=== PATIENT | female | born 2000 | race Caucasian/White ===

== ENCOUNTER 2023-10-23 09:07 | Outpatient (OUT) | payer BC, SELFPAY ==
--- NOTE | 2023-10-23 09:13 | US_ITS ---
The [address] [address] Patient Name: ÁNGEL EVANS MRN: [id number] date: 2000 Sex: F Assigned Patient Location: [facility] Current Patient Location: [facility] Accession/Order Number: [id number] Exam Date: 10/23/2023 09:13 Report Date: 10/23/2023 10:54 At the request of: PARTHA COSME Procedure: US OB transvaginal EXAMINATION: US OB transvaginal HISTORY: MISSED MENSES COMPARISON: No relevant comparison available. FINDINGS: GESTATIONAL SAC: 11 mm fluid collection within the upper endometrial cavity suspected to represent a gestational sac. YOLK SAC: Absent POLE: Absent CARDIAC: Absent UTERUS: Thickened heterogeneous endometrium. OVARIES: Right: Normal. Left: Normal. CERVIX: 3.2 cm in length and closed. CUL-DE-SAC: Normal. OTHER: None. AGE BY LMP: 8 weeks 4 days YUE BY LMP: 05/30/2026 AGE BY US CRL: Not applicable YUE BY US CRL: US/US OB transvaginal IMPRESSION: 1. Suspect very early intrauterine versus blighted ovum. Follow-up recommended. Electronically authenticated by: KAYLA DE LA O Date: 10/23/2023 10:54
== END 2023-10-23 09:08 | disposition home or self-care (01) ==
LOC: NOMS 09:07
PROVIDERS: Visit Provider Obstetrics & Gynecology
DX: N92.6 Irregular menstruation, unspecified (principal)
CPT/HCPCS: 76817

== ENCOUNTER 2023-10-23 09:51 | Outpatient (OUT) | payer BC, SELFPAY ==
[2023-10-23 12:22] LABS: HCG Quantitative 29297 mIU/mL
== END 2023-10-23 09:52 | disposition home or self-care (01) ==
LOC: LAB 09:52
PROVIDERS: Visit Provider Obstetrics & Gynecology
DX: N92.6 Irregular menstruation, unspecified (principal)
CPT/HCPCS: 36415; 76817; 84702

== ENCOUNTER 2023-10-26 09:46 | Outpatient (OUT) | payer BC, SELFPAY ==
--- OUTSIDE RECORDS SUMMARY | 2023-10-26 10:01 | XMS_ITS | CCD ---
Author Organization [facility] CliniSyri Care Team Providers Care Drawer Hardware Worker Name Role Phone AICHHOLZ, FRONT OFFICE MANAGER LLUVIA Primary Care Unavailable KOFI CURRIE Consulting Unavailable KOFI CURRIE Admitting Unavailable KOFI CURRIE Attending Unavailable AICHHOLZ, FRONT OFFICE MANAGER LLUVIA Primary Care Unavailable QUIQUE, DR KECIA Devi Consulting Unavailable KOFI CURRIE Attending Unavailable KOFI CURRIE Admitting Unavailable KOFI CURRIE Consulting Unavailable KOFI CURRIE Attending Unavailable MISC, DOCTOR Referring Unavailable AICHHOLZ, FRONT OFFICE MANAGER LLUVIA Primary Care Unavailable KOFI CURRIE Consulting Unavailable KOFI CURRIE Admitting Unavailable KARASIK, DR STRONG Attending Unavailable AICHHOLZ, FRONT OFFICE MANAGER LLUVIA Primary Care Unavailable KARASIK, DR STRONG Consulting Unavailable KARASIK, DR STRONG Admitting Unavailable KARASIK, DR STRONG Procedure Practitioner Unava ilable KOFI CURRIE Consulting Unavailable KOFI CURRIE Attending Unavailable AICHHOLZ, FRONT OFFICE MANAGER LLUVIA Primary Care Unavailable KOFI CURRIE Admitting Unavailable AICHHOLZ, FRONT OFFICE MANAGER LLUVIA Primary Care Unavailable KARASIK, DR STRONG Consulting Unavailable KARASIK, DR STRONG Admitting Unavailable KARASIK, DR STRONG Attending Unavailable KOFI CURRIE Consulting Unavailable KOFI CURRIE Attending Unavailable AICHHOLZ, FRONT OFFICE MANAGER [place]UVIA Primary Care Unavailable KOFI CURRIE Admitting Unavailable AICHHOLZ, FRONT OFFICE MANAGER [place]IA Primary Care Unavailable KOFI CURRIE Consulting Unavailable KOFI CURRIE Admitting Unavailable KOFI CURRIE Attending Unavailable AICHHOLZ, FRONT OFFICE MANAGER [place]IA Admitting Unavailable AICHHOLZ, FRONT OFFICE MANAGER [place]UVIA Attending Unavailable AICHHOLZ, FRONT OFFICE MANAGER [place]IA Consulting Unavailable AICHHOLZ, FRONT OFFICE MANAGER LLUVIA Primary Care Unavailable Unavailable Primary Care Provider Unavailabl e Unallocated, Noms Provider Primary Care Provider MD Nils Sarkar Attending Provider [phone] NO FAMILY, PHYSICIAN Primary Care Provider Unava ilable Nils Sarkar Admitting Unavailable Nils Sarkar Attending Unavailable NO FAMILY, PHYSICIAN Primary Care Unavailable Nils Sarkar Admitting Unavailable Nils Sarkar Attending Unavailable NO FAMILY, PHYSICIAN Primary Care Unavailable NILS SARKAR Attending Unavailable NILS SARKAR Attending Unavailable NILS SARKAR Attending Unavailable NILS SARKAR Attending Unavailable Medications Current Medications Medication Drug Class(es) Dates Sig (Normalized) Sig (Original) doxycycline hyclate 100 mg oral tablet (2 sources) Tetracycline-class Drug Start: 04-24-2023 take 100 mg by mouth twice daily Doxycycline Hyclate Active 100 MG PO Twice daily April 24, 2023 12:00am ibuprofen 800 mg oral tablet (2 sources) Nonsteroidal Anti-inflammatory Drug Start: 04-24-2023 take 800 mg by mouth every six hours Ibuprofen Active 800 MG PO Every 6 hours April 24, 2023 12:00am ondansetron 4 mg oral tablet (2 sources) Serotonin-3 Receptor Antagonist Start: 04-14-2023 take 1 tablet by mouth every six hours as needed for nausea and nausea and nausea ondansetron (Zofran) 4 MG tablet Indications: Nausea Take 1 tablet (4 mg) by mouth every 6 (six) hours if needed for nausea for up to 20 doses 20 tablet 0 04/14/2023 Active Completed/Discontinued Medications Medication Drug Class(es) Dates Sig (Normalized) Sig (Original) 27-1 MG tablet (3 sources) End: 04-20-2023 take 1 tablet by mouth in the morning 27-1 MG tablet Indications: Take 1 tablet by mouth in the morning. 0 04/20/2023 Discontinued (Therapy completed) take 1 tablet by mouth in the mo rning 27-1 MG tablet Indications: Take 1 tablet by mouth in the morning. 0 Active Problems Active Problems Problem Classification Problem Date Documented Date Episodic/Chronic Conditions associated with dizziness or vertigo (1 source) Dizziness and giddiness; Translations: [DIZZINESS AND GIDDINESS] Onset: 09-04-2020 Episodic Hemorrhage during ; abruptio placenta; placenta previa (2 sources) Antepartum hemorrhage; Translations: [Hemorrhage in early , unspecified] 04-20-2023 Episodic Mood disorders (1 source) Major depressive disorder, single episode, unspecified; Translations: [SOHA DEPRESS D/O SINGLE EPIS UNS] Onset: 10-05-2020 Chronic OB-related trauma to perineum and vulva (1 source) First degree perineal laceration during delivery; Translations: [FIRST DEG PERINEAL LAC DUR DELIV] Onset: 10-05-2020 Episodic Other complications of ; puerperium affecting management of mother (1 source) Obesity complicating childbirth; Translations: [OBESITY COMPLICATING CHILDBIRTH] Onset: 10-05-2020 Chronic Other complications of ; puerperium affecting management of mother (1 source) Other mental disorders complicating childbirth; Translations: [OTH MENTAL D/O COMP CHILDBIRTH] Onset: 10-05-2020 Episodic Other complications of (2 sources) Obesity complicating , third trimester; Translations: [OBESITY COMP THIRD TRI] Onset: 10-01-2020 Chronic Other complications of (4 sources) Abnormal hematological finding on screening of mother; Translations: [ABN HEMATOLOG SCREEN MOM] Onset: 09-12-2020 Episodic Other complications of (4 sources) Other specified related conditions, third trimester; Translations: [OTH SPEC PREG RELATED COND 3RD TRI] Onset: 09-06-2020 Episodic Other complications of (3 sources) Missed miscarriage; Translations: [Missed ] Onset: 04-24-2023 04-20-2023 Episodic Other female genital disorders (1 source) Vaginal bleeding; Translations: [Abnormal uterine and vaginal bleeding, unspecified] 04-29-2023 Chronic Other female genital disorders (2 sources) Abnormal uterine and vaginal bleeding, unspecified; Translations: [Other specified noninflammatory disorders of vagina] Onset: 04-29-2023 04-30-2023 Chronic Other female genital disorders (1 source) Other specified noninflammatory disorders of vagina; Translations: [OTH SPEC NONINFLAMMATORY D/O VAGINA] Onset: 09-14-2020 Episodic Other female genital disorders (2 sources) Vaginal discharge; Translations: [Other specified noninflammatory disorders of vagina] 04-20-2023 Episodic Other nutritional; endocrine; and metabolic disorders (1 source) Obesity, unspecified; Translations: [OBESITY UNSPECIFIED] Onset: 10-05-2020 Chronic Other and delivery including normal (9 sources) Encounter for routine follow-up; Translations: [Single live ] Onset: 09-10-2020 Episodic Residual codes; unclassified (1 source) 39 weeks gestation of ; Translations: [39 WEEKS GESTATION OF ] Onset: 10-05-2020 Episodic Residual codes; unclassified (1 source) 35 weeks gestation of ; Translations: [35 WEEKS GESTATION OF ] Onset: 09-04-2020 Episodic Residual codes; unclassified (1 source) 30 weeks gestation of ; Translations: [30 WEEKS GESTATION OF ] Onset: 08-24-2020 Episodic Spontaneous (1 source) Delayed or excessive hemorrhage following incomplete spontaneous ; Translations: [Delayed or excessive hemorrhage following incomplete spontaneous ] Onset: 04-29-2023 Episodic Unclassified (1 source) CONTACT W/AND (SUSP) EXPOS COVID-19; Translations: [CONTACT W/AND (SUSP) EXPOS COVID-19] Onset: 10-05-2020 Past or Other Problems Problem Classification Problem Date Documented Da te Episodic/Chronic Deficiency and other anemia (4 sources) Anemia, unspecified; Translations: [ANEMIA UNSPECIFIED] Onset: 12-17-2019 Episodic Results Test Name Value Interpretation Reference Range Facility Basophils Auto (Bld) [#/Vol] Ordered By: CHUCK Sarkar on 04-30-2023 Basophils (Bld) [#/Vol] 0.1 10*3/uL 0.0-0.2 [facility] Basophils/100 WBC Auto (Bld) Ordered By: CHUCK Sarkar on 04-30-2023 Basophils/100 WBC (Bld) 0.7 % . [facility] Choriogonadotropin.beta subu nit [Units/volume] in Serum or PlasmaOrdered By: SHANNON Sarkar on 04-30-2023 HCG.beta subunit Qn 2358.00 m[IU]/mL [facility] Comment on above: Approximate Approxim ate hCG Gestational Age Range (mIU/ml) (weeks)0.2-1 5-50 1-2 50-500 2-3 100-5,000 3-4 500-10,000 4-5 1,000-50,000 5-6 10,000-100,000 6-8 15,000-200,000 8-12 10,000-100,000 Complete Blood Count Auto Di ffon 04-30-2023 Basophils (Bld) [#/Vol] 0.1 10*3/uL Normal 0.0-0.2 [facility] Comment on above: Result Comment: PERF ORMED BY: [place] [address] PATHOLOGIST RADIO PERFORMER CHUY PALOMO M.D. Performed By: #### C BC, HCGQNT #### [facility] [address] Basophils/100 WBC (Bld) 0.7 % Normal . [facility] Comment on above: Performed By: #### C BC, HCGQNT #### [facility] [address] [place] [address] [place] Eosinophils (Bld) [#/Vol] 0.1 10*3/uL Normal 0.0-0.45 [facility] Comment on above: Performed By: #### C BC, HCGQNT #### [address] Eosinophils/100 WBC (Bld) 1.3 % Normal . [facility] Comment on above: Performed By: #### C BC, HCGQNT #### [address] Erythrocyte distribution width (RBC) [Ratio] 14.1 % Normal 11.9-15.3 [facility] Comment on above: Performed By: #### C BC, HCGQNT #### [address] Hematocrit (Bld) [Volume fraction] 35.3 % Normal 34.0-46.4 [facility] Comment on above: Performed By: #### C BC, HCGQNT #### [address] Hemoglobin (Bld) [Mass/Vol] 12.2 g/dL Normal 11.8-15.4 [facility] Comment on above: Performed By: #### C BC, HCGQNT #### [place] [address] [place] Lymphocytes (Bld) [#/Vol] 2.4 10*3/uL Normal 1.00-4.8 [facility] Comment on above: Performed By: #### C BC, HCGQNT #### [facility] [address] Lymphocytes/100 WBC (Bld) 28.7 % Normal . [facility] Comment on above: Performed By: #### C BC, HCGQNT #### [facility] [address] MCH (RBC) [Entitic mass] 27.8 pg Normal 24.7-34.3 [facility] Comment on above: Performed By: #### C BC, HCGQNT #### [address] MCV (RBC) [Entitic vol] 80.2 fL Normal 80-100 [facility] Comment on above: Performed By: #### C BC, HCGQNT #### [address] Mean Corpuscular HGB Conc 34.7 g/dL Normal 32.0-35.0 [facility] Comment on above: Performed By: #### C BC, HCGQNT #### [place] [address] [place] Monocytes (Bld) [#/Vol] 0.5 10*3/uL Normal 0.0-0.8 [facility] Comment on above: Performed By: #### C BC, HCGQNT #### [place] [address] [place] Monocytes/100 WBC (Bld) 6.3 % Normal . [facility] Comment on above: Performed By: #### C BC, HCGQNT #### [place] [address] [place] Neutrophils (Bld) [#/Vol] 5.3 10*3/uL Normal 1.8-7.7 [facility] Comment on above: Performed By: #### C BC, HCGQNT #### [place] [address] [place] Neutrophils/100 WBC (Bld) 63.0 % Normal . [facility] Comment on above: Performed By: #### C BC HCGQNT #### [address] NRBC% 0.1 /100{WBC} Normal 0-0.5 [facility] Comment on above: Performed By: #### C BC HCGQNT #### [address] Platelet mean volume (Bld) [Entitic vol] 6.7 fL Normal 6.3-10.7 [facility] Comment on above: Performed By: #### C BC HCGQNT #### [address] Platelets (Bld) [#/Vol] 317 10*3/uL Normal 150-450 [facility] Comment on above: Performed By: #### C BC HCGQNT #### [address] RBC (Bld) [#/Vol] 4.40 10*6/uL Normal 3.60-5.00 [facility] Comment on above: Performed By: #### C BC HCGQNT #### [address] WBC (Bld) [#/Vol] 8.4 10*3/uL Normal 3.8-11.6 [facility] Comment on above: Performed By: #### C BC, HCGQNT #### [place] [address] [place] Eosinophils Auto (Bld) [#/Vo l]Ordered By: CHUCK Sarkar on 04-30-2023 Eosinophils (Bld) [#/Vol] 0.1 10*3/uL 0.0-0.45 [facility] Eosinophils/100 WBC Auto (Bl d)Ordered By: CHUCK Sarkar on 04-30-2023 Eosinophils/100 WBC (Bld) 1.3 % . [facility] Erythrocyte distribution wid th Auto (RBC) [Ratio]Ordered By: CHUCK Sarkar on 04-30-2023 Erythrocyte distribution width (RBC) [Ratio] 14.1 % 11.9-15.3 [facility] HCG,Quantitativeon 4 HCG,Quantitative 2358.00 m[iU]/mL Normal [facility] Comment on above: Result Comment: Appr oximate Approximate hCG Gestational Age Range (mIU/ml) (weeks) 0.2-1 5-50 1-2 50-500 2-3 100-5,000 3-4 500-10,000 4-5 1,000-50,000 5-6 10,000-100,000 6-8 15,000-200,000 8-12 10,000-100,000 PERFORMED BY: [place] [address] PATHOLOGIST RADIO PERFORMER CHUY PALOMO M.D. Performed By: #### C BC, HCGQNT #### [facility] [address] [place] [address] Hematocrit Auto (Bld) [Volum e fraction]Ordered By: CHUCK Sarkar on 04-30-2023 Hematocrit (Bld) [Volume fraction] 35.3 % 34.0-46.4 [facility] Hemoglobin [Mass/volume] in BloodOrdered By: CHUCK Sarkar on 04-30-2023 Hemoglobin (Bld) [Mass/Vol] 12.2 g/dL 11.8-15.4 [facility] Leif 04-30-2023 L Specimen: [id number] Received: 04/30/23 Status: RUBINA Sharpe Num: [id number] Spec Type: Surgical Subm Dr: CHUCK Astorga Tissues: A Products of Conception - Spontaneous or Missed (PRODUCTS OF CONCEPT Procedures: HE/3, Gross/Micro L4 Age/ Patient Sex Location Account Attending Physician Sarah Arce 23/F N3 [id number] CHUCK Astorga SPEC NUM: [id number] RECD: 04/30/23 STATUS: RUBINA SHARPE NUM: [id number] MARY: 04/30/23- SUBM DR: CHUCK Astorga ENTERED: 04/30/23 [facility] DR: SPEC TYPE: Surgical DEPT: S ORDERED: HE/3, Gross/Micro L4 ORDERED: HE/3, Gross/Micro L4 Pathological Diagnosis Products Of Conception: Partially necrotic Decidua, Consistent With Products Of Conception. Clinical Information Retained tissue Gross Description Received in formalin labeled with the patient's name, date of and products of conception is a 5.5 x 4 x 2 cm aggregate of pink-jasmine to red-brown soft tissue and blood clot. Villous tissue is tentatively identified. tissue is not identified. Domain Architect sections focused on potential villi. Domain Architect sections are submitted in three cassettes labeled A1-A3. CPT Codes 32757 Specimen: [id number] Received: 04/30/23 Status: RUBINA Sharpe Num: [id number] Spec Type: Surgical Subm Dr: CHUCK Astorga Tissues: A Products of Conception - Spontaneous or Missed (PRODUCTS OF CONCEPT Procedures: HE/3, Gross/Micro L4 Patient: Sarah Arce [id number] (Continued) Signed (signatur e on file) Tavia Abad MD 05/05/23 2315 Normal [facility] Leukocytes [#/volume] correc bridget for nucleated erythrocytes in Blood by Automated counOrdered By: CHUCK Sarkar on 04-30-2023 WBC corrected for nucl RBC Auto (Bld) [#/Vol] 8.4 10*3/uL 3.8-11.6 [facility] Lymphocytes Auto (Bld) [#/Vo l]Ordered By: CHUCK Sarkar on 04-30-2023 Lymphocytes (Bld) [#/Vol] 2.4 10*3/uL 1.00-4.8 [facility] Lymphocytes/100 WBC Auto (Bl d)Ordered By: CHUCK Sarkar on 04-30-2023 Lymphocytes/100 WBC (Bld) 28.7 % . [facility] MCH Auto (RBC) [Entitic mass ]Ordered By: CHUCK Sarkar on 04-30-2023 MCH (RBC) [Entitic mass] 27.8 pg 24.7-34.3 [facility] MCHC Auto (RBC) [Mass/Vol]Or dered By: CHUCK Sarkar on 04-30-2023 MCHC (RBC) [Mass/Vol] 34.7 g/dL 32.0-35.0 [facility] MCV Auto (RBC) [Entitic vol] Ordered By: CHUCK Sarkar on 04-30-2023 MCV (RBC) [Entitic vol] 80.2 fL 80-100 [facility] Monocytes Auto (Bld) [#/Vol] Ordered By: CHUCK Sarkar on 04-30-2023 Monocytes (Bld) [#/Vol] 0.5 10*3/uL 0.0-0.8 [facility] Monocytes/100 WBC Auto (Bld) Ordered By: CHUCK Sarkar on 04-30-2023 Monocytes/100 WBC (Bld) 6.3 % . [facility] Neutrophils Auto (Bld) [#/Vo l]Ordered By: CHUCK Sarkar on 04-30-2023 Neutrophils (Bld) [#/Vol] 5.3 10*3/uL 1.8-7.7 [facility] Neutrophils/100 WBC Auto (Bl d)Ordered By: CHUCK Sarkar on 04-30-2023 Neutrophils/100 WBC (Bld) 63.0 % . [facility] Nucleated erythrocytes [Pres ence] in Blood by Automated countOrdered By: CHUCK Sarkar on 04-30-2023 Nucleated RBC Auto Ql (Bld) 0.1 /100{WBC} 0-0.5 [facility] Platelet mean volume Auto (B ld) [Entitic vol]Ordered By: CHUCK Sarkar on 04-30-2023 Platelet mean volume (Bld) [Entitic vol] 6.7 fL 6.3-10.7 [facility] Platelets Auto (Bld) [#/Vol] Ordered By: CHUCK Sarkar on 04-30-2023 Platelets (Bld) [#/Vol] 317 10*3/uL 150-450 [facility] RBC Auto (Bld) [#/Vol]Ordere d By: CHUCK Sarkar on 04-30-2023 RBC (Bld) [#/Vol] 4.40 10*6/uL 3.60-5.00 [facility] US transvaginalon 04-30-2023 US transvaginal [facility] [place] [address] Ultrasound Report Signed Patient: Sarah Arce MR#: [id number] : 2000 Acct:[id number] Age/Sex: 23 / F ADM Date: 04/29/23 Loc: Room: [address] [place] [address] Type: REG CLI Attending Dr: Nils Sarkar MD Ordering Provider: CHUCK Astorga Date of Service: 04/30/23 US/US pelvic complete: D and C scheduled ([id number]) US/US transvaginal: PRODUCTS OF CONCEPTION WITH PRIOR D AND c Copies to: CHUCK Astorga TRANSABDOMINAL AND TRANSVAGINAL PELVIC ULTRASOUND FINDINGS: The uterus measures 10.4 x 5.5 x 6.3 cm. No uterine lesion identified. The endometrium has a total combined thickness of 22mm. Endometrium is heterogeneous with vascularity. The RIGHT ovary measures 2.4 x 1.1 x 2.5 cm LEFT ovary measures 3.0 x 1.4 x 2.3 cm Bilateral ovarian blood flow identified. No free fluid identified. There is no adnexal mass identified. US/US pelvic complete IMPRESSION: 22 mm thick endometrial complex. Impression dictated by: Usama Peña M.D.04/30/2023 9:37 AM Dictation Location: [place] [address] Tech: Anca Carpio Transcribed By: GISSEL 04/30/2337 Dictated By: Usama Peña DO 04/30/23 0933 Signed By: 04/30/23 0937 Normal [facility] WBC Auto (Bld) [#/Vol]Ordere d By: CHUCK Sarkar on 04-30-2023 WBC (Bld) [#/Vol] 8.4 10*3/uL 3.8-11.6 [facility] ABO/Rh Retypeon 04-29-2023 ABO/RH Recheck Result Positive Normal [facility] Comment on above: Result Comment: PERF ORMED BY: [facility] [address] [place] [address] PATHOLOGIST RADIO PERFORMER CHUY PALOMO M.D. Complete Blood Count Auto Di ffon 04-29-2023 Basophils (Bld) [#/Vol] 0.0 10*3/uL Normal 0.0-0.2 [facility] Comment on above: Result Comment: PERF ORMED BY: [place] [address] PATHOLOGIST RADIO PERFORMER CHUY PLAOMO M.D. Performed By: #### H CGQNT, CBC #### [facility] [address] [place] [address] Basophils/100 WBC (Bld) 0.3 % Normal . [facility] Comment on above: Performed By: #### H CGQNT, CBC #### [facility] [address] [place] [address] Eosinophils (Bld) [#/Vol] 0.2 10*3/uL Normal 0.0-0.45 [facility] Comment on above: Performed By: #### H CGQNT, CBC #### [address] Eosinophils/100 WBC (Bld) 1.1 % Normal . [facility] Comment on above: Performed By: #### H CGQNT, CBC #### [facility] [address] [place] [address] Erythrocyte distribution width (RBC) [Ratio] 13.9 % Normal 11.9-15.3 [facility] Comment on above: Performed By: #### H CGQNT, CBC #### [address] Hematocrit (Bld) [Volume fraction] 39.8 % Normal 34.0-46.4 [facility] Comment on above: Performed By: #### H CGQNT, CBC #### [facility] [address] [place] [address] [place] Hemoglobin (Bld) [Mass/Vol] 13.3 g/dL Normal 11.8-15.4 [facility] Comment on above: Performed By: #### H CGQNT, CBC #### [facility] [address] [place] [address] [place] Lymphocytes (Bld) [#/Vol] 2.3 10*3/uL Normal 1.00-4.8 [facility] Comment on above: Performed By: #### H CGQNT, CBC #### [facility] [address] Lymphocytes/100 WBC (Bld) 17.0 % Normal . [facility] Comment on above: Performed By: #### H CGQNT, CBC #### [facility] [address] MCH (RBC) [Entitic mass] 27.0 pg Normal 24.7-34.3 [facility] Comment on above: Performed By: #### H CGQNT, CBC #### [address] MCV (RBC) [Entitic vol] 80.8 fL Normal 80-100 [facility] Comment on above: Performed By: #### H CGQNT, CBC #### [address] Mean Corpuscular HGB Conc 33.5 g/dL Normal 32.0-35.0 [facility] Comment on above: Performed By: #### H CGQNT, CBC #### [place] [address] [place] Monocytes (Bld) [#/Vol] 0.5 10*3/uL Normal 0.0-0.8 [facility] Comment on above: Performed By: #### H CGQNT, CBC #### [place] [address] [place] Monocytes/100 WBC (Bld) 4.0 % Normal . [facility] Comment on above: Performed By: #### H CGQNT, CBC #### [facility] [address] [place] [address] [place] Neutrophils (Bld) [#/Vol] 10.6 10*3/uL High 1.8-7.7 [facility] Comment on above: Performed By: #### H CGQNT, CBC #### [place] [address] [place] Neutrophils/100 WBC (Bld) 77.6 % Normal . [facility] Comment on above: Performed By: #### H CGQNT, CBC #### [address] NRBC% 0.2 /100{WBC} Normal 0-0.5 [facility] Comment on above: Performed By: #### H CGQNT, CBC #### [address] Platelet mean volume (Bld) [Entitic vol] 7.0 fL Normal 6.3-10.7 [facility] Comment on above: Performed By: #### H CGQNT, CBC #### [address] Platelets (Bld) [#/Vol] 369 10*3/uL Normal 150-450 [facility] Comment on above: Performed By: #### H CGQNT, CBC #### [address] RBC (Bld) [#/Vol] 4.93 10*6/uL Normal 3.60-5.00 [facility] Comment on above: Performed By: #### H CGQNT, CBC #### [address] WBC (Bld) [#/Vol] 13.6 10*3/uL High 3.8-11.6 [facility] Comment on above: Performed By: #### H CGQNT, CBC #### [address] HCG,Quantitativeon 4 HCG,Quantitative 3230.00 m[iU]/mL Normal [facility] Comment on above: Result Comment: Appr oximate Approximate hCG Gestational Age Range (mIU/ml) (weeks) 0.2-1 5-50 1-2 50-500 2-3 100-5,000 3-4 500-10,000 4-5 1,000-50,000 5-6 10,000-100,000 6-8 15,000-200,000 8-12 10,000-100,000 PERFORMED BY: [address] [place] [address] PATHOLOGIST RADIO PERFORMER CHUY PALOMO M.D. Performed By: #### H CGQNT, CBC #### [facility] [address] [place] [id number] [place] Type and Screenon 04-29-2023 ABO and Rh group Nom (Bld) Blood group A Rh(D) positive Normal [facility] Leif 04-24-2023 L Specimen: [id number] Received: 04/24/23 Status: RUBINA Renahun Num: [id number] Spec Type: Surgical Subm Dr: CHUCK Astorga Tissues: A Products of Conception - Spontaneous or Missed (POC) Procedures: HE/3, Gross/Micro L4 Age/ Patient Sex Location Account Attending Physician Sarah Arce 23/F [place] [id number] MICHELE AstorgaS SPEC NUM: [id number] RECD: 04/24/23 STATUS: RUBINA SHARPE NUM: [id number] MARY: 04/24/23- SUBM DR: CHUCK Astorga ENTERED: 04/24/23 [facility] DR: SPEC TYPE: Surgical DEPT: S ENTERED BY: [id number] RECV BY: [id number] ORDERED: HE/3, Gross/Micro L4 ORDERED: HE/3, Gross/Micro L4 Pathological Diagnosis Products Of Conception: Immature Chorionic Villi And Tissues, Consistent With Products Of Conception. Clinical Information Retained products of conception Gross Description Received in formalin labeled with the patient's name, date of and products of conception is a 12 x 7 x 2.5 cm aggregate of pink-jasmine to red-brown soft tissue. Villous tissue and tissue are identified. Among the tissue fragments is a foot length of 0.7 cm from heel-to-toe. Domain Architect sections are submitted in 3 cassettes as follows: A1-A2 - Villous tissue A3 - tissue CPT Codes 51459 Specimen: [id number] Received: 04/24/23-1156 Status: RUBINA Sharpe Num: [id number] Spec Type: Surgical Subm Dr: Nils Sarkar MD-NOMS Tissues: A Products of Conception - Spontaneous or Missed (POC) Procedures: HE/3, Michael/Lydia L4 Patient: Sarah Arce [id number] (Continued) Signed (signatur e on file) Tavia Abad MD 04/28/232320 [facility] CBC AUTO DIFFon 10-02-2020 BASO # 0.0 103/ul Normal 0.0-0.1 [facility] Comment on above: Performed By: #### U LYDIA, UAIND #### [facility] [address] [place] [address] Vandana Indira Basophils/100 WBC (Bld) 0.1 % Critically low 0.2-2.0 [facility] Comment on above: Performed By: #### U MICRO, UACSIND #### [facility] [address] [place] [address] Vandana Indira EO # 0.0 103/ul Normal 0.0-0.7 [facility] Comment on above: Performed By: #### U MICRO, UACSIND #### [facility] [address] [place] [address] Vandana Indira Eosinophils/100 WBC (Bld) 0.0 % Critically low 0.9-7.0 [facility] Comment on above: Performed By: #### U MICRO, UACSIND #### [facility] [address] [place] [address] Vandanadave Jacobson Erythrocyte distribution width (RBC) [Ratio] 15.9 % Critically high 11.0-15.0 [facility] Comment on above: Performed By: #### U MICRO, UACSIND #### [facility] [address] [place] [address] Vandana Indira Hematocrit (Bld) [Volume fraction] 33.3 % Critically low 36.0-48.0 [facility] Comment on above: Performed By: #### U MICRO, UACSIND #### [facility] [address] [place] [address] Vandana Indira Hemoglobin (Bld) [Mass/Vol] 11.2 g/dL Critically low 12.0-16.0 [facility] Comment on above: Performed By: #### U MICRO, UACSIND #### [facility] [address] [place] [address] Vandana Indira IG # 0.07 10e3/ul Critically high 0.00-0.03 [facility] Comment on above: Performed By: #### U MICRO, UACSIND #### [facility] [address] [place] [address] Vandana Indira IG % 0.4 % Normal 0.0-0.5 [facility] Comment on above: Performed By: #### U MICRO, UACSIND #### [facility] [address] [id number] Vandana Indira LYMPH # 1.9 103/ul Normal 1.2-3.8 [facility] Comment on above: Performed By: #### U MICRO, UACSIND #### [facility] [address] [id number] Vandana Indira Lymphocytes/100 WBC (Bld) 11.4 % Critically low 20.5-60.0 [facility] Comment on above: Performed By: #### U MICRO, UACSIND #### [facility] [address] [id number] Vandana Indira MANUAL DIFF REQ NO Normal [facility] Comment on above: Performed By: #### U MICRO, UACSIND #### [facility] [address] [place], [place] [id number] Vandana Indira MCH (RBC) [Entitic mass] 27.7 pg Normal 26.7-34.0 [facility] Comment on above: Performed By: #### U MICRO, UACSIND #### [facility] [address] [address] Vandana Indira MCHC (RBC) [Mass/Vol] 33.6 g/dL Normal 29.9-35.2 [facility] Comment on above: Performed By: #### U MICRO, UACSIND #### [facility] [address] [place], [place] [id number] Vandana Indira MCV (RBC) [Entitic vol] 82.4 fL Normal 81.0-99.0 [facility] Comment on above: Performed By: #### U MICRO, UACSIND #### [facility] [address] [id number] Vandana Indira MONO # 1.0 103/ul Critically high 0.3-0.8 [facility] Comment on above: Performed By: #### U MICRO, UACSIND #### [facility] [address] [address] Vandana Indira Monocytes/100 WBC (Bld) 6.3 % Normal 1.7-12.0 [facility] Comment on above: Performed By: #### U MICRO, UACSIND #### [facility] [address] [id number] Vandana Jacobson NEUT # 13.4 103/ul Critically high 1.4-6.5 [facility] Comment on above: Performed By: #### U MICRO, UACSIND #### [facility] [address] [id number] Vandana Jacobson Neutrophils/100 WBC (Bld) 81.8 % Critically high 43.0-75.0 [facility] Comment on above: Performed By: #### U MICRO, UACSIND #### [facility] [address] [place], [place] [id number] Vandana Jacobson Platelet mean volume (Bld) [Entitic vol] 10.3 fL Normal 9.5-13.5 [facility] Comment on above: Performed By: #### U MICRO, UACSIND #### [facility] [address] [place], [place] [id number] Vandana Jacobson PLT 202 103/ul Normal 150-450 [facility] Comment on above: Performed By: #### U MICRO, UACSIND #### [facility] [address] [place], [place] [id number] Vandana Jacobson RBC 4.04 106/ul Critically low 4.20-5.40 [facility] Comment on above: Performed By: #### U MICRO, UACSIND #### [facility] [address] [place], [place] [id number] Vandana Jacobson WBC 16.4 103/ul Critically high 4.0-11.0 [facility] Comment on above: Performed By: #### U MICRO, UACSIND #### [facility] [address] [place], [place] [id number] Vandana Jacobson ASYMPTOMATIC COVID-19 ANTIGE Non 10-01-2020 EUA Statement SEE BELOW Normal [facility] Comment on above: Result Comment: This test has not been FDA cleared or approved, but has been authorized by the FDA under an Emergency Use Authorization (EUA) for use by authorized laboratories certified under CLIA that meet the requirements to perform moderate or high complexity testing. This test has been authorized only for the detection of proteins from SARS-CoV-2, not for any other viruses or pathogens. The emergency use of this test is authorized for the duration of the declaration that circumstances exist justifying the authorization of emergency use of in vitro diagnostic tests for detection and/or diagnosis of Covid-19 under section 564(b)(1) of the Act, 21 U.S.C. 360bbb-3(b)(1), unless the declaration is terminated or authorization is revoked sooner. Performed By: #### C VDAGA #### [facility] [address] [place] [address] Vandana Jacobson SARS-CoV-2 (COVID-19) RNA RAMA+probe Ql (Unsp spec) Negative Normal NEGATIVE [facility] Comment on above: Result Comment: Nega tive results are presumptive. They do not preclude infection and should not be used as the sole basis for treatment decisions. Additional confirmatory testing by a molecular method should be considered. Performed By: #### C VDAGA #### [facility] [address] [place] [address] Vandana Indira CBC AUTO DIFFon 10-01-2020 BASO # 0.0 103/ul Normal 0.0-0.1 [facility] Comment on above: Performed By: #### D RUGRPD #### [facility] [address] [place] [address] Vandana Indira Basophils/100 WBC (Bld) 0.1 % Critically low 0.2-2.0 [facility] Comment on above: Performed By: #### D RUGRPD #### [facility] [address] [place] [address] Vandana Indira EO # 0.0 103/ul Normal 0.0-0.7 [facility] Comment on above: Performed By: #### D RUGRPD #### [facility] [address] [place], [place] [id number] Vandana Indira Eosinophils/100 WBC (Bld) 0.1 % Critically low 0.9-7.0 [facility] Comment on above: Performed By: #### D RUGRPD #### [facility] [address] [id number] Vandana Indira Erythrocyte distribution width (RBC) [Ratio] 15.8 % Critically high 11.0-15.0 [facility] Comment on above: Performed By: #### D RUGRPD #### [facility] [address] [place], [place] [phone] Vandana Indira Hematocrit (Bld) [Volume fraction] 40.2 % Normal 36.0-48.0 [facility] Comment on above: Performed By: #### D RUGRPD #### [facility] [address] [place], [place] [address] Vandana Indira Hemoglobin (Bld) [Mass/Vol] 13.4 g/dL Normal 12.0-16.0 [facility] Comment on above: Performed By: #### D RUGRPD #### [facility] [address] [place], [place] [address] Vandana Indira IG # 0.04 10e3/ul Critically high 0.00-0.03 [facility] Comment on above: Performed By: #### D RUGRPD #### [facility] [address] [place], [place] [address] Vandana Indira IG % 0.4 % Normal 0.0-0.5 [facility] Comment on above: Performed By: #### D RUGRPD #### [facility] [address] [place], [place] [address] Vandana Indira LYMPH # 1.5 103/ul Normal 1.2-3.8 [facility] Comment on above: Performed By: #### D RUGRPD #### [facility] [address] [place], [place] [address] Vandana Indira Lymphocytes/100 WBC (Bld) 14.7 % Critically low 20.5-60.0 [facility] Comment on above: Performed By: #### D RUGRPD #### [facility] [address] [place], [place] [address] Vandana Indira MANUAL DIFF REQ NO Normal [facility] Comment on above: Performed By: #### D RUGRPD #### [facility] [address], [place] [address] Vandana Jacobson MCH (RBC) [Entitic mass] 27.3 pg Normal 26.7-34.0 [facility] Comment on above: Performed By: #### D RUGRPD #### [facility] [address], [place] [address] Vandana Jacobson MCHC (RBC) [Mass/Vol] 33.3 g/dL Normal 29.9-35.2 [facility] Comment on above: Performed By: #### D RUGRPD #### [facility] [address], [place] [address] Vandanadave Jacobson MCV (RBC) [Entitic vol] 82.0 fL Normal 81.0-99.0 [facility] Comment on above: Performed By: #### D RUGRPD #### [facility] [address] [place], [place] [address] Vandana Jacobson MONO # 0.5 103/ul Normal 0.3-0.8 [facility] Comment on above: Performed By: #### D RUGRPD #### [facility] [address] [place], [place] [address] Vandana Jacobson Monocytes/100 WBC (Bld) 5.2 % Normal 1.7-12.0 [facility] Comment on above: Performed By: #### D RUGRPD #### [facility] [address] [place], [place] [address] Vandana Jacobson NEUT # 8.1 103/ul Critically high 1.4-6.5 [facility] Comment on above: Performed By: #### D RUGRPD #### [facility] [address] [place], [place] [address] Vandana Indira Neutrophils/100 WBC (Bld) 79.5 % Critically high 43.0-75.0 [facility] Comment on above: Performed By: #### D RUGRPD #### [facility] [address] [id number] Vandanadave Jacobson Platelet mean volume (Bld) [Entitic vol] 10.6 fL Normal 9.5-13.5 [facility] Comment on above: Performed By: #### D RUGRPD #### [facility] [address] [address] Vandana Indira PLT 256 103/ul Normal 150-450 [facility] Comment on above: Performed By: #### D RUGRPD #### [facility] [address] [address] Vandana Indira RBC 4.90 106/ul Normal 4.20-5.40 [facility] Comment on above: Performed By: #### D RUGRPD #### [facility] [address] [address] Vandana Indira WBC 10.2 103/ul Normal 4.0-11.0 [facility] Comment on above: Performed By: #### Ceci RUGRPD #### [facility] [address] [place] [address] Vandana Indira DRUG SCREEN RAPID (URINE)on 10-01-2020 AMP Negative Normal NEGATIVE [facility] Comment on above: Performed By: #### Ceci RUGRPD #### [facility] [address] [address] Vandana Indira BAR Negative Normal NEGATIVE [facility] Comment on above: Performed By: #### Ceci RUGRPD #### [facility] [address] [place] [address] Vandana Indira BUP Negative Normal NEGATIVE [facility] Comment on above: Performed By: #### Ceci RUGRPD #### [facility] [address] [place] [address] Vandana Indira BZO Negative Normal NEGATIVE [facility] Comment on above: Performed By: #### Ceci RUGRPD #### [facility] [address] [place] [address] Vandana Indira ROLANDA Negative Normal NEGATIVE [facility] Comment on above: Performed By: #### D RUGRPD #### [facility] [address] [place] [address] Vandana Indira CUT-OFFS SEE BELOW Normal [facility] Comment on above: Result Comment: AMP (Amphetamine): 500ng/mL, BAR (Barbituates): 200 ng/mL, BZO (Benzodiazepines): 150 ng/mL, BUP (Buprenorphine): 10 ng/mL, ROLANDA (Cocaine): 150 ng/mL, mAMP (Methamphetamine): 500 ng/mL, MTD (Methadone): 200 ng/mL, OPI (Opiates): 100 ng/mL, OXY (Oxycodone): 100 ng/mL, PCP (Phencyclidine): 25 ng/mL, PPX (Propoxyphene): 300 ng/mL, THC (Cannabinoids): 50 ng/mL, TCA (Trycyclic Antidepressants): 300 ng/mL Performed By: #### D RUGRPD #### [facility] [address] [place] [address] DRUG CUT HEADER DRUG CLASS TEST SYSTEM CUT-OFF CONCENTRATIONS ARE FOLLOWS: Normal [facility] Comment on above: Performed By: #### D RUGRPD #### [facility] [address] [place] [address] Vandana Indira mAMP Negative Normal NEGATIVE [facility] Comment on above: Performed By: #### D RUGRPD #### [facility] [address] [place] [address] Vandana Indira MTD Negative Normal NEGATIVE [facility] Comment on above: Performed By: #### D RUGRPD #### [facility] [address] [place] [address] Vandana Indira OPI Negative Normal NEGATIVE [facility] Comment on above: Performed By: #### D RUGRPD #### [facility] [address] [place] [address] Vandana Indira OXY Negative Normal NEGATIVE [facility] Comment on above: Performed By: #### D RUGRPD #### [facility] [address] [place] [address] Indira PCP Negative Normal NEGATIVE [facility] Comment on above: Performed By: #### D RUGRPD #### [facility] [address] [place] [address] Vandana Indira PPX Negative Normal NEGATIVE [facility] Comment on above: Performed By: #### D RUGRPD #### [facility] [address] [place] [address] Vandana Jacobson TCA Negative Normal NEGATIVE [facility] Comment on above: Performed By: #### D RUGRPD #### [facility] [address] [id number] Vandana Jacobson THC Negative Normal NEGATIVE [facility] Comment on above: Performed By: #### D RUGRPD #### [facility] [address], [place] [address] Vandana Jacobson TYPE AND SCREENon 10-01-2020 TYPE AND SCREEN Negative Normal [facility] Comment on above: Performed By: #### D RUGRPD #### [facility] [address], [place] [address] Vandana Jacobson US PREG GROWTHon 09-12-2020 US PREG GROWTH EXAMINATION: US PREG GROWTH HISTORY: Abnormal findings on screening of mother COMPARISON: No relevant comparison available. FINDINGS: Heart Rate: 146 Amniotic Fluid Volume: 13.5 cm Number: 1.0 Position: Cephalic presentation, longitudinal lie Maximum Vertical Pocket: 6.0 cm cm 3.4 cm cm 3.2 cm cm 0.9 cm cm BIOMETRY: BPD: 9.3 cm cm; 37 weeks 4 days; HC: 32.9 cmcm; 37 weeks 3 days AC: 33.5 cm cm; 37 weeks 2 days FL: 7.0 cm cm; 35 weeks 6 days; EFW: 6 lbs. 13 oz., 58% FL/AC: 0.095303 FL/BPD: 0.577402 HC/AC: 0.419745 GESTATIONAL AGE: Age by EDC: 36 weeks 6 days YUE by EDC: 10/04/2020 Age by US: 37 weeks 0 days YUE by US: 10/03/2020 IMPRESSION: Normal interval growth Electronically authenticated by: KECIA LEI Date: 2020-09-12 13:13 Normal [facility] HEMOGLOBINOPATHY FRACTIONATI ON CASCADEon 09-11-2020 HGB A 97.4 % Normal 96.4-98.8 [facility] Comment on above: Performed By: #### U MICRO, UACSIND #### [facility] [address] [address] Vandana Jacobson HGB A2 2.6 % Normal 1.8-3.2 [facility] Comment on above: Performed By: #### U MICRO, UACSIND #### [facility] [address] [place] [address] Vandana Jacobson HGB F 0.0 % Normal 0.0-2.0 [facility] Comment on above: Performed By: #### U MICRO, UACSIND #### [facility] [address] [address] Vandana Jacobson HGB S 0.0 % Normal 0.0 [facility] Comment on above: Performed By: #### U MICRO, UACSIND #### [facility] [address] [place], [place] [id number] Vandana Jacobson Interpretation: Comment Normal [facility] Comment on above: Result Comment: Norm al hemoglobin present; no hemoglobin variant or thalassemia observed. Performed By: #### U MICRO, UACSIND #### [facility] [address] [place] [address] Vandana Jacobson CBC AUTO DIFFon 09-10-2020 BASO # 0.0 103/ul Normal 0.0-0.1 [facility] Comment on above: Performed By: #### C BC #### [facility] [address] [place] [address] Vandana Jacobson Basophils/100 WBC (Bld) 0.1 % Critically low 0.2-2.0 [facility] Comment on above: Performed By: #### C BC #### [facility] [address] [place] [address] Vandana Jacobson EO # 0.0 103/ul Normal 0.0-0.7 [facility] Comment on above: Performed By: #### C BC #### [facility] [address] [place] [address] Vandana Jacobson Eosinophils/100 WBC (Bld) 0.4 % Critically low 0.9-7.0 [facility] Comment on above: Performed By: #### C BC #### [facility] [address] [place] [address] Vandana Lien Erythrocyte distribution width (RBC) [Ratio] 16.0 % Critically high 11.0-15.0 [facility] Comment on above: Performed By: #### C BC #### [facility] [address] [place] [address] Vandana Jacobson Hematocrit (Bld) [Volume fraction] 36.5 % Normal 36.0-48.0 [facility] Comment on above: Performed By: #### C BC #### [facility] [address] [place] [address] Vandana Jacobson Hemoglobin (Bld) [Mass/Vol] 12.2 g/dL Normal 12.0-16.0 [facility] Comment on above: Performed By: #### C BC #### [facility] [address] [place] [address] Vandana Jacobson IG # 0.07 10e3/ul Critically high 0.00-0.03 [facility] Comment on above: Performed By: #### C BC #### [facility] [address] [place] [address] Vandana Jacobson IG % 0.9 % Critically high 0.0-0.5 [facility] Comment on above: Performed By: #### C BC #### [facility] [address] [place] [address] Vandana Jacobson LYMPH # 1.9 103/ul Normal 1.2-3.8 [facility] Comment on above: Performed By: #### C BC #### [facility] [address] [place] [address] Vandana Jacobson Lymphocytes/100 WBC (Bld) 23.7 % Normal 20.5-60.0 [facility] Comment on above: Performed By: #### C BC #### [facility] [address] [place], [place] [id number] Vandana Jacobson MANUAL DIFF REQ NO Normal [facility] Comment on above: Performed By: #### C BC #### [facility] [address] [place], [place] [address] Vandana Jacobson MCH (RBC) [Entitic mass] 27.4 pg Normal 26.7-34.0 [facility] Comment on above: Performed By: #### C BC #### [facility] [address], [place] [address] Vandanadave Jacobson MCHC (RBC) [Mass/Vol] 33.4 g/dL Normal 29.9-35.2 [facility] Comment on above: Performed By: #### C BC #### [facility] [address], [place] [address] Vandana Indira MCV (RBC) [Entitic vol] 82.0 fL Normal 81.0-99.0 [facility] Comment on above: Performed By: #### C BC #### [facility] [address] [id number] Vandana Indira MONO # 0.7 103/ul Normal 0.3-0.8 [facility] Comment on above: Performed By: #### C BC #### [facility] [address] [place], [place] [address] Vandana Indira Monocytes/100 WBC (Bld) 8.8 % Normal 1.7-12.0 [facility] Comment on above: Performed By: #### C BC #### [facility] [address] [place], [place] [address] Vandana Indira NEUT # 5.3 103/ul Normal 1.4-6.5 [facility] Comment on above: Performed By: #### C BC #### [facility] [address] [place], [place] [address] Vandana Indira Neutrophils/100 WBC (Bld) 66.1 % Normal 43.0-75.0 [facility] Comment on above: Performed By: #### C BC #### [facility] [address] [place] [address] Vandana Indira Platelet mean volume (Bld) [Entitic vol] 11.6 fL Normal 9.5-13.5 [facility] Comment on above: Performed By: #### C BC #### [facility] [address] [id number] Vandana Indira PLT 221 103/ul Normal 150-450 [facility] Comment on above: Performed By: #### C BC #### [facility] [address] [place] [address] Vandana Jacobson RBC 4.45 106/ul Normal 4.20-5.40 [facility] Comment on above: Performed By: #### C BC #### [facility] [address] [place] [address] Vandana Jacobson WBC 8.1 103/ul Normal 4.0-11.0 [facility] Comment on above: Performed By: #### C BC #### [facility] [address] [place] [address] Vandana Jacobson VAGINITIS/VAGINOSIS DNA PROB Miller 09-08-2020 Nichole species Negative Normal Negative [facility] Comment on above: Performed By: #### V AGINT #### [facility] [address] [place] [address] Vandana Jacobson Gardnerella vaginalis Negative Normal Negative [facility] Comment on above: Performed By: #### V AGINT #### [facility] [address] [place] [address] Vandana Jacobson Trichomonas vaginalis Negative Normal Negative [facility] Comment on above: Performed By: #### V AGINT #### [facility] [address] [place] [address] Vandana Jacobson CHLAMYDIA/GONOCOCCUS RAMA (SW AB/URINE/PAPon 09-07-2020 Chlamydia trachomatis, RAMA Negative Normal Negative [facility] Comment on above: Performed By: #### D RUGRPD #### [facility] [address] [place] [address] Vandana Jacobson Neisseria gonorrhoeae, RAMA Negative Normal Negative [facility] Comment on above: Performed By: #### D RUGRPD #### [facility] [address] [place], [place] [id number] Vandana Jacobson GROUP B STREP CULTUREon S. agalactiae Ag Ql (Unsp spec) Culture Observations: NEGATIVE FOR GROUP B STREPTOCOCCUS. Normal [facility] Comment on above: Performed By: #### D RUGRPD #### [facility] [address] [place] [address] Vandana Indira CULTURE URINEon 08-31-2020 CULTURE URINE Culture Observations: LIGHT GROWTH OF MIXED GENITAL TEDDY. NO POTENTIAL PATHOGENS SEEN. Normal [facility] Comment on above: Performed By: #### D RUGRPD #### [facility] [address] [place] [address] Vandana Indira UA (CLEAN/CATCH) PRINTING EQUIPMENT MECHANIC APPRENTICE/MICRO I F IND.on 08-31-2020 Bilirubin Ql (U) Negative Normal NEGATIVE [facility] Comment on above: Performed By: #### U MICRO, UACSIND #### [facility] [address] [place] [address] Vandana Indira Clarity (U) SL CLOUDY Abnormal CLEAR [facility] Comment on above: Performed By: #### U MICRO, UACSIND #### [facility] [address] [place] [address] Vandana Indira Color (U) LT. YELLOW Normal YELLOW [facility] Comment on above: Performed By: #### U MICRO, UACSIND #### [facility] [address] [place] [address] Vandana Indira Glucose Ql (U) Negative Normal NEGATIVE [facility] [place] [facility] Comment on above: Performed By: #### U MICRO, UACSIND #### [facility] [address] [place] [address] Vandana Indira Hemoglobin Ql (U) Negative Normal NEGATIVE [facility] Comment on above: Performed By: #### U MICRO, UACSIND #### [facility] [address] [place] [address] Vandana Indira Ketones Ql (U) 15 mg/dl Abnormal NEGATIVE [facility] Comment on above: Performed By: #### U MICRO, UACSIND #### [facility] [address] [place] [address] Vandana Indira LEUKOCYTES SMALL Abnormal NEGATIVE [facility] Comment on above: Performed By: #### U MICRO, UACSIND #### [facility] [address] [place] [address] Vandana Indira Nitrite Ql (U) Negative Normal NEGATIVE [facility] Comment on above: Performed By: #### U MICRO, UACSIND #### [facility] [address] [place] [address] Vandanadave Jacobson pH (U) 7.0 [pH] Normal 5-9 [facility] Comment on above: Performed By: #### U MICRO, UACSIND #### [facility] [address] [place] [address] Vandana Jacobson SPEC GRAVITY 1.015 Normal 1.005-<=1.025 [facility] Comment on above: Performed By: #### U MICRO, UACSIND #### [facility] [address] [place] [address] Vandanadave Jacobson UA PROTEIN Negative Normal NEGATIVE/ TRACE [facility] Comment on above: Performed By: #### U MICRO, UACSIND #### [facility] [address] [place] [address] Vandana Jacobson UR MICRO IND INDICATED Normal [facility] Comment on above: Performed By: #### U MICRO, UACSIND #### [facility] [address] [place] [address] Vandana Jacobson Urobilinogen Qn (U) 0.2 {Richard'U}/dL Normal 0.2 - 1. 0 [facility] Comment on above: Performed By: #### U MICRO, UACSIND #### [facility] [address] [place] [address] Vandanadave Jacobson URINE MICROSCOPIC ONLYon BACTERIA SMALL Abnormal NONE SEEN [facility] Comment on above: Performed By: #### U MICRO, UACSIND #### [facility] [address] [place] [address] Vandana Jacobson Bacteria identified Cx Nom (U) INDICATED Normal [facility] Comment on above: Performed By: #### U MICRO, UACSIND #### [facility] [address] [place] [address] Vandana Indira CAST NONE SEEN Normal NONE SEEN [facility] Comment on above: Performed By: #### U MICRO, UACSIND #### [facility] [address] [place] [address] Vandana Indira Crystals LM Nom (Urine sed) NONE SEEN Normal NONE SEEN [facility] Comment on above: Performed By: #### U MICRO, UACSIND #### [facility] [address] [place] [address] Vandana Indira Epithelial cells LM Ql (Urine sed) MODERATE Abnormal NONE SEEN /RARE [facility] Comment on above: Performed By: #### U MICRO, UACSIND #### [facility] [address] [place] [address] Vandana Indira MUCOUS NONE SEEN Normal NONE SEEN [facility] Comment on above: Performed By: #### U MICRO, UACSIND #### [facility] [address] [place] [address] Vandana Indira RBC NONE SEEN Abnormal 0-2 [facility] Comment on above: Performed By: #### U MICRO, UACSIND #### [facility] [address] [place] [address] Vandana Indira WBC NONE SEEN Normal NONE SEEN [facility] Comment on above: Performed By: #### U MICRO, UACSIND #### [facility] [address] [place], [place] [id number] Vandana Indira CULTURE URINEon 08-01-2020 CULTURE URINE Culture Observations: LIGHT GROWTH OF MIXED GENITAL TEDDY. NO POTENTIAL PATHOGENS SEEN. Normal [facility] Comment on above: Performed By: #### U RCX #### [facility] [address] [place] [address] Vandana Indira UA RANDOM W/MICROSCOPICon BACTERIA TRACE Abnormal NONE SEEN [facility] Comment on above: Performed By: #### U AMIC #### [facility] [address] [place] [address] Vandana Idnira Bilirubin Ql (U) Negative Normal NEGATIVE [facility] Comment on above: Performed By: #### U AMIC #### [facility] [address] [place] [address] Vandana Indira CAST NONE SEEN Normal NONE SEEN [facility] Comment on above: Performed By: #### U AMIC #### [facility] [address] [place], [place] [address] Vandana Indira Clarity (U) CLEAR Normal CLEAR [facility] Comment on above: Performed By: #### U AMIC #### [facility] [address] [id number] Vandana Indira Color (U) LT. YELLOW Normal YELLOW [facility] Comment on above: Performed By: #### U AMIC #### [facility] [address] [id number] Vandana Indira Crystals LM Nom (Urine sed) NONE SEEN Normal NONE SEEN [facility] Comment on above: Performed By: #### U AMIC #### [facility] [address] [address] Vandana Indira Epithelial cells LM Ql (Urine sed) FEW Abnormal NONE SEEN /RARE [facility] Comment on above: Performed By: #### U AMIC #### [facility] [address] [place] [address] Vandana Indira Glucose Ql (U) Negative Normal NEGATIVE [facility] Comment on above: Performed By: #### U AMIC #### [facility] [address] [place] [address] Vandana Indira Hemoglobin Ql (U) Negative Normal NEGATIVE [facility] Comment on above: Performed By: #### U AMIC #### [facility] [address] [place] [address] Vandana Indira Ketones Ql (U) Negative Normal NEGATIVE [facility] Comment on above: Performed By: #### U AMIC #### [facility] [address] [place] [address] Vandana Indira LEUKOCYTES Negative Normal NEGATIVE [facility] Comment on above: Performed By: #### U AMIC #### [facility] [address] [place], [place] [id number] Vandana Indira MUCOUS NONE SEEN Normal NONE SEEN [facility] Comment on above: Performed By: #### U AMIC #### [facility] [address] [place], [place] [id number] Vandana Indira Nitrite Ql (U) Negative Normal NEGATIVE [facility] Comment on above: Performed By: #### U AMIC #### [facility] [address] [place], [place] [id number] Vandanadave Jacobson pH (U) 7.5 [pH] Normal 5-9 [facility] Comment on above: Performed By: #### U AMIC #### [facility] [address] [place] [address] Vandanadave Jacobson RBC 0-2 Normal 0-2 [facility] Comment on above: Performed By: #### U AMIC #### [facility] [address] [place] [address] Vandana Jacobson SPEC GRAVITY 1.015 Normal 1.005-<=1.025 [facility] Comment on above: Performed By: #### U AMIC #### [facility] [address] [place] [address] Vandanadave Jacobson UA PROTEIN Negative Normal NEGATIVE/ TRACE [facility] Comment on above: Performed By: #### U AMIC #### [facility] [address] [place] [address] Vandanadave Jacobson Urobilinogen Qn (U) 0.2 {Richard'U}/dL Normal 0.2 - 1. 0 [facility] Comment on above: Performed By: #### U AMIC #### [facility] [address] [place] [address] Vandana Indira WBC 0-2 Abnormal NONE SEEN [facility] Comment on above: Performed By: #### U AMIC #### [facility] [address] [place] [address] Vandanadave Jacobson CBC AUTO DIFFon 12-17-2019 BASO # 0.0 103/ul Normal 0.0-0.1 [facility] Comment on above: Performed By: #### C BC #### [facility] [address] [place] [address] Vandana Jacobson Basophils/100 WBC (Bld) 0.1 % Critically low 0.2-2.0 [facility] Comment on above: Performed By: #### C BC #### [facility] [address] [place] [address] Vandana Indira EO # 0.1 103/ul Normal 0.0-0.7 [facility] Comment on above: Performed By: #### C BC #### [facility] [address] [place] [address] Vandana Indira Eosinophils/100 WBC (Bld) 0.9 % Normal 0.9-7.0 [facility] Comment on above: Performed By: #### C BC #### [facility] [address] [place] [address] Vandana Indira Erythrocyte distribution width (RBC) [Ratio] 14.3 % Normal 11.0-15.0 [facility] Comment on above: Performed By: #### C BC #### [facility] [address] [place] [address] Vandana Indira Hematocrit (Bld) [Volume fraction] 40.5 % Normal 36.0-48.0 [facility] Comment on above: Performed By: #### C BC #### [facility] [address] [place] [address] Vandana Indira Hemoglobin (Bld) [Mass/Vol] 13.2 g/dL Normal 12.0-16.0 [facility] Comment on above: Performed By: #### C BC #### [facility] [address] [place] [address] Vandana Indira IG # 0.01 10e3/ul Normal 0.00-0.03 [facility] Comment on above: Performed By: #### C BC #### [facility] [address] [place] [address] Vandana Indira IG % 0.1 % Normal 0.0-0.5 [facility] Comment on above: Performed By: #### C BC #### [facility] [address] [place] [address] Vandana Indira LYMPH # 2.0 103/ul Normal 1.2-3.8 [facility] Comment on above: Performed By: #### C BC #### [facility] [address] [place] [address] Vandana Indira Lymphocytes/100 WBC (Bld) 27.9 % Normal 20.5-60.0 [facility] Comment on above: Performed By: #### C BC #### [facility] [address] [id number] Vandana Indira MANUAL DIFF REQ NO Normal [facility] Comment on above: Performed By: #### C BC #### [facility] [address] [id number] Vandana Indira MCH (RBC) [Entitic mass] 25.7 pg Critically low 26.7-34.0 [facility] Comment on above: Performed By: #### C BC #### [facility] [address] [place] [address] Vandana Indira MCHC (RBC) [Mass/Vol] 32.6 g/dL Normal 29.9-35.2 [facility] Comment on above: Performed By: #### C BC #### [facility] [address] [place] [address] Vandana Indira MCV (RBC) [Entitic vol] 78.9 fL Critically low 81.0-99.0 [facility] Comment on above: Performed By: #### C BC #### [facility] [address] [place], [place] [id number] Vandana Indira MONO # 0.5 103/ul Normal 0.3-0.8 [facility] Comment on above: Performed By: #### C BC #### [facility] [address] [place], [place] [id number] Vandana Indira Monocytes/100 WBC (Bld) 7.0 % Normal 1.7-12.0 [facility] Comment on above: Performed By: #### C BC #### [facility] [address] [place] [address] Vandana Indira NEUT # 4.5 103/ul Normal 1.4-6.5 [facility] Comment on above: Performed By: #### C BC #### [facility] [address] [place], [place] [id number] Vandana Indira Neutrophils/100 WBC (Bld) 64.0 % Normal 43.0-75.0 [facility] Comment on above: Performed By: #### C BC #### [facility] [address] [place], [place] [id number] Vandana Jacobson Platelet mean volume (Bld) [Entitic vol] 8.9 fL Critically low 9.5-13.5 [facility] Comment on above: Performed By: #### C BC #### [facility] [address] [place], [place] [id number] Vandanadave Jacobson PLT 345 103/ul Normal 150-450 [facility] Comment on above: Performed By: #### C BC #### [facility] [address] [place] [address] Vandana Jacobson RBC 5.13 106/ul Normal 4.20-5.40 [facility] Comment on above: Performed By: #### C BC #### [facility] [address] [place] [address] Vandana Jacobson WBC 7.1 103/ul Normal 4.0-11.0 [facility] Comment on above: Performed By: #### C BC #### [facility] [address] [place] [address] Vandana Jacobson FERRITINon 12-17-2019 Ferritin [Mass/Vol] 27.0 ng/mL Normal 6.2-137.0 [facility] Comment on above: Performed By: #### D JUDI #### [facility] [address] [place] [address] Vandana Jacobson IRONon 12-17-2019 Iron [Mass/Vol] 35.0 ug/dL Critically low 37.0-170.0 [facility] Comment on above: Performed By: #### D JUDI #### [facility] [address] [place], [place] [id number] Vandana Jacobson PROF 14(COMP METB)on 020 Albumin [Mass/Vol] 3.7 g/dL Normal 3.5-5.0 [facility] [place] Comment on above: Performed By: #### C MP #### [facility] [address] [place], [place] [id number] Vandana Jacobson Albumin/Globulin [Mass ratio] 0.9 {ratio} Normal [facility] Comment on above: Performed By: #### C MP #### [facility] [address] [place], [place] [address] Vandana Indira ALP [Catalytic activity/Vol] 82 U/L Normal 38-126 [facility] Comment on above: Performed By: #### C MP #### [facility] [address] [id number] Vandana Indira ALT [Catalytic activity/Vol] 21 U/L Normal 9-52 [facility] Comment on above: Performed By: #### C MP #### [facility] [address] [id number] Vandana Indira Anion gap [Moles/Vol] 12.5 mmol/L Normal [facility] Comment on above: Performed By: #### C MP #### [facility] [address] [place] [address] Vandana Indira AST [Catalytic activity/Vol] 15 U/L Normal 14-36 [facility] Comment on above: Performed By: #### C MP #### [facility] [address] [place] [address] Vandana Indira Bilirubin [Mass/Vol] 0.3 mg/dL Normal 0.2-1.3 [facility] Comment on above: Performed By: #### C MP #### [facility] [address] [place], [place] [id number] Vandana Indira Calcium [Mass/Vol] 9.5 mg/dL Normal 8.4-10.2 [facility] Comment on above: Performed By: #### C MP #### [facility] [address] [place] [address] Vandana Indira Chloride [Moles/Vol] 104 mmol/L Normal 98-107 [facility] Comment on above: Performed By: #### C MP #### [facility] [address] [place], [place] [id number] Vandana Indira CO2 [Moles/Vol] 28.4 mmol/L Normal 22.0-30.0 [facility] Comment on above: Performed By: #### C MP #### [facility] [address] [place], [place] [address] Vandana Indira Creatinine [Mass/Vol] 0.69 mg/dL Normal 0.52-1.04 [facility] Comment on above: Performed By: #### C MP #### [facility] [address], [place] [address] Vandana Indira EGFR-AF [place]ER >60 Normal >=60 [facility] Comment on above: Performed By: #### C MP #### [facility] [address] [phone] Vandana Indira EGFR-NON AF [place]ER >60 Normal >=60 [facility] Comment on above: Performed By: #### C MP #### [facility] [address] [phone] Vandana Indira Globulin (S) [Mass/Vol] 4.1 g/dL Normal [facility] Comment on above: Performed By: #### C MP #### [facility] [address] [place] [address] Vandana Indira Glucose [Mass/Vol] 94 mg/dL Normal 74-106 [facility] Comment on above: Performed By: #### C MP #### [facility] [address] [place], [place] [id number] Vandana Indira Potassium [Moles/Vol] 3.9 mmol/L Normal 3.4-5.0 [facility] Comment on above: Performed By: #### C MP #### [facility] [address] [place], [place] [address] Vandana Indira Protein [Mass/Vol] 7.8 g/dL Normal 6.1-8.2 [facility] Comment on above: Performed By: #### C MP #### [facility] [address] [place], [place] [address] Vandana Indira Sodium [Moles/Vol] 141 mmol/L Normal 137-145 [facility] Comment on above: Performed By: #### C MP #### [facility] [address] [place], [place] [address] Vandana Indira Urea nitrogen [Mass/Vol] 16.0 mg/dL Normal 7.0-17.0 [facility] Comment on above: Performed By: #### C MP #### [facility] [address] [id number] Vandanadave Jacobson Urea nitrogen/Creatinine [Mass ratio] 23.2 mg/mg Normal [facility] Comment on above: Performed By: #### C MP #### [facility] [address] [id number] Vandanadave Jacobson PROTIMEon 12-17-2019 INR Coag (PPP) [Relative time] 0.97 {INR} Normal [facility] Comment on above: Performed By: #### D RUGRPD #### [facility] [address] [place], [place] [id number] Vandana Indira INR GUIDELINES SEE BELOW Normal [facility] Comment on above: Result Comment: ABHIJIT RED INR: 2.0 - 3.0 CONDITIONS NOT LISTED BELOW 2.5 - 3.5 FOR PROSTHETIC HEART VALVE REPLACEMENT 2.5 - 3.5 RECURRENT THROMBOSIS Performed By: #### D RUGBELA #### [facility] [address] [address] Vandana Indira PT Coag (PPP) [Time] 10.3 s Normal 9.0-11.6 [facility] Comment on above: Performed By: #### D RUGRPD #### [facility] [address] [place] [address] Vandana Indira PT NORMAL PLEASE NOTE: NORMAL RANGE CHANGE 11-24-2013 DUE TO REAGENT LOT CHANGE [facility] Comment on above: Performed By: #### D RUGRPD #### [facility] [address] [address] Vandanadave Jacobson PTTon 12-17-2019 aPTT Coag (Bld) [Time] 30.7 s Normal 22.3-36.2 [facility] Comment on above: Performed By: #### D RUGRPD #### [facility] [address] [place] [address] Vandana Indira PTT NORMAL PLEASE NOTE: NORMAL RANGE CHANGE 01-31-2015 DUE TO REAGENT LOT CHANGE Normal [facility] Comment on above: Performed By: #### D RUGSHANNAND #### [facility] [address] [place], [place] [address] Vandana Jacobson Vital Signs Date Time Vital Sign Value Performing Clinician Facility 04-30-2023 10:23-0500 Diastolic blood pressure 84 mm[Hg] PHYSICIAN NO [facility] 04-30-2023 10:23-0500 Heart rate 67 /min PHYSICIAN NO [facility] 04-30-2023 10:23-0500 Respiratory rate 18 /min PHYSICIAN NO [facility] 04-30-2023 10:23-0500 SaO2% (BldA) [Mass fraction] 99 % PHYSICIAN NO [facility] 04-30-2023 10:23-0500 Systolic blood pressure 130 mm[Hg] PHYSICIAN NO [facility] 04-30-2023 08:53-0500 Body temperature 98.3 [degF] PHYSICIAN NO [facility] 04-30-2023 08:12-0500 Inhaled oxygen flow rate 8 L/min PHYSICIAN NO [facility] 04-30-2023 07:44-0500 Body height 152.4 cm PHYSICIAN NO [facility] 04-30-2023 07:44-0500 Body mass index (BMI) [Ratio] 28.7 kg/m2 PHYSICIAN NO [facility] 04-30-2023 07:44-0500 Body weight 66.67 kg PHYSICIAN NO [facility] 04-24-2023 11:55-0500 Diastolic blood pressure 86 mm[Hg] PHYSICIAN NO [facility] 04-24-2023 11:55-0500 Heart rate 65 /min PHYSICIAN NO [facility] 04-24-2023 11:55-0500 Respiratory rate 16 /min PHYSICIAN NO [facility] 04-24-2023 11:55-0500 SaO2% (BldA) [Mass fraction] 100 % PHYSICIAN NO [facility] 04-24-2023 11:55-0500 Systolic blood pressure 119 mm[Hg] PHYSICIAN NO [facility] 04-24-2023 11:07-0500 Body temperature 98 [degF] PHYSICIAN NO [facility] 04-24-2023 10:42-0500 Inhaled oxygen flow rate 8 L/min PHYSICIAN NO [facility] 04-24-2023 08:52-0500 Body height 152.4 cm PHYSICIAN NO [facility] 04-24-2023 08:52-0500 Body mass index (BMI) [Ratio] 29 kg/m2 PHYSICIAN NO [facility] 04-24-2023 08:52-0500 Body weight 67.58 kg PHYSICIAN NO [facility] 04-20-2023 08:56-0500 Body mass index (BMI) [Ratio] 30.09 kg/m2 Nils Sarkar MD Work Phone: [facility] 04-20-2023 08:56-0500 Body weight 67.59 kg Nils Sarkar MD Work Phone: [facility] 04-20-2023 08:56-0500 Diastolic blood pressure 66 mm[Hg] Nils Sarkar MD Work Phone: [facility] 04-20-2023 08:56-0500 Systolic blood pressure 110 mm[Hg] Nils Sarkar MD Work Phone: [facility] Healthcare Encounters Encounter Date Encounter Type Care Provider Facility Start: 05-11-2023 End: 05-11-2023 ambulatory NILS SARKAR Not Available Start: 04-29-2023 End: 04-30-2023 ambulatory Nils Sarkar Facility:[facility] Start: 04-29-2023 End: 04-30-2023 Patient encounter procedure PHYSICIAN NO [facility] Start: 04-29-2023 End: 04-30-2023 ambulatory PHYSICIAN NO [facility] Work Phone: Start: 04-24-2023 End: 04-24-2023 ambulatory Nils Sarkar Facility:[facility] Start: 04-24-2023 End: 04-24-2023 Admission to same day surgery center PHYSICIAN NO [facility] [place] Start: 04-24-2023 End: 04-24-2023 ambulatory PHYSICIAN NO [facility] Work Phone: Start: 04-20-2023 End: 04-20-2023 Office outpatient visit 10 minutes Nils Sarkar MD Work Phone: [facility] Comment on above: Missed ; Bleeding in early ; Vaginal discharge Start: 04-20-2023 End: 04-20-2023 ambulatory NILS SARKAR Not Available Start: 04-13-2023 End: 04-13-2023 ambulatory NILS SARKAR Not Available Start: 04-12-2023 Chart abstracting Nils galicia MD Work Phone: [facility] Start: 10-08-2020 End: 10-08-2020 ambulatory KOFI CURRIE Facility:[facility] Start: 10-03-2020 ambulatory KOFI CURRIE Facility:[facility] Start: 10-01-2020 End: 10-03-2020 Evaluation and management of inpatient DR TAE BURK Facility:[facility] Start: 09-12-2020 End: 09-13-2020 ambulatory FRONT OFFICE MANAGER LLUVIA TATYANA Facility:[facility] Start: 09-10-2020 End: 09-11-2020 ambulatory KOFI CURRIE Facility:[facility] Start: 09-06-2020 End: 09-06-2020 ambulatory FRONT OFFICE MANAGER LLUVIA AICCAROLINAZ Facility:[facility] Start: 08-31-2020 End: 08-31-2020 ambulatory FRONT OFFICE MANAGER LLUVIA AICHHOLZ Facility:[facility] Start: 08-01-2020 End: 08-01-2020 ambulatory FRONT OFFICE MANAGER LLUVIA AICHHOLZ Facility:[facility] Start: 12-17-2019 End: 12-18-2019 ambulatory FRONT OFFICE MANAGER LLUVIA AICHHOLZ Facility:[facility] Procedures Date Procedure Procedure Detail Performing Clinician Start: 04-30-2023 Dilation and curetta ge of uterus PHYSICIAN NO FAMILY Start: 04-30-2023 Pelvic echography PHYSI RADHA NO FAMILY Start: 04-30-2023 Transvaginal echography PHYSICIAN NO FAMILY Start: 04-29-2023 Antibody screen Nils Sarkar Comment on above: Result Comment: PERF ORMED BY: [facility] [address] [place] [address] PATHOLOGIST RADIO PERFORMER CHUY PALOMO M.D. Start: 04-24-2023 Dilation and curetta ge of uterus PHYSICIAN NO FAMILY Start: 10-01-2020 Delivery of Products of Conception, External Approach TERENCE JOE Start: 10-01-2020 Repair Vulva, Fuel Cell Assembler al Approach TERENCE JOE Plan of Treatment Date Care Activity Detail Author Start: 04-30-2023 [facility] Start: 04-24-2023 [facility] Start: 04-24-2023 End: 04-24-2023 [facility] Start: 04-20-2023 End: 04-20-2024 hCG, quantitative [facility] Work Phone: Comment on above: Ordered: 04/20/2023 Expected: 04/20/2023 (Approximate), Expires: 04/20/2024 Start: 04-13-2023 End: 04-13-2023 Patient encounter procedure 04/13/2023 9:45 AM EST Office Visit [facility] [address] [place] [address] Nils Sarkar MD [address] [place] [address] [facility] Start: 04-13-2023 End: 04-13-2023 Professional / ancillary services management 04/13/2023 9:30 AM EST Ancillary Procedure [facility] [address] [place] [id number] [facility] Basophils [#/volume] in Blood by Automated count [facility] Basophils/100 leukoc ytes in Blood by Automated count [facility] Eosinophils/100 leukocytes in Blood by Automated count [facility] Erythrocyte distribu tion width [Ratio] by Automated count [facility] Erythrocytes [#/volu me] in Blood [facility] Hematocrit [Volume Fraction] of Blood [facility] Hemoglobin [Mass/vol ume] in Blood [facility] Leukocytes [#/volume ] corrected for nucleated erythrocytes in Blood by Automated coun [facility] Leukocytes [#/volume ] in Blood [facility] Lymphocytes [#/volum e] in Blood by Automated count [facility] Lymphocytes/100 leukocytes in Blood by Automated count [facility] MCH [Entitic mass] b y Automated count [facility] MCHC [Mass/volume] b y Automated count [facility] MCV [Entitic volume] by Automated count [facility] Monocytes [#/volume] in Blood by Automated count [facility] Monocytes/100 leukoc ytes in Blood by Automated count [facility] MYCOPLASMA/UREAPLASM A PANEL MYCOPLASMA/UREAPLASMA PANEL Lab Routine Vaginal discharge Ordered: 04/20/2023 [facility] Comment on above: Ordered: 04/20/2023 Neutrophils [#/volum e] in Blood by Automated count [facility] Neutrophils/100 leukocytes in Blood by Automated count [facility] Nucleated erythrocyt es [Presence] in Blood by Automated count [facility] Patient Education [facility] Work Phone: Patient referral [facility] Work Phone: Platelet mean volume [Entitic volume] in Blood by Automated [facility] Platelets [#/volume] in Blood [facility] Payers Date Payer Category Payer Self-pay 2023 Unknown BCBS BCBS [id number] 2023-Present [phone] [address] [place] [address] [id number] 2023 Unknown [id number] 1998 Unknown [id number] [id number] 1998 Unknown [id number] 2.16.840.1.210110.3.579.2.593 1998 Unknown [id number] 2.16.840.1.195853.3.579.2.593 1998 Unknown [id number] 2.16.840.1.552634.3.579.2.593 1998 Unknown [id number] 2.16.840.1.938671.3.579.2.593 1998 Unknown [id number] 2.16.840.1.347123.3.579.2.593 1998 Unknown [id number] 2.16.840.1.731227.3.579.2.593 1998 Unknown [id number] 2.16.840.1.714009.3.579.2.593 1998 Unknown [id number] 2.16.840.1.456489.3.579.2.593 1998 Unknown [id number] 2.16.840.1.967611.3.579.2.1259 1998 Unknown [id number] 2.16.840.1.521696.3.579.2.1259 1998 Unknown [id number] 2.16.840.1.638245.3.579.2.1259 1998 Unknown [id number] 2.16.840.1.515445.3.579.2.1259 1998 Unknown [id number] 2.16.840.1.507120.3.579.2.1259 1998 Unknown [id number] 2.16.840.1.423006.3.579.2.1259 1959 Unknown [id number] 1959 Unknown [id number] Unknown [id number] 2.16.840.1.308328.3.579.2.531 Unknown [id number] 2.16.840.1.321975.3.579.2.531 Social History Date Type Detail Facility Start: 08-13-2022 End: 04-30-2023 Tobacco smoking status [facility] Never smoked tobacco [facility] Start: 08-13-2022 Tobacco use and exposure Smokeless tobacco non-user [facility] Start: 04-07-2023 End: 04-20-2023 Alcohol intake Ex-drinker (finding) [facility] Start: 08-13-2022 End: 04-13-2023 History of Social function [facility] Start: 08-13-2022 End: 04-13-2023 Tobacco use panel [facility] Start: 08-13-2022 Alcohol Comment none with [facility] Start: 2000 Sex Assigned At Not on file [facility] The thought of gilberto salinas myself has occurred to me Never [facility] Start: 2000 Sex Assigned At Female F [facility] Goals Date Patient Goal Desired Activity /State Functional Status Date Assessment Result Facility 04-29-2023 Functional status Patient at Baseline [facility] Work Phone: Mental Status Date Assessment Result Facility 04-29-2023 Cognitive function Cognitive Sta tus Patient at Baseline [facility] Work Phone: History and physical note 04-30-2023 Note Date & Type Note Facility 04-30-2023 History and physical note Note Date/Time April 29, 2023 10:09pm [facility] [address] [place] [address] LEATHER WHITENER History & Physical Signed Patient: Sarah Arce MR#: [id number] : 2000 Acct:[id number] Age/Sex: 23 / F Adm Date: 4 Loc: Room: [address] [place] [address] Type: REG CLI Attending Dr: Nils Sarkar MD Copies to: NO FAMILY PHYSICIAN Nils Sarkar MD-[facility]~ Date of Service: 04/29/2023 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 Patient with suction D&C 7 days ago with onset of severe cramping and passage of clots 3 daysafter. Ultrasound in office revealed a 2.3 cm complex with vascularization. Patient was admitted for Cytotec trial. 3 doses of 800 mcg of Cytotec was placed vaginally 4 hours apart, with no passage of tissue as confirmed by ultrasound this am. White count 13.6 and Ancef 2 grams x 2 doses was administered. Pt is able ambivalent about repeat D&C but was advised this is the best plan of care Review of Systems Review of Systems All other systems reviewed & are negative unless noted below or in HPI [facility] Medical History (Updated 04/29/23 @ 22:08 by Nils Sarkar MD) H/O reduction of closed fracture No pertinent past medical history Surgical History (Updated 04/29/23 @ 18:07 by Goyo Crawley RN) History of dilation and curettage Family History (Updated 04/24/23 @ 08:42 by Kayla Graham LPN) Other No significant family history Social History Smoking Status: Never smoker Substance Use Type: None Hx Exposure to Communicable Disease: No Recent Out of Country Travel within the last 28 days: No Exposure or Possible Exposure to Illness During Travel: No Allergies & Medications Medications and Allergies Allergies No Known Allergies Allergy (Verified 04/24/23 08:29) Home Medications doxycycline hyclate 100 mg tablet 100 mg PO BID 14 days #28 tabs 04/24/23 [Rx Confirmed 04/29/23] ibuprofen 800 mg tablet 800 mg PO Q6HR PRN pain #30 tabs 04/24/23 [Rx Confirmed 04/29/23] Active Medications Hydromorphone HCl (Hydromorphone 0.5 Mg/0.5 Ml Syringe) 0.5 mg IV-PUSH Q2H PRN PRN Reason: Pain Lactated Ringer's (Lactated Ringers) 1,000 mls @ 125 mls/hr IV .Q8H [facility] Stop: 04/28/24 16:59 Last Admin: 04/29/23 17:50 Dose: 125 mls/hr Cefazolin Sodium (Ancef) 2 gm in 50 mls @ 100 mls/hr IV Q8H [facility] Last Admin: 04/29/23 17:51 Dose: 100 mls/hr Oxytocin 40 unit/ Lactated (Ringer's) 504 mls @ 150 mls/hr IV .Q3H22M ONE; Protocol Stop: 04/30/23 02:21 Misoprostol (Misoprostol 200 Mcg Tablet) 800 mcg VAGINAL Q4H [facility] Stop: 04/30/23 02:31 WAREHOUSE SELECTOR - Exam Physical Exam Vital signs: Temp 98.3 F 04/29/23 20:00 Pulse 82 04/29/23 20:00 Resp 16 04/29/23 20:00 BP 137/87 04/29/23 20:00 Pulse Ox 97 04/29/23 20:00 O2 Del Method Room Air 04/29/23 20:00 Constitutional Constitutional: no acute distress Routine Respiratory Exam Comments: good effort Routine Abdominal Exam Abdominal: Present soft; Absent tenderness, distended or rebound Routine Exam External: Present other (bleeding) Detailed Pelvic Exam Vulva: Absent ulceration or lesion Vagina: Absent discharge or lesion Cervix: Present other (Dilated 3 cm) Comments: Some bleeding Routine Extremities Exam Extremities: Absent edema Routine Skin Exam Skin: Present intact Routine Neurological Exam Neurological: Present alert and oriented X3 Routine Psychiatric Exam Psychiatric: Present normal affect WAREHOUSE SELECTOR - Results Laboratory Results - Last 48 hrs. 04/29/23 20:27: Blood Type Recheck A Positive 04/29/23 17:45: HCG, Quant 3230.00 04/29/23 17:31: Corrected WBC 13.6 H, Uncorrected WBC Count 13.6 H, RBC 4.93, Hgb 13.3, Hct 39.8, MCV 80.8, MCH 27.0, MCHC 33.5, RDW 13.9, Plt Count 369, MPV 7.0, Neut % (Auto) 77.6, Lymph % (Auto) 17.0, Towns % (Auto) 4.0, Eos % (Auto) 1.1, Baso % (Auto) 0.3, Nucleat RBC Rel Count 0.2, Neut # (Auto) 10.6 H, Lymph #(Auto) 2.3, Towns # (Auto) 0.5, Eos # (Auto) 0.2, Baso # (Auto) 0.0, Blood Type APositive, Antibody Screen Negative Diagnostic Imaging Comments: 2.1 cm uterine complex with vascularization, essentially unchanged from yesterday WAREHOUSE SELECTOR - A/P (1) Vaginal bleeding: Plan Failed Cytotec evacuation of uterine tissue Suction D&C D&C Documented By: CHUCK Astorga 04/29/23 22 06 Signed By: <Electronically signed by CHUCK Sarkar> 04/30/23 0702 [facility] Work Phone: History of Present illness Narrative 04-20-2023 Nils Sarkar MD - 04/20/2023 9:15 AM EST Note Date & Type Note Facility 04-20-2023 History of Presen t illness Narrative Images from the original note were not included. Nils Sarkar MD Obstetrics and Gynecology Patient: Sarah Arce : 2000 (23 y.o.) Exam Date: 04/20/2023 Reason for Visit - Chief Complaint Patient presents with Care 1 week follow up to a miscarriage. Pt c/p pelvic pressure and lower back pain. Denies urinary symptoms. Denies bleeding., Cramping for 4 days Visit Vitals LMP 07/04/2022 OB Status Recent Smoking Status Never History of Present Illness, Associated Treatments and Results - OB History Para Term AB Living 2 1 1 0 0 1 SAB IAB Ectopic Multiple Live Births 0 0 0 0 1 # Outcome Date GA Lbr Ryan/2nd Weight Sex Delivery Anes PTL Lv 2 1 Term 10/01/20 39w4d 7 lb 12 oz M Vag-Spont ANTHONY Constitutional: Negative. HENT: Negative. Eyes: Negative. Respiratory: Negative. Cardiovascular: Negative. Gastrointestinal: Negative. Endocrine: Negative. Genitourinary: Negative. Musculoskeletal: Negative. Skin: Negative. Allergic/Immunologic: Negative. Neurological: Negative. Hematological: Negative. Psychiatric/Behavioral: Negative. No Known Allergies Current Outpatient Medications: ondansetron (Zofran) 4 MG tablet, Take 1 tablet (4 mg) by mouth every 6 (six) hours if needed for nausea for up to 20 doses, Disp: 20 tablet, Rfl: 0 27-1 MG tablet, Take 1 tablet by mouth in the morning., Disp: , Rfl: Past Medical History: Diagnosis Date Varicella zoster as a child No past surgical history on file. Family History Problem Relation Name Age of Onset No Known Problems Son Breast cancer Mother's Sister Thyroid disease Mother's Sister Ovarian cancer Maternal Grandmother Social History Tobacco Use Smoking Status Never Smokeless Tobacco Never Physical Exam - General appearance, mentation, extraocular movements, facial strength and movement, hearing, upper and lower extremity strength and tone, sensation to gross testing, coordination, and gait are normal or at baseline unless noted below. Physical Exam Constitutional: Appearance: Normal appearance. Genitourinary: No vaginal atrophy present. No cervical lesion. HENT: Head: Normocephalic and atraumatic. Neurological: Mental Status: She is alert and oriented to person, place, and time. Psychiatric: Mood and Affect: Mood normal. Behavior: Behavior normal. cervicitis No bleeding and cervix is closed Assessment/Plan ICD-10-CM 1. Missed O02.1 2. Bleeding in early O20.9 Pt without bleeding or cramping Hcg quant serial today and Thursday If levels decline cytotec orally impossible D&C on Thursday documented in this encounter [facility] Evaluation note Note Date & Type Note Facility Evaluation note Diagnosis Missed Bleeding in early Unspecified hemorrhage in early , unspecified as to episode of care Vaginal discharge Leukorrhea, not specified as infective documented in this encounter [facility] Evaluation note Note Date & Type Note Facility Evaluation note No assessment information availa ble [facility] Work Phone: Evaluation note Note Date & Type Note Facility Evaluation note Diagnosis Onset Date Vaginal bleeding acute [facility] Work Phone: Hospital Discharge instructions Note Date & Type Note Facility Hospital Discharge instructions Additional Instructions [employer] INSTRUCTIONS Call for heavy bleeding FOLLOW UP Thursday 10 am [facility] Work Phone: Summary Purpose Family History No Family History Records Found Relationship Condition Age at Onset Recorded Date/T prince Not Specified No pertinent family history Unknown Advance Directives No Advanced Directives Records Found Advance Directive Response Recorded Date/ Time Advance Directives No April 5:46pm Chief Complaint and Reason for Visit Chief Complaint products of concepti on Chief Complaint products of concepti on bleeding, tissue left from D & C preformed 04/24/23 Reason for Visit Vaginal bleeding Additional Source Comments INFORMATION SOURCE (unrecogn ized section and content) DATE CREATED AUTHOR 10/08/[address] 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 Specialty Start Date End Date Unallocated, [facility] Provider [address] [place] [address] PCP - General Family Medicine 04/13/23 Team Status: Active Member Role Status Dates PHYSICIAN NO FAMILY Primary Care Provider Active Team Status: Inactive Member Role Status Dates Nils Sarkar MD Attending Provider Active St art: April 24, 2023 End: April 24, 2023 PHYSICIAN NO FAMILY Primary Care Provider Active Start: April 24, 2023 End: April 24, 2023 Team Status: Inactive Member Role Status Dates PHYSICIAN NO FAMILY Primary Care Provider Active Start: April 29, 2023 End: April 30, 2023 Nils Sarkar MD Attending Provider Active St art: April 29, 2023 End: April 30, 2023 FOR RECORDS PERTAINING TO PATIENTS WHO ARE OR HAVE BEEN ENROLLED IN A CHEMICAL DEPENDENCY/SUBSTANCEABUSE PROGRAM, SOME INFORMATION MAY BE OMITTED. This clinical summary was aggregated from multiple sources. Caution should be exercised in using it in the provision of clinical care. This summary normalizes information from multiple sources, and as a consequence, information in this document may materially change the coding, format and clinical context of patient data. In addition, data may be omitted in some cases. CLINICAL DECISIONS SHOULD BE BASED ON THE PRIMARY CLINICAL RECORDS. [facility]. provides no warranty or guarantee of the accuracy or completeness of information in this document.
[2023-10-26 11:43] LABS: HCG Quantitative 40978 mIU/mL
== END 2023-10-26 09:47 | disposition home or self-care (01) ==
LOC: LAB 09:47
PROVIDERS: Visit Provider Obstetrics & Gynecology
DX: N92.6 Irregular menstruation, unspecified (principal)
CPT/HCPCS: 36415; 84702

== ENCOUNTER 2023-11-10 08:25 | Outpatient (OUT) | payer BC, SELFPAY ==
--- NOTE | 2023-11-10 08:27 | US_ITS ---
[address] [address] Patient Name: ÁNGEL EVANS MRN: [id number] date: 2000 Sex: F Assigned Patient Location: [facility] Current Patient Location: [facility] Accession/Order Number: [id number] Exam Date: 11/10/2023 08:30 Report Date: 11/10/2023 10:17 At the request of: PARTHA COSME Procedure: US OB transvaginal EXAMINATION: US OB transvaginal HISTORY: Missed menses COMPARISON: Ultrasound OB transvaginal 10/23/2023 FINDINGS: GESTATIONAL SAC: Absent YOLK SAC: Absent POLE: Absent CARDIAC: Absent UTERUS: Enlarged endometrial cavity filled with soft tissue structure containing innumerable small cystic areas. OVARIES: Right: Corpus lutein cyst. Left: Normal. CERVIX: 4.4 cm in length and closed. CUL-DE-SAC: Normal. OTHER: None. AGE BY LMP: 11 weeks 1 day YUE BY LMP: 05/30/2024 AGE BY US CRL: Not applicable YUE BY US CRL: US/US OB transvaginal IMPRESSION: 1. Molar . Electronically authenticated by: KAYLA DE LA O Date: 11/10/2023 10:17
--- OUTSIDE RECORDS SUMMARY | 2023-11-10 08:28 | XMS_ITS | CCD ---
Author Organization [facility] CliniSyvt Care Team Providers Care Engineering Mathematician Name Role Phone AICHHOLZ, EAR PULL MACHINE OPERATOR LLUVIA Primary Care Unavailable KOFI CURRIE Consulting Unavailable KOFI CURRIE Admitting Unavailable KOFI CURRIE Attending Unavailable AICHHOLZ, EAR PULL MACHINE OPERATOR LLUVIA Primary Care Unavailable QUIQUE, DR KECIA Devi Consulting Unavailable KOFI CURRIE Attending Unavailable KOFI CURRIE Admitting Unavailable KOFI CURRIE Consulting Unavailable KOFI CURRIE Attending Unavailable MISC, DOCTOR Referring Unavailable AICHHOLZ, EAR PULL MACHINE OPERATOR LLUVIA Primary Care Unavailable KOFI CURRIE Consulting Unavailable KOFI CURRIE Admitting Unavailable KARASIK, DR STRONG Attending Unavailable AICHHOLZ, EAR PULL MACHINE OPERATOR [place]UVIA Primary Care Unavailable KARASIK, DR STRONG Consulting Unavailable KARASIK, DR STRONG Admitting Unavailable KARASIK, DR STRONG Procedure Practitioner Unava ilable KOFI CURRIE Consulting Unavailable KOFI CURRIE Attending Unavailable AICHHOLZ, EAR PULL MACHINE OPERATOR [place]UVIA Primary Care Unavailable KOFI CURRIE Admitting Unavailable AICHHOLZ, EAR PULL MACHINE OPERATOR LLUVIA Primary Care Unavailable KARASIK, DR STRONG Consulting Unavailable KARASIK, DR STRONG Admitting Unavailable KARASIK, DR STRONG Attending Unavailable KOFI CURRIE Consulting Unavailable KOFI CURRIE Attending Unavailable AICHHOLZ, EAR PULL MACHINE OPERATOR [place]IA Primary Care Unavailable KOFI CURRIE Admitting Unavailable AICHHOLZ, EAR PULL MACHINE OPERATOR [place]UVIA Primary Care Unavailable KOFI CURRIE Consulting Unavailable KOFI CURRIE Admitting Unavailable KOFI CURRIE Attending Unavailable AICHHOLZ, EAR PULL MACHINE OPERATOR [place]UVIA Admitting Unavailable AICHHOLZ, EAR PULL MACHINE OPERATOR LLVUIA Attending Unavailable AICHHOLZ, EAR PULL MACHINE OPERATOR [place]UVIA Consulting Unavailable AICHHOLZ, EAR PULL MACHINE OPERATOR LLUVIA Primary Care Unavailable Unavailable Primary Care Provider Unavailabl e Unallocated, N[place] Provider Primary Care Provider MD Nils Sarkar Attending Provider NO FAMILY, PHYSICIAN Primary Care Provider Unava [...] 04-30-2023 Basophils (Bld) [#/Vol] 0.1 10*3/uL 0.0-0.2 [facility] Basophils/100 WBC Auto (Bld) Ordered By: CHUCK Sarkar on 04-30-2023 Basophils/100 WBC (Bld) 0.7 % . [facility] Choriogonadotropin.beta subu nit [Units/volume] in Serum or PlasmaOrdered By: SHANNON Sarkar on 04-30-2023 HCG.beta subunit Qn 2358.00 m[IU]/mL [facility] Comment on above: Approximate Approxim ate hCG Gestational Age Range (mIU/ml) (weeks)0.2-1 5-50 1-2 50-500 2-3 100-5,000 3-4 500-10,000 4-5 1,000-50,000 5-6 10,000-100,000 6-8 15,000-200,000 8-12 10,000-100,000 Complete Blood Count Auto Di ffon 04-30-2023 Basophils (Bld) [#/Vol] 0.1 10*3/uL Normal 0.0-0.2 [facility] Comment on above: Result Comment: PERF ORMED BY: [place] [address] PATHOLOGIST BUSINESS SYSTEM MANAGER CHUY PALOMO M.D. Performed By: #### C BC, HCGQNT #### [facility] [address] Basophils/100 WBC (Bld) 0.7 % Normal . [facility] Comment on above: Performed By: #### C BC, HCGQNT #### [facility] [address] [place] [address] [place] Eosinophils (Bld) [#/Vol] 0.1 10*3/uL Normal 0.0-0.45 [facility] Comment on above: Performed By: #### C BC, HCGQNT #### [address] Eosinophils/100 WBC (Bld) 1.3 % Normal . [facility] Comment on above: Performed By: #### C BC, HCGQNT #### [address] Erythrocyte distribution width (RBC) [Ratio] 14.1 % Normal 11.9-15.3 [facility] Comment on above: Performed By: #### C BC, HCGQNT #### [address] Hematocrit (Bld) [Volume fraction] 35.3 % Normal 34.0-46.4 [facility] Comment on above: Performed By: #### C BC, HCGQNT #### [address] Hemoglobin (Bld) [Mass/Vol] 12.2 g/dL Normal 11.8-15.4 [facility] Comment on above: Performed By: #### C BC, HCGQNT #### [place] [address] [place] Lymphocytes (Bld) [#/Vol] 2.4 10*3/uL Normal 1.00-4.8 [facility] Comment on above: Performed By: #### C BC, HCGQNT #### [facility] [address] Lymphocytes/100 WBC (Bld) 28.7 % Normal . [facility] Comment on above: Performed By: #### C BC, HCGQNT #### [facility] [address] MCH (RBC) [Entitic mass] 27.8 pg Normal 24.7-34.3 [facility] Comment on above: Performed By: #### C BC, HCGQNT #### [address] MCV (RBC) [Entitic vol] 80.2 fL Normal 80-100 [facility] Comment on above: Performed By: #### C BC, HCGQNT #### [address] Mean Corpuscular HGB Conc 34.7 g/dL Normal 32.0-35.0 [facility] Comment on above: Performed By: #### C BC, HCGQNT #### [place] [address] [place] Monocytes (Bld) [#/Vol] 0.5 10*3/uL Normal 0.0-0.8 [facility] Comment on above: Performed By: #### C BC, HCGQNT #### [place] [address] [place] Monocytes/100 WBC (Bld) 6.3 % Normal . [facility] Comment on above: Performed By: #### C BC, HCGQNT #### [place] [address] [place] Neutrophils (Bld) [#/Vol] 5.3 10*3/uL Normal 1.8-7.7 [facility] Comment on above: Performed By: #### C BC, HCGQNT #### [place] [address] [place] Neutrophils/100 WBC (Bld) 63.0 % Normal . [facility] Comment on above: Performed By: #### C BC HCGQNT #### [address] NRBC% 0.1 /100{WBC} Normal 0-0.5 [facility] Comment on above: Performed By: #### C BC HCGQNT #### [address] Platelet mean volume (Bld) [Entitic vol] 6.7 fL Normal 6.3-10.7 [facility] Comment on above: Performed By: #### C BC HCGQNT #### [address] Platelets (Bld) [#/Vol] 317 10*3/uL Normal 150-450 [facility] Comment on above: Performed By: #### C BC HCGQNT #### [address] RBC (Bld) [#/Vol] 4.40 10*6/uL Normal 3.60-5.00 [facility] Comment on above: Performed By: #### C BC HCGQNT #### [address] WBC (Bld) [#/Vol] 8.4 10*3/uL Normal 3.8-11.6 [facility] Comment on above: Performed By: #### C BC, HCGQNT #### [place] [address] [place] Eosinophils Auto (Bld) [#/Vo l]Ordered By: CHUCK Sarkar on 04-30-2023 Eosinophils (Bld) [#/Vol] 0.1 10*3/uL 0.0-0.45 [facility] Eosinophils/100 WBC Auto (Bl d)Ordered By: CHUCK Sarkar on 04-30-2023 Eosinophils/100 WBC (Bld) 1.3 % . [facility] Erythrocyte distribution wid th Auto (RBC) [Ratio]Ordered By: CHUCK Sarkar on 04-30-2023 Erythrocyte distribution width (RBC) [Ratio] 14.1 % 11.9-15.3 [facility] HCG,Quantitativeon 4 HCG,Quantitative 2358.00 m[iU]/mL Normal [facility] Comment on above: Result Comment: Appr oximate Approximate hCG Gestational Age Range (mIU/ml) (weeks) 0.2-1 5-50 1-2 50-500 2-3 100-5,000 3-4 500-10,000 4-5 1,000-50,000 5-6 10,000-100,000 6-8 15,000-200,000 8-12 10,000-100,000 PERFORMED BY: [place] [address] PATHOLOGIST BUSINESS SYSTEM MANAGER CHUY PALOMO M.D. Performed By: #### C BC, HCGQNT #### [facility] [address] [place] [address] Hematocrit Auto (Bld) [Volum e fraction]Ordered By: CHUCK Sarkar on 04-30-2023 Hematocrit (Bld) [Volume fraction] 35.3 % 34.0-46.4 [facility] Hemoglobin [Mass/volume] in BloodOrdered By: CHUCK Sarkar on 04-30-2023 Hemoglobin (Bld) [Mass/Vol] 12.2 g/dL 11.8-15.4 [facility] Leif 04-30-2023 L Specimen: [id number] Received: 04/30/23 Status: RUBINA Sharpe Num: [id number] Spec Type: Surgical Subm Dr: CHUCK Astorga Tissues: A Products of Conception - Spontaneous or Missed (PRODUCTS OF CONCEPT Procedures: HE/3, Gross/Micro L4 Age/ Patient Sex Location Account Attending Physician Sarah Arce 23/F N3 [id number] CHUCK Astorga SPEC NUM: [id number] RECD: 04/30/23 STATUS: RUBINA SHARPE NUM: [id number] MARY: 04/30/23- SUBM DR: CHUCK Astorga ENTERED: 04/30/[address] [facility] [address]: SPEC TYPE: Surgical DEPT: S ORDERED: [...] is tentatively identified. tissue is not identified. Bridge Mechanic sections focused on potential villi. Bridge Mechanic sections are submitted in three cassettes labeled A1-A3. CPT Codes 46699 Specimen: [id number] Received: 04/30/23 Status: RUBINA Sharpe Num: [id number] Spec Type: Surgical Subm Dr: CHUCK Astorga Tissues: A Products of Conception - Spontaneous or Missed (PRODUCTS OF CONCEPT Procedures: HE/3, Gross/Micro L4 Patient: Sarah Arce [id number] (Continued) Signed (signatur e on file) Tavia Abad MD 05/05/23 2315 Normal [facility] Leukocytes [#/volume] correc bridget for nucleated erythrocytes in Blood by Automated counOrdered By: CHUCK Sarkar on 04-30-2023 WBC corrected for nucl RBC Auto (Bld) [#/Vol] 8.4 10*3/uL 3.8-11.6 [facility] Lymphocytes Auto (Bld) [#/Vo l]Ordered By: CHUCK Sarkar on 04-30-2023 Lymphocytes (Bld) [#/Vol] 2.4 10*3/uL 1.00-4.8 [facility] Lymphocytes/100 WBC Auto (Bl d)Ordered By: CHUCK Sarkar on 04-30-2023 Lymphocytes/100 WBC (Bld) 28.7 % . [facility] MCH Auto (RBC) [Entitic mass ]Ordered By: CHUCK Sarkar on 04-30-2023 MCH (RBC) [Entitic mass] 27.8 pg 24.7-34.3 [facility] MCHC Auto (RBC) [Mass/Vol]Or dered By: CHUCK Sarkar on 04-30-2023 MCHC (RBC) [Mass/Vol] 34.7 g/dL 32.0-35.0 [facility] MCV Auto (RBC) [Entitic vol] Ordered By: CHUCK Sarkar on 04-30-2023 MCV (RBC) [Entitic vol] 80.2 fL 80-100 [facility] Monocytes Auto (Bld) [#/Vol] Ordered By: CHUCK Sarkar on 04-30-2023 Monocytes (Bld) [#/Vol] 0.5 10*3/uL 0.0-0.8 [facility] Monocytes/100 WBC Auto (Bld) Ordered By: CHUCK Sarkar on 04-30-2023 Monocytes/100 WBC (Bld) 6.3 % . [facility] Neutrophils Auto (Bld) [#/Vo l]Ordered By: CHUCK Sarkar on 04-30-2023 Neutrophils (Bld) [#/Vol] 5.3 10*3/uL 1.8-7.7 [facility] Neutrophils/100 WBC Auto (Bl d)Ordered By: CHUCK Sarkar on 04-30-2023 Neutrophils/100 WBC (Bld) 63.0 % . [facility] Nucleated erythrocytes [Pres ence] in Blood by Automated countOrdered By: CHUCK Sarkar on 04-30-2023 Nucleated RBC Auto Ql (Bld) 0.1 /100{WBC} 0-0.5 [facility] Platelet mean volume Auto (B ld) [Entitic vol]Ordered By: CHUCK Sarkar on 04-30-2023 Platelet mean volume (Bld) [Entitic vol] 6.7 fL 6.3-10.7 [facility] Platelets Auto (Bld) [#/Vol] Ordered By: CHUCK Sarkar on 04-30-2023 Platelets (Bld) [#/Vol] 317 10*3/uL 150-450 [facility] RBC Auto (Bld) [#/Vol]Ordere d By: CHUCK Sarkar on 04-30-2023 RBC (Bld) [#/Vol] 4.40 10*6/uL 3.60-5.00 [facility] US transvaginalon 04-30-2023 US transvaginal [facility] [place] [address] Ultrasound Report Signed Patient: Sarah Arce MR#: [id number] : 2000 Acct:[id number] Age/Sex: 23 / F ADM Date: 04/29/23 Loc: Room: [address] [place] [address] Type: REG CLI Attending Dr: Nils Sarkar MD Ordering Provider: CHUCK Astorga Date of Service: 04/30/23 US/US pelvic complete: D and C scheduled ([id number]) US/US transvaginal: PRODUCTS OF CONCEPTION WITH PRIOR [...] Usama Peña M.D.04/30/2023 9:37 AM Dictation Location: [place] [address] Tech: Anca Carpio Transcribed By: GISSEL 04/30/2337 Dictated By: Usama Peña DO 04/30/23 0933 Signed By: 04/30/23 0937 Normal [facility] WBC Auto (Bld) [#/Vol]Ordere d By: CHUCK Sarkar on 04-30-2023 WBC (Bld) [#/Vol] 8.4 10*3/uL 3.8-11.6 [facility] ABO/Rh Retypeon 04-29-2023 ABO/RH Recheck Result Positive Normal [facility] Comment on above: Result Comment: PERF ORMED BY: [facility] [address] [place] [address] PATHOLOGIST BUSINESS SYSTEM MANAGER CHUY PALOMO M.D. Complete Blood Count Auto Di ffon 04-29-2023 Basophils (Bld) [#/Vol] 0.0 10*3/uL Normal 0.0-0.2 [facility] Comment on above: Result Comment: PERF ORMED BY: [place] [address] PATHOLOGIST BUSINESS SYSTEM MANAGER CHUY PALOMO M.D. Performed By: #### H CGQNT, CBC #### [facility] [address] [place] [address] Basophils/100 WBC (Bld) 0.3 % Normal . [facility] Comment on above: Performed By: #### H CGQNT, CBC #### [facility] [address] [place] [address] Eosinophils (Bld) [#/Vol] 0.2 10*3/uL Normal 0.0-0.45 [facility] Comment on above: Performed By: #### H CGQNT, CBC #### [address] Eosinophils/100 WBC (Bld) 1.1 % Normal . [facility] Comment on above: Performed By: #### H CGQNT, CBC #### [facility] [address] [place] [address] Erythrocyte distribution width (RBC) [Ratio] 13.9 % Normal 11.9-15.3 [facility] Comment on above: Performed By: #### H CGQNT, CBC #### [address] Hematocrit (Bld) [Volume fraction] 39.8 % Normal 34.0-46.4 [facility] Comment on above: Performed By: #### H CGQNT, CBC #### [facility] [address] [place] [address] [place] Hemoglobin (Bld) [Mass/Vol] 13.3 g/dL Normal 11.8-15.4 [facility] Comment on above: Performed By: #### H CGQNT, CBC #### [facility] [address] [place] [address] [place] Lymphocytes (Bld) [#/Vol] 2.3 10*3/uL Normal 1.00-4.8 [facility] Comment on above: Performed By: #### H CGQNT, CBC #### [facility] [address] Lymphocytes/100 WBC (Bld) 17.0 % Normal . [facility] Comment on above: Performed By: #### H CGQNT, CBC #### [facility] [address] MCH (RBC) [Entitic mass] 27.0 pg Normal 24.7-34.3 [facility] Comment on above: Performed By: #### H CGQNT, CBC #### [address] MCV (RBC) [Entitic vol] 80.8 fL Normal 80-100 [facility] Comment on above: Performed By: #### H CGQNT, CBC #### [address] Mean Corpuscular HGB Conc 33.5 g/dL Normal 32.0-35.0 [facility] Comment on above: Performed By: #### H CGQNT, CBC #### [place] [address] [place] Monocytes (Bld) [#/Vol] 0.5 10*3/uL Normal 0.0-0.8 [facility] Comment on above: Performed By: #### H CGQNT, CBC #### [place] [address] [place] Monocytes/100 WBC (Bld) 4.0 % Normal . [facility] Comment on above: Performed By: #### H CGQNT, CBC #### [facility] [address] [place] [address] [place] Neutrophils (Bld) [#/Vol] 10.6 10*3/uL High 1.8-7.7 [facility] Comment on above: Performed By: #### H CGQNT, CBC #### [place] [address] [place] Neutrophils/100 WBC (Bld) 77.6 % Normal . [facility] Comment on above: Performed By: #### H CGQNT, CBC #### [address] NRBC% 0.2 /100{WBC} Normal 0-0.5 [facility] Comment on above: Performed By: #### H CGQNT, CBC #### [address] Platelet mean volume (Bld) [Entitic vol] 7.0 fL Normal 6.3-10.7 [facility] Comment on above: Performed By: #### H CGQNT, CBC #### [address] Platelets (Bld) [#/Vol] 369 10*3/uL Normal 150-450 [facility] Comment on above: Performed By: #### H CGQNT, CBC #### [address] RBC (Bld) [#/Vol] 4.93 10*6/uL Normal 3.60-5.00 [facility] Comment on above: Performed By: #### H CGQNT, CBC #### [address] WBC (Bld) [#/Vol] 13.6 10*3/uL High 3.8-11.6 [facility] Comment on above: Performed By: #### H CGQNT, CBC #### [address] HCG,Quantitativeon 4 HCG,Quantitative 3230.00 m[iU]/mL Normal [facility] Comment on above: Result Comment: Appr oximate Approximate hCG Gestational Age Range (mIU/ml) (weeks) 0.2-1 5-50 1-2 50-500 2-3 100-5,000 3-4 500-10,000 4-5 1,000-50,000 5-6 10,000-100,000 6-8 15,000-200,000 8-12 10,000-100,000 PERFORMED BY: [address] [place] [address] PATHOLOGIST BUSINESS SYSTEM MANAGER CHUY PALOMO M.D. Performed By: #### H CGQNT, CBC #### [facility] [address] [place] [id number] [place] Type and Screenon 04-29-2023 ABO and Rh group Nom (Bld) Blood group A Rh(D) positive Normal [facility] Leif 04-24-2023 L Specimen: [id number] Received: 04/24/23 Status: RUBINA Renahun Num: [id number] Spec Type: Surgical Subm Dr: CHUCK Astorga Tissues: A Products of Conception - Spontaneous or Missed (POC) Procedures: HE/3, Gross/Micro L4 Age/ Patient Sex Location Account Attending Physician Sarah Arce 23/F [place] [id number] MICHELE AstorgaS SPEC NUM: [id number] RECD: 04/24/23 STATUS: RUBINA SHARPE NUM: [id number] MARY: 04/24/23- SUBM DR: CHUCK Astorga ENTERED: 04/24/[address] [facility] [address]: SPEC TYPE: Surgical DEPT: S ENTERED BY: [id number] RECV BY: [id number] ORDERED: HE/3, Gross/Micro L4 ORDERED: HE/3, Gross/Micro [...] foot length of 0.7 cm from heel-to-toe. Bridge Mechanic sections are submitted in 3 cassettes as follows: A1-A2 - Villous tissue A3 - tissue CPT Codes 58685 Specimen: [id number] Received: 04/24/23-1156 Status: RUBINA Sharpe Num: [id number] Spec Type: Surgical Subm Dr: Nils Sarkar MD-NOMS Tissues: A Products of Conception - Spontaneous or Missed (POC) Procedures: HE/3, Michael/Lydia L4 Patient: Sarah Arce [id number] (Continued) Signed (signatur e on file) Tavia Abad MD 04/28/232320 [facility] CBC AUTO DIFFon 10-02-2020 BASO # 0.0 103/ul Normal 0.0-0.1 [facility] Comment on above: Performed By: #### U LYDIA, UAIND #### [facility] [address] [place] [address] Vnadana Indira Basophils/100 WBC (Bld) 0.1 % Critically low 0.2-2.0 [facility] Comment on above: Performed By: #### U MICRO, UACSIND #### [facility] [address] [place] [address] Vandana Indira EO # 0.0 103/ul Normal 0.0-0.7 [facility] Comment on above: Performed By: #### U MICRO, UACSIND #### [facility] [address] [place] [address] Vandana Indira Eosinophils/100 WBC (Bld) 0.0 % Critically low 0.9-7.0 [facility] Comment on above: Performed By: #### U MICRO, UACSIND #### [facility] [address] [place] [address] Vandanadave Jacobson Erythrocyte distribution width (RBC) [Ratio] 15.9 % Critically high 11.0-15.0 [facility] Comment on above: Performed By: #### U MICRO, UACSIND #### [facility] [address] [place] [address] Vandana Indira Hematocrit (Bld) [Volume fraction] 33.3 % Critically low 36.0-48.0 [facility] Comment on above: Performed By: #### U MICRO, UACSIND #### [facility] [address] [place] [address] Vandana Indira Hemoglobin (Bld) [Mass/Vol] 11.2 g/dL Critically low 12.0-16.0 [facility] Comment on above: Performed By: #### U MICRO, UACSIND #### [facility] [address] [place] [address] Vandana Indira IG # 0.07 10e3/ul Critically high 0.00-0.03 [facility] Comment on above: Performed By: #### U MICRO, UACSIND #### [facility] [address] [place] [address] Vadnana Indira IG % 0.4 % Normal 0.0-0.5 [facility] Comment on above: Performed By: #### U MICRO, UACSIND #### [facility] [address] [place] [id number] Vandana Indira LYMPH # 1.9 103/ul Normal 1.2-3.8 [facility] Comment on above: Performed By: #### U MICRO, UACSIND #### [facility] [address] [place] [id number] Vandana Indira Lymphocytes/100 WBC (Bld) 11.4 % Critically low 20.5-60.0 [facility] Comment on above: Performed By: #### U MICRO, UACSIND #### [facility] [address] [place] [id number] Vandana Indira MANUAL DIFF REQ NO Normal [facility] Comment on above: Performed By: #### U MICRO, UACSIND #### [facility] [address] [place], [place] [id number] Vandana Indira MCH (RBC) [Entitic mass] 27.7 pg Normal 26.7-34.0 [facility] Comment on above: Performed By: #### U MICRO, UACSIND #### [facility] [address] [place] [address] Vandana Indira MCHC (RBC) [Mass/Vol] 33.6 g/dL Normal 29.9-35.2 [facility] Comment on above: Performed By: #### U MICRO, UACSIND #### [facility] [address] [place], [place] [id number] Vandana Indira MCV (RBC) [Entitic vol] 82.4 fL Normal 81.0-99.0 [facility] Comment on above: Performed By: #### U MICRO, UACSIND #### [facility] [address] [place] [id number] Vandana Indira MONO # 1.0 103/ul Critically high 0.3-0.8 [facility] Comment on above: Performed By: #### U MICRO, UACSIND #### [facility] [address] [place] [address] Vandana Indira Monocytes/100 WBC (Bld) 6.3 % Normal 1.7-12.0 [facility] Comment on above: Performed By: #### U MICRO, UACSIND #### [facility] [address] [place] [id number] Vandana Jacobson NEUT # 13.4 103/ul Critically high 1.4-6.5 [facility] Comment on above: Performed By: #### U MICRO, UACSIND #### [facility] [address] [place] [id number] Vandana Jacobson Neutrophils/100 WBC (Bld) 81.8 % Critically high 43.0-75.0 [facility] Comment on above: Performed By: #### U MICRO, UACSIND #### [facility] [address] [place], [place] [id number] Vandana Jacobson Platelet mean volume (Bld) [Entitic vol] 10.3 fL Normal 9.5-13.5 [facility] Comment on above: Performed By: #### U MICRO, UACSIND #### [facility] [address] [place], [place] [id number] Vandana Jacobson PLT 202 103/ul Normal 150-450 [facility] Comment on above: Performed By: #### U MICRO, UACSIND #### [facility] [address] [place], [place] [phone] Vandana Jacobson RBC 4.04 106/ul Critically low 4.20-5.40 [facility] Comment on above: Performed By: #### U MICRO, UACSIND #### [facility] [address] [place], [place] [phone] Vandana Jacobson WBC 16.4 103/ul Critically high 4.0-11.0 [facility] Comment on above: Performed By: #### U MICRO, UACSIND #### [facility] [address] [place], [place] [id number] Vandana Jacobson ASYMPTOMATIC COVID-19 ANTIGE Non 10-01-2020 EUA Statement SEE BELOW Normal [facility] Comment on above: Result Comment: This test [...] sooner. Performed By: #### C VDAGA #### [facility] [address] [place] [address] Vandana Jacobson SARS-CoV-2 (COVID-19) RNA RAMA+probe Ql (Unsp spec) Negative Normal NEGATIVE [facility] Comment on above: Result Comment: Nega tive results are presumptive. They do not preclude infection and should not be used as the sole basis for treatment decisions. Additional confirmatory testing by a molecular method should be considered. Performed By: #### C VDAGA #### [facility] [address] [place] [address] Vandana Indira CBC AUTO DIFFon 10-01-2020 BASO # 0.0 103/ul Normal 0.0-0.1 [facility] Comment on above: Performed By: #### D RUGRPD #### [facility] [address] [place] [address] Vandana Indira Basophils/100 WBC (Bld) 0.1 % Critically low 0.2-2.0 [facility] Comment on above: Performed By: #### D RUGRPD #### [facility] [address] [place] [address] Vandana Indira EO # 0.0 103/ul Normal 0.0-0.7 [facility] Comment on above: Performed By: #### D RUGRPD #### [facility] [address] [place], [place] [id number] Vandana Indira Eosinophils/100 WBC (Bld) 0.1 % Critically low 0.9-7.0 [facility] Comment on above: Performed By: #### D RUGRPD #### [facility] [address] [id number] Vandana Indira Erythrocyte distribution width (RBC) [Ratio] 15.8 % Critically high 11.0-15.0 [facility] Comment on above: Performed By: #### D RUGRPD #### [facility] [address] [place], [place] [id number] Vandana Indira Hematocrit (Bld) [Volume fraction] 40.2 % Normal 36.0-48.0 [facility] Comment on above: Performed By: #### D RUGRPD #### [facility] [address] [place], [place] [id number] Vandana Indira Hemoglobin (Bld) [Mass/Vol] 13.4 g/dL Normal 12.0-16.0 [facility] Comment on above: Performed By: #### D RUGRPD #### [facility] [address] [place], [place] [id number] Vandana Indira IG # 0.04 10e3/ul Critically high 0.00-0.03 [facility] Comment on above: Performed By: #### D RUGRPD #### [facility] [address] [place], [place] [id number] Vandana Indira IG % 0.4 % Normal 0.0-0.5 [facility] Comment on above: Performed By: #### D RUGRPD #### [facility] [address] [place], [place] [id number] Vandana Indira LYMPH # 1.5 103/ul Normal 1.2-3.8 [facility] Comment on above: Performed By: #### D RUGRPD #### [facility] [address] [place], [place] [id number] Vandana Indira Lymphocytes/100 WBC (Bld) 14.7 % Critically low 20.5-60.0 [facility] Comment on above: Performed By: #### D RUGRPD #### [facility] [address] [place], [place] [id number] Vandana Indira MANUAL DIFF REQ NO Normal [facility] Comment on above: Performed By: #### D RUGRPD #### [facility] [address] [place], [place] [address] Vandana Jacobson MCH (RBC) [Entitic mass] 27.3 pg Normal 26.7-34.0 [facility] Comment on above: Performed By: #### D RUGRPD #### [facility] [address] [place], [place] [address] Vandana Jacobson MCHC (RBC) [Mass/Vol] 33.3 g/dL Normal 29.9-35.2 [facility] Comment on above: Performed By: #### D RUGRPD #### [facility] [address] [place], [place] [address] Vandanadave Jacobson MCV (RBC) [Entitic vol] 82.0 fL Normal 81.0-99.0 [facility] Comment on above: Performed By: #### D RUGRPD #### [facility] [address] [place], [place] [id number] Vandana Jacobson MONO # 0.5 103/ul Normal 0.3-0.8 [facility] Comment on above: Performed By: #### D RUGRPD #### [facility] [address] [place], [place] [id number] Vandana Jacobson Monocytes/100 WBC (Bld) 5.2 % Normal 1.7-12.0 [facility] Comment on above: Performed By: #### D RUGRPD #### [facility] [address] [place], [place] [id number] Vandana Jacobson NEUT # 8.1 103/ul Critically high 1.4-6.5 [facility] Comment on above: Performed By: #### D RUGRPD #### [facility] [address] [place], [place] [id number] Vandana Indira Neutrophils/100 WBC (Bld) 79.5 % Critically high 43.0-75.0 [facility] Comment on above: Performed By: #### D RUGRPD #### [facility] [address] [id number] Vandanadave Jacobson Platelet mean volume (Bld) [Entitic vol] 10.6 fL Normal 9.5-13.5 [facility] Comment on above: Performed By: #### D RUGRPD #### [facility] [address] [address] Vandana Indira PLT 256 103/ul Normal 150-450 [facility] Comment on above: Performed By: #### D RUGRPD #### [facility] [address] [address] Vandana Indira RBC 4.90 106/ul Normal 4.20-5.40 [facility] Comment on above: Performed By: #### D RUGRPD #### [facility] [address] [address] Vandana Indira WBC 10.2 103/ul Normal 4.0-11.0 [facility] Comment on above: Performed By: #### Ceci RUGRPD #### [facility] [address] [place] [address] Vandana Indira DRUG SCREEN RAPID (URINE)on 10-01-2020 AMP Negative Normal NEGATIVE [facility] Comment on above: Performed By: #### Ceci RUGRPD #### [facility] [address] [address] Vandana Indira BAR Negative Normal NEGATIVE [facility] Comment on above: Performed By: #### Ceci RUGRPD #### [facility] [address] [place] [address] Vandana Indira BUP Negative Normal NEGATIVE [facility] Comment on above: Performed By: #### Ceci RUGRPD #### [facility] [address] [place] [address] Vandana Indira BZO Negative Normal NEGATIVE [facility] Comment on above: Performed By: #### Ceci RUGRPD #### [facility] [address] [place] [address] Vandana Indira ROLANDA Negative Normal NEGATIVE [facility] Comment on above: Performed By: #### D RUGRPD #### [facility] [address] [place] [address] Vandana Indira CUT-OFFS SEE BELOW Normal [facility] Comment on above: Result Comment: AMP [...] ng/mL Performed By: #### D RUGRPD #### [facility] [address] [place] [address] DRUG CUT HEADER DRUG CLASS TEST SYSTEM CUT-OFF CONCENTRATIONS ARE FOLLOWS: Normal [facility] Comment on above: Performed By: #### D RUGRPD #### [facility] [address] [place] [address] Vandana Indira mAMP Negative Normal NEGATIVE [facility] Comment on above: Performed By: #### D RUGRPD #### [facility] [address] [place] [address] Vandana Indira MTD Negative Normal NEGATIVE [facility] Comment on above: Performed By: #### D RUGRPD #### [facility] [address] [place] [address] Vandana Indira OPI Negative Normal NEGATIVE [facility] Comment on above: Performed By: #### D RUGRPD #### [facility] [address] [place] [address] Vandana Indira OXY Negative Normal NEGATIVE [facility] Comment on above: Performed By: #### D RUGRPD #### [facility] [address] [place] [address] Indira PCP Negative Normal NEGATIVE [facility] Comment on above: Performed By: #### D RUGRPD #### [facility] [address] [place] [address] Vandana Indira PPX Negative Normal NEGATIVE [facility] Comment on above: Performed By: #### D RUGRPD #### [facility] [address] [place] [address] Vandana Jacobson TCA Negative Normal NEGATIVE [facility] Comment on above: Performed By: #### D RUGRPD #### [facility] [address] [id number] Vandana Jacobson THC Negative Normal NEGATIVE [facility] Comment on above: Performed By: #### D RUGRPD #### [facility] [address] [place], [place] [address] Vandana Jacobson TYPE AND SCREENon 10-01-2020 TYPE AND SCREEN Negative Normal [facility] Comment on above: Performed By: #### D RUGRPD #### [facility] [address] [place], [place] [address] Vandana Jacobson US PREG GROWTHon 09-12-2020 US [...] EFW: 6 lbs. 13 oz., 58% FL/AC: [id number] FL/BPD: 0.357118 HC/AC: [id number] GESTATIONAL AGE: Age by EDC: 36 weeks 6 days YUE by EDC: 10/04/2020 Age by US: 37 weeks 0 days YUE by US: 10/03/2020 IMPRESSION: Normal interval growth Electronically authenticated by: KECIA LEI Date: 2020-09-12 13:13 Normal [facility] HEMOGLOBINOPATHY FRACTIONATI ON CASCADEon 09-11-2020 HGB A 97.4 % Normal 96.4-98.8 [facility] Comment on above: Performed By: #### U MICRO, UACSIND #### [facility] [address] [address] Vandana Jacobson HGB A2 2.6 % Normal 1.8-3.2 [facility] Comment on above: Performed By: #### U MICRO, UACSIND #### [facility] [address] [place] [address] Vandana Jacobson HGB F 0.0 % Normal 0.0-2.0 [facility] Comment on above: Performed By: #### U MICRO, UACSIND #### [facility] [address] [address] Vandana Jacobson HGB S 0.0 % Normal 0.0 [facility] Comment on above: Performed By: #### U MICRO, UACSIND #### [facility] [address] [place], [place] [id number] Vandana Jacobson Interpretation: Comment Normal [facility] Comment on above: Result Comment: Norm al hemoglobin present; no hemoglobin variant or thalassemia observed. Performed By: #### U MICRO, UACSIND #### [facility] [address] [place] [address] Vandana Jacobson CBC AUTO DIFFon 09-10-2020 BASO # 0.0 103/ul Normal 0.0-0.1 [facility] Comment on above: Performed By: #### C BC #### [facility] [address] [place] [address] Vandana Jacobson Basophils/100 WBC (Bld) 0.1 % Critically low 0.2-2.0 [facility] Comment on above: Performed By: #### C BC #### [facility] [address] [place] [address] Vandana Jacobson EO # 0.0 103/ul Normal 0.0-0.7 [facility] Comment on above: Performed By: #### C BC #### [facility] [address] [place] [address] Vandana Jacobson Eosinophils/100 WBC (Bld) 0.4 % Critically low 0.9-7.0 [facility] Comment on above: Performed By: #### C BC #### [facility] [address] [place] [address] Vandana Lien Erythrocyte distribution width (RBC) [Ratio] 16.0 % Critically high 11.0-15.0 [facility] Comment on above: Performed By: #### C BC #### [facility] [address] [place] [address] Vandana Jacobson Hematocrit (Bld) [Volume fraction] 36.5 % Normal 36.0-48.0 [facility] Comment on above: Performed By: #### C BC #### [facility] [address] [place] [address] Vandana Jacobson Hemoglobin (Bld) [Mass/Vol] 12.2 g/dL Normal 12.0-16.0 [facility] Comment on above: Performed By: #### C BC #### [facility] [address] [place] [address] Vandana Jacobson IG # 0.07 10e3/ul Critically high 0.00-0.03 [facility] Comment on above: Performed By: #### C BC #### [facility] [address] [place] [address] Vandana Jacobson IG % 0.9 % Critically high 0.0-0.5 [facility] Comment on above: Performed By: #### C BC #### [facility] [address] [place] [address] Vandana Jacobson LYMPH # 1.9 103/ul Normal 1.2-3.8 [facility] Comment on above: Performed By: #### C BC #### [facility] [address] [place] [address] Vandana Jacobson Lymphocytes/100 WBC (Bld) 23.7 % Normal 20.5-60.0 [facility] Comment on above: Performed By: #### C BC #### [facility] [address] [place], [place] [id number] Vandana Jacobson MANUAL DIFF REQ NO Normal [facility] Comment on above: Performed By: #### C BC #### [facility] [address] [place], [place] [id number] Vandana Jacobson MCH (RBC) [Entitic mass] 27.4 pg Normal 26.7-34.0 [facility] Comment on above: Performed By: #### C BC #### [facility] [address] [place], [place] [address] Vandanadave Jacobson MCHC (RBC) [Mass/Vol] 33.4 g/dL Normal 29.9-35.2 [facility] Comment on above: Performed By: #### C BC #### [facility] [address] [place], [place] [address] Vandana Indira MCV (RBC) [Entitic vol] 82.0 fL Normal 81.0-99.0 [facility] Comment on above: Performed By: #### C BC #### [facility] [address] [id number] Vandana Indira MONO # 0.7 103/ul Normal 0.3-0.8 [facility] Comment on above: Performed By: #### C BC #### [facility] [address] [place], [place] [id number] Vandana Indira Monocytes/100 WBC (Bld) 8.8 % Normal 1.7-12.0 [facility] Comment on above: Performed By: #### C BC #### [facility] [address] [place], [place] [id number] Vandana Indira NEUT # 5.3 103/ul Normal 1.4-6.5 [facility] Comment on above: Performed By: #### C BC #### [facility] [address] [place], [place] [id number] Vandana Indira Neutrophils/100 WBC (Bld) 66.1 % Normal 43.0-75.0 [facility] Comment on above: Performed By: #### C BC #### [facility] [address] [place] [address] Vandana Indira Platelet mean volume (Bld) [Entitic vol] 11.6 fL Normal 9.5-13.5 [facility] Comment on above: Performed By: #### C BC #### [facility] [address] [id number] Vandana Indira PLT 221 103/ul Normal 150-450 [facility] Comment on above: Performed By: #### C BC #### [facility] [address] [place] [address] Vandana Jacobson RBC 4.45 106/ul Normal 4.20-5.40 [facility] Comment on above: Performed By: #### C BC #### [facility] [address] [place] [address] Vandana Jacobson WBC 8.1 103/ul Normal 4.0-11.0 [facility] Comment on above: Performed By: #### C BC #### [facility] [address] [place] [address] Vandana Jacobson VAGINITIS/VAGINOSIS DNA PROB Miller 09-08-2020 Nichole species Negative Normal Negative [facility] Comment on above: Performed By: #### V AGINT #### [facility] [address] [place] [address] Vandana Jacobson Gardnerella vaginalis Negative Normal Negative [facility] Comment on above: Performed By: #### V AGINT #### [facility] [address] [place] [address] Vandana Jacobson Trichomonas vaginalis Negative Normal Negative [facility] Comment on above: Performed By: #### V AGINT #### [facility] [address] [place] [address] Vandana Jacobson CHLAMYDIA/GONOCOCCUS RAMA (SW AB/URINE/PAPon 09-07-2020 Chlamydia trachomatis, RAMA Negative Normal Negative [facility] Comment on above: Performed By: #### D RUGRPD #### [facility] [address] [place] [address] Vandana Jacobson Neisseria gonorrhoeae, RAMA Negative Normal Negative [facility] Comment on above: Performed By: #### D RUGRPD #### [facility] [address] [place], [place] [id number] Vandana Jacobson GROUP B STREP CULTUREon S. agalactiae Ag Ql (Unsp spec) Culture Observations: NEGATIVE FOR GROUP B STREPTOCOCCUS. Normal [facility] Comment on above: Performed By: #### D RUGRPD #### [facility] [address] [place] [address] Vandana Indira CULTURE URINEon 08-31-2020 CULTURE URINE Culture Observations: LIGHT GROWTH OF MIXED GENITAL TEDDY. NO POTENTIAL PATHOGENS SEEN. Normal [facility] Comment on above: Performed By: #### D RUGRPD #### [facility] [address] [place] [address] Vandana Indira UA (CLEAN/CATCH) MAINTENANCE OF WAY SUPERVISOR/MICRO I F IND.on 08-31-2020 Bilirubin Ql (U) Negative Normal NEGATIVE [facility] Comment on above: Performed By: #### U MICRO, UACSIND #### [facility] [address] [place] [address] Vandana Indira Clarity (U) SL CLOUDY Abnormal CLEAR [facility] Comment on above: Performed By: #### U MICRO, UACSIND #### [facility] [address] [place] [address] Vandana Indira Color (U) LT. YELLOW Normal YELLOW [facility] Comment on above: Performed By: #### U MICRO, UACSIND #### [facility] [address] [place] [address] Vandana Indira Glucose Ql (U) Negative Normal NEGATIVE [facility] Comment on above: Performed By: #### U MICRO, UACSIND #### [facility] [address] [place] [address] Vandana Indira Hemoglobin Ql (U) Negative Normal NEGATIVE [facility] Comment on above: Performed By: #### U MICRO, UACSIND #### [facility] [address] [place] [address] Vandana Indira Ketones Ql (U) 15 mg/dl Abnormal NEGATIVE [facility] Comment on above: Performed By: #### U MICRO, UACSIND #### [facility] [address] [place] [address] Vandana Indira LEUKOCYTES SMALL Abnormal NEGATIVE [facility] Comment on above: Performed By: #### U MICRO, UACSIND #### [facility] [address] [place] [address] Vandana Indira Nitrite Ql (U) Negative Normal NEGATIVE [facility] Comment on above: Performed By: #### U MICRO, UACSIND #### [facility] [address] [place] [address] Vandanadave Jacobson pH (U) 7.0 [pH] Normal 5-9 [facility] Comment on above: Performed By: #### U MICRO, UACSIND #### [facility] [address] [place] [address] Vandana Jacobson SPEC GRAVITY 1.015 Normal 1.005-<=1.025 [facility] Comment on above: Performed By: #### U MICRO, UACSIND #### [facility] [address] [place] [address] Vandanadave Jacobson UA PROTEIN Negative Normal NEGATIVE/ TRACE [facility] Comment on above: Performed By: #### U MICRO, UACSIND #### [facility] [address] [place] [address] Vandana Jacobson UR MICRO IND INDICATED Normal [facility] Comment on above: Performed By: #### U MICRO, UACSIND #### [facility] [address] [place] [address] Vandana Jacobson Urobilinogen Qn (U) 0.2 {Richard'U}/dL Normal 0.2 - 1. 0 [facility] Comment on above: Performed By: #### U MICRO, UACSIND #### [facility] [address] [place] [address] Vandanadave Jacobson URINE MICROSCOPIC ONLYon BACTERIA SMALL Abnormal NONE SEEN [facility] Comment on above: Performed By: #### U MICRO, UACSIND #### [facility] [address] [place] [address] Vandana Jacobson Bacteria identified Cx Nom (U) INDICATED Normal [facility] Comment on above: Performed By: #### U MICRO, UACSIND #### [facility] [address] [place] [address] Vandana Indira CAST NONE SEEN Normal NONE SEEN [facility] Comment on above: Performed By: #### U MICRO, UACSIND #### [facility] [address] [place] [address] Vandana Indira Crystals LM Nom (Urine sed) NONE SEEN Normal NONE SEEN [facility] Comment on above: Performed By: #### U MICRO, UACSIND #### [facility] [address] [place] [address] Vandana Indira Epithelial cells LM Ql (Urine sed) MODERATE Abnormal NONE SEEN /RARE [facility] Comment on above: Performed By: #### U MICRO, UACSIND #### [facility] [address] [place] [address] Vandana Indira MUCOUS NONE SEEN Normal NONE SEEN [facility] Comment on above: Performed By: #### U MICRO, UACSIND #### [facility] [address] [place] [address] Vandana Indira RBC NONE SEEN Abnormal 0-2 [facility] Comment on above: Performed By: #### U MICRO, UACSIND #### [facility] [address] [place] [address] Vandana Indira WBC NONE SEEN Normal NONE SEEN [facility] Comment on above: Performed By: #### U MICRO, UACSIND #### [facility] [address] [place], [place] [id number] Vandana Indira CULTURE URINEon 08-01-2020 CULTURE URINE Culture Observations: LIGHT GROWTH OF MIXED GENITAL TEDDY. NO POTENTIAL PATHOGENS SEEN. Normal [facility] Comment on above: Performed By: #### U RCX #### [facility] [address] [place] [address] Vandana Indira UA RANDOM W/MICROSCOPICon BACTERIA TRACE Abnormal NONE SEEN [facility] Comment on above: Performed By: #### U AMIC #### [facility] [address] [place] [address] Vandana Indira Bilirubin Ql (U) Negative Normal NEGATIVE The [facility] Comment on above: Performed By: #### U AMIC #### [facility] [address] [place] [address] Vandana Indira CAST NONE SEEN Normal NONE SEEN [facility] Comment on above: Performed By: #### U AMIC #### [facility] [address] [place], [place] [address] Vandana Indira Clarity (U) CLEAR Normal CLEAR [facility] Comment on above: Performed By: #### U AMIC #### [facility] [address] [id number] Vandana Indira Color (U) LT. YELLOW Normal YELLOW [facility] Comment on above: Performed By: #### U AMIC #### [facility] [address] [id number] Vandana Indira Crystals LM Nom (Urine sed) NONE SEEN Normal NONE SEEN [facility] Comment on above: Performed By: #### U AMIC #### [facility] [address] [address] Vandana Indira Epithelial cells LM Ql (Urine sed) FEW Abnormal NONE SEEN /RARE [facility] Comment on above: Performed By: #### U AMIC #### [facility] [address] [place] [address] Vandana Indira Glucose Ql (U) Negative Normal NEGATIVE The [facility] Comment on above: Performed By: #### U AMIC #### [facility] [address] [place] [address] Vandana Indira Hemoglobin Ql (U) Negative Normal NEGATIVE The [facility] Comment on above: Performed By: #### U AMIC #### [facility] [address] [place] [address] Vandana Indira Ketones Ql (U) Negative Normal NEGATIVE The [facility] Comment on above: Performed By: #### U AMIC #### [facility] [address] [place] [address] Vandana Indira LEUKOCYTES Negative Normal NEGATIVE [facility] Comment on above: Performed By: #### U AMIC #### [facility] [address] [place], [place] [id number] Vandana Indira MUCOUS NONE SEEN Normal NONE SEEN [facility] Comment on above: Performed By: #### U AMIC #### [facility] [address] [place], [place] [id number] Vandana Indira Nitrite Ql (U) Negative Normal NEGATIVE The [facility] Comment on above: Performed By: #### U AMIC #### [facility] [address] [place], [place] [phone] Vandanadave Jacobson pH (U) 7.5 [pH] Normal 5-9 [facility] Comment on above: Performed By: #### U AMIC #### [facility] [address] [place] [address] Vandanadave Jacobson RBC 0-2 Normal 0-2 [facility] Comment on above: Performed By: #### U AMIC #### [facility] [address] [place] [address] Vandana Jacobson SPEC GRAVITY 1.015 Normal 1.005-<=1.025 The [facility] Comment on above: Performed By: #### U AMIC #### [facility] [address] [place] [address] Vandanadave Jacobson UA PROTEIN Negative Normal NEGATIVE/ TRACE [facility] Comment on above: Performed By: #### U AMIC #### [facility] [address] [place] [address] Vandanadave Jacobson Urobilinogen Qn (U) 0.2 {Richard'U}/dL Normal 0.2 - 1. 0 [facility] Comment on above: Performed By: #### U AMIC #### [facility] [address] [place] [address] Vandana Indira WBC 0-2 Abnormal NONE SEEN [facility] Comment on above: Performed By: #### U AMIC #### [facility] [address] [place] [address] Vandanadave Jacobson CBC AUTO DIFFon 12-17-2019 BASO # 0.0 103/ul Normal 0.0-0.1 [facility] Comment on above: Performed By: #### C BC #### [facility] [address] [place] [address] Vandana Jacobson Basophils/100 WBC (Bld) 0.1 % Critically low 0.2-2.0 [facility] Comment on above: Performed By: #### C BC #### [facility] [address] [place] [address] Vandana Indira EO # 0.1 103/ul Normal 0.0-0.7 [facility] Comment on above: Performed By: #### C BC #### [facility] [address] [place] [address] Vandana Indira Eosinophils/100 WBC (Bld) 0.9 % Normal 0.9-7.0 [facility] Comment on above: Performed By: #### C BC #### [facility] [address] [place] [address] Vandana Indira Erythrocyte distribution width (RBC) [Ratio] 14.3 % Normal 11.0-15.0 [facility] Comment on above: Performed By: #### C BC #### [facility] [address] [place] [address] Vandana Indira Hematocrit (Bld) [Volume fraction] 40.5 % Normal 36.0-48.0 [facility] Comment on above: Performed By: #### C BC #### [facility] [address] [place] [address] Vandana Indira Hemoglobin (Bld) [Mass/Vol] 13.2 g/dL Normal 12.0-16.0 [facility] Comment on above: Performed By: #### C BC #### [facility] [address] [place] [address] Vandana Indira IG # 0.01 10e3/ul Normal 0.00-0.03 [facility] Comment on above: Performed By: #### C BC #### [facility] [address] [place] [address] Vandana Indira IG % 0.1 % Normal 0.0-0.5 [facility] Comment on above: Performed By: #### C BC #### [facility] [address] [place] [address] Vandana Indira LYMPH # 2.0 103/ul Normal 1.2-3.8 [facility] Comment on above: Performed By: #### C BC #### [facility] [address] [place] [address] Vandana Indira Lymphocytes/100 WBC (Bld) 27.9 % Normal 20.5-60.0 [facility] Comment on above: Performed By: #### C BC #### [facility] [address] [phone] Vandana Indira MANUAL DIFF REQ NO Normal [facility] Comment on above: Performed By: #### C BC #### [facility] [address] [phone] Vandana Indira MCH (RBC) [Entitic mass] 25.7 pg Critically low 26.7-34.0 [facility] Comment on above: Performed By: #### C BC #### [facility] [address] [place] [address] Vandana Indira MCHC (RBC) [Mass/Vol] 32.6 g/dL Normal 29.9-35.2 [facility] Comment on above: Performed By: #### C BC #### [facility] [address] [place] [address] Vandana Indira MCV (RBC) [Entitic vol] 78.9 fL Critically low 81.0-99.0 [facility] Comment on above: Performed By: #### C BC #### [facility] [address] [place], [place] [phone] Vandana Indira MONO # 0.5 103/ul Normal 0.3-0.8 [facility] Comment on above: Performed By: #### C BC #### [facility] [address] [place], [place] [phone] Vandana Indira Monocytes/100 WBC (Bld) 7.0 % Normal 1.7-12.0 [facility] Comment on above: Performed By: #### C BC #### [facility] [address] [place] [address] Vandana Indira NEUT # 4.5 103/ul Normal 1.4-6.5 [facility] Comment on above: Performed By: #### C BC #### [facility] [address] [place], [place] [phone] Vandana Indira Neutrophils/100 WBC (Bld) 64.0 % Normal 43.0-75.0 [facility] Comment on above: Performed By: #### C BC #### [facility] [address] [place], [place] [phone] Vandana Jacobson Platelet mean volume (Bld) [Entitic vol] 8.9 fL Critically low 9.5-13.5 [facility] Comment on above: Performed By: #### C BC #### [facility] [address] [place], [place] [phone] Vandanadave Jacobson PLT 345 103/ul Normal 150-450 [facility] Comment on above: Performed By: #### C BC #### [facility] [address] [place] [address] Vandana Jacobson RBC 5.13 106/ul Normal 4.20-5.40 [facility] Comment on above: Performed By: #### C BC #### [facility] [address] [place] [address] Vandana Jacobson WBC 7.1 103/ul Normal 4.0-11.0 [facility] Comment on above: Performed By: #### C BC #### [facility] [address] [place] [address] Vandana Jacobson FERRITINon 12-17-2019 Ferritin [Mass/Vol] 27.0 ng/mL Normal 6.2-137.0 [facility] Comment on above: Performed By: #### D JUDI #### [facility] [address] [place] [address] Vandana Jacobson IRONon 12-17-2019 Iron [Mass/Vol] 35.0 ug/dL Critically low 37.0-170.0 [facility] Comment on above: Performed By: #### D JUDI #### [facility] [address] [place], [place] [phone] Vandana Jacobson PROF 14(COMP METB)on 020 Albumin [Mass/Vol] 3.7 g/dL Normal 3.5-5.0 The [facility] Comment on above: Performed By: #### C MP #### [facility] [address] [place], [place] [phone] Vandana Jacobson Albumin/Globulin [Mass ratio] 0.9 {ratio} Normal [facility] Comment on above: Performed By: #### C MP #### [facility] [address] [place], [place] [address] Vandana Indira ALP [Catalytic activity/Vol] 82 U/L Normal 38-126 [facility] Comment on above: Performed By: #### C MP #### [facility] [address] [phone] Vandana Indira ALT [Catalytic activity/Vol] 21 U/L Normal 9-52 [facility] Comment on above: Performed By: #### C MP #### [facility] [address] [phone] Vandana Indira Anion gap [Moles/Vol] 12.5 mmol/L Normal [facility] Comment on above: Performed By: #### C MP #### [facility] [address] [place] [address] Vandana Indira AST [Catalytic activity/Vol] 15 U/L Normal 14-36 [facility] Comment on above: Performed By: #### C MP #### [facility] [address] [place] [address] Vandana Indira Bilirubin [Mass/Vol] 0.3 mg/dL Normal 0.2-1.3 [facility] Comment on above: Performed By: #### C MP #### [facility] [address] [place], [place] [phone] Vandana Indira Calcium [Mass/Vol] 9.5 mg/dL Normal 8.4-10.2 [facility] Comment on above: Performed By: #### C MP #### [facility] [address] [place] [address] Vandana Indira Chloride [Moles/Vol] 104 mmol/L Normal 98-107 [facility] Comment on above: Performed By: #### C MP #### [facility] [address] [place], [place] [phone] Vandana Indira CO2 [Moles/Vol] 28.4 mmol/L Normal 22.0-30.0 [facility] Comment on above: Performed By: #### C MP #### [facility] [address] [place], [place] [phone] Vandana Indira Creatinine [Mass/Vol] 0.69 mg/dL Normal 0.52-1.04 [facility] Comment on above: Performed By: #### C MP #### [facility] [address] [place], [place] [address] Vandana Indira EGFR-AF JAMAICAN >60 Normal >=60 [facility] Comment on above: Performed By: #### C MP #### [facility] [address] [phone] Vandana Indira EGFR-NON AF JAMAICAN >60 Normal >=60 [facility] Comment on above: Performed By: #### C MP #### [facility] [address] [phone] Vandana Indira Globulin (S) [Mass/Vol] 4.1 g/dL Normal [facility] Comment on above: Performed By: #### C MP #### [facility] [address] [place] [address] Vandana Indira Glucose [Mass/Vol] 94 mg/dL Normal 74-106 [facility] Comment on above: Performed By: #### C MP #### [facility] [address] [place], [place] [phone] Vandana Indira Potassium [Moles/Vol] 3.9 mmol/L Normal 3.4-5.0 [facility] Comment on above: Performed By: #### C MP #### [facility] [address] [place], [place] [phone] Vandana Indira Protein [Mass/Vol] 7.8 g/dL Normal 6.1-8.2 [facility] Comment on above: Performed By: #### C MP #### [facility] [address] [place], [place] [phone] Vandana Indira Sodium [Moles/Vol] 141 mmol/L Normal 137-145 [facility] Comment on above: Performed By: #### C MP #### [facility] [address] [place], [place] [phone] Vandana Indira Urea nitrogen [Mass/Vol] 16.0 mg/dL Normal 7.0-17.0 [facility] Comment on above: Performed By: #### C MP #### [facility] [address] [phone] Vandanadave Jacobson Urea nitrogen/Creatinine [Mass ratio] 23.2 mg/mg Normal [facility] Comment on above: Performed By: #### C MP #### [facility] [address] [phone] Vandanadave Jacobson PROTIMEon 12-17-2019 INR Coag (PPP) [Relative time] 0.97 {INR} Normal [facility] Comment on above: Performed By: #### D RUGRPD #### [facility] [address] [place], [place] [phone] Vandana Indira INR GUIDELINES SEE BELOW Normal [facility] Comment on above: Result Comment: ABHIJIT RED INR: 2.0 - 3.0 CONDITIONS NOT LISTED BELOW 2.5 - 3.5 FOR PROSTHETIC HEART VALVE REPLACEMENT 2.5 - 3.5 RECURRENT THROMBOSIS Performed By: #### D RUGBELA #### [facility] [address] [address] Vandana Indira PT Coag (PPP) [Time] 10.3 s Normal 9.0-11.6 [facility] Comment on above: Performed By: #### D RUGRPD #### [facility] [address] [place] [address] Vandana Indira PT NORMAL PLEASE NOTE: NORMAL RANGE CHANGE 11-24-2013 DUE TO REAGENT LOT CHANGE [facility] Comment on above: Performed By: #### D RUGRPD #### [facility] [address] [address] Vandanadave Jacobson PTTon 12-17-2019 aPTT Coag (Bld) [Time] 30.7 s Normal 22.3-36.2 Th e [facility] Comment on above: Performed By: #### D RUGRPD #### [facility] [address] [place] [address] Vandana Indira PTT NORMAL PLEASE NOTE: NORMAL RANGE CHANGE 01-31-2015 DUE TO REAGENT LOT CHANGE Normal [facility] Comment on above: Performed By: #### D RUGSHANNAND #### [facility] [address] [place], [place] [address] Vandana Jacobson Vital Signs Date Time Vital Sign Value Performing Clinician Facility 04-30-2023 10:23-0500 Diastolic blood pressure 84 mm[Hg] PHYSICIAN NO [facility] 04-30-2023 10:23-0500 Heart rate 67 /min PHYSICIAN NO [facility] 04-30-2023 10:23-0500 Respiratory rate 18 /min PHYSICIAN NO [place] 04-30-2023 10:23-0500 SaO2% (BldA) [Mass fraction] 99 % PHYSICIAN NO [facility] 04-30-2023 10:23-0500 Systolic blood pressure 130 mm[Hg] PHYSICIAN NO [facility] 04-30-2023 08:53-0500 Body temperature 98.3 [degF] PHYSICIAN NO [place] 04-30-2023 08:12-0500 Inhaled oxygen flow rate 8 L/min PHYSICIAN NO [facility] 04-30-2023 07:44-0500 Body height 152.4 cm PHYSICIAN NO [facility] 04-30-2023 07:44-0500 Body mass index (BMI) [Ratio] 28.7 kg/m2 PHYSICIAN NO [facility] 04-30-2023 07:44-0500 Body weight 66.67 kg PHYSICIAN NO [facility] 04-24-2023 11:55-0500 Diastolic blood pressure 86 mm[Hg] PHYSICIAN NO [facility] 04-24-2023 11:55-0500 Heart rate 65 /min PHYSICIAN NO [facility] 04-24-2023 11:55-0500 Respiratory rate 16 /min PHYSICIAN NO [place] 04-24-2023 11:55-0500 SaO2% (BldA) [Mass fraction] 100 % PHYSICIAN NO [facility] 04-24-2023 11:55-0500 Systolic blood pressure 119 mm[Hg] PHYSICIAN NO [facility] 04-24-2023 11:07-0500 Body temperature 98 [degF] PHYSICIAN NO [place] 04-24-2023 10:42-0500 Inhaled oxygen flow rate 8 L/min PHYSICIAN NO [facility] 04-24-2023 08:52-0500 Body height 152.4 cm PHYSICIAN NO [facility] 04-24-2023 08:52-0500 Body mass index (BMI) [Ratio] 29 kg/m2 PHYSICIAN NO [facility] 04-24-2023 08:52-0500 Body weight 67.58 kg PHYSICIAN NO [facility] 04-20-2023 08:56-0500 Body mass index (BMI) [Ratio] 30.09 kg/m2 Nils Sarkar MD Work Phone: [facility] 04-20-2023 08:56-0500 Body weight 67.59 kg Nils Sarkar MD Work Phone: [facility] 04-20-2023 08:56-0500 Diastolic blood pressure 66 mm[Hg] Nils Sarkar MD Work Phone: [facility] 04-20-2023 08:56-0500 Systolic blood pressure 110 mm[Hg] Nils Sarkar MD Work Phone: [facility] Healthcare Encounters Encounter Date Encounter Type Care Provider Facility Start: 05-11-2023 End: 05-11-2023 ambulatory NILS SARKAR Not Available Start: 04-29-2023 End: 04-30-2023 ambulatory Nils Sarkar Facility:[facility] Start: 04-29-2023 End: 04-30-2023 Patient encounter procedure PHYSICIAN NO [facility] Start: 04-29-2023 End: 04-30-2023 ambulatory PHYSICIAN NO [facility] Work Phone: Start: 04-24-2023 End: 04-24-2023 ambulatory Nils Sarkar Facility:[facility] Start: 04-24-2023 End: 04-24-2023 Admission to same day surgery center PHYSICIAN NO [facility] Start: 04-24-2023 End: 04-24-2023 ambulatory PHYSICIAN NO [facility] Work Phone: Start: 04-20-2023 End: 04-20-2023 Office outpatient visit 10 minutes Nils Sarkar MD Work Phone: [facility] Comment on above: Missed ; Bleeding in early ; Vaginal discharge Start: 04-20-2023 End: 04-20-2023 ambulatory NILS SARKAR Not Available Start: 04-13-2023 End: 04-13-2023 ambulatory NILS ASRKAR Not Available Start: 04-12-2023 Chart abstracting Nils galicia MD Work Phone: [facility] Start: 10-08-2020 End: 10-08-2020 ambulatory KOFI CURRIE Facility:[facility] Start: 10-03-2020 ambulatory KOFI CURRIE Facility:[facility] 1 Start: 10-01-2020 End: 10-03-2020 Evaluation and management of inpatient DR TAE BURK Facility:[facility] Start: 09-12-2020 End: 09-13-2020 ambulatory 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 PULL MACHINE OPERATOR LLUVIA TATYANA Facility:[facility] Start: 09-10-2020 End: 09-11-2020 ambulatory KOFI CURRIE Facility:[facility] Start: 09-06-2020 End: 09-06-2020 ambulatory EAR PULL MACHINE OPERATOR LLUVIA AICCAROLINAZ Facility:[facility] Start: 08-31-2020 End: 08-31-2020 ambulatory EAR PULL MACHINE OPERATOR LLUVIA AICHHOLZ Facility:[facility] Start: 08-01-2020 End: 08-01-2020 ambulatory EAR PULL MACHINE OPERATOR LLUVIA AICHHOLZ Facility:[facility] Start: 12-17-2019 End: 12-18-2019 ambulatory EAR PULL MACHINE OPERATOR LLUVIA AICHHOLZ Facility:[facility] Procedures Date Procedure Procedure Detail Performing Clinician Start: 04-30-2023 Dilation and curetta ge of uterus PHYSICIAN NO FAMILY Start: 04-30-2023 Pelvic echography PHYSI RADHA NO FAMILY Start: 04-30-2023 Transvaginal echography PHYSICIAN NO FAMILY Start: 04-29-2023 Antibody screen Nils Sarkar Comment on above: Result Comment: PERF ORMED BY: [facility] [address] [place] [address] PATHOLOGIST BUSINESS SYSTEM MANAGER CHUY PALOMO M.D. Start: 04-24-2023 Dilation and curetta ge of uterus PHYSICIAN NO FAMILY Start: 10-01-2020 Delivery of Products of Conception, External Approach TERENCE JOE Start: 10-01-2020 Repair Vulva, Oxidized Finish Plater al Approach TERENCE JOE Plan of Treatment Date Care Activity Detail Author Start: 04-30-2023 [facility] Start: 04-24-2023 [facility] Start: 04-24-2023 End: 04-24-2023 [facility] Start: 04-20-2023 End: 04-20-2024 hCG, quantitative [facility] Work Phone: Comment on above: Ordered: 04/20/2023 Expected: 04/20/2023 (Approximate), Expires: 04/20/2024 Start: 04-13-2023 End: 04-13-2023 Patient encounter procedure 04/13/2023 9:45 AM EST Office Visit [facility] [address] [place] [address] Nils Sarkar MD [address] [place] [address] [facility] Start: 04-13-2023 End: 04-13-2023 Professional / ancillary services management 04/13/2023 9:30 AM EST Ancillary Procedure [facility] [address] [place] [id number] [facility] Basophils [#/volume] in Blood by Automated count [facility] Basophils/100 leukoc ytes in Blood by Automated count [facility] Eosinophils/100 leukocytes in Blood by Automated count [facility] Erythrocyte distribu tion width [Ratio] by Automated count [facility] Erythrocytes [#/volu me] in Blood [facility] Hematocrit [Volume Fraction] of Blood [facility] Hemoglobin [Mass/vol ume] in Blood [facility] Leukocytes [#/volume ] corrected for nucleated erythrocytes in Blood by Automated coun [facility] Leukocytes [#/volume ] in Blood [facility] Lymphocytes [#/volum e] in Blood by Automated count [facility] Lymphocytes/100 leukocytes in Blood by Automated count [facility] MCH [Entitic mass] b y Automated count [facility] [facility]C [Mass/volume] b y Automated count [facility] MCV [Entitic volume] by Automated count [facility] Monocytes [#/volume] in Blood by Automated count [facility] Monocytes/100 leukoc ytes in Blood by Automated count [facility] MYCOPLASMA/UREAPLASM A PANEL MYCOPLASMA/UREAPLASMA PANEL Lab Routine Vaginal discharge Ordered: 04/20/2023 [facility] Comment on above: Ordered: 04/20/2023 Neutrophils [#/volum e] in Blood by Automated count [facility] Neutrophils/100 leukocytes in Blood by Automated count [facility] Nucleated erythrocyt es [Presence] in Blood by Automated count [facility] Patient Education [facility] Work Phone: Patient referral [facility] Work Phone: Platelet mean volume [Entitic volume] in Blood by Automated [facility] Platelets [#/volume] in Blood [facility] Payers Date Payer Category Payer Self-pay 2023 Unknown BCBS BCBS xxxxxx [id number] 2023-Present [phone] [address] [place] [address] [id number] 2023 Unknown [id number] 1998 Unknown [id number] 2.16.840.1.741679.3.579.2.593 1998 Unknown [id number] 2.16.840.1.219126.3.579.2.593 1998 Unknown [id number] 2.16.840.1.767217.3.579.2.593 1998 Unknown [id number] 2.16.840.1.876705.3.579.2.593 1998 Unknown [id number] 2.16.840.1.249954.3.579.2.593 1998 Unknown [id number] 2.16.840.1.331630.3.579.2.593 1998 Unknown [id number] 2.16.840.1.696460.3.579.2.593 1998 Unknown [id number] 2.16.840.1.657909.3.579.2.593 1998 Unknown [id number] 2.16.840.1.248994.3.579.2.593 1998 Unknown [id number] 2.16.840.1.628437.3.579.2.1259 1998 Unknown [id number] 2.16.840.1.721125.3.579.2.1259 1998 Unknown [id number] 2.16.840.1.699995.3.579.2.1259 1998 Unknown [id number] 2.16.840.1.021098.3.579.2.1259 1998 Unknown [id number] 2.16.840.1.237947.3.579.2.1259 1998 Unknown [id number] 2.16.840.1.203115.3.579.2.1259 1959 Unknown [id number] 1959 Unknown [id number] Unknown [id number] 2.16.840.1.920592.3.579.2.531 Unknown [id number] 2.16.840.1.455158.3.579.2.531 Social History Date Type Detail Facility Start: 08-13-2022 End: 04-30-2023 Tobacco smoking status [facility] Never smoked tobacco [facility] Start: 08-13-2022 Tobacco use and exposure Smokeless tobacco non-user [facility] Start: 04-07-2023 End: 04-20-2023 Alcohol intake Ex-drinker (finding) [facility] Start: 08-13-2022 End: 04-13-2023 History of Social function [facility] Start: 08-13-2022 End: 04-13-2023 Tobacco use panel [facility] Start: 08-13-2022 Alcohol Comment none with [facility] Start: 2000 Sex Assigned At Not on file [facility] The thought of gilberto salinas myself has occurred to me Never [facility] Start: 2000 Sex Assigned At Female F [facility] Goals Date Patient Goal Desired Activity /State Functional Status Date Assessment Result Facility 04-29-2023 Functional status Patient at [facility] Work Phone: Mental Status Date Assessment Result Facility 04-29-2023 Cognitive function Cognitive Sta tus Patient at Baseline [facility] Work Phone: History and physical note 04-30-2023 Note Date & Type Note Facility 04-30-2023 History and physical note Note Date/Time April 29, 2023 10:09pm [facility] [address] [place] [address] WELFARE AIDE History & Physical Signed Patient: Sarah Arce MR#: [id number] : 2000 Acct:[id number] Age/Sex: 23 / F Adm Date: 4 Loc: Room: [address] [place] [address] Type: REG CLI Attending Dr: Nils Sarkar MD Copies to: NO FAMILY PHYSICIAN Nils Sarkar MD-[facility]~ Date of Service: 04/29/2023 LINE UP MACHINE OPERATOR - HPI History of Present Illness Chief [...] negative unless noted below or in HPI [facility] Medical History (Updated 04/29/23 @ 22:08 by [...] 1,000 mls @ 125 mls/hr IV .Q8H [facility] Stop: 04/28/24 16:59 Last Admin: 04/29/23 17:50 Dose: 125 mls/hr Cefazolin Sodium (Ancef) 2 gm in 50 mls @ 100 mls/hr IV Q8H [facility] Last Admin: 04/29/23 17:51 Dose: 100 mls/hr Oxytocin 40 unit/ Lactated (Ringer's) 504 mls @ 150 mls/hr IV .Q3H22M ONE; Protocol Stop: 04/30/23 02:21 Misoprostol (Misoprostol 200 Mcg Tablet) 800 mcg VAGINAL Q4H [facility] Stop: 04/30/23 02:31 LINE UP MACHINE OPERATOR - Exam Physical Exam Vital signs: Temp [...] Routine Psychiatric Exam Psychiatric: Present normal affect LINE UP MACHINE OPERATOR - Results Laboratory Results - Last 48 hrs. 04/29/23 20:27: Blood Type Recheck A Positive 04/29/23 17:45: HCG, Quant 3230.00 04/29/23 17:31: Corrected WBC 13.6 H, Uncorrected WBC Count 13.6 H, RBC 4.93, Hgb 13.3, Hct 39.8, MCV 80.8, MCH 27.0, MCHC 33.5, RDW 13.9, Plt Count 369, MPV 7.0, Neut % (Auto) 77.6, Lymph % (Auto) 17.0, [place] % (Auto) 4.0, Eos % (Auto) 1.1, Baso % (Auto) 0.3, Nucleat RBC Rel Count 0.2, Neut # (Auto) 10.6 H, Lymph #(Auto) 2.3, [place] # (Auto) 0.5, Eos # (Auto) 0.2, Baso # (Auto) 0.0, Blood Type APositive, Antibody Screen Negative Diagnostic Imaging Comments: 2.1 cm uterine complex with vascularization, essentially unchanged from yesterday LINE UP MACHINE OPERATOR - A/P (1) Vaginal bleeding: Plan Failed Cytotec evacuation of uterine tissue Suction D&C D&C Documented By: CHUCK Astorga 04/29/23 22 06 Signed By: <Electronically signed by CHUCK Sarkar> 04/30/23 0702 [facility] Work Phone: History of Present illness Narrative [...] D&C on Thursday documented in this encounter [facility] Evaluation note Note Date & Type Note Facility Evaluation note Diagnosis Missed Bleeding in early Unspecified hemorrhage in early , unspecified as to episode of care Vaginal discharge Leukorrhea, not specified as infective documented in this encounter [facility] Evaluation note Note Date & Type Note Facility Evaluation note No assessment information availa ble [facility] Work Phone: Evaluation note Note Date & Type Note Facility Evaluation note Diagnosis Onset Date Vaginal bleeding acute [facility] Work Phone: Hospital Discharge instructions Note Date & Type Note Facility Hospital Discharge instructions Additional Instructions SPECIAL INSTRUCTIONS Call for heavy bleeding FOLLOW UP Thursday 10 am [facility] Work Phone: Summary Purpose Family History No [...] content) DATE CREATED AUTHOR 10/08/2020 [facility] DATE CREATED AUTHOR AUTHOR'S ORGANIZ ATION 05/31/2023 [facility] DATE CREATED AUTHOR AUTHOR'S ORGANIZ ATION 10/24/2023 [facility] dical Specialists EPIC Reason for Visit (unrecogniz ed section and content) Reason Comments Care Care Teams (unrecognized sec tion and content) Engineering Mathematician Relationship Specialty Start Date End Date Unallocated, [place] Provider [address] [place] [address] PCP - General Family Medicine 04/13/23 Team [...] BE BASED ON THE PRIMARY CLINICAL RECORDS. [employer] [facility]. provides no warranty or guarantee of the accuracy or completeness of information in this document.
== END 2023-11-10 08:26 | disposition home or self-care (01) ==
LOC: NOMS 08:25
PROVIDERS: Visit Provider Obstetrics & Gynecology
DX: O20.9 Hemorrhage in early pregnancy, unspecified (principal); O36.80X0 Pregnancy with inconclusive fetal viability, not applicable or unspecified
CPT/HCPCS: 76817

== ENCOUNTER 2023-11-12 07:41 | Outpatient (OUT) | payer BC, SELFPAY ==
--- OUTSIDE RECORDS SUMMARY | 2023-11-12 07:45 | XMS_ITS | CCD ---
Author Organization [facility] CliniSytn Care Team Providers Care Bee Farmer Name Role Phone AICHHOLZ, ENTRY LEVEL FINANCIAL ANALYST LLUVIA Primary Care Unavailable KOFI CURRIE Consulting Unavailable KOFI CURRIE Admitting Unavailable KOFI CURRIE Attending Unavailable AICHHOLZ, ENTRY LEVEL FINANCIAL ANALYST LLUVIA Primary Care Unavailable QUIQUE, DR KECIA Devi Consulting Unavailable KOFI CURRIE Attending Unavailable KOFI CURRIE Admitting Unavailable KOFI CURRIE Consulting Unavailable KOFI CURRIE Attending Unavailable MISC, DOCTOR Referring Unavailable AICHHOLZ, ENTRY LEVEL FINANCIAL ANALYST LLUVIA Primary Care Unavailable KOFI CURRIE Consulting Unavailable KOFI CURRIE Admitting Unavailable KARASIK, DR STRONG Attending Unavailable AICHHOLZ, ENTRY LEVEL FINANCIAL ANALYST [place]UVIA Primary Care Unavailable KARASIK, DR STRONG Consulting Unavailable KARASIK, DR STRONG Admitting Unavailable KARASIK, DR STRONG Procedure Practitioner Unava ilable KOFI CURRIE Consulting Unavailable KOFI CURRIE Attending Unavailable AICHHOLZ, ENTRY LEVEL FINANCIAL ANALYST [place]UVIA Primary Care Unavailable KOFI CURRIE Admitting Unavailable AICHHOLZ, ENTRY LEVEL FINANCIAL ANALYST LLUVIA Primary Care Unavailable KARASIK, DR STRONG Consulting Unavailable KARASIK, DR STRONG Admitting Unavailable KARASIK, DR STRONG Attending Unavailable KOFI CURRIE Consulting Unavailable KOFI CURRIE Attending Unavailable AICHHOLZ, ENTRY LEVEL FINANCIAL ANALYST [place]UVIA Primary Care Unavailable KOFI CURRIE Admitting Unavailable AICHHOLZ, ENTRY LEVEL FINANCIAL ANALYST [place]UVIA Primary Care Unavailable KOFI CURRIE Consulting Unavailable KOFI CURRIE Admitting Unavailable KOFI CURRIE Attending Unavailable AICHHOLZ, ENTRY LEVEL FINANCIAL ANALYST [place]UVIA Admitting Unavailable AICHHOLZ, ENTRY LEVEL FINANCIAL ANALYST [place]UVIA Attending Unavailable AICHHOLZ, ENTRY LEVEL FINANCIAL ANALYST [place]IA Consulting Unavailable AICHHOLZ, ENTRY LEVEL FINANCIAL ANALYST [place]UVIA Primary Care Unavailable Unavailable Primary Care Provider Unavailabl e Unallocated, Noms Provider Primary Care Provider MD Nils Sarkar Attending Provider [phone] NO FAMILY, PHYSICIAN Primary Care Provider Unava ilable Nils Sarkar Admitting Unavailable Nils Sarkar Attending Unavailable NO FAMILY, PHYSICIAN Primary Care Unavailable Nils Sarkar Admitting Unavailable Nils Sarkar Attending Unavailable NO FAMILY, PHYSICIAN Primary Care Unavailable NILS SARKAR Attending Unavailable NILS SARKAR Attending Unavailable NILS SRAKAR Attending Unavailable NILS SARKAR Attending Unavailable Medications [...] 04-30-2023 Basophils (Bld) [#/Vol] 0.1 10*3/uL 0.0-0.2 [facility] Basophils/100 WBC Auto (Bld) Ordered By: CHUCK Sarkar on 04-30-2023 Basophils/100 WBC (Bld) 0.7 % . [facility] Choriogonadotropin.beta subu nit [Units/volume] in Serum or PlasmaOrdered By: SHANNON Sarkar on 04-30-2023 HCG.beta subunit Qn 2358.00 m[IU]/mL [facility] Comment on above: Approximate Approxim ate hCG Gestational Age Range (mIU/ml) (weeks)0.2-1 5-50 1-2 50-500 2-3 100-5,000 3-4 500-10,000 4-5 1,000-50,000 5-6 10,000-100,000 6-8 15,000-200,000 8-12 10,000-100,000 Complete Blood Count Auto Di ffon 04-30-2023 Basophils (Bld) [#/Vol] 0.1 10*3/uL Normal 0.0-0.2 [facility] Comment on above: Result Comment: PERF ORMED BY: [place] [address] PATHOLOGIST STONE BELT SANDER CHUY PALOMO M.D. Performed By: #### C BC, HCGQNT #### [facility] [address] Basophils/100 WBC (Bld) 0.7 % Normal . [facility] Comment on above: Performed By: #### C BC, HCGQNT #### [facility] [address] [place] [address] [place] Eosinophils (Bld) [#/Vol] 0.1 10*3/uL Normal 0.0-0.45 [facility] Comment on above: Performed By: #### C BC, HCGQNT #### [address] Eosinophils/100 WBC (Bld) 1.3 % Normal . [facility] Comment on above: Performed By: #### C BC, HCGQNT #### [address] Erythrocyte distribution width (RBC) [Ratio] 14.1 % Normal 11.9-15.3 [facility] Comment on above: Performed By: #### C BC, HCGQNT #### [address] Hematocrit (Bld) [Volume fraction] 35.3 % Normal 34.0-46.4 [facility] Comment on above: Performed By: #### C BC, HCGQNT #### [address] Hemoglobin (Bld) [Mass/Vol] 12.2 g/dL Normal 11.8-15.4 [facility] Comment on above: Performed By: #### C BC, HCGQNT #### [place] [address] [place] Lymphocytes (Bld) [#/Vol] 2.4 10*3/uL Normal 1.00-4.8 [facility] Comment on above: Performed By: #### C BC, HCGQNT #### [facility] [address] Lymphocytes/100 WBC (Bld) 28.7 % Normal . [facility] Comment on above: Performed By: #### C BC, HCGQNT #### [facility] [address] MCH (RBC) [Entitic mass] 27.8 pg Normal 24.7-34.3 [facility] Comment on above: Performed By: #### C BC, HCGQNT #### [address] MCV (RBC) [Entitic vol] 80.2 fL Normal 80-100 [facility] Comment on above: Performed By: #### C BC, HCGQNT #### [address] Mean Corpuscular HGB Conc 34.7 g/dL Normal 32.0-35.0 [facility] Comment on above: Performed By: #### C BC, HCGQNT #### [place] [address] [place] Monocytes (Bld) [#/Vol] 0.5 10*3/uL Normal 0.0-0.8 [facility] Comment on above: Performed By: #### C BC, HCGQNT #### [place] [address] [place] Monocytes/100 WBC (Bld) 6.3 % Normal . [facility] Comment on above: Performed By: #### C BC, HCGQNT #### [place] [address] [place] Neutrophils (Bld) [#/Vol] 5.3 10*3/uL Normal 1.8-7.7 [facility] Comment on above: Performed By: #### C BC, HCGQNT #### [place] [address] [place] Neutrophils/100 WBC (Bld) 63.0 % Normal . [facility] Comment on above: Performed By: #### C BC HCGQNT #### [address] NRBC% 0.1 /100{WBC} Normal 0-0.5 [facility] Comment on above: Performed By: #### C BC HCGQNT #### [address] Platelet mean volume (Bld) [Entitic vol] 6.7 fL Normal 6.3-10.7 [facility] Comment on above: Performed By: #### C BC HCGQNT #### [address] Platelets (Bld) [#/Vol] 317 10*3/uL Normal 150-450 [facility] Comment on above: Performed By: #### C BC HCGQNT #### [address] RBC (Bld) [#/Vol] 4.40 10*6/uL Normal 3.60-5.00 [facility] Comment on above: Performed By: #### C BC HCGQNT #### [address] WBC (Bld) [#/Vol] 8.4 10*3/uL Normal 3.8-11.6 [facility] Comment on above: Performed By: #### C BC, HCGQNT #### [place] [address] [place] Eosinophils Auto (Bld) [#/Vo l]Ordered By: CHUCK Sarkar on 04-30-2023 Eosinophils (Bld) [#/Vol] 0.1 10*3/uL 0.0-0.45 [facility] Eosinophils/100 WBC Auto (Bl d)Ordered By: CHUCK Sarkar on 04-30-2023 Eosinophils/100 WBC (Bld) 1.3 % . [facility] Erythrocyte distribution wid th Auto (RBC) [Ratio]Ordered By: CHUCK Sarkar on 04-30-2023 Erythrocyte distribution width (RBC) [Ratio] 14.1 % 11.9-15.3 [facility] HCG,Quantitativeon 4 HCG,Quantitative 2358.00 m[iU]/mL Normal [facility] Comment on above: Result Comment: Appr oximate Approximate hCG Gestational Age Range (mIU/ml) (weeks) 0.2-1 5-50 1-2 50-500 2-3 100-5,000 3-4 500-10,000 4-5 1,000-50,000 5-6 10,000-100,000 6-8 15,000-200,000 8-12 10,000-100,000 PERFORMED BY: [place] [address] PATHOLOGIST [employer]ONE BEL[employer] SANDER CHUY PALOMO M.D. Performed By: #### C BC, HCGQNT #### [facility] [address] [place] [address] Hematocrit Auto (Bld) [Volum e fraction]Ordered By: CHUCK Sarkar on 04-30-2023 Hematocrit (Bld) [Volume fraction] 35.3 % 34.0-46.4 [facility] Hemoglobin [Mass/volume] in BloodOrdered By: CHUCK Sarkar on 04-30-2023 Hemoglobin (Bld) [Mass/Vol] 12.2 g/dL 11.8-15.4 [facility] Leif 04-30-2023 L Specimen: [id number] Received: 04/30/23 Status: RUBINA Sharpe Num: [id number] Spec Type: Surgical Subm Dr: CHUCK Astorga Tissues: A Products of Conception - Spontaneous or Missed (PRODUCTS OF CONCEPT Procedures: HE/3, Gross/Micro L4 Age/ Patient Sex Location Account Attending Physician Sarah Arce 23/F N3 [id number] CHUCK Astorga SPEC NUM: [id number] RECD: 04/30/23 STATUS: RUBINA SHARPE NUM: [id number] MARY: 04/30/23- SUBM DR: CHUCK Astorga ENTERED: 04/30/[address] [facility] [address]: SPEC TYPE: Surgical DEPT: S [...] is tentatively identified. tissue is not identified. Export Traffic Department Manager sections focused on potential villi. Export Traffic Department Manager sections are submitted in three cassettes labeled A1-A3. CPT Codes 75584 Specimen: [id number] Received: 04/30/23 Status: RUBINA Sharpe Num: [id number] Spec Type: Surgical Subm Dr: CHUCK Astorga Tissues: A Products of Conception - Spontaneous or Missed (PRODUCTS OF CONCEPT Procedures: HE/3, Gross/Micro L4 Patient: Sarah Arce [id number] (Continued) Signed (signatur e on file) Tavia Abad MD 05/05/23 2315 Normal [facility] Leukocytes [#/volume] correc bridget for nucleated erythrocytes in Blood by Automated counOrdered By: CHUCK Sarkar on 04-30-2023 WBC corrected for nucl RBC Auto (Bld) [#/Vol] 8.4 10*3/uL 3.8-11.6 [facility] Lymphocytes Auto (Bld) [#/Vo l]Ordered By: CHUCK Sarkar on 04-30-2023 Lymphocytes (Bld) [#/Vol] 2.4 10*3/uL 1.00-4.8 [facility] Lymphocytes/100 WBC Auto (Bl d)Ordered By: CHUCK Sarkar on 04-30-2023 Lymphocytes/100 WBC (Bld) 28.7 % . [facility] MCH Auto (RBC) [Entitic mass ]Ordered By: CHUCK Sarkar on 04-30-2023 MCH (RBC) [Entitic mass] 27.8 pg 24.7-34.3 [facility] MCHC Auto (RBC) [Mass/Vol]Or dered By: CHUCK Sarkar on 04-30-2023 MCHC (RBC) [Mass/Vol] 34.7 g/dL 32.0-35.0 [facility] MCV Auto (RBC) [Entitic vol] Ordered By: CHUCK Sarkar on 04-30-2023 MCV (RBC) [Entitic vol] 80.2 fL 80-100 [facility] Monocytes Auto (Bld) [#/Vol] Ordered By: CHUCK Sarkar on 04-30-2023 Monocytes (Bld) [#/Vol] 0.5 10*3/uL 0.0-0.8 [facility] Monocytes/100 WBC Auto (Bld) Ordered By: CHUCK Sarkar on 04-30-2023 Monocytes/100 WBC (Bld) 6.3 % . [facility] Neutrophils Auto (Bld) [#/Vo l]Ordered By: CHUCK Sarkar on 04-30-2023 Neutrophils (Bld) [#/Vol] 5.3 10*3/uL 1.8-7.7 [facility] Neutrophils/100 WBC Auto (Bl d)Ordered By: CHUCK Sarkar on 04-30-2023 Neutrophils/100 WBC (Bld) 63.0 % . [facility] Nucleated erythrocytes [Pres ence] in Blood by Automated countOrdered By: CHUCK Sarkar on 04-30-2023 Nucleated RBC Auto Ql (Bld) 0.1 /100{WBC} 0-0.5 [facility] Platelet mean volume Auto (B ld) [Entitic vol]Ordered By: CHUCK Sarkar on 04-30-2023 Platelet mean volume (Bld) [Entitic vol] 6.7 fL 6.3-10.7 [facility] Platelets Auto (Bld) [#/Vol] Ordered By: CHUCK Sarkar on 04-30-2023 Platelets (Bld) [#/Vol] 317 10*3/uL 150-450 [facility] RBC Auto (Bld) [#/Vol]Ordere d By: CHUCK Sarkar on 04-30-2023 RBC (Bld) [#/Vol] 4.40 10*6/uL 3.60-5.00 [facility] US transvaginalon 04-30-2023 US transvaginal [facility] [address] Ultrasound Report Signed Patient: Sarah Arce MR#: [id number] : 2000 Acct:[id number] Age/Sex: 23 / F ADM Date: 04/29/23 Loc: Room: [address] [place] [address] Type: REG CLI Attending Dr: Nils Sarkar MD Ordering Provider: CHUCK Astorga Date of Service: 04/30/23 US/US pelvic complete: D and C scheduled ([id number]) US/US transvaginal: PRODUCTS OF CONCEPTION WITH PRIOR [...] Usama Peña M.D.04/30/2023 9:37 AM Dictation Location: [place] [address] Tech: Anca Carpio Transcribed By: GISSEL 04/30/2337 Dictated By: Usama Peña DO 04/30/23 0933 Signed By: 04/30/23 0937 Normal [facility] WBC Auto (Bld) [#/Vol]Ordere d By: CHUCK Sarkar on 04-30-2023 WBC (Bld) [#/Vol] 8.4 10*3/uL 3.8-11.6 [facility] ABO/Rh Retypeon 04-29-2023 ABO/RH Recheck Result Positive Normal [facility] Comment on above: Result Comment: PERF ORMED BY: [facility] [address] [place] [address] PATHOLOGIST STONE BELT SANDER CHUY PALOMO M.D. Complete Blood Count Auto Di ffon 04-29-2023 Basophils (Bld) [#/Vol] 0.0 10*3/uL Normal 0.0-0.2 [facility] Comment on above: Result Comment: PERF ORMED BY: [place] [address] PATHOLOGIST [employer] SANDER CHUY PALOMO M.D. Performed By: #### H CGQNT, CBC #### [facility] [address] [place] [address] Basophils/100 WBC (Bld) 0.3 % Normal . [facility] Comment on above: Performed By: #### H CGQNT, CBC #### [facility] [address] [place] [address] Eosinophils (Bld) [#/Vol] 0.2 10*3/uL Normal 0.0-0.45 [facility] Comment on above: Performed By: #### H CGQNT, CBC #### [address] Eosinophils/100 WBC (Bld) 1.1 % Normal . [facility] Comment on above: Performed By: #### H CGQNT, CBC #### [facility] [address] [place] [address] Erythrocyte distribution width (RBC) [Ratio] 13.9 % Normal 11.9-15.3 [facility] Comment on above: Performed By: #### H CGQNT, CBC #### [address] Hematocrit (Bld) [Volume fraction] 39.8 % Normal 34.0-46.4 [facility] Comment on above: Performed By: #### H CGQNT, CBC #### [facility] [address] [place] [address] [place] Hemoglobin (Bld) [Mass/Vol] 13.3 g/dL Normal 11.8-15.4 [facility] Comment on above: Performed By: #### H CGQNT, CBC #### [facility] [address] [place] [address] [place] Lymphocytes (Bld) [#/Vol] 2.3 10*3/uL Normal 1.00-4.8 [facility] Comment on above: Performed By: #### H CGQNT, CBC #### [facility] [address] Lymphocytes/100 WBC (Bld) 17.0 % Normal . [facility] Comment on above: Performed By: #### H CGQNT, CBC #### [facility] [address] MCH (RBC) [Entitic mass] 27.0 pg Normal 24.7-34.3 [facility] Comment on above: Performed By: #### H CGQNT, CBC #### [address] MCV (RBC) [Entitic vol] 80.8 fL Normal 80-100 [facility] Comment on above: Performed By: #### H CGQNT, CBC #### [address] Mean Corpuscular HGB Conc 33.5 g/dL Normal 32.0-35.0 [facility] Comment on above: Performed By: #### H CGQNT, CBC #### [place] [address] [place] Monocytes (Bld) [#/Vol] 0.5 10*3/uL Normal 0.0-0.8 [facility] Comment on above: Performed By: #### H CGQNT, CBC #### [place] [address] [place] Monocytes/100 WBC (Bld) 4.0 % Normal . [facility] Comment on above: Performed By: #### H CGQNT, CBC #### [facility] [address] [place] [address] [place] Neutrophils (Bld) [#/Vol] 10.6 10*3/uL High 1.8-7.7 [facility] Comment on above: Performed By: #### H CGQNT, CBC #### [place] [address] [place] Neutrophils/100 WBC (Bld) 77.6 % Normal . [facility] Comment on above: Performed By: #### H CGQNT, CBC #### [address] NRBC% 0.2 /100{WBC} Normal 0-0.5 [facility] Comment on above: Performed By: #### H CGQNT, CBC #### [address] Platelet mean volume (Bld) [Entitic vol] 7.0 fL Normal 6.3-10.7 [facility] Comment on above: Performed By: #### H CGQNT, CBC #### [address] Platelets (Bld) [#/Vol] 369 10*3/uL Normal 150-450 [facility] Comment on above: Performed By: #### H CGQNT, CBC #### [address] RBC (Bld) [#/Vol] 4.93 10*6/uL Normal 3.60-5.00 [facility] Comment on above: Performed By: #### H CGQNT, CBC #### [address] WBC (Bld) [#/Vol] 13.6 10*3/uL High 3.8-11.6 [facility] Comment on above: Performed By: #### H CGQNT, CBC #### [address] HCG,Quantitativeon 4 HCG,Quantitative 3230.00 m[iU]/mL Normal [facility] Comment on above: Result Comment: Appr oximate Approximate hCG Gestational Age Range (mIU/ml) (weeks) 0.2-1 5-50 1-2 50-500 2-3 100-5,000 3-4 500-10,000 4-5 1,000-50,000 5-6 10,000-100,000 6-8 15,000-200,000 8-12 10,000-100,000 PERFORMED BY: [address] [place] [address] PATHOLOGIST STONE [employer] SANDER CHUY PALOMO M.D. Performed By: #### H CGQNT, CBC #### [facility] [address] [place] [id number] [place] Type and Screenon 04-29-2023 ABO and Rh group Nom (Bld) Blood group A Rh(D) positive Normal [facility] Leif 04-24-2023 L Specimen: [id number] Received: 04/24/23 Status: RUBINA Renahun Num: [id number] Spec Type: Surgical Subm Dr: CHUCK Astorga Tissues: A Products of Conception - Spontaneous or Missed (POC) Procedures: HE/3, Gross/Micro L4 Age/ Patient Sex Location Account Attending Physician Sarah Arce 23/F [place] [id number] MICHELE AstorgaS SPEC NUM: [id number] RECD: 04/24/23 STATUS: RUBINA SHARPE NUM: [id number] MARY: 04/24/23- SUBM DR: CHUCK Astorga ENTERED: 04/24/[address] [facility] [address]: SPEC TYPE: Surgical DEPT: S ENTERED BY: [id number] RECV BY: [id number] ORDERED: HE/3, Gross/Micro L4 ORDERED: HE/3, Gross/Micro [...] foot length of 0.7 cm from heel-to-toe. Export Traffic Department Manager sections are submitted in 3 cassettes as follows: A1-A2 - Villous tissue A3 - tissue CPT Codes 71600 Specimen: [id number] Received: 04/24/23-1156 Status: RUBINA Sharpe Num: [id number] Spec Type: Surgical Subm Dr: Nils Sarkar MD-NOMS Tissues: A Products of Conception - Spontaneous or Missed (POC) Procedures: HE/3, Michael/Lydia L4 Patient: Sarah Arce [id number] (Continued) Signed (signatur e on file) Tavia Abad MD 04/28/232320 [facility] CBC AUTO DIFFon 10-02-2020 BASO # 0.0 103/ul Normal 0.0-0.1 [facility] Comment on above: Performed By: #### U LYDIA, UAIND #### [facility] [address] [place] [address] Vandana Indira Basophils/100 WBC (Bld) 0.1 % Critically low 0.2-2.0 [facility] Comment on above: Performed By: #### U MICRO, UACSIND #### [facility] [address] [place] [address] Vandana Indira EO # 0.0 103/ul Normal 0.0-0.7 [facility] Comment on above: Performed By: #### U MICRO, UACSIND #### [facility] [address] [place] [address] Vandana Indira Eosinophils/100 WBC (Bld) 0.0 % Critically low 0.9-7.0 [facility] Comment on above: Performed By: #### U MICRO, UACSIND #### [facility] [address] [place] [address] Vandanadave Jacobson Erythrocyte distribution width (RBC) [Ratio] 15.9 % Critically high 11.0-15.0 [facility] Comment on above: Performed By: #### U MICRO, UACSIND #### [facility] [address] [place] [address] Vandana Indira Hematocrit (Bld) [Volume fraction] 33.3 % Critically low 36.0-48.0 [facility] Comment on above: Performed By: #### U MICRO, UACSIND #### [facility] [address] [place] [address] Vandana Indira Hemoglobin (Bld) [Mass/Vol] 11.2 g/dL Critically low 12.0-16.0 [facility] Comment on above: Performed By: #### U MICRO, UACSIND #### [facility] [address] [place] [address] Vandana Indira IG # 0.07 10e3/ul Critically high 0.00-0.03 [facility] Comment on above: Performed By: #### U MICRO, UACSIND #### [facility] [address] [place] [address] Vandana Indira IG % 0.4 % Normal 0.0-0.5 [facility] Comment on above: Performed By: #### U MICRO, UACSIND #### [facility] [address] [place] [id number] Vandana Indira LYMPH # 1.9 103/ul Normal 1.2-3.8 [facility] Comment on above: Performed By: #### U MICRO, UACSIND #### [facility] [address] [place] [id number] Vandana Indira Lymphocytes/100 WBC (Bld) 11.4 % Critically low 20.5-60.0 [facility] Comment on above: Performed By: #### U MICRO, UACSIND #### [facility] [address] [place] [id number] Vandana Indira MANUAL DIFF REQ NO Normal [facility] Comment on above: Performed By: #### U MICRO, UACSIND #### [facility] [address] [place], [place] [id number] Vandana Indira MCH (RBC) [Entitic mass] 27.7 pg Normal 26.7-34.0 [facility] Comment on above: Performed By: #### U MICRO, UACSIND #### [facility] [address] [place] [address] Vandana Indira MCHC (RBC) [Mass/Vol] 33.6 g/dL Normal 29.9-35.2 [facility] Comment on above: Performed By: #### U MICRO, UACSIND #### [facility] [address] [place], [place] [id number] Vandana Indira MCV (RBC) [Entitic vol] 82.4 fL Normal 81.0-99.0 [facility] Comment on above: Performed By: #### U MICRO, UACSIND #### [facility] [address] [place] [id number] Vandana Indira MONO # 1.0 103/ul Critically high 0.3-0.8 [facility] Comment on above: Performed By: #### U MICRO, UACSIND #### [facility] [address] [place] [address] Vandana Indira Monocytes/100 WBC (Bld) 6.3 % Normal 1.7-12.0 [facility] Comment on above: Performed By: #### U MICRO, UACSIND #### [facility] [address] [place] [id number] Vandana Jacobson NEUT # 13.4 103/ul Critically high 1.4-6.5 [facility] Comment on above: Performed By: #### U MICRO, UACSIND #### [facility] [address] [place] [id number] Vandana Jacobson Neutrophils/100 WBC (Bld) 81.8 % Critically high 43.0-75.0 [facility] Comment on above: Performed By: #### U MICRO, UACSIND #### [facility] [address] [place], [place] [id number] Vandana Jacobson Platelet mean volume (Bld) [Entitic vol] 10.3 fL Normal 9.5-13.5 [facility] Comment on above: Performed By: #### U MICRO, UACSIND #### [facility] [address] [place], [place] [id number] Vandana Jacobson PLT 202 103/ul Normal 150-450 [facility] Comment on above: Performed By: #### U MICRO, UACSIND #### [facility] [address] [place], [place] [id number] Vandana Jacobson RBC 4.04 106/ul Critically low 4.20-5.40 [facility] Comment on above: Performed By: #### U MICRO, UACSIND #### [facility] [address] [place], [place] [phone] Vandana Jacobson WBC 16.4 103/ul Critically high 4.0-11.0 [facility] Comment on above: Performed By: #### U MICRO, UACSIND #### [facility] [address] [place], [place] [phone] Vandana Jacobson ASYMPTOMATIC COVID-19 ANTIGE Non 10-01-2020 [...] sooner. Performed By: #### C VDAGA #### [facility] [address] [place] [address] Vandana Jacobson SARS-CoV-2 (COVID-19) RNA RAMA+probe Ql (Unsp spec) Negative Normal NEGATIVE [facility] Comment on above: Result Comment: Nega tive results are presumptive. They do not preclude infection and should not be used as the sole basis for treatment decisions. Additional confirmatory testing by a molecular method should be considered. Performed By: #### C VDAGA #### [facility] [address] [place] [address] Vandana Indira CBC AUTO DIFFon 10-01-2020 BASO # 0.0 103/ul Normal 0.0-0.1 [facility] Comment on above: Performed By: #### D RUGRPD #### [facility] [address] [place] [address] Vandana Indira Basophils/100 WBC (Bld) 0.1 % Critically low 0.2-2.0 [facility] Comment on above: Performed By: #### D RUGRPD #### [facility] [address] [place] [address] Vandana Indira EO # 0.0 103/ul Normal 0.0-0.7 [facility] Comment on above: Performed By: #### D RUGRPD #### [facility] [address] [place], [place] [phone] Vandana Indira Eosinophils/100 WBC (Bld) 0.1 % Critically low 0.9-7.0 [facility] Comment on above: Performed By: #### D RUGRPD #### [facility] [address] [place] [phone] Vandana Indira Erythrocyte distribution width (RBC) [Ratio] 15.8 % Critically high 11.0-15.0 [facility] Comment on above: Performed By: #### D RUGRPD #### [facility] [address] [place], [place] [id number] Vandana Indira Hematocrit (Bld) [Volume fraction] 40.2 % Normal 36.0-48.0 [facility] Comment on above: Performed By: #### D RUGRPD #### [facility] [address] [place], [place] [id number] Vandana Indira Hemoglobin (Bld) [Mass/Vol] 13.4 g/dL Normal 12.0-16.0 [facility] Comment on above: Performed By: #### D RUGRPD #### [facility] [address] [place], [place] [id number] Vandana Indira IG # 0.04 10e3/ul Critically high 0.00-0.03 [facility] Comment on above: Performed By: #### D RUGRPD #### [facility] [address] [place], [place] [id number] Vandana Indira IG % 0.4 % Normal 0.0-0.5 [facility] Comment on above: Performed By: #### D RUGRPD #### [facility] [address] [place], [place] [id number] Vandana Indira LYMPH # 1.5 103/ul Normal 1.2-3.8 [facility] Comment on above: Performed By: #### D RUGRPD #### [facility] [address] [place], [place] [id number] Vandana Indira Lymphocytes/100 WBC (Bld) 14.7 % Critically low 20.5-60.0 [facility] Comment on above: Performed By: #### D RUGRPD #### [facility] [address] [place], [place] [id number] Vandana Indira MANUAL DIFF REQ NO Normal [facility] Comment on above: Performed By: #### D RUGRPD #### [facility] [address], [place] [address] Vandana Jacobson MCH (RBC) [Entitic mass] 27.3 pg Normal 26.7-34.0 [facility] Comment on above: Performed By: #### D RUGRPD #### [facility] [address], [place] [address] Vandana Jacobson MCHC (RBC) [Mass/Vol] 33.3 g/dL Normal 29.9-35.2 [facility] Comment on above: Performed By: #### D RUGRPD #### [facility] [address], [place] [address] Vandanadave Jacobson MCV (RBC) [Entitic vol] 82.0 fL Normal 81.0-99.0 [facility] Comment on above: Performed By: #### D RUGRPD #### [facility] [address] [place], [place] [id number] Vandana Jacobson MONO # 0.5 103/ul Normal 0.3-0.8 [facility] Comment on above: Performed By: #### D RUGRPD #### [facility] [address] [place], [place] [id number] Vandana Jacobson Monocytes/100 WBC (Bld) 5.2 % Normal 1.7-12.0 [facility] Comment on above: Performed By: #### D RUGRPD #### [facility] [address] [place], [place] [id number] Vandana Jacobson NEUT # 8.1 103/ul Critically high 1.4-6.5 [facility] Comment on above: Performed By: #### D RUGRPD #### [facility] [address] [place], [place] [id number] Vandana Indira Neutrophils/100 WBC (Bld) 79.5 % Critically high 43.0-75.0 [facility] Comment on above: Performed By: #### D RUGRPD #### [facility] [address] [place] [id number] Vandanadave Jacobson Platelet mean volume (Bld) [Entitic vol] 10.6 fL Normal 9.5-13.5 [facility] Comment on above: Performed By: #### D RUGRPD #### [facility] [address] [place] [address] Vandana Indira PLT 256 103/ul Normal 150-450 [facility] Comment on above: Performed By: #### D RUGRPD #### [facility] [address] [place] [address] Vandana Indira RBC 4.90 106/ul Normal 4.20-5.40 [facility] Comment on above: Performed By: #### D RUGRPD #### [facility] [address] [place] [address] Vandana Indira WBC 10.2 103/ul Normal 4.0-11.0 [facility] Comment on above: Performed By: #### Ceci RUGRPD #### [facility] [address] [place] [address] Vandana Indira DRUG SCREEN RAPID (URINE)on 10-01-2020 AMP Negative Normal NEGATIVE [facility] Comment on above: Performed By: #### Ceci RUGRPD #### [facility] [address] [place] [address] Vandana Indira BAR Negative Normal NEGATIVE [facility] Comment on above: Performed By: #### Ceci RUGRPD #### [facility] [address] [place] [address] Vandana Indira BUP Negative Normal NEGATIVE [facility] Comment on above: Performed By: #### Ceci RUGRPD #### [facility] [address] [place] [address] Vandana Indira BZO Negative Normal NEGATIVE [facility] Comment on above: Performed By: #### Ceci RUGRPD #### [facility] [address] [place] [address] Vandana Indira ROLANDA Negative Normal NEGATIVE [facility] Comment on above: Performed By: #### D RUGRPD #### [facility] [address] [place] [address] Vandana Indira CUT-OFFS SEE BELOW Normal [facility] Comment on above: Result Comment: AMP [...] ng/mL Performed By: #### D RUGRPD #### [facility] [address] [place] [address] DRUG CUT HEADER DRUG CLASS TEST SYSTEM CUT-OFF CONCENTRATIONS ARE FOLLOWS: Normal [facility] Comment on above: Performed By: #### D RUGRPD #### [facility] [address] [place] [address] Vandana Indira mAMP Negative Normal NEGATIVE [facility] Comment on above: Performed By: #### D RUGRPD #### [facility] [address] [place] [address] Vandana Indira MTD Negative Normal NEGATIVE [facility] Comment on above: Performed By: #### D RUGRPD #### [facility] [address] [place] [address] Vandana Indira OPI Negative Normal NEGATIVE [facility] Comment on above: Performed By: #### D RUGRPD #### [facility] [address] [place] [address] Vandana Indira OXY Negative Normal NEGATIVE [facility] Comment on above: Performed By: #### D RUGRPD #### [facility] [address] [place] [address] Indira PCP Negative Normal NEGATIVE [facility] Comment on above: Performed By: #### D RUGRPD #### [facility] [address] [place] [address] Vandana Indira PPX Negative Normal NEGATIVE [facility] Comment on above: Performed By: #### D RUGRPD #### [facility] [address] [place] [address] Vandana Jacobson TCA Negative Normal NEGATIVE [facility] Comment on above: Performed By: #### D RUGRPD #### [facility] [address] [place] [id number] Vandana Jacobson THC Negative Normal NEGATIVE [facility] Comment on above: Performed By: #### D RUGRPD #### [facility] [address], [place] [address] Vandana Jacobson TYPE AND SCREENon 10-01-2020 TYPE AND SCREEN Negative Normal [facility] Comment on above: Performed By: #### D RUGRPD #### [facility] [address], [place] [address] Vandana Jacobson US PREG GROWTHon 09-12-2020 US [...] EFW: 6 lbs. 13 oz., 58% FL/AC: [id number] FL/BPD: 0.873672 HC/AC: [id number] GESTATIONAL AGE: Age by EDC: 36 weeks 6 days YUE by EDC: 10/04/2020 Age by US: 37 weeks 0 days YUE by US: 10/03/2020 IMPRESSION: Normal interval growth Electronically authenticated by: KECIA LEI Date: 2020-09-12 13:13 Normal [facility] HEMOGLOBINOPATHY FRACTIONATI ON CASCADEon 09-11-2020 HGB A 97.4 % Normal 96.4-98.8 [facility] Comment on above: Performed By: #### U MICRO, UACSIND #### [facility] [address] [place] [address] Vandana Jacobson HGB A2 2.6 % Normal 1.8-3.2 [facility] Comment on above: Performed By: #### U MICRO, UACSIND #### [facility] [address] [place] [address] Vandana Jacobson HGB F 0.0 % Normal 0.0-2.0 [facility] Comment on above: Performed By: #### U MICRO, UACSIND #### [facility] [address] [place] [address] Vandana Jacobson HGB S 0.0 % Normal 0.0 [facility] Comment on above: Performed By: #### U MICRO, UACSIND #### [facility] [address] [place], [place] [id number] Vandana Jacobson Interpretation: Comment Normal [facility] Comment on above: Result Comment: Norm al hemoglobin present; no hemoglobin variant or thalassemia observed. Performed By: #### U MICRO, UACSIND #### [facility] [address] [place] [address] Vandana Jacobson CBC AUTO DIFFon 09-10-2020 BASO # 0.0 103/ul Normal 0.0-0.1 [facility] Comment on above: Performed By: #### C BC #### [facility] [address] [place] [address] Vandana Jacobson Basophils/100 WBC (Bld) 0.1 % Critically low 0.2-2.0 [facility] Comment on above: Performed By: #### C BC #### [facility] [address] [place] [address] Vandana Jacobson EO # 0.0 103/ul Normal 0.0-0.7 [facility] Comment on above: Performed By: #### C BC #### [facility] [address] [place] [address] Vandana Jacobson Eosinophils/100 WBC (Bld) 0.4 % Critically low 0.9-7.0 [facility] Comment on above: Performed By: #### C BC #### [facility] [address] [place] [address] Vandana Lien Erythrocyte distribution width (RBC) [Ratio] 16.0 % Critically high 11.0-15.0 [facility] Comment on above: Performed By: #### C BC #### [facility] [address] [place] [address] Vandana Jacobson Hematocrit (Bld) [Volume fraction] 36.5 % Normal 36.0-48.0 [facility] Comment on above: Performed By: #### C BC #### [facility] [address] [place] [address] Vandana Jacobson Hemoglobin (Bld) [Mass/Vol] 12.2 g/dL Normal 12.0-16.0 [facility] Comment on above: Performed By: #### C BC #### [facility] [address] [place] [address] Vandana Jacobson IG # 0.07 10e3/ul Critically high 0.00-0.03 [facility] Comment on above: Performed By: #### C BC #### [facility] [address] [place] [address] Vandana Jacobson IG % 0.9 % Critically high 0.0-0.5 [facility] Comment on above: Performed By: #### C BC #### [facility] [address] [place] [address] Vandana Jacobson LYMPH # 1.9 103/ul Normal 1.2-3.8 [facility] Comment on above: Performed By: #### C BC #### [facility] [address] [place] [address] Vandana Jacobson Lymphocytes/100 WBC (Bld) 23.7 % Normal 20.5-60.0 [facility] Comment on above: Performed By: #### C BC #### [facility] [address] [place], [place] [id number] Vandana Jacobson MANUAL DIFF REQ NO Normal [facility] Comment on above: Performed By: #### C BC #### [facility] [address] [place], [place] [id number] Vandana Jacobson MCH (RBC) [Entitic mass] 27.4 pg Normal 26.7-34.0 [facility] Comment on above: Performed By: #### C BC #### [facility] [address], [place] [address] Vandanadave Jacobson MCHC (RBC) [Mass/Vol] 33.4 g/dL Normal 29.9-35.2 [facility] Comment on above: Performed By: #### C BC #### [facility] [address], [place] [address] Vandana Indira MCV (RBC) [Entitic vol] 82.0 fL Normal 81.0-99.0 [facility] Comment on above: Performed By: #### C BC #### [facility] [address] [place] [id number] Vandana Indira MONO # 0.7 103/ul Normal 0.3-0.8 [facility] Comment on above: Performed By: #### C BC #### [facility] [address] [place], [place] [id number] Vandana Indira Monocytes/100 WBC (Bld) 8.8 % Normal 1.7-12.0 [facility] Comment on above: Performed By: #### C BC #### [facility] [address] [place], [place] [address] Vandana Indira NEUT # 5.3 103/ul Normal 1.4-6.5 [facility] Comment on above: Performed By: #### C BC #### [facility] [address] [place], [place] [id number] Vandana Indira Neutrophils/100 WBC (Bld) 66.1 % Normal 43.0-75.0 [facility] Comment on above: Performed By: #### C BC #### [facility] [address] [place] [address] Vandana Indira Platelet mean volume (Bld) [Entitic vol] 11.6 fL Normal 9.5-13.5 [facility] Comment on above: Performed By: #### C BC #### [facility] [address] [place] [id number] Vandana Indira PLT 221 103/ul Normal 150-450 [facility] Comment on above: Performed By: #### C BC #### [facility] [address] [place] [address] Vandana Jacobson RBC 4.45 106/ul Normal 4.20-5.40 [facility] Comment on above: Performed By: #### C BC #### [facility] [address] [place] [address] Vandana Jacobson WBC 8.1 103/ul Normal 4.0-11.0 [facility] Comment on above: Performed By: #### C BC #### [facility] [address] [place] [address] Vandana Jacobson VAGINITIS/VAGINOSIS DNA PROB Miller 09-08-2020 Nichole species Negative Normal Negative [facility] Comment on above: Performed By: #### V AGINT #### [facility] [address] [place] [address] Vandana Jacobson Gardnerella vaginalis Negative Normal Negative [facility] Comment on above: Performed By: #### V AGINT #### [facility] [address] [place] [address] Vandana Jacobson Trichomonas vaginalis Negative Normal Negative [facility] Comment on above: Performed By: #### V AGINT #### [facility] [address] [place] [address] Vandana Jacobson CHLAMYDIA/GONOCOCCUS RAMA (SW AB/URINE/PAPon 09-07-2020 Chlamydia trachomatis, RAMA Negative Normal Negative [facility] Comment on above: Performed By: #### D RUGRPD #### [facility] [address] [place] [address] Vandana Jacobson Neisseria gonorrhoeae, RAMA Negative Normal Negative [facility] Comment on above: Performed By: #### D RUGRPD #### [facility] [address] [place], [place] [id number] Vandana Jacobson GROUP B STREP CULTUREon S. agalactiae Ag Ql (Unsp spec) Culture Observations: NEGATIVE FOR GROUP B STREPTOCOCCUS. Normal [facility] Comment on above: Performed By: #### D RUGRPD #### [facility] [address] [place] [address] Vandana Indira CULTURE URINEon 08-31-2020 CULTURE URINE Culture Observations: LIGHT GROWTH OF MIXED GENITAL TEDDY. NO POTENTIAL PATHOGENS SEEN. Normal [facility] Comment on above: Performed By: #### D RUGRPD #### [facility] [address] [place] [address] Vandana Indira UA (CLEAN/CATCH) ROTARY LITHOGRAPHIC PRESS OPERATOR/MICRO I F IND.on 08-31-2020 Bilirubin Ql (U) Negative Normal NEGATIVE [facility] Comment on above: Performed By: #### U MICRO, UACSIND #### [facility] [address] [place] [address] Vandana Indira Clarity (U) SL CLOUDY Abnormal CLEAR [facility] Comment on above: Performed By: #### U MICRO, UACSIND #### [facility] [address] [place] [address] Vandana Indira Color (U) LT. YELLOW Normal YELLOW [facility] Comment on above: Performed By: #### U MICRO, UACSIND #### [facility] [address] [place] [address] Vandana Indira Glucose Ql (U) Negative Normal NEGATIVE [facility] Comment on above: Performed By: #### U MICRO, UACSIND #### [facility] [address] [place] [address] Vandana Indira Hemoglobin Ql (U) Negative Normal NEGATIVE [facility] Comment on above: Performed By: #### U MICRO, UACSIND #### [facility] [address] [place] [address] Vandana Indira Ketones Ql (U) 15 mg/dl Abnormal NEGATIVE [facility] Comment on above: Performed By: #### U MICRO, UACSIND #### [facility] [address] [place] [address] Vandana Indira LEUKOCYTES SMALL Abnormal NEGATIVE [facility] Comment on above: Performed By: #### U MICRO, UACSIND #### [facility] [address] [place] [address] Vandana Indira Nitrite Ql (U) Negative Normal NEGATIVE [facility] Comment on above: Performed By: #### U MICRO, UACSIND #### [facility] [address] [place] [address] Vandanadave Jacobson pH (U) 7.0 [pH] Normal 5-9 [facility] Comment on above: Performed By: #### U MICRO, UACSIND #### [facility] [address] [place] [address] Vandana Jacobson SPEC GRAVITY 1.015 Normal 1.005-<=1.025 [facility] Comment on above: Performed By: #### U MICRO, UACSIND #### [facility] [address] [place] [address] Vandanadave Jacobson UA PROTEIN Negative Normal NEGATIVE/ TRACE [facility] Comment on above: Performed By: #### U MICRO, UACSIND #### [facility] [address] [place] [address] Vandana Jacobson UR MICRO IND INDICATED Normal [facility] Comment on above: Performed By: #### U MICRO, UACSIND #### [facility] [address] [place] [address] Vandana Jacobson Urobilinogen Qn (U) 0.2 {Richard'U}/dL Normal 0.2 - 1. 0 [facility] Comment on above: Performed By: #### U MICRO, UACSIND #### [facility] [address] [place] [address] Vandanadave Jacobson URINE MICROSCOPIC ONLYon BACTERIA SMALL Abnormal NONE SEEN [facility] Comment on above: Performed By: #### U MICRO, UACSIND #### [facility] [address] [place] [address] Vandana Jacobson Bacteria identified Cx Nom (U) INDICATED Normal [facility] Comment on above: Performed By: #### U MICRO, UACSIND #### [facility] [address] [place] [address] Vandana Indira CAST NONE SEEN Normal NONE SEEN [facility] Comment on above: Performed By: #### U MICRO, UACSIND #### [facility] [address] [place] [address] Vandana Indira Crystals LM Nom (Urine sed) NONE SEEN Normal NONE SEEN [facility] Comment on above: Performed By: #### U MICRO, UACSIND #### [facility] [address] [place] [address] Vandana Indira Epithelial cells LM Ql (Urine sed) MODERATE Abnormal NONE SEEN /RARE [facility] Comment on above: Performed By: #### U MICRO, UACSIND #### [facility] [address] [place] [address] Vandana Indira MUCOUS NONE SEEN Normal NONE SEEN [facility] Comment on above: Performed By: #### U MICRO, UACSIND #### [facility] [address] [place] [address] Vandana Indira RBC NONE SEEN Abnormal 0-2 [facility] Comment on above: Performed By: #### U MICRO, UACSIND #### [facility] [address] [place] [address] Vandana Indira WBC NONE SEEN Normal NONE SEEN [facility] Comment on above: Performed By: #### U MICRO, UACSIND #### [facility] [address] [place], [place] [id number] Vandana Indira CULTURE URINEon 08-01-2020 CULTURE URINE Culture Observations: LIGHT GROWTH OF MIXED GENITAL TEDDY. NO POTENTIAL PATHOGENS SEEN. Normal [facility] Comment on above: Performed By: #### U RCX #### [facility] [address] [place] [address] Vandana Indira UA RANDOM W/MICROSCOPICon BACTERIA TRACE Abnormal NONE SEEN [facility] Comment on above: Performed By: #### U AMIC #### [facility] [address] [place] [address] Vandana Indira Bilirubin Ql (U) Negative Normal NEGATIVE [facility] Comment on above: Performed By: #### U AMIC #### [facility] [address] [place] [address] Vandana Indira CAST NONE SEEN Normal NONE SEEN [facility] Comment on above: Performed By: #### U AMIC #### [facility] [address] [place], [place] [address] Vandana Indira Clarity (U) CLEAR Normal CLEAR [facility] Comment on above: Performed By: #### U AMIC #### [facility] [address] [id number] Vandana Indira Color (U) LT. YELLOW Normal YELLOW [facility] Comment on above: Performed By: #### U AMIC #### [facility] [address] [id number] Vandana Indira Crystals LM Nom (Urine sed) NONE SEEN Normal NONE SEEN [facility] Comment on above: Performed By: #### U AMIC #### [facility] [address] [place] [address] Vandana Indira Epithelial cells LM Ql (Urine sed) FEW Abnormal NONE SEEN /RARE [facility] Comment on above: Performed By: #### U AMIC #### [facility] [address] [place] [address] Vandana Indira Glucose Ql (U) Negative Normal NEGATIVE [facility] Comment on above: Performed By: #### U AMIC #### [facility] [address] [place] [address] Vandana Indira Hemoglobin Ql (U) Negative Normal NEGATIVE [facility] Comment on above: Performed By: #### U AMIC #### [facility] [address] [place] [address] Vandana Indira Ketones Ql (U) Negative Normal NEGATIVE [facility] Comment on above: Performed By: #### U AMIC #### [facility] [address] [place] [address] Vandana Indira LEUKOCYTES Negative Normal NEGATIVE [facility] Comment on above: Performed By: #### U AMIC #### [facility] [address] [place], [place] [id number] Vandana Indira MUCOUS NONE SEEN Normal NONE SEEN [facility] Comment on above: Performed By: #### U AMIC #### [facility] [address] [place], [place] [id number] Vandana Indira Nitrite Ql (U) Negative Normal NEGATIVE [facility] Comment on above: Performed By: #### U AMIC #### [facility] [address] [place], [place] [id number] Vandanadave Jacobson pH (U) 7.5 [pH] Normal 5-9 [facility] Comment on above: Performed By: #### U AMIC #### [facility] [address] [place] [address] Vandanadave Jacobson RBC 0-2 Normal 0-2 [facility] Comment on above: Performed By: #### U AMIC #### [facility] [address] [place] [address] Vandana Jacobson SPEC GRAVITY 1.015 Normal 1.005-<=1.025 [facility] Comment on above: Performed By: #### U AMIC #### [facility] [address] [place] [address] Vandanadave Jacobson UA PROTEIN Negative Normal NEGATIVE/ TRACE [facility] Comment on above: Performed By: #### U AMIC #### [facility] [address] [place] [address] Vandanadave Jacobson Urobilinogen Qn (U) 0.2 {Richard'U}/dL Normal 0.2 - 1. 0 [facility] Comment on above: Performed By: #### U AMIC #### [facility] [address] [place] [address] Vandana Indira WBC 0-2 Abnormal NONE SEEN [facility] Comment on above: Performed By: #### U AMIC #### [facility] [address] [place] [address] Vandanadave Jacobson CBC AUTO DIFFon 12-17-2019 BASO # 0.0 103/ul Normal 0.0-0.1 [facility] Comment on above: Performed By: #### C BC #### [facility] [address] [place] [address] Vandana Jacobson Basophils/100 WBC (Bld) 0.1 % Critically low 0.2-2.0 [facility] Comment on above: Performed By: #### C BC #### [facility] [address] [place] [address] Vandana Indira EO # 0.1 103/ul Normal 0.0-0.7 [facility] Comment on above: Performed By: #### C BC #### [facility] [address] [place] [address] Vandana Indira Eosinophils/100 WBC (Bld) 0.9 % Normal 0.9-7.0 [facility] Comment on above: Performed By: #### C BC #### [facility] [address] [place] [address] Vandana Indira Erythrocyte distribution width (RBC) [Ratio] 14.3 % Normal 11.0-15.0 [facility] Comment on above: Performed By: #### C BC #### [facility] [address] [place] [address] Vandana Indira Hematocrit (Bld) [Volume fraction] 40.5 % Normal 36.0-48.0 [facility] Comment on above: Performed By: #### C BC #### [facility] [address] [place] [address] Vandana Indira Hemoglobin (Bld) [Mass/Vol] 13.2 g/dL Normal 12.0-16.0 [facility] Comment on above: Performed By: #### C BC #### [facility] [address] [place] [address] Vandana Indira IG # 0.01 10e3/ul Normal 0.00-0.03 [facility] Comment on above: Performed By: #### C BC #### [facility] [address] [place] [address] Vandana Indira IG % 0.1 % Normal 0.0-0.5 [facility] Comment on above: Performed By: #### C BC #### [facility] [address] [place] [address] Vandana Indira LYMPH # 2.0 103/ul Normal 1.2-3.8 [facility] Comment on above: Performed By: #### C BC #### [facility] [address] [place] [address] Vandana Indira Lymphocytes/100 WBC (Bld) 27.9 % Normal 20.5-60.0 [facility] Comment on above: Performed By: #### C BC #### [facility] [address] [id number] Vandana Indira MANUAL DIFF REQ NO Normal [facility] Comment on above: Performed By: #### C BC #### [facility] [address] [id number] Vandana Indira MCH (RBC) [Entitic mass] 25.7 pg Critically low 26.7-34.0 [facility] Comment on above: Performed By: #### C BC #### [facility] [address] [place] [address] Vandana Indira MCHC (RBC) [Mass/Vol] 32.6 g/dL Normal 29.9-35.2 [facility] Comment on above: Performed By: #### C BC #### [facility] [address] [place] [address] Vandana Indira MCV (RBC) [Entitic vol] 78.9 fL Critically low 81.0-99.0 [facility] Comment on above: Performed By: #### C BC #### [facility] [address] [place], [place] [id number] Vandana Indira MONO # 0.5 103/ul Normal 0.3-0.8 [facility] Comment on above: Performed By: #### C BC #### [facility] [address] [place], [place] [id number] Vandana Indira Monocytes/100 WBC (Bld) 7.0 % Normal 1.7-12.0 [facility] Comment on above: Performed By: #### C BC #### [facility] [address] [place] [address] Vandana Indira NEUT # 4.5 103/ul Normal 1.4-6.5 [facility] Comment on above: Performed By: #### C BC #### [facility] [address] [place], [place] [id number] Vandana Indira Neutrophils/100 WBC (Bld) 64.0 % Normal 43.0-75.0 [facility] Comment on above: Performed By: #### C BC #### [facility] [address] [place], [place] [id number] Vandana Jacobson Platelet mean volume (Bld) [Entitic vol] 8.9 fL Critically low 9.5-13.5 [facility] Comment on above: Performed By: #### C BC #### [facility] [address] [place], [place] [id number] Vandanadave Jacobson PLT 345 103/ul Normal 150-450 [facility] Comment on above: Performed By: #### C BC #### [facility] [address] [place] [address] Vandana Jacobson RBC 5.13 106/ul Normal 4.20-5.40 [facility] Comment on above: Performed By: #### C BC #### [facility] [address] [place] [address] Vandana Jacobson WBC 7.1 103/ul Normal 4.0-11.0 [facility] Comment on above: Performed By: #### C BC #### [facility] [address] [place] [address] Vandana Jacobson FERRITINon 12-17-2019 Ferritin [Mass/Vol] 27.0 ng/mL Normal 6.2-137.0 [facility] Comment on above: Performed By: #### D JUDI #### [facility] [address] [place] [address] Vandana Jacobson IRONon 12-17-2019 Iron [Mass/Vol] 35.0 ug/dL Critically low 37.0-170.0 [facility] Comment on above: Performed By: #### D JUDI #### [facility] [address] [place], [place] [id number] Vandana Jacobson PROF 14(COMP METB)on 020 Albumin [Mass/Vol] 3.7 g/dL Normal 3.5-5.0 [facility] Comment on above: Performed By: #### C MP #### [facility] [address] [place], [place] [id number] Vandana Jacobson Albumin/Globulin [Mass ratio] 0.9 {ratio} Normal [facility] Comment on above: Performed By: #### C MP #### [facility] [address], [place] [address] Vandana Indira ALP [Catalytic activity/Vol] 82 U/L Normal 38-126 [facility] Comment on above: Performed By: #### C MP #### [facility] [address] [id number] Vandana Indira ALT [Catalytic activity/Vol] 21 U/L Normal 9-52 [facility] Comment on above: Performed By: #### C MP #### [facility] [address] [phone] Vandana Indira Anion gap [Moles/Vol] 12.5 mmol/L Normal Th [facility] Comment on above: Performed By: #### C MP #### [facility] [address] [place] [address] Vandana Indira AST [Catalytic activity/Vol] 15 U/L Normal 14-36 [facility] Comment on above: Performed By: #### C MP #### [facility] [address] [place] [address] Vandana Indira Bilirubin [Mass/Vol] 0.3 mg/dL Normal 0.2-1.3 [facility] Comment on above: Performed By: #### C MP #### [facility] [address] [place], [place] [id number] Vandana Indira Calcium [Mass/Vol] 9.5 mg/dL Normal 8.4-10.2 [facility] [place] Comment on above: Performed By: #### C MP #### [facility] [address] [place] [address] Vandana Indira Chloride [Moles/Vol] 104 mmol/L Normal 98-107 [facility] Comment on above: Performed By: #### C MP #### [facility] [address] [place], [place] [id number] Vandana Indira CO2 [Moles/Vol] 28.4 mmol/L Normal 22.0-30.0 [facility] Comment on above: Performed By: #### C MP #### [facility] [address] [place], [place] [id number] Vandana Indira Creatinine [Mass/Vol] 0.69 mg/dL Normal 0.52-1.04 [facility] Comment on above: Performed By: #### C MP #### [facility] [address] [place], [place] [address] Vandana Indira EGFR-AF SAMOAN >60 Normal >=60 [facility] Comment on above: Performed By: #### C MP #### [facility] [address] [id number] Vandana Indira EGFR-NON AF SAMOAN >60 Normal >=60 [facility] Comment on above: Performed By: #### C MP #### [facility] [address] [phone] Vandana Indira Globulin (S) [Mass/Vol] 4.1 g/dL Normal [facility] Comment on above: Performed By: #### C MP #### [facility] [address] [place] [address] Vandana Indira Glucose [Mass/Vol] 94 mg/dL Normal 74-106 [facility] Comment on above: Performed By: #### C MP #### [facility] [address] [place], [place] [id number] Vandana Indira Potassium [Moles/Vol] 3.9 mmol/L Normal 3.4-5.0 [facility] Comment on above: Performed By: #### C MP #### [facility] [address] [place], [place] [id number] Vandana Indira Protein [Mass/Vol] 7.8 g/dL Normal 6.1-8.2 [facility] Comment on above: Performed By: #### C MP #### [facility] [address] [place], [place] [address] Vandana Indira Sodium [Moles/Vol] 141 mmol/L Normal 137-145 [facility] Comment on above: Performed By: #### C MP #### [facility] [address] [place], [place] [address] Vandana Indira Urea nitrogen [Mass/Vol] 16.0 mg/dL Normal 7.0-17.0 [facility] Comment on above: Performed By: #### C MP #### [facility] [address] [address] Vandanadave Jacobson Urea nitrogen/Creatinine [Mass ratio] 23.2 mg/mg Normal [facility] Comment on above: Performed By: #### C MP #### [facility] [address] [address] Vandanadave Jacobson PROTIMEon 12-17-2019 INR Coag (PPP) [Relative time] 0.97 {INR} Normal [facility] Comment on above: Performed By: #### D RUGRPD #### [facility] [address] [place], [place] [id number] Vandana Indira INR GUIDELINES SEE BELOW Normal [facility] Comment on above: Result Comment: ABHIJIT RED INR: 2.0 - 3.0 CONDITIONS NOT LISTED BELOW 2.5 - 3.5 FOR PROSTHETIC HEART VALVE REPLACEMENT 2.5 - 3.5 RECURRENT THROMBOSIS Performed By: #### D RUGBELA #### [facility] [address] [address] Vandana Indira PT Coag (PPP) [Time] 10.3 s Normal 9.0-11.6 [facility] Comment on above: Performed By: #### D RUGRPD #### [facility] [address] [place] [address] Vandana Indira PT NORMAL PLEASE NOTE: NORMAL RANGE CHANGE 11-24-2013 DUE TO REAGENT LOT CHANGE [facility] Comment on above: Performed By: #### D RUGRPD #### [facility] [address] [address] Vandanadave Jacobson PTTon 12-17-2019 aPTT Coag (Bld) [Time] 30.7 s Normal 22.3-36.2 [facility] Comment on above: Performed By: #### D RUGRPD #### [facility] [address] [place] [address] Vandana Indira PTT NORMAL PLEASE NOTE: NORMAL RANGE CHANGE 01-31-2015 DUE TO REAGENT LOT CHANGE Normal [facility] Comment on above: Performed By: #### D RUGSHANNAND #### [facility] [address], [place] [address] Vandana Jacobson Vital Signs Date Time Vital Sign Value Performing Clinician Facility 04-30-2023 10:23-0500 Diastolic blood pressure 84 mm[Hg] PHYSICIAN NO [facility] 04-30-2023 10:23-0500 Heart rate 67 /min PHYSICIAN NO [facility] 04-30-2023 10:23-0500 Respiratory rate 18 /min PHYSICIAN NO [facility] 04-30-2023 10:23-0500 SaO2% (BldA) [Mass fraction] 99 % PHYSICIAN NO [facility] 04-30-2023 10:23-0500 Systolic blood pressure 130 mm[Hg] PHYSICIAN NO [facility] 04-30-2023 08:53-0500 Body temperature 98.3 [degF] PHYSICIAN NO [facility] 04-30-2023 08:12-0500 Inhaled oxygen flow rate 8 L/min PHYSICIAN NO [facility] 04-30-2023 07:44-0500 Body height 152.4 cm PHYSICIAN NO [facility] 04-30-2023 07:44-0500 Body mass index (BMI) [Ratio] 28.7 kg/m2 PHYSICIAN NO [facility] 04-30-2023 07:44-0500 Body weight 66.67 kg PHYSICIAN NO [facility] 04-24-2023 11:55-0500 Diastolic blood pressure 86 mm[Hg] PHYSICIAN NO [facility] 04-24-2023 11:55-0500 Heart rate 65 /min PHYSICIAN NO [facility] 04-24-2023 11:55-0500 Respiratory rate 16 /min PHYSICIAN NO [facility] 04-24-2023 11:55-0500 SaO2% (BldA) [Mass fraction] 100 % PHYSICIAN NO [facility] 04-24-2023 11:55-0500 Systolic blood pressure 119 mm[Hg] PHYSICIAN NO [facility] 04-24-2023 11:07-0500 Body temperature 98 [degF] PHYSICIAN NO [facility] 04-24-2023 10:42-0500 Inhaled oxygen flow rate 8 L/min PHYSICIAN NO [facility] 04-24-2023 08:52-0500 Body height 152.4 cm PHYSICIAN NO [facility] 04-24-2023 08:52-0500 Body mass index (BMI) [Ratio] 29 kg/m2 PHYSICIAN NO [facility] 04-24-2023 08:52-0500 Body weight 67.58 kg PHYSICIAN NO [facility] 04-20-2023 08:56-0500 Body mass index (BMI) [Ratio] 30.09 kg/m2 Nils Sarkar MD Work Phone: [facility] 04-20-2023 08:56-0500 Body weight 67.59 kg Nils Sarkar MD Work Phone: [facility] 04-20-2023 08:56-0500 Diastolic blood pressure 66 mm[Hg] Nils Sarkar MD Work Phone: [facility] 04-20-2023 08:56-0500 Systolic blood pressure 110 mm[Hg] Nils Sarkar MD Work Phone: [facility] Healthcare Encounters Encounter Date Encounter Type Care Provider Facility Start: 05-11-2023 End: 05-11-2023 ambulatory NILS SARKAR Not Available Start: 04-29-2023 End: 04-30-2023 ambulatory Nils Sarkar Facility:[facility] Start: 04-29-2023 End: 04-30-2023 Patient encounter procedure PHYSICIAN NO [facility] Start: 04-29-2023 End: 04-30-2023 ambulatory PHYSICIAN NO [facility] Work Phone: Start: 04-24-2023 End: 04-24-2023 ambulatory Nils Sarkar Facility:[facility] Start: 04-24-2023 End: 04-24-2023 Admission to same day surgery center PHYSICIAN NO [facility] Start: 04-24-2023 End: 04-24-2023 ambulatory PHYSICIAN NO [facility] Work Phone: Start: 04-20-2023 End: 04-20-2023 Office outpatient visit 10 minutes Nils Sarkar MD Work Phone: [facility] Comment on above: Missed ; [...] BURK Facility:[facility]1 Start: 09-12-2020 End: 09-13-2020 ambulatory ENTRY [employer]EVEL FINANCIAL ANALYST LLUVIA TATYANA Facility:[facility]1 Start: 09-10-2020 End: 09-11-2020 ambulatory KOFI CURRIE Facility:[facility] Start: 09-06-2020 End: 09-06-2020 ambulatory ENTRY LEVEL FINANCIAL ANALYST LLUVIA AICCAROLINAZ Facility:[facility] Start: 08-31-2020 End: 08-31-2020 ambulatory ENTRY LEVEL FINANCIAL ANALYST LLUVIA AICHHOLZ Facility:[facility] Start: 08-01-2020 End: 08-01-2020 ambulatory ENTRY LEVEL FINANCIAL ANALYST LLUVIA AICHHOLZ Facility:[facility] Start: 12-17-2019 End: 12-18-2019 ambulatory ENTRY LEVEL FINANCIAL ANALYST LLUVIA AICHHOLZ Facility:[facility]1 Procedures Date Procedure Procedure Detail Performing Clinician Start: 04-30-2023 Dilation and curetta ge of uterus PHYSICIAN NO FAMILY Start: 04-30-2023 Pelvic echography PHYSI RADHA NO FAMILY Start: 04-30-2023 Transvaginal echography PHYSICIAN NO FAMILY Start: 04-29-2023 Antibody screen Nils Sarkar Comment on above: Result Comment: PERF ORMED BY: [facility] [address] [place] [address] PATHOLOGIST STONE BELT SANDER CHUY PALOMO M.D. Start: 04-24-2023 Dilation and curetta ge of uterus PHYSICIAN NO FAMILY Start: 10-01-2020 Delivery of Products of Conception, External Approach TERENCE JOE Start: 10-01-2020 Repair Vulva, Supply Chain Coordinator al Approach TERENCE JOE Plan of Treatment Date Care Activity Detail Author Start: 04-30-2023 [facility] Start: 04-24-2023 [facility] Start: 04-24-2023 End: 04-24-2023 [facility] Start: 04-20-2023 End: 04-20-2024 hCG, quantitative [facility] Work Phone: Comment on above: Ordered: 04/20/2023 Expected: 04/20/2023 (Approximate), Expires: 04/20/2024 Start: 04-13-2023 End: 04-13-2023 Patient encounter procedure 04/13/2023 9:45 AM EST Office Visit [facility] [address] [place] [address] Nils Sarkar MD [address] [place] [address] [facility] Start: 04-13-2023 End: 04-13-2023 Professional / ancillary services management 04/13/2023 9:30 AM EST Ancillary Procedure [facility] [address] [place] [id number] [facility] Basophils [#/volume] in Blood by Automated count [facility] Basophils/100 leukoc ytes in Blood by Automated count [facility] Eosinophils/100 leukocytes in Blood by Automated count [facility] Erythrocyte distribu tion width [Ratio] by Automated count [facility] Erythrocytes [#/volu me] in Blood [facility] Hematocrit [Volume Fraction] of Blood [facility] Hemoglobin [Mass/vol ume] in Blood [facility] Leukocytes [#/volume ] corrected for nucleated erythrocytes in Blood by Automated coun [facility] Leukocytes [#/volume ] in Blood [facility] Lymphocytes [#/volum e] in Blood by Automated count [facility] Lymphocytes/100 leukocytes in Blood by Automated count [facility] MCH [Entitic mass] b y Automated count [facility] MCHC [Mass/volume] b y Automated count [facility] MCV [Entitic volume] by Automated count [facility] Monocytes [#/volume] in Blood by Automated count [facility] Monocytes/100 leukoc ytes in Blood by Automated count [facility] MYCOPLASMA/UREAPLASM A PANEL MYCOPLASMA/UREAPLASMA PANEL Lab Routine Vaginal discharge Ordered: 04/20/2023 [facility] Comment on above: Ordered: 04/20/2023 Neutrophils [#/volum e] in Blood by Automated count [facility] Neutrophils/100 leukocytes in Blood by Automated count [facility] Nucleated erythrocyt es [Presence] in Blood by Automated count [facility] Patient Education [facility] Work Phone: Patient referral [facility] Work Phone: Platelet mean volume [Entitic volume] in Blood by Automated [facility] Platelets [#/volume] in Blood [facility] Payers Date Payer Category Payer Self-pay 2023 Unknown BCBS BCBS xxxxxx [id number] 2023-Present [phone] [address] [place] [address] [id number] 2023 Unknown [id number] 1998 Unknown [id number] 1998 Unknown [id number] [id number] 1998 Unknown [id number] [id number] 1998 Unknown [id number] [id number] 1998 Unknown [id number] 2.16.840.1.243124.3.579.2.593 1998 Unknown [id number] 2.16.840.1.820626.3.579.2.593 1998 Unknown [id number] 2.16.840.1.155706.3.579.2.593 1998 Unknown [id number] 2.16.840.1.634660.3.579.2.593 1998 Unknown [id number] 2.16.840.1.239222.3.579.2.593 1998 Unknown [id number] 2.16.840.1.621795.3.579.2.1259 1998 Unknown [id number] 2.16.840.1.807413.3.579.2.1259 1998 Unknown [id number] 2.16.840.1.594744.3.579.2.1259 1998 Unknown [id number] 2.16.840.1.660683.3.579.2.1259 1998 Unknown [id number] 2.16.840.1.026934.3.579.2.1259 1998 Unknown [id number] 2.16.840.1.783759.3.579.2.1259 1959 Unknown [id number] 1959 Unknown [id number] Unknown [id number] 2.16.840.1.159904.3.579.2.531 Unknown [id number] [id number] Social History Date Type Detail Facility Start: 08-13-2022 End: 04-30-[address] [facility] Never smoked tobacco [facility] Start: 08-13-2022 Tobacco use and exposure Smokeless tobacco non-user [facility] Start: 04-07-2023 End: 04-20-2023 Alcohol intake Ex-drinker (finding) [facility] Start: 08-13-2022 End: 04-13-2023 History of Social function [facility] Start: 08-13-2022 End: 04-13-2023 Tobacco use panel [facility] Start: 08-13-2022 Alcohol Comment none with [facility] Start: 2000 Sex Assigned At Not on file [facility] The thought of gilberto salinas myself has occurred to me Never [facility] Start: 1998 Sex Assigned At Female F [facility] Goals Date Patient Goal Desired Activity /State Functional Status Date Assessment Result Facility 04-29-2023 Functional status Patient at Baseline [facility] Work Phone: Mental Status Date Assessment Result Facility 04-29-2023 Cognitive function Cognitive Sta tus Patient at Baseline [facility] Work Phone: History and physical note 04-30-2023 Note Date & Type Note Facility 04-30-2023 History and physical note Note Date/Time April 29, 2023 10:09pm [facility] [address] [place] [address] ORDER TRACER History & Physical Signed Patient: Sarah Arce MR#: [id number] : 2000 Acct:[id number] Age/Sex: 23 / F Adm Date: 4 Loc: Room: [address] [place] [address] Type: REG CLI Attending Dr: Nils Sarkar MD Copies to: NO FAMILY PHYSICIAN Nils Sarkar MD-[facility]~ Date of Service: 04/29/2023 HOSPITAL MORTICIAN - HPI History of Present Illness Chief [...] negative unless noted below or in HPI [facility] Medical History (Updated 04/29/23 @ 22:08 by [...] 1,000 mls @ 125 mls/hr IV .Q8H [facility] Stop: 04/28/24 16:59 Last Admin: 04/29/23 17:50 Dose: 125 mls/hr Cefazolin Sodium (Ancef) 2 gm in 50 mls @ 100 mls/hr IV Q8H [facility] Last Admin: 04/29/23 17:51 Dose: 100 mls/hr Oxytocin 40 unit/ Lactated (Ringer's) 504 mls @ 150 mls/hr IV .Q3H22M ONE; Protocol Stop: 04/30/23 02:21 Misoprostol (Misoprostol 200 Mcg Tablet) 800 mcg VAGINAL Q4H [facility] Stop: 04/30/23 02:31 HOSPITAL MORTICIAN - Exam Physical Exam Vital signs: Temp [...] Routine Psychiatric Exam Psychiatric: Present normal affect HOSPITAL MORTICIAN - Results Laboratory Results - Last 48 hrs. 04/29/23 20:27: Blood Type Recheck A Positive 04/29/23 17:45: HCG, Quant 3230.00 04/29/23 17:31: Corrected WBC 13.6 H, Uncorrected WBC Count 13.6 H, RBC 4.93, Hgb 13.3, Hct 39.8, MCV 80.8, MCH 27.0, MCHC 33.5, RDW 13.9, Plt Count 369, MPV 7.0, Neut % (Auto) 77.6, Lymph % (Auto) 17.0, [place] % (Auto) 4.0, Eos % (Auto) 1.1, Baso % (Auto) 0.3, Nucleat RBC Rel Count 0.2, Neut # (Auto) 10.6 H, Lymph #(Auto) 2.3, [place] # (Auto) 0.5, Eos # (Auto) 0.2, Baso # (Auto) 0.0, Blood Type APositive, Antibody Screen Negative Diagnostic Imaging Comments: 2.1 cm uterine complex with vascularization, essentially unchanged from yesterday HOSPITAL MORTICIAN - A/P (1) Vaginal bleeding: Plan Failed Cytotec evacuation of uterine tissue Suction D&C D&C Documented By: CHUCK Astorga 04/29/23 22 06 Signed By: <Electronically signed by CHUCK Sarkar> 04/30/23 0702 [facility] Work Phone: History of Present illness [...] D&C on Thursday documented in this encounter [facility] Evaluation note Note Date & Type Note Facility Evaluation note Diagnosis Missed Bleeding in early Unspecified hemorrhage in early , unspecified as to episode of care Vaginal discharge Leukorrhea, not specified as infective documented in this encounter [facility] Evaluation note Note Date & Type Note Facility Evaluation note No assessment information availa ble [facility] Work Phone: Evaluation note Note Date & Type Note Facility Evaluation note Diagnosis Onset Date Vaginal bleeding acute [facility] Work Phone: Hospital Discharge instructions Note Date & Type Note Facility Hospital Discharge instructions Additional Instructions SPECIAL INSTRUCTIONS Call for heavy bleeding FOLLOW UP Thursday 10 am [facility] Work Phone: Summary Purpose Family History [...] content) DATE CREATED AUTHOR 10/08/2020 [facility] DATE CREATED AUTHOR AUTHOR'S ORGANIZ ATION 05/31/2023 [facility] DATE CREATED AUTHOR AUTHOR'S ORGANIZ ATION 10/24/2023 [facility] EPIC Reason for Visit (unrecogniz ed section and content) Reason Comments Care Care Teams (unrecognized sec tion and content) Bee Farmer Relationship Specialty Start Date End Date Unallocated, [place] Provider [address] [place] [address] PCP - General Family Medicine 04/13/23 Team [...] BE BASED ON THE PRIMARY CLINICAL RECORDS. [facility]. provides no warranty or guarantee of the accuracy or completeness of information in this document.
[2023-11-12 08:51] LABS: Basophils Percent Auto 0.2 % (0.2-2.0); Eosinophils Absolute Auto 0.2 10^3/uL (0.0-0.7); Eosinophils Percent Auto 1.3 % (0.9-7.0); Hematocrit 37.4 % (36.0-48.0); Hemoglobin 12.6 g/dL (12.0-16.0); Immature Granulocytes Abs Auto 0.02 10^3/uL (0.00-0.03); Immature Granulocytes Pct Auto 0.2 % (0.0-0.5); Lymphocytes Absolute Auto 1.4 10^3/uL (1.2-3.8); Lymphocytes Percent Auto 12.1 % (20.5-60.0); Mean Corpuscular HGB Conc 33.7 g/dL (29.9-35.2); Mean Corpuscular Volume 80.1 fL (81.0-99.0); Mean Platelet Volume 9.1 fL (9.5-13.5); Monocytes Absolute Auto 0.7 10^3/uL (0.3-0.8); Monocytes Percent Auto 6.4 % (1.7-12.0); Neutrophils Absolute Auto 9.2 10^3/uL (1.4-6.5); Neutrophils Percent Auto 79.8 % (43.0-75.0); Platelet Count 284 10^3/uL (150-450); Red Blood Count 4.67 10^6/uL (4.20-5.40); Red Cell Distribution Width 13.3 % (11.0-15.0); White Blood Count 11.5 10^3/uL (4.0-11.0)
[2023-11-12 09:13] LABS: Internal Control Within Normal Limits; SARS-CoV-2 Ag NEGATIVE (NEGATIVE)
[2023-11-12 09:49] LABS: HCG Quantitative 185468 mIU/mL
--- NOTE | 2023-11-12 09:57 | PM.PRESUREVA ---
History of Present Illness History of Present Illness Chief complaint: Molar Narrative: Patient presents for preadmission testing. The patient states she was evaluated for visit after having a positive test at home. She had 2 ultrasounds and it has been determined that she has a molar . She states she had a molar in the past with a D&C. The patient reports she has mild abdominal cramping but no other complaints at this time. Review of Systems ROS Narrative REVIEW OF SYSTEMS: Negative except as stated in HPI, ten or more systems reviewed. Constitutional: No fever, chills, weakness ENT: No sore throat or epistaxis Cardiovascular: No edema, chest pain, palpitations, or activity intolerance Respiratory: No shortness of breath, cough, or wheezing Musculoskeletal: No joint pain or swelling Gastrointestinal: No abdominal pain, constipation, diarrhea, or vomiting Genitourinary: No dysuria or hematuria Neurological: No numbness, tingling, weakness, or headache Psychiatric: No mood changes PFSH PFSH Medical History (Updated 11/12/23 @ 08:37 by Alexandria Chavez NP) Upper respiratory infection (11/10/23) ?J06.9 - Acute upper respiratory infection, unspecified (ICD-10) Anemia ?D64.9 - Anemia, unspecified (ICD-10) Migraine ?G43.909 - Migraine, unspecified, not intractable, without status migrainosus (ICD-10) Molar ?O02.0 - Blighted ovum and nonhydatidiform mole (ICD-10) Surgical History (Updated 11/12/23 @ 08:25 by Alexandria Chavez NP) History of dilation and curettage ?Z98.890 - Other specified postprocedural states (ICD-10) Family History (Updated 11/12/23 @ 08:25 by Alexandria Chavez NP) Other Cancer Family history of diabetes mellitus Family history of hypertension Social History (Updated 11/12/23 @ 08:22 by Alexandria Chavez NP) Within the past year, how often did you have a drink containing alcohol: never Score interpretation: A score less than 3 is consistent with normal alcohol consumption. Smoking status: Never smoker Non-prescribed substance use: denies use Highest level of school completed/degree received: high school graduate Meds Home Medications and Allergies Allergies Allergy/AdvReac Type Severity Reaction Status Date / Time No Known Drug Allergies Allergy Verified 11/12/23 08:22 Exam Narrative Exam Narrative: Constitutional: Awake, alert, comfortable, well-appearing, nontoxic, interactive, vital signs as charted Head: Normocephalic, atraumatic Neck: Supple, normal appearance, normal range of motion, no meningeal signs, no lymphadenopathy Respiratory: No respiratory distress, breath sounds clear Cardiovascular: Regular rate and rhythm, strong and regular heart tones Abdomen: Nontender, normal bowel sounds, soft, no CVA tenderness Musculoskeletal: Normal gait, no swelling or edema Skin: No rashes or induration, no lesions, only visible skin inspected Neuro: No neurological deficits, normal sensation Psychiatric: Oriented ?3, normal affect Assessment and Plan Assessment and Plan (1) Molar : Plan D&C with suction scheduled with Dr. Carter November 13, 2023.
== END 2023-11-12 07:42 | disposition home or self-care (01) ==
LOC: PST 07:42
PROVIDERS: Visit Provider Obstetrics & Gynecology
DX: Z01.810 Encounter for preprocedural cardiovascular examination (principal); Z01.818 Encounter for other preprocedural examination; O02.0 Blighted ovum and nonhydatidiform mole; Z20.822 Contact with and (suspected) exposure to COVID-19
CPT/HCPCS: 84702; 85025; 87811; G0463

== ENCOUNTER 2023-11-13 08:20 | Day surgery (SDC) | payer BC, SELFPAY ==
[2023-11-12 08:36] VITALS: BP 114/78; PULSE 72; TEMP 36.5; O2SAT 100; BMI 31.2
[2023-11-13] VITALS (7 sets, daily range): BP systolic 94–117; BP diastolic 64–76; PULSE 62–97; TEMP 36.4–36.9; O2SAT 93–100; BMI 31.2
--- OUTSIDE RECORDS SUMMARY | 2023-11-13 08:25 | XMS_ITS | CCD ---
Author Organization [facility] CliniSyla Care Team Providers Care Principal Embedded Software Engineer Name Role Phone AICHHOLZ, DAIRY FROZEN MANAGER [place] Primary Care Unavailable KOFI CURRIE Consulting Unavailable KOFI CURRIE Admitting Unavailable KOFI CURRIE Attending Unavailable AICHHOLZ, DAIRY FROZEN MANAGER [place] Primary Care Unavailable QUIQUE, DR KECIA Devi Consulting Unavailable KOFI CURRIE Attending Unavailable KOFI CURRIE Admitting Unavailable KOFI CURRIE Consulting Unavailable KOFI CURRIE Attending Unavailable MISC, DOCTOR Referring Unavailable AICHHOLZ, DAIRY FROZEN MANAGER [place] Primary Care Unavailable KOFI CURRIE Consulting Unavailable KOFI CURRIE Admitting Unavailable KARASIK, DR STRONG Attending Unavailable AICHHOLZ, DAIRY FROZEN MANAGER [place] Primary Care Unavailable KARASIK, DR STRONG Consulting Unavailable KARASIK, DR STRONG Admitting Unavailable KARASIK, DR STRONG Procedure Practitioner Unava ilable KOFI CURRIE Consulting Unavailable KOFI CURRIE Attending Unavailable AICHHOLZ, DAIRY FROZEN MANAGER [place] Primary Care Unavailable KOFI CURRIE Admitting Unavailable AICHHOLZ, DAIRY FROZEN MANAGER [place] Primary Care Unavailable KARASIK, DR STRONG Consulting Unavailable KARASIK, DR STRONG Admitting Unavailable KARASIK, DR STRONG Attending Unavailable KOFI CURRIE Consulting Unavailable KOFI CURRIE Attending Unavailable AICHHOLZ, DAIRY FROZEN MANAGER [place] Primary Care Unavailable KOFI CURRIE Admitting Unavailable AICHHOLZ, DAIRY FROZEN MANAGER [place] Primary Care Unavailable KOFI CURRIE Consulting Unavailable KOFI CURRIE Admitting Unavailable KOFI CURRIE Attending Unavailable AICHHOLZ, DAIRY FROZEN MANAGER [place] Admitting Unavailable AICHHOLZ, DAIRY FROZEN MANAGER [place] Attending Unavailable AICHHOLZ, DAIRY FROZEN MANAGER [place] Consulting Unavailable AICHHOLZ, DAIRY FROZEN MANAGER [place] Primary Care Unavailable Unavailable Primary [...] 04-30-2023 Basophils (Bld) [#/Vol] 0.1 10*3/uL 0.0-0.2 [facility] Basophils/100 WBC Auto (Bld) Ordered By: CHUCK Sarkar on 04-30-2023 Basophils/100 WBC (Bld) 0.7 % . [facility] Choriogonadotropin.beta subu nit [Units/volume] in Serum or PlasmaOrdered By: SHANNON Sarkar on 04-30-2023 HCG.beta subunit Qn 2358.00 m[IU]/mL [facility] Comment on above: Approximate Approxim ate hCG Gestational Age Range (mIU/ml) (weeks)0.2-1 5-50 1-2 50-500 2-3 100-5,000 3-4 500-10,000 4-5 1,000-50,000 5-6 10,000-100,000 6-8 15,000-200,000 8-12 10,000-100,000 Complete Blood Count Auto Di ffon 04-30-2023 Basophils (Bld) [#/Vol] 0.1 10*3/uL Normal 0.0-0.2 [facility] Comment on above: Result Comment: PERF ORMED BY: [place] [address] PATHOLOGIST SUPPLY CHAIN SPECIALIST CHUY PALOMO M.D. Performed By: #### C BC, HCGQNT #### [facility] [address] Basophils/100 WBC (Bld) 0.7 % Normal . [facility] Comment on above: Performed By: #### C BC, HCGQNT #### [facility] [address] [place] [address] [place] Eosinophils (Bld) [#/Vol] 0.1 10*3/uL Normal 0.0-0.45 [facility] Comment on above: Performed By: #### C BC, HCGQNT #### [address] Eosinophils/100 WBC (Bld) 1.3 % Normal . [facility] Comment on above: Performed By: #### C BC, HCGQNT #### [address] Erythrocyte distribution width (RBC) [Ratio] 14.1 % Normal 11.9-15.3 [facility] Comment on above: Performed By: #### C BC, HCGQNT #### [address] Hematocrit (Bld) [Volume fraction] 35.3 % Normal 34.0-46.4 [facility] Comment on above: Performed By: #### C BC, HCGQNT #### [address] Hemoglobin (Bld) [Mass/Vol] 12.2 g/dL Normal 11.8-15.4 [facility] Comment on above: Performed By: #### C BC, HCGQNT #### [place] [address] [place] Lymphocytes (Bld) [#/Vol] 2.4 10*3/uL Normal 1.00-4.8 [facility] Comment on above: Performed By: #### C BC, HCGQNT #### [facility] [address] Lymphocytes/100 WBC (Bld) 28.7 % Normal . [facility] Comment on above: Performed By: #### C BC, HCGQNT #### [facility] [address] MCH (RBC) [Entitic mass] 27.8 pg Normal 24.7-34.3 [facility] Comment on above: Performed By: #### C BC, HCGQNT #### [address] MCV (RBC) [Entitic vol] 80.2 fL Normal 80-100 [facility] Comment on above: Performed By: #### C BC, HCGQNT #### [address] Mean Corpuscular HGB Conc 34.7 g/dL Normal 32.0-35.0 [facility] Comment on above: Performed By: #### C BC, HCGQNT #### [place] [address] [place] Monocytes (Bld) [#/Vol] 0.5 10*3/uL Normal 0.0-0.8 [facility] Comment on above: Performed By: #### C BC, HCGQNT #### [place] [address] [place] Monocytes/100 WBC (Bld) 6.3 % Normal . [facility] Comment on above: Performed By: #### C BC, HCGQNT #### [place] [address] [place] Neutrophils (Bld) [#/Vol] 5.3 10*3/uL Normal 1.8-7.7 [facility] Comment on above: Performed By: #### C BC, HCGQNT #### [place] [address] [place] Neutrophils/100 WBC (Bld) 63.0 % Normal . [facility] Comment on above: Performed By: #### C BC HCGQNT #### [address] NRBC% 0.1 /100{WBC} Normal 0-0.5 [facility] Comment on above: Performed By: #### C BC HCGQNT #### [address] Platelet mean volume (Bld) [Entitic vol] 6.7 fL Normal 6.3-10.7 [facility] Comment on above: Performed By: #### C BC HCGQNT #### [address] Platelets (Bld) [#/Vol] 317 10*3/uL Normal 150-450 [facility] Comment on above: Performed By: #### C BC HCGQNT #### [address] RBC (Bld) [#/Vol] 4.40 10*6/uL Normal 3.60-5.00 [facility] Comment on above: Performed By: #### C BC HCGQNT #### [address] WBC (Bld) [#/Vol] 8.4 10*3/uL Normal 3.8-11.6 [facility] Comment on above: Performed By: #### C BC, HCGQNT #### [place] [address] [place] Eosinophils Auto (Bld) [#/Vo l]Ordered By: CHUCK Sarkar on 04-30-2023 Eosinophils (Bld) [#/Vol] 0.1 10*3/uL 0.0-0.45 [facility] Eosinophils/100 WBC Auto (Bl d)Ordered By: CHUCK Sarkar on 04-30-2023 Eosinophils/100 WBC (Bld) 1.3 % . [facility] Erythrocyte distribution wid th Auto (RBC) [Ratio]Ordered By: CHUCK Sarkar on 04-30-2023 Erythrocyte distribution width (RBC) [Ratio] 14.1 % 11.9-15.3 [facility] HCG,Quantitativeon 4 HCG,Quantitative 2358.00 m[iU]/mL Normal [facility] Comment on above: Result Comment: Appr oximate Approximate hCG Gestational Age Range (mIU/ml) (weeks) 0.2-1 5-50 1-2 50-500 2-3 100-5,000 3-4 500-10,000 4-5 1,000-50,000 5-6 10,000-100,000 6-8 15,000-200,000 8-12 10,000-100,000 PERFORMED BY: [place] [address] PATHOLOGIST SUPPLY CHAIN SPECIALIST CHUY PALOMO M.D. Performed By: #### C BC, HCGQNT #### [facility] [address] [place] [address] Hematocrit Auto (Bld) [Volum e fraction]Ordered By: CHUCK Sarkar on 04-30-2023 Hematocrit (Bld) [Volume fraction] 35.3 % 34.0-46.4 [facility] Hemoglobin [Mass/volume] in BloodOrdered By: CHUCK Sarkar on 04-30-2023 Hemoglobin (Bld) [Mass/Vol] 12.2 g/dL 11.8-15.4 [facility] Leif 04-30-2023 L Specimen: [id number] Received: 04/30/23 Status: RUBINA Sharpe Num: [id number] Spec Type: Surgical Subm Dr: CHUCK Astorga Tissues: A Products of Conception - Spontaneous or Missed (PRODUCTS OF CONCEPT Procedures: HE/3, Gross/Micro L4 Age/ Patient Sex Location Account Attending Physician Sarah Arce 23/F N3 [id number] CHUCK Astorga SPEC NUM: [id number] RECD: 04/30/23 STATUS: RUBINA SHARPE NUM: [id number] MARY: 04/30/23- SUBM DR: CHUCK Astorga ENTERED: 04/30/[address] [facility] [address]: SPEC TYPE: Surgical DEPT: S [...] is tentatively identified. tissue is not identified. Children'S Counselor sections focused on potential villi. Children'S Counselor sections are submitted in three cassettes labeled A1-A3. CPT Codes 55829 Specimen: [id number] Received: 04/30/23 Status: RUBINA Sharpe Num: [id number] Spec Type: Surgical Subm Dr: CHUCK Astorga Tissues: A Products of Conception - Spontaneous or Missed (PRODUCTS OF CONCEPT Procedures: HE/3, Gross/Micro L4 Patient: Sarah Arce [id number] (Continued) Signed (signatur e on file) Tavia Abad MD 05/05/23 2315 Normal [facility] Leukocytes [#/volume] correc bridget for nucleated erythrocytes in Blood by Automated counOrdered By: CHUCK Sarkar on 04-30-2023 WBC corrected for nucl RBC Auto (Bld) [#/Vol] 8.4 10*3/uL 3.8-11.6 [facility] Lymphocytes Auto (Bld) [#/Vo l]Ordered By: CHUCK Sarkar on 04-30-2023 Lymphocytes (Bld) [#/Vol] 2.4 10*3/uL 1.00-4.8 [facility] Lymphocytes/100 WBC Auto (Bl d)Ordered By: CHUCK Sarkar on 04-30-2023 Lymphocytes/100 WBC (Bld) 28.7 % . [facility] MCH Auto (RBC) [Entitic mass ]Ordered By: CHUCK Sarkar on 04-30-2023 MCH (RBC) [Entitic mass] 27.8 pg 24.7-34.3 [facility] MCHC Auto (RBC) [Mass/Vol]Or dered By: CHUCK Sarkar on 04-30-2023 MCHC (RBC) [Mass/Vol] 34.7 g/dL 32.0-35.0 [facility] MCV Auto (RBC) [Entitic vol] Ordered By: CHUCK Sarkar on 04-30-2023 MCV (RBC) [Entitic vol] 80.2 fL 80-100 [facility] Monocytes Auto (Bld) [#/Vol] Ordered By: CHUCK Sarkar on 04-30-2023 Monocytes (Bld) [#/Vol] 0.5 10*3/uL 0.0-0.8 [facility] Monocytes/100 WBC Auto (Bld) Ordered By: CHUCK Sarkar on 04-30-2023 Monocytes/100 WBC (Bld) 6.3 % . [facility] Neutrophils Auto (Bld) [#/Vo l]Ordered By: CHUCK Sarkar on 04-30-2023 Neutrophils (Bld) [#/Vol] 5.3 10*3/uL 1.8-7.7 [facility] Neutrophils/100 WBC Auto (Bl d)Ordered By: CHUCK Sarkar on 04-30-2023 Neutrophils/100 WBC (Bld) 63.0 % . [facility] Nucleated erythrocytes [Pres ence] in Blood by Automated countOrdered By: CHUCK Sarkar on 04-30-2023 Nucleated RBC Auto Ql (Bld) 0.1 /100{WBC} 0-0.5 [facility] Platelet mean volume Auto (B ld) [Entitic vol]Ordered By: CHUCK Sarkar on 04-30-2023 Platelet mean volume (Bld) [Entitic vol] 6.7 fL 6.3-10.7 [facility] Platelets Auto (Bld) [#/Vol] Ordered By: CHUCK Sarkar on 04-30-2023 Platelets (Bld) [#/Vol] 317 10*3/uL 150-450 [facility] RBC Auto (Bld) [#/Vol]Ordere d By: CHUCK Sarkar on 04-30-2023 RBC (Bld) [#/Vol] 4.40 10*6/uL 3.60-5.00 [facility] US transvaginalon 04-30-2023 US transvaginal [facility] [place] [address] Ultrasound Report Signed Patient: Sarah Arce MR#: [id number] : 2000 Acct:[id number] Age/Sex: 23 / F ADM Date: 04/29/23 Loc: Room: [address] [place] [address] Type: REG CLI Attending Dr: Nils Sarkar MD Ordering Provider: CHUCK Astorga Date of Service: 04/30/23 US/US pelvic complete: D and C scheduled ([id number]) US/US transvaginal: PRODUCTS OF CONCEPTION WITH PRIOR [...] Usama Peña M.D.04/30/2023 9:37 AM Dictation Location: [place] [address] Tech: Anca Carpio Transcribed By: GISSEL 04/30/2337 Dictated By: Usama Peña DO 04/30/23 0933 Signed By: 04/30/23 0937 Normal [facility] WBC Auto (Bld) [#/Vol]Ordere d By: CHUCK Sarkar on 04-30-2023 WBC (Bld) [#/Vol] 8.4 10*3/uL 3.8-11.6 [facility] ABO/Rh Retypeon 04-29-2023 ABO/RH Recheck Result Positive Normal [facility] Comment on above: Result Comment: PERF ORMED BY: [facility] [address] [place] [address] PATHOLOGIST SUPPLY CHAIN SPECIALIST CHUY PALOMO M.D. Complete Blood Count Auto Di ffon 04-29-2023 Basophils (Bld) [#/Vol] 0.0 10*3/uL Normal 0.0-0.2 [facility] Comment on above: Result Comment: PERF ORMED BY: [place] [address] PATHOLOGIST SUPPLY CHAIN SPECIALIST CHUY PALOMO M.D. Performed By: #### H CGQNT, CBC #### [facility] [address] [place] [address] Basophils/100 WBC (Bld) 0.3 % Normal . [facility] Comment on above: Performed By: #### H CGQNT, CBC #### [facility] [address] [place] [address] Eosinophils (Bld) [#/Vol] 0.2 10*3/uL Normal 0.0-0.45 [facility] Comment on above: Performed By: #### H CGQNT, CBC #### [address] Eosinophils/100 WBC (Bld) 1.1 % Normal . [facility] Comment on above: Performed By: #### H CGQNT, CBC #### [facility] [address] [place] [address] Erythrocyte distribution width (RBC) [Ratio] 13.9 % Normal 11.9-15.3 [facility] Comment on above: Performed By: #### H CGQNT, CBC #### [address] Hematocrit (Bld) [Volume fraction] 39.8 % Normal 34.0-46.4 [facility] Comment on above: Performed By: #### H CGQNT, CBC #### [facility] [address] [place] [address] [place] Hemoglobin (Bld) [Mass/Vol] 13.3 g/dL Normal 11.8-15.4 [facility] Comment on above: Performed By: #### H CGQNT, CBC #### [facility] [address] [place] [address] [place] Lymphocytes (Bld) [#/Vol] 2.3 10*3/uL Normal 1.00-4.8 [facility] Comment on above: Performed By: #### H CGQNT, CBC #### [facility] [address] Lymphocytes/100 WBC (Bld) 17.0 % Normal . [facility] Comment on above: Performed By: #### H CGQNT, CBC #### [facility] [address] MCH (RBC) [Entitic mass] 27.0 pg Normal 24.7-34.3 [facility] Comment on above: Performed By: #### H CGQNT, CBC #### [address] MCV (RBC) [Entitic vol] 80.8 fL Normal 80-100 [facility] Comment on above: Performed By: #### H CGQNT, CBC #### [address] Mean Corpuscular HGB Conc 33.5 g/dL Normal 32.0-35.0 [facility] Comment on above: Performed By: #### H CGQNT, CBC #### [place] [address] [place] Monocytes (Bld) [#/Vol] 0.5 10*3/uL Normal 0.0-0.8 [facility] Comment on above: Performed By: #### H CGQNT, CBC #### [place] [address] [place] Monocytes/100 WBC (Bld) 4.0 % Normal . [facility] Comment on above: Performed By: #### H CGQNT, CBC #### [facility] [address] [place] [address] [place] Neutrophils (Bld) [#/Vol] 10.6 10*3/uL High 1.8-7.7 [facility] Comment on above: Performed By: #### H CGQNT, CBC #### [place] [address] [place] Neutrophils/100 WBC (Bld) 77.6 % Normal . [facility] Comment on above: Performed By: #### H CGQNT, CBC #### [address] NRBC% 0.2 /100{WBC} Normal 0-0.5 [facility] Comment on above: Performed By: #### H CGQNT, CBC #### [address] Platelet mean volume (Bld) [Entitic vol] 7.0 fL Normal 6.3-10.7 [facility] Comment on above: Performed By: #### H CGQNT, CBC #### [address] Platelets (Bld) [#/Vol] 369 10*3/uL Normal 150-450 [facility] Comment on above: Performed By: #### H CGQNT, CBC #### [address] RBC (Bld) [#/Vol] 4.93 10*6/uL Normal 3.60-5.00 [facility] Comment on above: Performed By: #### H CGQNT, CBC #### [address] WBC (Bld) [#/Vol] 13.6 10*3/uL High 3.8-11.6 [facility] Comment on above: Performed By: #### H CGQNT, CBC #### [address] HCG,Quantitativeon 4 HCG,Quantitative 3230.00 m[iU]/mL Normal [facility] Comment on above: Result Comment: Appr oximate Approximate hCG Gestational Age Range (mIU/ml) (weeks) 0.2-1 5-50 1-2 50-500 2-3 100-5,000 3-4 500-10,000 4-5 1,000-50,000 5-6 10,000-100,000 6-8 15,000-200,000 8-12 10,000-100,000 PERFORMED BY: [address] [place] [address] PATHOLOGIST SUPPLY CHAIN SPECIALIST CHUY PALOMO M.D. Performed By: #### H CGQNT, CBC #### [facility] [address] [place] [id number] [place] Type and Screenon 04-29-2023 ABO and Rh group Nom (Bld) Blood group A Rh(D) positive Normal [facility] Leif 04-24-2023 L Specimen: [id number] Received: 04/24/23 Status: RUBINA Renahun Num: [id number] Spec Type: Surgical Subm Dr: CHUCK Astorga Tissues: A Products of Conception - Spontaneous or Missed (POC) Procedures: HE/3, Gross/Micro L4 Age/ Patient Sex Location Account Attending Physician Sarah Arce 23/F [place] [id number] MICHELE AstorgaS SPEC NUM: [id number] RECD: 04/24/23 STATUS: RUBINA SHARPE NUM: [id number] MARY: 04/24/23- SUBM DR: CHUCK Astorga ENTERED: 04/24/[address] [facility] [address]: SPEC TYPE: Surgical DEPT: S ENTERED BY: [id number] RECV BY: [id number] ORDERED: HE/3, Gross/Micro L4 ORDERED: HE/3, Gross/Micro [...] foot length of 0.7 cm from heel-to-toe. Children'S Counselor sections are submitted in 3 cassettes as follows: A1-A2 - Villous tissue A3 - tissue CPT Codes 45089 Specimen: [id number] Received: 04/24/23-1156 Status: RUBINA Sharpe Num: [id number] Spec Type: Surgical Subm Dr: Nils Sarkar MD-NOMS Tissues: A Products of Conception - Spontaneous or Missed (POC) Procedures: HE/3, Michael/Lydia L4 Patient: Sarah Arce [id number] (Continued) Signed (signatur e on file) Tavia Abad MD 04/28/232320 [facility] CBC AUTO DIFFon 10-02-2020 BASO # 0.0 103/ul Normal 0.0-0.1 [facility] Comment on above: Performed By: #### U LYDIA, UAIND #### [facility] [address] [place] [address] Vandana Indira Basophils/100 WBC (Bld) 0.1 % Critically low 0.2-2.0 [facility] Comment on above: Performed By: #### U MICRO, UACSIND #### [facility] [address] [place] [address] Vandana Indira EO # 0.0 103/ul Normal 0.0-0.7 [facility] Comment on above: Performed By: #### U MICRO, UACSIND #### [facility] [address] [place] [address] Vandana Indira Eosinophils/100 WBC (Bld) 0.0 % Critically low 0.9-7.0 [facility] Comment on above: Performed By: #### U MICRO, UACSIND #### [facility] [address] [place] [address] Vandanadave Jacobson Erythrocyte distribution width (RBC) [Ratio] 15.9 % Critically high 11.0-15.0 [facility] Comment on above: Performed By: #### U MICRO, UACSIND #### [facility] [address] [place] [address] Vandana Indira Hematocrit (Bld) [Volume fraction] 33.3 % Critically low 36.0-48.0 [facility] Comment on above: Performed By: #### U MICRO, UACSIND #### [facility] [address] [place] [address] Vandana Indira Hemoglobin (Bld) [Mass/Vol] 11.2 g/dL Critically low 12.0-16.0 [facility] Comment on above: Performed By: #### U MICRO, UACSIND #### [facility] [address] [place] [address] Vandana Indira IG # 0.07 10e3/ul Critically high 0.00-0.03 [facility] Comment on above: Performed By: #### U MICRO, UACSIND #### [facility] [address] [place] [address] Vandana Indira IG % 0.4 % Normal 0.0-0.5 [facility] Comment on above: Performed By: #### U MICRO, UACSIND #### [facility] [address] [place] [id number] Vandana Indira LYMPH # 1.9 103/ul Normal 1.2-3.8 [facility] Comment on above: Performed By: #### U MICRO, UACSIND #### [facility] [address] [place] [id number] Vandana Indira Lymphocytes/100 WBC (Bld) 11.4 % Critically low 20.5-60.0 [facility] Comment on above: Performed By: #### U MICRO, UACSIND #### [facility] [address] [place] [id number] Vandana Indira MANUAL DIFF REQ NO Normal [facility] Comment on above: Performed By: #### U MICRO, UACSIND #### [facility] [address] [place], [place] [id number] Vandana Indira MCH (RBC) [Entitic mass] 27.7 pg Normal 26.7-34.0 [facility] Comment on above: Performed By: #### U MICRO, UACSIND #### [facility] [address] [place] [address] Vandana Indira MCHC (RBC) [Mass/Vol] 33.6 g/dL Normal 29.9-35.2 [facility] Comment on above: Performed By: #### U MICRO, UACSIND #### [facility] [address] [place], [place] [address] Vandana Indira MCV (RBC) [Entitic vol] 82.4 fL Normal 81.0-99.0 [facility] Comment on above: Performed By: #### U MICRO, UACSIND #### [facility] [address] [place] [id number] Vandana Indira MONO # 1.0 103/ul Critically high 0.3-0.8 [facility] Comment on above: Performed By: #### U MICRO, UACSIND #### [facility] [address] [place] [address] Vandana Indira Monocytes/100 WBC (Bld) 6.3 % Normal 1.7-12.0 [facility] Comment on above: Performed By: #### U MICRO, UACSIND #### [facility] [address] [place] [id number] Vandana Jacobson NEUT # 13.4 103/ul Critically high 1.4-6.5 [facility] Comment on above: Performed By: #### U MICRO, UACSIND #### [facility] [address] [place] [id number] Vandana Jacobson Neutrophils/100 WBC (Bld) 81.8 % Critically high 43.0-75.0 [facility] Comment on above: Performed By: #### U MICRO, UACSIND #### [facility] [address] [place], [place] [phone] Vandana Jacobson Platelet mean volume (Bld) [Entitic vol] 10.3 fL Normal 9.5-13.5 [facility] Comment on above: Performed By: #### U MICRO, UACSIND #### [facility] [address] [place], [place] [address] Vandana Jacobson PLT 202 103/ul Normal 150-450 [facility] Comment on above: Performed By: #### U MICRO, UACSIND #### [facility] [address] [place], [place] [address] Vandana Jacobson RBC 4.04 106/ul Critically low 4.20-5.40 [facility] Comment on above: Performed By: #### U MICRO, UACSIND #### [facility] [address] [place], [place] [address] Vandana Jacobson WBC 16.4 103/ul Critically high 4.0-11.0 [facility] Comment on above: Performed By: #### U MICRO, UACSIND #### [facility] [address] [place], [place] [address] Vandana Jacobson ASYMPTOMATIC COVID-19 ANTIGE Non 10-01-2020 EUA Statement SEE BELOW Normal [facility] Comment on above: Result Comment: This test [...] sooner. Performed By: #### C VDAGA #### [facility] [address] [place] [address] Vandana Jacobson SARS-CoV-2 (COVID-19) RNA RAMA+probe Ql (Unsp spec) Negative Normal NEGATIVE [facility] Comment on above: Result Comment: Nega tive results are presumptive. They do not preclude infection and should not be used as the sole basis for treatment decisions. Additional confirmatory testing by a molecular method should be considered. Performed By: #### C VDAGA #### [facility] [address] [place] [address] Vandana Indira CBC AUTO DIFFon 10-01-2020 BASO # 0.0 103/ul Normal 0.0-0.1 [facility] Comment on above: Performed By: #### D RUGRPD #### [facility] [address] [place] [address] Vandana Indira Basophils/100 WBC (Bld) 0.1 % Critically low 0.2-2.0 [facility] Comment on above: Performed By: #### D RUGRPD #### [facility] [address] [place] [address] Vandana Indira EO # 0.0 103/ul Normal 0.0-0.7 [facility] Comment on above: Performed By: #### D RUGRPD #### [facility] [address] [place], [place] [address] Vandana Indira Eosinophils/100 WBC (Bld) 0.1 % Critically low 0.9-7.0 [facility] Comment on above: Performed By: #### D RUGRPD #### [facility] [address] [place] [phone] Vandana Indira Erythrocyte distribution width (RBC) [Ratio] 15.8 % Critically high 11.0-15.0 [facility] [facility] Comment on above: Performed By: #### D RUGRPD #### [facility] [address] [place], [place] [id number] Vandana Indira Hematocrit (Bld) [Volume fraction] 40.2 % Normal 36.0-48.0 [facility] Comment on above: Performed By: #### D RUGRPD #### [facility] [address] [place], [place] [address] Vandana Indira Hemoglobin (Bld) [Mass/Vol] 13.4 g/dL Normal 12.0-16.0 [facility] Comment on above: Performed By: #### D RUGRPD #### [facility] [address] [place], [place] [address] Vandana Indira IG # 0.04 10e3/ul Critically high 0.00-0.03 [facility] Comment on above: Performed By: #### D RUGRPD #### [facility] [address] [place], [place] [address] Vandana Indira IG % 0.4 % Normal 0.0-0.5 [facility] Comment on above: Performed By: #### D RUGRPD #### [facility] [address] [place], [place] [address] Vandana Indira LYMPH # 1.5 103/ul Normal 1.2-3.8 [facility] Comment on above: Performed By: #### D RUGRPD #### [facility] [address] [place], [place] [address] Vandana Indira Lymphocytes/100 WBC (Bld) 14.7 % Critically low 20.5-60.0 [facility] Comment on above: Performed By: #### D RUGRPD #### [facility] [address] [place], [place] [id number] Vandana Indira MANUAL DIFF REQ NO Normal [facility] Comment on above: Performed By: #### D RUGRPD #### [facility] [address], [place] [address] Vandana Jacobson MCH (RBC) [Entitic mass] 27.3 pg Normal 26.7-34.0 [facility] Comment on above: Performed By: #### D RUGRPD #### [facility] [address] [place], [place] [address] Vandana Jacobson MCHC (RBC) [Mass/Vol] 33.3 g/dL Normal 29.9-35.2 [facility] Comment on above: Performed By: #### D RUGRPD #### [facility] [address] [place], [place] [address] Vandanadave Jacobson MCV (RBC) [Entitic vol] 82.0 fL Normal 81.0-99.0 [facility] Comment on above: Performed By: #### D RUGRPD #### [facility] [address] [place], [place] [address] Vandana Jacobson MONO # 0.5 103/ul Normal 0.3-0.8 [facility] Comment on above: Performed By: #### D RUGRPD #### [facility] [address] [place], [place] [address] Vandana Jacobson Monocytes/100 WBC (Bld) 5.2 % Normal 1.7-12.0 [facility] Comment on above: Performed By: #### D RUGRPD #### [facility] [address] [place], [place] [address] Vandana Jacobson NEUT # 8.1 103/ul Critically high 1.4-6.5 [facility] Comment on above: Performed By: #### D RUGRPD #### [facility] [address] [place], [place] [address] Vandana Indira Neutrophils/100 WBC (Bld) 79.5 % Critically high 43.0-75.0 [facility] Comment on above: Performed By: #### D RUGRPD #### [facility] [address] [place] [id number] Vandanadave Jacobson Platelet mean volume (Bld) [Entitic vol] 10.6 fL Normal 9.5-13.5 [facility] Comment on above: Performed By: #### D RUGRPD #### [facility] [address] [place] [address] Vandana Indira PLT 256 103/ul Normal 150-450 [facility] Comment on above: Performed By: #### D RUGRPD #### [facility] [address] [place] [address] Vandana Indira RBC 4.90 106/ul Normal 4.20-5.40 [facility] Comment on above: Performed By: #### D RUGRPD #### [facility] [address] [place] [address] Vandana Indira WBC 10.2 103/ul Normal 4.0-11.0 [facility] Comment on above: Performed By: #### Ceci RUGRPD #### [facility] [address] [place] [address] Vandana Indira DRUG SCREEN RAPID (URINE)on 10-01-2020 AMP Negative Normal NEGATIVE [facility] Comment on above: Performed By: #### Ceci RUGRPD #### [facility] [address] [place] [address] Vandana Indira BAR Negative Normal NEGATIVE [facility] Comment on above: Performed By: #### Ceci RUGRPD #### [facility] [address] [place] [address] Vandana Indira BUP Negative Normal NEGATIVE [facility] Comment on above: Performed By: #### Ceci RUGRPD #### [facility] [address] [place] [address] Vandana Indira BZO Negative Normal NEGATIVE [facility] Comment on above: Performed By: #### Ceci RUGRPD #### [facility] [address] [place] [address] Vandana Indira ROLANDA Negative Normal NEGATIVE [facility] Comment on above: Performed By: #### D RUGRPD #### [facility] [address] [place] [address] Vandana Indira CUT-OFFS SEE BELOW Normal [facility] Comment on above: Result Comment: AMP [...] ng/mL Performed By: #### D RUGRPD #### [facility] [address] [place] [address] DRUG CUT HEADER DRUG CLASS TEST SYSTEM CUT-OFF CONCENTRATIONS ARE FOLLOWS: Normal [facility] Comment on above: Performed By: #### D RUGRPD #### [facility] [address] [place] [address] Vandana Indira mAMP Negative Normal NEGATIVE [facility] Comment on above: Performed By: #### D RUGRPD #### [facility] [address] [place] [address] Vandana Indira MTD Negative Normal NEGATIVE [facility] Comment on above: Performed By: #### D RUGRPD #### [facility] [address] [place] [address] Vandana Indira OPI Negative Normal NEGATIVE [facility] Comment on above: Performed By: #### D RUGRPD #### [facility] [address] [place] [address] Vandana Indira OXY Negative Normal NEGATIVE [facility] Comment on above: Performed By: #### D RUGRPD #### [facility] [address] [place] [address] Indira PCP Negative Normal NEGATIVE [facility] Comment on above: Performed By: #### D RUGRPD #### [facility] [address] [place] [address] Vandana Indira PPX Negative Normal NEGATIVE [facility] Comment on above: Performed By: #### D RUGRPD #### [facility] [address] [place] [address] Vandana Jacobson TCA Negative Normal NEGATIVE [facility] Comment on above: Performed By: #### D RUGRPD #### [facility] [address] [place] [id number] Vandana Jacobson THC Negative Normal NEGATIVE [facility] Comment on above: Performed By: #### D RUGRPD #### [facility] [address] [place], [place] [address] Vandana Jacobson TYPE AND SCREENon 10-01-2020 TYPE AND SCREEN Negative Normal [facility] Comment on above: Performed By: #### D RUGRPD #### [facility] [address] [place], [place] [address] Vandana Jacobson US PREG GROWTHon 09-12-2020 US [...] EFW: 6 lbs. 13 oz., 58% FL/AC: 0.213794 FL/BPD: 0.280432 HC/AC: [id number] GESTATIONAL AGE: Age by EDC: 36 weeks 6 days YUE by EDC: 10/04/2020 Age by US: 37 weeks 0 days YUE by US: 10/03/2020 IMPRESSION: Normal interval growth Electronically authenticated by: KECIA LEI Date: 2020-09-12 13:13 Normal [facility] HEMOGLOBINOPATHY FRACTIONATI ON CASCADEon 09-11-2020 HGB A 97.4 % Normal 96.4-98.8 [facility] Comment on above: Performed By: #### U MICRO, UACSIND #### [facility] [address] [place] [address] Vandana Jacobson HGB A2 2.6 % Normal 1.8-3.2 [facility] Comment on above: Performed By: #### U MICRO, UACSIND #### [facility] [address] [place] [address] Vandana Jacobson HGB F 0.0 % Normal 0.0-2.0 [facility] Comment on above: Performed By: #### U MICRO, UACSIND #### [facility] [address] [place] [address] Vandana Jacobson HGB S 0.0 % Normal 0.0 [facility] Comment on above: Performed By: #### U MICRO, UACSIND #### [facility] [address] [place], [place] [phone] Vandana Jacobson Interpretation: Comment Normal [facility] Comment on above: Result Comment: Norm al hemoglobin present; no hemoglobin variant or thalassemia observed. Performed By: #### U MICRO, UACSIND #### [facility] [address] [place] [address] Vandana Jacobson CBC AUTO DIFFon 09-10-2020 BASO # 0.0 103/ul Normal 0.0-0.1 [facility] Comment on above: Performed By: #### C BC #### [facility] [address] [place] [address] Vandana Jacobson Basophils/100 WBC (Bld) 0.1 % Critically low 0.2-2.0 [facility] Comment on above: Performed By: #### C BC #### [facility] [address] [place] [address] Vandana Jacobson EO # 0.0 103/ul Normal 0.0-0.7 [facility] Comment on above: Performed By: #### C BC #### [facility] [address] [place] [address] Vandana Jacobson Eosinophils/100 WBC (Bld) 0.4 % Critically low 0.9-7.0 [facility] Comment on above: Performed By: #### C BC #### [facility] [address] [place] [address] Vandana Lien Erythrocyte distribution width (RBC) [Ratio] 16.0 % Critically high 11.0-15.0 [facility] Comment on above: Performed By: #### C BC #### [facility] [address] [place] [address] Vandana Jacobson Hematocrit (Bld) [Volume fraction] 36.5 % Normal 36.0-48.0 [facility] Comment on above: Performed By: #### C BC #### [facility] [address] [place] [address] Vandana Jacobson Hemoglobin (Bld) [Mass/Vol] 12.2 g/dL Normal 12.0-16.0 [facility] Comment on above: Performed By: #### C BC #### [facility] [address] [place] [address] Vandana Jacobson IG # 0.07 10e3/ul Critically high 0.00-0.03 [facility] Comment on above: Performed By: #### C BC #### [facility] [address] [place] [address] Vandana Jacobson IG % 0.9 % Critically high 0.0-0.5 [facility] Comment on above: Performed By: #### C BC #### [facility] [address] [place] [address] Vandana Jacobson LYMPH # 1.9 103/ul Normal 1.2-3.8 [facility] Comment on above: Performed By: #### C BC #### [facility] [address] [place] [address] Vandana Jacobson Lymphocytes/100 WBC (Bld) 23.7 % Normal 20.5-60.0 [facility] Comment on above: Performed By: #### C BC #### [facility] [address] [place], [place] [phone] Vandana Jacobson MANUAL DIFF REQ NO Normal [facility] Comment on above: Performed By: #### C BC #### [facility] [address] [place], [place] [address] Vandana Jacobson MCH (RBC) [Entitic mass] 27.4 pg Normal 26.7-34.0 [facility] Comment on above: Performed By: #### C BC #### [facility] [address] [place], [place] [address] Vandanadave Jacobson MCHC (RBC) [Mass/Vol] 33.4 g/dL Normal 29.9-35.2 [facility] Comment on above: Performed By: #### C BC #### [facility] [address] [place], [place] [address] Vandana Indira MCV (RBC) [Entitic vol] 82.0 fL Normal 81.0-99.0 [facility] Comment on above: Performed By: #### C BC #### [facility] [address] [place] [id number] Vandana Indira MONO # 0.7 103/ul Normal 0.3-0.8 [facility] Comment on above: Performed By: #### C BC #### [facility] [address] [place], [place] [address] Vandana Indira Monocytes/100 WBC (Bld) 8.8 % Normal 1.7-12.0 [facility] Comment on above: Performed By: #### C BC #### [facility] [address] [place], [place] [address] Vandana Indira NEUT # 5.3 103/ul Normal 1.4-6.5 [facility] Comment on above: Performed By: #### C BC #### [facility] [address] [place], [place] [address] Vandana Indira Neutrophils/100 WBC (Bld) 66.1 % Normal 43.0-75.0 [facility] Comment on above: Performed By: #### C BC #### [facility] [address] [place] [address] Vandana Indira Platelet mean volume (Bld) [Entitic vol] 11.6 fL Normal 9.5-13.5 [facility] Comment on above: Performed By: #### C BC #### [facility] [address] [place] [id number] Vandana Indira PLT 221 103/ul Normal 150-450 [facility] Comment on above: Performed By: #### C BC #### [facility] [address] [place] [address] Vandana Jacobosn RBC 4.45 106/ul Normal 4.20-5.40 [facility] Comment on above: Performed By: #### C BC #### [facility] [address] [place] [address] Vandana Jacobson WBC 8.1 103/ul Normal 4.0-11.0 [facility] Comment on above: Performed By: #### C BC #### [facility] [address] [place] [address] Vandana Jacobson VAGINITIS/VAGINOSIS DNA PROB Miller 09-08-2020 Nichole species Negative Normal Negative [facility] Comment on above: Performed By: #### V AGINT #### [facility] [address] [place] [address] Vandana Jacobson Gardnerella vaginalis Negative Normal Negative [facility] Comment on above: Performed By: #### V AGINT #### [facility] [address] [place] [address] Vandana Jacobson Trichomonas vaginalis Negative Normal Negative [facility] Comment on above: Performed By: #### V AGINT #### [facility] [address] [place] [address] Vandana Jacobson CHLAMYDIA/GONOCOCCUS RAMA (SW AB/URINE/PAPon 09-07-2020 Chlamydia trachomatis, RAMA Negative Normal Negative [facility] Comment on above: Performed By: #### D RUGRPD #### [facility] [address] [place] [address] Vandana Jacobson Neisseria gonorrhoeae, RAMA Negative Normal Negative [facility] Comment on above: Performed By: #### D RUGRPD #### [facility] [address] [place], [place] [address] Vandana Jacobson GROUP B STREP CULTUREon S. agalactiae Ag Ql (Unsp spec) Culture Observations: NEGATIVE FOR GROUP B STREPTOCOCCUS. Normal [facility] Comment on above: Performed By: #### D RUGRPD #### [facility] [address] [place] [address] Vandana Indira CULTURE URINEon 08-31-2020 CULTURE URINE Culture Observations: LIGHT GROWTH OF MIXED GENITAL TEDDY. NO POTENTIAL PATHOGENS SEEN. Normal [facility] Comment on above: Performed By: #### D RUGRPD #### [facility] [address] [place] [address] Vandana Indira UA (CLEAN/CATCH) PSYCHIATRIC NURSING AIDE/MICRO I F IND.on 08-31-2020 Bilirubin Ql (U) Negative Normal NEGATIVE [facility] Comment on above: Performed By: #### U MICRO, UACSIND #### [facility] [address] [place] [address] Vandana Indira Clarity (U) SL CLOUDY Abnormal CLEAR [facility] Comment on above: Performed By: #### U MICRO, UACSIND #### [facility] [address] [place] [address] Vandana Indira Color (U) LT. YELLOW Normal YELLOW [facility] Comment on above: Performed By: #### U MICRO, UACSIND #### [facility] [address] [place] [address] Vandana Indira Glucose Ql (U) Negative Normal NEGATIVE [facility] Comment on above: Performed By: #### U MICRO, UACSIND #### [facility] [address] [place] [address] Vandana Indira Hemoglobin Ql (U) Negative Normal NEGATIVE [facility] Comment on above: Performed By: #### U MICRO, UACSIND #### [facility] [address] [place] [address] Vandana Indira Ketones Ql (U) 15 mg/dl Abnormal NEGATIVE [facility] Comment on above: Performed By: #### U MICRO, UACSIND #### [facility] [address] [place] [address] Vandana Indira LEUKOCYTES SMALL Abnormal NEGATIVE [facility] Comment on above: Performed By: #### U MICRO, UACSIND #### [facility] [address] [place] [address] Vandana Indira Nitrite Ql (U) Negative Normal NEGATIVE [facility] Comment on above: Performed By: #### U MICRO, UACSIND #### [facility] [address] [place] [address] Vandanadave Jacobson pH (U) 7.0 [pH] Normal 5-9 [facility] Comment on above: Performed By: #### U MICRO, UACSIND #### [facility] [address] [place] [address] Vandana Jacobson SPEC GRAVITY 1.015 Normal 1.005-<=1.025 [facility] Comment on above: Performed By: #### U MICRO, UACSIND #### [facility] [address] [place] [address] Vandanadave Jacobson UA PROTEIN Negative Normal NEGATIVE/ TRACE [facility] Comment on above: Performed By: #### U MICRO, UACSIND #### [facility] [address] [place] [address] Vandana Jacobson UR MICRO IND INDICATED Normal [facility] Comment on above: Performed By: #### U MICRO, UACSIND #### [facility] [address] [place] [address] Vandana Jacobson Urobilinogen Qn (U) 0.2 {Richard'U}/dL Normal 0.2 - 1. 0 [facility] Comment on above: Performed By: #### U MICRO, UACSIND #### [facility] [address] [place] [address] Vandanadave Jacobson URINE MICROSCOPIC ONLYon BACTERIA SMALL Abnormal NONE SEEN [facility] Comment on above: Performed By: #### U MICRO, UACSIND #### [facility] [address] [place] [address] Vandana Jacobson Bacteria identified Cx Nom (U) INDICATED Normal [facility] Comment on above: Performed By: #### U MICRO, UACSIND #### [facility] [address] [place] [address] Vandana Indira CAST NONE SEEN Normal NONE SEEN [facility] Comment on above: Performed By: #### U MICRO, UACSIND #### [facility] [address] [place] [address] Vandana Indira Crystals LM Nom (Urine sed) NONE SEEN Normal NONE SEEN [facility] Comment on above: Performed By: #### U MICRO, UACSIND #### [facility] [address] [place] [address] Vandana Indira Epithelial cells LM Ql (Urine sed) MODERATE Abnormal NONE SEEN /RARE [facility] Comment on above: Performed By: #### U MICRO, UACSIND #### [facility] [address] [place] [address] Vandana Indira MUCOUS NONE SEEN Normal NONE SEEN [facility] Comment on above: Performed By: #### U MICRO, UACSIND #### [facility] [address] [place] [address] Vandana Indira RBC NONE SEEN Abnormal 0-2 [facility] Comment on above: Performed By: #### U MICRO, UACSIND #### [facility] [address] [place] [address] Vandana Indira WBC NONE SEEN Normal NONE SEEN [facility] Comment on above: Performed By: #### U MICRO, UACSIND #### [facility] [address] [place], [place] [phone] Vandana Indira CULTURE URINEon 08-01-2020 CULTURE URINE Culture Observations: LIGHT GROWTH OF MIXED GENITAL TEDDY. NO POTENTIAL PATHOGENS SEEN. Normal [facility] Comment on above: Performed By: #### U RCX #### [facility] [address] [place] [address] Vandana Indira UA RANDOM W/MICROSCOPICon BACTERIA TRACE Abnormal NONE SEEN [facility] Comment on above: Performed By: #### U AMIC #### [facility] [address] [place] [address] Vandana Indira Bilirubin Ql (U) Negative Normal NEGATIVE [facility] Comment on above: Performed By: #### U AMIC #### [facility] [address] [place] [address] Vandana Indira CAST NONE SEEN Normal NONE SEEN [facility] Comment on above: Performed By: #### U AMIC #### [facility] [address] [place], [place] [address] Vandana Indira Clarity (U) CLEAR Normal CLEAR [facility] Comment on above: Performed By: #### U AMIC #### [facility] [address] [id number] Vandana Indira Color (U) LT. YELLOW Normal YELLOW [facility] Comment on above: Performed By: #### U AMIC #### [facility] [address] [id number] Vandana Indira Crystals LM Nom (Urine sed) NONE SEEN Normal NONE SEEN [facility] Comment on above: Performed By: #### U AMIC #### [facility] [address] [address] Vandana Indira Epithelial cells LM Ql (Urine sed) FEW Abnormal NONE SEEN /RARE [facility] Comment on above: Performed By: #### U AMIC #### [facility] [address] [place] [address] Vandana Indira Glucose Ql (U) Negative Normal NEGATIVE [facility] Comment on above: Performed By: #### U AMIC #### [facility] [address] [place] [address] Vandana Indira Hemoglobin Ql (U) Negative Normal NEGATIVE [facility] Comment on above: Performed By: #### U AMIC #### [facility] [address] [place] [address] Vandana Indira Ketones Ql (U) Negative Normal NEGATIVE [facility] Comment on above: Performed By: #### U AMIC #### [facility] [address] [place] [address] Vandana Indira LEUKOCYTES Negative Normal NEGATIVE [facility] Comment on above: Performed By: #### U AMIC #### [facility] [address] [place], [place] [address] Vandana Indira MUCOUS NONE SEEN Normal NONE SEEN [facility] Comment on above: Performed By: #### U AMIC #### [facility] [address] [place], [place] [address] Vandana Indira Nitrite Ql (U) Negative Normal NEGATIVE [facility] Comment on above: Performed By: #### U AMIC #### [facility] [address] [place], [place] [address] Vandanadave Jacobson pH (U) 7.5 [pH] Normal 5-9 [facility] Comment on above: Performed By: #### U AMIC #### [facility] [address] [place] [address] Vandanadave Jacobson RBC 0-2 Normal 0-2 [facility] Comment on above: Performed By: #### U AMIC #### [facility] [address] [place] [address] Vandana Jacobson SPEC GRAVITY 1.015 Normal 1.005-<=1.025 [facility] Comment on above: Performed By: #### U AMIC #### [facility] [address] [place] [address] Vandanadave Jacobson UA PROTEIN Negative Normal NEGATIVE/ TRACE [facility] Comment on above: Performed By: #### U AMIC #### [facility] [address] [place] [address] Vandanadave Jacobson Urobilinogen Qn (U) 0.2 {Richard'U}/dL Normal 0.2 - 1. 0 [facility] Comment on above: Performed By: #### U AMIC #### [facility] [address] [place] [address] Vandana Indira WBC 0-2 Abnormal NONE SEEN [facility] Comment on above: Performed By: #### U AMIC #### [facility] [address] [place] [address] Vandanadave Jacobson CBC AUTO DIFFon 12-17-2019 BASO # 0.0 103/ul Normal 0.0-0.1 [facility] Comment on above: Performed By: #### C BC #### [facility] [address] [place] [address] Vandana Jacobson Basophils/100 WBC (Bld) 0.1 % Critically low 0.2-2.0 [facility] Comment on above: Performed By: #### C BC #### [facility] [address] [place] [address] Vandana Indira EO # 0.1 103/ul Normal 0.0-0.7 [facility] Comment on above: Performed By: #### C BC #### [facility] [address] [place] [address] Vandana Indria Eosinophils/100 WBC (Bld) 0.9 % Normal 0.9-7.0 [facility] Comment on above: Performed By: #### C BC #### [facility] [address] [place] [address] Vandana Indira Erythrocyte distribution width (RBC) [Ratio] 14.3 % Normal 11.0-15.0 [facility] Comment on above: Performed By: #### C BC #### [facility] [address] [place] [address] Vandana Indira Hematocrit (Bld) [Volume fraction] 40.5 % Normal 36.0-48.0 [facility] Comment on above: Performed By: #### C BC #### [facility] [address] [place] [address] Vandana Indira Hemoglobin (Bld) [Mass/Vol] 13.2 g/dL Normal 12.0-16.0 [facility] Comment on above: Performed By: #### C BC #### [facility] [address] [place] [address] Vandana Indira IG # 0.01 10e3/ul Normal 0.00-0.03 [facility] Comment on above: Performed By: #### C BC #### [facility] [address] [place] [address] Vandana Indira IG % 0.1 % Normal 0.0-0.5 [facility] Comment on above: Performed By: #### C BC #### [facility] [address] [place] [address] Vandana Indira LYMPH # 2.0 103/ul Normal 1.2-3.8 [facility] Comment on above: Performed By: #### C BC #### [facility] [address] [place] [address] Vandana Indira Lymphocytes/100 WBC (Bld) 27.9 % Normal 20.5-60.0 [facility] Comment on above: Performed By: #### C BC #### [facility] [address] [id number] Vandana Indira MANUAL DIFF REQ NO Normal [facility] Comment on above: Performed By: #### C BC #### [facility] [address] [id number] Vandana Indira MCH (RBC) [Entitic mass] 25.7 pg Critically low 26.7-34.0 [facility] Comment on above: Performed By: #### C BC #### [facility] [address] [place] [address] Vandana Indira MCHC (RBC) [Mass/Vol] 32.6 g/dL Normal 29.9-35.2 [facility] Comment on above: Performed By: #### C BC #### [facility] [address] [place] [address] Vandana Indira MCV (RBC) [Entitic vol] 78.9 fL Critically low 81.0-99.0 [facility] Comment on above: Performed By: #### C BC #### [facility] [address] [place], [place] [id number] Vandana Indira MONO # 0.5 103/ul Normal 0.3-0.8 [facility] Comment on above: Performed By: #### C BC #### [facility] [address] [place], [place] [id number] Vandana Indira Monocytes/100 WBC (Bld) 7.0 % Normal 1.7-12.0 [facility] Comment on above: Performed By: #### C BC #### [facility] [address] [place] [address] Vandana Indira NEUT # 4.5 103/ul Normal 1.4-6.5 [facility] Comment on above: Performed By: #### C BC #### [facility] [address] [place], [place] [phone] Vandana Indira Neutrophils/100 WBC (Bld) 64.0 % Normal 43.0-75.0 [facility] Comment on above: Performed By: #### C BC #### [facility] [address] [place], [place] [phone] Vandana Jacobson Platelet mean volume (Bld) [Entitic vol] 8.9 fL Critically low 9.5-13.5 [facility] Comment on above: Performed By: #### C BC #### [facility] [address] [place], [place] [address] Vandanadave Jacobson PLT 345 103/ul Normal 150-450 [facility] Comment on above: Performed By: #### C BC #### [facility] [address] [place] [address] Vandana Jacobson RBC 5.13 106/ul Normal 4.20-5.40 [facility] Comment on above: Performed By: #### C BC #### [facility] [address] [place] [address] Vandana Jacobson WBC 7.1 103/ul Normal 4.0-11.0 [facility] Comment on above: Performed By: #### C BC #### [facility] [address] [place] [address] Vandana Jacobson FERRITINon 12-17-2019 Ferritin [Mass/Vol] 27.0 ng/mL Normal 6.2-137.0 [facility] Comment on above: Performed By: #### D JUDI #### [facility] [address] [place] [address] Vandana Jacobson IRONon 12-17-2019 Iron [Mass/Vol] 35.0 ug/dL Critically low 37.0-170.0 [facility] Comment on above: Performed By: #### D JUDI #### [facility] [address] [place], [place] [address] Vandana Jacobson PROF 14(COMP METB)on 020 Albumin [Mass/Vol] 3.7 g/dL Normal 3.5-5.0 [facility] Comment on above: Performed By: #### C MP #### [facility] [address] [place], [place] [address] Vandana Jacobson Albumin/Globulin [Mass ratio] 0.9 {ratio} Normal [facility] Comment on above: Performed By: #### C MP #### [facility] [address] [place], [place] [address] Vandana Indira ALP [Catalytic activity/Vol] 82 U/L Normal 38-126 [facility] Comment on above: Performed By: #### C MP #### [facility] [address] [id number] Vandana Indira ALT [Catalytic activity/Vol] 21 U/L Normal 9-52 [facility] Comment on above: Performed By: #### C MP #### [facility] [address] [id number] Vandana Indira Anion gap [Moles/Vol] 12.5 mmol/L Normal [facility] Comment on above: Performed By: #### C MP #### [facility] [address] [place] [address] Vandana Indira AST [Catalytic activity/Vol] 15 U/L Normal 14-36 [facility] Comment on above: Performed By: #### C MP #### [facility] [address] [place] [address] Vandana Indira Bilirubin [Mass/Vol] 0.3 mg/dL Normal 0.2-1.3 [facility] Comment on above: Performed By: #### C MP #### [facility] [address] [place], [place] [address] Vandana Indira Calcium [Mass/Vol] 9.5 mg/dL Normal 8.4-10.2 [facility] Comment on above: Performed By: #### C MP #### [facility] [address] [place] [address] Vandana Indira Chloride [Moles/Vol] 104 mmol/L Normal 98-107 [facility] Comment on above: Performed By: #### C MP #### [facility] [address] [place], [place] [address] Vandana Indira CO2 [Moles/Vol] 28.4 mmol/L Normal 22.0-30.0 [facility] Comment on above: Performed By: #### C MP #### [facility] [address] [place], [place] [address] Vandana Indira Creatinine [Mass/Vol] 0.69 mg/dL Normal 0.52-1.04 [facility] Comment on above: Performed By: #### C MP #### [facility] [address] [place], [place] [address] Vandana Indira EGFR-AF BELIZEAN >60 Normal >=60 [facility] Comment on above: Performed By: #### C MP #### [facility] [address] [id number] Vandana Indira EGFR-NON AF BELIZEAN >60 Normal >=60 [facility] Comment on above: Performed By: #### C MP #### [facility] [address] [id number] Vandana Indira Globulin (S) [Mass/Vol] 4.1 g/dL Normal [facility] Comment on above: Performed By: #### C MP #### [facility] [address] [place] [address] Vandana Indira Glucose [Mass/Vol] 94 mg/dL Normal 74-106 [facility] Comment on above: Performed By: #### C MP #### [facility] [address] [place], [place] [address] Vandana Indira Potassium [Moles/Vol] 3.9 mmol/L Normal 3.4-5.0 [facility] Comment on above: Performed By: #### C MP #### [facility] [address] [place], [place] [address] Vandana Indira Protein [Mass/Vol] 7.8 g/dL Normal 6.1-8.2 [facility] Comment on above: Performed By: #### C MP #### [facility] [address] [place], [place] [address] Vandana Indira Sodium [Moles/Vol] 141 mmol/L Normal 137-145 [facility] Comment on above: Performed By: #### C MP #### [facility] [address] [place], [place] [address] Vandana Indira Urea nitrogen [Mass/Vol] 16.0 mg/dL Normal 7.0-17.0 [facility] Comment on above: Performed By: #### C MP #### [facility] [address] [phone] Vandanadave Jacobson Urea nitrogen/Creatinine [Mass ratio] 23.2 mg/mg Normal [facility] Comment on above: Performed By: #### C MP #### [facility] [address] [phone] Vandanadave Jacobson PROTIMEon 12-17-2019 INR Coag (PPP) [Relative time] 0.97 {INR} Normal [facility] Comment on above: Performed By: #### D RUGRPD #### [facility] [address] [place], [place] [address] Vandana Indira INR GUIDELINES SEE BELOW Normal [facility] Comment on above: Result Comment: ABHIJIT RED INR: 2.0 - 3.0 CONDITIONS NOT LISTED BELOW 2.5 - 3.5 FOR PROSTHETIC HEART VALVE REPLACEMENT 2.5 - 3.5 RECURRENT THROMBOSIS Performed By: #### D RUGBELA #### [facility] [address] [address] Vandana Indira PT Coag (PPP) [Time] 10.3 s Normal 9.0-11.6 [facility] Comment on above: Performed By: #### D RUGRPD #### [facility] [address] [place] [address] Vandana Indira PT NORMAL PLEASE NOTE: NORMAL RANGE CHANGE 11-24-2013 DUE TO REAGENT LOT CHANGE [facility] Comment on above: Performed By: #### D RUGRPD #### [facility] [address] [address] Vandanadave Jacobson PTTon 12-17-2019 aPTT Coag (Bld) [Time] 30.7 s Normal 22.3-36.2 Th e [facility] Comment on above: Performed By: #### D RUGRPD #### [facility] [address] [place] [address] Vandana Indira PTT NORMAL PLEASE NOTE: NORMAL RANGE CHANGE 01-31-2015 DUE TO REAGENT LOT CHANGE Normal [facility] Comment on above: Performed By: #### D RUGSHANNAND #### [facility] [address] [place], [place] [address] Vandana Jacobson Vital Signs Date Time Vital Sign Value Performing Clinician Facility 04-30-2023 10:23-0500 Diastolic blood pressure 84 mm[Hg] PHYSICIAN NO [facility] 04-30-2023 10:23-0500 Heart rate 67 /min [facility] 04-30-2023 10:23-0500 Respiratory rate 18 /min PHYSICIAN NO [facility] 04-30-2023 10:23-0500 SaO2% (BldA) [Mass fraction] 99 % PHYSICIAN NO [facility] 04-30-2023 10:23-0500 Systolic blood pressure 130 mm[Hg] PHYSICIAN NO [facility] 04-30-2023 08:53-0500 Body temperature 98.3 [degF] PHYSICIAN NO [facility] 04-30-2023 08:12-0500 Inhaled oxygen flow rate 8 L/min PHYSICIAN NO [facility] 04-30-2023 07:44-0500 Body height 152.4 cm PHYSICIAN [facility] 04-30-2023 07:44-0500 Body mass index (BMI) [Ratio] 28.7 kg/m2 PHYSICIAN NO [facility] 04-30-2023 07:44-0500 Body weight 66.67 kg PHYSICIAN [facility] 04-24-2023 11:55-0500 Diastolic blood pressure 86 mm[Hg] PHYSICIAN NO [facility] 04-24-2023 11:55-0500 Heart rate 65 /min PHYSICIAN [facility] 04-24-2023 11:55-0500 Respiratory rate 16 /min PHYSICIAN NO [facility] 04-24-2023 11:55-0500 SaO2% (BldA) [Mass fraction] 100 % PHYSICIAN NO [facility] 04-24-2023 11:55-0500 Systolic blood pressure 119 mm[Hg] PHYSICIAN NO [facility] 04-24-2023 11:07-0500 Body temperature 98 [degF] PHYSICIAN NO [facility] 04-24-2023 10:42-0500 Inhaled oxygen flow rate 8 L/min PHYSICIAN NO [facility] 04-24-2023 08:52-0500 Body height 152.4 cm PHYSICIAN [facility] 04-24-2023 08:52-0500 Body mass index (BMI) [Ratio] 29 kg/m2 PHYSICIAN NO [facility] 04-24-2023 08:52-0500 Body weight 67.58 kg PHYSICIAN [facility] 04-20-2023 08:56-0500 Body mass index (BMI) [Ratio] 30.09 kg/m2 Nils Sarkar MD Work Phone: [facility] 04-20-2023 08:56-0500 Body weight 67.59 kg Nils Sarkar MD Work Phone: [facility] 04-20-2023 08:56-0500 Diastolic blood pressure 66 mm[Hg] Nils Sarkar MD Work Phone: [facility] 04-20-2023 08:56-0500 Systolic blood pressure 110 mm[Hg] Nils Sarkar MD Work Phone: [facility] Healthcare Encounters Encounter Date Encounter Type Care Provider Facility Start: 05-11-2023 End: 05-11-2023 ambulatory NILS SARKAR Not Available Start: 04-29-2023 End: 04-30-2023 ambulatory Nils Sarkar Facility:[facility] Start: 04-29-2023 End: 04-30-2023 Patient encounter procedure PHYSICIAN NO [facility] Start: 04-29-2023 End: 04-30-2023 ambulatory PHYSICIAN NO [facility] Work Phone: Start: 04-24-2023 End: 04-24-2023 ambulatory Nils Sarkar Facility:[facility] Start: 04-24-2023 End: 04-24-2023 Admission to same day surgery center PHYSICIAN NO [facility] [place] Start: 04-24-2023 End: 04-24-2023 ambulatory PHYSICIAN NO [facility] Work Phone: Start: 04-20-2023 End: 04-20-2023 Office outpatient visit 10 minutes Nils Sarkar MD Work Phone: [facility] Comment on above: Missed ; Bleeding [...] BURK Facility:H1 Start: 09-12-2020 End: 09-13-2020 ambulatory DAIRY FROZEN MANAGER LLUVIA TATYANA Facility:[facility]1 Start: 09-10-2020 End: 09-11-2020 ambulatory KOFI CURRIE Facility:[facility]1 Start: 09-06-2020 End: 09-06-2020 ambulatory DAIRY FROZEN MANAGER LLUVIA AICCAROLINAZ Facility:H1 Start: 08-31-2020 End: 08-31-2020 ambulatory DAIRY FROZEN MANAGER LLUVIA AICHHOLZ Facility:[facility]1 Start: 08-01-2020 End: 08-01-2020 ambulatory DAIRY FROZEN MANAGER LLUVIA AICHHOLZ Facility:[facility]1 Start: 12-17-2019 End: 12-18-2019 ambulatory DAIRY FROZEN MANAGER LLUVIA AICHHOLZ Facility:[facility]1 Procedures Date Procedure Procedure Detail Performing Clinician Start: 04-30-2023 Dilation and curetta ge of uterus PHYSICIAN NO FAMILY Start: 04-30-2023 Pelvic echography PHYSI RADHA NO FAMILY Start: 04-30-2023 Transvaginal echography PHYSICIAN NO FAMILY Start: 04-29-2023 Antibody screen Nils Sarkar Comment on above: Result Comment: PERF ORMED BY: [facility] [address] [place] [address] PATHOLOGIST SUPPLY CHAIN SPECIALIST CHUY PALOMO M.D. Start: 04-24-2023 Dilation and curetta ge of uterus PHYSICIAN NO FAMILY Start: 10-01-2020 Delivery of Products of Conception, External Approach TERENCE JOE Start: 10-01-2020 Repair Vulva, Electronic Train Control Technician al Approach TERENCE JOE Plan of Treatment Date Care Activity Detail Author Start: 04-30-2023 [facility] Start: 04-24-2023 [facility] Start: 04-24-2023 End: 04-24-2023 [facility] Start: 04-20-2023 End: 04-20-2024 hCG, quantitative [facility] Work Phone: Comment on above: Ordered: 04/20/2023 Expected: 04/20/2023 (Approximate), Expires: 04/20/2024 Start: 04-13-2023 End: 04-13-2023 Patient encounter procedure 04/13/2023 9:45 AM EST Office Visit [facility] [address] [place] [address] Nils Sarkar MD [address] [place] [address] [facility] Start: 04-13-2023 End: 04-13-2023 Professional / ancillary services management 04/13/2023 9:30 AM EST Ancillary Procedure [facility] [address] [place] [id number] [facility] Basophils [#/volume] in Blood by Automated count [facility] Basophils/100 leukoc ytes in Blood by Automated count [facility] Eosinophils/100 leukocytes in Blood by Automated count [facility] Erythrocyte distribu tion width [Ratio] by Automated count [facility] Erythrocytes [#/volu me] in Blood [facility] Hematocrit [Volume Fraction] of Blood [facility] Hemoglobin [Mass/vol ume] in Blood [facility] Leukocytes [#/volume ] corrected for nucleated erythrocytes in Blood by Automated coun [facility] Leukocytes [#/volume ] in Blood [facility] Lymphocytes [#/volum e] in Blood by Automated count [facility] Lymphocytes/100 leukocytes in Blood by Automated count [facility] MCH [Entitic mass] b y Automated count [facility] MCHC [Mass/volume] b y Automated count [facility] MCV [Entitic volume] by Automated count [facility] Monocytes [#/volume] in Blood by Automated count [facility] Monocytes/100 leukoc ytes in Blood by Automated count [facility] MYCOPLASMA/UREAPLASM A PANEL MYCOPLASMA/UREAPLASMA PANEL Lab Routine Vaginal discharge Ordered: 04/20/2023 [facility] Comment on above: Ordered: 04/20/2023 Neutrophils [#/volum e] in Blood by Automated count [facility] Neutrophils/100 leukocytes in Blood by Automated count [facility] Nucleated erythrocyt es [Presence] in Blood by Automated count [facility] Patient Education [facility] Work Phone: Patient referral [facility] Work Phone: Platelet mean volume [Entitic volume] in Blood by Automated [facility] Platelets [#/volume] in Blood [facility] Payers Date Payer Category Payer Self-pay 2023 Unknown BCBS BCBS xxxxxx [id number] 2023-Present [phone] [address] [place] [address] [id number] 2023 Unknown [id number] 1998 Unknown [id number] 1998 Unknown [id number] [id number]3 1998 Unknown [id number] 2.16.840.1.248970.3.579.2.593 1998 Unknown [id number] 2.16.840.1.470001.3.579.2.593 1998 Unknown [id number] 2.16.840.1.962344.3.579.2.593 1998 Unknown [id number] 2.16.840.1.010404.3.579.2.593 1998 Unknown [id number] 2.16.840.1.531367.3.579.2.593 1998 Unknown [id number] 2.16.840.1.748266.3.579.2.593 1998 Unknown [id number] 2.16.840.1.815741.3.579.2.593 1998 Unknown [id number] 2.16.840.1.602450.3.579.2.1259 1998 Unknown [id number] 2.16.840.1.014992.3.579.2.1259 1998 Unknown [id number] 2.16.840.1.971095.3.579.2.1259 1998 Unknown [id number] 2.16.840.1.843590.3.579.2.1259 1998 Unknown [id number] 2.16.840.1.907353.3.579.2.1259 1998 Unknown [id number] 2.16.840.1.891401.3.579.2.1259 1959 Unknown [id number] 1959 Unknown [id number] Unknown [id number] 2.16.840.1.486299.3.579.2.531 Unknown [id number] 2.16.840.1.073615.3.579.2.531 Social History Date Type Detail Facility Start: 08-13-2022 End: 04-30-2023 Tobacco smoking status [facility] Never smoked tobacco [facility] Start: 08-13-2022 Tobacco use and exposure Smokeless tobacco non-user [facility] Start: 04-07-2023 End: 04-20-2023 Alcohol intake Ex-drinker (finding) [facility] Start: 08-13-2022 End: 04-13-2023 History of Social function [facility] Start: 08-13-2022 End: 04-13-2023 Tobacco use panel [facility] Start: 08-13-2022 Alcohol Comment none with [facility] Start: 2000 Sex Assigned At Not on file [facility] The thought of gilberto salinas myself has occurred to me Never [facility] Start: 1998 Sex Assigned At Female F [facility] Goals Date Patient Goal Desired Activity /State Functional Status Date Assessment Result Facility 04-29-2023 Functional status Patient at Baseline [facility] Work Phone: Mental Status Date Assessment Result Facility 04-29-2023 Cognitive function Cognitive Sta tus Patient at Baseline [facility] Work Phone: History and physical note 04-30-2023 Note Date & Type Note Facility 04-30-2023 History and physical note Note Date/Time April 29, 2023 10:09pm [facility] [address] [place] [address] 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 History & Physical Signed Patient: Sarah Arce MR#: [id number] : 2000 Acct:[id number] Age/Sex: 23 / F Adm Date: 4 Loc: Room: [address] [place] [address] Type: REG CLI Attending Dr: Nils Sarkar MD Copies to: NO FAMILY PHYSICIAN Nils Sarkar MD-[facility]~ Date of Service: 04/29/2023 MEDICAID BILLING CLERK - HPI History of Present Illness Chief [...] negative unless noted below or in HPI [facility] Medical History (Updated 04/29/23 @ 22:08 [...] 1,000 mls @ 125 mls/hr IV .Q8H [facility] Stop: 04/28/24 16:59 Last Admin: 04/29/23 17:50 Dose: 125 mls/hr Cefazolin Sodium (Ancef) 2 gm in 50 mls @ 100 mls/hr IV Q8H [facility] Last Admin: 04/29/23 17:51 Dose: 100 mls/hr Oxytocin 40 unit/ Lactated (Ringer's) 504 mls @ 150 mls/hr IV .Q3H22M ONE; Protocol Stop: 04/30/23 02:21 Misoprostol (Misoprostol 200 Mcg Tablet) 800 mcg VAGINAL Q4H [facility] Stop: 04/30/23 02:31 MEDICAID BILLING CLERK - Exam Physical Exam Vital signs: Temp [...] Routine Psychiatric Exam Psychiatric: Present normal affect MEDICAID BILLING CLERK - Results Laboratory Results - Last 48 hrs. 04/29/23 20:27: Blood Type Recheck A Positive 04/29/23 17:45: HCG, Quant 3230.00 04/29/23 17:31: Corrected WBC 13.6 H, Uncorrected WBC Count 13.6 H, RBC 4.93, Hgb 13.3, Hct 39.8, MCV 80.8, MCH 27.0, MCHC 33.5, RDW 13.9, Plt Count 369, MPV 7.0, Neut % (Auto) 77.6, Lymph % (Auto) 17.0, [place] % (Auto) 4.0, Eos % (Auto) 1.1, Baso % (Auto) 0.3, Nucleat RBC Rel Count 0.2, Neut # (Auto) 10.6 H, Lymph #(Auto) 2.3, [place] # (Auto) 0.5, Eos # (Auto) 0.2, Baso # (Auto) 0.0, Blood Type APositive, Antibody Screen Negative Diagnostic Imaging Comments: 2.1 cm uterine complex with vascularization, essentially unchanged from yesterday MEDICAID BILLING CLERK - A/P (1) Vaginal bleeding: Plan Failed Cytotec evacuation of uterine tissue Suction D&C D&C Documented By: CHUCK Astorga 04/29/23 22 06 Signed By: <Electronically signed by CHUCK Sarkar> 04/30/23 0702 [facility] Work Phone: History of Present [...] D&C on Thursday documented in this encounter [facility] Evaluation note Note Date & Type Note Facility Evaluation note Diagnosis Missed Bleeding in early Unspecified hemorrhage in early , unspecified as to episode of care Vaginal discharge Leukorrhea, not specified as infective documented in this encounter [facility] Evaluation note Note Date & Type Note Facility Evaluation note No assessment information availa ble [facility] Work Phone: Evaluation note Note Date & Type Note Facility Evaluation note Diagnosis Onset Date Vaginal bleeding acute [facility] Work Phone: Hospital Discharge instructions Note Date & Type Note Facility Hospital Discharge instructions Additional Instructions SPECIAL INSTRUCTIONS Call for heavy bleeding FOLLOW UP Thursday 10 am [facility] Work Phone: Summary Purpose Family [...] content) DATE CREATED AUTHOR 10/08/2020 [facility] DATE CREATED AUTHOR AUTHOR'S ORGANIZ ATION 05/31/2023 [facility] DATE CREATED AUTHOR AUTHOR'S ORGANIZ ATION 10/24/2023 [facility] EPIC Reason for Visit (unrecogniz ed section and content) Reason Comments Care Care Teams (unrecognized sec tion and content) 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 [employer] [facility]. provides no warranty or guarantee of the accuracy or completeness of information in this document.
[2023-11-13 08:32] LABS: Basophils Percent Auto 0.2 % (0.2-2.0); Eosinophils Absolute Auto 0.1 10^3/uL (0.0-0.7); Eosinophils Percent Auto 0.7 % (0.9-7.0); Hematocrit 37.9 % (36.0-48.0); Immature Granulocytes Abs Auto 0.03 10^3/uL (0.00-0.03); Immature Granulocytes Pct Auto 0.3 % (0.0-0.5); Lymphocytes Absolute Auto 1.7 10^3/uL (1.2-3.8); Lymphocytes Percent Auto 14.9 % (20.5-60.0); Mean Corpuscular HGB Conc 34.3 g/dL (29.9-35.2); Mean Corpuscular Hemoglobin 27.6 pg (26.7-34.0); Mean Corpuscular Volume 80.5 fL (81.0-99.0); Mean Platelet Volume 9.1 fL (9.5-13.5); Monocytes Absolute Auto 0.6 10^3/uL (0.3-0.8); Monocytes Percent Auto 5.6 % (1.7-12.0); Neutrophils Absolute Auto 8.7 10^3/uL (1.4-6.5); Neutrophils Percent Auto 78.3 % (43.0-75.0); Platelet Count 297 10^3/uL (150-450); Red Blood Count 4.71 10^6/uL (4.20-5.40); Red Cell Distribution Width 13.3 % (11.0-15.0); White Blood Count 11.1 10^3/uL (4.0-11.0)
[2023-11-13] MEDS: LACTATED RINGER'S SOLUTION 1,000 ML 50 ML IV (08:55)
[2023-11-13 09:30] LABS: HCG Quantitative 236139 mIU/mL
[2023-11-13] MEDS: LACTATED RINGER'S SOLUTION 1,000 ML 125 ML IV (11:00)
--- NOTE | 2023-11-13 11:17 | P.ON_ITS ---
Brief Operative Note Date of procedure: 11/13/23 Pre-op diagnosis general: molar Post-op diagnosis: same as pre-op Procedure: NAME OF PROCEDURE: [D&C suction ] PROCEDURE: The patient was taken back to the OR where she was given general anesthesia without difficulty. She was then placed in dorsal lithotomy position, prepped and draped in the normal sterile fashion. A weighted speculum was placed in the patient's vagina and the anterior lip of the cervix was identified and grasped with a single-tooth tenaculum. The patient was then gently dilated using Hegar dilators after we had sounded roughly to 10 cm. The suction curette was then tested. The suction curette was then placed in the patient's uterus and products of conception were removed using an 9-Syriac suction curette. ?Excellent hemostasis was noted. The patient tolerated the procedure well. Sponge, lap, and needle counts were correct x 2. All instruments were then removed from the patient's vagina. The patient was taken to the Recovery Room in stable condition . ?? Anesthesia: GETA Surgeon: Newton Carter Estimated blood loss (mL): 5 Pathology: other (poc) Condition: stable Disposition: PACU Urinary Catheter Management Urinary Catheter Management Urethral: Cath placed during this visit: no
[2023-11-13] MEDS: PROMETHAZINE HCL 25 MG TABLET PO (12:37)
--- NOTE | 2023-11-13 12:40 | PC.NURSE ---
pATIENT GOT UP TO URINATE AND BECAME NAUSEATED. HAD A SMALL EMESIS. PATIENT SLO URINATED AT THIS TIME.
--- NOTE | 2023-11-13 12:41 | PC.NURSE ---
ORAL PHENERGAN WAS GIVEN AT 1239 PATIENT IS RESTING
--- NOTE | 2023-11-13 13:08 | PC.NURSE ---
NO NAUSEA T TIME OF DISCHARGE
== END 2023-11-13 13:00 | disposition home or self-care (01) ==
PROVIDERS: Visit Provider Obstetrics & Gynecology
PROC: (CPT 1965; principal; 2023-11-13 09:45)
DX: O02.0 Blighted ovum and nonhydatidiform mole (principal)
CPT/HCPCS: 59820; 36415; 84702; 85025; 86900; 86901; J1100; J1885; J2250; J2590; J2704; J3010; Q0169

== ENCOUNTER 2023-12-01 09:52 | Outpatient (OUT) | payer BC, SELFPAY ==
--- OUTSIDE RECORDS SUMMARY | 2023-12-01 10:13 | XMS_ITS | CCD ---
Author Organization [facility] Care Team Providers Care Bleacher Pulp Name Role Phone AICHHOLZ, CHART COLLECTOR LLUVIA Primary Care Unavailable KOFI CURRIE Consulting Unavailable KOFI CURRIE Admitting Unavailable KOFI CURRIE Attending Unavailable AICHHOLZ, CHART COLLECTOR LLUVIA Primary Care Unavailable WEST, DR KECIA Devi Consulting Unavailable KOFI CURRIE Attending Unavailable KOFI CURRIE Admitting Unavailable KOFI CURRIE Consulting Unavailable KOFI CURRIE Attending Unavailable [facility] Referring Unavailable AICHHOLZ, CHART COLLECTOR LLUVIA Primary Care Unavailable KOFI CURRIE Consulting Unavailable KOFI CURRIE Admitting Unavailable KARASIK, DR STRONG Attending Unavailable AICHHOLZ, CHART COLLECTOR LLUVIA Primary Care Unavailable KARASIK, DR STRONG Consulting Unavailable KARASIK, DR STRONG Admitting Unavailable KARASIK, DR STRONG Procedure Practitioner Unava ilable KOFI CURRIE Consulting Unavailable KOFI CURRIE Attending Unavailable AICHHOLZ, CHART COLLECTOR LLUVIA Primary Care Unavailable KOFI CURRIE Admitting Unavailable AICHHOLZ, CHART COLLECTOR [place]UVIA Primary Care Unavailable KARASIK, DR STRONG Consulting Unavailable KARASIK, DR STRONG Admitting Unavailable KARASIK, DR STRONG Attending Unavailable KOFI CURRIE Consulting Unavailable KOFI CURRIE Attending Unavailable AICHHOLZ, CHART COLLECTOR [place]UVIA Primary Care Unavailable KOFI CURRIE Admitting Unavailable AICHHOLZ, CHART COLLECTOR [place] Primary Care Unavailable KOFI CURRIE Consulting Unavailable KOFI CURRIE Admitting Unavailable KOFI CURRIE Attending Unavailable AICHHOLZ, CHART COLLECTOR [place]UVIA Admitting Unavailable AICHHOLZ, CHART COLLECTOR [place]UVIA Attending Unavailable AICHHOLZ, CHART COLLECTOR [place] Consulting Unavailable AICHHOLZ, CHART COLLECTOR [place]UVIA Primary Care Unavailable Unavailable Primary Care Provider Unavailabl e Unallocated, [place] Provider Primary Care Provider MD Nils Sarkar Attending Provider NO FAMILY, PHYSICIAN Primary Care Provider Unava ilable NILS SARKAR Attending Unavailable NILS SARKAR Attending Unavailable NILS SARKAR Attending Unavailable NILS SARKAR Attending Unavailable NO FAMILY, PHYSICIAN Primary Care Provider Unava ilable DO Newton Carter Attending Provider [phone] NO FAMILY, PHYSICIAN Primary Care Unavailable Nils Sarkar Admitting Unavailable Nils Sarkar Attending Unavailable NO FAMILY, PHYSICIAN Primary Care Unavailable Nils Sarkar Admitting Unavailable Nils Sarkar Attending Unavailable Newton Carter Admitting Unavailable Newton Carter Attending Unavailable NO FAMILY, PHYSICIAN Primary Care Unavailable Medications Current Medications Medication Drug Class(es) Dates Sig (Normalized) Sig (Original) doxycycline hyclate 100 mg oral tablet (3 sources) Tetracycline-class Drug Start: 04-24-2023 take 100 mg by mouth twice daily Doxycycline Hyclate Active 100 MG PO Twice daily April 24, 2023 1:00am ibuprofen 800 mg oral tablet (3 sources) Nonsteroidal Anti-inflammatory Drug Start: 04-24-2023 take 800 mg by mouth every six hours Ibuprofen Active 800 MG PO Every 6 hours April 24, 2023 1:00am ondansetron 4 mg oral tablet (2 sources) [...] COND 3RD TRI] Onset: 09-06-2020 Episodic Other female genital disorders (2 sources) Vaginal bleeding; Translations: [Abnormal uterine and vaginal [...] WEEKS GESTATION OF ] Onset: 08-24-2020 Episodic Unclassified (1 source) CONTACT W/AND (SUSP) EXPOS COVID-19; Translations: [CONTACT W/AND (SUSP) EXPOS COVID-19] Onset: 10-05-2020 Past or Other Problems Problem Classification Problem Date Documented Da te Episodic/Chronic Deficiency and other anemia (4 sources) Anemia, unspecified; Translations: [ANEMIA UNSPECIFIED] Onset: 12-17-2019 Episodic Other complications of (3 sources) Missed miscarriage; Translations: [Missed ] Onset: 04-24-2023 04-20-2023 Episodic Spontaneous (1 source) Delayed or excessive hemorrhage following incomplete spontaneous ; Translations: [Delayed or excessive hemorrhage following incomplete spontaneous ] Onset: 04-29-2023 Episodic Results Test Name Value Interpretation Reference Range Facility [facility] 11-13-2023 L Specimen: [id number] Received: 11/16/23 Status: RUBINA Sharpe Num: [id number] Spec Type: Surgical Subm Dr: Newton Carter Tissues: A Products of Conception - Spontaneous or Missed (POC MOLAR Procedures: HE/3, Gross/Micro L4 Age/ Patient Sex Location Account Attending Physician Sarah Arce 23/F [id number] Newton Carter SPEC NUM: [id number] RECD: 11/16/23 STATUS: RUBINA JACKY NUM: [id number] MARY: 11/13/[address]: Newton Carter ENTERED: 11/16/[address] [facility] [address]: Myriam,Lab SPEC TYPE: Surgical DEPT: TOBY WOOD ENTERED BY: [id number] RECV BY: [id number] ORDERED: HE/3, Gross/Micro L4 ORDERED: HE/3, Gross/Micro L4 Pathological Diagnosis Uterine content, suction D C: -Multiple clusters of apparently markedly degenerated chorionic villi, compatible with missed , also demonstrating patchy intermediate sized villi with occasional mild scalloping contour and central cistern degeneration, and occasional trophoblastic inclusions without obvious nucleated RBC, but with occasional small intervening surrounding foci of atypical trophoblastic proliferation, 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 Note: -The lack of the complete circumferential trophoblastic proliferation, or obvious canalicular vascular pattern or significant apoptotic debris within the large degenerated villous stroma, also supporting above interpretation, and against the designation of the complete mole Clinical Information Molar Specimen: [id number] Received: 11/16/23 Status: RUBINA Sharpe Num: [id number] Spec Type: Surgical Subm Dr: Newton Carter Tissues: A Products of Conception - Spontaneous or Missed (POC MOLAR Procedures: HE/3, Gross/Micro L4 Patient: Sarah Arce [id number] (Continued) Specimen: [id number] Received: 11/16/23 (Continued) Signed (signature on file) Antonia Camarena MD 11/21/23 1057 Specimen: [id number] Received: 11/16/23 Status: RUBINA Sharpe Num: [id number] Spec Type: Surgical Subm Dr: Newton Carter Tissues: A Products of Conception - Spontaneous or Missed (POC MOLAR Procedures: , Gross/Micro L4 Patient: Sarah Arce [id number] (Continued) Specimen: [id number] Received: 11/16/23 (Continued) Gross Description The specimen was received in formalin with the patient's name and products of conception and consists of multiple jasmine-pink hemorrhagic soft tissue fragments measuring 12.0 x 11.0 x 1.5 cm in aggregate. Multiple cystic structures are identified ranging in size from 0.1 to 0.5 cm. The cysts are filled with a clear fluid. Resident Care Provider sections of the cystic structures are submitted in cassettes A1-A3 DM Microscopic Description Microscopic examinations are performed supporting the above interpretation CPT Codes 51912 Specimen: [id number] Received: 11/16/23 Status: RUBINA Sharpe Num: [id number] Spec Type: Surgical Subm Dr: Newton Carter Tissues: A Products of Conception - Spontaneous or Missed (POC MOLAR Procedures: HE/3, Gross/Micro L4 Patient: Sarah Arce [id number] (Continued) Signed (signature on file) Antonia Camarena MD 11/21/23 1057 Normal [facility] Automated basophil %Ordered By: CHUCK Sarkar on 04-30-2023 Basophils/100 WBC (Bld) 0.7 % Normal . [facility] Comment on above: Performed By: #### C SINDI, HCGQNT #### [address] Automated basophil countOrde red By: CHUCK Sarkar on 04-30-2023 Basophils (Bld) [#/Vol] 0.1 10*3/uL Normal 0.0-0.2 [facility] Comment on above: Result Comment: PERF ORMED BY: [place] [address] PATHOLOGIST SHANK THREADER CHUY PALOMO M.D. Performed By: #### C SINDI, HCGQNT #### [address] Automated blood monocyte cou ntOrdered By: CHUCK Sarkar on 04-30-2023 Monocytes (Bld) [#/Vol] 0.5 10*3/uL Normal 0.0-0.8 [facility] Comment on above: Performed By: #### C SINDI HCGQNT #### [address] Automated eosinophil %Ordere d By: CHUCK Sarkar on 04-30-2023 Eosinophils/100 WBC (Bld) 1.3 % Normal . [facility] Comment on above: Performed By: #### C SINDI, HCGQNT #### [address] Automated eosinophil countOr dered By: CHUCK Sarkar on 04-30-2023 Eosinophils (Bld) [#/Vol] 0.1 10*3/uL Normal 0.0-0.45 [facility] Comment on above: Performed By: #### C SINDI, HCGQNT #### [address] Automated monocyte %Ordered By: CHUCK Sarkar on 04-30-2023 Monocytes/100 WBC (Bld) 6.3 % Normal . [facility] Comment on above: Performed By: #### C BC, HCGQNT #### [facility] [address] Automated neutrophil %Ordere d By: CHUCK Sarkar on 04-30-2023 Neutrophils/100 WBC (Bld) 63.0 % Normal . [facility] Comment on above: Performed By: #### C BC, HCGQNT #### [facility] [address] Choriogonadotropin.beta subu nit [Units/volume] in Serum or PlasmaOrdered By: SHANNON Sarkar on 04-30-2023 HCG.beta subunit Qn 2358.00 m[IU]/mL [facility] Comment on above: Approximate Approxim ate hCG Gestational Age Range (mIU/ml) (weeks)0.2-1 5-50 1-2 50-500 2-3 100-5,000 3-4 500-10,000 4-5 1,000-50,000 5-6 10,000-100,000 6-8 15,000-200,000 8-12 10,000-100,000 Complete Blood Count Auto Di ffon 04-30-2023 Mean Corpuscular HGB Conc 34.7 g/dL Normal 32.0-35.0 [facility] Comment on above: Performed By: #### C BC, HCGQNT #### [address] NRBC% 0.1 /100{WBC} Normal 0-0.5 [facility] Comment on above: Performed By: #### C BC, HCGQNT #### [facility] [address] Erythrocyte distribution wid th [Ratio] by Automated countOrdered By: CHUCK Sarkar on 04-30-2023 Erythrocyte distribution width (RBC) [Ratio] 14.1 % Normal 11.9-15.3 [facility] Comment on above: Performed By: #### C BC, HCGQNT #### [address] Erythrocytes [#/volume] in B lood by Automated countOrdered By: CHUCK Sarkar on 04-30-2023 RBC (Bld) [#/Vol] 4.40 10*6/uL Normal 3.60-5.00 [facility] Comment on above: Performed By: #### C BC, HCGQNT #### [address] HCG,Quantitativeon HCG,Quantitative 2358.00 m[iU]/mL Normal [facility] Comment on above: Result Comment: Appr oximate Approximate hCG Gestational Age Range (mIU/ml) (weeks) 0.2-1 5-50 1-2 50-500 2-3 100-5,000 3-4 500-10,000 4-5 1,000-50,000 5-6 10,000-100,000 6-8 15,000-200,000 8-12 10,000-100,000 PERFORMED BY: [place] [address] PATHOLOGIST SHANK THREADER CHUY PALOMO M.D. Performed By: #### C BC, HCGQNT #### [address] Hematocrit [Volume Fraction] of Blood by Automated countOrdered By: CHUCK Sarkar on 04-30-2023 Hematocrit (Bld) [Volume fraction] 35.3 % Normal 34.0-46.4 [facility] Comment on above: Performed By: #### C BC, HCGQNT #### [address] Hemoglobin [Mass/volume] in BloodOrdered By: CHUCK Sarkar on 04-30-2023 Hemoglobin (Bld) [Mass/Vol] 12.2 g/dL Normal 11.8-15.4 [facility] Comment on above: Performed By: #### C BC, HCGQNT #### [place] [address] [facility] 04-30-2023 L Specimen: [id number] Received: 04/30/23 Status: RUBINA Sharpe Num: [id number] Spec Type: Surgical Subm Dr: CHUCK Astorga Tissues: A Products of Conception - Spontaneous or Missed (PRODUCTS OF CONCEPT Procedures: HE/3, Gross/Micro L4 Age/ Patient Sex Location Account Attending Physician Sarah Arce 23/F N3 [id number] CHUCK Astorga SPEC NUM: [id number] RECD: 04/30/23 STATUS: RUBINA SHARPE NUM: [id number] MARY: 04/30/23- SUBM DR: CHUCK Astorga ENTERED: 04/30/[address] [facility] [address]: SPEC TYPE: Surgical DEPT: S ORDERED: [...] is tentatively identified. tissue is not identified. Resident Care Provider sections focused on potential villi. Resident Care Provider sections are submitted in three cassettes labeled A1-A3. CPT Codes 05740 Specimen: [id number] Received: 04/30/23 Status: RUBINA Sharpe Num: [id number] Spec Type: Surgical Subm Dr: CHUCK Astorga Tissues: A Products of Conception - Spontaneous or Missed (PRODUCTS OF CONCEPT Procedures: HE/3, Gross/Micro L4 Patient: Sarah Arce [id number] (Continued) Signed (signature on file) Tavia Abad MD 05/05/23 2315 Normal [facility] Leukocytes [#/volume] correc bridget for nucleated erythrocytes in Blood by Automated counOrdered By: CHUCK Sarkar on 04-30-2023 WBC corrected for nucl RBC Auto (Bld) [#/Vol] 8.4 10*3/uL 3.8-11.6 [facility] Leukocytes [#/volume] in Blo od by Automated countOrdered By: CHUCK Sarkar on 04-30-2023 WBC (Bld) [#/Vol] 8.4 10*3/uL Normal 3.8-11.6 [facility] Comment on above: Performed By: #### C BC, HCGQNT #### [address] Lymphocytes [#/volume] in Bl ood by Automated countOrdered By: CHUCK Sarkar on 04-30-2023 Lymphocytes (Bld) [#/Vol] 2.4 10*3/uL Normal 1.00-4.8 [facility] Comment on above: Performed By: #### C BC, HCGQNT #### [address] Lymphocytes/100 leukocytes i n Blood by Automated countOrdered By: CHUCK Sarkar on 04-30-2023 Lymphocytes/100 WBC (Bld) 28.7 % Normal . [facility] Comment on above: Performed By: #### C BC, HCGQNT #### [address] MCH [Entitic mass] by Automa bridget countOrdered By: CHUCK Sarkar on 04-30-2023 MCH (RBC) [Entitic mass] 27.8 pg Normal 24.7-34.3 [facility] Comment on above: Performed By: #### C BC, HCGQNT #### [address] MCHC Auto (RBC) [Mass/Vol]Or dered By: CHUCK Sarkar on 04-30-2023 MCHC (RBC) [Mass/Vol] 34.7 g/dL 32.0-35.0 [facility] MCV [Entitic volume] by Auto mated countOrdered By: CHUCK Sarkar on 04-30-2023 MCV (RBC) [Entitic vol] 80.2 fL Normal 80-100 [facility] Comment on above: Performed By: #### C BC, HCGQNT #### [address] Neutrophils [#/volume] in Bl ood by Automated countOrdered By: CHUCK Sarkar on 04-30-2023 Neutrophils (Bld) [#/Vol] 5.3 10*3/uL Normal 1.8-7.7 [facility] Comment on above: Performed By: #### C BC, HCGQNT #### [facility] [address] [place] [address] Nucleated erythrocytes [Pres ence] in Blood by Automated countOrdered By: CHUCK Sarkar on 04-30-2023 Nucleated RBC Auto Ql (Bld) 0.1 /100{WBC} 0-0.5 [facility] Platelet mean volume [Entiti c volume] in Blood by Automated countOrdered By: SHANNON Sarkar on 04-30-2023 Platelet mean volume (Bld) [Entitic vol] 6.7 fL Normal 6.3-10.7 [facility] Comment on above: Performed By: #### C BC, HCGQNT #### [facility] [address] [place] [address] Platelets [#/volume] in Bloo d by Automated countOrdered By: CHUCK Sarkar on 04-30-2023 Platelets (Bld) [#/Vol] 317 10*3/uL Normal 150-450 [facility] Comment on above: Performed By: #### C BC, HCGQNT #### [address] US transvaginalon 04-30-2023 US transvaginal [facility] [place] [address] Ultrasound Report Signed Patient: Sarah Arce MR#: [id number] : 2000 Acct:[id number] Age/Sex: 23 / F ADM Date: 04/29/23 Loc: Room: [address] [place] [address] Type: REG CLI Attending Dr: Nils Sarkar MD Ordering Provider: CHUCK Astorga Date of Service: 04/30/23 US/US pelvic complete: D and C scheduled ([id number]) US/US transvaginal: PRODUCTS OF CONCEPTION WITH PRIOR [...] Usama Peña M.D.04/30/2023 9:37 AM Dictation Location: [place] [address] Tech: Anca Horn Transcribed By: [facility] 04/30/23936 Dictated By: Usama Peña DO 04/30/2333 Signed By: 04/30/23936 Normal [facility] ABO/Rh Retypeon 04-29-2023 ABO/RH Recheck Result Positive Normal [facility] Comment on above: Result Comment: PERF ORMED BY: [place] [address] PATHOLOGIST SHANK THREADER CHUY PALOMO M.D. Complete Blood Count Auto Di ffon 04-29-2023 Basophils (Bld) [#/Vol] 0.0 10*3/uL Normal 0.0-0.2 [facility] Comment on above: Result Comment: PERF ORMED BY: [place] [address] PATHOLOGIST SHANK THREADER CHUY PALOMO M.D. Performed By: #### H CGQNT, CBC #### [facility] [address] [place] [address] [place] Basophils/100 WBC (Bld) 0.3 % Normal . [facility] Comment on above: Performed By: #### H CGQNT, CBC #### [facility] [address] [place] [address] [place] Eosinophils (Bld) [#/Vol] 0.2 10*3/uL Normal 0.0-0.45 [facility] Comment on above: Performed By: #### H CGQNT, CBC #### [facility] [address] [place] [address] [place] Eosinophils/100 WBC (Bld) 1.1 % Normal . [facility] Comment on above: Performed By: #### H CGQNT, CBC #### [address] Erythrocyte distribution width (RBC) [Ratio] 13.9 % Normal 11.9-15.3 [facility] Comment on above: Performed By: #### H CGQNT, CBC #### [address] Hematocrit (Bld) [Volume fraction] 39.8 % Normal 34.0-46.4 [facility] Comment on above: Performed By: #### H CGQNT, CBC #### [address] Hemoglobin (Bld) [Mass/Vol] 13.3 g/dL Normal 11.8-15.4 [facility] Comment on above: Performed By: #### H CGQNT, CBC #### [address] Lymphocytes (Bld) [#/Vol] 2.3 10*3/uL Normal 1.00-4.8 [facility] Comment on above: Performed By: #### H CGQNT, CBC #### [address] Lymphocytes/100 WBC (Bld) 17.0 % Normal . [facility] Comment on above: Performed By: #### H CGQNT, CBC #### [address] MCH (RBC) [Entitic mass] 27.0 pg Normal 24.7-34.3 [facility] Comment on above: Performed By: #### H CGQNT, CBC #### [address] MCV (RBC) [Entitic vol] 80.8 fL Normal 80-100 [facility] Comment on above: Performed By: #### H CGQNT, CBC #### [address] Mean Corpuscular HGB Conc 33.5 g/dL Normal 32.0-35.0 [facility] Comment on above: Performed By: #### H CGQNT, CBC #### [facility] [address] [place] [address] [place] Monocytes (Bld) [#/Vol] 0.5 10*3/uL Normal 0.0-0.8 [facility] Comment on above: Performed By: #### H CGQNT, CBC #### [facility] [address] [place] [address] [place] Monocytes/100 WBC (Bld) 4.0 % Normal . [facility] Comment on above: Performed By: #### H CGQNT, CBC #### [facility] [address] [place] [address] [place] Neutrophils (Bld) [#/Vol] 10.6 10*3/uL High 1.8-7.7 [facility] Comment on above: Performed By: #### H CGQNT, CBC #### [facility] [address] [place] [address] [place] Neutrophils/100 WBC (Bld) 77.6 % Normal . [facility] Comment on above: Performed By: #### H CGQNT, CBC #### [facility] [address] [place] [address] [place] NRBC% 0.2 /100{WBC} Normal 0-0.5 [facility] Comment on above: Performed By: #### H CGQNT, CBC #### [facility] [address] [place] [address] [place] Platelet mean volume (Bld) [Entitic vol] 7.0 fL Normal 6.3-10.7 [facility] Comment on above: Performed By: #### H CGQNT, CBC #### [facility] [address] [place] [address] [place] Platelets (Bld) [#/Vol] 369 10*3/uL Normal 150-450 [facility] Comment on above: Performed By: #### H CGQNT, CBC #### [facility] [address] [place] [address] [place] RBC (Bld) [#/Vol] 4.93 10*6/uL Normal 3.60-5.00 [facility] Comment on above: Performed By: #### H CGQNT, CBC #### [address] WBC (Bld) [#/Vol] 13.6 10*3/uL High 3.8-11.6 [facility] Comment on above: Performed By: #### H CGQNT, CBC #### [address] HCG,Quantitativeon 4 HCG,Quantitative 3230.00 m[iU]/mL Normal [facility] Comment on above: Result Comment: Appr oximate Approximate hCG Gestational Age Range (mIU/ml) (weeks) 0.2-1 5-50 1-2 50-500 2-3 100-5,000 3-4 500-10,000 4-5 1,000-50,000 5-6 10,000-100,000 6-8 15,000-200,000 8-12 10,000-100,000 PERFORMED BY: [place] [address] PATHOLOGIST SHANK THREADER CHUY PALOMO M.D. Performed By: #### H CGQNT, CBC #### [address] Type and Screenon 04-29-2023 ABO and Rh group Nom (Bld) Blood group A Rh(D) positive Normal [facility] Leif 04-24-2023 L Specimen: [id number] Received: 04/24/23 Status: SOUT Req Num: [id number] Spec Type: Surgical Subm Dr: Nils Sarkar MD-NOMS Tissues: A Products of Conception - Spontaneous or Missed (POC) Procedures: HE/3, Gross/Micro L4 Age/ Patient Sex Location Account Attending Physician Sarah Arce 23/F [place] [id number] Nils Sarkar MD-NOMS SPEC NUM: [id number] RECD: 04/24/23 STATUS: SOUT REQ NUM: [id number] MARY: 04/24/23- SUBM DR: Nils Sarkar MD-ADANS ENTERED: 04/24/[address] [facility] [address]: SPEC TYPE: Surgical DEPT: S ENTERED BY: [id number] RECV BY: [id number] ORDERED: HE/3, Gross/Micro L4 ORDERED: HE3, Gross/Micro L4 Pathological Diagnosis Products Of Conception: [...] foot length of 0.7 cm from heel-to-toe. Resident Care Provider sections are submitted in 3 cassettes as follows: A1-A2 - Villous tissue A3 - tissue CPT Codes 02918 Specimen: [id number] Received: 04/24/23 Status: RUBINA Sharpe Num: [id number] Spec Type: Surgical Subm Dr: Nils Sarkar MD-JODEE Tissues: A Products of Conception - Spontaneous or Missed (POC) Procedures: HE/3, Gross/Micro L4 Patient: Sarah Arce [id number] (Continued) Signed (signature on file) Tavia Abad MD 04/28/23 2321 Normal [facility] CBC AUTO DIFFon 10-02-2020 BASO # 0.0 103/ul Normal 0.0-0.1 [facility] Comment on above: Performed By: #### U MICRO, UACSIND #### [facility] [address] [place] [address] Vandana Indira Basophils/100 WBC (Bld) 0.1 % Critically low 0.2-2.0 [facility] Comment on above: Performed By: #### U MICRO, UACSIND #### [facility] [address] [place] [address] Vandana Indira EO # 0.0 103/ul Normal 0.0-0.7 [facility] Comment on above: Performed By: #### U MICRO, UACSIND #### [facility] [address] [place] [id number] Vandana Indira Eosinophils/100 WBC (Bld) 0.0 % Critically low 0.9-7.0 [facility] Comment on above: Performed By: #### U MICRO, UACSIND #### [facility] [address] [place] [id number] Vandana Indira Erythrocyte distribution width (RBC) [Ratio] 15.9 % Critically high 11.0-15.0 [facility] Comment on above: Performed By: #### U MICRO, UACSIND #### [facility] [address] [place] [address] Vandana Indira Hematocrit (Bld) [Volume fraction] 33.3 % Critically low 36.0-48.0 [facility] Comment on above: Performed By: #### U MICRO, UACSIND #### [facility] [address] [place] [address] Vandana Indira Hemoglobin (Bld) [Mass/Vol] 11.2 g/dL Critically low 12.0-16.0 [facility] Comment on above: Performed By: #### U MICRO, UACSIND #### [facility] [address] [place] [address] Vandana Indira IG # 0.07 10e3/ul Critically high 0.00-0.03 [facility] Comment on above: Performed By: #### U MICRO, UACSIND #### [facility] [address] [place] [address] Vandana Indira IG % 0.4 % Normal 0.0-0.5 [facility] Comment on above: Performed By: #### U MICRO, UACSIND #### [facility] [address] [place] [address] Vandana Indira LYMPH # 1.9 103/ul Normal 1.2-3.8 [facility] Comment on above: Performed By: #### U MICRO, UACSIND #### [facility] [address] [place] [address] Vandana Jacobson Lymphocytes/100 WBC (Bld) 11.4 % Critically low 20.5-60.0 [facility] Comment on above: Performed By: #### U MICRO, UACSIND #### [facility] [address] [place] [address] Vandanadave Jacobson MANUAL DIFF REQ NO Normal [facility] Comment on above: Performed By: #### U MICRO, UACSIND #### [facility] [address] [place] [address] Vandana Indira MCH (RBC) [Entitic mass] 27.7 pg Normal 26.7-34.0 [facility] Comment on above: Performed By: #### U MICRO, UACSIND #### [facility] [address] [address] Vandana Jacobson MCHC (RBC) [Mass/Vol] 33.6 g/dL Normal 29.9-35.2 [facility] Comment on above: Performed By: #### U MICRO, UACSIND #### [facility] [address] [place] [address] Vandana Lien MCV (RBC) [Entitic vol] 82.4 fL Normal 81.0-99.0 [facility] Comment on above: Performed By: #### U MICRO, UACSIND #### [facility] [address] [place] [address] Vandana Jacobson MONO # 1.0 103/ul Critically high 0.3-0.8 [facility] Comment on above: Performed By: #### U MICRO, UACSIND #### [facility] [address] [place] [address] Vandanadave Jacobson Monocytes/100 WBC (Bld) 6.3 % Normal 1.7-12.0 [facility] Comment on above: Performed By: #### U MICRO, UACSIND #### [facility] [address] [place] [address] Vandana Jacobson NEUT # 13.4 103/ul Critically high 1.4-6.5 [facility] Comment on above: Performed By: #### U MICRO, UACSIND #### [facility] [address] [place] [address] Vandana Jacobson Neutrophils/100 WBC (Bld) 81.8 % Critically high 43.0-75.0 [facility] Comment on above: Performed By: #### U MICRO, UACSIND #### [facility] [address] [place] [address] Vandana Jacobson Platelet mean volume (Bld) [Entitic vol] 10.3 fL Normal 9.5-13.5 [facility] Comment on above: Performed By: #### U MICRO, UACSIND #### [facility] [address] [place] [address] Vandana Jacobson PLT 202 103/ul Normal 150-450 [facility] Comment on above: Performed By: #### U MICRO, UACSIND #### [facility] [address], [place] [address] Vandana Jacobson RBC 4.04 106/ul Critically low 4.20-5.40 [facility] Comment on above: Performed By: #### U MICRO, UACSIND #### [facility] [address], [place] [address] Vandana Jacobson WBC 16.4 103/ul Critically high 4.0-11.0 [facility] Comment on above: Performed By: #### U MICRO, UACSIND #### [facility] [address], [place] [address] Vandana Jacobson ASYMPTOMATIC COVID-19 ANTIGE Non 10-01-2020 EUA Statement SEE BELOW Normal [facility] Comment on above: Result Comment: This [...] sooner. Performed By: #### C VDAGA #### [facility] [address], [place] [address] Vandana Jacobson SARS-CoV-2 (COVID-19) RNA RAMA+probe Ql (Unsp spec) Negative Normal NEGATIVE [facility] Comment on above: Result Comment: Nega tive results are presumptive. They do not preclude infection and should not be used as the sole basis for treatment decisions. Additional confirmatory testing by a molecular method should be considered. Performed By: #### C VDAGA #### [facility] [address], [place] [address] Vandana Indira CBC AUTO DIFFon 10-01-2020 BASO # 0.0 103/ul Normal 0.0-0.1 [facility] Comment on above: Performed By: #### D RUGRPD #### [facility] [address] [id number] Vandana Indira Basophils/100 WBC (Bld) 0.1 % Critically low 0.2-2.0 [facility] Comment on above: Performed By: #### D RUGRPD #### [facility] [address] [id number] Vandana Indira EO # 0.0 103/ul Normal 0.0-0.7 [facility] Comment on above: Performed By: #### D RUGRPD #### [facility] [address] [place], [place] [id number] Vandana Indira Eosinophils/100 WBC (Bld) 0.1 % Critically low 0.9-7.0 [facility] Comment on above: Performed By: #### D RUGRPD #### [facility] [address] [place], [place] [id number] Vandana Indira Erythrocyte distribution width (RBC) [Ratio] 15.8 % Critically high 11.0-15.0 [facility] Comment on above: Performed By: #### D RUGRPD #### [facility] [address] [place], [place] [phone] Vandana Indira Hematocrit (Bld) [Volume fraction] 40.2 % Normal 36.0-48.0 [facility] Comment on above: Performed By: #### D RUGRPD #### [facility] [address] [place], [place] [phone] Vandana Indira Hemoglobin (Bld) [Mass/Vol] 13.4 g/dL Normal 12.0-16.0 [facility] Comment on above: Performed By: #### D RUGRPD #### [facility] [address] [id number] Vandana Indira IG # 0.04 10e3/ul Critically high 0.00-0.03 [facility] Comment on above: Performed By: #### D RUGRPD #### [facility] [address] [id number] Vandana Indira IG % 0.4 % Normal 0.0-0.5 [facility] Comment on above: Performed By: #### D RUGRPD #### [facility] [address] [id number] Vandana Indira LYMPH # 1.5 103/ul Normal 1.2-3.8 [facility] Comment on above: Performed By: #### D RUGRPD #### [facility] [address] [place], [place] [phone] Vandana Jacobson Lymphocytes/100 WBC (Bld) 14.7 % Critically low 20.5-60.0 [facility] Comment on above: Performed By: #### D RUGRPD #### [facility] [address] [place], [place] [phone] Vandana Jacobson MANUAL DIFF REQ NO Normal [facility] Comment on above: Performed By: #### D RUGRPD #### [facility] [address] [place], [place] [phone] Vandanadave Jacobson MCH (RBC) [Entitic mass] 27.3 pg Normal 26.7-34.0 [facility] Comment on above: Performed By: #### D RUGRPD #### [facility] [address] [place], [place] [phone] Vandana Jacobson MCHC (RBC) [Mass/Vol] 33.3 g/dL Normal 29.9-35.2 [facility] Comment on above: Performed By: #### D RUGRPD #### [facility] [address] [place], [place] [phone] Vandana Jacobson MCV (RBC) [Entitic vol] 82.0 fL Normal 81.0-99.0 [facility] Comment on above: Performed By: #### D RUGRPD #### [facility] [address] [id number] Vandana Indira MONO # 0.5 103/ul Normal 0.3-0.8 [facility] Comment on above: Performed By: #### D RUGRPD #### [facility] [address], [place] [address] Vandanadave Jacobson Monocytes/100 WBC (Bld) 5.2 % Normal 1.7-12.0 [facility] Comment on above: Performed By: #### D RUGRPD #### [facility] [address], [place] [address] Vandanadave Lien NEUT # 8.1 103/ul Critically high 1.4-6.5 [facility] Comment on above: Performed By: #### D RUGRPD #### [facility] [address], [place] [address] Vandana Indira Neutrophils/100 WBC (Bld) 79.5 % Critically high 43.0-75.0 [facility] Comment on above: Performed By: #### Ceci RUGRPD #### [facility] [address] [place] [address] Vandana Jacobson Platelet mean volume (Bld) [Entitic vol] 10.6 fL Normal 9.5-13.5 [facility] Comment on above: Performed By: #### Ceci RUGRPD #### [facility] [address] [place] [address] Vandana Indira PLT 256 103/ul Normal 150-450 [facility] Comment on above: Performed By: #### Ceci RUGRPD #### [facility] [address], [place] [address] Vandana Indira RBC 4.90 106/ul Normal 4.20-5.40 [facility] Comment on above: Performed By: #### D RUGRPD #### [facility] [address] [place] [address] Vandana Indira WBC 10.2 103/ul Normal 4.0-11.0 [facility] Comment on above: Performed By: #### D RUGRPD #### [facility] [address] [place] [address] Vandana Jacobson DRUG SCREEN RAPID (URINE)on 10-01-2020 AMP Negative Normal NEGATIVE [facility] Comment on above: Performed By: #### D JESID #### [facility] [address] [place] [address] Vandana Indira BAR Negative Normal NEGATIVE [facility] Comment on above: Performed By: #### D RUGRPD #### [facility] [address] [place] [address] Vandana Indira BUP Negative Normal NEGATIVE [facility] Comment on above: Performed By: #### D RUGRPD #### [facility] [address] [place] [address] Vandana Indira BZO Negative Normal NEGATIVE [facility] Comment on above: Performed By: #### D RUGRPD #### [facility] [address] [place] [address] Vandana Indira ROLANDA Negative Normal NEGATIVE [facility] Comment on above: Performed By: #### D RUGRPD #### [facility] [address] [place] [address] Vandana Indira CUT-OFFS SEE BELOW Normal [facility] Comment on above: Result Comment: AMP [...] ng/mL Performed By: #### D RUGRPD #### [facility] [address] [place] [address] [facility] C[facility] HEADER DRUG CLASS TEST SYSTEM CUT-OFF CONCENTRATIONS ARE FOLLOWS: Normal [facility] Comment on above: Performed By: #### D RUGRPD #### [facility] [address] [place] [address] Vandana Indira mAMP Negative Normal NEGATIVE [facility] Comment on above: Performed By: #### D RUGRPD #### [facility] [address] [address] Vandana Indira MTD Negative Normal NEGATIVE [facility] Comment on above: Performed By: #### D RUGRPD #### [facility] [address] [id number] Vandana Indira OPI Negative Normal NEGATIVE [facility] Comment on above: Performed By: #### D RUGRPD #### [facility] [address] [address] Vandana Indira OXY Negative Normal NEGATIVE [facility] Comment on above: Performed By: #### D RUGRPD #### [facility] [address] [place] [address] Vandana Indira PCP Negative Normal NEGATIVE [facility] Comment on above: Performed By: #### D RUGRPD #### [facility] [address] [place] [address] Vandana Indira PPX Negative Normal NEGATIVE [facility] Comment on above: Performed By: #### D RUGRPD #### [facility] [address] [place] [address] Vandana Indira TCA Negative Normal NEGATIVE [facility] Comment on above: Performed By: #### D RUGRPD #### [facility] [address] [place] [address] Vandana Indira THC Negative Normal NEGATIVE [facility] Comment on above: Performed By: #### D RUGRPD #### [facility] [address] [place], [place] [phone] Vandana Indira TYPE AND SCREENon 10-01-2020 TYPE AND SCREEN Negative Normal [facility] Comment on above: Performed By: #### D RUGRPD #### [facility] [address] [place] [address] Vandana Indira US PREG GROWTHon 09-12-2020 US PREG GROWTH [...] EFW: 6 lbs. 13 oz., 58% FL/AC: 0.792912 FL/BPD: 0.010783 HC/AC: 0.720586 GESTATIONAL AGE: Age by EDC: 36 weeks 6 days YUE by EDC: 10/04/2020 Age by US: 37 weeks 0 days YUE by US: 10/03/2020 IMPRESSION: Normal interval growth Electronically authenticated by: KECIA LEI Date: 2020-09-12 13:13 Normal [facility] HEMOGLOBINOPATHY FRACTIONATI ON CASCADEon 09-11-2020 HGB A 97.4 % Normal 96.4-98.8 [facility] Comment on above: Performed By: #### U MICRO, UACSIND #### [facility] [address] [place] [address] Vandana Jacobson HGB A2 2.6 % Normal 1.8-3.2 [facility] Comment on above: Performed By: #### U MICRO, UACSIND #### [facility] [address] [place] [address] Vandana Indira HGB F 0.0 % Normal 0.0-2.0 [facility] Comment on above: Performed By: #### U MICRO, UACSIND #### [facility] [address] [address] Vandanadave Jacobson HGB S 0.0 % Normal 0.0 [facility] Comment on above: Performed By: #### U MICRO, UACSIND #### [facility] [address] [place] [address] Vandanadave Jacobson Interpretation: Comment Normal [facility] Comment on above: Result Comment: Norm al hemoglobin present; no hemoglobin variant or thalassemia observed. Performed By: #### U MICRO, UACSIND #### [facility] [address] [place] [address] Vandana Jacobson CBC AUTO DIFFon 07-05-2021 BASO # 0.0 103/ul Normal 0.0-0.1 [facility] Comment on above: Performed By: #### C BC #### [facility] [address] [id number] Vandana Jacobson Basophils/100 WBC (Bld) 0.1 % Critically low 0.2-2.0 [facility] Comment on above: Performed By: #### C BC #### [facility] [address] [address] Vandanadave Jacobson EO # 0.0 103/ul Normal 0.0-0.7 [facility] Comment on above: Performed By: #### C BC #### [facility] [address] [place] [address] Vandana Jacobson Eosinophils/100 WBC (Bld) 0.4 % Critically low 0.9-7.0 [facility] Comment on above: Performed By: #### C BC #### [facility] [address] [place] [address] Vandana Jacobson Erythrocyte distribution width (RBC) [Ratio] 16.0 % Critically high 11.0-15.0 [facility] Comment on above: Performed By: #### C BC #### [facility] [address] [place] [address] Vandana Jacobson Hematocrit (Bld) [Volume fraction] 36.5 % Normal 36.0-48.0 [facility] Comment on above: Performed By: #### C BC #### [facility] [address] [place] [address] Vandanadave Jacobson Hemoglobin (Bld) [Mass/Vol] 12.2 g/dL Normal 12.0-16.0 [facility] Comment on above: Performed By: #### C BC #### [facility] [address] [place], [place] [phone] Vandana Indira IG # 0.07 10e3/ul Critically high 0.00-0.03 [facility] Comment on above: Performed By: #### C BC #### [facility] [address] [place], [place] [phone] Vandana Indira IG % 0.9 % Critically high 0.0-0.5 [facility] Comment on above: Performed By: #### C BC #### [facility] [address] [place] [address] Vandana Indira LYMPH # 1.9 103/ul Normal 1.2-3.8 [facility] Comment on above: Performed By: #### C BC #### [facility] [address] [place] [address] Vandana Indira Lymphocytes/100 WBC (Bld) 23.7 % Normal 20.5-60.0 [facility] Comment on above: Performed By: #### C BC #### [facility] [address] [place] [address] Vandanadave Jacobson MANUAL DIFF REQ NO Normal [facility] Comment on above: Performed By: #### C BC #### [facility] [address] [place] [address] Vandana Indira MCH (RBC) [Entitic mass] 27.4 pg Normal 26.7-34.0 [facility] Comment on above: Performed By: #### C BC #### [facility] [address] [place], [place] [phone] Vandanadave Jacobson MCHC (RBC) [Mass/Vol] 33.4 g/dL Normal 29.9-35.2 [facility] Comment on above: Performed By: #### C BC #### [facility] [address] [place] [address] Vandanadave Lien MCV (RBC) [Entitic vol] 82.0 fL Normal 81.0-99.0 [facility] Comment on above: Performed By: #### C BC #### [facility] [address] [place], [place] [phone] Vandana Indira MONO # 0.7 103/ul Normal 0.3-0.8 [facility] Comment on above: Performed By: #### C BC #### [facility] [address] [place], [place] [phone] Vandana Indira Monocytes/100 WBC (Bld) 8.8 % Normal 1.7-12.0 [facility] Comment on above: Performed By: #### C BC #### [facility] [address] [place] [address] Vandana Jacobson NEUT # 5.3 103/ul Normal 1.4-6.5 [facility] Comment on above: Performed By: #### C BC #### [facility] [address], [place] [address] Vandana Jacobson Neutrophils/100 WBC (Bld) 66.1 % Normal 43.0-75.0 [facility] Comment on above: Performed By: #### C BC #### [facility] [address] [place] [address] Vandana Jacobson Platelet mean volume (Bld) [Entitic vol] 11.6 fL Normal 9.5-13.5 [facility] Comment on above: Performed By: #### C BC #### [facility] [address] [place], [place] [phone] Vandana Indira PLT 221 103/ul Normal 150-450 [facility] Comment on above: Performed By: #### C BC #### [facility] [address] [place] [address] Vandana Indira RBC 4.45 106/ul Normal 4.20-5.40 [facility] Comment on above: Performed By: #### C BC #### [facility] [address] [place], [place] [phone] Vandanadave Lien WBC 8.1 103/ul Normal 4.0-11.0 [facility] Comment on above: Performed By: #### C BC #### [facility] [address] [place] [address] Vandana Jacobson VAGINITIS/VAGINOSIS DNA PROB Miller 09-08-2020 Nichole species Negative Normal Negative [facility] Comment on above: Performed By: #### V AGINT #### [facility] [address] [place], [place] [phone] Vandanadave Jacobson Gardnerella vaginalis Negative Normal Negative [facility] Comment on above: Performed By: #### V AGINT #### [facility] [address] [place] [address] Vandana Jacobson Trichomonas vaginalis Negative Normal Negative [facility] Comment on above: Performed By: #### V AGINT #### [facility] [address] [place], [place] [phone] Vandana Jacobson CHLAMYDIA/GONOCOCCUS RAMA (SW AB/URINE/PAPon 09-07-2020 Chlamydia trachomatis, RAMA Negative Normal Negative [facility] Comment on above: Performed By: #### D RUGRPD #### [facility] [address] [place] [address] Vandana Jacobson Neisseria gonorrhoeae, RAMA Negative Normal Negative [facility] Comment on above: Performed By: #### D RUGRPD #### [facility] [address] [place] [address] Vandana Jacobson GROUP B STREP CULTUREon 07-0 S. agalactiae Ag Ql (Unsp spec) Culture Observations: NEGATIVE FOR GROUP B STREPTOCOCCUS. Normal [facility] Comment on above: Performed By: #### D RUGRPD #### [facility] [address] [place] [address] Vandana Jacobson CULTURE URINEon 08-31-2020 CULTURE URINE Culture Observations: LIGHT GROWTH OF MIXED GENITAL TEDDY. NO POTENTIAL PATHOGENS SEEN. Normal [facility] Comment on above: Performed By: #### D RUGRPD #### [facility] [address] [place], [place] [phone] Vandana Jacobson UA (CLEAN/CATCH) TELEGRAPHIC INSTRUMENT SUPERVISOR/MICRO I F IND.on 08-31-2020 Bilirubin Ql (U) Negative Normal NEGATIVE [facility] Comment on above: Performed By: #### U MICRO, UACSIND #### [facility] [address] [place] [address] Vandana Jacobson Clarity (U) SL CLOUDY Abnormal CLEAR [facility] Comment on above: Performed By: #### U MICRO, UACSIND #### [facility] [address] [place] [address] Vandana Indira Color (U) LT. YELLOW Normal YELLOW [facility] Comment on above: Performed By: #### U MICRO, UACSIND #### [facility] [address] [address] Vandana Indira Glucose Ql (U) Negative Normal NEGATIVE [facility] Comment on above: Performed By: #### U MICRO, UACSIND #### [facility] [address] [place] [address] Vandana Indira Hemoglobin Ql (U) Negative Normal NEGATIVE [facility] Comment on above: Performed By: #### U MICRO, UACSIND #### [facility] [address] [address] Vandana Indira Ketones Ql (U) 15 mg/dl Abnormal NEGATIVE [facility] Comment on above: Performed By: #### U MICRO, UACSIND #### [facility] [address] [place] [address] Vandana Indira LEUKOCYTES SMALL Abnormal NEGATIVE [facility] Comment on above: Performed By: #### U MICRO, UACSIND #### [facility] [address] [place] [address] Vandana Indira Nitrite Ql (U) Negative Normal NEGATIVE [facility] Comment on above: Performed By: #### U MICRO, UACSIND #### [facility] [address] [place] [address] Vandana Indira pH (U) 7.0 [pH] Normal 5-9 [facility] Comment on above: Performed By: #### U MICRO, UACSIND #### [facility] [address] [place] [address] Vandana Indira SPEC GRAVITY 1.015 Normal 1.005-<=1.025 [facility] Comment on above: Performed By: #### U MICRO, UACSIND #### [facility] [address] [place] [address] Vandana Indira UA PROTEIN Negative Normal NEGATIVE/ TRACE [facility] Comment on above: Performed By: #### U MICRO, UACSIND #### [facility] [address] [place] [address] Vandana Indira UR MICRO IND INDICATED Normal [facility] Comment on above: Performed By: #### U MICRO, UACSIND #### [facility] [address] [place] [address] Vandana Indira Urobilinogen Qn (U) 0.2 {Richard'U}/dL Normal 0.2 - 1. 0 [facility] Comment on above: Performed By: #### U MICRO, UACSIND #### [facility] [address] [place] [address] Vandana Indira URINE MICROSCOPIC ONLYon BACTERIA SMALL Abnormal NONE SEEN [facility] Comment on above: Performed By: #### U MICRO, UACSIND #### [facility] [address] [place] [address] Vandana Indira Bacteria identified Cx Nom (U) INDICATED Normal [facility] Comment on above: Performed By: #### U MICRO, UACSIND #### [facility] [address] [place] [address] Vandana Indira CAST NONE SEEN Normal NONE SEEN [facility] Comment on above: Performed By: #### U MICRO, UACSIND #### [facility] [address] [place] [address] Vandana Indira Crystals LM Nom (Urine sed) NONE SEEN Normal NONE SEEN [facility] Comment on above: Performed By: #### U MICRO, UACSIND #### [facility] [address] [place] [address] Vandana Indira Epithelial cells LM Ql (Urine sed) MODERATE Abnormal NONE SEEN /RARE [facility] Comment on above: Performed By: #### U MICRO, UACSIND #### [facility] [address] [place] [address] Vandana Indira MUCOUS NONE SEEN Normal NONE SEEN [facility] Comment on above: Performed By: #### U MICRO, UACSIND #### [facility] [address] [place] [address] Vandana Indira RBC NONE SEEN Abnormal 0-2 [facility] Comment on above: Performed By: #### U MICRO, UACSIND #### [facility] [address] [place] [address] Vandana Indira WBC NONE SEEN Normal NONE SEEN [facility] Comment on above: Performed By: #### U MICRO, UACSIND #### [facility] [address] [place], [place] [id number] Vandana Indira CULTURE URINEon 08-01-2020 CULTURE URINE Culture Observations: LIGHT GROWTH OF MIXED GENITAL TEDDY. NO POTENTIAL PATHOGENS SEEN. Normal [facility] Comment on above: Performed By: #### U RCX #### [facility] [address] [place], [place] [phone] Vandana Indira UA RANDOM W/MICROSCOPICon BACTERIA TRACE Abnormal NONE SEEN [facility] Comment on above: Performed By: #### U AMIC #### [facility] [address] [place] [address] Vandana Indira Bilirubin Ql (U) Negative Normal NEGATIVE [facility] Comment on above: Performed By: #### U AMIC #### [facility] [address] [place], [place] [address] Vandana Indira CAST NONE SEEN Normal NONE SEEN [facility] Comment on above: Performed By: #### U AMIC #### [facility] [address] [place] [address] Vandana Indira Clarity (U) CLEAR Normal CLEAR [facility] Comment on above: Performed By: #### U AMIC #### [facility] [address] [place] [address] Vandana Indira Color (U) LT. YELLOW Normal YELLOW [facility] Comment on above: Performed By: #### U AMIC #### [facility] [address] [place] [address] Vandana Indira Crystals LM Nom (Urine sed) NONE SEEN Normal NONE SEEN [facility] Comment on above: Performed By: #### U AMIC #### [facility] [address] [place], [place] [id number] Vandana Indira Epithelial cells LM Ql (Urine sed) FEW Abnormal NONE SEEN /RARE [facility] Comment on above: Performed By: #### U AMIC #### [facility] [address] [place] [address] Vandana Indira Glucose Ql (U) Negative Normal NEGATIVE [facility] Comment on above: Performed By: #### U AMIC #### [facility] [address] [address] Vandana Indira Hemoglobin Ql (U) Negative Normal NEGATIVE [facility] Comment on above: Performed By: #### U AMIC #### [facility] [address] [address] Vandana Indira Ketones Ql (U) Negative Normal NEGATIVE [facility] Comment on above: Performed By: #### U AMIC #### [facility] [address] [address] Vandana Indira LEUKOCYTES Negative Normal NEGATIVE [facility] Comment on above: Performed By: #### U AMIC #### [facility] [address] [address] Vandana Indira MUCOUS NONE SEEN Normal NONE SEEN [facility] Comment on above: Performed By: #### U AMIC #### [facility] [address] [place] [address] Vandana Indira Nitrite Ql (U) Negative Normal NEGATIVE [facility] Comment on above: Performed By: #### U AMIC #### [facility] [address] [address] Vandana Indira pH (U) 7.5 [pH] Normal 5-9 [facility] Comment on above: Performed By: #### U AMIC #### [facility] [address] [place] [address] Vandana Indira RBC 0-2 Normal 0-2 [facility] Comment on above: Performed By: #### U AMIC #### [facility] [address] [place] [address] Vandana Indira SPEC GRAVITY 1.015 Normal 1.005-<=1.025 [facility] Comment on above: Performed By: #### U AMIC #### [facility] [address] [place] [address] Vandana Indira UA PROTEIN Negative Normal NEGATIVE/ TRACE [facility] Comment on above: Performed By: #### U AMIC #### [facility] [address] [place] [address] Vandana Indira Urobilinogen Qn (U) 0.2 {Richard'U}/dL Normal 0.2 - 1. 0 [facility] Comment on above: Performed By: #### U AMIC #### [facility] [address] [place] [address] Vandana Indira WBC 0-2 Abnormal NONE SEEN [facility] Comment on above: Performed By: #### U AMIC #### [facility] [address] [place], [place] [phone] Vandana Indira CBC AUTO DIFFon 12-17-2019 BASO # 0.0 103/ul Normal 0.0-0.1 [facility] Comment on above: Performed By: #### C BC #### [facility] [address] [place] [address] Vandana Indira Basophils/100 WBC (Bld) 0.1 % Critically low 0.2-2.0 [facility] Comment on above: Performed By: #### C BC #### [facility] [address] [place] [address] Vandana Indira EO # 0.1 103/ul Normal 0.0-0.7 [facility] Comment on above: Performed By: #### C BC #### [facility] [address] [place] [address] Vandana Indira Eosinophils/100 WBC (Bld) 0.9 % Normal 0.9-7.0 [facility] Comment on above: Performed By: #### C BC #### [facility] [address] [place] [address] Vandana Indira Erythrocyte distribution width (RBC) [Ratio] 14.3 % Normal 11.0-15.0 [facility] Comment on above: Performed By: #### C BC #### [facility] [address] [place] [address] Vandana Indira Hematocrit (Bld) [Volume fraction] 40.5 % Normal 36.0-48.0 [facility] Comment on above: Performed By: #### C BC #### [facility] [address] [place] [address] Vandana Indira Hemoglobin (Bld) [Mass/Vol] 13.2 g/dL Normal 12.0-16.0 [facility] Comment on above: Performed By: #### C BC #### [facility] [address] [place] [address] Vandanadave Jacobson IG # 0.01 10e3/ul Normal 0.00-0.03 [facility] Comment on above: Performed By: #### C BC #### [facility] [address] [place] [address] Vandana Indira IG % 0.1 % Normal 0.0-0.5 [facility] Comment on above: Performed By: #### C BC #### [facility] [address] [place] [address] Vandanadave Jacobson LYMPH # 2.0 103/ul Normal 1.2-3.8 [facility] Comment on above: Performed By: #### C BC #### [facility] [address] [place] [address] Vandana Jacobson Lymphocytes/100 WBC (Bld) 27.9 % Normal 20.5-60.0 [facility] Comment on above: Performed By: #### C BC #### [facility] [address] [place] [address] Vandana Jaocbson MANUAL DIFF REQ NO Normal [facility] Comment on above: Performed By: #### C BC #### [facility] [address] [place] [address] Vandana Jacobson MCH (RBC) [Entitic mass] 25.7 pg Critically low 26.7-34.0 [facility] Comment on above: Performed By: #### C BC #### [facility] [address] [place] [address] Vandanadave Jacobson MCHC (RBC) [Mass/Vol] 32.6 g/dL Normal 29.9-35.2 [facility] Comment on above: Performed By: #### C BC #### [facility] [address] [place] [address] Vandana Jacobson MCV (RBC) [Entitic vol] 78.9 fL Critically low 81.0-99.0 [facility] Comment on above: Performed By: #### C BC #### [facility] [address] [id number] Vandana Lien MONO # 0.5 103/ul Normal 0.3-0.8 [facility] Comment on above: Performed By: #### C BC #### [facility] [address] [id number] Vandana Lien Monocytes/100 WBC (Bld) 7.0 % Normal 1.7-12.0 [facility] Comment on above: Performed By: #### C BC #### [facility] [address] [id number] Vandana Indira NEUT # 4.5 103/ul Normal 1.4-6.5 [facility] Comment on above: Performed By: #### C BC #### [facility] [address] [place], [place] [phone] Vandana Lien Neutrophils/100 WBC (Bld) 64.0 % Normal 43.0-75.0 [facility] Comment on above: Performed By: #### C BC #### [facility] [address] [id number] Vandana Jacobson Platelet mean volume (Bld) [Entitic vol] 8.9 fL Critically low 9.5-13.5 [facility] Comment on above: Performed By: #### C BC #### [facility] [address] [place], [place] [phone] Vandana Indira PLT 345 103/ul Normal 150-450 [facility] Comment on above: Performed By: #### C BC #### [facility] [address] [phone] Vandana Indira RBC 5.13 106/ul Normal 4.20-5.40 [facility] Comment on above: Performed By: #### C BC #### [facility] [address] [address] Vandana Indira WBC 7.1 103/ul Normal 4.0-11.0 [facility] Comment on above: Performed By: #### C BC #### [facility] [address] [place] [address] Vandana Jacobson FERRITINon 12-17-2019 Ferritin [Mass/Vol] 27.0 ng/mL Normal 6.2-137.0 [facility] Comment on above: Performed By: #### D JUDI #### [facility] [address] [place] [address] Vandana Jacobson IRONon 12-17-2019 Iron [Mass/Vol] 35.0 ug/dL Critically low 37.0-170.0 [facility] Comment on above: Performed By: #### D JUDI #### [facility] [address] [place] [address] Vandana Jacobson PROF 14(COMP METB)on 020 Albumin [Mass/Vol] 3.7 g/dL Normal 3.5-5.0 [facility] Comment on above: Performed By: #### C MP #### [facility] [address] [place], [place] [phone] Vandana Indira Albumin/Globulin [Mass ratio] 0.9 {ratio} Normal [facility] Comment on above: Performed By: #### C MP #### [facility] [address] [place], [place] [phone] Vandana Indira ALP [Catalytic activity/Vol] 82 U/L Normal 38-126 [facility] Comment on above: Performed By: #### C MP #### [facility] [address] [place], [place] [phone] Vandana Indira ALT [Catalytic activity/Vol] 21 U/L Normal 9-52 [facility] Comment on above: Performed By: #### C MP #### [facility] [address] [place] [address] Vandana Indira Anion gap [Moles/Vol] 12.5 mmol/L Normal [facility] Comment on above: Performed By: #### C MP #### [facility] [address] [place] [address] Vandana Indira AST [Catalytic activity/Vol] 15 U/L Normal 14-36 [facility] Comment on above: Performed By: #### C MP #### [facility] [address] [address] Vandana Indira Bilirubin [Mass/Vol] 0.3 mg/dL Normal 0.2-1.3 [facility] Comment on above: Performed By: #### C MP #### [facility] [address] [phone] Vandana Indira Calcium [Mass/Vol] 9.5 mg/dL Normal 8.4-10.2 [facility] Comment on above: Performed By: #### C MP #### [facility] [address] [address] Vandana Indira Chloride [Moles/Vol] 104 mmol/L Normal 98-107 [facility] Comment on above: Performed By: #### C MP #### [facility] [address] [place] [address] Vandana Indira CO2 [Moles/Vol] 28.4 mmol/L Normal 22.0-30.0 [facility] Comment on above: Performed By: #### C MP #### [facility] [address] [place], [place] [phone] Vandana Indira Creatinine [Mass/Vol] 0.69 mg/dL Normal 0.52-1.04 [facility] Comment on above: Performed By: #### C MP #### [facility] [address] [place], [place] [phone] Vandana Indira EGFR-AF BURMESE >60 Normal >=60 [facility] Comment on above: Performed By: #### C MP #### [facility] [address] [phone] Vandana Indira EGFR-NON AF BURMESE >60 Normal >=60 [facility] Comment on above: Performed By: #### C MP #### [facility] [address] [place], [place] [phone] Vandana Indira Globulin (S) [Mass/Vol] 4.1 g/dL Normal [facility] Comment on above: Performed By: #### C MP #### [facility] [address] [place] [address] Vandana Indira Glucose [Mass/Vol] 94 mg/dL Normal 74-106 [facility] Comment on above: Performed By: #### C MP #### [facility] [address] [phone] Vandana Indira Potassium [Moles/Vol] 3.9 mmol/L Normal 3.4-5.0 [facility] Comment on above: Performed By: #### C MP #### [facility] [address] [phone] Vandana Indira Protein [Mass/Vol] 7.8 g/dL Normal 6.1-8.2 [facility] Comment on above: Performed By: #### C MP #### [facility] [address] [phone] Vandana Indira Sodium [Moles/Vol] 141 mmol/L Normal 137-145 [facility] Comment on above: Performed By: #### C MP #### [facility] [address] [address] Vandana Indira Urea nitrogen [Mass/Vol] 16.0 mg/dL Normal 7.0-17.0 [facility] Comment on above: Performed By: #### C MP #### [facility] [address] [place], [place] [phone] Vandana Indira Urea nitrogen/Creatinine [Mass ratio] 23.2 mg/mg Normal [facility] Comment on above: Performed By: #### C MP #### [facility] [address] [place], [place] [phone] Vandana Indira PROTIMEon 12-17-2019 INR Coag (PPP) [Relative time] 0.97 {INR} Normal [facility] Comment on above: Performed By: #### D RUGRPD #### [facility] [address] [phone] Vandana Indira INR GUIDELINES SEE BELOW Normal [facility] Comment on above: Result Comment: ABHIJIT RED INR: 2.0 - 3.0 CONDITIONS NOT LISTED BELOW 2.5 - 3.5 FOR PROSTHETIC HEART VALVE REPLACEMENT 2.5 - 3.5 RECURRENT THROMBOSIS Performed By: #### D RUGRPD #### [facility] [address] [place], [place] [address] Vandana Jacobson PT Coag (PPP) [Time] 10.3 s Normal 9.0-11.6 [facility] Comment on above: Performed By: #### D RUGRPD #### [facility] [address] [place], [place] [address] Vandana Jacobson PT NORMAL PLEASE NOTE: NORMAL RANGE CHANGE 11-24-2013 DUE TO REAGENT LOT CHANGE Normal [facility] Comment on above: Performed By: #### D RUGRPD #### [facility] [address] [place], [place] [address] Vandana Jacobson PTTon 12-17-2019 aPTT Coag (Bld) [Time] 30.7 s Normal 22.3-36.2 [facility] Comment on above: Performed By: #### D RUGRPD #### [facility] [address] [place], [place] [address] Vandana Indira PTT NORMAL PLEASE NOTE: NORMAL RANGE CHANGE 01-31-2015 DUE TO REAGENT LOT CHANGE Normal [facility] Comment on above: Performed By: #### D RUGRPD #### [facility] [address] [place], [place] [address] Vandana Jacobson Vital Signs Date Time Vital Sign Value Performing Clinician Facility 04-30-2023 10:23-0500 Diastolic blood pressure 84 mm[Hg] PHYSICIAN [facility] 04-30-2023 10:23-0500 Heart rate 67 /min PHYSICIAN NO [facility] 04-30-2023 10:23-0500 Respiratory rate 18 /min PHYSICIAN NO [facility] 04-30-2023 10:23-0500 SaO2% (BldA) [Mass fraction] 99 % PHYSICIAN NO [facility] 04-30-2023 10:23-0500 Systolic blood pressure 130 mm[Hg] PHYSICIAN NO [facility] 04-30-2023 08:53-0500 Body temperature 98.3 [degF] PHYSICIAN NO [facility] 04-30-2023 08:12-0500 Inhaled oxygen flow rate 8 L/min PHYSICIAN NO [facility] 04-30-2023 07:44-0500 Body height 152.4 cm PHYSICIAN NO [facility] 04-30-2023 07:44-0500 Body mass index (BMI) [Ratio] 28.7 kg/m2 PHYSICIAN NO [facility] 04-30-2023 07:44-0500 Body weight 66.67 kg PHYSICIAN NO [facility] 04-24-2023 11:55-0500 Diastolic blood pressure 86 mm[Hg] PHYSICIAN NO [facility] 04-24-2023 11:55-0500 Heart rate 65 /min PHYSICIAN NO [facility] 04-24-2023 11:55-0500 Respiratory rate 16 /min PHYSICIAN NO [facility] 04-24-2023 11:55-0500 SaO2% (BldA) [Mass fraction] 100 % PHYSICIAN NO [facility] 04-24-2023 11:55-0500 Systolic blood pressure 119 mm[Hg] PHYSICIAN NO [facility] 04-24-2023 11:07-0500 Body temperature 98 [degF] PHYSICIAN NO [facility] 04-24-2023 10:42-0500 Inhaled oxygen flow rate 8 L/min PHYSICIAN NO [facility] 04-24-2023 08:52-0500 Body height 152.4 cm PHYSICIAN NO [facility] 04-24-2023 08:52-0500 Body mass index (BMI) [Ratio] 29 kg/m2 PHYSICIAN NO [facility] 04-24-2023 08:52-0500 Body weight 67.58 kg PHYSICIAN NO [facility] 04-20-2023 08:56-0500 Body mass index (BMI) [Ratio] 30.09 kg/m2 Nils Sarkar MD Work Phone: [facility] 04-20-2023 08:56-0500 Body weight 67.59 kg Nils Sarkar MD Work Phone: [facility] 04-20-2023 08:56-0500 Diastolic blood pressure 66 mm[Hg] Nils Sarkar MD Work Phone: [facility] 04-20-2023 08:56-0500 Systolic blood pressure 110 mm[Hg] Nils Sarkar MD Work Phone: [facility] Encounters Encounter Date Encounter Type Care Provider Facility Start: 11-13-2023 End: 11-13-2023 ambulatory PHYSICIAN NO [facility] Work Phone: Start: 11-13-2023 End: 11-13-2023 Departed Referred PHYSICIAN NO [facility] Work Phone: Start: 05-11-2023 End: 05-11-2023 ambulatory NILS SARKAR Not Available Start: 04-29-2023 End: 04-30-2023 Patient encounter procedure PHYSICIAN NO [facility] [place] [address] Medical - O/P Start: 04-29-2023 End: 04-30-2023 ambulatory PHYSICIAN NO [facility] Work Phone: Start: 04-24-2023 End: 04-24-2023 Admission to same day surgery center PHYSICIAN NO [facility] [place] Start: 04-24-2023 End: 04-24-2023 ambulatory PHYSICIAN NO [facility] Work Phone: Start: 04-20-2023 End: 04-20-2023 Office outpatient visit 10 minutes Nils Sarkar MD Work Phone: [facility] Comment on above: Missed ; Bleeding [...] BURK Facility:H1 Start: 09-12-2020 End: 09-13-2020 ambulatory TERENCE JOE Facility:[facility] Start: 09-10-2020 End: 09-11-2020 ambulatory KOFI CURRIE Facility:[facility]1 Start: 09-06-2020 End: 09-06-2020 ambulatory TERENCE JOE Facility:[facility]1 Start: 08-31-2020 End: 08-31-2020 ambulatory TERENCE JOE Facility:[facility]1 Start: 08-01-2020 End: 08-01-2020 ambulatory TERENCE JOE Facility:[facility]1 Start: 12-17-2019 End: 12-18-2019 ambulatory TERENCE JOE Facility:[facility]1 Procedures Date Procedure Procedure Detail Performing Clinician Start: 04-30-2023 Dilation and curetta ge of uterus PHYSICIAN NO FAMILY Start: 04-30-2023 Pelvic echography PHYSI RADHA NO FAMILY Start: 04-30-2023 Transvaginal echography PHYSICIAN NO FAMILY Start: 04-29-2023 Antibody screen PHYSICI AN NO FAMILY Comment on above: Result Comment: PERF ORMED BY: [facility] [address] [place] [id number] PATHOLOGIST SHANK THREADER CHUY PALOMO M.D. Start: 04-24-2023 Dilation and curetta ge of uterus PHYSICIAN NO FAMILY Start: 10-01-2020 Delivery of Products of Conception, External Approach TERENCE JOE Start: 10-01-2020 Repair Vulva, Critical Care Clinical Nurse Specialist al Approach TERENCE JOE Plan of Treatment Date Care Activity Detail Author Start: 04-30-2023 [facility] Start: 04-24-2023 [facility] Start: 04-24-2023 End: 04-24-2023 [facility] Start: 04-20-2023 End: 04-20-2024 hCG, quantitative [facility] Work Phone: Comment on above: Ordered: 04/20/2023 Expected: 04/20/2023 (Approximate), Expires: 04/20/2024 Start: 04-13-2023 End: 04-13-2023 Patient encounter procedure 04/13/2023 9:45 AM EST Office Visit [facility] [address] [place] [address] Nils Sarkar MD [address] [place] [address] [facility] Start: 04-13-2023 End: 04-13-2023 Professional / ancillary services management 04/13/2023 9:30 AM EST Ancillary Procedure [facility] [address] [place] [address] [facility] Basophils [#/volume] in Blood by Automated count [facility] Basophils/100 leukoc ytes in Blood by Automated count [facility] Eosinophils/100 leukocytes in Blood by Automated count [facility] Erythrocyte distribu tion width [Ratio] by Automated count [facility] Erythrocytes [#/volu me] in Blood [facility] Hematocrit [Volume Fraction] of Blood [facility] Hemoglobin [Mass/vol ume] in Blood [facility] Leukocytes [#/volume ] corrected for nucleated erythrocytes in Blood by Automated coun [facility] Leukocytes [#/volume ] in Blood [facility] Lymphocytes [#/volum e] in Blood by Automated count [facility] Lymphocytes/100 leukocytes in Blood by Automated count [facility] MCH [Entitic mass] b y Automated count [facility] MCHC [Mass/volume] b y Automated count [facility] MCV [Entitic volume] by Automated count [facility] Monocytes [#/volume] in Blood by Automated count [facility] Monocytes/100 leukoc ytes in Blood by Automated count [facility] MYCOPLASMA/UREAPLASM A PANEL MYCOPLASMA/UREAPLASMA PANEL Lab Routine Vaginal discharge Ordered: 04/20/2023 [facility] Comment on above: Ordered: 04/20/2023 Neutrophils [#/volum e] in Blood by Automated count [facility] Neutrophils/100 leukocytes in Blood by Automated count [facility] Nucleated erythrocyt es [Presence] in Blood by Automated count [facility] Patient Education [facility] Work Phone: Patient referral [facility] Work Phone: Platelet mean volume [Entitic volume] in Blood by Automated count [facility] Platelets [#/volume] in Blood [facility] Payers Date Payer Category Payer Self-pay 2023 Unknown BCBS BCBS xxxxxx [id number] 2023-Present [phone] [address] [place] [address] [id number] 2023 Unknown [id number] 1998 Unknown [id number] [id number] 1998 Unknown [id number] 2.16.840.1.158151.3.579.2.593 1998 Unknown [id number] 2.16.840.1.782908.3.579.2.593 1998 Unknown [id number] 2.16.840.1.824755.3.579.2.593 1998 Unknown [id number] 2.16.840.1.083778.3.579.2.593 1998 Unknown [id number] 2.16.840.1.382451.3.579.2.593 1998 Unknown [id number] 2.16.840.1.460293.3.579.2.593 1998 Unknown [id number] 2.16.840.1.224539.3.579.2.593 1998 Unknown [id number] 2.16.840.1.539868.3.579.2.593 1998 Unknown [id number] 2.16.840.1.986796.3.579.2.1259 1998 Unknown [id number] 2.16.840.1.344765.3.579.2.1259 1998 Unknown [id number] 2.16.840.1.613763.3.579.2.1259 1998 Unknown [id number] 2.16.840.1.554433.3.579.2.1259 1998 Unknown [id number] 2.16.840.1.757410.3.579.2.1259 1998 Unknown [id number] 2.16.840.1.183235.3.579.2.1259 1959 Unknown [id number] 1959 Unknown [id number] Unknown [id number] 2.16.840.1.429535.3.579.2.531 Unknown [id number] 2.16.840.1.944802.3.579.2.531 Unknown [id number] 2.16.840.1.555733.3.579.2.531 Social History Date Type Detail Facility Start: 08-13-2022 End: 04-30-2023 Tobacco smoking status PAIS Never smoked tobacco [facility] Start: 08-13-2022 Tobacco use and exposure Smokeless tobacco non-user [facility] Start: 04-07-2023 End: 04-20-2023 Alcohol intake Ex-drinker (finding) [facility] Start: 08-13-2022 End: 04-13-2023 History of Social function [facility] Start: 08-13-2022 End: 04-13-2023 Tobacco use panel [facility] Start: 08-13-2022 Alcohol Comment none with [facility] Start: 1998 Sex Assigned At Not on file N [facility] The thought of harmi ng myself has occurred to me Never [facility] Start: 1998 Sex Assigned At Female F [facility] Goals Date Patient Goal Desired Activity /State Functional Status Date Assessment Result Facility 04-29-2023 Functional status Patient at Baseline [facility] Work Phone: Mental Status Date Assessment Result Facility 04-29-2023 Cognitive function Cognitive Sta tus Patient at Baseline [facility] Work Phone: History and physical note 04-30-2023 Note Date & Type Note Facility 04-30-2023 History and physical note Note Date/Time April 29, 2023 10:09pm [facility] [address] [place] [address] [employer] History & Physical Signed Patient: Sarah Arce MR#: [id number] : 2000 Acct:[id number] Age/Sex: 23 / F Adm Date: 4 Loc: Room: [address] [place] [address] Type: REG CLI Attending Dr: Nils Sarkar MD Copies to: NO FAMILY PHYSICIAN Nils Sarkar MD-[facility]~ Date of Service: 04/29/2023 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 FIELD SERVICE TECHNICIAN - HPI History of Present Illness Chief [...] negative unless noted below or in HPI [facility] Medical History (Updated 04/29/23 @ 22:08 [...] 1,000 mls @ 125 mls/hr IV .Q8H [facility] Stop: 04/28/24 16:59 Last Admin: 04/29/23 17:50 Dose: 125 mls/hr Cefazolin Sodium (Ancef) 2 gm in 50 mls @ 100 mls/hr IV Q8H [facility] Last Admin: 04/29/23 17:51 Dose: 100 mls/hr Oxytocin 40 unit/ Lactated (Ringer's) 504 mls @ 150 mls/hr IV .Q3H22M ONE; Protocol Stop: 04/30/23 02:21 Misoprostol (Misoprostol 200 Mcg Tablet) 800 mcg VAGINAL Q4H [facility] Stop: 04/30/23 02:31 HVAC FIELD SERVICE TECHNICIAN - Exam Physical Exam Vital signs: Temp [...] Routine Psychiatric Exam Psychiatric: Present normal affect HVAC FIELD SERVICE TECHNICIAN - Results Laboratory Results - Last 48 hrs. 04/29/23 20:27: Blood Type Recheck A Positive 04/29/23 17:45: HCG, Quant 3230.00 04/29/23 17:31: Corrected WBC 13.6 H, Uncorrected WBC Count 13.6 H, RBC 4.93, Hgb 13.3, Hct 39.8, MCV 80.8, MCH 27.0, MCHC 33.5, RDW 13.9, Plt Count 369, MPV 7.0, Neut % (Auto) 77.6, Lymph % (Auto) 17.0, Ada % (Auto) 4.0, Eos % (Auto) 1.1, Baso % (Auto) 0.3, Nucleat RBC Rel Count 0.2, Neut # (Auto) 10.6 H, Lymph #(Auto) 2.3, Ada # (Auto) 0.5, Eos # (Auto) 0.2, Baso # (Auto) 0.0, Blood Type APositive, Antibody Screen Negative Diagnostic Imaging Comments: 2.1 cm uterine complex with vascularization, essentially unchanged from yesterday HVAC FIELD SERVICE TECHNICIAN - A/P (1) Vaginal bleeding: Plan Failed Cytotec evacuation of uterine tissue Suction D&C D&C Documented By: Nils Sarkar MD-JODEE 04/29/23 22 06 Signed By: <Electronically signed by CHUCK Sarkar> 04/30/23 0702 [facility] Work Phone: History of Present illness Narrative [...] without bleeding or cramping Hcg quant serial and Thursday If levels decline cytotec orally impossible D&C on Thursday documented in this encounter [facility] Evaluation note Note Date & Type Note Facility Evaluation note Diagnosis Missed Bleeding in early Unspecified hemorrhage in early , unspecified as to episode of care Vaginal discharge Leukorrhea, not specified as infective documented in this encounter [facility] Evaluation note Note Date & Type Note Facility Evaluation note No assessment information availa ble [facility] Work Phone: Evaluation note Note Date & Type Note Facility Evaluation note Diagnosis Onset Date Vaginal bleeding acute [facility] Work Phone: Hospital Discharge instructions Note Date & Type Note Facility Hospital Discharge instructions Additional Instructions [employer] Call for heavy bleeding FOLLOW UP Thursday 10 am [facility] Work Phone: Summary Purpose Family History No Family History Records Found Relationship Condition Age at Onset Recorded Date/T prince Not Specified No pertinent family history Unknown Advance Directives No Advanced Directives Records Found Advance Directive Response Recorded Date/ Time Advance Directives No April 5:46pm Advance Directive Response Recorded Date/ Time Advance Directives No April 6:46pm Chief Complaint and Reason for Visit Chief Complaint products of concepti on Chief Complaint products of concepti on bleeding, tissue left from D & C preformed 04/24/23 Reason for Visit Vaginal bleeding Chief Complaint Unknown Additional Source Comments INFORMATION SOURCE (unrecogn ized section and content) DATE CREATED AUTHOR 10/08/2020 [facility] DATE CREATED AUTHOR AUTHOR'S ORGANIZ ATION 10/24/2023 [facility] EPIC DATE CREATED AUTHOR AUTHOR'S ORGANIZ ATION 11/23/2023 [facility] Reason for Visit (unrecogniz ed section and content) Reason Comments Care Care Teams (unrecognized sec tion and content) [employer] Relationship Specialty Start Date End Date Unallocated, Noms Provider [address] [place] [id number] PCP - General Family Medicine 04/13/23 Team [...] April 29, 2023 End: April 30, 2023 Team Status: Inactive Member Role Status Dates PHYSICIAN NO FAMILY Primary Care Provider Active Start: November 13, 2023 End: November 13, 2023 Newton Carter DO Attending Provider Active Start : November 13, 2023 End: November 13, 2023 Goals (unrecognized section and content) Goals may be documented in a n alternate section FOR RECORDS PERTAINING TO PATIENTS WHO ARE [...] BE BASED ON THE PRIMARY CLINICAL RECORDS. [facility] [employer] provides no warranty or guarantee of the accuracy or completeness of information in this document.
[2023-12-01 10:48] LABS: HCG Quantitative 70 mIU/mL
== END 2023-12-01 09:53 | disposition home or self-care (01) ==
LOC: LAB 09:54
PROVIDERS: Visit Provider Obstetrics & Gynecology
DX: N92.6 Irregular menstruation, unspecified (principal)
CPT/HCPCS: 36415; 84702

== ENCOUNTER 2023-12-08 10:55 | Outpatient (OUT) | payer BC, SELFPAY ==
--- OUTSIDE RECORDS SUMMARY | 2023-12-08 11:07 | XMS_ITS | CCD ---
Author Organization [facility] Care Team Providers Care Personnel Security Assistant Name Role Phone AICHHOLZ, WELFARE ADMINISTRATOR [place] Primary Care Unavailable KOFI CURRIE Consulting Unavailable KOFI CURRIE Admitting Unavailable KOFI CURRIE Attending Unavailable AICHHOLZ, WELFARE ADMINISTRATOR [place] Primary Care Unavailable WEST, DR KECIA Devi Consulting Unavailable KOFI CURRIE Attending Unavailable KOFI CURRIE Admitting Unavailable KOFI CURRIE Consulting Unavailable KOFI CURRIE Attending Unavailable [facility] Referring Unavailable AICHHOLZ, WELFARE ADMINISTRATOR [place] Primary Care Unavailable KOFI CURRIE Consulting Unavailable KOFI CURRIE Admitting Unavailable KARASIK, DR STRONG Attending Unavailable AICHHOLZ, WELFARE ADMINISTRATOR [place] Primary Care Unavailable KARASIK, DR STRONG Consulting Unavailable KARASIK, DR STRONG Admitting Unavailable KARASIK, DR STRONG Procedure Practitioner Unava ilable KOFI CURRIE Consulting Unavailable KOFI CURRIE Attending Unavailable AICHHOLZ, WELFARE ADMINISTRATOR [place] Primary Care Unavailable KOFI CURRIE Admitting Unavailable AICHHOLZ, WELFARE ADMINISTRATOR [place] Primary Care Unavailable KARASIK, DR STRONG Consulting Unavailable KARASIK, DR STRONG Admitting Unavailable KARASIK, DR STRONG Attending Unavailable KOFI CURRIE Consulting Unavailable KOFI CURRIE Attending Unavailable AICHHOLZ, WELFARE ADMINISTRATOR [place] Primary Care Unavailable KOFI CURRIE Admitting Unavailable AICHHOLZ, WELFARE ADMINISTRATOR [place] Primary Care Unavailable KOFI CURRIE Consulting Unavailable KOFI CURRIE Admitting Unavailable KOFI CURRIE Attending Unavailable AICHHOLZ, WELFARE ADMINISTRATOR [place] Admitting Unavailable AICHHOLZ, WELFARE ADMINISTRATOR [place] Attending Unavailable AICHHOLZ, WELFARE ADMINISTRATOR [place] Consulting Unavailable AICHHOLZ, WELFARE ADMINISTRATOR [place] Primary Care Unavailable Unavailable Primary Care Provider Unavailabl e Unallocated, [place] Provider Primary Care Provider MD Nils Sarkar Attending Provider NO FAMILY, PHYSICIAN Primary Care Provider Unava ilable NILS SARKAR Attending Unavailable NILS SARKAR Attending Unavailable NILS SARKAR Attending Unavailable NILS SARKAR Attending Unavailable NO FAMILY, PHYSICIAN Primary Care Provider Unava ilable DO Newton Carter Attending Provider NO FAMILY, PHYSICIAN Primary Care Unavailable Nils [...] Test Name Value Interpretation Reference Range Facility [facility] 11-13-2023 L Specimen: [id number] Received: 11/16/23 Status: RUBINA Sharpe Num: [id number] Spec Type: Surgical Subm Dr: Newton Carter Tissues: A Products of Conception - Spontaneous or Missed (POC MOLAR Procedures: HE/3, Gross/Micro L4 Age/ Patient Sex Location Account Attending Physician Sarah Arce 23/F [id number] Newton Carter SPEC NUM: [id number] RECD: 11/16/23 STATUS: RUBINA JACKY NUM: [id number] MARY: 11/13/[address]: Newton Carter ENTERED: 11/16/[address] [facility] [address]: Myriam,Lab SPEC TYPE: Surgical DEPT: TOBY WOOD ENTERED BY: [id number] RECV BY: [id number] ORDERED: HE/3, Gross/Micro L4 ORDERED: HE/3, Gross/Micro [...] the complete mole Clinical Information Molar Specimen: [id number] Received: 11/16/23 Status: RUBINA Sharpe Num: [id number] Spec Type: Surgical Subm Dr: Newton Carter Tissues: A Products of Conception - Spontaneous or Missed (POC MOLAR Procedures: HE/3, Gross/Micro L4 Patient: Sarah Arce [id number] (Continued) Specimen: [id number] Received: 11/16/23 (Continued) Signed (signature on file) Antonia Camarena MD 11/21/23 1057 Specimen: [id number] Received: 11/16/23 Status: RUBINA Sharpe Num: [id number] Spec Type: Surgical Subm Dr: Newton Carter Tissues: A Products of Conception - Spontaneous or Missed (POC MOLAR Procedures: , Gross/Micro L4 Patient: Sarah Arce [id number] (Continued) Specimen: [id number] Received: 11/16/23 (Continued) Gross Description The specimen was received in formalin with the patient's name and products of conception and consists of multiple jasmine-pink hemorrhagic soft tissue fragments measuring 12.0 x 11.0 x 1.5 cm in aggregate. Multiple cystic structures are identified ranging in size from 0.1 to 0.5 cm. The cysts are filled with a clear fluid. Front Desk Lead sections of the cystic structures are submitted in cassettes A1-A3 DM Microscopic Description Microscopic examinations are performed supporting the above interpretation CPT Codes 70470 Specimen: [id number] Received: 11/16/23 Status: RUBINA Sharpe Num: [id number] Spec Type: Surgical Subm Dr: Newton Carter Tissues: A Products of Conception - Spontaneous or Missed (POC MOLAR Procedures: HE/3, Gross/Micro L4 Patient: Sarah Arce [id number] (Continued) Signed (signature on file) Antonia Camarena MD 11/21/23 1057 Normal [facility] Automated basophil %Ordered By: CHUCK Sarkar on 04-30-2023 Basophils/100 WBC (Bld) 0.7 % Normal . [facility] Comment on above: Performed By: #### C SINDI, HCGQNT #### [address] Automated basophil countOrde red By: CHUCK Sarkar on 04-30-2023 Basophils (Bld) [#/Vol] 0.1 10*3/uL Normal 0.0-0.2 [facility] Comment on above: Result Comment: PERF ORMED BY: [place] [address] PATHOLOGIST [employer] DRIVER CHUY PALOMO M.D. Performed By: #### C SINDI, HCGQNT #### [address] Automated blood monocyte cou ntOrdered By: CHUCK Sarkar on 04-30-2023 Monocytes (Bld) [#/Vol] 0.5 10*3/uL Normal 0.0-0.8 [facility] Comment on above: Performed By: #### C SINDI HCGQNT #### [address] Automated eosinophil %Ordere d By: CHUCK Sarkar on 04-30-2023 Eosinophils/100 WBC (Bld) 1.3 % Normal . [facility] Comment on above: Performed By: #### C ISNDI, HCGQNT #### [address] Automated eosinophil countOr dered By: CHUCK Sarkar on 04-30-2023 Eosinophils (Bld) [#/Vol] 0.1 10*3/uL Normal 0.0-0.45 [facility] Comment on above: Performed By: #### C SINDI, HCGQNT #### [address] Automated monocyte %Ordered By: CHUCK Sarkar on 04-30-2023 Monocytes/100 WBC (Bld) 6.3 % Normal . [facility] Comment on above: Performed By: #### C BC, HCGQNT #### [facility] [address] Automated neutrophil %Ordere d By: CHUCK Sarkar on 04-30-2023 Neutrophils/100 WBC (Bld) 63.0 % Normal . [facility] Comment on above: Performed By: #### C BC, HCGQNT #### [facility] [address] Choriogonadotropin.beta subu nit [Units/volume] in Serum or PlasmaOrdered By: SHANNON Sarkar on 04-30-2023 HCG.beta subunit Qn 2358.00 m[IU]/mL [facility] Comment on above: Approximate Approxim ate hCG Gestational Age Range (mIU/ml) (weeks)0.2-1 5-50 1-2 50-500 2-3 100-5,000 3-4 500-10,000 4-5 1,000-50,000 5-6 10,000-100,000 6-8 15,000-200,000 8-12 10,000-100,000 Complete Blood Count Auto Di ffon 04-30-2023 Mean Corpuscular HGB Conc 34.7 g/dL Normal 32.0-35.0 [facility] Comment on above: Performed By: #### C BC, HCGQNT #### [address] NRBC% 0.1 /100{WBC} Normal 0-0.5 [facility] Comment on above: Performed By: #### C BC, HCGQNT #### [facility] [address] Erythrocyte distribution wid th [Ratio] by Automated countOrdered By: CHUCK Sarkar on 04-30-2023 Erythrocyte distribution width (RBC) [Ratio] 14.1 % Normal 11.9-15.3 [facility] Comment on above: Performed By: #### C BC, HCGQNT #### [address] Erythrocytes [#/volume] in B lood by Automated countOrdered By: CHUCK Sarkar on 04-30-2023 RBC (Bld) [#/Vol] 4.40 10*6/uL Normal 3.60-5.00 [facility] Comment on above: Performed By: #### C BC, HCGQNT #### [address] HCG,Quantitativeon HCG,Quantitative 2358.00 m[iU]/mL Normal [facility] Comment on above: Result Comment: Appr oximate Approximate hCG Gestational Age Range (mIU/ml) (weeks) 0.2-1 5-50 1-2 50-500 2-3 100-5,000 3-4 500-10,000 4-5 1,000-50,000 5-6 10,000-100,000 6-8 15,000-200,000 8-12 10,000-100,000 PERFORMED BY: [place] [address] PATHOLOGIST [employer] DR[employer] CHUY PALOMO M.D. Performed By: #### C BC, HCGQNT #### [address] Hematocrit [Volume Fraction] of Blood by Automated countOrdered By: CHUCK Sarkar on 04-30-2023 Hematocrit (Bld) [Volume fraction] 35.3 % Normal 34.0-46.4 [facility] Comment on above: Performed By: #### C BC, HCGQNT #### [address] Hemoglobin [Mass/volume] in BloodOrdered By: CHUCK Sarkar on 04-30-2023 Hemoglobin (Bld) [Mass/Vol] 12.2 g/dL Normal 11.8-15.4 [facility] Comment on above: Performed By: #### C BC, HCGQNT #### [place] [id number] [facility] 04-30-2023 L Specimen: [id number] Received: 04/30/23 Status: RUBINA Sharpe Num: [id number] Spec Type: Surgical Subm Dr: CHUCK Astorga Tissues: A Products of Conception - Spontaneous or Missed (PRODUCTS OF CONCEPT Procedures: HE/3, Gross/Micro L4 Age/ Patient Sex Location Account Attending Physician Sarah Arce 23/F N3 [id number] CHUCK Astorga SPEC NUM: [id number] RECD: 04/30/23 STATUS: RUBINA SHARPE NUM: [id number] MARY: 04/30/23- SUBM DR: CHUCK Astorga ENTERED: 04/30/[address] [facility] [address]: SPEC TYPE: Surgical DEPT: [...] is tentatively identified. tissue is not identified. Front Desk Lead sections focused on potential villi. Front Desk Lead sections are submitted in three cassettes labeled A1-A3. CPT Codes 75453 Specimen: [id number] Received: 04/30/23 Status: RUBINA Sharpe Num: [id number] Spec Type: Surgical Subm Dr: CHUCK Astorga Tissues: A Products of Conception - Spontaneous or Missed (PRODUCTS OF CONCEPT Procedures: HE/3, Gross/Micro L4 Patient: Sarah Arce [id number] (Continued) Signed (signature on file) Tavia Abad MD 05/05/23 2315 Normal [facility] Leukocytes [#/volume] correc bridget for nucleated erythrocytes in Blood by Automated counOrdered By: CHUCK Sarkar on 04-30-2023 WBC corrected for nucl RBC Auto (Bld) [#/Vol] 8.4 10*3/uL 3.8-11.6 [facility] Leukocytes [#/volume] in Blo od by Automated countOrdered By: CHUCK Sarkar on 04-30-2023 WBC (Bld) [#/Vol] 8.4 10*3/uL Normal 3.8-11.6 [facility] Comment on above: Performed By: #### C BC, HCGQNT #### [address] Lymphocytes [#/volume] in Bl ood by Automated countOrdered By: CHUCK Sarkar on 04-30-2023 Lymphocytes (Bld) [#/Vol] 2.4 10*3/uL Normal 1.00-4.8 [facility] Comment on above: Performed By: #### C BC, HCGQNT #### [address] Lymphocytes/100 leukocytes i n Blood by Automated countOrdered By: CHUCK Sarkar on 04-30-2023 Lymphocytes/100 WBC (Bld) 28.7 % Normal . [facility] Comment on above: Performed By: #### C BC, HCGQNT #### [address] MCH [Entitic mass] by Automa bridget countOrdered By: CHUCK Sarkar on 04-30-2023 MCH (RBC) [Entitic mass] 27.8 pg Normal 24.7-34.3 [facility] Comment on above: Performed By: #### C BC, HCGQNT #### [address] MCHC Auto (RBC) [Mass/Vol]Or dered By: CHUCK Sarkar on 04-30-2023 MCHC (RBC) [Mass/Vol] 34.7 g/dL 32.0-35.0 [facility] MCV [Entitic volume] by Auto mated countOrdered By: CHUCK Sarkar on 04-30-2023 MCV (RBC) [Entitic vol] 80.2 fL Normal 80-100 [facility] Comment on above: Performed By: #### C BC, HCGQNT #### [address] Neutrophils [#/volume] in Bl ood by Automated countOrdered By: CHUCK Sarkar on 04-30-2023 Neutrophils (Bld) [#/Vol] 5.3 10*3/uL Normal 1.8-7.7 [facility] Comment on above: Performed By: #### C BC, HCGQNT #### [facility] [address] [place] [address] Nucleated erythrocytes [Pres ence] in Blood by Automated countOrdered By: CHUCK Sarkar on 04-30-2023 Nucleated RBC Auto Ql (Bld) 0.1 /100{WBC} 0-0.5 [facility] Platelet mean volume [Entiti c volume] in Blood by Automated countOrdered By: SHANNON Sarkar on 04-30-2023 Platelet mean volume (Bld) [Entitic vol] 6.7 fL Normal 6.3-10.7 [facility] Comment on above: Performed By: #### C BC, HCGQNT #### [facility] [address] [place] [address] Platelets [#/volume] in Bloo d by Automated countOrdered By: CHUCK Sarkar on 04-30-2023 Platelets (Bld) [#/Vol] 317 10*3/uL Normal 150-450 [facility] Comment on above: Performed By: #### C BC, HCGQNT #### [address] US transvaginalon 04-30-2023 US transvaginal [facility] [place] [place] [address] Ultrasound Report Signed Patient: Sarah Arce MR#: [id number] : 2000 Acct:[id number] Age/Sex: 23 / F ADM Date: 04/29/23 Loc: Room: [address] [place] [address] Type: REG CLI Attending Dr: Nils Sarkar MD Ordering Provider: CHUCK Astorga Date of Service: 04/30/23 US/US pelvic complete: D and C scheduled ([id number]) US/US transvaginal: PRODUCTS OF CONCEPTION WITH PRIOR [...] Usama Peña M.D.04/30/2023 9:37 AM Dictation Location: [place] [address] Tech: Anca Horn Transcribed By: [facility] 04/30/23936 Dictated By: Usama Peña DO 04/30/2333 Signed By: 04/30/23936 Normal [facility] ABO/Rh Retypeon 04-29-2023 ABO/RH Recheck Result Positive Normal [facility] Comment on above: Result Comment: PERF ORMED BY: [place] [address] PATHOLOGIST [employer] DR[employer] CHUY PALOMO M.D. Complete Blood Count Auto Di ffon 04-29-2023 Basophils (Bld) [#/Vol] 0.0 10*3/uL Normal 0.0-0.2 [facility] Comment on above: Result Comment: PERF ORMED BY: [place] [address] PATHOLOGIST [employer] DR[employer] CHUY PALOMO M.D. Performed By: #### H CGQNT, CBC #### [facility] [address] [place] [address] [place] Basophils/100 WBC (Bld) 0.3 % Normal . [facility] Comment on above: Performed By: #### H CGQNT, CBC #### [facility] [address] [place] [address] [place] Eosinophils (Bld) [#/Vol] 0.2 10*3/uL Normal 0.0-0.45 [facility] Comment on above: Performed By: #### H CGQNT, CBC #### [facility] [address] [place] [address] [place] Eosinophils/100 WBC (Bld) 1.1 % Normal . [facility] Comment on above: Performed By: #### H CGQNT, CBC #### [address] Erythrocyte distribution width (RBC) [Ratio] 13.9 % Normal 11.9-15.3 [facility] Comment on above: Performed By: #### H CGQNT, CBC #### [address] Hematocrit (Bld) [Volume fraction] 39.8 % Normal 34.0-46.4 [facility] Comment on above: Performed By: #### H CGQNT, CBC #### [address] Hemoglobin (Bld) [Mass/Vol] 13.3 g/dL Normal 11.8-15.4 [facility] Comment on above: Performed By: #### H CGQNT, CBC #### [address] Lymphocytes (Bld) [#/Vol] 2.3 10*3/uL Normal 1.00-4.8 [facility] Comment on above: Performed By: #### H CGQNT, CBC #### [address] Lymphocytes/100 WBC (Bld) 17.0 % Normal . [facility] Comment on above: Performed By: #### H CGQNT, CBC #### [address] MCH (RBC) [Entitic mass] 27.0 pg Normal 24.7-34.3 [facility] Comment on above: Performed By: #### H CGQNT, CBC #### [address] MCV (RBC) [Entitic vol] 80.8 fL Normal 80-100 [facility] Comment on above: Performed By: #### H CGQNT, CBC #### [address] Mean Corpuscular HGB Conc 33.5 g/dL Normal 32.0-35.0 [facility] Comment on above: Performed By: #### H CGQNT, CBC #### [facility] [address] [place] [address] [place] Monocytes (Bld) [#/Vol] 0.5 10*3/uL Normal 0.0-0.8 [facility] Comment on above: Performed By: #### H CGQNT, CBC #### [facility] [address] [place] [address] [place] Monocytes/100 WBC (Bld) 4.0 % Normal . [facility] Comment on above: Performed By: #### H CGQNT, CBC #### [facility] [address] [place] [address] [place] Neutrophils (Bld) [#/Vol] 10.6 10*3/uL High 1.8-7.7 [facility] Comment on above: Performed By: #### H CGQNT, CBC #### [facility] [address] [place] [address] [place] Neutrophils/100 WBC (Bld) 77.6 % Normal . [facility] Comment on above: Performed By: #### H CGQNT, CBC #### [facility] [address] [place] [address] [place] NRBC% 0.2 /100{WBC} Normal 0-0.5 [facility] Comment on above: Performed By: #### H CGQNT, CBC #### [facility] [address] [place] [address] [place] Platelet mean volume (Bld) [Entitic vol] 7.0 fL Normal 6.3-10.7 [facility] Comment on above: Performed By: #### H CGQNT, CBC #### [facility] [address] [place] [address] [place] Platelets (Bld) [#/Vol] 369 10*3/uL Normal 150-450 [facility] Comment on above: Performed By: #### H CGQNT, CBC #### [facility] [address] [place] [address] [place] RBC (Bld) [#/Vol] 4.93 10*6/uL Normal 3.60-5.00 [facility] Comment on above: Performed By: #### H CGQNT, CBC #### [address] WBC (Bld) [#/Vol] 13.6 10*3/uL High 3.8-11.6 [facility] Comment on above: Performed By: #### H CGQNT, CBC #### [address] HCG,Quantitativeon 4 HCG,Quantitative 3230.00 m[iU]/mL Normal [facility] Comment on above: Result Comment: Appr oximate Approximate hCG Gestational Age Range (mIU/ml) (weeks) 0.2-1 5-50 1-2 50-500 2-3 100-5,000 3-4 500-10,000 4-5 1,000-50,000 5-6 10,000-100,000 6-8 15,000-200,000 8-12 10,000-100,000 PERFORMED BY: [place] [address] PATHOLOGIST [employer] DR[employer] CHUY PALOMO M.D. Performed By: #### H CGQNT, CBC #### [address] Type and Screenon 04-29-2023 ABO and Rh group Nom (Bld) Blood group A Rh(D) positive Normal [facility] Leif 04-24-2023 L Specimen: [id number] Received: 04/24/23 Status: SOUT Req Num: [id number] Spec Type: Surgical Subm Dr: Nils Sarkar MD-NOMS Tissues: A Products of Conception - Spontaneous or Missed (POC) Procedures: HE/3, Gross/Micro L4 Age/ Patient Sex Location Account Attending Physician Sarah Arce 23/F [place] [id number] Nils Sarkar MD-NOMS SPEC NUM: [id number] RECD: 04/24/23 STATUS: SOUT REQ NUM: [id number] MARY: 04/24/23- SUBM DR: Nils Sarkar MD-ADANS ENTERED: 04/24/[address] [facility] [address]: SPEC TYPE: Surgical DEPT: S ENTERED BY: [id number] RECV BY: [id number] ORDERED: HE/3, Gross/Micro L4 ORDERED: HE3, Gross/Micro [...] foot length of 0.7 cm from heel-to-toe. Front Desk Lead sections are submitted in 3 cassettes as follows: A1-A2 - Villous tissue A3 - tissue CPT Codes 78723 Specimen: [id number] Received: 04/24/23 Status: RUBINA Sharpe Num: [id number] Spec Type: Surgical Subm Dr: Nils Sarkar MD-JODEE Tissues: A Products of Conception - Spontaneous or Missed (POC) Procedures: HE/3, Gross/Micro L4 Patient: Sarah Arce [id number] (Continued) Signed (signature on file) Tavia Abad MD 04/28/23 2321 Normal [facility] CBC AUTO DIFFon 10-02-2020 BASO # 0.0 103/ul Normal 0.0-0.1 [facility] Comment on above: Performed By: #### U MICRO, UACSIND #### [facility] [address] [place] [address] Vandana Indira Basophils/100 WBC (Bld) 0.1 % Critically low 0.2-2.0 [facility] Comment on above: Performed By: #### U MICRO, UACSIND #### [facility] [address] [place] [address] Vandana Indira EO # 0.0 103/ul Normal 0.0-0.7 [facility] Comment on above: Performed By: #### U MICRO, UACSIND #### [facility] [address] [place] [id number] Vandana Indira Eosinophils/100 WBC (Bld) 0.0 % Critically low 0.9-7.0 [facility] Comment on above: Performed By: #### U MICRO, UACSIND #### [facility] [address] [place] [id number] Vandana Indira Erythrocyte distribution width (RBC) [Ratio] 15.9 % Critically high 11.0-15.0 [facility] Comment on above: Performed By: #### U MICRO, UACSIND #### [facility] [address] [place] [address] Vandana Indira Hematocrit (Bld) [Volume fraction] 33.3 % Critically low 36.0-48.0 [facility] Comment on above: Performed By: #### U MICRO, UACSIND #### [facility] [address] [place] [address] Vandana Indira Hemoglobin (Bld) [Mass/Vol] 11.2 g/dL Critically low 12.0-16.0 [facility] Comment on above: Performed By: #### U MICRO, UACSIND #### [facility] [address] [place] [address] Vandana Indira IG # 0.07 10e3/ul Critically high 0.00-0.03 [facility] Comment on above: Performed By: #### U MICRO, UACSIND #### [facility] [address] [place] [address] Vandana Indira IG % 0.4 % Normal 0.0-0.5 [facility] Comment on above: Performed By: #### U MICRO, UACSIND #### [facility] [address] [place] [address] Vandana Indira LYMPH # 1.9 103/ul Normal 1.2-3.8 [facility] Comment on above: Performed By: #### U MICRO, UACSIND #### [facility] [address] [place] [address] Vandana Jacobson Lymphocytes/100 WBC (Bld) 11.4 % Critically low 20.5-60.0 [facility] Comment on above: Performed By: #### U MICRO, UACSIND #### [facility] [address] [place] [address] Vandanadave Jacobson MANUAL DIFF REQ NO Normal [facility] Comment on above: Performed By: #### U MICRO, UACSIND #### [facility] [address] [place] [address] Vandana Indira MCH (RBC) [Entitic mass] 27.7 pg Normal 26.7-34.0 [facility] Comment on above: Performed By: #### U MICRO, UACSIND #### [facility] [address] [place] [address] Vandana Jacobson MCHC (RBC) [Mass/Vol] 33.6 g/dL Normal 29.9-35.2 [facility] Comment on above: Performed By: #### U MICRO, UACSIND #### [facility] [address] [place] [address] Vandana Lien MCV (RBC) [Entitic vol] 82.4 fL Normal 81.0-99.0 [facility] Comment on above: Performed By: #### U MICRO, UACSIND #### [facility] [address] [place] [address] Vandana Jacobson MONO # 1.0 103/ul Critically high 0.3-0.8 [facility] Comment on above: Performed By: #### U MICRO, UACSIND #### [facility] [address] [place] [address] Vandanadave Jacobson Monocytes/100 WBC (Bld) 6.3 % Normal 1.7-12.0 [facility] Comment on above: Performed By: #### U MICRO, UACSIND #### [facility] [address] [place] [address] Vandana Jacobson NEUT # 13.4 103/ul Critically high 1.4-6.5 [facility] Comment on above: Performed By: #### U MICRO, UACSIND #### [facility] [address] [place] [address] Vandana Jacobson Neutrophils/100 WBC (Bld) 81.8 % Critically high 43.0-75.0 [facility] Comment on above: Performed By: #### U MICRO, UACSIND #### [facility] [address] [place] [address] Vandana Jacobson Platelet mean volume (Bld) [Entitic vol] 10.3 fL Normal 9.5-13.5 [facility] Comment on above: Performed By: #### U MICRO, UACSIND #### [facility] [address] [place] [address] Vandana Jacobson PLT 202 103/ul Normal 150-450 The [facility] Comment on above: Performed By: #### U MICRO, UACSIND #### [facility] [address], [place] [address] Vandana Jacobson RBC 4.04 106/ul Critically low 4.20-5.40 [facility] Comment on above: Performed By: #### U MICRO, UACSIND #### [facility] [address], [place] [address] Vandana Jacobson WBC 16.4 103/ul Critically high 4.0-11.0 [facility] Comment on above: Performed By: #### U MICRO, UACSIND #### [facility] [address], [place] [address] Vandana Jacobson ASYMPTOMATIC COVID-19 ANTIGE Non 10-01-2020 EUA Statement SEE BELOW Normal [facility] Comment on above: Result Comment: This [...] sooner. Performed By: #### C VDAGA #### [facility] [address] [place], [place] [address] Vandana Jacobson SARS-CoV-2 (COVID-19) RNA RAMA+probe Ql (Unsp spec) Negative Normal NEGATIVE [facility] Comment on above: Result Comment: Nega tive results are presumptive. They do not preclude infection and should not be used as the sole basis for treatment decisions. Additional confirmatory testing by a molecular method should be considered. Performed By: #### C VDAGA #### [facility] [address] [place], [place] [address] Vandana Indira CBC AUTO DIFFon 10-01-2020 BASO # 0.0 103/ul Normal 0.0-0.1 [facility] Comment on above: Performed By: #### D RUGRPD #### [facility] [address] [place] [id number] Vandana Indira Basophils/100 WBC (Bld) 0.1 % Critically low 0.2-2.0 [facility] Comment on above: Performed By: #### D RUGRPD #### [facility] [address] [place] [id number] Vandana Indira EO # 0.0 103/ul Normal 0.0-0.7 [facility] Comment on above: Performed By: #### D RUGRPD #### [facility] [address] [place], [place] [phone] Vandana Indira Eosinophils/100 WBC (Bld) 0.1 % Critically low 0.9-7.0 [facility] Comment on above: Performed By: #### D RUGRPD #### [facility] [address] [place], [place] [phone] Vandana Indira Erythrocyte distribution width (RBC) [Ratio] 15.8 % Critically high 11.0-15.0 [facility] Comment on above: Performed By: #### D RUGRPD #### [facility] [address] [place], [place] [phone] Vandana Indira Hematocrit (Bld) [Volume fraction] 40.2 % Normal 36.0-48.0 [facility] Comment on above: Performed By: #### D RUGRPD #### [facility] [address] [place], [place] [id number] Vandana Indira Hemoglobin (Bld) [Mass/Vol] 13.4 g/dL Normal 12.0-16.0 [facility] Comment on above: Performed By: #### D RUGRPD #### [facility] [address] [place] [id number] Vandana Indira IG # 0.04 10e3/ul Critically high 0.00-0.03 [facility] Comment on above: Performed By: #### D RUGRPD #### [facility] [address] [place] [id number] Vandana Indira IG % 0.4 % Normal 0.0-0.5 [facility] Comment on above: Performed By: #### D RUGRPD #### [facility] [address] [place] [id number] Vandana Indira LYMPH # 1.5 103/ul Normal 1.2-3.8 [facility] Comment on above: Performed By: #### D RUGRPD #### [facility] [address] [place], [place] [phone] Vandana Jacobson Lymphocytes/100 WBC (Bld) 14.7 % Critically low 20.5-60.0 [facility] Comment on above: Performed By: #### D RUGRPD #### [facility] [address] [place], [place] [phone] Vandana Jacobson MANUAL DIFF REQ NO Normal [facility] Comment on above: Performed By: #### D RUGRPD #### [facility] [address] [place], [place] [phone] Vandanadave Jacobson MCH (RBC) [Entitic mass] 27.3 pg Normal 26.7-34.0 [facility] Comment on above: Performed By: #### D RUGRPD #### [facility] [address] [place], [place] [phone] Vandana Jacobson MCHC (RBC) [Mass/Vol] 33.3 g/dL Normal 29.9-35.2 [facility] Comment on above: Performed By: #### D RUGRPD #### [facility] [address] [place], [place] [phone] Vandana Jacobson MCV (RBC) [Entitic vol] 82.0 fL Normal 81.0-99.0 [facility] Comment on above: Performed By: #### D RUGRPD #### [facility] [address] [place] [id number] Vandana Indira MONO # 0.5 103/ul Normal 0.3-0.8 [facility] Comment on above: Performed By: #### D RUGRPD #### [facility] [address] [place], [place] [address] Vandanadave Jacobson Monocytes/100 WBC (Bld) 5.2 % Normal 1.7-12.0 [facility] Comment on above: Performed By: #### D RUGRPD #### [facility] [address] [place], [place] [address] Vandanadave Lien NEUT # 8.1 103/ul Critically high 1.4-6.5 [facility] Comment on above: Performed By: #### D RUGRPD #### [facility] [address] [place], [place] [address] Vandana Indira Neutrophils/100 WBC (Bld) 79.5 % Critically high 43.0-75.0 [facility] Comment on above: Performed By: #### Ceci RUGRPD #### [facility] [address] [place] [address] Vandana Jacobson Platelet mean volume (Bld) [Entitic vol] 10.6 fL Normal 9.5-13.5 [facility] Comment on above: Performed By: #### Ceci RUGRPD #### [facility] [address] [place] [address] Vandana Indira PLT 256 103/ul Normal 150-450 [facility] Comment on above: Performed By: #### Ceci RUGRPD #### [facility] [address] [place], [place] [address] Vandana Indira RBC 4.90 106/ul Normal 4.20-5.40 [facility] Comment on above: Performed By: #### D RUGRPD #### [facility] [address] [place] [address] Vandana Indira WBC 10.2 103/ul Normal 4.0-11.0 [facility] Comment on above: Performed By: #### D RUGRPD #### [facility] [address] [place] [address] Vandana Jacobson DRUG SCREEN RAPID (URINE)on 10-01-2020 AMP Negative Normal NEGATIVE [facility] Comment on above: Performed By: #### D JESID #### [facility] [address] [place] [address] Vandana Indira BAR Negative Normal NEGATIVE [facility] Comment on above: Performed By: #### D RUGRPD #### [facility] [address] [place] [address] Vandana Indira BUP Negative Normal NEGATIVE [facility] Comment on above: Performed By: #### D RUGRPD #### [facility] [address] [place] [address] Vandana Indira BZO Negative Normal NEGATIVE [facility] Comment on above: Performed By: #### D RUGRPD #### [facility] [address] [place] [address] Vandana Indira ROLANDA Negative Normal NEGATIVE [facility] Comment on above: Performed By: #### D RUGRPD #### [facility] [address] [place] [address] Vandana Indira CUT-OFFS SEE BELOW Normal [facility] Comment on above: Result Comment: AMP (Amphetamine): 500ng/mL, BAR (Barbituates): 200 ng/mL, BZO (Benzodiazepines): 150 ng/mL, BUP (Buprenorphine): 10 ng/mL, ROLANDA (Cocaine): 150 ng/mL, mAMP (Methamphetamine): 500 ng/mL, MTD (Methadone): 200 ng/mL, OPI (Opiates): 100 ng/mL, OXY (Oxycodone): 100 ng/mL, PCP (Phencyclidine): 25 ng/mL, PPX (Propoxyphene): 300 ng/mL, THC (Cannabinoids): 50 ng/mL, TCA (Trycyclic Antidepressants): 300 ng/mL Performed By: #### D RUGRPD #### [facility] [address] [place] [address] [facility] HEADER DRUG CLASS TEST SYSTEM CUT-OFF CONCENTRATIONS ARE FOLLOWS: Normal [facility] Comment on above: Performed By: #### D RUGRPD #### [facility] [address] [place] [address] Vandana Indira mAMP Negative Normal NEGATIVE [facility] Comment on above: Performed By: #### D RUGRPD #### [facility] [address] [place] [address] Vandana Indira MTD Negative Normal NEGATIVE [facility] Comment on above: Performed By: #### D RUGRPD #### [facility] [address] [place] [id number] Vandana Indira OPI Negative Normal NEGATIVE [facility] Comment on above: Performed By: #### D RUGRPD #### [facility] [address] [place] [address] Vandana Indira OXY Negative Normal NEGATIVE [facility] Comment on above: Performed By: #### D RUGRPD #### [facility] [address] [place] [address] Vandana Indira PCP Negative Normal NEGATIVE [facility] Comment on above: Performed By: #### D RUGRPD #### [facility] [address] [place] [address] Vandana Indira PPX Negative Normal NEGATIVE [facility] Comment on above: Performed By: #### D RUGRPD #### [facility] [address] [place] [address] Vandana Indira TCA Negative Normal NEGATIVE [facility] Comment on above: Performed By: #### D RUGRPD #### [facility] [address] [place] [address] Vandana Indira THC Negative Normal NEGATIVE [facility] Comment on above: Performed By: #### D RUGRPD #### [facility] [address] [place], [place] [phone] Vandana Indira TYPE AND SCREENon 10-01-2020 TYPE AND SCREEN Negative Normal [facility] Comment on above: Performed By: #### D RUGRPD #### [facility] [address] [place] [address] Vandana Indira US PREG GROWTHon 09-12-2020 US [...] EFW: 6 lbs. 13 oz., 58% FL/AC: 0.014342 FL/BPD: 0.612372 HC/AC: 0.727659 GESTATIONAL AGE: Age by EDC: 36 weeks 6 days YUE by EDC: 10/04/2020 Age by US: 37 weeks 0 days YUE by US: 10/03/2020 IMPRESSION: Normal interval growth Electronically authenticated by: KECIA LIE Date: 2020-09-12 13:13 Normal [facility] HEMOGLOBINOPATHY FRACTIONATI ON CASCADEon 09-11-2020 HGB A 97.4 % Normal 96.4-98.8 [facility] Comment on above: Performed By: #### U MICRO, UACSIND #### [facility] [address] [place] [address] Vandana Jacobson HGB A2 2.6 % Normal 1.8-3.2 [facility] Comment on above: Performed By: #### U MICRO, UACSIND #### [facility] [address] [place] [address] Vandana Indira HGB F 0.0 % Normal 0.0-2.0 [facility] Comment on above: Performed By: #### U MICRO, UACSIND #### [facility] [address] [place] [address] Vandanadave Jacobson HGB S 0.0 % Normal 0.0 [facility] Comment on above: Performed By: #### U MICRO, UACSIND #### [facility] [address] [place] [address] Vandanadave Jacobson Interpretation: Comment Normal [facility] Comment on above: Result Comment: Norm al hemoglobin present; no hemoglobin variant or thalassemia observed. Performed By: #### U MICRO, UACSIND #### [facility] [address] [place] [address] Vandana Jacobson CBC AUTO DIFFon 07-05-2021 BASO # 0.0 103/ul Normal 0.0-0.1 [facility] Comment on above: Performed By: #### C BC #### [facility] [address] [place] [id number] Vandana Jacobson Basophils/100 WBC (Bld) 0.1 % Critically low 0.2-2.0 [facility] Comment on above: Performed By: #### C BC #### [facility] [address] [place] [address] Vandanadave Jacobson EO # 0.0 103/ul Normal 0.0-0.7 [facility] Comment on above: Performed By: #### C BC #### [facility] [address] [place] [address] Vandana Jacobson Eosinophils/100 WBC (Bld) 0.4 % Critically low 0.9-7.0 [facility] Comment on above: Performed By: #### C BC #### [facility] [address] [place] [address] Vandana Jacobson Erythrocyte distribution width (RBC) [Ratio] 16.0 % Critically high 11.0-15.0 [facility] Comment on above: Performed By: #### C BC #### [facility] [address] [place] [address] Vandana Jacobson Hematocrit (Bld) [Volume fraction] 36.5 % Normal 36.0-48.0 [facility] Comment on above: Performed By: #### C BC #### [facility] [address] [place] [address] Vandanadave Jacobson Hemoglobin (Bld) [Mass/Vol] 12.2 g/dL Normal 12.0-16.0 [facility] Comment on above: Performed By: #### C BC #### [facility] [address] [place], [place] [id number] Vandana Indira IG # 0.07 10e3/ul Critically high 0.00-0.03 [facility] Comment on above: Performed By: #### C BC #### [facility] [address] [place], [place] [phone] Vandana Indira IG % 0.9 % Critically high 0.0-0.5 [facility] Comment on above: Performed By: #### C BC #### [facility] [address] [place] [address] Vandana Indira LYMPH # 1.9 103/ul Normal 1.2-3.8 [facility] Comment on above: Performed By: #### C BC #### [facility] [address] [place] [address] Vandana Indira Lymphocytes/100 WBC (Bld) 23.7 % Normal 20.5-60.0 [facility] Comment on above: Performed By: #### C BC #### [facility] [address] [place] [address] Vandanadave Jacobson MANUAL DIFF REQ NO Normal [facility] Comment on above: Performed By: #### C BC #### [facility] [address] [place] [address] Vandana Indira MCH (RBC) [Entitic mass] 27.4 pg Normal 26.7-34.0 [facility] Comment on above: Performed By: #### C BC #### [facility] [address] [place], [place] [phone] Vandanadave Jacobson MCHC (RBC) [Mass/Vol] 33.4 g/dL Normal 29.9-35.2 [facility] Comment on above: Performed By: #### C BC #### [facility] [address] [place] [address] Vandanadave Lien MCV (RBC) [Entitic vol] 82.0 fL Normal 81.0-99.0 [facility] Comment on above: Performed By: #### C BC #### [facility] [address] [place], [place] [phone] Vandana Indira MONO # 0.7 103/ul Normal 0.3-0.8 [facility] Comment on above: Performed By: #### C BC #### [facility] [address] [place], [place] [phone] Vandana Indira Monocytes/100 WBC (Bld) 8.8 % Normal 1.7-12.0 [facility] Comment on above: Performed By: #### C BC #### [facility] [address] [place] [address] Vandana Jacobson NEUT # 5.3 103/ul Normal 1.4-6.5 [facility] Comment on above: Performed By: #### C BC #### [facility] [address] [place], [place] [address] Vandana Jacobson Neutrophils/100 WBC (Bld) 66.1 % Normal 43.0-75.0 [facility] Comment on above: Performed By: #### C BC #### [facility] [address] [place] [address] Vandana Jacobson Platelet mean volume (Bld) [Entitic vol] 11.6 fL Normal 9.5-13.5 [facility] Comment on above: Performed By: #### C BC #### [facility] [address] [place], [place] [id number] Vandana Indira PLT 221 103/ul Normal 150-450 [facility] Comment on above: Performed By: #### C BC #### [facility] [address] [place] [address] Vandana Indira RBC 4.45 106/ul Normal 4.20-5.40 [facility] Comment on above: Performed By: #### C BC #### [facility] [address] [place], [place] [phone] Vandaandave Lien WBC 8.1 103/ul Normal 4.0-11.0 [facility] Comment on above: Performed By: #### C BC #### [facility] [address] [place] [address] Vandana Jacobson VAGINITIS/VAGINOSIS DNA PROB Miller 09-08-2020 Nichole species Negative Normal Negative [facility] Comment on above: Performed By: #### V AGINT #### [facility] [address] [place], [place] [phone] Vandanadave Jacobson Gardnerella vaginalis Negative Normal Negative [facility] Comment on above: Performed By: #### V AGINT #### [facility] [address] [place] [address] Vandana Jacobson Trichomonas vaginalis Negative Normal Negative [facility] Comment on above: Performed By: #### V AGINT #### [facility] [address] [place], [place] [phone] Vandana Jacobson CHLAMYDIA/GONOCOCCUS RAMA (SW AB/URINE/PAPon 09-07-2020 Chlamydia trachomatis, RAMA Negative Normal Negative [facility] Comment on above: Performed By: #### D RUGRPD #### [facility] [address] [place] [address] Vandana Jacobson Neisseria gonorrhoeae, RAMA Negative Normal Negative [facility] Comment on above: Performed By: #### D RUGRPD #### [facility] [address] [place] [address] Vandana Jacobson GROUP B STREP CULTUREon 07-0 S. agalactiae Ag Ql (Unsp spec) Culture Observations: NEGATIVE FOR GROUP B STREPTOCOCCUS. Normal [facility] Comment on above: Performed By: #### D RUGRPD #### [facility] [address] [place] [address] Vandana Jacobson CULTURE URINEon 08-31-2020 CULTURE URINE Culture Observations: LIGHT GROWTH OF MIXED GENITAL TEDDY. NO POTENTIAL PATHOGENS SEEN. Normal [facility] Comment on above: Performed By: #### D RUGRPD #### [facility] [address] [place], [place] [phone] Vandana Jacobson UA (CLEAN/CATCH) STILL PHOTOGRAPHER/MICRO I F IND.on 08-31-2020 Bilirubin Ql (U) Negative Normal NEGATIVE [facility] Comment on above: Performed By: #### U MICRO, UACSIND #### [facility] [address] [place] [address] Vandana Jacobson Clarity (U) SL CLOUDY Abnormal CLEAR [facility] Comment on above: Performed By: #### U MICRO, UACSIND #### [facility] [address] [place] [address] Vandana Indira Color (U) LT. YELLOW Normal YELLOW [facility] Comment on above: Performed By: #### U MICRO, UACSIND #### [facility] [address] [place] [address] Vandana Indira Glucose Ql (U) Negative Normal NEGATIVE [facility] Comment on above: Performed By: #### U MICRO, UACSIND #### [facility] [address] [place] [address] Vandana Indira Hemoglobin Ql (U) Negative Normal NEGATIVE [facility] Comment on above: Performed By: #### U MICRO, UACSIND #### [facility] [address] [place] [address] Vandana Indira Ketones Ql (U) 15 mg/dl Abnormal NEGATIVE [facility] Comment on above: Performed By: #### U MICRO, UACSIND #### [facility] [address] [place] [address] Vandana Indira LEUKOCYTES SMALL Abnormal NEGATIVE [facility] Comment on above: Performed By: #### U MICRO, UACSIND #### [facility] [address] [place] [address] Vandana Indira Nitrite Ql (U) Negative Normal NEGATIVE [facility] Comment on above: Performed By: #### U MICRO, UACSIND #### [facility] [address] [place] [address] Vandana Indira pH (U) 7.0 [pH] Normal 5-9 [facility] Comment on above: Performed By: #### U MICRO, UACSIND #### [facility] [address] [place] [address] Vandana Indira SPEC GRAVITY 1.015 Normal 1.005-<=1.025 [facility] Comment on above: Performed By: #### U MICRO, UACSIND #### [facility] [address] [place] [address] Vandana Indira UA PROTEIN Negative Normal NEGATIVE/ TRACE [facility] Comment on above: Performed By: #### U MICRO, UACSIND #### [facility] [address] [place] [address] Vandana Indira UR MICRO IND INDICATED Normal [facility] Comment on above: Performed By: #### U MICRO, UACSIND #### [facility] [address] [place] [address] Vandana Indira Urobilinogen Qn (U) 0.2 {Richard'U}/dL Normal 0.2 - 1. 0 [facility] Comment on above: Performed By: #### U MICRO, UACSIND #### [facility] [address] [place] [address] Vandana Indira URINE MICROSCOPIC ONLYon BACTERIA SMALL Abnormal NONE SEEN [facility] Comment on above: Performed By: #### U MICRO, UACSIND #### [facility] [address] [place] [address] Vandana Indira Bacteria identified Cx Nom (U) INDICATED Normal [facility] Comment on above: Performed By: #### U MICRO, UACSIND #### [facility] [address] [place] [address] Vandana Indira CAST NONE SEEN Normal NONE SEEN [facility] Comment on above: Performed By: #### U MICRO, UACSIND #### [facility] [address] [place] [address] Vandana Indira Crystals LM Nom (Urine sed) NONE SEEN Normal NONE SEEN [facility] Comment on above: Performed By: #### U MICRO, UACSIND #### [facility] [address] [place] [address] Vandana Indira Epithelial cells LM Ql (Urine sed) MODERATE Abnormal NONE SEEN /RARE [facility] Comment on above: Performed By: #### U MICRO, UACSIND #### [facility] [address] [place] [address] Vandana Indira MUCOUS NONE SEEN Normal NONE SEEN [facility] Comment on above: Performed By: #### U MICRO, UACSIND #### [facility] [address] [place] [address] Vandana Indira RBC NONE SEEN Abnormal 0-2 [facility] Comment on above: Performed By: #### U MICRO, UACSIND #### [facility] [address] [place] [address] Vandana Indira WBC NONE SEEN Normal NONE SEEN [facility] Comment on above: Performed By: #### U MICRO, UACSIND #### [facility] [address] [place], [place] [id number] Vandana Indira CULTURE URINEon 08-01-2020 CULTURE URINE Culture Observations: LIGHT GROWTH OF MIXED GENITAL TEDDY. NO POTENTIAL PATHOGENS SEEN. Normal [facility] Comment on above: Performed By: #### U RCX #### [facility] [address] [place], [place] [id number] Vandana Indira UA RANDOM W/MICROSCOPICon BACTERIA TRACE Abnormal NONE SEEN [facility] Comment on above: Performed By: #### U AMIC #### [facility] [address] [place] [address] Vandana Indira Bilirubin Ql (U) Negative Normal NEGATIVE [facility] Comment on above: Performed By: #### U AMIC #### [facility] [address] [place] [address] Vandana Indira CAST NONE SEEN Normal NONE SEEN [facility] Comment on above: Performed By: #### U AMIC #### [facility] [address] [place] [address] Vandana Indira Clarity (U) CLEAR Normal CLEAR [facility] Comment on above: Performed By: #### U AMIC #### [facility] [address] [place] [address] Vandana Indira Color (U) LT. YELLOW Normal YELLOW [facility] Comment on above: Performed By: #### U AMIC #### [facility] [address] [place] [address] Vandana Indira Crystals LM Nom (Urine sed) NONE SEEN Normal NONE SEEN [facility] Comment on above: Performed By: #### U AMIC #### [facility] [address] [place], [place] [id number] Vandana Indira Epithelial cells LM Ql (Urine sed) FEW Abnormal NONE SEEN /RARE [facility] Comment on above: Performed By: #### U AMIC #### [facility] [address] [place] [address] Vandana Indira Glucose Ql (U) Negative Normal NEGATIVE The [facility] Comment on above: Performed By: #### U AMIC #### [facility] [address] [address] Vandana Indira Hemoglobin Ql (U) Negative Normal NEGATIVE The [facility] Comment on above: Performed By: #### U AMIC #### [facility] [address] [address] Vandana Indira Ketones Ql (U) Negative Normal NEGATIVE The [facility] Comment on above: Performed By: #### U AMIC #### [facility] [address] [address] Vandana Indira LEUKOCYTES Negative Normal NEGATIVE [facility] Comment on above: Performed By: #### U AMIC #### [facility] [address] [address] Vandana Indira MUCOUS NONE SEEN Normal NONE SEEN [facility] Comment on above: Performed By: #### U AMIC #### [facility] [address] [place] [address] Vandana Indira Nitrite Ql (U) Negative Normal NEGATIVE The [facility] Comment on above: Performed By: #### U AMIC #### [facility] [address] [address] Vandana Indira pH (U) 7.5 [pH] Normal 5-9 [facility] Comment on above: Performed By: #### U AMIC #### [facility] [address] [place] [address] Vandana Indira RBC 0-2 Normal 0-2 [facility] Comment on above: Performed By: #### U AMIC #### [facility] [address] [place] [address] Vandana Indira SPEC GRAVITY 1.015 Normal 1.005-<=1.025 The [facility] Comment on above: Performed By: #### U AMIC #### [facility] [address] [place] [address] Vandana Indira UA PROTEIN Negative Normal NEGATIVE/ TRACE [facility] Comment on above: Performed By: #### U AMIC #### [facility] [address] [place] [address] Vandana Indira Urobilinogen Qn (U) 0.2 {Richard'U}/dL Normal 0.2 - 1. 0 [facility] Comment on above: Performed By: #### U AMIC #### [facility] [address] [place] [address] Vandana Indira WBC 0-2 Abnormal NONE SEEN [facility] Comment on above: Performed By: #### U AMIC #### [facility] [address] [place], [place] [id number] Vandana Indira CBC AUTO DIFFon 12-17-2019 BASO # 0.0 103/ul Normal 0.0-0.1 [facility] Comment on above: Performed By: #### C BC #### [facility] [address] [place] [address] Vandana Indira Basophils/100 WBC (Bld) 0.1 % Critically low 0.2-2.0 [facility] Comment on above: Performed By: #### C BC #### [facility] [address] [place] [address] Vandana Indira EO # 0.1 103/ul Normal 0.0-0.7 [facility] Comment on above: Performed By: #### C BC #### [facility] [address] [place] [address] Vandana Indira Eosinophils/100 WBC (Bld) 0.9 % Normal 0.9-7.0 [facility] Comment on above: Performed By: #### C BC #### [facility] [address] [place] [address] Vandana Indira Erythrocyte distribution width (RBC) [Ratio] 14.3 % Normal 11.0-15.0 [facility] Comment on above: Performed By: #### C BC #### [facility] [address] [place] [address] Vandana Indira Hematocrit (Bld) [Volume fraction] 40.5 % Normal 36.0-48.0 [facility] Comment on above: Performed By: #### C BC #### [facility] [address] [place] [address] Vandana Indira Hemoglobin (Bld) [Mass/Vol] 13.2 g/dL Normal 12.0-16.0 [facility] Comment on above: Performed By: #### C BC #### [facility] [address] [place] [address] Vandanadave Jacobson IG # 0.01 10e3/ul Normal 0.00-0.03 [facility] Comment on above: Performed By: #### C BC #### [facility] [address] [place] [address] Vandana Indira IG % 0.1 % Normal 0.0-0.5 [facility] Comment on above: Performed By: #### C BC #### [facility] [address] [place] [address] Vandanadave Jacobson LYMPH # 2.0 103/ul Normal 1.2-3.8 [facility] Comment on above: Performed By: #### C BC #### [facility] [address] [place] [address] Vandana Jacobson Lymphocytes/100 WBC (Bld) 27.9 % Normal 20.5-60.0 [facility] Comment on above: Performed By: #### C BC #### [facility] [address] [place] [address] Vandana Jacobson MANUAL DIFF REQ NO Normal [facility] Comment on above: Performed By: #### C BC #### [facility] [address] [place] [address] Vandana Jacobson MCH (RBC) [Entitic mass] 25.7 pg Critically low 26.7-34.0 [facility] Comment on above: Performed By: #### C BC #### [facility] [address] [place] [address] Vandanadave Jacobson MCHC (RBC) [Mass/Vol] 32.6 g/dL Normal 29.9-35.2 [facility] Comment on above: Performed By: #### C BC #### [facility] [address] [place] [address] Vandana Jacobsno MCV (RBC) [Entitic vol] 78.9 fL Critically low 81.0-99.0 [facility] Comment on above: Performed By: #### C BC #### [facility] [address] [id number] Vandana Lien MONO # 0.5 103/ul Normal 0.3-0.8 [facility] Comment on above: Performed By: #### C BC #### [facility] [address] [id number] Vandana Lien Monocytes/100 WBC (Bld) 7.0 % Normal 1.7-12.0 [facility] Comment on above: Performed By: #### C BC #### [facility] [address] [id number] Vandana Indira NEUT # 4.5 103/ul Normal 1.4-6.5 [facility] Comment on above: Performed By: #### C BC #### [facility] [address] [place], [place] [id number] Vandana Lien Neutrophils/100 WBC (Bld) 64.0 % Normal 43.0-75.0 [facility] Comment on above: Performed By: #### C BC #### [facility] [address] [id number] Vandana Jacobson Platelet mean volume (Bld) [Entitic vol] 8.9 fL Critically low 9.5-13.5 [facility] Comment on above: Performed By: #### C BC #### [facility] [address] [place], [place] [id number] Vandana Indira PLT 345 103/ul Normal 150-450 [facility] Comment on above: Performed By: #### C BC #### [facility] [address] [id number] Vandana Indira RBC 5.13 106/ul Normal 4.20-5.40 [facility] Comment on above: Performed By: #### C BC #### [facility] [address] [address] Vandana Indira WBC 7.1 103/ul Normal 4.0-11.0 [facility] Comment on above: Performed By: #### C BC #### [facility] [address] [place] [address] Vandana Jacobson FERRITINon 12-17-2019 Ferritin [Mass/Vol] 27.0 ng/mL Normal 6.2-137.0 The [facility] Comment on above: Performed By: #### D JUDI #### [facility] [address] [place] [address] Vandana Jacobson IRONon 12-17-2019 Iron [Mass/Vol] 35.0 ug/dL Critically low 37.0-170.0 The [facility] Comment on above: Performed By: #### D JUDI #### [facility] [address] [place] [address] Vandana Jacobson PROF 14(COMP METB)on 020 Albumin [Mass/Vol] 3.7 g/dL Normal 3.5-5.0 [facility] Comment on above: Performed By: #### C MP #### [facility] [address] [place], [place] [id number] Vandana Indira Albumin/Globulin [Mass ratio] 0.9 {ratio} Normal [facility] Comment on above: Performed By: #### C MP #### [facility] [address] [place], [place] [id number] Vandana Indira ALP [Catalytic activity/Vol] 82 U/L Normal 38-126 [facility] Comment on above: Performed By: #### C MP #### [facility] [address] [place], [place] [phone] Vandana Indira ALT [Catalytic activity/Vol] 21 U/L Normal 9-52 [facility] Comment on above: Performed By: #### C MP #### [facility] [address] [place] [address] Vandana Indira Anion gap [Moles/Vol] 12.5 mmol/L Normal [facility] Comment on above: Performed By: #### C MP #### [facility] [address] [place] [address] Vandana Indira AST [Catalytic activity/Vol] 15 U/L Normal 14-36 [facility] Comment on above: Performed By: #### C MP #### [facility] [address] [address] Vandana Indira Bilirubin [Mass/Vol] 0.3 mg/dL Normal 0.2-1.3 [facility] Comment on above: Performed By: #### C MP #### [facility] [address] [id number] Vandana Indira Calcium [Mass/Vol] 9.5 mg/dL Normal 8.4-10.2 The [facility] Comment on above: Performed By: #### C MP #### [facility] [address] [address] Vandana Indira Chloride [Moles/Vol] 104 mmol/L Normal 98-107 [facility] Comment on above: Performed By: #### C MP #### [facility] [address] [place] [address] Vandana Indira CO2 [Moles/Vol] 28.4 mmol/L Normal 22.0-30.0 [facility] Comment on above: Performed By: #### C MP #### [facility] [address] [place], [place] [id number] Vandana Indira Creatinine [Mass/Vol] 0.69 mg/dL Normal 0.52-1.04 [facility] Comment on above: Performed By: #### C MP #### [facility] [address] [place], [place] [id number] Vandana Indira EGFR-AF TRINIDADIAN >60 Normal >=60 [facility] Comment on above: Performed By: #### C MP #### [facility] [address] [id number] Vandana Indira EGFR-NON AF TRINIDADIAN >60 Normal >=60 [facility] Comment on above: Performed By: #### C MP #### [facility] [address] [place], [place] [phone] Vandana Indira Globulin (S) [Mass/Vol] 4.1 g/dL Normal [facility] Comment on above: Performed By: #### C MP #### [facility] [address] [place] [address] Vandnaa Indira Glucose [Mass/Vol] 94 mg/dL Normal 74-106 [facility] Comment on above: Performed By: #### C MP #### [facility] [address] [id number] Vandana Indira Potassium [Moles/Vol] 3.9 mmol/L Normal 3.4-5.0 [facility] Comment on above: Performed By: #### C MP #### [facility] [address] [id number] Vandana Indira Protein [Mass/Vol] 7.8 g/dL Normal 6.1-8.2 [facility] Comment on above: Performed By: #### C MP #### [facility] [address] [id number] Vandana Indira Sodium [Moles/Vol] 141 mmol/L Normal 137-145 [facility] Comment on above: Performed By: #### C MP #### [facility] [address] [address] Vandana Indira Urea nitrogen [Mass/Vol] 16.0 mg/dL Normal 7.0-17.0 [facility] Comment on above: Performed By: #### C MP #### [facility] [address] [place], [place] [phone] Vandana Indira Urea nitrogen/Creatinine [Mass ratio] 23.2 mg/mg Normal [facility] Comment on above: Performed By: #### C MP #### [facility] [address] [place], [place] [phone] Vandana Indira PROTIMEon 12-17-2019 INR Coag (PPP) [Relative time] 0.97 {INR} Normal [facility] Comment on above: Performed By: #### D RUGRPD #### [facility] [address] [id number] Vandana Indira INR GUIDELINES SEE BELOW Normal [facility] Comment on above: Result Comment: ABHIJIT RED INR: 2.0 - 3.0 CONDITIONS NOT LISTED BELOW 2.5 - 3.5 FOR PROSTHETIC HEART VALVE REPLACEMENT 2.5 - 3.5 RECURRENT THROMBOSIS Performed By: #### D RUGRPD #### [facility] [address] [place], [place] [address] Vandana Jacobson PT Coag (PPP) [Time] 10.3 s Normal 9.0-11.6 [facility] Comment on above: Performed By: #### D RUGRPD #### [facility] [address] [place], [place] [address] Vandana Jacobson PT NORMAL PLEASE NOTE: NORMAL RANGE CHANGE 11-24-2013 DUE TO REAGENT LOT CHANGE Normal [facility] Comment on above: Performed By: #### D RUGRPD #### [facility] [address] [place], [place] [address] Vandaan Jacobson PTTon 12-17-2019 aPTT Coag (Bld) [Time] 30.7 s Normal 22.3-36.2 [facility] Comment on above: Performed By: #### D RUGRPD #### [facility] [address] [place], [place] [address] Vandana Indira PTT NORMAL PLEASE NOTE: NORMAL RANGE CHANGE 01-31-2015 DUE TO REAGENT LOT CHANGE Normal [facility] Comment on above: Performed By: #### D RUGRPD #### [facility] [address] [place], [place] [address] Vandana Jacobson Vital Signs Date Time Vital Sign Value Performing Clinician Facility 04-30-2023 10:23-0500 Diastolic blood pressure 84 mm[Hg] PHYSICIAN [facility] 04-30-2023 10:23-0500 Heart rate 67 /min PHYSICIAN NO [facility] 04-30-2023 10:23-0500 Respiratory rate 18 /min PHYSICIAN NO [facility] 04-30-2023 10:23-0500 SaO2% (BldA) [Mass fraction] 99 % PHYSICIAN NO [facility] 04-30-2023 10:23-0500 Systolic blood pressure 130 mm[Hg] PHYSICIAN NO [facility] 04-30-2023 08:53-0500 Body temperature 98.3 [degF] PHYSICIAN NO [facility] 04-30-2023 08:12-0500 Inhaled oxygen flow rate 8 L/min PHYSICIAN NO [facility] 04-30-2023 07:44-0500 Body height 152.4 cm PHYSICIAN NO [facility] 04-30-2023 07:44-0500 Body mass index (BMI) [Ratio] 28.7 kg/m2 PHYSICIAN NO [facility] 04-30-2023 07:44-0500 Body weight 66.67 kg PHYSICIAN NO [facility] 04-24-2023 11:55-0500 Diastolic blood pressure 86 mm[Hg] PHYSICIAN NO [facility] 04-24-2023 11:55-0500 Heart rate 65 /min PHYSICIAN NO [facility] 04-24-2023 11:55-0500 Respiratory rate 16 /min PHYSICIAN NO [facility] 04-24-2023 11:55-0500 SaO2% (BldA) [Mass fraction] 100 % PHYSICIAN NO [facility] 04-24-2023 11:55-0500 Systolic blood pressure 119 mm[Hg] PHYSICIAN NO [facility] 04-24-2023 11:07-0500 Body temperature 98 [degF] PHYSICIAN NO [facility] 04-24-2023 10:42-0500 Inhaled oxygen flow rate 8 L/min PHYSICIAN NO [facility] 04-24-2023 08:52-0500 Body height 152.4 cm PHYSICIAN NO [facility] 04-24-2023 08:52-0500 Body mass index (BMI) [Ratio] 29 kg/m2 PHYSICIAN NO [facility] 04-24-2023 08:52-0500 Body weight 67.58 kg PHYSICIAN NO [facility] 04-20-2023 08:56-0500 Body mass index (BMI) [Ratio] 30.09 kg/m2 Nils Sarkar MD Work Phone: [facility] 04-20-2023 08:56-0500 Body weight 67.59 kg Nils Sarkar MD Work Phone: [facility] 04-20-2023 08:56-0500 Diastolic blood pressure 66 mm[Hg] Nils Sarkar MD Work Phone: [facility] 04-20-2023 08:56-0500 Systolic blood pressure 110 mm[Hg] Nils Sarkar MD Work Phone: [facility] Encounters Encounter Date Encounter Type Care Provider Facility Start: 11-13-2023 End: 11-13-2023 ambulatory PHYSICIAN NO [facility] Work Phone: Start: 11-13-2023 End: 11-13-2023 Departed Referred PHYSICIAN NO [facility] Work Phone: Start: 05-11-2023 End: 05-11-2023 ambulatory NILS SARKAR Not Available Start: 04-29-2023 End: 04-30-2023 Patient encounter procedure PHYSICIAN NO [facility] [place] [address] Medical - O/P Start: 04-29-2023 End: 04-30-2023 ambulatory PHYSICIAN NO [facility] Work Phone: Start: 04-24-2023 End: 04-24-2023 Admission to same day surgery center PHYSICIAN NO [facility] [place] Start: 04-24-2023 End: 04-24-2023 ambulatory PHYSICIAN NO [facility] Work Phone: Start: 04-20-2023 [...] on above: Result Comment: PERF ORMED BY: [facility] [id number] [place] [id number] PATHOLOGIST [employer] CHUY PALOMO M.D. Start: 04-24-2023 Dilation and curetta ge of uterus PHYSICIAN NO [facility] Start: 10-01-2020 Delivery of Products of Conception, External Approach TERENCE JOE Start: 10-01-2020 Repair Vulva, Imaging Scheduler al Approach TERENCE JOE Plan of Treatment Date Care Activity Detail Author Start: 04-30-2023 [facility] Start: 04-24-2023 [facility] Start: 04-24-2023 End: 04-24-2023 [facility] Start: 04-20-2023 End: 04-20-2024 hCG, quantitative [facility] Work Phone: Comment on above: Ordered: 04/20/2023 Expected: 04/20/2023 (Approximate), Expires: 04/20/2024 Start: 04-13-2023 End: 04-13-2023 Patient encounter procedure 04/13/2023 9:45 AM EST Office Visit [facility] [address] [place] [phone] Nils Sarkar MD [address] [place] [address] [facility] Start: 04-13-2023 End: 04-13-2023 Professional / ancillary services management 04/13/2023 9:30 AM EST Ancillary Procedure [facility] [address] [place] [address] [facility] Basophils [#/volume] in Blood by Automated count [facility] Basophils/100 leukoc ytes in Blood by Automated count [facility] Eosinophils/100 leukocytes in Blood by Automated count [facility] Erythrocyte distribu tion width [Ratio] by Automated count [facility] Erythrocytes [#/volu me] in Blood [facility] Hematocrit [Volume Fraction] of Blood [facility] Hemoglobin [Mass/vol ume] in Blood [facility] Leukocytes [#/volume ] corrected for nucleated erythrocytes in Blood by Automated coun [facility] Leukocytes [#/volume ] in Blood [facility] Lymphocytes [#/volum e] in Blood by Automated count [facility] Lymphocytes/100 leukocytes in Blood by Automated count [facility] MCH [Entitic mass] b y Automated count [facility] MCHC [Mass/volume] b y Automated count [facility] MCV [Entitic volume] by Automated count [facility] Monocytes [#/volume] in Blood by Automated count [facility] Monocytes/100 leukoc ytes in Blood by Automated count [facility] MYCOPLASMA/UREAPLASM A PANEL MYCOPLASMA/UREAPLASMA PANEL Lab Routine Vaginal discharge Ordered: 04/20/2023 [facility] Comment on above: Ordered: 04/20/2023 Neutrophils [#/volum e] in Blood by Automated count [facility] Neutrophils/100 leukocytes in Blood by Automated count [facility] Nucleated erythrocyt es [Presence] in Blood by Automated count [facility] Patient Education [facility] Work Phone: Patient referral [facility] Work Phone: Platelet mean volume [Entitic volume] in Blood by Automated count [facility] Platelets [#/volume] in Blood [facility] Payers Date Payer Category Payer Self-pay 2023 Unknown BCBS BCBS xxxxxx [id number] 2023-Present [phone] [address] [place] [address] [id number] 2023 Unknown [id number] 1998 Unknown [id number] [id number] 1998 Unknown [id number] 2.16.840.1.373267.3.579.2.593 1998 Unknown [id number] 2.16.840.1.639499.3.579.2.593 1998 Unknown [id number] 2.16.840.1.294435.3.579.2.593 1998 Unknown [id number] 2.16.840.1.164596.3.579.2.593 1998 Unknown [id number] 2.16.840.1.326260.3.579.2.593 1998 Unknown [id number] 2.16.840.1.164265.3.579.2.593 1998 Unknown [id number] 2.16.840.1.607811.3.579.2.593 1998 Unknown [id number] 2.16.840.1.653679.3.579.2.593 1998 Unknown [id number] 2.16.840.1.471439.3.579.2.1259 1998 Unknown [id number] 2.16.840.1.896717.3.579.2.1259 1998 Unknown [id number] 2.16.840.1.374985.3.579.2.1259 1998 Unknown [id number] 2.16.840.1.461704.3.579.2.1259 1998 Unknown [id number] 2.16.840.1.543425.3.579.2.1259 1998 Unknown [id number] 2.16.840.1.692307.3.579.2.1259 1959 Unknown [id number] 1959 Unknown [id number] Unknown [id number] 2.16.840.1.126186.3.579.2.531 Unknown [id number] 2.16.840.1.539988.3.579.2.531 Unknown [id number] 2.16.840.1.592424.3.579.2.531 Social History Date Type Detail Facility Start: 08-13-2022 End: 04-30-2023 Tobacco smoking status IAIS Never smoked tobacco [facility] Start: 08-13-2022 Tobacco use and exposure Smokeless tobacco non-user [facility] Start: 04-07-2023 End: 04-20-2023 Alcohol intake Ex-drinker (finding) [facility] Start: 08-13-2022 End: 04-13-2023 History of Social function [facility] Start: 08-13-2022 End: 04-13-2023 Tobacco use panel [facility] Start: 08-13-2022 Alcohol Comment none with [facility] Start: 2000 Sex Assigned At Not on file N [facility] The thought of harmi ng myself has occurred to me Never [facility] Start: 1998 Sex Assigned At Female F [facility] Goals Date Patient Goal Desired Activity /State Functional Status Date Assessment Result Facility 04-29-2023 Functional status Patient at Baseline [facility] Work Phone: Mental Status Date Assessment Result Facility 04-29-2023 Cognitive function Cognitive Sta tus Patient at Baseline [facility] Work Phone: History and physical note 04-30-2023 Note Date & Type Note Facility 04-30-2023 History and physical note Note Date/Time April 29, 2023 10:09pm [facility] [address] [place] [address] [employer] History & Physical Signed Patient: Sarah Arce MR#: [id number] : 2000 Acct:[id number] Age/Sex: 23 / F Adm Date: 4 Loc: Room: [address] [place] [address] Type: REG CLI Attending Dr: Nils Sarkar MD Copies to: NO FAMILY PHYSICIAN Nils Sarkar MD-NOMS~ Date of Service: 04/29/2023 [facility] - HPI History of Present Illness Chief [...] negative unless noted below or in HPI [facility] Medical History (Updated 04/29/23 @ 22:08 [...] 1,000 mls @ 125 mls/hr IV .Q8H [facility] Stop: 04/28/24 16:59 Last Admin: 04/29/23 17:50 Dose: 125 mls/hr Cefazolin Sodium (Ancef) 2 gm in 50 mls @ 100 mls/hr IV Q8H [facility] Last Admin: 04/29/23 17:51 Dose: 100 mls/hr Oxytocin 40 unit/ Lactated (Ringer's) 504 mls @ 150 mls/hr IV .Q3H22M ONE; Protocol Stop: 04/30/23 02:21 Misoprostol (Misoprostol 200 Mcg Tablet) 800 mcg VAGINAL Q4H [facility] Stop: 04/30/23 02:31 [facility] - Exam Physical Exam Vital signs: Temp [...] Routine Psychiatric Exam Psychiatric: Present normal affect [facility] - Results Laboratory Results - Last 48 hrs. 04/29/23 20:27: Blood Type Recheck A Positive 04/29/23 17:45: HCG, Quant 3230.00 04/29/23 17:31: Corrected WBC 13.6 H, Uncorrected WBC Count 13.6 H, RBC 4.93, Hgb 13.3, Hct 39.8, MCV 80.8, MCH 27.0, MCHC 33.5, RDW 13.9, Plt Count 369, MPV 7.0, Neut % (Auto) 77.6, Lymph % (Auto) 17.0, Stan[place] % (Auto) 4.0, Eos % (Auto) 1.1, Baso % (Auto) 0.3, Nucleat RBC Rel Count 0.2, Neut # (Auto) 10.6 H, Lymph #(Auto) 2.3, Stanly # (Auto) 0.5, Eos # (Auto) 0.2, Baso # (Auto) 0.0, Blood Type APositive, Antibody Screen Negative Diagnostic Imaging Comments: 2.1 cm uterine complex with vascularization, essentially unchanged from yesterday [facility] - A/P (1) Vaginal bleeding: Plan Failed Cytotec evacuation of uterine tissue Suction D&C D&C Documented By: Nils Sarkar MD-JODEE 04/29/23 22 06 Signed By: <Electronically signed by CHUCK Sarkar> 04/30/23 0702 [facility] Work Phone: History of Present illness [...] Evaluation note No assessment information availa ble [facility] Work Phone: Evaluation note Note Date & Type Note Facility Evaluation note Diagnosis Onset Date Vaginal bleeding acute [facility] Work Phone: Hospital Discharge instructions Note Date & Type Note Facility Hospital Discharge instructions Additional Instructions [employer] Call for heavy bleeding FOLLOW UP Thursday 10 am [facility] Work Phone: Summary Purpose Family History [...] DATE CREATED AUTHOR AUTHOR'S ORGANIZ ATION 10/24/2023 [facility] EPIC DATE CREATED AUTHOR AUTHOR'S ORGANIZ ATION 11/23/2023 [facility] Reason for Visit (unrecogniz ed section and content) Reason Comments Care Care Teams (unrecognized sec tion and content) Personnel Security Assistant Relationship Specialty Start Date End Date Unallocated, [facility] Provider [address] [place] [id number] PCP - General Family Medicine 04/13/23 Team [...] BE BASED ON THE PRIMARY CLINICAL RECORDS. [facility] [employer] provides no warranty or guarantee of the accuracy or completeness of information in this document.
[2023-12-08 11:42] LABS: HCG Quantitative 16 mIU/mL
== END 2023-12-08 10:56 | disposition home or self-care (01) ==
PROVIDERS: Visit Provider Obstetrics & Gynecology
DX: N92.6 Irregular menstruation, unspecified (principal)
CPT/HCPCS: 36415; 84702

== ENCOUNTER 2023-12-16 07:20 | Outpatient (RCR) | payer BC, SELFPAY ==
[2023-12-16 08:26] LABS: HCG Quantitative 5 mIU/mL
== END 2024-01-07 12:04 | disposition home or self-care (01) ==
LOC: LAB 07:20
PROVIDERS: Visit Provider Obstetrics & Gynecology
DX: N92.6 Irregular menstruation, unspecified (principal)
CPT/HCPCS: 36415; 84702

== ENCOUNTER 2024-05-09 11:56 | Outpatient (OUT) | payer BC, SELFPAY ==
--- OUTSIDE RECORDS SUMMARY | 2024-05-09 11:24 | XMS_ITS | CCD ---
Author Organization [facility] CliniSyak Care Team Providers Care Signal Technician Name Role Phone AICHHOLZ, CAPITAL EQUIPMENT SPECIALIST ALINA Primary Care Unavailable KOFI CURRIE Consulting Unavailable KOFI CURRIE Admitting Unavailable KOFI CURRIE Attending Unavailable AICHHOLZ, CAPITAL EQUIPMENT SPECIALIST ALINA Primary Care Unavailable QUIQUE, DR KECIA Devi Consulting Unavailable KOFI CURRIE Attending Unavailable KOFI CURRIE Admitting Unavailable KOFI CURRIE Consulting Unavailable KOFI CURRIE Attending [facility]available [facility] DR MADRID Referring Unavailable AICHHOLZ, CAPITAL EQUIPMENT SPECIALIST ALINA Primary Care Unavailable KOFI CURRIE Consulting Unavailable KOFI CURRIE Admitting Unavailable KARASIK, DR STRONG Attending Unavailable AICHHOLZ, CAPITAL EQUIPMENT SPECIALIST ALINA Primary Care Unavailable KARASIK, DR STRONG Consulting Unavailable KARASIK, DR STRONG Admitting Unavailable KARASIK, DR STRONG Procedure Practitioner Unava ilable KOFI CURRIE Consulting Unavailable KOFI CURRIE Attending Unavailable AICHHOLZ, CAPITAL EQUIPMENT SPECIALIST ALINA Primary Care Unavailable KOFI CURRIE Admitting Unavailable AICHHOLZ, CAPITAL EQUIPMENT SPECIALIST ALINA Primary Care Unavailable KARASIK, DR STRONG Consulting Unavailable KARASIK, DR STRONG Admitting Unavailable KARASIK, DR STRONG Attending Unavailable KOFI CURRIE Consulting Unavailable KOFI CURRIE Attending Unavailable AICHHOLZ, CAPITAL EQUIPMENT SPECIALIST ALINA Primary Care Unavailable KOFI CURRIE Admitting Unavailable AICHHOLZ, CAPITAL EQUIPMENT SPECIALIST ALINA Primary Care Unavailable KOFI CURRIE Consulting Unavailable KOFI CURRIE Admitting Unavailable KOFI CURRIE Attending Unavailable AICHHOLZ, CAPITAL EQUIPMENT SPECIALIST ALINA Admitting Unavailable AICHHOLZ, CAPITAL EQUIPMENT SPECIALIST ALINA Attending Unavailable AICHHOLZ, CAPITAL EQUIPMENT SPECIALIST ALINA Consulting Unavailable AICHHOLZ, CAPITAL EQUIPMENT SPECIALIST ALINA Primary Care Unavailable Unavailable Primary Care Provider Unavailabl e Unallocated, Noms Provider Primary Care Provider MD Dawn Sarkar Attending Provider NO FAMILY, PHYSICIAN Primary Care Provider Unava ilable NO FAMILY, PHYSICIAN Primary Care Provider Unava ilable DO Newton Carter Attending Provider [phone] NO FAMILY, PHYSICIAN Primary Care Unavailable Dawn Sarkar Admitting Unavailable Dawn Sarkar Attending Unavailable NO FAMILY, PHYSICIAN Primary Care Unavailable Dawn Sarkar Admitting Unavailable Dawn Sarkar Attending Unavailable Newton Carter Admitting Unavailable Newton Carter Attending Unavailable NO FAMILY, PHYSICIAN Primary Care Unavailable Unallocated MD, Jodee Provider Primary Care Provi kristopher Unallocated MD, Jodee Provider Primary Care Provi kristopher Dawood MASSEY, Angel Primary Care Provider Nadir MEDICAL DIAGNOSTIC RADIOGRAPHER, Alina Unavailable DAWN SARKAR Attending Unavailable DAWN SARKAR Attending Unavailable DAWN SARKAR Attending Unavailable DAWN SARKAR Attending Unavailable SARAH KERN Attending Unavailable Medications Current Medications Medication Drug [...] Every 6 hours April 24, 2023 1:00am 24 hr metFORMIN hydrochloride 500 mg extended release oral tablet (4 sources) Biguanide Start: 01-06-2024 End: 12-31-2024 take 1 tablet by mouth every twenty-four hours at mealtime metFORMIN XR (Glucophage-XR) 500 MG 24 hr tablet Indications: Encounter for weight management Take 1 tablet (500 mg) by mouth in the evening. Take with meals Do not crush, chew, or split. 30 tablet 11 01/06/2024 12/31/2024 Active ondansetron 4 mg disintegrating oral tablet (3 sources) Serotonin-3 Receptor Antagonist Start: 04-07-2024 End: 05-07-2024 take 1 tablet by mouth every six hours for nausea ondansetron ODT (Zofran-ODT) 4 MG disintegrating tablet Indications: Nausea and vomiting in Take 1 tablet (4 mg) by mouth every 6 (six) hours if needed for nausea or vomiting 30 tablet 1 04/07/2024 05/07/2024 Active Start: 04-14-2023 take 1 tablet by annia th every six hours as needed for nausea and nausea and nausea ondansetron (Zofran) 4 MG tablet Indications: Nausea Take 1 tablet (4 mg) by mouth every 6 (six) hours if needed for nausea for up to 20 doses 20 tablet 0 04/14/2023 Active MV & Min w/FA-DHA ( Gummies) 0.18-25 MG chewable tablet (2 sources) Start: 04-07-2024 MV & Min w/FA-DHA ( Gummies) 0.18-25 MG chewable tablet Indications: Encounter for supervision of normal first in first trimester Chew 1 tablet Daily 30 tablet 11 04/07/2024 Active Completed/Discontinued Medications Medication Drug Class(es) Dates [...] Problem Classification Problem Date Documented Date Episodic/Chronic Administrative/social admission (2 sources) Patient encounter status; Translations: [Persons encountering health services in other specified circumstances] 01-06-2024 Episodic Conditions associated with dizziness or vertigo (1 source) Dizziness and giddiness; Translations: [DIZZINESS AND GIDDINESS] Onset: 09-04-2020 Episodic Hemorrhage during ; abruptio placenta; placenta previa (2 sources) Antepartum hemorrhage; Translations: [Hemorrhage in early , unspecified] 04-20-2023 Episodic Menstrual disorders (1 source) Missed period; Translations: [Irregular menstruation, unspecified] 04-07-2024 Chronic Mood disorders (1 source) Major depressive disorder, single episode, unspecified; Translations: [SOHA DEPRESS D/O SINGLE EPIS UNS] Onset: 10-05-2020 Chronic OB-related trauma to perineum and vulva (1 source) First degree perineal laceration during delivery; Translations: [FIRST DEG PERINEAL LAC DUR DELIV] Onset: 10-05-2020 Episodic Other aftercare (2 sources) Postoperative visit; Translations: [Encounter for other specified surgical aftercare] 01-06-2024 Episodic Other complications of ; puerperium affecting [...] TRI] Onset: 09-06-2020 Episodic Other complications of (1 source) Vomiting of , unspecified; Translations: [Unspecified vomiting of , unspecified as to episode of care or not applicable] 04-07-2024 Episodic Other female genital disorders (4 sources) Vaginal bleeding; Translations: [Abnormal uterine and vaginal bleeding, unspecified] Onset: 02-16-2024 04-29-2023 Chronic Other female genital disorders (2 [...] 10-05-2020 Chronic Other and delivery including normal (11 sources) Encounter for routine follow-up; Translations: [Single [...] Test Name Value Interpretation Reference Range Facility HCG ( test) Ql (U)o n 04-07-2024 Interpretation and review of laboratory results Abnormal [facility] Preg Test, Ur Positive Negative [facility] OB TRANSVAGINALon 025 OB TRANSVAGINAL TITLE OF EXAM: OB Ultrasound: REASON FOR EXAM: Dating COMPARISON: None. TECHNIQUE: Grayscale and M-mode Doppler imaging is performed. FINDINGS: Measurements: heart rate: 152 bpm Sac: 2.3 cm CRL: 1.2 cm GA for sonogram: 7.4 wk (06.8-08.0) Cervix length: 4.7 cm YUE: 11/21/2024 Anatomy Observed: Gestational Sac: Visualized Yolk Sac: Visualized Pole: Visualized Cardiac Activity: Visualized 152 bpm Uterus: Normal Uterine Position: Anteverted, anteflexed Right Ovary: 3.1 x 2.6 x 2.6 cm Volume: Corpus luteal Left Ovary: 2.6 x 2.1 x 1.8 cm Volume: 5.6 cc Cervical Length: 4.7 cm Closed Endovaginal exam was performed. The right ovary is prominent with a circumscribed hyperechoic focus present consistent with a corpus luteum cyst. Gestational age 9 weeks 5 days based on LMP. YUE November 05, 2024. AUA based on today's ultrasound 7 weeks 3 days. YUE November 21, 2024. IMPRESSION: 1. Single living intrauterine gestation. 7 weeks 3 days gestational age based on sonographic measurements. YUE November 21, 2024. Follow-up ultrasound at 20 to 22 weeks gestational age for growth and anatomy recommended. 2. Right corpus luteal cyst. *This report is generated using voice recognition reporting (HealthTeacher / GoNoodle). On occasion [employer]acher / GoNoodle erroneously drops words from the report or replaces the spoken word with similar sounding words. Please call with any questions/concerns regarding this report.* Dictated and transcribed 04/07/24/dpd This report has been electronically signed and approved by the interpreting radiologist. Normal Not Available Comment on above: Order Comment: US OB TRANSVAGINAL No LMP recorded. Urinalysis macro (dipstick) panel (U)on 04-07-2024 Bilirubin, UA Negative Negative - 4(70) +++ mg/dL [facility] Blood, UA Positive Negative - 50 Sherman/mcL [facility] Comment on above: trace Clarity, UA Clear [facility] Color, UA Yellow [facility] Glucose, UA Negative Negative - 2000(110) ++++ mg/dL [facility] Interpretation and review of laboratory results Abnormal [facility] Ketones, UA Positive Negative - 160(16) ++++ mg/dL [facility] Comment on above: trace Leukocytes, UA Trace Negative - 500+++ Jackie/mcL [facility] Nitrite, UA Negative Negative - Positive [facility] pH, UA 5.5 5 - 9 [facility] Protein, UA Trace Negative - 2000(20) ++++ mg/dL [facility] Spec Grav, UA 1.03 1 - 1.03 [facility] Urobilinogen, UA 0.2 0.2 - 12 mg/dL [facility] PREG QUANT HCGon 024 HCG QUANTITATIVE 5 mIU/mL [facility] Comment on above: 5-50 0.2-1 WEEK 50-500 1-2 WEEKS 100-5,000 2-3 WEEKS 500-10,000 3-4 WEEKS 1,000-50,000 4-5 WEEKS 10,000-100,000 5-6 WEEKS 15,000-200,000 6-8 WEEKS 10,000-100,000 2-[facility] 024 HCG QUANTITATIVE 16 mIU/mL [facility] Comment on above: 5-50 0.2-1 WEEK 50-500 1-2 WEEKS 100-5,000 2-3 WEEKS 500-10,000 3-4 WEEKS 1,000-50,000 4-5 WEEKS 10,000-100,000 5-6 WEEKS 15,000-200,000 6-8 WEEKS 10,000-100,000 2-[facility] 024 HCG QUANTITATIVE 70 mIU/mL [facility] Comment on above: 5-50 0.2-1 WEEK 50-500 1-2 WEEKS 100-5,000 2-3 WEEKS 500-10,000 3-4 WEEKS 1,000-50,000 4-5 WEEKS 10,000-100,000 5-6 WEEKS 15,000-200,000 6-8 WEEKS 10,000-100,000 2-3 [facility] CBC WITH AUTO DIFFon BASOPHILS ABSOLUTE AUTO 0.0 [facility] Basophils/100 WBC (Bld) 0.2 % 0.2 - 2.0 % [facility] Eosinophils/100 WBC (Bld) 0.7 % Low 0.9 - 7.0 % [facility] Erythrocyte distribution width (RBC) [Ratio] 13.3 % 11.0 - 15.0 % [facility] Hematocrit (Bld) [Volume fraction] 37.9 % 36.0 - 48.0 % [facility] Hemoglobin (Bld) [Mass/Vol] 13.0 g/dL 12.0 - 16.0 g/dL [facility] IMMATURE GRANULOCYTES ABS AUTO 0.03 [facility] Immature granulocytes/100 WBC (Bld) 0.3 % 0.0 - 0.5 % [facility] Interpretation and review of laboratory results Abnormal [facility] LYMPHOCYTES ABSOLUTE AUTO 1.7 [facility] Lymphocytes/100 WBC (Bld) 14.9 % Low 20.5 - 60.0 % [facility] MCH (RBC) [Entitic mass] 27.6 pg 26.7 - 34.0 pg [facility] MCHC (RBC) [Mass/Vol] 34.3 g/dL 29.9 - 35.2 g/dL [facility] MCV (RBC) [Entitic vol] 80.5 fL Low 81.0 - 99.0 fL [facility] MONOCYTES ABSOLUTE AUTO 0.6 [facility] Monocytes/100 WBC (Bld) 5.6 % 1.7 - 12.0 % [facility] NEUTROPHILS ABSOLUTE AUTO 8.7 High [facility] Neutrophils/100 WBC (Bld) 78.3 % High 43.0 - 75.0 % [facility] Platelet mean volume (Bld) [Entitic vol] 9.1 fL Low 9.5 - 13.5 fL [facility] EO # 0.1 [facility] PLT 297 [facility] TB RBC 4.71 [facility] TB WBC 11.1 High [facility] CLINISYNC [facility] Leif 11-13-2023 L Specimen: [id number] Received: 11/16/23 Status: RUBINA Sharpe Num: [id number] Spec Type: Surgical Subm Dr: Newton Carter Tissues: A Products of Conception - Spontaneous or Missed (POC MOLAR Procedures: HE/3, Gross/Micro L4 Age/ Patient Sex Location Account Attending Physician Sarah Arce 23/F [id number] Newton Carter SPEC NUM: [id number] RECD: 11/16/23 [facility]: [id number] MARY: 11/13/[address]: Newton Carter ENTERED: 11/16/23 [facility] DR: Myriam,Lab SPEC TYPE: Surgical DEPT: [facility]OD ENTERED BY: [id number] RECV BY: [id number] ORDERED: HE/3, Gross/Micro L4 ORDERED: HE/3, Gross/Micro [...] the complete mole Clinical Information Molar Specimen: [id number] Received: 11/16/23 Status: RUBINA Sharpe Num: [id number] Spec Type: Surgical Subm Dr: Newton Carter Tissues: A Products of Conception - Spontaneous or Missed (POC MOLAR Procedures: /3, Gross/Micro L4 Patient: Sarah Arce [id number] (Continued) Specimen: [id number] Received: 11/16/23 (Continued) Signed (signature on file) Antonia Camarena MD 11/21/23 1057 Specimen: [id number] Received: 11/16/23 Status: RUBINA Sharpe Num: [id number] Spec Type: Surgical Subm Dr: Newton Carter Tissues: A Products of Conception - Spontaneous or Missed (POC MOLAR Procedures: /3, Gross/Micro L4 Patient: Sarah Arce [id number] (Continued) Specimen: [id number] Received: 11/16/23 (Continued) Gross Description The specimen was received in formalin with the patient's name and products of conception and consists of multiple jasmine-pink hemorrhagic soft tissue fragments measuring 12.0 x 11.0 x 1.5 cm in aggregate. Multiple cystic structures are identified ranging in size from 0.1 to 0.5 cm. The cysts are filled with a clear fluid. Grain Trimmer sections of the cystic structures are submitted in cassettes A1-A3 DM Microscopic Description Microscopic examinations are performed supporting the above interpretation CPT Codes 90472 Specimen: [id number] Received: 11/16/23 Status: RUBINA Sharpe Num: [id number] Spec Type: Surgical Subm Dr: Newton Carter Tissues: A Products of Conception - Spontaneous or Missed (POC MOLAR Procedures: RYAN/Michael Beltrán/Lisa L4 Patient: Sarah Arce [id number] (Continued) Signed (signature on file) Antonia Camarena MD 11/21/23 1057 Normal [facility] ALL CBC WITH AUTO DIFFon BASOPHILS ABSOLUTE AUTO 0.0 [facility] Basophils/100 WBC (Bld) 0.2 % 0.2 - 2.0 % [facility] Eosinophils/100 WBC (Bld) 1.3 % 0.9 - 7.0 % [facility] Erythrocyte distribution width (RBC) [Ratio] 13.3 % 11.0 - 15.0 % [facility] Hematocrit (Bld) [Volume fraction] 37.4 % 36.0 - 48.0 % [facility] Hemoglobin (Bld) [Mass/Vol] 12.6 g/dL 12.0 - 16.0 g/dL [facility] IMMATURE GRANULOCYTES ABS AUTO 0.02 [facility] Immature granulocytes/100 WBC (Bld) 0.2 % 0.0 - 0.5 % [facility] Interpretation and review of laboratory results Abnormal [facility] LYMPHOCYTES ABSOLUTE AUTO 1.4 [facility] Lymphocytes/100 WBC (Bld) 12.1 % Low 20.5 - 60.0 % [facility] MCH (RBC) [Entitic mass] 27.0 pg 26.7 - 34.0 pg [facility] MCHC (RBC) [Mass/Vol] 33.7 g/dL 29.9 - 35.2 g/dL [facility] MCV (RBC) [Entitic vol] 80.1 fL Low 81.0 - 99.0 fL [facility] MONOCYTES ABSOLUTE AUTO 0.7 [facility] Monocytes/100 WBC (Bld) 6.4 % 1.7 - 12.0 % [facility] NEUTROPHILS ABSOLUTE AUTO 9.2 High [facility] Neutrophils/100 WBC (Bld) 79.8 % High 43.0 - 75.0 % [facility] Platelet mean volume (Bld) [Entitic vol] 9.1 fL Low 9.5 - 13.5 fL [facility] PLT 284 [facility] RBC 4.67 [facility] WBC 11.5 High [facility] Automated basophil %Ordered By: CHUCK Sarkar on 04-30-2023 Basophils/100 WBC (Bld) 0.7 % Normal . [facility] Comment on above: Performed By: #### C BC, HCGQNT #### [facility] [address] Automated basophil countOrde red By: CHUCK Sarkar on 04-30-2023 Basophils (Bld) [#/Vol] 0.1 10*3/uL Normal 0.0-0.2 [facility] Comment on above: Result Comment: PERF ORMED BY: [place] [address] PATHOLOGIST SAW EDGE FUSER CIRCULAR CHUY PALOMO M.D. Performed By: #### C BC, HCGQNT #### [address] Automated blood monocyte cou ntOrdered By: CHUCK Sarkar on 04-30-2023 Monocytes (Bld) [#/Vol] 0.5 10*3/uL Normal 0.0-0.8 [facility] Comment on above: Performed By: #### C BC, HCGQNT #### [address] Automated eosinophil %Ordere d By: CHUCK Sarkar on 04-30-2023 Eosinophils/100 WBC (Bld) 1.3 % Normal . [facility] Comment on above: Performed By: #### C BC, HCGQNT #### [address] Automated eosinophil countOr dered By: CHUCK Sarkar on 04-30-2023 Eosinophils (Bld) [#/Vol] 0.1 10*3/uL Normal 0.0-0.45 [facility] Comment on above: Performed By: #### C BC, HCGQNT #### [address] Automated monocyte %Ordered By: CHUCK Sarkar on 04-30-2023 Monocytes/100 WBC (Bld) 6.3 % Normal . [facility] Comment on above: Performed By: #### C BC, HCGQNT #### [address] Automated neutrophil %Ordere d By: CHUCK Sarkar on 04-30-2023 Neutrophils/100 WBC (Bld) 63.0 % Normal . [facility] Comment on above: Performed By: #### C BC, HCGQNT #### [address] Choriogonadotropin.beta subu nit [Units/volume] in Serum or PlasmaOrdered By: SHANNON Sarkar on 04-30-2023 HCG.beta subunit Qn 2358.00 m[IU]/mL [facility] Comment on above: Approximate Approxim ate hCG Gestational Age Range (mIU/ml) (weeks)0.2-1 5-50 1-2 50-500 2-3 100-5,000 3-4 500-10,000 4-5 1,000-50,000 5-6 10,000-100,000 6-8 15,000-200,000 8-12 10,000-100,000 Complete Blood Count Auto Di ffon 04-30-2023 Mean Corpuscular HGB Conc 34.7 g/dL Normal 32.0-35.0 [facility] Comment on above: Performed By: #### C BC, HCGQNT #### [address] NRBC% 0.1 /100{WBC} Normal 0-0.5 [facility] Comment on above: Performed By: #### C BC, HCGQNT #### [address] Erythrocyte distribution wid th [Ratio] by Automated countOrdered By: CHUCK Sarkar on 04-30-2023 Erythrocyte distribution width (RBC) [Ratio] 14.1 % Normal 11.9-15.3 [facility] Comment on above: Performed By: #### C BC, HCGQNT #### [address] Erythrocytes [#/volume] in B lood by Automated countOrdered By: CHUCK Sarkar on 04-30-2023 RBC (Bld) [#/Vol] 4.40 10*6/uL Normal 3.60-5.00 [facility] Comment on above: Performed By: #### C BC, HCGQNT #### [place] [address] HCG,Quantitativeon HCG,Quantitative 2358.00 m[iU]/mL Normal Th e [facility] Comment on above: Result Comment: Appr oximate Approximate hCG Gestational Age Range (mIU/ml) (weeks) 0.2-1 5-50 1-2 50-500 2-3 100-5,000 3-4 500-10,000 4-5 1,000-50,000 5-6 10,000-100,000 6-8 15,000-200,000 8-12 10,000-100,000 PERFORMED BY: [place] [address] PATHOLOGIST SAW EDGE FUSER CIRCULAR CHUY PALOMO M.D. Performed By: #### C BC, HCGQNT #### [address] Hematocrit [Volume Fraction] of Blood by Automated countOrdered By: CHUCK Sarkar on 04-30-2023 Hematocrit (Bld) [Volume fraction] 35.3 % Normal 34.0-46.4 [facility] Comment on above: Performed By: #### C BC, HCGQNT #### [address] Hemoglobin [Mass/volume] in BloodOrdered By: CHUCK Sarkar on 04-30-2023 Hemoglobin (Bld) [Mass/Vol] 12.2 g/dL Normal 11.8-15.4 [facility] Comment on above: Performed By: #### C BC, HCGQNT #### [place] [address] [place] Leif 04-30-2023 L Specimen: [id number] Received: 04/30/23 Status: RUBINA Rekathrin Num: [id number] Spec Type: Surgical Subm Dr: CHUCK Astorga Tissues: A Products of Conception - Spontaneous or Missed (PRODUCTS OF CONCEPT Procedures: HE/3, Gross/Micro L4 Age/ Patient Sex Location Account Attending Physician Sarah Arce 23/F N3 [id number] CHUCK Astorga SPEC NUM: [id number] RECD: 04/30/23 STATUS: RUBINA MAYNARDKathrin NUM: [id number] MARY: 04/30/23- [facility] DR: CHUCK Astorga ENTERED: 04/30/23 [facility] DR: SPEC TYPE: Surgical DEPT: S [...] is tentatively identified. tissue is not identified. Grain Trimmer sections focused on potential villi. Grain Trimmer sections are submitted in three cassettes labeled A1-A3. CPT Codes 12156 Specimen: [id number] Received: 04/30/23 Status: RUBINA Dell Num: [id number] Spec Type: Surgical Subm Dr: CHUCK Astorga Tissues: A Products of Conception - Spontaneous or Missed (PRODUCTS OF CONCEPT Procedures: HE/3, Gross/Micro L4 Patient: Sarah Arce [id number] (Continued) Signed (signature on file) Tavia Abad MD 05/05/23 2315 Normal [facility] Leukocytes [#/volume] correc bridget for nucleated erythrocytes in Blood by Automated counOrdered By: CHUCK Sarkar on 04-30-2023 WBC corrected for nucl RBC Auto (Bld) [#/Vol] 8.4 10*3/uL 3.8-11.6 [facility] Leukocytes [#/volume] in Blo od by Automated countOrdered By: CHUCK Sarkar on 04-30-2023 WBC (Bld) [#/Vol] 8.4 10*3/uL Normal 3.8-11.6 [facility] Comment on above: Performed By: #### C SINDI HCGQNT #### [facility] [address] [place] [address] [place] Lymphocytes [#/volume] in Bl ood by Automated countOrdered By: CHUCK Sarkar on 04-30-2023 Lymphocytes (Bld) [#/Vol] 2.4 10*3/uL Normal 1.00-4.8 [facility] Comment on above: Performed By: #### C SINDI, HCGQNT #### [facility] [address] [place] [address] [place] Lymphocytes/100 leukocytes i n Blood by Automated countOrdered By: CHUCK Sarkar on 04-30-2023 Lymphocytes/100 WBC (Bld) 28.7 % Normal . [facility] Comment on above: Performed By: #### C SINDI, HCGQNT #### [address] MCH [Entitic mass] by Automa bridget countOrdered By: CHUCK Sarkar on 04-30-2023 MCH (RBC) [Entitic mass] 27.8 pg Normal 24.7-34.3 [facility] Comment on above: Performed By: #### C SINDI, HCGQNT #### [address] MCHC Auto (RBC) [Mass/Vol]Or dered By: CHUCK Sarkar on 04-30-2023 MCHC (RBC) [Mass/Vol] 34.7 g/dL 32.0-35.0 [facility] MCV [Entitic volume] by Auto mated countOrdered By: CHUCK Sarkar on 04-30-2023 MCV (RBC) [Entitic vol] 80.2 fL Normal 80-100 [facility] Comment on above: Performed By: #### C SINDI, HCGQNT #### [address] Neutrophils [#/volume] in Bl ood by Automated countOrdered By: CHUCK Sarkar on 04-30-2023 Neutrophils (Bld) [#/Vol] 5.3 10*3/uL Normal 1.8-7.7 [facility] Comment on above: Performed By: #### C SINDI, HCGQNT #### [address] Nucleated erythrocytes [Pres ence] in Blood by Automated countOrdered By: CHUCK Sarkar on 04-30-2023 Nucleated RBC Auto Ql (Bld) 0.1 /100{WBC} 0-0.5 [facility] Platelet mean volume [Entiti c volume] in Blood by Automated countOrdered By: SHANNON Sarkar on 02-22-2024 Platelet mean volume (Bld) [Entitic vol] 6.7 fL Normal 6.3-10.7 [facility] Comment on above: Performed By: #### C BC, HCGQNT #### [facility] [address] Platelets [#/volume] in Bloo d by Automated countOrdered By: CHUCK Sarkar on 04-30-2023 Platelets (Bld) [#/Vol] 317 10*3/uL Normal 150-450 [facility] Comment on above: Performed By: #### C BC, HCGQNT #### [facility] [address] [place] [address] US transvaginalon 04-30-2023 US transvaginal [facility] [place] [address] [place] [address] Ultrasound Report Signed Patient: Sarah Arce MR#: [id number] : 2000 Acct:[id number] Age/Sex: 23 / F ADM Date: 04/29/23 Loc: Room: [address] [place] [address] Type: REG CLI Attending Dr: Dawn Sarkar MD Ordering Provider: CHUCK Astorga Date of Service: 04/30/23 US/US pelvic complete: D and C scheduled ([id number]) US/US transvaginal: PRODUCTS OF CONCEPTION WITH PRIOR [...] Usama Peña M.D.04/30/2023 9:37 AM Dictation Location: [place] [address] Tech: Anca Horn Transcribed By: GISSEL 04/30/2337 Dictated By: Usama Peña DO 04/30/2333 Signed By: 04/30/23936 Normal [facility] ABO/Rh Retypeon 04-29-2023 ABO/RH Recheck Result Positive Normal [facility] Comment on above: Result Comment: PERF ORMED BY: [place] [address] PATHOLOGIST SAW EDGE FUSER CIRCULAR CHUY PALOMO M.D. Complete Blood Count Auto Di ffon 04-29-2023 Basophils (Bld) [#/Vol] 0.0 10*3/uL Normal 0.0-0.2 [facility] Comment on above: Result Comment: PERF ORMED BY: [place] [address] PATHOLOGIST SAW EDGE FUSER CIRCULAR CHUY PALOMO M.D. Performed By: #### H CGQNT, CBC #### [address] Basophils/100 WBC (Bld) 0.3 % Normal . [facility] Comment on above: Performed By: #### H CGQNT, CBC #### [address] Eosinophils (Bld) [#/Vol] 0.2 10*3/uL Normal 0.0-0.45 [facility] Comment on above: Performed By: #### H CGQNT, CBC #### [address] Eosinophils/100 WBC (Bld) 1.1 % Normal . [facility] Comment on above: Performed By: #### H CGQNT, CBC #### [address] Erythrocyte distribution width (RBC) [Ratio] 13.9 % Normal 11.9-15.3 [facility] Comment on above: Performed By: #### H CGQNT, CBC #### [address] Hematocrit (Bld) [Volume fraction] 39.8 % Normal 34.0-46.4 [facility] Comment on above: Performed By: #### H CGQNT, CBC #### [address] Hemoglobin (Bld) [Mass/Vol] 13.3 g/dL Normal 11.8-15.4 [facility] Comment on above: Performed By: #### H CGQNT, CBC #### [address] Lymphocytes (Bld) [#/Vol] 2.3 10*3/uL Normal 1.00-4.8 [facility] Comment on above: Performed By: #### H CGQNT, CBC #### [address] Lymphocytes/100 WBC (Bld) 17.0 % Normal . [facility] Comment on above: Performed By: #### H CGQNT, CBC #### [address] MCH (RBC) [Entitic mass] 27.0 pg Normal 24.7-34.3 [facility] Comment on above: Performed By: #### H CGQNT, CBC #### [address] MCV (RBC) [Entitic vol] 80.8 fL Normal 80-100 [facility] Comment on above: Performed By: #### H CGQNT, CBC #### [address] Mean Corpuscular HGB Conc 33.5 g/dL Normal 32.0-35.0 [facility] Comment on above: Performed By: #### H CGQNT, CBC #### [address] Monocytes (Bld) [#/Vol] 0.5 10*3/uL Normal 0.0-0.8 [facility] Comment on above: Performed By: #### H CGQNT, CBC #### [place] [id number] [place] Monocytes/100 WBC (Bld) 4.0 % Normal . [facility] Comment on above: Performed By: #### H CGQNT, CBC #### [address] Neutrophils (Bld) [#/Vol] 10.6 10*3/uL High 1.8-7.7 [facility] Comment on above: Performed By: #### H CGQNT, CBC #### [address] Neutrophils/100 WBC (Bld) 77.6 % Normal . [facility] Comment on above: Performed By: #### H CGQNT, CBC #### [address] NRBC% 0.2 /100{WBC} Normal 0-0.5 [facility] Comment on above: Performed By: #### H CGQNT, CBC #### [address] Platelet mean volume (Bld) [Entitic vol] 7.0 fL Normal 6.3-10.7 [facility] Comment on above: Performed By: #### H CGQNT, CBC #### [place] [address] [place] Platelets (Bld) [#/Vol] 369 10*3/uL Normal 150-450 [facility] Comment on above: Performed By: #### H CGQNT, CBC #### [address] RBC (Bld) [#/Vol] 4.93 10*6/uL Normal 3.60-5.00 [facility] Comment on above: Performed By: #### H CGQNT, CBC #### [address] WBC (Bld) [#/Vol] 13.6 10*3/uL High 3.8-11.6 [facility] Comment on above: Performed By: #### H CGQNT, CBC #### [facility] [address] [place] [address] [place] HCG,Quantitativeon 4 HCG,Quantitative 3230.00 m[iU]/mL Normal [facility] e [facility] Comment on above: Result Comment: Appr oximate Approximate hCG Gestational Age Range (mIU/ml) (weeks) 0.2-1 5-50 1-2 50-500 2-3 100-5,000 3-4 500-10,000 4-5 1,000-50,000 5-6 10,000-100,000 6-8 15,000-200,000 8-12 10,000-100,000 PERFORMED BY: [place] [id number] PATHOLOGIST SAW EDGE FUSER CIRCULAR CHUY PALOMO M.D. Performed By: #### H CGQNT, CBC #### [facility] [address] [place], [place] [id number] [place] Type and Screenon 04-29-2023 ABO and Rh group Nom (Bld) Blood group A Rh(D) positive Normal [facility] Leif 04-24-2023 L Specimen: [id number] Received: 04/24/23 Status: RUBINA Sharpe Num: [id number] Spec Type: Surgical Subm Dr: Dawn Sarkar MD-JODEE Tissues: A Products of Conception - Spontaneous or Missed (POC) Procedures: HE/3, Gross/Micro L4 Age/ Patient Sex Location Account Attending Physician Sarah Arce 23/F [place] [id number] [place] [facility] SPEC NUM: [id number] RECD: 04/24/23 STATUS: RUBINA SHARPE NUM: [id number] MARY: 04/24/23- SUBM DR: MICHELE [facility] ENTERED: 04/24/23 [facility] DR: SPEC TYPE: Surgical DEPT: S ENTERED BY: [id number] RECV BY: [id number] ORDERED: HE/3, Gross/Micro L4 ORDERED: HE/3, Gross/Micro [...] foot length of 0.7 cm from heel-to-toe. Grain Trimmer sections are submitted in 3 cassettes as follows: A1-A2 - Villous tissue A3 - tissue CPT Codes 80946 Specimen: [id number] Received: 04/24/23 Status: RUBINA Dell Num: [id number] Spec Type: Surgical Subm Dr: Dawn Sarkar MD-NOMS Tissues: A Products of Conception - Spontaneous or Missed (POC) Procedures: HE/Jerel, Gross/Micro L4 Patient: Sarah Arce [id number] (Continued) Signed (signature on file) Tavia Abad MD 04/28/23 2321 Normal [facility] CBC AUTO DIFFon 10-02-2020 BASO # 0.0 103/ul Normal 0.0-0.1 [facility] Comment on above: Performed By: #### U MICRO, UACSIND #### [facility] [address] [place] [address] Vandana Indira Basophils/100 WBC (Bld) 0.1 % Critically low 0.2-2.0 [facility] Comment on above: Performed By: #### U MICRO, UACSIND #### [facility] [address] [place] [address] Vandanadave Jacobson EO # 0.0 103/ul Normal 0.0-0.7 [facility] Comment on above: Performed By: #### U MICRO, UACSIND #### [facility] [address] [place] [address] Vandanadave Jacobson Eosinophils/100 WBC (Bld) 0.0 % Critically low 0.9-7.0 [facility] Comment on above: Performed By: #### U MICRO, UACSIND #### [facility] [address] [place] [address] Vandana Jacobson Erythrocyte distribution width (RBC) [Ratio] 15.9 % Critically high 11.0-15.0 [facility] Comment on above: Performed By: #### U MICRO, UACSIND #### [facility] [address] [place] [address] Vandana Indira Hematocrit (Bld) [Volume fraction] 33.3 % Critically low 36.0-48.0 [facility] Comment on above: Performed By: #### U MICRO, UACSIND #### [facility] [address] [place] [address] Vandana Indira Hemoglobin (Bld) [Mass/Vol] 11.2 g/dL Critically low 12.0-16.0 [facility] Comment on above: Performed By: #### U MICRO, UACSIND #### [facility] [address] [place] [address] Vandana Indira IG # 0.07 10e3/ul Critically high 0.00-0.03 [facility] Comment on above: Performed By: #### U MICRO, UACSIND #### [facility] [address] [place] [address] Vandana Indira IG % 0.4 % Normal 0.0-0.[address] [facility] Comment on above: Performed By: #### U MICRO, UACSIND #### [facility] [address] [place] [address] Vandana Indira LYMPH # 1.9 103/ul Normal 1.2-3.[address] [facility] Comment on above: Performed By: #### U MICRO, UACSIND #### [facility] [address] [place] [address] Vandana Indira Lymphocytes/100 WBC (Bld) 11.4 % Critically low 20.5-60.[address] [facility] Comment on above: Performed By: #### U MICRO, UACSIND #### [facility] [address] [place] [address] Vandana Jacobson MANUAL DIFF REQ NO Normal [facility] Comment on above: Performed By: #### U MICRO, UACSIND #### [facility] [address] [place] [address] Vandana Indira MCH (RBC) [Entitic mass] 27.7 pg Normal 26.7-34.[address] [facility] Comment on above: Performed By: #### U MICRO, UACSIND #### [facility] [address] [place] [address] Vandanadave Jacobson MCHC (RBC) [Mass/Vol] 33.6 g/dL Normal 29.9-35.[address] [facility] Comment on above: Performed By: #### U MICRO, UACSIND #### [facility] [address] [place] [address] Vandana Jacobson MCV (RBC) [Entitic vol] 82.4 fL Normal 81.0-99.[address] [facility] Comment on above: Performed By: #### U MICRO, UACSIND #### [facility] [address] [place] [address] Vandanadave Jacobson MONO # 1.0 103/ul Critically high 0.3-0.8 [facility] Comment on above: Performed By: #### U MICRO, UACSIND #### [facility] [address] [place] [address] Vandana Indira Monocytes/100 WBC (Bld) 6.3 % Normal 1.7-12.[address] [facility] Comment on above: Performed By: #### U MICRO, UACSIND #### [facility] [address] [place] [address] Vandana Indira NEUT # 13.4 103/ul Critically high 1.4-6.[address] [facility] Comment on above: Performed By: #### U MICRO, UACSIND #### [facility] [address] [place] [address] Vandana Lien Neutrophils/100 WBC (Bld) 81.8 % Critically high 43.0-75.[address] [facility] Comment on above: Performed By: #### U MICRO, UACSIND #### [facility] [address] [place] [address] Vandana Jcaobson Platelet mean volume (Bld) [Entitic vol] 10.3 fL Normal 9.5-13.[address] [facility] Comment on above: Performed By: #### U MICRO, UACSIND #### [facility] [address] [place] [address] Vandana Indira PLT 202 103/ul Normal 150-[address] [facility] Comment on above: Performed By: #### U MICRO, UACSIND #### [facility] [address] [place] [id number] Vandana Indira RBC 4.04 106/ul Critically low 4.20-5.40 [facility] Comment on above: Performed By: #### U MICRO, UACSIND #### [facility] [address] [place], [place] [address] Vandana Jacobson WBC 16.4 103/ul Critically high 4.0-11.0 [facility] Comment on above: Performed By: #### U MICRO, UACSIND #### [facility] [address] [place] [address] Vandana Jacobson ASYMPTOMATIC COVID-19 ANTIGE Non 10-01-2020 EUA Statement SEE BELOW Normal [facility] Comment on above: Result Comment: This [...] sooner. Performed By: #### C VDAGA #### [facility] [address] [place] [address] Vandana Jcaobson SARS-CoV-2 (COVID-19) RNA RAMA+probe Ql (Unsp spec) Negative Normal NEGATIVE [facility] Comment on above: Result Comment: Nega tive results are presumptive. They do not preclude infection and should not be used as the sole basis for treatment decisions. Additional confirmatory testing by a molecular method should be considered. Performed By: #### C VDAGA #### [facility] [address] [place] [address] Vandana Jacobson CBC AUTO DIFFon 10-01-2020 BASO # 0.0 103/ul Normal 0.0-0.1 [facility] Comment on above: Performed By: #### D RUGRPD #### [facility] [address] [place] [address] Vandana Jacobson Basophils/100 WBC (Bld) 0.1 % Critically low 0.2-2.0 [facility] Comment on above: Performed By: #### D RUGRPD #### [facility] [address] [place], [place] [address] Vandana Indira EO # 0.0 103/ul Normal 0.0-0.7 [facility] Comment on above: Performed By: #### D RUGRPD #### [facility] [address] [place], [place] [address] Vandana Indira Eosinophils/100 WBC (Bld) 0.1 % Critically low 0.9-7.0 [facility] Comment on above: Performed By: #### D RUGRPD #### [facility] [address] [place] [address] Vandana Indira Erythrocyte distribution width (RBC) [Ratio] 15.8 % Critically high 11.0-15.0 [facility] Comment on above: Performed By: #### D JESID #### [facility] [address] [place] [address] Vandana Indira Hematocrit (Bld) [Volume fraction] 40.2 % Normal 36.0-48.0 [facility] Comment on above: Performed By: #### D JUDI #### [facility] [address] [place], [place] [address] Vandana Indira Hemoglobin (Bld) [Mass/Vol] 13.4 g/dL Normal 12.0-16.0 [facility] Comment on above: Performed By: #### D RUGRPD #### [facility] [address] [place] [address] Vandana Indira IG # 0.04 10e3/ul Critically high 0.00-0.03 [facility] Comment on above: Performed By: #### D JESID #### [facility] [address] [place], [place] [address] Vandana Indira IG % 0.4 % Normal 0.0-0.5 [facility] Comment on above: Performed By: #### D RUGRPD #### [facility] [address] [place], [place] [address] Vandana Indira LYMPH # 1.5 103/ul Normal 1.2-3.8 [facility] Comment on above: Performed By: #### D RUGRPD #### [facility] [address] [place], [place] [address] Vandana Jacobson Lymphocytes/100 WBC (Bld) 14.7 % Critically low 20.5-60.0 [facility] Comment on above: Performed By: #### D RUGRPD #### [facility] [address] [place], [place] [address] Vandana Jacobson MANUAL DIFF REQ NO Normal [facility] Comment on above: Performed By: #### D RUGRPD #### [facility] [address] [place], [place] [address] Vandana Jacobson MCH (RBC) [Entitic mass] 27.3 pg Normal 26.7-34.0 [facility] Comment on above: Performed By: #### D RUGRPD #### [facility] [address] [place] [address] Vandana Jacobson MCHC (RBC) [Mass/Vol] 33.3 g/dL Normal 29.9-35.[address] [facility] Comment on above: Performed By: #### D RUGRPD #### [facility] [address] [place], [place] [address] Vandana Jacobson MCV (RBC) [Entitic vol] 82.0 fL Normal 81.0-99.[address] [facility] Comment on above: Performed By: #### D RUGRPD #### [facility] [address] [place], [place] [address] Vandana Jacobson MONO # 0.5 103/ul Normal 0.3-0.[address] [facility] Comment on above: Performed By: #### D RUGRPD #### [facility] [address] [place], [place] [address] Vandana Jacobson Monocytes/100 WBC (Bld) 5.2 % Normal 1.7-12.0 [facility] Comment on above: Performed By: #### D RUGRPD #### [facility] [address] [place] [address] Vandana Indira NEUT # 8.1 103/ul Critically high 1.4-6.5 [facility] Comment on above: Performed By: #### D RUGRPD #### [facility] [address] [place], [place] [address] Vandana Jacobson Neutrophils/100 WBC (Bld) 79.5 % Critically high 43.0-75.0 [facility] Comment on above: Performed By: #### D RUGRPD #### [facility] [address] [place], [place] [address] Vandana Jacobson Platelet mean volume (Bld) [Entitic vol] 10.6 fL Normal 9.5-13.[address] [facility] Comment on above: Performed By: #### D RUGRPD #### [facility] [address] [place] [address] Vandanadave Jacobson PLT 256 103/ul Normal 150-[address] [facility] Comment on above: Performed By: #### D RUGRPD #### [facility] [address] [place] [address] Vandanadave Lien RBC 4.90 106/ul Normal 4.20-5.[address] [facility] Comment on above: Performed By: #### D RUGRPD #### [facility] [address] [place], [place] [address] Vandanadave Jacobson WBC 10.2 103/ul Normal 4.0-11.[address] [facility] Comment on above: Performed By: #### Ceci RUGRPD #### [facility] [address] [place], [place] [address] Vandana Jacobson DRUG SCREEN RAPID (URINE)on 10-01-2020 AMP Negative Normal NEGATIVE [facility] Comment on above: Performed By: #### D RUGRPD #### [facility] [address] [place], [place] [address] Vandanadave Jacobson BAR Negative Normal NEGATIVE [facility] Comment on above: Performed By: #### D RUGRPD #### [facility] [address] [place], [place] [address] Vandana Indira BUP Negative Normal NEGATIVE [facility] Comment on above: Performed By: #### D RUGRPD #### [facility] [address] [place] [address] Vandana Indira BZO Negative Normal NEGATIVE [facility] Comment on above: Performed By: #### D RUGRPD #### [facility] [address] [place] [address] Vandana Indira ROLANDA Negative Normal NEGATIVE [facility] Comment on above: Performed By: #### D RUGRPD #### [facility] [address] [place] [address] Vandana Indira CUT-OFFS SEE BELOW Normal [facility] Comment on above: Result Comment: AMP [...] ng/mL Performed By: #### D RUGRPD #### [facility] [address] [place] [address] Vandana Indira DRUG CUT HEADER DRUG CLASS TEST SYSTEM CUT-OFF CONCENTRATIONS ARE FOLLOWS: Normal [facility] Comment on above: Performed By: #### D RUGRPD #### [facility] [address] [place] [address] Vandana Indira mAMP Negative Normal NEGATIVE [facility] Comment on above: Performed By: #### D RUGRPD #### [facility] [address] [place] [address] Vandana Indira MTD Negative Normal NEGATIVE [facility] Comment on above: Performed By: #### D RUGRPD #### [facility] [address] [place] [address] Vandana Indira OPI Negative Normal NEGATIVE [facility] Comment on above: Performed By: #### D RUGRPD #### [facility] [address] [place], [place] [address] Vandana Indira OXY Negative Normal NEGATIVE [facility] Comment on above: Performed By: #### D RUGRPD #### [facility] [address] [place] [address] Vandana Indira PCP Negative Normal NEGATIVE [facility] Comment on above: Performed By: #### D RUGRPD #### [facility] [address] [place] [address] Vandana Indira PPX Negative Normal NEGATIVE [facility] Comment on above: Performed By: #### D RUGRPD #### [facility] [address] [place], [place] [address] Vandana Indira TCA Negative Normal NEGATIVE [facility] Comment on above: Performed By: #### D RUGRPD #### [facility] [address] [place], [place] [address] Vandana Indira THC Negative Normal NEGATIVE [facility] Comment on above: Performed By: #### D RUGRPD #### [facility] [address] [place], [place] [address] Vandana Indira TYPE AND SCREENon 10-01-2020 TYPE AND SCREEN Negative Normal [facility] Comment on above: Performed By: #### D RUGRPD #### [facility] [address] [place], [place] [address] Vandana Indira US PREG GROWTHon 09-12-2020 US [...] EFW: 6 lbs. 13 oz., 58% FL/AC: 0.104298 FL/BPD: 0.161686 HC/AC: 0.226093 GESTATIONAL AGE: Age by EDC: 36 weeks 6 days YUE by EDC: 10/04/2020 Age by US: 37 weeks 0 days YUE by US: 10/03/2020 IMPRESSION: Normal interval growth Electronically authenticated by: KECIA LEI Date: 2020-09-12 13:[address] [facility] HEMOGLOBINOPATHY FRACTIONATI ON CASCADEon 09-11-2020 HGB A 97.4 % Normal 96.4-98.8 [facility] Comment on above: Performed By: #### U MICRO, UACSIND #### [facility] [address] [place], [place] [address] Vandana Indira HGB A2 2.6 % Normal 1.8-3.[address] [facility] Comment on above: Performed By: #### U MICRO, UACSIND #### [facility] [address] [place], [place] [address] Vandana Indira HGB F 0.0 % Normal 0.0-2.[address] [facility] Comment on above: Performed By: #### U MICRO, UACSIND #### [facility] [address] [place], [place] [address] Vandana Indira HGB S 0.0 % Normal 0.[address] [facility] Comment on above: Performed By: #### U MICRO, UACSIND #### [facility] [address] [place], [place] [address] Vandana Indira Interpretation: Comment Normal [facility] Comment on above: Result Comment: Norm al hemoglobin present; no hemoglobin variant or thalassemia observed. Performed By: #### U MICRO, UACSIND #### [facility] [address] [place], [place] [address] Vandana Indira CBC AUTO DIFFon 09-10-2020 BASO # 0.0 103/ul Normal 0.0-0.[address] [facility] Comment on above: Performed By: #### C BC #### [facility] [address] [place], [place] [address] Vandana Indira Basophils/100 WBC (Bld) 0.1 % Critically low 0.2-2.0 [facility] Comment on above: Performed By: #### C BC #### [facility] [address] [place] [address] Vandana Indira EO # 0.0 103/ul Normal 0.0-0.[address] [facility] Comment on above: Performed By: #### C BC #### [facility] [address] [place] [address] Vandana Indira Eosinophils/100 WBC (Bld) 0.4 % Critically low 0.9-7.[address] [facility] Comment on above: Performed By: #### C BC #### [facility] [address] [place] [address] Vandana Indira Erythrocyte distribution width (RBC) [Ratio] 16.0 % Critically high 11.0-15.[address] [facility] Comment on above: Performed By: #### C BC #### [facility] [address] [place] [address] Vandana Indira Hematocrit (Bld) [Volume fraction] 36.5 % Normal 36.0-48.0 [facility] Comment on above: Performed By: #### C BC #### [facility] [address] [place], [place] [address] Vandana Indira Hemoglobin (Bld) [Mass/Vol] 12.2 g/dL Normal 12.0-16.[address] [facility] Comment on above: Performed By: #### C BC #### [facility] [address] [place], [place] [address] Vandana Indira IG # 0.07 10e3/ul Critically high 0.00-0.03 [facility] Comment on above: Performed By: #### C BC #### [facility] [address] [place] [address] Vandana Indira IG % 0.9 % Critically high 0.0-0.5 [facility] Comment on above: Performed By: #### C BC #### [facility] [address] [place], [place] [address] Vandana Indira LYMPH # 1.9 103/ul Normal 1.2-3.[address] [facility] Comment on above: Performed By: #### C BC #### [facility] [address] [place], [place] [address] Vandana Indira Lymphocytes/100 WBC (Bld) 23.7 % Normal 20.5-60.[address] [facility] Comment on above: Performed By: #### C BC #### [facility] [address] [place], [place] [address] Vandanadave Jacobson MANUAL DIFF REQ NO Normal [facility] Comment on above: Performed By: #### C BC #### [facility] [address] [place], [place] [address] Vandana Indira MCH (RBC) [Entitic mass] 27.4 pg Normal 26.7-34.[address] [facility] Comment on above: Performed By: #### C BC #### [facility] [address] [place] [address] Vandanadave Jacobson MCHC (RBC) [Mass/Vol] 33.4 g/dL Normal 29.9-35.[address] [facility] Comment on above: Performed By: #### C BC #### [facility] [address] [place] [address] Vandanadave Jacobson MCV (RBC) [Entitic vol] 82.0 fL Normal 81.0-99.[address] [facility] Comment on above: Performed By: #### C BC #### [facility] [address] [place] [address] Vandana Indira MONO # 0.7 103/ul Normal 0.3-0.[address] [facility] Comment on above: Performed By: #### C BC #### [facility] [address] [place] [address] Vandana Indira Monocytes/100 WBC (Bld) 8.8 % Normal 1.7-12.[address] [facility] Comment on above: Performed By: #### C BC #### [facility] [address] [place] [address] Vandana Indira NEUT # 5.3 103/ul Normal 1.4-6.[address] [facility] Comment on above: Performed By: #### C BC #### [facility] [address] [place], [place] [address] Vandana Indira Neutrophils/100 WBC (Bld) 66.1 % Normal 43.0-75.0 [facility] Comment on above: Performed By: #### C BC #### [facility] [address] [place] [address] Vandana Jacobson Platelet mean volume (Bld) [Entitic vol] 11.6 fL Normal 9.5-13.5 [facility] Comment on above: Performed By: #### C BC #### [facility] [address] [place] [address] Vandana Jacobson PLT 221 103/ul Normal 150-[address] [facility] Comment on above: Performed By: #### C BC #### [facility] [address] [place] [address] Vandana Indira RBC 4.45 106/ul Normal 4.20-5.40 [facility] Comment on above: Performed By: #### C BC #### [facility] [address] [place] [address] Vandana Jacobson WBC 8.1 103/ul Normal 4.0-11.0 [facility] Comment on above: Performed By: #### C BC #### [facility] [address] [place] [address] Vandana Jacobson VAGINITIS/VAGINOSIS DNA PROB Miller 09-08-2020 Nichole species Negative Normal Negative [facility] Comment on above: Performed By: #### V AGINT #### [facility] [address] [place] [address] Vandana Jacobson Gardnerella vaginalis Negative Normal Negative [facility] Comment on above: Performed By: #### V AGINT #### [facility] [address] [place] [address] Vandana Jacobson Trichomonas vaginalis Negative Normal Negative [facility] Comment on above: Performed By: #### V AGINT #### [facility] [address] [place] [address] Vandana Jacobson CHLAMYDIA/GONOCOCCUS RAMA (SW AB/URINE/PAPon 09-07-2020 Chlamydia trachomatis, RAMA Negative Normal Negative [facility] Comment on above: Performed By: #### D RUGRPD #### [facility] [address] [place] [address] Vandana Indira Neisseria gonorrhoeae, RAMA Negative Normal Negative [facility] Comment on above: Performed By: #### D RUGRPD #### [facility] [address] [place] [address] Vandana Jacobson GROUP B STREP CULTUREon -0 S. agalactiae Ag Ql (Unsp spec) Culture Observations: NEGATIVE FOR GROUP B STREPTOCOCCUS. Normal [facility] Comment on above: Performed By: #### D RUGRPD #### [facility] [address] [place] [address] Vandana Indira CULTURE URINEon 08-31-2020 CULTURE URINE Culture Observations: LIGHT GROWTH OF MIXED GENITAL TEDDY. NO POTENTIAL PATHOGENS SEEN. Normal [facility] Comment on above: Performed By: #### D RUGRPD #### [facility] [address] [place] [address] Vandana Indira UA (CLEAN/CATCH) BUSINESS RECORDS MANAGER/MICRO I F IND.on 08-31-2020 Bilirubin Ql (U) Negative Normal NEGATIVE [facility] Comment on above: Performed By: #### U MICRO, UACSIND #### [facility] [address] [place] [address] Vandana Indira Clarity (U) SL CLOUDY Abnormal CLEAR [facility] Comment on above: Performed By: #### U MICRO, UACSIND #### [facility] [address] [place] [address] Vandana Indira Color (U) LT. YELLOW Normal YELLOW [facility] Comment on above: Performed By: #### U MICRO, UACSIND #### [facility] [address] [place] [address] Vandana Indira Glucose Ql (U) Negative Normal NEGATIVE [facility] Comment on above: Performed By: #### U MICRO, UACSIND #### [facility] [address] [place] [address] Vandana Indira Hemoglobin Ql (U) Negative Normal NEGATIVE [facility] Comment on above: Performed By: #### U MICRO, UACSIND #### [facility] [address] [address] Vandana Indira Ketones Ql (U) 15 mg/dl Abnormal NEGATIVE [facility] Comment on above: Performed By: #### U MICRO, UACSIND #### [facility] [address] [place] [address] Vandana Indira LEUKOCYTES SMALL Abnormal NEGATIVE [facility] Comment on above: Performed By: #### U MICRO, UACSIND #### [facility] [address] [address] Vandana Indira Nitrite Ql (U) Negative Normal NEGATIVE [facility] Comment on above: Performed By: #### U MICRO, UACSIND #### [facility] [address] [place] [address] Vandana Indira pH (U) 7.0 [pH] Normal 5-[address] [facility] Comment on above: Performed By: #### U MICRO, UACSIND #### [facility] [address] [place] [address] Vandana Indira SPEC GRAVITY 1.015 Normal 1.005-<=1.025 [facility] Comment on above: Performed By: #### U MICRO, UACSIND #### [facility] [address] [place] [address] Vandana Indira UA PROTEIN Negative Normal NEGATIVE/ TRACE [facility] Comment on above: Performed By: #### U MICRO, UACSIND #### [facility] [address] [place] [address] Vandana Indira UR MICRO IND INDICATED Normal [facility] Comment on above: Performed By: #### U MICRO, UACSIND #### [facility] [address] [place] [address] Vandana Indira Urobilinogen Qn (U) 0.2 {Richard'U}/dL Normal 0.2 - 1. 0 [facility] Comment on above: Performed By: #### U MICRO, UACSIND #### [facility] [address] [place] [address] Vandana Indira URINE MICROSCOPIC ONLYon 06- 25-2021 BACTERIA SMALL Abnormal NONE SEEN [facility] Comment on above: Performed By: #### U MICRO, UACSIND #### [facility] [address] [place] [address] Vandana Indira Bacteria identified Cx Nom (U) INDICATED Normal [facility] Comment on above: Performed By: #### U MICRO, UACSIND #### [facility] [address] [place] [address] Vandana Indira CAST NONE SEEN Normal NONE SEEN [facility] Comment on above: Performed By: #### U MICRO, UACSIND #### [facility] [address] [place] [address] Vandana Indira Crystals LM Nom (Urine sed) NONE SEEN Normal NONE SEEN [facility] Comment on above: Performed By: #### U MICRO, UACSIND #### [facility] [address] [place] [address] Vandana Indira Epithelial cells LM Ql (Urine sed) MODERATE Abnormal NONE SEEN /RARE [facility] Comment on above: Performed By: #### U MICRO, UACSIND #### [facility] [address] [place] [address] Vandana Indira MUCOUS NONE SEEN Normal NONE SEEN [facility] Comment on above: Performed By: #### U MICRO, UACSIND #### [facility] [address] [place] [address] Vandana Indira RBC NONE SEEN Abnormal 0-[address] [facility] Comment on above: Performed By: #### U MICRO, UACSIND #### [facility] [address] [place] [address] Vandana Indira WBC NONE SEEN Normal NONE SEEN [facility] Comment on above: Performed By: #### U MICRO, UACSIND #### [facility] [address] [place] [address] Vandana Indira CULTURE URINEon 08-01-2020 CULTURE URINE Culture Observations: LIGHT GROWTH OF MIXED GENITAL TEDDY. NO POTENTIAL PATHOGENS SEEN. Normal [facility] Comment on above: Performed By: #### U RCX #### [facility] [address] [place] [address] Vandana Indira UA RANDOM W/MICROSCOPICon BACTERIA TRACE Abnormal NONE SEEN [facility] Comment on above: Performed By: #### U AMIC #### [facility] [address] [place] [address] Vandana Indira Bilirubin Ql (U) Negative Normal NEGATIVE [facility] Comment on above: Performed By: #### U AMIC #### [facility] [address] [place] [address] Vandana Indira CAST NONE SEEN Normal NONE SEEN [facility] Comment on above: Performed By: #### U AMIC #### [facility] [address] [place] [address] Vandana Indira Clarity (U) CLEAR Normal CLEAR [facility] Comment on above: Performed By: #### U AMIC #### [facility] [address] [place] [address] Vandana Indira Color (U) LT. YELLOW Normal YELLOW [facility] Comment on above: Performed By: #### U AMIC #### [facility] [address] [place] [address] Vandana Indira Crystals LM Nom (Urine sed) NONE SEEN Normal NONE SEEN [facility] Comment on above: Performed By: #### U AMIC #### [facility] [address] [place] [address] Vandana Indira Epithelial cells LM Ql (Urine sed) FEW Abnormal NONE SEEN /RARE [facility] Comment on above: Performed By: #### U AMIC #### [facility] [address] [place] [address] Vandana Indira Glucose Ql (U) Negative Normal NEGATIVE [facility] Comment on above: Performed By: #### U AMIC #### [facility] [address] [place] [address] Vandana Indira Hemoglobin Ql (U) Negative Normal NEGATIVE [facility] Comment on above: Performed By: #### U AMIC #### [facility] [address] [place] [address] Vandana Indira Ketones Ql (U) Negative Normal NEGATIVE [facility] Comment on above: Performed By: #### U AMIC #### [facility] [address] [place] [address] Vandana Indira LEUKOCYTES Negative Normal NEGATIVE [facility] Comment on above: Performed By: #### U AMIC #### [facility] [address] [place], [place] [address] Vandana Indira MUCOUS NONE SEEN Normal NONE SEEN [facility] Comment on above: Performed By: #### U AMIC #### [facility] [address] [address] Vandana Indira Nitrite Ql (U) Negative Normal NEGATIVE [facility] Comment on above: Performed By: #### U AMIC #### [facility] [address] [place] [address] Vandana Indira pH (U) 7.5 [pH] Normal 5-[address] [facility] Comment on above: Performed By: #### U AMIC #### [facility] [address] [place] [address] Vandana Indira RBC 0-2 Normal 0-2 [facility] Comment on above: Performed By: #### U AMIC #### [facility] [address] [place] [address] Vandana Indira SPEC GRAVITY 1.015 Normal 1.005-<=1.025 [facility] Comment on above: Performed By: #### U AMIC #### [facility] [address] [place] [address] Vandana Indira UA PROTEIN Negative Normal NEGATIVE/ TRACE [facility] Comment on above: Performed By: #### U AMIC #### [facility] [address] [place] [address] Vandana Indira Urobilinogen Qn (U) 0.2 {Richard'U}/dL Normal 0.2 - 1. [address] [facility] Comment on above: Performed By: #### U AMIC #### [facility] [address] [place] [address] Vandana Indira WBC 0-2 Abnormal NONE SEEN [facility] Comment on above: Performed By: #### U AMIC #### [facility] [address] [place] [address] Vandana Indira CBC AUTO DIFFon 12-17-2019 BASO # 0.0 103/ul Normal 0.0-0.[address] [facility] Comment on above: Performed By: #### C BC #### [facility] [address] [place], [place] [address] Vandana Indira Basophils/100 WBC (Bld) 0.1 % Critically low 0.2-2.[address] [facility] Comment on above: Performed By: #### C BC #### [facility] [address] [place], [place] [address] Vandana Indira EO # 0.1 103/ul Normal 0.0-0.[address] [facility] Comment on above: Performed By: #### C BC #### [facility] [address] [place] [address] Vandana Indira Eosinophils/100 WBC (Bld) 0.9 % Normal 0.9-7.[address] [facility] Comment on above: Performed By: #### C BC #### [facility] [address] [place] [address] Vandana Indira Erythrocyte distribution width (RBC) [Ratio] 14.3 % Normal 11.0-15.0 [facility] Comment on above: Performed By: #### C BC #### [facility] [address] [place], [place] [address] Vandana Indira Hematocrit (Bld) [Volume fraction] 40.5 % Normal 36.0-48.[address] [facility] Comment on above: Performed By: #### C BC #### [facility] [address] [place], [place] [address] Vandana Indira Hemoglobin (Bld) [Mass/Vol] 13.2 g/dL Normal 12.0-16.[address] [facility] Comment on above: Performed By: #### C BC #### [facility] [address] [place] [address] Vandana Indira IG # 0.01 10e3/ul Normal 0.00-0.[address] [facility] Comment on above: Performed By: #### C BC #### [facility] [address] [place], [place] [address] Vandana Indira IG % 0.1 % Normal 0.0-0.5 [facility] Comment on above: Performed By: #### C BC #### [facility] [address] [place], [place] [address] Vandana Indira LYMPH # 2.0 103/ul Normal 1.2-3.[address] [facility] Comment on above: Performed By: #### C BC #### [facility] [address] [place], [place] [address] Vandanadave Lien Lymphocytes/100 WBC (Bld) 27.9 % Normal 20.5-60.[address] [facility] Comment on above: Performed By: #### C BC #### [facility] [address] [place] [address] Vandana Jacobson MANUAL DIFF REQ NO Normal [facility] Comment on above: Performed By: #### C BC #### [facility] [address] [place] [address] Vandana Indira MCH (RBC) [Entitic mass] 25.7 pg Critically low 26.7-34.0 [facility] Comment on above: Performed By: #### C BC #### [facility] [address] [place], [place] [address] Vandanadave Jacobson MCHC (RBC) [Mass/Vol] 32.6 g/dL Normal 29.9-35.[address] [facility] Comment on above: Performed By: #### C BC #### [facility] [address] [place] [address] Vandana Indira MCV (RBC) [Entitic vol] 78.9 fL Critically low 81.0-99.[address] [facility] Comment on above: Performed By: #### C BC #### [facility] [address] [place] [address] Vandana Indira MONO # 0.5 103/ul Normal 0.3-0.8 [facility] Comment on above: Performed By: #### C BC #### [facility] [address] [place], [place] [address] Vandana Indira Monocytes/100 WBC (Bld) 7.0 % Normal 1.7-12.0 [facility] Comment on above: Performed By: #### C BC #### [facility] [address] [place], [place] [address] Vandana Jacobson NEUT # 4.5 103/ul Normal 1.4-6.5 [facility] Comment on above: Performed By: #### C BC #### [facility] [address] [place], [place] [address] Vandana Jacobson Neutrophils/100 WBC (Bld) 64.0 % Normal 43.0-75.0 [facility] Comment on above: Performed By: #### C BC #### [facility] [address] [place], [place] [address] Vandana Jacobson Platelet mean volume (Bld) [Entitic vol] 8.9 fL Critically low 9.5-13.5 [facility] Comment on above: Performed By: #### C BC #### [facility] [address] [place] [address] Vandana Jacobson PLT 345 103/ul Normal 150-450 [facility] Comment on above: Performed By: #### C BC #### [facility] [address] [place] [address] Vandana Jacobson RBC 5.13 106/ul Normal 4.20-5.40 [facility] Comment on above: Performed By: #### C BC #### [facility] [address] [place] [address] Vandana Jacobson WBC 7.1 103/ul Normal 4.0-11.0 [facility] Comment on above: Performed By: #### C BC #### [facility] [address] [place] [address] Vandana Jacobson FERRITINon 12-17-2019 Ferritin [Mass/Vol] 27.0 ng/mL Normal 6.2-137.0 [facility] Comment on above: Performed By: #### D RUGRPD #### [facility] [address] [place] [address] Vandana Jacobson IRONon 12-17-2019 Iron [Mass/Vol] 35.0 ug/dL Critically low 37.0-170.0 [facility] Comment on above: Performed By: #### D RUGRPD #### [facility] [address] [place], [place] [address] Vandana Jacobson PROF 14(COMP METB)on 020 Albumin [Mass/Vol] 3.7 g/dL Normal 3.5-5.0 [facility] Comment on above: Performed By: #### C MP #### [facility] [address] [place], [place] [address] Vandana Indira Albumin/Globulin [Mass ratio] 0.9 {ratio} Normal [facility] Comment on above: Performed By: #### C MP #### [facility] [address] [place], [place] [address] Vandana Indira ALP [Catalytic activity/Vol] 82 U/L Normal 38-126 [facility] Comment on above: Performed By: #### C MP #### [facility] [address] [place] [address] Vandana Indira ALT [Catalytic activity/Vol] 21 U/L Normal 9-52 [facility] Comment on above: Performed By: #### C MP #### [facility] [address] [place], [place] [address] Vandana Indira Anion gap [Moles/Vol] 12.5 mmol/L Normal [facility] Comment on above: Performed By: #### C MP #### [facility] [address] [place], [place] [address] Vandana Indira AST [Catalytic activity/Vol] 15 U/L Normal 14-36 [facility] Comment on above: Performed By: #### C MP #### [facility] [address] [place], [place] [address] Vandana Indira Bilirubin [Mass/Vol] 0.3 mg/dL Normal 0.2-1.3 [facility] Comment on above: Performed By: #### C MP #### [facility] [address] [place], [place] [address] Vandana Indira Calcium [Mass/Vol] 9.5 mg/dL Normal 8.4-10.[address] [facility] Comment on above: Performed By: #### C MP #### [facility] [address] [address] Vandana Indira Chloride [Moles/Vol] 104 mmol/L Normal 98-[address] [facility] Comment on above: Performed By: #### C MP #### [facility] [address] [address] Vandana Indira CO2 [Moles/Vol] 28.4 mmol/L Normal 22.0-30.[address] [facility] Comment on above: Performed By: #### C MP #### [facility] [address] [address] Vandana Indira Creatinine [Mass/Vol] 0.69 mg/dL Normal 0.52-1.[address] [facility] Comment on above: Performed By: #### C MP #### [facility] [address] [place] [address] Vandana Indira EGFR-AF KU[place]I >60 Normal >=[address] [facility] Comment on above: Performed By: #### C MP #### [facility] [address] [place] [address] Vandana Indira EGFR-NON AF [place]I >60 Normal >=[address] [facility] Comment on above: Performed By: #### C MP #### [facility] [address] [place], [place] [address] Vandana Indira Globulin (S) [Mass/Vol] 4.1 g/dL Normal [facility] Comment on above: Performed By: #### C MP #### [facility] [address] [place] [address] Vandana Indira Glucose [Mass/Vol] 94 mg/dL Normal 74-[address] [facility] Comment on above: Performed By: #### C MP #### [facility] [address] [place], [place] [address] Vandana Indira Potassium [Moles/Vol] 3.9 mmol/L Normal 3.4-5.[address] [facility] Comment on above: Performed By: #### C MP #### [facility] [address] [place] [address] Vandana Indira Protein [Mass/Vol] 7.8 g/dL Normal 6.1-8.[address] [facility] Comment on above: Performed By: #### C MP #### [facility] [address] [address] Vandana Jacobson Sodium [Moles/Vol] 141 mmol/L Normal 137-145 [facility] Comment on above: Performed By: #### C MP #### [facility] [address] [address] Vandana Indira Urea nitrogen [Mass/Vol] 16.0 mg/dL Normal 7.0-17.0 [facility] Comment on above: Performed By: #### C MP #### [facility] [address] [place] [address] Vandana Jacobson Urea nitrogen/Creatinine [Mass ratio] 23.2 mg/mg Normal [facility] Comment on above: Performed By: #### C MP #### [facility] [address] [address] Vandanadave Jacobson PROTIMEon 12-17-2019 INR Coag (PPP) [Relative time] 0.97 {INR} Normal [facility] Comment on above: Performed By: #### D RUGBELA #### [facility] [address] [place] [address] Vandana Indira INR GUIDELINES SEE BELOW Normal [facility] Comment on above: Result Comment: ABHIJIT RED INR: 2.0 - 3.0 CONDITIONS NOT LISTED BELOW 2.5 - 3.5 FOR PROSTHETIC HEART VALVE REPLACEMENT 2.5 - 3.5 RECURRENT THROMBOSIS Performed By: #### D RUGRPD #### [facility] [facility] [address] [place] [address] Vandana Indira PT Coag (PPP) [Time] 10.3 s Normal 9.0-11.[address] [facility] Comment on above: Performed By: #### D RUGRPD #### [facility] [address] [place], [place] [id number] Vandana Indira PT NORMAL PLEASE NOTE: NORMAL RANGE CHANGE 11-24-2013 DUE TO REAGENT LOT CHANGE Normal [facility] Comment on above: Performed By: #### D RUGRPD #### [facility] [address] [place], [place] [address] Vandana Jacobson PTTon 12-17-2019 aPTT Coag (Bld) [Time] 30.7 s Normal 22.3-36.2 [facility] Comment on above: Performed By: #### D RUGRPD #### [facility] [address], [place] [address] Vandana Jacobson PTT NORMAL PLEASE NOTE: NORMAL RANGE CHANGE 01-31-2015 DUE TO REAGENT LOT CHANGE Normal [facility] Comment on above: Performed By: #### D RUGRPD #### [facility] [address] [place], [place] [address] Vandana Jacobson Vital Signs Date Time Vital Sign Value Performing Clinician Facility 04-07-2024 13:43-0500 Body mass index (BMI) [Ratio] 32.52 kg/m2 [facility] Nurse [facility] 04-07-2024 13:43-0500 Body weight 73.03 kg [facility] Nurse [facility] 04-07-2024 13:43-0500 Diastolic blood pressure 72 mm[Hg] [facility] Nurse [facility] 04-07-2024 13:43-0500 Systolic blood pressure 118 mm[Hg] [facility] Nurse [facility] 01-06-2024 10:50-0400 Body height 149.9 cm Sarah NGUYEN Work Phone: [facility] 01-06-2024 10:50-0400 Body mass index (BMI) [Ratio] 32.47 kg/m2 Sarah NGUYEN Work Phone: [facility] 01-06-2024 10:50-0400 Body weight 72.92 kg Sarah NGUYEN Work Phone: [facility] 01-06-2024 10:50-0400 Diastolic blood pressure 78 mm[Hg] Sarah NGUYEN Work Phone: [facility] 01-06-2024 10:50-0400 Systolic blood pressure 118 mm[Hg] Sarah NGUYEN Work Phone: [facility] 04-30-2023 10:23-0500 Diastolic blood pressure 84 mm[Hg] PHYSICIAN NO FAMILY [facility] 04-30-2023 10:23-0500 Heart rate 67 /min PHYSICIAN NO [facility] 04-30-2023 10:23-0500 Respiratory rate 18 /min PHYSICIAN NO [facility] 04-30-2023 10:23-0500 SaO2% (BldA) [Mass fraction] 99 % PHYSICIAN NO [facility] 04-30-2023 10:23-0500 Systolic blood pressure 130 mm[Hg] PHYSICIAN NO [facility] 04-30-2023 08:53-0500 Body temperature 98.3 [degF] PHYSICIAN NO [facility] 04-30-2023 08:12-0500 Inhaled oxygen flow rate 8 L/min PHYSICIAN NO [facility] 04-30-2023 07:44-0500 Body height 152.4 cm PHYSICIAN NO [facility] 04-30-2023 07:44-0500 Body mass index (BMI) [Ratio] 28.7 kg/m2 PHYSICIAN NO [facility] 04-30-2023 07:44-0500 Body weight 66.67 kg PHYSICIAN NO [facility] 04-24-2023 11:55-0500 Diastolic blood pressure 86 mm[Hg] PHYSICIAN NO [facility] 04-24-2023 11:55-0500 Heart rate 65 /min PHYSICIAN NO [facility] 04-24-2023 11:55-0500 Respiratory rate 16 /min PHYSICIAN NO [facility] 04-24-2023 11:55-0500 SaO2% (BldA) [Mass fraction] 100 % PHYSICIAN NO [facility] 04-24-2023 11:55-0500 Systolic blood pressure 119 mm[Hg] PHYSICIAN NO [facility] 04-24-2023 11:07-0500 Body temperature 98 [degF] PHYSICIAN NO [facility] 04-24-2023 10:42-0500 Inhaled oxygen flow rate 8 L/min PHYSICIAN NO [facility] 04-24-2023 08:52-0500 Body height 152.4 cm PHYSICIAN NO [facility] 04-24-2023 08:52-0500 Body mass index (BMI) [Ratio] 29 kg/m2 PHYSICIAN NO [facility] 04-24-2023 08:52-0500 Body weight 67.58 kg PHYSICIAN NO [facility] 04-20-2023 08:56-0500 Body mass index (BMI) [Ratio] 30.09 kg/m2 Dawn Sarkar MD Work Phone: [facility] 04-20-2023 08:56-0500 Body weight 67.59 kg Dawn Sarkar MD Work Phone: [facility] 04-20-2023 08:56-0500 Diastolic blood pressure 66 mm[Hg] Dawn Sarkar MD Work Phone: [facility] 04-20-2023 08:56-0500 Systolic blood pressure 110 mm[Hg] Dawn Sarkar MD Work Phone: [facility] Encounters Encounter Date Encounter Type Care Provider Facility Start: 05-09-2024 End: 05-09-2024 Bamboo flowsheet Newton Raul DO Work Phone: [facility] Start: 05-09-2024 End: 05-09-2024 Bamboo flowsheet Newton Raul DO Work Phone: [facility] Start: 04-07-2024 End: 04-07-2024 Office outpatient visit 5 minutes [facility] Raul Nurse [facility] Comment on above: GA: 7w3d Start: 04-07-2024 End: 04-07-2024 ambulatory DAWN SARKAR Not Available Start: 01-06-2024 End: 01-06-2024 Bamboo flowsheet Sarah NGUYEN Work Phone: [facility] Start: 01-06-2024 End: 01-06-2024 Bamboo flowsheet Sarah NGUYEN Work Phone: [facility] Start: 01-06-2024 End: 01-06-2024 Postop follow up visit related to original px Sarah NGUYEN Work Phone: [facility] Comment on above: Encounter for postop erative care; Encounter for weight management Start: 01-06-2024 End: 01-06-2024 ambulatory SARAH KERN Not Available Start: 12-16-2023 End: 12-16-2023 Clinisync Result Encounter Newton Raul DO Work Phone: [facility] Unsolicited Start: 12-16-2023 End: 12-16-2023 Clinisync Result Encounter Newton Raul DO Work Phone: [facility] Unsolicited Start: 12-08-2023 End: 12-08-2023 Clinisync Result Encounter Newton Raul DO Work Phone: [facility] Unsolicited Start: 12-08-2023 End: 12-08-2023 Clinisync Result Encounter Newton Raul DO Work Phone: [facility] Unsolicited Start: 12-01-2023 End: 12-01-2023 Clinisync Result Encounter Newton Raul DO Work Phone: [facility] Unsolicited Start: 12-01-2023 End: 12-01-2023 Clinisync Result Encounter Newton Raul DO Work Phone: [facility] Unsolicited Start: 11-13-2023 End: 11-13-2023 Clinisync Result Encounter Newton Raul DO Work Phone: [facility] Unsolicited Start: 11-13-2023 End: 11-13-2023 Clinisync Result Encounter Newton Raul DO Work Phone: [facility] Unsolicited Start: 11-13-2023 End: 11-13-2023 ambulatory PHYSICIAN NO [facility] Work Phone: Start: 11-13-2023 End: 11-13-2023 Departed Referred PHYSICIAN NO [facility] Work Phone: Start: 11-12-2023 End: 11-12-2023 Clinisync Result Encounter Newton Raul DO Work Phone: [facility] Unsolicited Start: 11-12-2023 End: 11-12-2023 Clinisync Result Encounter Newton Carter DO Work Phone: [facility] Unsolicited Start: 05-11-2023 End: 05-11-2023 ambulatory DAWN SARKAR Not Available Start: 04-29-2023 End: 04-30-2023 Patient encounter procedure PHYSICIAN NO [facility] [place] [address] Medical - O/P Start: 04-29-2023 End: 04-30-2023 ambulatory PHYSICIAN NO [facility] Work Phone: Start: 04-24-2023 End: 04-24-2023 Admission to same day surgery center PHYSICIAN NO [facility] Start: 04-24-2023 End: 04-24-2023 ambulatory PHYSICIAN NO [facility] Work Phone: Start: 04-20-2023 End: 04-20-2023 Office outpatient visit 10 minutes Dawn Sarkar MD Work Phone: [facility] Comment on above: Missed ; Bleeding in early ; Vaginal discharge Start: 04-20-2023 End: 04-20-2023 ambulatory DAWN SARKAR Not Available Start: 04-13-2023 End: 04-13-2023 ambulatory DAWN SARKAR Not Available Start: 04-12-2023 Chart abstracting Dawn galicia MD Work Phone: [facility] Start: 10-08-2020 End: 10-08-2020 ambulatory KOFI CURRIE Facility:[facility]1 Start: 10-03-2020 ambulatory KOFI CURRIE Facility:H 1 Start: 10-01-2020 End: 10-03-2020 Evaluation and management of inpatient DR TAE BURK Facility:[facility]1 Start: 09-12-2020 End: 09-13-2020 ambulatory TERENCE SCHMITZ Facility:[facility]1 Start: 09-10-2020 End: 09-11-2020 ambulatory KOFI CURRIE Facility:[facility]1 Start: 09-06-2020 End: 09-06-2020 ambulatory TERENCE SCHMITZ Facility:[facility]1 Start: 08-31-2020 End: 08-31-2020 ambulatory TERENCE SCHMITZ Facility:[facility]1 Start: 08-01-2020 End: 08-01-2020 ambulatory TERENCE SCHMITZ Facility:[facility]1 Start: 12-17-2019 End: 12-18-2019 ambulatory TERENCE SCHMITZ Facility: Procedures Date Procedure Procedure Detail Performing Clinician Start: 04-07-2024 End: 04-07-2024 Urnls dip stick/tablet rgnt non-auto w/o micrscp Newton Raul DO Work Phone: Start: 12-16-2023 [facility] PREG QUANT HCG Core y Raul DO Work Phone: Start: 12-08-2023 [facility] PREG QUANT HCG Core y Raul DO Work Phone: Start: 12-01-2023 [facility] PREG QUANT HCG Core y Raul DO Work Phone: Start: 11-13-2023 ALL CBC WITH AUTO DIFF Newton Raul DO Work Phone: Start: 11-12-2023 ALL CBC WITH AUTO DIFF Newton Raul DO Work Phone: Start: 04-30-2023 Dilation and curetta ge of uterus PHYSICIAN NO FAMILY Start: 04-30-2023 Pelvic echography PHYSI RADHA NO FAMILY Start: 04-30-2023 Transvaginal echography PHYSICIAN NO FAMILY Start: 04-29-2023 Antibody screen PHYSICI AN NO FAMILY Comment on above: Result Comment: PERF ORMED BY: [facility] [address] [address] PATHOLOGIST SAW EDGE FUSER CIRCULAR CHUY PALOMO M.D. Start: 04-24-2023 Dilation and curetta ge of uterus PHYSICIAN NO FAMILY Start: 10-01-2020 Delivery of Products of Conception, External Approach TERENCE SCHMITZ Start: 10-01-2020 Repair Vulva, Decommissioning Well Site Manager al Approach TERENCE TEIXEIRA CHRISTIANMarisolBALJINDERBronwyn Plan of Treatment Date Care Activity Detail Author Start: 07-11-2024 End: 07-11-2024 Patient encounter procedure 07/11/2024 11:00 AM EDT Office Visit [facility] [address] [place] [id number] Sarah Kern PA [address] [place] [address] [facility] Start: 05-09-2024 End: 05-09-2024 Patient encounter procedure [facility] Comment on above: Arrived Start: 04-07-2024 End: 04-07-2025 ABO/Rh ABO/Rh Lab Routine Missed menses , unspecified gestational age Expected: 04/07/2024 (Approximate), Expires: 04/07/2025 [facility] Comment on above: Expected: 04/07/2024 (Approximate), Expires: 04/07/2025 Start: 04-07-2024 End: 04-07-2025 Blood type and Indirect antibody screen panel - Blood Type and screen Lab Routine Missed menses , unspecified gestational age Expected: 04/07/2024 (Approximate), Expires: 04/07/2025 [facility] Work Phone: Comment on above: Expected: 04/07/2024 (Approximate), Expires: 04/07/2025 Start: 04-07-2024 End: 04-07-2025 Drugs of abuse panel - Urine by Screen method Rapid drug screen, urine Lab Routine , unspecified gestational age Encounter for supervision of normal first in first trimester Expected: 04/07/2024 (Approximate), Expires: 04/07/2025 [facility] Comment on above: Expected: 04/07/2024 (Approximate), Expires: 04/07/2025 Start: 01-06-2024 End: 01-06-2024 Patient encounter procedure 01/06/2024 10:40 AM EDT Office Visit [facility] [address] [place] [phone] Sarah Kern PA [address] [place], [place] [phone] Arrived [facility] Comment on above: Arrived Start: 11-13-2023 End: 11-13-2023 Patient encounter procedure 11/13/2023 9:30 AM EDT Procedure Visit [facility] Newton Carter, [address] [place] [address] [facility] Start: 11-08-2023 Influenza vaccination Influenza Vacc ine (#1) [facility] Start: 04-30-2023 [facility] Start: 04-24-2023 [facility] Start: 04-24-2023 End: 04-24-2023 [facility] Start: 04-20-2023 End: 04-20-2024 hCG, quantitative [facility] Work Phone: Comment on above: Ordered: 04/20/2023 Expected: 04/20/2023 (Approximate), Expires: 04/20/2024 Start: 04-13-2023 End: 04-13-2023 Patient encounter procedure 04/13/2023 9:45 AM EST Office Visit [facility] [address] [place] [address] Dawn Sarkar MD [address] [place] [address] [facility] Start: 04-13-2023 End: 04-13-2023 Professional / ancillary services management 04/13/2023 9:30 AM EST Ancillary Procedure [facility] [address] [place] [address] [facility] Bacteria identified in Urine by Culture Urine culture Microbiology Routine Missed menses Ordered: 04/07/2024 [facility] Comment on above: Ordered: 04/07/2024 Basophils [#/volume] in Blood by Automated count [facility] Basophils/100 leukocytes in Blood by Automated count [facility] CBC W Auto Different ial panel - Blood CBC and differential Lab Routine Missed menses , unspecified gestational age Ordered: 04/07/2024 [facility] Comment on above: Ordered: 04/07/2024 Eosinophils/100 leukocytes in Blood by Automated count [facility] Erythrocyte distribution width [Ratio] by Automated count [facility] Erythrocytes [#/volu me] in Blood [facility] Hematocrit [Volume Fraction] of Blood [facility] Hemoglobin [Mass/volume] in Blood [facility] Hemoglobin A1c/Hemoglobin.total in Blood Hemoglobin A1c Lab Routine Missed menses , unspecified gestational age Ordered: 04/07/2024 [facility] Comment on above: Ordered: 04/07/2024 Hepatitis B virus surface Ag [Presence] in Serum or Plasma by Immunoassay Hepatitis B surface antigen Lab Routine Missed menses , unspecified gestational age Ordered: 04/07/2024 [facility] Comment on above: Ordered: 04/07/2024 Hepatitis C virus Ab [Presence] in Serum or Plasma by Immunoassay Hepatitis C antibody Lab Routine Missed menses , unspecified gestational age Ordered: 04/07/2024 [facility] Comment on above: Ordered: 04/07/2024 HIV-1/HIV-2 antigen/antibody combination immunoassay HIV-1 and HIV-2 antibodies Lab Routine Missed menses , unspecified gestational age Ordered: 04/07/2024 [facility] Comment on above: Ordered: 04/07/2024 Leukocytes [#/volume ] corrected for nucleated erythrocytes in Blood by Automated coun [facility] Leukocytes [#/volume ] in Blood [facility] Lymphocytes [#/volum e] in Blood by Automated count [facility] Lymphocytes/100 leukocytes in Blood by Automated count [facility] MCH [Entitic mass] b y Automated count [facility] MCHC [Mass/volume] b y Automated count [facility] MCV [Entitic volume] by Automated count [facility] Monocytes [#/volume] in Blood by Automated count [facility] Monocytes/100 leukocytes in Blood by Automated count [facility] MYCOPLASMA/UREAPLASM A PANEL MYCOPLASMA/UREAPLASMA PANEL Lab Routine Vaginal discharge Ordered: 04/20/2023 [facility] Comment on above: Ordered: 04/20/2023 Neutrophils [#/volum e] in Blood by Automated count [facility] Neutrophils/100 leukocytes in Blood by Automated count [facility] Nucleated erythrocyt es [Presence] in Blood by Automated count [facility] Patient Education [facility] Work Phone: Patient referral [facility] Work Phone: Platelet mean volume [Entitic volume] in Blood by Automated count [facility] Platelets [#/volume] in Blood [facility] Reagin Ab [Presence] in Serum by RPR RPR Lab Routine Missed menses , unspecified gestational age Ordered: 04/07/2024 [facility] Comment on above: Ordered: 04/07/2024 Rubella antibody, IgG Rubella an tibody, IgG Lab Routine Missed menses , unspecified gestational age Ordered: 04/07/2024 [facility] Comment on above: Ordered: 04/07/2024 Payers Date Payer Category Payer Self-pay 2023 [facility] BCBS [id number] 2023 Unknown BCBS BCBS xxxxxx [id number] 2023-Present [phone] [address] [place] [address] [id number] 2023 Unknown [id number] 1998 Unknown [id number] 2.16.840.1.781880.3.579.2. 593 1998 Unknown [id number] 2.16.840.1.428699.3.579.2. 593 1998 Unknown [id number] 2.16.840.1.519054.3.579.2. 593 1998 Unknown [id number] 2.16.840.1.429081.3.579.2. 593 1998 Unknown [id number] 2.16.840.1.770259.3.579.2. 593 1998 Unknown [id number] 2.16.840.1.138768.3.579.2. 593 1998 Unknown [id number] 2.16.840.1.380322.3.579.2. 593 1998 Unknown [id number] 2.16.840.1.743239.3.579.2. 593 1998 Unknown [id number] 2.16.840.1.448547.3.579.2. 593 1998 Unknown [id number] 2.16.840.1.430769.3.579.2. 1259 1998 Unknown [id number] 2.16.840.1.603720.3.579.2. 1259 1998 Unknown [id number] 2.16.840.1.725625.3.579.2. 1259 1998 Unknown [id number] 2.16.840.1.911784.3.579.2. 1259 1998 Unknown [id number] 2.16.840.1.345917.3.579.2. 1259 1998 Unknown [id number] 2.16.840.1.538518.3.579.2. 1259 1998 Unknown [id number] 2.16.840.1.375729.3.579.2. 1259 1998 Unknown [id number] 2.16.840.1.939265.3.579.2. 1259 1998 Unknown [id number] 2.16.840.1.288383.3.579.2. 1259 1959 Unknown [id number] 1959 Unknown [id number] Unknown [id number] 2.16.840.1.577442.3.579.2. 531 Unknown [id number] 2.16.840.1.149931.3.579.2. 531 Unknown [id number] 2.16.840.1.385971.3.579.2. 531 Social History Date Type Detail Facility Start: 08-13-2022 End: 04-30-2023 Tobacco smoking status NHIS Never smoked tobacco [facility] Start: 08-13-2022 Tobacco use and exposure Smokeless tobacco non-user [facility] Start: 04-07-2023 End: 04-07-2024 Alcohol intake Ex-drinker (finding) [facility] Start: 08-13-2022 End: 04-13-2023 History of Social function [facility] Start: 08-13-2022 End: 04-13-2023 Tobacco use panel [facility] Start: 08-13-2022 Alcohol Comment none with [facility] Start: 2000 Sex Assigned At Not on file [facility] The thought of gilberto salinas myself has occurred to me Never [facility] Start: 1998 Sex Assigned At Female F [facility] How often to you hav e a drink containing alcohol? Monthly or less [facility] How many standard drinks containing alcohol do you have on a typical day? 1 or 2 [facility] How often do you hav e 6 or more drinks on 1 occasion? Less than monthly [facility] Start: 02-29-2024 [facility] Goals Date Patient Goal Desired Activity /State Functional Status Date Assessment Result Facility 04-29-2023 Functional status Patient at [facility] Work Phone: Mental Status Date Assessment Result Facility 04-29-2023 Cognitive function Cognitive Sta tus Patient at Baseline [facility] Work Phone: History of Present illness Narrative 04-07-2024 Cayla Mayorga MA - 04/07/2024 1:30 PM EST Note Date & Type Note Facility 04-07-2024 History of Presen t illness Narrative Reason for Appointment: Patient ID: Sarah Arce is a 24 y.o. female who presents for Amenorrhea Patient presents today for a Nurse OB Intake appointment. Patient is 7w3d with a Estimated Date of Delivery: 11/21/24 OB History Para Term AB Living 3 1 1 1 SAB IAB Ectopic Multiple Live Births 1 # Outcome Date GA Lbr Ryan/2nd Weight Sex Type Anes PTL Lv 3 Current 2 Term 10/01/20 39w4d 7 lb 12 oz M Vag-Spont ANTHONY 1 Current Medications: has a current medication list which includes the following prescription(s): metformin xr, ondansetron odt, and gummies. Medical History: Active Ambulatory Problems Diagnosis Date Noted Vaginal bleeding 02/16/2024 Resolved Ambulatory Problems Diagnosis Date Noted No Resolved Ambulatory Problems Past Medical History: Diagnosis Date Polycystic ovary syndrome 5 years ago Varicella zoster Family History Problem Relation Name Age of Onset Ovarian cancer Mother Unknown No Known Problems Son Breast cancer Mother's Sister Moms sister Thyroid disease Mother's Sister Moms sister Ovarian cancer Maternal Grandmother Ovarian cancer Mother's Sister Jacquelyn Social History Tobacco Use Smoking status: Never Smokeless tobacco: Never Vaping Use Vaping status: Never Used Substance Use Topics Alcohol use: Not Currently Drug use: Never Past Surgical History: Procedure Laterality Date DILATION AND CURETTAGE OF UTERUS No Known Allergies Vitals: Estimated body mass index is 32.52 kg/m as calculated from the following: Height as of 01/06/24: 4' 11 . Weight as of this encounter: 161 lb. BP: 118/72 Patient's last menstrual period was 01/30/2024. Assessment/Plan Diagnoses and all orders for this visit: Missed menses - Type and screen; Future - ABO/Rh; Future - CBC and differential - Hemoglobin A1c - RPR - Rubella antibody, IgG - Hepatitis B surface antigen - Hepatitis C antibody - HIV-1 and HIV-2 antibodies - Urine culture - POCT , urine manually resulted - POCT urinalysis dipstick manually resulted , unspecified gestational age - Type and screen; Future - ABO/Rh; Future - CBC and differential - Hemoglobin A1c - RPR - Rubella antibody, IgG - Hepatitis B surface antigen - Hepatitis C antibody - HIV-1 and HIV-2 antibodies - Rapid drug screen, urine; Future Encounter for supervision of normal first in first trimester - Rapid drug screen, urine; Future - MV & Min w/FA-DHA ( Gummies) 0.18-25 MG chewable tablet; Chew 1 tablet Daily Nausea and vomiting in - ondansetron ODT (Zofran-ODT) 4 MG disintegrating tablet; Take 1 tablet (4 mg) by mouth every 6 (six) hours if needed for nausea or vomiting Nurse Note: OB Intake: Patient presents today for first OB visit. Patients history has been reviewed in great detail including any potential risks. Patient signed consent forms and patient desires testing in both trimesters. Patient currently has no complaints and has been advised to drink 6-8 glasses of water a day, eat no raw or undercooked meat, and stay away from [facility]. Patient has also been advised to not change litter boxes and eat 6 small meals a day. Patient has been consulted regarding the do's and don'ts of . Patient was given labs and all questions and concerns were answered. Follow Up: Patient is to return in 4 weeks for routine OB appointment. Follow Up: Patient is to have labs drawn at directed and return to office for initial OB appointment with provider. Patient may call office as needed with any concerns or questions. Nurse Visit Completed by: Cayla Mayorga MA documented in this encounter [facility] History of Present illness Narrative 01-06-2024 PATRICK Cowart - 01/06/2024 10:40 AM EDT Note Date & Type Note Facility 01-06-2024 History of Presen t illness Narrative Reason for Appointment: Patient ID: Sarah Arce is a 23 y.o. female who presents for Post-op Visit Patient presents today for Post Op Follow Up appointment. MEDICATIONS No current outpatient medications ALLERGIES No Known Allergies PROBLEMS Active Ambulatory Problems Diagnosis Date Noted No Active Ambulatory Problems Resolved Ambulatory Problems Diagnosis Date Noted No Resolved Ambulatory Problems Past Medical History: Diagnosis Date Polycystic ovary syndrome 5 years ago Varicella zoster HISTORY PAST MEDICAL HISTORY SOCIAL HISTORY Past Medical History: Diagnosis Date Polycystic ovary syndrome 5 years ago Varicella zoster as a child Social History Tobacco Use Smoking status: Never Smokeless tobacco: Never Vaping Use Vaping status: Never Used Substance Use Topics Alcohol use: Not Currently Drug use: Never FAMILY HISTORY Family History Problem Relation Name Age of Onset Ovarian cancer Mother Unknown No Known Problems Son Breast cancer Mother's Sister Moms sister Thyroid disease Mother's Sister Moms sister Ovarian cancer Maternal Grandmother Ovarian cancer Mother's Sister Jacquelyn SURGICAL HISTORY Past Surgical History: Procedure Laterality Date DILATION AND CURETTAGE OF UTERUS REVIEW OF SYSTEMS Review of Systems: Review of Systems Constitutional: Negative. HENT: Negative. Eyes: Negative. Respiratory: Negative. Cardiovascular: Negative. Gastrointestinal: Negative. Genitourinary: Negative. Musculoskeletal: Negative. Skin: Negative. Neurological: Negative. All other systems reviewed and are negative. Hematological: Negative. Endocrine: Negative. Allergic/Immunologic: Negative. OBJECTIVE Objective: Physical Exam Constitutional: Appearance: Normal appearance. She is normal weight. HENT: Head: Normocephalic. Cardiovascular: Rate and Rhythm: Normal rate. Pulses: Normal pulses. Pulmonary: Effort: Pulmonary effort is normal. Breath sounds: Normal breath sounds. Abdominal: Palpations: Abdomen is soft. Musculoskeletal: General: Normal range of motion. Neurological: General: No focal deficit present. Mental Status: She is alert and oriented to person, place, and time. Psychiatric: Mood and Affect: Mood normal. Behavior: Behavior normal. Thought Content: Thought content normal. Judgment: Judgment normal. Vitals and nursing note reviewed. Vitals: Estimated body mass index is 32.47 kg/m as calculated from the following: Height as of this encounter: 4' 11 . Weight as of this encounter: 160 lb 12 oz. BP: 118/78 No LMP recorded. ASSESSMENT & PLAN ICD-10-CM 1. Encounter for postoperative care Z48.89 Post Op Follow Up: Patient presents today for a postop follow up after having a D&C performed at [facility] with Dr. Carter. Pathology results was reviewed with the patient in great detail and all restrictions have been lifted. Patient states she has history or pcos and not started a period since procedure. Also states she has noticed increased facial hair growth. We will start patient on metformin. She will follow up for annual in next couple months Follow Up: Patient is to return to the office for annual exam unless needed otherwise. Documented by Haley Lainez on behalf of: PATRICK Cowart documented in this encounter [facility] History and physical note 04-30-2023 Note Date & Type Note Facility 04-30-2023 History and physical note Note Date/Time April 29, 2023 10:09pm [facility] [address] [place] [address] BANANA LOADER History & Physical Signed Patient: Sarah Arce MR#: [id number] : 2000 Acct:[id number] Age/Sex: 23 / F Adm Date: 4 Loc: Room: [address] [place] [address] Type: REG CLI Attending Dr: Dawn Sarkar MD Copies to: NO FAMILY PHYSICIAN Dawn Sarkar MD-[facility]~ Date of Service: 04/29/2023 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 PROJECT ENGINEER - 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 History of Present Illness Chief Complaint: Vaginal bleeding and cramping Planned Procedure: Operation Date: 04/30/23 07:40 Proposed Procedures p OR D&C, Suction(Not Applicable) - Dawn Sarkar MD HPI: 23-year-old with a history [...] negative unless noted below or in HPI [facility] Medical History (Updated 04/29/23 @ 22:08 by Dawn Sarkar MD) H/O reduction of closed fracture [...] mls @ 125 mls/hr IV .Q8H [facility] Stop: 04/28/24 16:59 Last Admin: 04/29/23 17:50 Dose: 125 mls/hr Cefazolin Sodium (Ancef) 2 gm in 50 mls @ 100 mls/hr IV Q8H [facility] Last Admin: 04/29/23 17:51 Dose: 100 mls/hr Oxytocin 40 unit/ Lactated (Ringer's) 504 mls @ 150 mls/hr IV .Q3H22M ONE; Protocol Stop: 04/30/23 02:21 Misoprostol (Misoprostol 200 Mcg Tablet) 800 mcg VAGINAL Q4H [facility] Stop: 04/30/23 02:31 WATER PROJECT ENGINEER - Exam Physical Exam Vital signs: Temp [...] Routine Psychiatric Exam Psychiatric: Present normal affect WATER PROJECT ENGINEER - Results Laboratory Results - Last 48 hrs. 04/29/23 20:27: Blood Type Recheck A Positive 04/29/23 17:45: HCG, Quant 3230.00 04/29/23 17:31: Corrected WBC 13.6 H, Uncorrected WBC Count 13.6 H, RBC 4.93, Hgb 13.3, Hct 39.8, MCV 80.8, MCH 27.0, MCHC 33.5, RDW 13.9, Plt Count 369, MPV 7.0, Neut % (Auto) 77.6, Lymph % (Auto) 17.0, Dukes % (Auto) 4.0, Eos % (Auto) 1.1, Baso % (Auto) 0.3, Nucleat RBC Rel Count 0.2, Neut # (Auto) 10.6 H, Lymph #(Auto) 2.3, Dukes # (Auto) 0.5, Eos # (Auto) 0.2, Baso # (Auto) 0.0, Blood Type APositive, Antibody Screen Negative Diagnostic Imaging Comments: 2.1 cm uterine complex with vascularization, essentially unchanged from yesterday WATER PROJECT ENGINEER - A/P (1) Vaginal bleeding: Plan Failed Cytotec evacuation of uterine tissue Suction D&C D&C Documented By: CHUCK Astorga 04/29/23 22 06 Signed By: <Electronically signed by CHUCK Sarkar> 04/30/23 0702 [facility] Work Phone: History of Present illness Narrative 04-20-2023 Dawn Sarkar MD - 04/20/2023 9:15 AM EST Note Date & Type Note Facility 04-20-2023 History of Presen t illness Narrative Images from the original note were not included. Dawn Sarkar MD Obstetrics and Gynecology Patient: Sarah [...] specified as infective documented in this encounter [facility] Evaluation note Note Date & Type Note Facility Evaluation note No assessment information availa ble [facility] Work Phone: Evaluation note Note Date & Type Note Facility Evaluation note Diagnosis Onset Date Vaginal bleeding acute [facility] Work Phone: Evaluation note Note Date & Type Note Facility Evaluation note Diagnosis Encounter for postoperative care Encounter for weight management documented in this encounter [facility] Evaluation note Note Date & Type Note Facility Evaluation note Diagnosis Missed menses , unspecified gestational age Encounter for supervision of normal first in first trimester Nausea and vomiting in Unspecified vomiting of , unspecified as to episode of care documented in this encounter [facility] Hospital Discharge instructions Note Date & Type Note Facility Hospital Discharge instructions Additional Instructions SPECIAL INSTRUCTIONS Call for heavy bleeding FOLLOW UP Thursday 10 am [facility] Work Phone: Summary Purpose Family History Relationship Condition Age at Onset Recorded Date/T prince Not Specified No pertinent family history Unknown Advance Directives Advance Directive Response Recorded Date/ Time Advance [...] pital DATE CREATED AUTHOR AUTHOR'S ORGANIZ ATION 11/23/2023 [facility] DATE CREATED AUTHOR AUTHOR'S ORGANIZ ATION 04/09/2024 [facility] EPIC Reason for Visit (unrecogniz ed section and content) Reason Comments Care Reason Comments Post-op Visit Reason Comments Amenorrhea Care Teams (unrecognized sec tion and content) Signal Technician Relationship Specialty Start Date End Date [facility]allocated, [facility] [place] [address] PCP - General Family Medicine 04/13/23 Team Status: Active Member Role Status Dates PHYSICIAN NO FAMILY Primary Care Provider Active Team Status: Inactive Member Role Status Dates Dawn Sarkar MD Attending Provider Active St art: April 24, 2023 End: April 24, 2023 PHYSICIAN NO FAMILY Primary Care Provider Active Start: April 24, 2023 End: April 24, 2023 Team Status: Inactive Member Role Status Dates PHYSICIAN NO FAMILY Primary Care Provider Active Start: April 29, 2023 End: April 30, 2023 Dawn Sarkar MD Attending Provider Active St art: April 29, 2023 End: April 30, 2023 Team Status: Inactive Member Role Status Dates PHYSICIAN NO FAMILY Primary Care Provider Active Start: November 13, 2023 End: November 13, 2023 Newton Carter DO Attending Provider Active Start : November 13, 2023 End: November 13, 2023 Signal Technician Relationship Specialty Start Date End Date Unallocated, Jodee Silverio MD [facility] [place], [place] [id number] PCP - General Family Medicine 04/13/23 Signal Technician Relationship Specialty Start Date End Date Unallocated, Jodee Silverio MD [facility] [place] [id number] PCP - General Family Medicine 04/13/23 Signal Technician Relationship Specialty Start Date End Date Unallocated, Jodee Silverio MD [facility] [place] [address] PCP - General Family Medicine 04/13/23 Signal Technician Relationship Specialty Start Date End Date Unallocated, Jodee Silverio MD [facility] [place] [id number] PCP - General Family Medicine 04/13/23 Signal Technician Relationship Specialty Start Date End Date Unallocated, Jodee Silverio MD [facility] [place] [id number] PCP - General Family Medicine 04/13/23 Signal Technician Relationship Specialty Start Date End Date Angel Seay MD [address] [place] [phone] PCP - General Family Medicine 01/26/24 Alina Schmitz NP [address] [place] [id number] Nurse Practitioner Family Medicine 01/26/24 Signal Technician Relationship Specialty Start Date End Date Angel Seay MD [address] [place] [phone] PCP - General Family Medicine 01/26/24 Alina Schmitz NP [address] [place] [id number] Nurse Practitioner Family Medicine 01/26/24 Goals (unrecognized section and content) Goals may [...] BE BASED ON THE PRIMARY CLINICAL RECORDS. [employer] provides no warranty or guarantee of the accuracy or completeness of information in this document.
--- OUTSIDE RECORDS SUMMARY | 2024-05-09 12:03 | XMS_ITS | CCD ---
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 Name Role Phone AICHHOLZ, JAWBONE PULLER ALINA Primary Care Unavailable KOFI CURRIE Consulting Unavailable KOFI CURRIE Admitting Unavailable KOFI CURRIE Attending Unavailable AICHHOLZ, JAWBONE PULLER ALINA Primary Care Unavailable QUIQUE, DR KECIA Devi Consulting Unavailable KOFI CURRIE Attending Unavailable KOFI CURRIE Admitting Unavailable KOFI CURRIE Consulting Unavailable KOFI CURRIE Attending Unavailable [facility] DR MADRID Referring Unavailable AICHHOLZ, JAWBONE PULLER ALINA Primary Care Unavailable KOFI CURRIE Consulting Unavailable KOFI CURRIE Admitting Unavailable KARASIK, DR STRONG Attending Unavailable AICHHOLZ, JAWBONE PULLER ALINA Primary Care Unavailable KARASIK, DR STRONG Consulting Unavailable KARASIK, DR STRONG Admitting Unavailable KARASIK, DR STRONG Procedure Practitioner Unava ilable KOFI CURRIE Consulting Unavailable KOFI CURRIE Attending Unavailable AICHHOLZ, JAWBONE PULLER ALINA Primary Care Unavailable KOFI CURRIE Admitting Unavailable AICHHOLZ, JAWBONE PULLER ALINA Primary Care Unavailable KARASIK, DR STRONG Consulting Unavailable KARASIK, DR STRONG Admitting Unavailable KARASIK, DR STRONG Attending Unavailable KOFI CURRIE Consulting Unavailable KOFI CURRIE Attending Unavailable AICHHOLZ, JAWBONE PULLER ALINA Primary Care Unavailable KOFI CURRIE Admitting Unavailable AICHHOLZ, JAWBONE PULLER ALINA Primary Care Unavailable KOFI CURRIE Consulting Unavailable KOFI CURRIE Admitting Unavailable KOFI CURRIE Attending Unavailable AICHHOLZ, JAWBONE PULLER ALINA Admitting Unavailable AICHHOLZ, JAWBONE PULLER ALINA Attending Unavailable AICHHOLZ, JAWBONE PULLER ALINA Consulting Unavailable AICHHOLZ, JAWBONE PULLER ALINA Primary Care Unavailable Unavailable Primary Care Provider Unavailabl e Unallocated, Noms Provider Primary Care Provider MD Dawn Sarkar Attending Provider NO FAMILY, PHYSICIAN Primary Care Provider Unava ilable NO FAMILY, PHYSICIAN Primary Care Provider Unava ilable DO Newton Carter Attending Provider NO FAMILY, PHYSICIAN Primary Care Unavailable Dawn [...] Dawood MASSEY, Angel Primary Care Provider Nadir RADIO MECHANIC, Alina Unavailable DAWN SARKAR Attending Unavailable DAWN [...] Interpretation and review of laboratory results Abnormal [facility] Preg Test, Ur Positive Negative [facility] OB TRANSVAGINALon 025 OB TRANSVAGINAL TITLE OF [...] report is generated using voice recognition reporting ([employer]). On occasion [employer] erroneously drops words from the report or [...] UA Negative Negative - 4(70) +++ mg/dL [facility] Blood, UA Positive Negative - 50 Sherman/mcL [facility] Comment on above: trace Clarity, UA Clear [facility] Color, UA Yellow [facility] Glucose, UA Negative Negative - 2000(110) ++++ mg/dL [facility] Interpretation and review of laboratory results Abnormal [facility] Ketones, UA Positive Negative - 160(16) ++++ mg/dL [facility] Comment on above: trace Leukocytes, UA Trace Negative - 500+++ Jackie/mcL [facility] Nitrite, UA Negative Negative - Positive [facility] pH, UA 5.5 5 - 9 [facility] Protein, UA Trace Negative - 2000(20) ++++ mg/dL [facility] Spec Grav, UA 1.03 1 - 1.03 [facility] Urobilinogen, UA 0.2 0.2 - 12 mg/dL [facility] PREG QUANT HCGon 024 HCG QUANTITATIVE 5 mIU/mL [facility] Comment on above: 5-50 0.2-1 WEEK 50-500 1-2 WEEKS 100-5,000 2-3 WEEKS 500-10,000 3-4 WEEKS 1,000-50,000 4-5 WEEKS 10,000-100,000 5-6 WEEKS 15,000-200,000 6-8 WEEKS 10,000-100,000 2[facility]on 024 HCG QUANTITATIVE 16 mIU/mL [facility] Comment on above: 5-50 0.2-1 WEEK 50-500 1-2 WEEKS 100-5,000 2-3 WEEKS 500-10,000 3-4 WEEKS 1,000-50,000 4-5 WEEKS 10,000-100,000 5-6 WEEKS 15,000-200,000 6-8 WEEKS 10,000-100,000 2-3 [facility] PREG QUANT HCGon 024 HCG QUANTITATIVE 70 mIU/mL [facility] Comment on above: 5-50 0.2-1 WEEK 50-500 1-2 WEEKS 100-5,000 2-3 WEEKS 500-10,000 3-4 WEEKS 1,000-50,000 4-5 WEEKS 10,000-100,000 5-6 WEEKS 15,000-200,000 6-8 WEEKS 10,000-100,000 2-3 [facility] CBC WITH AUTO DIFFon BASOPHILS ABSOLUTE AUTO 0.0 [facility] Basophils/100 WBC (Bld) 0.2 % 0.2 - 2.0 % [facility] Eosinophils/100 WBC (Bld) 0.7 % Low 0.9 - 7.0 % [facility] Erythrocyte distribution width (RBC) [Ratio] 13.3 % 11.0 - 15.0 % [facility] Hematocrit (Bld) [Volume fraction] 37.9 % 36.0 - 48.0 % [facility] Hemoglobin (Bld) [Mass/Vol] 13.0 g/dL 12.0 - 16.0 g/dL [facility] IMMATURE GRANULOCYTES ABS AUTO 0.03 [facility] Immature granulocytes/100 WBC (Bld) 0.3 % 0.0 - 0.5 % [facility] Interpretation and review of laboratory results Abnormal [facility] LYMPHOCYTES ABSOLUTE AUTO 1.7 [facility] Lymphocytes/100 WBC (Bld) 14.9 % Low 20.5 - 60.0 % [facility] MCH (RBC) [Entitic mass] 27.6 pg 26.7 - 34.0 pg [facility] MCHC (RBC) [Mass/Vol] 34.3 g/dL 29.9 - 35.2 g/dL [facility] MCV (RBC) [Entitic vol] 80.5 fL Low 81.0 - 99.0 fL [facility] MONOCYTES ABSOLUTE AUTO 0.6 [facility] Monocytes/100 WBC (Bld) 5.6 % 1.7 - 12.0 % [facility] NEUTROPHILS ABSOLUTE AUTO 8.7 High [facility] Neutrophils/100 WBC (Bld) 78.3 % High 43.0 - 75.0 % [facility] Platelet mean volume (Bld) [Entitic vol] 9.1 fL Low 9.5 - 13.5 fL [facility]H EO # 0.1 [facility] PLT 297 [facility] TB RBC 4.71 [facility] TB WBC 11.1 High [facility]IN[facility] Leif 11-13-2023 L Specimen: [id number] Received: 11/16/23 Status: RUBINA Sharpe Num: [id number] Spec Type: Surgical Subm Dr: Newton Carter Tissues: A Products of Conception - Spontaneous or Missed (POC MOLAR Procedures: HE/3, Gross/Micro L4 Age/ Patient Sex Location Account Attending Physician Sarah Arce 23/F [id number] Newton Carter SPEC NUM: [id number] RECD: 11/16/23 [facility] [id number] MARY: 11/13/[address]: Newton Carter ENTERED: 11/16/[address] [facility] [address]: Myriam,Lab SPEC TYPE: Surgical DEPT: [employer]BY [employer]OD ENTERED BY: [id number] RECV BY: [id number] ORDERED: HE/3, Gross/Micro L4 ORDERED: HE/3, Gross/Micro [...] the complete mole Clinical Information Molar Specimen: [id number] Received: 11/16/23 Status: RUBINA Sharpe Num: [id number] Spec Type: Surgical Subm Dr: Newton Carter Tissues: A Products of Conception - Spontaneous or Missed (POC MOLAR Procedures: /3, Gross/Micro L4 Patient: Sarah Arce [id number] (Continued) Specimen: [id number] Received: 11/16/23 (Continued) Signed (signature on file) Antonia Camarena MD 11/21/23 1057 Specimen: [id number] Received: 11/16/23 Status: RUBINA Sharpe Num: [id number] Spec Type: Surgical Subm Dr: Newton Carter Tissues: A Products of Conception - Spontaneous or Missed (POC MOLAR Procedures: /3, Gross/Micro L4 Patient: Sarah Arce [id number] (Continued) Specimen: [id number] Received: 11/16/23 (Continued) Gross Description The specimen was received in formalin with the patient's name and products of conception and consists of multiple jasmine-pink hemorrhagic soft tissue fragments measuring 12.0 x 11.0 x 1.5 cm in aggregate. Multiple cystic structures are identified ranging in size from 0.1 to 0.5 cm. The cysts are filled with a clear fluid. Veterinary Poultry Inspector sections of the cystic structures are submitted in cassettes A1-A3 DM Microscopic Description Microscopic examinations are performed supporting the above interpretation CPT Codes 19289 Specimen: [id number] Received: 11/16/23 Status: RUBINA Sharpe Num: [id number] Spec Type: Surgical Subm Dr: Newton Carter Tissues: A Products of Conception - Spontaneous or Missed (POC MOLAR Procedures: RYAN/Michael Beltrán/Lisa L4 Patient: Sarah Arce [id number] (Continued) Signed (signature on file) Antonia Camarena MD 11/21/23 1057 Normal [facility] ALL CBC WITH AUTO DIFFon BASOPHILS ABSOLUTE AUTO 0.0 [facility] Basophils/100 WBC (Bld) 0.2 % 0.2 - 2.0 % [facility] Eosinophils/100 WBC (Bld) 1.3 % 0.9 - 7.0 % [facility] Erythrocyte distribution width (RBC) [Ratio] 13.3 % 11.0 - 15.0 % [facility] Hematocrit (Bld) [Volume fraction] 37.4 % 36.0 - 48.0 % [facility] Hemoglobin (Bld) [Mass/Vol] 12.6 g/dL 12.0 - 16.0 g/dL [facility] IMMATURE GRANULOCYTES ABS AUTO 0.02 [facility] Immature granulocytes/100 WBC (Bld) 0.2 % 0.0 - 0.5 % [facility] Interpretation and review of laboratory results Abnormal [facility] LYMPHOCYTES ABSOLUTE AUTO 1.4 [facility] Lymphocytes/100 WBC (Bld) 12.1 % Low 20.5 - 60.0 % [facility] MCH (RBC) [Entitic mass] 27.0 pg 26.7 - 34.0 pg [facility] MCHC (RBC) [Mass/Vol] 33.7 g/dL 29.9 - 35.2 g/dL [facility] MCV (RBC) [Entitic vol] 80.1 fL Low 81.0 - 99.0 fL [facility] MONOCYTES ABSOLUTE AUTO 0.7 [facility] Monocytes/100 WBC (Bld) 6.4 % 1.7 - 12.0 % [facility] NEUTROPHILS ABSOLUTE AUTO 9.2 High [facility] Neutrophils/100 WBC (Bld) 79.8 % High 43.0 - 75.0 % [facility] Platelet mean volume (Bld) [Entitic vol] 9.1 fL Low 9.5 - 13.5 fL [facility] PLT 284 [facility] RBC 4.67 [facility] WBC 11.5 High [facility] Automated basophil %Ordered By: CHUCK Sarkar on 04-30-2023 Basophils/100 WBC (Bld) 0.7 % Normal . [facility] Comment on above: Performed By: #### C BC, HCGQNT #### [facility] [address] Automated basophil countOrde red By: CHUCK Sarkar on 04-30-2023 Basophils (Bld) [#/Vol] 0.1 10*3/uL Normal 0.0-0.2 [facility] Comment on above: Result Comment: PERF ORMED BY: [place] [address] PATHOLOGIST MAINFRAME DEVELOPER CHUY PALOMO M.D. Performed By: #### C BC, HCGQNT #### [address] Automated blood monocyte cou ntOrdered By: CHUCK Sarkar on 04-30-2023 Monocytes (Bld) [#/Vol] 0.5 10*3/uL Normal 0.0-0.8 [facility] Comment on above: Performed By: #### C BC, HCGQNT #### [address] Automated eosinophil %Ordere d By: CHUCK Sarkar on 04-30-2023 Eosinophils/100 WBC (Bld) 1.3 % Normal . [facility] Comment on above: Performed By: #### C BC, HCGQNT #### [address] Automated eosinophil countOr dered By: CHUCK Sarkar on 04-30-2023 Eosinophils (Bld) [#/Vol] 0.1 10*3/uL Normal 0.0-0.45 [facility] Comment on above: Performed By: #### C BC, HCGQNT #### [address] Automated monocyte %Ordered By: CHUCK Sarkar on 04-30-2023 Monocytes/100 WBC (Bld) 6.3 % Normal . [facility] Comment on above: Performed By: #### C BC, HCGQNT #### [address] Automated neutrophil %Ordere d By: CHUCK Sarkar on 04-30-2023 Neutrophils/100 WBC (Bld) 63.0 % Normal . [facility] Comment on above: Performed By: #### C BC, HCGQNT #### [address] Choriogonadotropin.beta subu nit [Units/volume] in Serum or PlasmaOrdered By: SHANNON Sarkar on 04-30-2023 HCG.beta subunit Qn 2358.00 m[IU]/mL [facility] Comment on above: Approximate Approxim ate hCG Gestational Age Range (mIU/ml) (weeks)0.2-1 5-50 1-2 50-500 2-3 100-5,000 3-4 500-10,000 4-5 1,000-50,000 5-6 10,000-100,000 6-8 15,000-200,000 8-12 10,000-100,000 Complete Blood Count Auto Di ffon 04-30-2023 Mean Corpuscular HGB Conc 34.7 g/dL Normal 32.0-35.0 [facility] Comment on above: Performed By: #### C BC, HCGQNT #### [address] NRBC% 0.1 /100{WBC} Normal 0-0.5 [facility] Comment on above: Performed By: #### C BC, HCGQNT #### [address] Erythrocyte distribution wid th [Ratio] by Automated countOrdered By: CHUCK Sarkar on 04-30-2023 Erythrocyte distribution width (RBC) [Ratio] 14.1 % Normal 11.9-15.3 [facility] Comment on above: Performed By: #### C BC, HCGQNT #### [address] Erythrocytes [#/volume] in B lood by Automated countOrdered By: CHUCK Sarkar on 04-30-2023 RBC (Bld) [#/Vol] 4.40 10*6/uL Normal 3.60-5.00 [facility] Comment on above: Performed By: #### C BC, HCGQNT #### [place] [address] HCG,Quantitativeon HCG,Quantitative 2358.00 m[iU]/mL Normal [facility] Comment on above: Result Comment: Appr oximate Approximate hCG Gestational Age Range (mIU/ml) (weeks) 0.2-1 5-50 1-2 50-500 2-3 100-5,000 3-4 500-10,000 4-5 1,000-50,000 5-6 10,000-100,000 6-8 15,000-200,000 8-12 10,000-100,000 PERFORMED BY: [place] [address] PATHOLOGIST MAINFRAME DEVELOPER CHUY PALOMO M.D. Performed By: #### C BC, HCGQNT #### [address] Hematocrit [Volume Fraction] of Blood by Automated countOrdered By: CHUCK Sarkar on 04-30-2023 Hematocrit (Bld) [Volume fraction] 35.3 % Normal 34.0-46.4 [facility] Comment on above: Performed By: #### C BC, HCGQNT #### [address] Hemoglobin [Mass/volume] in BloodOrdered By: CHUCK Sarkar on 04-30-2023 Hemoglobin (Bld) [Mass/Vol] 12.2 g/dL Normal 11.8-15.4 [facility] Comment on above: Performed By: #### C BC, HCGQNT #### [place] [address] [place] Leif 04-30-2023 L Specimen: [id number] Received: 04/30/23 Status: RUBINA Rekathrin Num: [id number] Spec Type: Surgical Subm Dr: CHUCK Astorga Tissues: A Products of Conception - Spontaneous or Missed (PRODUCTS OF CONCEPT Procedures: HE/3, Gross/Micro L4 Age/ Patient Sex Location Account Attending Physician Sarah Arce 23/F N3 [id number] CHUCK Astorga SPEC NUM: [id number] RECD: 04/30/23 STATUS: RUBINA MAYNARDKathrin NUM: [id number] MARY: 04/30/23- [facility] DR: CHUCK Astorga ENTERED: 04/30/[address] [facility] [address]: SPEC TYPE: Surgical DEPT: S [...] is tentatively identified. tissue is not identified. Veterinary Poultry Inspector sections focused on potential villi. Veterinary Poultry Inspector sections are submitted in three cassettes labeled A1-A3. CPT Codes 35532 Specimen: [id number] Received: 04/30/23 Status: RUBINA Dell Num: [id number] Spec Type: Surgical Subm Dr: CHUCK Astorga Tissues: A Products of Conception - Spontaneous or Missed (PRODUCTS OF CONCEPT Procedures: HE/3, Gross/Micro L4 Patient: Sarah Arce [id number] (Continued) Signed (signature on file) Tavia Abad MD 05/05/23 2315 Normal [facility] Leukocytes [#/volume] correc bridget for nucleated erythrocytes in Blood by Automated counOrdered By: CHUCK Sarkar on 04-30-2023 WBC corrected for nucl RBC Auto (Bld) [#/Vol] 8.4 10*3/uL 3.8-11.6 [facility] Leukocytes [#/volume] in Blo od by Automated countOrdered By: CHUCK Sarkar on 04-30-2023 WBC (Bld) [#/Vol] 8.4 10*3/uL Normal 3.8-11.6 [facility] Comment on above: Performed By: #### C SINDI HCGQNT #### [facility] [address] [place] [address] [place] Lymphocytes [#/volume] in Bl ood by Automated countOrdered By: CHUCK Sarkar on 04-30-2023 Lymphocytes (Bld) [#/Vol] 2.4 10*3/uL Normal 1.00-4.8 [facility] Comment on above: Performed By: #### C SINDI, HCGQNT #### [facility] [address] [place] [address] [place] Lymphocytes/100 leukocytes i n Blood by Automated countOrdered By: CHUCK Sarkar on 04-30-2023 Lymphocytes/100 WBC (Bld) 28.7 % Normal . [facility] Comment on above: Performed By: #### C SINDI, HCGQNT #### [address] MCH [Entitic mass] by Automa bridget countOrdered By: CHUCK Sarkar on 04-30-2023 MCH (RBC) [Entitic mass] 27.8 pg Normal 24.7-34.3 [facility] Comment on above: Performed By: #### C SINDI, HCGQNT #### [address] MCHC Auto (RBC) [Mass/Vol]Or dered By: CHUCK Sarkar on 04-30-2023 MCHC (RBC) [Mass/Vol] 34.7 g/dL 32.0-35.0 [facility] MCV [Entitic volume] by Auto mated countOrdered By: CHUCK Sarkar on 04-30-2023 MCV (RBC) [Entitic vol] 80.2 fL Normal 80-100 [facility] Comment on above: Performed By: #### C SINDI, HCGQNT #### [address] Neutrophils [#/volume] in Bl ood by Automated countOrdered By: CHUCK Sarkar on 04-30-2023 Neutrophils (Bld) [#/Vol] 5.3 10*3/uL Normal 1.8-7.7 [facility] Comment on above: Performed By: #### C SINDI, HCGQNT #### [address] Nucleated erythrocytes [Pres ence] in Blood by Automated countOrdered By: CHUCK Sarkar on 04-30-2023 Nucleated RBC Auto Ql (Bld) 0.1 /100{WBC} 0-0.5 [facility] Platelet mean volume [Entiti c volume] in Blood by Automated countOrdered By: SHANNON Sarkar on 02-22-2024 Platelet mean volume (Bld) [Entitic vol] 6.7 fL Normal 6.3-10.7 [facility] Comment on above: Performed By: #### C BC, HCGQNT #### [facility] [address] Platelets [#/volume] in Bloo d by Automated countOrdered By: CHUCK Sarkar on 04-30-2023 Platelets (Bld) [#/Vol] 317 10*3/uL Normal 150-450 [facility] Comment on above: Performed By: #### C BC, HCGQNT #### [facility] [address] [place] [address] US transvaginalon 04-30-2023 US transvaginal [facility] Main [place] [address] [place] [address] Ultrasound Report Signed Patient: Sarah Arce MR#: [id number] : 2000 Acct:[id number] Age/Sex: 23 / F ADM Date: 04/29/23 Loc: Room: [address] [place] [address] Type: REG CLI Attending Dr: Dawn Sarkar MD Ordering Provider: CHUCK Astorga Date of Service: 04/30/23 US/US pelvic complete: D and C scheduled ([id number]) US/US transvaginal: PRODUCTS OF CONCEPTION WITH PRIOR [...] Usama Peña M.D.04/30/2023 9:37 AM Dictation Location: [place] [address] Tech: Anca Horn Transcribed By: GISSEL 04/30/2337 Dictated By: Usama Peña DO 04/30/2333 Signed By: 04/30/23936 Normal [facility] ABO/Rh Retypeon 04-29-2023 ABO/RH Recheck Result Positive Normal [facility] Comment on above: Result Comment: PERF ORMED BY: [place] [address] PATHOLOGIST MAINFRAME DEVELOPER CHUY PALOMO M.D. Complete Blood Count Auto Di ffon 04-29-2023 Basophils (Bld) [#/Vol] 0.0 10*3/uL Normal 0.0-0.2 [facility] Comment on above: Result Comment: PERF ORMED BY: [place] [address] PATHOLOGIST MAINFRAME DEVELOPER CHUY PALOMO M.D. Performed By: #### H CGQNT, CBC #### [address] Basophils/100 WBC (Bld) 0.3 % Normal . [facility] Comment on above: Performed By: #### H CGQNT, CBC #### [address] Eosinophils (Bld) [#/Vol] 0.2 10*3/uL Normal 0.0-0.45 [facility] Comment on above: Performed By: #### H CGQNT, CBC #### [address] Eosinophils/100 WBC (Bld) 1.1 % Normal . [facility] Comment on above: Performed By: #### H CGQNT, CBC #### [address] Erythrocyte distribution width (RBC) [Ratio] 13.9 % Normal 11.9-15.3 [facility] Comment on above: Performed By: #### H CGQNT, CBC #### [address] Hematocrit (Bld) [Volume fraction] 39.8 % Normal 34.0-46.4 [facility] Comment on above: Performed By: #### H CGQNT, CBC #### [address] Hemoglobin (Bld) [Mass/Vol] 13.3 g/dL Normal 11.8-15.4 [facility] Comment on above: Performed By: #### H CGQNT, CBC #### [address] Lymphocytes (Bld) [#/Vol] 2.3 10*3/uL Normal 1.00-4.8 [facility] Comment on above: Performed By: #### H CGQNT, CBC #### [address] Lymphocytes/100 WBC (Bld) 17.0 % Normal . [facility] Comment on above: Performed By: #### H CGQNT, CBC #### [address] MCH (RBC) [Entitic mass] 27.0 pg Normal 24.7-34.3 [facility] Comment on above: Performed By: #### H CGQNT, CBC #### [address] MCV (RBC) [Entitic vol] 80.8 fL Normal 80-100 [facility] Comment on above: Performed By: #### H CGQNT, CBC #### [address] Mean Corpuscular HGB Conc 33.5 g/dL Normal 32.0-35.0 [facility] Comment on above: Performed By: #### H CGQNT, CBC #### [address] Monocytes (Bld) [#/Vol] 0.5 10*3/uL Normal 0.0-0.8 [facility] Comment on above: Performed By: #### H CGQNT, CBC #### [place] [id number] [place] Monocytes/100 WBC (Bld) 4.0 % Normal . [facility] Comment on above: Performed By: #### H CGQNT, CBC #### [address] Neutrophils (Bld) [#/Vol] 10.6 10*3/uL High 1.8-7.7 [facility] Comment on above: Performed By: #### H CGQNT, CBC #### [address] Neutrophils/100 WBC (Bld) 77.6 % Normal . [facility] Comment on above: Performed By: #### H CGQNT, CBC #### [address] NRBC% 0.2 /100{WBC} Normal 0-0.5 [facility] Comment on above: Performed By: #### H CGQNT, CBC #### [address] Platelet mean volume (Bld) [Entitic vol] 7.0 fL Normal 6.3-10.7 [facility] Comment on above: Performed By: #### H CGQNT, CBC #### [place] [address] [place] Platelets (Bld) [#/Vol] 369 10*3/uL Normal 150-450 [facility] Comment on above: Performed By: #### H CGQNT, CBC #### [address] RBC (Bld) [#/Vol] 4.93 10*6/uL Normal 3.60-5.00 [facility] Comment on above: Performed By: #### H CGQNT, CBC #### [address] WBC (Bld) [#/Vol] 13.6 10*3/uL High 3.8-11.6 [facility] Comment on above: Performed By: #### H CGQNT, CBC #### [facility] [address] [place] [address] [place] HCG,Quantitativeon 4 HCG,Quantitative 3230.00 m[iU]/mL Normal [facility] Comment on above: Result Comment: Appr oximate Approximate hCG Gestational Age Range (mIU/ml) (weeks) 0.2-1 5-50 1-2 50-500 2-3 100-5,000 3-4 500-10,000 4-5 1,000-50,000 5-6 10,000-100,000 6-8 15,000-200,000 8-12 10,000-100,000 PERFORMED BY: [place] [id number] PATHOLOGIST MAINFRAME DEVELOPER CHUY PALOMO M.D. Performed By: #### H CGQNT, CBC #### [facility] [address] [place], [place] [id number] [place] Type and Screenon 04-29-2023 ABO and Rh group Nom (Bld) Blood group A Rh(D) positive Normal [facility] Leif 04-24-2023 L Specimen: [id number] Received: 04/24/23 Status: RUBINA Sharpe Num: [id number] Spec Type: Surgical Subm Dr: Dawn Sarkar MD-JODEE Tissues: A Products of Conception - Spontaneous or Missed (POC) Procedures: HE/3, Gross/Micro L4 Age/ Patient Sex Location Account Attending Physician Sarah Arce 23/F [place] [id number] SHANNON [facility] SPEC NUM: [id number] RECD: 04/24/23 STATUS: RUBINA SHARPE NUM: [id number] MARY: 04/24/23- SUBM DR: MICHELE AstorgaS ENTERED: 04/24/[address] [facility] [address]: SPEC TYPE: Surgical DEPT: S ENTERED BY: [id number] RECV BY: [id number] ORDERED: HE/3, Gross/Micro L4 ORDERED: HE/3, Gross/Micro [...] foot length of 0.7 cm from heel-to-toe. [employer] sections are submitted in 3 cassettes as follows: A1-A2 - Villous tissue A3 - tissue CPT Codes 38961 Specimen: [id number] Received: 04/24/23 Status: RUBINA Dell Num: [id number] Spec Type: Surgical Subm Dr: Dawn Sarkar MD-NOMS Tissues: A Products of Conception - Spontaneous or Missed (POC) Procedures: HE/Jerel, Gross/Micro L4 Patient: Sarah Arce [id number] (Continued) Signed (signature on file) Tavia Abad MD 04/28/23 2321 Normal [facility] CBC AUTO DIFFon 10-02-2020 BASO # 0.0 103/ul Normal 0.0-0.1 [facility] Comment on above: Performed By: #### U MICRO, UACSIND #### [facility] [address] [place] [address] Vandana Indira Basophils/100 WBC (Bld) 0.1 % Critically low 0.2-2.0 [facility] Comment on above: Performed By: #### U MICRO, UACSIND #### [facility] [address] [place] [address] Vandanadave Jacobson EO # 0.0 103/ul Normal 0.0-0.7 [facility] Comment on above: Performed By: #### U MICRO, UACSIND #### [facility] [address] [address] Vandanadave Jacobson Eosinophils/100 WBC (Bld) 0.0 % Critically low 0.9-7.0 [facility] Comment on above: Performed By: #### U MICRO, UACSIND #### [facility] [address] [address] Vandana Jacobson Erythrocyte distribution width (RBC) [Ratio] 15.9 % Critically high 11.0-15.0 [facility] Comment on above: Performed By: #### U MICRO, UACSIND #### [facility] [address] [address] Vandana Indira Hematocrit (Bld) [Volume fraction] 33.3 % Critically low 36.0-48.0 [facility] Comment on above: Performed By: #### U MICRO, UACSIND #### [facility] [address] [place] [address] Vandana Indira Hemoglobin (Bld) [Mass/Vol] 11.2 g/dL Critically low 12.0-16.0 [facility] Comment on above: Performed By: #### U MICRO, UACSIND #### [facility] [address] [address] Vandana Indira IG # 0.07 10e3/ul Critically high 0.00-0.03 [facility] [place] Comment on above: Performed By: #### U MICRO, UACSIND #### [facility] [address] [address] Vandana Indira IG % 0.4 % Normal 0.0-0.5 [facility] Comment on above: Performed By: #### U MICRO, UACSIND #### [facility] [address] [place] [address] Vandana Indira LYMPH # 1.9 103/ul Normal 1.2-3.8 [facility] Comment on above: Performed By: #### U MICRO, UACSIND #### [facility] [address] [place] [address] Vandana Indira Lymphocytes/100 WBC (Bld) 11.4 % Critically low 20.5-60.0 [facility] Comment on above: Performed By: #### U MICRO, UACSIND #### [facility] [address] [place] [address] Vandana Jacobson MANUAL DIFF REQ NO Normal [facility] Comment on above: Performed By: #### U MICRO, UACSIND #### [facility] [address] [place] [address] Vandana Indira MCH (RBC) [Entitic mass] 27.7 pg Normal 26.7-34.0 [facility] Comment on above: Performed By: #### U MICRO, UACSIND #### [facility] [address] [place] [address] Vandanadave Jacobson MCHC (RBC) [Mass/Vol] 33.6 g/dL Normal 29.9-35.2 [facility] Comment on above: Performed By: #### U MICRO, UACSIND #### [facility] [address] [place] [address] Vandana Jacobson MCV (RBC) [Entitic vol] 82.4 fL Normal 81.0-99.0 [facility] Comment on above: Performed By: #### U MICRO, UACSIND #### [facility] [address] [address] Vandanadave Jacobson MONO # 1.0 103/ul Critically high 0.3-0.8 [facility] Comment on above: Performed By: #### U MICRO, UACSIND #### [facility] [address] [address] Vandana Indira Monocytes/100 WBC (Bld) 6.3 % Normal 1.7-12.0 [facility] Comment on above: Performed By: #### U MICRO, UACSIND #### [facility] [address] [place] [address] Vandana Indira NEUT # 13.4 103/ul Critically high 1.4-6.5 [facility] Comment on above: Performed By: #### U MICRO, UACSIND #### [facility] [address] [place] [address] Vandana Lien Neutrophils/100 WBC (Bld) 81.8 % Critically high 43.0-75.0 [facility] Comment on above: Performed By: #### U MICRO, UACSIND #### [facility] [address] [place] [address] Vandana Jacobson Platelet mean volume (Bld) [Entitic vol] 10.3 fL Normal 9.5-13.5 [facility] Comment on above: Performed By: #### U MICRO, UACSIND #### [facility] [address] [address] Vandana Indira PLT 202 103/ul Normal 150-450 [facility] Comment on above: Performed By: #### U MICRO, UACSIND #### [facility] [address] [id number] Vandana Indira RBC 4.04 106/ul Critically low 4.20-5.40 [facility] Comment on above: Performed By: #### U MICRO, UACSIND #### [facility] [address], [place] [address] Vandana Jacobson WBC 16.4 103/ul Critically high 4.0-11.0 [facility] Comment on above: Performed By: #### U MICRO, UACSIND #### [facility] [address] [place] [address] Vandana Jacobson ASYMPTOMATIC COVID-19 ANTIGE Non 10-01-2020 EUA Statement SEE BELOW Normal [facility] Comment on above: Result Comment: This test [...] sooner. Performed By: #### C VDAGA #### [facility] [address] [place] [address] Vandana Jacobson SARS-CoV-2 (COVID-19) RNA RAMA+probe Ql (Unsp spec) Negative Normal NEGATIVE [facility] Comment on above: Result Comment: Nega tive results are presumptive. They do not preclude infection and should not be used as the sole basis for treatment decisions. Additional confirmatory testing by a molecular method should be considered. Performed By: #### C VDAGA #### [facility] [address] [place] [address] Vandana Jacobson CBC AUTO DIFFon 10-01-2020 BASO # 0.0 103/ul Normal 0.0-0.1 [facility] Comment on above: Performed By: #### D RUGRPD #### [facility] [address] [place] [address] Vandana Jacobson Basophils/100 WBC (Bld) 0.1 % Critically low 0.2-2.0 [facility] Comment on above: Performed By: #### D RUGRPD #### [facility] [address] [place], [place] [address] Vandana Indira EO # 0.0 103/ul Normal 0.0-0.7 [facility] Comment on above: Performed By: #### D RUGRPD #### [facility] [address] [place], [place] [address] Vandana Indira Eosinophils/100 WBC (Bld) 0.1 % Critically low 0.9-7.0 [facility] Comment on above: Performed By: #### D RUGRPD #### [facility] [address] [place] [address] Vandana Indira Erythrocyte distribution width (RBC) [Ratio] 15.8 % Critically high 11.0-15.0 [facility] Comment on above: Performed By: #### D JESID #### [facility] [address] [place] [address] Vandana Indira Hematocrit (Bld) [Volume fraction] 40.2 % Normal 36.0-48.0 [facility] Comment on above: Performed By: #### D JUDI #### [facility] [address] [place], [place] [address] Vandana Indira Hemoglobin (Bld) [Mass/Vol] 13.4 g/dL Normal 12.0-16.0 [facility] Comment on above: Performed By: #### D RUGRPD #### [facility] [address] [place] [address] Vandana Indira IG # 0.04 10e3/ul Critically high 0.00-0.03 [facility] [place] Comment on above: Performed By: #### D JESID #### [facility] [address] [place], [place] [address] Vandana Indira IG % 0.4 % Normal 0.0-0.5 [facility] Comment on above: Performed By: #### D RUGRPD #### [facility] [address] [place], [place] [address] Vandana Indira LYMPH # 1.5 103/ul Normal 1.2-3.8 [facility] Comment on above: Performed By: #### D RUGRPD #### [facility] [address] [place], [place] [address] Vandana Jacobson Lymphocytes/100 WBC (Bld) 14.7 % Critically low 20.5-60.0 [facility] Comment on above: Performed By: #### D RUGRPD #### [facility] [address] [place], [place] [address] Vandana Jacobson MANUAL DIFF REQ NO Normal [facility] Comment on above: Performed By: #### D RUGRPD #### [facility] [address] [place], [place] [address] Vandana Jacobson MCH (RBC) [Entitic mass] 27.3 pg Normal 26.7-34.0 [facility] Comment on above: Performed By: #### D RUGRPD #### [facility] [address] [place] [address] Vandana Jacobson MCHC (RBC) [Mass/Vol] 33.3 g/dL Normal 29.9-35.2 [facility] Comment on above: Performed By: #### D RUGRPD #### [facility] [address] [place], [place] [address] Vandana Jacobson MCV (RBC) [Entitic vol] 82.0 fL Normal 81.0-99.0 [facility] Comment on above: Performed By: #### D RUGRPD #### [facility] [address] [place], [place] [address] Vandana Jacobson MONO # 0.5 103/ul Normal 0.3-0.8 [facility] Comment on above: Performed By: #### D RUGRPD #### [facility] [address] [place], [place] [address] Vandana Jacobson Monocytes/100 WBC (Bld) 5.2 % Normal 1.7-12.0 [facility] Comment on above: Performed By: #### D RUGRPD #### [facility] [address] [place] [address] Vandana Indira NEUT # 8.1 103/ul Critically high 1.4-6.5 [facility] Comment on above: Performed By: #### D RUGRPD #### [facility] [address] [place], [place] [address] Vandana Jacobson Neutrophils/100 WBC (Bld) 79.5 % Critically high 43.0-75.0 [facility] Comment on above: Performed By: #### D RUGRPD #### [facility] [address] [place], [place] [address] Vandana Jacobson Platelet mean volume (Bld) [Entitic vol] 10.6 fL Normal 9.5-13.5 [facility] Comment on above: Performed By: #### D RUGRPD #### [facility] [address] [place] [address] Vandanadave Jacobson PLT 256 103/ul Normal 150-450 [facility] Comment on above: Performed By: #### D RUGRPD #### [facility] [address] [place] [address] Vandanadave Lien RBC 4.90 106/ul Normal 4.20-5.40 [facility] Comment on above: Performed By: #### D RUGRPD #### [facility] [address] [place], [place] [address] Vandanadave Jacobson WBC 10.2 103/ul Normal 4.0-11.0 [facility] Comment on above: Performed By: #### Ceci RUGRPD #### [facility] [address] [place], [place] [address] Vandana Jacobson DRUG SCREEN RAPID (URINE)on 10-01-2020 AMP Negative Normal NEGATIVE [facility] Comment on above: Performed By: #### D RUGRPD #### [facility] [address] [place], [place] [address] Vandanadave Jacobson BAR Negative Normal NEGATIVE [facility] Comment on above: Performed By: #### D RUGRPD #### [facility] [address] [place], [place] [address] Vandana Indira BUP Negative Normal NEGATIVE [facility] Comment on above: Performed By: #### D RUGRPD #### [facility] [address] [place] [address] Vandana Indira BZO Negative Normal NEGATIVE [facility] Comment on above: Performed By: #### D RUGRPD #### [facility] [address] [place] [address] Vandana Indira ROLANDA Negative Normal NEGATIVE [facility] Comment on above: Performed By: #### D RUGRPD #### [facility] [address] [place] [address] Vandana Indira CUT-OFFS SEE BELOW Normal [facility] Comment on above: Result Comment: AMP (Amphetamine): 500ng/mL, BAR (Barbituates): 200 ng/mL, BZO (Benzodiazepines): 150 ng/mL, BUP (Buprenorphine): 10 ng/mL, ROLANDA (Cocaine): 150 ng/mL, mAMP (Methamphetamine): 500 ng/mL, MTD (Methadone): 200 ng/mL, OPI (Opiates): 100 ng/mL, OXY (Oxycodone): 100 ng/mL, PCP (Phencyclidine): 25 ng/mL, PPX (Propoxyphene): 300 ng/mL, THC (Cannabinoids): 50 ng/mL, TCA (Trycyclic Antidepressants): 300 ng/mL Performed By: #### D RUGRPD #### [facility] [address] [place] [address] Vandana Indira DRUG CUT HEADER DRUG CLASS TEST SYSTEM CUT-OFF CONCENTRATIONS ARE FOLLOWS: Normal [facility] Comment on above: Performed By: #### D RUGRPD #### [facility] [address] [place] [address] Vandana Indira mAMP Negative Normal NEGATIVE [facility] Comment on above: Performed By: #### D RUGRPD #### [facility] [address] [place] [address] Vandana Indira MTD Negative Normal NEGATIVE [facility] Comment on above: Performed By: #### D RUGRPD #### [facility] [address] [place] [address] Vandana Indira OPI Negative Normal NEGATIVE [facility] Comment on above: Performed By: #### D RUGRPD #### [facility] [address], [place] [address] Vandana Indira OXY Negative Normal NEGATIVE [facility] Comment on above: Performed By: #### D RUGRPD #### [facility] [address] [place] [address] Vandana Indira PCP Negative Normal NEGATIVE [facility] Comment on above: Performed By: #### D RUGRPD #### [facility] [address] [place] [address] Vandana Indira PPX Negative Normal NEGATIVE [facility] Comment on above: Performed By: #### D RUGRPD #### [facility] [address] [place], [place] [address] Vandana Indira TCA Negative Normal NEGATIVE [facility] Comment on above: Performed By: #### D RUGRPD #### [facility] [address] [place], [place] [address] Vandana Indira THC Negative Normal NEGATIVE [facility] Comment on above: Performed By: #### D RUGRPD #### [facility] [address] [place], [place] [address] Vandana Indira TYPE AND SCREENon 10-01-2020 TYPE AND SCREEN Negative Normal [facility] Comment on above: Performed By: #### D RUGRPD #### [facility] [address] [place], [place] [address] Vandana Indira US PREG GROWTHon 09-12-2020 US [...] EFW: 6 lbs. 13 oz., 58% FL/AC: 0.101608 FL/BPD: 0.497375 HC/AC: 0.187610 GESTATIONAL AGE: Age by EDC: 36 weeks 6 days YUE by EDC: 10/04/2020 Age by US: 37 weeks 0 days YUE by US: 10/03/2020 IMPRESSION: Normal interval growth Electronically authenticated by: KECIA LEI Date: 2020-09-12 13:13 Normal [facility] HEMOGLOBINOPATHY FRACTIONATI ON CASCADEon 09-11-2020 HGB A 97.4 % Normal 96.4-98.8 [facility] Comment on above: Performed By: #### U MICRO, UACSIND #### [facility] [address], [place] [address] Vandana Indira HGB A2 2.6 % Normal 1.8-3.2 [facility] Comment on above: Performed By: #### U MICRO, UACSIND #### [facility] [address], [place] [address] Vandana Indira HGB F 0.0 % Normal 0.0-2.0 [facility] Comment on above: Performed By: #### U MICRO, UACSIND #### [facility] [address], [place] [address] Vandana Indira HGB S 0.0 % Normal 0.0 [facility] Comment on above: Performed By: #### U MICRO, UACSIND #### [facility] [address], [place] [address] Vandana Indira Interpretation: Comment Normal [facility] Comment on above: Result Comment: Norm al hemoglobin present; no hemoglobin variant or thalassemia observed. Performed By: #### U MICRO, UACSIND #### [facility] [address], [place] [address] Vandana Indira CBC AUTO DIFFon 09-10-2020 BASO # 0.0 103/ul Normal 0.0-0.1 [facility] Comment on above: Performed By: #### C BC #### [facility] [address], [place] [address] Vandana Indira Basophils/100 WBC (Bld) 0.1 % Critically low 0.2-2.0 [facility] Comment on above: Performed By: #### C BC #### [facility] [address] [id number] Vandana Indira EO # 0.0 103/ul Normal 0.0-0.7 [facility] Comment on above: Performed By: #### C BC #### [facility] [address] [id number] Vandana Indira Eosinophils/100 WBC (Bld) 0.4 % Critically low 0.9-7.0 [facility] Comment on above: Performed By: #### C BC #### [facility] [address] [place] [address] Vandana Indira Erythrocyte distribution width (RBC) [Ratio] 16.0 % Critically high 11.0-15.0 [facility] Comment on above: Performed By: #### C BC #### [facility] [address] [place] [address] Vandana Indira Hematocrit (Bld) [Volume fraction] 36.5 % Normal 36.0-48.0 [facility] Comment on above: Performed By: #### C BC #### [facility] [address] [place], [place] [address] Vandana Indira Hemoglobin (Bld) [Mass/Vol] 12.2 g/dL Normal 12.0-16.0 [facility] Comment on above: Performed By: #### C BC #### [facility] [address] [place], [place] [address] Vandana Indira IG # 0.07 10e3/ul Critically high 0.00-0.03 [facility] Comment on above: Performed By: #### C BC #### [facility] [address] [place] [address] Vandana Indira IG % 0.9 % Critically high 0.0-0.5 [facility] Comment on above: Performed By: #### C BC #### [facility] [address] [place], [place] [address] Vandana Indira LYMPH # 1.9 103/ul Normal 1.2-3.8 [facility] Comment on above: Performed By: #### C BC #### [facility] [address] [place], [place] [address] Vandana Indira Lymphocytes/100 WBC (Bld) 23.7 % Normal 20.5-60.0 [facility] Comment on above: Performed By: #### C BC #### [facility] [address] [place], [place] [address] Vandanadave Jacobson MANUAL DIFF REQ NO Normal [facility] Comment on above: Performed By: #### C BC #### [facility] [address] [place], [place] [address] Vandana Indira MCH (RBC) [Entitic mass] 27.4 pg Normal 26.7-34.0 [facility] Comment on above: Performed By: #### C BC #### [facility] [address] [place] [address] Vandanadave Jacobson MCHC (RBC) [Mass/Vol] 33.4 g/dL Normal 29.9-35.2 [facility] Comment on above: Performed By: #### C BC #### [facility] [address] [place] [address] Vandanadave Jacobson MCV (RBC) [Entitic vol] 82.0 fL Normal 81.0-99.0 [facility] Comment on above: Performed By: #### C BC #### [facility] [address] [place] [address] Vandana Indira MONO # 0.7 103/ul Normal 0.3-0.8 [facility] Comment on above: Performed By: #### C BC #### [facility] [address] [place] [address] Vandana Indira Monocytes/100 WBC (Bld) 8.8 % Normal 1.7-12.0 [facility] Comment on above: Performed By: #### C BC #### [facility] [address] [place] [address] Vandana Indira NEUT # 5.3 103/ul Normal 1.4-6.5 [facility] Comment on above: Performed By: #### C BC #### [facility] [address] [place], [place] [address] Vandana Indira Neutrophils/100 WBC (Bld) 66.1 % Normal 43.0-75.0 [facility] Comment on above: Performed By: #### C BC #### [facility] [address] [place] [address] Vandana Jacobson Platelet mean volume (Bld) [Entitic vol] 11.6 fL Normal 9.5-13.5 [facility] Comment on above: Performed By: #### C BC #### [facility] [address] [place] [address] Vandana Jacobson PLT 221 103/ul Normal 150-450 [facility] Comment on above: Performed By: #### C BC #### [facility] [address] [place] [address] Vandana Indira RBC 4.45 106/ul Normal 4.20-5.40 [facility] Comment on above: Performed By: #### C BC #### [facility] [address] [place] [address] Vandana Jacobson WBC 8.1 103/ul Normal 4.0-11.0 [facility] Comment on above: Performed By: #### C BC #### [facility] [address] [place] [address] Vandana Jacobson VAGINITIS/VAGINOSIS DNA PROB Miller 09-08-2020 Nichole species Negative Normal Negative [facility] Comment on above: Performed By: #### V AGINT #### [facility] [address] [place] [address] Vandana Jacobson Gardnerella vaginalis Negative Normal Negative [facility] Comment on above: Performed By: #### V AGINT #### [facility] [address] [place] [address] Vandana Jacobson Trichomonas vaginalis Negative Normal Negative [facility] Comment on above: Performed By: #### V AGINT #### [facility] [address] [place] [address] Vandana Jacobson CHLAMYDIA/GONOCOCCUS RAMA (SW AB/URINE/PAPon 09-07-2020 Chlamydia trachomatis, RAMA Negative Normal Negative [facility] Comment on above: Performed By: #### D RUGRPD #### [facility] [address] [place] [address] Vandana Indira Neisseria gonorrhoeae, RAMA Negative Normal Negative [facility] Comment on above: Performed By: #### D RUGRPD #### [facility] [address] [place] [address] Vandana Jacobson GROUP B STREP CULTUREon -0 S. agalactiae Ag Ql (Unsp spec) Culture Observations: NEGATIVE FOR GROUP B STREPTOCOCCUS. Normal [facility] Comment on above: Performed By: #### D RUGRPD #### [facility] [address] [place] [address] Vandana Indira CULTURE URINEon 08-31-2020 CULTURE URINE Culture Observations: LIGHT GROWTH OF MIXED GENITAL TEDDY. NO POTENTIAL PATHOGENS SEEN. Normal [facility] Comment on above: Performed By: #### D RUGRPD #### [facility] [address] [place] [address] Vandana Indira UA (CLEAN/CATCH) CHILD CARE COORDINATOR/MICRO I F IND.on 08-31-2020 Bilirubin Ql (U) Negative Normal NEGATIVE [facility] Comment on above: Performed By: #### U MICRO, UACSIND #### [facility] [address] [place] [address] Vandana Indira Clarity (U) SL CLOUDY Abnormal CLEAR [facility] Comment on above: Performed By: #### U MICRO, UACSIND #### [facility] [address] [place] [address] Vandana Indira Color (U) LT. YELLOW Normal YELLOW The [facility] Comment on above: Performed By: #### U MICRO, UACSIND #### [facility] [address] [place] [address] Vandana Indira Glucose Ql (U) Negative Normal NEGATIVE The [facility] Comment on above: Performed By: #### U MICRO, UACSIND #### [facility] [address] [place] [address] Vandana Indira Hemoglobin Ql (U) Negative Normal NEGATIVE [facility] Comment on above: Performed By: #### U MICRO, UACSIND #### [facility] [address] [address] Vandana Indira Ketones Ql (U) 15 mg/dl Abnormal NEGATIVE The [facility] Comment on above: Performed By: #### U MICRO, UACSIND #### [facility] [address] [place] [address] Vandana Indira LEUKOCYTES SMALL Abnormal NEGATIVE The [facility] Comment on above: Performed By: #### U MICRO, UACSIND #### [facility] [address] [address] Vandana Indira Nitrite Ql (U) Negative Normal NEGATIVE [facility] Comment on above: Performed By: #### U MICRO, UACSIND #### [facility] [address] [place] [address] Vandana Indira pH (U) 7.0 [pH] Normal 5-9 [facility] Comment on above: Performed By: #### U MICRO, UACSIND #### [facility] [address] [place] [address] Vandana Indira SPEC GRAVITY 1.015 Normal 1.005-<=1.025 The [facility] Comment on above: Performed By: #### U MICRO, UACSIND #### [facility] [address] [place] [address] Vandana Indira UA PROTEIN Negative Normal NEGATIVE/ TRACE The [facility] Comment on above: Performed By: #### U MICRO, UACSIND #### [facility] [address] [place] [address] Vandana Indira UR MICRO IND INDICATED Normal The [facility] Comment on above: Performed By: #### U MICRO, UACSIND #### [facility] [address] [place] [address] Vandana Indira Urobilinogen Qn (U) 0.2 {Richard'U}/dL Normal 0.2 - 1. 0 [facility] Comment on above: Performed By: #### U MICRO, UACSIND #### [facility] [address] [place] [address] Vandana Indira URINE MICROSCOPIC ONLYon 06- 25-2021 BACTERIA SMALL Abnormal NONE SEEN The [facility] Comment on above: Performed By: #### U MICRO, UACSIND #### [facility] [address] [place] [address] Vandana Indira Bacteria identified Cx Nom (U) INDICATED Normal The [facility] Comment on above: Performed By: #### U MICRO, UACSIND #### [facility] [address] [place] [address] Vandana Indira CAST NONE SEEN Normal NONE SEEN The [facility] Comment on above: Performed By: #### U MICRO, UACSIND #### [facility] [address] [place] [address] Vandana Indira Crystals LM Nom (Urine sed) NONE SEEN Normal NONE SEEN The [facility] Comment on above: Performed By: #### U MICRO, UACSIND #### [facility] [address] [place] [address] Vandana Indira Epithelial cells LM Ql (Urine sed) MODERATE Abnormal NONE SEEN /RARE The [facility] Comment on above: Performed By: #### U MICRO, UACSIND #### [facility] [address] [place] [address] Vandana Indira MUCOUS NONE SEEN Normal NONE SEEN The [facility] Comment on above: Performed By: #### U MICRO, UACSIND #### [facility] [address] [place] [address] Vandana Indira RBC NONE SEEN Abnormal 0-2 [facility] Comment on above: Performed By: #### U MICRO, UACSIND #### [facility] [address] [place] [address] Vandana Indira WBC NONE SEEN Normal NONE SEEN The [facility] Comment on above: Performed By: #### U MICRO, UACSIND #### [facility] [address] [place] [address] Vandana Indira CULTURE URINEon 08-01-2020 CULTURE URINE Culture Observations: LIGHT GROWTH OF MIXED GENITAL TEDDY. NO POTENTIAL PATHOGENS SEEN. Normal The [facility] Comment on above: Performed By: #### U RCX #### [facility] [address] [place] [address] Vandana Indira UA RANDOM W/MICROSCOPICon BACTERIA TRACE Abnormal NONE SEEN The [facility] Comment on above: Performed By: #### U AMIC #### [facility] [address] [place] [address] Vandana Indira Bilirubin Ql (U) Negative Normal NEGATIVE [facility] Comment on above: Performed By: #### U AMIC #### [facility] [address] [place] [address] Vandana Indira CAST NONE SEEN Normal NONE SEEN The [facility] Comment on above: Performed By: #### U AMIC #### [facility] [address] [place] [address] Vandana Indira Clarity (U) CLEAR Normal CLEAR The [facility] Comment on above: Performed By: #### U AMIC #### [facility] [address] [place] [address] Vandana Indira Color (U) LT. YELLOW Normal YELLOW The [facility] Comment on above: Performed By: #### U AMIC #### [facility] [address] [place] [address] Vandana Indira Crystals LM Nom (Urine sed) NONE SEEN Normal NONE SEEN The [facility] Comment on above: Performed By: #### U AMIC #### [facility] [address] [place] [address] Vandana Indira Epithelial cells LM Ql (Urine sed) FEW Abnormal NONE SEEN /RARE The [facility] Comment on above: Performed By: #### U AMIC #### [facility] [address] [place] [address] Vandana Indira Glucose Ql (U) Negative Normal NEGATIVE The [facility] Comment on above: Performed By: #### U AMIC #### [facility] [address] [place] [address] Vandana Indira Hemoglobin Ql (U) Negative Normal NEGATIVE [facility] Comment on above: Performed By: #### U AMIC #### [facility] [address] [place] [address] Vandana Indira Ketones Ql (U) Negative Normal NEGATIVE The [facility] Comment on above: Performed By: #### U AMIC #### [facility] [address] [place] [address] Vandana Indira LEUKOCYTES Negative Normal NEGATIVE [facility] Comment on above: Performed By: #### U AMIC #### [facility] [address] [place], [place] [id number] Vandana Indira MUCOUS NONE SEEN Normal NONE SEEN The [facility] Comment on above: Performed By: #### U AMIC #### [facility] [address] [address] Vandana Indira Nitrite Ql (U) Negative Normal NEGATIVE The [facility] Comment on above: Performed By: #### U AMIC #### [facility] [address] [place] [address] Vandana Indira pH (U) 7.5 [pH] Normal 5-9 [facility] Comment on above: Performed By: #### U AMIC #### [facility] [address] [place] [address] Vandana Indira RBC 0-2 Normal 0-2 [facility] Comment on above: Performed By: #### U AMIC #### [facility] [address] [place] [address] Vandana Indira SPEC GRAVITY 1.015 Normal 1.005-<=1.025 [facility] Comment on above: Performed By: #### U AMIC #### [facility] [address] [place] [address] Vandana Indira UA PROTEIN Negative Normal NEGATIVE/ TRACE The [facility] Comment on above: Performed By: #### U AMIC #### [facility] [address] [place] [address] Vandana Indira Urobilinogen Qn (U) 0.2 {Richard'U}/dL Normal 0.2 - 1. 0 [facility] Comment on above: Performed By: #### U AMIC #### [facility] [address] [place] [address] Vandana Indira WBC 0-2 Abnormal NONE SEEN The [facility] Comment on above: Performed By: #### U AMIC #### [facility] [address] [place] [address] Vandana Indira CBC AUTO DIFFon 12-17-2019 BASO # 0.0 103/ul Normal 0.0-0.1 [facility] Comment on above: Performed By: #### C BC #### [facility] [address] [place], [place] [id number] Vandana Indira Basophils/100 WBC (Bld) 0.1 % Critically low 0.2-2.0 [facility] Comment on above: Performed By: #### C BC #### [facility] [address] [place], [place] [address] Vandana Indira EO # 0.1 103/ul Normal 0.0-0.7 [facility] Comment on above: Performed By: #### C BC #### [facility] [address] [place] [address] Vandana Indira Eosinophils/100 WBC (Bld) 0.9 % Normal 0.9-7.0 [facility] Comment on above: Performed By: #### C BC #### [facility] [address] [place] [address] Vandana Indira Erythrocyte distribution width (RBC) [Ratio] 14.3 % Normal 11.0-15.0 [facility] Comment on above: Performed By: #### C BC #### [facility] [address] [place], [place] [address] Vandana Indira Hematocrit (Bld) [Volume fraction] 40.5 % Normal 36.0-48.0 [facility] Comment on above: Performed By: #### C BC #### [facility] [address] [place], [place] [address] Vandana Indira Hemoglobin (Bld) [Mass/Vol] 13.2 g/dL Normal 12.0-16.0 [facility] Comment on above: Performed By: #### C BC #### [facility] [address] [place] [address] Vandana Indira IG # 0.01 10e3/ul Normal 0.00-0.03 [facility] Comment on above: Performed By: #### C BC #### [facility] [address] [place], [place] [address] Vandana Indira IG % 0.1 % Normal 0.0-0.5 [facility] Comment on above: Performed By: #### C BC #### [facility] [address] [place], [place] [address] Vandana Indira LYMPH # 2.0 103/ul Normal 1.2-3.8 [facility] Comment on above: Performed By: #### C BC #### [facility] [address] [place], [place] [address] Vandanadave Lien Lymphocytes/100 WBC (Bld) 27.9 % Normal 20.5-60.0 [facility] Comment on above: Performed By: #### C BC #### [facility] [address] [place] [address] Vandana Jacobson MANUAL DIFF REQ NO Normal [facility] Comment on above: Performed By: #### C BC #### [facility] [address] [place] [address] Vandana Indira MCH (RBC) [Entitic mass] 25.7 pg Critically low 26.7-34.0 [facility] Comment on above: Performed By: #### C BC #### [facility] [address] [place], [place] [address] Vandanadave Jacobson MCHC (RBC) [Mass/Vol] 32.6 g/dL Normal 29.9-35.2 [facility] Comment on above: Performed By: #### C BC #### [facility] [address] [place] [address] Vandana Indira MCV (RBC) [Entitic vol] 78.9 fL Critically low 81.0-99.0 [facility] Comment on above: Performed By: #### C BC #### [facility] [address] [place] [address] Vandana Indira MONO # 0.5 103/ul Normal 0.3-0.8 [facility] Comment on above: Performed By: #### C BC #### [facility] [address] [place], [place] [address] Vandana Indira Monocytes/100 WBC (Bld) 7.0 % Normal 1.7-12.0 [facility] Comment on above: Performed By: #### C BC #### [facility] [address] [place], [place] [address] Vandana Jacobson NEUT # 4.5 103/ul Normal 1.4-6.5 [facility] Comment on above: Performed By: #### C BC #### [facility] [address] [place], [place] [address] Vandana Jacobson Neutrophils/100 WBC (Bld) 64.0 % Normal 43.0-75.0 [facility] Comment on above: Performed By: #### C BC #### [facility] [address] [place], [place] [address] Vandana Jacobson Platelet mean volume (Bld) [Entitic vol] 8.9 fL Critically low 9.5-13.5 [facility] Comment on above: Performed By: #### C BC #### [facility] [address] [place] [address] Vandana Jacobson PLT 345 103/ul Normal 150-450 [facility] Comment on above: Performed By: #### C BC #### [facility] [address] [place] [address] Vandana Jacobson RBC 5.13 106/ul Normal 4.20-5.40 [facility] Comment on above: Performed By: #### C BC #### [facility] [address] [place] [address] Vandana Jacobson WBC 7.1 103/ul Normal 4.0-11.0 [facility] Comment on above: Performed By: #### C BC #### [facility] [address] [place] [address] Vandana Jacobson FERRITINon 12-17-2019 Ferritin [Mass/Vol] 27.0 ng/mL Normal 6.2-137.0 [facility] Comment on above: Performed By: #### D RUGRPD #### [facility] [address] [place] [address] Vandana Jacobson IRONon 12-17-2019 Iron [Mass/Vol] 35.0 ug/dL Critically low 37.0-170.0 [facility] Comment on above: Performed By: #### D RUGRPD #### [facility] [address] [place], [place] [address] Vandana Jacobson PROF 14(COMP METB)on 020 Albumin [Mass/Vol] 3.7 g/dL Normal 3.5-5.0 [facility] Comment on above: Performed By: #### C MP #### [facility] [address] [place], [place] [address] Vandana Indira Albumin/Globulin [Mass ratio] 0.9 {ratio} Normal [facility] Comment on above: Performed By: #### C MP #### [facility] [address] [place], [place] [address] Vandana Indira ALP [Catalytic activity/Vol] 82 U/L Normal 38-126 [facility] Comment on above: Performed By: #### C MP #### [facility] [address] [place] [address] Vandana Indira ALT [Catalytic activity/Vol] 21 U/L Normal 9-52 [facility] Comment on above: Performed By: #### C MP #### [facility] [address] [place], [place] [address] Vandana Indira Anion gap [Moles/Vol] 12.5 mmol/L Normal [facility] Comment on above: Performed By: #### C MP #### [facility] [address] [place], [place] [address] Vandana Indira AST [Catalytic activity/Vol] 15 U/L Normal 14-36 [facility] Comment on above: Performed By: #### C MP #### [facility] [address] [place], [place] [address] Vandana Indira Bilirubin [Mass/Vol] 0.3 mg/dL Normal 0.2-1.3 [facility] Comment on above: Performed By: #### C MP #### [facility] [address] [place], [place] [address] Vandana Indira Calcium [Mass/Vol] 9.5 mg/dL Normal 8.4-10.2 [facility] Comment on above: Performed By: #### C MP #### [facility] [address] [id number] Vandana Indira Chloride [Moles/Vol] 104 mmol/L Normal 98-107 [facility] Comment on above: Performed By: #### C MP #### [facility] [address] [address] Vandana Indira CO2 [Moles/Vol] 28.4 mmol/L Normal 22.0-30.0 [facility] Comment on above: Performed By: #### C MP #### [facility] [address] [address] Vandana Indira Creatinine [Mass/Vol] 0.69 mg/dL Normal 0.52-1.04 [facility] Comment on above: Performed By: #### C MP #### [facility] [address] [place] [address] Vandana Indira EGFR-AF [place] >60 Normal >=60 [facility] Comment on above: Performed By: #### C MP #### [facility] [address] [place] [address] Vandana Indira EGFR-NON AF [place] >60 Normal >=60 [facility] Comment on above: Performed By: #### C MP #### [facility] [address] [place], [place] [address] Vandana Indira Globulin (S) [Mass/Vol] 4.1 g/dL Normal [facility] Comment on above: Performed By: #### C MP #### [facility] [address] [place] [address] Vandana Indira Glucose [Mass/Vol] 94 mg/dL Normal 74-106 [facility] Comment on above: Performed By: #### C MP #### [facility] [address] [place], [place] [address] Vandana Indira Potassium [Moles/Vol] 3.9 mmol/L Normal 3.4-5.0 [facility] Comment on above: Performed By: #### C MP #### [facility] [address] [place] [address] Vandana Indira Protein [Mass/Vol] 7.8 g/dL Normal 6.1-8.2 [facility] Comment on above: Performed By: #### C MP #### [facility] [address] [address] Vandana Jacobson Sodium [Moles/Vol] 141 mmol/L Normal 137-145 [facility] Comment on above: Performed By: #### C MP #### [facility] [address] [address] Vandana Indira Urea nitrogen [Mass/Vol] 16.0 mg/dL Normal 7.0-17.0 [facility] Comment on above: Performed By: #### C MP #### [facility] [address] [place] [address] Vandana Jacobson Urea nitrogen/Creatinine [Mass ratio] 23.2 mg/mg Normal [facility] Comment on above: Performed By: #### C MP #### [facility] Laboratory [address] [address] Vandanadave Jacobson PROTIMEon 12-17-2019 INR Coag (PPP) [Relative time] 0.97 {INR} Normal [facility] Comment on above: Performed By: #### D RUGBELA #### [facility] Laboratory [address] [place] [address] Vandana Indira INR GUIDELINES SEE BELOW Normal The [facility] Comment on above: Result Comment: ABHIJIT RED INR: 2.0 - 3.0 CONDITIONS NOT LISTED BELOW 2.5 - 3.5 FOR PROSTHETIC HEART VALVE REPLACEMENT 2.5 - 3.5 RECURRENT THROMBOSIS Performed By: #### D RUGRPD #### [facility] Laboratory [address] [place] [address] Vandana Indira PT Coag (PPP) [Time] 10.3 s Normal 9.0-11.6 [facility] Comment on above: Performed By: #### D RUGRPD #### [facility] Laboratory [address] [place], [place] [id number] Vandana Indira PT NORMAL PLEASE NOTE: NORMAL RANGE CHANGE 11-24-2013 DUE TO REAGENT LOT CHANGE Normal [facility] Comment on above: Performed By: #### D RUGRPD #### [facility] Laboratory [address], [place] [address] Vandana Jacobson PTTon 12-17-2019 aPTT Coag (Bld) [Time] 30.7 s Normal 22.3-36.2 [facility] Comment on above: Performed By: #### D RUGRPD #### [facility] Laboratory [address], [place] [address] Vandana Jacobson PTT NORMAL PLEASE NOTE: NORMAL RANGE CHANGE 01-31-2015 DUE TO REAGENT LOT CHANGE Normal [facility] Comment on above: Performed By: #### D RUGRPD #### [facility] Laboratory [address], [place] [address] Vandana Jacobson Vital Signs Date Time Vital Sign Value Performing Clinician Facility 04-07-2024 13:43-0500 Body mass index (BMI) [Ratio] 32.52 kg/m2 [facility] Nurse [facility] 04-07-2024 13:43-0500 Body weight 73.03 kg [facility] Nurse [facility] 04-07-2024 13:43-0500 Diastolic blood pressure 72 mm[Hg] [facility] Nurse [facility] 04-07-2024 13:43-0500 Systolic blood pressure 118 mm[Hg] [facility] Nurse [facility] 01-06-2024 10:50-0400 Body height 149.9 cm Sarah NGUYEN Work Phone: [facility] 01-06-2024 10:50-0400 Body mass index (BMI) [Ratio] 32.47 kg/m2 Sarah NGUYEN Work Phone: [facility] 01-06-2024 10:50-0400 Body weight 72.92 kg Sarah NGUYEN Work Phone: [facility] 01-06-2024 10:50-0400 Diastolic blood pressure 78 mm[Hg] Sarah NGUYEN Work Phone: [facility] 01-06-2024 10:50-0400 Systolic blood pressure 118 mm[Hg] Sarah NGUYEN Work Phone: [facility] 04-30-2023 10:23-0500 Diastolic blood pressure 84 mm[Hg] PHYSICIAN NO FAMILY [facility] 04-30-2023 10:23-0500 Heart rate 67 /min PHYSICIAN NO [facility] 04-30-2023 10:23-0500 Respiratory rate 18 /min PHYSICIAN NO [facility] 04-30-2023 10:23-0500 SaO2% (BldA) [Mass fraction] 99 % PHYSICIAN NO [facility] 04-30-2023 10:23-0500 Systolic blood pressure 130 mm[Hg] PHYSICIAN NO [facility] 04-30-2023 08:53-0500 Body temperature 98.3 [degF] PHYSICIAN NO [facility] 04-30-2023 08:12-0500 Inhaled oxygen flow rate 8 L/min PHYSICIAN NO [facility] 04-30-2023 07:44-0500 Body height 152.4 cm PHYSICIAN NO [facility] 04-30-2023 07:44-0500 Body mass index (BMI) [Ratio] 28.7 kg/m2 PHYSICIAN NO [facility] 04-30-2023 07:44-0500 Body weight 66.67 kg PHYSICIAN NO [facility] 04-24-2023 11:55-0500 Diastolic blood pressure 86 mm[Hg] PHYSICIAN NO [facility] 04-24-2023 11:55-0500 Heart rate 65 /min PHYSICIAN NO [facility] 04-24-2023 11:55-0500 Respiratory rate 16 /min PHYSICIAN NO [facility] 04-24-2023 11:55-0500 SaO2% (BldA) [Mass fraction] 100 % PHYSICIAN NO [facility] 04-24-2023 11:55-0500 Systolic blood pressure 119 mm[Hg] PHYSICIAN NO [facility] 04-24-2023 11:07-0500 Body temperature 98 [degF] PHYSICIAN NO [facility] 04-24-2023 10:42-0500 Inhaled oxygen flow rate 8 L/min PHYSICIAN NO [facility] 04-24-2023 08:52-0500 Body height 152.4 cm PHYSICIAN NO [facility] 04-24-2023 08:52-0500 Body mass index (BMI) [Ratio] 29 kg/m2 PHYSICIAN NO [facility] 04-24-2023 08:52-0500 Body weight 67.58 kg PHYSICIAN NO [facility] 04-20-2023 08:56-0500 Body mass index (BMI) [Ratio] 30.09 kg/m2 Dawn Sarkar MD Work Phone: [facility] 04-20-2023 08:56-0500 Body weight 67.59 kg Dawn Sarkar MD Work Phone: [facility] 04-20-2023 08:56-0500 Diastolic blood pressure 66 mm[Hg] Dawn Sarkar MD Work Phone: [facility] 04-20-2023 08:56-0500 Systolic blood pressure 110 mm[Hg] Dawn Sarkar MD Work Phone: [facility] Healthcare Encounters Encounter Date Encounter Type [...] 12-01-2023 End: 12-01-2023 Clinisync Result Encounter Newton Rual DO Work Phone: [facility] External [facility] Unsolicited Start: 11-13-2023 End: 11-13-2023 Clinisync Result Encounter Newton Raul DO Work Phone: [facility] External [facility] Unsolicited Start: 11-13-2023 End: 11-13-2023 Clinisync Result Encounter Newton Raul DO Work Phone: [facility] External Department Unsolicited Start: 11-13-2023 End: 11-13-2023 ambulatory PHYSICIAN NO [facility] Work Phone: Start: 11-13-2023 End: 11-13-2023 Departed Referred PHYSICIAN NO [facility] Work Phone: Start: 11-12-2023 End: 11-12-2023 Clinisync Result Encounter Newton Raul DO Work Phone: [facility] External Department Unsolicited Start: 11-12-2023 End: 11-12-2023 Clinisync Result Encounter Newton Carter DO Work Phone: [facility] External Department Unsolicited Start: 05-11-2023 End: 05-11-2023 ambulatory DAWN SARKAR Not Available Start: 04-29-2023 End: 04-30-2023 Patient encounter procedure PHYSICIAN NO [facility] [place] [address] Medical - O/P Start: 04-29-2023 End: 04-30-2023 ambulatory PHYSICIAN NO [facility] Work Phone: Start: 04-24-2023 End: 04-24-2023 Admission to same day surgery center PHYSICIAN NO [facility] [place] Start: 04-24-2023 End: 04-24-2023 ambulatory PHYSICIAN NO [facility] Work Phone: Start: 04-20-2023 End: 04-20-2023 Office [...] BURK Facility:H1 Start: 09-12-2020 End: 09-13-2020 ambulatory TEERNCE SCHMITZ Facility:[facility]1 Start: 09-10-2020 End: 09-11-2020 ambulatory [...] 12-01-2023 [facility] PREG QUANT HCG Core y Ralu DO Work Phone: Start: 11-13-2023 ALL CBC [...] on above: Result Comment: PERF ORMED BY: [facility] [address] [place] [address] PATHOLOGIST MAINFRAME DEVELOPER CHUY PALOMO M.D. Start: 04-24-2023 Dilation and curetta ge of uterus PHYSICIAN NO FAMILY Start: 10-01-2020 Delivery of Products of Conception, External Approach TERENCE SCHMITZ Start: 10-01-2020 Repair Vulva, Computer Operator al Approach TERENCE TEIXEIRA CHRISTIANMarisolBALJINDERBronwyn Plan of Treatment Date Care Activity Detail Author Start: 07-11-2024 End: 07-11-2024 Patient encounter procedure 07/11/2024 11:00 AM EDT Office Visit [facility] [address] [place] [phone] Sarah Kern PA [address] [place] [address] [facility] Start: 05-09-2024 End: 05-09-2024 Patient encounter procedure [facility] Comment on above: Arrived Start: 04-07-2024 End: 04-07-2025 ABO/Rh ABO/Rh Lab Routine Missed menses , unspecified gestational age Expected: 04/07/2024 (Approximate), Expires: 04/07/2025 [facility] Comment on above: Expected: 04/07/2024 (Approximate), Expires: 04/07/2025 Start: 04-07-2024 End: 04-07-2025 Blood type and Indirect antibody screen panel - Blood Type and screen Lab Routine Missed menses , unspecified gestational age Expected: 04/07/2024 (Approximate), Expires: 04/07/2025 [facility] Work Phone: Comment on above: Expected: 04/07/2024 (Approximate), Expires: 04/07/2025 Start: 04-07-2024 End: 04-07-2025 Drugs of abuse panel - Urine by Screen method Rapid drug screen, urine Lab Routine , unspecified gestational age Encounter for supervision of normal first in first trimester Expected: 04/07/2024 (Approximate), Expires: 04/07/2025 [facility] Comment on above: Expected: 04/07/2024 (Approximate), Expires: 04/07/2025 Start: 01-06-2024 End: 01-06-2024 Patient encounter procedure 01/06/2024 10:40 AM EDT Office Visit [facility] [address] [place] [phone] Sarah Kern PA [address] [place], [place] [phone] Arrived [facility] Comment on above: Arrived Start: 11-13-2023 End: 11-13-2023 Patient encounter procedure 11/13/2023 9:30 AM EDT Procedure Visit [facility] Newton Carter, [address] [address] [facility] Start: 11-08-2023 Influenza vaccination Influenza Vacc ine (#1) [facility] Start: 04-30-2023 [facility] Start: 04-24-2023 [facility] Start: 04-24-2023 End: 04-24-2023 [facility] Start: 04-20-2023 End: 04-20-2024 hCG, quantitative [facility] Work Phone: Comment on above: Ordered: 04/20/2023 Expected: 04/20/2023 (Approximate), Expires: 04/20/2024 Start: 04-13-2023 End: 04-13-2023 Patient encounter procedure 04/13/2023 9:45 AM EST Office Visit [facility] [address] [place] [address] Dawn Sarkar MD [address] [place] [address] [facility] Start: 04-13-2023 End: 04-13-2023 Professional / ancillary services management 04/13/2023 9:30 AM EST Ancillary Procedure [facility] [address] [place] [address] [facility] Bacteria identified in Urine by Culture Urine culture Microbiology Routine Missed menses Ordered: 04/07/2024 [facility] Healthcare Comment on above: Ordered: 04/07/2024 Basophils [#/volume] in Blood by Automated count [facility] Basophils/100 leukocytes in Blood by Automated count [facility] CBC W Auto Different ial panel - Blood CBC and differential Lab Routine Missed menses , unspecified gestational age Ordered: 04/07/2024 [facility] Comment on above: Ordered: 04/07/2024 Eosinophils/100 leukocytes in Blood by Automated count [facility] Erythrocyte distribution width [Ratio] by Automated count [facility] Erythrocytes [#/volu me] in Blood [facility] Hematocrit [Volume Fraction] of Blood [facility] Hemoglobin [Mass/volume] in Blood [facility] Hemoglobin A1c/Hemoglobin.total in Blood Hemoglobin A1c Lab Routine Missed menses , unspecified gestational age Ordered: 04/07/2024 [facility] Comment on above: Ordered: 04/07/2024 Hepatitis B virus surface Ag [Presence] in Serum or Plasma by Immunoassay Hepatitis B surface antigen Lab Routine Missed menses , unspecified gestational age Ordered: 04/07/2024 [facility] Comment on above: Ordered: 04/07/2024 Hepatitis C virus Ab [Presence] in Serum or Plasma by Immunoassay Hepatitis C antibody Lab Routine Missed menses , unspecified gestational age Ordered: 04/07/2024 [facility] Comment on above: Ordered: 04/07/2024 HIV-1/HIV-2 antigen/antibody combination immunoassay HIV-1 and HIV-2 antibodies Lab Routine Missed menses , unspecified gestational age Ordered: 04/07/2024 [facility] Comment on above: Ordered: 04/07/2024 Leukocytes [#/volume ] corrected for nucleated erythrocytes in Blood by Automated coun [facility] Leukocytes [#/volume ] in Blood [facility] Lymphocytes [#/volum e] in Blood by Automated count [facility] Lymphocytes/100 leukocytes in Blood by Automated count [facility] MCH [Entitic mass] b y Automated count [facility] MCHC [Mass/volume] b y Automated count [facility] MCV [Entitic volume] by Automated count [facility] Monocytes [#/volume] in Blood by Automated count [facility] Monocytes/100 leukocytes in Blood by Automated count [facility] MYCOPLASMA/UREAPLASM A PANEL MYCOPLASMA/UREAPLASMA PANEL Lab Routine Vaginal discharge Ordered: 04/20/2023 [facility] Comment on above: Ordered: 04/20/2023 Neutrophils [#/volum e] in Blood by Automated count [facility] Neutrophils/100 leukocytes in Blood by Automated count [facility] Nucleated erythrocyt es [Presence] in Blood by Automated count [facility] Patient Education [facility] Work Phone: Patient referral [facility] Work Phone: Platelet mean volume [Entitic volume] in Blood by Automated count [facility] Platelets [#/volume] in Blood [facility] Reagin Ab [Presence] in Serum by RPR RPR Lab Routine Missed menses , unspecified gestational age Ordered: 04/07/2024 [facility] Comment on above: Ordered: 04/07/2024 Rubella antibody, IgG Rubella an tibody, IgG Lab Routine Missed menses , unspecified gestational age Ordered: 04/07/2024 [facility] Comment on above: Ordered: 04/07/2024 Payers Date Payer Category Payer Self-pay 2023 [facility] BCBS [id number] 2023 Unknown BCBS BCBS xxxxxx [id number] 2023-Present [phone] [address] [place] [address] [id number] 2023 Unknown [id number] 1998 Unknown [id number] 2.16.840.1.119942.3.579.2. 593 1998 Unknown [id number] 2.16.840.1.261910.3.579.2. 593 1998 Unknown [id number] 2.16.840.1.326967.3.579.2. 593 1998 Unknown [id number] 2.16.840.1.333851.3.579.2. 593 1998 Unknown [id number] 2.16.840.1.252724.3.579.2. 593 1998 Unknown [id number] 2.16.840.1.475396.3.579.2. 593 1998 Unknown [id number] 2.16.840.1.132712.3.579.2. 593 1998 Unknown [id number] 2.16.840.1.839292.3.579.2. 593 1998 Unknown [id number] 2.16.840.1.985394.3.579.2. 593 1998 Unknown [id number] 2.16.840.1.744605.3.579.2. 1259 1998 Unknown [id number] 2.16.840.1.692320.3.579.2. 1259 1998 Unknown [id number] 2.16.840.1.767759.3.579.2. 1259 1998 Unknown [id number] 2.16.840.1.272173.3.579.2. 1259 1998 Unknown [id number] 2.16.840.1.032597.3.579.2. 1259 1998 Unknown [id number] 2.16.840.1.992162.3.579.2. 1259 1998 Unknown [id number] 2.16.840.1.085011.3.579.2. 1259 1998 Unknown [id number] 2.16.840.1.736561.3.579.2. 1259 1998 Unknown [id number] 2.16.840.1.342623.3.579.2. 1259 1959 Unknown [id number] 1959 Unknown [id number] Unknown [id number] 2.16.840.1.201616.3.579.2. 531 Unknown [id number] 2.16.840.1.322348.3.579.2. 531 Unknown [id number] 2.16.840.1.279735.3.579.2. 531 Social History Date Type Detail Facility [...] Start: 2000 Sex Assigned At Female [facility] How often to you hav e [...] Facility 04-29-2023 Functional status Patient at Baseline [facility] Work Phone: Mental Status Date Assessment Result Facility 04-29-2023 Cognitive function Cognitive Sta tus Patient at Baseline [facility] Work Phone: History of Present illness [...] or undercooked meat, and stay away from formerly [facility]. Patient has also been advised to [...] after having a D&C performed at [facility] with Dr. Carter. 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 History of Present Illness [...] negative unless noted below or in HPI [facility] Medical History (Updated 04/29/23 @ 22:08 by [...] 1,000 mls @ 125 mls/hr IV .Q8H [facility] Stop: 04/28/24 16:59 Last Admin: 04/29/23 17:50 Dose: 125 mls/hr Cefazolin Sodium (Ancef) 2 gm in 50 mls @ 100 mls/hr IV Q8H [facility] Last Admin: 04/29/23 17:51 Dose: 100 mls/hr Oxytocin 40 unit/ Lactated (Ringer's) 504 mls @ 150 mls/hr IV .Q3H22M ONE; Protocol Stop: 04/30/23 02:21 Misoprostol (Misoprostol 200 Mcg Tablet) 800 mcg VAGINAL Q4H [facility] Stop: 04/30/23 02:31 SPRAY BOOTH OPERATOR - Exam Physical Exam Vital signs: [...] Routine Psychiatric Exam Psychiatric: Present normal affect SPRAY BOOTH OPERATOR - Results Laboratory Results - Last 48 hrs. 04/29/23 20:27: Blood Type Recheck A Positive 04/29/23 17:45: HCG, Quant 3230.00 04/29/23 17:31: Corrected WBC 13.6 H, Uncorrected WBC Count 13.6 H, RBC 4.93, Hgb 13.3, Hct 39.8, MCV 80.8, MCH 27.0, MCHC 33.5, RDW 13.9, Plt Count 369, MPV 7.0, Neut % (Auto) 77.6, Lymph % (Auto) 17.0, [place] % (Auto) 4.0, Eos % (Auto) 1.1, Baso % (Auto) 0.3, Nucleat RBC Rel Count 0.2, Neut # (Auto) 10.6 H, Lymph #(Auto) 2.3, [place] # (Auto) 0.5, Eos # (Auto) 0.2, Baso # (Auto) 0.0, Blood Type APositive, Antibody Screen Negative Diagnostic Imaging Comments: 2.1 cm uterine complex with vascularization, essentially unchanged from yesterday SPRAY BOOTH OPERATOR - A/P (1) Vaginal bleeding: Plan Failed Cytotec evacuation of uterine tissue Suction D&C D&C Documented By: CHUCK Astorga 04/29/23 22 06 Signed By: <Electronically signed by CHUCK Sarkar> 04/30/23 0702 [facility] Work Phone: History of Present illness Narrative [...] specified as infective documented in this encounter [facility] Healthcare Evaluation note Note Date & Type Note Facility Evaluation note No assessment information availa ble [facility] Work Phone: Evaluation note Note Date & Type Note Facility Evaluation note Diagnosis Onset Date Vaginal bleeding acute [facility] Work Phone: Evaluation note Note Date & Type Note Facility Evaluation note Diagnosis Encounter for postoperative care Encounter for weight management documented in this encounter [facility] Healthcare Evaluation note Note Date & Type Note Facility Evaluation note Diagnosis Missed menses , unspecified gestational age Encounter for supervision of normal first in first trimester Nausea and vomiting in Unspecified vomiting of , unspecified as to episode of care documented in this encounter [facility] Healthcare Hospital Discharge instructions Note Date & Type Note Facility Hospital Discharge instructions Additional Instructions SPECIAL INSTRUCTIONS Call for heavy bleeding FOLLOW UP Thursday 10 am [facility] Work Phone: Summary Purpose Family History Relationship [...] CREATED AUTHOR AUTHOR'S ORGANIZ ATION 11/23/2023 [facility] DATE CREATED AUTHOR AUTHOR'S ORGANIZ ATION 04/09/2024 [facility] EPIC Reason for Visit (unrecogniz ed section and content) Reason Comments Care Reason Comments Post-op Visit Reason Comments Amenorrhea Care Teams (unrecognized sec tion and content) 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 Specialty Start Date End Date Unallocated, [facility] [place] [address] PCP - General Family Medicine 04/13/23 Team [...] November 13, 2023 End: November 13, 2023 Open Hearth 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 Specialty Start Date End Date Unallocated, Jodee Silverio MD [facility] [place], [place] [id number] PCP - General Family Medicine 04/13/23 Open Hearth 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 Specialty Start Date End Date Unallocated, Jodee Silverio [place] [facility] [place] [address] PCP - General Family Medicine 04/13/23 Open Hearth 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 Specialty Start Date End Date Unallocated, Jodee Silverio [place] [facility] [place] [address] PCP - General Family Medicine 04/13/23 Open Hearth 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 Specialty Start Date End Date Unallocated, Jodee Silverio MD [facility] [place] [address] PCP - General Family Medicine 04/13/23 Open Hearth 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 Specialty Start Date End Date Unallocated, Jodee Silverio MD [facility] [place] [address] PCP - General Family Medicine 04/13/23 Open Hearth 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 Specialty Start Date End Date Angel Seay MD [address] [place] [phone] PCP - General Family Medicine 01/26/24 Alina Schmitz NP [address] [place] [phone] Nurse Practitioner Family Medicine 01/26/24 Open Hearth 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 Specialty Start Date End Date Angel Seay MD [address] [place] [address] PCP - General Family Medicine 01/26/24 Alina Schmitz NP [address] [place] [phone] Nurse Practitioner Family Medicine 01/26/24 Goals (unrecognized [...] BE BASED ON THE PRIMARY CLINICAL RECORDS. [employer] provides no warranty or guarantee of the accuracy or completeness of information in this document.
[2024-05-09 12:33] LABS: Estimated Average Glucose 105 mg/dL; Glycohemoglobin A1C 5.3 % (4.5-6.2)
[2024-05-09 13:04] LABS: BOX Test Reference Lab UNITY; BOX Test Result SENT; BOX Test Sent Out UNITY BOX
[2024-05-09 13:09] LABS: Basophils Percent Auto 0.2 % (0.2-2.0); Eosinophils Percent Auto 0.5 % (0.9-7.0); Hematocrit 37.7 % (36.0-48.0); Hemoglobin 12.8 g/dL (12.0-16.0); Immature Granulocytes Abs Auto 0.02 10^3/uL (0.00-0.03); Immature Granulocytes Pct Auto 0.2 % (0.0-0.5); Lymphocytes Absolute Auto 1.6 10^3/uL (1.2-3.8); Mean Corpuscular Hemoglobin 27.4 pg (26.7-34.0); Mean Corpuscular Volume 80.7 fL (81.0-99.0); Mean Platelet Volume 9.6 fL (9.5-13.5); Monocytes Absolute Auto 0.5 10^3/uL (0.3-0.8); Monocytes Percent Auto 5.9 % (1.7-12.0); Neutrophils Absolute Auto 6.2 10^3/uL (1.4-6.5); Neutrophils Percent Auto 74.2 % (43.0-75.0); Platelet Count 311 10^3/uL (150-450); Red Blood Count 4.67 10^6/uL (4.20-5.40); Red Cell Distribution Width 13.1 % (11.0-15.0); White Blood Count 8.3 10^3/uL (4.0-11.0)
[2024-05-09 13:15] LABS: Amphetamine Screen Urine NEGATIVE (NEGATIVE); Barbiturates Screen Urine NEGATIVE (NEGATIVE); Benzodiazepines Screen Urine NEGATIVE (NEGATIVE); Buprenorphine Screen Urine NEGATIVE (NEGATIVE); Cannabinoid Screen Urine NEGATIVE (NEGATIVE); Cocaine Screen Urine NEGATIVE (NEGATIVE); Methadone Screen Urine NEGATIVE (NEGATIVE); Methamphetamines Screen Urine NEGATIVE (NEGATIVE); Opiate Screen Urine NEGATIVE (NEGATIVE); Oxycodone Screen Urine NEGATIVE (NEGATIVE); Phencyclidine Screen Urine NEGATIVE (NEGATIVE); Tricyclic Antidepressant Urine NEGATIVE (NEGATIVE)
[2024-05-10 06:08] LABS: HBsAg Screen Negative (Negative); HCV Ab Non Reactive (Non Reactive); HIV Ab/p24 Ag Screen Non Reactive (Non Reactive); Rubella Antibodies, IgG 1.55 index (Immune >0.99)
[2024-05-10 15:08] LABS: Rapid Plasma Reagin, Quant Non Reactive titer (NonRea<1:1)
== END 2024-05-09 11:57 | disposition home or self-care (01) ==
LOC: LAB 11:56
PROVIDERS: Visit Provider Obstetrics & Gynecology
DX: Z34.01 Encounter for supervision of normal first pregnancy, first trimester (principal); N92.6 Irregular menstruation, unspecified; Z36.0 Encounter for antenatal screening for chromosomal anomalies
CPT/HCPCS: 36415; 80307; 83036; 85025; 86592; 86762; 86803; 86850; 86900; 86901; 87086; 87340; 87389

== ENCOUNTER 2024-06-06 15:11 | Outpatient (REF) | payer BC, SELFPAY | END 2024-06-06 15:12 | disposition home or self-care (01) | LOC: LAB 15:11 | PROVIDERS: Visit Provider Physician Assistant | DX: Z01.419 Encounter for gynecological examination (general) (routine) without abnormal findings (principal) | CPT/HCPCS: 88175 ==

== ENCOUNTER 2024-06-07 10:30 | Outpatient (OUT) | payer BC, SELFPAY ==
[2024-06-07 12:24] LABS: Glucose 1 Hour 108 mg/dL (<130)
[2024-06-09 01:08] LABS: AFP Value 32.3 ng/mL (.); Gest. Age on Collection Date 16.1 weeks (.); Gestat. Age Based On Ultrasound (.); Insulin Dep Diabetes No (.); Maternal Age At EDD 26.6 yr (.); OSBR Risk 1 IN 10000 (.); Results Report (.)
== END 2024-06-07 10:31 | disposition home or self-care (01) ==
LOC: LAB 10:31
PROVIDERS: PCP Nurse Practitioner; Visit Provider Obstetrics & Gynecology
DX: O26.892 Other specified pregnancy related conditions, second trimester (principal); E88.819 Insulin resistance, unspecified
CPT/HCPCS: 36415; 82105; 82950

== ENCOUNTER 2024-07-05 16:00 | Outpatient (OUT) | payer BC, SELFPAY ==
--- NOTE | 2024-07-05 16:02 | US_ITS ---
The [address] [address] Patient Name: ÁNGEL EVANS MRN: [id number] date: 2000 Sex: F Assigned Patient Location: Current Patient Location: Accession/Order Number: [id number] Exam Date: 07/06/2024 08:58 Report Date: 07/06/2024 09:06 At the request of: ÁNGEL KERN Procedure: US OB cervical length Anatomy ultrasound. Cervical length ultrasound. Reason for exam: Anatomic survey. COMPARISON: None. TECHNIQUE: Transabdominal imaging of the gravid uterus was obtained. FINDINGS: Single live intrauterine measuring 20 weeks 5 days by anatomic measurements with a heart rate of 144 bpm. position is breech at time of scanning. Estimated weight is 370 g (76.2%). Placenta is anterior in location without focal abnormality. Amniotic fluid volume is subjectively normal. Anatomic survey demonstrates all 4 extremities are seen. Spine appears intact. No hydrocephalus. Four-chamber heart. Outflow tracts appear normal. Three-vessel cord. Cord insertion appears normal. Nasal bone appears present.Kidneys appear unremarkable. Cervical length is 4.6 cm without evidence of funneling. The tip of the placenta is approximately 2.6 cm from the internal os. US/US OB anatomy IMPRESSION: Single live intrauterine 20 weeks 5 days by anatomic measurements. Normal survey. Cervical length measuring 4.6 cm evidence of funneling. Impression dictated by: Pedro Luis Jack Jr., D.O. 07/06/2024 9:06 AM Dictation Location: [employer] Electronically authenticated by: [id number] Date: 07/06/2024 09:06
--- NOTE | 2024-07-05 16:02 | US_ITS ---
[facility] [place] [id number] Patient Name: ÁNGEL EVANS MRN: [id number] date: 2000 Sex: F Assigned Patient Location: Current Patient Location: Accession/Order Number: [id number] Exam Date: 07/06/2024 08:58 Report Date: 07/06/2024 09:06 At the request of: ÁNGEL KERN Procedure: US OB cervical length Anatomy ultrasound. Cervical length ultrasound. Reason for exam: Anatomic survey. COMPARISON: None. TECHNIQUE: Transabdominal imaging of the gravid uterus was obtained. FINDINGS: Single live intrauterine measuring 20 weeks 5 days by anatomic measurements with a heart rate of 144 bpm. position is breech at time of scanning. Estimated weight is 370 g (76.2%). Placenta is anterior in location without focal abnormality. Amniotic fluid volume is subjectively normal. Anatomic survey demonstrates all 4 extremities are seen. Spine appears intact. No hydrocephalus. Four-chamber heart. Outflow tracts appear normal. Three-vessel cord. Cord insertion appears normal. Nasal bone appears present.Kidneys appear unremarkable. Cervical length is 4.6 cm without evidence of funneling. The tip of the placenta is approximately 2.6 cm from the internal os. US/US OB cervical length IMPRESSION: Single live intrauterine 20 weeks 5 days by anatomic measurements. Normal survey. Cervical length measuring 4.6 cm evidence of funneling. Impression dictated by: Pedro Luis Jack Jr., D.O. 07/06/2024 9:06 AM Dictation Location: [facility] Electronically authenticated by: [id number] Y Date: 07/06/2024 09:06
== END 2024-07-05 16:01 | disposition home or self-care (01) ==
LOC: US 16:00
PROVIDERS: PCP Nurse Practitioner; Visit Provider Physician Assistant
DX: Z36.89 Encounter for other specified antenatal screening (principal); Z3A.20 20 weeks gestation of pregnancy
CPT/HCPCS: 76805; 76817

== ENCOUNTER 2024-08-02 16:34 | Outpatient (OUT) | payer BC, SELFPAY ==
--- OUTSIDE RECORDS SUMMARY | 2024-07-20 09:30 | XMS_ITS | Encounter Summary ---
Author Organization [facility] Address [address] [place] [address] Care Team Providers Care Scrap Worker Name Role Phone Angel Seay MD Primary Care Provider [phone] Alina Schmitz NP Unavailable [phone] Reason for Visit * Reason Comments Routine Visit Encounter Details Date Type Department Care Team (Late st Contact Info) Description 07/20/2024 9:30 AM EDT Routine [facility] [address] [facility] [place] [address] Trudy Castellanos, MARISSA [address] [facility] [place] [address] Second trimester ; 22 weeks gestation of ; Encounter for screening for cervical length Social History Tobacco Use Types Packs/Day Years Used Date Smoking Tobacco: Never Smokeless Tobacco: Never Alcohol Use Standard Drinks/Week Comments Not Currently 0 (1 standard drink = 0.6 oz pur e alcohol) AUDIT-C Answer Date Recorded Q1: How often do you have a drink containing alc ohol? Monthly or less 05/11/2023 Q2: How many drinks containi ng alcohol do you have on a typical day when you are drinking? 1 or 2 05/11/2023 Q3: How often do you have si x or more drinks on one occasion? Less than monthly 05/11/2023 PHQ-2 Answer Date Recorded Patient Health Questionnaire-2 Score 0 04/29/2023 [place] Depression Scale Answer Date Recorded [place] Depression Scale Total 0 04/13/2023 The thought of harming myself has occurred to me . Never 04/13/2023 Estimated Date of Delivery Comme nts Yes 11/21/2024 Based on Ultraso und Sex and Gender Information Value Date Recorded Sex Assigned at Not on file Legal Sex Female 11:47 PM EDT Gender Identity Not on file Sexual Orientation Not on file documented as of this encounter Last Filed Vital Signs Vital Sign Reading Time Taken Comments Blood Pressure 118/72 07/20/2024 9:34 AM EDT Pulse - - Temperature - - Respiratory Rate - - Oxygen Saturation - - Inhaled Oxygen Concentration - - Weight 73 kg (161 lb) 07/20/2024 9:34 AM EDT Height - - Body Mass Index 32.52 01/06/2024 10:50 AM EDT documented in this encounter Progress Notes * Trudy Castellanos NP - 07/20/2024 9:30 AM EDT Reason for Appointment: Patient ID: Sarah Arce is a 24 y.o. female who presents for Routine Visit Patient presents today for Return OB appointment. MEDICATIONS Current Outpatient Medications Medication Instructions metFORMIN XR (GLUCOPHAGE-XR) 500 mg, Oral, Daily with evening meal, Do not crush, chew, or split. MV & Min w/FA-DHA ( Gummies) 0.18-25 MG chewable tablet 1 tablet, Oral, Daily ALLERGIES No Known Allergies PROBLEMS Active Ambulatory Problems Diagnosis Date Noted Vaginal [...] Exam Constitutional: Appearance: Normal appearance. She is well-developed. Cardiovascular: Rate and Rhythm: Normal rate and regular rhythm. Pulmonary: Effort: Pulmonary effort is normal. Breath sounds: Normal breath sounds. Abdominal: General: Bowel sounds are normal. There is no distension. Palpations: Abdomen is soft. Tenderness: There is no abdominal tenderness. There is no guarding or rebound. Musculoskeletal: General: No swelling. Normal range of motion. Right lower leg: No edema. Left lower leg: No edema. Neurological: Mental Status: She is alert and oriented to person, place, and time. Skin: General: Skin is warm and dry. Psychiatric: Mood and Affect: Mood normal. Behavior: Behavior normal. Vitals and nursing note reviewed. Exam conducted with a digital analyst present. Vitals: Estimated body mass index is 32.52 kg/m?? as calculated from the following: Height as of 01/06/24: 4' 11 . Weight as of this encounter: 161 lb. BP: 118/72 Patient's last menstrual period was 01/30/2024. ASSESSMENT & PLAN ICD-10-CM 1. Second trimester Z34.92 POCT urinalysis dipstick manually resulted 2. 22 weeks gestation of Z3A.22 Return OB: Patient presents today for a routine obstetrics appointment. Patient is currently 22w2d . Patient states she is doing well but has complaints of being tired due to current . Patient has verbalizes frequent movement. labor precautions was discussed/given and patient was instructed to perform kick counts three times a day. Orders Placed This Encounter Procedures POCT urinalysis dipstick manually resulted Follow Up: Patient is to return to office in 3 week for routine OB appointment. Hx of missed AB with 4.7 cm cervical with funneling. Will repeat cervical length. Documented by Cayla Mayorga MA on behalf of: Trudy Castellanos NP documented in this encounter Plan of Treatment Upcoming Encounters Date Type Department Care Team (Late st Contact Info) Description 08/11/2024 10:40 AM EDT Routine [facility] OB [address] [facility] [place] [address] Newton Carter, DO [address] [facility] [place] [address] Scheduled Orders Name Type Priority Associated Diagnoses Orde r Schedule US OB transvaginal Imaging Routine Encounter for screening for cervical length Expected: 07/20/2024, Expires: 10/20/2024 documented as of this encounter Procedures Procedure Name Priority Date/Time Associated Diagnosis Comments POCT URINALYSIS DIPSTICK Routine 07/20/2024 9:35 AM EDT Second trimester documented in this encounter Results * POCT urinalysis dipstick manually resulted (07/20/2024 9:35 AM EDT) Color, UA Yellow Clarity, UA Clear Glucose, UA Negative Negative - 2000(110) ++++ mg/dL Bilirubin, UA Negative Negative - 4(70) +++ mg/dL Ketones, UA Negative Negative - 160(16) ++++ mg/dL Spec Grav, UA 1.025 1 - 1.03 Blood, UA Negative Negative - 50 Sherman/mcL pH, UA 7.0 5 - 9 Protein, UA Positive Negative - 2000(20) ++++ mg/dL Comment:30 Urobilinogen, UA 0.2 0.2 - 12 mg/dL Leukocytes, UA Positive Negative - 500+++ Jackie/mcL Comment:small Nitrite, UA Negative Negative - Positive Urine 07/20/2024 9:35 AM EDT Trudy Castellanos NP POINT OF CARE TEST ENTER/EDIT ORDERABLES Final Result documented in this encounter Visit Diagnoses Diagnosis Second trimester state, incidental 22 weeks gestation of Encounter for screening for cervical length documented in this encounter Care Teams Scrap Worker Relationship Specialty Start Date End Date Angel Seay MD [address] [place] [address] PCP - General Family Medicine 01/26/24 Alina Schmitz NP [address] [place] [address] Nurse Practitioner Family Medicine 01/26/24 documented as of this encounter
--- OUTSIDE RECORDS SUMMARY | 2024-08-02 16:36 | XMS_ITS ---
Author Organization [facility] Source Produ ction (ClinicalSummary Clone) Address Unknown Care Team Providers Care Lining Stuffer Name Role Phone Unavailable Primary Care Physician Unavailab le Results * [UNITY] ANEUPLOIDY NIPT Performed by: [employer] Value Range Date Fraction 8.5% 05/20/2024 02 :19 am UT Sex Chromosome Aneuploidy NOT DETECTED 02:19 am UT Monosomy X LOW RISK <1 in 10,000 2024 02:19 am UT Trisomy 13 LOW RISK <1 in 10,000 2024 02:19 am UT Trisomy 18 LOW RISK <1 in 10,000 2024 02:19 am UT Trisomy 21 LOW RISK <1 in 10,000 2024 02:19 am UT Sex FEMALE 05/20/2024 02:1 9 am UT Gestation GAMINO 05/21/19 02:19 am [facility] For detailed report, see PDF See PDF 05/20/2024 02:19 am UTC 05/20/2024 02:1 9 am [facility] Social History Observation Value Start Date End Date
--- OUTSIDE RECORDS SUMMARY | 2024-08-02 16:36 | XMS_ITS | Encounter Summary ---
Author Organization [facility] Address [address] [place] [address] Care Team Providers Care Pit Hand Name Role Phone Unallocated, Noms Provider Primary Care Provi kristopher Angel Seay MD Primary Care Provider Alina Schmitz NP Unavailable [phone] Encounter Details Date Type Department Care Team (Late st Contact Info) Description 11/16/2023 Abstract [facility] OB [address] [place] [address] Newton Carter, DO [address] [place], [facility] Social History Tobacco Use Types Packs/Day Years [...] Recorded Patient Health Questionnaire-2 Score 0 04/29/2023 [place] Depression Scale Answer Date Recorded [place] Depression Scale Total 0 04/13/2023 The thought of harming myself has occurred to me . Never 04/13/2023 Comments No Sex and Gender Information Value Date Recorded Sex Assigned at Not on file Legal Sex Female 11:47 PM EDT Gender Identity Not on file Sexual Orientation Not on file documented as of this encounter Plan of Treatment Upcoming Encounters Date Type Department Care Team (Late st Contact Info) Description 08/11/2024 10:40 AM EDT Routine [facility] OB [address] [facility] [place] [address] Newton Carter DO [address] [facility] [place] [address] documented as of this encounter Visit Diagnoses Not on filedocumented in this encounter Care Teams Pit Hand Relationship Specialty Start Date End Date Unallocated, Noms MD Jean Claude [address] [place] [address] PCP - General Family Medicine 04/13/23 01/25/24 Angel Seay MD [address] [place] [address] PCP - General Family Medicine 01/26/24 Alina Schmitz NP [address] [place] [address] Nurse Practitioner Family Medicine 01/26/24 documented as of this encounter
--- OUTSIDE RECORDS SUMMARY | 2024-08-02 16:36 | XMS_ITS | Encounter Summary ---
Author Organization [facility] Address [address] [place] [address] Care Team Providers Care Demolition Crane Operator Name Role Phone Angel Seay MD Primary Care Provider Alina Schmitz NP Unavailable [phone] Encounter Details Date Type Department Care Team (Late st Contact Info) Description 07/20/2024 Bamboo flowsheet [facility] OB [address] [place] [address] Trudy Castellanos NP [address] [place] [address] Social History Tobacco Use Types Packs/Day Years [...] Recorded Patient Health Questionnaire-2 Score 0 04/29/2023 [place] Depression Scale Answer Date Recorded [place] Depression Scale Total 0 04/13/2023 The thought [...] AM EDT Routine [facility] B[facility] OB [address] [facility] [place] [address] Newton Carter, [address] [facility] [place] [address] documented as of this encounter Visit Diagnoses Not on filedocumented in this encounter Care Teams Demolition Crane Operator Relationship Specialty Start Date End Date Angel Seay MD [address] [place] [address] PCP - General Family Medicine 01/26/24 Alina Schmitz NP [address] [place] [address] Nurse Practitioner Family Medicine 01/26/24 documented as of this encounter
--- OUTSIDE RECORDS SUMMARY | 2024-08-02 16:36 | XMS_ITS | Encounter Summary ---
Author Organization [facility] Address [address] [place] [address] Care Team Providers Care Fur Stretcher Name Role Phone Angel Seay MD Primary Care Provider [phone] Alina Schmitz NP Unavailable [phone] Encounter Details Date Type Department Care Team (Late st Contact Info) Description 06/14/2024 Orders Only [facility] OB [address] [place] [address] Rachael Heard LPN [address] [place] [id number] Social History Tobacco Use Types Packs/Day Years [...] Recorded Patient Health Questionnaire-2 Score 0 04/29/2023 [place] Depression Scale Answer Date Recorded [place] Depression Scale Total 0 04/13/2023 The thought [...] AM EDT Routine [facility] BCP OB [address] [facility] [place] [address] Newton Carter DO [address] [facility] [place] [address] documented as of this encounter Procedures Procedure Name Priority Date/Time Associated Diagnosis Comments PAP SMEAR Routine 06/06/2024 12:00 AM EDT documented in this encounter Results * Pap Smear (06/06/2024 12:00 AM EDT) Swab Cervical swab / Unknown us [facility] Bcp Ob Raul Nurse LAB CYTOLOGY ORDERABLES Final Result EXTERNAL LAB documented in this encounter Visit Diagnoses Not on filedocumented in this encounter Care Teams Fur Stretcher Relationship Specialty Start Date End Date Angel Seay MD [address] [place] [address] PCP - General Family Medicine 01/26/24 Alina Schmitz NP [address] [place] [address] Nurse Practitioner Family Medicine 01/26/24 documented as of this encounter
--- OUTSIDE RECORDS SUMMARY | 2024-08-02 16:36 | XMS_ITS | Encounter Summary ---
Author Organization [facility] Address [address] [place] [address] Care Team Providers Care Swimmer Name Role Phone Unallocated, Noms Provider Primary Care Provi kristopher Angel Seay MD Primary Care Provider [phone] Alina Schmitz NP Unavailable [phone] Encounter Details Date Type Department Care Team (Late st Contact Info) Description 04/30/2023 External Result Encounter [facility] External Department Unsolicited Dawn Huitron MD [address] [facility] [address] [place] [address] Social History Tobacco Use Types Packs/Day Years Used Date Smoking Tobacco: Never Smokeless Tobacco: Never Alcohol Use Standard Drinks/Week Comments Not Currently 0 (1 standard drink = 0.6 oz pur e alcohol) none with PHQ-2 Answer Date Recorded Patient Health Questionnaire-2 Score 0 04/29/2023 [place] Depression Scale Answer Date Recorded [place] Depression Scale Total 0 04/13/2023 The thought [...] Description 08/11/2024 10:40 AM EDT Routine [facility] [address] [place] [address] Newton Carter DO [address] [place] [address] [place] [address] documented as of this encounter Procedures Procedure Name Priority Date/Time Associated Diagnosis Comments US PELVIS TRANSVAGINAL 04/30/2023 9:33 AM EST documented in this encounter Results * US pelvis transvaginal (04/30/2023 9:33 AM EST) Anatomical Region Laterality Modality Pelvis Ultrasound 04/30/2023 9:33 AM EST Impressions 04/30/2023 9:39 AM EST 22 mm thick endometrial complex. Impression dictated by: Usama Peña M.D.04/30/2023 9:37 AM Dictation Location: [place] [address] Tech: Anca Petersenbanner Transcribed By: PWS 04/30/23 0937 Dictated By: Usama Peña DO 04/30/23 0933 Signed By: <Electronically signed by Usama Peña DO in OV> 04/30/23 0937 Narrative 04/30/2023 9:39 AM EST [facility] Main [place] [id number] Ultrasound Report Signed Patient: Sarah Arce MR#: [id number] : 2000 Acct:[id number] Age/Sex: 23 / F ADM Date: 04/29/23 Loc: Room: [address] [place] [address] Type: REG CLI Attending Dr: Dawn Huitron MD Ordering Provider: Dawn Huitron MD-[facility] Date of Service: 04/30/23 US/US pelvic complete: D and C scheduled ([id number]) US/US transvaginal: PRODUCTS OF CONCEPTION WITH PRIOR D AND c Copies to: Dawn Huitron MD-[facility] TRANSABDOMINAL AND TRANSVAGINAL PELVIC ULTRASOUND FINDINGS: The [...] no adnexal mass identified. US/US pelvic complete Procedure Note Radiology, Radiologist, - 04/30/2023 [facility] Main [place] [address] [place] [address] Ultrasound Report Signed Patient: Aura Arce#: [id number] : 2000Acct:[id number] Age/Sex: 23 / FADM Date: 04/29/23 Loc: Room: [id number]: REG CLI Attending Dr: Dawn Huitron MD Ordering Provider: Dawn Huitron MD-[facility] Date of Service: 04/30/23 US/US pelvic complete: D and C scheduled ([id number]) US/US transvaginal: PRODUCTS OF CONCEPTION WITH PRIOR D ANDc Copies to: Dawn Huitron MD-[facility] TRANSABDOMINAL AND TRANSVAGINAL PELVIC ULTRASOUND FINDINGS: The uterus measures 10.4 x 5.5 x 6.3 cm. No uterine lesion identified. The endometrium has a total combined thickness of 22mm. Endometrium isheterogeneous with vascularity. The RIGHT ovary measures 2.4 x 1.1 x 2.5 cm LEFT ovary measures 3.0 x 1.4 x 2.3 cm Bilateral ovarian blood flow identified. No free fluid identified. There is no adnexal mass identified. US/US pelvic complete IMPRESSION: 22 mm thick endometrial complex. Impression dictated by: Usama Peña M.D.04/30/2023 9:37 AM Dictation Location: [place] [address] Tech: Anca Kory Transcribed By: [facility] 04/30/23 0937 Dictated By: Usama Peña DO 04/30/23 0933 Signed By: <Electronically signed by Usama Peña DO in OV> 04/30/23 0937 us Dawn Huitron MD IMG US PROCEDURES Final Result documented in this encounter Visit Diagnoses Not on filedocumented in this encounter Care Teams Swimmer Relationship Specialty Start Date End Date Unallocated, Noms Provider, [address] [place] [address] PCP - General Family Medicine 04/13/23 01/25/24 Angel Seay MD [address] [place] [address] PCP - General Family Medicine 01/26/24 Alina Schmitz NP [address] [place] [address] Nurse Practitioner Family Medicine 01/26/24 documented as of this encounter
--- OUTSIDE RECORDS SUMMARY | 2024-08-02 16:36 | XMS_ITS | Encounter Summary ---
Author Organization [facility] Address [address] [place] [address] Care Team Providers Care Manager Subway Name Role Phone Unallocated, Noms Provider Primary Care Provi kristopher Angel Seay MD Primary Care Provider Alina Schmitz NP Unavailable [phone] Encounter Details Date Type Department Care Team (Late st Contact Info) Description 11/13/2023 Abstract [facility] B[facility] OB [address] [place] [address] Newton Carter, DO [address] [place], [facility] Social History Tobacco Use Types Packs/Day [...] Recorded Patient Health Questionnaire-2 Score 0 04/29/2023 [place] Depression Scale Answer Date Recorded [place] Depression Scale Total 0 04/13/2023 The thought [...] AM EDT Routine [facility] BCP OB [address] [facility] [place] [address] Newton Carter DO [address] [facility] [place] [address] documented as of this encounter Visit Diagnoses Not on filedocumented in this encounter Care Teams Manager Subway Relationship Specialty Start Date End Date Unallocated, Noms MD Jean Claude [address] [place] [address] PCP - General Family Medicine 04/13/23 01/25/24 Angel Seay MD [address] [place] [address] PCP - General Family Medicine 01/26/24 Alina Schmitz NP [address] [place] [address] Nurse Practitioner Family Medicine 01/26/24 documented as of this encounter
--- OUTSIDE RECORDS SUMMARY | 2024-08-02 16:36 | XMS_ITS | Encounter Summary ---
Author Organization [facility] Address [address] [place] [address] Care Team Providers Care Block Sealer Name Role Phone Unallocated, Noms Provider Primary Care Provi kristopher Angel Seay MD Primary Care Provider Alina Schmitz NP Unavailable [phone] Encounter Details Date Type Department Care Team (Late st Contact Info) Description 10/23/2023 Clinisync Result Encounter [facility] External Department Unsolicited Partha Carter, DO [address] [place], [place] [id number] Social History Tobacco Use Types Packs/Day Years [...] Recorded Patient Health Questionnaire-2 Score 0 04/29/2023 [place] Depression Scale Answer Date Recorded [place] Depression Scale Total 0 04/13/2023 The thought [...] AM EDT Routine [facility] BCP OB [address] [facility] [place] [address] Partha Carter, DO [address] [facility] [place] [address] documented as of this encounter Procedures Procedure Name Priority Date/Time Associated Diagnosis Comments US OB TRANSVAGINAL 10/23/2023 10 :54 AM EDT [facility] PREG QUANT HCG Routine 10/23/2023 10 :23 AM EDT documented in this encounter Results * US OB TRANSVAGINAL (10/23/2023 10:54 AM EDT) Anatomical Region Laterality Modality Other 10/23/2023 10:5 4 AM EDT Narrative 10/23/2023 10:57 AM EDT [address] [address] Ultrasound Report Signed Patient: Sarah EVANS MR#: [id number] : 2000 Acct:[id number] Age/Sex: 23 / F ADM Date: 10/23/23 Loc: [facility] Attending Dr: Partha Carter D.O. Ordering Physician: Partha Carter D.O. Date of Service: 10/23/23 Procedure(s): US OB transvaginal Accession Number(s): [id number] cc: Partha Carter D.O.; Physician,Non-Staff M.Damian The [address] [address] Patient Name: SARAH EVANS MRN: [facility]:[id number] date: 2000 Sex: F Assigned Patient Location: [facility] Current Patient Location: [facility] Accession/Order Number: [id number] Exam Date: 10/23/2023 09:13 Report Date: 10/23/2023 10:54 At the request of: PARTHA CARTER Procedure: US OB transvaginal EXAMINATION: US OB transvaginal HISTORY: MISSED MENSES COMPARISON: No relevant comparison available. FINDINGS: GESTATIONAL SAC: 11 mm fluid collection within the upper endometrial cavity suspected to represent a gestational sac. YOLK SAC: Absent POLE: Absent CARDIAC: Absent UTERUS: Thickened heterogeneous endometrium. OVARIES: Right: Normal. Left: Normal. CERVIX: 3.2 cm in length and closed. CUL-DE-SAC: Normal. OTHER: None. AGE BY LMP: 8 weeks 4 days YUE BY LMP: 05/30/2024 AGE BY US CRL: Not applicable YUE BY US CRL: US/US OB transvaginal IMPRESSION: 1. Suspect very early intrauterine versus blighted ovum. Follow-up recommended. Electronically authenticated by: FAUSTINO CRANE Date: 10/23/2023 10:54 Dictated By: Faustino Crane M.D. Signed By: 10/23/23 1057 DD/ 1054 TD/TT: Forest Fire Management Officer: Procedure Note Radiology, Radiologist, MD - 10/23/2023 [place] [address] Ultrasound Report Signed Patient: Sarah EVANS R#: [id number] : 2000Acct:[id number] Age/Sex: 23 / FADM Date: 10/23/23 Loc: [facility] Attending Dr: Partha Carter D.O. Ordering Physician: Partha Carter D.O. Date of Service: 10/23/23 Procedure(s): US OB transvaginal Accession Number(s): [id number] cc: Partha Carter D.O.; Physician,Non-Staff Sherie The [place] [id number] Patient Name: SARAH EVANS MRN: [facility]:[id number] date: 2000 Sex: F Assigned Patient Location: [facility] Current Patient Location: [facility] Accession/Order Number: [id number] Exam Date: 10/23/2023 09:13 Report Date: 10/23/2023 10:54 At the request of: PARTHA CARTER Procedure: US OB transvaginal EXAMINATION: US OB transvaginal HISTORY: MISSED MENSES COMPARISON: No relevant comparison available. FINDINGS: GESTATIONAL SAC: 11 mm fluid collection within the upper endometrialcavity suspected to represent a gestational sac. YOLK SAC: Absent POLE: Absent CARDIAC: Absent UTERUS: Thickened heterogeneous endometrium. OVARIES: Right: Normal. Left: Normal. CERVIX: 3.2 cm in length and closed. CUL-DE-SAC: Normal. OTHER: None. AGE BY LMP: 8 weeks 4 days YUE BY LMP: 05/30/2024 AGE BY US CRL: Not applicable YUE BY US CRL: US/US OB transvaginal IMPRESSION: 1. Suspect very early intrauterine versus blighted ovum.Follow-up recommended. Electronically authenticated by: FAUSTINO CRANE Date: 10/23/2023 10:54 Dictated By: Faustino Crane M.D. Signed By:10/23/23 1057 DD/ 1054 TD/TT: Forest Fire Management Officer: Partha Carter DO [facility] Final Result * [facility] PREG QUANT HCG (10/23/2023 10:23 AM EDT) HCG QUANTITATIVE 29,297 mIU/mL [facility] Comment: 5-50 0.2-1 WEEK 50-500 1-2 WEEKS 100-5,000 2-3 WEEKS 500-10,000 3-4 WEEKS 1,000-50,000 4-5 WEEKS 10,000-100,000 5-6 WEEKS 15,000-200,000 6-8 WEEKS 10,000-100,000 2-3 MONTHS 10/23/2023 10:2 3 AM EDT 10/23/2023 10:24 AM EDT Narrative [facility] - 10/23/2023 12:24 PM EDT Partha Raul DO [facility] Final Result [facility] documented in this encounter Visit Diagnoses Not on filedocumented in this encounter Care Teams Block Sealer Relationship Specialty Start Date End Date Unallocated, Noms Jean Claude, [address] [place] [address] PCP - General Family Medicine 04/13/23 01/25/24 Angel Seay MD [address] [place] [address] PCP - General Family Medicine 01/26/24 Alina Schmitz NP [address] [place] [address] Nurse Practitioner Family Medicine 01/26/24 documented as of this encounter
--- OUTSIDE RECORDS SUMMARY | 2024-08-02 16:36 | XMS_ITS | Encounter Summary ---
Author Organization [facility] Address [address] [place] [address] Care Team Providers Care Event Promotions Coordinator Name Role Phone Angel Seay MD Primary Care Provider Ailna Schmitz NP Unavailable [phone] Encounter Details Date Type Department Care Team (Late st Contact Info) Description 05/20/2024 Abstract [facility] OB [address] [place] [phone] Newton Carter, DO [address] [place] [address] Social History Tobacco Use Types Packs/Day Years [...] Recorded Patient Health Questionnaire-2 Score 0 04/29/2023 [place] Depression Scale Answer Date Recorded [place] Depression Scale Total 0 04/13/2023 The thought [...] AM EDT Routine [facility] BCP OB [address] [facility] [place] [address] Newton Carter DO [address] [facility] [place] [address] documented as of this encounter Visit Diagnoses Not on filedocumented in this encounter Care Teams Event Promotions Coordinator Relationship Specialty Start Date End Date Angel Seay MD [address] [place] [address] PCP - General Family Medicine 01/26/24 Alina Schmitz NP [address] [place] [address] Nurse Practitioner Family Medicine 01/26/24 documented as of this encounter
--- OUTSIDE RECORDS SUMMARY | 2024-08-02 16:36 | XMS_ITS | Encounter Summary ---
[facility] tem Address [id number] [address] [place] [address] Care Team Providers Care Benefits Counselor Name Role Phone No Pcp, No Pcp Primary Care Provider Unavailabl e Reason for Referral * Diagnostic Imaging (Routine) - Closed Specialty Diagnoses / Procedures Referred By Contac t Referred To Contact Maternal and Medicine Diagnoses High risk with low PAPPA (-associated plasma protein A) Procedures [facility] with or without consult Gregory Agarwal MD Phone: tel: fax: Maternal- Medicine at [facility] [address] [place] [address] Phone: tel: fax: Referral ID Status Reason Start Date Expiration Date Visits Re quested Visits Authorized [id number] Closed 07/23/2020 07/23/2021 1 1 Encounter Details Date Type Department Care Team (Late st Contact Info) Description 07/23/2020 Orders Only Maternal- Medicine at [facility] [address] [place] [address] Gregory Agarwal MD [address] [facility], [address] [place] [id number] High risk with low PAPPA (-associated plasma protein A) (Primary Dx) Social History Tobacco Use Types Packs/Day Years Used Date Smoking Tobacco: Never Assessed Childcare Answer Date Recorded Childcare Unknown 09/24/2018 Employment Answer Date Recorded Employment Unknown 09/24/2018 Purpose - Life Answer Date Recorded Purpose and direction in life Unknown Comments Unknown Sex and Gender Information Value Date Recorded Sex Assigned at Not on file Legal Sex Female 12:18 PM EDT Gender Identity Not on file Sexual Orientation Not on file COVID-19 Exposure Response Date Recorded In the last month, have you been in contact with someone who was confirmed or suspected to have Coronavirus / COVID-19? No / Unsure 07/17/2020 12:23 PM EDT documented as of this encounter Plan of Treatment Not on file documented as of this encounter Results * [facility] OB FOLLOW-UP, 1 FETUS (08/21/2020 12:48 PM EDT) Anatomical Region Laterality Modality Pelvis Ultrasound 08/21/2020 12:4 3 PM EDT Impressions 08/21/2020 3:26 PM EDT IMPRESSION: 1. Single intrauterine with expected interval growth from the previous ultrasound. 2. Amniotic fluid index is normal. Narrative 08/21/2020 3:26 PM EDT OBSTETRICS REPORT (Signed Final 08/21/2020 15:26) PATIENT INFO: ID #: [id number] : [birth year] (20 yrs)(F) Name: SARAH BRADLEYELLE Visit Date: 08/21/2020 12:43 LISBETH PERFORMED BY: Performed By: Danni Gan RDMS Attending: Marshall Cheng MD Referred By: [facility] Ref. Address: [facility] [address] [place], [place] [address] Location: [facility] SERVICE(S) PROVIDED: OB Follow-up, 1 fetus [id number] INDICATIONS: Screening for follow-up survey Z36.2 Screening for IUGR Z36.4 Supervision of other high risk , O09.90 antepartum Low PATTIE-A Obesity in , antepartum O99.210 VITAL SIGNS: Weight (lb): 173.2 Height: 5' BMI: 33.82 EVALUATION: Num Of Fetuses: 1 Heart Rate(bpm): 146 Cardiac Activity: Present & appears normal Presentation: Cephalic Placenta: Right Lateral, away from cervical os Amniotic Fluid JAROCHO FV: Subjectively within normal limits JAROCHO Sum(cm) %Tile Largest Pocket(cm) 12.84 40 4.81 RUQ(cm) RLQ(cm) LUQ(cm) LLQ(cm) 4.81 3.78 0 4.25 BIOMETRY: BPD: 86.1 mm G.Age: 34w 5d 75 % OFD: 106.9 mm HC: 307.8 mm G.Age: 34w 2d 28 % AC: 314.2 mm G.Age: 35w 2d 91 % FL: 62.9 mm G.Age: 32w 4d 13 % HUM: 56.6 mm G.Age: 32w 6d 41 % LV: 6.5 mm TIB: 54.4 mm G.Age: 32w 1d 27 % CI: 80.5 % 70 - 86 FL/HC: 20.4 % 19.4 - 21.8 HC/AC: 0.98 0.96 - 1.11 FL/BPD: 73.1 % 71 - 87 FL/AC: 20.0 % 20 - 24 Est. FW: 2429 gm 5 lb 6 oz 65 % OB HISTORY: : 1 GESTATIONAL AGE: LMP: 33w 5d Date: 12/29/19 YUE: 10/04/20 U/S Today: 34w 2d YUE: 09/30/20 Best: 33w 5d Det. By: LMP (12/29/19) YUE: 10/04/20 ANATOMY: Cranium: Appears normal Cavum: Appears normal Ventricles: Appear normal Heart: Not well visualized Stomach: Appears normal, left sided Abdomen: Appears normal Cord Vessels: Appears normal (3 vessel cord) Kidneys: Appear normal Bladder: Appears normal CERVIX UTERUS ADNEXA: Cervix Not visualized due to late gest. age Uterus Gravid uterus Left Ovary Size(cm) 3.3 x 2.92 x 1.6 Vol(ml): 8.07 Visualized Right Ovary Size(cm) 3.03 x 2.73 x 2.33 Vol(ml): 10.09 Visualized Adnexa No adnexal masses identified COMMENTS: 1. Ultrasound is not diagnostic for chromosomal abnormalities, will not detect all structural abnormalities, and is not diagnostic for genetic disorders even if multiple exams are performed during a given . RECOMMENDATIONS: 1. Patient is scheduled in four weeks for follow up growth ultrasound. 2. Subsequent follow up or other follow up as clinically determined by primary OB provider unless otherwise specified by MFM. 3. Results forwarded to ordering provider so they can follow up with the patient as necessary. Marshall Cheng MD Electronically Signed Final Report 08/21/2020 15:26 Procedure Note Marshall Cheng MD - 08/21/2020 OBSTETRICS REPORT (Signed Final 08/21/2020 15:26) PATIENT INFO: ID #: [id number] : [birth year] (20 yrs)(F) Name: SARAH VICKERS Visit Date: 08/21/2020 12:43 LISBETH PERFORMED BY: Performed By: Danni Gan RDMS Attending: Marshall Cheng MD Referred By: [facility] Ref. Address: [address] [place], [place] [address] Location: [facility] SERVICE(S) PROVIDED: OB Follow-up, 1 fetus [address] INDICATIONS: Screening for follow-up survey Z36.2 Screening for IUGR Z36.4 Supervision of other high risk , O09.90 antepartum Low PATTIE-A Obesity in , antepartum O99.210 VITAL SIGNS: Weight (lb): 173.2 Height: 5' BMI: 33.82 EVALUATION: Num Of Fetuses: 1 Heart Rate(bpm): 146 Cardiac Activity: Present & appears normal Presentation: Cephalic Placenta: Right Lateral, away from cervical os Amniotic Fluid JAROCHO FV: Subjectively within normal limits JAROCHO Sum(cm) %Tile Largest Pocket(cm) 12.84 40 4.81 RUQ(cm) RLQ(cm) LUQ(cm) LLQ(cm) 4.81 3.78 0 4.25 BIOMETRY: BPD: 86.1 mm G.Age: 34w 5d 75 % OFD: 106.9 mm HC: 307.8 mm G.Age: 34w 2d 28 % AC: 314.2 mm G.Age: 35w 2d 91 % FL: 62.9 mm G.Age: 32w 4d 13 % HUM: 56.6 mm G.Age: 32w 6d 41 % LV: 6.5 mm TIB: 54.4 mm G.Age: 32w 1d 27 % CI: 80.5 % 70 - 86 FL/HC: 20.4 % 19.4 - 21.8 HC/AC: 0.98 0.96 - 1.11 FL/BPD: 73.1 % 71 - 87 FL/AC: 20.0 % 20 - 24 Est. FW: 2429 gm 5 lb 6 oz 65 % OB HISTORY: : 1 GESTATIONAL AGE: LMP: 33w 5d Date: 12/29/19 YUE: 10/04/20 U/S Today: 34w 2d YUE: 09/30/20 Best: 33w 5d Det. By: HANNAH (12/29/19) YUE: 10/04/20 ANATOMY: Cranium: Appears normal Cavum: Appears normal Ventricles: Appear normal Heart: Not well visualized Stomach: Appears normal, left sided Abdomen: Appears normal Cord Vessels: Appears normal (3 vessel cord) Kidneys: Appear normal Bladder: Appears normal CERVIX UTERUS ADNEXA: Cervix Not visualized due to late gest. age Uterus Gravid uterus Left Ovary Size(cm) 3.3 x 2.92 x 1.6 Vol(ml): 8.07 Visualized Right Ovary Size(cm) 3.03 x 2.73 x 2.33 Vol(ml): 10.09 Visualized Adnexa No adnexal masses identified COMMENTS: 1. Ultrasound is not diagnostic for chromosomal abnormalities, will not detect all structural abnormalities, and is not diagnostic for genetic disorders even if multiple exams are performed during a given . RECOMMENDATIONS: 1. Patient is scheduled in four weeks for follow up growth ultrasound. 2. Subsequent follow up or other follow up as clinically determined by primary OB provider unless otherwise specified by MFM. 3. Results forwarded to ordering provider so they can follow up with the patient as necessary. Marshall Cheng MD Electronically Signed Final Report 08/21/2020 15:26 IMPRESSION: IMPRESSION: 1. Single intrauterine with expected interval growth from the previous ultrasound. 2. Amniotic fluid index is normal. us Gregory Agarwal MD [facility] US ORDERABLES Final Result documented in this encounter Visit Diagnoses Diagnosis High risk with low PAPPA (-associated plasma protein A)- Primary High risk with low PAPPA (-associated plasma protein A) Encounter for other screening follow-up Encounter for screening for growth retardation Supervision of high risk , unspecified, unspecified trimester Obesity complicating , unspecified trimester documented in this encounter Care Teams Benefits Counselor Relationship Specialty Start Date End Date No Pcp, [place] [address] PCP - General Family Medicine 08/15/22 documented as of this encounter
--- OUTSIDE RECORDS SUMMARY | 2024-08-02 16:36 | XMS_ITS | Encounter Summary ---
Author Organization [facility] tem Address [id number] [address] [place] [address] Care Team Providers Care Colorer Hides And Skins Name Role Phone No Pcp, No Pcp Primary Care Provider Unavailabl e Encounter Details Date Type Department Care Team (Late st Contact Info) Description 07/23/2020 Telephone Maternal- Medicine at [facility] [address] [facility] [place] [address] Rita Pena LPN Social History Tobacco Use Types Packs/Day Years [...] PM EDT documented as of this encounter Miscellaneous Notes * Telephone Encounter - Rita Pena LPN - 07/23/2020 3:17 PM EDT Please call us back to schedule your growth ultrasound. documented in this encounter Plan of Treatment Not on file documented as of this encounter Visit Diagnoses Not on filedocumented in this encounter Care Teams Colorer Hides And Skins Relationship Specialty Start Date End Date No Pcp, [place] [address] PCP - General Family Medicine 08/15/22 documented as of this encounter
--- OUTSIDE RECORDS SUMMARY | 2024-08-02 16:36 | XMS_ITS | Clinical Summary ---
Author Organization [facility] tem Address [id number] [address] [place] [address] Care Team Providers Care Pin Chaser Name Role Phone No Pcp, No Pcp Primary Care Provider Unavailabl e Active Problems Problem Noted Date Diagnosed Date High risk with low PAPPA (-associated plasma protein A) 03/29/2020 Supervision of high-risk 03/29/2020 Social History Tobacco Use Types Packs/Day Years [...] on file Sexual Orientation Not on file Plan of Treatment Health Maintenance Due Date Last Done Comments Depression Screening 2010 Tobacco Screening 2010 Adult BMI Screening 2016 Pap Smear 2019 Influenza Vaccine 11/07/2024 02/09/2020 DTaP,Tdap and Td Vaccines (8 - Td or Tdap) 07/11/2030 07/11/2020, 11/05/2009, 01/13/2005, Additional history exists Medical Devices Not on file Insurance [place] [employer] Care Teams Pin Chaser Relationship Specialty Start Date End Date No Pcp, [place] [address] PCP - General Family Medicine 08/15/22
--- OUTSIDE RECORDS SUMMARY | 2024-08-02 16:36 | XMS_ITS | Encounter Summary ---
Author Organization [facility] Address [address] [place] [address] Care Team Providers Care High School Drafting Teacher Name Role Phone Unallocated, Noms Provider Primary Care Provi kristopher Angel Seay MD Primary Care Provider [phone] Alina Schmitz NP Unavailable [phone] Encounter Details Date Type Department Care Team (Late st Contact Info) Description 11/16/2023 Abstract [facility] BCP OB [address] [place] [phone] Newton Carter, DO [address] [place], [facility] Social History Tobacco Use Types Packs/Day [...] Recorded Patient Health Questionnaire-2 Score 0 04/29/2023 [place] Depression Scale Answer Date Recorded [place] Depression Scale Total 0 04/13/2023 The thought [...] AM EDT Routine [facility] BCP OB [address] [address] Newton Carter DO [address] [facility] [place] [address] documented as of this encounter Visit Diagnoses Not on filedocumented in this encounter Care Teams High School Drafting Teacher Relationship Specialty Start Date End Date Unallocated, Noms MD Jean Claude [address] [place] [address] PCP - General Family Medicine 04/13/23 01/25/24 Angel Seay MD [address] [place] [address] PCP - General Family Medicine 01/26/24 Alina Schmitz NP [address] [place] [phone] Nurse Practitioner Family Medicine 01/26/24 documented as of this encounter
--- OUTSIDE RECORDS SUMMARY | 2024-08-02 16:36 | XMS_ITS | Encounter Summary ---
Author Organization [facility] Address [address] [place] [address] Care Team Providers Care Geriatric Physical Therapist Name Role Phone Unallocated, Noms Provider Primary Care Provi kristopher Angel Seay MD Primary Care Provider Alina Schmitz NP Unavailable [phone] Encounter Details Date Type Department Care Team (Late st Contact Info) Description 04/30/2023 Orders Only [facility] OB [address] [facility] [address] [place] [phone] Dawn Huitron MD [address] [facility] [address] [place] [address] Social History Tobacco Use Types Packs/Day Years Used Date Smoking Tobacco: Never Smokeless Tobacco: Never Alcohol Use Standard Drinks/Week Comments Not Currently 0 (1 standard drink = 0.6 oz pur e alcohol) none with PHQ-2 Answer Date Recorded Patient Health Questionnaire-2 Score 0 04/29/2023 [place] Depression Scale Answer Date Recorded [place] Depression Scale Total 0 04/13/2023 The [...] AM EDT Routine [facility] BCP OB [address] [facility] [place] [address] Newton Carter, DO [address] [facility] [place] [address] documented as of this encounter Procedures Procedure Name Priority Date/Time Associated Diagnosis Comments ABO GROUP AND RH TYPE Routine 04/29/2023 9:35 AM EST documented in this encounter Results * ABO/Rh (04/29/2023 9:35 AM EST) Blood Venous blood specimen / Unknown us Dawn Huitron MD LAB BLOOD ORDERABLES Final Res ult documented in this encounter Visit Diagnoses Not on filedocumented in this encounter Care Teams Geriatric Physical Therapist Relationship Specialty Start Date End Date Unallocated, Noms MD Jean Claude [address] [place] [address] PCP - General Family Medicine 04/13/23 01/25/24 Angel Seay MD [address] [place] [address] PCP - General Family Medicine 01/26/24 Alina Schmitz NP [address] [place] [address] Nurse Practitioner Family Medicine 01/26/24 documented as of this encounter
--- OUTSIDE RECORDS SUMMARY | 2024-08-02 16:37 | XMS_ITS | Encounter Summary ---
Author Organization [facility] Address [address] [place] [address] Care Team Providers Care Psychology Teacher Name Role Phone Unallocated, Noms Provider Primary Care Provi kristopher Angel Seay MD Primary Care Provider Alina Schmitz NP Unavailable [phone] Encounter Details Date Type Department Care Team (Late st Contact Info) Description 11/10/2023 Clinisync Result Encounter [facility] External Department Unsolicited Partha Carter, DO [address] [place], [place] [id number] Social History Tobacco Use Types Packs/Day Years [...] Recorded Patient Health Questionnaire-2 Score 0 04/29/2023 [place] Depression Scale Answer Date Recorded [place] Depression Scale Total 0 04/13/2023 The thought [...] OB [address] [place] [address] Partha Carter DO [address] [place] [address] documented as of this encounter Procedures Procedure Name Priority Date/Time Associated Diagnosis Comments US OB TRANSVAGINAL 11/10/2023 10 :17 AM EDT documented in this encounter Results * US OB TRANSVAGINAL (11/10/2023 10:17 AM EDT) Anatomical Region Laterality Modality Other 11/10/2023 10:1 7 AM EDT Narrative 11/10/2023 10:19 AM EDT [address] [address] Ultrasound Report Signed Patient: Sarah EVANS MR#: [id number] : 2000 Acct:[id number] Age/Sex: 23 / F ADM Date: 11/10/23 Loc: [facility] Attending Dr: Partha Carter D.O. Ordering Physician: Partha Carter D.O. Date of Service: 11/10/23 Procedure(s): US OB transvaginal Accession Number(s): [id number] cc: Partha Carter D.O.; Physician,Non-Staff M.Damian The [address] [address] Patient Name: SARAH EVANS MRN: [id number] date: 2000 Sex: F Assigned Patient Location: [facility] Current Patient Location: [facility] Accession/Order Number: [id number] Exam Date: 11/10/2023 08:30 Report Date: 11/10/2023 10:17 At the request of: PARTHA CARTER Procedure: US OB transvaginal EXAMINATION: US OB transvaginal HISTORY: Missed menses COMPARISON: Ultrasound OB transvaginal 10/23/2023 FINDINGS: GESTATIONAL SAC: Absent YOLK SAC: Absent POLE: Absent CARDIAC: Absent UTERUS: Enlarged endometrial cavity filled with soft tissue structure containing innumerable small cystic areas. OVARIES: Right: Corpus lutein cyst. Left: Normal. CERVIX: 4.4 cm in length and closed. CUL-DE-SAC: Normal. OTHER: None. AGE BY LMP: 11 weeks 1 day YUE BY LMP: 05/30/2024 AGE BY US CRL: Not applicable YUE BY US CRL: US/US OB transvaginal IMPRESSION: 1. Molar . Electronically authenticated by: FAUSTINO CRANE Date: 11/10/2023 10:17 Dictated By: Faustino Crane M.D. Signed By: 11/10/23 1019 DD/ 1017 TD/TT: Dictaphone Technician: Procedure Note Radiology, Radiologist, MD - 11/10/2023 [place] [address] Ultrasound Report Signed Patient: Sarah EVANS GMR#: [id number] : 2000Acct:[id number] Age/Sex: 23 / FADM Date: 11/10/23 Loc: [facility] Attending Dr: Partha Carter D.O. Ordering Physician: Partha Carter D.O. Date of Service: 11/10/23 Procedure(s): US OB transvaginal Accession Number(s): [id number] cc: Partha Carter D.O.; Physician,Non-Staff Sherie The [address] [address] Patient Name: SARAH EVANS MRN: [id number] date: 2000 Sex: F Assigned Patient Location: [facility] Current Patient Location: [facility] Accession/Order Number: [id number] Exam Date: 11/10/2023 08:30 Report Date: 11/10/2023 10:17 At the request of: PARTHA CARTER Procedure: US OB transvaginal EXAMINATION: US OB transvaginal HISTORY: Missed menses COMPARISON: Ultrasound OB transvaginal 10/23/2023 FINDINGS: GESTATIONAL SAC: Absent YOLK SAC: Absent POLE: Absent CARDIAC: Absent UTERUS: Enlarged endometrial cavity filled with soft tissue structure containing innumerable small cystic areas. OVARIES: Right: Corpus lutein cyst. Left: Normal. CERVIX: 4.4 cm in length and closed. CUL-DE-SAC: Normal. OTHER: None. AGE BY LMP: 11 weeks 1 day YUE BY LMP: 05/30/2024 AGE BY US CRL: Not applicable YUE BY US CRL: US/US OB transvaginal IMPRESSION: 1. Molar . Electronically authenticated by: FAUSTINO CRANE Date: 11/10/2023 10:17 Dictated By: Faustino Crane M.D. Signed By:11/10/23 1019 DD/ 1017 TD/TT: Dictaphone Technician: us Partha Carter DO [facility] Final Result documented in this encounter Visit Diagnoses Not on filedocumented in this encounter Care Teams Psychology Teacher Relationship Specialty Start Date End Date Unallocated, Noms Provider, [address] [place] [address] PCP - General Family Medicine 04/13/23 01/25/24 Angel Seay MD [address] [place] [address] PCP - General Family Medicine 01/26/24 Alina Schmitz NP [address] [place] [id number] Nurse Practitioner Family Medicine 01/26/24 documented as of this encounter
--- NOTE | 2024-08-02 16:47 | US_ITS ---
The [address] [address] Patient Name: ÁNGEL EVANS MRN: [id number] date: 2000 Sex: F Assigned Patient Location: US Current Patient Location: US Accession/Order Number: [id number] Exam Date: 08/02/2024 18:52 Report Date: 08/02/2024 18:58 At the request of: YRIS DEUTSCH Procedure: US OB cervical length US OB cervical length 08/02/2024 5:18 PM SIGNS AND SYMPTOMS: ^11/21/2024 ^ENCOUNTER SCREENING FOR CERVICAL LENGTH Z36.86 COMPARISON: 07/05/2024. TECHNIQUE: Rousseau scale images of the gravid uterus. FINDINGS: The visualized fetus has an estimated gestational age of 24 weeks 1 day. A heart rate is identified at 154 bpm. A normal amount of amniotic fluid is present. The placenta is 7.1 cm from the internal os of the cervix and is anteriorly located. The cervical os is closed. The cervix measures 3.5 cm in length. Pelvic survey reveals no gross abnormalities. US/US OB cervical length IMPRESSION: Single live IUP with an estimated gestational age of 24 weeks 1 day with and a normal heart rate. The cervical os is closed. The cervix measures 3.5 cm in length. Impression dictated by: Roel Daniels M.D. 08/02/2024 6:58 PM Dictation Location: [place] [address] Electronically authenticated by: [id number] Y Date: 08/02/2024 18:58
--- OUTSIDE RECORDS SUMMARY | 2024-08-02 18:51 | XMS_ITS | CCD ---
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 Name Role Phone AICHHOLZ, BELT SANDER ALINA Primary Care Unavailable KOFI CURRIE Consulting Unavailable KOFI CURRIE Admitting Unavailable KOFI CURRIE Attending Unavailable AICHHOLZ, BELT SANDER ALINA Primary Care Unavailable QUIQUE, DR KECIA Devi Consulting Unavailable KOFI CURRIE Attending Unavailable KOFI CURRIE Admitting Unavailable KOFI CURRIE Consulting Unavailable KOFI CURRIE [facility]AD[facility]ID Referring Unavailable AICHHOLZ, BELT SANDER ALINA Primary Care Unavailable KOFI CURRIE Consulting Unavailable KOFI CURRIE Admitting Unavailable KARASIK, DR STRONG Attending Unavailable AICHHOLZ, BELT SANDER ALINA Primary Care Unavailable KARASIK, DR STRONG Consulting Unavailable KARASIK, DR STRONG Admitting Unavailable KARASIK, DR STRONG Procedure Practitioner Unava ilable KOFI CURRIE Consulting Unavailable KOFI CURRIE Attending Unavailable AICHHOLZ, BELT SANDER ALINA Primary Care Unavailable KOFI CURRIE Admitting Unavailable AICHHOLZ, BELT SANDER ALINA Primary Care Unavailable KARASIK, DR STRONG Consulting Unavailable KARASIK, DR STRONG Admitting Unavailable KARASIK, DR STRONG Attending Unavailable KOFI CURRIE Consulting Unavailable KOFI CURRIE Attending Unavailable AICHHOLZ, BELT SANDER ALINA Primary Care Unavailable KOFI CURRIE Admitting Unavailable AICHHOLZ, BELT SANDER ALINA Primary Care Unavailable KOFI CURRIE Consulting Unavailable KOFI CURRIE Admitting Unavailable KOFI CURRIE Attending Unavailable AICHHOLZ, BELT SANDER ALINA Admitting Unavailable AICHHOLZ, BELT SANDER ALINA Attending Unavailable AICHHOLZ, BELT SANDER ALINA Consulting Unavailable AICHHOLZ, BELT SANDER ALINA Primary Care Unavailable Unavailable Primary Care Provider Unavailabl e Unallocated, Noms Provider Primary Care Provider MD Dawn Huitron Attending Provider NO FAMILY, PHYSICIAN Primary Care Provider Unava ilable NO FAMILY, PHYSICIAN Primary Care Provider Unava ilable DO Newton Carter Attending Provider NO FAMILY, PHYSICIAN Primary Care Unavailable Dawn Huitron Admitting Unavailable Dawn Huitron Attending Unavailable NO FAMILY, PHYSICIAN Primary Care Unavailable Dawn Huitron Admitting Unavailable Dawn Huitron Attending Unavailable Newton Carter Admitting Unavailable Newton Carter Attending Unavailable NO FAMILY, PHYSICIAN Primary Care Unavailable Unallocated MD, Sondra Provider Primary Care Provi kristopher Unallocated MD, Sondra Provider Primary Care Provi kristopher Dawood MASSEY, Angel Primary Care Provider [phone] Nadir TRAINING AND DEVELOPMENT COORDINATOR, Alina Unavailable YRIS CASTELLANOS Attending Unavailable SARAH KERN Attending Unavailable NEWTON CARTER Attending Unavailable SARAH KERN Attending Unavailable Medications [...] hydrochloride 500 mg extended release oral tablet (18 sources) Biguanide Start: 01-06-2024 End: 12-31-2024 take [...] w/FA-DHA ( Gummies) 0.18-25 MG chewable tablet (16 sources) Start: 04-07-2024 MV & Min w/FA-DHA [...] Problem Date Documented Date Episodic/Chronic Administrative/social admission (6 sources) Patient encounter status; Translations: [Persons encountering health services in other specified circumstances] 01-06-2024 Episodic Conditions associated with dizziness or vertigo (1 source) Dizziness and giddiness; Translations: [DIZZINESS AND GIDDINESS] Onset: 09-04-2020 Episodic Hemorrhage during ; abruptio placenta; placenta previa (2 sources) Antepartum hemorrhage; Translations: [Hemorrhage in early , unspecified] 04-20-2023 Episodic Immunizations and screening for infectious disease (2 sources) Exposure to sexually transmissible disorder; Translations: [Contact with and (suspected) exposure to infections with a predominantly sexual mode of transmission] 06-06-2024 Episodic Menstrual disorders (1 source) Missed period; [...] care or not applicable] 04-07-2024 Episodic Other complications of (2 sources) Abnormal glucose tolerance in mother complicating , childbirth AND/OR puerperium; Translations: [Other specified related conditions, unspecified trimester] 05-09-2024 Episodic Other female genital disorders (18 sources) Vaginal bleeding; Translations: [Abnormal uterine and vaginal bleeding, unspecified] Onset: 02-16-2024 04-29-2023 Chronic Other female genital disorders (2 sources) Abnormal uterine and vaginal bleeding, unspecified; Translations: [Other specified noninflammatory disorders of vagina] Onset: 04-29-2023 04-30-2023 Chronic Other female genital disorders (1 source) Other specified noninflammatory disorders of vagina; Translations: [OTH SPEC NONINFLAMMATORY D/O VAGINA] Onset: 09-14-2020 Episodic Other female genital disorders (4 sources) Vaginal discharge; Translations: [Other specified noninflammatory disorders of vagina] 04-20-2023 Episodic Other nutritional; endocrine; and metabolic disorders (1 source) Obesity, unspecified; Translations: [OBESITY UNSPECIFIED] Onset: 10-05-2020 Chronic Other and delivery including normal (17 sources) Encounter for routine follow-up; Translations: [Single [...] WEEKS GESTATION OF ] Onset: 08-24-2020 Episodic Residual codes; unclassified (2 sources) Gestation period, 12 weeks; Translations: [12 weeks gestation of ] 05-09-2024 Episodic Residual codes; unclassified (2 sources) Gestation period, 16 weeks; Translations: [16 weeks gestation of ] 06-06-2024 Episodic Residual codes; unclassified (2 sources) Gestation period, 22 weeks; Translations: [22 weeks gestation of ] 07-20-2024 Episodic Unclassified (1 source) CONTACT W/AND (SUSP) [...] Test Name Value Interpretation Reference Range Facility Urinalysis macro (dipstick) panel (U)on 07-20-2024 Bilirubin, UA Negative Negative - 4(70) +++ mg/dL [facility] Blood, UA Negative Negative - 50 Sherman/mcL [facility] Clarity, UA Clear [facility] Color, UA Yellow [facility] Glucose, UA Negative Negative - 1999(110) ++++ mg/dL [facility] Interpretation and review of laboratory results Normal [facility] Ketones, UA Negative Negative - 160(16) ++++ mg/dL [facility] Leukocytes, UA Positive Negative - 500+++ Jackie/mcL [facility] Comment on above: small Nitrite, UA Negative Negative - Positive [facility] pH, UA 7 5 - 9 [facility] Protein, UA Positive Negative - 1999(20) ++++ mg/dL [facility] Comment on above: 30 Spec Grav, UA 1.025 1 - 1.03 [facility] Urobilinogen, UA 0.2 0.2 - 12 mg/dL [facility] No Panel InformationOrdered By: Radiologist Radiology on 07-06-2024 [facility] Work Phone: No Panel Informationon 07-06 Radiology Study observation (narrative) [facility] US OB ANATOMYon 07-06-[address] [address] Ultrasound Report Signed Patient: SARAH ARCE MR#: [id number] : 2000 Acct:[id number] Age/Sex: 24 / F ADM Date: 07/05/24 Loc: US Attending Dr: Sarah Kern Ordering Physician: Sarah Kern Date of Service: 07/05/24 Procedure(s): US OB anatomy Accession Number(s): [id number] cc: Alina Schmitz TRAINING AND DEVELOPMENT COORDINATOR; Sarah Kern [address] [address] Patient Name: SARAH ARCE MRN: [id number] date: 2000 Sex: F Assigned Patient Location: US Current Patient Location: Accession/Order Number: [id number] Exam Date: 07/06/2024 08:58 Report Date: 07/06/2024 09:06 At the request of: SARAH KERN Procedure: US OB cervical length Anatomy ultrasound. Cervical length ultrasound. Reason for exam: Anatomic survey. COMPARISON: None. TECHNIQUE: Transabdominal imaging of the gravid uterus was obtained. FINDINGS: Single live intrauterine measuring 20 weeks 5 days by anatomic measurements with a heart rate of 144 bpm. position is breech at time of scanning. Estimated weight is 370 g (76.2%). Placenta is anterior in location without focal abnormality. Amniotic fluid volume is subjectively normal. Anatomic survey demonstrates all 4 extremities are seen. Spine appears intact. No hydrocephalus. Four-chamber heart. Outflow tracts appear normal. Three-vessel cord. Cord insertion appears normal. Nasal bone appears present.Kidneys appear unremarkable. Cervical length is 4.6 cm without evidence of funneling. The tip of the placenta is approximately 2.6 cm from the internal os. US/US OB anatomy IMPRESSION: Single live intrauterine 20 weeks 5 days by anatomic measurements. Normal survey. Cervical length measuring 4.6 cm evidence of funneling. Impression dictated by: Pedro Luis Jack Jr., DAmalia 07/06/2024 9:06 AM Dictation Location: [employer] Electronically authenticated by: [id number] Y Date: 07/06/2024 09:06 Dictated By: Pedro Luis Jack M.D. Signed By: 07/06/24908 DD/ 5 TD/TT: Wood Buffer: [employer] Radiology, Radiologist, MD - 07/06/2024 [place] [address] Ultrasound Report Signed Patient: SARAH ARCE MR#: [id number] : 2000 Acct:[id number] Age/Sex: 24 / F ADM Date: 07/05/24 Loc: US Attending Dr: Sarah Kern Ordering Physician: Sarah Kern Date of Service: 07/05/24 Procedure(s): US OB anatomy Accession Number(s): [id number] cc: Alina Schmitz NP; Sarah Kern [facility] [place] [id number] Patient Name: SARAH ARCE MRN: [employer]:[id number] date: 2000 Sex: F Assigned Patient Location: Current Patient Location: Accession/Order Number: [id number] Exam Date: 07/06/2024 08:58 Report Date: 07/06/2024 09:06 At the request of: SARAH EKRN Procedure: US OB cervical length Anatomy ultrasound. Cervical length ultrasound. Reason for exam: Anatomic survey. COMPARISON: None. TECHNIQUE: Transabdominal imaging of the gravid uterus was obtained. FINDINGS: Single live intrauterine measuring 20 weeks 5 days by anatomic measurements with a heart rate of 144 bpm. position is breech at time of scanning. Estimated weight is 370 g (76.2%). Placenta is anterior in location without focal abnormality. Amniotic fluid volume is subjectively normal. Anatomic survey demonstrates all 4 extremities are seen. Spine appears intact. No hydrocephalus. Four-chamber heart. Outflow tracts appear normal. Three-vessel cord. Cord insertion appears normal. Nasal bone appears present.Kidneys appear unremarkable. Cervical length is 4.6 cm without evidence of funneling. The tip of the placenta is approximately 2.6 cm from the internal os. US/US OB anatomy IMPRESSION: Single live intrauterine 20 weeks 5 days by anatomic measurements. Normal survey. Cervical length measuring 4.6 cm evidence of funneling. Impression dictated by: Pedro Luis Jack Jr., D.O. 07/06/2024 9:06 AM Dictation Location: [place] [address] Electronically authenticated by: [id number] Y Date: 07/06/2024 09:06 Dictated By: Pedro Luis Jack M.D. Signed By: 07/06/24908 DD/ 5 TD/TT: Wood Buffer: [employer] US OB CERVICAL LENGTHon 06-09 [place] [address] Ultrasound Report Signed Patient: SARAH ARCE MR#: [id number] : 2000 Acct:[id number] Age/Sex: 24 / F ADM Date: 07/05/24 Loc: US Attending Dr: Sarah Kern Ordering Physician: Sarah Kern Date of Service: 07/05/24 Procedure(s): US OB cervical length Accession Number(s): [id number] cc: Alina Schmitz NP; Sarah Isamar [place] [id number] Patient Name: SARAH ARCE MRN: [employer]:[id number] date: 2000 Sex: F Assigned Patient Location: US Current Patient Location: Accession/Order Number: [id number] Exam Date: 07/06/2024 08:58 Report Date: 07/06/2024 09:06 At the request of: SARAH KERN Procedure: US OB cervical length Anatomy ultrasound. Cervical length ultrasound. Reason for exam: Anatomic survey. COMPARISON: None. TECHNIQUE: Transabdominal imaging of the gravid uterus was obtained. FINDINGS: Single live intrauterine measuring 20 weeks 5 days by anatomic measurements with a heart rate of 144 bpm. position is breech at time of scanning. Estimated weight is 370 g (76.2%). Placenta is anterior in location without focal abnormality. Amniotic fluid volume is subjectively normal. Anatomic survey demonstrates all 4 extremities are seen. Spine appears intact. No hydrocephalus. Four-chamber heart. Outflow tracts appear normal. Three-vessel cord. Cord insertion appears normal. Nasal bone appears present.Kidneys appear unremarkable. Cervical length is 4.6 cm without evidence of funneling. The tip of the placenta is approximately 2.6 cm from the internal os. US/US OB cervical length IMPRESSION: Single live intrauterine 20 weeks 5 days by anatomic measurements. Normal survey. Cervical length measuring 4.6 cm evidence of funneling. Impression dictated by: Pedro Luis Jack Jr., D.O. 07/06/2024 9:06 AM Dictation Location: [employer] Electronically authenticated by: [id number] Y Date: 07/06/2024 09:06 Dictated By: Pedro Luis Jack M.D. Signed By: 07/06/24908 DD/ 5 TD/TT: Wood Buffer: [employer] Radiology, Radiologist, - 07/06/2024 [facility] [place] [id number] Ultrasound Report Signed Patient: SARAH ARCE MR#: [id number] : 2000 Acct:[id number] Age/Sex: 24 / F ADM Date: 07/05/24 Loc: US Attending Dr: Sarah Kern Ordering Physician: Sarah Kern Date of Service: 07/05/24 Procedure(s): US OB cervical length Accession Number(s): [id number] cc: Alina Schmitz NP; Sarah Kern [place] [id number] Patient Name: SARAH ARCE MRN: [id number] date: 2000 Sex: F Assigned Patient Location: US Current Patient Location: Accession/Order Number: [id number] Exam Date: 07/06/2024 08:58 Report Date: 07/06/2024 09:06 At the request of: SARAH KERN Procedure: US OB cervical length Anatomy ultrasound. Cervical length ultrasound. Reason for exam: Anatomic survey. COMPARISON: None. TECHNIQUE: Transabdominal imaging of the gravid uterus was obtained. FINDINGS: Single live intrauterine measuring 20 weeks 5 days by anatomic measurements with a heart rate of 144 bpm. position is breech at time of scanning. Estimated weight is 370 g (76.2%). Placenta is anterior in location without focal abnormality. Amniotic fluid volume is subjectively normal. Anatomic survey demonstrates all 4 extremities are seen. Spine appears intact. No hydrocephalus. Four-chamber heart. Outflow tracts appear normal. Three-vessel cord. Cord insertion appears normal. Nasal bone appears present.Kidneys appear unremarkable. Cervical length is 4.6 cm without evidence of funneling. The tip of the placenta is approximately 2.6 cm from the internal os. US/US OB cervical length IMPRESSION: Single live intrauterine 20 weeks 5 days by anatomic measurements. Normal survey. Cervical length measuring 4.6 cm evidence of funneling. Impression dictated by: Pedro Luis Jack Jr., D.O. 07/06/2024 9:06 AM Dictation Location: [employer] Electronically authenticated by: [id number] Y Date: 07/06/2024 09:06 Dictated By: Pedro Luis Jack M.D. Signed By: 04/908 DD/ 5 TD/TT: Wood Buffer: [facility] IGP,APTIMA HPV,AGE GDLNon AGE GDLN ACOG TESTING Note . [facility] Comment on above: TESTS RESULT FLAG [facility] REF RANGE LAB Clinician Provided Cytology Information Source.............Cervix Other.............. No. of containers..01 ThinPrep Vial Age Algo ACOG Shila... FLAG LEGEND: L-Low Normal,H-High Normal,LL-Alert Low,HH-Alert High <-Panic Low,>-Panic High,A-Abnormal,AA-Critical Abnormal Performed at: 01 =G [address] [address] Sarai Durant MD, IGP, RFX APTIMA HPV ASCU Note . [facility] Comment on above: TESTS RESULT FLAG [facility] REF [facility]ANGE [facility] DIAGNOSIS: 02 NEGATIVE FOR INTRAEPITHELIAL LESION OR MALIGNANCY. THIS SPECIMEN WAS RESCREENED PART OF OUR ARCH CUSHION PRESS OPERATOR PROGRAM. Specimen adequacy: 02 Satisfactory for evaluation. No endocervical component is identified. An endocervical component is not commonly seen in the patient. Performed by: 03 My Kraus, Veterinary Assistant Technician ([facility]) QC reviewed by: 02 Debbie Pagan, Veterinary Assistant Technician ([facility]) . 02 Note: Note 02 The Pap smear is a screening test designed to aid in the detection of premalignant and malignant conditions of the uterine cervix. It is not a diagnostic procedure and should not be used as the sole means of detecting cervical cancer. Both false-positive and false-negative reports do occur. Test Methodology: Note 02 This liquid based ThinPrep(R) pap test was screened with the use of an image guided system. . 02 The HPV DNA reflex criteria were not met with this specimen result therefore, no HPV testing was performed. FLAG LEGEND: L-Low Normal,H-High Normal,LL-Alert Low,HH-Alert High <-Panic Low,>-Panic High,A-Abnormal,AA-Critical Abnormal Performed at: [address] [facility] [address] [place] [address] Sarai Durant MD, 03 REEVES [facility] [address] [place] [address] Marito Torres PhD, Performed at: =G - [facility] [address], [place] [id number] Forensic Scientist: Sarai Durant MD, Phone: [phone] Performed at: - [facility] [id number] Forensic Scientist: Sarai Durant MD, Phone: [phone] [facility] GLUCOSE 1 HOURon 06-07-2024 Glucose [Mass/Vol] 108 mg/dL NINF - 13 0 mg/dL [facility] RECURRENT VAGINITIS (HTRX)on 06-07-2024 ATOPOBIUM VAGINAE 0 [facility] ATOPOBIUM VAGINAE Not detected [facility] BVAB 2,3 (BACTERIAL VAGINOSIS ASSOCIATED BACTERIA 2, 3); MOBILUNCUS SPP 0 [facility] BVAB 2,3 (BACTERIAL VAGINOSIS ASSOCIATED BACTERIA 2, 3); MOBILUNCUS SPP Not detected [facility] ANTONINO ALBICANS, PARAPSILOSIS, TROPICALIS 0 [facility] ANTONINO ALBICANS, PARAPSILOSIS, TROPICALIS Not detected [facility] ANTONINO GLABRATA 0 [facility] ANTONINO GLABRATA Not detected [facility] ANTONINO KRUSEI 0 [facility] ANTONINO KRUSEI Not detected [facility] CHLAMYDIA TRACHOMATIS 0 [facility] CHLAMYDIA TRACHOMATIS Not detected N [facility] GARDNERELLA VAGINALIS 0 [facility] GARDNERELLA VAGINALIS Not detected N [facility] MEGASPHAERA (TYPES 1, 2) 0 [facility] MEGASPHAERA (TYPES 1, 2) Not detected [facility] MYCOPLASMA GENITALIUM 0 [facility] MYCOPLASMA GENITALIUM Not detected N [facility] NEISSERIA GONORRHOEAE 0 [facility] NEISSERIA GONORRHOEAE Not detected N [facility] TRICHOMONAS VAGINALIS 0 [facility] TRICHOMONAS VAGINALIS Not detected N [facility] Urinalysis macro (dipstick) panel (U)on 06-06-2024 Bilirubin, UA Positive Negative - 4(70) +++ mg/dL [facility] Comment on above: small Blood, UA Negative Negative - 50 Sherman/mcL [facility] Clarity, UA Clear [facility] Color, UA Hanna [facility] Glucose, UA Negative Negative - 1999(110) ++++ mg/dL [facility] Interpretation and review of laboratory results Abnormal [facility] Ketones, UA Positive Negative - 160(16) ++++ mg/dL [facility] Comment on above: 160 Leukocytes, UA Negative Negative - 500+++ Jackie/mcL [facility] Nitrite, UA Negative Negative - Positive [facility] pH, UA 5.5 5 - 9 [facility] Protein, UA Positive Negative - 1999(20) ++++ mg/dL [facility] Comment on above: 100 Spec Grav, UA 1.03 1 - 1.03 [facility] Urobilinogen, UA 0.2 0.2 - 12 mg/dL [facility] MLR HEMOGLOBIN A1Con 025 Glucose [Mass/Vol] 105 mg/dL [facility] HbA1c (Bld) [Mass fraction] 5.3 % 4.5 - 6.2 % [facility] Comment on above: ADA RECOMMENDED LIMI T 4.0 - 6.0 ADA THERAPEUTIC TARGET < 7.0 ACTION SUGGESTED > 7.0 [facility] Urinalysis macro (dipstick) panel (U)on 05-09-2024 Bilirubin, UA Positive Negative - 4(70) +++ mg/dL [facility] Comment on above: small Blood, UA Negative Negative - 50 Sherman/mcL [facility] Clarity, UA Clear [facility] Color, UA Yellow [facility] Glucose, UA Negative Negative - 2000(110) ++++ mg/dL [facility] Interpretation and review of laboratory results Abnormal [facility] Ketones, UA Positive Negative - 160(16) ++++ mg/dL [facility] Comment on above: trace Leukocytes, UA Positive Negative - 500+++ Jackie/mcL [facility] Comment on above: small Nitrite, UA Negative Negative - Positive [facility] pH, UA 6.5 5 - 9 [facility] Protein, UA Positive Negative - 2000(20) ++++ mg/dL [facility] Comment on above: 100mg/dL Spec Grav, UA 1.025 1 - 1.03 [facility] Urobilinogen, UA 1.0 0.2 - 12 mg/dL [facility] HCG ( test) Ql (U)o n 04-07-2024 Interpretation and review of laboratory results Abnormal [facility] Preg Test, Ur Positive Negative [facility] US OB TRANSVAGINALon 025 US OB TRANSVAGINAL TITLE OF EXAM: OB Ultrasound: [...] report is generated using voice recognition reporting ([employer]). On occasion [employer] erroneously drops words from the report or [...] UA Negative Negative - 4(70) +++ mg/dL [facility] Blood, UA Positive Negative - 50 Sherman/mcL [facility] Comment on above: trace Clarity, UA Clear [facility] Color, UA Yellow [facility] Glucose, UA Negative Negative - 1999(110) ++++ mg/dL [facility] Interpretation and review of laboratory results Abnormal [facility] Ketones, UA Positive Negative - 160(16) ++++ mg/dL [facility] Comment on above: trace Leukocytes, UA Trace Negative - 500+++ Jackie/mcL [facility] Nitrite, UA Negative Negative - Positive [facility] pH, UA 5.5 5 - 9 [facility] Protein, UA Trace Negative - 1999(20) ++++ mg/dL [facility] Spec Grav, UA 1.03 1 - 1.03 [facility] Urobilinogen, UA 0.2 0.2 - 12 mg/dL [facility] PREG QUANT HCGon 024 HCG QUANTITATIVE 5 mIU/mL [facility] Comment on above: 5-50 0.2-1 WEEK 50-500 1-2 WEEKS 100-5,000 2-3 WEEKS 500-10,000 3-4 WEEKS 1,000-50,000 4-5 WEEKS 10,000-100,000 5-6 WEEKS 15,000-200,000 6-8 WEEKS 10,000-100,000 [facility] 024 HCG QUANTITATIVE 16 mIU/mL [facility] Comment on above: 5-50 0.2-1 WEEK 50-500 1-2 WEEKS 100-5,000 2-3 WEEKS 500-10,000 3-4 WEEKS 1,000-50,000 4-5 WEEKS 10,000-100,000 5-6 WEEKS 15,000-200,000 6-8 WEEKS 10,000-100,000 2-3 MONTHS [facility] PREG QUANT HCGon 024 HCG QUANTITATIVE 70 mIU/mL [facility] Comment on above: 5-50 0.2-1 WEEK 50-500 1-2 WEEKS 100-5,000 2-3 WEEKS 500-10,000 3-4 WEEKS 1,000-50,000 4-5 WEEKS 10,000-100,000 5-6 WEEKS 15,000-200,000 6-8 WEEKS 10,000-100,000 2-3 MONTHS [facility] ALL CBC WITH AUTO DIFFon BASOPHILS ABSOLUTE AUTO 0.0 [facility] Basophils/100 WBC (Bld) 0.2 % 0.2 - 2.0 % [facility] Eosinophils/100 WBC (Bld) 0.7 % Low 0.9 - 7.0 % [facility] Erythrocyte distribution width (RBC) [Ratio] 13.3 % 11.0 - 15.0 % [facility] Hematocrit (Bld) [Volume fraction] 37.9 % 36.0 - 48.0 % [facility] Hemoglobin (Bld) [Mass/Vol] 13.0 g/dL 12.0 - 16.0 g/dL [facility] IMMATURE GRANULOCYTES ABS AUTO 0.03 [facility] Immature granulocytes/100 WBC (Bld) 0.3 % 0.0 - 0.5 % [facility] Interpretation and review of laboratory results Abnormal [facility] LYMPHOCYTES ABSOLUTE AUTO 1.7 [facility] Lymphocytes/100 WBC (Bld) 14.9 % Low 20.5 - 60.0 % [facility] MCH (RBC) [Entitic mass] 27.6 pg 26.7 - 34.0 pg [facility] MCHC (RBC) [Mass/Vol] 34.3 g/dL 29.9 - 35.2 g/dL [facility] MCV (RBC) [Entitic vol] 80.5 fL Low 81.0 - 99.0 fL [facility] MONOCYTES ABSOLUTE AUTO 0.6 [facility] Monocytes/100 WBC (Bld) 5.6 % 1.7 - 12.0 % [facility] NEUTROPHILS ABSOLUTE AUTO 8.7 High [facility] Neutrophils/100 WBC (Bld) 78.3 % High 43.0 - 75.0 % [facility] Platelet mean volume (Bld) [Entitic vol] 9.1 fL Low 9.5 - 13.5 fL [facility] EO # 0.1 [facility] TB PLT 297 [facility] RBC 4.71 [facility] TB WBC 11.1 High [facility] CLINISYNC [facility] Leif 11-13-2023 L Specimen: [id number] Received: 11/16/23 Status: RUBINA Sharpe Num: [id number] Spec Type: Surgical Subm Dr: Newton Carter Tissues: A Products of Conception - Spontaneous or Missed (POC MOLAR Procedures: HE/3, Gross/Micro L4 Age/ Patient Sex Location Account Attending Physician Sarah Arce 23/F [id number] Newton Carter SPEC NUM: [id number] RECD: 11/16/23 STATUS: [facility] NUM: [id number] MARY: 11/13/[address]: Newton Carter ENTERED: 11/16/[address]: Myriam,Lab SPEC TYPE: Surgical DEPT: [employer]BY [employer] ENTERED BY: [id number] RECV BY: [id number] ORDERED: HE/3, Gross/Micro L4 ORDERED: HE/3, Gross/Micro [...] the complete mole Clinical Information Molar Specimen: [id number] Received: 11/16/23 Status: RUBINA Sharpe Num: [id number] Spec Type: Surgical Subm Dr: Newton Carter Tissues: A Products of Conception - Spontaneous or Missed (POC MOLAR Procedures: RYANJerel, Gross/Micro L4 Patient: Sarah Arce [id number] (Continued) Specimen: [id number] Received: 11/16/23 (Continued) Signed (signature on file) Antonia Camarena MD 11/21/23 1057 Specimen: [id number] Received: 11/16/23 Status: RUBINA Sharpe Num: [id number] Spec Type: Surgical Subm Dr: Newton Carter Tissues: A Products of Conception - Spontaneous or Missed (POC MOLAR Procedures: /3, Gross/Micro L4 Patient: Sarah Arce [id number] (Continued) Specimen: [id number] Received: 11/16/23 (Continued) Gross Description The specimen was received in formalin with the patient's name and products of conception and consists of multiple jasmine-pink hemorrhagic soft tissue fragments measuring 12.0 x 11.0 x 1.5 cm in aggregate. Multiple cystic structures are identified ranging in size from 0.1 to 0.5 cm. The cysts are filled with a clear fluid. [employer] sections of the cystic structures are submitted in cassettes A1-A3 DM Microscopic Description Microscopic examinations are performed supporting the above interpretation CPT Codes 57241 Specimen: [id number] Received: 11/16/23 Status: RUBINA Sharpe Num: [id number] Spec Type: Surgical Subm Dr: Newton Carter Tissues: A Products of Conception - Spontaneous or Missed (POC MOLAR Procedures: HE/3, Gross/Micro L4 Patient: Sarah Arce [id number] (Continued) Signed (signature on file) Antonia Camarena MD 11/21/23 1057 Normal [facility] ALL CBC WITH AUTO DIFFon BASOPHILS ABSOLUTE AUTO 0.0 [facility] Basophils/100 WBC (Bld) 0.2 % 0.2 - 2.0 % [facility] Eosinophils/100 WBC (Bld) 1.3 % 0.9 - 7.0 % [facility] Erythrocyte distribution width (RBC) [Ratio] 13.3 % 11.0 - 15.0 % [facility] Hematocrit (Bld) [Volume fraction] 37.4 % 36.0 - 48.0 % [facility] Hemoglobin (Bld) [Mass/Vol] 12.6 g/dL 12.0 - 16.0 g/dL [facility] IMMATURE GRANULOCYTES ABS AUTO 0.02 [facility] Immature granulocytes/100 WBC (Bld) 0.2 % 0.0 - 0.5 % [facility] Interpretation and review of laboratory results Abnormal [facility] LYMPHOCYTES ABSOLUTE AUTO 1.4 [facility] Lymphocytes/100 WBC (Bld) 12.1 % Low 20.5 - 60.0 % [facility] MCH (RBC) [Entitic mass] 27.0 pg 26.7 - 34.0 pg [facility] MCHC (RBC) [Mass/Vol] 33.7 g/dL 29.9 - 35.2 g/dL [facility] MCV (RBC) [Entitic vol] 80.1 fL Low 81.0 - 99.0 fL [facility] MONOCYTES ABSOLUTE AUTO 0.7 [facility] Monocytes/100 WBC (Bld) 6.4 % 1.7 - 12.0 % [facility] NEUTROPHILS ABSOLUTE AUTO 9.2 High [facility] Neutrophils/100 WBC (Bld) 79.8 % High 43.0 - 75.0 % [facility] Platelet mean volume (Bld) [Entitic vol] 9.1 fL Low 9.5 - 13.5 fL [facility] TBH EO # 0.2 [facility]H PLT 284 [facility] TB RBC 4.67 [facility] TB WBC 11.5 High [facility] Automated basophil %Ordered By: CHUCK Huitron on 04-30-2023 Basophils/100 WBC (Bld) 0.7 % Normal . [facility] Comment on above: Performed By: #### C BC, HCGQNT #### [address] Automated basophil countOrde red By: CHUCK Huitron on 04-30-2023 Basophils (Bld) [#/Vol] 0.1 10*3/uL Normal 0.0-0.2 [facility] Comment on above: Result Comment: PERF ORMED BY: [place] [address] PATHOLOGIST NAT INSTRUCTOR CHUY PALOMO M.D. Performed By: #### C BC, HCGQNT #### [address] Automated blood monocyte cou ntOrdered By: CHUCK Huitron on 04-30-2023 Monocytes (Bld) [#/Vol] 0.5 10*3/uL Normal 0.0-0.8 [facility] Comment on above: Performed By: #### C BC, HCGQNT #### [address] Automated eosinophil %Ordere d By: CHUCK Huitron on 04-30-2023 Eosinophils/100 WBC (Bld) 1.3 % Normal . [facility] Comment on above: Performed By: #### C BC, HCGQNT #### [address] Automated eosinophil countOr dered By: CHUCK Huitron on 04-30-2023 Eosinophils (Bld) [#/Vol] 0.1 10*3/uL Normal 0.0-0.45 [facility] Comment on above: Performed By: #### C BC, HCGQNT #### [address] Automated monocyte %Ordered By: CHUCK Huitron on 04-30-2023 Monocytes/100 WBC (Bld) 6.3 % Normal . [facility] Comment on above: Performed By: #### C BC, HCGQNT #### [address] Automated neutrophil %Ordere d By: CHUCK Huitron on 04-30-2023 Neutrophils/100 WBC (Bld) 63.0 % Normal . [facility] Comment on above: Performed By: #### C BC, HCGQNT #### [address] Choriogonadotropin.beta subu nit [Units/volume] in Serum or PlasmaOrdered By: SHANNON Huitron on 04-30-2023 HCG.beta subunit Qn 2358.00 m[IU]/mL [facility] Comment on above: Approximate Approxim ate hCG Gestational Age Range (mIU/ml) (weeks)0.2-1 5-50 1-2 50-500 2-3 100-5,000 3-4 500-10,000 4-5 1,000-50,000 5-6 10,000-100,000 6-8 15,000-200,000 8-12 10,000-100,000 Complete Blood Count Auto Di ffon 04-30-2023 Mean Corpuscular HGB Conc 34.7 g/dL Normal 32.0-35.0 [facility] Comment on above: Performed By: #### C BC, HCGQNT #### [address] NRBC% 0.1 /100{WBC} Normal 0-0.5 [facility] Comment on above: Performed By: #### C BC, HCGQNT #### [address] Erythrocyte distribution wid th [Ratio] by Automated countOrdered By: CHUCK Huitron on 04-30-2023 Erythrocyte distribution width (RBC) [Ratio] 14.1 % Normal 11.9-15.3 [facility] Comment on above: Performed By: #### C BC, HCGQNT #### [address] Erythrocytes [#/volume] in B lood by Automated countOrdered By: CHUCK Huitron on 04-30-2023 RBC (Bld) [#/Vol] 4.40 10*6/uL Normal 3.60-5.00 [facility] Comment on above: Performed By: #### C BC, HCGQNT #### [address] HCG,Quantitativeon HCG,Quantitative 2358.00 m[iU]/mL Normal [facility] Comment on above: Result Comment: Appr oximate Approximate hCG Gestational Age Range (mIU/ml) (weeks) 0.2-1 5-50 1-2 50-500 2-3 100-5,000 3-4 500-10,000 4-5 1,000-50,000 5-6 10,000-100,000 6-8 15,000-200,000 8-12 10,000-100,000 PERFORMED BY: [place] [address] PATHOLOGIST NAT INSTRUCTOR CHUY PALOMO M.D. Performed By: #### C BC, HCGQNT #### [address] Hematocrit [Volume Fraction] of Blood by Automated countOrdered By: CHUCK Huitron on 04-30-2023 Hematocrit (Bld) [Volume fraction] 35.3 % Normal 34.0-46.4 [facility] Comment on above: Performed By: #### C BC, HCGQNT #### [address] Hemoglobin [Mass/volume] in BloodOrdered By: CHUCK Huitron on 04-30-2023 Hemoglobin (Bld) [Mass/Vol] 12.2 g/dL Normal 11.8-15.4 [facility] Comment on above: Performed By: #### C BC, HCGQNT #### [address] Leif 04-30-2023 L Specimen: [id number] Received: 04/30/23 Status: SOUT Req Num: [id number] Spec Type: Surgical Subm Dr: CHUCK Astorga Tissues: A Products of Conception - Spontaneous or Missed (PRODUCTS OF CONCEPT Procedures: HE/3, Gross/Micro L4 Age/ Patient Sex Location Account Attending Physician Sarah Arce 23/F N3 [id number] CHUCK Astorga SPEC NUM: [id number] RECD: 04/30/23 STATUS: RUBINA SHARPE NUM: [id number] MARY: 04/30/23- SUBM DR: CHUCK Astorga ENTERED: 04/30/23 [facility] DR: SPEC TYPE: Surgical DEPT: [...] is tentatively identified. tissue is not identified. [employer] sections focused on potential villi. [employer] sections are submitted in three cassettes labeled A1-A3. CPT Codes 88761 Specimen: [id number] Received: 04/30/23 Status: RUBINA Dell Num: [id number] Spec Type: Surgical Subm Dr: CHUCK Astorga Tissues: A Products of Conception - Spontaneous or Missed (PRODUCTS OF CONCEPT Procedures: HE/3, Gross/Micro L4 Patient: Sarah Arce [id number] (Continued) Signed (signature on file) Tavia Abad MD 05/05/23 2315 Normal [facility] Leukocytes [#/volume] correc bridget for nucleated erythrocytes in Blood by Automated counOrdered By: CHUCK Huitron on 04-30-2023 WBC corrected for nucl RBC Auto (Bld) [#/Vol] 8.4 10*3/uL 3.8-11.6 [facility] Leukocytes [#/volume] in Blo od by Automated countOrdered By: CHUCK Huitron on 04-30-2023 WBC (Bld) [#/Vol] 8.4 10*3/uL Normal 3.8-11.6 [facility] Comment on above: Performed By: #### C BC, HCGQNT #### [address] Lymphocytes [#/volume] in Bl ood by Automated countOrdered By: CHUCK Huitron on 04-30-2023 Lymphocytes (Bld) [#/Vol] 2.4 10*3/uL Normal 1.00-4.8 [facility] Comment on above: Performed By: #### C BC, HCGQNT #### [place] [address] [place] Lymphocytes/100 leukocytes i n Blood by Automated countOrdered By: CHUCK Huitron on 04-30-2023 Lymphocytes/100 WBC (Bld) 28.7 % Normal . [facility] Comment on above: Performed By: #### C BC, HCGQNT #### [address] MCH [Entitic mass] by Automa bridget countOrdered By: CHUCK Huitron on 04-30-2023 MCH (RBC) [Entitic mass] 27.8 pg Normal 24.7-34.3 [facility] Comment on above: Performed By: #### C BC, HCGQNT #### [address] MCHC Auto (RBC) [Mass/Vol]Or dered By: CHUCK Huitron on 04-30-2023 MCHC (RBC) [Mass/Vol] 34.7 g/dL 32.0-35.0 [facility] MCV [Entitic volume] by Auto mated countOrdered By: CHUCK Huitron on 04-30-2023 MCV (RBC) [Entitic vol] 80.2 fL Normal 80-100 [facility] Comment on above: Performed By: #### C BC, HCGQNT #### [place] [address] [place] Neutrophils [#/volume] in Bl ood by Automated countOrdered By: CHUCK Huitron on 04-30-2023 Neutrophils (Bld) [#/Vol] 5.3 10*3/uL Normal 1.8-7.7 [facility] Comment on above: Performed By: #### C BC, HCGQNT #### [place] [address] [place] Nucleated erythrocytes [Pres ence] in Blood by Automated countOrdered By: CHUCK Huitron on 04-30-2023 Nucleated RBC Auto Ql (Bld) 0.1 /100{WBC} 0-0.5 [facility] Platelet mean volume [Entiti c volume] in Blood by Automated countOrdered By: SHANNON Huitron on 04-30-2023 Platelet mean volume (Bld) [Entitic vol] 6.7 fL Normal 6.3-10.7 [facility] Comment on above: Performed By: #### C BC, HCGQNT #### [facility] [address] Platelets [#/volume] in Bloo d by Automated countOrdered By: CHUCK Huitron on 04-30-2023 Platelets (Bld) [#/Vol] 317 10*3/uL Normal 150-450 [facility] Comment on above: Performed By: #### C BC, HCGQNT #### [facility] [address] [place] [address] US transvaginalon 04-30-2023 US transvaginal [facility] Main [facility]oden [address] [place] [address] Ultrasound Report Signed Patient: Sarah Arce MR#: [id number] : 2000 Acct:[id number] Age/Sex: 23 / F ADM Date: 04/29/23 Loc: Room: [address] [place] [address] Type: REG CLI Attending Dr: Dawn Huitron MD Ordering Provider: CHUCK Astorga Date of Service: 04/30/23 US/US pelvic complete: D and C scheduled ([id number]) US/US transvaginal: PRODUCTS OF CONCEPTION WITH PRIOR [...] Usama Peña M.D.04/30/2023 9:37 AM Dictation Location: [place] [address] Tech: Anca Horn Transcribed By: [facility] 04/30/2337 Dictated By: Usama Peña DO 04/30/2333 Signed By: 04/30/23936 Normal [facility] ABO/Rh Retypeon 04-29-2023 ABO/RH Recheck Result Positive Normal [facility] Comment on above: Result Comment: PERF ORMED BY: [place] [address] PATHOLOGIST NAT INSTRUCTOR CHUY PALOMO M.D. Complete Blood Count Auto Di ffon 04-29-2023 Basophils (Bld) [#/Vol] 0.0 10*3/uL Normal 0.0-0.2 [facility] Comment on above: Result Comment: PERF ORMED BY: [place] [address] PATHOLOGIST NAT INSTRUCTOR CHUY PALOMO M.D. Performed By: #### H CGQNT, CBC #### [address] Basophils/100 WBC (Bld) 0.3 % Normal . [facility] Comment on above: Performed By: #### H CGQNT, CBC #### [place] [address] [place] Eosinophils (Bld) [#/Vol] 0.2 10*3/uL Normal 0.0-0.45 [facility] Comment on above: Performed By: #### H CGQNT, CBC #### [place] [address] [place] Eosinophils/100 WBC (Bld) 1.1 % Normal . [facility] Comment on above: Performed By: #### H CGQNT, CBC #### [address] Erythrocyte distribution width (RBC) [Ratio] 13.9 % Normal 11.9-15.3 [facility] Comment on above: Performed By: #### H CGQNT, CBC #### [address] Hematocrit (Bld) [Volume fraction] 39.8 % Normal 34.0-46.4 [facility] Comment on above: Performed By: #### H CGQNT, CBC #### [address] Hemoglobin (Bld) [Mass/Vol] 13.3 g/dL Normal 11.8-15.4 [facility] Comment on above: Performed By: #### H CGQNT, CBC #### [address] Lymphocytes (Bld) [#/Vol] 2.3 10*3/uL Normal 1.00-4.8 [facility] Comment on above: Performed By: #### H CGQNT, CBC #### [address] Lymphocytes/100 WBC (Bld) 17.0 % Normal . [facility] Comment on above: Performed By: #### H CGQNT, CBC #### [address] MCH (RBC) [Entitic mass] 27.0 pg Normal 24.7-34.3 [facility] Comment on above: Performed By: #### H CGQNT, CBC #### [address] MCV (RBC) [Entitic vol] 80.8 fL Normal 80-100 [facility] Comment on above: Performed By: #### H CGQNT, CBC #### [address] Mean Corpuscular HGB Conc 33.5 g/dL Normal 32.0-35.0 [facility] Comment on above: Performed By: #### H CGQNT, CBC #### [address] Monocytes (Bld) [#/Vol] 0.5 10*3/uL Normal 0.0-0.8 [facility] Comment on above: Performed By: #### H CGQNT, CBC #### [address] Monocytes/100 WBC (Bld) 4.0 % Normal . [facility] Comment on above: Performed By: #### H CGQNT, CBC #### [facility] [address] [place] [address] Neutrophils (Bld) [#/Vol] 10.6 10*3/uL High 1.8-7.7 [facility] Comment on above: Performed By: #### H CGQNT, CBC #### [address] Neutrophils/100 WBC (Bld) 77.6 % Normal . [facility] Comment on above: Performed By: #### H CGQNT, CBC #### [address] NRBC% 0.2 /100{WBC} Normal 0-0.5 [facility] Comment on above: Performed By: #### H CGQNT, CBC #### [address] Platelet mean volume (Bld) [Entitic vol] 7.0 fL Normal 6.3-10.7 [facility] Comment on above: Performed By: #### H CGQNT, CBC #### [address] Platelets (Bld) [#/Vol] 369 10*3/uL Normal 150-450 [facility] Comment on above: Performed By: #### H CGQNT, CBC #### [place] [address] [place] RBC (Bld) [#/Vol] 4.93 10*6/uL Normal 3.60-5.00 [facility] Comment on above: Performed By: #### H CGQNT, CBC #### [address] WBC (Bld) [#/Vol] 13.6 10*3/uL High 3.8-11.6 [facility] Comment on above: Performed By: #### H CGQNT, CBC #### [facility] [address] [place] [id number] [place] HCG,Quantitativeon HCG,Quantitative 3230.00 m[iU]/mL Normal [facility] Comment on above: Result Comment: Appr oximate Approximate hCG Gestational Age Range (mIU/ml) (weeks) 0.2-1 5-50 1-2 50-500 2-3 100-5,000 3-4 500-10,000 4-5 1,000-50,000 5-6 10,000-100,000 6-8 15,000-200,000 8-12 10,000-100,000 PERFORMED BY: [place] [address] PATHOLOGIST NAT INSTRUCTOR CHUY PALOMO M.D. Performed By: #### H CGQNT, CBC #### [facility] [address] [place], [place] [id number] [facility] Type and Screenon 04-29-2023 ABO and Rh group Nom (Bld) Blood group A Rh(D) positive Normal [facility] Leif 04-24-2023 L Specimen: [id number] Received: 04/24/23 Status: SOUT Req Num: [id number] Spec Type: Surgical Subm Dr: CHUCK Astorga Tissues: A Products of Conception - Spontaneous or Missed (POC) Procedures: HE/3, Gross/Micro L4 Age/ Patient Sex Location Account Attending Physician Sarah Arce 23/F [place] [id number] CHUCK Astorga SPEC NUM: [id number] RECD: 04/24/23 STATUS: SOUT REQ NUM: [id number] MARY: 04/24/23- SUBM DR: CHUCK Astorga ENTERED: 04/24/[address]: SPEC TYPE: Surgical DEPT: S ENTERED BY: [id number] RECV BY: [id number] ORDERED: HE/3, Gross/Micro L4 ORDERED: RYANJerel, Gross/Micro L4 Pathological Diagnosis Products Of Conception: Immature Chorionic Villi And Tissues, Consistent With Products Of Conception. Clinical Information Retained products of conception Gross Description Received in formalin labeled with the patient's name, date of and products of conception is a 12 x 7 x 2.5 cm aggregate of pink-ajsmine to red-brown soft tissue. Villous tissue and tissue are identified. Among the tissue fragments is a foot length of 0.7 cm from heel-to-toe. [employer] sections are submitted in 3 cassettes as follows: A1-A2 - Villous tissue A3 - tissue CPT Codes 61614 Specimen: [id number] Received: 04/24/23 Status: RUBINA Sharpe Num: [id number] Spec Type: Surgical Subm Dr: Dawn Huitron MD-NOMS Tissues: A Products of Conception - Spontaneous or Missed (POC) Procedures: RYANJerel, Gross/Micro L4 Patient: ArceSarah [id number] (Continued) Signed (signature on file) Tavia Abad MD 04/28/23 2321 Normal [facility] CBC AUTO DIFFon 10-02-2020 BASO # 0.0 103/ul Normal 0.0-0.1 [facility] Comment on above: Performed By: #### U MICRO, UACSIND #### [facility] [address] [place] [address] Vandanadave Jacobson Basophils/100 WBC (Bld) 0.1 % Critically low 0.2-2.0 [facility] Comment on above: Performed By: #### U MICRO, UACSIND #### [facility] [address] [place] [address] Vandana Jacobson EO # 0.0 103/ul Normal 0.0-0.7 [facility] Comment on above: Performed By: #### U MICRO, UACSIND #### [facility] [address] [place] [address] Vandanadave Jacobson Eosinophils/100 WBC (Bld) 0.0 % Critically low 0.9-7.0 [facility] Comment on above: Performed By: #### U MICRO, UACSIND #### [facility] [address] [place] [address] Vandanadave Jacobson Erythrocyte distribution width (RBC) [Ratio] 15.9 % Critically high 11.0-15.0 [facility] Comment on above: Performed By: #### U MICRO, UACSIND #### [facility] [address] [place] [address] Vandanadave Jacobson Hematocrit (Bld) [Volume fraction] 33.3 % Critically low 36.0-48.0 [facility] Comment on above: Performed By: #### U MICRO, UACSIND #### [facility] [address] [place] [address] Vandana Indira Hemoglobin (Bld) [Mass/Vol] 11.2 g/dL Critically low 12.0-16.0 [facility] Comment on above: Performed By: #### U MICRO, UACSIND #### [facility] [address] [place] [address] Vandana Indira IG # 0.07 10e3/ul Critically high 0.00-0.03 [facility] Comment on above: Performed By: #### U MICRO, UACSIND #### [facility] [address] [place] [address] Vandana Indira IG % 0.4 % Normal 0.0-0.5 [facility] Comment on above: Performed By: #### U MICRO, UACSIND #### [facility] [address] [place] [address] Vandana Indira LYMPH # 1.9 103/ul Normal 1.2-3.8 [facility] Comment on above: Performed By: #### U MICRO, UACSIND #### [facility] [address] [place] [address] Vandana Jacobson Lymphocytes/100 WBC (Bld) 11.4 % Critically low 20.5-60.0 [facility] Comment on above: Performed By: #### U MICRO, UACSIND #### [facility] [address] [place] [address] Vandana Jacobson MANUAL DIFF REQ NO Normal [facility] Comment on above: Performed By: #### U MICRO, UACSIND #### [facility] [address] [place] [address] Vandanadave Jacobson MCH (RBC) [Entitic mass] 27.7 pg Normal 26.7-34.0 [facility] Comment on above: Performed By: #### U MICRO, UACSIND #### [facility] [address] [place] [address] Vandanadave Jacobson MCHC (RBC) [Mass/Vol] 33.6 g/dL Normal 29.9-35.2 [facility] Comment on above: Performed By: #### U MICRO, UACSIND #### [facility] [address] [place], [place] [id number] Vandana Jacobson MCV (RBC) [Entitic vol] 82.4 fL Normal 81.0-99.0 [facility] Comment on above: Performed By: #### U MICRO, UACSIND #### [facility] [address] [place] [address] Vandana Jacobson MONO # 1.0 103/ul Critically high 0.3-0.8 [facility] Comment on above: Performed By: #### U MICRO, UACSIND #### [facility] [address] [place] [address] Vandana Jacobson Monocytes/100 WBC (Bld) 6.3 % Normal 1.7-12.0 [facility] Comment on above: Performed By: #### U MICRO, UACSIND #### [facility] [address] [place] [address] Vandana Lien NEUT # 13.4 103/ul Critically high 1.4-6.5 [facility] Comment on above: Performed By: #### U MICRO, UACSIND #### [facility] [address] [place] [address] Vandana Jacobson Neutrophils/100 WBC (Bld) 81.8 % Critically high 43.0-75.0 [facility] Comment on above: Performed By: #### U MICRO, UACSIND #### [facility] [address] [place] [address] Vandana Jacobson Platelet mean volume (Bld) [Entitic vol] 10.3 fL Normal 9.5-13.5 [facility] Comment on above: Performed By: #### U MICRO, UACSIND #### [facility] [address] [place] [address] Vandana Indira PLT 202 103/ul Normal 150-450 [facility] Comment on above: Performed By: #### U MICRO, UACSIND #### [facility] [address] [place] [address] Vandana Jacobson RBC 4.04 106/ul Critically low 4.20-5.40 [facility] Comment on above: Performed By: #### U MICRO, UACSIND #### [facility] [address] [place] [id number] Vandana Jacobson WBC 16.4 103/ul Critically high 4.0-11.0 [facility] Comment on above: Performed By: #### U MICRO, UACSIND #### [facility] Laboratory [address] [id number] Vandana Jacobson ASYMPTOMATIC COVID-19 ANTIGE Non 10-01-2020 EUA Statement SEE BELOW Normal [facility] Comment on above: Result Comment: This test [...] sooner. Performed By: #### C VDAGA #### [facility] [address] [place], [place] [id number] Vandana Jacobson SARS-CoV-2 (COVID-19) RNA RAMA+probe Ql (Unsp spec) Negative Normal NEGATIVE [facility] Comment on above: Result Comment: Nega tive results are presumptive. They do not preclude infection and should not be used as the sole basis for treatment decisions. Additional confirmatory testing by a molecular method should be considered. Performed By: #### C VDAGA #### [facility] [address] [address] Vandana Jacobson CBC AUTO DIFFon 10-01-2020 BASO # 0.0 103/ul Normal 0.0-0.1 [facility] Comment on above: Performed By: #### D RUGRPD #### [facility] [address] [place], [place] [id number] Vandana Indira Basophils/100 WBC (Bld) 0.1 % Critically low 0.2-2.0 [facility] Comment on above: Performed By: #### D RUGRPD #### [facility] [address] [place], [place] [id number] Vandana Indira EO # 0.0 103/ul Normal 0.0-0.7 [facility] Comment on above: Performed By: #### D RUGRPD #### [facility] [address] [place], [place] [id number] Vandana Indira Eosinophils/100 WBC (Bld) 0.1 % Critically low 0.9-7.0 [facility] Comment on above: Performed By: #### D RUGRPD #### [facility] [address] [place], [place] [id number] Vandana Indira Erythrocyte distribution width (RBC) [Ratio] 15.8 % Critically high 11.0-15.0 [facility] Comment on above: Performed By: #### D RUGRPD #### [facility] [address] [place], [place] [id number] Vandana Indira Hematocrit (Bld) [Volume fraction] 40.2 % Normal 36.0-48.0 [facility] Comment on above: Performed By: #### D RUGRPD #### [facility] [address] [place], [place] [id number] Vandana Indira Hemoglobin (Bld) [Mass/Vol] 13.4 g/dL Normal 12.0-16.0 [facility] Comment on above: Performed By: #### D RUGRPD #### [facility] [address] [place], [place] [id number] Vandana Indira IG # 0.04 10e3/ul Critically high 0.00-0.03 [facility] Comment on above: Performed By: #### D RUGRPD #### [facility] [address] [place], [place] [id number] Vandana Indira IG % 0.4 % Normal 0.0-0.5 [facility] Comment on above: Performed By: #### D RUGRPD #### [facility] [address] [place], [place] [id number] Vandana Indira LYMPH # 1.5 103/ul Normal 1.2-3.8 [facility] Comment on above: Performed By: #### D RUGRPD #### [facility] [address] [id number] Vandana Indira Lymphocytes/100 WBC (Bld) 14.7 % Critically low 20.5-60.0 [facility] Comment on above: Performed By: #### D RUGRPD #### [facility] [address] [place], [place] [id number] Vandana Jacobson MANUAL DIFF REQ NO Normal [facility] Comment on above: Performed By: #### D RUGRPD #### [facility] [address] [place], [place] [id number] Vandanadave Jacobson MCH (RBC) [Entitic mass] 27.3 pg Normal 26.7-34.0 [facility] Comment on above: Performed By: #### D RUGRPD #### [facility] [address] [place], [place] [id number] Vandanadave Lien MCHC (RBC) [Mass/Vol] 33.3 g/dL Normal 29.9-35.2 [facility] Comment on above: Performed By: #### D RUGRPD #### [facility] [address] [place], [place] [id number] Vandana Indira MCV (RBC) [Entitic vol] 82.0 fL Normal 81.0-99.0 [facility] Comment on above: Performed By: #### D RUGRPD #### [facility] [address] [place], [place] [id number] Vandana Indira MONO # 0.5 103/ul Normal 0.3-0.8 [facility] Comment on above: Performed By: #### D RUGRPD #### [facility] [address] [id number] Vandanadave Jacobson Monocytes/100 WBC (Bld) 5.2 % Normal 1.7-12.0 [facility] Comment on above: Performed By: #### D RUGRPD #### [facility] [address] [id number] Vandana Jacobson NEUT # 8.1 103/ul Critically high 1.4-6.5 [facility] Comment on above: Performed By: #### D RUGRPD #### [facility] [address] [place], [place] [id number] Vandana Jacobson Neutrophils/100 WBC (Bld) 79.5 % Critically high 43.0-75.0 [facility] Comment on above: Performed By: #### D RUGRPD #### [facility] [address] [place], [place] [id number] Vandana Jacobson Platelet mean volume (Bld) [Entitic vol] 10.6 fL Normal 9.5-13.5 [facility] Comment on above: Performed By: #### D RUGRPD #### [facility] [address] [place], [place] [id number] Vandana Jacobson PLT 256 103/ul Normal 150-450 [facility] Comment on above: Performed By: #### D RUGRPD #### [facility] [address] [place], [place] [id number] Vandanadave Lien RBC 4.90 106/ul Normal 4.20-5.40 [facility] Comment on above: Performed By: #### D RUGRPD #### [facility] [address] [place], [place] [id number] Vandana Jacobson WBC 10.2 103/ul Normal 4.0-11.0 [facility] Comment on above: Performed By: #### D RUGRPD #### [facility] [address] [place] [address] Vandana Indira DRUG SCREEN RAPID (URINE)on 10-01-2020 AMP Negative Normal NEGATIVE [facility] Comment on above: Performed By: #### D RUGRPD #### [facility] [address] [place], [place] [id number] Vandana Jacobson BAR Negative Normal NEGATIVE [facility] Comment on above: Performed By: #### D RUGRPD #### [facility] [address] [place] [address] Vandana Indira BUP Negative Normal NEGATIVE [facility] Comment on above: Performed By: #### D RUGRPD #### [facility] [address] [place] [address] Vandana Indira BZO Negative Normal NEGATIVE [facility] Comment on above: Performed By: #### D RUGRPD #### [facility] [address] [place] [address] Vandana Indira ROLANDA Negative Normal NEGATIVE [facility] Comment on above: Performed By: #### D RUGRPD #### [facility] [address] [place] [address] Vandana Indira CUT-OFFS SEE BELOW Normal [facility] Comment on above: Result Comment: AMP (Amphetamine): 500ng/mL, BAR (Barbituates): 200 ng/mL, BZO (Benzodiazepines): 150 ng/mL, BUP (Buprenorphine): 10 ng/mL, ROLANDA (Cocaine): 150 ng/mL, mAMP (Methamphetamine): 500 ng/mL, MTD (Methadone): 200 ng/mL, OPI (Opiates): 100 ng/mL, OXY (Oxycodone): 100 ng/mL, PCP (Phencyclidine): 25 ng/mL, PPX (Propoxyphene): 300 ng/mL, THC (Cannabinoids): 50 ng/mL, TCA (Trycyclic Antidepressants): 300 ng/mL Performed By: #### D RUGRPD #### [facility] [address] [place] [address] [facility]UG CLASS TEST SYSTEM CUT-OFF CONCENTRATIONS ARE FOLLOWS: Normal [facility] Comment on above: Performed By: #### D RUGRPD #### [facility] [address] [place] [address] Vandana Indira mAMP Negative Normal NEGATIVE [facility] Comment on above: Performed By: #### D RUGRPD #### [facility] [address] [place] [address] Vandana Indira MTD Negative Normal NEGATIVE [facility] Comment on above: Performed By: #### D RUGRPD #### [facility] [address] [address] Vandana Indira OPI Negative Normal NEGATIVE [facility] Comment on above: Performed By: #### D RUGRPD #### [facility] [address] [id number] Vandana Indira OXY Negative Normal NEGATIVE [facility] Comment on above: Performed By: #### D RUGRPD #### [facility] [address] [place] [address] Vandana Indira PCP Negative Normal NEGATIVE [facility] Comment on above: Performed By: #### D RUGRPD #### [facility] [address] [place] [address] Vandana Indira PPX Negative Normal NEGATIVE [facility] Comment on above: Performed By: #### D RUGRPD #### [facility] [address] [place] [address] Vandana Indira TCA Negative Normal NEGATIVE [facility] Comment on above: Performed By: #### D RUGRPD #### [facility] [address] [place] [address] Vandana Indira THC Negative Normal NEGATIVE [facility] Comment on above: Performed By: #### D RUGRPD #### [facility] [address] [place] [address] Vandana Indira TYPE AND SCREENon 10-01-2020 TYPE AND SCREEN Negative Normal [facility] Comment on above: Performed By: #### D RUGRPD #### [facility] [address] [place] [address] Vandana Indira US PREG GROWTHon 09-12-2020 US [...] EFW: 6 lbs. 13 oz., 58% FL/AC: 0.929900 FL/BPD: 0.988034 HC/AC: 0.999363 GESTATIONAL AGE: Age by EDC: 36 weeks 6 days YUE by EDC: 10/04/2020 Age by US: 37 weeks 0 days YUE by US: 10/03/2020 IMPRESSION: Normal interval growth Electronically authenticated by: KECIA LEI Date: 2020-09-12 13:13 Normal [facility] HEMOGLOBINOPATHY FRACTIONATI ON CASCADEon 09-11-2020 HGB A 97.4 % Normal 96.4-98.8 [facility] Comment on above: Performed By: #### U MICRO, UACSIND #### [facility] [address] [place] [address] Vandana Indira HGB A2 2.6 % Normal 1.8-3.2 [facility] Comment on above: Performed By: #### U MICRO, UACSIND #### [facility] [address] [place] [address] Vandana Indria HGB F 0.0 % Normal 0.0-2.0 [facility] Comment on above: Performed By: #### U MICRO, UACSIND #### [facility] [address] [place] [address] Vandanadave Jacobson HGB S 0.0 % Normal 0.0 [facility] Comment on above: Performed By: #### U MICRO, UACSIND #### [facility] [address] [address] Vandana Indira Interpretation: Comment Normal [facility] Comment on above: Result Comment: Norm al hemoglobin present; no hemoglobin variant or thalassemia observed. Performed By: #### U MICRO, UACSIND #### [facility] [address] [place] [address] Vandana Indira CBC AUTO DIFFon 09-10-2020 BASO # 0.0 103/ul Normal 0.0-0.1 [facility] Comment on above: Performed By: #### C BC #### [facility] [address] [id number] Vandana Indira Basophils/100 WBC (Bld) 0.1 % Critically low 0.2-2.0 [facility] Comment on above: Performed By: #### C BC #### [facility] [address] [id number] Vandana Indira EO # 0.0 103/ul Normal 0.0-0.7 [facility] Comment on above: Performed By: #### C BC #### [facility] [address] [id number] Vandana Indira Eosinophils/100 WBC (Bld) 0.4 % Critically low 0.9-7.0 [facility] Comment on above: Performed By: #### C BC #### [facility] [address] [place] [address] Vandana Indira Erythrocyte distribution width (RBC) [Ratio] 16.0 % Critically high 11.0-15.0 [facility] Comment on above: Performed By: #### C BC #### [facility] [address] [place], [place] [id number] Vandana Indira Hematocrit (Bld) [Volume fraction] 36.5 % Normal 36.0-48.0 [facility] Comment on above: Performed By: #### C BC #### [facility] [address] [place], [place] [id number] Vandana Indira Hemoglobin (Bld) [Mass/Vol] 12.2 g/dL Normal 12.0-16.0 [facility] Comment on above: Performed By: #### C BC #### [facility] [address] [place] [address] Vandana Indira IG # 0.07 10e3/ul Critically high 0.00-0.03 [facility] Comment on above: Performed By: #### C BC #### [facility] [address] [place], [place] [id number] Vandana Indira IG % 0.9 % Critically high 0.0-0.5 [facility] Comment on above: Performed By: #### C BC #### [facility] [address] [place], [place] [id number] Vandana Indira LYMPH # 1.9 103/ul Normal 1.2-3.8 [facility] Comment on above: Performed By: #### C BC #### [facility] [address] [place], [place] [id number] Vandana Indira Lymphocytes/100 WBC (Bld) 23.7 % Normal 20.5-60.0 [facility] Comment on above: Performed By: #### C BC #### [facility] [address] [place] [address] Vandana Indira MANUAL DIFF REQ NO Normal [facility] Comment on above: Performed By: #### C BC #### [facility] [address] [place] [address] Vandanadave Lien MCH (RBC) [Entitic mass] 27.4 pg Normal 26.7-34.0 [facility] Comment on above: Performed By: #### C BC #### [facility] [address] [place] [address] Vandanadave Jacobson MCHC (RBC) [Mass/Vol] 33.4 g/dL Normal 29.9-35.2 [facility] Comment on above: Performed By: #### C BC #### [facility] [address] [place] [address] Vandanadave Jacobson MCV (RBC) [Entitic vol] 82.0 fL Normal 81.0-99.0 [facility] Comment on above: Performed By: #### C BC #### [facility] [address] [place] [address] Vandana Indira MONO # 0.7 103/ul Normal 0.3-0.8 [facility] Comment on above: Performed By: #### C BC #### [facility] [address] [place] [address] Vandana Indira Monocytes/100 WBC (Bld) 8.8 % Normal 1.7-12.0 [facility] Comment on above: Performed By: #### C BC #### [facility] [address] [place] [address] Vandana Indira NEUT # 5.3 103/ul Normal 1.4-6.5 [facility] Comment on above: Performed By: #### C BC #### [facility] [address] [place] [address] Vandana Jacobson Neutrophils/100 WBC (Bld) 66.1 % Normal 43.0-75.0 [facility] Comment on above: Performed By: #### C BC #### [facility] [address] [place] [address] Vandana Jacobson Platelet mean volume (Bld) [Entitic vol] 11.6 fL Normal 9.5-13.5 [facility] Comment on above: Performed By: #### C BC #### [facility] [address] [place] [address] Vandana Indira PLT 221 103/ul Normal 150-450 [facility] Comment on above: Performed By: #### C BC #### [facility] [address] [place] [address] Vandana Indira RBC 4.45 106/ul Normal 4.20-5.40 [facility] Comment on above: Performed By: #### C BC #### [facility] [address] [place] [address] Vandana Indira WBC 8.1 103/ul Normal 4.0-11.0 [facility] Comment on above: Performed By: #### C BC #### [facility] [address] [place] [address] Vandana Jacobson VAGINITIS/VAGINOSIS DNA PROB Miller 09-08-2020 Antonino species Negative Normal Negative [facility] Comment on above: Performed By: #### V AGINT #### [facility] [address] [place] [address] Vandana Indira Gardnerella vaginalis Negative Normal Negative [facility] Comment on above: Performed By: #### V AGINT #### [facility] [address] [place] [address] Vandana Indira Trichomonas vaginalis Negative Normal Negative [facility] Comment on above: Performed By: #### V AGINT #### [facility] [address] [place] [address] Vandanadave Jacobson CHLAMYDIA/GONOCOCCUS RAMA (SW AB/URINE/PAPon 09-07-2020 Chlamydia trachomatis, RAMA Negative Normal Negative [facility] Comment on above: Performed By: #### D RUGRPD #### [facility] [address] [place] [address] Vandanadave Jacobson Neisseria gonorrhoeae, RAMA Negative Normal Negative [facility] Comment on above: Performed By: #### D RUGRPD #### [facility] [address] [place] [address] Vandana Jacobson GROUP B STREP CULTUREon 07-0 S. agalactiae Ag Ql (Unsp spec) Culture Observations: NEGATIVE FOR GROUP B STREPTOCOCCUS. Normal [facility] Comment on above: Performed By: #### D RUGRPD #### [facility] [address] [place] [address] Vandana Jacobson CULTURE URINEon 08-31-2020 CULTURE URINE Culture Observations: LIGHT GROWTH OF MIXED GENITAL TEDDY. NO POTENTIAL PATHOGENS SEEN. Normal [facility] Comment on above: Performed By: #### D RUGRPD #### [facility] [address] [place] [address] Vandana Indira UA (CLEAN/CATCH) OXYGEN EQUIPMENT PREPARER/MICRO I F IND.on 08-31-2020 Bilirubin Ql (U) Negative Normal NEGATIVE [facility] Comment on above: Performed By: #### U MICRO, UACSIND #### [facility] [address] [place] [address] Vandana Indira Clarity (U) SL CLOUDY Abnormal CLEAR [facility] Comment on above: Performed By: #### U MICRO, UACSIND #### [facility] [address] [place] [address] Vandana Indira Color (U) LT. YELLOW Normal YELLOW [facility] Comment on above: Performed By: #### U MICRO, UACSIND #### [facility] [address] [place] [address] Vandana Indira Glucose Ql (U) Negative Normal NEGATIVE [facility] Comment on above: Performed By: #### U MICRO, UACSIND #### [facility] [address] [place] [address] Vandana Indira Hemoglobin Ql (U) Negative Normal NEGATIVE [facility] Comment on above: Performed By: #### U MICRO, UACSIND #### [facility] [address] [place] [address] Vandana Indira Ketones Ql (U) 15 mg/dl Abnormal NEGATIVE [facility] Comment on above: Performed By: #### U MICRO, UACSIND #### [facility] [address] [place] [address] Vandana Indira LEUKOCYTES SMALL Abnormal NEGATIVE [facility] Comment on above: Performed By: #### U MICRO, UACSIND #### [facility] [address] [place] [address] Vandana Indira Nitrite Ql (U) Negative Normal NEGATIVE [facility] Comment on above: Performed By: #### U MICRO, UACSIND #### [facility] [address] [place] [address] Vandana Indira pH (U) 7.0 [pH] Normal 5-9 [facility] Comment on above: Performed By: #### U MICRO, UACSIND #### [facility] [address] [place] [address] Vandana Indira SPEC GRAVITY 1.015 Normal 1.005-<=1.025 [facility] Comment on above: Performed By: #### U MICRO, UACSIND #### [facility] [address] [place] [address] Vandana Indira UA PROTEIN Negative Normal NEGATIVE/ TRACE [facility] Comment on above: Performed By: #### U MICRO, UACSIND #### [facility] [address] [place] [address] Vandana Indira UR MICRO IND INDICATED Normal [facility] Comment on above: Performed By: #### U MICRO, UACSIND #### [facility] [address] [place] [address] Vandana Indira Urobilinogen Qn (U) 0.2 {Richard'U}/dL Normal 0.2 - 1. 0 [facility] Comment on above: Performed By: #### U MICRO, UACSIND #### [facility] [address] [id number] Vandana Indira URINE MICROSCOPIC ONLYon BACTERIA SMALL Abnormal NONE SEEN [facility] Comment on above: Performed By: #### U MICRO, UACSIND #### [facility] [address] [address] Vandana Indira Bacteria identified Cx Nom (U) INDICATED Normal [facility] Comment on above: Performed By: #### U MICRO, UACSIND #### [facility] [address] [address] Vandana Indira CAST NONE SEEN Normal NONE SEEN [facility] Comment on above: Performed By: #### U MICRO, UACSIND #### [facility] [address] [place] [address] Vandana Indira Crystals LM Nom (Urine sed) NONE SEEN Normal NONE SEEN [facility] Comment on above: Performed By: #### U MICRO, UACSIND #### [facility] [address] [place] [address] Vandana Indira Epithelial cells LM Ql (Urine sed) MODERATE Abnormal NONE SEEN /RARE [facility] Comment on above: Performed By: #### U MICRO, UACSIND #### [facility] [address] [place] [address] Vandana Indira MUCOUS NONE SEEN Normal NONE SEEN [facility] Comment on above: Performed By: #### U MICRO, UACSIND #### [facility] [address] [address] Vandana Indira RBC NONE SEEN Abnormal 0-2 [facility] Comment on above: Performed By: #### U MICRO, UACSIND #### [facility] [address] [address] Vandana Indira WBC NONE SEEN Normal NONE SEEN [facility] Comment on above: Performed By: #### U MICRO, UACSIND #### [facility] [address] [address] Vandana Indira CULTURE URINEon 08-01-2020 CULTURE URINE Culture Observations: LIGHT GROWTH OF MIXED GENITAL TEDDY. NO POTENTIAL PATHOGENS SEEN. Normal [facility] Comment on above: Performed By: #### U RCX #### [facility] [address] [place] [address] Vandana Indira UA RANDOM W/MICROSCOPICon BACTERIA TRACE Abnormal NONE SEEN [facility] Comment on above: Performed By: #### U AMIC #### [facility] [address] [place] [address] Vandana Indira Bilirubin Ql (U) Negative Normal NEGATIVE [facility] Comment on above: Performed By: #### U AMIC #### [facility] [address] [place] [address] Vandana Indira CAST NONE SEEN Normal NONE SEEN [facility] Comment on above: Performed By: #### U AMIC #### [facility] [address] [place] [address] Vandana Indira Clarity (U) CLEAR Normal CLEAR [facility] Comment on above: Performed By: #### U AMIC #### [facility] [address] [place] [address] Vanadna Indira Color (U) LT. YELLOW Normal YELLOW [facility] Comment on above: Performed By: #### U AMIC #### [facility] [address] [place] [address] Vandana Indira Crystals LM Nom (Urine sed) NONE SEEN Normal NONE SEEN [facility] Comment on above: Performed By: #### U AMIC #### [facility] [address] [place] [address] Vandana Indira Epithelial cells LM Ql (Urine sed) FEW Abnormal NONE SEEN /RARE [facility] Comment on above: Performed By: #### U AMIC #### [facility] [address] [place] [address] Vandana Indira Glucose Ql (U) Negative Normal NEGATIVE [facility] Comment on above: Performed By: #### U AMIC #### [facility] [address] [place] [address] Vandana Indira Hemoglobin Ql (U) Negative Normal NEGATIVE [facility] Comment on above: Performed By: #### U AMIC #### [facility] [address] [place] [address] Vandana Indira Ketones Ql (U) Negative Normal NEGATIVE [facility] Comment on above: Performed By: #### U AMIC #### [facility] [address] [address] Vandana Indira LEUKOCYTES Negative Normal NEGATIVE [facility] Comment on above: Performed By: #### U AMIC #### [facility] [address] [address] Vandana Indira MUCOUS NONE SEEN Normal NONE SEEN [facility] Comment on above: Performed By: #### U AMIC #### [facility] [address] [place] [address] Vandana Indira Nitrite Ql (U) Negative Normal NEGATIVE [facility] Comment on above: Performed By: #### U AMIC #### [facility] [address] [place] [address] Vandana Indira pH (U) 7.5 [pH] Normal 5-9 [facility] Comment on above: Performed By: #### U AMIC #### [facility] [address] [place] [address] Vandana Indira RBC 0-2 Normal 0-2 [facility] Comment on above: Performed By: #### U AMIC #### [facility] [address] [place] [address] Vandana Indira SPEC GRAVITY 1.015 Normal 1.005-<=1.025 The [facility] Comment on above: Performed By: #### U AMIC #### [facility] [address] [place] [address] Vandana Indira UA PROTEIN Negative Normal NEGATIVE/ TRACE [facility] Comment on above: Performed By: #### U AMIC #### [facility] [address] [place] [address] Vandana Indira Urobilinogen Qn (U) 0.2 {Richard'U}/dL Normal 0.2 - 1. 0 [facility] Comment on above: Performed By: #### U AMIC #### [facility] [address] [place], [place] [id number] Vandana Indira WBC 0-2 Abnormal NONE SEEN [facility] Comment on above: Performed By: #### U AMIC #### [facility] [address] [place], [place] [id number] Vandana Indira CBC AUTO DIFFon 12-17-2019 BASO # 0.0 103/ul Normal 0.0-0.1 [facility] Comment on above: Performed By: #### C BC #### [facility] [address] [place], [place] [id number] Vandana Indira Basophils/100 WBC (Bld) 0.1 % Critically low 0.2-2.0 [facility] Comment on above: Performed By: #### C BC #### [facility] [address] [place], [place] [id number] Vandana Indira EO # 0.1 103/ul Normal 0.0-0.7 [facility] Comment on above: Performed By: #### C BC #### [facility] [address] [place], [place] [id number] Vandana Indira Eosinophils/100 WBC (Bld) 0.9 % Normal 0.9-7.0 [facility] Comment on above: Performed By: #### C BC #### [facility] [address] [place], [place] [id number] Vandana Indira Erythrocyte distribution width (RBC) [Ratio] 14.3 % Normal 11.0-15.0 [facility] Comment on above: Performed By: #### C BC #### [facility] [address] [place], [place] [id number] Vandana Indira Hematocrit (Bld) [Volume fraction] 40.5 % Normal 36.0-48.0 [facility] Comment on above: Performed By: #### C BC #### [facility] [address] [place], [place] [id number] Vandana Indira Hemoglobin (Bld) [Mass/Vol] 13.2 g/dL Normal 12.0-16.0 [facility] Comment on above: Performed By: #### C BC #### [facility] [address] [address] Vandanadave Jacobson IG # 0.01 10e3/ul Normal 0.00-0.03 [facility] Comment on above: Performed By: #### C BC #### [facility] [address] [place] [address] Vandanadave Jacobson IG % 0.1 % Normal 0.0-0.5 [facility] Comment on above: Performed By: #### C BC #### [facility] [address] [place] [address] Vandana Indira LYMPH # 2.0 103/ul Normal 1.2-3.8 [facility] Comment on above: Performed By: #### C BC #### [facility] [address] [place] [address] Vandana Jacobson Lymphocytes/100 WBC (Bld) 27.9 % Normal 20.5-60.0 [facility] Comment on above: Performed By: #### C BC #### [facility] [address] [place] [address] Vandana Jacobson MANUAL DIFF REQ NO Normal [facility] Comment on above: Performed By: #### C BC #### [facility] [address] [place] [address] Vandana Jacobson MCH (RBC) [Entitic mass] 25.7 pg Critically low 26.7-34.0 [facility] Comment on above: Performed By: #### C BC #### [facility] [address] [place] [address] Vandana Jacobson MCHC (RBC) [Mass/Vol] 32.6 g/dL Normal 29.9-35.2 [facility] Comment on above: Performed By: #### C BC #### [facility] [address] [place] [address] Vandanadave Jacobson MCV (RBC) [Entitic vol] 78.9 fL Critically low 81.0-99.0 [facility] Comment on above: Performed By: #### C BC #### [facility] [address] [place] [address] Vandana Indira MONO # 0.5 103/ul Normal 0.3-0.8 [facility] Comment on above: Performed By: #### C BC #### [facility] [address] [place], [place] [id number] Vandana Jacobson Monocytes/100 WBC (Bld) 7.0 % Normal 1.7-12.0 [facility] Comment on above: Performed By: #### C BC #### [facility] [address] [place], [place] [id number] Vandana Jacobson NEUT # 4.5 103/ul Normal 1.4-6.5 [facility] Comment on above: Performed By: #### C BC #### [facility] [address] [place], [place] [id number] Vandana Jacobson Neutrophils/100 WBC (Bld) 64.0 % Normal 43.0-75.0 [facility] Comment on above: Performed By: #### C BC #### [facility] [address] [place], [place] [id number] Vandana Jacobson Platelet mean volume (Bld) [Entitic vol] 8.9 fL Critically low 9.5-13.5 [facility] Comment on above: Performed By: #### C BC #### [facility] [address] [place], [place] [id number] Vandanadave Lien PLT 345 103/ul Normal 150-450 [facility] Comment on above: Performed By: #### C BC #### [facility] [address] [place], [place] [id number] Vandanadave Lien RBC 5.13 106/ul Normal 4.20-5.40 [facility] Comment on above: Performed By: #### C BC #### [facility] [address] [place], [place] [id number] Vandanadave Jacobson WBC 7.1 103/ul Normal 4.0-11.0 [facility] Comment on above: Performed By: #### C BC #### [facility] [address] [place], [place] [id number] Vandana Jacobson FERRITINon 12-17-2019 Ferritin [Mass/Vol] 27.0 ng/mL Normal 6.2-137.0 [facility] Comment on above: Performed By: #### D JESID #### [facility] [address] [place] [address] Vandana Jacobson IRONon 12-17-2019 Iron [Mass/Vol] 35.0 ug/dL Critically low 37.0-170.0 [facility] Comment on above: Performed By: #### D JESID #### [facility] [address] [place], [place] [id number] Vandana Jacobson PROF 14(COMP METB)on 020 Albumin [Mass/Vol] 3.7 g/dL Normal 3.5-5.0 [facility] Comment on above: Performed By: #### C MP #### [facility] [address] [place], [place] [id number] Vandanadave Jacosbon Albumin/Globulin [Mass ratio] 0.9 {ratio} Normal [facility] Comment on above: Performed By: #### C MP #### [facility] [address] [place], [place] [id number] Vandana Indira ALP [Catalytic activity/Vol] 82 U/L Normal 38-126 [facility] Comment on above: Performed By: #### C MP #### [facility] [address] [place], [place] [id number] Vandana Indira ALT [Catalytic activity/Vol] 21 U/L Normal 9-52 [facility] Comment on above: Performed By: #### C MP #### [facility] [address] [place], [place] [id number] Vandana Indira Anion gap [Moles/Vol] 12.5 mmol/L Normal [facility] Comment on above: Performed By: #### C MP #### [facility] [address] [place], [place] [id number] Vandana Indira AST [Catalytic activity/Vol] 15 U/L Normal 14-36 [facility] Comment on above: Performed By: #### C MP #### [facility] [address] [place], [place] [id number] Vandana Indira Bilirubin [Mass/Vol] 0.3 mg/dL Normal 0.2-1.3 [facility] Comment on above: Performed By: #### C MP #### [facility] [address] [address] Vandana Indira Calcium [Mass/Vol] 9.5 mg/dL Normal 8.4-10.2 [facility] Comment on above: Performed By: #### C MP #### [facility] [address] [address] Vandana Indira Chloride [Moles/Vol] 104 mmol/L Normal 98-107 [facility] Comment on above: Performed By: #### C MP #### [facility] [address] [address] Vandana Indira CO2 [Moles/Vol] 28.4 mmol/L Normal 22.0-30.0 [facility] Comment on above: Performed By: #### C MP #### [facility] [address] [address] Vandana Indira Creatinine [Mass/Vol] 0.69 mg/dL Normal 0.52-1.04 [facility] Comment on above: Performed By: #### C MP #### [facility] [address] [id number] Vandana Indira EGFR-AF HAITIAN >60 Normal >=60 [facility] Comment on above: Performed By: #### C MP #### [facility] [address] [id number] Vandana Indira EGFR-NON AF HAITIAN >60 Normal >=60 [facility] Comment on above: Performed By: #### C MP #### [facility] [address] [id number] Vandana Indira Globulin (S) [Mass/Vol] 4.1 g/dL Normal [facility] Comment on above: Performed By: #### C MP #### [facility] [address] [id number] Vandana Indira Glucose [Mass/Vol] 94 mg/dL Normal 74-106 [facility] Comment on above: Performed By: #### C MP #### [facility] [address] [address] Vandana Indira Potassium [Moles/Vol] 3.9 mmol/L Normal 3.4-5.0 [facility] Comment on above: Performed By: #### C MP #### [facility] [address] [address] Vandanadave Jacobson Protein [Mass/Vol] 7.8 g/dL Normal 6.1-8.2 [facility] Comment on above: Performed By: #### C MP #### [facility] [address] [address] Vandanadave Jacobson Sodium [Moles/Vol] 141 mmol/L Normal 137-145 [facility] Comment on above: Performed By: #### C MP #### [facility] [address] [place] [address] Vandanadave Jacobson Urea nitrogen [Mass/Vol] 16.0 mg/dL Normal 7.0-17.0 [facility] Comment on above: Performed By: #### C MP #### [facility] [address] [place] [address] Vandana Jacobson Urea nitrogen/Creatinine [Mass ratio] 23.2 mg/mg Normal [facility] Comment on above: Performed By: #### C MP #### [facility] [address] [place] [address] Vandanadave Lien PROTIMEon 12-17-2019 INR Coag (PPP) [Relative time] 0.97 {INR} Normal [facility] Comment on above: Performed By: #### D RUGRPD #### [facility] [address] [place] [address] Vandana Jacobson INR GUIDELINES SEE BELOW Normal [facility] Comment on above: Result Comment: ABHIJIT RED INR: 2.0 - 3.0 CONDITIONS NOT LISTED BELOW 2.5 - 3.5 FOR PROSTHETIC HEART VALVE REPLACEMENT 2.5 - 3.5 RECURRENT THROMBOSIS Performed By: #### D RUGRPD #### [facility] [address] [place] [address] Vandana Jacobson PT Coag (PPP) [Time] 10.3 s Normal 9.0-11.6 [facility] Comment on above: Performed By: #### D RUGRPD #### [facility] [address] [place], [place] [address] Vandana Indira PT NORMAL PLEASE NOTE: NORMAL RANGE CHANGE 11-24-2013 DUE TO REAGENT LOT CHANGE Normal [facility] Comment on above: Performed By: #### D RUGRPD #### [facility] [address] [place], [place] [address] Vandana Jacobson PTTon 12-17-2019 aPTT Coag (Bld) [Time] 30.7 s Normal 22.3-36.2 [facility] Comment on above: Performed By: #### D RUGRPD #### [facility] [address] [place], [place] [address] Vandana Indira PTT NORMAL PLEASE NOTE: NORMAL RANGE CHANGE 01-31-2015 DUE TO REAGENT LOT CHANGE [facility] Comment on above: Performed By: #### D RUGRPD #### [facility] [address] [place], [place] [address] Vandana Indira Vital Signs Date Time Vital Sign Value Performing Clinician Facility 07-20-2024 09:34-0400 Body mass index (BMI) [Ratio] 32.52 kg/m2 Yris Castellanos TRAINING AND DEVELOPMENT COORDINATOR Work Phone: [facility] 07-20-2024 09:34-0400 Body weight 73.03 kg Yris Castellanos TRAINING AND DEVELOPMENT COORDINATOR Work Phone: [facility] 07-20-2024 09:34-0400 Diastolic blood pressure 72 mm[Hg] Yris Castellanos TRAINING AND DEVELOPMENT COORDINATOR Work Phone: [facility] 07-20-2024 09:34-0400 Systolic blood pressure 118 mm[Hg] Yris Castellanos TRAINING AND DEVELOPMENT COORDINATOR Work Phone: [facility] 06-06-2024 11:33-0400 Body mass index (BMI) [Ratio] 31.67 kg/m2 Sarah NGUYEN Work Phone: [facility] 06-06-2024 11:33-0400 Body weight 71.12 kg Sarah NGUYEN Work Phone: [facility] 06-06-2024 11:33-0400 Diastolic blood pressure 70 mm[Hg] Sarah NGUYEN Work Phone: [facility] 06-06-2024 11:33-0400 Systolic blood pressure 120 mm[Hg] Sarah NGUYEN Work Phone: [facility] 05-09-2024 10:21-0500 Body mass index (BMI) [Ratio] 31.99 kg/m2 Newton Raul DO Work Phone: [facility] 05-09-2024 10:21-0500 Body weight 71.85 kg Newton Raul DO Work Phone: [facility] 05-09-2024 10:21-0500 Diastolic blood pressure 76 mm[Hg] Newton Raul DO Work Phone: [facility] 05-09-2024 10:21-0500 Systolic blood pressure 122 mm[Hg] Newton Raul DO Work Phone: [facility] 04-07-2024 13:43-0500 Body mass index (BMI) [Ratio] 32.52 kg/m2 Nom Nurse [facility] 04-07-2024 13:43-0500 Body weight 73.[address] [facility] Nurse [facility] 04-07-2024 13:43-0500 Diastolic blood pressure 72 mm[Hg] [facility] Nurse [facility] 04-07-2024 13:43-0500 Systolic blood pressure 118 mm[Hg] [facility] Nurse [facility] 01-06-2024 10:50-0400 Body height 149.9 cm Sarah NGUYEN Work Phone: [facility] 01-06-2024 10:50-0400 Body mass index (BMI) [Ratio] 32.47 kg/m2 Sarah NGUYEN Work Phone: [facility] 01-06-2024 10:50-0400 Body weight 72.92 kg Sarah NGUYEN Work Phone: [facility] 01-06-2024 10:50-0400 Diastolic blood pressure 78 mm[Hg] Sarah NGUYEN Work Phone: [facility] 01-06-2024 10:50-0400 Systolic blood pressure 118 mm[Hg] Sarah NGUYEN Work Phone: [facility] 04-30-2023 10:23-0500 Diastolic blood pressure 84 mm[Hg] PHYSICIAN NO [facility] 04-30-2023 10:23-0500 Heart rate 67 /min PHYSICIAN NO [facility] 04-30-2023 10:23-0500 Respiratory rate 18 /min PHYSICIAN NO [facility] 04-30-2023 10:23-0500 SaO2% (BldA) [Mass fraction] 99 % PHYSICIAN NO [facility] 04-30-2023 10:23-0500 Systolic blood pressure 130 mm[Hg] PHYSICIAN NO [facility] 04-30-2023 08:53-0500 Body temperature 98.3 [degF] PHYSICIAN NO [facility] 04-30-2023 08:12-0500 Inhaled oxygen flow rate 8 L/min PHYSICIAN NO [facility] 04-30-2023 07:44-0500 Body height 152.4 cm PHYSICIAN NO [facility] 04-30-2023 07:44-0500 Body mass index (BMI) [Ratio] 28.7 kg/m2 PHYSICIAN NO [facility] 04-30-2023 07:44-0500 Body weight 66.67 kg PHYSICIAN NO [facility] 04-24-2023 11:55-0500 Diastolic blood pressure 86 mm[Hg] PHYSICIAN NO [facility] 04-24-2023 11:55-0500 Heart rate 65 /min PHYSICIAN NO [facility] 04-24-2023 11:55-0500 Respiratory rate 16 /min PHYSICIAN NO [facility] 04-24-2023 11:55-0500 SaO2% (BldA) [Mass fraction] 100 % PHYSICIAN NO [facility] 04-24-2023 11:55-0500 Systolic blood pressure 119 mm[Hg] PHYSICIAN NO [facility] 04-24-2023 11:07-0500 Body temperature 98 [degF] PHYSICIAN NO [facility] 04-24-2023 10:42-0500 Inhaled oxygen flow rate 8 L/min PHYSICIAN NO [facility] 04-24-2023 08:52-0500 Body height 152.4 cm PHYSICIAN NO [facility] 04-24-2023 08:52-0500 Body mass index (BMI) [Ratio] 29 kg/m2 PHYSICIAN NO [facility] 04-24-2023 08:52-0500 Body weight 67.58 kg PHYSICIAN NO [facility] 04-20-2023 08:56-0500 Body mass index (BMI) [Ratio] 30.09 kg/m2 Dawn Huitron MD Work Phone: [facility] 04-20-2023 08:56-0500 Body weight 67.59 kg Dawn Huitron MD Work Phone: [facility] 04-20-2023 08:56-0500 Diastolic blood pressure 66 mm[Hg] Dawn Huitron MD Work Phone: [facility] 04-20-2023 08:56-0500 Systolic blood pressure 110 mm[Hg] Dawn Huitron MD Work Phone: [facility] Healthcare Encounters Encounter Date Encounter Type Care Provider Facility Start: 07-20-2024 End: 07-20-2024 Bamboo flowsheet Yris Castellanos TRAINING AND DEVELOPMENT COORDINATOR Work Phone: [facility] Start: 07-20-2024 End: 07-20-2024 Bamboo flowsheet Yris Castellanos TRAINING AND DEVELOPMENT COORDINATOR Work Phone: [facility] Start: 07-20-2024 End: 07-20-2024 flow sheet Yris Castellanos TRAINING AND DEVELOPMENT COORDINATOR Work Phone: [facility] Comment on above: Second trimester pre gnancy; 22 weeks gestation of ; Encounter for screening for cervical length Start: 07-20-2024 End: 07-20-2024 ambulatory YRIS CASTELLANOS Not Available Start: 07-06-2024 End: 07-06-2024 Clinisync Result Encounter Generic External Data Provider [facility] External Department Unsolicited Start: 07-06-2024 End: 07-06-2024 Clinisync Result Encounter Generic External Data Provider [facility] External Department Unsolicited Start: 06-07-2024 End: 06-07-2024 Clinisync Result Encounter Newton Raul DO Work Phone: [facility] External [facility] Unsolicited Start: 06-07-2024 End: 06-07-2024 Clinisync Result Encounter Newton Raul DO Work Phone: [facility] Unsolicited Start: 06-06-2024 End: 06-06-2024 Bamboo flowsheet Sarah NGUYEN Work Phone: [facility] Start: 06-06-2024 End: 06-10-2024 Bamboo flowsheet Sarah NGUYEN Work Phone: [facility] Start: 06-06-2024 End: 06-10-2024 Clinisync Result Encounter Sarah NGUYEN Work Phone: [facility] Unsolicited Start: 06-06-2024 End: 06-07-2024 External Result Encounter Sarah NGUYEN Work Phone: [facility] Unsolicited Start: 06-06-2024 End: 06-06-2024 Patient encounter procedure Sarah NGUYEN Work Phone: [facility] Healthcare Start: 06-06-2024 End: 06-06-2024 Periodic preventive med est patient 18-39 yrs Sarah NGUYEN Work Phone: [facility] Comment on above: 16 weeks gestation o f ; Second trimester ; Screening, , for anatomic survey; Exposure to STD; Vaginal discharge; Well woman exam with routine gynecological exam Start: 06-06-2024 End: 06-06-2024 ambulatory SARAH KERN Not Available Start: 05-09-2024 End: 05-09-2024 Bamboo flowsheet Newton Raul DO Work Phone: [facility] Start: 05-09-2024 End: 05-09-2024 Bamboo flowsheet Newton Raul DO Work Phone: [facility] Start: 05-09-2024 End: 05-09-2024 Clinisync Result Encounter Newton Raul DO Work Phone: [facility] External Department Unsolicited Start: 05-09-2024 End: 05-09-2024 flow sheet Newton Raul DO Work Phone: [facility] Comment on above: First trimester preg ayanna; 12 weeks gestation of ; Insulin resistance complicating Start: 05-09-2024 End: 05-09-2024 ambulatory NEWTON RAUL Not Available Start: 04-07-2024 End: 04-07-2024 Office outpatient visit 5 minutes [facility] Ra[facility] Nurse [facility] Comment on above: GA: 7w3d Start: 04-07-2024 End: 04-07-2024 ambulatory YRIS CASTELLANOS Not Available Start: 01-06-2024 End: 01-06-2024 Bamboo flowsheet Sarah NGUYEN Work Phone: [facility] Start: 01-06-2024 End: 01-06-2024 Bamboo flowsheet Sarah NGUYEN Work Phone: [facility] Start: 01-06-2024 End: 01-06-2024 Postop [...] Start: 11-13-2023 End: 11-13-2023 ambulatory PHYSICIAN NO [facility] Work Phone: Start: 11-13-2023 End: 11-13-2023 Departed Referred PHYSICIAN NO [facility] Work Phone: Start: 11-12-2023 End: 11-12-2023 Clinisync Result Encounter Newton Raul DO Work Phone: [facility] External [facility] Unsolicited Start: 11-12-2023 End: 11-12-2023 Clinisync Result Encounter Newton Raul DO Work Phone: [facility] Unsolicited Start: 04-29-2023 End: 04-30-2023 Patient encounter procedure PHYSICIAN NO [facility] Start: 04-29-2023 End: 04-30-2023 ambulatory PHYSICIAN NO [facility] Work Phone: Start: 04-24-2023 End: 04-24-2023 Admission to same day surgery center PHYSICIAN NO [facility] Start: 04-24-2023 End: 04-24-2023 ambulatory PHYSICIAN ALICJA [facility] Work Phone: Start: 04-20-2023 End: 04-20-2023 Office outpatient visit 10 minutes Dawn Huitron MD Work Phone: [facility] Comment on above: Missed ; Bleeding in early ; Vaginal discharge Start: 04-12-2023 Chart abstracting Dawn galicia MD Work Phone: [facility] Start: 10-08-2020 End: 10-08-2020 ambulatory KOFI CURRIE Facility:[facility] Start: 10-03-2020 ambulatory KOFI CURRIE Facility:H 1 Start: 10-01-2020 End: 10-03-2020 Evaluation and management of inpatient DR TAE BURK Facility:[facility] Start: 09-12-2020 End: 09-13-2020 ambulatory BELT SANDER ALINA AICMarisolBALJINDERZ Facility:[facility]1 Start: 09-10-2020 End: 09-11-2020 ambulatory KOFI CURRIE Facility:[facility] Start: 09-06-2020 End: 09-06-2020 ambulatory BELT SANDER ALINA AICCAROLINAZ Facility:[facility]1 Start: 08-31-2020 End: 08-31-2020 ambulatory BELT SANDER ALINA AICHHOLZ Facility:[facility]1 Start: 08-01-2020 End: 08-01-2020 ambulatory BELT SANDER ALINA AICHHOLZ Facility:[facility]1 Start: 12-17-2019 End: 12-18-2019 ambulatory BELT SANDER ALINA AICHHOLZ Facility:[facility]1 Procedures Date Procedure Procedure Detail Performing Clinician Start: 07-20-2024 Urnls dip stick/tabl et rgnt non-auto w/o micrscp Yris Castellanos NP Work Phone: Start: 07-06-2024 US OB ANATOMY Generic E xternal Data Provider Start: 07-06-2024 US OB CERVICAL LENGTH G eneric External Data Provider Start: 06-07-2024 GLUCOSE 1 HOUR Generic External Data Provider Start: 06-06-2024 RECURRENT VAGINITIS (HTRX) Sarah NGUYEN Work Phone: Start: 06-06-2024 Urnls dip stick/tabl et rgnt non-auto w/o micrscp Sarah NGUYEN Work Phone: Start: 06-06-2024 IGP,APTIMA HPV,AGE GDLN Sarah NGUYEN Work Phone: Start: 05-09-2024 MLR HEMOGLOBIN A1C Core y Raul DO Work Phone: Start: 05-09-2024 Urnls dip stick/tabl et rgnt non-auto w/o micrscp Newton Raul DO Work Phone: Start: 04-07-2024 End: 04-07-2024 Urnls dip stick/tablet [...] on above: Result Comment: PERF ORMED BY: [facility] [address] [place] [address] PATHOLOGIST NAT INSTRUCTOR CHUY PALOMO M.D. Start: 04-24-2023 Dilation and curetta ge of uterus PHYSICIAN NO FAMILY Start: 10-01-2020 Delivery of Products of Conception, External Approach TERENCE SCHMITZ Start: 10-01-2020 Repair Vulva, Director Of Strategic Programs al Approach TERENCE SCHMITZ Plan of Treatment Date Care Activity Detail Author Start: 11-07-2024 Influenza vaccination Influenz a Vaccine (Season Ended) [facility] Start: 08-11-2024 End: 08-11-2024 Patient encounter procedure 08/11/2024 10:40 AM EDT Routine [facility] [address] [place] [address] Newton Carter DO [address] [place], [place] [id number] [facility] Start: 07-20-2024 End: 10-20-2024 US Pelvis transvaginal US OB transvaginal Imaging Routine Encounter for screening for cervical length Expected: 07/20/2024, Expires: 10/20/2024 [facility] Work Phone: Comment on above: Expected: 07/20/2024 , Expires: 10/20/2024 Start: 07-20-2024 End: 07-20-2024 Patient encounter procedure 07/20/2024 9:30 AM EDT Routine [facility] [address] [place] [address] Yris Castellanos, MARISSA [address] [place] [id number] Arrived [facility] Comment on above: Arrived Start: 07-11-2024 End: 07-11-2024 Patient encounter procedure 07/11/2024 11:00 AM EDT Office Visit [facility] [address] [place] [address] Sarah Kern PA [address] [place], [place] [id number] [facility] Start: 07-04-2024 End: 07-04-2024 Patient encounter procedure 07/04/2024 11:10 AM EDT Routine [facility] [address] [place] [id number] Newton Carter, DO [address] [facility] [place] [address] [facility] Start: 07-04-2024 End: 07-04-2024 Professional / ancillary services management 07/04/2024 10:00 AM EDT Ancillary Procedure [facility] [address] [facility] [place] [id number] [facility] Start: 06-20-2024 End: 06-20-2024 Patient encounter procedure 06/20/2024 2:20 PM EDT Office Visit [facility] [address] [place] [address] Alina Schmitz NP [address] [place] [address] [facility] Start: 06-06-2024 End: 06-06-2025 US for US OB 14+ weeks anatomy scan Imaging Routine Screening, , for anatomic survey Expected: 06/06/2024, Expires: 06/06/2025 [facility] Comment on above: Expected: 06/06/2024 , Expires: 06/06/2025 Start: 06-06-2024 End: 06-06-2024 Patient encounter procedure [facility] Comment on above: Arrived Start: 05-09-2024 End: 08-09-2024 Alpha fetoprotein, maternal Alpha fetoprotein, maternal Lab Routine 12 weeks gestation of Insulin resistance complicating Expected: 05/09/2024 (Approximate), Expires: 08/09/2024 [facility] Comment on above: Expected: 05/09/2024 (Approximate), Expires: 08/09/2024 Start: 05-09-2024 End: 05-09-2024 Patient encounter procedure [facility] Comment on above: Arrived Start: 04-07-2024 End: 04-07-2025 ABO/Rh ABO/Rh Lab Routine Missed menses , unspecified gestational age Expected: 04/07/2024 (Approximate), Expires: 04/07/2025 [facility] Comment on above: Expected: 04/07/2024 (Approximate), Expires: 04/07/2025 Start: 04-07-2024 End: 04-07-2025 Blood type and Indirect antibody screen panel - Blood Type and screen Lab Routine Missed menses , unspecified gestational age Expected: 04/07/2024 (Approximate), Expires: 04/07/2025 [facility] Work Phone: Comment on above: Expected: 04/07/2024 (Approximate), Expires: 04/07/2025 Start: 04-07-2024 End: 04-07-2025 Drugs of abuse panel - Urine by Screen method Rapid drug screen, urine Lab Routine , unspecified gestational age Encounter for supervision of normal first in first trimester Expected: 04/07/2024 (Approximate), Expires: 04/07/2025 [facility] Comment on above: Expected: 04/07/2024 (Approximate), Expires: 04/07/2025 Start: 01-06-2024 End: 01-06-2024 Patient encounter procedure 01/06/2024 10:40 AM EDT Office Visit [facility] [address] [facility] [place] [address] Sarah Kern PA [address] [facility] [address] [place], [place] [address] Arrived [facility] Comment on above: Arrived Start: 11-13-2023 End: 11-13-2023 Patient encounter procedure 11/13/2023 9:30 AM EDT Procedure Visit [facility] Newton Carter, [address] [place] [address] [facility] Start: 11-08-2023 Influenza vaccination Influenza Vacc ine (#1) [facility] Start: 04-30-2023 [facility] Start: 04-24-2023 [facility] Start: 04-24-2023 End: 04-24-2023 [facility] Start: 04-20-2023 End: 04-20-2024 hCG, quantitative [facility] Work Phone: Comment on above: Ordered: 04/20/2023 Expected: 04/20/2023 (Approximate), Expires: 04/20/2024 Start: 04-13-2023 End: 04-13-2023 Patient encounter procedure 04/13/2023 9:45 AM EST Office Visit [facility] [address] [place] [address] Dawn Huitron MD [address] [place] [address] [facility] Start: 04-13-2023 End: 04-13-2023 Professional / ancillary services management 04/13/2023 9:30 AM EST Ancillary Procedure [facility] [address] [place] [address] [facility] Bacteria identified in Urine by Culture Urine culture Microbiology Routine Missed menses Ordered: 04/07/2024 [facility] Comment on above: Ordered: 04/07/2024 Basophils [#/volume] in Blood by Automated [facility] Basophils/100 leukocytes in Blood by Automated [facility] CBC W Auto Different ial panel - Blood CBC and differential Lab Routine Missed menses , unspecified gestational age Ordered: 04/07/2024 [facility] Comment on above: Ordered: 04/07/2024 CHLAMYDIA TRACHOMATI S (GENITO/STI) CHLAMYDIA TRACHOMATIS (GENITO/STI) Lab Routine Exposure to STD Ordered: 06/06/2024 [facility] Comment on above: Ordered: 06/06/2024 Cytology Cervical or vaginal smear or scraping study Pap Smear Pathology and Cytology Routine Well woman exam with routine gynecological exam Ordered: 06/06/2024 [facility] Comment on above: Ordered: 06/06/2024 Eosinophils/100 leukocytes in Blood by Automated count [facility] Erythrocyte distribution width [Ratio] by Automated [facility] Erythrocytes [#/volu me] in Blood [facility] Hematocrit [Volume Fraction] of Blood [facility] Hemoglobin [Mass/volume] in [facility] Hemoglobin A1c/Hemoglobin.total in Blood Hemoglobin A1c Lab Routine Missed menses , unspecified gestational age Ordered: 04/07/2024 [facility] Comment on above: Ordered: 04/07/2024 Hepatitis B virus surface Ag [Presence] in Serum or Plasma by Immunoassay Hepatitis B surface antigen Lab Routine Missed menses , unspecified gestational age Ordered: 04/07/2024 [facility] Comment on above: Ordered: 04/07/2024 Hepatitis C virus Ab [Presence] in Serum or Plasma by Immunoassay Hepatitis C antibody Lab Routine Missed menses , unspecified gestational age Ordered: 04/07/2024 [facility] Comment on above: Ordered: 04/07/2024 HIV-1/HIV-2 antigen/antibody combination immunoassay HIV-1 and HIV-2 antibodies Lab Routine Missed menses , unspecified gestational age Ordered: 04/07/2024 [facility] Comment on above: Ordered: 04/07/2024 Leukocytes [#/volume ] corrected for nucleated erythrocytes in Blood by Automated coun [facility] Leukocytes [#/volume ] in Blood [facility] Lymphocytes [#/volum e] in Blood by Automated count [facility] Lymphocytes/100 leukocytes in Blood by Automated count [facility] MCH [Entitic mass] b y Automated count [facility] MCHC [Mass/volume] b y Automated count [facility] MCV [Entitic volume] by Automated count [facility] Measurement of gluco se 1 hour after glucose challenge for glucose tolerance test GTT, 1 hour Lab Routine Insulin resistance complicating Ordered: 05/09/2024 [facility] Work Phone: Comment on above: Ordered: 05/09/2024 Monocytes [#/volume] in Blood by Automated count [facility] Monocytes/100 leukocytes in Blood by Automated count [facility] MYCOPLASMA/UREAPLASM A PANEL MYCOPLASMA/UREAPLASMA PANEL Lab Routine Vaginal discharge Ordered: 04/20/2023 [facility] Comment on above: Ordered: 04/20/2023 Neisseria gonorrhoea e DNA [Presence] in Unspecified specimen by RAMA with probe detection Neisseria gonorrhea DNA probe, direct Lab Routine Exposure to STD Ordered: 06/06/2024 [facility] Comment on above: Ordered: 06/06/2024 Neutrophils [#/volum e] in Blood by Automated count [facility] Neutrophils/100 leukocytes in Blood by Automated count [facility] Nucleated erythrocyt es [Presence] in Blood by Automated count [facility] Patient Education [facility] Work Phone: Patient referral [facility] Work Phone: Platelet mean volume [Entitic volume] in Blood by Automated count [facility] Platelets [#/volume] in Blood [facility] Reagin Ab [Presence] in Serum by RPR RPR Lab Routine Missed menses , unspecified gestational age Ordered: 04/07/2024 [facility] Comment on above: Ordered: 04/07/2024 Rubella antibody, IgG Rubella an tibody, IgG Lab Routine Missed menses , unspecified gestational age Ordered: 04/07/2024 [facility] [employer] Comment on above: Ordered: 04/07/2024 SURESWAB(R) ADVANCED VAGINITIS PLUS, TMA SURESWAB(R) ADVANCED VAGINITIS PLUS, TMA Pathology and Cytology Routine Vaginal discharge Ordered: 06/06/2024 [facility] [employer] Work Phone: Comment on above: Ordered: 06/06/2024 Payers Date Payer Category Payer Self-pay 2023 [facility] BCBS [id number] 2023 Unknown BCBS BCBS xxxxxx [id number] 2023-Present [phone] [address] [place] [address] [id number] 2023 Unknown [id number] 1998 Unknown [id number] 2.16.840.1.786843.3.579.2. 593 1998 Unknown [id number] 2.16.840.1.447097.3.579.2. 593 1998 Unknown [id number] 2.16.840.1.089395.3.579.2. 593 1998 Unknown [id number] 2.16.840.1.285239.3.579.2. 593 1998 Unknown [id number] 2.16.840.1.238356.3.579.2. 593 1998 Unknown [id number] 2.16.840.1.036019.3.579.2. 593 1998 Unknown [id number] 2.16.840.1.756297.3.579.2. 593 1998 Unknown [id number] 2.16.840.1.575017.3.579.2. 593 1998 Unknown [id number] 2.16.840.1.336620.3.579.2. 593 1998 Unknown [id number] 2.16.840.1.395049.3.579.2. 1259 1998 Unknown [id number] 2.16.840.1.061354.3.579.2. 1259 1998 Unknown [id number] 2.16.840.1.578732.3.579.2. 1259 1998 Unknown [id number] 2.16.840.1.920645.3.579.2. 1259 1998 Unknown [id number] 2.16.840.1.752638.3.579.2. 1259 1998 Unknown [id number] 2.16.840.1.721617.3.579.2. 1259 1959 Unknown [id number] 1959 Unknown [id number] Unknown [id number] 2.16.840.1.965828.3.579.2. 531 Unknown [id number] 2.16.840.1.217150.3.579.2. 531 Unknown [id number] 2.16.840.1.589205.3.579.2. 531 Social History Date Type Detail Facility Start: 08-13-2022 End: 04-30-2023 Tobacco smoking status NHIS Never smoked tobacco [facility] Start: 08-13-2022 Tobacco use and exposure Smokeless tobacco non-user [facility] Start: 04-07-2023 End: 06-06-2024 Alcohol intake Ex-drinker (finding) [facility] Start: [...] Start: 2000 Sex Assigned At Female F [facility] How often to you hav e [...] Facility 04-29-2023 Functional status Patient at [facility] Work Phone: Mental Status Date Assessment Result Facility 04-29-2023 Cognitive function Cognitive Sta tus Patient at [facility] Work Phone: Clinical Notes 04-20-2023 to 07-20-2024 Yris Castellanos NP - 07/20/2024 9:30 AM PATRICK Mitchell - 06/06/2024 11:30 AM Mehrdad Gomez LPN - 05/09/2024 10:10 AM Chanodayne Mayorga MA - 04/07/2024 1:30 PM EST Note Date & Type Note Facility 07-20-2024 History of Presen t illness Narrative Reason [...] nursing note reviewed. Exam conducted with a crts present. Vitals: Estimated body mass index is [...] by Cayla Mayorga MA on behalf of: Yris Castellanos NP documented in this encounter [facility] 06-06-2024 History of Presen t illness Narrative Reason [...] SYSTEMS Review of Systems: Review of Systems All other systems reviewed and are negative. OBJECTIVE Objective: Physical Exam Constitutional: Appearance: Normal appearance. She is well-developed. Genitourinary: Vulva normal. Cardiovascular: Rate and Rhythm: Normal rate and [...] nursing note reviewed. Exam conducted with a crts present. Vitals: Estimated body mass index is 31.67 kg/m as calculated from the following: Height as of 01/06/24: 4' 11 . Weight as of this encounter: 156 lb 12.8 oz. BP: 120/70 Patient's last menstrual period was 01/30/2024. ASSESSMENT & PLAN ICD-10-CM 1. 16 weeks gestation of Z3A.16 POCT urinalysis dipstick manually resulted 2. Second trimester Z34.92 POCT urinalysis dipstick manually resulted 3. Screening, , for anatomic survey Z36.89 US OB 14+ weeks anatomy scan US OB 14+ weeks anatomy scan 4. Exposure to STD Z20.2 CHLAMYDIA TRACHOMATIS (GENITO/STI) Neisseria gonorrhea DNA probe, direct 5. Vaginal discharge N89.8 SURESWAB(R) ADVANCED VAGINITIS PLUS, TMA 6. Well woman exam with routine gynecological exam Z01.419 Pap Smear Return OB/Annual Exam: Patient presents today for an annual exam/routine obstetrics appointment. Patient is currently 16w0d . Patient is doing well and states she has no complaints. Pap/cultures was obtained without difficulty. Patient previously received MsAFP to have obtained. Orders Placed This Encounter Procedures US OB 14+ weeks anatomy scan CHLAMYDIA TRACHOMATIS (GENITO/STI) Neisseria gonorrhea DNA probe, direct POCT urinalysis dipstick manually resulted Follow Up: Patient is to return to our office in 4 weeks for routine OB appointment Documented by Rachael Heard LPN on behalf of: PATRICK Cowart documented in this encounter [facility] 05-09-2024 History of Presen t illness Narrative Reason [...] SYSTEMS Review of Systems: Review of Systems All other systems reviewed and are negative. OBJECTIVE Objective: Physical Exam Constitutional: Appearance: Normal [...] nursing note reviewed. Exam conducted with a crts present. Vitals: Estimated body mass index is 31.99 kg/m as calculated from the following: Height as of 01/06/24: 4' 11 . Weight as of this encounter: 158 lb 6.4 oz. BP: 122/76 Patient's last menstrual period was 01/30/2024. ASSESSMENT & PLAN ICD-10-CM 1. First trimester Z34.91 POCT urinalysis dipstick manually resulted 2. 12 weeks gestation of Z3A.12 Alpha fetoprotein, maternal Alpha fetoprotein, maternal 3. Insulin resistance complicating O26.899 GTT, 1 hour E88.819 Alpha fetoprotein, maternal Alpha fetoprotein, maternal New OB: Patient presents today for 1st time obstetrics appointment with provider. Patient is currently 12w0d . Patients history has been reviewed in great detail including any potential risks. Patient stated she currently has no complaints. Expectations throughout regarding labs, ultrasounds, and appointments have been discussed with the patient in detail. It was reiterated that the patient is to drink 6-8 glasses of water a day, eat 6 small meals a day, do not consume raw or undercooked meat, and stay away from [facility]. Patient has been consulted regarding any further do's and don'ts of . Patient voiced understanding and all questions and concerns were answered. Patient is currently taking Metformin and will have an Early 1 hour Gtt drawn at 16 weeks gestation. Patient has not yet obtained intake labs and was given printouts of all labs. Patient also given MSAFP order to have drawn with early 1hour gtt at 16 weeks. Orders Placed This Encounter Procedures GTT, 1 hour Alpha fetoprotein, maternal POCT urinalysis dipstick manually resulted Follow Up: Patient is to return in 4 weeks for routine OB appointment. Documented by Smita Gomez LPN on behalf of: Newton Carter DO documented in this encounter [facility] 04-07-2024 History of Presen t illness Narrative [...] or undercooked meat, and stay away from [facility]. Patient has also been advised to not [...] Cayla Mayorga MA documented in this encounter [facility] 01-06-2024 History of Presen t illness Narrative [...] after having a D&C performed at [facility] with Dr. Carter. 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 History & Physical Signed Patient: Sarah Arce MR#: [id number] : 2000 Acct:[id number] Age/Sex: 23 / F Adm Date: 4 Loc: Room: [address] [place] [address] Type: REG CLI Attending Dr: Dawn Huitron MD Copies to: NO FAMILY PHYSICIAN Dawn Huitron MD-[facility] Date of Service: 04/29/2023 ELECTRONIC DEVICE MONITOR - HPI History of Present Illness Chief Complaint: Vaginal bleeding and cramping Planned Procedure: Operation Date: 04/30/23 07:40 Proposed Procedures p OR D&C, Suction(Not Applicable) - Dawn Huitron MD HPI: 23-year-old with a history of [...] negative unless noted below or in HPI [facility] Medical History (Updated 04/29/23 @ 22:08 by Dawn Huitron MD) H/O reduction of closed fracture No [...] 1,000 mls @ 125 mls/hr IV .Q8H [facility] Stop: 04/28/24 16:59 Last Admin: 04/29/23 17:50 Dose: 125 mls/hr Cefazolin Sodium (Ancef) 2 gm in 50 mls @ 100 mls/hr IV Q8H [facility] Last Admin: 04/29/23 17:51 Dose: 100 mls/hr Oxytocin 40 unit/ Lactated (Ringer's) 504 mls @ 150 mls/hr IV .Q3H22M ONE; Protocol Stop: 04/30/23 02:21 Misoprostol (Misoprostol 200 Mcg Tablet) 800 mcg VAGINAL Q4H [facility] Stop: 04/30/23 02:31 ELECTRONIC DEVICE MONITOR - Exam Physical Exam Vital signs: Temp [...] Routine Psychiatric Exam Psychiatric: Present normal affect ELECTRONIC DEVICE MONITOR - Results Laboratory Results - Last 48 hrs. 04/29/23 20:27: Blood Type Recheck A Positive 04/29/23 17:45: HCG, Quant 3230.00 04/29/23 17:31: Corrected WBC 13.6 H, Uncorrected WBC Count 13.6 H, RBC 4.93, Hgb 13.3, Hct 39.8, MCV 80.8, MCH 27.0, MCHC 33.5, RDW 13.9, Plt Count 369, MPV 7.0, Neut % (Auto) 77.6, Lymph % (Auto) 17.0, [place]renac % (Auto) 4.0, Eos % (Auto) 1.1, Baso % (Auto) 0.3, Nucleat RBC Rel Count 0.2, Neut # (Auto) 10.6 H, Lymph #(Auto) 2.3, Arenac # (Auto) 0.5, Eos # (Auto) 0.2, Baso # (Auto) 0.0, Blood Type APositive, Antibody Screen Negative Diagnostic Imaging Comments: 2.1 cm uterine complex with vascularization, essentially unchanged from yesterday ELECTRONIC DEVICE MONITOR - A/P (1) Vaginal bleeding: Plan Failed Cytotec evacuation of uterine tissue Suction D&C D&C Documented By: CHUCK Astorga 04/29/23 22 06 Signed By: <Electronically signed by CHUCK Huitron> 04/30/23 0702 [facility] Work Phone: 1(383) 970-242902-12-2024 History of Present illness Narrative* Dawn Huitron MD - 04/20/2023 9:15 AM EST Images from the original note were not included. Dawn Huitron MD Obstetrics and Gynecology Patient: Sarah Arce [...] to gross testing, coordination, and gait are normalor at baseline unless noted below. Physical Exam [...] impossible D[facility]C on Thursday [facility] Diagnosis Missed Bleeding in early Unspecified hemorrhage in early , unspecified as to episode of care Vaginal discharge Leukorrhea, not specified as infective documented in this encounter [facility]Evaluation noteNo assessment [facility] Work Phone: Evaluation note* Diagnosis Onset Date Resolution Status Vaginal bleeding acute [facility] Work Phone: Evaluation note* Diagnosis Encounter for postoperative care Encounter for weight management documented in this encounter [facility] Healthcare[facility] note* Diagnosis Missed menses , unspecified gestational age Encounter for supervision of normal first in first trimester Nausea and vomiting in Unspecified vomiting of , unspecified as to episode of care documented in this encounter [facility] Healthcare[facility] note* Diagnosis First trimester state, incidental 12 weeks gestation of Insulin resistance complicating documented in this encounter [facility] Healthcare[facility] note* Diagnosis 16 weeks gestation of Second trimester state, incidental Screening, , for anatomic survey Encounter for anatomic survey Exposure to STD Vaginal discharge Leukorrhea, not specified as infective Well woman exam with routine gynecological exam Routine gynecological examination documented in this encounter [facility] HealthcareEvaluation note* Diagnosis Second trimester state, incidental 22 weeks gestation of Encounter for screening for cervical length documented in this encounter [facility] Healthcare[facility]ospital Discharge instructions Additional Instructions SPECIAL INSTRUCTIONS Call for heavy bleeding FOLLOW UP Thursday 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 Start Date End Date Unallocated, Sondra Provider [address] [facility] [address] PCP - General Family Medicine 04/13/23 Team Status: Active Member Role Status Dates PHYSICIAN NO FAMILY Primary Care Provider Active Team Status: Inactive Member Role Status Dates Dawn Huitron MD Attending Provider Active St art: April 24, 2023 End: April 24, 2023 PHYSICIAN NO FAMILY Primary Care Provider Active Start: April 24, 2023 End: April 24, 2023 Team Status: Inactive Member Role Status Dates PHYSICIAN NO FAMILY Primary Care Provider Active Start: April 29, 2023 End: April 30, 2023 Dawn Huitron MD Attending Provider Active St art: April 29, 2023 End: April 30, 2023 Team Status: Inactive Member Role Status Dates PHYSICIAN NO FAMILY Primary Care Provider Active Start: November 13, 2023 End: November 13, 2023 Newton Carter DO Attending Provider Active Start : November 13, 2023 End: November 13, 2023 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 Start Date End Date Unallocated, Sondra Silverio MD [address] [place] [address] PCP - General Family Medicine 04/13/23 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 Start Date End Date Unallocated, [place] [address] PCP - General Family Medicine 04/13/23 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 Start Date End Date Unallocated, MD Rogelio [address] [place] [address] PCP - General Family Medicine 04/13/23 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 Start Date End Date Unallocated, Sondra Silverio MD [address] [place] [address] PCP - General Family Medicine 04/13/23 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 Start Date End Date Unallocated, Sondra Silverio MD [address] [place] [address] PCP - General Family Medicine 04/13/23 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 Start Date End Date Angel Seay MD [address] [place] [address] PCP - General Family Medicine 01/26/24 Alina Schmitz NP [address] [place] [address] Nurse Practitioner Family Medicine 01/26/24 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 Start Date End Date Angel Seay MD [address] [place] [address] PCP - General Family Medicine 01/26/24 Alina Schmitz NP [address] [place] [address] Nurse Practitioner Family Medicine 01/26/24 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 Start Date End Date Angel Seay MD [address] [place] [phone] PCP - General Family Medicine 01/26/24 Alina Schmitz NP [address] [place] [phone] Nurse Practitioner Family Medicine 01/26/24 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 Start Date End Date Angel Seay MD [address] [place] [address] PCP - General Family Medicine 01/26/24 Alina Schmitz NP [address] [place] [address] Nurse Practitioner Family Medicine 01/26/24 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 Start Date End Date Angel Seay MD [address] [place] [phone] PCP - General Family Medicine 01/26/24 Alina Schmitz NP [address] [place] [address] Nurse Practitioner Family Medicine 01/26/24 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 Start Date End Date Angel Seay MD [address] [place] [address] PCP - General Family Medicine 01/26/24 Alina Schmitz NP [address] [place] [address] Nurse Practitioner Family Medicine 01/26/24 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 [facility]. provides no warranty or guarantee of the accuracy or completeness of information in this document.
== END 2024-08-02 16:35 | disposition home or self-care (01) ==
LOC: US 16:34
PROVIDERS: PCP Nurse Practitioner; Visit Provider Nurse Practitioner Family
DX: Z36.86 Encounter for antenatal screening for cervical length (principal); Z3A.24 24 weeks gestation of pregnancy
CPT/HCPCS: 76817

== ENCOUNTER 2024-08-25 08:16 | Outpatient (OUT) | payer BC, SELFPAY ==
--- OUTSIDE RECORDS SUMMARY | 2024-08-11 10:40 | XMS_ITS | Encounter Summary ---
Author Organization [facility] Address [address] [place] [address] Care Team Providers Care Software Support Specialist Name Role Phone Angel Seay MD Primary Care Provider [phone] Alina Schmitz NP Unavailable [phone] Reason for Visit * Reason Comments Routine Visit Encounter Details Date Type Department Care Team (Late st Contact Info) Description 08/11/2024 10:40 AM EDT Routine [facility] [address] [place] [phone] Newton Carter, DO [address] [place], [place] [id number] Second trimester ([facility]); 25 weeks gestation of ([facility]); Diabetes mellitus screening Social History Tobacco Use Types Packs/Day Years [...] Recorded Patient Health Questionnaire-2 Score 0 04/29/2023 Newton Depression Scale Answer Date Recorded Newton Depression Scale Total 0 04/13/2023 The thought [...] Sign Reading Time Taken Comments Blood Pressure 118/70 08/11/2024 11:06 AM EDT Pulse - - Temperature - - Respiratory Rate - - Oxygen Saturation - - Inhaled Oxygen Concentration - - Weight 75.3 kg (166 lb) 08/11/2024 11:06 AM EDT Height - - Body Mass Index 33.53 01/06/2024 10:50 AM EDT documented in this encounter Progress Notes * PATRICK Cowart - 08/11/2024 10:40 AM EDT Reason for Appointment: Patient ID: [...] reviewed. Vitals: Estimated body mass index is 33.53 kg/m?? as calculated from the following: Height as of 01/06/24: 4' 11 . Weight as of this encounter: 166 lb. BP: 118/70 Patient's last menstrual period was 01/30/2024. ASSESSMENT & PLAN ICD-10-CM 1. Second trimester Z34.92 2. 25 weeks gestation of Z3A.25 3. Diabetes mellitus screening Z13.1 POCT urinalysis dipstick manually resulted CBC Glucose tolerance, 1 hour CBC Glucose tolerance, 1 hour Return OB: Patient presents today for a routine obstetrics appointment. Patient is currently 25w3d . Patient states she is doing well but has complaints of being tired due to current . Patient has verbalizes frequent movement. Orders Placed This Encounter Procedures CBC Glucose tolerance, 1 hour POCT urinalysis dipstick manually resulted Follow Up: Patient is to return to office in 4 week for routine OB appointment. Documented by PATRICK Cowart on behalf of: Newton Carter DO documented in this encounter Plan of Treatment Upcoming Encounters Date Type Department Care Team (Late st Contact Info) Description 09/01/2024 2:30 PM EDT Routine [facility] [address] [place] [phone] Sarah Penn PA [address] [place] [address] [place] [address] Scheduled Orders Name Type Priority Associated Diagnoses Orde r Schedule CBC Lab Routine Diabetes mellitus screening Expected: 08/11/2024 (Approximate), Expires: 08/11/2025 Glucose tolerance, 1 hour Lab Routine Diabetes mellitus screening Expected: 08/11/2024 (Approximate), Expires: 08/11/2025 documented as of this encounter Procedures Procedure Name Priority Date/Time Associated Diagnosis Comments POCT URINALYSIS DIPSTICK Routine 08/11/2024 11:06 AM EDT Diabetes mellitus screening documented in this encounter Results * POCT urinalysis dipstick manually resulted (08/11/2024 11:06 AM EDT) Color, UA Yellow Clarity, UA Clear Glucose, UA Negative Negative - 2000(110) ++++ mg/dL Bilirubin, UA Negative Negative - 4(70) +++ mg/dL Ketones, UA Negative Negative - 160(16) ++++ mg/dL Spec Grav, UA 1.020 1 - 1.03 Blood, UA Negative Negative - 50 Sherman/mcL pH, UA 7.0 5 - 9 Protein, UA Negative Negative - 2000(20) ++++ mg/dL Urobilinogen, UA 0.2 0.2 - 12 mg/dL Leukocytes, UA Positive Negative - 500+++ Jackie/mcL Comment:SMALL Nitrite, UA Negative Negative - Positive Urine 08/11/2024 11:0 6 AM EDT Newton Raul DO POINT OF CARE TEST ENTER/EDIT OR DERABLES Final Result documented in this encounter Visit Diagnoses Diagnosis Second trimester ([facility]) state, incidental 25 weeks gestation of ([facility]) Diabetes mellitus screening Screening for diabetes mellitus documented in this encounter Care Teams Software Support Specialist Relationship Specialty Start Date End Date Angel Seay MD [address] [place] [address] PCP - General Family Medicine 01/26/24 Alina Schmitz NP [address] [place] [phone] Nurse Practitioner Family Medicine 01/26/24 documented as of this encounter
--- OUTSIDE RECORDS SUMMARY | 2024-08-25 07:39 | XMS_ITS | CCD ---
Author Organization [facility] CliniSytx Care Team Providers Care Python Architect Name Role Phone AICHHOLZ, LAWYER PROBATE ALINA Primary Care Unavailable KOFI CURRIE Consulting Unavailable KOFI CURRIE Admitting Unavailable KOFI CURRIE Attending Unavailable AICHHOLZ, LAWYER PROBATE ALINA Primary Care Unavailable QUIQUE, DR KECIA Devi Consulting Unavailable KOFI CURRIE Attending Unavailable KOFI CURRIE Admitting Unavailable KOFI CURRIE Consulting Unavailable KOFI CURRIE Attending [facility]available [facility] DR MADRID Referring Unavailable AICHHOLZ, LAWYER PROBATE ALINA Primary Care Unavailable KOFI CURRIE Consulting Unavailable KOFI CURRIE Admitting Unavailable KARASIK, DR STRONG Attending Unavailable AICHHOLZ, LAWYER PROBATE ALINA Primary Care Unavailable KARASIK, DR STRONG Consulting Unavailable KARASIK, DR STRONG Admitting Unavailable KARASIK, DR STRONG Procedure Practitioner Unava ilable KOFI CURRIE Consulting Unavailable KOFI CURRIE Attending Unavailable AICHHOLZ, LAWYER PROBATE ALINA Primary Care Unavailable KOFI CURRIE Admitting Unavailable AICHHOLZ, LAWYER PROBATE ALINA Primary Care Unavailable KARASIK, DR STRONG Consulting Unavailable KARASIK, DR STRONG Admitting Unavailable KARASIK, DR STRONG Attending Unavailable KOFI CURRIE Consulting Unavailable KOFI CURRIE Attending Unavailable AICHHOLZ, LAWYER PROBATE ALINA Primary Care Unavailable KOFI CURRIE Admitting Unavailable AICHHOLZ, LAWYER PROBATE ALINA Primary Care Unavailable KOFI CURRIE Consulting Unavailable KOFI CURRIE Admitting Unavailable KOFI CURRIE Attending Unavailable AICHHOLZ, LAWYER PROBATE ALINA Admitting Unavailable AICHHOLZ, LAWYER PROBATE ALINA Attending Unavailable AICHHOLZ, LAWYER PROBATE ALINA Consulting Unavailable AICHHOLZ, LAWYER PROBATE ALINA Primary Care Unavailable Unavailable Primary Care Provider Unavailabl e Unallocated, Noms Provider Primary Care Provider MD Dawn Huitron Attending Provider NO FAMILY, PHYSICIAN Primary Care Provider Unava ilable NO FAMILY, PHYSICIAN Primary Care Provider Unava ilable DO Newton Carter Attending Provider [phone] NO FAMILY, PHYSICIAN Primary Care Unavailable Dawn [...] Dawood MASSEY, Angel Primary Care Provider Nadir POLE FRAME CONSTRUCTION WORKER, Alina Unavailable NEWTON CARTER Attending Unavailable SARAH KERN Attending Unavailable YRIS CASTELLANOS Attending Unavailable NEWTON CARTER Attending Unavailable SARAH [...] hydrochloride 500 mg extended release oral tablet (20 sources) Biguanide Start: 01-06-2024 End: 12-31-2024 take [...] w/FA-DHA ( Gummies) 0.18-25 MG chewable tablet (20 sources) Start: 04-07-2024 MV & Min w/FA-DHA [...] Problem Date Documented Date Episodic/Chronic Administrative/social admission (8 sources) Patient encounter status; Translations: [Persons encountering [...] trimester] 05-09-2024 Episodic Other female genital disorders (20 sources) Vaginal bleeding; Translations: [Abnormal uterine and [...] 10-05-2020 Chronic Other and delivery including normal (19 sources) Encounter for routine follow-up; Translations: [Single [...] [22 weeks gestation of ] 07-20-2024 Episodic Residual codes; unclassified (2 sources) Gestation period, 25 weeks; Translations: [25 weeks gestation of ] 08-11-2024 Episodic Unclassified (1 source) CONTACT W/AND (SUSP) [...] Range Facility Urinalysis macro (dipstick) panel (U)on 08-11-2024 Bilirubin, UA Negative Negative - 4(70) +++ mg/dL [facility] Blood, UA Negative Negative - 50 Sherman/mcL [facility] Clarity, UA Clear [facility] Color, UA Yellow [facility] Glucose, UA Negative Negative - 1999(110) ++++ mg/dL [facility] Interpretation and review of laboratory results Normal [facility] Ketones, UA Negative Negative - 160(16) ++++ mg/dL [facility] Leukocytes, UA Positive Negative - 500+++ Jackie/mcL [facility] Comment on above: SMALL Nitrite, UA Negative Negative - Positive [facility] pH, UA 7 5 - 9 [facility] Protein, UA Negative Negative - 1999(20) ++++ mg/dL [facility] Spec Grav, UA 1.02 1 - 1.03 [facility] Urobilinogen, UA 0.2 0.2 - 12 mg/dL [facility] US OB CERVICAL LENGTHon 07-08 [place] [address] Ultrasound Report Signed Patient: SARAH ARCE MR#: [id number] : 2000 Acct:[id number] Age/Sex: 24 / F ADM Date: 08/02/24 Loc: US Attending Dr: Yris Castellanos Ordering Physician: Yris Castellanos Date of Service: 08/02/24 Procedure(s): US OB cervical length Accession Number(s): [id number] cc: Alina Schmitz POLE FRAME CONSTRUCTION WORKER; Yris Castellanos [address] [address] Patient Name: SARAH ARCE MRN: [facility]:[id number] date: 2000 Sex: F Assigned Patient Location: Current Patient Location: US Accession/Order Number: [id number] Exam Date: 08/02/2024 18:52 Report Date: 08/02/2024 18:58 At the request of: YRIS CASTELLANOS Procedure: US OB cervical length US OB cervical length 08/02/2024 5:18 PM SIGNS AND SYMPTOMS: 11/21/2024 ENCOUNTER SCREENING FOR CERVICAL LENGTH Z36.86 COMPARISON: 07/05/2024. TECHNIQUE: Rousseau scale images of the gravid uterus. FINDINGS: The visualized fetus has an estimated gestational age of 24 weeks 1 day. A heart rate is identified at 154 bpm. A normal amount of amniotic fluid is present. The placenta is 7.1 cm from the internal os of the cervix and is anteriorly located. The cervical os is closed. The cervix measures 3.5 cm in length. Pelvic survey reveals no gross abnormalities. US/US OB cervical length IMPRESSION: Single live IUP with an estimated gestational age of 24 weeks 1 day with and a normal heart rate. The cervical os is closed. The cervix measures 3.5 cm in length. Impression dictated by: Roel Daniels M.D. 08/02/2024 6:58 PM Dictation Location: [place] [address] Electronically authenticated by: [id number] Y Date: 08/02/2024 18:58 Dictated By: Roel Daniels M.D. Signed By: 08/02/241899 DD/ 57 TD/TT: Cell Maker: [facility] Radiology, Radiologist, - 08/02/2024 [place] [address] Ultrasound Report Signed Patient: SARAH ARCE MR#: [id number] : 2000 Acct:[id number] Age/Sex: 24 / F ADM Date: 08/02/24 Loc: US Attending Dr: Yris Castellanos Ordering Physician: Yris Castellanos Date of Service: 08/02/24 Procedure(s): US OB cervical length Accession Number(s): [id number] cc: Alina Schmitz NP; Yris Castellanos The [address] [address] Patient Name: SARAH ARCE MRN: [facility]:[id number] date: 2000 Sex: F Assigned Patient Location: Current Patient Location: Accession/Order Number: [id number] Exam Date: 08/02/2024 18:52 Report Date: 08/02/2024 18:58 At the request of: YRIS CASTELLANOS Procedure: US OB cervical length US OB cervical length 08/02/2024 5:18 PM SIGNS AND SYMPTOMS: 11/21/2024 ENCOUNTER SCREENING FOR CERVICAL LENGTH Z36.86 COMPARISON: 07/05/2024. TECHNIQUE: Rousseau scale images of the gravid uterus. FINDINGS: The visualized fetus has an estimated gestational age of 24 weeks 1 day. A heart rate is identified at 154 bpm. A normal amount of amniotic fluid is present. The placenta is 7.1 cm from the internal os of the cervix and is anteriorly located. The cervical os is closed. The cervix measures 3.5 cm in length. Pelvic survey reveals no gross abnormalities. US/US OB cervical length IMPRESSION: Single live IUP with an estimated gestational age of 24 weeks 1 day with and a normal heart rate. The cervical os is closed. The cervix measures 3.5 cm in length. Impression dictated by: Roel Daniels M.D. 08/02/2024 6:58 PM Dictation Location: [place] [address] Electronically authenticated by: [id number] Y Date: 08/02/2024 18:58 Dictated By: Roel Daniels M.D. Signed By: 08/02/24 190 DD/ 57 TD/TT: Cell Maker: [facility] Radiology Study observation (narrative) [facility] US OB CERVICAL LENGTHOrdered By: Radiologist Radiology on 08-02-2024 [facility] Work Phone: Urinalysis macro (dipstick) panel (U)on 07-20-2024 Bilirubin, UA Negative Negative - 4(70) +++ mg/dL [facility] Blood, UA Negative Negative - 50 Sherman/mcL [facility] Clarity, UA Clear [facility] Color, UA Yellow [facility] Glucose, UA Negative Negative - 2000(110) ++++ mg/dL [facility] Interpretation and review of laboratory results Normal [facility] Ketones, UA Negative Negative - 160(16) ++++ mg/dL [facility] Leukocytes, UA Positive Negative - 500+++ Jackie/mcL [facility] Comment on above: small Nitrite, UA Negative Negative - Positive [facility] pH, UA 7 5 - 9 [facility] Protein, UA Positive Negative - 2000(20) ++++ mg/dL [facility] Comment on above: 30 Spec Grav, UA 1.025 1 - 1.03 [facility] Urobilinogen, UA 0.2 0.2 - 12 mg/dL [facility] No Panel InformationOrdered By: Radiologist Radiology on 07-06-2024 [facility] Work Phone: No Panel Informationon 07-06 Radiology Study observation (narrative) [facility] US OB ANATOMYon 07-06-[address] [address] Ultrasound Report Signed Patient: SARAH ARCE MR#: [id number] : 2000 Acct:[id number] Age/Sex: 24 / F ADM Date: 07/05/24 Loc: US Attending Dr: Sarah Kern Ordering Physician: Sarah Kern Date of Service: 07/05/24 Procedure(s): US OB anatomy Accession Number(s): [id number] cc: Alina Schmitz NP; Sarah Kern [address] [address] Patient Name: SARAH ARCE MRN: [facility]:[id number] date: 2000 Sex: F Assigned Patient Location: US Current Patient Location: Accession/Order Number: [id number] Exam Date: 07/06/2024 08:58 Report Date: 07/06/2024 [...] Jr., D.O. 07/06/2024 9:06 AM Dictation Location: [place] [address] Electronically authenticated by: [id number] Y Date: 07/06/2024 09:06 Dictated By: Pedro Luis Jack M.D. Signed By: 07/06/24908 DD/ 5 TD/TT: Cell Maker: [facility] Radiology, Radiologist, MD - 07/06/2024 [place] [address] Ultrasound Report Signed Patient: SARAH ARCE MR#: [id number] : 2000 Acct:[id number] Age/Sex: 24 / F ADM Date: 07/05/24 Loc: US Attending Dr: Sarha Kern Ordering Physician: Sarah Kern Date of Service: 07/05/24 Procedure(s): US OB anatomy Accession Number(s): [id number] cc: Alina Schmitz NP; Sarah Kern The [place] [id number] Patient Name: SARAH ARCE MRN: [facility]:[id number] date: 2000 Sex: F Assigned Patient Location: US Current Patient Location: Accession/Order Number: [id number] Exam Date: 07/06/2024 08:58 Report Date: 07/06/2024 [...] Impression dictated by: Pedro Luis Jack Jr., D.OMercedez 07/06/2024 9:06 AM Dictation Location: [employer] Electronically authenticated by: [id number] Y Date: 07/06/2024 09:06 Dictated By: Pedro Luis Jack M.D. Signed By: 07/06/24908 DD/ 5 TD/TT: Cell Maker: [facility] OB CERVICAL LENGTHon 06-09 [place] [id number] Ultrasound Report Signed Patient: SARAH ARCE MR#: [id number] : 2000 Acct:[id number] Age/Sex: 24 / F ADM Date: 07/05/24 Loc: US Attending Dr: Sarah Kern Ordering Physician: Sarah Kern Date of Service: 07/05/24 Procedure(s): US OB cervical length Accession Number(s): [id number] cc: Alina Schmitz NP; Sarah Kern [address] [address] Patient Name: SARAH ARCE MRN: [id number] date: 2000 Sex: F Assigned Patient Location: US Current Patient Location: Accession/Order Number: [id number] Exam Date: 07/06/2024 08:58 Report Date: 07/06/2024 [...] Jr., D.O. 07/06/2024 9:06 AM Dictation Location: [place] [address] Electronically authenticated by: [id number] Y Date: 07/06/2024 09:06 Dictated By: Pedro Luis Jack M.D. Signed By: 07/06/24908 DD/ 5 TD/TT: Cell Maker: [facility] Radiology, Radiologist, - 07/06/2024 [place] [address] Ultrasound Report Signed Patient: SARAH ARCE MR#: [id number] : 2000 Acct:[id number] Age/Sex: 24 / F ADM Date: 07/05/24 Loc: US Attending Dr: Sarah Kern Ordering Physician: Sarah Kern Date of Service: 07/05/24 Procedure(s): US OB cervical length Accession Number(s): [id number] cc: Alina Schmitz NP; Sarah Kern The [place] [id number] Patient Name: SARAH ARCE MRN: [facility]:[id number] date: 2000 Sex: F Assigned Patient Location: Current Patient Location: Accession/Order Number: [id number] Exam Date: 07/06/2024 08:58 Report Date: 07/06/2024 [...] Jr., D.O. 07/06/2024 9:06 AM Dictation Location: [place] [address] Electronically authenticated by: [id number] Y Date: 07/06/2024 09:06 Dictated By: Pedro Luis Jack M.D. Signed By: 07/06/24908 DD/ 5 TD/TT: Cell Maker: JODEE Canales IGP,APTIMA HPV,AGE GDLNon AGE GDLN ACOG TESTING Note . [facility] Comment on above: TESTS RESULT FLAG UN ITS REF RANGE LAB Clinician Provided Cytology Information Source.............Cervix Other.............. No. of containers..01 ThinPrep Vial Age Christopher CLARK Shila... FLAG LEGEND: L-Low Normal,H-High Normal,LL-Alert Low,HH-Alert High <-Panic Low,>-Panic High,A-Abnormal,AA-Critical Abnormal Performed at: 01 =G [facility] [address] Sarai Durant MD, IGP, RFX APTIMA HPV ASCU Note . [facility] Comment on above: TESTS RESULT FLAG UN ITS REF RANGE LAB DIAGNOSIS: 02 NEGATIVE FOR INTRAEPITHELIAL LESION OR MALIGNANCY. THIS SPECIMEN WAS RESCREENED PART OF OUR SOLAR PHOTOVOLTAIC DESIGNER PROGRAM. Specimen adequacy: 02 Satisfactory for evaluation. No endocervical component is identified. An endocervical component is not commonly seen in the patient. Performed by: 03 My Kraus, Solar Systems Designer (ASC) QC reviewed by: 02 Debbie Pagan, Solar Systems Designer (ASC) . 02 Note: Note 02 The Pap [...] <-Panic Low,>-Panic High,A-Abnormal,AA-Critical Abnormal Performed at: [address] [address] Sarai Durant MD, 03 [facility] [address] Melissa PhD, Performed at: [facility] [id number] Spring Forger: Sarai Durant MD, Phone: [phone] Performed at: [address] [id number] Spring Forger: Sarai Durant MD, Phone: [phone] [facility] GLUCOSE 1 HOURon 06-07-2024 Glucose [Mass/Vol] 108 mg/dL NINF - 13 0 mg/dL [facility] RECURRENT VAGINITIS (HTRX)on 06-07-2024 ATOPOBIUM VAGINAE 0 [facility] ATOPOBIUM VAGINAE Not detected [facility] BVAB 2,3 (BACTERIAL VAGINOSIS ASSOCIATED BACTERIA 2, 3); MOBILUNCUS SPP 0 [facility] BVAB 2,3 (BACTERIAL VAGINOSIS ASSOCIATED BACTERIA 2, 3); MOBILUNCUS SPP Not detected [facility] ANTONINO ALBICANS, PARAPSILOSIS, TROPICALIS 0 [facility] ANTONINO ALBICANS, PARAPSILOSIS, TROPICALIS Not detected [facility] ANTONINO GLABRATA 0 [facility] ANTONINO GLABRATA Not detected [facility] ANTONINO KRUSEI 0 [facility] ANTONINO KRUSEI Not detected [facility] CHLAMYDIA TRACHOMATIS 0 [facility] CHLAMYDIA TRACHOMATIS Not detected N [facility] GARDNERELLA VAGINALIS 0 [facility] GARDNERELLA VAGINALIS Not detected N [facility] MEGASPHAERA (TYPES 1, 2) 0 [facility] MEGASPHAERA (TYPES 1, 2) Not detected [facility] MYCOPLASMA GENITALIUM 0 [facility] MYCOPLASMA GENITALIUM Not detected N [facility] NEISSERIA GONORRHOEAE 0 [facility] NEISSERIA GONORRHOEAE Not detected N [facility] TRICHOMONAS VAGINALIS 0 [facility] TRICHOMONAS VAGINALIS Not detected N [facility] Urinalysis macro (dipstick) panel (U)on 06-06-2024 Bilirubin, UA Positive Negative - 4(70) +++ mg/dL [facility] Comment on above: small Blood, UA Negative Negative - 50 Sherman/mcL [facility] Clarity, UA Clear [facility] Color, UA Hanna [facility] Glucose, UA Negative Negative - 1999(110) ++++ mg/dL [facility] Interpretation and review of laboratory results Abnormal [facility] Ketones, UA Positive Negative - 160(16) ++++ mg/dL [facility] Comment on above: 160 Leukocytes, UA Negative Negative - 500+++ Jackie/mcL [facility] Nitrite, UA Negative Negative - Positive [facility] pH, UA 5.5 5 - 9 [facility] Protein, UA Positive Negative - 1999(20) ++++ mg/dL [facility] Comment on above: 100 Spec Grav, UA 1.03 1 - 1.03 [facility] Urobilinogen, UA 0.2 0.2 - 12 mg/dL [facility] MLR HEMOGLOBIN A1Con 025 Glucose [Mass/Vol] 105 mg/dL [facility] HbA1c (Bld) [Mass fraction] 5.3 % 4.5 - 6.2 % [facility] Comment on above: ADA RECOMMENDED LIMI T 4.0 - 6.0 ADA THERAPEUTIC TARGET < 7.0 ACTION SUGGESTED > 7.0 CLIN[facility] Urinalysis macro (dipstick) panel (U)on 05-09-2024 Bilirubin, UA Positive Negative - 4(70) +++ mg/dL [facility] Comment on above: small Blood, UA Negative Negative - 50 Sherman/mcL [facility] Clarity, UA Clear [facility] Color, UA Yellow [facility] Glucose, UA Negative Negative - 2000(110) ++++ mg/dL [facility] Interpretation and review of laboratory results Abnormal [facility] Ketones, UA Positive Negative - 160(16) ++++ mg/dL [facility] Comment on above: trace Leukocytes, UA Positive Negative - 500+++ Jackie/mcL [facility] Comment on above: small Nitrite, UA Negative Negative - Positive [facility] pH, UA 6.5 5 - 9 [facility] Protein, UA Positive Negative - 2000(20) ++++ mg/dL [facility] Comment on above: 100mg/dL Spec Grav, UA 1.025 1 - 1.03 [facility] Urobilinogen, UA 1.0 0.2 - 12 mg/dL [facility] HCG ( test) Ql (U)o n 04-07-2024 Interpretation and review of laboratory results Abnormal [facility] Preg Test, Ur Positive Negative [facility] US OB TRANSVAGINALon 025 US OB TRANSVAGINAL [...] report is generated using voice recognition reporting (Quartix). On occasion Quartix erroneously drops words from the report or [...] UA Negative Negative - 4(70) +++ mg/dL [facility] Blood, UA Positive Negative - 50 Sherman/mcL [facility] Comment on above: trace Clarity, UA Clear [facility] Color, UA Yellow [facility] Glucose, UA Negative Negative - 2000(110) ++++ mg/dL [facility] Interpretation and review of laboratory results Abnormal [facility] Ketones, UA Positive Negative - 160(16) ++++ mg/dL [facility] Comment on above: trace Leukocytes, UA Trace Negative - 500+++ Jackie/mcL [facility] Nitrite, UA Negative Negative - Positive [facility] pH, UA 5.5 5 - 9 [facility] Protein, UA Trace Negative - 2000(20) ++++ mg/dL [facility] Spec Grav, UA 1.03 1 - 1.03 [facility] Urobilinogen, UA 0.2 0.2 - 12 mg/dL [facility] TBH PREG QUANT HCGon 024 HCG QUANTITATIVE 5 mIU/mL [facility] Comment on above: 5-50 0.2-1 WEEK 50-500 1-2 WEEKS 100-5,000 2-3 WEEKS 500-10,000 3-4 WEEKS 1,000-50,000 4-5 WEEKS 10,000-100,000 5-6 WEEKS 15,000-200,000 6-8 WEEKS 10,000-100,000 2-3 [facility] PREG QUANT HCGon 024 HCG QUANTITATIVE 16 mIU/mL [facility] Comment on above: 5-50 0.2-1 WEEK 50-500 1-2 WEEKS 100-5,000 2-3 WEEKS 500-10,000 3-4 WEEKS 1,000-50,000 4-5 WEEKS 10,000-100,000 5-6 WEEKS 15,000-200,000 6-8 WEEKS 10,000-100,000 2-3 [facility] PREG QUANT HCGon 024 HCG QUANTITATIVE 70 mIU/mL [facility] Comment on above: 5-50 0.2-1 WEEK 50-500 1-2 WEEKS 100-5,000 2-3 WEEKS 500-10,000 3-4 WEEKS 1,000-50,000 4-5 WEEKS 10,000-100,000 5-6 WEEKS 15,000-200,000 6-8 WEEKS 10,000-100,000 2-3 [facility] ALL CBC WITH AUTO DIFFon BASOPHILS ABSOLUTE AUTO 0.0 [facility] Basophils/100 WBC (Bld) 0.2 % 0.2 - 2.0 % [facility] Eosinophils/100 WBC (Bld) 0.7 % Low 0.9 - 7.0 % [facility] Erythrocyte distribution width (RBC) [Ratio] 13.3 % 11.0 - 15.0 % [facility] Hematocrit (Bld) [Volume fraction] 37.9 % 36.0 - 48.0 % [facility] Hemoglobin (Bld) [Mass/Vol] 13.0 g/dL 12.0 - 16.0 g/dL [facility] IMMATURE GRANULOCYTES ABS AUTO 0.03 [facility] Immature granulocytes/100 WBC (Bld) 0.3 % 0.0 - 0.5 % [facility] Interpretation and review of laboratory results Abnormal [facility] LYMPHOCYTES ABSOLUTE AUTO 1.7 [facility] Lymphocytes/100 WBC (Bld) 14.9 % Low 20.5 - 60.0 % [facility] MCH (RBC) [Entitic mass] 27.6 pg 26.7 - 34.0 pg [facility] MCHC (RBC) [Mass/Vol] 34.3 g/dL 29.9 - 35.2 g/dL [facility] MCV (RBC) [Entitic vol] 80.5 fL Low 81.0 - 99.0 fL [facility] MONOCYTES ABSOLUTE AUTO 0.6 [facility] Monocytes/100 WBC (Bld) 5.6 % 1.7 - 12.0 % [facility] NEUTROPHILS ABSOLUTE AUTO 8.7 High [facility] Neutrophils/100 WBC (Bld) 78.3 % High 43.0 - 75.0 % [facility] Platelet mean volume (Bld) [Entitic vol] 9.1 fL Low 9.5 - 13.5 fL [facility] TBH EO # 0.1 [facility]H PLT 297 [facility] TB RBC 4.71 [facility] WBC 11.1 High [facility] Leif 11-13-2023 L Specimen: [id number] Received: 11/16/23 Status: RUBINA Sharpe Num: [id number] Spec Type: Surgical Subm Dr: Newton Carter Tissues: A Products of Conception - Spontaneous or Missed (POC MOLAR Procedures: HE/3, Gross/Micro L4 Age/ Patient Sex Location Account Attending Physician Sarah Arce 23/F [id number] Newton Carter SPEC NUM: [id number] RECD: 11/16/23 STATUS: RUBINA SHARPE NUM: [id number] MARY: 11/13/[address]: Newton Carter ENTERED: 11/16/23 [facility] DR: Myriam,Lab SPEC TYPE: Surgical DEPT: TOBY WOOD ENTERED BY: [id number] RECV BY: [id number] ORDERED: HE/3, Gross/Micro L4 ORDERED: HE/3, Gross/Micro [...] the complete mole Clinical Information Molar Specimen: [id number] Received: 11/16/23 Status: RUBINA Sharpe Num: [id number] Spec Type: Surgical Subm Dr: Newton Carter Tissues: A Products of Conception - Spontaneous or Missed (POC MOLAR Procedures: , Gross/Micro L4 Patient: Arce,Amy [id number] (Continued) Specimen: [id number] Received: 11/16/23 (Continued) Signed (signature on file) Antonia Camarena MD 11/21/23 1057 Specimen: [id number] Received: 11/16/23 Status: RUBINA Sharpe Num: [id number] Spec Type: Surgical Subm Dr: Newton Carter Tissues: A Products of Conception - Spontaneous or Missed (POC MOLAR Procedures: HE/3, Gross/Micro L4 Patient: ClaudeSarah [id number] (Continued) Specimen: [id number] Received: 11/16/23 (Continued) Gross Description The specimen was received in formalin with the patient's name and products of conception and consists of multiple jasmine-pink hemorrhagic soft tissue fragments measuring 12.0 x 11.0 x 1.5 cm in aggregate. Multiple cystic structures are identified ranging in size from 0.1 to 0.5 cm. The cysts are filled with a clear fluid. [employer] sections of the cystic structures are submitted in cassettes A1-A3 DM Microscopic Description Microscopic examinations are performed supporting the above interpretation CPT Codes 57419 Specimen: [id number] Received: 11/16/23 Status: RUBINA Sharpe Num: [id number] Spec Type: Surgical Subm Dr: Newton Carter Tissues: A Products of Conception - Spontaneous or Missed (POC MOLAR Procedures: /3, Gross/Lisa L4 Patient: Sarah Arce [id number] (Continued) Signed (signature on file) Antonia Camarena MD 11/21/23 1424 Normal [facility] ALL CBC WITH AUTO DIFFon BASOPHILS ABSOLUTE AUTO 0.0 [facility] Basophils/100 WBC (Bld) 0.2 % 0.2 - 2.0 % [facility] Eosinophils/100 WBC (Bld) 1.3 % 0.9 - 7.0 % [facility] Erythrocyte distribution width (RBC) [Ratio] 13.3 % 11.0 - 15.0 % [facility] Hematocrit (Bld) [Volume fraction] 37.4 % 36.0 - 48.0 % [facility] Hemoglobin (Bld) [Mass/Vol] 12.6 g/dL 12.0 - 16.0 g/dL [facility] IMMATURE GRANULOCYTES ABS AUTO 0.02 [facility] Immature granulocytes/100 WBC (Bld) 0.2 % 0.0 - 0.5 % [facility] Interpretation and review of laboratory results Abnormal [facility] LYMPHOCYTES ABSOLUTE AUTO 1.4 [facility] Lymphocytes/100 WBC (Bld) 12.1 % Low 20.5 - 60.0 % [facility] MCH (RBC) [Entitic mass] 27.0 pg 26.7 - 34.0 pg [facility] MCHC (RBC) [Mass/Vol] 33.7 g/dL 29.9 - 35.2 g/dL [facility] MCV (RBC) [Entitic vol] 80.1 fL Low 81.0 - 99.0 fL [facility] MONOCYTES ABSOLUTE AUTO 0.7 [facility] Monocytes/100 WBC (Bld) 6.4 % 1.7 - 12.0 % [facility] NEUTROPHILS ABSOLUTE AUTO 9.2 High [facility] Neutrophils/100 WBC (Bld) 79.8 % High 43.0 - 75.0 % [facility] Platelet mean volume (Bld) [Entitic vol] 9.1 fL Low 9.5 - 13.5 fL [facility] TBH EO # 0.2 [facility] TB PLT 284 [facility] RBC 4.67 [facility] WBC 11.5 High [facility] Automated basophil %Ordered By: CHUCK Huitron on 04-30-2023 Basophils/100 WBC (Bld) 0.7 % Normal . [facility] Comment on above: Performed By: #### C BC, HCGQNT #### [facility] [address] Automated basophil countOrde red By: CHUCK Huitron on 04-30-2023 Basophils (Bld) [#/Vol] 0.1 10*3/uL Normal 0.0-0.2 [facility] Comment on above: Result Comment: PERF ORMED BY: [place] [address] PATHOLOGIST PEDIATRIC NEPHROLOGIST CHUY PALOMO M.D. Performed By: #### C BC, HCGQNT #### [address] Automated blood monocyte cou ntOrdered By: CHUCK Huitron on 04-30-2023 Monocytes (Bld) [#/Vol] 0.5 10*3/uL Normal 0.0-0.8 [facility] Comment on above: Performed By: #### C BC, HCGQNT #### [address] Automated eosinophil %Ordere d By: CHUCK Huitron on 04-30-2023 Eosinophils/100 WBC (Bld) 1.3 % Normal . [facility] Comment on above: Performed By: #### C BC, HCGQNT #### [address] Automated eosinophil countOr dered By: CHUCK Huitron on 04-30-2023 Eosinophils (Bld) [#/Vol] 0.1 10*3/uL Normal 0.0-0.45 [facility] Comment on above: Performed By: #### C BC, HCGQNT #### [address] Automated monocyte %Ordered By: CHUCK Huitron on 04-30-2023 Monocytes/100 WBC (Bld) 6.3 % Normal . [facility] Comment on above: Performed By: #### C BC, HCGQNT #### [address] Automated neutrophil %Ordere d By: CHUCK Huitron on 04-30-2023 Neutrophils/100 WBC (Bld) 63.0 % Normal . [facility] Comment on above: Performed By: #### C BC, HCGQNT #### [address] Choriogonadotropin.beta subu nit [Units/volume] in Serum or PlasmaOrdered By: SHANNON Huitron on 04-30-2023 HCG.beta subunit Qn 2358.00 m[IU]/mL [facility] Comment on above: Approximate Approxim ate hCG Gestational Age Range (mIU/ml) (weeks)0.2-1 5-50 1-2 50-500 2-3 100-5,000 3-4 500-10,000 4-5 1,000-50,000 5-6 10,000-100,000 6-8 15,000-200,000 8-12 10,000-100,000 Complete Blood Count Auto Di ffon 04-30-2023 Mean Corpuscular HGB Conc 34.7 g/dL Normal 32.0-35.0 [facility] Comment on above: Performed By: #### C BC, HCGQNT #### [address] NRBC% 0.1 /100{WBC} Normal 0-0.5 [facility] Comment on above: Performed By: #### C BC, HCGQNT #### [address] Erythrocyte distribution wid th [Ratio] by Automated countOrdered By: CHUCK Huitron on 04-30-2023 Erythrocyte distribution width (RBC) [Ratio] 14.1 % Normal 11.9-15.3 [facility] Comment on above: Performed By: #### C BC, HCGQNT #### [address] Erythrocytes [#/volume] in B lood by Automated countOrdered By: CHUCK Huitron on 04-30-2023 RBC (Bld) [#/Vol] 4.40 10*6/uL Normal 3.60-5.00 [facility] Comment on above: Performed By: #### C BC, HCGQNT #### [address] HCG,Quantitativeon HCG,Quantitative 2358.00 m[iU]/mL Normal Th e [facility] Comment on above: Result Comment: Appr oximate Approximate hCG Gestational Age Range (mIU/ml) (weeks) 0.2-1 5-50 1-2 50-500 2-3 100-5,000 3-4 500-10,000 4-5 1,000-50,000 5-6 10,000-100,000 6-8 15,000-200,000 8-12 10,000-100,000 PERFORMED BY: [place] [address] PATHOLOGIST PEDIATRIC NEPHROLOGIST CHUY PALOMO M.D. Performed By: #### C BC, HCGQNT #### [facility] [address] [place] [address] Hematocrit [Volume Fraction] of Blood by Automated countOrdered By: CHUCK Huitron on 04-30-2023 Hematocrit (Bld) [Volume fraction] 35.3 % Normal 34.0-46.4 [facility] Comment on above: Performed By: #### C BC, HCGQNT #### [facility] [address] [place] [address] Hemoglobin [Mass/volume] in BloodOrdered By: CHUCK Huitron on 04-30-2023 Hemoglobin (Bld) [Mass/Vol] 12.2 g/dL Normal 11.8-15.4 [facility] Comment on above: Performed By: #### C BC, HCGQNT #### [facility] [address] [place] [address] [place] Leif 04-30-2023 L Specimen: [id number] Received: 04/30/23 Status: RUBINA Sharpe Num: [id number] Spec Type: Surgical Subm Dr: CHUCK Astorga Tissues: A Products of Conception - Spontaneous or Missed (PRODUCTS OF CONCEPT Procedures: HE/3, Gross/Micro L4 Age/ Patient Sex Location Account Attending Physician Sarah Arce 23/F N3 [id number] CHUCK Astorga SPEC NUM: [id number] RECD: 04/30/23 STATUS: RUBINA SHARPE NUM: [id number] MARY: 04/30/23- SUBM DR: CHUCK Astorga ENTERED: 04/30/23 [facility] [...] is tentatively identified. tissue is not identified. [employer]ice sections focused on potential villi. [employer] App[employer]ice sections are submitted in three cassettes labeled A1-A3. CPT Codes 07902 Specimen: [id number] Received: 04/30/23 Status: RUBINA Sharpe Num: [id number] Spec Type: Surgical Subm Dr: CHUCK Astorga Tissues: A Products of Conception - Spontaneous or Missed (PRODUCTS OF CONCEPT Procedures: HE/3, Gross/Micro L4 Patient: Sarah Arce [id number] (Continued) Signed (signature on file) Tavia Abad MD 05/05/23 2315 Normal [facility] Leukocytes [#/volume] correc bridget for nucleated erythrocytes in Blood by Automated counOrdered By: CHUCK Huitron on 04-30-2023 WBC corrected for nucl RBC Auto (Bld) [#/Vol] 8.4 10*3/uL 3.8-11.6 [facility] Leukocytes [#/volume] in Blo od by Automated countOrdered By: CHUCK Huitron on 04-30-2023 WBC (Bld) [#/Vol] 8.4 10*3/uL Normal 3.8-11.6 [facility] Comment on above: Performed By: #### Tyra DELONG HCGQNT #### [facility] [address] [place] [address] Lymphocytes [#/volume] in Bl ood by Automated countOrdered By: CHUCK Huitron on 04-30-2023 Lymphocytes (Bld) [#/Vol] 2.4 10*3/uL Normal 1.00-4.8 [facility] Comment on above: Performed By: #### C SINDI HCGQNT #### [facility] [address] [place] [address] [place] Lymphocytes/100 leukocytes i n Blood by Automated countOrdered By: CHUCK Huitron on 04-30-2023 Lymphocytes/100 WBC (Bld) 28.7 % Normal . [facility] Comment on above: Performed By: #### C SINDI, HCGQNT #### [address] MCH [Entitic mass] by Automa bridget countOrdered By: CHUCK Huitron on 04-30-2023 MCH (RBC) [Entitic mass] 27.8 pg Normal 24.7-34.3 [facility] Comment on above: Performed By: #### C BC, HCGQNT #### [address] MCHC Auto (RBC) [Mass/Vol]Or dered By: CHUCK Huitron on 04-30-2023 MCHC (RBC) [Mass/Vol] 34.7 g/dL 32.0-35.0 [facility] MCV [Entitic volume] by Auto mated countOrdered By: CHUCK Huitron on 04-30-2023 MCV (RBC) [Entitic vol] 80.2 fL Normal 80-100 [facility] Comment on above: Performed By: #### C SINDI, HCGQNT #### [address] Neutrophils [#/volume] in Bl ood by Automated countOrdered By: CHUCK Huitron on 04-30-2023 Neutrophils (Bld) [#/Vol] 5.3 10*3/uL Normal 1.8-7.7 [facility] Comment on above: Performed By: #### C BC, HCGQNT #### [place] [address] [place] Nucleated erythrocytes [Pres ence] in Blood by Automated countOrdered By: CHUCK Huitron on 04-30-2023 Nucleated RBC Auto Ql (Bld) 0.1 /100{WBC} 0-0.5 [facility] Platelet mean volume [Entiti c volume] in Blood by Automated countOrdered By: SHANNON Huitron on 04-30-2023 Platelet mean volume (Bld) [Entitic vol] 6.7 fL Normal 6.3-10.7 [facility] Comment on above: Performed By: #### C BC, HCGQNT #### [address] [place] [address] [facility] Platelets [#/volume] in Bloo d by Automated countOrdered By: CHUCK Huitron on 04-30-2023 Platelets (Bld) [#/Vol] 317 10*3/uL Normal 150-450 [facility] Comment on above: Performed By: #### C BC, HCGQNT #### [facility] [address] [place] [id number] [facility] US transvaginalon 04-30-2023 US transvaginal [facility] [place] [address] [place] [address] Ultrasound Report Signed Patient: Sarah Arce MR#: [id number] : 2000 Acct:[id number] Age/Sex: 23 / F ADM Date: 04/29/23 Loc: Room: [address] [place] [address] Type: REG CLI Attending Dr: Dawn Huitron MD Ordering Provider: CHUCK Astorga Date of Service: 04/30/23 US/US pelvic complete: D and C scheduled ([id number]) US/US transvaginal: PRODUCTS OF CONCEPTION WITH PRIOR [...] Usama Peña M.D.04/30/2023 9:37 AM Dictation Location: [place] [address] Tech: Anca Horn Transcribed By: GISSEL 04/30/2337 Dictated By: Usama Peña DO 04/30/23 0933 Signed By: 04/30/2337 Normal [facility] ABO/Rh Retypeon 04-29-2023 ABO/RH Recheck Result Positive Normal [facility] Comment on above: Result Comment: PERF ORMED BY: [place] [address] PATHOLOGIST PEDIATRIC NEPHROLOGIST CHUY PALOMO M.D. Complete Blood Count Auto Di ffon 04-29-2023 Basophils (Bld) [#/Vol] 0.0 10*3/uL Normal 0.0-0.2 [facility] Comment on above: Result Comment: PERF ORMED BY: [place] [address] PATHOLOGIST PEDIATRIC NEPHROLOGIST CHUY PALOMO M.D. Performed By: #### H CGQNT, CBC #### [address] Basophils/100 WBC (Bld) 0.3 % Normal . [facility] Comment on above: Performed By: #### H CGQNT, CBC #### [address] Eosinophils (Bld) [#/Vol] 0.2 10*3/uL Normal 0.0-0.45 [facility] Comment on above: Performed By: #### H CGQNT, CBC #### [address] Eosinophils/100 WBC (Bld) 1.1 % Normal . [facility] Comment on above: Performed By: #### H CGQNT, CBC #### [address] Erythrocyte distribution width (RBC) [Ratio] 13.9 % Normal 11.9-15.3 [facility] Comment on above: Performed By: #### H CGQNT, CBC #### [address] Hematocrit (Bld) [Volume fraction] 39.8 % Normal 34.0-46.4 [facility] Comment on above: Performed By: #### H CGQNT, CBC #### [place] [id number] [place] Hemoglobin (Bld) [Mass/Vol] 13.3 g/dL Normal 11.8-15.4 [facility] Comment on above: Performed By: #### H CGQNT, CBC #### [address] Lymphocytes (Bld) [#/Vol] 2.3 10*3/uL Normal 1.00-4.8 [facility] Comment on above: Performed By: #### H CGQNT, CBC #### [address] Lymphocytes/100 WBC (Bld) 17.0 % Normal . [facility] Comment on above: Performed By: #### H CGQNT, CBC #### [address] MCH (RBC) [Entitic mass] 27.0 pg Normal 24.7-34.3 [facility] Comment on above: Performed By: #### H CGQNT, CBC #### [address] MCV (RBC) [Entitic vol] 80.8 fL Normal 80-100 [facility] Comment on above: Performed By: #### H CGQNT, CBC #### [address] Mean Corpuscular HGB Conc 33.5 g/dL Normal 32.0-35.0 [facility] Comment on above: Performed By: #### H CGQNT, CBC #### [place] [address] [place] Monocytes (Bld) [#/Vol] 0.5 10*3/uL Normal 0.0-0.8 [facility] Comment on above: Performed By: #### H CGQNT, CBC #### [address] Monocytes/100 WBC (Bld) 4.0 % Normal . [facility] Comment on above: Performed By: #### H CGQNT, CBC #### [address] [place] [address] [place] Neutrophils (Bld) [#/Vol] 10.6 10*3/uL High 1.8-7.7 [facility] Comment on above: Performed By: #### H CGQNT, CBC #### [facility] [address] Neutrophils/100 WBC (Bld) 77.6 % Normal . [facility] Comment on above: Performed By: #### H CGQNT, CBC #### [facility] [address] NRBC% 0.2 /100{WBC} Normal 0-0.5 [facility] Comment on above: Performed By: #### H CGQNT, CBC #### [address] Platelet mean volume (Bld) [Entitic vol] 7.0 fL Normal 6.3-10.7 [facility] Comment on above: Performed By: #### H CGQNT, CBC #### [place] [address] [place] Platelets (Bld) [#/Vol] 369 10*3/uL Normal 150-450 [facility] Comment on above: Performed By: #### H CGQNT, CBC #### [address] RBC (Bld) [#/Vol] 4.93 10*6/uL Normal 3.60-5.00 [facility] Comment on above: Performed By: #### H CGQNT, CBC #### [place] [address] [place] WBC (Bld) [#/Vol] 13.6 10*3/uL High 3.8-11.6 [facility] Comment on above: Performed By: #### H CGQNT, CBC #### [address] HCG,Quantitativeon 4 HCG,Quantitative 3230.00 m[iU]/mL Normal Th e [facility] Comment on above: Result Comment: Appr oximate Approximate hCG Gestational Age Range (mIU/ml) (weeks) 0.2-1 5-50 1-2 50-500 2-3 100-5,000 3-4 500-10,000 4-5 1,000-50,000 5-6 10,000-100,000 6-8 15,000-200,000 8-12 10,000-100,000 PERFORMED BY: [place] [address] PATHOLOGIST PEDIATRIC NEPHROLOGIST CHUY PALOMO M.D. Performed By: #### H CGQNT, CBC #### [address] Type and Screenon 04-29-2023 ABO and Rh group Nom (Bld) Blood group A Rh(D) positive Normal [facility] Leif 04-24-2023 L Specimen: [id number] Received: 04/24/23 Status: RUBINA Sharpe Num: [id number] Spec Type: Surgical Subm Dr: Dawn Huitron MD-ADANS Tissues: A Products of Conception - Spontaneous or Missed (POC) Procedures: HE/3, Gross/Micro L4 Age/ Patient Sex Location Account Attending Physician Sarah Arce 23/F [place] [id number] MICHELE AstorgaS SPEC NUM: [id number] RECD: 04/24/23 STATUS: RUBINA SHARPE NUM: [id number] MARY: 04/24/23- SUBM DR: SHANNON AstorgaNOMS ENTERED: 04/24/23 [facility] DR: SPEC TYPE: Surgical DEPT: S ENTERED BY: [id number] RECV BY: [id number] ORDERED: HE/3, Gross/Micro L4 ORDERED: HE/3, Gross/Micro [...] foot length of 0.7 cm from heel-to-toe. Structural [employer] App[employer]ice sections are submitted in 3 cassettes as follows: A1-A2 - Villous tissue A3 - tissue CPT Codes 95618 Specimen: [id number] Received: 04/24/23 Status: RUBINA Sharpe Num: [id number] Spec Type: Surgical Subm Dr: Dawn Huitron MD-NOMS Tissues: A Products of Conception - Spontaneous or Missed (POC) Procedures: RYAN/Jerel, Gross/Micro L4 Patient: Sarah Arce [id number] (Continued) Signed (signature on file) Tavia Abad MD 04/28/23 2321 Normal [facility] CBC AUTO DIFFon 10-02-2020 BASO # 0.0 103/ul Normal 0.0-0.1 [facility] Comment on above: Performed By: #### U MICRO, UACSIND #### [facility] [address] [place] [address] Vandana Indira Basophils/100 WBC (Bld) 0.1 % Critically low 0.2-2.0 [facility] Comment on above: Performed By: #### U MICRO, UACSIND #### [facility] [address] [place] [address] Vandanadave Jacobson EO # 0.0 103/ul Normal 0.0-0.7 [facility] Comment on above: Performed By: #### U MICRO, UACSIND #### [facility] [address] [place] [address] Vandana Jacobson Eosinophils/100 WBC (Bld) 0.0 % Critically low 0.9-7.0 [facility] Comment on above: Performed By: #### U MICRO, UACSIND #### [facility] [address] [place] [address] Vandana Jacobson Erythrocyte distribution width (RBC) [Ratio] 15.9 % Critically high 11.0-15.0 [facility] Comment on above: Performed By: #### U MICRO, UACSIND #### [facility] [address] [place] [address] Vandana Jacobson Hematocrit (Bld) [Volume fraction] 33.3 % Critically low 36.0-48.0 [facility] Comment on above: Performed By: #### U MICRO, UACSIND #### [facility] [address] [place], [place] [id number] Vandanadave Jacobson Hemoglobin (Bld) [Mass/Vol] 11.2 g/dL Critically low 12.0-16.0 [facility] Comment on above: Performed By: #### U MICRO, UACSIND #### [facility] [address] [place] [address] Vandana Indira IG # 0.07 10e3/ul Critically high 0.00-0.03 [facility] Comment on above: Performed By: #### U MICRO, UACSIND #### [facility] [address] [place] [id number] Vandana Indira IG % 0.4 % Normal 0.0-0.5 [facility] Comment on above: Performed By: #### U MICRO, UACSIND #### [facility] [address] [place] [address] Vandana Indira LYMPH # 1.9 103/ul Normal 1.2-3.8 The [facility] Comment on above: Performed By: #### U MICRO, UACSIND #### [facility] [address] [place] [address] Vandana Jacobson Lymphocytes/100 WBC (Bld) 11.4 % Critically low 20.5-60.0 The [facility] Comment on above: Performed By: #### U MICRO, UACSIND #### [facility] [address] [place], [place] [id number] Vandana Jacobson MANUAL DIFF REQ NO Normal [facility] Comment on above: Performed By: #### U MICRO, UACSIND #### [facility] [address] [place], [place] [id number] Vandana Jacobson MCH (RBC) [Entitic mass] 27.7 pg Normal 26.7-34.0 The [facility] Comment on above: Performed By: #### U MICRO, UACSIND #### [facility] [address] [place] [address] Vanadna Jacobson MCHC (RBC) [Mass/Vol] 33.6 g/dL Normal 29.9-35.2 The [facility] Comment on above: Performed By: #### U MICRO, UACSIND #### [facility] [address] [place], [place] [id number] Vandana Jacobson MCV (RBC) [Entitic vol] 82.4 fL Normal 81.0-99.0 The [facility] Comment on above: Performed By: #### U MICRO, UACSIND #### [facility] [address] [place] [id number] Vandana Indira MONO # 1.0 103/ul Critically high 0.3-0.8 [facility] Comment on above: Performed By: #### U MICRO, UACSIND #### [facility] [address] [place] [phone] Vandana Indira Monocytes/100 WBC (Bld) 6.3 % Normal 1.7-12.0 The [facility] Comment on above: Performed By: #### U MICRO, UACSIND #### [facility] [address] [place] [address] Vandana Indira NEUT # 13.4 103/ul Critically high 1.4-6.5 The [facility] Comment on above: Performed By: #### U MICRO, UACSIND #### [facility] [address] [place] [address] Vandana Indira Neutrophils/100 WBC (Bld) 81.8 % Critically high 43.0-75.0 The [facility] Comment on above: Performed By: #### U MICRO, UACSIND #### [facility] [address] [place] [id number] Vandana Lien Platelet mean volume (Bld) [Entitic vol] 10.3 fL Normal 9.5-13.5 The [facility] Comment on above: Performed By: #### U MICRO, UACSIND #### [facility] [address] [place] [phone] Vandana Indira PLT 202 103/ul Normal 150-450 The [facility] Comment on above: Performed By: #### U MICRO, UACSIND #### [facility] [address] [place] [address] Vandana Indira RBC 4.04 106/ul Critically low 4.20-5.40 [facility] Comment on above: Performed By: #### U MICRO, UACSIND #### [facility] [address] [place] [phone] Vandana Indira WBC 16.4 103/ul Critically high 4.0-11.0 The [facility] Comment on above: Performed By: #### U MICRO, UACSIND #### [facility] [address] [place] [address] Vandana Jacobson ASYMPTOMATIC COVID-19 ANTIGE Non 10-01-2020 EUA Statement SEE BELOW Normal The [facility] Comment on above: Result Comment: [...] sooner. Performed By: #### C VDAGA #### [facility] [address] [place] [address] Vandana Jacobson SARS-CoV-2 (COVID-19) RNA RAMA+probe Ql (Unsp spec) Negative Normal NEGATIVE [facility] Comment on above: Result Comment: Nega tive results are presumptive. They do not preclude infection and should not be used as the sole basis for treatment decisions. Additional confirmatory testing by a molecular method should be considered. Performed By: #### C VDAGA #### [facility] [address] [place] [address] Vandana Jacobson CBC AUTO DIFFon 10-01-2020 BASO # 0.0 103/ul Normal 0.0-0.1 [facility] Comment on above: Performed By: #### D RUGRPD #### [facility] [address] [place], [place] [id number] Vandana Jacobson Basophils/100 WBC (Bld) 0.1 % Critically low 0.2-2.0 [facility] Comment on above: Performed By: #### D RUGRPD #### [facility] [address] [place], [place] [address] Vandana Indira EO # 0.0 103/ul Normal 0.0-0.7 [facility] Comment on above: Performed By: #### D JESID #### [facility] [address] [place], [place] [id number] Vandana Indira Eosinophils/100 WBC (Bld) 0.1 % Critically low 0.9-7.0 The [facility] Comment on above: Performed By: #### D JESID #### [facility] [address] [place] [address] Vandana Indira Erythrocyte distribution width (RBC) [Ratio] 15.8 % Critically high 11.0-15.0 The [facility] Comment on above: Performed By: #### D JUDI #### [facility] [address] [place] [address] Vandana Indira Hematocrit (Bld) [Volume fraction] 40.2 % Normal 36.0-48.0 [facility] Comment on above: Performed By: #### D JUDI #### [facility] [address] [place] [address] Vandana Indira Hemoglobin (Bld) [Mass/Vol] 13.4 g/dL Normal 12.0-16.0 The [facility] Comment on above: Performed By: #### D JUDI #### [facility] [address] [place] [address] Vandana Indira IG # 0.04 10e3/ul Critically high 0.00-0.03 [facility] Comment on above: Performed By: #### D JUDI #### [facility] [address] [place] [address] Vandana Indira IG % 0.4 % Normal 0.0-0.5 The [facility] Comment on above: Performed By: #### D JESID #### [facility] [address] [place] [address] Vandana Indira LYMPH # 1.5 103/ul Normal 1.2-3.8 The [facility] Comment on above: Performed By: #### D JUDI #### [facility] [address] [place] [address] Vandana Jacobson Lymphocytes/100 WBC (Bld) 14.7 % Critically low 20.5-60.0 The [facility] Comment on above: Performed By: #### D JUDI #### [facility] [address] [place], [place] [id number] Vandana Jacobson MANUAL DIFF REQ NO Normal [facility] Comment on above: Performed By: #### D JUDI #### [facility] [address] [place], [place] [id number] Vandana Jacobson MCH (RBC) [Entitic mass] 27.3 pg Normal 26.7-34.0 The [facility] Comment on above: Performed By: #### D JUDI #### [facility] [address] [place] [address] Vandana Jacobson MCHC (RBC) [Mass/Vol] 33.3 g/dL Normal 29.9-35.2 The [facility] Comment on above: Performed By: #### D JUDI #### [facility] [address] [place] [address] Vandana Lien MCV (RBC) [Entitic vol] 82.0 fL Normal 81.0-99.0 The [facility] Comment on above: Performed By: #### D JUDI #### [facility] [address] [place] [address] Vandana Jacobson MONO # 0.5 103/ul Normal 0.3-0.8 The [facility] Comment on above: Performed By: #### D JUDI #### [facility] [address] [place] [address] Vandana Lien Monocytes/100 WBC (Bld) 5.2 % Normal 1.7-12.0 The [facility] Comment on above: Performed By: #### D JUDI #### [facility] [address] [place], [place] [id number] Vandana Indira NEUT # 8.1 103/ul Critically high 1.4-6.5 [facility] Comment on above: Performed By: #### D JUDI #### [facility] [address] [place] [address] Vandana Jacobson Neutrophils/100 WBC (Bld) 79.5 % Critically high 43.0-75.0 [facility] Comment on above: Performed By: #### D RUGRPD #### [facility] [address] [place] [address] Vandana Jacobson Platelet mean volume (Bld) [Entitic vol] 10.6 fL Normal 9.5-13.5 The [facility] Comment on above: Performed By: #### D RUGRPD #### [facility] [address] [place] [address] Vandanadave Lien PLT 256 103/ul Normal 150-450 The [facility] Comment on above: Performed By: #### D RUGRPD #### [facility] [address] [place] [address] Vandana Indira RBC 4.90 106/ul Normal 4.20-5.40 The [facility] Comment on above: Performed By: #### D RUGRPD #### [facility] [address] [place] [address] Vandanadave Jacobson WBC 10.2 103/ul Normal 4.0-11.0 The [facility] Comment on above: Performed By: #### D RUGRPD #### [facility] [address] [place] [address] Vandana Jacobson DRUG SCREEN RAPID (URINE)on 10-01-2020 AMP Negative Normal NEGATIVE The [facility] Comment on above: Performed By: #### D RUGRPD #### [facility] [address] [place] [address] Vandana Indira BAR Negative Normal NEGATIVE The [facility] Comment on above: Performed By: #### D RUGRPD #### [facility] [address] [place], [place] [id number] Vandana Indira BUP Negative Normal NEGATIVE The [facility] Comment on above: Performed By: #### D RUGRPD #### [facility] [address] [place] [address] Vandana Indira BZO Negative Normal NEGATIVE The [facility] Comment on above: Performed By: #### D RUGRPD #### [facility] [address] [place] [address] Vandana Indira ROLANDA Negative Normal NEGATIVE The [facility] Comment on above: Performed By: #### D RUGRPD #### [facility] [address] [place] [address] Vandana Indira CUT-OFFS SEE BELOW Normal [facility] Comment on above: Result Comment: [...] ng/mL Performed By: #### D RUGRPD #### [facility] [address] [place] [address] Vandana Indira DRUG CUT HEADER DRUG CLASS TEST SYSTEM CUT-OFF CONCENTRATIONS ARE FOLLOWS: Normal The [facility] Comment on above: Performed By: #### D RUGRPD #### [facility] [address] [place] [address] Vandana Indira mAMP Negative Normal NEGATIVE The [facility] Comment on above: Performed By: #### D RUGRPD #### [facility] [address] [place] [address] Vandana Indira MTD Negative Normal NEGATIVE The [facility] Comment on above: Performed By: #### D RUGRPD #### [facility] [address] [place] [address] Vandana Indira OPI Negative Normal NEGATIVE The [facility] Comment on above: Performed By: #### D RUGRPD #### [facility] [address] [place] [address] Vandana Indira OXY Negative Normal NEGATIVE The [facility] Comment on above: Performed By: #### D RUGRPD #### [facility] [address] [place], [place] [address] Vandana Indira PCP Negative Normal NEGATIVE [facility] Comment on above: Performed By: #### D RUGRPD #### [facility] [address] [place], [place] [address] Vandana Indira PPX Negative Normal NEGATIVE [facility] Comment on above: Performed By: #### D RUGRPD #### [facility] [address] [place] [id number] Vandana Indira TCA Negative Normal NEGATIVE [facility] Comment on above: Performed By: #### D RUGRPD #### [facility] [address] [place] [id number] Vandana Indira THC Negative Normal NEGATIVE [facility] Comment on above: Performed By: #### D RUGRPD #### [facility] [address] [place] [address] Vandana Indira TYPE AND SCREENon 10-01-2020 TYPE AND SCREEN Negative Normal [facility] Comment on above: Performed By: #### D RUGRPD #### [facility] [address] [place] [address] Vandana Indira US PREG GROWTHon 09-12-2020 US [...] EFW: 6 lbs. 13 oz., 58% FL/AC: [id number] FL/BPD: 0.125615 HC/AC: 0.886368 GESTATIONAL AGE: Age by EDC: 36 weeks 6 days YUE by EDC: 10/04/2020 Age by US: 37 weeks 0 days YUE by US: 10/03/2020 IMPRESSION: Normal interval growth Electronically authenticated by: KECIA LEI Date: 2020-09-12 13:13 Normal [facility] HEMOGLOBINOPATHY FRACTIONATI ON CASCADEon 09-11-2020 HGB A 97.4 % Normal 96.4-98.8 [facility] Comment on above: Performed By: #### U MICRO, UACSIND #### [facility] [address] [place] [id number] Vandana Indira HGB A2 2.6 % Normal 1.8-3.2 The [facility] Comment on above: Performed By: #### U MICRO, UACSIND #### [facility] [address] [place] [id number] Vandana Indira HGB F 0.0 % Normal 0.0-2.0 The [facility] Comment on above: Performed By: #### U MICRO, UACSIND #### [facility] [address] [place] [id number] Vandana Indira HGB S 0.0 % Normal 0.0 The [facility] Comment on above: Performed By: #### U MICRO, UACSIND #### [facility] [address] [place], [place] [address] Vandana Indira Interpretation: Comment Normal [facility] Comment on above: Result Comment: Norm al hemoglobin present; no hemoglobin variant or thalassemia observed. Performed By: #### U MICRO, UACSIND #### [facility] [address] [place] [id number] Vandana Indira CBC AUTO DIFFon 09-10-2020 BASO # 0.0 103/ul Normal 0.0-0.1 The [facility] Comment on above: Performed By: #### C BC #### [facility] [address] [place], [place] [address] Vandana Indira Basophils/100 WBC (Bld) 0.1 % Critically low 0.2-2.0 The [facility] Comment on above: Performed By: #### C BC #### [facility] [address] [place] [id number] Vandana Indira EO # 0.0 103/ul Normal 0.0-0.7 The [facility] Comment on above: Performed By: #### C BC #### [facility] [address] [place], [place] [address] Vandana Indira Eosinophils/100 WBC (Bld) 0.4 % Critically low 0.9-7.0 [facility] Comment on above: Performed By: #### C BC #### [facility] [address] [place], [place] [id number] Vandana Indira Erythrocyte distribution width (RBC) [Ratio] 16.0 % Critically high 11.0-15.0 [facility] Comment on above: Performed By: #### C BC #### [facility] [address] [place], [place] [id number] Vandana Indira Hematocrit (Bld) [Volume fraction] 36.5 % Normal 36.0-48.0 [facility] Comment on above: Performed By: #### C BC #### [facility] [address] [place], [place] [id number] Vandana Indira Hemoglobin (Bld) [Mass/Vol] 12.2 g/dL Normal 12.0-16.0 [facility] Comment on above: Performed By: #### C BC #### [facility] [address] [place], [place] [address] Vandana Indira IG # 0.07 10e3/ul Critically high 0.00-0.03 [facility] Comment on above: Performed By: #### C BC #### [facility] [address] [place], [place] [address] Vandana Indira IG % 0.9 % Critically high 0.0-0.5 [facility] Comment on above: Performed By: #### C BC #### [facility] [address] [place], [place] [address] Vandana Indira LYMPH # 1.9 103/ul Normal 1.2-3.8 The [facility] Comment on above: Performed By: #### C BC #### [facility] [address] [place], [place] [address] Vandana Indira Lymphocytes/100 WBC (Bld) 23.7 % Normal 20.5-60.0 [facility] Comment on above: Performed By: #### C BC #### [facility] [address] [place], [place] [address] Vandana Indira MANUAL DIFF REQ NO Normal [facility] Comment on above: Performed By: #### C BC #### [facility] [address] [place], [place] [id number] Vandanadave Jacobson MCH (RBC) [Entitic mass] 27.4 pg Normal 26.7-34.0 [facility] Comment on above: Performed By: #### C BC #### [facility] [address] [place] [address] Vandanadave Jacobson MCHC (RBC) [Mass/Vol] 33.4 g/dL Normal 29.9-35.2 The [facility] Comment on above: Performed By: #### C BC #### [facility] [address] [place] [address] Vandanadave Lien MCV (RBC) [Entitic vol] 82.0 fL Normal 81.0-99.0 The [facility] Comment on above: Performed By: #### C BC #### [facility] [address] [place] [address] Vandana Indira MONO # 0.7 103/ul Normal 0.3-0.8 [facility] Comment on above: Performed By: #### C BC #### [facility] [address] [place] [address] Vandaan Indira Monocytes/100 WBC (Bld) 8.8 % Normal 1.7-12.0 [facility] Comment on above: Performed By: #### C BC #### [facility] [address] [place] [address] Vandana Indira NEUT # 5.3 103/ul Normal 1.4-6.5 [facility] Comment on above: Performed By: #### C BC #### [facility] [address] [place], [place] [id number] Vandana Indira Neutrophils/100 WBC (Bld) 66.1 % Normal 43.0-75.0 The [facility] Comment on above: Performed By: #### C BC #### [facility] [address] [place] [address] Vandana Jacobson Platelet mean volume (Bld) [Entitic vol] 11.6 fL Normal 9.5-13.5 The [facility] Comment on above: Performed By: #### C BC #### [facility] [address] [place] [address] Vandana Jacobson PLT 221 103/ul Normal 150-450 [facility] Comment on above: Performed By: #### C BC #### [facility] [address] [place] [address] Vandana Jacobson RBC 4.45 106/ul Normal 4.20-5.40 The [facility] Comment on above: Performed By: #### C BC #### [facility] [address] [place] [address] Vandana Jacobson WBC 8.1 103/ul Normal 4.0-11.0 [facility] Comment on above: Performed By: #### C BC #### [facility] [address] [place] [address] Vandana Jacobson VAGINITIS/VAGINOSIS DNA PROB Miller 09-08-2020 Antonino species Negative Normal Negative [facility] Comment on above: Performed By: #### V AGINT #### [facility] [address] [place] [address] Vandana Jacobson Gardnerella vaginalis Negative Normal Negative The [facility] Comment on above: Performed By: #### V AGINT #### [facility] [address] [place] [address] Vandana Jacobson Trichomonas vaginalis Negative Normal Negative The [facility] Comment on above: Performed By: #### V AGINT #### [facility] [address] [place] [address] Vandana Jacobson CHLAMYDIA/GONOCOCCUS RAMA (SW AB/URINE/PAPon 09-07-2020 Chlamydia trachomatis, RAMA Negative Normal Negative The [facility] Comment on above: Performed By: #### D RUGRPD #### [facility] [address] [place] [address] Vandana Jacobson Neisseria gonorrhoeae, RAMA Negative Normal Negative The [facility] Comment on above: Performed By: #### D RUGRPD #### [facility] [address] [place] [address] Vandanadave Jacobson GROUP B STREP CULTUREon S. agalactiae Ag Ql (Unsp spec) Culture Observations: NEGATIVE FOR GROUP B STREPTOCOCCUS. Normal The [facility] Comment on above: Performed By: #### D RUGRPD #### [facility] [address] [place] [address] Vandana Indira CULTURE URINEon 08-31-2020 CULTURE URINE Culture Observations: LIGHT GROWTH OF MIXED GENITAL TEDDY. NO POTENTIAL PATHOGENS SEEN. Normal The [facility] Comment on above: Performed By: #### D RUGRPD #### [facility] [address] [place] [address] Vandana Indira UA (CLEAN/CATCH) DRY PLACER MACHINE OPERATOR/MICRO I F IND.on 08-31-2020 Bilirubin Ql (U) Negative Normal NEGATIVE [facility] Comment on above: Performed By: #### U MICRO, UACSIND #### [facility] [address] [place] [address] Vandana Indira Clarity (U) SL CLOUDY Abnormal CLEAR The [facility] Comment on above: Performed By: #### U MICRO, UACSIND #### [facility] [address] [place] [address] Vandana Indira Color (U) LT. YELLOW Normal YELLOW The [facility] Comment on above: Performed By: #### U MICRO, UACSIND #### [facility] [address] [place] [address] Vandana Indira Glucose Ql (U) Negative Normal NEGATIVE [facility] Comment on above: Performed By: #### U MICRO, UACSIND #### [facility] [address] [place] [address] Vandana Indira Hemoglobin Ql (U) Negative Normal NEGATIVE [facility] Comment on above: Performed By: #### U MICRO, UACSIND #### [facility] [address] [place] [address] Vandana Indira Ketones Ql (U) 15 mg/dl Abnormal NEGATIVE [facility] Comment on above: Performed By: #### U MICRO, UACSIND #### [facility] [address] [place] [address] Vandana Indira LEUKOCYTES SMALL Abnormal NEGATIVE The [facility] Comment on above: Performed By: #### U MICRO, UACSIND #### [facility] [address] [place] [address] Vandana Indira Nitrite Ql (U) Negative Normal NEGATIVE [facility] Comment on above: Performed By: #### U MICRO, UACSIND #### [facility] [address] [place] [address] Vandana Indira pH (U) 7.0 [pH] Normal 5-9 [facility] Comment on above: Performed By: #### U MICRO, UACSIND #### [facility] [address] [place] [address] Vandana Jacobson SPEC GRAVITY 1.015 Normal 1.005-<=1.025 [facility] Comment on above: Performed By: #### U MICRO, UACSIND #### [facility] [address] [place] [address] Vandana Indira UA PROTEIN Negative Normal NEGATIVE/ TRACE The [facility] Comment on above: Performed By: #### U MICRO, UACSIND #### [facility] [address] [place] [address] Vandana Indira UR MICRO IND INDICATED Normal The [facility] Comment on above: Performed By: #### U MICRO, UACSIND #### [facility] [address] [place] [address] Vandanadave Jacobson Urobilinogen Qn (U) 0.2 {Richard'U}/dL Normal 0.2 - 1. 0 The [facility] Comment on above: Performed By: #### U MICRO, UACSIND #### [facility] [address] [place] [address] Vandana Indira URINE MICROSCOPIC ONLYon BACTERIA SMALL Abnormal NONE SEEN The [facility] Comment on above: Performed By: #### U MICRO, UACSIND #### [facility] [address] [place] [address] Vandana Indira Bacteria identified Cx Nom (U) INDICATED Normal [facility] Comment on above: Performed By: #### U MICRO, UACSIND #### [facility] [address] [place] [address] Vandana Indira CAST NONE SEEN Normal NONE SEEN The [facility] Comment on above: Performed By: #### U MICRO, UACSIND #### [facility] [address] [address] Vandana Indira Crystals LM Nom (Urine sed) NONE SEEN Normal NONE SEEN The [facility] Comment on above: Performed By: #### U MICRO, UACSIND #### [facility] [address] [place] [address] Vandana Indira Epithelial cells LM Ql (Urine sed) MODERATE Abnormal NONE SEEN /RARE The [facility] Comment on above: Performed By: #### U MICRO, UACSIND #### [facility] [address] [place] [address] Vandana Indira MUCOUS NONE SEEN Normal NONE SEEN The [facility] Comment on above: Performed By: #### U MICRO, UACSIND #### [facility] [address] [place] [address] Vandana Indira RBC NONE SEEN Abnormal 0-2 The [facility] Comment on above: Performed By: #### U MICRO, UACSIND #### [facility] [address] [place] [address] Vandana Indira WBC NONE SEEN Normal NONE SEEN The [facility] Comment on above: Performed By: #### U MICRO, UACSIND #### [facility] [address] [place] [address] Vandana Indira CULTURE URINEon 08-01-2020 CULTURE URINE Culture Observations: LIGHT GROWTH OF MIXED GENITAL TEDDY. NO POTENTIAL PATHOGENS SEEN. Normal The [facility] Comment on above: Performed By: #### U RCX #### [facility] [address] [place] [address] Vandana Indira UA RANDOM W/MICROSCOPICon BACTERIA TRACE Abnormal NONE SEEN The [facility] Comment on above: Performed By: #### U AMIC #### [facility] [address] [place], [place] [id number] Vandana Indira Bilirubin Ql (U) Negative Normal NEGATIVE The [facility] Comment on above: Performed By: #### U AMIC #### [facility] [address] [address] Vandana Indira CAST NONE SEEN Normal NONE SEEN The [facility] Comment on above: Performed By: #### U AMIC #### [facility] [address] [address] Vandana Indira Clarity (U) CLEAR Normal CLEAR The [facility] Comment on above: Performed By: #### U AMIC #### [facility] [address] [address] Vandana Indira Color (U) LT. YELLOW Normal YELLOW The [facility] Comment on above: Performed By: #### U AMIC #### [facility] [address] [place] [address] Vandana Indira Crystals LM Nom (Urine sed) NONE SEEN Normal NONE SEEN [facility] Comment on above: Performed By: #### U AMIC #### [facility] [address] [place] [address] Vandana Indira Epithelial cells LM Ql (Urine sed) FEW Abnormal NONE SEEN /RARE The [facility] Comment on above: Performed By: #### U AMIC #### [facility] [address] [place] [address] Vandana Indira Glucose Ql (U) Negative Normal NEGATIVE The [facility] Comment on above: Performed By: #### U AMIC #### [facility] [address] [address] Vandana Indira Hemoglobin Ql (U) Negative Normal NEGATIVE The [facility] Comment on above: Performed By: #### U AMIC #### [facility] [address] [place] [address] Vandana Indira Ketones Ql (U) Negative Normal NEGATIVE The [facility] Comment on above: Performed By: #### U AMIC #### [facility] [address] [place] [address] Vandana Indira LEUKOCYTES Negative Normal NEGATIVE The [facility] Comment on above: Performed By: #### U AMIC #### [facility] [address] [place], [place] [id number] Vandana Indira MUCOUS NONE SEEN Normal NONE SEEN The [facility] Comment on above: Performed By: #### U AMIC #### [facility] [address] [place], [place] [id number] Vandana Jacobson Nitrite Ql (U) Negative Normal NEGATIVE The [facility] Comment on above: Performed By: #### U AMIC #### [facility] [address] [place] [address] Vandana Indira pH (U) 7.5 [pH] Normal 5-9 The [facility] Comment on above: Performed By: #### U AMIC #### [facility] [address] [place] [address] Vandana Indira RBC 0-2 Normal 0-2 [facility] Comment on above: Performed By: #### U AMIC #### [facility] [address] [place] [address] Vandana Jacobson SPEC GRAVITY 1.015 Normal 1.005-<=1.025 [facility] Comment on above: Performed By: #### U AMIC #### [facility] [address] [place] [address] Vandana Jacobson UA PROTEIN Negative Normal NEGATIVE/ TRACE The [facility] Comment on above: Performed By: #### U AMIC #### [facility] [address] [place] [address] Vandanadave Jacobson Urobilinogen Qn (U) 0.2 {Richard'U}/dL Normal 0.2 - 1. 0 The [facility] Comment on above: Performed By: #### U AMIC #### [facility] [address] [place], [place] [id number] Vandanadave Jacobson WBC 0-2 Abnormal NONE SEEN The [facility] Comment on above: Performed By: #### U AMIC #### [facility] [address] [place] [address] Vandana Indira CBC AUTO DIFFon 12-17-2019 BASO # 0.0 103/ul Normal 0.0-0.1 [facility] Comment on above: Performed By: #### C BC #### [facility] [address] [id number] Vandana Indira Basophils/100 WBC (Bld) 0.1 % Critically low 0.2-2.0 [facility] Comment on above: Performed By: #### C BC #### [facility] [address] [place], [place] [id number] Vandana Indira EO # 0.1 103/ul Normal 0.0-0.7 The [facility] Comment on above: Performed By: #### C BC #### [facility] [address] [place], [place] [id number] Vandana Indira Eosinophils/100 WBC (Bld) 0.9 % Normal 0.9-7.0 [facility] Comment on above: Performed By: #### C BC #### [facility] [address] [place] [address] Vandana Indira Erythrocyte distribution width (RBC) [Ratio] 14.3 % Normal 11.0-15.0 [facility] Comment on above: Performed By: #### C BC #### [facility] [address] [place], [place] [address] Vandana Indira Hematocrit (Bld) [Volume fraction] 40.5 % Normal 36.0-48.0 [facility] Comment on above: Performed By: #### C BC #### [facility] [address] [place], [place] [address] Vandana Indira Hemoglobin (Bld) [Mass/Vol] 13.2 g/dL Normal 12.0-16.0 The [facility] Comment on above: Performed By: #### C BC #### [facility] [address] [place] [address] Vandana Indira IG # 0.01 10e3/ul Normal 0.00-0.03 The [facility] Comment on above: Performed By: #### C BC #### [facility] [address] [place], [place] [address] Vandana Indira IG % 0.1 % Normal 0.0-0.5 The [facility] Comment on above: Performed By: #### C BC #### [facility] [address] [id number] Vandana Indira LYMPH # 2.0 103/ul Normal 1.2-3.8 The [facility] Comment on above: Performed By: #### C BC #### [facility] [address] [id number] Vandana Indira Lymphocytes/100 WBC (Bld) 27.9 % Normal 20.5-60.0 The [facility] Comment on above: Performed By: #### C BC #### [facility] [address] [place], [place] [address] Vandana Indira MANUAL DIFF REQ NO Normal [facility] Comment on above: Performed By: #### C BC #### [facility] [address] [place] [address] Vandana Indira MCH (RBC) [Entitic mass] 25.7 pg Critically low 26.7-34.0 The [facility] Comment on above: Performed By: #### C BC #### [facility] [address] [place] [address] Vandana Indira MCHC (RBC) [Mass/Vol] 32.6 g/dL Normal 29.9-35.2 The [facility] Comment on above: Performed By: #### C BC #### [facility] [address] [place] [address] Vandana Indira MCV (RBC) [Entitic vol] 78.9 fL Critically low 81.0-99.0 The [facility] Comment on above: Performed By: #### C BC #### [facility] [address] [place] [address] Vandana Indira MONO # 0.5 103/ul Normal 0.3-0.8 The [facility] Comment on above: Performed By: #### C BC #### [facility] [address] [place], [place] [address] Vandana Indira Monocytes/100 WBC (Bld) 7.0 % Normal 1.7-12.0 The [facility] Comment on above: Performed By: #### C BC #### [facility] [address] [place] [address] Vandana Jacobson NEUT # 4.5 103/ul Normal 1.4-6.5 The [facility] Comment on above: Performed By: #### C BC #### [facility] [address] [place], [place] [address] Vandana Jacobson Neutrophils/100 WBC (Bld) 64.0 % Normal 43.0-75.0 The [facility] Comment on above: Performed By: #### C BC #### [facility] [address] [place] [address] Vandana Jacobson Platelet mean volume (Bld) [Entitic vol] 8.9 fL Critically low 9.5-13.5 The [facility] Comment on above: Performed By: #### C BC #### [facility] [address] [place] [address] Vandana Jacobson PLT 345 103/ul Normal 150-450 The [facility] Comment on above: Performed By: #### C BC #### [facility] [address] [place] [address] Vandana Jacobson RBC 5.13 106/ul Normal 4.20-5.40 The [facility] Comment on above: Performed By: #### C BC #### [facility] [address] [place] [address] Vandana Jacobson WBC 7.1 103/ul Normal 4.0-11.0 The [facility] Comment on above: Performed By: #### C BC #### [facility] [address] [place] [address] Vandana Jacobson FERRITINon 12-17-2019 Ferritin [Mass/Vol] 27.0 ng/mL Normal 6.2-137.0 The [facility] Comment on above: Performed By: #### D RUGRPD #### [facility] [address] [place] [address] Vandana Jacobson IRONon 12-17-2019 Iron [Mass/Vol] 35.0 ug/dL Critically low 37.0-170.0 The [facility] Comment on above: Performed By: #### D RUGRPD #### [facility] [address] [place] [address] Vandana Indira PROF 14(COMP METB)on 020 Albumin [Mass/Vol] 3.7 g/dL Normal 3.5-5.0 [facility] Comment on above: Performed By: #### C MP #### [facility] [address] [id number] Vandana Indira Albumin/Globulin [Mass ratio] 0.9 {ratio} Normal [facility] Comment on above: Performed By: #### C MP #### [facility] [address] [place] [address] Vandana Indira ALP [Catalytic activity/Vol] 82 U/L Normal 38-126 [facility] Comment on above: Performed By: #### C MP #### [facility] [address] [place] [address] Vandana Idnira ALT [Catalytic activity/Vol] 21 U/L Normal 9-52 [facility] Comment on above: Performed By: #### C MP #### [facility] [address] [place] [address] Vandana Indira Anion gap [Moles/Vol] 12.5 mmol/L Normal [facility] Comment on above: Performed By: #### C MP #### [facility] [address] [place] [address] Vandana Indira AST [Catalytic activity/Vol] 15 U/L Normal 14-36 [facility] Comment on above: Performed By: #### C MP #### [facility] [address] [place] [address] Vandana Indira Bilirubin [Mass/Vol] 0.3 mg/dL Normal 0.2-1.3 [facility] Comment on above: Performed By: #### C MP #### [facility] [address] [place], [place] [address] Vandana Indira Calcium [Mass/Vol] 9.5 mg/dL Normal 8.4-10.2 [facility] Comment on above: Performed By: #### C MP #### [facility] [address] [place] [address] Vandana Indira Chloride [Moles/Vol] 104 mmol/L Normal 98-107 The [facility] Comment on above: Performed By: #### C MP #### [facility] [address] [id number] Vandana Indira CO2 [Moles/Vol] 28.4 mmol/L Normal 22.0-30.0 The [facility] Comment on above: Performed By: #### C MP #### [facility] [address] [id number] Vandana Indira Creatinine [Mass/Vol] 0.69 mg/dL Normal 0.52-1.04 The [facility] Comment on above: Performed By: #### C MP #### [facility] [address] [address] Vandana Indira EGFR-AF FIJIAN >60 Normal >=60 The [facility] Comment on above: Performed By: #### C MP #### [facility] [address] [address] Vandana Indira EGFR-NON AF FIJIAN >60 Normal >=60 The [facility] Comment on above: Performed By: #### C MP #### [facility] [address] [id number] Vandana Indira Globulin (S) [Mass/Vol] 4.1 g/dL Normal The [facility] Comment on above: Performed By: #### C MP #### [facility] [address] [address] Vandana Indira Glucose [Mass/Vol] 94 mg/dL Normal 74-106 [facility] Comment on above: Performed By: #### C MP #### [facility] [address] [id number] Vandana Indira Potassium [Moles/Vol] 3.9 mmol/L Normal 3.4-5.0 The [facility] Comment on above: Performed By: #### C MP #### [facility] [address] [id number] Vandana Indira Protein [Mass/Vol] 7.8 g/dL Normal 6.1-8.2 [facility] Comment on above: Performed By: #### C MP #### [facility] [address] [place], [place] [address] Vandanadave Jacobson Sodium [Moles/Vol] 141 mmol/L Normal 137-145 [facility] Comment on above: Performed By: #### C MP #### [facility] [address] [address] Vandanadave Jacobson Urea nitrogen [Mass/Vol] 16.0 mg/dL Normal 7.0-17.0 [facility] Comment on above: Performed By: #### C MP #### [facility] [address] [id number] Vandanadave Jacobson Urea nitrogen/Creatinine [Mass ratio] 23.2 mg/mg Normal [facility] Comment on above: Performed By: #### C MP #### [facility] [address] [place], [place] [address] Vandana Jacobson PROTIMEon 12-17-2019 INR Coag (PPP) [Relative time] 0.97 {INR} Normal [facility] Comment on above: Performed By: #### D RUGRPD #### [facility] [address] [place], [place] [address] Vandana Indira INR GUIDELINES SEE BELOW Normal [facility] Comment on above: Result Comment: ABHIJIT RED INR: 2.0 - 3.0 CONDITIONS NOT LISTED BELOW 2.5 - 3.5 FOR PROSTHETIC HEART VALVE REPLACEMENT 2.5 - 3.5 RECURRENT THROMBOSIS Performed By: #### D RUGRPD #### [facility] [address] [place], [place] [id number] Vandana Indira PT Coag (PPP) [Time] 10.3 s Normal 9.0-11.6 [facility] Comment on above: Performed By: #### D RUGRPD #### [facility] [address] [place], [place] [id number] Vandana Indira PT NORMAL PLEASE NOTE: NORMAL RANGE CHANGE 11-24-2013 DUE TO REAGENT LOT CHANGE Normal The [facility] Comment on above: Performed By: #### D RUGRPD #### [facility] [address] [id number] Vandana Lien PTTon 12-17-2019 aPTT Coag (Bld) [Time] 30.7 s Normal 22.3-36.2 Th e [facility] Comment on above: Performed By: #### D RUGRPD #### [facility] [address] [place], [place] [address] Vandana Jacobson PTT NORMAL PLEASE NOTE: NORMAL RANGE CHANGE 01-31-2015 DUE TO REAGENT LOT CHANGE Normal The [facility] Comment on above: Performed By: #### D RUGRPD #### [facility] [address] [place], [place] [address] Vandana Jacobson Vital Signs Date Time Vital Sign Value Performing Clinician Facility 08-11-2024 11:06-0400 Body mass index (BMI) [Ratio] 33.53 kg/m2 Newton Raul DO Work Phone: [facility] 08-11-2024 11:06-0400 Body weight 75.3 kg Newton Raul DO Work Phone: [facility] 08-11-2024 11:06-0400 Diastolic blood pressure 70 mm[Hg] Newton Raul DO Work Phone: [facility] 08-11-2024 11:06-0400 Systolic blood pressure 118 mm[Hg] Newton Raul DO Work Phone: [facility] 07-20-2024 09:34-0400 Body mass index (BMI) [Ratio] 32.52 kg/m2 Yris Jasmin [employer] Work Phone: [facility] 07-20-2024 09:34-0400 Body weight 73.03 kg Yris Jasmin [employer] Work Phone: [facility] 07-20-2024 09:34-0400 Diastolic blood pressure 72 mm[Hg] Yris Jasmin [employer] WORK[employer] Work Phone: [facility] 07-20-2024 09:34-0400 Systolic blood pressure 118 mm[Hg] Yris Jasmin [employer] WORK[employer] Work Phone: [facility] 06-06-2024 11:33-0400 Body mass index (BMI) [Ratio] 31.67 kg/m2 Sarah Isamar PA Work Phone: [facility] 06-06-2024 11:33-0400 Body weight 71.12 kg Sarah Heron PA Work Phone: [facility] 06-06-2024 11:33-0400 Diastolic blood pressure 70 mm[Hg] Sarah Heron PA Work Phone: [facility] 06-06-2024 11:33-0400 Systolic blood pressure 120 mm[Hg] Sarah Heron PA Work Phone: [facility] 05-09-2024 10:21-0500 Body mass index (BMI) [Ratio] 31.99 kg/m2 Newton Raul DO Work Phone: [facility] 05-09-2024 10:21-0500 Body weight 71.85 kg Newton Raul DO Work Phone: [facility] 05-09-2024 10:21-0500 Diastolic blood pressure 76 mm[Hg] Newton Arul DO Work Phone: [facility] 05-09-2024 10:21-0500 Systolic blood pressure 122 mm[Hg] Newton Raul DO Work Phone: [facility] 04-07-2024 13:43-0500 Body mass index (BMI) [Ratio] 32.52 kg/m2 Noms Nurse [facility] 04-07-2024 13:43-0500 Body weight 73.03 kg Noms Nurse [facility] 04-07-2024 13:43-0500 Diastolic blood pressure 72 mm[Hg] Nom Nurse [facility] 04-07-2024 13:43-0500 Systolic blood pressure 118 mm[Hg] Noms Nurse [facility] 01-06-2024 10:50-0400 Body height 149.9 cm Sarah Isamar PA Work Phone: [facility] 01-06-2024 10:50-0400 Body mass index (BMI) [Ratio] 32.47 kg/m2 Sarah Isamar PA Work Phone: [facility] 01-06-2024 10:50-0400 Body weight 72.92 kg Sarah Isamar PA Work Phone: [facility] 01-06-2024 10:50-0400 Diastolic blood pressure 78 mm[Hg] Sarah NGUYEN Work Phone: [facility] 01-06-2024 10:50-0400 Systolic blood pressure 118 mm[Hg] Sarah NGUYEN Work Phone: [facility] 04-30-2023 10:23-0500 Diastolic blood pressure 84 mm[Hg] PHYSICIAN NO [facility] 04-30-2023 10:23-0500 Heart rate 67 /min PHYSICIAN NO [facility] 04-30-2023 10:23-0500 Respiratory rate 18 /min PHYSICIAN NO [facility] 04-30-2023 10:23-0500 SaO2% (BldA) [Mass fraction] 99 % PHYSICIAN NO [facility] 04-30-2023 10:23-0500 Systolic blood pressure 130 mm[Hg] PHYSICIAN NO [facility] 04-30-2023 08:53-0500 Body temperature 98.3 [degF] PHYSICIAN NO [facility] 04-30-2023 08:12-0500 Inhaled oxygen flow rate 8 L/min PHYSICIAN NO [facility] 04-30-2023 07:44-0500 Body height 152.4 cm PHYSICIAN NO [facility] 04-30-2023 07:44-0500 Body mass index (BMI) [Ratio] 28.7 kg/m2 PHYSICIAN NO [facility] 04-30-2023 07:44-0500 Body weight 66.67 kg PHYSICIAN NO [facility] 04-24-2023 11:55-0500 Diastolic blood pressure 86 mm[Hg] PHYSICIAN NO [facility] 04-24-2023 11:55-0500 Heart rate 65 /min PHYSICIAN NO [facility] 04-24-2023 11:55-0500 Respiratory rate 16 /min PHYSICIAN NO [facility] 04-24-2023 11:55-0500 SaO2% (BldA) [Mass fraction] 100 % PHYSICIAN NO [facility] 04-24-2023 11:55-0500 Systolic blood pressure 119 mm[Hg] PHYSICIAN NO [facility] 04-24-2023 11:07-0500 Body temperature 98 [degF] PHYSICIAN NO [facility] 04-24-2023 10:42-0500 Inhaled oxygen flow rate 8 L/min [facility] [facility] 08:52-0500 Body height 152.4 cm PHYSICIAN NO [facility] 04-24-2023 08:52-0500 Body mass index (BMI) [Ratio] 29 kg/m2 PHYSICIAN NO [facility] 04-24-2023 08:52-0500 Body weight 67.58 kg PHYSICIAN NO [facility] 04-20-2023 08:56-0500 Body mass index (BMI) [Ratio] 30.09 kg/m2 Dawn Huitron MD Work Phone: [facility] 04-20-2023 08:56-0500 Body weight 67.59 kg Dawn Huitron MD Work Phone: [facility] 04-20-2023 08:56-0500 Diastolic blood pressure 66 mm[Hg] Dawn Huitron MD Work Phone: [facility] 04-20-2023 08:56-0500 Systolic blood pressure 110 mm[Hg] Dawn Huitron MD Work Phone: [facility] Healthcare Encounters Encounter Date Encounter Type Care Provider Facility Start: 08-11-2024 End: 08-11-2024 Bamboo flowsheet Newton Raul DO Work Phone: [facility] Start: 08-11-2024 End: 08-11-2024 Bamboo flowsheet Newton Raul DO Work Phone: [facility] Start: 08-11-2024 End: 08-11-2024 flow sheet Newton Raul DO Work Phone: [facility] Comment on above: Second trimester pre gnancy; 25 weeks gestation of ; Diabetes mellitus screening Start: 08-11-2024 End: 08-11-2024 ambulatory NEWTON RAUL Not Available Start: 08-02-2024 End: 08-02-2024 Clinisync Result Encounter Generic External Data Provider [facility] External Department Unsolicited Start: 08-02-2024 End: 08-02-2024 Clinisync Result Encounter Generic External Data Provider [facility] External Department Unsolicited Start: 07-20-2024 End: 07-20-2024 Bamboo flowsheet Yris Castellanos [employer]STRUCTION WORKER Work Phone: [facility] Start: 07-20-2024 End: 07-20-2024 Bamboo flowsheet Yris Castellanos [employer]STRUCTION WORKER Work Phone: [facility] Start: 07-20-2024 End: 07-20-2024 flow sheet Yris Castellanos [employer]STRUCTION WORKER Work Phone: [facility] Comment on [...] Clinisync Result Encounter Sarah NGUYEN Work Phone: [facility] External Department Unsolicited Start: 06-06-2024 End: 06-07-2024 External Result Encounter Sarah NGUYEN Work Phone: [facility] External Department Unsolicited Start: 06-06-2024 End: 06-06-2024 Patient encounter procedure Sarah Heron PA Work Phone: [facility] Healthcare Start: 06-06-2024 End: 06-06-2024 Periodic preventive med est patient 18-39 yrs Sarah NGUYEN Work Phone: [facility] Comment on above: 16 weeks gestation o f ; Second trimester ; Screening, , for anatomic survey; Exposure to STD; Vaginal discharge; Well woman exam with routine gynecological exam Start: 06-06-2024 End: 06-06-2024 ambulatory SARAH KERN Not Available Start: 05-09-2024 End: 05-09-2024 Bamboo flowsheet Newton Raul DO Work Phone: [facility] Start: 05-09-2024 End: 05-09-2024 Bamboo flowsheet Newton Raul DO Work Phone: [facility] Start: 05-09-2024 End: 05-09-2024 Clinisync Result Encounter Newton Raul DO Work Phone: [facility] External Department Unsolicited Start: 05-09-2024 End: 05-09-2024 flow sheet Newton Raul DO Work Phone: [facility] Comment on above: First trimester preg ayanna; 12 weeks gestation of ; Insulin resistance complicating Start: 05-09-2024 End: 05-09-2024 ambulatory NEWTON RAUL Not Available Start: 04-07-2024 End: 04-07-2024 Office outpatient visit 5 minutes [facility] Raul Nurse [facility] Comment on above: GA: 7w3d Start: 04-07-2024 End: 04-07-2024 ambulatory NEWTON RAUL Not Available Start: 01-06-2024 End: 01-06-2024 Bamboo flowsheet Sarah Isamar PA Work Phone: [facility] Start: 01-06-2024 End: 01-06-2024 Bamboo flowsheet Sarah Kern PA Work Phone: [facility] Start: 01-06-2024 [...] Start: 11-13-2023 End: 11-13-2023 ambulatory PHYSICIAN NO [facility] Work Phone: Start: 11-13-2023 End: 11-13-2023 Departed Referred PHYSICIAN NO [facility] Work Phone: Start: 11-12-2023 End: 11-12-2023 Clinisync Result Encounter Newton Raul DO Work Phone: [facility] External Department Unsolicited Start: 11-12-2023 End: 11-12-2023 Clinisync Result Encounter Newton Raul DO Work Phone: [facility] External Department Unsolicited Start: 04-29-2023 End: 04-30-2023 Patient encounter procedure PHYSICIAN NO [facility] Start: 04-29-2023 End: 04-30-2023 ambulatory PHYSICIAN NO [facility] Work Phone: Start: 04-24-2023 End: 04-24-2023 Admission to same day surgery center PHYSICIAN NO [facility] [place] Start: 04-24-2023 End: 04-24-2023 ambulatory PHYSICIAN NO [facility] Work Phone: Start: 04-20-2023 End: 04-20-2023 Office outpatient visit 10 minutes Danw Huitron MD Work Phone: [facility] Comment [...] Start: 12-17-2019 End: 12-18-2019 ambulatory TERENCE SCHMITZ Facility:H1 Procedures Date Procedure Procedure Detail Performing Clinician Start: 08-11-2024 Urnls dip stick/tabl et rgnt non-auto w/o micrscp Newton Raul DO Work Phone: Start: 08-02-2024 US OB CERVICAL LENGTH G eneric External Data Provider Start: 07-20-2024 Urnls dip stick/tabl et rgnt [...] NO FAMILY Start: 04-30-2023 Pelvic echography PHYSI ARDHA NO FAMILY Start: 04-30-2023 Transvaginal echography PHYSICIAN NO FAMILY Start: 04-29-2023 Antibody screen PHYSICI AN NO FAMILY Comment on above: Result Comment: PERF ORMED BY: [facility] [address] [place] [address] PATHOLOGIST PEDIATRIC NEPHROLOGIST CHUY PALOMO M.D. Start: 04-24-2023 Dilation and curetta ge of uterus PHYSICIAN NO FAMILY Start: 10-01-2020 Delivery of Products of Conception, External Approach TERENCE SCHMITZ Start: 10-01-2020 Repair Vulva, Tobacco Classer al Approach TERENCE SCHMITZ Plan of Treatment Date Care Activity Detail Author Start: 11-07-2024 Influenza vaccination Influenz a Vaccine (Season Ended) [facility] Start: 09-01-2024 End: 09-01-2024 Patient encounter procedure 09/01/2024 2:30 PM EDT Routine [facility] [address] [place] [phone] Sarah Kern PA [address] [place] [address] [facility] Start: 08-11-2024 End: 08-11-2025 CBC panel - Blood by Automated count CBC Lab Routine Diabetes mellitus screening Expected: 08/11/2024 (Approximate), Expires: 08/11/2025 [facility] Work Phone: Comment on above: Expected: 08/11/2024 (Approximate), Expires: 08/11/2025 Start: 08-11-2024 End: 08-11-2025 Measurement of glucose 1 hour after glucose challenge for glucose tolerance test Glucose tolerance, 1 hour Lab Routine Diabetes mellitus screening Expected: 08/11/2024 (Approximate), Expires: 08/11/2025 [facility] Comment on above: Expected: 08/11/2024 (Approximate), Expires: 08/11/2025 Start: 08-11-2024 End: 08-11-2024 Patient encounter procedure [facility] Comment on above: Arrived Start: 07-20-2024 End: 10-20-2024 US Pelvis transvaginal US OB transvaginal Imaging Routine Encounter for screening for cervical length Expected: 07/20/2024, Expires: 10/20/2024 [facility] Work Phone: Comment on above: Expected: 07/20/2024 , Expires: 10/20/2024 Start: 07-20-2024 End: 07-20-2024 Patient encounter procedure 07/20/2024 9:30 AM EDT Routine [facility] [address] [place] [address] Yris Castellanos NP [address] [place] [phone] Arrived [facility] Comment on above: Arrived Start: 07-11-2024 End: 07-11-2024 Patient encounter procedure 07/11/2024 11:00 AM EDT Office Visit [facility] [address] [place] [address] Sarah Kern PA [address] [place], [place] [id number] [facility] Start: 07-04-2024 End: 07-04-2024 Patient encounter procedure 07/04/2024 11:10 AM EDT Routine [facility] [address] [place] [phone] Raul Newton, DO [address] [place] [address] [facility] Start: 07-04-2024 End: 07-04-2024 Professional / ancillary services management 07/04/2024 10:00 AM EDT Ancillary Procedure [facility] [address] [place] [phone] [facility] Start: 06-20-2024 End: 06-20-2024 Patient encounter procedure 06/20/2024 2:20 PM EDT [facility] Visit [facility] [address] [place] [address] Alina Schmitz, MARISSA [address] [place] [address] [facility] Start: 06-06-2024 End: 06-06-2025 US for US OB 14+ weeks anatomy scan Imaging Routine Screening, , for anatomic survey Expected: 06/06/2024, Expires: 06/06/2025 [facility] Comment on above: Expected: 06/06/2024 , [...] gestational age Expected: 04/07/2024 (Approximate), Expires: 04/07/2025 [facility] Comment on above: Expected: 04/07/2024 (Approximate), Expires: 04/07/2025 Start: 04-07-2024 End: 04-07-2025 Blood type and Indirect antibody screen panel - Blood Type and screen Lab Routine Missed menses , unspecified gestational age Expected: 04/07/2024 (Approximate), Expires: 04/07/2025 [facility] Work Phone: Comment on above: Expected: 04/07/2024 (Approximate), Expires: 04/07/2025 Start: 04-07-2024 End: 04-07-2025 Drugs of abuse panel - Urine by Screen method Rapid drug screen, urine Lab Routine , unspecified gestational age Encounter for supervision of normal first in first trimester Expected: 04/07/2024 (Approximate), Expires: 04/07/2025 [facility] Comment on above: Expected: 04/07/2024 (Approximate), Expires: 04/07/2025 Start: 01-06-2024 End: 01-06-2024 Patient encounter procedure 01/06/2024 10:40 AM EDT Office Visit [facility] [address] [place] [phone] Sarah Kern PA [address] [place] [address] Arrived [facility] Comment on above: Arrived Start: 11-13-2023 End: 11-13-2023 Patient encounter procedure 11/13/2023 9:30 AM EDT Procedure Visit [facility] Newton Carter DO [address] [place] [address] [facility] Start: 11-08-2023 Influenza vaccination Influenza Vacc ine (#1) [facility] Start: 04-30-2023 [facility] Start: 04-24-2023 [facility] Start: 04-24-2023 End: 04-24-2023 [facility] Start: 04-20-2023 End: 04-20-2024 hCG, quantitative [facility] Work Phone: Comment on above: Ordered: 04/20/2023 Expected: 04/20/2023 (Approximate), Expires: 04/20/2024 Start: 04-13-2023 End: 04-13-2023 Patient encounter procedure 04/13/2023 9:45 AM EST Office Visit [facility] [address] [place] [address] Dawn Huitron MD [address] [place] [address] [facility] Start: 04-13-2023 End: 04-13-2023 Professional / ancillary services management 04/13/2023 9:30 AM EST Ancillary Procedure [facility] [address] [place] [address] [facility] Bacteria identified in Urine by Culture Urine culture Microbiology Routine Missed menses Ordered: 04/07/2024 [facility] Comment on above: Ordered: 04/07/2024 Basophils [#/volume] in Blood by Automated count [facility] Basophils/100 leukocytes in Blood by Automated [facility] CBC W Auto Different ial panel - Blood CBC and differential Lab Routine Missed menses , unspecified gestational age Ordered: 04/07/2024 [facility] Comment on above: Ordered: 04/07/2024 CHLAMYDIA TRACHOMATI S (GENITO/STI) CHLAMYDIA TRACHOMATIS (GENITO/STI) Lab Routine Exposure to STD Ordered: 06/06/2024 [facility] Comment on above: Ordered: 06/06/2024 Cytology Cervical or vaginal smear or scraping study Pap Smear Pathology and Cytology Routine Well woman exam with routine gynecological exam Ordered: 06/06/2024 [facility] Comment on above: Ordered: 06/06/2024 Eosinophils/100 leukocytes in Blood by Automated count [facility] Erythrocyte distribution width [Ratio] by Automated [facility] Erythrocytes [#/volu me] in Blood [facility] Hematocrit [Volume Fraction] of Blood [facility] Hemoglobin [Mass/volume] in Blood [facility] Hemoglobin A1c/Hemoglobin.total in Blood Hemoglobin A1c Lab Routine Missed menses , unspecified gestational age Ordered: 04/07/2024 [facility] Comment on above: Ordered: 04/07/2024 Hepatitis B virus surface Ag [Presence] in Serum or Plasma by Immunoassay Hepatitis B surface antigen Lab Routine Missed menses , unspecified gestational age Ordered: 04/07/2024 [facility] Comment on above: Ordered: 04/07/2024 Hepatitis C virus Ab [Presence] in Serum or Plasma by Immunoassay Hepatitis C antibody Lab Routine Missed menses , unspecified gestational age Ordered: 04/07/2024 [facility] Comment on above: Ordered: 04/07/2024 HIV-1/HIV-2 antigen/antibody combination immunoassay HIV-1 and HIV-2 antibodies Lab Routine Missed menses , unspecified gestational age Ordered: 04/07/2024 [facility] Comment on above: Ordered: 04/07/2024 Leukocytes [#/volume ] corrected for nucleated erythrocytes in Blood by Automated [facility] Leukocytes [#/volume ] in Blood [facility] Lymphocytes [#/volum e] in Blood by Automated [facility] Lymphocytes/100 leukocytes in Blood by Automated [facility] MCH [Entitic mass] b y Automated [facility] MCHC [Mass/volume] b y Automated [facility] MCV [Entitic volume] by Automated [facility] Measurement of gluco se 1 hour after glucose challenge for glucose tolerance test GTT, 1 hour Lab Routine Insulin resistance complicating Ordered: 05/09/2024 [facility] Work Phone: Comment on above: Ordered: 05/09/2024 Monocytes [#/volume] in Blood by Automated [facility] Monocytes/100 leukocytes in Blood by Automated [facility] MYCOPLASMA/UREAPLASM A PANEL MYCOPLASMA/UREAPLASMA PANEL Lab Routine Vaginal discharge Ordered: 04/20/2023 [facility] Comment on above: Ordered: 04/20/2023 Neisseria gonorrhoea e DNA [Presence] in Unspecified specimen by RAMA with probe detection Neisseria gonorrhea DNA probe, direct Lab Routine Exposure to STD Ordered: 06/06/2024 [facility] Comment on above: Ordered: 06/06/2024 Neutrophils [#/volum e] in Blood by Automated count [facility] Neutrophils/100 leukocytes in Blood by Automated count [facility] Nucleated erythrocyt es [Presence] in Blood by Automated count [facility] Patient Education [facility] Work Phone: Patient referral [facility] Work Phone: Platelet mean volume [Entitic volume] in Blood by Automated count [facility] Platelets [#/volume] in Blood [facility] Reagin Ab [Presence] in Serum by RPR RPR Lab Routine Missed menses , unspecified gestational age Ordered: 04/07/2024 [facility] Comment on above: Ordered: 04/07/2024 Rubella antibody, IgG Rubella an tibody, IgG Lab Routine Missed menses , unspecified gestational age Ordered: 04/07/2024 [facility] Comment on above: Ordered: 04/07/2024 SURESWAB(R) ADVANCED VAGINITIS PLUS, TMA SURESWAB(R) ADVANCED VAGINITIS PLUS, TMA Pathology and Cytology Routine Vaginal discharge Ordered: 06/06/2024 [facility] Work Phone: Comment on above: Ordered: 06/06/2024 Payers Date Payer Category Payer Self-pay 2023 [facility] er [id number] 2023 Unknown BCBS BCBS xxxxxx [id number] 2023-Present [phone] [address] [place] [address] [id number] 2023 Unknown [id number] 1998 Unknown [id number] 2.16.840.1.554489.3.579.2. 593 1998 Unknown [id number] 2.16.840.1.729971.3.579.2. 593 1998 Unknown [id number] 2.16.840.1.354404.3.579.2. 593 1998 Unknown [id number] 2.16.840.1.477391.3.579.2. 593 1998 Unknown [id number] 2.16.840.1.384904.3.579.2. 593 1998 Unknown [id number] 2.16.840.1.598883.3.579.2. 593 1998 Unknown [id number] 2.16.840.1.128352.3.579.2. 593 1998 Unknown [id number] 2.16.840.1.533100.3.579.2. 593 1998 Unknown [id number] 2.16.840.1.514438.3.579.2. 593 1998 Unknown [id number] 2.16.840.1.587171.3.579.2. 1259 1998 Unknown [id number] 2.16.840.1.344815.3.579.2. 1259 1998 Unknown [id number] 2.16.840.1.913169.3.579.2. 1259 1998 Unknown [id number] 2.16.840.1.705448.3.579.2. 1259 1998 Unknown [id number] 2.16.840.1.771879.3.579.2. 1259 1998 Unknown [id number] 2.16.840.1.465315.3.579.2. 1259 1998 Unknown [id number] 2.16.840.1.839575.3.579.2. 1259 1959 Unknown [id number] 1959 Unknown [id number] Unknown [id number] 2.16.840.1.303266.3.579.2. 531 Unknown [id number] 2.16.840.1.354409.3.579.2. 531 Unknown [id number] 2.16.840.1.680121.3.579.2. 531 Social History Date Type Detail Facility Start: 08-13-2022 End: 04-30-2023 Tobacco smoking status MSIS Never smoked tobacco [facility] Start: 08-13-2022 Tobacco use and exposure Smokeless tobacco non-user [facility] Start: 04-07-2023 End: 08-11-2024 Alcohol intake Ex-drinker (finding) [facility] Start: 08-13-2022 End: 04-13-2023 History of Social function [facility] Start: 08-13-2022 End: 04-13-2023 Tobacco use panel [facility] Start: 08-13-2022 Alcohol Comment none with [facility] Start: 2000 Sex Assigned At Not on file [facility] The thought of gilberto ng myself has occurred to me Never [facility] Start: 2000 Sex Assigned At Female F [facility] How often to you hav e [...] Facility 04-29-2023 Functional status Patient at Baseline [facility] Work Phone: Mental Status Date Assessment Result Facility 04-29-2023 Cognitive function Cognitive Sta tus Patient at Baseline [facility] Work Phone: Clinical Notes 04-20-2023 to 08-11-2024 PATRICK Cowart - 08/11/2024 10:40 AM Uzma Castellanos NP - 07/20/2024 9:30 AM PATRICK Mitchell - 06/06/2024 11:30 AM Mehrdad Gomez LPN - 05/09/2024 10:10 AM EST Note Date & Type Note Facility 08-11-2024 History of Presen t illness Narrative Reason [...] Vitals: Estimated body mass index is 33.53 kg/m as calculated from the following: Height [...] Newton Carter DO documented in this encounter [facility] 07-20-2024 History of Presen t illness Narrative [...] nursing note reviewed. Exam conducted with a track walker present. Vitals: Estimated body mass index is [...] Yris Castellanos NP documented in this encounter [facility] 06-06-2024 History of Presen t illness [...] nursing note reviewed. Exam conducted with a track walker present. Vitals: Estimated body mass index is [...] of: PATRICK Cowart documented in this encounter [facility] 05-09-2024 History of Presen t illness [...] nursing note reviewed. Exam conducted with a track walker present. Vitals: Estimated body mass index is [...] or undercooked meat, and stay away from [facility]. Patient has been consulted regarding any further do's and don'ts of . Patient voiced understanding and all questions and concerns were answered. Patient is currently taking Metformin and will have an Early 1 hour Gtt drawn at 16 weeks gestation. Patient has not yet obtained intake labs and was given printouts of all labs. Patient also given [facility] order to have drawn with early 1hour gtt at 16 weeks. Orders Placed This Encounter Procedures GTT, 1 hour Alpha fetoprotein, maternal POCT urinalysis dipstick manually resulted Follow Up: Patient is to return in 4 weeks for routine OB appointment. Documented by Smita Gomez LPN on behalf of: Newton Carter DO documented in this encounter [facility] 01-30-2025 History of Presen t illness Narrative Reason [...] or undercooked meat, and stay away from [facility]. Patient has also been advised to [...] Cayla Mayorga MA documented in this encounter [facility] 01-06-2024 History of Presen t illness [...] after having a D&C performed at [facility] with Dr. Carter. Pathology results was [...] of: PATRICK Cowart documented in this encounter [facility] 04-30-2023 History and physical note Note Date/Time April 29, 2023 10:09pm [facility] [address] [place] [address] PRESCRIPTION CLERK LENSES History & Physical Signed Patient: Sarah Arce MR#: [id number] : 2000 Acct:[id number] Age/Sex: 23 / F Adm Date: 4 Loc: 3S Room: [address] [place] [address] Type: REG CLI Attending Dr: Dawn Huitron MD Copies to: NO FAMILY PHYSICIAN Dawn Huitron MD-[facility]~ Date of Service: 04/29/2023 ONLINE MARKETING DIRECTOR - HPI History of Present Illness Chief [...] noted below or in HPI [facility] Medical History (Updated 04/29/23 @ 22:08 by [...] 1,000 mls @ 125 mls/hr IV .Q8H [facility] Stop: 04/28/24 16:59 Last Admin: 04/29/23 17:50 Dose: 125 mls/hr Cefazolin Sodium (Ancef) 2 gm in 50 mls @ 100 mls/hr IV Q8H [facility] Last Admin: 04/29/23 17:51 Dose: 100 mls/hr Oxytocin 40 unit/ Lactated (Ringer's) 504 mls @ 150 mls/hr IV .Q3H22M ONE; Protocol Stop: 04/30/23 02:21 Misoprostol (Misoprostol 200 Mcg Tablet) 800 mcg VAGINAL Q4H [facility] Stop: 04/30/23 02:31 ONLINE MARKETING DIRECTOR - Exam Physical Exam Vital signs: Temp [...] Routine Psychiatric Exam Psychiatric: Present normal affect ONLINE MARKETING DIRECTOR - Results Laboratory Results - Last 48 hrs. 04/29/23 20:27: Blood Type Recheck A Positive 04/29/23 17:45: HCG, Quant 3230.00 04/29/23 17:31: Corrected WBC 13.6 H, Uncorrected WBC Count 13.6 H, RBC 4.93, Hgb 13.3, Hct 39.8, MCV 80.8, MCH 27.0, MCHC 33.5, RDW 13.9, Plt Count 369, MPV 7.0, Neut % (Auto) 77.6, Lymph % (Auto) 17.0, [place] % (Auto) 4.0, Eos % (Auto) 1.1, Baso % (Auto) 0.3, Nucleat RBC Rel Count 0.2, Neut # (Auto) 10.6 H, Lymph #(Auto) 2.3, [place] # (Auto) 0.5, Eos # (Auto) 0.2, Baso # (Auto) 0.0, Blood Type APositive, Antibody Screen Negative Diagnostic Imaging Comments: 2.1 cm uterine complex with vascularization, essentially unchanged from yesterday ONLINE MARKETING DIRECTOR - A/P (1) Vaginal bleeding: Plan Failed Cytotec evacuation of uterine tissue Suction D&C D&C Documented By: CHUCK Astorga 04/29/23 22 06 Signed By: <Electronically signed by CHUCK Huitron> 04/30/23 0702 [facility] Work Phone: 1(262) 436-419302-12-2024 History of Present illness Narrative* Dawn Huitron [...] impossible D&C on Thursday [facility]* Diagnosis Missed Bleeding in early Unspecified hemorrhage in early , unspecified as to episode of care Vaginal discharge Leukorrhea, not specified as infective documented [facility] noteNo assessment [facility] Work Phone: Evaluation note* Diagnosis Onset Date Resolution Status Vaginal bleeding acute [facility] Work Phone: Evaluation note* Diagnosis Encounter for postoperative care Encounter for weight management documented in this encounter [facility]* Diagnosis Missed menses , unspecified gestational age Encounter for supervision of normal first in first trimester Nausea and vomiting in Unspecified vomiting of , unspecified as to episode of care documented in this encounter [facility]* Diagnosis First trimester state, incidental 12 weeks gestation of Insulin resistance complicating documented in this encounter [facility] note* Diagnosis 16 weeks gestation of Second trimester state, incidental Screening, , for anatomic survey Encounter for anatomic survey Exposure to STD Vaginal discharge Leukorrhea, not specified as infective Well woman exam with routine gynecological exam Routine gynecological examination documented in this encounter [facility] HealthcareEvaluation note* Diagnosis Second trimester state, incidental 22 weeks gestation of Encounter for screening for cervical length documented in this encounter [facility] HealthcareEvaluation note* Diagnosis Second trimester state, incidental 25 weeks gestation of Diabetes mellitus screening Screening for diabetes mellitus documented in this encounter [facility] HealthcareHospital Discharge instructions Additional Instructions SPECIAL INSTRUCTIONS Call for heavy bleeding FOLLOW UP Thursday [facility] Work Phone: Summary Purpose Family History Relationship [...] and content) DATE CREATED AUTHOR 10/08/2020 [facility] pital DATE CREATED AUTHOR AUTHOR'S ORGANIZ ATION 11/23/2023 [facility] ysician Group DATE CREATED AUTHOR AUTHOR'S ORGANIZ ATION 08/12/[address] [facility] dical Specialists EPIC Reason for Visit (unrecogniz ed section and content) Reason Comments Care Reason Comments Post-op Visit Reason Comments Amenorrhea Reason Comments Routine Visit Care Teams (unrecognized sec tion and content) Python Architect Relationship Specialty Start Date End Date Unallocated, Noms Provider [address] [place] [address] PCP - General Family Medicine 04/13/23 Team [...] November 13, 2023 End: November 13, 2023 Python Architect Relationship Specialty Start Date End Date Unallocated, Jodee Silverio MD [facility] [place] [address] PCP - General Family Medicine 04/13/23 Python Architect Relationship Specialty Start Date End Date Unallocated, Jodee Silverio MD [address] [place] [address] PCP - General Family Medicine 04/13/23 Python Architect Relationship Specialty Start Date End Date Unallocated, Jodee Silverio MD [address] [place] [address] PCP - General Family Medicine 04/13/23 Python Architect Relationship Specialty Start Date End Date Unallocated, Jodee Silverio MD [address] [place] [address] PCP - General Family Medicine 04/13/23 Python Architect Relationship Specialty Start Date End Date Unallocated, Jodee Silverio MD [address] [place] [address] PCP - General Family Medicine 04/13/23 Python Architect Relationship Specialty Start Date End Date Angel Seay MD [address] [place] [address] PCP - General Family Medicine 01/26/24 Alina Schmitz NP [address] [place] [address] Nurse Practitioner Family Medicine 01/26/24 Python Architect Relationship Specialty Start Date End Date Angel Seay MD [address] [place] [address] PCP - General Family Medicine 01/26/24 Alina Schmitz NP [address] [place] [address] Nurse Practitioner Family Medicine 01/26/24 Python Architect Relationship Specialty Start Date End Date Angel Seay MD [address] [place] [address] PCP - General Family Medicine 01/26/24 Alina Schmitz NP [address] [place] [address] Nurse Practitioner Family Medicine 01/26/24 Python Architect Relationship Specialty Start Date End Date Angel Seay MD [address] [place] [address] PCP - General Family Medicine 01/26/24 Alina Schmitz NP [address] [place] [address] Nurse Practitioner Family Medicine 01/26/24 Python Architect Relationship Specialty Start Date End Date Angel Seay MD [address] [place] [address] PCP - General Family Medicine 01/26/24 Alina Schmitz NP [address] [place] [address] Nurse Practitioner Family Medicine 01/26/24 Python Architect Relationship Specialty Start Date End Date Angel Seay MD [address] [place] [address] PCP - General Family Medicine 01/26/24 Alina Schmitz NP [address] [place] [address] Nurse Practitioner Family Medicine 01/26/24 Python Architect Relationship Specialty Start Date End Date Angel Seay MD [address] [place] [address] PCP - General Family Medicine 01/26/24 Alina Schmitz NP [address] [place] [address] Nurse Practitioner Family Medicine 01/26/24 Python Architect Relationship Specialty Start Date End Date Angel Seay MD [address] [place] [address] PCP - General Family Medicine 01/26/24 Alina Schmitz NP [address] [place] [address] Nurse Practitioner Family Medicine 01/26/24 Python Architect Relationship Specialty Start Date End Date Angel Seay MD [address] [place] [address] PCP - General Family Medicine 01/26/24 Alina Schmitz NP [address] [place] [address] Nurse Practitioner Family Medicine 01/26/24 Goals (unrecognized [...] BE BASED ON THE PRIMARY CLINICAL RECORDS. [employer] provides no warranty or guarantee of the accuracy or completeness of information in this document.
--- OUTSIDE RECORDS SUMMARY | 2024-08-25 08:18 | XMS_ITS | Encounter Summary ---
Author Organization [facility] Address [address] [place] [address] Care Team Providers Care Brick Off Bearer Name Role Phone Unallocated, Noms Provider Primary Care Provi kristopher Angel Seay MD Primary Care Provider Alina Schmitz NP Unavailable [phone] Encounter Details Date Type Department Care Team (Late st Contact Info) Description 11/16/2023 Abstract [facility] BCP OB [address] [place] [address] Newton Carter, DO [address] Pancho Miguel, [facility] Social History Tobacco Use Types Packs/Day Years [...] Recorded Patient Health Questionnaire-2 Score 0 04/29/2023 [place] Depression Scale Answer Date Recorded [place] Depression Scale Total 0 04/13/2023 The thought [...] PM EDT Routine [facility] BCP OB [address] [facility] [place] [address] Sarah Penn PA [address] [facility] [place] [address] documented as of this encounter Visit Diagnoses Not on filedocumented in this encounter Care Teams Brick Off Bearer Relationship Specialty Start Date End Date Unallocated, Noms MD Jean Claude [address] [place] [address] PCP - General Family Medicine 04/13/23 01/25/24 Angel Seay MD [address] [place] [address] PCP - General Family Medicine 01/26/24 Alina Schmitz NP [address] [place] [address] Nurse Practitioner Family Medicine 01/26/24 documented as of this encounter
--- OUTSIDE RECORDS SUMMARY | 2024-08-25 08:18 | XMS_ITS | Encounter Summary ---
Author Organization [facility] Address [address] [place] [address] Care Team Providers Care Elect Equip Maint Eng Name Role Phone Unallocated, Noms Provider Primary Care Provi kristopher Angel Seay MD Primary Care Provider Alina Schmitz NP Unavailable [phone] Encounter Details Date Type Department Care Team (Late st Contact Info) Description 11/13/2023 Abstract [facility] BCP OB [address] [place] [address] Newton Carter, DO [address] Pancho Miguel, [facility]11 Social History Tobacco Use Types Packs/Day Years [...] Recorded Patient Health Questionnaire-2 Score 0 04/29/2023 [place] Depression Scale Answer Date Recorded [place] Depression Scale Total 0 04/13/2023 The thought [...] PM EDT Routine [facility] BCP OB [address] [facility] [place] [address] Sarah Penn PA [address] [facility] [place] [address] documented as of this encounter Visit Diagnoses Not on filedocumented in this encounter Care Teams Elect Equip Maint Eng Relationship Specialty Start Date End Date Unallocated, Noms MD Jean Claude [address] [place] [address] PCP - General Family Medicine 04/13/23 01/25/24 Angel Seay MD [address] [place] [address] PCP - General Family Medicine 01/26/24 Alina Schmitz NP [address] [place] [address] Nurse Practitioner Family Medicine 01/26/24 documented as of this encounter
--- OUTSIDE RECORDS SUMMARY | 2024-08-25 08:18 | XMS_ITS | Encounter Summary ---
Author Organization [facility] Address [address] [place] [address] Care Team Providers Care Stringed Instrument Tuner Name Role Phone Unallocated, Noms Provider Primary Care Provi kristopher Angel Seay MD Primary Care Provider Alina Schmitz NP Unavailable [phone] Encounter Details Date Type Department Care Team (Late st Contact Info) Description 04/30/2023 External Result Encounter [facility] External Department Unsolicited Dawn Huitron MD [address] [facility] [address] [place] [address] Social History Tobacco Use Types Packs/Day Years Used Date Smoking Tobacco: Never Smokeless Tobacco: Never Alcohol Use Standard Drinks/Week Comments Not Currently 0 (1 standard drink = 0.6 oz pur e alcohol) none with PHQ-2 Answer Date Recorded Patient Health Questionnaire-2 Score 0 04/29/2023 [place] Depression Scale Answer Date Recorded [place] Depression Scale Total 0 04/13/2023 The thought [...] Description 09/01/2024 2:30 PM EDT Routine [facility] [address] [place] [address] Sarah Penn PA [address] [place] [address] [place] [address] documented as of this encounter Procedures Procedure Name Priority Date/Time Associated Diagnosis Comments US PELVIS TRANSVAGINAL 04/30/2023 9:33 AM EST documented in this encounter Results * US pelvis transvaginal (04/30/2023 9:33 AM EST) Anatomical Region Laterality Modality Pelvis Ultrasound 04/30/2023 9:33 AM EST Impressions 04/30/2023 9:39 AM EST 22 mm thick endometrial complex. Impression dictated by: Usama Peña M.D.04/30/2023 9:37 AM Dictation Location: [place] [address] Tech: [facility] Transcribed By: GISSEL 04/30/23 0937 Dictated By: Usama Peña DO 04/30/23 0933 Signed By: <Electronically signed by Usama Peña DO in OV> 04/30/23 0937 Narrative 04/30/2023 9:39 AM EST [facility] Main [address] [address] Ultrasound Report Signed Patient: Sarah Arce MR#: [id number] : 2000 Acct:[id number] Age/Sex: 23 / F ADM Date: 04/29/23 Loc: Room: [address] [place] [address] Type: REG CLI Attending Dr: Dawn Huitron MD Ordering Provider: Dawn Huitron MD-[facility] Date of Service: 04/30/23 US/US pelvic complete: D and C scheduled ([id number]) US/US transvaginal: PRODUCTS OF CONCEPTION WITH PRIOR [...] complete Procedure Note Radiology, Radiologist, - 04/30/2023 [facility] Main [employer] [address] [place] [address] Ultrasound Report Signed Patient: Aura Arce#: [id number] : 2000Acct:[id number] Age/Sex: 23 / FADM Date: 04/29/23 Loc: Room: [id number]: [facility] CL Attending Dr: Dawn Huitron MD Ordering Provider: Dawn Huitron MD-[facility] Date of Service: 04/30/23 US/US pelvic complete: D and C scheduled ([id number]) US/US transvaginal: PRODUCTS OF CONCEPTION WITH PRIOR [...] Usama Peña M.D.04/30/2023 9:37 AM Dictation Location: [place] [address] Tech: [facility] Transcribed By: GISSEL 04/30/23 0937 Dictated By: Usama Peña DO 04/30/23 0933 Signed By: <Electronically signed by Usama Peña DO in OV> 04/30/23 0937 us Dawn Huitron MD IMG US PROCEDURES Final Result documented in this encounter Visit Diagnoses Not on filedocumented in this encounter Care Teams Stringed Instrument Tuner Relationship Specialty Start Date End Date Unallocated, Noms Provider, [address] [place] [address] PCP - General Family Medicine 04/13/23 01/25/24 Angel Seay MD [address] [place] [address] PCP - General Family Medicine 01/26/24 Alina Schmitz NP [address] [place] [address] Nurse Practitioner Family Medicine 01/26/24 documented as of this encounter
--- OUTSIDE RECORDS SUMMARY | 2024-08-25 08:18 | XMS_ITS | Clinical Summary ---
Author Organization [employer] tem Address [id number] [address] [place] [address] Care Team Providers Care Information Technology Instructor Name Role Phone No Pcp, No Pcp [...] on file Insurance [place] [employer] Care Teams Information Technology Instructor Relationship Specialty Start Date End Date No Pcp, [place] [address] PCP - General Family Medicine 08/15/22
--- OUTSIDE RECORDS SUMMARY | 2024-08-25 08:18 | XMS_ITS | Encounter Summary ---
Author Organization [facility] Address [address] [place] [address] Care Team Providers Care Manager English Name Role Phone Unallocated, Noms Provider Primary Care Provi kristopher Angel Seay MD Primary Care Provider Alina Schmitz NP Unavailable [phone] Encounter Details Date Type Department Care Team (Late st Contact Info) Description 10/23/2023 Clinisync Result Encounter [facility] External Department Unsolicited Partha Carter, DO [address] [place], [place] [id number] Social History Tobacco Use Types Packs/Day Years [...] Recorded Patient Health Questionnaire-2 Score 0 04/29/2023 [place] Depression Scale Answer Date Recorded [place] Depression Scale Total 0 04/13/2023 The thought [...] PM EDT Routine [facility] BCP OB [address] [facility] [place] [address] Sarah Penn PA [address] [place] [address] Dr [place], [facility] documented as of this encounter Procedures Procedure Name Priority Date/Time Associated Diagnosis Comments US OB TRANSVAGINAL 10/23/2023 10 :54 AM EDT [facility] PREG QUANT HCG Routine 10/23/2023 10 :23 AM EDT documented in this encounter Results * US OB TRANSVAGINAL (10/23/2023 10:54 AM EDT) Anatomical Region Laterality Modality Other 10/23/2023 10:5 4 AM EDT Narrative 10/23/2023 10:57 AM EDT [address] [address] Ultrasound Report Signed Patient: Sarah EVANS MR#: [id number] : 2000 Acct:[id number] Age/Sex: 23 / F ADM Date: 10/23/23 Loc: [facility] Attending Dr: Partha Carter D.O. Ordering Physician: Partha Carter D.O. Date of Service: 10/23/23 Procedure(s): US OB transvaginal Accession Number(s): [id number] cc: Partha Carter D.O.; Physician,Non-Staff M.DMercedez The [address] [address] Patient Name: SARAH EVANS MRN: [facility]:[id number] date: 2000 Sex: F Assigned Patient Location: [facility] Current Patient Location: [facility] Accession/Order Number: [id number] Exam Date: 10/23/2023 09:13 Report Date: 10/23/2023 [...] Signed By: 10/23/23 1057 DD/ 1054 TD/TT: Buffing Line Set Up Worker: Procedure Note Radiology, Radiologist, MD - 10/23/2023 [place] [address] Ultrasound Report Signed Patient: Sarah EVANS GMR#: [id number] : 2000Acct:[id number] Age/Sex: 23 / FADM Date: 10/23/23 Loc: [facility] Attending Dr: Partha Carter D.O. Ordering Physician: Partha Carter D.O. Date of Service: 10/23/23 Procedure(s): US OB transvaginal Accession Number(s): [id number] cc: Partha Carter D.O.; Physician,Non-Staff [facility] The [place] [address] Patient Name: SARAH EVANS MRN: [facility]:[id number] date: 2000 Sex: F Assigned Patient Location: [facility] Current Patient Location: [facility] Accession/Order Number: [id number] Exam Date: 10/23/2023 09:13 Report Date: 10/23/2023 [...] M.D. Signed By:10/23/23 1057 DD/ 1054 TD/TT: Buffing Line Set Up Worker: Partha Carter DO [facility] Final Result * [facility] PREG QUANT HCG (10/23/2023 10:23 AM EDT) HCG QUANTITATIVE 29,297 mIU/mL [facility] Comment: 5-50 0.2-1 WEEK 50-500 1-2 WEEKS 100-5,000 2-3 WEEKS 500-10,000 3-4 WEEKS 1,000-50,000 4-5 WEEKS 10,000-100,000 5-6 WEEKS 15,000-200,000 6-8 WEEKS 10,000-100,000 2-3 MONTHS 10/23/2023 10:2 3 AM EDT 10/23/2023 10:24 AM EDT Narrative [facility] - 10/23/2023 12:24 PM EDT Partha Severinoo DO [facility] Final Result [facility] documented in this encounter Visit Diagnoses Not on filedocumented in this encounter Care Teams Manager English Relationship Specialty Start Date End Date Unallocated, Noms Provider, [address] [place] [address] PCP - General Family Medicine 04/13/23 01/25/24 Angel Seay MD [address] [place] [address] PCP - General Family Medicine 01/26/24 Alina Schmitz NP [address] [place] [address] Nurse Practitioner Family Medicine 01/26/24 documented as of this encounter
--- OUTSIDE RECORDS SUMMARY | 2024-08-25 08:18 | XMS_ITS | Encounter Summary ---
Author Organization [facility] Address [address] [place] [address] Care Team Providers Care Computer Programming Supervisor Name Role Phone Unallocated, Noms Provider Primary Care Provi kristopher Angel Seay MD Primary Care Provider [phone] Alina Schmitz NP Unavailable [phone] Encounter Details Date Type Department Care Team (Late st Contact Info) Description 11/16/2023 Abstract [facility] BCP OB [address] [place] [address] Newton Carter, DO [address] [place] Miguel, [facility]11 Social History Tobacco Use Types Packs/Day Years [...] Recorded Patient Health Questionnaire-2 Score 0 04/29/2023 [place] Depression Scale Answer Date Recorded [place] Depression Scale Total 0 04/13/2023 The thought [...] PM EDT Routine [facility] BCP OB [address] [facility] [address] Sarah Penn PA [address] [facility] [address] documented as of this encounter Visit Diagnoses Not on filedocumented in this encounter Care Teams Computer Programming Supervisor Relationship Specialty Start Date End Date Unallocated, Noms MD Jean Claude [address] [place] [address] PCP - General Family Medicine 04/13/23 01/25/24 Angel Seay MD [address] [place] [address] PCP - General Family Medicine 01/26/24 Alina Schmitz NP [address] [place] [address] Nurse Practitioner Family Medicine 01/26/24 documented as of this encounter
--- OUTSIDE RECORDS SUMMARY | 2024-08-25 08:18 | XMS_ITS ---
Author Organization [facility] [facility] Source Produ ction (ClinicalSummary Clone) Address Unknown Care Team Providers Care Supervisor Phosphoric Acid Name Role Phone Unavailable Primary Care Physician Unavailab le Results * [UNITY] ANEUPLOIDY NIPT Performed by: [employer] Value Range Date Fraction 8.5% 05/20/2024 [...] am UT Gestation GAMINO 05/21/19 02:19 am [facility] For detailed report, see PDF See PDF 05/20/2024 02:19 am UTC 05/20/2024 02:1 9 am [facility] Social History Observation Value Start Date End Date
--- OUTSIDE RECORDS SUMMARY | 2024-08-25 08:18 | XMS_ITS | Encounter Summary ---
Author Organization [facility] Address [address] [place] [address] Care Team Providers Care Hand Profiler Name Role Phone Unallocated, Noms Provider Primary Care Provi kristopher Angel Seay MD Primary Care Provider Alina Schmitz NP Unavailable [phone] Encounter Details Date Type Department Care Team (Late st Contact Info) Description 04/30/2023 Orders Only [facility] OB [address] [facility] [address] [place] [phone] Dawn Huitron MD [address] [facility] [address] [place] [address] Social History Tobacco Use Types Packs/Day Years Used Date Smoking Tobacco: Never Smokeless Tobacco: Never Alcohol Use Standard Drinks/Week Comments Not Currently 0 (1 standard drink = 0.6 oz pur e alcohol) none with PHQ-2 Answer Date Recorded Patient Health Questionnaire-2 Score 0 04/29/2023 [place] Depression Scale Answer Date Recorded [place] Depression Scale Total 0 04/13/2023 The thought [...] PM EDT Routine [facility] BCP OB [address] [facility] [address] Sarah Penn PA [address] [facility] [place] [address] documented as of this encounter Procedures Procedure [...] on filedocumented in this encounter Care Teams Hand Profiler Relationship Specialty Start Date End Date Unallocated, Noms ProviderMD [address] [place] [address] PCP - General Family Medicine 04/13/23 01/25/24 Angel Seay MD [address] [place] [address] PCP - General Family Medicine 01/26/24 Alina Schmitz NP [address] [place] [address] Nurse Practitioner Family Medicine 01/26/24 documented as of this encounter
--- OUTSIDE RECORDS SUMMARY | 2024-08-25 08:19 | XMS_ITS | Clinical Summary ---
Author Organization [facility] Healthcare Address [address] [place] [address] Care Team Providers Care Detasseling Crew Supervisor Name Role Phone Angel Seay MD Primary Care Provider [phone] Alina Schmitz NP Unavailable [phone] Allergies No known active allergies Medications metFORMIN XR (Glucophage-XR) 500 MG 24 hr tabletIndication s:Encounter for weight management Take 1 tablet (500 mg) by mouth in the evening. Take with meals Do not crush, chew, or split. 30 tablet 11 01/06/2024 Active MV & Min w/FA-DHA ( Gummies) 0.18-25 MG chewable tabletIndication s:Encounter for supervision of normal first in first trimester ([facility]) Chew 1 tablet Daily 30 tablet 11 04/07/2024 Active Active Problems Problem Noted Date Diagnosed Date Vaginal bleeding 02/16/2024 Estimated Date of Delivery Comme nts Yes 11/21/2024 Based on Ultraso und Encounters Date Type Department Care Team Description 08/17/2024 Abstract [facility] [address] [facility] [place] [address] Beverly Jalloh MA 08/11/2024 10:40 AM EDT Routine [facility] OB [address] [place] [address] Newton Carter DO Second trimester ([facility]); 25 weeks gestation of ([facility]); Diabetes mellitus screening 08/11/2024 Bamboo flowsheet [facility] [address] [place] [address] Newton Carter, DO 08/02/2024 Abstract [facility] [address] [place] [address] Newtno Carter, DO 08/02/2024 Clinisync Result Encounter NOMS External Department Unsolicited Provider, Generic External Data 07/20/2024 9:30 AM EDT Routine [facility] [address] [place] [address] Trudy Castellanos NP Second trimester ([facility]); 22 weeks gestation of ([facility]); Encounter for screening for cervical length ([facility]) 07/20/2024 Bamboo flowsheet [facility] [address] [place] [phone] Trudy aCstellanos NP 07/06/2024 Clinisync Result Encounter NOMS External Department Unsolicited Provider, Generic External Data 07/06/2024 Clinisync Result Encounter NOMS External Department Unsolicited Provider, Generic External Data 06/14/2024 Orders Only [facility] [address] [place] [address] Rachael Heard LPN 06/07/2024 Clinisync Result Encounter NOMS External Department Unsolicited Newton Carter, DO 06/06/2024 11:30 AM EDT Routine [facility] [address] [place] [address] Sarah Kern PA 16 weeks gestation of ([facility]); Second trimester ([facility]); Screening, , for anatomic survey ([facility]); Exposure to STD; Vaginal discharge; Well woman exam with routine gynecological exam 06/06/2024 Clinisync Result Encounter NOMS External Department Unsolicited Sarah Kern PA 06/06/2024 External Result Encounter NOMS External Department Unsolicited Sarah Kern PA 06/06/2024 Bamboo flowsheet [facility] OB [address] [facility] [place] [address] Sarah Kern PA 06/03/2024 Travel from Last 3 Months Family History Medical History Relation Name Comments Ovarian cancer Maternal Grandmother Ovarian cancer Mother Unknown Breast cancer Mother's Sister 1 Moms sister Thyroid disease Mother's Sister 1 Moms sister Ovarian cancer Mother's Sister 2 Jacquelyn No Known Problems Son Relation Name Status Comments Father Alive Maternal Grandmother Mother Unknown Alive Mother's Sister 1 Moms sister Mother's Sister 2 Jacquelyn Son Social History Tobacco Use Types Packs/Day Years Used Date Smoking Tobacco: Never Smokeless Tobacco: Never Tobacco Cessation:Counseling Given: Yes Alcohol Use Standard Drinks/Week Comments Not Currently [...] Recorded Patient Health Questionnaire-2 Score 0 04/29/2023 [place] Depression Scale Answer Date Recorded [place] Depression Scale Total 0 04/13/2023 The thought of harming myself has occurred to me . Never 04/13/2023 Estimated Date of Delivery Comme nts Yes 11/21/2024 Based on Ultraso und Sex and Gender Information Value Date Recorded Sex Assigned at Not on file Legal Sex Female 11:47 PM EDT Gender Identity Not on file Sexual Orientation Not on file Last Filed Vital Signs Vital Sign Reading Time Taken Comments Blood Pressure 118/70 08/11/2024 11:06 AM EDT Pulse - - Temperature - - Respiratory Rate - - Oxygen Saturation - - Inhaled Oxygen Concentration - - Weight 75.3 kg (166 lb) 08/11/2024 11:06 AM EDT Height 149.9 cm (4' 11 ) 01/06/2024 10:50 AM EDT Body Mass Index 33.53 01/06/2024 10:50 AM EDT Plan of Treatment Upcoming Encounters Date Type Department Care Team (Late st Contact Info) Description 09/01/2024 2:30 PM EDT Routine [facility] [address] [facility] [place] [address] Sarah Kern PA [address] [facility] [place] [address] Health Maintenance Due Date Last Done Comments Influenza Vaccine (Season Ended) 2024 Procedures Procedure Name Priority Date/Time Associated Diagnosis Comments POCT URINALYSIS DIPSTICK Routine 08/11/2024 11:06 AM EDT Diabetes mellitus screening US OB CERVICAL LENGTH 08/02/2024 6:58 PM EDT POCT URINALYSIS DIPSTICK Routine 07/20/2024 9:35 AM EDT Second trimester ([facility]) US OB CERVICAL LENGTH 07/06/2024 9:06 AM EDT US OB ANATOMY 07/06/2024 9:06 AM EDT AFP, SERUM, OPEN SPINA BIFIDA Routine 06/07/2024 11:48 AM EDT GLUCOSE 1 HOUR Routine 06/07/2024 11:48 AM EDT RECURRENT VAGINITIS (HTRX) Routine 06/06/2024 11:53 AM EDT POCT URINALYSIS DIPSTICK Routine 06/06/2024 11:38 AM EDT 16 weeks gestation of ([facility]) Second trimester ([facility]) IGP,APTIMA HPV,AGE GDLN Routine 06/06/2024 11:24 AM EDT PAP SMEAR Routine 06/06/2024 12:00 AM EDT from Last 3 Months Results * POCT urinalysis dipstick manually resulted (08/11/2024 11:06 AM EDT) Only the most recent of3 resultswithin the time period is included. Color, UA Yellow Clarity, UA Clear Glucose, UA Negative Negative - 1999(110) ++++ mg/dL Bilirubin, UA Negative Negative - 4(70) +++ mg/dL Ketones, UA Negative Negative - 160(16) ++++ mg/dL Spec Grav, UA 1.020 1 - 1.03 Blood, UA Negative Negative - 50 Sherman/mcL pH, UA 7.0 5 - 9 Protein, UA Negative Negative - 1999(20) ++++ mg/dL Urobilinogen, UA 0.2 0.2 - 12 mg/dL Leukocytes, UA Positive Negative - 500+++ Jackie/mcL Comment:SMALL Nitrite, UA Negative Negative - Positive Urine 08/11/2024 11:0 6 AM EDT [facility] DO POINT OF CARE TEST ENTER/EDIT OR DERABLES Final Result * US OB CERVICAL LENGTH (08/02/2024 6:58 PM EDT) Only the most recent of2 resultswithin the time period is included. Anatomical Region Laterality Modality Other 08/02/2024 6:58 PM EDT Narrative 08/02/2024 7:00 [place] [address] Ultrasound Report Signed Patient: SARAH ARCE MR#: [id number] : 2000 Acct:[id number] Age/Sex: 24 / F ADM Date: 08/02/24 Loc: US Attending Dr: Trudy Castellanos Ordering Physician: Trudy Castellanos Date of Service: 08/02/24 Procedure(s): US OB cervical length Accession Number(s): [id number] cc: Alina Schmitz CREAM GATHERER; Trudy Castellanos The [address] [address] Patient Name: SARAH ARCE MRN: [facility]:[id number] date: 2000 Sex: F Assigned Patient Location: US Current Patient Location: US Accession/Order Number: [id number] Exam Date: 08/02/2024 18:52 Report Date: 08/02/2024 18:58 At the request of: TRUDY CASTELLANOS Procedure: US OB cervical length US [...] Daniels M.D. 08/02/2024 6:58 PM Dictation Location: [place] [address] Electronically authenticated by: [id number] Y Date: 08/02/2024 18:58 Dictated By: Roel Daniels M.D. Signed By: 08/02/24 190 DD/ TD/TT: Primary Mill Roller: Procedure Note Radiology, Radiologist, MD - 08/02/2024 [place] [address] Ultrasound Report Signed Patient: SARAH ARCE GMR#: [id number] : 2000Acct:[id number] Age/Sex: 24 / FADM Date: 08/02/24 Loc: US Attending Dr: Trudy Castellanos Ordering Physician: Trudy Castellanos Date of Service: 08/02/24 Procedure(s): US OB cervical length Accession Number(s): [id number] cc: Alina Schmitz CREAM GATHERER; Trudy Castellanos [place] [id number] Patient Name: SARAH ARCE MRN: [id number]:[id number] date: 2000 Sex: F Assigned Patient Location: US Current Patient Location: US Accession/Order Number: [id number] Exam Date: 08/02/2024 18:52 Report Date: 08/02/2024 18:58 At the request of: TRUDY CASTELLANOS Procedure: US OB cervical length US [...] os is closed. The cervix measures 3.5 cmin length. Pelvic survey reveals no gross abnormalities. US/US OB cervical length IMPRESSION: Single live IUP with an estimated gestational age of 24 weeks 1 day withand a normal heart rate. The cervical os is closed. The cervix measures 3.5 cm in length. Impression dictated by: Roel Daniels M.D. 08/02/2024 6:58 PM Dictation Location: [place] [address] Electronically authenticated by: [id number] Y Date: 8:58 Dictated By: Roel Daniels M.D. Signed By:08/02/241899 DD/ 57 TD/TT: Primary Mill Roller: us Generic External Data Provider [facility] Final Result * US OB ANATOMY (07/06/2024 9:06 AM EDT) Anatomical Region Laterality Modality Other 07/06/2024 9:06 AM EDT Narrative 07/06/2024 9:09 AM EDT The [address] [address] Ultrasound Report Signed Patient: SARAH ARCE MR#: [id number] : 2000 Acct:[id number] Age/Sex: 24 / F ADM Date: 07/05/24 Loc: US Attending Dr: Sarah Kern Ordering Physician: Sarah Kern Date of Service: 07/05/24 Procedure(s): US OB anatomy Accession Number(s): [id number] cc: Alina Schmitz NP; Sarah Kern The [address] [address] Patient Name: SARAH ARCE MRN: [facility]:[id number] date: 2000 Sex: F Assigned Patient Location: US Current Patient Location: Accession/Order Number: [id number] Exam Date: 07/06/2024 08:58 Report Date: 07/06/2024 [...] Jr., D.O. 07/06/2024 9:06 AM Dictation Location: [employer] Electronically authenticated by: [id number] Y Date: 07/06/2024 09:06 Dictated By: Pedro Luis Jack M.D. Signed By: 07/06/24908 DD/ 5 TD/TT: Primary Mill Roller: Procedure Note Radiology, Radiologist, - 07/06/2024 [place] [address] Ultrasound Report Signed Patient: SARAH ARCE GMR#: [id number] : 2000Acct:[id number] Age/Sex: 24 / FADM Date: 07/05/24 Loc: US Attending Dr: Sarah Kern Ordering Physician: Sarah Kern Date of Service: 07/05/24 Procedure(s): US OB anatomy Accession Number(s): [id number] cc: Alina Schmitz NP; Sarah Kern The [place] [id number] Patient Name: SARAH ARCE MRN: [facility]:[id number] date: 2000 Sex: F Assigned Patient Location: US Current Patient Location: Accession/Order Number: [id number] Exam Date: 07/06/2024 08:58 Report Date: 07/06/2024 09:06 At the request of: SARAH KERN Procedure: US OB cervical length Anatomy ultrasound. Cervical length ultrasound. Reason for exam: Anatomic survey. COMPARISON: None. TECHNIQUE: Transabdominal imaging of the gravid uterus was obtained. FINDINGS: Single live intrauterine measuring 20 weeks 5 days by anatomic measurements with a heart rate of 144 bpm. positionis breech at time of scanning. Estimated weight is 370 g (76.2%). Placenta is anterior in location without focal abnormality. Amnioticfluid volume is subjectively normal. Anatomic survey demonstrates all 4 extremities are seen. Spine appears intact. No hydrocephalus. Four-chamber heart. Outflow tracts appearnormal. Three-vessel cord. Cord insertion appears normal. Nasal bone appears present.Kidneys appear unremarkable. Cervical length is 4.6 cm without evidence of funneling. The tip of the placenta is approximately 2.6 cm from the internal os. US/US OB anatomy IMPRESSION: Single live intrauterine 20 weeks 5 days by anatomicmeasurements. Normal survey. Cervical length measuring 4.6 cm evidence of funneling. Impression dictated by: Pedro Luis Jack Jr., D.O. 07/06/2024 9:06 AM Dictation Location: [place] [address] Electronically authenticated by: [id number] Y Date: 9:06 Dictated By: Pedro Luis Jack M.D. Signed By:07/06/24908 DD/ 5 TD/TT: Primary Mill Roller: us Generic External Data Provider [facility] Final Result * GLUCOSE 1 HOUR (06/07/2024 11:48 AM EDT) GLUCOSE 1 HOUR 108 <130 mg/dL [facility] 06/07/2024 11:4 8 AM EDT 06/07/2024 11:53 AM EDT Narrative [facility] - 06/07/2024 12:34 PM EDT us Generic External Data Provider LAB BLOOD ORDERAB LES Final Result [facility] * AFP, SERUM, OPEN SPINA BIFIDA (06/07/2024 11:48 AM EDT) RESULTS Report . [facility] TEST RESULTS: *Screen Negative* . [facility] GEST. AGE ON COLLECTION DATE 16.1 . weeks [facility] GESTAT. AGE BASED ON Ultrasound . [facility] Comment: 12.0 on 05/09/2024 Recalculations are not recommended when gestational dating by LMP and ultrasound are within 10 days. [age] [facility] RACE . [facility] WEIGHT 158 . lbs [facility] INSULIN DEP DIABETES No . [facility] MULTIPLE GESTATION No . [facility] AFP VALUE 32.3 . ng/mL [facility] AFP MOM 0.99 . [facility] OSBR RISK 1 IN 00004 . [facility] INTERPRETATION Comment . [facility] Comment: Interpretation: Screen Negative This result is screen negative for OSB. The AFP MoM calculated is based on the gestational age provided. MS-AFP can identify up to 80% of open neural tube defects. Closed neural tube defects and some open defects may not be detected by this test. This test does not screen for Down Syndrome or Trisomy 18. If screening for Down Syndrome or Trisomy 18 is desired, contact [facility] to discuss available options. The [employer] [employer] recommends amniocentesis be offered to women age 35 and older. COMMENT: Comment . [facility] Comment: Stacy Aguirre, Ph.D., [facility] Director References: Available Upon Request. Multiples Of Median Cutoffs For AFP Elevations Leblanc 2.5 Black 2.8 IDD 2.0 Twins 4.5 Abbreviation Definitions IDD - Insulin Dep Diabetes OSBR - Open Spina Bifida Risk For further inquiries contact [facility] at [phone]. This test was developed and its performance characteristics determined by [employer] It has not been cleared or approved by the Food and Drug Administration. Performed at: [facility] [address] [id number] Environmental Attorney: Kamini Lawler [facility], Phone: [phone] 06/07/2024 11:4 8 AM EDT 06/07/2024 11:53 AM EDT Narrative [facility] - 06/09/2024 1:08 AM EDT N [id number] N ULTRASOUND [id number] 0 12 N 1 158 N N N N N Other Race us Newton Raul DO LAB BLOOD ORDERABLES Final Resul t [facility] * RECURRENT VAGINITIS (HTRX) (06/06/2024 11:53 AM EDT) ATOPOBIUM VAGINAE 0.000 19.961 - 24.689 ppm 06/07/2024 8:37 AM EDT [facility] ATOPOBIUM VAGINAE Not Detected 19.961 - 24.689 ppm 06/07/2024 8:37 AM EDT [facility] BVAB 2,3 (BACTERIAL VAGINOSIS ASSOCIATED BACTERIA 2, 3); MOBILUNCUS SPP 0.000 19.961 - 24.689 ppm 06/07/2024 8:37 AM EDT [facility] BVAB 2,3 (BACTERIAL VAGINOSIS ASSOCIATED BACTERIA 2, 3); MOBILUNCUS SPP Not Detected 19.961 - 24.689 ppm 06/07/2024 8:37 AM EDT [facility] ANTONINO ALBICANS, PARAPSILOSIS, TROPICALIS 0.000 19.961 - 30.770 ppm 06/07/2024 8:37 AM EDT [facility] ANTONINO ALBICANS, PARAPSILOSIS, TROPICALIS Not Detected 19.961 - 30.770 ppm 06/07/2024 8:37 AM EDT [facility] ANTONINO GLABRATA 0.000 23.000 - 32.138 ppm 06/07/2024 8:37 AM EDT [facility] ANTONINO GLABRATA Not Detected 23.000 - 32.138 ppm 06/07/2024 8:37 AM EDT [facility] ANTONINO KRUSEI 0.000 23.000 - 32.271 ppm 06/07/2024 8:37 AM EDT [facility] ANTONINO KRUSEI Not Detected 23.000 - 32.271 ppm 06/07/2024 8:37 AM EDT [facility] CHLAMYDIA TRACHOMATIS 0.000 23.000 - 31.467 ppm 06/07/2024 8:37 AM EDT [facility] CHLAMYDIA TRACHOMATIS Not Detected 23.000 - 31.467 ppm 06/07/2024 8:37 AM EDT [facility] GARDNERELLA VAGINALIS 0.000 19.961 - 24.689 ppm 06/07/2024 8:37 AM EDT [facility] GARDNERELLA VAGINALIS Not Detected 19.961 - 24.689 ppm 06/07/2024 8:37 AM EDT [facility] MEGASPHAERA (TYPES 1, 2) 0.000 19.961 - 24.689 ppm 06/07/2024 8:37 AM EDT [facility] MEGASPHAERA (TYPES 1, 2) Not Detected 19.961 - 24.689 ppm 06/07/2024 8:37 AM EDT [facility] NEISSERIA GONORRHOEAE 0.000 23.000 - 32.117 ppm 06/07/2024 8:37 AM EDT [facility] NEISSERIA GONORRHOEAE Not Detected 23.000 - 32.117 ppm 06/07/2024 8:37 AM EDT [facility] TRICHOMONAS VAGINALIS 0.000 23.000 - 32.119 ppm 06/07/2024 8:37 AM EDT [facility] TRICHOMONAS VAGINALIS Not Detected 23.000 - 32.119 ppm 06/07/2024 8:37 AM EDT [facility] MYCOPLASMA GENITALIUM 0.000 19.961 - 24.689 ppm 06/07/2024 8:37 AM EDT [facility] MYCOPLASMA GENITALIUM Not Detected 19.961 - 24.689 ppm 06/07/2024 8:37 AM EDT [facility] Tissue 06/06/2024 11:5 3 AM EDT 06/07/2024 1:27 AM EDT us Sarah NGUYEN LAB BLOOD ORDERABLES Final Resul t [facility] [address] [place] [address] * IGP,APTIMA HPV,AGE GDLN (06/06/2024 11:24 AM EDT) AGE GDLN ACOG TESTING Note . [facility] Comment: TESTS RESULT FLAG UNITS REF RANGE LAB Clinician Provided Cytology Information Source.............Cervix Other.............. No. of containers..01 ThinPrep Vial Age Algo ACOG Shila... 21-29 01 FLAG LEGEND: L-Low Normal,H-High Normal,LL-Alert Low,HH-Alert High <-Panic Low,>-Panic High,A-Abnormal,AA-Critical Abnormal Performed at: 01 =G [address] [address] Sarai Durant MD, IGP, RFX APTIMA HPV ASCU Note . [facility] Comment: TESTS RESULT FLAG UNITS REF RANGE LAB DIAGNOSIS: 02 NEGATIVE FOR INTRAEPITHELIAL LESION OR MALIGNANCY. THIS SPECIMEN WAS RESCREENED PART OF OUR MOLT[employer] IRON POURER PROGRAM. Specimen adequacy: 02 Satisfactory for evaluation. No endocervical component is identified. An endocervical component is not commonly seen in the patient. Performed by: 03 My Kraus, Treating Plant Operator (ASCP) QC reviewed by: 02 Debbie Pagan, Treating Plant Operator (ASCP) . 02 Note: Note 02 The Pap [...] <-Panic Low,>-Panic High,A-Abnormal,AA-Critical Abnormal Performed at: [address] [address] Sarai Durant MD, 03 [facility] [address] [address] Marito Torres PhD, Performed at: = - [address] [id number] Environmental Attorney: Sarai Durant MD, Phone: [phone] Performed at: [address] [id number] Environmental Attorney: Sarai Durant MD, Phone: [phone] 06/06/2024 11:2 4 AM EDT 06/06/2024 3:12 PM EDT Narrative [facility] - 06/10/2024 4:09 PM EDT SPATULA-ALONE CERVIX us Sarah NGUYEN LAB BLOOD ORDERABLES Final Resul t Performing Organization Address City/[facility]/ZIP Co de Phone Number [facility] * Pap Smear (06/06/2024 12:00 AM EDT) Swab Cervical swab / Unknown Noms Justine Carter Nurse LAB CYTOLOGY ORDERABLES Final Result Performing Organization Address City/[facility]/ZIP Co de Phone Number EXTERNAL LAB from Last 3 Months Insurance BCBS Care Teams Detasseling Crew Supervisor Relationship Specialty Start Date End Date Angel Seay MD [address] [place] [address] PCP - General Family Medicine 01/26/24 Alina Schmitz NP [address] [place] [address] Nurse Practitioner Family Medicine 01/26/24
--- OUTSIDE RECORDS SUMMARY | 2024-08-25 08:19 | XMS_ITS | Encounter Summary ---
Author Organization [facility] tem Address [id number] [address] [place] [address] Care Team Providers Care Oxygen Equipment Technician Name Role Phone No Pcp, No Pcp Primary Care Provider Unavailabl e Encounter Details Date Type Department Care Team (Late st Contact Info) Description 07/23/2020 Telephone Maternal- Medicine at [facility] [address] [facility] [place] [address] Rita Pena LPN Social History Tobacco Use [...] on filedocumented in this encounter Care Teams Oxygen Equipment Technician Relationship Specialty Start Date End Date No Pcp, [place] [address] PCP - General Family Medicine 08/15/22 documented as of this encounter
--- OUTSIDE RECORDS SUMMARY | 2024-08-25 08:19 | XMS_ITS | Encounter Summary ---
Author Organization [facility] Address [address] [place] [address] Care Team Providers Care Hard Rock Miner Blasting Name Role Phone Angel Seay MD Primary Care Provider [phone] Alina Schmitz NP Unavailable [phone] Encounter Details Date Type Department Care Team (Late st Contact Info) Description 08/17/2024 Abstract [facility] [address] [place] [address] Behzad J[place] Social History Tobacco Use Types Packs/Day Years [...] Recorded Patient Health Questionnaire-2 Score 0 04/29/2023 [place] Depression Scale Answer Date Recorded [place] Depression Scale Total 0 04/13/2023 The thought [...] PM EDT Routine [facility] BCP OB [address] [facility] [place] [address] Sarah Penn PA [address] [facility] [address] [address] [place], [place] [phone] documented as of this encounter Visit Diagnoses Not on filedocumented in this encounter Care Teams Hard Rock Miner Blasting Relationship Specialty Start Date End Date Angel Seay MD [address] [place] [phone] PCP - General Family Medicine 01/26/24 Alina Schmitz NP [address] [place] [address] Nurse Practitioner Family Medicine 01/26/24 documented as of this encounter
--- OUTSIDE RECORDS SUMMARY | 2024-08-25 08:19 | XMS_ITS | Encounter Summary ---
Author Organization [facility] Address [address] [place] [address] Care Team Providers Care Delivery Professional Name Role Phone Angel Seay MD Primary Care Provider Alina Schmitz NP Unavailable [phone] Encounter Details Date Type Department Care Team (Late st Contact Info) Description 05/20/2024 Abstract [facility] OB [address] [place] [phone] Newton Carter, DO [address] [place] [address] Social History Tobacco Use Types Packs/Day Years [...] Recorded Patient Health Questionnaire-2 Score 0 04/29/2023 [place] Depression Scale Answer Date Recorded [place] Depression Scale Total 0 04/13/2023 The thought [...] [facility] [address] Sarah Penn PA [address] [facility] [place] [address] documented as of this encounter Visit Diagnoses Not on filedocumented in this encounter Care Teams Delivery Professional Relationship Specialty Start Date End Date Angel Seay MD [address] [place] [address] PCP - General Family Medicine 01/26/24 Alina Schmitz NP [address] [place] [phone] Nurse Practitioner Family Medicine 01/26/24 documented as of this encounter
--- OUTSIDE RECORDS SUMMARY | 2024-08-25 08:19 | XMS_ITS | Encounter Summary ---
Author Organization [facility] Address [address] [place] [address] Care Team Providers Care Candy Mixer Name Role Phone Angel Seay MD Primary Care Provider Alina Schmitz NP Unavailable [phone] Encounter Details Date Type Department Care Team (Late st Contact Info) Description 08/02/2024 Abstract [facility] OB [address] [place] [phone] Newton Carter, DO [address] [place] [address] Social History Tobacco Use Types Packs/Day Years [...] Recorded Patient Health Questionnaire-2 Score 0 04/29/2023 [place] Depression Scale Answer Date Recorded [place] Depression Scale Total 0 04/13/2023 The thought [...] PM EDT Routine [facility] [address] [phone] Sarah Penn PA [address] [place] [address] documented as of this encounter Visit Diagnoses Not on filedocumented in this encounter Care Teams Candy Mixer Relationship Specialty Start Date End Date Angel Seay MD [address] [place] [address] PCP - General Family Medicine 01/26/24 Alina Schmitz NP [address] [place] [address] Nurse Practitioner Family Medicine 01/26/24 documented as of this encounter
--- OUTSIDE RECORDS SUMMARY | 2024-08-25 08:19 | XMS_ITS | Encounter Summary ---
Author Organization [facility] Address [address] [place] [address] Care Team Providers Care Answering Service Operator Name Role Phone Angel Seay MD Primary Care Provider [phone] Alina Schmitz NP Unavailable [phone] Encounter Details Date Type Department Care Team (Late st Contact Info) Description 05/09/2024 Abstract [facility] OB [address] [place] [phone] Newton Carter, DO [address] [place] [address] Social History Tobacco Use Types Packs/Day Years [...] Recorded Patient Health Questionnaire-2 Score 0 04/29/2023 [place] Depression Scale Answer Date Recorded [place] Depression Scale Total 0 04/13/2023 The thought [...] [address] [facility] [place] [address] Sarah Penn PA [address] [facility] [place] [address] documented as of this encounter Visit Diagnoses Not on filedocumented in this encounter Care Teams Answering Service Operator Relationship Specialty Start Date End Date Angel Seay MD [address] [place] [address] PCP - General Family Medicine 01/26/24 Alina Schmitz NP [address] [place] [address] Nurse Practitioner Family Medicine 01/26/24 documented as of this encounter
--- OUTSIDE RECORDS SUMMARY | 2024-08-25 08:19 | XMS_ITS | Encounter Summary ---
Author Organization [facility] Address [address] [place] [address] Care Team Providers Care Electrical & Instrumentation Supervisor Name Role Phone Angel Seay MD Primary Care Provider Alina Schmitz NP Unavailable [phone] Encounter Details Date Type Department Care Team (Late st Contact Info) Description 06/14/2024 Orders Only [facility] [address] [place] [phone] Rachael Heard LPN [address] [place] [id number] Social History Tobacco Use Types Packs/Day Years [...] Recorded Patient Health Questionnaire-2 Score 0 04/29/2023 [place] Depression Scale Answer Date Recorded [place] Depression Scale Total 0 04/13/2023 The [...] Routine [facility] [address] [facility] [place] [address] Sarah Penn PA [address] [place] [address] documented as of this encounter Procedures Procedure [...] on filedocumented in this encounter Care Teams Electrical & Instrumentation Supervisor Relationship Specialty Start Date End Date Angel Seay MD [address] [place] [address] PCP - General Family Medicine 01/26/24 Alina Schmitz NP [address] [place] [address] Nurse Practitioner Family Medicine 01/26/24 documented as of this encounter
--- OUTSIDE RECORDS SUMMARY | 2024-08-25 08:19 | XMS_ITS | Encounter Summary ---
[facility] tem Address [id number] [address] [place] [address] Care Team Providers Care Fast Food Sales Assistant Name Role Phone No Pcp, No Pcp Primary Care Provider Unavailabl e Reason for Referral * Diagnostic Imaging (Routine) - Closed Specialty Diagnoses / Procedures Referred By Contac t Referred To Contact Maternal and Medicine Diagnoses High risk with low PAPPA (-associated plasma protein A) Procedures [facility] with or without consult rGegory Agarwal MD Phone: tel: fax: Maternal- Medicine at [facility] [address] [place] [address] Phone: tel: fax: Referral ID Status Reason Start Date Expiration Date Visits Re quested Visits Authorized [id number] Closed 07/23/2020 07/23/2021 1 1 Encounter Details Date Type Department Care Team (Late st Contact Info) Description 07/23/2020 Orders Only Maternal- Medicine at [facility] [address] [place] [address] Gregory Agarwal MD [address] [facility], [address] [place] [id number] High risk with low PAPPA (-associated [...] as of this encounter Results * [facility] OB FOLLOW-UP, 1 FETUS (08/21/2020 12:48 PM EDT) Anatomical Region Laterality Modality Pelvis Ultrasound 08/21/2020 12:4 3 PM EDT Impressions 08/21/2020 3:26 PM EDT IMPRESSION: 1. Single intrauterine with expected interval growth from the previous ultrasound. 2. Amniotic fluid index is normal. Narrative 08/21/2020 3:26 PM EDT OBSTETRICS REPORT (Signed Final 08/21/2020 15:26) PATIENT INFO: ID #: [id number] : [birth year] (20 yrs)(F) Name: SARAH BRADLEYELLE Visit Date: 08/21/2020 12:43 LISBETH PERFORMED BY: Performed By: Danni Gan RDMS Attending: Marshall Cheng MD Referred By: [facility] Ref. Address: [facility] [address] [place], [place] [address] Location: [facility] SERVICE(S) PROVIDED: OB Follow-up, 1 fetus [id number] INDICATIONS: Screening for follow-up survey Z36.2 Screening [...] Final 08/21/2020 15:26) PATIENT INFO: ID #: [id number] : [birth year] (20 yrs)(F) Name: SARAH VICKERS Visit Date: 08/21/2020 12:43 LISBETH PERFORMED BY: Performed By: Danni Gan RDMS Attending: Marshall Cheng MD Referred By: [facility] Ref. Address: [address] [place], [place] [address] Location: [facility] SERVICE(S) PROVIDED: OB Follow-up, 1 fetus [id number] INDICATIONS: Screening for follow-up survey Z36.2 Screening [...] index is normal. us Gregory Agarwal MD [facility] US ORDERABLES Final Result documented in this encounter Visit Diagnoses Diagnosis High risk with low PAPPA (-associated plasma protein A)- Primary High risk with low PAPPA (-associated plasma protein A) Encounter for other screening follow-up Encounter for screening for growth retardation Supervision of high risk , unspecified, unspecified trimester Obesity complicating , unspecified trimester documented in this encounter Care Teams Fast Food Sales Assistant Relationship Specialty Start Date End Date No Pcp, [place] [address] PCP - General Family Medicine 08/15/22 documented as of this encounter
--- OUTSIDE RECORDS SUMMARY | 2024-08-25 08:19 | XMS_ITS | Encounter Summary ---
Author Organization [facility] Address [address] [place] [address] Care Team Providers Care Life Insurance Sales Name Role Phone Angel Seay MD Primary Care Provider [phone] Alina Schmitz NP Unavailable [phone] Encounter Details Date Type Department Care Team (Late st Contact Info) Description 08/11/2024 Bamboo flowsheet [facility] [address] [place] [address] Newton Carter, DO [address] [place], [place] [id number] Social History Tobacco Use Types Packs/Day Years [...] Recorded Patient Health Questionnaire-2 Score 0 04/29/2023 [place] Depression Scale Answer Date Recorded [place] Depression Scale Total 0 04/13/2023 The thought [...] PM EDT Routine [facility] [address] [place] [address] Sarah Penn PA [address] [facility] [address] [place] [address] documented as of this encounter Visit Diagnoses Not on filedocumented in this encounter Care Teams Life Insurance Sales Relationship Specialty Start Date End Date Angel Seay MD [address] [place] [address] PCP - General Family Medicine 01/26/24 Alina Schmitz NP [address] [place] [address] Nurse Practitioner Family Medicine 01/26/24 documented as of this encounter
--- OUTSIDE RECORDS SUMMARY | 2024-08-25 08:23 | XMS_ITS | CCD ---
Author Organization [facility] CliniSywy Care Team Providers Care Template Worker Name Role Phone AICHHOLZ, JACKERMAN ALINA Primary Care Unavailable KOFI CURRIE Consulting Unavailable KOFI CURRIE Admitting Unavailable KOFI CURRIE Attending Unavailable AICHHOLZ, JACKERMAN ALINA Primary Care Unavailable QUIQUE, DR KECIA Devi Consulting Unavailable KOFI CURRIE Attending Unavailable KOFI CURRIE Admitting Unavailable KOFI CURRIE Consulting Unavailable KOFI CURRIE Attending [facility]available [facility] DR MADRID Referring Unavailable AICHHOLZ, JACKERMAN ALINA Primary Care Unavailable KOFI CURRIE Consulting Unavailable KOFI CURRIE Admitting Unavailable KARASIK, DR STRONG Attending Unavailable AICHHOLZ, JACKERMAN ALINA Primary Care Unavailable KARASIK, DR STRONG Consulting Unavailable KARASIK, DR STRONG Admitting Unavailable KARASIK, DR STRONG Procedure Practitioner Unava ilable KOFI CURRIE Consulting Unavailable KOFI CURRIE Attending Unavailable AICHHOLZ, JACKERMAN ALINA Primary Care Unavailable KOFI CURRIE Admitting Unavailable AICHHOLZ, JACKERMAN ALINA Primary Care Unavailable KARASIK, DR STRONG Consulting Unavailable KARASIK, DR STRONG Admitting Unavailable KARASIK, DR STRONG Attending Unavailable KOFI CURRIE Consulting Unavailable KOFI CURRIE Attending Unavailable AICHHOLZ, JACKERMAN ALINA Primary Care Unavailable KOFI CURRIE Admitting Unavailable AICHHOLZ, JACKERMAN ALINA Primary Care Unavailable KOFI CURRIE Consulting Unavailable KOFI CURRIE Admitting Unavailable KOFI CURRIE Attending Unavailable AICHHOLZ, JACKERMAN ALINA Admitting Unavailable AICHHOLZ, JACKERMAN ALINA Attending Unavailable AICHHOLZ, JACKERMAN ALINA Consulting Unavailable AICHHOLZ, JACKERMAN ALINA Primary Care Unavailable Unavailable Primary Care Provider Unavailabl e Unallocated, Noms Provider Primary Care Provider MD Dawn Huitron Attending Provider [phone] NO FAMILY, PHYSICIAN Primary Care Provider Unava [...] kristopher Dawood MASSEY, Angel Primary Care Provider [phone] Nadir GAS TORCH BRAZIER, Alina Unavailable NEWTON CARTER Attending Unavailable SARAH [...] Negative Negative - 4(70) +++ mg/dL [facility] Blood, UA Negative Negative - 50 Sherman/mcL [facility] Clarity, UA Clear [facility] Color, UA Yellow [facility] Glucose, UA Negative Negative - 1999(110) ++++ mg/dL [facility] Interpretation and review of laboratory results Normal [facility] Ketones, UA Negative Negative - 160(16) ++++ mg/dL [facility] Leukocytes, UA Positive Negative - 500+++ Jackie/mcL [facility] Comment on above: SMALL Nitrite, UA Negative Negative - Positive [facility] pH, UA 7 5 - 9 [facility] Protein, UA Negative Negative - 1999(20) ++++ mg/dL [facility] Spec Grav, UA 1.02 1 - 1.03 [facility] Urobilinogen, UA 0.2 0.2 - 12 mg/dL Pending sale to [facility] US OB CERVICAL LENGTHon 07-08 [place] [address] Ultrasound Report Signed Patient: SARAH ARCE MR#: [id number] : 2000 Acct:[id number] Age/Sex: 24 / F ADM Date: 08/02/24 Loc: US Attending Dr: Yris Castellanos Ordering Physician: Yris Castellanos Date of Service: 08/02/24 Procedure(s): US OB cervical length Accession Number(s): [id number] cc: Alina Schmitz GAS TORCH BRAZIER; Yris Castellanos [address] [address] Patient Name: SARAH ARCE MRN: [id number] date: 2000 Sex: F Assigned Patient Location: Current Patient Location: US Accession/Order Number: [id number] Exam Date: 08/02/2024 18:52 Report Date: 08/02/2024 [...] Daniels M.D. 08/02/2024 6:58 PM Dictation Location: [place] [address] Electronically authenticated by: [id number] Y Date: 08/02/2024 18:58 Dictated By: Roel Daniels M.D. Signed By: 08/02/241899 DD/ 57 TD/TT: Livestock Trader: [facility] Radiology, Radiologist, - 08/02/2024 [place] [address] Ultrasound Report Signed Patient: SARAH ARCE MR#: [id number] : 2000 Acct:[id number] Age/Sex: 24 / F ADM Date: 08/02/24 Loc: US Attending Dr: Yris Castellanos Ordering Physician: Yris Castellanos Date of Service: 08/02/24 Procedure(s): US OB cervical length Accession Number(s): [id number] cc: Alina Schmitz NP; Yris Castellanos The [address] [address] Patient Name: SARAH ARCE MRN: [facility]:[id number] date: 2000 Sex: F Assigned Patient Location: Current Patient Location: Accession/Order Number: [id number] Exam Date: 08/02/2024 18:52 Report Date: 08/02/2024 [...] Daniels M.D. 08/02/2024 6:58 PM Dictation Location: [place] [address] Electronically authenticated by: [id number] Y Date: 08/02/2024 18:58 Dictated By: Roel Daniels M.D. Signed By: 08/02/24 190 DD/ 57 TD/TT: Livestock Trader: [facility] Radiology Study observation (narrative) [facility] US OB CERVICAL LENGTHOrdered By: Radiologist Radiology on 08-02-2024 [facility] Work Phone: Urinalysis macro (dipstick) panel (U)on 07-20-2024 Bilirubin, UA Negative Negative - 4(70) +++ mg/dL [facility] Blood, UA Negative Negative - 50 Sherman/mcL [facility] Clarity, UA Clear [facility] Color, UA Yellow [facility] Glucose, UA Negative Negative - 2000(110) ++++ mg/dL [facility] Interpretation and review of laboratory results Normal [facility] Ketones, UA Negative Negative - 160(16) ++++ mg/dL [facility] Leukocytes, UA Positive Negative - 500+++ Jackie/mcL [facility] Comment on above: small Nitrite, UA Negative Negative - Positive [facility] pH, UA 7 5 - 9 [facility] Protein, UA Positive Negative - 2000(20) ++++ mg/dL [facility] Comment on above: 30 Spec Grav, UA 1.025 1 - 1.03 [facility] Urobilinogen, UA 0.2 0.2 - 12 mg/dL Pending sale to [facility] No Panel InformationOrdered By: Radiologist Radiology on 07-06-2024 [facility] Work Phone: No Panel Informationon 07-06 Radiology Study observation (narrative) [facility] US OB ANATOMYon 07-06-[address] [address] Ultrasound Report Signed Patient: SARAH ARCE MR#: [id number] : 2000 Acct:[id number] Age/Sex: 24 / F ADM Date: 07/05/24 Loc: US Attending Dr: Sarah Kern Ordering Physician: Sarah Kern Date of Service: 07/05/24 Procedure(s): US OB anatomy Accession Number(s): [id number] cc: Alina Schmitz NP; Sarah Kern [address] [address] Patient Name: SARAH ARCE MRN: [id number] date: 2000 Sex: F Assigned Patient Location: US Current Patient Location: Accession/Order Number: [id number] Exam Date: 07/06/2024 08:58 Report Date: 07/06/2024 [...] Jr., D.O. 07/06/2024 9:06 AM Dictation Location: [place] [address] Electronically authenticated by: [id number] Y Date: 07/06/2024 09:06 Dictated By: Pedro Luis Jack M.D. Signed By: 07/06/24908 DD/ 5 TD/TT: Livestock Trader: [facility] Radiology, Radiologist, MD - 07/06/2024 [place] [address] Ultrasound Report Signed Patient: SARAH ARCE MR#: [id number] : 2000 Acct:[id number] Age/Sex: 24 / F ADM Date: 07/05/24 Loc: US Attending Dr: Sarah Kern Ordering Physician: Sarah Kern Date of Service: 07/05/24 Procedure(s): US OB anatomy Accession Number(s): [id number] cc: Alina Schmitz NP; Sarah Kern The [place] [id number] Patient Name: SARAH ARCE MRN: [facility]:[id number] date: 2000 Sex: F Assigned Patient Location: US Current Patient Location: Accession/Order Number: [id number] Exam Date: 07/06/2024 08:58 Report Date: 07/06/2024 [...] Jr., D.OMercedez 07/06/2024 9:06 AM Dictation Location: [email or web address] Electronically authenticated by: [id number] Y Date: 07/06/2024 09:06 Dictated By: Pedro Luis Jack M.D. Signed By: 07/06/24908 DD/ 5 TD/TT: Livestock Trader: [facility] OB CERVICAL LENGTHon 06-09 [place] [id number] Ultrasound Report Signed Patient: SARAH ARCE MR#: [id number] : 2000 Acct:[id number] Age/Sex: 24 / F ADM Date: 07/05/24 Loc: US Attending Dr: Sarah Kern Ordering Physician: Sarah Kern Date of Service: 07/05/24 Procedure(s): US OB cervical length Accession Number(s): [id number] cc: Alina Schmitz NP; Sarah Kern [address] [address] Patient Name: SARAH ARCE MRN: [id number] date: 2000 Sex: F Assigned Patient Location: US Current Patient Location: Accession/Order Number: [id number] Exam Date: 07/06/2024 08:58 Report Date: 07/06/2024 [...] Jr., D.O. 07/06/2024 9:06 AM Dictation Location: [place] [address] Electronically authenticated by: [id number] Y Date: 07/06/2024 09:06 Dictated By: Pedro Luis Jack M.D. Signed By: 07/06/24908 DD/ 5 TD/TT: Livestock Trader: [facility] Radiology, Radiologist, - 07/06/2024 [place] [address] Ultrasound Report Signed Patient: SARAH ARCE MR#: [id number] : 2000 Acct:[id number] Age/Sex: 24 / F ADM Date: 07/05/24 Loc: US Attending Dr: Sarah Kern Ordering Physician: Sarah Kern Date of Service: 07/05/24 Procedure(s): US OB cervical length Accession Number(s): [id number] cc: Alina Schmitz NP; Sarah Kern The [place] [id number] Patient Name: SARAH ARCE MRN: [id number] date: 2000 Sex: F Assigned Patient Location: Current Patient Location: Accession/Order Number: [id number] Exam Date: 07/06/2024 08:58 Report Date: 07/06/2024 [...] Jr., D.O. 07/06/2024 9:06 AM Dictation Location: [place] [address] Electronically authenticated by: [id number] Y Date: 07/06/2024 09:06 Dictated By: Pedro Luis Jack M.D. Signed By: 07/06/24908 DD/ 5 TD/TT: Livestock Trader: JODEE Canales IGP,APTIMA HPV,AGE GDLNon AGE GDLN ACOG TESTING Note . [facility] Comment on above: TESTS RESULT FLAG UN ITS REF RANGE LAB Clinician Provided Cytology Information Source.............Cervix Other.............. No. of containers..01 ThinPrep Vial Age Christopher CLARK Shila... FLAG LEGEND: L-Low Normal,H-High Normal,LL-Alert Low,HH-Alert High <-Panic Low,>-Panic High,A-Abnormal,AA-Critical Abnormal Performed at: 01 =G [facility] [address] Sarai Durant MD, IGP, RFX APTIMA HPV ASCU Note . [facility] Comment on above: TESTS RESULT FLAG UN ITS REF RANGE LAB DIAGNOSIS: 02 NEGATIVE FOR INTRAEPITHELIAL LESION OR MALIGNANCY. THIS SPECIMEN WAS RESCREENED PART OF OUR CHARGE AIDE PROGRAM. Specimen adequacy: 02 Satisfactory for evaluation. No endocervical component is identified. An endocervical component is not commonly seen in the patient. Performed by: 03 My Kraus, Schedule Manager (ASC) QC reviewed by: 02 Debbie Pagan, Schedule Manager (ASC) . 02 Note: Note 02 The [...] <-Panic Low,>-Panic High,A-Abnormal,AA-Critical Abnormal Performed at: [address] [address] Sarai Durant MD, 03 [facility] [address] Melissa PhD, Performed at: [facility] [address] [id number] Photo Retoucher: Sarai Durant MD, Phone: [phone] Performed at: [address] [id number] Photo Retoucher: Sarai Durant MD, Phone: [phone] [facility] GLU[facility]SE 1 HOURon 06-07-2024 Glucose [Mass/Vol] 108 mg/dL NINF - 13 0 mg/dL [facility] RECURRENT VAGINITIS (HTRX)on 06-07-2024 ATOPOBIUM VAGINAE 0 [facility] ATOPOBIUM VAGINAE Not detected [facility] BVAB 2,3 (BACTERIAL VAGINOSIS ASSOCIATED BACTERIA 2, 3); MOBILUNCUS SPP 0 [facility] BVAB 2,3 (BACTERIAL VAGINOSIS ASSOCIATED BACTERIA 2, 3); MOBILUNCUS SPP Not detected [facility] ANTONINO ALBICANS, PARAPSILOSIS, TROPICALIS 0 [facility] ANTONINO ALBICANS, PARAPSILOSIS, TROPICALIS Not detected [facility] ANTONINO GLABRATA 0 [facility] ANTONINO GLABRATA Not detected [facility] ANTONINO KRUSEI 0 [facility] ANTONINO KRUSEI Not detected [facility] CHLAMYDIA TRACHOMATIS 0 [facility] CHLAMYDIA TRACHOMATIS Not detected [facility] GARDNERELLA VAGINALIS 0 [facility] GARDNERELLA VAGINALIS Not detected [facility] MEGASPHAERA (TYPES 1, 2) 0 [facility] MEGASPHAERA (TYPES 1, 2) Not detected [facility] MYCOPLASMA GENITALIUM 0 [facility] MYCOPLASMA GENITALIUM Not detected N [facility] NEISSERIA GONORRHOEAE 0 [facility] NEISSERIA GONORRHOEAE Not detected N [facility] TRICHOMONAS VAGINALIS 0 [facility] TRICHOMONAS VAGINALIS Not detected N [facility] Urinalysis macro (dipstick) panel (U)on 06-06-2024 Bilirubin, UA Positive Negative - 4(70) +++ mg/dL [facility] Comment on above: small Blood, UA Negative Negative - 50 Sherman/mcL [facility] Clarity, UA Clear [facility] Color, UA Hanna [facility] Glucose, UA Negative Negative - 1999(110) ++++ mg/dL [facility] Interpretation and review of laboratory results Abnormal [facility] Ketones, UA Positive Negative - 160(16) ++++ mg/dL [facility] Comment on above: 160 Leukocytes, UA Negative Negative - 500+++ Jackie/mcL [facility] Nitrite, UA Negative Negative - Positive [facility] pH, UA 5.5 5 - 9 [facility] Protein, UA Positive Negative - 1999(20) ++++ mg/dL [facility] Comment on above: 100 Spec Grav, UA 1.03 1 - 1.03 [facility] Urobilinogen, UA 0.2 0.2 - 12 mg/dL Pending sale to [facility] MLR HEMOGLOBIN A1Con 025 Glucose [Mass/Vol] 105 mg/dL [facility] HbA1c (Bld) [Mass fraction] 5.3 % 4.5 - 6.2 % [facility] Comment on above: ADA RECOMMENDED LIMI T 4.0 - 6.0 ADA THERAPEUTIC TARGET < 7.0 ACTION SUGGESTED > 7.0 CL[facility] Urinalysis macro (dipstick) panel (U)on 05-09-2024 Bilirubin, UA Positive Negative - 4(70) +++ mg/dL [facility] Comment on above: small Blood, UA Negative Negative - 50 Sherman/mcL [facility] Clarity, UA Clear [facility] Color, UA Yellow [facility] Glucose, UA Negative Negative - 2000(110) ++++ mg/dL [facility] Interpretation and review of laboratory results Abnormal [facility] Ketones, UA Positive Negative - 160(16) ++++ mg/dL [facility] Comment on above: trace Leukocytes, UA Positive Negative - 500+++ Jackie/mcL [facility] Comment on above: small Nitrite, UA Negative Negative - Positive [facility] pH, UA 6.5 5 - 9 [facility] Protein, UA Positive Negative - 2000(20) ++++ mg/dL [facility] Comment on above: 100mg/dL Spec Grav, UA 1.025 1 - 1.03 [facility] Urobilinogen, UA 1.0 0.2 - 12 mg/dL Pending sale to [facility] HCG ( test) Ql (U)o n 04-07-2024 Interpretation and review of laboratory results Abnormal [facility] Preg Test, Ur Positive Negative Pending sale to [facility] US OB TRANSVAGINALon 025 US OB TRANSVAGINAL [...] report is generated using voice recognition reporting (Calsys). On occasion Calsys erroneously drops words from the report or [...] Negative Negative - 4(70) +++ mg/dL [facility] Blood, UA Positive Negative - 50 Sherman/mcL [facility] Comment on above: trace Clarity, UA Clear [facility] Color, UA Yellow [facility] Glucose, UA Negative Negative - 2000(110) ++++ mg/dL [facility] Interpretation and review of laboratory results Abnormal [facility] Ketones, UA Positive Negative - 160(16) ++++ mg/dL [facility] Comment on above: trace Leukocytes, UA Trace Negative - 500+++ Jackie/mcL [facility] Nitrite, UA Negative Negative - Positive [facility] pH, UA 5.5 5 - 9 [facility] Protein, UA Trace Negative - 2000(20) ++++ mg/dL [facility] Spec Grav, UA 1.03 1 - 1.03 [facility] Urobilinogen, UA 0.2 0.2 - 12 mg/dL Pending sale to [facility] PREG QUANT HCGon 024 HCG QUANTITATIVE 5 mIU/mL [facility] Comment on above: 5-50 0.2-1 WEEK 50-500 1-2 WEEKS 100-5,000 2-3 WEEKS 500-10,000 3-4 WEEKS 1,000-50,000 4-5 WEEKS 10,000-100,000 5-6 WEEKS 15,000-200,000 6-8 WEEKS 10,000-100,000 2-3 [facility] P[facility] QUANT HCGon 024 HCG QUANTITATIVE 16 mIU/mL [facility] Comment on above: 5-50 0.2-1 WEEK 50-500 1-2 WEEKS 100-5,000 2-3 WEEKS 500-10,000 3-4 WEEKS 1,000-50,000 4-5 WEEKS 10,000-100,000 5-6 WEEKS 15,000-200,000 6-8 WEEKS 10,000-100,000 2-3 MON[facility] PREG QUANT HCGon 024 HCG QUANTITATIVE 70 mIU/mL [facility] Comment on above: 5-50 0.2-1 WEEK 50-500 1-2 WEEKS 100-5,000 2-3 WEEKS 500-10,000 3-4 WEEKS 1,000-50,000 4-5 WEEKS 10,000-100,000 5-6 WEEKS 15,000-200,000 6-8 WEEKS 10,000-100,000 2-3 [facility] ALL CBC WITH AUTO DIFFon BASOPHILS ABSOLUTE AUTO 0.0 [facility] Basophils/100 WBC (Bld) 0.2 % 0.2 - 2.0 % [facility] Eosinophils/100 WBC (Bld) 0.7 % Low 0.9 - 7.0 % [facility] Erythrocyte distribution width (RBC) [Ratio] 13.3 % 11.0 - 15.0 % [facility] Hematocrit (Bld) [Volume fraction] 37.9 % 36.0 - 48.0 % [facility] Hemoglobin (Bld) [Mass/Vol] 13.0 g/dL 12.0 - 16.0 g/dL [facility] IMMATURE GRANULOCYTES ABS AUTO 0.03 [facility] Immature granulocytes/100 WBC (Bld) 0.3 % 0.0 - 0.5 % [facility] Interpretation and review of laboratory results Abnormal [facility] LYMPHOCYTES ABSOLUTE AUTO 1.7 [facility] Lymphocytes/100 WBC (Bld) 14.9 % Low 20.5 - 60.0 % [facility] MCH (RBC) [Entitic mass] 27.6 pg 26.7 - 34.0 pg [facility] MCHC (RBC) [Mass/Vol] 34.3 g/dL 29.9 - 35.2 g/dL [facility] MCV (RBC) [Entitic vol] 80.5 fL Low 81.0 - 99.0 fL [facility] MONOCYTES ABSOLUTE AUTO 0.6 [facility] Monocytes/100 WBC (Bld) 5.6 % 1.7 - 12.0 % [facility] NEUTROPHILS ABSOLUTE AUTO 8.7 High [facility] Neutrophils/100 WBC (Bld) 78.3 % High 43.0 - 75.0 % [facility] Platelet mean volume (Bld) [Entitic vol] 9.1 fL Low 9.5 - 13.5 fL [facility] TBH EO # 0.1 [facility] PLT 297 [facility] TB RBC 4.71 [facility] WBC 11.1 High [facility] Leif 11-13-2023 L Specimen: [id number] Received: 11/16/23 Status: RUBINA Sharpe Num: [id number] Spec Type: Surgical Subm Dr: Newton Carter Tissues: A Products of Conception - Spontaneous or Missed (POC MOLAR Procedures: HE/3, Gross/Micro L4 Age/ Patient Sex Location Account Attending Physician Sarah Arce 23/F [id number] Newton Carter SPEC NUM: [id number] RECD: 11/16/23 STATUS: RUBINA SHARPE NUM: [id number] MARY: 11/13/[address]: Newton Carter ENTERED: 11/16/[address] [facility] [address]: Myriam,Lab SPEC TYPE: Surgical DEPT: TOBY WOOD ENTERED BY: [id number] RECV BY: [id number] ORDERED: HE/3, Gross/Micro L4 ORDERED: HE/3, Gross/Micro [...] the complete mole Clinical Information Molar Specimen: [id number] Received: 11/16/23 Status: RUBINA Sharpe Num: [id number] Spec Type: Surgical Subm Dr: Newton Carter Tissues: A Products of Conception - Spontaneous or Missed (POC MOLAR Procedures: , Gross/Micro L4 Patient: Arce,Amy [id number] (Continued) Specimen: [id number] Received: 11/16/23 (Continued) Signed (signature on file) Antonia Camarena MD 11/21/23 1057 Specimen: [id number] Received: 11/16/23 Status: RUBINA Sharpe Num: [id number] Spec Type: Surgical Subm Dr: Newton Carter Tissues: A Products of Conception - Spontaneous or Missed (POC MOLAR Procedures: HE/3, Gross/Micro L4 Patient: ClaudeSarah [id number] (Continued) Specimen: [id number] Received: 11/16/23 (Continued) Gross Description The specimen was received in formalin with the patient's name and products of conception and consists of multiple jasmine-pink hemorrhagic soft tissue fragments measuring 12.0 x 11.0 x 1.5 cm in aggregate. Multiple cystic structures are identified ranging in size from 0.1 to 0.5 cm. The cysts are filled with a clear fluid. Executive Receptionist sections of the cystic structures are submitted in cassettes A1-A3 DM Microscopic Description Microscopic examinations are performed supporting the above interpretation CPT Codes 51020 Specimen: [id number] Received: 11/16/23 Status: RUBINA Sharpe Num: [id number] Spec Type: Surgical Subm Dr: Newton Carter Tissues: A Products of Conception - Spontaneous or Missed (POC MOLAR Procedures: /3, Gross/Lisa L4 Patient: Sarah Arce [id number] (Continued) Signed (signature on file) Antonia Camarena MD 11/21/23 8624 Normal The [facility] ALL CBC WITH AUTO DIFFon BASOPHILS ABSOLUTE AUTO 0.0 [facility] Basophils/100 WBC (Bld) 0.2 % 0.2 - 2.0 % [facility] Eosinophils/100 WBC (Bld) 1.3 % 0.9 - 7.0 % [facility] Erythrocyte distribution width (RBC) [Ratio] 13.3 % 11.0 - 15.0 % [facility] Hematocrit (Bld) [Volume fraction] 37.4 % 36.0 - 48.0 % [facility] Hemoglobin (Bld) [Mass/Vol] 12.6 g/dL 12.0 - 16.0 g/dL [facility] IMMATURE GRANULOCYTES ABS AUTO 0.02 [facility] Immature granulocytes/100 WBC (Bld) 0.2 % 0.0 - 0.5 % [facility] Interpretation and review of laboratory results Abnormal [facility] LYMPHOCYTES ABSOLUTE AUTO 1.4 [facility] Lymphocytes/100 WBC (Bld) 12.1 % Low 20.5 - 60.0 % [facility] MCH (RBC) [Entitic mass] 27.0 pg 26.7 - 34.0 pg [facility] MCHC (RBC) [Mass/Vol] 33.7 g/dL 29.9 - 35.2 g/dL [facility] MCV (RBC) [Entitic vol] 80.1 fL Low 81.0 - 99.0 fL [facility] MONOCYTES ABSOLUTE AUTO 0.7 [facility] Monocytes/100 WBC (Bld) 6.4 % 1.7 - 12.0 % [facility] NEUTROPHILS ABSOLUTE AUTO 9.2 High [facility] Neutrophils/100 WBC (Bld) 79.8 % High 43.0 - 75.0 % [facility] Platelet mean volume (Bld) [Entitic vol] 9.1 fL Low 9.5 - 13.5 fL [facility] EO # 0.2 [facility] TB PLT 284 [facility] RBC 4.67 [facility] WBC 11.5 High [facility] Automated basophil %Ordered By: CHUCK Huitron on 04-30-2023 Basophils/100 WBC (Bld) 0.7 % Normal . [facility] Comment on above: Performed By: #### C BC, HCGQNT #### [facility] [address] Automated basophil countOrde red By: CHUCK Huitron on 04-30-2023 Basophils (Bld) [#/Vol] 0.1 10*3/uL Normal 0.0-0.2 [facility] Comment on above: Result Comment: PERF ORMED BY: [place] [address] PATHOLOGIST SEWING MACHINE OPERATOR CHUY PALOMO M.D. Performed By: #### C BC, HCGQNT #### [address] Automated blood monocyte cou ntOrdered By: CHUCK Huitron on 04-30-2023 Monocytes (Bld) [#/Vol] 0.5 10*3/uL Normal 0.0-0.8 [facility] Comment on above: Performed By: #### C BC, HCGQNT #### [address] Automated eosinophil %Ordere d By: CHUCK Huitron on 04-30-2023 Eosinophils/100 WBC (Bld) 1.3 % Normal . [facility] Comment on above: Performed By: #### C BC, HCGQNT #### [address] Automated eosinophil countOr dered By: CHUCK Huitron on 04-30-2023 Eosinophils (Bld) [#/Vol] 0.1 10*3/uL Normal 0.0-0.45 [facility] Comment on above: Performed By: #### C BC, HCGQNT #### [address] Automated monocyte %Ordered By: CHUCK Huitron on 04-30-2023 Monocytes/100 WBC (Bld) 6.3 % Normal . [facility] Comment on above: Performed By: #### C BC, HCGQNT #### [address] Automated neutrophil %Ordere d By: CHUCK Huitron on 04-30-2023 Neutrophils/100 WBC (Bld) 63.0 % Normal . [facility] Comment on above: Performed By: #### C BC, HCGQNT #### [address] Choriogonadotropin.beta subu nit [Units/volume] in Serum or PlasmaOrdered By: SHANNON Huitron on 04-30-2023 HCG.beta subunit Qn 2358.00 m[IU]/mL [facility] Comment on above: Approximate Approxim ate hCG Gestational Age Range (mIU/ml) (weeks)0.2-1 5-50 1-2 50-500 2-3 100-5,000 3-4 500-10,000 4-5 1,000-50,000 5-6 10,000-100,000 6-8 15,000-200,000 8-12 10,000-100,000 Complete Blood Count Auto Di ffon 04-30-2023 Mean Corpuscular HGB Conc 34.7 g/dL Normal 32.0-35.0 [facility] Comment on above: Performed By: #### C BC, HCGQNT #### [address] NRBC% 0.1 /100{WBC} Normal 0-0.5 [facility] Comment on above: Performed By: #### C BC, HCGQNT #### [address] Erythrocyte distribution wid th [Ratio] by Automated countOrdered By: CHUCK Huitron on 04-30-2023 Erythrocyte distribution width (RBC) [Ratio] 14.1 % Normal 11.9-15.3 [facility] Comment on above: Performed By: #### C BC, HCGQNT #### [address] Erythrocytes [#/volume] in B lood by Automated countOrdered By: CHUCK Huitron on 04-30-2023 RBC (Bld) [#/Vol] 4.40 10*6/uL Normal 3.60-5.00 [facility] Comment on above: Performed By: #### C BC, HCGQNT #### [address] HCG,Quantitativeon HCG,Quantitative 2358.00 m[iU]/mL Normal [facility] Comment on above: Result Comment: Appr oximate Approximate hCG Gestational Age Range (mIU/ml) (weeks) 0.2-1 5-50 1-2 50-500 2-3 100-5,000 3-4 500-10,000 4-5 1,000-50,000 5-6 10,000-100,000 6-8 15,000-200,000 8-12 10,000-100,000 PERFORMED BY: [place] [address] PATHOLOGIST SEWING MACHINE OPERATOR CHUY PALOMO M.D. Performed By: #### C BC, HCGQNT #### [facility] [address] [place] [address] Hematocrit [Volume Fraction] of Blood by Automated countOrdered By: CHUCK Huitron on 04-30-2023 Hematocrit (Bld) [Volume fraction] 35.3 % Normal 34.0-46.4 [facility] Comment on above: Performed By: #### C BC, HCGQNT #### [facility] [address] [place] [address] Hemoglobin [Mass/volume] in BloodOrdered By: CHUCK Huitron on 04-30-2023 Hemoglobin (Bld) [Mass/Vol] 12.2 g/dL Normal 11.8-15.4 [facility] Comment on above: Performed By: #### C BC, HCGQNT #### [facility] [address] [place] [address] [place] Leif 04-30-2023 L Specimen: [id number] Received: 04/30/23 Status: RUBINA Sharpe Num: [id number] Spec Type: Surgical Subm Dr: CHUCK Astorga Tissues: A Products of Conception - Spontaneous or Missed (PRODUCTS OF CONCEPT Procedures: HE/3, Gross/Micro L4 Age/ Patient Sex Location Account Attending Physician Sarah Arce 23/F N3 [id number] CHUCK Astorga SPEC NUM: [id number] RECD: 04/30/23 STATUS: RUBINA SHARPE NUM: [id number] MARY: 04/30/23- SUBM DR: CHUCK Astorga ENTERED: 04/30/[address] [facility] [address]: SPEC TYPE: Surgical DEPT: S ORDERED: [...] is tentatively identified. tissue is not identified. Executive Receptionist sections focused on potential villi. Executive Receptionist sections are submitted in three cassettes labeled A1-A3. CPT Codes 50730 Specimen: [id number] Received: 04/30/23 Status: RUBINA Sharpe Num: [id number] Spec Type: Surgical Subm Dr: CHUCK Astorga Tissues: A Products of Conception - Spontaneous or Missed (PRODUCTS OF CONCEPT Procedures: HE/3, Gross/Micro L4 Patient: Sarah Arce [id number] (Continued) Signed (signature on file) Tavia Abad MD 05/05/23 2315 Normal [facility] Leukocytes [#/volume] correc bridget for nucleated erythrocytes in Blood by Automated counOrdered By: CHUCK Huitron on 04-30-2023 WBC corrected for nucl RBC Auto (Bld) [#/Vol] 8.4 10*3/uL 3.8-11.6 [facility] Leukocytes [#/volume] in Blo od by Automated countOrdered By: CHUCK Huitron on 04-30-2023 WBC (Bld) [#/Vol] 8.4 10*3/uL Normal 3.8-11.6 [facility] Comment on above: Performed By: #### Tyra DELONG HCGQNT #### [facility] [address] [place] [address] Lymphocytes [#/volume] in Bl ood by Automated countOrdered By: CHUCK Huitron on 04-30-2023 Lymphocytes (Bld) [#/Vol] 2.4 10*3/uL Normal 1.00-4.8 [facility] Comment on above: Performed By: #### C SINDI HCGQNT #### [facility] [address] [place] [address] [place] Lymphocytes/100 leukocytes i n Blood by Automated countOrdered By: CHUCK Huitron on 04-30-2023 Lymphocytes/100 WBC (Bld) 28.7 % Normal . [facility] Comment on above: Performed By: #### C SINDI, HCGQNT #### [address] MCH [Entitic mass] by Automa bridget countOrdered By: CHUCK Huitron on 04-30-2023 MCH (RBC) [Entitic mass] 27.8 pg Normal 24.7-34.3 [facility] Comment on above: Performed By: #### C BC, HCGQNT #### [address] MCHC Auto (RBC) [Mass/Vol]Or dered By: CHUCK Huitron on 04-30-2023 MCHC (RBC) [Mass/Vol] 34.7 g/dL 32.0-35.0 [facility] MCV [Entitic volume] by Auto mated countOrdered By: CHUCK Huitron on 04-30-2023 MCV (RBC) [Entitic vol] 80.2 fL Normal 80-100 [facility] Comment on above: Performed By: #### C SINDI, HCGQNT #### [address] Neutrophils [#/volume] in Bl ood by Automated countOrdered By: CHUCK Huitron on 04-30-2023 Neutrophils (Bld) [#/Vol] 5.3 10*3/uL Normal 1.8-7.7 [facility] Comment on above: Performed By: #### C BC, HCGQNT #### [place] [address] [place] Nucleated erythrocytes [Pres ence] in Blood by Automated countOrdered By: CHUCK Huitron on 04-30-2023 Nucleated RBC Auto Ql (Bld) 0.1 /100{WBC} 0-0.5 [facility] Platelet mean volume [Entiti c volume] in Blood by Automated countOrdered By: SHANNON Huitron on 04-30-2023 Platelet mean volume (Bld) [Entitic vol] 6.7 fL Normal 6.3-10.7 [facility] Comment on above: Performed By: #### C BC, HCGQNT #### [address] [place] [address] [facility] Platelets [#/volume] in Bloo d by Automated countOrdered By: CHUCK Huitron on 04-30-2023 Platelets (Bld) [#/Vol] 317 10*3/uL Normal 150-450 [facility] Comment on above: Performed By: #### C BC, HCGQNT #### [facility] [address] [place] [id number] [facility] US transvaginalon 04-30-2023 US transvaginal [facility] Main [place] [address] [place] [address] Ultrasound Report Signed Patient: Sarah Arce MR#: [id number] : 2000 Acct:[id number] Age/Sex: 23 / F ADM Date: 04/29/23 Loc: Room: [address] [place] [address] Type: REG CLI Attending Dr: Dawn Huitron MD Ordering Provider: CHUCK Astorga Date of Service: 04/30/23 US/US pelvic complete: D and C scheduled ([id number]) US/US transvaginal: PRODUCTS OF CONCEPTION WITH PRIOR [...] Usama Peña M.D.04/30/2023 9:37 AM Dictation Location: [place] [address] Tech: Anca Horn Transcribed By: GISSEL 04/30/2337 Dictated By: Usama Peña DO 04/30/23 0933 Signed By: 04/30/2337 Normal [facility] ABO/Rh Retypeon 04-29-2023 ABO/RH Recheck Result Positive Normal [facility] Comment on above: Result Comment: PERF ORMED BY: [place] [address] PATHOLOGIST SEWING MACHINE OPERATOR CHUY PALOMO M.D. Complete Blood Count Auto Di ffon 04-29-2023 Basophils (Bld) [#/Vol] 0.0 10*3/uL Normal 0.0-0.2 [facility] Comment on above: Result Comment: PERF ORMED BY: [place] [address] PATHOLOGIST SEWING MACHINE OPERATOR CHUY PALOMO M.D. Performed By: #### H CGQNT, CBC #### [address] Basophils/100 WBC (Bld) 0.3 % Normal . [facility] Comment on above: Performed By: #### H CGQNT, CBC #### [address] Eosinophils (Bld) [#/Vol] 0.2 10*3/uL Normal 0.0-0.45 [facility] Comment on above: Performed By: #### H CGQNT, CBC #### [address] Eosinophils/100 WBC (Bld) 1.1 % Normal . [facility] Comment on above: Performed By: #### H CGQNT, CBC #### [address] Erythrocyte distribution width (RBC) [Ratio] 13.9 % Normal 11.9-15.3 [facility] Comment on above: Performed By: #### H CGQNT, CBC #### [address] Hematocrit (Bld) [Volume fraction] 39.8 % Normal 34.0-46.4 [facility] Comment on above: Performed By: #### H CGQNT, CBC #### [place] [id number] [place] Hemoglobin (Bld) [Mass/Vol] 13.3 g/dL Normal 11.8-15.4 [facility] Comment on above: Performed By: #### H CGQNT, CBC #### [address] Lymphocytes (Bld) [#/Vol] 2.3 10*3/uL Normal 1.00-4.8 [facility] Comment on above: Performed By: #### H CGQNT, CBC #### [address] Lymphocytes/100 WBC (Bld) 17.0 % Normal . [facility] Comment on above: Performed By: #### H CGQNT, CBC #### [address] MCH (RBC) [Entitic mass] 27.0 pg Normal 24.7-34.3 [facility] Comment on above: Performed By: #### H CGQNT, CBC #### [address] MCV (RBC) [Entitic vol] 80.8 fL Normal 80-100 [facility] Comment on above: Performed By: #### H CGQNT, CBC #### [address] Mean Corpuscular HGB Conc 33.5 g/dL Normal 32.0-35.0 [facility] Comment on above: Performed By: #### H CGQNT, CBC #### [place] [address] [place] Monocytes (Bld) [#/Vol] 0.5 10*3/uL Normal 0.0-0.8 [facility] Comment on above: Performed By: #### H CGQNT, CBC #### [address] Monocytes/100 WBC (Bld) 4.0 % Normal . [facility] Comment on above: Performed By: #### H CGQNT, CBC #### [address] [place] [address] [place] Neutrophils (Bld) [#/Vol] 10.6 10*3/uL High 1.8-7.7 [facility] Comment on above: Performed By: #### H CGQNT, CBC #### [facility] [address] Neutrophils/100 WBC (Bld) 77.6 % Normal . [facility] Comment on above: Performed By: #### H CGQNT, CBC #### [facility] [address] NRBC% 0.2 /100{WBC} Normal 0-0.5 [facility] Comment on above: Performed By: #### H CGQNT, CBC #### [address] Platelet mean volume (Bld) [Entitic vol] 7.0 fL Normal 6.3-10.7 [facility] Comment on above: Performed By: #### H CGQNT, CBC #### [place] [address] [place] Platelets (Bld) [#/Vol] 369 10*3/uL Normal 150-450 [facility] Comment on above: Performed By: #### H CGQNT, CBC #### [address] RBC (Bld) [#/Vol] 4.93 10*6/uL Normal 3.60-5.[address] [facility] Comment on above: Performed By: #### H CGQNT, CBC #### [place] [address] [place] WBC (Bld) [#/Vol] 13.6 10*3/uL High 3.8-11.[address] [facility] Comment on above: Performed By: #### H CGQNT, CBC #### [address] HCG,Quantitativeon 4 HCG,Quantitative 3230.00 m[iU]/mL Normal [facility] Comment on above: Result Comment: Appr oximate Approximate hCG Gestational Age Range (mIU/ml) (weeks) 0.2-1 5-50 1-2 50-500 2-3 100-5,000 3-4 500-10,000 4-5 1,000-50,000 5-6 10,000-100,000 6-8 15,000-200,000 8-12 10,000-100,000 PERFORMED BY: [place] [address] PATHOLOGIST SEWING MACHINE OPERATOR CHUY PALOMO M.D. Performed By: #### H CGQNT, CBC #### [address] Type and Screenon 04-29-2023 ABO and Rh group Nom (Bld) Blood group A Rh(D) positive Normal [facility] Leif 04-24-2023 L Specimen: [id number] Received: 04/24/23 Status: RUBINA Sharpe Num: [id number] Spec Type: Surgical Subm Dr: Dawn Huitron MD-ADANS Tissues: A Products of Conception - Spontaneous or Missed (POC) Procedures: HE/3, Gross/Micro L4 Age/ Patient Sex Location Account Attending Physician Sarah Arce 23/F [place] [id number] MICHELE AstorgaS SPEC NUM: [id number] RECD: 04/24/23 STATUS: RUBINA SHARPE NUM: [id number] MARY: 04/24/23- SUBM DR: SHANNON AstorgaNOMS ENTERED: 04/24/[address] [facility] [address]: SPEC TYPE: Surgical DEPT: S ENTERED BY: [id number] RECV BY: [id number] ORDERED: HE/3, Gross/Micro L4 ORDERED: HE/3, Gross/Micro [...] foot length of 0.7 cm from heel-to-toe. Executive Receptionist sections are submitted in 3 cassettes as follows: A1-A2 - Villous tissue A3 - tissue CPT Codes 68713 Specimen: [id number] Received: 04/24/23 Status: RUBINA Sharpe Num: [id number] Spec Type: Surgical Subm Dr: Dawn Huitorn MD-NOMS Tissues: A Products of Conception - Spontaneous or Missed (POC) Procedures: RYAN/Jerel, Gross/Micro L4 Patient: Sarah Arce [id number] (Continued) Signed (signature on file) Tavia Abad MD 04/28/23 2321 Normal [facility] CBC AUTO DIFFon 10-02-2020 BASO # 0.0 103/ul Normal 0.0-0.1 [facility] Comment on above: Performed By: #### U MICRO, UACSIND #### [facility] [address] [place] [address] Vandana Indira Basophils/100 WBC (Bld) 0.1 % Critically low 0.2-2.0 [facility] Comment on above: Performed By: #### U MICRO, UACSIND #### [facility] [address] [place] [address] Vandanadave Jacobson EO # 0.0 103/ul Normal 0.0-0.7 [facility] Comment on above: Performed By: #### U MICRO, UACSIND #### [facility] [address] [place] [address] Vandana Jacobson Eosinophils/100 WBC (Bld) 0.0 % Critically low 0.9-7.0 [facility] Comment on above: Performed By: #### U MICRO, UACSIND #### [facility] [address] [place] [address] Vandana Jacobson Erythrocyte distribution width (RBC) [Ratio] 15.9 % Critically high 11.0-15.0 [facility] Comment on above: Performed By: #### U MICRO, UACSIND #### [facility] [address] [place] [address] Vandana Jacobson Hematocrit (Bld) [Volume fraction] 33.3 % Critically low 36.0-48.0 [facility] Comment on above: Performed By: #### U MICRO, UACSIND #### [facility] [address] [place], [place] [address] Vandanadave Jacobson Hemoglobin (Bld) [Mass/Vol] 11.2 g/dL Critically low 12.0-16.0 [facility] Comment on above: Performed By: #### U MICRO, UACSIND #### [facility] [address] [place] [address] Vandana Indira IG # 0.07 10e3/ul Critically high 0.00-0.03 [facility] Comment on above: Performed By: #### U MICRO, UACSIND #### [facility] [address] [place] [id number] Vandana Indira IG % 0.4 % Normal 0.0-0.5 [facility] Comment on above: Performed By: #### U MICRO, UACSIND #### [facility] [address] [place] [address] Vandana Indira LYMPH # 1.9 103/ul Normal 1.2-3.8 [facility] Comment on above: Performed By: #### U MICRO, UACSIND #### [facility] [address] [place] [address] Vandana Jacobson Lymphocytes/100 WBC (Bld) 11.4 % Critically low 20.5-60.0 [facility] Comment on above: Performed By: #### U MICRO, UACSIND #### [facility] [address] [place], [place] [address] Vandana Jacobson MANUAL DIFF REQ NO Normal [facility] Comment on above: Performed By: #### U MICRO, UACSIND #### [facility] [address] [place], [place] [address] Vandana Jacobson MCH (RBC) [Entitic mass] 27.7 pg Normal 26.7-34.0 [facility] Comment on above: Performed By: #### U MICRO, UACSIND #### [facility] [address] [place] [address] Vandana Jacobson MCHC (RBC) [Mass/Vol] 33.6 g/dL Normal 29.9-35.2 [facility] Comment on above: Performed By: #### U MICRO, UACSIND #### [facility] [address] [place], [place] [address] Vandana Jacobson MCV (RBC) [Entitic vol] 82.4 fL Normal 81.0-99.0 [facility] Comment on above: Performed By: #### U MICRO, UACSIND #### [facility] [address] [place] [id number] Vandana Indira MONO # 1.0 103/ul Critically high 0.3-0.[address] [facility] Comment on above: Performed By: #### U MICRO, UACSIND #### [facility] [address] [place] [id number] Vandana Indira Monocytes/100 WBC (Bld) 6.3 % Normal 1.7-12.0 [facility] Comment on above: Performed By: #### U MICRO, UACSIND #### [facility] [address] [place] [address] Vandana Indira NEUT # 13.4 103/ul Critically high 1.4-6.5 [facility] Comment on above: Performed By: #### U MICRO, UACSIND #### [facility] [address] [place] [address] Vandana Indira Neutrophils/100 WBC (Bld) 81.8 % Critically high 43.0-75.0 [facility] Comment on above: Performed By: #### U MICRO, UACSIND #### [facility] [address] [place] [id number] Vandana Lien Platelet mean volume (Bld) [Entitic vol] 10.3 fL Normal 9.5-13.5 [facility] Comment on above: Performed By: #### U MICRO, UACSIND #### [facility] [address] [place] [id number] Vandana Indira PLT 202 103/ul Normal 150-450 [facility] Comment on above: Performed By: #### U MICRO, UACSIND #### [facility] [address] [place] [address] Vandana Indira RBC 4.04 106/ul Critically low 4.20-5.[address] [facility] Comment on above: Performed By: #### U MICRO, UACSIND #### [facility] [address] [place] [id number] Vandana Indira WBC 16.4 103/ul Critically high 4.0-11.0 [facility] Comment on above: Performed By: #### U MICRO, UACSIND #### [facility] [address] [place] [address] Vandana Jacobson ASYMPTOMATIC COVID-19 ANTIGE Non 10-01-2020 EUA Statement SEE BELOW Normal [facility] Comment on above: Result Comment: This test [...] sooner. Performed By: #### C VDAGA #### [facility] [address] [place] [address] Vandana Jacobson SARS-CoV-2 (COVID-19) RNA RAMA+probe Ql (Unsp spec) Negative Normal NEGATIVE [facility] Comment on above: Result Comment: Nega tive results are presumptive. They do not preclude infection and should not be used as the sole basis for treatment decisions. Additional confirmatory testing by a molecular method should be considered. Performed By: #### C VDAGA #### [facility] [address] [place] [address] Vandana Jacobson CBC AUTO DIFFon 10-01-2020 BASO # 0.0 103/ul Normal 0.0-0.1 [facility] Comment on above: Performed By: #### D RUGRPD #### [facility] [address] [place], [place] [address] Vandana Jacobson Basophils/100 WBC (Bld) 0.1 % Critically low 0.2-2.0 [facility] Comment on above: Performed By: #### D RUGRPD #### [facility] [address] [place], [place] [address] Vandana Indira EO # 0.0 103/ul Normal 0.0-0.7 [facility] Comment on above: Performed By: #### D JESID #### [facility] [address] [place], [place] [address] Vandana Indira Eosinophils/100 WBC (Bld) 0.1 % Critically low 0.9-7.0 [facility] Comment on above: Performed By: #### D JESID #### [facility] [address] [place] [address] Vandana Indira Erythrocyte distribution width (RBC) [Ratio] 15.8 % Critically high 11.0-15.0 [facility] Comment on above: Performed By: #### D JUDI #### [facility] [address] [place] [address] Vandana Indira Hematocrit (Bld) [Volume fraction] 40.2 % Normal 36.0-48.0 [facility] Comment on above: Performed By: #### D JUDI #### [facility] [address] [place] [address] Vandana Indira Hemoglobin (Bld) [Mass/Vol] 13.4 g/dL Normal 12.0-16.0 [facility] Comment on above: Performed By: #### D JUDI #### [facility] [address] [place] [address] Vandana Indira IG # 0.04 10e3/ul Critically high 0.00-0.03 [facility] Comment on above: Performed By: #### D JUDI #### [facility] [address] [place] [address] Vandana Indira IG % 0.4 % Normal 0.0-0.5 [facility] Comment on above: Performed By: #### D JESID #### [facility] [address] [place] [address] Vandana Indira LYMPH # 1.5 103/ul Normal 1.2-3.8 [facility] Comment on above: Performed By: #### D JUDI #### [facility] [address] [place] [address] Vandana Jacobson Lymphocytes/100 WBC (Bld) 14.7 % Critically low 20.5-60.0 [facility] Comment on above: Performed By: #### D JUDI #### [facility] [address] [place], [place] [id number] Vandana Jacobson MANUAL DIFF REQ NO Normal [facility] Comment on above: Performed By: #### D JUDI #### [facility] [address] [place], [place] [address] Vandana Jacobson MCH (RBC) [Entitic mass] 27.3 pg Normal 26.7-34.0 [facility] Comment on above: Performed By: #### D JUDI #### [facility] [address] [place] [address] Vandana Jacobson MCHC (RBC) [Mass/Vol] 33.3 g/dL Normal 29.9-35.2 [facility] Comment on above: Performed By: #### D JUDI #### [facility] [address] [place] [address] Vandana Lien MCV (RBC) [Entitic vol] 82.0 fL Normal 81.0-99.0 [facility] Comment on above: Performed By: #### D JUDI #### [facility] [address] [place] [address] Vandana Jacobson MONO # 0.5 103/ul Normal 0.3-0.8 [facility] Comment on above: Performed By: #### D JUDI #### [facility] [address] [place] [address] Vandana Lien Monocytes/100 WBC (Bld) 5.2 % Normal 1.7-12.0 [facility] Comment on above: Performed By: #### D JUDI #### [facility] [address] [place], [place] [address] Vandana Indira NEUT # 8.1 103/ul Critically high 1.4-6.[address] [facility] Comment on above: Performed By: #### D JUDI #### [facility] [address] [place] [address] Vandana Jacobson Neutrophils/100 WBC (Bld) 79.5 % Critically high 43.0-75.0 [facility] Comment on above: Performed By: #### D RUGRPD #### [facility] [address] [place] [address] Vandana Jacobson Platelet mean volume (Bld) [Entitic vol] 10.6 fL Normal 9.5-13.5 [facility] Comment on above: Performed By: #### D RUGRPD #### [facility] [address] [place] [address] Vandanadave Lien PLT 256 103/ul Normal 150-450 [facility] Comment on above: Performed By: #### D RUGRPD #### [facility] [address] [place] [address] Vandana Indira RBC 4.90 106/ul Normal 4.20-5.40 [facility] Comment on above: Performed By: #### D RUGRPD #### [facility] [address] [place] [address] Vandanadave Jacobson WBC 10.2 103/ul Normal 4.0-11.0 [facility] Comment on above: Performed By: #### D RUGRPD #### [facility] [address] [place] [address] Vandana Jacobson DRUG SCREEN RAPID (URINE)on 10-01-2020 AMP Negative Normal NEGATIVE [facility] Comment on above: Performed By: #### D RUGRPD #### [facility] [address] [place] [address] Vandana Indira BAR Negative Normal NEGATIVE [facility] Comment on above: Performed By: #### D RUGRPD #### [facility] [address] [place], [place] [address] Vandana Indira BUP Negative Normal NEGATIVE [facility] Comment on above: Performed By: #### D RUGRPD #### [facility] [address] [place] [address] Vandana Indira BZO Negative Normal NEGATIVE [facility] Comment on above: Performed By: #### D RUGRPD #### [facility] [address] [place] [address] Vandana Indira ROLANDA Negative Normal NEGATIVE [facility] Comment on above: Performed By: #### D RUGRPD #### [facility] [address] [place] [address] Vandana Indira CUT-OFFS SEE BELOW Normal [facility] Comment on above: Result Comment: AMP (Amphetamine): 500ng/mL, BAR (Barbituates): 200 ng/mL, BZO (Benzodiazepines): 150 ng/mL, BUP (Buprenorphine): 10 ng/mL, ROLANDA (Cocaine): 150 ng/mL, mAMP (Methamphetamine): 500 ng/mL, MTD (Methadone): 200 ng/mL, OPI (Opiates): 100 ng/mL, OXY (Oxycodone): 100 ng/mL, PCP (Phencyclidine): 25 ng/mL, PPX (Propoxyphene): 300 ng/mL, THC (Cannabinoids): 50 ng/mL, TCA (Trycyclic Antidepressants): 300 ng/mL Performed By: #### D RUGRPD #### [facility] [address] [place] [address] Vandana Indira DRUG CUT HEADER DRUG CLASS TEST SYSTEM CUT-OFF CONCENTRATIONS ARE FOLLOWS: Normal [facility] Comment on above: Performed By: #### D RUGRPD #### [facility] [address] [place] [address] Vandana Indira mAMP Negative Normal NEGATIVE [facility] Comment on above: Performed By: #### D RUGRPD #### [facility] [address] [place] [address] Vandana Indira MTD Negative Normal NEGATIVE [facility] Comment on above: Performed By: #### D RUGRPD #### [facility] [address] [place] [address] Vandana Indira OPI Negative Normal NEGATIVE [facility] Comment on above: Performed By: #### D RUGRPD #### [facility] [address] [place] [address] Vandana Indira OXY Negative Normal NEGATIVE [facility] Comment on above: Performed By: #### D RUGRPD #### [facility] [address] [place], [place] [address] Vandana Indira PCP Negative Normal NEGATIVE [facility] Comment on above: Performed By: #### D RUGRPD #### [facility] [address] [place], [place] [address] Vandana Indira PPX Negative Normal NEGATIVE [facility] Comment on above: Performed By: #### D RUGRPD #### [facility] [address] [place] [id number] Vandana Indira TCA Negative Normal NEGATIVE [facility] Comment on above: Performed By: #### D RUGRPD #### [facility] [address] [id number] Vandana Indira THC Negative Normal NEGATIVE [facility] Comment on above: Performed By: #### D RUGRPD #### [facility] [address] [place] [address] Vandana Indira TYPE AND SCREENon 10-01-2020 TYPE AND SCREEN Negative Normal [facility] Comment on above: Performed By: #### D RUGRPD #### [facility] [address] [place] [address] Vandana Indira US PREG GROWTHon 09-12-2020 US [...] EFW: 6 lbs. 13 oz., 58% FL/AC: 0.681867 FL/BPD: 0.521576 HC/AC: 0.023091 GESTATIONAL AGE: Age by EDC: 36 weeks 6 days YUE by EDC: 10/04/2020 Age by US: 37 weeks 0 days YEU by US: 10/03/2020 IMPRESSION: Normal interval growth Electronically authenticated by: KECIA LEI Date: 2020-09-12 13:13 Normal [facility] HEMOGLOBINOPATHY FRACTIONATI ON CASCADEon 09-11-2020 HGB A 97.4 % Normal 96.4-98.8 [facility] Comment on above: Performed By: #### U MICRO, UACSIND #### [facility] [address] [id number] Vandana Indira HGB A2 2.6 % Normal 1.8-3.2 [facility] Comment on above: Performed By: #### U MICRO, UACSIND #### [facility] [address] [id number] Vandana Indira HGB F 0.0 % Normal 0.0-2.0 [facility] Comment on above: Performed By: #### U MICRO, UACSIND #### [facility] [address] [id number] Vandana Indira HGB S 0.0 % Normal 0.0 [facility] Comment on above: Performed By: #### U MICRO, UACSIND #### [facility] [address] [place], [place] [address] Vandana Indira Interpretation: Comment Normal [facility] Comment on above: Result Comment: Norm al hemoglobin present; no hemoglobin variant or thalassemia observed. Performed By: #### U MICRO, UACSIND #### [facility] [address] [id number] Vandana Indira CBC AUTO DIFFon 09-10-2020 BASO # 0.0 103/ul Normal 0.0-0.1 [facility] Comment on above: Performed By: #### C BC #### [facility] [address] [place], [place] [address] Vandana Indira Basophils/100 WBC (Bld) 0.1 % Critically low 0.2-2.0 [facility] Comment on above: Performed By: #### C BC #### [facility] [address] [id number] Vandana Indira EO # 0.0 103/ul Normal 0.0-0.7 [facility] Comment on above: Performed By: #### C BC #### [facility] [address] [place], [place] [address] Vandana Indira Eosinophils/100 WBC (Bld) 0.4 % Critically low 0.9-7.0 [facility] Comment on above: Performed By: #### C BC #### [facility] [address] [place], [place] [address] Vandana Indira Erythrocyte distribution width (RBC) [Ratio] 16.0 % Critically high 11.0-15.0 [facility] Comment on above: Performed By: #### C BC #### [facility] [address] [place], [place] [address] Vandana Indira Hematocrit (Bld) [Volume fraction] 36.5 % Normal 36.0-48.0 [facility] Comment on above: Performed By: #### C BC #### [facility] [address] [place], [place] [address] Vandana Indira Hemoglobin (Bld) [Mass/Vol] 12.2 g/dL Normal 12.0-16.0 [facility] Comment on above: Performed By: #### C BC #### [facility] [address] [place], [place] [address] Vandana Indira IG # 0.07 10e3/ul Critically high 0.00-0.03 [facility] Comment on above: Performed By: #### C BC #### [facility] [address] [place], [place] [address] Vandana Indira IG % 0.9 % Critically high 0.0-0.[address] [facility] Comment on above: Performed By: #### C BC #### [facility] [address] [place], [place] [address] Vandana Indira LYMPH # 1.9 103/ul Normal 1.2-3.8 [facility] Comment on above: Performed By: #### C BC #### [facility] [address] [place], [place] [address] Vandana Indira Lymphocytes/100 WBC (Bld) 23.7 % Normal 20.5-60.0 [facility] Comment on above: Performed By: #### C BC #### [facility] [address] [place], [place] [address] Vandana Indira MANUAL DIFF REQ NO Normal [facility] Comment on above: Performed By: #### C BC #### [facility] [address] [place], [place] [address] Vandanadave Jacobson MCH (RBC) [Entitic mass] 27.4 pg Normal 26.7-34.0 [facility] Comment on above: Performed By: #### C BC #### [facility] [address] [place] [address] Vandanadave Jacobson MCHC (RBC) [Mass/Vol] 33.4 g/dL Normal 29.9-35.2 [facility] Comment on above: Performed By: #### C BC #### [facility] [address] [place] [address] Vandanadave Lien MCV (RBC) [Entitic vol] 82.0 fL Normal 81.0-99.0 [facility] Comment on above: Performed By: #### C BC #### [facility] [address] [place] [address] Vandana Indira MONO # 0.7 103/ul Normal 0.3-0.8 [facility] Comment on above: Performed By: #### C BC #### [facility] [address] [place] [address] Vandana Indira Monocytes/100 WBC (Bld) 8.8 % Normal 1.7-12.0 [facility] Comment on above: Performed By: #### C BC #### [facility] [address] [place] [address] Vandana Indira NEUT # 5.3 103/ul Normal 1.4-6.5 [facility] Comment on above: Performed By: #### C BC #### [facility] [address] [place], [place] [address] Vandana Indira Neutrophils/100 WBC (Bld) 66.1 % Normal 43.0-75.0 [facility] Comment on above: Performed By: #### C BC #### [facility] [address] [place] [address] Vandana Jacobson Platelet mean volume (Bld) [Entitic vol] 11.6 fL Normal 9.5-13.5 [facility] Comment on above: Performed By: #### C BC #### [facility] [address] [place] [address] Vandana Jacobson PLT 221 103/ul Normal 150-450 [facility] Comment on above: Performed By: #### C BC #### [facility] [address] [place] [address] Vandana Jacobson RBC 4.45 106/ul Normal 4.20-5.40 [facility] Comment on above: Performed By: #### C BC #### [facility] [address] [place] [address] Vandana Jacobson WBC 8.1 103/ul Normal 4.0-11.0 [facility] Comment on above: Performed By: #### C BC #### [facility] [address] [place] [address] Vandana Jacobson VAGINITIS/VAGINOSIS DNA PROB Miller 09-08-2020 Antonino species Negative Normal Negative [facility] Comment on above: Performed By: #### V AGINT #### [facility] [address] [place] [address] Vandana Jacobson Gardnerella vaginalis Negative Normal Negative [facility] Comment on above: Performed By: #### V AGINT #### [facility] [address] [place] [address] Vandana Jacobson Trichomonas vaginalis Negative Normal Negative [facility] Comment on above: Performed By: #### V AGINT #### [facility] [address] [place] [address] Vandana Jacobson CHLAMYDIA/GONOCOCCUS RAMA (SW AB/URINE/PAPon 09-07-2020 Chlamydia trachomatis, RAMA Negative Normal Negative [facility] Comment on above: Performed By: #### D RUGRPD #### [facility] [address] [place] [address] Vandana Jacobson Neisseria gonorrhoeae, RAMA Negative Normal Negative [facility] Comment on above: Performed By: #### D RUGRPD #### [facility] [address] [place] [address] Vandanadave Jacobson GROUP B STREP CULTUREon S. agalactiae Ag Ql (Unsp spec) Culture Observations: NEGATIVE FOR GROUP B STREPTOCOCCUS. Normal [facility] Comment on above: Performed By: #### D RUGRPD #### [facility] [address] [place] [address] Vandana Indira CULTURE URINEon 08-31-2020 CULTURE URINE Culture Observations: LIGHT GROWTH OF MIXED GENITAL TEDDY. NO POTENTIAL PATHOGENS SEEN. Normal [facility] Comment on above: Performed By: #### D RUGRPD #### [facility] [address] [place] [address] Vandana Indira UA (CLEAN/CATCH) FREEZER OPERATOR/MICRO I F IND.on 08-31-2020 Bilirubin Ql (U) Negative Normal NEGATIVE [facility] Comment on above: Performed By: #### U MICRO, UACSIND #### [facility] [address] [place] [address] Vandana Indira Clarity (U) SL CLOUDY Abnormal CLEAR [facility] Comment on above: Performed By: #### U MICRO, UACSIND #### [facility] [address] [place] [address] Vandana Indira Color (U) LT. YELLOW Normal YELLOW [facility] Comment on above: Performed By: #### U MICRO, UACSIND #### [facility] [address] [place] [address] Vandana Indira Glucose Ql (U) Negative Normal NEGATIVE [facility] Comment on above: Performed By: #### U MICRO, UACSIND #### [facility] [address] [place] [address] Vandana Indira Hemoglobin Ql (U) Negative Normal NEGATIVE [facility] Comment on above: Performed By: #### U MICRO, UACSIND #### [facility] [address] [place] [address] Vandana Indira Ketones Ql (U) 15 mg/dl Abnormal NEGATIVE [facility] Comment on above: Performed By: #### U MICRO, UACSIND #### [facility] [address] [place] [address] Vandana Indira LEUKOCYTES SMALL Abnormal NEGATIVE [facility] Comment on above: Performed By: #### U MICRO, UACSIND #### [facility] [address] [place] [address] Vandana Indira Nitrite Ql (U) Negative Normal NEGATIVE [facility] Comment on above: Performed By: #### U MICRO, UACSIND #### [facility] [address] [place] [address] Vandana Indira pH (U) 7.0 [pH] Normal 5-9 [facility] Comment on above: Performed By: #### U MICRO, UACSIND #### [facility] [address] [place] [address] Vandana Jacobson SPEC GRAVITY 1.015 Normal 1.005-<=1.[address] [facility] Comment on above: Performed By: #### U MICRO, UACSIND #### [facility] [address] [place] [address] Vandana Indira UA PROTEIN Negative Normal NEGATIVE/ TRACE [facility] Comment on above: Performed By: #### U MICRO, UACSIND #### [facility] [address] [place] [address] Vandana Indira UR MICRO IND INDICATED Normal [facility] Comment on above: Performed By: #### U MICRO, UACSIND #### [facility] [address] [place] [address] Vandanadave Jacobson Urobilinogen Qn (U) 0.2 {Richard'U}/dL Normal 0.2 - 1. 0 [facility] Comment on above: Performed By: #### U MICRO, UACSIND #### [facility] [address] [place] [address] Vandana Indira URINE MICROSCOPIC ONLYon BACTERIA SMALL Abnormal NONE SEEN [facility] Comment on above: Performed By: #### U MICRO, UACSIND #### [facility] [address] [place] [address] Vandana Indira Bacteria identified Cx Nom (U) INDICATED Normal [facility] Comment on above: Performed By: #### U MICRO, UACSIND #### [facility] [address] [place] [address] Vandana Indira CAST NONE SEEN Normal NONE SEEN [facility] Comment on above: Performed By: #### U MICRO, UACSIND #### [facility] [address] [place] [address] Vandana Indira Crystals LM Nom (Urine sed) NONE SEEN Normal NONE SEEN [facility] Comment on above: Performed By: #### U MICRO, UACSIND #### [facility] [address] [place] [address] Vandana Indira Epithelial cells LM Ql (Urine sed) MODERATE Abnormal NONE SEEN /RARE [facility] Comment on above: Performed By: #### U MICRO, UACSIND #### [facility] [address] [place] [address] Vandana Indira MUCOUS NONE SEEN Normal NONE SEEN [facility] Comment on above: Performed By: #### U MICRO, UACSIND #### [facility] [address] [place] [address] Vandana Indira RBC NONE SEEN Abnormal 0-2 [facility] Comment on above: Performed By: #### U MICRO, UACSIND #### [facility] [address] [place] [address] Vandana Indira WBC NONE SEEN Normal NONE SEEN [facility] Comment on above: Performed By: #### U MICRO, UACSIND #### [facility] [address] [place] [address] Vandana Indira CULTURE URINEon 08-01-2020 CULTURE URINE Culture Observations: LIGHT GROWTH OF MIXED GENITAL TEDDY. NO POTENTIAL PATHOGENS SEEN. Normal [facility] Comment on above: Performed By: #### U RCX #### [facility] [address] [place] [address] Vandana Indira UA RANDOM W/MICROSCOPICon BACTERIA TRACE Abnormal NONE SEEN [facility] Comment on above: Performed By: #### U AMIC #### [facility] [address] [place], [place] [address] Vandana Indira Bilirubin Ql (U) Negative Normal NEGATIVE [facility] Comment on above: Performed By: #### U AMIC #### [facility] [address] [place] [address] Vandana Indira CAST NONE SEEN Normal NONE SEEN [facility] Comment on above: Performed By: #### U AMIC #### [facility] [address] [place] [address] Vandana Indira Clarity (U) CLEAR Normal CLEAR [facility] Comment on above: Performed By: #### U AMIC #### [facility] [address] [place] [address] Vandana Indira Color (U) LT. YELLOW Normal YELLOW [facility] Comment on above: Performed By: #### U AMIC #### [facility] [address] [place] [address] Vandana Indira Crystals LM Nom (Urine sed) NONE SEEN Normal NONE SEEN [facility] Comment on above: Performed By: #### U AMIC #### [facility] [address] [place] [address] Vandana Indira Epithelial cells LM Ql (Urine sed) FEW Abnormal NONE SEEN /RARE [facility] Comment on above: Performed By: #### U AMIC #### [facility] [address] [place] [address] Vandana Indira Glucose Ql (U) Negative Normal NEGATIVE [facility] Comment on above: Performed By: #### U AMIC #### [facility] [address] [address] Vandana Indira Hemoglobin Ql (U) Negative Normal NEGATIVE [facility] Comment on above: Performed By: #### U AMIC #### [facility] [address] [place] [address] Vandana Indira Ketones Ql (U) Negative Normal NEGATIVE [facility] Comment on above: Performed By: #### U AMIC #### [facility] [address] [place] [address] Vandana Indira LEUKOCYTES Negative Normal NEGATIVE [facility] Comment on above: Performed By: #### U AMIC #### [facility] [address] [place], [place] [address] Vandana Indira MUCOUS NONE SEEN Normal NONE SEEN [facility] Comment on above: Performed By: #### U AMIC #### [facility] [address] [place], [place] [address] Vandana Jacobson Nitrite Ql (U) Negative Normal NEGATIVE [facility] Comment on above: Performed By: #### U AMIC #### [facility] [address] [place] [address] Vandana Indira pH (U) 7.5 [pH] Normal 5-9 [facility] Comment on above: Performed By: #### U AMIC #### [facility] [address] [place] [address] Vandana Indira RBC 0-2 Normal 0-2 [facility] Comment on above: Performed By: #### U AMIC #### [facility] [address] [place] [address] Vandana Jacobson SPEC GRAVITY 1.015 Normal 1.005-<=1.025 [facility] Comment on above: Performed By: #### U AMIC #### [facility] [address] [place] [address] Vadnana Jacobson UA PROTEIN Negative Normal NEGATIVE/ TRACE [facility] Comment on above: Performed By: #### U AMIC #### [facility] [address] [place] [address] Vandanadave Jacobson Urobilinogen Qn (U) 0.2 {Richard'U}/dL Normal 0.2 - 1. 0 [facility] Comment on above: Performed By: #### U AMIC #### [facility] [address] [place], [place] [address] Vandanadave Jacobson WBC 0-2 Abnormal NONE SEEN [facility] Comment on above: Performed By: #### U AMIC #### [facility] [address] [place] [address] Vandana Indira CBC AUTO DIFFon 12-17-2019 BASO # 0.0 103/ul Normal 0.0-0.1 [facility] Comment on above: Performed By: #### C BC #### [facility] [address] [id number] Vandana Indira Basophils/100 WBC (Bld) 0.1 % Critically low 0.2-2.0 [facility] Comment on above: Performed By: #### C BC #### [facility] [address] [place], [place] [address] Vandana Indira EO # 0.1 103/ul Normal 0.0-0.7 [facility] Comment on above: Performed By: #### C BC #### [facility] [address] [place], [place] [address] Vandana Indira Eosinophils/100 WBC (Bld) 0.9 % Normal 0.9-7.0 [facility] Comment on above: Performed By: #### C BC #### [facility] [facility] [address] [place] [address] Vandana Indira Erythrocyte distribution width (RBC) [Ratio] 14.3 % Normal 11.0-15.0 [facility] Comment on above: Performed By: #### C BC #### [facility] [address] [place], [place] [address] Vandana Indira Hematocrit (Bld) [Volume fraction] 40.5 % Normal 36.0-48.0 [facility] Comment on above: Performed By: #### C BC #### [facility] [address] [place], [place] [address] Vandana Indira Hemoglobin (Bld) [Mass/Vol] 13.2 g/dL Normal 12.0-16.0 [facility] Comment on above: Performed By: #### C BC #### [facility] [address] [place] [address] Vandana Indira IG # 0.01 10e3/ul Normal 0.00-0.03 [facility] Comment on above: Performed By: #### C BC #### [facility] [address] [place], [place] [address] Vandana Indira IG % 0.1 % Normal 0.0-0.5 [facility] Comment on above: Performed By: #### C BC #### [facility] [address] [id number] Vandana Indira LYMPH # 2.0 103/ul Normal 1.2-3.8 [facility] Comment on above: Performed By: #### C BC #### [facility] [address] [id number] Vandana Indira Lymphocytes/100 WBC (Bld) 27.9 % Normal 20.5-60.0 [facility] Comment on above: Performed By: #### C BC #### [facility] [address] [place], [place] [address] Vandana Indira MANUAL DIFF REQ NO Normal [facility] Comment on above: Performed By: #### C BC #### [facility] [address] [place] [address] Vandana Indira MCH (RBC) [Entitic mass] 25.7 pg Critically low 26.7-34.0 [facility] Comment on above: Performed By: #### C BC #### [facility] [address] [place] [address] Vandana Indira MCHC (RBC) [Mass/Vol] 32.6 g/dL Normal 29.9-35.2 [facility] Comment on above: Performed By: #### C BC #### [facility] [address] [place] [address] Vandana Indira MCV (RBC) [Entitic vol] 78.9 fL Critically low 81.0-99.0 [facility] Comment on above: Performed By: #### C BC #### [facility] [address] [place] [address] Vandana Indira MONO # 0.5 103/ul Normal 0.3-0.8 [facility] Comment on above: Performed By: #### C BC #### [facility] [address] [place], [place] [address] Vandana Indira Monocytes/100 WBC (Bld) 7.0 % Normal 1.7-12.0 [facility] Comment on above: Performed By: #### C BC #### [facility] [address] [place] [address] aVndana Jacobson NEUT # 4.5 103/ul Normal 1.4-6.5 [facility] Comment on above: Performed By: #### C BC #### [facility] [address] [place], [place] [address] Vandana Jacobson Neutrophils/100 WBC (Bld) 64.0 % Normal 43.0-75.0 [facility] Comment on above: Performed By: #### C BC #### [facility] [address] [place] [address] Vandana Jacobson Platelet mean volume (Bld) [Entitic vol] 8.9 fL Critically low 9.5-13.5 [facility] Comment on above: Performed By: #### C BC #### [facility] [address] [place] [address] Vandana Jacobson PLT 345 103/ul Normal 150-450 [facility] Comment on above: Performed By: #### C BC #### [facility] [address] [place] [address] Vandana aJcobson RBC 5.13 106/ul Normal 4.20-5.40 [facility] Comment on above: Performed By: #### C BC #### [facility] [address] [place] [address] Vandana Jacobson WBC 7.1 103/ul Normal 4.0-11.0 [facility] Comment on above: Performed By: #### C BC #### [facility] [address] [place] [address] Vandana Jacobson FERRITINon 12-17-2019 Ferritin [Mass/Vol] 27.0 ng/mL Normal 6.2-137.0 [facility] Comment on above: Performed By: #### D RUGRPD #### [facility] [address] [place] [address] Vandana Jacobson IRONon 12-17-2019 Iron [Mass/Vol] 35.0 ug/dL Critically low 37.0-170.0 [facility] Comment on above: Performed By: #### D RUGRPD #### [facility] [address] [place] [address] Vandana Indira PROF 14(COMP METB)on 020 Albumin [Mass/Vol] 3.7 g/dL Normal 3.5-5.0 [facility] Comment on above: Performed By: #### C MP #### [facility] [address] [id number] Vandana Indira Albumin/Globulin [Mass ratio] 0.9 {ratio} Normal [facility] Comment on above: Performed By: #### C MP #### [facility] [address] [place] [address] Vandana Indira ALP [Catalytic activity/Vol] 82 U/L Normal 38-126 [facility] Comment on above: Performed By: #### C MP #### [facility] [address] [place] [address] Vandana Indira ALT [Catalytic activity/Vol] 21 U/L Normal 9-52 [facility] Comment on above: Performed By: #### C MP #### [facility] [address] [place] [address] Vandana Indira Anion gap [Moles/Vol] 12.5 mmol/L Normal [facility] Comment on above: Performed By: #### C MP #### [facility] [address] [place] [address] Vandana Indira AST [Catalytic activity/Vol] 15 U/L Normal 14-36 [facility] Comment on above: Performed By: #### C MP #### [facility] [address] [place] [address] Vandana Indira Bilirubin [Mass/Vol] 0.3 mg/dL Normal 0.2-1.3 [facility] Comment on above: Performed By: #### C MP #### [facility] [address] [place], [place] [address] Vandana Indira Calcium [Mass/Vol] 9.5 mg/dL Normal 8.4-10.2 [facility] Comment on above: Performed By: #### C MP #### [facility] [address] [place] [address] Vandana Indira Chloride [Moles/Vol] 104 mmol/L Normal 98-107 [facility] Comment on above: Performed By: #### C MP #### [facility] [address] [id number] Vandana Indira CO2 [Moles/Vol] 28.4 mmol/L Normal 22.0-30.0 [facility] Comment on above: Performed By: #### C MP #### [facility] [address] [id number] Vandana Indira Creatinine [Mass/Vol] 0.69 mg/dL Normal 0.52-1.04 [facility] Comment on above: Performed By: #### C MP #### [facility] [address] [id number] Vandana Indira EGFR-AF ETHIOPIAN >60 Normal >=60 [facility] Comment on above: Performed By: #### C MP #### [facility] [address] [address] Vandana Indira EGFR-NON AF ETHIOPIAN >60 Normal >=60 [facility] Comment on above: Performed By: #### C MP #### [facility] [address] [id number] Vandana Indira Globulin (S) [Mass/Vol] 4.1 g/dL Normal [facility] Comment on above: Performed By: #### C MP #### [facility] [address] [address] Vandana Indira Glucose [Mass/Vol] 94 mg/dL Normal 74-106 [facility] Comment on above: Performed By: #### C MP #### [facility] [address] [id number] Vandana Indira Potassium [Moles/Vol] 3.9 mmol/L Normal 3.4-5.0 [facility] Comment on above: Performed By: #### C MP #### [facility] [address] [id number] Vandana Indira Protein [Mass/Vol] 7.8 g/dL Normal 6.1-8.2 [facility] Comment on above: Performed By: #### C MP #### [facility] [address] [place], [place] [address] Vandanadave Jacobson Sodium [Moles/Vol] 141 mmol/L Normal 137-145 [facility] Comment on above: Performed By: #### C MP #### [facility] [address] [id number] Vandanadave Jacobson Urea nitrogen [Mass/Vol] 16.0 mg/dL Normal 7.0-17.0 [facility] Comment on above: Performed By: #### C MP #### [facility] [address] [id number] Vandanadave Jacobson Urea nitrogen/Creatinine [Mass ratio] 23.2 mg/mg Normal [facility] Comment on above: Performed By: #### C MP #### [facility] [address] [place], [place] [address] Vandana Jacobson PROTIMEon 12-17-2019 INR Coag (PPP) [Relative time] 0.97 {INR} Normal [facility] Comment on above: Performed By: #### D RUGRPD #### [facility] [address] [place], [place] [address] Vandana Indira INR GUIDELINES SEE BELOW Normal [facility] Comment on above: Result Comment: ABHIJIT RED INR: 2.0 - 3.0 CONDITIONS NOT LISTED BELOW 2.5 - 3.5 FOR PROSTHETIC HEART VALVE REPLACEMENT 2.5 - 3.5 RECURRENT THROMBOSIS Performed By: #### D RUGRPD #### [facility] [address] [place], [place] [address] Vandana Indira PT Coag (PPP) [Time] 10.3 s Normal 9.0-11.6 [facility] Comment on above: Performed By: #### D RUGRPD #### [facility] [address] [place], [place] [address] Vandana Indira PT NORMAL PLEASE NOTE: NORMAL RANGE CHANGE 11-24-2013 DUE TO REAGENT LOT CHANGE Normal [facility] Comment on above: Performed By: #### D RUGRPD #### [facility] [address] [id number] Vandana Lien PTTon 12-17-2019 aPTT Coag (Bld) [Time] 30.7 s Normal 22.3-36.2 [facility] Comment on above: Performed By: #### D RUGRPD #### [facility] [address] [place], [place] [address] Vandana Jacobson PTT NORMAL PLEASE NOTE: NORMAL RANGE CHANGE 01-31-2015 DUE TO REAGENT LOT CHANGE Normal [facility] Comment on above: Performed By: #### D RUGRPD #### [facility] [address] [place], [place] [address] Vandana Jacobson Vital Signs Date Time Vital Sign Value Performing Clinician Facility 08-11-2024 11:06-0400 Body mass index (BMI) [Ratio] 33.53 kg/m2 Newton Raul DO Work Phone: [facility] 08-11-2024 11:06-0400 Body weight 75.3 kg Newton Raul DO Work Phone: [facility] 08-11-2024 11:06-0400 Diastolic blood pressure 70 mm[Hg] Newton Raul DO Work Phone: [facility] 08-11-2024 11:06-0400 Systolic blood pressure 118 mm[Hg] Newton Raul DO Work Phone: [facility] 07-20-2024 09:34-0400 Body mass index (BMI) [Ratio] 32.52 kg/m2 Yris Jasmin [employer] Work Phone: [facility] 07-20-2024 09:34-0400 Body weight 73.03 kg Yris Jasmin [employer] Work Phone: [facility] 07-20-2024 09:34-0400 Diastolic blood pressure 72 mm[Hg] Yris Jasmin [employer] Work Phone: [facility] 07-20-2024 09:34-0400 Systolic blood pressure 118 mm[Hg] Yris Jasmin [employer] Work Phone: [facility] 06-06-2024 11:33-0400 Body mass index (BMI) [Ratio] 31.67 kg/m2 Sarah Isamar PA Work Phone: [facility] 06-06-2024 11:33-0400 Body weight 71.12 kg Sarah [place] PA Work Phone: [facility] 06-06-2024 11:33-0400 Diastolic blood pressure 70 mm[Hg] Sarah [place] PA Work Phone: [facility] 06-06-2024 11:33-0400 Systolic blood pressure 120 mm[Hg] Sarah [place] PA Work Phone: [facility] 05-09-2024 10:21-0500 Body mass index (BMI) [Ratio] 31.99 kg/m2 Newton Raul DO Work Phone: [facility] 05-09-2024 10:21-0500 Body weight 71.85 kg Newton Raul DO Work Phone: [facility] 05-09-2024 10:21-0500 Diastolic blood pressure 76 mm[Hg] Newton Raul DO Work Phone: [facility] 05-09-2024 10:21-0500 Systolic blood pressure 122 mm[Hg] Newton Raul DO Work Phone: [facility] 04-07-2024 13:43-0500 Body mass index (BMI) [Ratio] 32.52 kg/m2 Noms Nurse [facility] 04-07-2024 13:43-0500 Body weight 73.03 kg Noms Nurse [facility] 04-07-2024 13:43-0500 Diastolic blood pressure 72 mm[Hg] Nom Nurse [facility] 04-07-2024 13:43-0500 Systolic blood pressure 118 mm[Hg] [facility] Nurse [facility] 01-06-2024 10:50-0400 Body height 149.9 cm Sarah Isamar PA Work Phone: [facility] 01-06-2024 10:50-0400 Body mass index (BMI) [Ratio] 32.47 kg/m2 Sarah Isamar PA Work Phone: [facility] 01-06-2024 10:50-0400 Body weight 72.92 kg Sarah Isamar PA Work Phone: [facility] 01-06-2024 10:50-0400 Diastolic blood pressure 78 mm[Hg] Sarah NUGYEN Work Phone: [facility] 01-06-2024 10:50-0400 Systolic blood pressure 118 mm[Hg] Sarah NGUYEN Work Phone: [facility] 04-30-2023 10:23-0500 Diastolic blood pressure 84 mm[Hg] PHYSICIAN NO [facility] 04-30-2023 10:23-0500 Heart rate 67 /min PHYSICIAN NO [facility] 04-30-2023 10:23-0500 Respiratory rate 18 /min PHYSICIAN NO [facility] 04-30-2023 10:23-0500 SaO2% (BldA) [Mass fraction] 99 % PHYSICIAN NO [facility] 04-30-2023 10:23-0500 Systolic blood pressure 130 mm[Hg] PHYSICIAN NO [facility] 04-30-2023 08:53-0500 Body temperature 98.3 [degF] PHYSICIAN NO [facility] 04-30-2023 08:12-0500 Inhaled oxygen flow rate 8 L/min PHYSICIAN NO [facility] 04-30-2023 07:44-0500 Body height 152.4 cm PHYSICIAN NO [facility] 04-30-2023 07:44-0500 Body mass index (BMI) [Ratio] 28.7 kg/m2 PHYSICIAN NO [facility] 04-30-2023 07:44-0500 Body weight 66.67 kg PHYSICIAN NO [facility] 04-24-2023 11:55-0500 Diastolic blood pressure 86 mm[Hg] PHYSICIAN NO [facility] 04-24-2023 11:55-0500 Heart rate 65 /min PHYSICIAN NO [facility] 04-24-2023 11:55-0500 Respiratory rate 16 /min PHYSICIAN NO [facility] 04-24-2023 11:55-0500 SaO2% (BldA) [Mass fraction] 100 % PHYSICIAN NO [facility] 04-24-2023 11:55-0500 Systolic blood pressure 119 mm[Hg] PHYSICIAN NO [facility] 04-24-2023 11:07-0500 Body temperature 98 [degF] PHYSICIAN NO [facility] 04-24-2023 10:42-0500 Inhaled oxygen flow rate 8 L/min PHYSICIAN NO [facility] 04-24-2023 08:52-0500 Body height 152.4 cm PHYSICIAN NO [facility] 04-24-2023 08:52-0500 Body mass index (BMI) [Ratio] 29 kg/m2 PHYSICIAN NO [facility] 04-24-2023 08:52-0500 Body weight 67.58 kg PHYSICIAN NO [facility] 04-20-2023 08:56-0500 Body mass index (BMI) [Ratio] 30.09 kg/m2 Dawn Huitron MD Work Phone: [facility] 04-20-2023 08:56-0500 Body weight 67.59 kg Dawn Huitron MD Work Phone: [facility] 04-20-2023 08:56-0500 Diastolic blood pressure 66 mm[Hg] Dawn Huitron MD Work Phone: [facility] 04-20-2023 08:56-0500 Systolic blood pressure 110 mm[Hg] Dawn Huitron MD Work Phone: [facility] Healthcare Encounters Encounter Date Encounter Type Care Provider Facility Start: 08-11-2024 End: 08-11-2024 Bamboo flowsheet Newton Raul DO Work Phone: [facility] Start: 08-11-2024 End: 08-11-2024 Bamboo flowsheet Newton Raul DO Work Phone: [facility] Start: 08-11-2024 End: 08-11-2024 flow sheet Newton Raul DO Work Phone: [facility] Comment on above: Second trimester [...] 07-20-2024 End: 07-20-2024 Bamboo flowsheet Yris Castellanos [employer] Work Phone: [facility] Start: 07-20-2024 End: 07-20-2024 Bamboo flowsheet Yris Castellanos [employer] Work Phone: [facility] Start: 07-20-2024 End: 07-20-2024 flow sheet Yris Castellanos [employer] Work Phone: [facility] Comment on [...] Clinisync Result Encounter Sarah NGUYEN Work Phone: [facility] External Department Unsolicited Start: 06-06-2024 End: 06-07-2024 External Result Encounter Sarah NGUYEN Work Phone: [facility] External Department Unsolicited Start: 06-06-2024 End: 06-06-2024 Patient encounter procedure Sarah [place] PA Work Phone: [facility] Healthcare Start: 06-06-2024 End: 06-06-2024 Periodic preventive med est patient 18-39 yrs Sarah NGUYEN Work Phone: [facility] Comment on above: 16 weeks gestation o f ; Second trimester ; Screening, , for anatomic survey; Exposure to STD; Vaginal discharge; Well woman exam with routine gynecological exam Start: 06-06-2024 End: 06-06-2024 ambulatory SARAH KERN Not Available Start: 05-09-2024 End: 05-09-2024 Bamboo flowsheet Newton Raul DO Work Phone: [facility] Start: 05-09-2024 End: 05-09-2024 Bamboo flowsheet Newton Raul DO Work Phone: [facility] Start: 05-09-2024 End: 05-09-2024 Clinisync Result Encounter Newton Raul DO Work Phone: [facility] External Department Unsolicited Start: 05-09-2024 End: 05-09-2024 flow sheet Newton Raul DO Work Phone: [facility] Comment on above: First trimester preg ayanna; 12 weeks gestation of ; Insulin resistance complicating Start: 05-09-2024 End: 05-09-2024 ambulatory NEWTON RAUL Not Available Start: 04-07-2024 End: 04-07-2024 Office outpatient visit 5 minutes [facility] Raul Nurse [facility] Comment on above: GA: [...] Start: 11-13-2023 End: 11-13-2023 ambulatory PHYSICIAN NO [facility] Work Phone: Start: 11-13-2023 End: 11-13-2023 Departed Referred PHYSICIAN NO [facility] Work Phone: Start: 11-12-2023 End: 11-12-2023 Clinisync Result Encounter Newton Raul DO Work Phone: [facility] External Department Unsolicited Start: 11-12-2023 End: 11-12-2023 Clinisync Result Encounter Newton Raul DO Work Phone: [facility] External Department Unsolicited Start: 04-29-2023 End: 04-30-2023 Patient encounter procedure PHYSICIAN NO [facility] Start: 04-29-2023 End: 04-30-2023 ambulatory PHYSICIAN NO [facility] Work Phone: Start: 04-24-2023 End: 04-24-2023 Admission to same day surgery center PHYSICIAN NO [facility] Start: 04-24-2023 End: 04-24-2023 ambulatory PHYSICIAN NO [facility] Work Phone: Start: 04-20-2023 End: 04-20-2023 Office outpatient visit 10 minutes Dawn Huitron MD Work Phone: [facility] [...] on above: Result Comment: PERF ORMED BY: [facility] [address] [place] [address] PATHOLOGIST SEWING MACHINE OPERATOR CHUY PALOMO M.D. Start: 04-24-2023 Dilation and curetta ge of uterus PHYSICIAN NO FAMILY Start: 10-01-2020 Delivery of Products of Conception, External Approach TERENCE SCHMITZ Start: 10-01-2020 Repair Vulva, Pharmacy Scheduler al Approach TERENCE SCHMITZ Plan of Treatment Date Care Activity Detail Author Start: 11-07-2024 Influenza vaccination Influenz a Vaccine (Season Ended) [facility] Healthcare Start: 09-01-2024 End: 09-01-2024 Patient encounter procedure 09/01/2024 2:30 PM EDT Routine [facility] [address] [place] [id number] Sarah Kern PA [address] [place] [address] [facility] Start: 08-11-2024 End: 08-11-2025 [...] mellitus screening Expected: 08/11/2024 (Approximate), Expires: 08/11/2025 [facility] Healthcare Comment on above: Expected: 08/11/2024 (Approximate), Expires: 08/11/2025 Start: 08-11-2024 End: 08-11-2024 Patient encounter procedure [facility] Comment on above: Arrived Start: 07-20-2024 End: 10-20-2024 US Pelvis transvaginal US OB transvaginal Imaging Routine Encounter for screening for cervical length Expected: 07/20/2024, Expires: 10/20/2024 [facility] Work Phone: Comment on above: Expected: 07/20/2024 , Expires: 10/20/2024 Start: 07-20-2024 End: 07-20-2024 Patient encounter procedure 07/20/2024 9:30 AM EDT Routine [facility] [address] [place] [address] Yris Castellanos NP [address] [place] [phone] Arrived [facility] Comment on above: Arrived Start: 07-11-2024 End: 07-11-2024 Patient encounter procedure 07/11/2024 11:00 AM EDT Office Visit [facility] [address] [place] [address] Sarah Kern PA [address] [place], [place] [id number] [facility] Start: 07-04-2024 End: 07-04-2024 Patient encounter procedure 07/04/2024 11:10 AM EDT Routine [facility] [address] [place] [id number] Raul Newton, DO [address] [place] [address] [facility] Start: 07-04-2024 End: 07-04-2024 Professional / ancillary services management 07/04/2024 10:00 AM EDT Ancillary Procedure [facility] [address] [place] [phone] [facility] Start: 06-20-2024 End: 06-20-2024 Patient encounter procedure 06/20/2024 2:20 PM EDT [facility] [address] [place] [address] Alina Schmitz, MARISSA [address] [place] [address] [facility] Start: 06-06-2024 End: 06-06-2025 [...] EDT Office Visit [facility] [address] [place] [phone] Sarah Kern PA [address] [place] [address] Arrived [facility] Comment on above: Arrived Start: 11-13-2023 End: 11-13-2023 Patient encounter procedure 11/13/2023 9:30 AM EDT Procedure Visit [facility] Newton Carter DO [address] [place] [address] [facility] Start: 11-08-2023 Influenza vaccination Influenza Vacc ine (#1) [facility] Healthcare Start: 04-30-2023 [facility] Start: 04-24-2023 [facility] Start: 04-24-2023 End: 04-24-2023 [facility] Start: 04-20-2023 End: 04-20-2024 hCG, quantitative [facility] Work Phone: Comment on above: Ordered: 04/20/2023 Expected: 04/20/2023 (Approximate), Expires: 04/20/2024 Start: 04-13-2023 End: 04-13-2023 Patient encounter procedure 04/13/2023 9:45 AM EST Office Visit [facility] [address] [place] [address] Dawn Huitron MD [address] [place] [address] [facility] Start: 04-13-2023 End: 04-13-2023 Professional / ancillary services management 04/13/2023 9:30 AM EST Ancillary Procedure [facility] [address] [place] [address] [facility] Bacteria identified in Urine by Culture Urine culture Microbiology Routine Missed menses Ordered: 04/07/2024 [facility] Comment on above: Ordered: 04/07/2024 Basophils [#/volume] in Blood by Automated count [facility] Basophils/100 leukocytes in Blood by Automated [facility] CBC W Auto Different ial panel - Blood CBC and differential Lab Routine Missed menses , unspecified gestational age Ordered: 04/07/2024 [facility] Healthcare Comment on above: Ordered: 04/07/2024 CHLAMYDIA TRACHOMATI S (GENITO/STI) CHLAMYDIA TRACHOMATIS (GENITO/STI) Lab Routine Exposure to STD Ordered: 06/06/2024 [facility] Healthcare Comment on above: Ordered: 06/06/2024 Cytology Cervical or vaginal smear or scraping study Pap Smear Pathology and Cytology Routine Well woman exam with routine gynecological exam Ordered: 06/06/2024 [facility] Healthcare Comment on above: Ordered: 06/06/2024 Eosinophils/100 leukocytes in Blood by Automated count [facility] Erythrocyte distribution width [Ratio] by Automated [facility] Erythrocytes [#/volu me] in Blood [facility] Hematocrit [Volume Fraction] of Blood [facility] Hemoglobin [Mass/volume] in Blood [facility] Hemoglobin A1c/Hemoglobin.total in Blood Hemoglobin A1c Lab Routine Missed menses , unspecified gestational age Ordered: 04/07/2024 [facility] Comment on above: Ordered: 04/07/2024 Hepatitis B virus surface Ag [Presence] in Serum or Plasma by Immunoassay Hepatitis B surface antigen Lab Routine Missed menses , unspecified gestational age Ordered: 04/07/2024 [facility] Comment on above: Ordered: 04/07/2024 Hepatitis C virus Ab [Presence] in Serum or Plasma by Immunoassay Hepatitis C antibody Lab Routine Missed menses , unspecified gestational age Ordered: 04/07/2024 [facility] Comment on above: Ordered: 04/07/2024 HIV-1/HIV-2 antigen/antibody combination immunoassay HIV-1 and HIV-2 antibodies Lab Routine Missed menses , unspecified gestational age Ordered: 04/07/2024 [facility] Comment on above: Ordered: 04/07/2024 Leukocytes [#/volume ] corrected for nucleated erythrocytes in Blood by Automated [facility] Leukocytes [#/volume ] in Blood [facility] Lymphocytes [#/volum e] in Blood by Automated [facility] Lymphocytes/100 leukocytes in Blood by Automated [facility] MCH [Entitic mass] b y Automated [facility] MCHC [Mass/volume] b y Automated [facility] MCV [Entitic volume] by Automated [facility] Measurement of gluco se 1 hour after glucose challenge for glucose tolerance test GTT, 1 hour Lab Routine Insulin resistance complicating Ordered: 05/09/2024 [facility] Work Phone: Comment on above: Ordered: 05/09/2024 Monocytes [#/volume] in Blood by Automated [facility] Monocytes/100 leukocytes in Blood by Automated [facility] MYCOPLASMA/UREAPLASM A PANEL MYCOPLASMA/UREAPLASMA PANEL Lab Routine Vaginal discharge Ordered: 04/20/2023 [facility] Comment on above: Ordered: 04/20/2023 Neisseria gonorrhoea e DNA [Presence] in Unspecified specimen by RAMA with probe detection Neisseria gonorrhea DNA probe, direct Lab Routine Exposure to STD Ordered: 06/06/2024 [facility] Comment on above: Ordered: 06/06/2024 Neutrophils [#/volum e] in Blood by Automated count [facility] Neutrophils/100 leukocytes in Blood by Automated count [facility] Nucleated erythrocyt es [Presence] in Blood by Automated count [facility] Patient Education [facility] Work Phone: Patient referral [facility] Work Phone: Platelet mean volume [Entitic volume] in Blood by Automated count [facility] Platelets [#/volume] in Blood [facility] Reagin Ab [Presence] in Serum by RPR RPR Lab Routine Missed menses , unspecified gestational age Ordered: 04/07/2024 [facility] Comment on above: Ordered: 04/07/2024 Rubella antibody, IgG Rubella an tibody, IgG Lab Routine Missed menses , unspecified gestational age Ordered: 04/07/2024 [facility] Comment on above: Ordered: 04/07/2024 SURESWAB(R) ADVANCED VAGINITIS PLUS, TMA SURESWAB(R) ADVANCED VAGINITIS PLUS, TMA Pathology and Cytology Routine Vaginal discharge Ordered: 06/06/2024 [facility] Work Phone: Comment on above: Ordered: 06/06/2024 Payers Date Payer Category Payer Self-pay 2023 [facility] er [id number] 2023 Unknown BCBS BCBS xxxxxx [id number] 2023-Present [phone] [address] [place] [address] [id number] 2023 Unknown [id number] 1998 Unknown [id number] 2.16.840.1.560825.3.579.2. 593 1998 Unknown [id number] 2.16.840.1.155904.3.579.2. 593 1998 Unknown [id number] 2.16.840.1.889472.3.579.2. 593 1998 Unknown [id number] 2.16.840.1.687863.3.579.2. 593 1998 Unknown [id number] 2.16.840.1.685157.3.579.2. 593 1998 Unknown [id number] 2.16.840.1.700118.3.579.2. 593 1998 Unknown [id number] 2.16.840.1.968759.3.579.2. 593 1998 Unknown [id number] 2.16.840.1.834808.3.579.2. 593 1998 Unknown [id number] 2.16.840.1.484500.3.579.2. 593 1998 Unknown [id number] 2.16.840.1.614136.3.579.2. 1259 1998 Unknown [id number] 2.16.840.1.997621.3.579.2. 1259 1998 Unknown [id number] 2.16.840.1.203183.3.579.2. 1259 1998 Unknown [id number] 2.16.840.1.065432.3.579.2. 1259 1998 Unknown [id number] 2.16.840.1.062838.3.579.2. 1259 1998 Unknown [id number] 2.16.840.1.090501.3.579.2. 1259 1998 Unknown [id number] 2.16.840.1.875301.3.579.2. 1259 1959 Unknown [id number] 1959 Unknown [id number] Unknown [id number] 2.16.840.1.234057.3.579.2. 531 Unknown [id number] 2.16.840.1.671464.3.579.2. 531 Unknown [id number] 2.16.840.1.183846.3.579.2. 531 Social History Date Type Detail Facility Start: 08-13-2022 End: 04-30-2023 Tobacco smoking status NY[facility] Never smoked tobacco [facility] Start: 08-13-2022 [...] Start: 2000 Sex Assigned At Female F [facility] How often to you hav e a [...] Facility 04-29-2023 Functional status Patient at [facility] Work Phone: Mental Status Date Assessment Result Facility 04-29-2023 Cognitive function Cognitive Sta tus Patient at Baseline [facility] Work Phone: Clinical Notes 04-20-2023 to [...] Carter DO documented in this encounter [facility] 07-20-2024 History of Presen t illness Narrative [...] nursing note reviewed. Exam conducted with a early education teacher present. Vitals: Estimated body mass index is [...] Castellanos NP documented in this encounter [facility] 06-06-2024 History of Presen t illness Narrative [...] nursing note reviewed. Exam conducted with a early education teacher present. Vitals: Estimated body mass index is [...] PATRICK Cowart documented in this encounter [facility] 05-09-2024 History of Presen t illness Narrative [...] nursing note reviewed. Exam conducted with a early education teacher present. Vitals: Estimated body mass index is [...] or undercooked meat, and stay away from [facility]. Patient has been consulted regarding any further do's and don'ts of . Patient voiced understanding and all questions and concerns were answered. Patient is currently taking Metformin and will have an Early 1 hour Gtt drawn at 16 weeks gestation. Patient has not yet obtained intake labs and was given printouts of all labs. Patient also given [facility] order to have drawn with early 1hour gtt at 16 weeks. Orders Placed This Encounter Procedures GTT, 1 hour Alpha fetoprotein, maternal POCT urinalysis dipstick manually resulted Follow Up: Patient is to return in 4 weeks for routine OB appointment. Documented by Smita Gomez LPN on behalf of: Newton Carter DO documented in this encounter [facility] 01-30-2025 History of Presen t illness Narrative [...] or undercooked meat, and stay away from [facility]. Patient has also been advised to [...] Mayorga MA documented in this encounter [facility] 01-06-2024 History of Presen t illness Narrative [...] after having a D&C performed at [facility] with Dr. Carter. Pathology results was [...] PATRICK Cowart documented in this encounter [facility] 04-30-2023 History and physical note Note Date/Time April 29, 2023 10:09pm [facility] EN[facility] [address] [place] [address] [employer] History & Physical Signed Patient: Sarah Arce MR#: [id number] : 2000 Acct:[id number] Age/Sex: 23 / F Adm Date: 4 Loc: 3S Room: [address] [place] [address] Type: REG CLI Attending Dr: Dawn Huitron MD Copies to: NO FAMILY PHYSICIAN Dawn Huitron MD-[facility]~ Date of Service: 04/29/2023 CONTAINER FILLER - HPI History of Present Illness Chief [...] noted below or in HPI [facility] Medical History (Updated 04/29/23 @ 22:08 by [...] 1,000 mls @ 125 mls/hr IV .Q8H [facility] Stop: 04/28/24 16:59 Last Admin: 04/29/23 17:50 Dose: 125 mls/hr Cefazolin Sodium (Ancef) 2 gm in 50 mls @ 100 mls/hr IV Q8H [facility] Last Admin: 04/29/23 17:51 Dose: 100 mls/hr Oxytocin 40 unit/ Lactated (Ringer's) 504 mls @ 150 mls/hr IV .Q3H22M ONE; Protocol Stop: 04/30/23 02:21 Misoprostol (Misoprostol 200 Mcg Tablet) 800 mcg VAGINAL Q4H [facility] Stop: 04/30/23 02:31 CONTAINER FILLER - Exam Physical Exam Vital signs: Temp [...] Routine Psychiatric Exam Psychiatric: Present normal affect CONTAINER FILLER - Results Laboratory Results - Last 48 hrs. 04/29/23 20:27: Blood Type Recheck A Positive 04/29/23 17:45: HCG, Quant 3230.00 04/29/23 17:31: Corrected WBC 13.6 H, Uncorrected WBC Count 13.6 H, RBC 4.93, Hgb 13.3, Hct 39.8, MCV 80.8, MCH 27.0, MCHC 33.5, RDW 13.9, Plt Count 369, MPV 7.0, Neut % (Auto) 77.6, Lymph % (Auto) 17.0, [place] % (Auto) 4.0, Eos % (Auto) 1.1, Baso % (Auto) 0.3, Nucleat RBC Rel Count 0.2, Neut # (Auto) 10.6 H, Lymph #(Auto) 2.3, [place] # (Auto) 0.5, Eos # (Auto) 0.2, Baso # (Auto) 0.0, Blood Type APositive, Antibody Screen Negative Diagnostic Imaging Comments: 2.1 cm uterine complex with vascularization, essentially unchanged from yesterday CONTAINER FILLER - A/P (1) Vaginal bleeding: Plan Failed Cytotec evacuation of uterine tissue Suction D&C D&C Documented By: CHUCK Astorga 04/29/23 22 06 Signed By: <Electronically signed by CHUCK Huitron> 04/30/23 0702 [facility] Work Phone: 1(185) 649-476902-12-2024 History of Present illness Narrative* Dawn Huitron [...] [facility] Work Phone: Evaluation note* Diagnosis Onset Date Resolution Status Vaginal bleeding acute [facility] Work Phone: Evaluation note* Diagnosis Encounter [...] for diabetes mellitus documented in this encounter [facility] Discharge instructions Additional Instructions SPECIAL INSTRUCTIONS Call for heavy bleeding FOLLOW UP Thursday [facility] Work Phone: Summary Purpose Family [...] and content) DATE CREATED AUTHOR 10/08/2020 [facility] pital DATE CREATED AUTHOR AUTHOR'S ORGANIZ ATION 11/23/2023 [facility] DATE CREATED AUTHOR AUTHOR'S ORGANIZ ATION 08/12/2024 [facility] EPIC Reason for Visit (unrecogniz ed section and content) Reason Comments Care Reason Comments Post-op Visit Reason Comments Amenorrhea Reason Comments Routine Visit Care Teams (unrecognized sec tion and content) Template Worker Relationship Specialty Start Date End Date Unallocated, [facility] Provider [address] [place] [address] PCP - General Family Medicine 04/13/23 Team [...] November 13, 2023 End: November 13, 2023 Template Worker Relationship Specialty Start Date End Date Unallocated, Jodee Silverio MD [facility] [place] [address] PCP - General Family Medicine 04/13/23 Template Worker Relationship Specialty Start Date End Date Unallocated, Jodee Silverio MD [address] [facility] [place] [address] PCP - General Family Medicine 04/13/23 Template Worker Relationship Specialty Start Date End Date Unallocated, Jodee Silverio MD [address] [place] [address] PCP - General Family Medicine 04/13/23 Template Worker Relationship Specialty Start Date End Date Unallocated, Jodee Silverio MD [address] [place] [address] PCP - General Family Medicine 04/13/23 Template Worker Relationship Specialty Start Date End Date Unallocated, Jodee Silverio MD [address] [place] [address] PCP - General Family Medicine 04/13/23 Template Worker Relationship Specialty Start Date End Date Angel Seay MD [address] [place] [address] PCP - General Family Medicine 01/26/24 Alina Schmitz NP [address] [place] [address] Nurse Practitioner Family Medicine 01/26/24 Template Worker Relationship Specialty Start Date End Date Angel Seay MD [address] [place] [address] PCP - General Family Medicine 01/26/24 Alina Schmitz NP [address] [place] [address] Nurse Practitioner Family Medicine 01/26/24 Template Worker Relationship Specialty Start Date End Date Angel Seay MD [address] [place] [address] PCP - General Family Medicine 01/26/24 Alina Schmitz NP [address] [place] [address] Nurse Practitioner Family Medicine 01/26/24 Template Worker Relationship Specialty Start Date End Date Angel Seay MD [address] [place] [address] PCP - General Family Medicine 01/26/24 Alina Schmitz NP [address] [place] [address] Nurse Practitioner Family Medicine 01/26/24 Template Worker Relationship Specialty Start Date End Date Angel Seay MD [address] [place] [phone] PCP - General Family Medicine 01/26/24 Alina Schmitz NP [address] [place] [address] Nurse Practitioner Family Medicine 01/26/24 Template Worker Relationship Specialty Start Date End Date Angel Seay MD [address] [place] [address] PCP - General Family Medicine 01/26/24 Alina Schmitz NP [address] [place] [address] Nurse Practitioner Family Medicine 01/26/24 Template Worker Relationship Specialty Start Date End Date Angel Seay MD [address] [place] [address] PCP - General Family Medicine 01/26/24 Alina Schmitz NP [address] [place] [address] Nurse Practitioner Family Medicine 01/26/24 Template Worker Relationship Specialty Start Date End Date Angel Seay MD [address] [place] [address] PCP - General Family Medicine 01/26/24 Alina Schmitz NP [address] [place] [address] Nurse Practitioner Family Medicine 01/26/24 Template Worker Relationship Specialty Start Date End Date Angel Seay MD [address] [place] [phone] PCP - General Family Medicine 01/26/24 Alina Schmitz NP [address] [place] [address] Nurse Practitioner Family Medicine 01/26/24 Goals (unrecognized [...] BE BASED ON THE PRIMARY CLINICAL RECORDS. [employer] provides no warranty or guarantee of the accuracy or completeness of information in this document.
[2024-08-25 09:43] LABS: Glucose 1 Hour 139 mg/dL (<130)
[2024-08-25 10:13] LABS: Basophils Percent Auto 0.2 % (0.2-2.0); Eosinophils Absolute Auto 0.1 10^3/uL (0.0-0.7); Eosinophils Percent Auto 0.5 % (0.9-7.0); Hematocrit 31.8 % (36.0-48.0); Hemoglobin 10.6 g/dL (12.0-16.0); Immature Granulocytes Abs Auto 0.05 10^3/uL (0.00-0.03); Immature Granulocytes Pct Auto 0.5 % (0.0-0.5); Lymphocytes Absolute Auto 1.7 10^3/uL (1.2-3.8); Lymphocytes Percent Auto 17.6 % (20.5-60.0); Mean Corpuscular HGB Conc 33.3 g/dL (29.9-35.2); Mean Corpuscular Volume 81.1 fL (81.0-99.0); Mean Platelet Volume 9.4 fL (9.5-13.5); Monocytes Absolute Auto 0.5 10^3/uL (0.3-0.8); Monocytes Percent Auto 5.7 % (1.7-12.0); Neutrophils Absolute Auto 7.2 10^3/uL (1.4-6.5); Neutrophils Percent Auto 75.5 % (43.0-75.0); Platelet Count 308 10^3/uL (150-450); Red Blood Count 3.92 10^6/uL (4.20-5.40); Red Cell Distribution Width 13.6 % (11.0-15.0); White Blood Count 9.5 10^3/uL (4.0-11.0)
== END 2024-08-25 08:17 | disposition home or self-care (01) ==
PROVIDERS: PCP Nurse Practitioner; Visit Provider Obstetrics & Gynecology
DX: Z13.1 Encounter for screening for diabetes mellitus (principal)
CPT/HCPCS: 36415; 82950; 85025

== ENCOUNTER 2024-09-03 07:17 | Outpatient (OUT) | payer BC, SELFPAY ==
--- OUTSIDE RECORDS SUMMARY | 2024-09-03 07:20 | XMS_ITS | CCD ---
Author Organization [facility] CliniSyfl Care Team Providers Care Skip Operator Name Role Phone AICHHOLZ, BUDGET COUNSELOR ALINA Primary Care Unavailable KOFI CURRIE Consulting Unavailable KOFI CURRIE Admitting Unavailable KOFI CURRIE Attending Unavailable AICHHOLZ, BUDGET COUNSELOR ALINA Primary Care Unavailable QUIQUE, DR KECIA Devi Consulting Unavailable KOFI CURRIE Attending Unavailable KOFI CURRIE Admitting Unavailable KOFI CURRIE Consulting Unavailable KOFI CURRIE Attending Unavailable [facility] DR MADRID Referring Unavailable AICHHOLZ, BUDGET COUNSELOR ALINA Primary Care Unavailable KOFI CURRIE Consulting Unavailable KOFI CURRIE Admitting Unavailable KARASIK, DR STRONG Attending Unavailable AICHHOLZ, BUDGET COUNSELOR ALINA Primary Care Unavailable KARASIK, DR STRONG Consulting Unavailable KARASIK, DR STRONG Admitting Unavailable KARASIK, DR STRONG Procedure Practitioner Unava ilable KOFI CURRIE Consulting Unavailable KOFI CURRIE Attending Unavailable AICHHOLZ, BUDGET COUNSELOR ALINA Primary Care Unavailable KOFI CURRIE Admitting Unavailable AICHHOLZ, BUDGET COUNSELOR ALINA Primary Care Unavailable KARASIK, DR STRONG Consulting Unavailable KARASIK, DR STRONG Admitting Unavailable KARASIK, DR STRONG Attending Unavailable KOFI CURRIE Consulting Unavailable KOFI CURRIE Attending Unavailable AICHHOLZ, BUDGET COUNSELOR ALINA Primary Care Unavailable KOFI CURRIE Admitting Unavailable AICHHOLZ, BUDGET COUNSELOR ALINA Primary Care Unavailable KOFI CURRIE Consulting Unavailable KOFI CURRIE Admitting Unavailable KOFI CURRIE Attending Unavailable AICHHOLZ, BUDGET COUNSELOR ALINA Admitting Unavailable AICHHOLZ, BUDGET COUNSELOR ALINA Attending Unavailable AICHHOLZ, BUDGET COUNSELOR ALINA Consulting Unavailable AICHHOLZ, BUDGET COUNSELOR ALINA Primary Care Unavailable Unavailable Primary Care [...] Dawood MASSEY, Angel Primary Care Provider Nadir BLEMISH REMOVER, Alina Unavailable NEWTON CARTER Attending Unavailable ISAMAR, SARAH Attending Unavailable YRIS CASTELLANOS Attending Unavailable NEWTON CARTER Attending Unavailable SARAH KERN Attending Unavailable SARAH KERN Attending Unavailable Medications [...] Every 6 hours April 24, 2023 1:00am magnesium oxide 400 mg oral tablet (2 sources) Start: 09-01-2024 End: 03-30-2025 take 1 tablet by mouth once daily magnesium oxide (Mag-Ox) 400 MG tablet Indications: size inconsistent with dates ([facility]) , Nonintractable headache, unspecified chronicity pattern, unspecified headache type Take 1 tablet (400 mg) by mouth Daily 30 tablet 6 09/01/2024 03/30/2025 Active 24 hr metFORMIN hydrochloride 500 mg extended [...] supervision of normal first in first trimester ([facility]) Chew 1 tablet Daily 30 tablet 11 04/07/2024 Active Start: 04-07-2024 MV & Min w/FA-DHA ( [...] Translations: [DIZZINESS AND GIDDINESS] Onset: 09-04-2020 Episodic Headache; including migraine (2 sources) Headache; Translations: [Nonintractable headache, unspecified chronicity pattern, unspecified headache type] 09-01-2024 Episodic Hemorrhage during ; abruptio placenta; placenta [...] related conditions, unspecified trimester] 05-09-2024 Episodic Other complications of (2 sources) size does not accord with dates; Translations: [Uterine size-date discrepancy, unspecified trimester] 09-01-2024 Episodic Other female genital disorders (20 sources) [...] 10-05-2020 Chronic Other and delivery including normal (20 sources) Encounter for routine follow-up; Translations: [Single [...] [25 weeks gestation of ] 08-11-2024 Episodic Residual codes; unclassified (2 sources) Gestation period, 28 weeks; Translations: [28 weeks gestation of ] 09-01-2024 Episodic Unclassified (1 source) CONTACT W/AND (SUSP) [...] Range Facility Urinalysis macro (dipstick) panel (U)on 09-01-2024 Bilirubin, UA Negative Negative - 4(70) +++ mg/dL [facility] Blood, UA Negative Negative - 50 Sherman/mcL [facility] Clarity, UA Clear [facility] Color, UA Yellow [facility] Glucose, UA Negative Negative - 1999(110) ++++ mg/dL [facility] Interpretation and review of laboratory results Abnormal [facility] Ketones, UA Negative Negative - 160(16) ++++ mg/dL [facility] Leukocytes, UA Positive Negative - 500+++ Jackie/mcL [facility] Comment on above: small Nitrite, UA Negative Negative - Positive [facility] pH, UA 7 5 - 9 [facility] Protein, UA Negative Negative - 1999(20) ++++ mg/dL [facility] Spec Grav, UA 1.02 1 - 1.03 [facility] Urobilinogen, UA 0.2 0.2 - 12 mg/dL [facility] GLUCOSE 1 HOURon 08-25-2024 Glucose [Mass/Vol] 139 mg/dL High NINF - 13 0 mg/dL [facility] Interpretation and review of laboratory results Abnormal [facility] Urinalysis macro (dipstick) panel (U)on 08-11-2024 Bilirubin, UA Negative Negative - 4(70) +++ mg/dL [facility] Blood, UA Negative Negative - 50 Sherman/mcL [facility] Clarity, UA Clear [facility] Color, UA Yellow [facility] Glucose, UA Negative Negative - 1999(110) ++++ mg/dL [facility] Interpretation and review of laboratory results Normal [facility] Ketones, UA Negative Negative - 160(16) ++++ mg/dL [facility] Leukocytes, UA Positive Negative - 500+++ Jackie/mcL [facility] Comment on above: SMALL Nitrite, UA Negative Negative - Positive [facility] pH, UA 7 5 - 9 [facility] Protein, UA Negative Negative - 1999(20) ++++ mg/dL [facility] Spec Grav, UA 1.02 1 - 1.03 [facility] Urobilinogen, UA 0.2 0.2 - 12 mg/dL [facility] US OB CERVICAL LENGTHon 07-[address] [address] Ultrasound Report Signed Patient: SARAH ARCE MR#: [id number] : 2000 Acct:[id number] Age/Sex: 24 / F ADM Date: 08/02/24 Loc: US Attending Dr: Yris Castellanos Ordering Physician: Yris Castellanos Date of Service: 08/02/24 Procedure(s): US OB cervical length Accession Number(s): [id number] cc: Alina Schmitz NP; Yris Castellanos [address] [address] Patient Name: SARAH ARCE MRN: [id number] date: 2000 Sex: F Assigned Patient Location: US Current Patient Location: US Accession/Order Number: [id number] Exam Date: 08/02/2024 18:52 Report Date: 08/02/2024 [...] Daniels M.D. 08/02/2024 6:58 PM Dictation Location: [place] [address] Electronically authenticated by: [id number] Y Date: 08/02/2024 18:58 Dictated By: Roel Daniels M.D. Signed By: 08/02/241899 DD/ TD/TT: Dinkey Skinner: [facility] Radiology, Radiologist, MD - 08/02/2024 [place] [address] Ultrasound Report Signed Patient: SARAH ARCE MR#: [id number] : 2000 Acct:[id number] Age/Sex: 24 / F ADM Date: 08/02/24 Loc: US Attending Dr: Yris Castellanos Ordering Physician: Yris Castellanos Date of Service: 08/02/24 Procedure(s): US OB cervical length Accession Number(s): [id number] cc: Alina Schmitz BLEMISH REMOVER; Yris Castellanos The [address] [address] Patient Name: SARAH ARCE MRN: [id number] date: 2000 Sex: F Assigned Patient Location: US Current Patient Location: Accession/Order Number: [id number] Exam Date: 08/02/2024 18:52 Report Date: 08/02/2024 [...] Daniels M.D. 08/02/2024 6:58 PM Dictation Location: [place] [address] Electronically authenticated by: [id number] Y Date: 08/02/2024 18:58 Dictated By: Roel Daniels M.D. Signed By: 08/02/241899 DD/ 57 TD/TT: Dinkey Skinner: [facility] Radiology Study observation (narrative) [facility] US OB CERVICAL LENGTHOrdered By: Radiologist Radiology on 08-02-2024 [facility] Work Phone: Urinalysis macro (dipstick) panel (U)on 07-20-2024 Bilirubin, UA Negative Negative - 4(70) +++ mg/dL [facility] Blood, UA Negative Negative - 50 Sherman/mcL [facility] Clarity, UA Clear [facility] Color, UA Yellow [facility] Glucose, UA Negative Negative - 2000(110) ++++ mg/dL [facility] Interpretation and review of laboratory results Normal [facility] Ketones, UA Negative Negative - 160(16) ++++ mg/dL [facility] Leukocytes, UA Positive Negative - 500+++ Jackie/mcL [facility] Comment on above: small Nitrite, UA Negative Negative - Positive [facility] pH, UA 7 5 - 9 [facility] Protein, UA Positive Negative - 1999(20) ++++ mg/dL [facility] Comment on above: 30 Spec Grav, UA 1.025 1 - 1.03 [facility] Urobilinogen, UA 0.2 0.2 - 12 mg/dL [facility] No Panel InformationOrdered By: Radiologist Radiology on 07-06-2024 [facility] Work Phone: No Panel Informationon 07-06 Radiology Study observation (narrative) [facility] US OB ANATOMYon 07-06-[address] [address] Ultrasound Report Signed Patient: SARAH ARCE MR#: [id number] : 2000 Acct:[id number] Age/Sex: 24 / F ADM Date: 07/05/24 Loc: US Attending Dr: Sarah Kern Ordering Physician: Sarah Kern Date of Service: 07/05/24 Procedure(s): US OB anatomy Accession Number(s): [id number] cc: Alina Schmitz NP; Sarah Kern [address] [address] Patient Name: SARAH ARCE MRN: [id number] date: 2000 Sex: F Assigned Patient Location: US Current Patient Location: Accession/Order Number: [id number] Exam Date: 07/06/2024 08:58 Report Date: 07/06/2024 [...] Jr., D.O. 07/06/2024 9:06 AM Dictation Location: [place] [address] Electronically authenticated by: [id number] Y Date: 07/06/2024 09:06 Dictated By: Pedro Luis Jack M.D. Signed By: 07/06/24908 DD/ 5 TD/TT: Dinkey Skinner: [facility] Radiology, Radiologist, MD - 07/06/[address] [address] Ultrasound Report Signed Patient: SARAH ARCE MR#: [id number] : 2000 Acct:[id number] Age/Sex: 24 / F ADM Date: 07/05/24 Loc: US Attending Dr: Sarah Kern Ordering Physician: Sarah Kern Date of Service: 07/05/24 Procedure(s): US OB anatomy Accession Number(s): [id number] cc: Alina Schmitz NP; Sarah Kern The [address] [address] Patient Name: SARAH ARCE MRN: [facility]:[id number] date: 2000 Sex: F Assigned Patient Location: US Current Patient Location: Accession/Order Number: [id number] Exam Date: 07/06/2024 08:58 Report Date: 07/06/2024 [...] Jr., D.O. 07/06/2024 9:06 AM Dictation Location: [place] Electronically authenticated by: [id number] Y Date: 07/06/2024 09:06 Dictated By: Pedro Luis Jack M.D. Signed By: 07/06/24908 DD/ 5 TD/TT: Dinkey Skinner: [facility] US OB CERVICAL LENGTHon 06-09 [place] [address] Ultrasound Report Signed Patient: SARAH ARCE MR#: [id number] : 2000 Acct:[id number] Age/Sex: 24 / F ADM Date: 07/05/24 Loc: US Attending Dr: Sarah Kern Ordering Physician: Sarah Kern Date of Service: 07/05/24 Procedure(s): US OB cervical length Accession Number(s): [id number] cc: Alina Schmitz NP; Sarah Kern [address] [address] Patient Name: SARAH ARCE MRN: [facility]:[id number] date: 2000 Sex: F Assigned Patient Location: Current Patient Location: Accession/Order Number: [id number] Exam Date: 07/06/2024 08:58 Report Date: 07/06/2024 [...] Jr., D.O. 07/06/2024 9:06 AM Dictation [facility] Electronically authenticated by: [id number] Y Date: 07/06/2024 09:06 Dictated By: Pedro Luis Jack M.D. Signed By: 07/06/2409 DD/ 5 TD/TT: Dinkey Skinner: [facility] Radiology, Radiologist, MD - 07/06/2024 [place] [address] Ultrasound Report Signed Patient: SARAH ARCE MR#: [id number] : 2000 Acct:[id number] Age/Sex: 24 / F ADM Date: 07/05/24 Loc: US Attending Dr: Sarah Kern Ordering Physician: Sarah Kern Date of Service: 07/05/24 Procedure(s): US OB cervical length Accession Number(s): [id number] cc: Alina Schmitz NP; Sarah Kern [place] [id number] Patient Name: SARAH ARCE MRN: [id number] date: 2000 Sex: F Assigned Patient Location: US Current Patient Location: Accession/Order Number: [id number] Exam Date: 07/06/2024 08:58 Report Date: 07/06/2024 [...] Jr., D.O. 07/06/2024 9:06 AM Dictation Location: [place] [address] Electronically authenticated by: [id number] Y Date: 07/06/2024 09:06 Dictated By: Pedro Luis Jack M.D. Signed By: 07/06/24908 DD/ 5 TD/TT: Dinkey Skinner: JODEE Canales IGP,APTIMA HPV,AGE GDLNon AGE GDLN ACOG TESTING Note . [facility] Comment on above: TESTS RESULT FLAG UN ITS REF RANGE LAB Clinician Provided Cytology Information Source.............Cervix Other.............. No. of containers..01 ThinPrep Vial Age Kamario ACOG Shila... FLAG LEGEND: L-Low Normal,H-High Normal,LL-Alert Low,HH-Alert High <-Panic Low,>-Panic High,A-Abnormal,AA-Critical Abnormal Performed at: 01 =G [address] [address] Sarai Durant MD, IGP, RFX APTIMA HPV ASCU Note . [facility] Comment on above: TESTS RESULT FLAG UN ITS REF RANGE LAB DIAGNOSIS: 02 NEGATIVE FOR INTRAEPITHELIAL LESION OR MALIGNANCY. 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 Specimen adequacy: 02 Satisfactory for evaluation. No endocervical component is identified. An endocervical component is not commonly seen in the patient. Performed by: 03 My Kraus, Counselor Aid (ASC) QC reviewed by: 02 Debbie Pagan Counselor Aid (ASCP) . 02 Note: Note 02 The [...] Low,>-Panic High,A-Abnormal,AA-Critical Abnormal Performed at: [address] [facility] [address] [address] Sarai Durant MD, 03 [facility] [address] [address] Marito Torres PhD, Performed at: =G - [facility] [address] [id number] Chair Mechanic: Sarai Durant MD, Phone: [phone] Performed at: - [facility] [id number] Chair Mechanic: Sarai Durant MD, Phone: [phone] [facility]SE 1 HOURon 06-07-2024 Glucose [Mass/Vol] 108 mg/dL NINF - 13 0 mg/dL [facility] RECURRENT VAGINITIS (HTRX)on 06-07-2024 ATOPOBIUM VAGINAE 0 [facility] ATOPOBIUM VAGINAE Not detected [facility] BVAB 2,3 (BACTERIAL VAGINOSIS ASSOCIATED BACTERIA 2, 3); MOBILUNCUS SPP 0 [facility] BVAB 2,3 (BACTERIAL VAGINOSIS ASSOCIATED BACTERIA 2, 3); MOBILUNCUS SPP Not detected [facility] ANTONINO ALBICANS, PARAPSILOSIS, TROPICALIS 0 [facility] ANTONINO ALBICANS, PARAPSILOSIS, TROPICALIS Not detected [facility] ANTONINO GLABRATA 0 [facility] ANTONINO GLABRATA Not detected [facility] ANTONINO KRUSEI 0 [facility] ANTONINO KRUSEI Not detected [facility] CHLAMYDIA TRACHOMATIS 0 [facility] CHLAMYDIA TRACHOMATIS Not detected N [facility] GARDNERELLA VAGINALIS 0 [facility] GARDNERELLA VAGINALIS Not detected N [facility] MEGASPHAERA (TYPES 1, 2) 0 [facility] MEGASPHAERA (TYPES 1, 2) Not detected [facility] MYCOPLASMA GENITALIUM 0 [facility] MYCOPLASMA GENITALIUM Not detected N [facility] NEISSERIA GONORRHOEAE 0 [facility] NEISSERIA GONORRHOEAE Not detected N [facility] TRICHOMONAS VAGINALIS 0 [facility] TRICHOMONAS VAGINALIS Not detected N [facility] Urinalysis macro (dipstick) panel (U)on 06-06-2024 Bilirubin, UA Positive Negative - 4(70) +++ mg/dL [facility] Comment on above: small Blood, UA Negative Negative - 50 Sherman/mcL [facility] Clarity, UA Clear [facility] Color, UA Hanna [facility] Glucose, UA Negative Negative - 1999(110) ++++ mg/dL [facility] Interpretation and review of laboratory results Abnormal [facility] Ketones, UA Positive Negative - 160(16) ++++ mg/dL [facility] Comment on above: 160 Leukocytes, UA Negative Negative - 500+++ Jackie/mcL [facility] Nitrite, UA Negative Negative - Positive [facility] pH, UA 5.5 5 - 9 [facility] Protein, UA Positive Negative - 1999(20) ++++ mg/dL [facility] Comment on above: 100 Spec Grav, UA 1.03 1 - 1.03 [facility] Urobilinogen, UA 0.2 0.2 - 12 mg/dL [facility] MLR HEMOGLOBIN A1Con 025 Glucose [Mass/Vol] 105 mg/dL [facility] HbA1c (Bld) [Mass fraction] 5.3 % 4.5 - 6.2 % [facility] Comment on above: ADA RECOMMENDED LIMI T 4.0 - 6.0 ADA THERAPEUTIC TARGET < 7.0 ACTION SUGGESTED > 7.0 [facility] Urinalysis macro (dipstick) panel (U)on 05-09-2024 Bilirubin, UA Positive Negative - 4(70) +++ mg/dL [facility] Comment on above: small Blood, UA Negative Negative - 50 Sherman/mcL [facility] Clarity, UA Clear [facility] Color, UA Yellow [facility] Glucose, UA Negative Negative - 2000(110) ++++ mg/dL [facility] Interpretation and review of laboratory results Abnormal [facility] Ketones, UA Positive Negative - 160(16) ++++ mg/dL [facility] Comment on above: trace Leukocytes, UA Positive Negative - 500+++ Jackie/mcL [facility] Comment on above: small Nitrite, UA Negative Negative - Positive [facility] pH, UA 6.5 5 - 9 [facility] Protein, UA Positive Negative - 2000(20) ++++ mg/dL [facility] Comment on above: 100mg/dL Spec Grav, UA 1.025 1 - 1.03 [facility] Urobilinogen, UA 1.0 0.2 - 12 mg/dL [facility] HCG ( test) Ql (U)o n 04-07-2024 Interpretation and review of laboratory results Abnormal [facility] Preg Test, Ur Positive Negative [facility] US OB TRANSVAGINALon 025 OB TRANSVAGINAL TITLE OF [...] report is generated using voice recognition reporting ([employer]). On occasion Solsticee erroneously drops words from the report or [...] UA Negative Negative - 4(70) +++ mg/dL [facility] Blood, UA Positive Negative - 50 Sherman/mcL [facility] Comment on above: trace Clarity, UA Clear [facility] Color, UA Yellow [facility] Glucose, UA Negative Negative - 2000(110) ++++ mg/dL [facility] Interpretation and review of laboratory results Abnormal [facility] Ketones, UA Positive Negative - 160(16) ++++ mg/dL [facility] Comment on above: trace Leukocytes, UA Trace Negative - 500+++ Jackie/mcL [facility] Nitrite, UA Negative Negative - Positive [facility] pH, UA 5.5 5 - 9 [facility] Protein, UA Trace Negative - 2000(20) ++++ mg/dL [facility] Spec Grav, UA 1.03 1 - 1.03 [facility] Urobilinogen, UA 0.2 0.2 - 12 mg/dL [facility] PREG QUANT HCGon 024 HCG QUANTITATIVE 5 mIU/mL [facility] Comment on above: 5-50 0.2-1 WEEK 50-500 1-2 WEEKS 100-5,000 2-3 WEEKS 500-10,000 3-4 WEEKS 1,000-50,000 4-5 WEEKS 10,000-100,000 5-6 WEEKS 15,000-200,000 6-8 WEEKS 10,000-100,000 2-3 [facility] PREG QUANT HCGon 024 HCG QUANTITATIVE 16 mIU/mL [facility] Comment on above: 5-50 0.2-1 WEEK 50-500 1-2 WEEKS 100-5,000 2-3 WEEKS 500-10,000 3-4 WEEKS 1,000-50,000 4-5 WEEKS 10,000-100,000 5-6 WEEKS 15,000-200,000 6-8 WEEKS 10,000-100,000 2-3 [facility] PREG QUANT HCGon 024 HCG QUANTITATIVE 70 mIU/mL [facility] Comment on above: 5-50 0.2-1 WEEK 50-500 1-2 WEEKS 100-5,000 2-3 WEEKS 500-10,000 3-4 WEEKS 1,000-50,000 4-5 WEEKS 10,000-100,000 5-6 WEEKS 15,000-200,000 6-8 WEEKS 10,000-100,000 2-3 [facility] ALL CBC WITH AUTO DIFFon BASOPHILS ABSOLUTE AUTO 0.0 [facility] Basophils/100 WBC (Bld) 0.2 % 0.2 - 2.0 % [facility] Eosinophils/100 WBC (Bld) 0.7 % Low 0.9 - 7.0 % [facility] Erythrocyte distribution width (RBC) [Ratio] 13.3 % 11.0 - 15.0 % [facility] Hematocrit (Bld) [Volume fraction] 37.9 % 36.0 - 48.0 % [facility] Hemoglobin (Bld) [Mass/Vol] 13.0 g/dL 12.0 - 16.0 g/dL [facility] IMMATURE GRANULOCYTES ABS AUTO 0.03 [facility] Immature granulocytes/100 WBC (Bld) 0.3 % 0.0 - 0.5 % [facility] Interpretation and review of laboratory results Abnormal [facility] LYMPHOCYTES ABSOLUTE AUTO 1.7 [facility] Lymphocytes/100 WBC (Bld) 14.9 % Low 20.5 - 60.0 % [facility] MCH (RBC) [Entitic mass] 27.6 pg 26.7 - 34.0 pg [facility] MCHC (RBC) [Mass/Vol] 34.3 g/dL 29.9 - 35.2 g/dL [facility] MCV (RBC) [Entitic vol] 80.5 fL Low 81.0 - 99.0 fL [facility] MONOCYTES ABSOLUTE AUTO 0.6 [facility] Monocytes/100 WBC (Bld) 5.6 % 1.7 - 12.0 % [facility] NEUTROPHILS ABSOLUTE AUTO 8.7 High [facility] Neutrophils/100 WBC (Bld) 78.3 % High 43.0 - 75.0 % [facility] Platelet mean volume (Bld) [Entitic vol] 9.1 fL Low 9.5 - 13.5 fL [facility] TBH EO # 0.1 [facility] TB PLT 297 [facility] TB RBC 4.71 [facility] WBC 11.1 High [facility] Leif 11-13-2023 L Specimen: [id number] Received: 11/16/23 Status: RUBINA Sharpe Num: [id number] Spec Type: Surgical Subm Dr: Newton Carter Tissues: A Products of Conception - Spontaneous or Missed (POC MOLAR Procedures: HE/3, Gross/Micro L4 Age/ Patient Sex Location Account Attending Physician Sarah Arce 23/F BD [id number] Newton Carter SPEC NUM: [id number] RECD: 11/16/23 [facility] [id number] MARY: 11/13/[address]: Newton Carter ENTERED: 11/16/[address] [facility] DR: Myriam,Lab SPEC TYPE: Surgical DEPT: TOBY WOOD ENTERED BY: [id number] RECV BY: [id number] ORDERED: HE/3, Gross/Micro L4 ORDERED: HE/3, Gross/Micro [...] the complete mole Clinical Information Molar Specimen: [id number] Received: 11/16/23 Status: RUBINA Sharpe Num: [id number] Spec Type: Surgical Subm Dr: Newton Carter Tissues: A Products of Conception - Spontaneous or Missed (POC MOLAR Procedures: /3, Gross/Micro L4 Patient: Sarah Arce [id number] (Continued) Specimen: [id number] Received: 11/16/23 (Continued) Signed (signature on file) Antonia Camarena MD 11/21/23 1057 Specimen: [id number] Received: 11/16/23 Status: RUBINA Maynardkathrin Num: [id number] Spec Type: Surgical Subm Dr: Newton Carter Tissues: A Products of Conception - Spontaneous or Missed (POC MOLAR Procedures: /, Gross/Micro L4 Patient: Sarah Arce [id number] (Continued) Specimen: [id number] Received: 11/16/23 (Continued) Gross Description The specimen was received in formalin with the patient's name and products of conception and consists of multiple jasmine-pink hemorrhagic soft tissue fragments measuring 12.0 x 11.0 x 1.5 cm in aggregate. Multiple cystic structures are identified ranging in size from 0.1 to 0.5 cm. The cysts are filled with a clear fluid. Toddler Lead Teacher sections of the cystic structures are submitted in cassettes A1-A3 DM Microscopic Description Microscopic examinations are performed supporting the above interpretation CPT Codes 75417 Specimen: [id number] Received: 11/16/23 Status: RUBINA Sharpe Num: [id number] Spec Type: Surgical Subm Dr: Newton Carter Tissues: A Products of Conception - Spontaneous or Missed (POC MOLAR Procedures: RYAN/Michael Beltrán/Lisa L4 Patient: Sarah Arce [id number] (Continued) Signed (signature on file) Antonia Camarena MD 11/21/23 1057 Normal [facility] ALL CBC WITH AUTO DIFFon BASOPHILS ABSOLUTE AUTO 0.0 [facility] Basophils/100 WBC (Bld) 0.2 % 0.2 - 2.0 % [facility] Eosinophils/100 WBC (Bld) 1.3 % 0.9 - 7.0 % [facility] Erythrocyte distribution width (RBC) [Ratio] 13.3 % 11.0 - 15.0 % [facility] Hematocrit (Bld) [Volume fraction] 37.4 % 36.0 - 48.0 % [facility] Hemoglobin (Bld) [Mass/Vol] 12.6 g/dL 12.0 - 16.0 g/dL [facility] IMMATURE GRANULOCYTES ABS AUTO 0.02 [facility] Immature granulocytes/100 WBC (Bld) 0.2 % 0.0 - 0.5 % [facility] Interpretation and review of laboratory results Abnormal [facility] LYMPHOCYTES ABSOLUTE AUTO 1.4 [facility] Lymphocytes/100 WBC (Bld) 12.1 % Low 20.5 - 60.0 % [facility] MCH (RBC) [Entitic mass] 27.0 pg 26.7 - 34.0 pg [facility] MCHC (RBC) [Mass/Vol] 33.7 g/dL 29.9 - 35.2 g/dL [facility] MCV (RBC) [Entitic vol] 80.1 fL Low 81.0 - 99.0 fL [facility] MONOCYTES ABSOLUTE AUTO 0.7 [facility] Monocytes/100 WBC (Bld) 6.4 % 1.7 - 12.0 % [facility] NEUTROPHILS ABSOLUTE AUTO 9.2 High [facility] Neutrophils/100 WBC (Bld) 79.8 % High 43.0 - 75.0 % [facility] Platelet mean volume (Bld) [Entitic vol] 9.1 fL Low 9.5 - 13.5 fL [facility] PLT 284 [facility] RBC 4.67 [facility] WBC 11.5 High [facility] Automated basophil %Ordered By: CHUCK Huitron on 04-30-2023 Basophils/100 WBC (Bld) 0.7 % Normal . [facility] Comment on above: Performed By: #### C BC, HCGQNT #### [address] Automated basophil countOrde red By: CHUCK Huitron on 04-30-2023 Basophils (Bld) [#/Vol] 0.1 10*3/uL Normal 0.0-0.2 [facility] Comment on above: Result Comment: PERF ORMED BY: [place] [address] PATHOLOGIST BRILLIANDEER LOOPER CHUY PALOMO M.D. Performed By: #### C BC, HCGQNT #### [address] Automated blood monocyte cou ntOrdered By: CHUCK Huitron on 04-30-2023 Monocytes (Bld) [#/Vol] 0.5 10*3/uL Normal 0.0-0.8 [facility] Comment on above: Performed By: #### C BC, HCGQNT #### [address] Automated eosinophil %Ordere d By: CHUCK Huitron on 04-30-2023 Eosinophils/100 WBC (Bld) 1.3 % Normal . [facility] Comment on above: Performed By: #### C BC, HCGQNT #### [address] Automated eosinophil countOr dered By: CHUCK Huitron on 04-30-2023 Eosinophils (Bld) [#/Vol] 0.1 10*3/uL Normal 0.0-0.45 [facility] Comment on above: Performed By: #### C BC, HCGQNT #### [address] Automated monocyte %Ordered By: CHUCK Huitron on 04-30-2023 Monocytes/100 WBC (Bld) 6.3 % Normal . [facility] Comment on above: Performed By: #### C BC, HCGQNT #### [address] Automated neutrophil %Ordere d By: CHUCK Huitron on 04-30-2023 Neutrophils/100 WBC (Bld) 63.0 % Normal . [facility] Comment on above: Performed By: #### C BC, HCGQNT #### [address] Choriogonadotropin.beta subu nit [Units/volume] in Serum or PlasmaOrdered By: SHANNON Huitron on 04-30-2023 HCG.beta subunit Qn 2358.00 m[IU]/mL [facility] Comment on above: Approximate Approxim ate hCG Gestational Age Range (mIU/ml) (weeks)0.2-1 5-50 1-2 50-500 2-3 100-5,000 3-4 500-10,000 4-5 1,000-50,000 5-6 10,000-100,000 6-8 15,000-200,000 8-12 10,000-100,000 Complete Blood Count Auto Di ffon 04-30-2023 Mean Corpuscular HGB Conc 34.7 g/dL Normal 32.0-35.0 [facility] Comment on above: Performed By: #### C BC, HCGQNT #### [address] NRBC% 0.1 /100{WBC} Normal 0-0.5 [facility] Comment on above: Performed By: #### C BC, HCGQNT #### [address] Erythrocyte distribution wid th [Ratio] by Automated countOrdered By: CHUCK Huitron on 04-30-2023 Erythrocyte distribution width (RBC) [Ratio] 14.1 % Normal 11.9-15.3 [facility] Comment on above: Performed By: #### C BC, HCGQNT #### [address] Erythrocytes [#/volume] in B lood by Automated countOrdered By: CHUCK Huitron on 04-30-2023 RBC (Bld) [#/Vol] 4.40 10*6/uL Normal 3.60-5.00 [facility] Comment on above: Performed By: #### C BC, HCGQNT #### [address] HCG,Quantitativeon 02-22-202 4 HCG,Quantitative 2358.00 m[iU]/mL Normal Th e [facility] Comment on above: Result Comment: Appr oximate Approximate hCG Gestational Age Range (mIU/ml) (weeks) 0.2-1 5-50 1-2 50-500 2-3 100-5,000 3-4 500-10,000 4-5 1,000-50,000 5-6 10,000-100,000 6-8 15,000-200,000 8-12 10,000-100,000 PERFORMED BY: [place] [address] PATHOLOGIST BRILLIANDEER LOOPER CHUY PALOMO M.D. Performed By: #### C BC, HCGQNT #### [address] Hematocrit [Volume Fraction] of Blood by Automated countOrdered By: CHCUK Huitron on 04-30-2023 Hematocrit (Bld) [Volume fraction] 35.3 % Normal 34.0-46.4 [facility] Comment on above: Performed By: #### C BC, HCGQNT #### [address] Hemoglobin [Mass/volume] in BloodOrdered By: CHUCK Huitron on 04-30-2023 Hemoglobin (Bld) [Mass/Vol] 12.2 g/dL Normal 11.8-15.4 [facility] Comment on above: Performed By: #### C BC, HCGQNT #### [place] [address] [place] Leif 04-30-2023 L Specimen: [id number] Received: 04/30/23 Status: RUBINA Req Num: [id number] Spec Type: Surgical Subm Dr: CHUCK Astorga Tissues: A Products of Conception - Spontaneous or Missed (PRODUCTS OF CONCEPT Procedures: HE/3, Gross/Micro L4 Age/ Patient Sex Location Account Attending Physician Sarah Arce 23/F N3 [id number] CHUCK Astorga SPEC NUM: [id number] RECD: 04/30/23 STATUS: RUBINA MAYNARDKathrin NUM: [id number] MARY: 04/30/23- [facility] DR: Dawn Huitron MD-ADANS ENTERED: 04/30/[address] [facility] [address]: SPEC TYPE: Surgical [...] is tentatively identified. tissue is not identified. Toddler Lead Teacher sections focused on potential villi. Toddler Lead Teacher sections are submitted in three cassettes labeled A1-A3. CPT Codes 97098 Specimen: [id number] Received: 04/30/23 Status: JONYMary Sharpe Num: [id number] Spec Type: Surgical Subm Dr: CHUCK Astorga Tissues: A Products of Conception - Spontaneous or Missed (PRODUCTS OF CONCEPT Procedures: HE/3, Gross/Micro L4 Patient: Sarah Arce [id number] (Continued) Signed (signature on file) Tavia Abad MD 05/05/23 2315 Normal [facility] Leukocytes [#/volume] correc bridget for nucleated erythrocytes in Blood by Automated counOrdered By: CHUCK Huitron on 04-30-2023 WBC corrected for nucl RBC Auto (Bld) [#/Vol] 8.4 10*3/uL 3.8-11.6 [facility] Leukocytes [#/volume] in Blo od by Automated countOrdered By: CHUCK Huitron on 04-30-2023 WBC (Bld) [#/Vol] 8.4 10*3/uL Normal 3.8-11.6 [facility] Comment on above: Performed By: #### C SINDI HCGQNT #### [facility] [address] [place] [address] [place] Lymphocytes [#/volume] in Bl ood by Automated countOrdered By: CHUCK Huitron on 04-30-2023 Lymphocytes (Bld) [#/Vol] 2.4 10*3/uL Normal 1.00-4.8 [facility] Comment on above: Performed By: #### C SINDI HCGQNT #### [facility] [address] [place] [address] [place] Lymphocytes/100 leukocytes i n Blood by Automated countOrdered By: CHUCK Huitron on 04-30-2023 Lymphocytes/100 WBC (Bld) 28.7 % Normal . [facility] Comment on above: Performed By: #### C BC, HCGQNT #### [address] MCH [Entitic mass] by Automa bridget countOrdered By: CHUCK Huitron on 04-30-2023 MCH (RBC) [Entitic mass] 27.8 pg Normal 24.7-34.3 [facility] Comment on above: Performed By: #### C BC, HCGQNT #### [address] MCHC Auto (RBC) [Mass/Vol]Or dered By: CHUCK Huitron on 04-30-2023 MCHC (RBC) [Mass/Vol] 34.7 g/dL 32.0-35.0 [facility] MCV [Entitic volume] by Auto mated countOrdered By: CHUCK Huitron on 04-30-2023 MCV (RBC) [Entitic vol] 80.2 fL Normal 80-100 [facility] Comment on above: Performed By: #### C BC, HCGQNT #### [address] Neutrophils [#/volume] in Bl ood by Automated countOrdered By: CHUCK Huitron on 04-30-2023 Neutrophils (Bld) [#/Vol] 5.3 10*3/uL Normal 1.8-7.7 [facility] Comment on above: Performed By: #### C BC, HCGQNT #### [address] Nucleated erythrocytes [Pres ence] in Blood by Automated countOrdered By: CHUCK Huitron on 04-30-2023 Nucleated RBC Auto Ql (Bld) 0.1 /100{WBC} 0-0.5 [facility] Platelet mean volume [Entiti c volume] in Blood by Automated countOrdered By: SHANNON Huitron on 04-30-2023 Platelet mean volume (Bld) [Entitic vol] 6.7 fL Normal 6.3-10.7 [facility] Comment on above: Performed By: #### C BC, HCGQNT #### [facility] [address] Platelets [#/volume] in Bloo d by Automated countOrdered By: CHUCK Huitron on 04-30-2023 Platelets (Bld) [#/Vol] 317 10*3/uL Normal 150-450 [facility] Comment on above: Performed By: #### C BC, HCGQNT #### [facility] [address] [place] [address] US transvaginalon 04-30-2023 US transvaginal [facility] [place] [address] [place] [address] Ultrasound Report Signed Patient: Sarah Arce MR#: [id number] : 2000 Acct:[id number] Age/Sex: 23 / F ADM Date: 04/29/23 Loc: Room: [address] [place] [address] Type: REG CLI Attending Dr: Dawn Huitron MD Ordering Provider: CHUCK Astorga Date of Service: 04/30/23 US/US pelvic complete: D and C scheduled ([id number]) US/US transvaginal: PRODUCTS OF CONCEPTION WITH PRIOR [...] Usama Peña M.D.04/30/2023 9:37 AM Dictation Location: [place] [address] [facility]: [facility] Transcribed By: PWS 04/30/2337 Dictated By: Usama Peña DO 04/30/23 0933 Signed By: 04/30/2337 Normal [facility] ABO/Rh Retypeon 04-29-2023 ABO/RH Recheck Result Positive Normal [facility] Comment on above: Result Comment: PERF ORMED BY: [place] [address] PATHOLOGIST BRILLIANDEER LOOPER CHUY PALOMO M.D. Complete Blood Count Auto Di ffon 04-29-2023 Basophils (Bld) [#/Vol] 0.0 10*3/uL Normal 0.0-0.2 [facility] Comment on above: Result Comment: PERF ORMED BY: [place] [address] PATHOLOGIST BRILLIANDEER LOOPER CHUY PALOMO M.D. Performed By: #### H CGQNT, CBC #### [place] [address] [place] Basophils/100 WBC (Bld) 0.3 % Normal . [facility] Comment on above: Performed By: #### H CGQNT, CBC #### [place] [address] [place] Eosinophils (Bld) [#/Vol] 0.2 10*3/uL Normal 0.0-0.45 [facility] Comment on above: Performed By: #### H CGQNT, CBC #### [place] [address] [place] Eosinophils/100 WBC (Bld) 1.1 % Normal . [facility] Comment on above: Performed By: #### H CGQNT, CBC #### [place] [address] [place] Erythrocyte distribution width (RBC) [Ratio] 13.9 % Normal 11.9-15.3 [facility] Comment on above: Performed By: #### H CGQNT, CBC #### [address] Hematocrit (Bld) [Volume fraction] 39.8 % Normal 34.0-46.4 [facility] Comment on above: Performed By: #### H CGQNT, CBC #### [address] Hemoglobin (Bld) [Mass/Vol] 13.3 g/dL Normal 11.8-15.4 [facility] Comment on above: Performed By: #### H CGQNT, CBC #### [address] Lymphocytes (Bld) [#/Vol] 2.3 10*3/uL Normal 1.00-4.8 [facility] Comment on above: Performed By: #### H CGQNT, CBC #### [address] Lymphocytes/100 WBC (Bld) 17.0 % Normal . [facility] Comment on above: Performed By: #### H CGQNT, CBC #### [address] MCH (RBC) [Entitic mass] 27.0 pg Normal 24.7-34.3 [facility] Comment on above: Performed By: #### H CGQNT, CBC #### [address] MCV (RBC) [Entitic vol] 80.8 fL Normal 80-100 [facility] Comment on above: Performed By: #### H CGQNT, CBC #### [address] Mean Corpuscular HGB Conc 33.5 g/dL Normal 32.0-35.0 [facility] Comment on above: Performed By: #### H CGQNT, CBC #### [address] Monocytes (Bld) [#/Vol] 0.5 10*3/uL Normal 0.0-0.8 [facility] Comment on above: Performed By: #### H CGQNT, CBC #### [address] Monocytes/100 WBC (Bld) 4.0 % Normal . [facility] Comment on above: Performed By: #### H CGQNT, CBC #### [place] [address] [place] Neutrophils (Bld) [#/Vol] 10.6 10*3/uL High 1.8-7.7 [facility] Comment on above: Performed By: #### H CGQNT, CBC #### [place] [address] [place] Neutrophils/100 WBC (Bld) 77.6 % Normal . [facility] Comment on above: Performed By: #### H CGQNT, CBC #### [address] NRBC% 0.2 /100{WBC} Normal 0-0.5 [facility] Comment on above: Performed By: #### H CGQNT, CBC #### [address] Platelet mean volume (Bld) [Entitic vol] 7.0 fL Normal 6.3-10.7 [facility] Comment on above: Performed By: #### H CGQNT, CBC #### [place] [address] [place] Platelets (Bld) [#/Vol] 369 10*3/uL Normal 150-450 [facility] Comment on above: Performed By: #### H CGQNT, CBC #### [place] [address] [place] RBC (Bld) [#/Vol] 4.93 10*6/uL Normal 3.60-5.00 [facility] Comment on above: Performed By: #### H CGQNT, CBC #### [place] [address] [place] WBC (Bld) [#/Vol] 13.6 10*3/uL High 3.8-11.6 [facility] Comment on above: Performed By: #### H CGQNT, CBC #### [address] [address] [place] HCG,Quantitativeon HCG,Quantitative 3230.00 m[iU]/mL Normal Th e [facility] Comment on above: Result Comment: Appr oximate Approximate hCG Gestational Age Range (mIU/ml) (weeks) 0.2-1 5-50 1-2 50-500 2-3 100-5,000 3-4 500-10,000 4-5 1,000-50,000 5-6 10,000-100,000 6-8 15,000-200,000 8-12 10,000-100,000 PERFORMED BY: [place] [address] PATHOLOGIST BRILLIANDEER LOOPER CHUY PALOMO M.D. Performed By: #### H CGQNT, CBC #### [address] Type and Screenon 04-29-2023 ABO and Rh group Nom (Bld) Blood group A Rh(D) positive Normal [facility] Leif 04-24-2023 L Specimen: [id number] Received: 04/24/23 Status: SOUMary Rekathrin Num: [id number] Spec Type: Surgical Subm Dr: CHUCK Astorga Tissues: A Products of Conception - Spontaneous or Missed (POC) Procedures: HE/3, Gross/Micro L4 Age/ Patient Sex Location Account Attending Physician Sarah Arce 23/F [place] [id number] CHUCK Astorga SPEC NUM: [id number] RECD: 04/24/23 STATUS: SOUT REQ NUM: [id number] MARY: 04/24/23- SUBM DR: CHUCK Astorga ENTERED: 04/24/[address] [facility] [address]: SPEC TYPE: Surgical DEPT: S ENTERED BY: [id number] RECV BY: [id number] ORDERED: HE/3, Gross/Micro L4 ORDERED: HE/3, Gross/Micro [...] foot length of 0.7 cm from heel-to-toe. Toddler Lead Teacher sections are submitted in 3 cassettes as follows: A1-A2 - Villous tissue A3 - tissue CPT Codes 34411 Specimen: [id number] Received: 04/24/23 Status: RUBINA Sharpe Num: [id number] Spec Type: Surgical Subm Dr: Dawn Huitron MD-NOMS Tissues: A Products of Conception - Spontaneous or Missed (POC) Procedures: HE/Jerel, Gross/Micro L4 Patient: Sarah Arce [id number] (Continued) Signed (signature on file) Tavia Abad MD 04/28/23 2321 Normal [facility] CBC AUTO DIFFon 10-02-2020 BASO # 0.0 103/ul Normal 0.0-0.1 [facility] Comment on above: Performed By: #### U MICRO, UACSIND #### [facility] [address] [place] [address] Vandana Indira Basophils/100 WBC (Bld) 0.1 % Critically low 0.2-2.0 [facility] Comment on above: Performed By: #### U MICRO, UACSIND #### [facility] [address] [place] [address] Vandana Indira EO # 0.0 103/ul Normal 0.0-0.7 [facility] Comment on above: Performed By: #### U MICRO, UACSIND #### [facility] [address] [address] Vandana Indira Eosinophils/100 WBC (Bld) 0.0 % Critically low 0.9-7.0 [facility] Comment on above: Performed By: #### U MICRO, UACSIND #### [facility] [address] [place], [place] [address] Vandana Indira Erythrocyte distribution width (RBC) [Ratio] 15.9 % Critically high 11.0-15.0 [facility] Comment on above: Performed By: #### U MICRO, UACSIND #### [facility] [address] [place] [address] Vandana Indira Hematocrit (Bld) [Volume fraction] 33.3 % Critically low 36.0-48.0 [facility] Comment on above: Performed By: #### U MICRO, UACSIND #### [facility] [address] [place] [address] Vandana Indira Hemoglobin (Bld) [Mass/Vol] 11.2 g/dL Critically low 12.0-16.0 [facility] Comment on above: Performed By: #### U MICRO, UACSIND #### [facility] [address] [place] [address] Vandanadave Jacobson IG # 0.07 10e3/ul Critically high 0.00-0.03 [facility] Comment on above: Performed By: #### U MICRO, UACSIND #### [facility] [address] [place] [address] Vandana Indira IG % 0.4 % Normal 0.0-0.5 [facility] Comment on above: Performed By: #### U MICRO, UACSIND #### [facility] [address] [place] [address] Vandana Indira LYMPH # 1.9 103/ul Normal 1.2-3.8 [facility] Comment on above: Performed By: #### U MICRO, UACSIND #### [facility] [address] [place] [address] Vandana Jacobson Lymphocytes/100 WBC (Bld) 11.4 % Critically low 20.5-60.0 [facility] Comment on above: Performed By: #### U MICRO, UACSIND #### [facility] [address] [place] [address] Vandana Jacobson MANUAL DIFF REQ NO Normal [facility] Comment on above: Performed By: #### U MICRO, UACSIND #### [facility] [address] [place] [address] Vandana Jacobson MCH (RBC) [Entitic mass] 27.7 pg Normal 26.7-34.0 [facility] Comment on above: Performed By: #### U MICRO, UACSIND #### [facility] [address] [address] Vandana Jacobson MCHC (RBC) [Mass/Vol] 33.6 g/dL Normal 29.9-35.2 [facility] Comment on above: Performed By: #### U MICRO, UACSIND #### [facility] [address] [place] [address] Vandanadave Lien MCV (RBC) [Entitic vol] 82.4 fL Normal 81.0-99.0 [facility] Comment on above: Performed By: #### U MICRO, UACSIND #### [facility] [address] [place] [address] Vandana Jacobson MONO # 1.0 103/ul Critically high 0.3-0.8 [facility] Comment on above: Performed By: #### U MICRO, UACSIND #### [facility] [address] [place] [address] Vandana Indira Monocytes/100 WBC (Bld) 6.3 % Normal 1.7-12.0 [facility] Comment on above: Performed By: #### U MICRO, UACSIND #### [facility] [address] [place] [address] Vandana Indira NEUT # 13.4 103/ul Critically high 1.4-6.5 [facility] Comment on above: Performed By: #### U MICRO, UACSIND #### [facility] [address] [place] [address] Vandana Jacobson Neutrophils/100 WBC (Bld) 81.8 % Critically high 43.0-75.0 [facility] Comment on above: Performed By: #### U MICRO, UACSIND #### [facility] [address] [place] [address] Vandana Jacobson Platelet mean volume (Bld) [Entitic vol] 10.3 fL Normal 9.5-13.5 [facility] Comment on above: Performed By: #### U MICRO, UACSIND #### [facility] [address] [place] [address] Vandana Indira PLT 202 103/ul Normal 150-450 [facility] Comment on above: Performed By: #### U MICRO, UACSIND #### [facility] [address] [place] [address] Vandana Indira RBC 4.04 106/ul Critically low 4.20-5.40 [facility] Comment on above: Performed By: #### U MICRO, UACSIND #### [facility] [address] [place] [address] Vandana Jacobson WBC 16.4 103/ul Critically high 4.0-11.0 [facility] Comment on above: Performed By: #### U MICRO, UACSIND #### [facility] [address] [place] [address] Vandana Jacobson ASYMPTOMATIC COVID-19 ANTIGE Non 10-01-2020 EUA Statement SEE BELOW Normal [facility] Comment on above: Result Comment: [...] sooner. Performed By: #### C VDAGA #### [facility] [address] [place], [place] [address] Vandana Jacobson SARS-CoV-2 (COVID-19) RNA RAMA+probe Ql (Unsp spec) Negative Normal NEGATIVE [facility] Comment on above: Result Comment: Nega tive results are presumptive. They do not preclude infection and should not be used as the sole basis for treatment decisions. Additional confirmatory testing by a molecular method should be considered. Performed By: #### C VDAGA #### [facility] [address] [id number] Vandana Jacobson CBC AUTO DIFFon 10-01-2020 BASO # 0.0 103/ul Normal 0.0-0.1 [facility] Comment on above: Performed By: #### D RUGRPD #### [facility] [address] [id number] Vandana Jacobson Basophils/100 WBC (Bld) 0.1 % Critically low 0.2-2.0 [facility] Comment on above: Performed By: #### D RUGRPD #### [facility] [address] [place], [place] [address] Vandana Indira EO # 0.0 103/ul Normal 0.0-0.7 [facility] Comment on above: Performed By: #### D RUGRPD #### [facility] [address] [place], [place] [address] Vandana Indira Eosinophils/100 WBC (Bld) 0.1 % Critically low 0.9-7.0 [facility] Comment on above: Performed By: #### D RUGRPD #### [facility] [address] [place], [place] [address] Vandana Indira Erythrocyte distribution width (RBC) [Ratio] 15.8 % Critically high 11.0-15.0 [facility] Comment on above: Performed By: #### D RUGRPD #### [facility] [address] [place] [address] Vandana Indira Hematocrit (Bld) [Volume fraction] 40.2 % Normal 36.0-48.0 [facility] Comment on above: Performed By: #### D RUGRPD #### [facility] [address] [place], [place] [address] Vandana Indira Hemoglobin (Bld) [Mass/Vol] 13.4 g/dL Normal 12.0-16.0 [facility] Comment on above: Performed By: #### D RUGRPD #### [facility] [address] [place] [address] Vandana Indira IG # 0.04 10e3/ul Critically high 0.00-0.03 [facility] Comment on above: Performed By: #### D RUGRPD #### [facility] [address] [place], [place] [address] Vandana Indira IG % 0.4 % Normal 0.0-0.5 [facility] Comment on above: Performed By: #### D RUGRPD #### [facility] [address] [place], [place] [address] Vandana Indira LYMPH # 1.5 103/ul Normal 1.2-3.8 [facility] Comment on above: Performed By: #### D RUGRPD #### [facility] [address] [place], [place] [address] Vandana Jacobson Lymphocytes/100 WBC (Bld) 14.7 % Critically low 20.5-60.0 [facility] Comment on above: Performed By: #### D RUGRPD #### [facility] [address] [place], [place] [address] Vandana Jacobson MANUAL DIFF REQ NO Normal [facility] Comment on above: Performed By: #### D RUGRPD #### [facility] [address] [place], [place] [address] Vandanadave Jacobson MCH (RBC) [Entitic mass] 27.3 pg Normal 26.7-34.0 [facility] Comment on above: Performed By: #### D RUGRPD #### [facility] [address] [place], [place] [address] Vandanadave Jacobson MCHC (RBC) [Mass/Vol] 33.3 g/dL Normal 29.9-35.2 [facility] Comment on above: Performed By: #### D RUGRPD #### [facility] [address] [place], [place] [address] Vandana Jacobson MCV (RBC) [Entitic vol] 82.0 fL Normal 81.0-99.0 [facility] Comment on above: Performed By: #### D RUGRPD #### [facility] [address] [place], [place] [address] Vandana Jacobson MONO # 0.5 103/ul Normal 0.3-0.8 [facility] Comment on above: Performed By: #### D RUGRPD #### [facility] [address] [place], [place] [address] Vandana Jacobson Monocytes/100 WBC (Bld) 5.2 % Normal 1.7-12.0 [facility] Comment on above: Performed By: #### D RUGRPD #### [facility] [address] [place], [place] [address] Vandana Indira NEUT # 8.1 103/ul Critically high 1.4-6.5 [facility] Comment on above: Performed By: #### D RUGRPD #### [facility] [address] [address] Vandana Jacobson Neutrophils/100 WBC (Bld) 79.5 % Critically high 43.0-75.0 [facility] Comment on above: Performed By: #### D RUGRPD #### [facility] [address] [id number] Vandanadave Jacobson Platelet mean volume (Bld) [Entitic vol] 10.6 fL Normal 9.5-13.5 [facility] Comment on above: Performed By: #### D RUGRPD #### [facility] [address] [place] [address] Vandanadave Lien PLT 256 103/ul Normal 150-450 [facility] Comment on above: Performed By: #### D RUGRPD #### [facility] [address] [place] [address] Vandana Indira RBC 4.90 106/ul Normal 4.20-5.40 [facility] Comment on above: Performed By: #### D RUGRPD #### [facility] [address] [place] [address] Vandanadave Lien WBC 10.2 103/ul Normal 4.0-11.0 [facility] Comment on above: Performed By: #### D RUGRPD #### [facility] [address] [place], [place] [address] Vandanadave Jacobson DRUG SCREEN RAPID (URINE)on 10-01-2020 AMP Negative Normal NEGATIVE [facility] Comment on above: Performed By: #### D RUGRPD #### [facility] [address] [place] [address] Avndana Indira BAR Negative Normal NEGATIVE [facility] Comment on above: Performed By: #### D RUGRPD #### [facility] [address] [place] [address] Vandana Indira BUP Negative Normal NEGATIVE [facility] Comment on above: Performed By: #### D RUGRPD #### [facility] [address] [place] [address] Vandana Indira BZO Negative Normal NEGATIVE [facility] Comment on above: Performed By: #### D RUGRPD #### [facility] [address] [place] [address] Vandana Indira ROLANDA Negative Normal NEGATIVE [facility] Comment on above: Performed By: #### D RUGRPD #### [facility] [address] [place] [address] Vandana Indira CUT-OFFS SEE BELOW Normal [facility] Comment on above: Result Comment: AMP [...] ng/mL Performed By: #### D RUGRPD #### [facility] [address] [place] [address] DRUG CUT HEADER DRUG CLASS TEST SYSTEM CUT-OFF CONCENTRATIONS ARE FOLLOWS: Normal [facility] Comment on above: Performed By: #### D RUGRPD #### [facility] [address] [place] [address] Vandana Indira mAMP Negative Normal NEGATIVE [facility] Comment on above: Performed By: #### D RUGRPD #### [facility] [address] [place] [address] Vandana Indira MTD Negative Normal NEGATIVE [facility] Comment on above: Performed By: #### D RUGRPD #### [facility] [address] [place] [address] Vadnana Indira OPI Negative Normal NEGATIVE [facility] Comment on above: Performed By: #### D RUGRPD #### [facility] [address] [address] Vandana Indira OXY Negative Normal NEGATIVE [facility] Comment on above: Performed By: #### D RUGRPD #### [facility] [address] [address] Vandana Indira PCP Negative Normal NEGATIVE [facility] Comment on above: Performed By: #### D RUGRPD #### [facility] [address] [address] Vandana Indira PPX Negative Normal NEGATIVE [facility] Comment on above: Performed By: #### D RUGRPD #### [facility] [address] [place] [address] Vandana Indira TCA Negative Normal NEGATIVE [facility] Comment on above: Performed By: #### D RUGRPD #### [facility] [address] [place] [address] Vandana Indira THC Negative Normal NEGATIVE [facility] Comment on above: Performed By: #### D RUGRPD #### [facility] [address] [place] [address] Vandana Indira TYPE AND SCREENon 10-01-2020 TYPE AND SCREEN Negative Normal [facility] Comment on above: Performed By: #### D RUGRPD #### [facility] [address] [place], [place] [address] Vandana Indira US PREG GROWTHon 09-12-2020 US [...] EFW: 6 lbs. 13 oz., 58% FL/AC: [id number] FL/BPD: 0.429969 HC/AC: 0.917929 GESTATIONAL AGE: Age by EDC: 36 weeks 6 days YUE by EDC: 10/04/2020 Age by US: 37 weeks 0 days YUE by US: 10/03/2020 IMPRESSION: Normal interval growth Electronically authenticated by: KECIA LEI Date: 2020-09-12 13:13 Normal [facility] HEMOGLOBINOPATHY FRACTIONATI ON CASCADEon 09-11-2020 HGB A 97.4 % Normal 96.4-98.8 [facility] Comment on above: Performed By: #### U MICRO, UACSIND #### [facility] [address] [address] Vandana Indira HGB A2 2.6 % Normal 1.8-3.2 [facility] Comment on above: Performed By: #### U MICRO, UACSIND #### [facility] [address] [address] Vandana Indira HGB F 0.0 % Normal 0.0-2.0 [facility] Comment on above: Performed By: #### U MICRO, UACSIND #### [facility] [address] [address] Vandana Indira HGB S 0.0 % Normal 0.0 [facility] Comment on above: Performed By: #### U MICRO, UACSIND #### [facility] [address] [id number] Vandana Indira Interpretation: Comment Normal [facility] Comment on above: Result Comment: Norm al hemoglobin present; no hemoglobin variant or thalassemia observed. Performed By: #### U MICRO, UACSIND #### [facility] [address] [id number] Vandana Indira CBC AUTO DIFFon 09-10-2020 BASO # 0.0 103/ul Normal 0.0-0.1 [facility] Comment on above: Performed By: #### C BC #### [facility] [address] [id number] Vandana Indira Basophils/100 WBC (Bld) 0.1 % Critically low 0.2-2.0 [facility] Comment on above: Performed By: #### C BC #### [facility] [address] [address] Vandana Indira EO # 0.0 103/ul Normal 0.0-0.7 [facility] Comment on above: Performed By: #### C BC #### [facility] [address] [id number] Vandana Indira Eosinophils/100 WBC (Bld) 0.4 % Critically low 0.9-7.0 [facility] Comment on above: Performed By: #### C BC #### [facility] [address] [place], [place] [address] Vandana Indira Erythrocyte distribution width (RBC) [Ratio] 16.0 % Critically high 11.0-15.0 [facility] Comment on above: Performed By: #### C BC #### [facility] [address] [place] [address] Vandana Indira Hematocrit (Bld) [Volume fraction] 36.5 % Normal 36.0-48.0 [facility] Comment on above: Performed By: #### C BC #### [facility] [address] [place], [place] [address] Vandana Indira Hemoglobin (Bld) [Mass/Vol] 12.2 g/dL Normal 12.0-16.0 [facility] Comment on above: Performed By: #### C BC #### [facility] [address] [place], [place] [address] Vandana Indira IG # 0.07 10e3/ul Critically high 0.00-0.03 [facility] Comment on above: Performed By: #### C BC #### [facility] [address] [place] [address] Vandana Indira IG % 0.9 % Critically high 0.0-0.5 [facility] Comment on above: Performed By: #### C BC #### [facility] [address] [place], [place] [address] Vandana Indira LYMPH # 1.9 103/ul Normal 1.2-3.8 [facility] Comment on above: Performed By: #### C BC #### [facility] [address] [place], [place] [address] Vandana Indira Lymphocytes/100 WBC (Bld) 23.7 % Normal 20.5-60.0 [facility] Comment on above: Performed By: #### C BC #### [facility] [address] [place], [place] [address] Vandana Jacobson MANUAL DIFF REQ NO Normal [facility] Comment on above: Performed By: #### C BC #### [facility] [address] [place], [place] [address] Vandanadave Jacobson MCH (RBC) [Entitic mass] 27.4 pg Normal 26.7-34.0 [facility] Comment on above: Performed By: #### C BC #### [facility] [address] [place] [address] Vandanaadve Jacobson MCHC (RBC) [Mass/Vol] 33.4 g/dL Normal 29.9-35.2 [facility] Comment on above: Performed By: #### C BC #### [facility] [address] [place] [address] Vandanadave Jacobson MCV (RBC) [Entitic vol] 82.0 fL Normal 81.0-99.0 [facility] Comment on above: Performed By: #### C BC #### [facility] [address] [place], [place] [address] Vandanadave Jacobson MONO # 0.7 103/ul Normal 0.3-0.8 [facility] Comment on above: Performed By: #### C BC #### [facility] [address] [place] [address] Vandanadave Jacobson Monocytes/100 WBC (Bld) 8.8 % Normal 1.7-12.0 [facility] Comment on above: Performed By: #### C BC #### [facility] [address] [place], [place] [address] Vandana Indira NEUT # 5.3 103/ul Normal 1.4-6.5 [facility] Comment on above: Performed By: #### C BC #### [facility] [address] [place], [place] [address] Vandana Indira Neutrophils/100 WBC (Bld) 66.1 % Normal 43.0-75.0 [facility] Comment on above: Performed By: #### C BC #### [facility] [address] [place] [address] Vandana Jacobson Platelet mean volume (Bld) [Entitic vol] 11.6 fL Normal 9.5-13.5 [facility] Comment on above: Performed By: #### C BC #### [facility] [address] [place] [address] Vandana Lien PLT 221 103/ul Normal 150-450 [facility] Comment on above: Performed By: #### C BC #### [facility] [address] [place] [address] Vandanadave Lien RBC 4.45 106/ul Normal 4.20-5.40 [facility] Comment on above: Performed By: #### C BC #### [facility] [address] [place] [address] Vandana Jacobson WBC 8.1 103/ul Normal 4.0-11.0 [facility] Comment on above: Performed By: #### C BC #### [facility] [address] [place] [address] Vandana Jacobson VAGINITIS/VAGINOSIS DNA PROB Miller 09-08-2020 Antonino species Negative Normal Negative [facility] Comment on above: Performed By: #### V AGINT #### [facility] [address] [place] [address] Vandana Jacobson Gardnerella vaginalis Negative Normal Negative [facility] Comment on above: Performed By: #### V AGINT #### [facility] [address] [place] [address] Vandana Jacobson Trichomonas vaginalis Negative Normal Negative [facility] Comment on above: Performed By: #### V AGINT #### [facility] [address] [place] [address] Vandana Jacobson CHLAMYDIA/GONOCOCCUS RAMA (SW AB/URINE/PAPon 09-07-2020 Chlamydia trachomatis, RAMA Negative Normal Negative [facility] Comment on above: Performed By: #### D RUGRPD #### [facility] [address] [place] [address] Vandana Indira Neisseria gonorrhoeae, RAMA Negative Normal Negative [facility] Comment on above: Performed By: #### D RUGRPD #### [facility] [address] [place] [address] Vandana Jacobson GROUP B STREP CULTUREon 07-0 S. agalactiae Ag Ql (Unsp spec) Culture Observations: NEGATIVE FOR GROUP B STREPTOCOCCUS. Normal [facility] Comment on above: Performed By: #### D RUGRPD #### [facility] [address] [place] [address] Vandana Indira CULTURE URINEon 08-31-2020 CULTURE URINE Culture Observations: LIGHT GROWTH OF MIXED GENITAL TEDDY. NO POTENTIAL PATHOGENS SEEN. Normal [facility] Comment on above: Performed By: #### D RUGRPD #### [facility] [address] [place] [address] Vandana Indira UA (CLEAN/CATCH) MASTER MACHINIST/MICRO I F IND.on 08-31-2020 Bilirubin Ql (U) Negative Normal NEGATIVE [facility] Comment on above: Performed By: #### U MICRO, UACSIND #### [facility] [address] [place] [address] Vandana Indira Clarity (U) SL CLOUDY Abnormal CLEAR [facility] Comment on above: Performed By: #### U MICRO, UACSIND #### [facility] [address] [place] [address] Vandana Indira Color (U) LT. YELLOW Normal YELLOW [facility] Comment on above: Performed By: #### U MICRO, UACSIND #### [facility] [address] [place] [address] Vandana Indira Glucose Ql (U) Negative Normal NEGATIVE [facility] Comment on above: Performed By: #### U MICRO, UACSIND #### [facility] [address] [place] [address] Vandana Indira Hemoglobin Ql (U) Negative Normal NEGATIVE [facility] Comment on above: Performed By: #### U MICRO, UACSIND #### [facility] [address] [place] [address] Vandana Indira Ketones Ql (U) 15 mg/dl Abnormal NEGATIVE [facility] Comment on above: Performed By: #### U MICRO, UACSIND #### [facility] [address] [place] [address] Vandana Indira LEUKOCYTES SMALL Abnormal NEGATIVE [facility] Comment on above: Performed By: #### U MICRO, UACSIND #### [facility] [address] [place] [address] Vandana Indira Nitrite Ql (U) Negative Normal NEGATIVE [facility] Comment on above: Performed By: #### U MICRO, UACSIND #### [facility] [address] [place] [address] Vandana Indira pH (U) 7.0 [pH] Normal 5-9 [facility] Comment on above: Performed By: #### U MICRO, UACSIND #### [facility] [address] [place] [address] Vandana Indira SPEC GRAVITY 1.015 Normal 1.005-<=1.025 [facility] Comment on above: Performed By: #### U MICRO, UACSIND #### [facility] [address] [place] [address] Vandana Indira UA PROTEIN Negative Normal NEGATIVE/ TRACE [facility] Comment on above: Performed By: #### U MICRO, UACSIND #### [facility] [address] [place] [address] Vandana Indira UR MICRO IND INDICATED Normal [facility] Comment on above: Performed By: #### U MICRO, UACSIND #### [facility] [address] [place] [address] Vandana Indira Urobilinogen Qn (U) 0.2 {Richard'U}/dL Normal 0.2 - 1. 0 [facility] Comment on above: Performed By: #### U MICRO, UACSIND #### [facility] [address] [place] [address] Vandana Indira URINE MICROSCOPIC ONLYon BACTERIA SMALL Abnormal NONE SEEN [facility] Comment on above: Performed By: #### U MICRO, UACSIND #### [facility] [address] [address] Vandana Indira Bacteria identified Cx Nom (U) INDICATED Normal [facility] Comment on above: Performed By: #### U MICRO, UACSIND #### [facility] [address] [address] Vandana Indira CAST NONE SEEN Normal NONE SEEN [facility] Comment on above: Performed By: #### U MICRO, UACSIND #### [facility] [address] [address] Vandana Indira Crystals LM Nom (Urine sed) NONE SEEN Normal NONE SEEN [facility] Comment on above: Performed By: #### U MICRO, UACSIND #### [facility] [address] [place] [address] Vandana Indira Epithelial cells LM Ql (Urine sed) MODERATE Abnormal NONE SEEN /RARE [facility] Comment on above: Performed By: #### U MICRO, UACSIND #### [facility] [address] [place] [address] Vandana Indira MUCOUS NONE SEEN Normal NONE SEEN [facility] Comment on above: Performed By: #### U MICRO, UACSIND #### [facility] [address] [place] [address] Vandana Indira RBC NONE SEEN Abnormal 0-2 [facility] Comment on above: Performed By: #### U MICRO, UACSIND #### [facility] [address] [place] [address] Vandana Indira WBC NONE SEEN Normal NONE SEEN [facility] Comment on above: Performed By: #### U MICRO, UACSIND #### [facility] [address] [place] [address] Vandana Indira CULTURE URINEon 08-01-2020 CULTURE URINE Culture Observations: LIGHT GROWTH OF MIXED GENITAL TEDDY. NO POTENTIAL PATHOGENS SEEN. Normal [facility] Comment on above: Performed By: #### U RCX #### [facility] [address] [place] [address] Vandana Indira UA RANDOM W/MICROSCOPICon BACTERIA TRACE Abnormal NONE SEEN [facility] Comment on above: Performed By: #### U AMIC #### [facility] [address] [place] [address] Vandana Indira Bilirubin Ql (U) Negative Normal NEGATIVE [facility] Comment on above: Performed By: #### U AMIC #### [facility] [address] [place] [address] Vandana Indira CAST NONE SEEN Normal NONE SEEN [facility] Comment on above: Performed By: #### U AMIC #### [facility] [address] [place] [address] Vandana Indira Clarity (U) CLEAR Normal CLEAR [facility] Comment on above: Performed By: #### U AMIC #### [facility] [address] [place] [address] Vandana Indira Color (U) LT. YELLOW Normal YELLOW [facility] Comment on above: Performed By: #### U AMIC #### [facility] [address] [place] [address] Vandana Indira Crystals LM Nom (Urine sed) NONE SEEN Normal NONE SEEN [facility] Comment on above: Performed By: #### U AMIC #### [facility] [address] [place] [address] Vandana Indira Epithelial cells LM Ql (Urine sed) FEW Abnormal NONE SEEN /RARE [facility] Comment on above: Performed By: #### U AMIC #### [facility] [address] [place] [address] Vandana Indira Glucose Ql (U) Negative Normal NEGATIVE [facility] Comment on above: Performed By: #### U AMIC #### [facility] [address] [place] [address] Vandana Indira Hemoglobin Ql (U) Negative Normal NEGATIVE [facility] Comment on above: Performed By: #### U AMIC #### [facility] [address] [place] [address] Vandana Indira Ketones Ql (U) Negative Normal NEGATIVE [facility] Comment on above: Performed By: #### U AMIC #### [facility] [address] [place], [place] [address] Vandana Indira LEUKOCYTES Negative Normal NEGATIVE [facility] Comment on above: Performed By: #### U AMIC #### [facility] [address] [place], [place] [address] Vandana Indira MUCOUS NONE SEEN Normal NONE SEEN [facility] Comment on above: Performed By: #### U AMIC #### [facility] [address] [place], [place] [address] Vandana Indira Nitrite Ql (U) Negative Normal NEGATIVE [facility] Comment on above: Performed By: #### U AMIC #### [facility] [address] [place], [place] [address] Vandana Indira pH (U) 7.5 [pH] Normal 5-9 [facility] Comment on above: Performed By: #### U AMIC #### [facility] [address] [place] [address] Vandana Indira RBC 0-2 Normal 0-2 [facility] Comment on above: Performed By: #### U AMIC #### [facility] [address] [place] [address] Vandana Indira SPEC GRAVITY 1.015 Normal 1.005-<=1.025 [facility] Comment on above: Performed By: #### U AMIC #### [facility] [address] [place] [address] Vandana Indira UA PROTEIN Negative Normal NEGATIVE/ TRACE [facility] Comment on above: Performed By: #### U AMIC #### [facility] [address] [place] [address] Vandana Indira Urobilinogen Qn (U) 0.2 {Richard'U}/dL Normal 0.2 - 1. 0 [facility] Comment on above: Performed By: #### U AMIC #### [facility] [address] [place] [address] Vandana Indira WBC 0-2 Abnormal NONE SEEN [facility] Comment on above: Performed By: #### U AMIC #### [facility] [address] [place] [address] Vandana Indira CBC AUTO DIFFon 12-17-2019 BASO # 0.0 103/ul Normal 0.0-0.1 [facility] Comment on above: Performed By: #### C BC #### [facility] [address] [place], [place] [id number] Vandana Indira Basophils/100 WBC (Bld) 0.1 % Critically low 0.2-2.0 [facility] Comment on above: Performed By: #### C BC #### [facility] [address] [place] [address] Vandana Indira EO # 0.1 103/ul Normal 0.0-0.7 [facility] Comment on above: Performed By: #### C BC #### [facility] [address] [place] [address] Vandana Indira Eosinophils/100 WBC (Bld) 0.9 % Normal 0.9-7.0 [facility] Comment on above: Performed By: #### C BC #### [facility] [address] [place] [address] Vandana Jacobson Erythrocyte distribution width (RBC) [Ratio] 14.3 % Normal 11.0-15.0 [facility] Comment on above: Performed By: #### C BC #### [facility] [address] [place] [address] Vandana Indira Hematocrit (Bld) [Volume fraction] 40.5 % Normal 36.0-48.0 [facility] Comment on above: Performed By: #### C BC #### [facility] [address] [place] [address] Vandana Indira Hemoglobin (Bld) [Mass/Vol] 13.2 g/dL Normal 12.0-16.0 [facility] Comment on above: Performed By: #### C BC #### [facility] [address] [place] [address] Vandana Indira IG # 0.01 10e3/ul Normal 0.00-0.03 [facility] Comment on above: Performed By: #### C BC #### [facility] [address] [place] [address] Vandana Indira IG % 0.1 % Normal 0.0-0.5 [facility] Comment on above: Performed By: #### C BC #### [facility] [address] [place] [address] Vandanadave Jacobson LYMPH # 2.0 103/ul Normal 1.2-3.8 [facility] Comment on above: Performed By: #### C BC #### [facility] [address] [place] [address] Vandana Indira Lymphocytes/100 WBC (Bld) 27.9 % Normal 20.5-60.0 [facility] Comment on above: Performed By: #### C BC #### [facility] [address] [place] [address] Vandanadave Jacobson MANUAL DIFF REQ NO Normal [facility] Comment on above: Performed By: #### C BC #### [facility] [address] [place] [address] Vandanadave Lien MCH (RBC) [Entitic mass] 25.7 pg Critically low 26.7-34.0 [facility] Comment on above: Performed By: #### C BC #### [facility] [address] [place] [address] Vandanadave Jacobson MCHC (RBC) [Mass/Vol] 32.6 g/dL Normal 29.9-35.2 [facility] Comment on above: Performed By: #### C BC #### [facility] [address] [place] [address] Vandanadave Jacobson MCV (RBC) [Entitic vol] 78.9 fL Critically low 81.0-99.0 [facility] Comment on above: Performed By: #### C BC #### [facility] [address] [place] [address] Vandana Indira MONO # 0.5 103/ul Normal 0.3-0.8 [facility] Comment on above: Performed By: #### C BC #### [facility] [address] [place] [address] Vandana Indira Monocytes/100 WBC (Bld) 7.0 % Normal 1.7-12.0 [facility] Comment on above: Performed By: #### C BC #### [facility] [address] [place], [place] [id number] Vandana Jacobson NEUT # 4.5 103/ul Normal 1.4-6.5 [facility] Comment on above: Performed By: #### C BC #### [facility] [address] [place], [place] [address] Vandana Jacobson Neutrophils/100 WBC (Bld) 64.0 % Normal 43.0-75.0 [facility] Comment on above: Performed By: #### C BC #### [facility] [address] [place], [place] [address] Vandana Jacobson Platelet mean volume (Bld) [Entitic vol] 8.9 fL Critically low 9.5-13.5 [facility] Comment on above: Performed By: #### C BC #### [facility] [address] [place] [address] Vandanadave Lien PLT 345 103/ul Normal 150-450 [facility] Comment on above: Performed By: #### C BC #### [facility] [address] [place], [place] [address] Vandanadave Jacobson RBC 5.13 106/ul Normal 4.20-5.40 [facility] Comment on above: Performed By: #### C BC #### [facility] [address] [place] [address] Vandana Lien WBC 7.1 103/ul Normal 4.0-11.0 [facility] Comment on above: Performed By: #### C BC #### [facility] [address] [place] [address] Vandana Jacobson FERRITINon 12-17-2019 Ferritin [Mass/Vol] 27.0 ng/mL Normal 6.2-137.0 [facility] Comment on above: Performed By: #### D RUGRPD #### [facility] [address] [place] [address] Vandana Jacobson IRONon 12-17-2019 Iron [Mass/Vol] 35.0 ug/dL Critically low 37.0-170.0 [facility] Comment on above: Performed By: #### D RUGRPD #### [facility] [address] [place] [address] Vandanadave Lien PROF 14(COMP METB)on 020 Albumin [Mass/Vol] 3.7 g/dL Normal 3.5-5.0 [facility] Comment on above: Performed By: #### C MP #### [facility] [address] [place], [place] [address] Vandana Indira Albumin/Globulin [Mass ratio] 0.9 {ratio} Normal [facility] Comment on above: Performed By: #### C MP #### [facility] [address] [place], [place] [address] Vandana Indira ALP [Catalytic activity/Vol] 82 U/L Normal 38-126 [facility] Comment on above: Performed By: #### C MP #### [facility] [address] [place], [place] [address] Vandana Indira ALT [Catalytic activity/Vol] 21 U/L Normal 9-52 [facility] Comment on above: Performed By: #### C MP #### [facility] [address] [place], [place] [address] Vandana Indira Anion gap [Moles/Vol] 12.5 mmol/L Normal [facility] Comment on above: Performed By: #### C MP #### [facility] [address] [place], [place] [address] Vandana Indira AST [Catalytic activity/Vol] 15 U/L Normal 14-36 [facility] Comment on above: Performed By: #### C MP #### [facility] [address] [place], [place] [address] Vandana Indira Bilirubin [Mass/Vol] 0.3 mg/dL Normal 0.2-1.3 [facility] Comment on above: Performed By: #### C MP #### [facility] [address] [place] [address] Vandana Indira Calcium [Mass/Vol] 9.5 mg/dL Normal 8.4-10.2 [facility] Comment on above: Performed By: #### C MP #### [facility] [address] [id number] Vandana Indira Chloride [Moles/Vol] 104 mmol/L Normal 98-107 [facility] Comment on above: Performed By: #### C MP #### [facility] [address] [id number] Vandana Indira CO2 [Moles/Vol] 28.4 mmol/L Normal 22.0-30.0 [facility] Comment on above: Performed By: #### C MP #### [facility] [address] [place] [address] Vandana Indira Creatinine [Mass/Vol] 0.69 mg/dL Normal 0.52-1.04 [facility] Comment on above: Performed By: #### C MP #### [facility] [address] [place] [address] Vandana Indira EGFR-AF TRISTANIAN >60 Normal >=60 [facility] Comment on above: Performed By: #### C MP #### [facility] [address] [place] [address] Vandana Indira EGFR-NON AF TRISTANIAN >60 Normal >=60 [facility] Comment on above: Performed By: #### C MP #### [facility] [address] [place], [place] [address] Vandana Indira Globulin (S) [Mass/Vol] 4.1 g/dL Normal [facility] Comment on above: Performed By: #### C MP #### [facility] [address] [place] [address] Vandana Indira Glucose [Mass/Vol] 94 mg/dL Normal 74-106 [facility] Comment on above: Performed By: #### C MP #### [facility] [address] [place] [address] Vandana Indira Potassium [Moles/Vol] 3.9 mmol/L Normal 3.4-5.0 [facility] Comment on above: Performed By: #### C MP #### [facility] [address] [place] [address] Vandana Indira Protein [Mass/Vol] 7.8 g/dL Normal 6.1-8.2 [facility] Comment on above: Performed By: #### C MP #### [facility] [address] [place] [address] Vandanadave Jacobson Sodium [Moles/Vol] 141 mmol/L Normal 137-145 [facility] Comment on above: Performed By: #### C MP #### [facility] [address] [place] [address] Vandana Indira Urea nitrogen [Mass/Vol] 16.0 mg/dL Normal 7.0-17.0 [facility] Comment on above: Performed By: #### C MP #### [facility] [address] [place] [address] Vandanadave Jacobson Urea nitrogen/Creatinine [Mass ratio] 23.2 mg/mg Normal [facility] Comment on above: Performed By: #### C MP #### [facility] [address] [place] [address] Vandanadave Jacobson PROTIMEon 12-17-2019 INR Coag (PPP) [Relative time] 0.97 {INR} Normal [facility] Comment on above: Performed By: #### D RUGRPD #### [facility] [address] [place], [place] [address] Vandana Indira INR GUIDELINES SEE BELOW Normal [facility] Comment on above: Result Comment: ABHIJIT RED INR: 2.0 - 3.0 CONDITIONS NOT LISTED BELOW 2.5 - 3.5 FOR PROSTHETIC HEART VALVE REPLACEMENT 2.5 - 3.5 RECURRENT THROMBOSIS Performed By: #### D RUGRPD #### [facility] [address] [place] [address] Vandana Indira PT Coag (PPP) [Time] 10.3 s Normal 9.0-11.6 [facility] Comment on above: Performed By: #### D RUGRPD #### [facility] [address] [place] [address] Vandana Indira PT NORMAL PLEASE NOTE: NORMAL RANGE CHANGE 11-24-2013 DUE TO REAGENT LOT CHANGE Normal [facility] Comment on above: Performed By: #### D RUGRPD #### [facility] [address], [place] [address] Vandana Jacobson PTTon 12-17-2019 aPTT Coag (Bld) [Time] 30.7 s Normal 22.3-36.2 Th e [facility] Comment on above: Performed By: #### D RUGRPD #### [facility] [address], [place] [address] Vandana Jacobson PTT NORMAL PLEASE NOTE: NORMAL RANGE CHANGE 01-31-2015 DUE TO REAGENT LOT CHANGE Normal [facility] Comment on above: Performed By: #### D RUGRPD #### [facility] [address], [place] [address] Vandana Jacobson Vital Signs Date Time Vital Sign Value Performing Clinician Facility 09-01-2024 14:27-0400 Body mass index (BMI) [Ratio] 33.98 kg/m2 Sarah NGUYEN Work Phone: [facility] 09-01-2024 14:27-0400 Body weight 76.32 kg Sarah Kern PA Work Phone: [facility] 09-01-2024 14:27-0400 Diastolic blood pressure 70 mm[Hg] Sarah Kern PA Work Phone: [facility] 09-01-2024 14:27-0400 Systolic blood pressure 108 mm[Hg] Sarah Kern PA Work Phone: [facility] 08-11-2024 11:06-0400 Body mass index (BMI) [Ratio] 33.53 kg/m2 Newton Raul DO Work Phone: [facility] 08-11-2024 11:06-0400 Body weight 75.3 kg Newton Ralu DO Work Phone: [facility] 08-11-2024 11:06-0400 Diastolic blood pressure 70 mm[Hg] Newton Raul DO Work Phone: [facility] 08-11-2024 11:06-0400 Systolic blood pressure 118 mm[Hg] Newton Raul DO Work Phone: [facility] 07-20-2024 09:34-0400 Body mass index (BMI) [Ratio] 32.52 kg/m2 Yris Castellanos [employer] Work Phone: [facility] 07-20-2024 09:34-0400 Body weight 73.03 kg Yris Castellanos [employer] Work Phone: [facility] 07-20-2024 09:34-0400 Diastolic blood pressure 72 mm[Hg] Yris Ally [employer] Work Phone: [facility] 07-20-2024 09:34-0400 Systolic blood pressure 118 mm[Hg] Yris Castellanos [employer] Work Phone: [facility] 06-06-2024 11:33-0400 Body mass index (BMI) [Ratio] 31.67 kg/m2 Sarah Kern PA Work Phone: [facility] 06-06-2024 11:33-0400 Body weight 71.12 kg Sarah Isamar PA Work Phone: [facility] 06-06-2024 11:33-0400 Diastolic blood pressure 70 mm[Hg] Sarah Isamar PA Work Phone: [facility] 06-06-2024 11:33-0400 Systolic blood pressure 120 mm[Hg] Sarah Isamar PA Work Phone: [facility] 05-09-2024 10:21-0500 Body mass index (BMI) [Ratio] 31.99 kg/m2 Newton Raul DO Work Phone: [facility] 05-09-2024 10:21-0500 Body weight 71.85 kg Newton Raul DO Work Phone: [facility] 05-09-2024 10:21-0500 Diastolic blood pressure 76 mm[Hg] Newton Raul DO Work Phone: [facility] 05-09-2024 10:21-0500 Systolic blood pressure 122 mm[Hg] Newton Raul DO Work Phone: [facility] 04-07-2024 13:43-0500 Body mass index (BMI) [Ratio] 32.52 kg/m2 [facility] Nurse [facility] 04-07-2024 13:43-0500 Body weight 73.03 kg [facility] Nurse [facility] 04-07-2024 13:43-0500 Diastolic blood pressure 72 mm[Hg] [facility] Nurse [facility] 04-07-2024 13:43-0500 Systolic blood pressure 118 mm[Hg] [facility] Nurse [facility] 01-06-2024 10:50-0400 Body height 149.9 cm Sarah Kern PA Work Phone: [facility] 01-06-2024 10:50-0400 Body mass index (BMI) [Ratio] 32.47 kg/m2 Sarah Kern PA Work Phone: [facility] 01-06-2024 10:50-0400 Body weight 72.92 kg Sarah Kern PA Work Phone: [facility] 01-06-2024 10:50-0400 Diastolic blood pressure 78 mm[Hg] Sarah Kern PA Work Phone: [facility] 01-06-2024 10:50-0400 Systolic blood pressure 118 mm[Hg] Sarah Kern PA Work Phone: [facility] 04-30-2023 10:23-0500 Diastolic blood pressure 84 mm[Hg] PHYSICIAN NO [facility] 04-30-2023 10:23-0500 Heart rate 67 /min PHYSICIAN NO [facility] 04-30-2023 10:23-0500 Respiratory rate 18 /min PHYSICIAN NO [facility] 04-30-2023 10:23-0500 SaO2% (BldA) [Mass fraction] 99 % PHYSICIAN NO [facility] 04-30-2023 10:23-0500 Systolic blood pressure 130 mm[Hg] PHYSICIAN NO [facility] 04-30-2023 08:53-0500 Body temperature 98.3 [degF] PHYSICIAN NO [facility] 04-30-2023 08:12-0500 Inhaled oxygen flow rate 8 L/min PHYSICIAN NO [facility] 04-30-2023 07:44-0500 Body height 152.4 cm PHYSICIAN NO [facility] 04-30-2023 07:44-0500 Body mass index (BMI) [Ratio] 28.7 kg/m2 PHYSICIAN NO [facility] 04-30-2023 07:44-0500 Body weight 66.67 kg PHYSICIAN NO [facility] 04-24-2023 11:55-0500 Diastolic blood pressure 86 mm[Hg] PHYSICIAN NO [facility] 04-24-2023 11:55-0500 Heart rate 65 /min PHYSICIAN NO [facility] 04-24-2023 11:55-0500 Respiratory rate 16 /min PHYSICIAN NO [facility] 04-24-2023 11:55-0500 SaO2% (BldA) [Mass fraction] 100 % PHYSICIAN NO [facility] 04-24-2023 11:55-0500 Systolic blood pressure 119 mm[Hg] PHYSICIAN NO [facility] 04-24-2023 11:07-0500 Body temperature 98 [degF] PHYSICIAN NO [facility] 04-24-2023 10:42-0500 Inhaled oxygen flow rate 8 L/min PHYSICIAN NO [facility] 04-24-2023 08:52-0500 Body height 152.4 cm PHYSICIAN NO [facility] 04-24-2023 08:52-0500 Body mass index (BMI) [Ratio] 29 kg/m2 PHYSICIAN NO [facility] 04-24-2023 08:52-0500 Body weight 67.58 kg PHYSICIAN NO [facility] 04-20-2023 08:56-0500 Body mass index (BMI) [Ratio] 30.09 kg/m2 Dawn Huitron MD Work Phone: [facility] 04-20-2023 08:56-0500 Body weight 67.59 kg Dawn Huitron MD Work Phone: [facility] 04-20-2023 08:56-0500 Diastolic blood pressure 66 mm[Hg] Dawn Huitron MD Work Phone: [facility] 04-20-2023 08:56-0500 Systolic blood pressure 110 mm[Hg] Dawn Huitron MD Work Phone: [facility] Encounters Encounter Date Encounter Type Care Provider Facility Start: 09-01-2024 End: 09-01-2024 flow sheet Sarah NGUYEN Work Phone: [facility] Comment on above: Third trimester preg ayanna ([facility]); 28 weeks gestation of ([facility]); size inconsistent with dates ([facility]); Nonintractable headache, unspecified chronicity pattern, unspecified headache type Start: 09-01-2024 End: 09-01-2024 ambulatory SARAH KERN Not Available Start: 09-01-2024 End: 09-01-2024 Bamboo flowsheet Sarah NGUYEN Work Phone: [facility] Start: 09-01-2024 End: 09-01-2024 Bamboo flowsheet Sarah NGUYEN Work Phone: [facility] Start: 08-25-2024 End: 08-25-2024 Clinisync Result Encounter Generic External Data Provider [facility] Unsolicited Start: 08-25-2024 End: 08-25-2024 Clinisync Result Encounter Generic External Data Provider [facility] Unsolicited Start: 08-11-2024 End: 08-11-2024 Bamboo flowsheet Newton Raul DO Work Phone: [facility] Start: 08-11-2024 End: 08-11-2024 Bamboo flowsheet Newton Raul DO Work Phone: [facility] Start: 08-11-2024 End: 08-11-2024 flow [...] Start: 07-20-2024 End: 07-20-2024 Bamboo flowsheet Yris Jasmin [employer] Work Phone: [facility] Start: 07-20-2024 End: 07-20-2024 Bamboo flowsheet Yris Jasmin [employer] Work Phone: [facility] Start: 07-20-2024 End: 07-20-2024 flow sheet Yris Jasmin [employer] Work Phone: [facility] Comment on above: Second trimester pre gnancy; 22 weeks gestation of ; Encounter for screening for cervical length Start: 07-20-2024 End: 07-20-2024 ambulatory YRIS JASMIN Not Available Start: 07-06-2024 End: 07-06-2024 Clinisync [...] Start: 06-06-2024 End: 06-10-2024 Bamboo flowsheet Sarah NGUYNE Work Phone: [facility] Start: 06-06-2024 End: 06-10-2024 Clinisync Result Encounter Sarah NGUYEN Work Phone: [facility] Unsolicited Start: 06-06-2024 End: 06-07-2024 External Result Encounter Sarah NGUYEN Work Phone: [facility] External Department Unsolicited Start: 06-06-2024 End: 06-06-2024 Patient encounter procedure Sarah NGUYEN Work Phone: [facility] Start: 06-06-2024 End: 06-06-2024 Periodic preventive med est patient 18-39 yrs Sarah NGUYEN Work Phone: [facility] Comment on above: 16 weeks gestation o f ; Second trimester ; Screening, , for anatomic survey; Exposure to STD; Vaginal discharge; Well woman exam with routine gynecological exam Start: 06-06-2024 End: 06-06-2024 ambulatory SARAH KERN Not Available Start: 05-09-2024 End: 05-09-2024 Bamboo flowsheet Newton Raul DO Work Phone: [facility] Start: 05-09-2024 End: 05-09-2024 Bamboo flowsheet Newton Raul DO Work Phone: [facility] Start: 05-09-2024 End: 05-09-2024 Clinisync Result Encounter Newton Raul DO Work Phone: [facility] External Department Unsolicited Start: 05-09-2024 End: 05-09-2024 flow sheet Newton Raul DO Work Phone: [facility] Comment on above: First trimester [...] 01-06-2024 Bamboo flowsheet Sarah NGUYEN Work Phone: [facility] Start: 01-06-2024 End: 01-06-2024 Bamboo [...] Unsolicited Start: 11-13-2023 End: 11-13-2023 ambulatory PHYSICIAN [facility] Work Phone: Start: 11-13-2023 End: 11-13-2023 Departed Referred PHYSICIAN NO [facility] Work Phone: Start: 11-12-2023 End: 11-12-2023 Clinisync Result Encounter Newton Severinoo DO Work Phone: [facility] Unsolicited Start: 11-12-2023 End: 11-12-2023 Clinisync Result Encounter Newton Raul DO Work Phone: [facility] Unsolicited Start: 04-29-2023 End: 04-30-2023 Patient encounter procedure PHYSICIAN NO [facility] [place] [address] - O/P Start: 04-29-2023 End: 04-30-2023 ambulatory PHYSICIAN NO [facility] Work Phone: Start: 04-24-2023 End: 04-24-2023 Admission to same day surgery center PHYSICIAN NO [facility] [place] Start: 04-24-2023 End: 04-24-2023 ambulatory PHYSICIAN NO [facility] Work Phone: Start: 04-20-2023 End: [...] Date Procedure Procedure Detail Performing Clinician Start: 09-01-2024 Urnls dip stick/tabl et rgnt non-auto w/o micrscp Sarah NGUYEN Work Phone: Start: 08-25-2024 GLUCOSE 1 HOUR Newton Fa zio DO Work Phone: Start: 08-11-2024 Urnls dip stick/tabl et rgnt [...] on above: Result Comment: PERF ORMED BY: [facility] [address] [place] [address] PATHOLOGIST BRILLIANDEER LOOPER CHUY PALOMO M.D. Start: 04-24-2023 Dilation and curetta ge of uterus PHYSICIAN NO FAMILY Start: 10-01-2020 Delivery of Products of Conception, External Approach TERENCE SCHMITZ Start: 10-01-2020 Repair Vulva, Air Route Traffic Controller al Approach TERENCE SCHMITZ Plan of Treatment Date Care Activity Detail Author Start: 11-07-2024 Influenza vaccination Influenz a Vaccine (Season Ended) [facility] Start: 09-14-2024 End: 09-14-2024 Patient encounter procedure 09/14/2024 3:30 PM EDT Routine [facility] [address] [place] [id number] Newton Carter, DO [address], [place] [id number] [facility] Start: 09-14-2024 End: 09-14-2024 Professional / ancillary services management 09/14/2024 3:00 PM EDT Ancillary Procedure [facility] [address] [place] [address] [place] [address] [facility] Start: 09-01-2024 End: 09-01-2024 Patient encounter procedure [facility] Comment on above: Third trimester preg ayanna ([facility]); 28 weeks gestation of ([facility]) Start: 09-01-2024 End: 01-01-2025 US for US OB follow up transabdominal approach Imaging Routine Nonintractable headache, unspecified chronicity pattern, unspecified headache type Expected: 09/01/2024, Expires: 01/01/2025 [facility] Work Phone: Comment on above: Expected: 09/01/2024 , Expires: 01/01/2025 Start: 08-11-2024 End: 08-11-2025 CBC panel - Blood by Automated count CBC Lab Routine Diabetes mellitus screening Expected: 08/11/2024 (Approximate), Expires: 08/11/2025 [facility] [employer] Work Phone: Comment on above: Expected: 08/11/2024 (Approximate), Expires: 08/11/2025 Start: 08-11-2024 End: 08-11-2025 Measurement of glucose 1 hour after glucose challenge for glucose tolerance test Glucose tolerance, 1 hour Lab Routine Diabetes mellitus screening Expected: 08/11/2024 (Approximate), Expires: 08/11/2025 [facility] Comment on above: Expected: 08/11/2024 (Approximate), Expires: 08/11/2025 Start: 08-11-2024 End: 08-11-2024 Patient encounter procedure [facility] Comment on above: Arrived Start: 07-20-2024 End: 10-20-2024 US Pelvis transvaginal US OB transvaginal Imaging Routine Encounter for screening for cervical length Expected: 07/20/2024, Expires: 10/20/2024 [facility] Work Phone: Comment on above: Expected: 07/20/2024 , Expires: 10/20/2024 Start: 07-20-2024 End: 07-20-2024 Patient encounter procedure 07/20/2024 9:30 AM EDT Routine [facility] [address] [place] [phone] Yris Castellanos NP [address] [place] [address] Arrived [facility] Comment on above: Arrived Start: 07-11-2024 End: 07-11-2024 Patient encounter procedure 07/11/2024 11:00 AM EDT Office Visit [facility] [address] [place] [phone] Sarah Kern PA [address] [place], [place] [id number] [facility] Start: 07-04-2024 End: 07-04-2024 Patient encounter procedure 07/04/2024 11:10 AM EDT Routine [facility] [address] [place] [address] Newton Carter DO [address] [place], [place] [id number] [facility] Start: 07-04-2024 End: 07-04-2024 Professional / ancillary services management 07/04/2024 10:00 AM EDT Ancillary Procedure [facility] [address] [place] [address] [facility] Start: 06-20-2024 End: 06-20-2024 Patient encounter procedure 06/20/2024 2:20 PM EDT Office Visit [facility] [address] [place] [address] Alina Schmitz NP [address] [place] [address] [facility] Start: 06-06-2024 End: 06-06-2025 US for US OB 14+ weeks anatomy scan Imaging Routine Screening, , for anatomic survey Expected: 06/06/2024, Expires: 06/06/2025 [facility] Comment on above: Expected: 06/06/2024 , [...] gestational age Expected: 04/07/2024 (Approximate), Expires: 04/07/2025 [facility] Comment on above: Expected: 04/07/2024 (Approximate), Expires: 04/07/2025 Start: 04-07-2024 End: 04-07-2025 Blood type and Indirect antibody screen panel - Blood Type and screen Lab Routine Missed menses , unspecified gestational age Expected: 04/07/2024 (Approximate), Expires: 04/07/2025 [facility] Work Phone: Comment on above: Expected: 04/07/2024 (Approximate), Expires: 04/07/2025 Start: 04-07-2024 End: 04-07-2025 Drugs of abuse panel - Urine by Screen method Rapid drug screen, urine Lab Routine , unspecified gestational age Encounter for supervision of normal first in first trimester Expected: 04/07/2024 (Approximate), Expires: 04/07/2025 [facility] Comment on above: Expected: 04/07/2024 (Approximate), Expires: 04/07/2025 Start: 01-06-2024 End: 01-06-2024 Patient encounter procedure 01/06/2024 10:40 AM EDT Office Visit [facility] [address] [place] [address] Sarah Kern PA [address] [place], [place] [phone] Arrived [facility] Comment on above: Arrived Start: 11-13-2023 End: 11-13-2023 Patient encounter procedure 11/13/2023 9:30 AM EDT Procedure Visit [facility] Newton Carter DO [address] [place], [place] [id number] [facility] Start: 11-08-2023 Influenza vaccination Influenza Vacc ine (#1) [facility] Start: 04-30-2023 [facility] Start: 04-24-2023 [facility] Start: 04-24-2023 End: 04-24-2023 [facility] Start: 04-20-2023 End: 04-20-2024 hCG, quantitative [facility] Work Phone: Comment on above: Ordered: 04/20/2023 Expected: 04/20/2023 (Approximate), Expires: 04/20/2024 Start: 04-13-2023 End: 04-13-2023 Patient encounter procedure 04/13/2023 9:45 AM EST Office Visit [facility] [address] [place] [phone] Dawn Huitron MD [address] [place] [address] [facility] Start: 04-13-2023 End: 04-13-2023 Professional / ancillary services management 04/13/2023 9:30 AM EST Ancillary Procedure [facility] [address] [place] [address] [facility] Bacteria identified in Urine by Culture Urine culture Microbiology Routine Missed menses Ordered: 04/07/2024 [facility] Comment on above: Ordered: 04/07/2024 Basophils [#/volume] in Blood by Automated count [facility] Basophils/100 leukocytes in Blood by Automated count [facility] CBC W Auto Different ial panel - Blood CBC and differential Lab Routine Missed menses , unspecified gestational age Ordered: 04/07/2024 [facility] Comment on above: Ordered: 04/07/2024 CHLAMYDIA TRACHOMATI S (GENITO/STI) CHLAMYDIA TRACHOMATIS (GENITO/STI) Lab Routine Exposure to STD Ordered: 06/06/2024 [facility] Comment on above: Ordered: 06/06/2024 Cytology Cervical or vaginal smear or scraping study Pap Smear Pathology and Cytology Routine Well woman exam with routine gynecological exam Ordered: 06/06/2024 [facility] Comment on above: Ordered: 06/06/2024 Eosinophils/100 leukocytes in Blood by Automated count [facility] Erythrocyte distribution width [Ratio] by Automated count [facility] Erythrocytes [#/volu me] in Blood [facility] Hematocrit [Volume Fraction] of [facility] Hemoglobin [Mass/volume] in Blood [facility] Hemoglobin A1c/Hemoglobin.total in Blood Hemoglobin A1c Lab Routine Missed menses , unspecified gestational age Ordered: 04/07/2024 [facility] Comment on above: Ordered: 04/07/2024 Hepatitis B virus surface Ag [Presence] in Serum or Plasma by Immunoassay Hepatitis B surface antigen Lab Routine Missed menses , unspecified gestational age Ordered: 04/07/2024 [facility] Comment on above: Ordered: 04/07/2024 Hepatitis C virus Ab [Presence] in Serum or Plasma by Immunoassay Hepatitis C antibody Lab Routine Missed menses , unspecified gestational age Ordered: 04/07/2024 [facility] Comment on above: Ordered: 04/07/2024 HIV-1/HIV-2 antigen/antibody combination immunoassay HIV-1 and HIV-2 antibodies Lab Routine Missed menses , unspecified gestational age Ordered: 04/07/2024 [facility] Comment on above: Ordered: 04/07/2024 Leukocytes [#/volume ] corrected for nucleated erythrocytes in Blood by Automated coun [facility] Leukocytes [#/volume ] in Blood [facility] Lymphocytes [#/volum e] in Blood by Automated count [facility] Lymphocytes/100 leukocytes in Blood by Automated count [facility] MCH [Entitic mass] b y Automated count [facility] MCHC [Mass/volume] b y Automated count [facility] MCV [Entitic volume] by Automated count [facility] Measurement of gluco se 1 hour after glucose challenge for glucose tolerance test GTT, 1 hour Lab Routine Insulin resistance complicating Ordered: 05/09/2024 [facility] Work Phone: Comment on above: Ordered: 05/09/2024 Monocytes [#/volume] in Blood by Automated count [facility] Monocytes/100 leukocytes in Blood by Automated [facility] MYCOPLASMA/UREAPLASM A PANEL MYCOPLASMA/UREAPLASMA PANEL Lab Routine Vaginal discharge Ordered: 04/20/2023 [facility] Comment on above: Ordered: 04/20/2023 Neisseria gonorrhoea e DNA [Presence] in Unspecified specimen by RAMA with probe detection Neisseria gonorrhea DNA probe, direct Lab Routine Exposure to STD Ordered: 06/06/2024 [facility] Comment on above: Ordered: 06/06/2024 Neutrophils [#/volum e] in Blood by Automated count [facility] Neutrophils/100 leukocytes in Blood by Automated count [facility] Nucleated erythrocyt es [Presence] in Blood by Automated count [facility] Patient Education [facility] Work Phone: Patient referral [facility] Work Phone: Platelet mean volume [Entitic volume] in Blood by Automated count [facility] Platelets [#/volume] in Blood [facility] Reagin Ab [Presence] in Serum by RPR RPR Lab Routine Missed menses , unspecified gestational age Ordered: 04/07/2024 [facility] Comment on above: Ordered: 04/07/2024 Rubella antibody, IgG Rubella an tibody, IgG Lab Routine Missed menses , unspecified gestational age Ordered: 04/07/2024 [facility] Comment on above: Ordered: 04/07/2024 SURESWAB(R) ADVANCED VAGINITIS PLUS, TMA SURESWAB(R) ADVANCED VAGINITIS PLUS, TMA Pathology and Cytology Routine Vaginal discharge Ordered: 06/06/2024 [facility] Work Phone: Comment on above: Ordered: 06/06/2024 Payers Date Payer Category Payer Self-pay 2023 [facility] BCBS [id number] 2023 Unknown BCBS BCBS xxxxxx [id number] 2023-Present [phone] [id number] 2023 Unknown [id number] 1998 Unknown [id number] 2.16.840.1.565349.3.579.2. 593 1998 Unknown [id number] 2.16.840.1.955655.3.579.2. 593 1998 Unknown [id number] 2.16.840.1.624296.3.579.2. 593 1998 Unknown [id number] 2.16.840.1.995428.3.579.2. 593 1998 Unknown [id number] 2.16.840.1.705785.3.579.2. 593 1998 Unknown [id number] 2.16.840.1.977436.3.579.2. 593 1998 Unknown [id number] 2.16.840.1.090057.3.579.2. 593 1998 Unknown [id number] 2.16.840.1.294139.3.579.2. 593 1998 Unknown [id number] 2.16.840.1.910231.3.579.2. 593 1998 Unknown [id number] 2.16.840.1.751957.3.579.2. 1259 1998 Unknown [id number] 2.16.840.1.877647.3.579.2. 1259 1998 Unknown [id number] 2.16.840.1.417192.3.579.2. 1259 1998 Unknown [id number] 2.16.840.1.101504.3.579.2. 1259 1998 Unknown [id number] 2.16.840.1.962666.3.579.2. 1259 1998 Unknown [id number] 2.16.840.1.269808.3.579.2. 1259 1998 Unknown [id number] 2.16.840.1.601309.3.579.2. 1259 1998 Unknown [id number] 2.16.840.1.305422.3.579.2. 1259 1959 Unknown [id number] 1959 Unknown [id number] Unknown [id number] 2.16.840.1.943572.3.579.2. 531 Unknown [id number] 2.16.840.1.934116.3.579.2. 531 Unknown [id number] 2.16.840.1.169428.3.579.2. 531 Social History Date Type Detail Facility [...] Start: 2000 Sex Assigned At Female F [facility] How often to you hav e [...] Facility 04-29-2023 Functional status Patient at [facility] Work Phone: Mental Status Date Assessment Result Facility 04-29-2023 Cognitive function Cognitive Sta tus Patient at [facility] Work Phone: Clinical Notes 04-20-2023 to 09-01-2024 PATRICK Cowart - 09/01/2024 2:30 PM PATRICK Mitchell - 08/11/2024 10:40 AM ASHLEYTYris Castellanos NP - 07/20/2024 9:30 AM PATRICK Mitchell - 06/06/2024 11:30 AM PATRICK Mitchell - 01/06/2024 10:40 AM EDT Note Date & Type Note Facility 09-01-2024 History of Presen t illness Narrative Reason for Appointment: Patient ID: Sarah Arce is a 24 y.o. female who presents for Routine Visit Patient presents today for Return OB appointment. MEDICATIONS Current Outpatient Medications Medication Instructions magnesium oxide (MAG-OX) 400 mg, Oral, Daily metFORMIN XR (GLUCOPHAGE-XR) 500 mg, Oral, Daily [...] reviewed. Vitals: Estimated body mass index is 33.98 kg/m as calculated from the following: Height as of 01/06/24: 4' 11 . Weight as of this encounter: 168 lb 4 oz. BP: 108/70 Patient's last menstrual period was 01/30/2024. ASSESSMENT & PLAN ICD-10-CM 1. Third trimester ([facility]) Z34.93 POCT urinalysis dipstick manually resulted 2. 28 weeks gestation of ([facility]) Z3A.28 3. size inconsistent with dates ([facility]) O26.849 magnesium oxide (Mag-Ox) 400 MG tablet 4. Nonintractable headache, unspecified chronicity pattern, unspecified headache type R51.9 magnesium oxide (Mag-Ox) 400 MG tablet US OB follow up transabdominal approach Return OB: Patient presents today for a routine obstetrics appointment. Patient is currently 28w3d . Patient states she is doing well but has complaints of being tired due to current . Patient has verbalizes frequent movement. labor precautions was discussed/given and patient was instructed to perform kick counts three times a day. Patient states having some dizziness and muscle cramps. Pt encouraged to take in fluids with electrolytes and called in magnesium Orders Placed This Encounter Procedures US OB follow up transabdominal approach POCT urinalysis dipstick manually resulted Follow Up: Patient is to return to office in 2 week for routine OB appointment. Documented by PATRICK Cowart on behalf of: PATRICK Cowart documented in this encounter [facility] 08-11-2024 History of Presen t illness Narrative [...] Newton Carter DO documented in this encounter [facility] 07-20-2024 History of Presen t illness [...] nursing note reviewed. Exam conducted with a forensic specialist present. Vitals: Estimated body mass index is [...] Yris Castellanos NP documented in this encounter [facility] 06-06-2024 History of Presen t illness [...] nursing note reviewed. Exam conducted with a forensic specialist present. Vitals: Estimated body mass index is [...] of: PATRICK Cowart documented in this encounter [facility] 05-09-2024 History of Presen t illness [...] nursing note reviewed. Exam conducted with a forensic specialist present. Vitals: Estimated body mass index is [...] or undercooked meat, and stay away from [facility]. Patient has been consulted regarding any [...] Newton Carter DO documented in this encounter [facility] 04-07-2024 History of Presen t illness [...] or undercooked meat, and stay away from [facility]. Patient has also been advised to [...] Cayla Mayorga MA documented in this encounter [facility] 01-06-2024 History of Presen t illness [...] after having a D&C performed at [facility] with Dr. Carter. 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 History & Physical Signed Patient: Sarah Arce MR#: [id number] : 2000 Acct:[id number] Age/Sex: 23 / F Adm Date: 4 Loc: Room: [address] [place] [address] Type: REG CLI Attending Dr: Dawn Huitron MD Copies to: NO FAMILY PHYSICIAN Dawn Huitron MD-[facility]~ Date of Service: 04/29/2023 FIRING PIN GAUGER - HPI History of Present Illness Chief [...] negative unless noted below or in HPI COUNT INCLUDES [facility] Medical History (Updated 04/29/23 @ 22:08 [...] @ 125 mls/hr IV .Q8H [facility] Stop: 04/28/24 16:59 Last Admin: 04/29/23 17:50 Dose: 125 mls/hr Cefazolin Sodium (Ancef) 2 gm in 50 mls @ 100 mls/hr IV Q8H [facility] Last Admin: 04/29/23 17:51 Dose: 100 mls/hr Oxytocin 40 unit/ Lactated (Ringer's) 504 mls @ 150 mls/hr IV .Q3H22M ONE; Protocol Stop: 04/30/23 02:21 Misoprostol (Misoprostol 200 Mcg Tablet) 800 mcg VAGINAL Q4H [facility] Stop: 04/30/23 02:31 FIRING PIN GAUGER - Exam Physical Exam Vital signs: Temp [...] Routine Psychiatric Exam Psychiatric: Present normal affect FIRING PIN GAUGER - Results Laboratory Results - Last 48 hrs. 04/29/23 20:27: Blood Type Recheck A Positive 04/29/23 17:45: HCG, Quant 3230.00 04/29/23 17:31: Corrected WBC 13.6 H, Uncorrected WBC Count 13.6 H, RBC 4.93, Hgb 13.3, Hct 39.8, MCV 80.8, MCH 27.0, MCHC 33.5, RDW 13.9, Plt Count 369, MPV 7.0, Neut % (Auto) 77.6, Lymph % (Auto) 17.0, [place]ata % (Auto) 4.0, Eos % (Auto) 1.1, Baso % (Auto) 0.3, Nucleat RBC Rel Count 0.2, Neut # (Auto) 10.6 H, Lymph #(Auto) 2.3, [place]ata # (Auto) 0.5, Eos # (Auto) 0.2, Baso # (Auto) 0.0, Blood Type APositive, Antibody Screen Negative Diagnostic Imaging Comments: 2.1 cm uterine complex with vascularization, essentially unchanged from yesterday FIRING PIN GAUGER - A/P (1) Vaginal bleeding: Plan Failed Cytotec evacuation of uterine tissue Suction D&C D&C Documented By: CHUCK Astorga 04/29/23 22 06 Signed By: <Electronically signed by CHUCK Huitron> 04/30/23 0702 [facility] Work Phone: 1(220) 188-280402-12-2024 History of Present illness Narrative* Dawn Huitron [...] impossible D&C on Thursday [facility]* Diagnosis Missed Bleeding in early Unspecified hemorrhage in early , unspecified as to episode of care Vaginal discharge Leukorrhea, not specified as infective [facility] noteNo assessment information available[facility] Work Phone: Evaluation note* Diagnosis Onset Date Resolution Status Vaginal bleeding acute [facility] Work Phone: Evaluation note* Diagnosis Encounter for postoperative care Encounter for weight management documented in this encounter [facility]* Diagnosis Missed menses , unspecified gestational age Encounter for supervision of normal first in first trimester Nausea and vomiting in Unspecified vomiting of , unspecified as to episode of care documented in this encounter [facility]* Diagnosis First trimester state, incidental 12 weeks gestation of Insulin resistance complicating [facility]* Diagnosis 16 weeks gestation of Second trimester state, incidental Screening, , for anatomic survey Encounter for anatomic survey Exposure to STD Vaginal discharge Leukorrhea, not specified as infective Well woman exam with routine gynecological exam Routine gynecological examination documented in this encounter [facility]* Diagnosis Second trimester state, incidental 22 weeks gestation of Encounter for screening for cervical length documented in this encounter [facility]* Diagnosis Second trimester state, incidental 25 weeks gestation of Diabetes mellitus screening Screening for diabetes mellitus documented in this encounter [facility]* Diagnosis Third trimester ([facility]) state, incidental 28 weeks gestation of ([facility]) size inconsistent with dates ([facility]) Nonintractable headache, unspecified chronicity pattern, unspecified headache type [facility] Dis[facility] instructions Additional Instructions SPECIAL INSTRUCTIONS Call for heavy bleeding FOLLOW UP Thursday [facility] Work Phone: Summary Purpose Family History [...] CREATED AUTHOR AUTHOR'S ORGANIZ ATION 11/23/2023 [facility] DATE CREATED AUTHOR AUTHOR'S ORGANIZ ATION 09/03/2024 [facility] dical Specialists EPIC Reason for Visit (unrecogniz ed section and content) Reason Comments Care Reason Comments Post-op Visit Reason Comments Amenorrhea Reason Comments Routine Visit Care Teams (unrecognized sec tion and content) Skip Operator Relationship Specialty Start Date End Date Unallocated, Jodee Provider [address] [place] [address] PCP - General Family Medicine 04/13/23 Team [...] November 13, 2023 End: November 13, 2023 Skip Operator Relationship Specialty Start Date End Date Unallocated, Jodee Silverio MD [address] [place] [address] PCP - General Family Medicine 04/13/23 Skip Operator Relationship Specialty Start Date End Date Unallocated, Jodee Silverio MD [address] [place] [address] PCP - General Family Medicine 04/13/23 Skip Operator Relationship Specialty Start Date End Date Unallocated, Jodee Silverio MD [address] [place] [address] PCP - General Family Medicine 04/13/23 Skip Operator Relationship Specialty Start Date End Date Unallocated, Jodee Silverio MD [address] [place] [address] PCP - General Family Medicine 04/13/23 Skip Operator Relationship Specialty Start Date End Date Unallocated, Jodee Silverio MD [address] [place] [address] PCP - General Family Medicine 04/13/23 Skip Operator Relationship Specialty Start Date End Date Angel Seay MD [address] [place] [address] PCP - General Family Medicine 01/26/24 Alina Schmitz NP [address] [place] [address] Nurse Practitioner Family Medicine 01/26/24 Skip Operator Relationship Specialty Start Date End Date Angel Seay MD [address] [place] [address] PCP - General Family Medicine 01/26/24 Alina Schmitz NP [address] [place] [address] Nurse Practitioner Family Medicine 01/26/24 Skip Operator Relationship Specialty Start Date End Date Angel Seay MD [address] [place] [address] PCP - General Family Medicine 01/26/24 Alina Schmitz NP [address] [place] [address] Nurse Practitioner Family Medicine 01/26/24 Skip Operator Relationship Specialty Start Date End Date Angel Seay MD [address] [place] [address] PCP - General Family Medicine 01/26/24 Alina Schmitz NP [address] [place] [address] Nurse Practitioner Family Medicine 01/26/24 Skip Operator Relationship Specialty Start Date End Date Angel Seay MD [address] [place] [address] PCP - General Family Medicine 01/26/24 Alina Schmitz NP [address] [place] [address] Nurse Practitioner Family Medicine 01/26/24 Skip Operator Relationship Specialty Start Date End Date Angel Seay MD [address] [place] [address] PCP - General Family Medicine 01/26/24 Alina Schmitz NP [address] [place] [address] Nurse Practitioner Family Medicine 01/26/24 Skip Operator Relationship Specialty Start Date End Date Angel Seay MD [address] [place] [address] PCP - General Family Medicine 01/26/24 Alina Schmitz NP [address] [place] [address] Nurse Practitioner Family Medicine 01/26/24 Skip Operator Relationship Specialty Start Date End Date Angel Seay MD [address] [place] [address] PCP - General Family Medicine 01/26/24 Alina Schmitz NP [address] [place] [address] Nurse Practitioner Family Medicine 01/26/24 Skip Operator Relationship Specialty Start Date End Date Angel Seay MD [address] [place] [address] PCP - General Family Medicine 01/26/24 Alina Schmitz NP [address] [place] [address] Nurse Practitioner Family Medicine 01/26/24 Skip Operator Relationship Specialty Start Date End Date Angel Seay MD [address] [place] [address] PCP - General Family Medicine 01/26/24 Alina Schmitz NP [address] [place] [id number] Nurse Practitioner Family Medicine 01/26/24 Goals (unrecognized [...] BE BASED ON THE PRIMARY CLINICAL RECORDS. [facility] [employer] provides no warranty or guarantee of the accuracy or completeness of information in this document.
[2024-09-03 07:38] LABS: Glucose Fasting 96 mg/dL (<95)
[2024-09-03 09:36] LABS: Glucose 1 Hour 160 mg/dL (<180)
[2024-09-03 11:07] LABS: Glucose 3 Hour 113 mg/dL (<140)
[2024-09-03 12:17] LABS: Glucose 2 Hour 109 mg/dL (<155)
== END 2024-09-03 07:18 | disposition home or self-care (01) ==
LOC: LAB 07:18
PROVIDERS: PCP Nurse Practitioner; Visit Provider Obstetrics & Gynecology
DX: R73.09 Other abnormal glucose (principal)
CPT/HCPCS: 36415; 82951; 82952

== ENCOUNTER 2024-10-09 16:35 | Observation (INO) | payer BC, SELFPAY ==
--- OUTSIDE RECORDS SUMMARY | 2024-09-26 14:50 | XMS_ITS | Encounter Summary ---
Author Organization [facility] Address [address] [place] [address] Care Team Providers Care Specialty Finishing Utility Person Name Role Phone Angel Seay MD Primary Care Provider Alina Schmitz NP Unavailable [phone] Reason for Visit * Reason Comments Routine Visit Encounter Details Date Type Department Care Team (Late st Contact Info) Description 09/26/2024 2:50 PM EDT Routine JO[facility]E Miguel [facility] [address] [place] [address] Newton Carter DO [address] [facility] [address] [place], [id number] Third trimester ([facility]); 32 weeks gestation of ([facility]) Social History Tobacco Use Types Packs/Day Years [...] Recorded Patient Health Questionnaire-2 Score 0 04/29/2023 [place] Depression Scale Answer Date Recorded [place] Depression Scale Total 0 04/13/2023 The thought [...] Sign Reading Time Taken Comments Blood Pressure 108/74 09/26/2024 2:58 PM EDT Pulse - - Temperature - - Respiratory Rate - - Oxygen Saturation - - Inhaled Oxygen Concentration - - Weight 77 kg (169 lb 12 oz) 09/26/2024 2:58 PM E DT Height - - Body Mass Index 34.29 01/06/2024 10:50 AM EDT documented in this encounter Plan of Treatment Upcoming Encounters Date Type Department Care Team (Late st Contact Info) Description 10/10/2024 10:50 AM EDT Routine [facility]riam [facility]BGYN [address] [facility] [place] [address] Sarah Penn PA [address] [facility] [place] [address] documented as of this encounter Procedures Procedure Name Priority Date/Time Associated Diagnosis Comments POCT URINALYSIS DIPSTICK Routine 09/26/2024 3:03 PM EDT Third trimester ([facility]) documented in this encounter Results * (ABNORMAL) POCT urinalysis dipstick manually resulted (09/26/2024 3:03 PM EDT) Color, UA Yellow Clarity, UA Clear Glucose, UA Negative Negative - 2000(110) ++++ mg/dL Bilirubin, UA Negative Negative - 4(70) +++ mg/dL Ketones, UA Negative Negative - 160(16) ++++ mg/dL Spec Grav, UA 1.015 1 - 1.03 Blood, UA Negative Negative - 50 Sherman/mcL pH, UA 6.5 5 - 9 Protein, UA Trace Negative - 1999(20) ++++ mg/dL Urobilinogen, UA 0.2 0.2 - 12 mg/dL Leukocytes, UA Negative Negative - 500+++ Jackie/mcL Nitrite, UA Negative Negative - Positive Urine 09/26/2024 3:03 PM EDT Newton Raul DO POINT OF CARE TEST ENTER/EDIT OR DERABLES Final Result documented in this encounter Visit Diagnoses Diagnosis Third trimester ([facility]) state, incidental 32 weeks gestation of ([facility]) documented in this encounter Care Teams Specialty Finishing Utility Person Relationship Specialty Start Date End Date Angel Seay MD [address] [place] [address] PCP - General Family Medicine 01/26/24 Alina Schmitz NP [address] [place] [address] Nurse Practitioner Family Medicine 01/26/24 documented as of this encounter
--- OUTSIDE RECORDS SUMMARY | 2024-10-09 16:39 | XMS_ITS | Encounter Summary ---
Author Organization [facility] Address [address] [place] [address] Care Team Providers Care Seasonal Sales Associate Name Role Phone Unallocated, Jodee Provider Primary Care Provi kristopher Angel Seay MD Primary Care Provider Alina Schmitz NP Unavailable [phone] Encounter Details Date Type Department Care Team (Late st Contact Info) Description 11/13/2023 Abstract JODEE Miguel OBGYN [address] [place] [phone] Newton Carter DO [address] [facility] [address] [place], [place] [id number] Social History Tobacco Use Types Packs/Day Years [...] Recorded Patient Health Questionnaire-2 Score 0 04/29/2023 [place] Depression Scale Answer Date Recorded [place] Depression Scale Total 0 04/13/2023 The thought [...] 10/10/2024 10:50 AM EDT Routine [facility] Myriam OBGYKaty [address] [place] [address] Sarah Penn PA [address] [facility] [place] [address] documented as of this encounter Visit Diagnoses Not on filedocumented in this encounter Care Teams Seasonal Sales Associate Relationship Specialty Start Date End Date Unallocated, Noms MD Jean Claude [address] [place] [address] PCP - General Family Medicine 04/13/23 01/25/24 Angel Seay MD [address] [place] [phone] PCP - General Family Medicine 01/26/24 Alina Schmitz NP [address] [place] [address] Nurse Practitioner Family Medicine 01/26/24 documented as of this encounter
--- OUTSIDE RECORDS SUMMARY | 2024-10-09 16:39 | XMS_ITS | Encounter Summary ---
Author Organization [facility] Address [address] [place] [address] Care Team Providers Care Passenger Car Upholsterer Apprentice Name Role Phone Angel Seay MD Primary Care Provider [phone] Alina Schmitz NP Unavailable [phone] Encounter Details Date Type Department Care Team (Late st Contact Info) Description 06/14/2024 Orders Only [facility]t OBG[facility] [address] [place] [address] Rcahael Heard LPN [address] [place] [address] Social History Tobacco Use Types Packs/Day Years [...] Recorded Patient Health Questionnaire-2 Score 0 04/29/2023 [place] Depression Scale Answer Date Recorded [place] Depression Scale Total 0 04/13/2023 The thought [...] Description 10/10/2024 10:50 AM EDT Routine [facility] [address] [facility] [place] [address] Sarah Penn PA [address] [facility] [place] [address] documented as of this encounter Procedures Procedure Name Priority Date/Time Associated Diagnosis Comments PAP SMEAR Routine 06/06/2024 12:00 AM EDT documented in this encounter Results * Pap Smear (06/06/2024 12:00 AM EDT) Swab Cervical swab / Unknown Raul Nurse Noms Bcp Ob LAB CYTOLOGY ORDERABLES Final Result EXTERNAL LAB documented in this encounter Visit Diagnoses Not on filedocumented in this encounter Care Teams Passenger Car Upholsterer Apprentice Relationship Specialty Start Date End Date Angel Seay MD [address] [place] [address] PCP - General Family Medicine 01/26/24 Alina Schmitz NP [address] [place] [address] Nurse Practitioner Family Medicine 01/26/24 documented as of this encounter
--- OUTSIDE RECORDS SUMMARY | 2024-10-09 16:39 | XMS_ITS | Encounter Summary ---
Author Organization [facility] Address [address] [place] [address] Care Team Providers Care Transfer Agent Name Role Phone Unallocated, Jodee Silverio MD Primary Care Provi kristopher Angel Seay MD Primary Care Provider Alina Schmitz NP Unavailable [phone] Encounter Details Date Type Department Care Team (Late st Contact Info) Description 04/30/2023 Orders Only JODEE Baugh OBGYN [address] [facility] [address] [place] [address] Dawn Hiutron MD [address] [facility] [address] [place] [address] Social History Tobacco Use Types Packs/Day Years Used Date Smoking Tobacco: Never Smokeless Tobacco: Never Alcohol Use Standard Drinks/Week Comments Not Currently 0 (1 standard drink = 0.6 oz pur e alcohol) none with PHQ-2 Answer Date Recorded Patient Health Questionnaire-2 Score 0 04/29/2023 [place] Depression Scale Answer Date Recorded [place] Depression Scale Total 0 04/13/2023 The thought [...] Info) Description 10/10/2024 10:50 AM EDT Routine JODEE Miguel OBNACHO [address] [facility] [place] [address] Sarah Penn PA [address] [facility] [place] [address] documented as of this encounter Procedures Procedure Name Priority Date/Time Associated Diagnosis Comments ABO GROUP AND RH TYPE Routine 04/29/2023 9:35 AM EST documented in this encounter Results * ABO/Rh (04/29/2023 9:35 AM EST) Blood Venous blood specimen / Unknown Dawn Huitron MD LAB BLOOD ORDERABLES Final Res ult documented in this encounter Visit Diagnoses Not on filedocumented in this encounter Care Teams Transfer Agent Relationship Specialty Start Date End Date Unallocated, Jodee Silverio MD [address] [place] [address] PCP - General Family Medicine 04/13/23 01/25/24 Angel Seay MD [address] [place] [address] PCP - General Family Medicine 01/26/24 Alina Schmitz NP [address] [place] [address] Nurse Practitioner Family Medicine 01/26/24 documented as of this encounter
--- OUTSIDE RECORDS SUMMARY | 2024-10-09 16:39 | XMS_ITS | Encounter Summary ---
Author Organization [facility] Address [address] [place] [address] Care Team Providers Care Microfilm Technician Name Role Phone Angel Seay MD Primary Care Provider [phone] Alina Schmitz NP Unavailable [phone] Encounter Details Date Type Department Care Team (Late st Contact Info) Description 05/09/2024 Abstract [facility] RODRIG[facility] [address] [facility] [place] [address] Newton Carter DO [address] [facility] [place] [address] Social History Tobacco Use Types Packs/Day Years [...] Recorded Patient Health Questionnaire-2 Score 0 04/29/2023 [place] Depression Scale Answer Date Recorded [place] Depression Scale Total 0 04/13/2023 The thought [...] 10/10/2024 10:50 AM EDT Routine [facility] Myriam RODRIGUEZ [address] [facility] [place] [address] Sarah Penn PA [address] [facility] [address] documented as of this encounter Visit Diagnoses Not on filedocumented in this encounter Care Teams Microfilm Technician Relationship Specialty Start Date End Date Angel Seay MD [address] [place] [phone] PCP - General Family Medicine 01/26/24 Alina Schmitz NP [address] [place] [address] Nurse Practitioner Family Medicine 01/26/24 documented as of this encounter
--- OUTSIDE RECORDS SUMMARY | 2024-10-09 16:39 | XMS_ITS | Clinical Summary ---
Author Organization [facility] Address [id number] [address] [place] [address] Care Team Providers Care Track Helper Name Role Phone No Pcp, No Pcp [...] on file Insurance [place] [employer] Care Teams Track Helper Relationship Specialty Start Date End Date No Pcp, [place] [address] PCP - General Family Medicine 08/15/22
--- OUTSIDE RECORDS SUMMARY | 2024-10-09 16:39 | XMS_ITS | Encounter Summary ---
Author Organization [facility] Address [id number] [address] [place] [address] Care Team Providers Care Middle School History Teacher Name Role Phone No Pcp, No Pcp Primary Care Provider Unavailabl e Reason for Referral * Diagnostic Imaging (Routine) - Closed Specialty Diagnoses / Procedures Referred By Contac t Referred To Contact Maternal and Medicine Diagnoses High risk with low PAPPA (-associated plasma protein A) Procedures [facility] with or without consult Gregory Agarwal MD Phone: tel: fax: Maternal- Medicine at [facility] [address] [place] [address] Phone: tel: fax: Referral ID Status Reason Start Date Expiration Date Visits Re quested Visits Authorized [id number] Closed 07/23/2020 07/23/2021 1 1 Encounter Details Date Type Department Care Team (Late st Contact Info) Description 07/23/2020 Orders Only Maternal- Medicine at [facility] [address] [place] [address] Gregory Agarwal MD [address] [facility], [address] [place] [address] High risk with low PAPPA (-associated [...] as of this encounter Results * [facility] OB FOLLOW-UP, 1 FETUS (08/21/2020 12:48 PM EDT) Anatomical Region Laterality Modality Pelvis Ultrasound 08/21/2020 12:4 3 PM EDT Impressions 08/21/2020 3:26 PM EDT IMPRESSION: 1. Single intrauterine with expected interval growth from the previous ultrasound. 2. Amniotic fluid index is normal. Narrative 08/21/2020 3:26 PM EDT OBSTETRICS REPORT (Signed Final 08/21/2020 15:26) PATIENT INFO: ID #: [id number] : [birth year] (20 yrs)(F) Name: SARAH BRADLEYELLE Visit Date: 08/21/2020 12:43 LISBETH PERFORMED BY: Performed By: Danni Gan RDMS Attending: Marshall Cheng MD Referred By: [facility] Ref. Address: [facility] [address] [place], [place] [address] Location: [facility] SERVICE(S) PROVIDED: OB Follow-up, 1 fetus [id number] INDICATIONS: Screening for follow-up survey Z36.2 Screening [...] Final 08/21/2020 15:26) PATIENT INFO: ID #: [id number] : [birth year] (20 yrs)(F) Name: SARAH VICKERS Visit Date: 08/21/2020 12:43 LISBETH PERFORMED BY: Performed By: Danni Gan RDMS Attending: Marshall Cheng MD Referred By: [facility] Ref. Address: [address] [place], [place] [address] Location: [facility] SERVICE(S) PROVIDED: OB Follow-up, 1 fetus [id number] INDICATIONS: Screening for follow-up survey Z36.2 Screening [...] index is normal. us Gregory Agarwal MD [facility] US ORDERABLES Final Result documented in this encounter Visit Diagnoses Diagnosis High risk with low PAPPA (-associated plasma protein A)- Primary High risk with low PAPPA (-associated plasma protein A) Encounter for other screening follow-up Encounter for screening for growth retardation Supervision of high risk , unspecified, unspecified trimester Obesity complicating , unspecified trimester documented in this encounter Care Teams Middle School History Teacher Relationship Specialty Start Date End Date No Pcp, [place] [address] PCP - General Family Medicine 08/15/22 documented as of this encounter
--- OUTSIDE RECORDS SUMMARY | 2024-10-09 16:39 | XMS_ITS | Encounter Summary ---
Author Organization [facility] Address [address] [place] [address] Care Team Providers Care Client Analyst Name Role Phone Unallocated, Jodee Provider Primary Care Provi kristopher Angel Seay MD Primary Care Provider Alina Schmitz NP Unavailable [phone] Encounter Details Date Type Department Care Team (Late st Contact Info) Description 11/16/2023 Abstract JODEE Miguel OBGYN [address] [place] [phone] Newton Carter DO [address] [facility] [address] [place], [place] [phone] Social History Tobacco Use Types Packs/Day Years [...] Recorded Patient Health Questionnaire-2 Score 0 04/29/2023 [place] Depression Scale Answer Date Recorded [place] Depression Scale Total 0 04/13/2023 The thought [...] AM EDT Routine [facility] Myriam OBGYKaty [address] [place] [address] Sarah Penn PA [address] [facility] [place] [address] documented as of this encounter Visit Diagnoses Not on filedocumented in this encounter Care Teams Client Analyst Relationship Specialty Start Date End Date Unallocated, Noms MD Jean Claude [address] [place] [address] PCP - General Family Medicine 04/13/23 01/25/24 Angel Seay MD [address] [place] [address] PCP - General Family Medicine 01/26/24 Alina Schmitz NP [address] [place] [address] Nurse Practitioner Family Medicine 01/26/24 documented as of this encounter
--- OUTSIDE RECORDS SUMMARY | 2024-10-09 16:39 | XMS_ITS | Clinical Summary ---
Author Organization [facility] Address [address] [place] [address] Care Team Providers Care Pattern Perforating Machine Operator Name Role Phone Angel Seay MD Primary Care Provider [phone] Alina Schmitz NP Unavailable [phone] Allergies No known active allergies Medications metFORMIN XR (Glucophage-XR) 500 MG 24 hr tabletIndications :Encounter for weight management Take 1 tablet (500 mg) by mouth in the evening. Take with meals Do not crush, chew, or split. 30 tablet 11 01/06/2024 01/01/20 25 Active MV & Min w/FA-DHA ( Gummies) 0.18-25 MG chewable tabletIndications :Encounter for supervision of normal first in first trimester ([facility]) Chew 1 tablet Daily 30 tablet 11 04/07/2024 Active magnesium oxide (Mag-Ox) 400 MG tabletIndications : size inconsistent with dates ([facility]),Nonintr actable headache, unspecified chronicity pattern, unspecified headache type Take 1 tablet (400 mg) by mouth Daily 30 tablet 6 09/01/2024 03/30/19 26 Active Active Problems Problem Noted Date Diagnosed Date Vaginal bleeding 02/16/2024 Estimated Date of Delivery Comme nts Yes 11/21/2024 Based on Ultraso und Encounters Date Type Department Care Team Description 09/26/2024 2:50 PM EDT Routine [facility] [address] [place] [address] [place] [phone] Newton Carter DO Third trimester ([facility]); 32 weeks gestation of ([facility]) 09/26/2024 Bamboo flowsheet [facility] [address] [place] [address] Newton Carter DO 09/14/2024 3:40 PM EDT Routine [facility] [place] [address] Newton Carter, Third trimester ([facility]); 30 weeks gestation of ([facility]) 09/14/2024 3:00 PM EDT Ancillary Procedure [place] [address] size inconsistent with dates ([facility]); Nonintractable headache, unspecified chronicity pattern, unspecified headache type 09/03/2024 Clinisync Result Encounter [facility] External Department Unsolicited Provider, Generic External Data 09/01/2024 2:30 PM EDT Routine [facility] [address] [place] [address] Sarah Penn PA Third trimester ([facility]); 28 weeks gestation of ([facility]); size inconsistent with dates ([facility]); Nonintractable headache, unspecified chronicity pattern, unspecified headache type 09/01/2024 Bamboo flowsheet [facility] [address] [place] [address] Sarah Penn PA 08/29/2024 Telephone [facility] [address] [place] [address] Cayla Mayorga MA 08/25/2024 Clinisync Result Encounter [facility] External Department Unsolicited Provider, Generic External Data 08/17/2024 Abstract [facility] [address] [place] [address] Beverly Jalloh MA 08/11/2024 10:40 AM EDT Routine [facility] [address] [facility] [place] [address] Newton Carter, DO Second trimester ([facility]); 25 weeks gestation of ([facility]); Diabetes mellitus screening 08/11/2024 Bamboo flowsheet [facility] [address] [facility] [place] [address] Newton Carter, 08/02/2024 Abstract [facility] [address] [place] [address] Newton Carter, 08/02/2024 Clinisync Result Encounter NOMS External Department Unsolicited Provider, Generic External Data 07/20/2024 9:30 AM EDT Routine [facility] [address] [place] [address] Trudy Castellanos NP Second trimester ([facility]); 22 weeks gestation of ([facility]); Encounter for screening for cervical length ([facility]) 07/20/2024 Bamboo flowsheet [facility] [address] [place] [address] Trudy Castellanos NP from Last 3 Months Family History Medical [...] Recorded Patient Health Questionnaire-2 Score 0 04/29/2023 [place] Depression Scale Answer Date Recorded [place] Depression Scale Total 0 04/13/2023 The thought [...] oz) 09/26/2024 2:58 PM E DT Height 149.9 cm (4' 11 ) 01/06/2024 10:50 AM EDT Body Mass Index 34.29 01/06/2024 10:50 AM EDT Plan of Treatment Upcoming Encounters Date Type Department Care Team (Late st Contact Info) Description 10/10/2024 10:50 AM EDT Routine [facility] [address] [facility] [place] [address] Sarah Penn PA [address] [facility] [place] [address] Health Maintenance Due Date Last Done Comments Influenza Vaccine (#1) 2024 Procedures Procedure Name Priority Date/Time Associated Diagnosis Comments POCT URINALYSIS DIPSTICK Routine 09/26/2024 3:03 PM EDT Third trimester ([facility]) POCT URINALYSIS DIPSTICK Routine 09/14/2024 3:52 PM EDT Third trimester ([facility]) 30 weeks gestation of ([facility]) US OB FOLLOW UP TRANSABDOMINAL APPROACH Routine 09/14/2024 3:24 PM EDT size inconsistent with dates ([facility]) Nonintractable headache, unspecified chronicity pattern, unspecified headache type GLUCOSE TOLERANCE 3 HOUR Routine 09/03/2024 7:23 AM EDT POCT URINALYSIS DIPSTICK Routine 09/01/2024 2:33 PM EDT Third trimester ([facility]) ALL CBC WITH AUTO DIFF Routine 9:20 AM EDT GLUCOSE 1 HOUR Routine 08/25/2024 9:20 AM EDT POCT URINALYSIS DIPSTICK Routine 08/11/2024 11:06 AM EDT Diabetes mellitus screening US OB CERVICAL LENGTH 08/02/2024 6:58 PM EDT POCT URINALYSIS DIPSTICK Routine 07/20/2024 9:35 AM EDT Second trimester ([facility]) from Last 3 Months Results * (ABNORMAL) POCT urinalysis dipstick manually resulted (09/26/2024 3:03 PM EDT) Only the most recent of5 resultswithin the time period is included. Color, [...] Positive Urine 09/26/2024 3:03 PM EDT Newton Carter DO POINT OF CARE TEST ENTER/EDIT OR DERABLES Final Result * US OB follow up transabdominal approach (09/14/2024 3:24 PM EDT) Anatomical Region Laterality Modality Body Ultrasound 09/15/2024 2:17 PM EDT Impressions 09/15/2024 3:06 PM EDT Single, live intrauterine , current sonographic age of 31 weeks and 1 days, with an estimated date of delivery of November 15, 2024. * Estimated Weight (g) by Percentile is based upon an accurate estimated age based on last menstrual period. TRANSCRIBED BY: ELECTRONICALLY SIGNED BY: Pedro Luis Noonan MD Narrative 09/15/2024 3:06 PM EDT FINDINGS: A single, live intrauterine is present with normal cardiac rate of 153 beats per minute. Normal activity and amniotic fluid volume. Amniotic fluid index is 11.5 cm. (Largest fluid pocket 4.0 cm) Morphology is grossly normal. The placenta is anterior, not associated with the cervical os. The current sonographic age is 31 weeks and1 days, based on the following measurements: BPD 7.6 cm ( 30weeks,4 days) Head Circumference 28.8cm (31 weeks,5 days) Abdominal Circumference 28.0cm ( 32weeks, 0 days) Femur Length 5.8cm ( 30 weeks, 3 days) Presentation Breech Weight (g) by Percentile 76.1% * These measurements result in an estimated date of delivery of November 15, 2024. The current estimated weight is 1758 +/- 264 grams ( 3 pound, 14 ounces). Procedure Note Pedro Luis Noonan MD - 09/15/2024 FINDINGS: A single, live intrauterine is present with normal cardiacrate of 153 beats per minute. Normal activity and amniotic fluidvolume. Amniotic fluid index is 11.5 cm. (Largest fluid pocket 4.0 cm)Morphology is grossly normal. The placenta is anterior, not associatedwith the cervical os. The current sonographic age is 31 weeks and1 days,based on the following measurements: BPD 7.6 cm ( 30weeks,4 days) Head Circumference 28.8cm (31 weeks,5 days) Abdominal Circumference 28.0cm ( 32weeks, 0 days) Femur Length 5.8cm ( 30 weeks, 3 days) Presentation Breech Weight (g) by Percentile 76.1% * These measurements result in an estimated date of delivery of 2024. The current estimated weight is 1758 +/- 264 grams (3 pound, 14 ounces). IMPRESSION: Single, live intrauterine , current sonographic age of 31 weeksand 1 days, with an estimated date of delivery of November 15, 2024. * Estimated Weight (g) by Percentile is based upon an accurateestimated age based on last menstrual period. TRANSCRIBED BY: ELECTRONICALLY SIGNED BY: Pedro Luis Noonan MD us Sarah NGUYEN IMG OB US PROCEDURES Final Resul t * (ABNORMAL) GLUCOSE TOLERANCE 3 HOUR (09/03/2024 7:23 AM EDT) GLUCOSE TOLERANCE 3 HOUR (H) mg/dL [facility] Comment: GLU FAST 96H (<95) Col: 09/03/24 0723 GLU 1HR 160 (<180) Col: 09/03/24 0845 GLU 2HR 109 (<155) Col: 09/03/24 0943 GLU 3HR 113 (<140) Col: 09/03/24 1045 09/03/2024 7:23 AM EDT 09/03/2024 7:26 AM EDT Narrative [facility] - 09/03/2024 12:19 PM EDT us Newton Raul DO LAB BLOOD ORDERABLES Final Resul t [facility] * (ABNORMAL) GLUCOSE 1 HOUR (08/25/2024 9:20 AM EDT) GLUCOSE 1 HOUR 139(H) <130 mg/dL [facility] 08/25/2024 9:20 AM EDT 08/25/2024 9:22 AM EDT Narrative [facility] - 08/25/2024 9:52 AM EDT us Newton Carter DO LAB BLOOD ORDERABLES Final Resul t [facility] * (ABNORMAL) ALL CBC WITH AUTO DIFF (08/25/2024 9:20 AM EDT) [facility] WBC 9.5 4.0 - 11.0 10 3/uL [facility] RBC 3.92(L) 4.20 - 5.40 10 6/uL [facility] HGB 10.6(L) 12.0 - 16.0 g/dL [facility] HCT 31.8(L) 36.0 - 48.0 % [facility] MCV 81.1 81.0 - 99.0 fL [facility] MCH 27.0 26.7 - 34.0 pg TBH [facility] MCHC 33.3 29.9 - 35.2 g/dL [facility] RDW 13.6 11.0 - 15.0 % [facility] PLT 308 150 - 450 10 3/uL [facility] MPV 9.4(L) 9.5 - 13.5 fL [facility] NEUTROPHILS PERCENT AUTO 75.5(H) 43.0 - 75.0 % [facility] LYMPHOCYTES PERCENT AUTO 17.6(L) 20.5 - 60.0 % [facility] MONOCYTES PERCENT AUTO 5.7 1.7 - 12.0 % [facility] EO % 0.5(L) 0.9 - 7.0 % [facility] BASOPHILS PERCENT AUTO 0.2 0.2 - 2.0 % [facility] IMMATURE GRANULOCYTES PCT AUTO 0.5 0.0 - 0.5 % [facility] NEUTROPHILS ABSOLUTE AUTO 7.2(H) 1.4 - 6.5 10 3/uL [facility] LYMPHOCYTES ABSOLUTE AUTO 1.7 1.2 - 3.8 10 3/uL [facility] MONOCYTES ABSOLUTE AUTO 0.5 0.3 - 0.8 10 3/uL [facility] TBH EO # 0.1 0.0 - 0.7 10 3/uL [facility] BASOPHILS ABSOLUTE AUTO 0.0 0.0 - 0.1 10 3/uL [facility] IMMATURE GRANULOCYTES ABS AUTO 0.05(H) 0.00 - 0.03 10 3/uL [facility] 08/25/2024 9:20 AM EDT 08/25/2024 9:22 AM EDT Narrative [facility] - 08/25/2024 10:16 AM EDT us Generic External Data Provider [facility] F inal Result [facility] * US OB CERVICAL LENGTH (08/02/2024 6:58 PM EDT) Anatomical Region Laterality Modality Other 08/02/2024 6:58 PM EDT Narrative 08/02/2024 7:00 [place] [address] Ultrasound Report Signed Patient: SARAH ARCE MR#: [id number] : 2000 Acct:[id number] Age/Sex: 24 / F ADM Date: 08/02/24 Loc: US Attending Dr: Trudy Castellanos Ordering Physician: Trudy Castellanos Date of Service: 08/02/24 Procedure(s): US OB cervical length Accession Number(s): [id number] cc: Alina Schmitz WIRE CHARGER; Trudy Castellanos [place] [address] Patient Name: SARAH ARCE MRN: [facility]:[id number] date: 2000 Sex: F Assigned Patient Location: US Current Patient Location: US Accession/Order Number: [id number] Exam Date: 08/02/2024 18:52 Report Date: 08/02/2024 [...] Daniels M.D. 08/02/2024 6:58 PM [facility]ictation [facility] Electron[facility] authenticated by: [id number] Y Date: 08/02/2024 18:58 Dictated By: Roel Daniels M.D. Signed By: 08/02/241899 DD/ 57 TD/TT: Services Executive: Procedure Note Radiology, Radiologist, MD - 08/02/2024 [place] [address] Ultrasound Report Signed Patient: SARAH ARCE GMR#: [id number] : 2000Acct:[id number] Age/Sex: 24 FADM Date: 08/02/24 Loc: US Attending Dr: Trudy Castellanos Ordering Physician: Trudy Castellanos Date of Service: 08/02/24 Procedure(s): US OB cervical length Accession Number(s): [id number] cc: Alina Schmitz WIRE CHARGER; Trudy Castellanos The [place] [id number] Patient Name: SARAH ARCE MRN: [facility]:[id number] date: 2000 Sex: F Assigned Patient Location: US Current Patient Location: US Accession/Order Number: [id number] Exam Date: 08/02/2024 18:52 Report Date: 08/02/2024 [...] Daniels M.D. 08/02/2024 6:58 PM Dictation [facility] Electronically authenticated by: [id number] Y Date: 8:58 Dictated By: Roel Daniels M.D. Signed By:08/02/24 1900 DD/ 1858 TD/TT: Services Executive: [facility] [place] [facility] Final Result from Last 3 Months Insurance Care Teams Pattern Perforating Machine Operator Relationship Specialty Start Date End Date [facility], Angel, MD [address] [place] [address] PCP - General Family Medicine 01/26/24 Alina Schmitz NP [address] [place] [address] Nurse Practitioner Family Medicine 01/26/24
--- OUTSIDE RECORDS SUMMARY | 2024-10-09 16:39 | XMS_ITS | Encounter Summary ---
Author Organization [facility] Address [address] [place] [address] Care Team Providers Care Muffler Hand Name Role Phone Unallocated, Noms Provider Primary Care Provi kristopher Angel Seay MD Primary Care Provider Alina Schmitz NP Unavailable [phone] Encounter Details Date Type Department Care Team (Late st Contact Info) Description 10/23/2023 Clinisync Result Encounter [facility] External Department Unsolicited Partha Carter, DO [address] [place] [address] Social History Tobacco Use Types Packs/Day Years [...] Recorded Patient Health Questionnaire-2 Score 0 04/29/2023 [place] Depression Scale Answer Date Recorded [place] Depression Scale Total 0 04/13/2023 The thought [...] AM EDT Routine [facility] [address] [facility] [place] [address] Sarah Penn PA [address] [facility] [address] [place], [facility]11 documented as of this encounter Procedures Procedure Name Priority Date/Time Associated Diagnosis Comments US OB TRANSVAGINAL 10/23/2023 10 :54 AM EDT [facility] PREG QUANT HCG Routine 10/23/2023 10 :23 AM EDT documented in this encounter Results * US OB TRANSVAGINAL (10/23/2023 10:54 AM EDT) Anatomical Region Laterality Modality Other 10/23/2023 10:5 4 AM EDT Narrative 10/23/2023 10:57 AM EDT The [address] [address] Ultrasound Report Signed Patient: Sarah EVANS MR#: [id number] : 2000 Acct:[id number] Age/Sex: 23 / F ADM Date: 10/23/23 Loc: NOMS Attending Dr: Partha Carter D.O. Ordering Physician: Partha Carter D.O. Date of Service: 10/23/23 Procedure(s): US OB transvaginal Accession Number(s): [id number] cc: Partha Carter D.O.; Physician,Non-Staff M.Damian The [address] [address] Patient Name: SARAH EVANS MRN: [facility]:[id number] date: 2000 Sex: F Assigned Patient Location: [facility] Current Patient Location: [facility] Accession/Order Number: [id number] Exam Date: 10/23/2023 09:13 Report Date: 10/23/2023 [...] Signed By: 10/23/23 1057 DD/ 1054 TD/TT: Telephone Operator Receptionist: Procedure Note Radiology, Radiologist, MD - 10/23/2023 [place] [address] Ultrasound Report Signed Patient: Sarah EVANS GMR#: [id number] : 2000Acct:[id number] Age/Sex: 23 / FADM Date: 10/23/23 Loc: [facility] Attending Dr: Partha Carter D.O. Ordering Physician: Partha Carter D.O. Date of Service: 10/23/23 Procedure(s): US OB transvaginal Accession Number(s): [id number] cc: Partha Carter D.O.; Physician,Non-Staff Sherie The [place] [id number] Patient Name: SARAH EVANS MRN: [facility]:[id number] date: 2000 Sex: F Assigned [facility] Accession/Order Number: [id number] Exam Date: 10/23/2023 09:13 Report Date: 10/23/2023 [...] M.D. Signed By:10/23/23 1057 DD/ 1054 TD/TT: Telephone Operator Receptionist: us Partha Carter DO [facility] Final Result * [facility] PREG QUANT HCG (10/23/2023 10:23 AM EDT) HCG QUANTITATIVE 29,297 mIU/mL [facility] Comment: 5-50 0.2-1 WEEK 50-500 1-2 WEEKS 100-5,000 2-3 WEEKS 500-10,000 3-4 WEEKS 1,000-50,000 4-5 WEEKS 10,000-100,000 5-6 WEEKS 15,000-200,000 6-8 WEEKS 10,000-100,000 2-3 MONTHS 10/23/2023 10:2 3 AM EDT 10/23/2023 10:24 AM EDT Narrative [facility] - 10/23/2023 12:24 PM EDT us Partha Raul DO [facility] Final Result [facility] documented in this encounter Visit Diagnoses Not on filedocumented in this encounter Care Teams Muffler Hand Relationship Specialty Start Date End Date Unallocated, Noms Provider, [address] [place] [address] PCP - General Family Medicine 04/13/23 01/25/24 Angel Seay MD [address] [place] [address] PCP - General Family Medicine 01/26/24 Alina Schmitz NP [address] [place] [address] Nurse Practitioner Family Medicine 01/26/24 documented as of this encounter
--- OUTSIDE RECORDS SUMMARY | 2024-10-09 16:39 | XMS_ITS | Encounter Summary ---
Author Organization [facility] Address [address] [place] [address] Care Team Providers Care Director [employer] Name Role Phone Angel Seay MD Primary Care Provider [phone] Alina Schmitz NP Unavailable [phone] Encounter Details Date Type Department Care Team (Late st Contact Info) Description 05/20/2024 Abstract [facility] [address] [facility] [place] [address] Newton Carter DO [address] [facility] [place] [address] Social History Tobacco Use Types Packs/Day Years [...] Recorded Patient Health Questionnaire-2 Score 0 04/29/2023 [place] Depression Scale Answer Date Recorded [place] Depression Scale Total 0 04/13/2023 The thought [...] AM EDT Routine [facility] [address] [facility] [place] [address] Sarah Penn PA [address] [facility] [place] [address] documented as of this encounter Visit Diagnoses Not on filedocumented in this encounter Care Teams Director [employer] Relationship Specialty Start Date End Date Angel Seay MD [address] [place] [address] PCP - General Family Medicine 01/26/24 Alina Schmitz NP [address] [place] [address] Nurse Practitioner Family Medicine 01/26/24 documented as of this encounter
--- OUTSIDE RECORDS SUMMARY | 2024-10-09 16:39 | XMS_ITS | Encounter Summary ---
Author Organization [facility] Address [address] [place] [address] Care Team Providers Care Mold Puller Name Role Phone Angel Seay MD Primary Care Provider Alina Schmitz NP Unavailable [phone] Encounter Details Date Type Department Care Team (Late st Contact Info) Description 09/26/2024 Bamboo flowsheet [facility] [address] [place] [address] Newton Carter DO [address], [facility] Social History Tobacco Use Types Packs/Day Years [...] Recorded Patient Health Questionnaire-2 Score 0 04/29/2023 [place] Depression Scale Answer Date Recorded [place] Depression Scale Total 0 04/13/2023 The thought [...] AM EDT Routine [facility]Z [address] [facility] [place] [address] Sarah Penn PA [address] [place] [address] documented as of this encounter Visit Diagnoses Not on filedocumented in this encounter Care Teams Mold Puller Relationship Specialty Start Date End Date Angel Seay MD [address] [place] [address] PCP - General Family Medicine 01/26/24 Alina Schmitz NP [address] [place] [address] Nurse Practitioner Family Medicine 01/26/24 documented as of this encounter
--- OUTSIDE RECORDS SUMMARY | 2024-10-09 16:39 | XMS_ITS | Encounter Summary ---
Author Organization [facility] Address [address] [place] [address] Care Team Providers Care Money Examiner Name Role Phone Unallocated, Jodee Provider Primary Care Provi kristopher Angel Seay MD Primary Care Provider [phone] Alina Schmitz NP Unavailable [phone] Encounter Details Date Type Department Care Team (Late st Contact Info) Description 11/16/2023 Abstract [facility] [address] [facility] [place] [address] Newton Carter DO [address] [facility] [address] [place], [place] [address] Social History Tobacco Use Types Packs/Day Years [...] Recorded Patient Health Questionnaire-2 Score 0 04/29/2023 [place] Depression Scale Answer Date Recorded [place] Depression Scale Total 0 04/13/2023 The thought [...] AM EDT Routine [facility] [address] [facility] [place] [address] Sarah Penn PA [address] [place] [address] documented as of this encounter Visit Diagnoses Not on filedocumented in this encounter Care Teams Money Examiner Relationship Specialty Start Date End Date Unallocated, Noms MD Jean Claude [address] [place] [address] PCP - General Family Medicine 04/13/23 01/25/24 Angel Seay MD [address] [place] [address] PCP - General Family Medicine 01/26/24 Alina Schmitz NP [address] [place] [address] Nurse Practitioner Family Medicine 01/26/24 documented as of this encounter
--- OUTSIDE RECORDS SUMMARY | 2024-10-09 16:39 | XMS_ITS | Encounter Summary ---
Author Organization [facility] Address [address] [place] [address] Care Team Providers Care Semiautomatic Taper Operator Name Role Phone Angel Seay MD Primary Care Provider [phone] Alina Schmitz NP Unavailable [phone] Encounter Details Date Type Department Care Team (Late st Contact Info) Description 08/17/2024 Abstract [facility] RODRIGUEZ [address] [place] [address] [place] [address] Beverly Jalloh [place] Social History Tobacco Use Types Packs/Day Years [...] Recorded Patient Health Questionnaire-2 Score 0 04/29/2023 [place] Depression Scale Answer Date Recorded [place] Depression Scale Total 0 04/13/2023 The thought [...] AM EDT Routine [facility] RODRIGUEZ [address] [facility] [place] [address] Sarah Penn PA [address] [place] [address] documented as of this encounter Visit Diagnoses Not on filedocumented in this encounter Care Teams Semiautomatic Taper Operator Relationship Specialty Start Date End Date Angel Seay MD [address] [place] [address] PCP - General Family Medicine 01/26/24 Alina Schmitz NP [address] [place] [address] Nurse Practitioner Family Medicine 01/26/24 documented as of this encounter
--- OUTSIDE RECORDS SUMMARY | 2024-10-09 16:39 | XMS_ITS | CCD ---
Author Organization [facility] Care Team Providers Care Snow Shoveler Name Role Phone AICHHOLZ, GAME FARM HELPER ALINA Primary Care Unavailable KOFI CURRIE Consulting Unavailable KOFI CURRIE Admitting Unavailable KOFI CURRIE Attending Unavailable AICHHOLZ, GAME FARM HELPER ALINA Primary Care Unavailable QUIQUE, DR KECIA Devi Consulting Unavailable KOFI CURRIE Attending Unavailable KOFI CURRIE Admitting Unavailable KOFI CURRIE Consulting Unavailable KOFI CURREI Attending Unavailable MISC, DOCTOR Referring Unavailable AICHHOLZ, GAME FARM HELPER ALINA Primary Care Unavailable KOFI CURRIE Consulting Unavailable KOFI CURRIE Admitting Unavailable KARASIK, DR STRONG Attending Unavailable AICHHOLZ, GAME FARM HELPER ALINA Primary Care Unavailable KARASIK, DR STRONG Consulting Unavailable KARASIK, DR STRONG Admitting Unavailable KARASIK, DR STRONG Procedure Practitioner Unava ilable KOFI CURRIE Consulting Unavailable KOFI CURRIE Attending Unavailable AICHHOLZ, GAME FARM HELPER ALINA Primary Care Unavailable KOFI CURRIE Admitting Unavailable AICHHOLZ, GAME FARM HELPER ALINA Primary Care Unavailable KARASIK, DR STRONG Consulting Unavailable KARASIK, DR STRONG Admitting Unavailable KARASIK, DR STRONG Attending Unavailable KOFI CURRIE Consulting Unavailable KOFI CURRIE Attending Unavailable AICHHOLZ, GAME FARM HELPER ALINA Primary Care Unavailable KOFI CURRIE Admitting Unavailable AICHHOLZ, GAME FARM HELPER ALINA Primary Care Unavailable KOFI CURRIE Consulting Unavailable KOFI CURRIE Admitting Unavailable KOFI CURRIE Attending Unavailable AICHHOLZ, GAME FARM HELPER ALINA Admitting Unavailable AICHHOLZ, GAME FARM HELPER ALINA Attending Unavailable AICHHOLZ, GAME FARM HELPER ALINA Consulting Unavailable AICHHOLZ, GAME FARM HELPER ALINA Primary Care Unavailable Unavailable Primary Care Provider Unavailabl e Unallocated, Noms Provider Primary Care Provider MD Dawn Huitron Attending Provider [phone] NO FAMILY, PHYSICIAN Primary Care Provider Unava [...] FAMILY, PHYSICIAN Primary Care Unavailable Unallocated MD, Janets Provider Primary Care Provi kristopher Unallocated , Janets Provider Primary Care Provi kristopher Angel Seay MD Primary Care Provider Nadir PRODUCTION MINER, Alina Unavailable NEWTON CARTER Attending Unavailable SARAH KERN Attending Unavailable YRIS CASTELLANOS Attending Unavailable NEWTON CARTER Attending Unavailable SARAH KERN Attending Unavailable SARAH KERN Attending Unavailable SARAH KERN Referring Unavailable NEWTON CARTER Attending Unavailable NEWTON CARTER Attending Unavailable Medications Current Medications Medication Drug [...] 1:00am magnesium oxide 400 mg oral tablet (6 sources) Start: 09-01-2024 End: 03-30-2025 take 1 tablet by mouth once daily magnesium oxide (Mag-Ox) 400 MG tablet Indications: size inconsistent with dates ([facility]) , Nonintractable headache, unspecified chronicity pattern, unspecified [...] supervision of normal first in first trimester ([facility]) Chew 1 tablet Daily 30 tablet [...] [28 weeks gestation of ] 09-01-2024 Episodic Residual codes; unclassified (2 sources) Gestation period, 30 weeks; Translations: [30 weeks gestation of ] 09-14-2024 Episodic Unclassified (1 source) CONTACT W/AND (SUSP) [...] Test Name Value Interpretation Reference Range Facility US OB FOLLOW UP TRANSABDOMIN AL APPROACHon 09-14-2024 OB FOLLOW UP TRANSABDOMINAL APPROACH FINDINGS: A single, live intrauterine is present [...] 264 grams ( 3 pound, 14 ounces). IMPRESSION: Single, live intrauterine , current sonographic age of 31 weeks and 1 days, with an estimated date of delivery of November 15, 2024. * Estimated Weight (g) by Percentile is based upon an accurate estimated age based on last menstrual period. TRANSCRIBED BY: ELECTRONICALLY SIGNED BY: Pedro Luis Noonan MD Normal Not Available Comment on above: Order Comment: US OB SCAN FOR GROWTH Estimated Date of Delivery: 11/21/24 Gestational Age as of 09/01/2024: 28w3d Urinalysis macro (dipstick) panel (U)on 09-14-2024 Bilirubin, UA Negative Negative - 4(70) +++ mg/dL [facility] Blood, UA Negative Negative - 50 Sherman/mcL [facility] Clarity, UA Clear [facility] Color, UA Yellow [facility] Glucose, UA Negative Negative - 2000(110) ++++ mg/dL [facility] Interpretation and review of laboratory results Normal [facility] Ketones, UA Positive Negative - 160(16) ++++ mg/dL [facility] Leukocytes, UA Negative Negative - 500+++ Jackie/mcL [facility] Nitrite, UA Negative Negative - Positive [facility] pH, UA 6 5 - 9 [facility] Protein, UA Positive Negative - 2000(20) ++++ mg/dL [facility] Spec Grav, UA 1.02 1 - 1.03 [facility] Urobilinogen, UA 1.0 0.2 - 12 mg/dL [facility] GLUCOSE TOLERANCE 3 HOURon 0 09-03-2024 GLUCOSE TOLERANCE 3 HOUR High mg/dL [facility] Comment on above: GLU FAST 96H (<95) C ol: 09/03/24 0723 GLU 1HR 160 (<180) Col: 09/03/24 0845 GLU 2HR 109 (<155) Col: 09/03/24 0943 GLU 3HR 113 (<140) Col: 09/03/24 1045 Interpretation and review of laboratory results Abnormal [facility] Urinalysis macro (dipstick) panel (U)on 09-01-2024 Bilirubin, UA Negative Negative - 4(70) +++ mg/dL [facility] Blood, UA Negative Negative - 50 Sherman/mcL [facility] Clarity, UA Clear [facility] Color, UA Yellow [facility] Glucose, UA Negative Negative - 1999(110) ++++ mg/dL [facility] Interpretation and review of laboratory results Abnormal [facility] Ketones, UA Negative Negative - 160(16) ++++ mg/dL [facility] Leukocytes, UA Positive Negative - 500+++ Jackie/mcL [facility] Comment on above: small Nitrite, UA Negative Negative - Positive [facility] pH, UA 7 5 - 9 [facility] Protein, UA Negative Negative - 1999(20) ++++ mg/dL [facility] Spec Grav, UA 1.02 1 - 1.03 [facility] Urobilinogen, UA 0.2 0.2 - 12 mg/dL [facility] GLUCOSE 1 HOURon 08-25-2024 Glucose [Mass/Vol] 139 mg/dL High NINF - 13 0 mg/dL [facility] Interpretation and review of laboratory results Abnormal [facility] Urinalysis macro (dipstick) panel (U)on 08-11-2024 Bilirubin, UA Negative Negative - 4(70) +++ mg/dL [facility] Blood, UA Negative Negative - 50 Sherman/mcL [facility] Clarity, UA Clear [facility] Color, UA Yellow [facility] Glucose, UA Negative Negative - 1999(110) ++++ mg/dL [facility] Interpretation and review of laboratory results Normal [facility] Ketones, UA Negative Negative - 160(16) ++++ mg/dL [facility] Leukocytes, UA Positive Negative - 500+++ Jackie/mcL [facility] Comment on above: SMALL Nitrite, UA Negative Negative - Positive [facility] pH, UA 7 5 - 9 [facility] Protein, UA Negative Negative - 1999(20) ++++ mg/dL [facility] Spec Grav, UA 1.02 1 - 1.03 [facility] Urobilinogen, UA 0.2 0.2 - 12 mg/dL [facility] US OB CERVICAL LENGTHon 07-[address] [address] Ultrasound Report Signed Patient: SARAH ARCE MR#: [id number] : 2000 Acct:[id number] Age/Sex: 24 / F ADM Date: 08/02/24 Loc: US Attending Dr: Yris Castellanos Ordering Physician: Yris Castellanos Date of Service: 08/02/24 Procedure(s): US OB cervical length Accession Number(s): [id number] cc: Alina Schmitz PRODUCTION MINER; Yris Castellanos [place] [address] Patient Name: SARAH ARCE MRN: [id number] date: 2000 Sex: F Assigned Patient Location: US Current Patient Location: Accession/Order Number: [id number] Exam Date: 08/02/2024 18:52 Report Date: 08/02/2024 [...] Daniels M.D. 08/02/2024 6:58 PM Dictation Location: [place] [address] Electronically authenticated by: [id number] Y Date: 08/02/2024 18:58 Dictated By: Roel Daniels M.D. Signed By: 08/02/241899 DD/ 57 TD/TT: Egg Smeller: [facility] Radiology, Radiologist, - 08/02/2024 [place] [address] Ultrasound Report Signed Patient: SARAH ARCE MR#: [id number] : 2000 Acct:[id number] Age/Sex: 24 / F ADM Date: 08/02/24 Loc: US Attending Dr: Yris Castellanos Ordering Physician: Yris Castellanos Date of Service: 08/02/24 Procedure(s): US OB cervical length Accession Number(s): [id number] cc: Alina Schmitz PRODUCTION MINER; Yris Castellanos [place] [address] Patient Name: SARAH ARCE MRN: [facility]:[id number] date: 2000 Sex: F Assigned Patient Location: Current Patient Location: US Accession/Order Number: [id number] Exam Date: 08/02/2024 18:52 Report Date: 08/02/2024 [...] Daniels M.D. 08/02/2024 6:58 PM Dictation Location: [place] [address] Electronically authenticated by: [id number] Y Date: 08/02/2024 18:58 Dictated By: Roel Daniels M.D. Signed By: 08/02/241899 DD/ 57 TD/TT: Egg Smeller: [facility] Radiology Study observation (narrative) [facility] US OB CERVICAL LENGTHOrdered By: Radiologist Radiology on 08-02-2024 [facility] Work Phone: Urinalysis macro (dipstick) panel (U)on 07-20-2024 Bilirubin, UA Negative Negative - 4(70) +++ mg/dL [facility] Blood, UA Negative Negative - 50 Sherman/mcL [facility] Clarity, UA Clear [facility] Color, UA Yellow [facility] Glucose, UA Negative Negative - 2000(110) ++++ mg/dL [facility] Interpretation and review of laboratory results Normal [facility] Ketones, UA Negative Negative - 160(16) ++++ mg/dL [facility] Leukocytes, UA Positive Negative - 500+++ Jackie/mcL [facility] Comment on above: small Nitrite, UA Negative Negative - Positive [facility] pH, UA 7 5 - 9 [facility] Protein, UA Positive Negative - 2000(20) ++++ mg/dL [facility] Comment on above: 30 Spec Grav, UA 1.025 1 - 1.03 [facility] Urobilinogen, UA 0.2 0.2 - 12 mg/dL [facility] No Panel InformationOrdered By: Radiologist Radiology on 07-06-2024 [facility] Work Phone: No Panel Informationon 07-06 Radiology Study observation (narrative) [facility] US OB ANATOMYon 07-06-2024 [place] [address] Ultrasound Report Signed Patient: SARAH ARCE MR#: [id number] : 2000 Acct:[id number] Age/Sex: 24 / F ADM Date: 07/05/24 Loc: US Attending Dr: Sarah Kern Ordering Physician: Sarah Kern Date of Service: 07/05/24 Procedure(s): US OB anatomy Accession Number(s): [id number] cc: Alina Schmitz NP; Sarah Isamar The [place] [phone] Patient Name: SARAH ARCE MRN: [facility]:[id number] date: 2000 Sex: F Assigned Patient Location: US Current Patient Location: Accession/Order Number: [id number] Exam Date: 07/06/2024 08:58 Report Date: 07/06/2024 [...] Jr., D.O. 07/06/2024 9:06 AM Dictation Location: [place] [address] Electronically authenticated by: [id number] Y Date: 07/06/2024 09:06 Dictated By: Pedro Luis Jack M.D. Signed By: 07/06/24908 DD/ 5 TD/TT: Egg Smeller: [facility] Radiology, Radiologist, - 07/06/[address] [address] Ultrasound Report Signed Patient: SARAH ARCE MR#: [id number] : 2000 Acct:[id number] Age/Sex: 24 / F ADM Date: 07/05/24 Loc: US Attending Dr: Sarah Kern Ordering Physician: Sarah Kern Date of Service: 07/05/24 Procedure(s): US OB anatomy Accession Number(s): [id number] cc: Alina Schmitz NP; Sarah Kern [place] [id number] Patient Name: SARAH ARCE MRN: [id number] date: 2000 Sex: F Assigned Patient Location: US Current Patient Location: Accession/Order Number: [id number] Exam Date: 07/06/2024 08:58 Report Date: 07/06/2024 [...] Jr., D.O. 07/06/2024 9:06 AM Dictation Location: [email or web address] Electronically authenticated by: [id number] Y Date: 07/06/2024 09:06 Dictated By: Pedro Luis Jack M.D. Signed By: 04/908 DD/ 5 TD/TT: Egg Smeller: [facility] OB CERVICAL LENGTHon 06-[address] [address] Ultrasound Report Signed Patient: SARAH ARCE MR#: [id number] : 2000 Acct:[id number] Age/Sex: 24 / F ADM Date: 07/05/24 Loc: US Attending Dr: Sarah Kern Ordering Physician: Sarah Kern Date of Service: 07/05/24 Procedure(s): US OB cervical length Accession Number(s): [id number] cc: Alina Schmitz PRODUCTION MINER; Sarah Kern [address] [address] Patient Name: SARAH ARCE MRN: [id number] date: 2000 Sex: F Assigned Patient Location: US Current Patient Location: Accession/Order Number: [id number] Exam Date: 07/06/2024 08:58 Report Date: 07/06/2024 09:06 At the request of: SARHA KERN Procedure: US OB cervical length Anatomy [...] Jr., D.O. 07/06/2024 9:06 AM Dictation Location: [place] [address] Electronically authenticated by: [id number] Y Date: 07/06/2024 09:06 Dictated By: Pedro Luis Jack M.D. Signed By: 07/06/24908 DD/ 5 TD/TT: Egg Smeller: [facility] Radiology, Radiologist, - 07/06/2024 [place] [address] Ultrasound Report Signed Patient: SARAH ARCE MR#: [id number] : 2000 Acct:[id number] Age/Sex: 24 / F ADM Date: 07/05/24 Loc: US Attending Dr: Sarah Kern Ordering Physician: Sarah Kern Date of Service: 07/05/24 Procedure(s): US OB cervical length Accession Number(s): [id number] cc: Alina Schmitz NP; Sarah Kern The [address] [address] Patient Name: SARAH ARCE MRN: [facility]:[id number] date: 2000 Sex: F Assigned Patient Location: Current Patient Location: Accession/Order Number: [id number] Exam Date: 07/06/2024 08:58 Report Date: 07/06/2024 [...] Jr., D.O. 07/06/2024 9:06 AM Dictation Location: [email or web address] Electronically authenticated by: [id number] Y Date: 07/06/2024 09:06 Dictated By: Pedro Luis Jack M.D. Signed By: 07/06/24908 DD/ 5 TD/TT: Egg Smeller: [facility] IGP,APTIMA HPV,AGE GDLNon AGE GDLN ACOG TESTING Note . [facility] Comment on above: TESTS RESULT FLAG UN ITS REF RANGE LAB Clinician Provided Cytology Information Source.............Cervix Other.............. No. of containers..01 ThinPrep Vial Age Algo ACOG Shila... -06 04 FLAG LEGEND: L-Low Normal,H-High Normal,LL-Alert Low,HH-Alert High <-Panic Low,>-Panic High,A-Abnormal,AA-Critical Abnormal Performed at: 01 =G [address] [address] Sarai Durant MD, IGP, RFX APTIMA HPV ASCU Note . [facility] Comment on above: TESTS RESULT FLAG UN ITS REF RANGE LAB DIAGNOSIS: 02 NEGATIVE FOR INTRAEPITHELIAL LESION OR MALIGNANCY. THIS SPECIMEN WAS RESCREENED PART OF OUR SILK SNAPPER PROGRAM. Specimen adequacy: 02 Satisfactory for evaluation. No endocervical component is identified. An endocervical component is not commonly seen in the patient. Performed by: 03 My Kraus, Sulfur Burner (ASC) QC reviewed by: 02 Debbie Pagan, Sulfur Burner ([facility]) . 02 Note: Note 02 The Pap [...] <-Panic Low,>-Panic High,A-Abnormal,AA-Critical Abnormal Performed at: [address] [address] Sarai Durant MD, 03 [facility] [address] [place] [address] Marito Torres PhD, Performed at: =[address] [id number] Flight Nurse: Sarai Durant MD, Phone: [phone] Performed at: [address] [id number] Flight Nurse: Sarai Durant MD, Phone: [phone] [facility] GLU[facility]SE 1 HOURon 06-07-2024 Glucose [Mass/Vol] 108 mg/dL NINF - 13 0 mg/dL [facility] RECURRENT VAGINITIS (HTRX)on 06-07-2024 ATOPOBIUM VAGINAE 0 [facility] ATOPOBIUM VAGINAE Not detected [facility] BVAB 2,3 (BACTERIAL VAGINOSIS ASSOCIATED BACTERIA 2, 3); MOBILUNCUS SPP 0 [facility] BVAB 2,3 (BACTERIAL VAGINOSIS ASSOCIATED BACTERIA 2, 3); MOBILUNCUS SPP Not detected [facility] ANTONINO ALBICANS, PARAPSILOSIS, TROPICALIS 0 [facility] ANTONINO ALBICANS, PARAPSILOSIS, TROPICALIS Not detected [facility] ANTONINO GLABRATA 0 [facility] ANTONINO GLABRATA Not detected [facility] ANTONINO KRUSEI 0 [facility] ANTONINO KRUSEI Not detected [facility] CHLAMYDIA TRACHOMATIS 0 [facility] CHLAMYDIA TRACHOMATIS Not detected [facility] GARDNERELLA VAGINALIS 0 [facility] GARDNERELLA VAGINALIS Not detected [facility] MEGASPHAERA (TYPES 1, 2) 0 [facility] MEGASPHAERA (TYPES 1, 2) Not detected [facility] MYCOPLASMA GENITALIUM 0 [facility] MYCOPLASMA GENITALIUM Not detected [facility] NEISSERIA GONORRHOEAE 0 [facility] NEISSERIA GONORRHOEAE Not detected [facility] TRICHOMONAS VAGINALIS 0 [facility] TRICHOMONAS VAGINALIS Not detected [facility] Urinalysis macro (dipstick) panel (U)on 06-06-2024 Bilirubin, UA Positive Negative - 4(70) +++ mg/dL [facility] Comment on above: small Blood, UA Negative Negative - 50 Sherman/mcL [facility] Clarity, UA Clear [facility] Color, UA Hanna [facility] Glucose, UA Negative Negative - 1999(110) ++++ mg/dL [facility] Interpretation and review of laboratory results Abnormal [facility] Ketones, UA Positive Negative - 160(16) ++++ mg/dL [facility] Comment on above: 160 Leukocytes, UA Negative Negative - 500+++ Jackie/mcL [facility] Nitrite, UA Negative Negative - Positive [facility] pH, UA 5.5 5 - 9 [facility] Protein, UA Positive Negative - 1999(20) ++++ mg/dL [facility] Comment on above: 100 Spec Grav, UA 1.03 1 - 1.03 [facility] Urobilinogen, UA 0.2 0.2 - 12 mg/dL [facility] MLR HEMOGLOBIN A1Con 025 Glucose [Mass/Vol] 105 mg/dL [facility] HbA1c (Bld) [Mass fraction] 5.3 % 4.5 - 6.2 % [facility] Comment on above: ADA RECOMMENDED LIMI T 4.0 - 6.0 ADA THERAPEUTIC TARGET < 7.0 ACTION SUGGESTED > 7.0 [facility] Urinalysis macro (dipstick) panel (U)on 05-09-2024 Bilirubin, UA Positive Negative - 4(70) +++ mg/dL [facility] Comment on above: small Blood, UA Negative Negative - 50 Sherman/mcL [facility] Clarity, UA Clear [facility] Color, UA Yellow [facility] Glucose, UA Negative Negative - 1999(110) ++++ mg/dL [facility] Interpretation and review of laboratory results Abnormal [facility] Ketones, UA Positive Negative - 160(16) ++++ mg/dL [facility] Comment on above: trace Leukocytes, UA Positive Negative - 500+++ Jackie/mcL [facility] Comment on above: small Nitrite, UA Negative Negative - Positive [facility] pH, UA 6.5 5 - 9 [facility] Protein, UA Positive Negative - 1999(20) ++++ mg/dL [facility] Comment on above: 100mg/dL Spec Grav, UA 1.025 1 - 1.03 [facility] Urobilinogen, UA 1.0 0.2 - 12 mg/dL [facility] HCG ( test) Ql (U)o n 04-07-2024 Interpretation and review of laboratory results Abnormal [facility] Preg Test, Ur Positive Negative [facility] US OB TRANSVAGINALon 025 US OB TRANSVAGINAL [...] report is generated using voice recognition reporting ([employer]). On occasion [employer] erroneously drops words from the report or [...] UA Negative Negative - 4(70) +++ mg/dL [facility] Blood, UA Positive Negative - 50 Sherman/mcL [facility] Comment on above: trace Clarity, UA Clear [facility] Color, UA Yellow [facility] Glucose, UA Negative Negative - 1999(110) ++++ mg/dL [facility] Interpretation and review of laboratory results Abnormal [facility] Ketones, UA Positive Negative - 160(16) ++++ mg/dL [facility] Comment on above: trace Leukocytes, UA Trace Negative - 500+++ Jackie/mcL [facility] Nitrite, UA Negative Negative - Positive [facility] pH, UA 5.5 5 - 9 [facility] Protein, UA Trace Negative - 1999(20) ++++ mg/dL [facility] Spec Grav, UA 1.03 1 - 1.03 [facility] Urobilinogen, UA 0.2 0.2 - 12 mg/dL [facility] [place][note 2] PREG QUANT HCGon 024 HCG QUANTITATIVE 5 mIU/mL [facility] Comment on above: 5-50 0.2-1 WEEK 50-500 1-2 WEEKS 100-5,000 2-3 WEEKS 500-10,000 3-4 WEEKS 1,000-50,000 4-5 WEEKS 10,000-100,000 5-6 WEEKS 15,000-200,000 6-8 WEEKS 10,000-100,000 2-3 MONTHS [facility] PREG QUANT HCGon 024 HCG QUANTITATIVE 16 mIU/mL [facility] Comment on above: 5-50 0.2-1 WEEK 50-500 1-2 WEEKS 100-5,000 2-3 WEEKS 500-10,000 3-4 WEEKS 1,000-50,000 4-5 WEEKS 10,000-100,000 5-6 WEEKS 15,000-200,000 6-8 WEEKS 10,000-100,000 2-3 MONTHS [facility] PREG QUANT HCGon 024 HCG QUANTITATIVE 70 mIU/mL [facility] Comment on above: 5-50 0.2-1 WEEK 50-500 1-2 WEEKS 100-5,000 2-3 WEEKS 500-10,000 3-4 WEEKS 1,000-50,000 4-5 WEEKS 10,000-100,000 5-6 WEEKS 15,000-200,000 6-8 WEEKS 10,000-100,000 2-3 MONTHS [facility] ALL CBC WITH AUTO DIFFon BASOPHILS ABSOLUTE AUTO 0.0 [facility] Basophils/100 WBC (Bld) 0.2 % 0.2 - 2.0 % [facility] Eosinophils/100 WBC (Bld) 0.7 % Low 0.9 - 7.0 % [facility] Erythrocyte distribution width (RBC) [Ratio] 13.3 % 11.0 - 15.0 % [facility] Hematocrit (Bld) [Volume fraction] 37.9 % 36.0 - 48.0 % [facility] Hemoglobin (Bld) [Mass/Vol] 13.0 g/dL 12.0 - 16.0 g/dL [facility] IMMATURE GRANULOCYTES ABS AUTO 0.03 [facility] Immature granulocytes/100 WBC (Bld) 0.3 % 0.0 - 0.5 % [facility] Interpretation and review of laboratory results Abnormal [facility] LYMPHOCYTES ABSOLUTE AUTO 1.7 [facility] Lymphocytes/100 WBC (Bld) 14.9 % Low 20.5 - 60.0 % [facility] MCH (RBC) [Entitic mass] 27.6 pg 26.7 - 34.0 pg [facility] MCHC (RBC) [Mass/Vol] 34.3 g/dL 29.9 - 35.2 g/dL [facility] MCV (RBC) [Entitic vol] 80.5 fL Low 81.0 - 99.0 fL [facility] MONOCYTES ABSOLUTE AUTO 0.6 [facility] Monocytes/100 WBC (Bld) 5.6 % 1.7 - 12.0 % [facility] NEUTROPHILS ABSOLUTE AUTO 8.7 High [facility] Neutrophils/100 WBC (Bld) 78.3 % High 43.0 - 75.0 % [facility] Platelet mean volume (Bld) [Entitic vol] 9.1 fL Low 9.5 - 13.5 fL [facility] EO # 0.1 [facility] TB PLT 297 [facility] RBC 4.71 [facility] WBC 11.1 High [facility] Leif 11-13-2023 L Specimen: [id number] Received: 11/16/23 Status: RUBINA Sharpe Num: [id number] Spec Type: Surgical Subm Dr: Newton Carter Tissues: A Products of Conception - Spontaneous or Missed (POC MOLAR Procedures: HE/3, Gross/Micro L4 Age/ Patient Sex Location Account Attending Physician Sarah Arce 23/F [id number] Newton Carter SPEC NUM: [id number] RECD: 11/16/23 STATUS: RUBINA SHARPE NUM: [id number] MARY: 11/13/23-[address]: Newton Carter ENTERED: 11/16/23 [facility] DR: Myriam,Lab SPEC TYPE: Surgical DEPT: TOBY WOOD ENTERED BY: [id number] RECV BY: [id number] ORDERED: HE/3, Gross/Micro L4 ORDERED: HE/3, Gross/Micro [...] the complete mole Clinical Information Molar Specimen: [id number] Received: 11/16/23 Status: RUBINA Sharpe Num: [id number] Spec Type: Surgical Subm Dr: Newton Carter Tissues: A Products of Conception - Spontaneous or Missed (POC MOLAR Procedures: HE3, Gross/Micro L4 Patient: Sarah Arce [id number] (Continued) Specimen: [id number] Received: 11/16/23 (Continued) Signed (signature on file) Antonia Camarena MD 11/21/23 1057 Specimen: [id number] Received: 11/16/23 Status: RUBINA Sharpe Num: [id number] Spec Type: Surgical Subm Dr: Newton Carter Tissues: A Products of Conception - Spontaneous or Missed (POC MOLAR Procedures: /3, Gross/Lisa L4 Patient: ClaudeSarah [id number] (Continued) Specimen: [id number] Received: 11/16/23 (Continued) Gross Description The specimen was received in formalin with the patient's name and products of conception and consists of multiple jasmine-pink hemorrhagic soft tissue fragments measuring 12.0 x 11.0 x 1.5 cm in aggregate. Multiple cystic structures are identified ranging in size from 0.1 to 0.5 cm. The cysts are filled with a clear fluid. Marketing Technologist sections of the cystic structures are submitted in cassettes A1-A3 DM Microscopic Description Microscopic examinations are performed supporting the above interpretation CPT Codes 24109 Specimen: [id number] Received: 11/16/23 Status: RUBINA Sharpe Num: [id number] Spec Type: Surgical Subm Dr: Newton Carter Tissues: A Products of Conception - Spontaneous or Missed (POC MOLAR Procedures: HE/3, Gross/Micro L4 Patient: Sarah Arce [id number] (Continued) Signed (signature on file) Johnny-Sarkis Camarena MD 11/21/23 1057 Normal [facility] ALL CBC WITH AUTO DIFFon BASOPHILS ABSOLUTE AUTO 0.0 [facility] Basophils/100 WBC (Bld) 0.2 % 0.2 - 2.0 % [facility] Eosinophils/100 WBC (Bld) 1.3 % 0.9 - 7.0 % [facility] Erythrocyte distribution width (RBC) [Ratio] 13.3 % 11.0 - 15.0 % [facility] Hematocrit (Bld) [Volume fraction] 37.4 % 36.0 - 48.0 % [facility] Hemoglobin (Bld) [Mass/Vol] 12.6 g/dL 12.0 - 16.0 g/dL [facility] IMMATURE GRANULOCYTES ABS AUTO 0.02 [facility] Immature granulocytes/100 WBC (Bld) 0.2 % 0.0 - 0.5 % [facility] Interpretation and review of laboratory results Abnormal [facility] LYMPHOCYTES ABSOLUTE AUTO 1.4 [facility] Lymphocytes/100 WBC (Bld) 12.1 % Low 20.5 - 60.0 % [facility] MCH (RBC) [Entitic mass] 27.0 pg 26.7 - 34.0 pg [facility] MCHC (RBC) [Mass/Vol] 33.7 g/dL 29.9 - 35.2 g/dL [facility] MCV (RBC) [Entitic vol] 80.1 fL Low 81.0 - 99.0 fL [facility] MONOCYTES ABSOLUTE AUTO 0.7 [facility] Monocytes/100 WBC (Bld) 6.4 % 1.7 - 12.0 % [facility] NEUTROPHILS ABSOLUTE AUTO 9.2 High [facility] Neutrophils/100 WBC (Bld) 79.8 % High 43.0 - 75.0 % [facility] Platelet mean volume (Bld) [Entitic vol] 9.1 fL Low 9.5 - 13.5 fL [facility] TBH EO # 0.2 [facility]H PLT 284 [facility] TB RBC 4.67 [facility] WBC 11.5 High [facility] Automated basophil %Ordered By: CHUCK Huitron on 04-30-2023 Basophils/100 WBC (Bld) 0.7 % Normal . [facility] Comment on above: Performed By: #### C BC, HCGQNT #### [facility] [address] [place] [address] Automated basophil countOrde red By: CHUCK Huitron on 04-30-2023 Basophils (Bld) [#/Vol] 0.1 10*3/uL Normal 0.0-0.[address] [facility] Comment on above: Result Comment: PERF ORMED BY: [place] [address] PATHOLOGIST MANAGER STYLIST CHUY PALOMO M.D. Performed By: #### C SINDI, HCGQNT #### [address] Automated blood monocyte cou ntOrdered By: CHUCK Huitron on 04-30-2023 Monocytes (Bld) [#/Vol] 0.5 10*3/uL Normal 0.0-0.[address] [facility] Comment on above: Performed By: #### C SINDI, HCGQNT #### [address] Automated eosinophil %Ordere d By: CHUCK Huitron on 04-30-2023 Eosinophils/100 WBC (Bld) 1.3 % Normal . [facility] Comment on above: Performed By: #### C BC, HCGQNT #### [address] Automated eosinophil countOr dered By: CHUCK Huitron on 04-30-2023 Eosinophils (Bld) [#/Vol] 0.1 10*3/uL Normal 0.0-0.[address] [facility] Comment on above: Performed By: #### C BC, HCGQNT #### [address] Automated monocyte %Ordered By: CHUCK Huitron on 04-30-2023 Monocytes/100 WBC (Bld) 6.3 % Normal . [facility] Comment on above: Performed By: #### C BC, HCGQNT #### [address] Automated neutrophil %Ordere d By: CHUCK Huitron on 04-30-2023 Neutrophils/100 WBC (Bld) 63.0 % Normal . [facility] Comment on above: Performed By: #### C BC, HCGQNT #### [address] Choriogonadotropin.beta subu nit [Units/volume] in Serum or PlasmaOrdered By: SHANNON Huitron on 04-30-2023 HCG.beta subunit Qn 2358.00 m[IU]/mL [facility] Comment on above: Approximate Approxim ate hCG Gestational Age Range (mIU/ml) (weeks)0.2-1 5-50 1-2 50-500 2-3 100-5,000 3-4 500-10,000 4-5 1,000-50,000 5-6 10,000-100,000 6-8 15,000-200,000 8-12 10,000-100,000 Complete Blood Count Auto Di ffon 04-30-2023 Mean Corpuscular HGB Conc 34.7 g/dL Normal 32.0-35.0 [facility] Comment on above: Performed By: #### C BC, HCGQNT #### [address] NRBC% 0.1 /100{WBC} Normal 0-0.5 [facility] Comment on above: Performed By: #### C BC, HCGQNT #### [address] Erythrocyte distribution wid th [Ratio] by Automated countOrdered By: CHUCK Huitron on 04-30-2023 Erythrocyte distribution width (RBC) [Ratio] 14.1 % Normal 11.9-15.[address] [facility] Comment on above: Performed By: #### C BC, HCGQNT #### [address] Erythrocytes [#/volume] in B lood by Automated countOrdered By: CHUCK Huitron on 04-30-2023 RBC (Bld) [#/Vol] 4.40 10*6/uL Normal 3.60-5.00 [facility] Comment on above: Performed By: #### C BC, HCGQNT #### [address] HCG,Quantitativeon HCG,Quantitative 2358.00 m[iU]/mL Normal [facility] Comment on above: Result Comment: Appr oximate Approximate hCG Gestational Age Range (mIU/ml) (weeks) 0.2-1 5-50 1-2 50-500 2-3 100-5,000 3-4 500-10,000 4-5 1,000-50,000 5-6 10,000-100,000 6-8 15,000-200,000 8-12 10,000-100,000 PERFORMED BY: [place] [address] PATHOLOGIST MANAGER STYLIST CHUY PALOMO M.D. Performed By: #### C BC, HCGQNT #### [facility] [address] [place] [address] Hematocrit [Volume Fraction] of Blood by Automated countOrdered By: CHUCK Huitron on 04-30-2023 Hematocrit (Bld) [Volume fraction] 35.3 % Normal 34.0-46.[address] [facility] Comment on above: Performed By: #### C BC, HCGQNT #### [address] Hemoglobin [Mass/volume] in BloodOrdered By: CHUCK Huitron on 04-30-2023 Hemoglobin (Bld) [Mass/Vol] 12.2 g/dL Normal 11.8-15.[address] [facility] Comment on above: Performed By: #### C BC, HCGQNT #### [facility] [address] [id number] [place] Leif 04-30-2023 L Specimen: [id number] Received: 04/30/23 Status: RUBINA Req Num: [id number] Spec Type: Surgical Subm Dr: CHUCK Astorga Tissues: A Products of Conception - Spontaneous or Missed (PRODUCTS OF CONCEPT Procedures: HE/3, Gross/Micro L4 Age/ Patient Sex Location Account Attending Physician Sarah Arce 23/F N3 [id number] CHUCK Astorga SPEC NUM: [id number] RECD: 04/30/23 STATUS: RUBINA REKathrin NUM: [id number] MARY: 04/30/23- SUBM DR: CHUCK Astorga ENTERED: 04/30/23 [facility] DR: SPEC TYPE: Surgical DEPT: [...] is tentatively identified. tissue is not identified. Marketing Technologist sections focused on potential villi. Marketing Technologist sections are submitted in three cassettes labeled A1-A3. CPT Codes 77844 Specimen: [id number] Received: 04/30/23 Status: RUBINA Sharpe Num: [id number] Spec Type: Surgical Subm Dr: CHUCK Astorga Tissues: A Products of Conception - Spontaneous or Missed (PRODUCTS OF CONCEPT Procedures: HE/3, Gross/Micro L4 Patient: Sarah Arce [id number] (Continued) Signed (signature on file) Tavia Abad MD 05/05/23 2310 Normal [facility] Leukocytes [#/volume] correc bridget for nucleated erythrocytes in Blood by Automated counOrdered By: CHUCK Huitron on 04-30-2023 WBC corrected for nucl RBC Auto (Bld) [#/Vol] 8.4 10*3/uL 3.8-11.[address] [facility] Leukocytes [#/volume] in Blo od by Automated countOrdered By: CHUCK Huitron on 04-30-2023 WBC (Bld) [#/Vol] 8.4 10*3/uL Normal 3.8-11.6 [facility] Comment on above: Performed By: #### C BC, HCGQNT #### [address] Lymphocytes [#/volume] in Bl ood by Automated countOrdered By: CHUCK Huitron on 04-30-2023 Lymphocytes (Bld) [#/Vol] 2.4 10*3/uL Normal 1.00-4.[address] [facility] Comment on above: Performed By: #### C BC, HCGQNT #### [address] Lymphocytes/100 leukocytes i n Blood by Automated countOrdered By: CHUCK Huitron on 04-30-2023 Lymphocytes/100 WBC (Bld) 28.7 % Normal . [facility] Comment on above: Performed By: #### C BC, HCGQNT #### [address] MCH [Entitic mass] by Automa bridget countOrdered By: CHUCK Huitron on 04-30-2023 MCH (RBC) [Entitic mass] 27.8 pg Normal 24.7-34.[address] [facility] Comment on above: Performed By: #### C BC, HCGQNT #### [address] MCHC Auto (RBC) [Mass/Vol]Or dered By: CHUCK Huitron on 04-30-2023 MCHC (RBC) [Mass/Vol] 34.7 g/dL 32.0-35.0 [facility] MCV [Entitic volume] by Auto mated countOrdered By: CHUCK Huitron on 04-30-2023 MCV (RBC) [Entitic vol] 80.2 fL Normal 80-[address] [facility] Comment on above: Performed By: #### C BC, HCGQNT #### [place] [address] [place] Neutrophils [#/volume] in Bl ood by Automated countOrdered By: CHUCK Huitron on 04-30-2023 Neutrophils (Bld) [#/Vol] 5.3 10*3/uL Normal 1.8-7.[address] [facility] Comment on above: Performed By: #### C BC, HCGQNT #### [facility] [address] [place] [address] Nucleated erythrocytes [Pres ence] in Blood by Automated countOrdered By: CHUCK Huitron on 04-30-2023 Nucleated RBC Auto Ql (Bld) 0.1 /100{WBC} 0-0.[address] [facility] Platelet mean volume [Entiti c volume] in Blood by Automated countOrdered By: SHANNON Huitron on 04-30-2023 Platelet mean volume (Bld) [Entitic vol] 6.7 fL Normal 6.3-10.[address] [facility] Comment on above: Performed By: #### C BC, HCGQNT #### [address] Platelets [#/volume] in Bloo d by Automated countOrdered By: CHUCK Huitron on 04-30-2023 Platelets (Bld) [#/Vol] 317 10*3/uL Normal 150-[address] [facility] Comment on above: Performed By: #### C BC, HCGQNT #### [address] US transvaginalon 04-30-2023 US transvaginal [facility] [place] [address] Ultrasound Report Signed Patient: Sarah Arce MR#: [id number] : 2000 Acct:[id number] Age/Sex: 23 / F ADM Date: 04/29/23 Loc: Room: [address] [place] [address] Type: REG CLI Attending Dr: Dawn Huitron MD Ordering Provider: CHUCK Astorga Date of Service: 04/30/23 US/US pelvic complete: D and C scheduled ([id number]) US/US transvaginal: PRODUCTS OF CONCEPTION WITH PRIOR [...] Usama Peña M.D.04/30/2023 9:37 AM Dictation Location: [place] [address] Tech: Anca Carpio Transcribed By: [facility] 04/30/23 0937 Dictated By: Usama Peña DO 04/30/23 0933 Signed By: 04/30/23 0937 Normal [facility] ABO/Rh Retypeon 04-29-2023 ABO/RH Recheck Result Positive Normal [facility] Comment on above: Result Comment: PERF ORMED BY: [place] [address] PATHOLOGIST MANAGER STYLIST CHUY PALOMO M.D. Complete Blood Count Auto Di ffon 04-29-2023 Basophils (Bld) [#/Vol] 0.0 10*3/uL Normal 0.0-0.2 [facility] Comment on above: Result Comment: PERF ORMED BY: [place] [address] PATHOLOGIST MANAGER STYLIST CHUY PALOMO M.D. Performed By: #### H CGQNT, CBC #### [facility] [address] [place] [address] [place] Basophils/100 WBC (Bld) 0.3 % Normal . [facility] Comment on above: Performed By: #### H CGQNT, CBC #### [facility] [address] [place] [address] [place] Eosinophils (Bld) [#/Vol] 0.2 10*3/uL Normal 0.0-0.45 [facility] Comment on above: Performed By: #### H CGQNT, CBC #### [address] Eosinophils/100 WBC (Bld) 1.1 % Normal . [facility] Comment on above: Performed By: #### H CGQNT, CBC #### [address] Erythrocyte distribution width (RBC) [Ratio] 13.9 % Normal 11.9-15.3 [facility] Comment on above: Performed By: #### H CGQNT, CBC #### [address] Hematocrit (Bld) [Volume fraction] 39.8 % Normal 34.0-46.4 [facility] Comment on above: Performed By: #### H CGQNT, CBC #### [address] Hemoglobin (Bld) [Mass/Vol] 13.3 g/dL Normal 11.8-15.4 [facility] Comment on above: Performed By: #### H CGQNT, CBC #### [address] Lymphocytes (Bld) [#/Vol] 2.3 10*3/uL Normal 1.00-4.8 [facility] Comment on above: Performed By: #### H CGQNT, CBC #### [address] Lymphocytes/100 WBC (Bld) 17.0 % Normal . [facility] Comment on above: Performed By: #### H CGQNT, CBC #### [address] MCH (RBC) [Entitic mass] 27.0 pg Normal 24.7-34.3 [facility] Comment on above: Performed By: #### H CGQNT, CBC #### [address] MCV (RBC) [Entitic vol] 80.8 fL Normal 80-100 [facility] Comment on above: Performed By: #### H CGQNT, CBC #### [address] Mean Corpuscular HGB Conc 33.5 g/dL Normal 32.0-35.0 [facility] Comment on above: Performed By: #### H CGQNT, CBC #### [address] Monocytes (Bld) [#/Vol] 0.5 10*3/uL Normal 0.0-0.8 [facility] Comment on above: Performed By: #### H CGQNT, CBC #### [address] Monocytes/100 WBC (Bld) 4.0 % Normal . [facility] Comment on above: Performed By: #### H CGQNT, CBC #### [address] Neutrophils (Bld) [#/Vol] 10.6 10*3/uL High 1.8-7.7 [facility] Comment on above: Performed By: #### H CGQNT, CBC #### [address] Neutrophils/100 WBC (Bld) 77.6 % Normal . [facility] Comment on above: Performed By: #### H CGQNT, CBC #### [address] NRBC% 0.2 /100{WBC} Normal 0-0.5 [facility] Comment on above: Performed By: #### H CGQNT, CBC #### [address] Platelet mean volume (Bld) [Entitic vol] 7.0 fL Normal 6.3-10.7 [facility] Comment on above: Performed By: #### H CGQNT, CBC #### [address] Platelets (Bld) [#/Vol] 369 10*3/uL Normal 150-450 [facility] Comment on above: Performed By: #### H CGQNT, CBC #### [address] RBC (Bld) [#/Vol] 4.93 10*6/uL Normal 3.60-5.[address] [facility] Comment on above: Performed By: #### H CGQNT, CBC #### [address] WBC (Bld) [#/Vol] 13.6 10*3/uL High 3.8-11.[address] [facility] Comment on above: Performed By: #### H CGQNT, CBC #### [address] HCG,Quantitativeon 4 HCG,Quantitative 3230.00 m[iU]/mL Normal [facility] Comment on above: Result Comment: Appr oximate Approximate hCG Gestational Age Range (mIU/ml) (weeks) 0.2-1 5-50 1-2 50-500 2-3 100-5,000 3-4 500-10,000 4-5 1,000-50,000 5-6 10,000-100,000 6-8 15,000-200,000 8-12 10,000-100,000 PERFORMED BY: [place] [address] PATHOLOGIST MANAGER STYLIST CHUY PALOMO M.D. Performed By: #### H CGQNT, CBC #### [address] Type and Screenon 04-29-2023 ABO and Rh group Nom (Bld) Blood group A Rh(D) positive Normal [facility] Leif 04-24-2023 L Specimen: [id number] Received: 04/24/23 Status: SOUT Req Num: [id number] Spec Type: Surgical Subm Dr: Dawn Huitron MD-NOMS Tissues: A Products of Conception - Spontaneous or Missed (POC) Procedures: HE/3, Gross/Micro L4 Age/ Patient Sex Location Account Attending Physician Sarah Arce 23/F [place] [id number] CHUCK Astorga SPEC NUM: [id number] RECD: 04/24/23 STATUS: RUBINA SHARPE NUM: [id number] MARY: 04/24/23- SUBM DR: CHUCK Astorga ENTERED: 04/24/23 [facility] [address]: SPEC TYPE: Surgical DEPT: S ENTERED BY: [id number] RECV BY: [id number] ORDERED: HE/3, Gross/Micro L4 ORDERED: HE/3, Gross/Micro [...] foot length of 0.7 cm from heel-to-toe. Marketing Technologist sections are submitted in 3 cassettes as follows: A1-A2 - Villous tissue A3 - tissue CPT Codes 81659 Specimen: [id number] Received: 04/24/23 Status: RUBINA Dell Num: [id number] Spec Type: Surgical Subm Dr: CHUCK Astorga Tissues: A Products of Conception - Spontaneous or Missed (POC) Procedures: HE/3, Michael/Lisa L4 Patient: Sarah Arce [id number] (Continued) Signed (signature on file) Tavia Abad MD 04/28/23 2321 Normal [facility] CBC AUTO DIFFon 10-02-2020 BASO # 0.0 103/ul Normal 0.0-0.1 [facility] Comment on above: Performed By: #### U MICRO, CSIND #### [facility] [place] [facility] [address], [place] [address] Vandana Indira Basophils/100 WBC (Bld) 0.1 % Critically low 0.2-2.0 [facility] [place] [facility] Comment on above: Performed By: #### U MICRO, UACSIND #### [facility] [place] [facility] [address] [place], [place] [address] Vandana Indira EO # 0.0 103/ul Normal 0.0-0.7 [facility] [place] [facility] Comment on above: Performed By: #### U MICRO, UACSIND #### [facility] [place] [facility] [address], [place] [address] Vandana Indira Eosinophils/100 WBC (Bld) 0.0 % Critically low 0.9-7.0 [facility] Comment on above: Performed By: #### U MICRO, UACSIND #### [facility] [place] [facility] [address] [place] [address] Vandana Jacobson Erythrocyte distribution width (RBC) [Ratio] 15.9 % Critically high 11.0-15.0 [facility] Comment on above: Performed By: #### U MICRO, UACSIND #### [facility] [place] [facility] [address] [place] [address] Vandanadave Jacobson Hematocrit (Bld) [Volume fraction] 33.3 % Critically low 36.0-48.0 [facility] Comment on above: Performed By: #### U MICRO, UACSIND #### [facility] [place] [facility] [address] [place] [address] Vandanadave Jacobson Hemoglobin (Bld) [Mass/Vol] 11.2 g/dL Critically low 12.0-16.0 [facility] Comment on above: Performed By: #### U MICRO, UACSIND #### [facility] [place] [facility] [address] [place] [address] Vandana Indira IG # 0.07 10e3/ul Critically high 0.00-0.03 [facility] Comment on above: Performed By: #### U MICRO, UACSIND #### [facility] [place] [facility] [address] [place] [address] Vandanadave Jacobson IG % 0.4 % Normal 0.0-0.5 [facility] Comment on above: Performed By: #### U MICRO, UACSIND #### [facility] [place] [facility] [address] [place] [address] Vandana Indira LYMPH # 1.9 103/ul Normal 1.2-3.8 [facility] [place] [facility] Comment on above: Performed By: #### U MICRO, UACSIND #### [facility] [place] [facility] [address] [place] [address] Vandana Jacobson Lymphocytes/100 WBC (Bld) 11.4 % Critically low 20.5-60.0 [facility] Comment on above: Performed By: #### U MICRO, UACSIND #### [facility] [place] [facility] [address] [place] [address] Vandana Jacobson MANUAL DIFF REQ NO Normal [facility] Comment on above: Performed By: #### U MICRO, UACSIND #### [facility] [place] [facility] [address] [place] [address] Vandana Jacobson MCH (RBC) [Entitic mass] 27.7 pg Normal 26.7-34.0 [facility] [place] [facility] Comment on above: Performed By: #### U MICRO, UACSIND #### [facility] [place] [facility] [address] [place] [address] Vandana Jacobson MCHC (RBC) [Mass/Vol] 33.6 g/dL Normal 29.9-35.2 [facility] [place] [facility] Comment on above: Performed By: #### U MICRO, UACSIND #### [facility] [place] [facility] [address] [place] [address] Vandana Jacobson MCV (RBC) [Entitic vol] 82.4 fL Normal 81.0-99.0 [facility] [place] [facility] Comment on above: Performed By: #### U MICRO, UACSIND #### [facility] [place] [facility] [address] [place] [address] Vandana Jacobson MONO # 1.0 103/ul Critically high 0.3-0.8 [facility] Comment on above: Performed By: #### U MICRO, UACSIND #### [facility] [place] [facility] [address] [place] [address] Vandana Jacobson Monocytes/100 WBC (Bld) 6.3 % Normal 1.7-12.0 [facility] [place] [facility] Comment on above: Performed By: #### U MICRO, UACSIND #### [facility] [place] [facility] [address] [place] [address] Vandana Jacobson NEUT # 13.4 103/ul Critically high 1.4-6.5 [facility] Comment on above: Performed By: #### U MICRO, UACSIND #### [facility] [place] [facility] [address] [place] [address] Vandana Indira Neutrophils/100 WBC (Bld) 81.8 % Critically high 43.0-75.0 [facility] [place] [facility] Comment on above: Performed By: #### U MICRO, UACSIND #### [facility] [place] [facility] [address] [place], [place] [address] Vandana Jacobson Platelet mean volume (Bld) [Entitic vol] 10.3 fL Normal 9.5-13.5 [facility] [place] [facility] Comment on above: Performed By: #### U MICRO, UACSIND #### [facility] [place] [facility] [address] [place], [place] [address] Vandana Jacobson PLT 202 103/ul Normal 150-450 [facility] [place] [facility] Comment on above: Performed By: #### U MICRO, UACSIND #### [facility] [place] [facility] [address] [place], [place] [address] Vandana Lien RBC 4.04 106/ul Critically low 4.20-5.40 [facility] Comment on above: Performed By: #### U MICRO, UACSIND #### [facility] [place] [facility] [address] [place], [place] [address] Vandana Jacobson WBC 16.4 103/ul Critically high 4.0-11.0 [facility] Comment on above: Performed By: #### U MICRO, UACSIND #### [facility] [place] [facility] [address] [place], [place] [address] Vandana Jacobson ASYMPTOMATIC COVID-19 ANTIGE Non 10-01-2020 EUA Statement SEE BELOW Normal [facility] Comment on above: Result Comment: [...] sooner. Performed By: #### C VDAGA #### [facility] [place] [facility] [address] [id number] Vandana Jacobson SARS-CoV-2 (COVID-19) RNA RAMA+probe Ql (Unsp spec) Negative Normal NEGATIVE [facility] [place] [facility] Comment on above: Result Comment: Nega tive results are presumptive. They do not preclude infection and should not be used as the sole basis for treatment decisions. Additional confirmatory testing by a molecular method should be considered. Performed By: #### C VDAGA #### [facility] [place] [facility] [facility] [address] [place], [place] [id number] Vandana Indira CBC AUTO DIFFon 10-01-2020 BASO # 0.0 103/ul Normal 0.0-0.1 [facility] Comment on above: Performed By: #### D RUGRPD #### [facility] [address] [place], [place] [id number] Vandana Indira Basophils/100 WBC (Bld) 0.1 % Critically low 0.2-2.0 [facility] Comment on above: Performed By: #### D RUGRPD #### [facility] [address] [place], [place] [address] Vandana Indira EO # 0.0 103/ul Normal 0.0-0.7 [facility] Comment on above: Performed By: #### D RUGRPD #### [facility] [address] [place], [place] [address] Vandana Indira Eosinophils/100 WBC (Bld) 0.1 % Critically low 0.9-7.0 [facility] Comment on above: Performed By: #### D RUGRPD #### [facility] [address] [place], [place] [address] Vandana Indira Erythrocyte distribution width (RBC) [Ratio] 15.8 % Critically high 11.0-15.0 [facility] Comment on above: Performed By: #### D RUGRPD #### [facility] [address] [place], [place] [address] Vandana Indira Hematocrit (Bld) [Volume fraction] 40.2 % Normal 36.0-48.0 [facility] Comment on above: Performed By: #### D RUGRPD #### [facility] [address] [place], [place] [address] Vandana Indira Hemoglobin (Bld) [Mass/Vol] 13.4 g/dL Normal 12.0-16.0 [facility] Comment on above: Performed By: #### D RUGRPD #### [facility] [address] [place], [place] [address] Vandana Indira IG # 0.04 10e3/ul Critically high 0.00-0.03 [facility] Comment on above: Performed By: #### D RUGRPD #### [facility] [address] [place] [address] Vandana Indira IG % 0.4 % Normal 0.0-0.5 [facility] Comment on above: Performed By: #### D RUGRPD #### [facility] [address] [place] [address] Vandana Indira LYMPH # 1.5 103/ul Normal 1.2-3.8 [facility] Comment on above: Performed By: #### D CATHRYNRPD #### [facility] [address] [place] [address] Vandanadave Jacobson Lymphocytes/100 WBC (Bld) 14.7 % Critically low 20.5-60.0 [facility] Comment on above: Performed By: #### D RUGRPD #### [facility] [address] [place], [place] [address] Vandanadave Jacobson MANUAL DIFF REQ NO Normal [facility] Comment on above: Performed By: #### D RUGRPD #### [facility] [address] [place], [place] [address] Vandana Indira MCH (RBC) [Entitic mass] 27.3 pg Normal 26.7-34.0 [facility] Comment on above: Performed By: #### D RUGRPD #### [facility] [address] [place], [place] [address] Vandanadave Jacobson MCHC (RBC) [Mass/Vol] 33.3 g/dL Normal 29.9-35.2 [facility] Comment on above: Performed By: #### D RUGRPD #### [facility] [address] [place], [place] [address] Vandana Indira MCV (RBC) [Entitic vol] 82.0 fL Normal 81.0-99.0 [facility] Comment on above: Performed By: #### D RUGRPD #### [facility] [address] [place], [place] [address] Vandanadave Lien MONO # 0.5 103/ul Normal 0.3-0.8 [facility] Comment on above: Performed By: #### D RUGRPD #### [facility] [address] [place], [place] [address] Vandana Indira Monocytes/100 WBC (Bld) 5.2 % Normal 1.7-12.0 [facility] Comment on above: Performed By: #### D RUGRPD #### [facility] [address] [place], [place] [address] Vandana Indira NEUT # 8.1 103/ul Critically high 1.4-6.5 [facility] Comment on above: Performed By: #### D RUGRPD #### [facility] [address] [place], [place] [address] Vandana Indira Neutrophils/100 WBC (Bld) 79.5 % Critically high 43.0-75.0 [facility] Comment on above: Performed By: #### D RUGRPD #### [facility] [address] [place], [place] [address] Vandanadave Jacobson Platelet mean volume (Bld) [Entitic vol] 10.6 fL Normal 9.5-13.5 [facility] Comment on above: Performed By: #### D RUGRPD #### [facility] [address] [place], [place] [address] Vandana Indira PLT 256 103/ul Normal 150-450 [facility] Comment on above: Performed By: #### D RUGRPD #### [facility] [address] [place], [place] [address] Vandana Indira RBC 4.90 106/ul Normal 4.20-5.40 [facility] Comment on above: Performed By: #### D RUGRPD #### [facility] [address] [place], [place] [address] Vandana Indira WBC 10.2 103/ul Normal 4.0-11.0 [facility] Comment on above: Performed By: #### D RUGRPD #### [facility] [address] [place] [address] Vandana Indira DRUG SCREEN RAPID (URINE)on 10-01-2020 AMP Negative Normal NEGATIVE [facility] Comment on above: Performed By: #### D RUGRPD #### [facility] [address] [place] [address] Vandana Indira BAR Negative Normal NEGATIVE [facility] Comment on above: Performed By: #### D RUGRPD #### [facility] [address] [place] [address] Vandana Indira BUP Negative Normal NEGATIVE [facility] Comment on above: Performed By: #### D RUGRPD #### [facility] [address] [place] [address] Vandana Indira BZO Negative Normal NEGATIVE [facility] Comment on above: Performed By: #### D RUGRPD #### [facility] [address] [place] [address] Vandana Indira ROLANDA Negative Normal NEGATIVE [facility] Comment on above: Performed By: #### D RUGRPD #### [facility] [address] [place] [address] Vandana Indira CUT-OFFS SEE BELOW Normal [facility] Comment on above: Result Comment: AMP [...] ng/mL Performed By: #### D RUGRPD #### [facility] [address] [place], [place] [address] Vandana Indira DRUG CUT HEADER DRUG CLASS TEST SYSTEM CUT-OFF CONCENTRATIONS ARE FOLLOWS: Normal [facility] Comment on above: Performed By: #### D RUGRPD #### [facility] [address] [place], [place] [address] Vandana Indira mAMP Negative Normal NEGATIVE [facility] Comment on above: Performed By: #### D RUGRPD #### [facility] [address] [id number] Vandana Indira MTD Negative Normal NEGATIVE [facility] Comment on above: Performed By: #### D RUGRPD #### [facility] [address] [place] [address] Vandana Indira OPI Negative Normal NEGATIVE [facility] Comment on above: Performed By: #### D RUGRPD #### [facility] [address] [place] [address] Vandana Indira OXY Negative Normal NEGATIVE [facility] Comment on above: Performed By: #### D RUGRPD #### [facility] [address] [place] [address] Vandana Indira PCP Negative Normal NEGATIVE [facility] Comment on above: Performed By: #### D RUGRPD #### [facility] [address] [place] [address] Vandana Indira PPX Negative Normal NEGATIVE [facility] Comment on above: Performed By: #### D RUGRPD #### [facility] [address] [place], [place] [address] Vandana Indira TCA Negative Normal NEGATIVE [facility] Comment on above: Performed By: #### D RUGRPD #### [facility] [address] [place] [address] Vandana Indira THC Negative Normal NEGATIVE [facility] Comment on above: Performed By: #### D RUGRPD #### [facility] [address] [place], [place] [address] Vandana Indira TYPE AND SCREENon 10-01-2020 TYPE AND SCREEN Negative Normal [facility] Comment on above: Performed By: #### D RUGRPD #### [facility] [address] [place] [address] Vandana Jacobson PREG GROWTHon 09-12-2020 US PREG GROWTH EXAMINATION: [...] EFW: 6 lbs. 13 oz., 58% FL/AC: 0.021300 FL/BPD: 0.007647 HC/AC: 0.700433 GESTATIONAL AGE: Age by EDC: 36 weeks 6 days YUE by EDC: 10/04/2020 Age by US: 37 weeks 0 days YUE by US: 10/03/2020 IMPRESSION: Normal interval growth Electronically authenticated by: KECIA LEI Date: 2020-09-12 13:13 Normal [facility] HEMOGLOBINOPATHY FRACTIONATI ON CASCADEon 09-11-2020 HGB A 97.4 % Normal 96.4-98.8 [facility] Comment on above: Performed By: #### U MICRO, UACSIND #### [facility] [address] [place] [address] Vandana Indira HGB A2 2.6 % Normal 1.8-3.2 [facility] Comment on above: Performed By: #### U MICRO, UACSIND #### [facility] [address] [place] [address] Vandana Indira HGB F 0.0 % Normal 0.0-2.0 [facility] Comment on above: Performed By: #### U MICRO UACSIND #### [facility] [address] [place] [address] Vandana Indira HGB S 0.0 % Normal 0.0 [facility] Comment on above: Performed By: #### U MICRO, UACSIND #### [facility] [address] [place], [place] [address] Vandanadave Jacobson Interpretation: Comment Normal [facility] Comment on above: Result Comment: Norm al hemoglobin present; no hemoglobin variant or thalassemia observed. Performed By: #### U MICRO, UACSIND #### [facility] [address] [place], [place] [address] Vandana Indira CBC AUTO DIFFon 09-10-2020 BASO # 0.0 103/ul Normal 0.0-0.1 [facility] Comment on above: Performed By: #### C BC #### [facility] [address] [place], [place] [address] Vandana Indira Basophils/100 WBC (Bld) 0.1 % Critically low 0.2-2.0 [facility] Comment on above: Performed By: #### C BC #### [facility] [address] [place], [place] [address] Vandana Indira EO # 0.0 103/ul Normal 0.0-0.7 [facility] Comment on above: Performed By: #### C BC #### [facility] [address] [place], [place] [address] Vandana Indira Eosinophils/100 WBC (Bld) 0.4 % Critically low 0.9-7.0 [facility] Comment on above: Performed By: #### C BC #### [facility] [address] [place], [place] [address] Vandana Indira Erythrocyte distribution width (RBC) [Ratio] 16.0 % Critically high 11.0-15.0 [facility] Comment on above: Performed By: #### C BC #### [facility] [address] [place], [place] [address] Vandana Indira Hematocrit (Bld) [Volume fraction] 36.5 % Normal 36.0-48.0 [facility] Comment on above: Performed By: #### C BC #### [facility] [address] [place], [place] [address] Vandana Indira Hemoglobin (Bld) [Mass/Vol] 12.2 g/dL Normal 12.0-16.0 [facility] Comment on above: Performed By: #### C BC #### [facility] [address] [address] Vandana Indira IG # 0.07 10e3/ul Critically high 0.00-0.03 [facility] Comment on above: Performed By: #### C BC #### [facility] [address] [id number] Vandana Indira IG % 0.9 % Critically high 0.0-0.5 [facility] Comment on above: Performed By: #### C BC #### [facility] [address] [place] [address] Vandana Indira LYMPH # 1.9 103/ul Normal 1.2-3.8 [facility] Comment on above: Performed By: #### C BC #### [facility] [address] [place] [address] Vandana Indira Lymphocytes/100 WBC (Bld) 23.7 % Normal 20.5-60.0 [facility] Comment on above: Performed By: #### C BC #### [facility] [address] [place] [address] Vandana Indira MANUAL DIFF REQ NO Normal [facility] Comment on above: Performed By: #### C BC #### [facility] [address] [place], [place] [address] Vandana Indira MCH (RBC) [Entitic mass] 27.4 pg Normal 26.7-34.0 [facility] Comment on above: Performed By: #### C BC #### [facility] [address] [place] [address] Vadnana Indira MCHC (RBC) [Mass/Vol] 33.4 g/dL Normal 29.9-35.2 [facility] Comment on above: Performed By: #### C BC #### [facility] [address] [place], [place] [address] Vandana Indira MCV (RBC) [Entitic vol] 82.0 fL Normal 81.0-99.0 [facility] Comment on above: Performed By: #### C BC #### [facility] [address] [place] [address] Vandana Indira MONO # 0.7 103/ul Normal 0.3-0.8 [facility] Comment on above: Performed By: #### C BC #### [facility] [address] [place], [place] [address] Vandana Jacobson Monocytes/100 WBC (Bld) 8.8 % Normal 1.7-12.0 [facility] Comment on above: Performed By: #### C BC #### [facility] [address] [place] [address] Vandanadave Lien NEUT # 5.3 103/ul Normal 1.4-6.5 [facility] Comment on above: Performed By: #### C BC #### [facility] [address] [place] [address] Vandana Jacobson Neutrophils/100 WBC (Bld) 66.1 % Normal 43.0-75.0 [facility] Comment on above: Performed By: #### C BC #### [facility] [address] [place] [address] Vandana Jacobson Platelet mean volume (Bld) [Entitic vol] 11.6 fL Normal 9.5-13.5 [facility] Comment on above: Performed By: #### C BC #### [facility] [address] [place], [place] [address] Vandana Lien PLT 221 103/ul Normal 150-450 [facility] Comment on above: Performed By: #### C BC #### [facility] [address] [place], [place] [address] Vandana Indira RBC 4.45 106/ul Normal 4.20-5.40 [facility] Comment on above: Performed By: #### C BC #### [facility] [address] [place], [place] [address] Vandana Indira WBC 8.1 103/ul Normal 4.0-11.0 [facility] Comment on above: Performed By: #### C BC #### [facility] [address] [place], [place] [address] Vandana Jacobson VAGINITIS/VAGINOSIS DNA PROB Miller 09-08-2020 Antonino species Negative Normal Negative [facility] Comment on above: Performed By: #### V AGINT #### [facility] [address] [place] [address] Vandana Jacobson Gardnerella vaginalis Negative Normal Negative [facility] Comment on above: Performed By: #### V AGINT #### [facility] [address] [place] [address] Vandanadave Jacobson Trichomonas vaginalis Negative Normal Negative [facility] Comment on above: Performed By: #### V AGINT #### [facility] [address] [place] [address] Vandanadave Jacobson CHLAMYDIA/GONOCOCCUS RAMA (SW AB/URINE/PAPon 09-07-2020 Chlamydia trachomatis, RAMA Negative Normal Negative [facility] Comment on above: Performed By: #### D RUGRPD #### [facility] [address] [place] [address] Vandana Jacobson Neisseria gonorrhoeae, RAMA Negative Normal Negative [facility] Comment on above: Performed By: #### D RUGRPD #### [facility] [address] [place] [address] Vandana Jacobson GROUP B STREP CULTUREon 07-0 S. agalactiae Ag Ql (Unsp spec) Culture Observations: NEGATIVE FOR GROUP B STREPTOCOCCUS. Normal [facility] Comment on above: Performed By: #### D RUGRPD #### [facility] [address] [place], [place] [address] Vandana Jacobson CULTURE URINEon 08-31-2020 CULTURE URINE Culture Observations: LIGHT GROWTH OF MIXED GENITAL TEDDY. NO POTENTIAL PATHOGENS SEEN. Normal [facility] Comment on above: Performed By: #### D RUGRPD #### [facility] [address] [place], [place] [address] Vandana Jacobson UA (CLEAN/CATCH) HEAT ENGINEERING TEACHER/MICRO I F IND.on 08-31-2020 Bilirubin Ql (U) Negative Normal NEGATIVE [facility] Comment on above: Performed By: #### U MICRO, UACSIND #### [facility] [address] [place] [address] Vandana Indira Clarity (U) SL CLOUDY Abnormal CLEAR [facility] Comment on above: Performed By: #### U MICRO, UACSIND #### [facility] [address] [address] Vandana Indira Color (U) LT. YELLOW Normal YELLOW [facility] Comment on above: Performed By: #### U MICRO, UACSIND #### [facility] [address] [place] [address] Vandana Indira Glucose Ql (U) Negative Normal NEGATIVE [facility] Comment on above: Performed By: #### U MICRO, UACSIND #### [facility] [address] [place] [address] Vandana Indira Hemoglobin Ql (U) Negative Normal NEGATIVE [facility] Comment on above: Performed By: #### U MICRO, UACSIND #### [facility] [address] [place] [address] Vandana Indira Ketones Ql (U) 15 mg/dl Abnormal NEGATIVE [facility] Comment on above: Performed By: #### U MICRO, UACSIND #### [facility] [address] [place] [address] Vandana Indira LEUKOCYTES SMALL Abnormal NEGATIVE [facility] Comment on above: Performed By: #### U MICRO, UACSIND #### [facility] [address] [place] [address] Vandana Indira Nitrite Ql (U) Negative Normal NEGATIVE [facility] Comment on above: Performed By: #### U MICRO, UACSIND #### [facility] [address] [place] [address] Vnadana Indira pH (U) 7.0 [pH] Normal 5-9 [facility] Comment on above: Performed By: #### U MICRO, UACSIND #### [facility] [address] [place] [address] Vandana Indira SPEC GRAVITY 1.015 Normal 1.005-<=1.025 [facility] Comment on above: Performed By: #### U MICRO, UACSIND #### [facility] [address] [place] [address] Vandana Indira UA PROTEIN Negative Normal NEGATIVE/ TRACE [facility] Comment on above: Performed By: #### U MICRO, UACSIND #### [facility] [address] [place] [address] Vandana Indira UR MICRO IND INDICATED Normal [facility] Comment on above: Performed By: #### U MICRO, UACSIND #### [facility] [address] [place] [address] Vandana Indira Urobilinogen Qn (U) 0.2 {Richard'U}/dL Normal 0.2 - 1. 0 [facility] Comment on above: Performed By: #### U MICRO, UACSIND #### [facility] [address] [place] [address] Vandana Indira URINE MICROSCOPIC ONLYon BACTERIA SMALL Abnormal NONE SEEN [facility] Comment on above: Performed By: #### U MICRO, UACSIND #### [facility] [address] [place] [address] Vandana Indira Bacteria identified Cx Nom (U) INDICATED Normal [facility] Comment on above: Performed By: #### U MICRO, UACSIND #### [facility] [address] [place] [address] Vandana Indira CAST NONE SEEN Normal NONE SEEN [facility] Comment on above: Performed By: #### U MICRO, UACSIND #### [facility] [address] [place] [address] Vandana Indira Crystals LM Nom (Urine sed) NONE SEEN Normal NONE SEEN [facility] Comment on above: Performed By: #### U MICRO, UACSIND #### [facility] [address] [place] [address] Vandana Indira Epithelial cells LM Ql (Urine sed) MODERATE Abnormal NONE SEEN /RARE [facility] Comment on above: Performed By: #### U MICRO, UACSIND #### [facility] [address] [place] [address] Vandana Indira MUCOUS NONE SEEN Normal NONE SEEN [facility] Comment on above: Performed By: #### U MICRO, UACSIND #### [facility] [address] [place] [address] Vandana Indira RBC NONE SEEN Abnormal 0-2 [facility] Comment on above: Performed By: #### U MICRO, UACSIND #### [facility] [address] [place] [address] Vandana Indira WBC NONE SEEN Normal NONE SEEN [facility] Comment on above: Performed By: #### U MICRO, UACSIND #### [facility] [address] [place] [address] Vandana Indira CULTURE URINEon 08-01-2020 CULTURE URINE Culture Observations: LIGHT GROWTH OF MIXED GENITAL TEDDY. NO POTENTIAL PATHOGENS SEEN. Normal [facility] Comment on above: Performed By: #### U RCX #### [facility] [address] [place] [address] Vandana Indira UA RANDOM W/MICROSCOPICon BACTERIA TRACE Abnormal NONE SEEN [facility] Comment on above: Performed By: #### U AMIC #### [facility] [address] [place] [address] Vandana Indira Bilirubin Ql (U) Negative Normal NEGATIVE [facility] Comment on above: Performed By: #### U AMIC #### [facility] [address] [place] [address] Vandana Indira CAST NONE SEEN Normal NONE SEEN [facility] Comment on above: Performed By: #### U AMIC #### [facility] [address] [place] [address] Vadnana Indira Clarity (U) CLEAR Normal CLEAR [facility] Comment on above: Performed By: #### U AMIC #### [facility] [address] [place] [address] Vandana Indira Color (U) LT. YELLOW Normal YELLOW [facility] Comment on above: Performed By: #### U AMIC #### [facility] [address] [place] [address] Vandana Indira Crystals LM Nom (Urine sed) NONE SEEN Normal NONE SEEN [facility] Comment on above: Performed By: #### U AMIC #### [facility] [address] [place] [address] Vandana Indira Epithelial cells LM Ql (Urine sed) FEW Abnormal NONE SEEN /RARE [facility] Comment on above: Performed By: #### U AMIC #### [facility] [address] [address] Vandana Indira Glucose Ql (U) Negative Normal NEGATIVE [facility] Comment on above: Performed By: #### U AMIC #### [facility] [address] [address] Vandana Indira Hemoglobin Ql (U) Negative Normal NEGATIVE [facility] Comment on above: Performed By: #### U AMIC #### [facility] [address] [place] [address] Vandana Indira Ketones Ql (U) Negative Normal NEGATIVE [facility] Comment on above: Performed By: #### U AMIC #### [facility] [address] [place] [address] Vandana Indira LEUKOCYTES Negative Normal NEGATIVE [facility] Comment on above: Performed By: #### U AMIC #### [facility] [address] [address] Vandana Indira MUCOUS NONE SEEN Normal NONE SEEN [facility] Comment on above: Performed By: #### U AMIC #### [facility] [address] [place] [address] Vandana Indira Nitrite Ql (U) Negative Normal NEGATIVE [facility] Comment on above: Performed By: #### U AMIC #### [facility] [address] [address] Vandana Indira pH (U) 7.5 [pH] Normal 5-9 [facility] [place] [facility] Comment on above: Performed By: #### U AMIC #### [facility] [place] [facility] [address] [place] [address] Vandana Indira RBC 0-2 Normal 0-2 [facility] [place] [facility] Comment on above: Performed By: #### U AMIC #### [facility] [place] [facility] [address] [place] [address] Vandana Indira SPEC GRAVITY 1.015 Normal 1.005-<=1.025 [facility] Comment on above: Performed By: #### U AMIC #### [facility] [place] [facility] [address] [place], [place] [id number] Vandana Indira UA PROTEIN Negative Normal NEGATIVE/ TRACE [facility] [place] [facility] Comment on above: Performed By: #### U AMIC #### [facility] [place] [facility] [address] [place], [place] [id number] Vandanadave Jacobson Urobilinogen Qn (U) 0.2 {Richard'U}/dL Normal 0.2 - 1. 0 [facility] [place] [facility] Comment on above: Performed By: #### U AMIC #### [facility] [place] [facility] [address] [place], [place] [id number] Vandana Indira WBC 0-2 Abnormal NONE SEEN [facility] [place] [facility] Comment on above: Performed By: #### U AMIC #### [facility] [place] [facility] [address] [place] [address] Vandana Indira CBC AUTO DIFFon 12-17-2019 BASO # 0.0 103/ul Normal 0.0-0.1 [facility] Comment on above: Performed By: #### C BC #### [facility] [place] [facility] [address] [place], [place] [id number] Vandana Indira Basophils/100 WBC (Bld) 0.1 % Critically low 0.2-2.0 [facility] Comment on above: Performed By: #### C BC #### [facility] [place] [facility] [address] [place], [place] [id number] Vandana Indira EO # 0.1 103/ul Normal 0.0-0.7 [facility] [place] [facility] Comment on above: Performed By: #### C BC #### [facility] [place] [facility] [address] [place] [address] Vandana Indira Eosinophils/100 WBC (Bld) 0.9 % Normal 0.9-7.0 [facility] [place] [facility] Comment on above: Performed By: #### C BC #### [facility] [place] [facility] [address] [place], [place] [id number] Vandana Indira Erythrocyte distribution width (RBC) [Ratio] 14.3 % Normal 11.0-15.0 [facility] Comment on above: Performed By: #### C BC #### [facility] [place] [facility] [address] [place] [address] Vandana Indira Hematocrit (Bld) [Volume fraction] 40.5 % Normal 36.0-48.0 [facility] [place] [facility] Comment on above: Performed By: #### C BC #### [facility] [place] [facility] [address] [place] [address] Vandana Indira Hemoglobin (Bld) [Mass/Vol] 13.2 g/dL Normal 12.0-16.0 [facility] [place] [facility] Comment on above: Performed By: #### C BC #### [facility] [place] [facility] [address] [place] [address] Vandana Indira IG # 0.01 10e3/ul Normal 0.00-0.03 [facility] [place] [facility] Comment on above: Performed By: #### C BC #### [facility] [place] [facility] [address] [place] [address] Vandana Indira IG % 0.1 % Normal 0.0-0.5 [facility] [place] [facility] Comment on above: Performed By: #### C BC #### [facility] [place] [facility] [address] [place] [address] Vandana Indira LYMPH # 2.0 103/ul Normal 1.2-3.8 [facility] [place] [facility] Comment on above: Performed By: #### C BC #### [facility] [place] [facility] [address] [place] [address] Vandana Indira Lymphocytes/100 WBC (Bld) 27.9 % Normal 20.5-60.0 [facility] [place] [facility] Comment on above: Performed By: #### C BC #### [facility] [place] [facility] [address] [place] [address] Vandana Lien MANUAL DIFF REQ NO Normal [facility] Comment on above: Performed By: #### C BC #### [facility] [place] [facility] [address] [place], [place] [address] Vandana Indira MCH (RBC) [Entitic mass] 25.7 pg Critically low 26.7-34.0 [facility] Comment on above: Performed By: #### C BC #### [facility] [place] [facility] [address] [place] [address] Vandana Indira MCHC (RBC) [Mass/Vol] 32.6 g/dL Normal 29.9-35.2 [facility] [place] [facility] Comment on above: Performed By: #### C BC #### [facility] [place] [facility] [address] [place], [place] [address] Vandana Jacobson MCV (RBC) [Entitic vol] 78.9 fL Critically low 81.0-99.0 [facility] Comment on above: Performed By: #### C BC #### [facility] [place] [facility] [address] [place], [place] [address] Vandana Jacobson MONO # 0.5 103/ul Normal 0.3-0.8 [facility] [place] [facility] Comment on above: Performed By: #### C BC #### [facility] [place] [facility] [address] [place] [address] Vandana Jacobson Monocytes/100 WBC (Bld) 7.0 % Normal 1.7-12.0 [facility] Comment on above: Performed By: #### C BC #### [facility] [place] [facility] [address] [place] [address] Vandana Jacobson NEUT # 4.5 103/ul Normal 1.4-6.5 [facility] [place] [facility] Comment on above: Performed By: #### C BC #### [facility] [place] [facility] [address] [place], [place] [address] Vandana Jacobson Neutrophils/100 WBC (Bld) 64.0 % Normal 43.0-75.0 [facility] Comment on above: Performed By: #### C BC #### [facility] [place] [facility] [address] [place], [place] [address] Vandana Jacobson Platelet mean volume (Bld) [Entitic vol] 8.9 fL Critically low 9.5-13.5 [facility] [place] [facility] Comment on above: Performed By: #### C BC #### [facility] [place] [facility] [address] [place], [place] [address] Vandana Indira PLT 345 103/ul Normal 150-450 [facility] [place] [facility] Comment on above: Performed By: #### C BC #### [facility] [place] [facility] [address] [place] [address] Vandana Indira RBC 5.13 106/ul Normal 4.20-5.40 [facility] [place] [facility] Comment on above: Performed By: #### C BC #### [facility] [place] [facility] [address] [place], [place] [address] Vandana Jacobson WBC 7.1 103/ul Normal 4.0-11.0 [facility] Comment on above: Performed By: #### C BC #### [facility] [place] [facility] [address] [place], [place] [address] Vandana Jacobson FERRITINon 12-17-2019 Ferritin [Mass/Vol] 27.0 ng/mL Normal 6.2-137.0 [facility] Comment on above: Performed By: #### D JESID #### [facility] [place] [facility] [address] [place], [place] [address] Vandana Jacobson IRONon 12-17-2019 Iron [Mass/Vol] 35.0 ug/dL Critically low 37.0-170.0 [facility] Comment on above: Performed By: #### D JUDI #### [facility] [place] [facility] [address] [place], [place] [address] Vandana Indira PROF 14(COMP METB)on 020 Albumin [Mass/Vol] 3.7 g/dL Normal 3.5-5.0 [facility] Comment on above: Performed By: #### C MP #### [facility] [place] [facility] [address] [place], [place] [address] Vandanadave Jacobson Albumin/Globulin [Mass ratio] 0.9 {ratio} Normal [facility] Comment on above: Performed By: #### C MP #### [facility] [place] [facility] [address] [place], [place] [address] Vandana Indira ALP [Catalytic activity/Vol] 82 U/L Normal 38-126 [facility] [place] [facility] Comment on above: Performed By: #### C MP #### [facility] [place] [facility] [address] [place], [place] [address] Vandana Indira ALT [Catalytic activity/Vol] 21 U/L Normal 9-52 [facility] Comment on above: Performed By: #### C MP #### [facility] [place] [facility] [address] [place], [place] [address] Vandana Indira Anion gap [Moles/Vol] 12.5 mmol/L Normal [facility] Comment on above: Performed By: #### C MP #### [facility] [place] [facility] [address] [place] [id number] Vandana Indira AST [Catalytic activity/Vol] 15 U/L Normal 14-36 [facility] Comment on above: Performed By: #### C MP #### [facility] [place] [facility] [address] [id number] Vandana Indira Bilirubin [Mass/Vol] 0.3 mg/dL Normal 0.2-1.3 [facility] Comment on above: Performed By: #### C MP #### [facility] [place] [facility] [address] [id number] Vandana Indira Calcium [Mass/Vol] 9.5 mg/dL Normal 8.4-10.2 [facility] Comment on above: Performed By: #### C MP #### [facility] [place] [facility] [address] [place] [address] Vandana Indira Chloride [Moles/Vol] 104 mmol/L Normal 98-107 [facility] Comment on above: Performed By: #### C MP #### [facility] [place] [facility] [address] [id number] Vandana Indira CO2 [Moles/Vol] 28.4 mmol/L Normal 22.0-30.0 [facility] Comment on above: Performed By: #### C MP #### [facility] [place] [facility] [address] [id number] Vandana Indira Creatinine [Mass/Vol] 0.69 mg/dL Normal 0.52-1.04 [facility] Comment on above: Performed By: #### C MP #### [facility] [place] [facility] [address] [id number] Vandana Indira EGFR-AF BELARUSIAN >60 Normal >=60 [facility] Comment on above: Performed By: #### C MP #### [facility] [place] [facility] [address] [id number] Vandana Indira EGFR-NON AF BELARUSIAN >60 Normal >=60 [facility] [place] [facility] Comment on above: Performed By: #### C MP #### [facility] [place] [facility] [address] [address] Vandana Indira Globulin (S) [Mass/Vol] 4.1 g/dL Normal [facility] Comment on above: Performed By: #### C MP #### [facility] [place] [facility] [address] [place], [place] [address] Vandana Indira Glucose [Mass/Vol] 94 mg/dL Normal 74-106 [facility] Comment on above: Performed By: #### C MP #### [facility] [place] [facility] [address] [address] Vandana Indira Potassium [Moles/Vol] 3.9 mmol/L Normal 3.4-5.0 [facility] Comment on above: Performed By: #### C MP #### [facility] [place] [facility] [address] [place] [address] Vandana Indira Protein [Mass/Vol] 7.8 g/dL Normal 6.1-8.2 [facility] Comment on above: Performed By: #### C MP #### [facility] [place] [facility] [address] [place] [address] Vandana Indira Sodium [Moles/Vol] 141 mmol/L Normal 137-145 [facility] Comment on above: Performed By: #### C MP #### [facility] [place] [facility] [address] [place] [address] Vandana Indira Urea nitrogen [Mass/Vol] 16.0 mg/dL Normal 7.0-17.0 [facility] Comment on above: Performed By: #### C MP #### [facility] [place] [facility] [address] [place] [address] Vandana Indira Urea nitrogen/Creatinine [Mass ratio] 23.2 mg/mg Normal [facility] Comment on above: Performed By: #### C MP #### [facility] [place] [facility] [address] [place], [place] [address] Vandana Indira PROTIMEon 12-17-2019 INR Coag (PPP) [Relative time] 0.97 {INR} Normal [facility] Comment on above: Performed By: #### D RUGRPD #### [facility] [place] [facility] [address] [place], [place] [address] Vandana Indira INR GUIDELINES SEE BELOW Normal [facility] Comment on above: Result Comment: ABHIJIT RED INR: 2.0 - 3.0 CONDITIONS NOT LISTED BELOW 2.5 - 3.5 FOR PROSTHETIC HEART VALVE REPLACEMENT 2.5 - 3.5 RECURRENT THROMBOSIS Performed By: #### D RUGRPD #### [facility] [place] [facility] [address] [place], [place] [address] Vandana Indira PT Coag (PPP) [Time] 10.3 s Normal 9.0-11.6 [facility] Comment on above: Performed By: #### D RUGRPD #### [facility] [place] [facility] [address] [place] [address] Vandana Indira PT NORMAL PLEASE NOTE: NORMAL RANGE CHANGE 11-24-2013 DUE TO REAGENT LOT CHANGE Normal [facility] Comment on above: Performed By: #### D RUGRPD #### [facility] [place] [facility] [address] [place] [address] Vandanadave Jacobson PTTon 12-17-2019 aPTT Coag (Bld) [Time] 30.7 s Normal 22.3-36.2 [facility] Comment on above: Performed By: #### D RUGRPD #### [facility] [place] [facility] [address] [place] [address] Vandana Indira PTT NORMAL PLEASE NOTE: NORMAL RANGE CHANGE 01-31-2015 DUE TO REAGENT LOT CHANGE Normal [facility] Comment on above: Performed By: #### D RUGRPD #### [facility] [place] [facility] [address] [place] [address] Vandana Indira Vital Signs Date Time Vital Sign Value Performing Clinician Facility 09-14-2024 15:47-0400 Body mass index (BMI) [Ratio] 33.93 kg/m2 [employer] Work Phone: [facility] 09-14-2024 15:47-0400 Body weight 76.2 kg [employer] Work Phone: [facility] 09-14-2024 15:47-0400 Diastolic blood pressure 74 mm[Hg] [employer] Work Phone: [facility] 09-14-2024 15:47-0400 Systolic blood pressure 110 mm[Hg] Newton Raul DO Work Phone: [facility] 09-01-2024 14:27-0400 Body mass index (BMI) [Ratio] 33.98 kg/m2 Sarah Isamar PA Work Phone: [facility] 09-01-2024 14:27-0400 Body weight 76.32 kg Sarah Isamar PA Work Phone: [facility] 09-01-2024 14:27-0400 Diastolic blood pressure 70 mm[Hg] Sarah Isamar PA Work Phone: [facility] 09-01-2024 14:27-0400 Systolic blood pressure 108 mm[Hg] Sarah Isamar PA Work Phone: [facility] 08-11-2024 11:06-0400 Body mass index (BMI) [Ratio] 33.53 kg/m2 Newton Raul DO Work Phone: [facility] 08-11-2024 11:06-0400 Body weight 75.3 kg Newton Raul DO Work Phone: [facility] 08-11-2024 11:06-0400 Diastolic blood pressure 70 mm[Hg] Newton Raul DO Work Phone: [facility] 08-11-2024 11:06-0400 Systolic blood pressure 118 mm[Hg] Newton Raul DO Work Phone: [facility] 07-20-2024 09:34-0400 Body mass index (BMI) [Ratio] 32.52 kg/m2 Yris Castellanos [employer]ODUCTION [employer] Work Phone: [facility] 07-20-2024 09:34-0400 Body weight 73.03 kg Yris Castellanos [employer]ODUCTION [employer] Work Phone: [facility] 07-20-2024 09:34-0400 Diastolic blood pressure 72 mm[Hg] Yris Castellanos PRODUCTION [employer] Work Phone: [facility] 07-20-2024 09:34-0400 Systolic blood pressure 118 mm[Hg] Yris Castellanos NP Work Phone: [facility] 06-06-2024 11:33-0400 Body mass index (BMI) [Ratio] 31.67 kg/m2 Sarah NGUYEN Work Phone: [facility] 06-06-2024 11:33-0400 Body weight 71.12 kg Sarah NGUYEN Work Phone: [facility] 06-06-2024 11:33-0400 Diastolic blood pressure 70 mm[Hg] Sarah NGUYEN Work Phone: [facility] 06-06-2024 11:33-0400 Systolic blood pressure 120 mm[Hg] Sarah NGUYEN Work Phone: [facility] 05-09-2024 10:21-0500 Body mass index (BMI) [Ratio] 31.99 kg/m2 Newton Raul DO Work Phone: [facility] 05-09-2024 10:21-0500 Body weight 71.85 kg Newton Raul DO Work Phone: [facility] 05-09-2024 10:21-0500 Diastolic blood pressure 76 mm[Hg] Newton Raul DO Work Phone: [facility] 05-09-2024 10:21-0500 Systolic blood pressure 122 mm[Hg] Newton Raul DO Work Phone: [facility] 04-07-2024 13:43-0500 Body mass index (BMI) [Ratio] 32.52 kg/m2 Nom Nurse [facility] 04-07-2024 13:43-0500 Body weight 73.03 kg [facility] Nurse [facility] 04-07-2024 13:43-0500 Diastolic blood pressure 72 mm[Hg] Nom Nurse [facility] 04-07-2024 13:43-0500 Systolic blood pressure 118 mm[Hg] Nom Nurse [facility] 01-06-2024 10:50-0400 Body height 149.9 cm Sarah NGUYEN Work Phone: [facility] 01-06-2024 10:50-0400 Body mass index (BMI) [Ratio] 32.47 kg/m2 Sarah Kern PATRICK Work Phone: [facility] 01-06-2024 10:50-0400 Body weight 72.92 kg Sarah Kern PA Work Phone: [facility] 01-06-2024 10:50-0400 Diastolic blood pressure 78 mm[Hg] Sarah Foremaney PA Work Phone: [facility] 01-06-2024 10:50-0400 Systolic blood pressure 118 mm[Hg] Sarah Kern PA Work Phone: [facility] 04-30-2023 10:23-0500 Diastolic blood pressure 84 mm[Hg] PHYSICIAN NO [facility] 04-30-2023 10:23-0500 Heart rate 67 /min PHYSICIAN NO [facility] 04-30-2023 10:23-0500 Respiratory rate 18 /min PHYSICIAN NO [facility] 04-30-2023 10:23-0500 SaO2% (BldA) [Mass fraction] 99 % PHYSICIAN NO [facility] 04-30-2023 10:23-0500 Systolic blood pressure 130 mm[Hg] PHYSICIAN NO [facility] 04-30-2023 08:53-0500 Body temperature 98.3 [degF] PHYSICIAN NO [facility] 04-30-2023 08:12-0500 Inhaled oxygen flow rate 8 L/min PHYSICIAN NO [facility] 04-30-2023 07:44-0500 Body height 152.4 cm PHYSICIAN NO [facility] 04-30-2023 07:44-0500 Body mass index (BMI) [Ratio] 28.7 kg/m2 PHYSICIAN NO [facility] 04-30-2023 07:44-0500 Body weight 66.67 kg PHYSICIAN NO [facility] 04-24-2023 11:55-0500 Diastolic blood pressure 86 mm[Hg] PHYSICIAN NO [facility] 04-24-2023 11:55-0500 Heart rate 65 /min PHYSICIAN NO [facility] 04-24-2023 11:55-0500 Respiratory rate 16 /min PHYSICIAN NO [facility] 04-24-2023 11:55-0500 SaO2% (BldA) [Mass fraction] 100 % PHYSICIAN NO [facility] 04-24-2023 11:55-0500 Systolic blood pressure 119 mm[Hg] PHYSICIAN NO [facility] 04-24-2023 11:07-0500 Body temperature 98 [degF] PHYSICIAN NO [facility] 04-24-2023 10:42-0500 Inhaled oxygen flow rate 8 L/min PHYSICIAN NO [facility] 04-24-2023 08:52-0500 Body height 152.4 cm PHYSICIAN NO [facility] 04-24-2023 08:52-0500 Body mass index (BMI) [Ratio] 29 kg/m2 PHYSICIAN NO [facility] 04-24-2023 08:52-0500 Body weight 67.58 kg PHYSICIAN NO [facility] 04-20-2023 08:56-0500 Body mass index (BMI) [Ratio] 30.09 kg/m2 Dawn Huitron MD Work Phone: [facility] 04-20-2023 08:56-0500 Body weight 67.59 kg Dawn Huitron MD Work Phone: [facility] 04-20-2023 08:56-0500 Diastolic blood pressure 66 mm[Hg] Dawn Huitron MD Work Phone: [facility] 04-20-2023 08:56-0500 Systolic blood pressure 110 mm[Hg] Dawn Huitron MD Work Phone: [facility] Healthcare Encounters Encounter Date Encounter Type Care Provider Facility Start: 09-26-2024 End: 09-26-2024 ambulatory NEWTON RAUL Not Available Start: 09-26-2024 End: 09-26-2024 Bamboo flowsheet Newton Raul DO Work Phone: [facility] Start: 09-26-2024 End: 09-26-2024 Bamboo flowsheet Newton Raul DO Work Phone: [facility] Start: 09-14-2024 End: 09-14-2024 flow sheet Newton Raul DO Work Phone: [facility] Comment on above: Third trimester preg ayanna ([facility]); 30 weeks gestation of ([facility]) Start: 09-14-2024 End: 09-14-2024 ambulatory NEWTON RAUL Not Available Start: 09-03-2024 End: 09-03-2024 Clinisync Result Encounter Generic External Data Provider [facility] External Department Unsolicited Start: 09-03-2024 End: 09-03-2024 Clinisync Result Encounter Generic External Data Provider [facility] External Department Unsolicited Start: 09-01-2024 End: 09-01-2024 flow sheet Sarah NGUYEN Work Phone: [facility] Comment on above: Third trimester preg ayanna ([facility]); 28 weeks gestation of ([facility]); size inconsistent with dates ([facility]); Nonintractable headache, unspecified chronicity pattern, unspecified [...] sheet Newton Raul DO Work Phone: [facility] Comment on above: Second trimester pre gnancy; 25 weeks gestation of ; Diabetes mellitus screening Start: 08-11-2024 End: 08-11-2024 ambulatory NEWTON RAUL Not Available Start: 08-02-2024 End: 08-02-2024 Clinisync Result Encounter Generic External Data Provider [facility] External Department Unsolicited Start: 08-02-2024 End: 08-02-2024 Clinisync Result Encounter Generic External Data Provider [facility] External Department Unsolicited Start: 07-20-2024 End: 07-20-2024 Bamboo flowsheet Yris Castellanos NP Work Phone: [facility] Start: 07-20-2024 End: 07-20-2024 Bamboo flowsheet Yris Castellanos NP Work Phone: [facility] Start: 07-20-2024 End: 07-20-2024 flow sheet Yris Castellanos PRODUCTION MINER Work Phone: [facility] Comment on above: Second trimester pre [...] Patient encounter procedure Sarah NGUYEN Work Phone: [facility] Start: 06-06-2024 End: 06-06-2024 Periodic preventive med est patient 18-39 yrs Sarah NGUYEN Work Phone: [facility] Comment on above: 16 weeks [...] Start: 11-13-2023 End: 11-13-2023 ambulatory PHYSICIAN NO [facility] Work Phone: Start: 11-13-2023 End: 11-13-2023 Departed Referred PHYSICIAN NO [facility] Work Phone: Start: 11-12-2023 End: 11-12-2023 Clinisync Result Encounter Newton Raul DO Work Phone: [facility] External Department Unsolicited Start: 11-12-2023 End: 11-12-2023 Clinisync Result Encounter Newton Raul DO Work Phone: [facility] Unsolicited Start: 04-29-2023 End: 04-30-2023 Patient encounter procedure PHYSICIAN NO [facility] Start: 04-29-2023 End: 04-30-2023 ambulatory PHYSICIAN NO [facility] Work Phone: Start: 04-24-2023 End: 04-24-2023 Admission to same day surgery center PHYSICIAN NO [facility] [place] Start: 04-24-2023 End: 04-24-2023 ambulatory PHYSICIAN NO [facility] Work Phone: Start: [...] BURK Facility:[facility]1 Start: 09-12-2020 End: 09-13-2020 ambulatory [employer] ALINA ASHERHOLZ Facility:[facility]1 Start: 09-10-2020 End: 09-11-2020 ambulatory KOFI CURRIE Facility:[facility] Start: 09-06-2020 End: 09-06-2020 ambulatory [employer] ALINA AICHHOLZ Facility:[facility]1 Start: 08-31-2020 End: 08-31-2020 ambulatory [employer] HELPER ALINA AICHHOLZ Facility:[facility] Start: 08-01-2020 End: 08-01-2020 ambulatory [employer] HELPER ALINA AICHHOLZ Facility:[facility] Start: 12-17-2019 End: 12-18-2019 ambulatory [employer] ALINA AICHHOLZ Facility:[facility]1 Procedures Date Procedure Procedure Detail Performing Clinician Start: 09-14-2024 Urnls dip stick/tabl et rgnt non-auto w/o micrscp Newton Raul DO Work Phone: Start: 09-03-2024 GLUCOSE TOLERANCE 3 HOUR Newton Raul DO Work Phone: Start: 09-01-2024 Urnls dip stick/tabl et rgnt [...] on above: Result Comment: PERF ORMED BY: [facility] [address] [place] [address] PATHOLOGIST MANAGER STYLIST CHUY PALOMO M.D. 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 Approach [employer] ALINA SCHMITZ Plan of Treatment Date Care Activity Detail Author Start: 11-07-2024 Influenza vaccination N [facility] Start: 09-26-2024 End: 09-26-2024 Patient encounter procedure [facility] Comment on above: Arrived Start: 09-14-2024 End: 09-14-2024 Patient encounter procedure 09/14/2024 3:30 PM EDT Routine [facility] [address] [place] [address] Newton Carter, DO [address] [place] [address] [facility] Start: 09-14-2024 End: 09-14-2024 Professional / ancillary services management 09/14/2024 3:00 PM EDT Ancillary Procedure [facility] [address] [facility] [place] [place] [address] [facility] Start: 09-01-2024 End: 09-01-2024 Patient encounter procedure [facility] Comment on above: Third trimester preg ayanna ([facility]); 28 weeks gestation of ([facility]) Start: 09-01-2024 End: 01-01-2025 US for US OB follow up transabdominal approach Imaging Routine Nonintractable headache, unspecified chronicity pattern, unspecified headache type Expected: 09/01/2024, Expires: 01/01/2025 [facility] Work Phone: Comment on above: [...] Expected: 08/11/2024 (Approximate), Expires: 08/11/2025 [facility] Comment on above: Expected: 08/11/2024 (Approximate), [...] Routine [facility] [address] [place] [address] Yris Castellanos NP [address] [place] [phone] Arrived [facility] Comment on above: Arrived Start: 07-11-2024 End: 07-11-2024 Patient encounter procedure 07/11/2024 11:00 AM EDT Office Visit [facility] [address] [place] [address] Sarah Kern PA [address] [place], [place] [id number] [facility] Start: 07-04-2024 End: 07-04-2024 Patient encounter procedure 07/04/2024 11:10 AM EDT Routine [facility] [address] [place] [address] Newotn Carter, DO [address] [facility] [place] [address] [facility] Start: 07-04-2024 End: 07-04-2024 Professional / ancillary services management 07/04/2024 10:00 AM EDT Ancillary Procedure [facility] [address] [place] [address] [facility] Start: 06-20-2024 End: 06-20-2024 Patient encounter procedure 06/20/2024 2:20 PM EDT Office Visit [facility] [address] [place] [address] Alina Schmitz, MARISSA [address] [place] [address] [facility] Start: 06-06-2024 End: 06-06-2025 US for US OB 14+ weeks anatomy scan Imaging Routine Screening, , for anatomic survey Expected: 06/06/2024, Expires: 06/06/2025 [facility] Comment on above: Expected: 06/06/2024 , [...] gestational age Expected: 04/07/2024 (Approximate), Expires: 04/07/2025 [facility] Comment on above: Expected: 04/07/2024 (Approximate), Expires: 04/07/2025 Start: 04-07-2024 End: 04-07-2025 Blood type and Indirect antibody screen panel - Blood Type and screen Lab Routine Missed menses , unspecified gestational age Expected: 04/07/2024 (Approximate), Expires: 04/07/2025 [facility] Work Phone: Comment on above: Expected: 04/07/2024 (Approximate), Expires: 04/07/2025 Start: 04-07-2024 End: 04-07-2025 Drugs of abuse panel - Urine by Screen method Rapid drug screen, urine Lab Routine , unspecified gestational age Encounter for supervision of normal first in first trimester Expected: 04/07/2024 (Approximate), Expires: 04/07/2025 [facility] Comment on above: Expected: 04/07/2024 (Approximate), Expires: 04/07/2025 Start: 01-06-2024 End: 01-06-2024 Patient encounter procedure 01/06/2024 10:40 AM EDT Office Visit [facility] [address] [place] [phone] Sarah Kern PA [address] [facility] [place] [address] Arrived [facility] Comment on above: Arrived Start: 11-13-2023 End: 11-13-2023 Patient encounter procedure 11/13/2023 9:30 AM EDT Procedure Visit [facility] Newton Carter DO [address] [place] [address] [facility] Start: 11-08-2023 Influenza vaccination Influenza Vacc ine (#1) [facility] Start: 04-30-[address] [facility] Start: 04-24-[address] [facility] Start: 04-24-2023 End: 04-24-[address] [facility] Start: 04-20-2023 End: 04-20-2024 hCG, quantitative [facility] Work Phone: Comment on above: Ordered: 04/20/2023 Expected: 04/20/2023 (Approximate), Expires: 04/20/2024 Start: 04-13-2023 End: 04-13-2023 Patient encounter procedure 04/13/2023 9:45 AM EST Office Visit [facility] [address] [place] [address] Dawn Huitron MD [address] [place] [address] [facility] Start: 04-13-2023 End: 04-13-2023 Professional / ancillary services management 04/13/2023 9:30 AM EST Ancillary Procedure [facility] [address] [place] [address] [facility] Bacteria identified in Urine by Culture Urine culture Microbiology Routine Missed menses Ordered: 04/07/2024 [facility] Comment on above: Ordered: 04/07/2024 Basophils [#/volume] in Blood by Automated count [facility] Basophils/100 leukocytes in Blood by Automated [facility] CBC W Auto Different ial panel - Blood CBC and differential Lab Routine Missed menses , unspecified gestational age Ordered: 04/07/2024 [facility] Comment on above: Ordered: 04/07/2024 CHLAMYDIA TRACHOMATI S (GENITO/STI) CHLAMYDIA TRACHOMATIS (GENITO/STI) Lab Routine Exposure to STD Ordered: 06/06/2024 [facility] Comment on above: Ordered: 06/06/2024 Cytology Cervical or vaginal smear or scraping study Pap Smear Pathology and Cytology Routine Well woman exam with routine gynecological exam Ordered: 06/06/2024 [facility] Comment on above: Ordered: 06/06/2024 Eosinophils/100 leukocytes in Blood by Automated count [facility] Erythrocyte distribution width [Ratio] by Automated count [facility] Erythrocytes [#/volu me] in Blood [facility] Hematocrit [Volume Fraction] of Blood [facility] Hemoglobin [Mass/volume] in Blood [facility] Hemoglobin A1c/Hemoglobin.total in Blood Hemoglobin A1c Lab Routine Missed menses , unspecified gestational age Ordered: 04/07/2024 [facility] Comment on above: Ordered: 04/07/2024 Hepatitis B virus surface Ag [Presence] in Serum or Plasma by Immunoassay Hepatitis B surface antigen Lab Routine Missed menses , unspecified gestational age Ordered: 04/07/2024 [facility] Comment on above: Ordered: 04/07/2024 Hepatitis C virus Ab [Presence] in Serum or Plasma by Immunoassay Hepatitis C antibody Lab Routine Missed menses , unspecified gestational age Ordered: 04/07/2024 [facility] Comment on above: Ordered: 04/07/2024 HIV-1/HIV-2 antigen/antibody combination immunoassay HIV-1 and HIV-2 antibodies Lab Routine Missed menses , unspecified gestational age Ordered: 04/07/2024 [facility] Comment on above: Ordered: 04/07/2024 Leukocytes [#/volume ] corrected for nucleated erythrocytes in Blood by Automated coun [facility] Leukocytes [#/volume ] in Blood [facility] Lymphocytes [#/volum e] in Blood by Automated count [facility] Lymphocytes/100 leukocytes in Blood by Automated [facility] MCH [Entitic mass] b y Automated count [facility] MCHC [Mass/volume] b y Automated [facility] MCV [Entitic volume] by Automated [facility] Measurement of gluco se 1 hour after glucose challenge for glucose tolerance test GTT, 1 hour Lab Routine Insulin resistance complicating Ordered: 05/09/2024 [facility] Work Phone: Comment on above: Ordered: 05/09/2024 Monocytes [#/volume] in Blood by Automated count [facility] Monocytes/100 leukocytes in Blood by Automated [facility] MYCOPLASMA/UREAPLASM A PANEL MYCOPLASMA/UREAPLASMA PANEL Lab Routine Vaginal discharge Ordered: 04/20/2023 [facility] Comment on above: Ordered: 04/20/2023 Neisseria gonorrhoea e DNA [Presence] in Unspecified specimen by RAMA with probe detection Neisseria gonorrhea DNA probe, direct Lab Routine Exposure to STD Ordered: 06/06/2024 [facility] Comment on above: Ordered: 06/06/2024 Neutrophils [#/volum e] in Blood by Automated count [facility] Neutrophils/100 leukocytes in Blood by Automated count [facility] Nucleated erythrocyt es [Presence] in Blood by Automated count [facility] Patient Education [facility] Work Phone: Patient referral [facility] Work Phone: Platelet mean volume [Entitic volume] in Blood by Automated count [facility] Platelets [#/volume] in Blood [facility] Reagin Ab [Presence] in Serum by RPR RPR Lab Routine Missed menses , unspecified gestational age Ordered: 04/07/2024 [facility] Comment on above: Ordered: 04/07/2024 Rubella antibody, IgG Rubella an tibody, IgG Lab Routine Missed menses , unspecified gestational age Ordered: 04/07/2024 [facility] Comment on above: Ordered: 04/07/2024 SURESWAB(R) ADVANCED VAGINITIS PLUS, TMA SURESWAB(R) ADVANCED VAGINITIS PLUS, TMA Pathology and Cytology Routine Vaginal discharge Ordered: 06/06/2024 [facility] Work Phone: Comment on above: Ordered: 06/06/2024 Payers Date Payer Category Payer Self-pay 2023 [facility] BCBS [id number] 2023 Unknown BCBS BCBS [id number] 2023-Present [phone] [address] [place] [address] [id number] 2023 Unknown [id number] 1998 Unknown [id number] 2.16.840.1.636304.3.579.2. 593 1998 Unknown [id number] 2.16.840.1.261285.3.579.2. 593 1998 Unknown [id number] 2.16.840.1.219046.3.579.2. 593 1998 Unknown [id number] 2.16.840.1.999024.3.579.2. 593 1998 Unknown [id number] 2.16.840.1.906335.3.579.2. 593 1998 Unknown [id number] 2.16.840.1.316449.3.579.2. 593 1998 Unknown [id number] 2.16.840.1.686105.3.579.2. 593 1998 Unknown [id number] 2.16.840.1.218429.3.579.2. 593 1998 Unknown [id number] 2.16.840.1.071064.3.579.2. 593 1998 Unknown [id number] 2.16.840.1.582752.3.579.2. 1259 1998 Unknown [id number] 2.16.840.1.010906.3.579.2. 1259 1998 Unknown [id number] 2.16.840.1.781207.3.579.2. 1259 1998 Unknown [id number] 2.16.840.1.548775.3.579.2. 1259 1998 Unknown [id number] 2.16.840.1.220702.3.579.2. 1259 1998 Unknown [id number] 2.16.840.1.382083.3.579.2. 1259 1998 Unknown [id number] 2.16.840.1.862904.3.579.2. 9 1998 Unknown [id number] 2.16.840.1.640862.3.579.2. 1259 1998 Unknown [id number] 2.16.840.1.694292.3.579.2. 1259 1998 Unknown [id number] 2.16.840.1.533400.3.579.2. 1259 1998 Unknown [id number] 2.16.840.1.124982.3.579.2. 1259 1959 Unknown [id number] 1959 Unknown [id number] Unknown [id number] 2.16.840.1.706273.3.579.2. 531 Unknown [id number] 2.16.840.1.178248.3.579.2. 531 Unknown [id number] 2.16.840.1.156469.3.579.2. 531 Social History Date Type Detail Facility Start: 08-13-2022 End: 04-30-2023 Tobacco smoking status [facility] Never smoked tobacco [facility] Start: 08-13-2022 Tobacco use and exposure Smokeless tobacco non-user [facility] Start: 04-07-2023 End: 09-14-2024 Alcohol intake Ex-drinker (finding) [facility] Start: 08-13-2022 End: 04-13-2023 History of Social function [facility] Start: 08-13-2022 End: 04-13-2023 Tobacco use panel [facility] Start: 08-13-2022 Alcohol Comment none with [facility] Start: 2000 Sex Assigned At Not on file [facility] The thought of harmi ng myself has occurred to me Never [facility] Start: 2000 Sex Assigned At Female F [facility] How often to you hav e a [...] Facility 04-29-2023 Functional status [facility] at [facility] Work Phone: Mental Status Date Assessment Result Facility 04-29-2023 Cognitive function Cognitive Sta tus Patient at [facility] Work Phone: Clinical Notes 04-20-2023 to 09-14-2024 Yris Castellanos NP - 09/14/2024 3:40 PM PATRICK Mitchell - 09/01/2024 2:30 PM PATRICK Mitchell - 08/11/2024 10:40 AM EDTYris Castellanos NP - 07/20/2024 9:30 AM EDT Note Date & Type Note Facility 09-14-2024 History of Presen t illness Narrative Reason [...] nursing note reviewed. Exam conducted with a software intern present. Vitals: Estimated body mass index is 33.93 kg/m as calculated from the following: Height as of 01/06/24: 4' 11 . Weight as of this encounter: 168 lb. BP: 110/74 Patient's last menstrual period was 01/30/2024. ASSESSMENT & PLAN ICD-10-CM 1. Third trimester ([facility]) Z34.93 POCT urinalysis dipstick manually resulted 2. 30 weeks gestation of ([facility]) Z3A.30 POCT urinalysis dipstick manually resulted Return OB: Patient presents today for a routine obstetrics appointment. Patient is currently 30w2d . Patient states she is doing well [...] week for routine OB appointment. Documented by Yris Castellanos NP on behalf of: Newton Carter DO documented in this encounter [facility] 09-01-2024 History of Presen t illness Narrative [...] ASSESSMENT & PLAN ICD-10-CM 1. Third trimester ([facility]) Z34.93 POCT urinalysis dipstick manually resulted 2. 28 weeks gestation of ([facility]) Z3A.28 3. size inconsistent with dates ([facility]) O26.849 magnesium oxide (Mag-Ox) 400 MG tablet [...] of: PATRICK Cowart documented in this encounter [facility] 08-11-2024 History of Presen t illness Narrative [...] Newton Carter DO documented in this encounter [facility] 07-20-2024 History of Presen t illness Narrative [...] nursing note reviewed. Exam conducted with a software intern present. Vitals: Estimated body mass index is [...] Yris Castellanos NP documented in this encounter [facility] 06-06-2024 History of Presen t illness Narrative [...] nursing note reviewed. Exam conducted with a software intern present. Vitals: Estimated body mass index is [...] of: PATRICK Cowart documented in this encounter [facility] 05-09-2024 History of Presen t illness Narrative [...] nursing note reviewed. Exam conducted with a software intern present. Vitals: Estimated body mass index is [...] or undercooked meat, and stay away from [facility]. Patient has been consulted regarding any [...] Newton Carter DO documented in this encounter [facility] 04-07-2024 History of Presen t illness Narrative [...] or undercooked meat, and stay away from [facility]. Patient has also been advised to [...] Cayla Mayorga MA documented in this encounter [facility] 01-06-2024 History of Presen t illness Narrative [...] after having a D&C performed at [facility] with Dr. Carter. Pathology results was [...] of: PATRICK Cowart documented in this encounter [facility] 04-30-2023 History and physical note Note Date/Time April 29, 2023 10:09pm [facility] [address] [place] [address] PROCESSING TECHNICIAN History & Physical Signed Patient: Sarah Arce MR#: [id number] : 2000 Acct:[id number] Age/Sex: 23 / F Adm Date: 4 Loc: Room: [address] [place] [address] Type: REG CLI Attending Dr: Dawn Huitron MD Copies to: NO FAMILY PHYSICIAN Dawn Huitron MD-[facility] Date of Service: 04/29/2023 [employer] [facility] - HPI History of Present Illness Chief [...] negative unless noted below or in HPI [facility] Medical History (Updated 04/29/23 @ 22:08 [...] mls @ 125 mls/hr IV .Q8H [facility] Stop: 04/28/24 16:59 Last Admin: 04/29/23 17:50 Dose: 125 mls/hr Cefazolin Sodium (Ancef) 2 gm in 50 mls @ 100 mls/hr IV Q8H [facility] Last Admin: 04/29/23 17:51 Dose: 100 mls/hr Oxytocin 40 unit/ Lactated (Ringer's) 504 mls @ 150 mls/hr IV .Q3H22M ONE; Protocol Stop: 04/30/23 02:21 Misoprostol (Misoprostol 200 Mcg Tablet) 800 mcg VAGINAL Q4H DUTCH Stop: 04/30/23 02:31 [employer] - Exam Physical Exam Vital signs: Temp [...] Routine Psychiatric Exam Psychiatric: Present normal affect [employer] - Results Laboratory Results - Last 48 hrs. 04/29/23 20:27: Blood Type Recheck A Positive 04/29/23 17:45: HCG, Quant 3230.00 04/29/23 17:31: Corrected WBC 13.6 H, Uncorrected WBC Count 13.6 H, RBC 4.93, Hgb 13.3, Hct 39.8, MCV 80.8, MCH 27.0, MCHC 33.5, RDW 13.9, Plt Count 369, MPV 7.0, Neut % (Auto) 77.6, Lymph % (Auto) 17.0, Carbon % (Auto) 4.0, Eos % (Auto) 1.1, Baso % (Auto) 0.3, Nucleat RBC Rel Count 0.2, Neut # (Auto) 10.6 H, Lymph #(Auto) 2.3, Carbon # (Auto) 0.5, Eos # (Auto) 0.2, Baso # (Auto) 0.0, Blood Type APositive, Antibody Screen Negative Diagnostic Imaging Comments: 2.1 cm uterine complex with vascularization, essentially unchanged from yesterday [employer] - A/P (1) Vaginal bleeding: Plan Failed Cytotec evacuation of uterine tissue Suction D&C D&C Documented By: CHUCK Astorga 04/29/23 22 06 Signed By: <Electronically signed by CHUCK Huitron> 04/30/23 0702 [facility] Work Phone: 1(216) 464-247402-12-2024 History of Present illness Narrative* Dawn Huitron [...] impossible D&C on Thursday documented in this [facility] note* Diagnosis Missed Bleeding in early Unspecified hemorrhage in early , unspecified as to episode of care Vaginal discharge Leukorrhea, not specified as infective [facility] Work Phone: Evaluation note* Diagnosis Onset Date Resolution Status Vaginal bleeding acute [facility] Work Phone: Evaluation note* Diagnosis Encounter for postoperative care Encounter for weight management documented in this encounter [facility]* Diagnosis Missed menses , unspecified gestational age Encounter for supervision of normal first in first trimester Nausea and vomiting in Unspecified vomiting of , unspecified as to episode of care [facility]* Diagnosis First trimester state, incidental 12 weeks gestation of Insulin resistance complicating documented [facility]* Diagnosis 16 weeks gestation of Second trimester state, incidental Screening, , for anatomic survey Encounter for anatomic survey Exposure to STD Vaginal discharge Leukorrhea, not specified as infective Well woman exam with routine gynecological exam Routine gynecological examination documented in this encounter [facility]* Diagnosis Second trimester state, incidental 22 weeks gestation of Encounter for screening for cervical length documented in this [facility]* Diagnosis Second trimester state, incidental 25 weeks gestation of Diabetes mellitus screening Screening for diabetes mellitus documented in this encounter [facility]* Diagnosis Third trimester ([facility]) state, incidental 28 weeks gestation of ([facility]) size inconsistent with dates ([facility]) Nonintractable headache, unspecified chronicity pattern, unspecified headache type documented in this encounter [facility]* Diagnosis Third trimester ([facility]) state, incidental 30 weeks gestation of ([facility]) [facility] instructions Additional Instructions SPECIAL INSTRUCTIONS Call for heavy bleeding FOLLOW UP Thursday [facility] Work Phone: Summary Purpose Family History No [...] and content) DATE CREATED AUTHOR 10/08/2020 [facility] pital DATE CREATED AUTHOR AUTHOR'S ORGANIZ ATION 11/23/2023 [facility] DATE CREATED AUTHOR AUTHOR'S ORGANIZ ATION 09/28/2024 [facility] d[facility] Specialists EPIC Reason for Visit (unrecogniz ed section and content) Reason Comments Care Reason Comments Post-op Visit Reason Comments Amenorrhea Reason Comments Routine Visit Care Teams (unrecognized sec tion and content) Snow Shoveler Relationship Specialty Start Date End Date Unallocated, [facility] Provider [address] [place] [address] PCP - General Family Medicine 04/13/23 Team [...] November 13, 2023 End: November 13, 2023 Snow Shoveler Relationship Specialty Start Date End Date Unallocated, Sondra Silverio MD [facility] [facility] [place] [address] PCP - General Family Medicine 04/13/23 Snow Shoveler Relationship Specialty Start Date End Date Unallocated, Sondra Silverio MD Critical [facility] [address] PCP - General Family Medicine 04/13/23 Snow Shoveler Relationship Specialty Start Date End Date Unallocated, Sondra Silverio MD [facility] [place] [address] PCP - General Family Medicine 04/13/23 Snow Shoveler Relationship Specialty Start Date End Date Unallocated, Sondra Silverio MD [facility] [place] [address] PCP - General Family Medicine 04/13/23 Snow Shoveler Relationship Specialty Start Date End Date Unallocated, Sondra Silverio MD [facility] [place] [address] PCP - General Family Medicine 04/13/23 Snow Shoveler Relationship Specialty Start Date End Date Angel Seay MD [address] [place] [address] PCP - General Family Medicine 01/26/24 Alina Schmitz NP [address] [place] [address] Nurse Practitioner Family Medicine 01/26/24 Snow Shoveler Relationship Specialty Start Date End Date Angel Seay MD [address] [place] [address] PCP - General Family Medicine 01/26/24 Alina Schmitz NP [address] [place] [address] Nurse Practitioner Family Medicine 01/26/24 Snow Shoveler Relationship Specialty Start Date End Date Angel Seay MD [address] [place] [address] PCP - General Family Medicine 01/26/24 Alina Schmitz NP [address] [place] [address] Nurse Practitioner Family Medicine 01/26/24 Snow Shoveler Relationship Specialty Start Date End Date Angel Seay MD [address] [place] [address] PCP - General Family Medicine 01/26/24 Alina Schmitz NP [address] [place] [address] Nurse Practitioner Family Medicine 01/26/24 Snow Shoveler Relationship Specialty Start Date End Date Angel Seay MD [address] [place] [address] PCP - General Family Medicine 01/26/24 Alina Schmitz NP [address] [place] [address] Nurse Practitioner Family Medicine 01/26/24 Snow Shoveler Relationship Specialty Start Date End Date Angel Seay MD [address] [place] [address] PCP - General Family Medicine 01/26/24 Alina Schmitz NP [address] [place] [address] Nurse Practitioner Family Medicine 01/26/24 Snow Shoveler Relationship Specialty Start Date End Date Angel Seay MD [address] [place] [address] PCP - General Family Medicine 01/26/24 Alina Schmitz NP [address] [place] [address] Nurse Practitioner Family Medicine 01/26/24 Snow Shoveler Relationship Specialty Start Date End Date Angel Seay MD [address] [place] [address] PCP - General Family Medicine 01/26/24 Alina Schmitz NP [address] [place] [address] Nurse Practitioner Family Medicine 01/26/24 Snow Shoveler Relationship Specialty Start Date End Date Angel Seay MD [address] [place] [address] PCP - General Family Medicine 01/26/24 Alina Schmitz NP [address] [place] [address] Nurse Practitioner Family Medicine 01/26/24 Snow Shoveler Relationship Specialty Start Date End Date Angel Seay MD [address] [place] [address] PCP - General Family Medicine 01/26/24 Alina Schmitz NP [address] [place] [address] Nurse Practitioner Family [facility] 01/26/24 Snow Shoveler Relationship Specialty Start Date End Date Angel Seay MD [address] [place] [address] PCP - General Family [facility] 01/26/24 Alina Schmitz NP [address] [place] [address] Nurse Practitioner Family [facility] 01/26/24 Snow Shoveler Relationship Specialty Start Date End Date Angel Seay MD [address] [place] [address] PCP - General Family Medicine 01/26/24 Alina Schmitz NP [address] [place] [address] Nurse Practitioner Family Medicine 01/26/24 Goals (unrecognized [...] BE BASED ON THE PRIMARY CLINICAL RECORDS. [facility] [employer] [facility]. provides no warranty or guarantee of the accuracy or completeness of information in this document.
--- OUTSIDE RECORDS SUMMARY | 2024-10-09 16:39 | XMS_ITS | Encounter Summary ---
Author Organization [facility] Address [address] [place] [address] Care Team Providers Care City Collector Name Role Phone Unallocated, Noms Provider Primary Care Provi kristopher Angel Seay MD Primary Care Provider Alina Schmitz NP Unavailable [phone] Encounter Details Date Type Department Care Team (Late st Contact Info) Description 04/30/2023 External Result Encounter [facility] External Department Unsolicited Dawn Huitron MD [address] [facility] [address] [place] [address] Social History Tobacco Use Types Packs/Day Years Used Date Smoking Tobacco: Never Smokeless Tobacco: Never Alcohol Use Standard Drinks/Week Comments Not Currently 0 (1 standard drink = 0.6 oz pur e alcohol) none with PHQ-2 Answer Date Recorded Patient Health Questionnaire-2 Score 0 04/29/2023 [place] Depression Scale Answer Date Recorded [place] Depression Scale Total 0 04/13/2023 The thought [...] Info) Description 10/10/2024 10:50 AM EDT Routine [facility] [address] [place] [address] [place] [address] Sarah Penn PA [address] [place] [address] [place] [address] documented as of this encounter Procedures Procedure Name Priority Date/Time Associated Diagnosis Comments US PELVIS TRANSVAGINAL 04/30/2023 9:33 AM EST documented in this encounter Results * US pelvis transvaginal (04/30/2023 9:33 AM EST) Anatomical Region Laterality Modality Pelvis Ultrasound 04/30/2023 9:33 AM EST Impressions 04/30/2023 9:39 AM EST 22 mm thick endometrial complex. Impression dictated by: Usama Peña M.D.04/30/2023 9:37 AM Dictation Location: [place] [address] Tech: Anca Horn Transcribed By: PWS 04/30/23 0937 Dictated By: Usama Peña DO 04/30/2333 Signed By: <Electronically signed by Usama Peña DO in OV> 04/30/23 0937 Narrative 04/30/2023 9:39 AM EST [facility] Main [place] [id number] Ultrasound Report Signed Patient: Sarah Arce MR#: [id number] : 2000 Acct:[id number] Age/Sex: 23 / F ADM Date: 04/29/23 Loc: Room: [address] [place] [address] Type: REG CLI Attending Dr: Dawn Huitron MD Ordering Provider: Dawn Huitron MD-[facility] Date of Service: 04/30/23 US/US pelvic complete: D and C scheduled ([id number]) US/US transvaginal: PRODUCTS OF CONCEPTION WITH PRIOR [...] Procedure Note Radiology, Radiologist, - 04/30/2023 [facility] Main [place] [address] [place] [address] Ultrasound Report Signed Patient: Aura Arce#: [id number] : 2000Acct:[id number] Age/Sex: 23 / FADM Date: 04/29/23 Loc: Room: [id number]: REG CLI Attending Dr: Dawn Huitron MD Ordering Provider: Dawn Huitron MD-[facility] Date of Service: 04/30/23 US/US pelvic complete: D and C scheduled ([id number]) US/US transvaginal: PRODUCTS OF CONCEPTION WITH PRIOR [...] Usama Peña M.D.04/30/2023 9:37 AM Dictation Location: [place] [address] Tech: Anca Kory Transcribed By: GISSEL 04/30/2337 Dictated By: Usama Peña DO 04/30/23 0933 Signed By: <Electronically signed by Usama Peña DO in OV> 04/30/23 0937 us Dawn Huitron MD IMG US PROCEDURES Final Result documented in this encounter Visit Diagnoses Not on filedocumented in this encounter Care Teams City Collector Relationship Specialty Start Date End Date Unallocated, Noms Provider, [place] [address] PCP - General Family Medicine 04/13/23 01/25/24 Angel Seay MD [address] [place] [phone] PCP - General Family Medicine 01/26/24 Alina Schmitz NP [address] [place] [phone] Nurse Practitioner Family Medicine 01/26/24 documented as of this encounter
--- OUTSIDE RECORDS SUMMARY | 2024-10-09 16:39 | XMS_ITS | Encounter Summary ---
Author Organization [facility] [employer] [facility] tem Address [id number] [address] [place] [address] Care Team Providers Care Manager Media Name Role Phone No Pcp, No Pcp Primary Care Provider Unavailabl e Encounter Details Date Type Department Care Team (Late st Contact Info) Description 07/23/2020 Telephone Maternal- Medicine at [facility] [address] [facility] [place] [phone] Rita Pena LPN Social History Tobacco Use [...] filedocumented in this encounter Care Teams Manager Media Relationship Specialty Start Date End Date No Pcp, [place] [address] PCP - General Family Medicine 08/15/22 documented as of this encounter
--- OUTSIDE RECORDS SUMMARY | 2024-10-09 16:39 | XMS_ITS | Encounter Summary ---
Author Organization [facility] Address [address] [place] [address] Care Team Providers Care Application Counselor Name Role Phone Angel Seay MD Primary Care Provider Alina Schmitz NP Unavailable [phone] Encounter Details Date Type Department Care Team (Late st Contact Info) Description 08/02/2024 Abstract [facility] [address] [facility] [place] [phone] Newton Carter DO [address] [facility] [place] [address] Social History Tobacco Use Types Packs/Day Years [...] Recorded Patient Health Questionnaire-2 Score 0 04/29/2023 [place] Depression Scale Answer Date Recorded [place] Depression Scale Total 0 04/13/2023 The thought [...] AM EDT Routine [facility] [address] [facility] [place] [address] Sarah Penn PA [address] [facility] [place] [address] documented as of this encounter Visit Diagnoses Not on filedocumented in this encounter Care Teams Application Counselor Relationship Specialty Start Date End Date Angel Seay MD [address] [place] [phone] PCP - General Family Medicine 01/26/24 Alina Schmitz NP [address] [place] [phone] Nurse Practitioner Family Medicine 01/26/24 documented as of this encounter
[2024-10-09 16:50] VITALS: BP 105/74; PULSE 110; TEMP 36.6
[2024-10-09 16:52] LABS: Glucose Urine UA NEGATIVE (NEGATIVE)
[2024-10-09 17:06] LABS: Crystals Seen? None Seen #/HPF (None Seen)
[2024-10-09 17:07] LABS: Cast Seen? NONE SEEN #/LPF (NONE SEEN); Urine Culture Indicated YES-LC
[2024-10-09] MEDS: NITROFURANTOIN MONOHYD/MAC-CRST 100 MG CAPSULE PO (17:36)
== END 2024-10-09 17:45 | disposition home or self-care (01) ==
LOC: FBC 16:36
PROVIDERS: Admitting Provider Obstetrics & Gynecology; PCP Nurse Practitioner; Visit Provider Obstetrics & Gynecology
DX: O26.893 Other specified pregnancy related conditions, third trimester (principal); R10.9 Unspecified abdominal pain; Z3A.33 33 weeks gestation of pregnancy
CPT/HCPCS: 59025; 81001; 87077; 87086; 87186; G0378; G0379

== ENCOUNTER 2024-10-25 19:01 | Outpatient (REF) | payer BC, SELFPAY ==
--- OUTSIDE RECORDS SUMMARY | 2024-10-25 19:08 | XMS_ITS | CCD ---
Author Organization [facility] CliniSyok Care Team Providers Care Senior Report Developer Name Role Phone AICHHOLZ, PUMP INSTALLATION AND SERVICER ALINA Primary Care Unavailable KOFI CURRIE Consulting Unavailable KOFI CURRIE Admitting Unavailable KOFI CURRIE Attending Unavailable AICHHOLZ, PUMP INSTALLATION AND SERVICER ALINA Primary Care Unavailable QUIQUE, DR KECIA Devi Consulting Unavailable KOFI CURRIE Attending Unavailable KOFI CURRIE Admitting Unavailable KOFI CURRIE Consulting Unavailable KOFI CURRIE Attending [facility]available [facility] DR MADRID Referring Unavailable AICHHOLZ, PUMP INSTALLATION AND SERVICER ALINA Primary Care Unavailable KOFI CURRIE Consulting Unavailable KOFI CURRIE Admitting Unavailable KARASIK, DR STRONG Attending Unavailable AICHHOLZ, PUMP INSTALLATION AND SERVICER ALINA Primary Care Unavailable KARASIK, DR STRONG Consulting Unavailable KARASIK, DR STRONG Admitting Unavailable KARASIK, DR STRONG Procedure Practitioner Unava ilable KOFI CURRIE Consulting Unavailable KOFI CURRIE Attending Unavailable AICHHOLZ, PUMP INSTALLATION AND SERVICER ALINA Primary Care Unavailable KOFI CURRIE Admitting Unavailable AICHHOLZ, PUMP INSTALLATION AND SERVICER ALINA Primary Care Unavailable KARASIK, DR STRONG Consulting Unavailable KARASIK, DR STRONG Admitting Unavailable KARASIK, DR STRONG Attending Unavailable KOFI CURRIE Consulting Unavailable KOFI CURRIE Attending Unavailable AICHHOLZ, PUMP INSTALLATION AND SERVICER ALINA Primary Care Unavailable KOFI CURRIE Admitting Unavailable AICHHOLZ, PUMP INSTALLATION AND SERVICER ALINA Primary Care Unavailable KOFI CURRIE Consulting Unavailable KOFI CURRIE Admitting Unavailable KOFI CURRIE Attending Unavailable AICHHOLZ, PUMP INSTALLATION AND SERVICER ALINA Admitting Unavailable AICHHOLZ, PUMP INSTALLATION AND SERVICER ALINA Attending Unavailable AICHHOLZ, PUMP INSTALLATION AND SERVICER ALINA Consulting Unavailable AICHHOLZ, PUMP INSTALLATION AND SERVICER ALINA Primary Care Unavailable Unavailable Primary Care Provider Unavailabl e Unallocated, Noms Provider Primary Care Provider MD Dawn Huitron Attending Provider [phone] NO FAMILY, PHYSICIAN Primary Care Provider Unava ilable NO FAMILY, PHYSICIAN Primary Care Provider Unava ilable DO Newton Carter Attending Provider NO FAMILY, PHYSICIAN Primary Care Unavailable Dawn Huitron Admitting Unavailable Dawn Huitron Attending Unavailable NO FAMILY, PHYSICIAN Primary Care Unavailable Dawn Huitron P Admitting Unavailable Dawn Huitron Attending Unavailable Raul, Newtno Admitting Unavailable Raul, Newton Attending Unavailable NO FAMILY, PHYSICIAN Primary Care Unavailable Unallocated MD, Janets Provider Primary Care Provi kristopher Unallocated MD, Noms Provider Primary Care Provi kristopher Dawood MASSEY, Angel Primary Care Provider [phone] Nadir BOTTOMING MACHINE OPERATOR, Alina Unavailable NEWTON CARTER Attending Unavailable ISAMAR, SARAH Attending Unavailable YRIS CASTELLANOS Attending Unavailable RAUL, NEWTON Attending Unavailable SARAH KERN Attending Unavailable SARAH KERN Referring Unavailable NEWTON CARTER Attending Unavailable RAUL, NEWTON Attending Unavailable ISAMAR, SARAH Attending Unavailable RAUL, NEWTON Attending Unavailable ISAMAR, SARAH Attending Unavailable Medications Current Medications Medication Drug [...] 1:00am magnesium oxide 400 mg oral tablet (18 sources) Start: 09-01-2024 End: 03-30-2025 take 1 tablet by mouth once daily magnesium oxide (Mag-Ox) 400 MG tablet Indications: size inconsistent with dates ([facility]) , Nonintractable headache, unspecified chronicity pattern, unspecified [...] supervision of normal first in first trimester ([facility]) Chew 1 tablet Daily 30 tablet 11 [...] [30 weeks gestation of ] 09-14-2024 Episodic Residual codes; unclassified (2 sources) Gestation period, 32 weeks; Translations: [32 weeks gestation of ] 09-26-2024 Episodic Residual codes; unclassified (2 sources) Gestation period, 34 weeks; Translations: [34 weeks gestation of ] 10-10-2024 Episodic Residual codes; unclassified (2 sources) Gestation period, 35 weeks; Translations: [35 weeks gestation of ] 10-17-2024 Episodic Residual codes; unclassified (2 sources) Gestation period, 36 weeks; Translations: [36 weeks gestation of ] 10-25-2024 Episodic Unclassified (1 source) CONTACT W/AND (SUSP) EXPOS COVID-19; Translations: [CONTACT W/AND (SUSP) EXPOS COVID-19] Onset: 10-05-2020 Urinary tract infections (2 sources) Urinary tract infectious disease; Translations: [Urinary tract infection, site not specified] 10-10-2024 Episodic Past or Other Problems Problem Classification Problem [...] Range Facility Urinalysis macro (dipstick) panel (U)on 10-25-2024 Bilirubin, UA Negative Negative - 4(70) +++ mg/dL [facility] Blood, UA Negative Negative - 50 Sherman/mcL [facility] Clarity, UA Clear [facility] Color, UA Yellow [facility] Glucose, UA Negative Negative - 1999(110) ++++ mg/dL [facility] Interpretation and review of laboratory results Abnormal [facility] Ketones, UA Negative Negative - 160(16) ++++ mg/dL [facility] Leukocytes, UA 1+ Negative - 500+++ Jackie/mcL [facility] Nitrite, UA Negative Negative - Positive [facility] pH, UA 6.5 5 - 9 [facility] Protein, UA Negative Negative - 1999(20) ++++ mg/dL [facility] Spec Grav, UA 1.005 1 - 1.03 [facility] Urobilinogen, UA 2.0 0.2 - 12 mg/dL [facility] Urinalysis macro (dipstick) panel (U)on 10-10-2024 Bilirubin, UA Negative Negative - 4(70) +++ mg/dL [facility] Blood, UA Negative Negative - 50 Sherman/mcL [facility] Clarity, UA Clear [facility] Color, UA Yellow [facility] Glucose, UA Negative Negative - 1999(110) ++++ mg/dL [facility] Interpretation and review of laboratory results Abnormal [facility] Ketones, UA Negative Negative - 160(16) ++++ mg/dL [facility] Leukocytes, UA 3+ Negative - 500+++ Jackie/mcL [facility] Comment on above: 500 Nitrite, UA Negative Negative - Positive [facility] pH, UA 6 5 - 9 [facility] Protein, UA Negative Negative - 1999(20) ++++ mg/dL [facility] Spec Grav, UA 1.025 1 - 1.03 [facility] Urobilinogen, UA 1.0 0.2 - 12 mg/dL [facility] Urinalysis macro (dipstick) panel (U)on 09-26-2024 Bilirubin, UA Negative Negative - 4(70) +++ mg/dL [facility] Blood, UA Negative Negative - 50 Sherman/mcL [facility] Clarity, UA Clear [facility] Color, UA Yellow [facility] Glucose, UA Negative Negative - 1999(110) ++++ mg/dL [facility] Interpretation and review of laboratory results Abnormal [facility] Ketones, UA Negative Negative - 160(16) ++++ mg/dL [facility] Leukocytes, UA Negative Negative - 500+++ Jackie/mcL [facility] Nitrite, UA Negative Negative - Positive [facility] pH, UA 6.5 5 - 9 [facility] Protein, UA Trace Negative - 1999(20) ++++ mg/dL [facility] Spec Grav, UA 1.015 1 - 1.03 [facility] Urobilinogen, UA 0.2 0.2 - 12 mg/dL [facility] US OB FOLLOW UP TRANSABDOMIN AL APPROACHon 09-14-2024 US OB FOLLOW UP TRANSABDOMINAL APPROACH FINDINGS: A [...] UA Negative Negative - 4(70) +++ mg/dL [facility] Blood, UA Negative Negative - 50 Sherman/mcL [facility] Clarity, UA Clear [facility] Color, UA Yellow [facility] Glucose, UA Negative Negative - 1999(110) ++++ mg/dL [facility] Interpretation and review of laboratory results Normal [facility] Ketones, UA Positive Negative - 160(16) ++++ mg/dL [facility] Leukocytes, UA Negative Negative - 500+++ Jackie/mcL [facility] Nitrite, UA Negative Negative - Positive [facility] pH, UA 6 5 - 9 [facility] Protein, UA Positive Negative - 1999(20) ++++ mg/dL [facility] Spec Grav, UA 1.02 1 - 1.03 [facility] Urobilinogen, UA 1.0 0.2 - 12 mg/dL [facility] GLUCOSE TOLERANCE 3 HOURon 0 09-03-2024 GLUCOSE TOLERANCE 3 HOUR High mg/dL [facility] Comment on above: GLU FAST 96H (<95) C ol: 09/03/24 0723 GLU 1HR 160 (<180) Col: 09/03/24 0845 GLU 2HR 109 (<155) Col: 09/03/24 0943 GLU 3HR 113 (<140) Col: 09/03/24 1045 Interpretation and review of laboratory results Abnormal [facility] Urinalysis macro (dipstick) panel (U)on 09-01-2024 Bilirubin, UA Negative Negative - 4(70) +++ mg/dL [facility] Blood, UA Negative Negative - 50 Sherman/mcL [facility] Clarity, UA Clear [facility] Color, UA Yellow [facility] Glucose, UA Negative Negative - 1999(110) ++++ mg/dL [facility] Interpretation and review of laboratory results Abnormal [facility] Ketones, UA Negative Negative - 160(16) ++++ mg/dL [facility] Leukocytes, UA Positive Negative - 500+++ Jackie/mcL [facility] Comment on above: small Nitrite, UA Negative Negative - Positive [facility] pH, UA 7 5 - 9 [facility] Protein, UA Negative Negative - 1999(20) ++++ mg/dL [facility] Spec Grav, UA 1.02 1 - 1.03 [facility] Urobilinogen, UA 0.2 0.2 - 12 mg/dL [facility] GLUCOSE 1 HOURon 08-25-2024 Glucose [Mass/Vol] 139 mg/dL High NINF - 13 0 mg/dL [facility] Interpretation and review of laboratory results Abnormal [facility] Urinalysis macro (dipstick) panel (U)on 08-11-2024 Bilirubin, UA Negative Negative - 4(70) +++ mg/dL [facility] Blood, UA Negative Negative - 50 Sherman/mcL [facility] Clarity, UA Clear [facility] Color, UA Yellow [facility] Glucose, UA Negative Negative - 1999(110) ++++ mg/dL [facility] Interpretation and review of laboratory results Normal [facility] Ketones, UA Negative Negative - 160(16) ++++ mg/dL [facility] Leukocytes, UA Positive Negative - 500+++ Jackie/mcL [facility] Comment on above: SMALL Nitrite, UA Negative Negative - Positive [facility] pH, UA 7 5 - 9 [facility] Protein, UA Negative Negative - 1999(20) ++++ mg/dL [facility] Spec Grav, UA 1.02 1 - 1.03 [facility] Urobilinogen, UA 0.2 0.2 - 12 mg/dL [facility] US OB CERVICAL LENGTHon 07-08 [place] [address] Ultrasound Report Signed Patient: SARAH ARCE MR#: [id number] : 2000 Acct:[id number] Age/Sex: 24 / F ADM Date: 08/02/24 Loc: US Attending Dr: Yris Castellanos Ordering Physician: Yris Castellanos Date of Service: 08/02/24 Procedure(s): US OB cervical length Accession Number(s): [id number] cc: Alina Schmitz BOTTOMING MACHINE OPERATOR; Yris Castellanos [address] [address] Patient Name: SARAH ARCE MRN: [facility]:[id number] date: 2000 Sex: F Assigned Patient Location: Current Patient Location: US Accession/Order Number: [id number] Exam Date: 08/02/2024 18:52 Report Date: 08/02/2024 [...] Daniels M.D. 08/02/2024 6:58 PM Dictation Location: [place] [address] Electronically authenticated by: [id number] Y Date: 08/02/2024 18:58 Dictated By: Roel Daniels M.D. Signed By: 08/02/24 190 DD/ TD/TT: Cost Estimator: [facility] Radiology, Radiologist, MD - 08/02/2024 [place] [address] Ultrasound Report Signed Patient: SARAH ARCE MR#: [id number] : 2000 Acct:[id number] Age/Sex: 24 / F ADM Date: 08/02/24 Loc: US Attending Dr: Yris Castellanos Ordering Physician: Yris Castellanos Date of Service: 08/02/24 Procedure(s): US OB cervical length Accession Number(s): [id number] cc: Alina Schmitz NP; Yris Castellanos [place] [address] Patient Name: SARAH ARCE MRN: [id number] date: 2000 Sex: F Assigned Patient Location: Current Patient Location: Accession/Order Number: [id number] Exam Date: 08/02/2024 18:52 Report Date: 08/02/2024 [...] Daniels M.D. 08/02/2024 6:58 PM Dictation Location: [place] [address] Electronically authenticated by: [id number] Y Date: 08/02/2024 18:58 Dictated By: Roel Daniels M.D. Signed By: 08/02/241899 DD/ 57 TD/TT: Cost Estimator: [facility] Radiology Study observation (narrative) [facility] US OB CERVICAL LENGTHOrdered By: Radiologist Radiology on 08-02-2024 [facility] Work Phone: Urinalysis macro (dipstick) panel (U)on 07-20-2024 Bilirubin, UA Negative Negative - 4(70) +++ mg/dL [facility] Blood, UA Negative Negative - 50 Sherman/mcL [facility] Clarity, UA Clear [facility] Color, UA Yellow [facility] Glucose, UA Negative Negative - 1999(110) ++++ mg/dL [facility] Interpretation and review of laboratory results Normal [facility] Ketones, UA Negative Negative - 160(16) ++++ mg/dL [facility] Leukocytes, UA Positive Negative - 500+++ Jackie/mcL [facility] Comment on above: small Nitrite, UA Negative Negative - Positive [facility] pH, UA 7 5 - 9 [facility] Protein, UA Positive Negative - 1999(20) ++++ mg/dL [facility] Comment on above: 30 Spec Grav, UA 1.025 1 - 1.03 [facility] Urobilinogen, UA 0.2 0.2 - 12 mg/dL [facility] No Panel InformationOrdered By: Radiologist Radiology on 07-06-2024 [facility] Work Phone: No Panel Informationon 07-06 Radiology Study observation (narrative) [facility] US OB ANATOMYon 07-06-2024 [place] [address] Ultrasound Report Signed Patient: SARAH ARCE MR#: [id number] : 2000 Acct:[id number] Age/Sex: 24 / F ADM Date: 07/05/24 Loc: US Attending Dr: Sarah Kern Ordering Physician: Sarah Kern Date of Service: 07/05/24 Procedure(s): US OB anatomy Accession Number(s): [id number] cc: Alina Schmitz NP; Sarah Kern [place] [id number] Patient Name: SARAH ARCE MRN: [id number] date: 2000 Sex: F Assigned Patient Location: US Current Patient Location: Accession/Order Number: [id number] Exam Date: 07/06/2024 08:58 Report Date: 07/06/2024 [...] Impression dictated by: Pedro Luis Jack Jr., Rosa 07/06/2024 9:06 AM Dictation Location: [employer] Electronically authenticated by: [id number] Y Date: 07/06/2024 09:06 Dictated By: Pedro Luis Jack M.D. Signed By: 07/06/2409 DD/ 5 TD/TT: Cost Estimator: [facility] Radiology, Radiologist, - 07/06/2024 [place] [address] Ultrasound Report Signed Patient: SARAH ARCE MR#: [id number] : 2000 Acct:[id number] Age/Sex: 24 / F ADM Date: 07/05/24 Loc: US Attending Dr: Sarah Kern Ordering Physician: Sarah Kern Date of Service: 07/05/24 Procedure(s): US OB anatomy Accession Number(s): [id number] cc: Alina Schmitz NP; Sarah Kern The [address] [address] Patient Name: SARAH ARCE MRN: [facility]:[id number] date: 2000 Sex: F Assigned Patient Location: US Current Patient Location: Accession/Order Number: [id number] Exam Date: 07/06/2024 08:58 Report Date: 07/06/2024 [...] Jr., D.O. 07/06/2024 9:06 AM Dictation Location: [place] [address] Electronically authenticated by: [id number] Y Date: 07/06/2024 09:06 Dictated By: Pedro Luis Jack M.D. Signed By: 07/06/24908 DD/ 5 TD/TT: Cost Estimator: [facility] US OB CERVICAL LENGTHon 06-09 [place] [address] Ultrasound Report Signed Patient: SARAH ARCE MR#: [id number] : 2000 Acct:[id number] Age/Sex: 24 / F ADM Date: 07/05/24 Loc: US Attending Dr: Sarah Kern Ordering Physician: Sarah Kern Date of Service: 07/05/24 Procedure(s): US OB cervical length Accession Number(s): [id number] cc: Alina Schmitz BOTTOMING MACHINE OPERATOR; Sarah Kern [place] [id number] Patient Name: SARAH ARCE MRN: [facility]:[id number] date: 2000 Sex: F Assigned Patient Location: US Current Patient Location: Accession/Order Number: [id number] Exam Date: 07/06/2024 08:58 Report Date: 07/06/2024 [...] Jr., D.O. 07/06/2024 9:06 AM Dictation Location: [place] [address] Electronically authenticated by: [id number] Y Date: 07/06/2024 09:06 Dictated By: Pedro Luis Jack M.D. Signed By: 07/06/2409 DD/ 5 TD/TT: Cost Estimator: [facility] Radiology, Radiologist, - 07/06/[address] [address] Ultrasound Report Signed Patient: SARAH ARCE MR#: [id number] : 2000 Acct:[id number] Age/Sex: 24 / F ADM Date: 07/05/24 Loc: US Attending Dr: Sarah Kern Ordering Physician: Sarah Kern Date of Service: 07/05/24 Procedure(s): US OB cervical length Accession Number(s): [id number] cc: Alina Schmitz NP; Sarah Kern [address] [address] Patient Name: SARAH ARCE MRN: [facility]:[id number] date: 2000 Sex: F Assigned Patient Location: US Current Patient Location: Accession/Order Number: [id number] Exam Date: 07/06/2024 08:58 Report Date: 07/06/2024 [...] Jr., D.O. 07/06/2024 9:06 AM Dictation Location: [place] [address] Electronically authenticated by: [id number] Y Date: 07/06/2024 09:06 Dictated By: Pedro Luis Jack M.D. Signed By: 07/06/24908 DD/ 5 TD/TT: Cost Estimator: RASHEEDA Soriano HPV,AGE GDLNon AGE GDLN ACOG TESTING Note . [facility] Comment on above: TESTS RESULT FLAG UN ITS REF RANGE LAB Clinician Provided Cytology Information Source.............Cervix Other.............. No. of containers..01 ThinPrep Vial Age Algo ACOG Shila... FLAG LEGEND: L-Low Normal,H-High Normal,LL-Alert Low,HH-Alert High <-Panic Low,>-Panic High,A-Abnormal,AA-Critical Abnormal Performed at: 01 =[facility] [address] Sarai Durant MD, IGP, RFX APTIMA HPV ASCU Note . [facility] Comment on above: TESTS RESULT FLAG U NITS REF RANGE LAB DIAGNOSIS: 02 NEGATIVE FOR INTRAEPITHELIAL LESION OR MALIGNANCY. THIS SPECIMEN WAS RESCREENED PART OF OUR RESPIRATORY CARE TECHNICIAN PROGRAM. Specimen adequacy: 02 Satisfactory for evaluation. No endocervical component is identified. An endocervical component is not commonly seen in the patient. Performed by: 03 My Kraus, Oracle Software Engineer ([facility]) QC reviewed by: 02 Debbie Pagan, Oracle Software Engineer ([facility]) . 02 Note: Note 02 [...] <-Panic Low,>-Panic High,A-Abnormal,AA-Critical Abnormal Performed at: [address] [address] Sarai Durant MD, 03 [facility] [address] Marito Torres PhD, Performed at: =G - [facility] [address] [id number] Plow Mechanic: Sarai Durant MD, Phone: [phone] Performed at: - [facility] [id number] Plow Mechanic: Sarai Durant MD, Phone: [phone] [facility] GLUCOSE 1 HOURon 06-07-2024 Glucose [Mass/Vol] 108 mg/dL NINF - 13 0 mg/dL [facility] RECURRENT VAGINITIS (HTRX)on 06-07-2024 ATOPOBIUM VAGINAE 0 [facility] ATOPOBIUM VAGINAE Not detected [facility] BVAB 2,3 (BACTERIAL VAGINOSIS ASSOCIATED BACTERIA 2, 3); MOBILUNCUS SPP 0 [facility] BVAB 2,3 (BACTERIAL VAGINOSIS ASSOCIATED BACTERIA 2, 3); MOBILUNCUS SPP Not detected [facility] ANTONINO ALBICANS, PARAPSILOSIS, TROPICALIS 0 [facility] ANTONINO ALBICANS, PARAPSILOSIS, TROPICALIS Not detected [facility] ANTONINO GLABRATA 0 [facility] ANTONINO GLABRATA Not detected [facility] ANTONINO KRUSEI 0 [facility] ANTONINO KRUSEI Not detected [facility] CHLAMYDIA TRACHOMATIS 0 [facility] CHLAMYDIA TRACHOMATIS Not detected N [facility] GARDNERELLA VAGINALIS 0 [facility] GARDNERELLA VAGINALIS Not detected N [facility] MEGASPHAERA (TYPES 1, 2) 0 [facility] MEGASPHAERA (TYPES 1, 2) Not detected [facility] MYCOPLASMA GENITALIUM 0 [facility] MYCOPLASMA GENITALIUM Not detected N [facility] NEISSERIA GONORRHOEAE 0 [facility] NEISSERIA GONORRHOEAE Not detected N [facility] TRICHOMONAS VAGINALIS 0 [facility] TRICHOMONAS VAGINALIS Not detected N [facility] Urinalysis macro (dipstick) panel (U)on 06-06-2024 Bilirubin, UA Positive Negative - 4(70) +++ mg/dL [facility] Comment on above: small Blood, UA Negative Negative - 50 Sherman/mcL [facility] Clarity, UA Clear [facility] Color, UA Hanna [facility] Glucose, UA Negative Negative - 1999(110) ++++ mg/dL [facility] Interpretation and review of laboratory results Abnormal [facility] Ketones, UA Positive Negative - 160(16) ++++ mg/dL [facility] Comment on above: 160 Leukocytes, UA Negative Negative - 500+++ Jackie/mcL [facility] Nitrite, UA Negative Negative - Positive [facility] pH, UA 5.5 5 - 9 [facility] Protein, UA Positive Negative - 1999(20) ++++ mg/dL [facility] Comment on above: 100 Spec Grav, UA 1.03 1 - 1.03 [facility] Urobilinogen, UA 0.2 0.2 - 12 mg/dL [facility] MLR HEMOGLOBIN A1Con 025 Glucose [Mass/Vol] 105 mg/dL [facility] HbA1c (Bld) [Mass fraction] 5.3 % 4.5 - 6.2 % [facility] Comment on above: ADA RECOMMENDED LIMI T 4.0 - 6.0 ADA THERAPEUTIC TARGET < 7.0 ACTION SUGGESTED > 7.0 [facility] Urinalysis macro (dipstick) panel (U)on 05-09-2024 Bilirubin, UA Positive Negative - 4(70) +++ mg/dL [facility] Comment on above: small Blood, UA Negative Negative - 50 Sherman/mcL [facility] Clarity, UA Clear [facility] Color, UA Yellow [facility] Glucose, UA Negative Negative - 2000(110) ++++ mg/dL [facility] Interpretation and review of laboratory results Abnormal [facility] Ketones, UA Positive Negative - 160(16) ++++ mg/dL [facility] Comment on above: trace Leukocytes, UA Positive Negative - 500+++ Jackie/mcL [facility] Comment on above: small Nitrite, UA Negative Negative - Positive [facility] pH, UA 6.5 5 - 9 [facility] Protein, UA Positive Negative - 2000(20) ++++ mg/dL [facility] Comment on above: 100mg/dL Spec Grav, UA 1.025 1 - 1.03 [facility] Urobilinogen, UA 1.0 0.2 - 12 mg/dL [facility] HCG ( test) Ql (U)o n 04-07-2024 Interpretation and review of laboratory results Abnormal [facility] Preg Test, Ur Positive Negative [facility] US OB TRANSVAGINALon 025 OB [...] report is generated using voice recognition reporting (Meldium). On occasion Meldium erroneously drops words from the report or [...] UA Negative Negative - 4(70) +++ mg/dL [facility] Blood, UA Positive Negative - 50 Sherman/mcL [facility] Comment on above: trace Clarity, UA Clear [facility] Color, UA Yellow [facility] Glucose, UA Negative Negative - 2000(110) ++++ mg/dL [facility] Interpretation and review of laboratory results Abnormal [facility] Ketones, UA Positive Negative - 160(16) ++++ mg/dL [facility] Comment on above: trace Leukocytes, UA Trace Negative - 500+++ Jackie/mcL [facility] Nitrite, UA Negative Negative - Positive [facility] pH, UA 5.5 5 - 9 [facility] Protein, UA Trace Negative - 2000(20) ++++ mg/dL [facility] Spec Grav, UA 1.03 1 - 1.03 [facility] Urobilinogen, UA 0.2 0.2 - 12 mg/dL [facility] TBH PREG QUANT HCGon 10-09-2 024 HCG QUANTITATIVE 5 mIU/mL [facility] Comment on above: 5-50 0.2-1 WEEK 50-500 1-2 WEEKS 100-5,000 2-3 WEEKS 500-10,000 3-4 WEEKS 1,000-50,000 4-5 WEEKS 10,000-100,000 5-6 WEEKS 15,000-200,000 6-8 WEEKS 10,000-100,000 [facility] HCG QUANTITATIVE 16 mIU/mL [facility] Comment on above: 5-50 0.2-1 WEEK 50-500 1-2 WEEKS 100-5,000 2-3 WEEKS 500-10,000 3-4 WEEKS 1,000-50,000 4-5 WEEKS 10,000-100,000 5-6 WEEKS 15,000-200,000 6-8 WEEKS 10,000-100,000 2-3 MONTHS [facility] PREG QUANT HCGon HCG QUANTITATIVE 70 mIU/mL [facility] Comment on above: 5-50 0.2-1 WEEK 50-500 1-2 WEEKS 100-5,000 2-3 WEEKS 500-10,000 3-4 WEEKS 1,000-50,000 4-5 WEEKS 10,000-100,000 5-6 WEEKS 15,000-200,000 6-8 WEEKS 10,000-100,000 2-[facility] CBC WITH AUTO DIFFon BASOPHILS ABSOLUTE AUTO 0.0 [facility] Basophils/100 WBC (Bld) 0.2 % 0.2 - 2.0 % [facility] Eosinophils/100 WBC (Bld) 0.7 % Low 0.9 - 7.0 % [facility] Erythrocyte distribution width (RBC) [Ratio] 13.3 % 11.0 - 15.0 % [facility] Hematocrit (Bld) [Volume fraction] 37.9 % 36.0 - 48.0 % [facility] Hemoglobin (Bld) [Mass/Vol] 13.0 g/dL 12.0 - 16.0 g/dL [facility] IMMATURE GRANULOCYTES ABS AUTO 0.03 [facility] Immature granulocytes/100 WBC (Bld) 0.3 % 0.0 - 0.5 % [facility] Interpretation and review of laboratory results Abnormal [facility] LYMPHOCYTES ABSOLUTE AUTO 1.7 [facility] Lymphocytes/100 WBC (Bld) 14.9 % Low 20.5 - 60.0 % [facility] MCH (RBC) [Entitic mass] 27.6 pg 26.7 - 34.0 pg [facility] MCHC (RBC) [Mass/Vol] 34.3 g/dL 29.9 - 35.2 g/dL [facility] MCV (RBC) [Entitic vol] 80.5 fL Low 81.0 - 99.0 fL [facility] MONOCYTES ABSOLUTE AUTO 0.6 [facility] Monocytes/100 WBC (Bld) 5.6 % 1.7 - 12.0 % [facility] NEUTROPHILS ABSOLUTE AUTO 8.7 High [facility] Neutrophils/100 WBC (Bld) 78.3 % High 43.0 - 75.0 % [facility] Platelet mean volume (Bld) [Entitic vol] 9.1 fL Low 9.5 - 13.5 fL [facility] TBH EO # 0.1 [facility] TBH PLT [address] [facility] RBC 4.71 [facility] WBC 11.1 High [facility] Leif 11-13-2023 L Specimen: [id number] Received: 11/16/23 Status: RUBINA Sharpe Num: [id number] Spec Type: Surgical Subm Dr: Newton Carter Tissues: A Products of Conception - Spontaneous or Missed (POC MOLAR Procedures: HE/3, Gross/Micro L4 Age/ Patient Sex Location Account Attending Physician Sarah Arce 23/F [id number] [place] SPEC NUM: [id number] RECD: 11/16/23 [facility] [id number] MARY: 11/13/[address]: Newton Carter ENTERED: 11/16/[address] [facility] [address]: Myriam,Lab SPEC TYPE: Surgical DEPT: TOBY WOOD ENTERED BY: [id number] RECV BY: [id number] ORDERED: HE/3, Gross/Micro L4 ORDERED: HE/3, Gross/Micro [...] the complete mole Clinical Information Molar Specimen: [id number] Received: 11/16/23 Status: RUBINA Sharpe Num: [id number] Spec Type: Surgical Subm Dr: Newton Carter Tissues: A Products of Conception - Spontaneous or Missed (POC MOLAR Procedures: HE/3, Gross/Micro L4 Patient: Sarah Arce [id number] (Continued) Specimen: [id number] Received: 11/16/23 (Continued) Signed (signature on file) Antonia Camarena MD 11/21/23 1057 Specimen: [id number] Received: 11/16/23 Status: RUBINA Maynardkathrin Num: [id number] Spec Type: Surgical Subm Dr: Newton Carter Tissues: A Products of Conception - Spontaneous or Missed (POC MOLAR Procedures: /3, Gross/Micro L4 Patient: Sarah Arce [id number] (Continued) Specimen: [id number] Received: 11/16/23 (Continued) Gross Description The specimen was received in formalin with the patient's name and products of conception and consists of multiple jasmine-pink hemorrhagic soft tissue fragments measuring 12.0 x 11.0 x 1.5 cm in aggregate. Multiple cystic structures are identified ranging in size from 0.1 to 0.5 cm. The cysts are filled with a clear fluid. Gun Profiler sections of the cystic structures are submitted in cassettes A1-A3 DM Microscopic Description Microscopic examinations are performed supporting the above interpretation CPT Codes 11273 Specimen: [id number] Received: 11/16/23 Status: RUBINA Sharpe Num: [id number] Spec Type: Surgical Subm Dr: Newton Carter Tissues: A Products of Conception - Spontaneous or Missed (POC MOLAR Procedures: RYAN/Michael Beltrán/Lisa L4 Patient: Sarah Arce [id number] (Continued) Signed (signature on file) Antonia Camarena MD 11/21/23 1057 Normal [facility] ALL CBC WITH AUTO DIFFon BASOPHILS ABSOLUTE AUTO 0.0 [facility] Basophils/100 WBC (Bld) 0.2 % 0.2 - 2.0 % [facility] Eosinophils/100 WBC (Bld) 1.3 % 0.9 - 7.0 % [facility] Erythrocyte distribution width (RBC) [Ratio] 13.3 % 11.0 - 15.0 % [facility] Hematocrit (Bld) [Volume fraction] 37.4 % 36.0 - 48.0 % [facility] Hemoglobin (Bld) [Mass/Vol] 12.6 g/dL 12.0 - 16.0 g/dL [facility] IMMATURE GRANULOCYTES ABS AUTO 0.02 [facility] Immature granulocytes/100 WBC (Bld) 0.2 % 0.0 - 0.5 % [facility] Interpretation and review of laboratory results Abnormal [facility] LYMPHOCYTES ABSOLUTE AUTO 1.4 [facility] Lymphocytes/100 WBC (Bld) 12.1 % Low 20.5 - 60.0 % [facility] MCH (RBC) [Entitic mass] 27.0 pg 26.7 - 34.0 pg [facility] MCHC (RBC) [Mass/Vol] 33.7 g/dL 29.9 - 35.2 g/dL [facility] MCV (RBC) [Entitic vol] 80.1 fL Low 81.0 - 99.0 fL [facility] MONOCYTES ABSOLUTE AUTO 0.7 [facility] Monocytes/100 WBC (Bld) 6.4 % 1.7 - 12.0 % [facility] NEUTROPHILS ABSOLUTE AUTO 9.2 High [facility] Neutrophils/100 WBC (Bld) 79.8 % High 43.0 - 75.0 % [facility] Platelet mean volume (Bld) [Entitic vol] 9.1 fL Low 9.5 - 13.5 fL [facility] EO # 0.2 [facility] TBH PLT 284 [facility] RBC 4.67 [facility] WBC 11.5 High [facility] Automated basophil %Ordered By: CHUCK Huitron on 04-30-2023 Basophils/100 WBC (Bld) 0.7 % Normal . [facility] Comment on above: Performed By: #### C BC, HCGQNT #### [facility] [address] Automated basophil countOrde red By: CHUCK Huitron on 04-30-2023 Basophils (Bld) [#/Vol] 0.1 10*3/uL Normal 0.0-0.2 [facility] Comment on above: Result Comment: PERF ORMED BY: [place] [address] PATHOLOGIST [employer]IL[employer] CHUY PALOMO M.D. Performed By: #### C SINDI, HCGQNT #### [address] Automated blood monocyte cou ntOrdered By: CHUCK Huitron on 04-30-2023 Monocytes (Bld) [#/Vol] 0.5 10*3/uL Normal 0.0-0.8 [facility] Comment on above: Performed By: #### C BC, HCGQNT #### [address] Automated eosinophil %Ordere d By: CHUCK Huitron on 04-30-2023 Eosinophils/100 WBC (Bld) 1.3 % Normal . [facility] Comment on above: Performed By: #### C BC, HCGQNT #### [address] Automated eosinophil countOr dered By: CHUCK Huitron on 04-30-2023 Eosinophils (Bld) [#/Vol] 0.1 10*3/uL Normal 0.0-0.45 [facility] Comment on above: Performed By: #### C BC, HCGQNT #### [address] Automated monocyte %Ordered By: CHUCK Huitron on 04-30-2023 Monocytes/100 WBC (Bld) 6.3 % Normal . [facility] Comment on above: Performed By: #### C BC, HCGQNT #### [address] Automated neutrophil %Ordere d By: CHUCK Huitron on 04-30-2023 Neutrophils/100 WBC (Bld) 63.0 % Normal . [facility] Comment on above: Performed By: #### C BC, HCGQNT #### [address] Choriogonadotropin.beta subu nit [Units/volume] in Serum or PlasmaOrdered By: SHANNON Huitron on 04-30-2023 HCG.beta subunit Qn 2358.00 m[IU]/mL [facility] Comment on above: Approximate Approxim ate hCG Gestational Age Range (mIU/ml) (weeks)0.2-1 5-50 1-2 50-500 2-3 100-5,000 3-4 500-10,000 4-5 1,000-50,000 5-6 10,000-100,000 6-8 15,000-200,000 8-12 10,000-100,000 Complete Blood Count Auto Di ffon 04-30-2023 Mean Corpuscular HGB Conc 34.7 g/dL Normal 32.0-35.0 [facility] Comment on above: Performed By: #### C BC, HCGQNT #### [facility] [address] [place] [address] NRBC% 0.1 /100{WBC} Normal 0-0.5 [facility] Comment on above: Performed By: #### C BC, HCGQNT #### [address] Erythrocyte distribution wid th [Ratio] by Automated countOrdered By: CHUCK Huitron on 04-30-2023 Erythrocyte distribution width (RBC) [Ratio] 14.1 % Normal 11.9-15.3 [facility] Comment on above: Performed By: #### C BC, HCGQNT #### [address] Erythrocytes [#/volume] in B lood by Automated countOrdered By: CHUCK Huitron on 04-30-2023 RBC (Bld) [#/Vol] 4.40 10*6/uL Normal 3.60-5.00 [facility] Comment on above: Performed By: #### C BC, HCGQNT #### [address] HCG,Quantitativeon 4 HCG,Quantitative 2358.00 m[iU]/mL Normal [facility] Comment on above: Result Comment: Appr oximate Approximate hCG Gestational Age Range (mIU/ml) (weeks) 0.2-1 5-50 1-2 50-500 2-3 100-5,000 3-4 500-10,000 4-5 1,000-50,000 5-6 10,000-100,000 6-8 15,000-200,000 8-12 10,000-100,000 PERFORMED BY: [place] [address] PATHOLOGIST [employer]IL[employer] CHUY PALOMO M.D. Performed By: #### C BC, HCGQNT #### [address] Hematocrit [Volume Fraction] of Blood by Automated countOrdered By: CHUCK Huitron on 04-30-2023 Hematocrit (Bld) [Volume fraction] 35.3 % Normal 34.0-46.4 [facility] Comment on above: Performed By: #### C BC, HCGQNT #### [address] Hemoglobin [Mass/volume] in BloodOrdered By: CHUCK Huitron on 04-30-2023 Hemoglobin (Bld) [Mass/Vol] 12.2 g/dL Normal 11.8-15.4 [facility] Comment on above: Performed By: #### C BC, HCGQNT #### [address] Leif 04-30-2023 L Specimen: [id number] Received: 04/30/23 Status: RUBINA Maynardkathrin Num: [id number] Spec Type: Surgical Subm Dr: CHUCK Astorga Tissues: A Products of Conception - Spontaneous or Missed (PRODUCTS OF CONCEPT Procedures: HE/3, Gross/Micro L4 Age/ Patient Sex Location Account Attending Physician Sarah Arce 23/F N3 [id number] CHUCK Astorga SPEC NUM: [id number] RECD: 04/30/23 STATUS: RUBINA MAYNARDKathrin NUM: [id number] MARY: 04/30/23- SUBM DR: CHUCK Astorga ENTERED: 04/30/[address] [facility] [address]: SPEC TYPE: Surgical DEPT: S [...] is tentatively identified. tissue is not identified. Gun Profiler sections focused on potential villi. Gun Profiler sections are submitted in three cassettes labeled A1-A3. CPT Codes 84347 Specimen: [id number] Received: 04/30/23 Status: RUBINA Dell Num: [id number] Spec Type: Surgical Subm Dr: CHUCK Astorga Tissues: A Products of Conception - Spontaneous or Missed (PRODUCTS OF CONCEPT Procedures: HE/3, Gross/Micro L4 Patient: Sarah Arce [id number] (Continued) Signed (signature on file) Tavia Abad MD 05/05/23 2315 Normal [facility] Leukocytes [#/volume] correc bridget for nucleated erythrocytes in Blood by Automated counOrdered By: CHUCK Huitron on 04-30-2023 WBC corrected for nucl RBC Auto (Bld) [#/Vol] 8.4 10*3/uL 3.8-11.6 [facility] Leukocytes [#/volume] in Blo od by Automated countOrdered By: CHUCK Huitron on 04-30-2023 WBC (Bld) [#/Vol] 8.4 10*3/uL Normal 3.8-11.6 [facility] Comment on above: Performed By: #### C SINDI HCGQNT #### [facility] [address] [place] [address] [place] Lymphocytes [#/volume] in Bl ood by Automated countOrdered By: CHUCK Huitron on 04-30-2023 Lymphocytes (Bld) [#/Vol] 2.4 10*3/uL Normal 1.00-4.8 [facility] Comment on above: Performed By: #### C SINDI, HCGQNT #### [facility] [address] [place] [address] [place] Lymphocytes/100 leukocytes i n Blood by Automated countOrdered By: CHUCK Huitron on 04-30-2023 Lymphocytes/100 WBC (Bld) 28.7 % Normal . [facility] Comment on above: Performed By: #### C BC, HCGQNT #### [facility] [address] [place] [address] MCH [Entitic mass] by Automa bridget countOrdered By: CHUCK Huitron on 04-30-2023 MCH (RBC) [Entitic mass] 27.8 pg Normal 24.7-34.3 [facility] Comment on above: Performed By: #### C BC, HCGQNT #### [address] MCHC Auto (RBC) [Mass/Vol]Or dered By: CHUCK Huitron on 04-30-2023 MCHC (RBC) [Mass/Vol] 34.7 g/dL 32.0-35.0 [facility] MCV [Entitic volume] by Auto mated countOrdered By: CHUCK Huitron on 04-30-2023 MCV (RBC) [Entitic vol] 80.2 fL Normal 80-100 [facility] Comment on above: Performed By: #### C BC, HCGQNT #### [place] [address] [place] Neutrophils [#/volume] in Bl ood by Automated countOrdered By: CHUCK Huitron on 04-30-2023 Neutrophils (Bld) [#/Vol] 5.3 10*3/uL Normal 1.8-7.7 [facility] Comment on above: Performed By: #### C BC, HCGQNT #### [facility] [address] [place] [address] [place] Nucleated erythrocytes [Pres ence] in Blood by Automated countOrdered By: CHUCK Huitron on 04-30-2023 Nucleated RBC Auto Ql (Bld) 0.1 /100{WBC} 0-0.5 [facility] Platelet mean volume [Entiti c volume] in Blood by Automated countOrdered By: SHANNON Huitron on 04-30-2023 Platelet mean volume (Bld) [Entitic vol] 6.7 fL Normal 6.3-10.7 [facility] Comment on above: Performed By: #### C BC, HCGQNT #### [facility] [address] Platelets [#/volume] in Bloo d by Automated countOrdered By: CHUCK Huitron on 04-30-2023 Platelets (Bld) [#/Vol] 317 10*3/uL Normal 150-450 [facility] Comment on above: Performed By: #### C BC, HCGQNT #### [facility] [address] [place] [address] US transvaginalon 04-30-2023 US transvaginal [facility] [place] [address] [place] [address] Ultrasound Report Signed Patient: Sarah Arce MR#: [id number] : 2000 Acct:[id number] Age/Sex: 23 / F ADM Date: 04/29/23 Loc: Room: [address] [place] [address] Type: REG CLI Attending Dr: Dawn Huitron MD Ordering Provider: CHUCK Astorga Date of Service: 04/30/23 US/US pelvic complete: D and C scheduled ([id number]) US/US transvaginal: PRODUCTS OF CONCEPTION WITH PRIOR [...] Usama Peña M.D.04/30/2023 9:37 AM Dictation Location: [place] [address] Tech: Anca Horn Transcribed By: GISSEL 04/30/2337 Dictated By: Usama Peña DO 04/30/2333 Signed By: 04/30/23936 Normal [facility] ABO/Rh Retypeon 04-29-2023 ABO/RH Recheck Result Positive Normal [facility] Comment on above: Result Comment: PERF ORMED BY: [place] [address] PATHOLOGIST [employer] BUIL[employer] CHUY PALOMO M.D. Complete Blood Count Auto Di ffon 04-29-2023 Basophils (Bld) [#/Vol] 0.0 10*3/uL Normal 0.0-0.2 [facility] Comment on above: Result Comment: PERF ORMED BY: [place] [address] PATHOLOGIST [employer] BUILDER CHUY PALOMO M.D. Performed By: #### H CGQNT, CBC #### [address] Basophils/100 WBC (Bld) 0.3 % Normal . [facility] Comment on above: Performed By: #### H CGQNT, CBC #### [place] [address] [place] Eosinophils (Bld) [#/Vol] 0.2 10*3/uL Normal 0.0-0.45 [facility] Comment on above: Performed By: #### H CGQNT, CBC #### [place] [address] [place] Eosinophils/100 WBC (Bld) 1.1 % Normal . [facility] Comment on above: Performed By: #### H CGQNT, CBC #### [address] Erythrocyte distribution width (RBC) [Ratio] 13.9 % Normal 11.9-15.3 [facility] Comment on above: Performed By: #### H CGQNT, CBC #### [place] [id number] [place] Hematocrit (Bld) [Volume fraction] 39.8 % Normal 34.0-46.4 [facility] Comment on above: Performed By: #### H CGQNT, CBC #### [address] Hemoglobin (Bld) [Mass/Vol] 13.3 g/dL Normal 11.8-15.4 [facility] Comment on above: Performed By: #### H CGQNT, CBC #### [address] Lymphocytes (Bld) [#/Vol] 2.3 10*3/uL Normal 1.00-4.8 [facility] Comment on above: Performed By: #### H CGQNT, CBC #### [address] Lymphocytes/100 WBC (Bld) 17.0 % Normal . [facility] Comment on above: Performed By: #### H CGQNT, CBC #### [address] MCH (RBC) [Entitic mass] 27.0 pg Normal 24.7-34.3 [facility] Comment on above: Performed By: #### H CGQNT, CBC #### [address] MCV (RBC) [Entitic vol] 80.8 fL Normal 80-100 [facility] Comment on above: Performed By: #### H CGQNT, CBC #### [address] Mean Corpuscular HGB Conc 33.5 g/dL Normal 32.0-35.0 [facility] Comment on above: Performed By: #### H CGQNT, CBC #### [address] Monocytes (Bld) [#/Vol] 0.5 10*3/uL Normal 0.0-0.8 [facility] Comment on above: Performed By: #### H CGQNT, CBC #### [facility] [address] [place] [address] [place] Monocytes/100 WBC (Bld) 4.0 % Normal . [facility] Comment on above: Performed By: #### H CGQNT, CBC #### [facility] [address] [place] [address] [place] Neutrophils (Bld) [#/Vol] 10.6 10*3/uL High 1.8-7.7 [facility] Comment on above: Performed By: #### H CGQNT, CBC #### [facility] [address] Neutrophils/100 WBC (Bld) 77.6 % Normal . [facility] Comment on above: Performed By: #### H CGQNT, CBC #### [facility] [address] NRBC% 0.2 /100{WBC} Normal 0-0.5 [facility] Comment on above: Performed By: #### H CGQNT, CBC #### [facility] [address] [place] [address] [place] Platelet mean volume (Bld) [Entitic vol] 7.0 fL Normal 6.3-10.7 [facility] Comment on above: Performed By: #### H CGQNT, CBC #### [facility] [address] [place] [id number] [place] Platelets (Bld) [#/Vol] 369 10*3/uL Normal 150-450 [facility] Comment on above: Performed By: #### H CGQNT, CBC #### [facility] [address] [place] [address] [place] RBC (Bld) [#/Vol] 4.93 10*6/uL Normal 3.60-5.00 [facility] Comment on above: Performed By: #### H CGQNT, CBC #### [facility] [address] [place] [address] [place] WBC (Bld) [#/Vol] 13.6 10*3/uL High 3.8-11.6 [facility] Comment on above: Performed By: #### H CGQNT, CBC #### [facility] [address] [place] [id number] [place] HCG,Quantitativeon 4 HCG,Quantitative 3230.00 m[iU]/mL Normal [facility] Comment on above: Result Comment: Appr oximate Approximate hCG Gestational Age Range (mIU/ml) (weeks) 0.2-1 5-50 1-2 50-500 2-3 100-5,000 3-4 500-10,000 4-5 1,000-50,000 5-6 10,000-100,000 6-8 15,000-200,000 8-12 10,000-100,000 PERFORMED BY: [place] [address] PATHOLOGIST [employer] BUILDER CHUY PALOMO M.D. Performed By: #### H CGQNT, CBC #### [facility] [address] [place], [place] [id number] [place] Type and Screenon 04-29-2023 ABO and Rh group Nom (Bld) Blood group A Rh(D) positive Normal [facility] Leif 04-24-2023 L Specimen: [id number] Received: 04/24/23 Status: RUBINA Sharpe Num: [id number] Spec Type: Surgical Subm Dr: CHUCK Astorga Tissues: A Products of Conception - Spontaneous or Missed (POC) Procedures: HE/3, Gross/Micro L4 Age/ Patient Sex Location Account Attending Physician Sarah Arce 23/F [place] [id number] MICHELE AstorgaS SPEC NUM: [id number] RECD: 04/24/23 STATUS: SOUT REQ NUM: [id number] MARY: 04/24/23- SUBM DR: MICHELE AstorgaS ENTERED: 04/24/[address] [facility] [address]: SPEC TYPE: Surgical DEPT: S ENTERED BY: [id number] RECV BY: [id number] ORDERED: HE/3, Gross/Micro L4 ORDERED: HE/3, Gross/Micro [...] foot length of 0.7 cm from heel-to-toe. Gun Profiler sections are submitted in 3 cassettes as follows: A1-A2 - Villous tissue A3 - tissue CPT Codes 34497 Specimen: [id number] Received: 04/24/23 Status: RUBINA Sharpe Num: [id number] Spec Type: Surgical Subm Dr: Dawn Huitron MD-NOMS Tissues: A Products of Conception - Spontaneous or Missed (POC) Procedures: RYAN/Jerel, Gross/Micro L4 Patient: Sarah Arce [id number] (Continued) Signed (signature on file) Tavia Abad MD 04/28/23 2321 Normal [facility] CBC AUTO DIFFon 10-02-2020 BASO # 0.0 103/ul Normal 0.0-0.1 [facility] Comment on above: Performed By: #### U MICRO, UACSIND #### [facility] [address] [place] [address] Vandana Jacobson Basophils/100 WBC (Bld) 0.1 % Critically low 0.2-2.0 [facility] Comment on above: Performed By: #### U MICRO, UACSIND #### [facility] [address] [place] [address] Vandana Jacobson EO # 0.0 103/ul Normal 0.0-0.7 [facility] Comment on above: Performed By: #### U MICRO, UACSIND #### [facility] [facility] [address] [place] [address] Vandana Jacobson Eosinophils/100 WBC (Bld) 0.0 % Critically low 0.9-7.0 [facility] Comment on above: Performed By: #### U MICRO, UACSIND #### [facility] [address] [address] Vandana Jacobson Erythrocyte distribution width (RBC) [Ratio] 15.9 % Critically high 11.0-15.0 [facility] Comment on above: Performed By: #### U MICRO, UACSIND #### [facility] [address] [place] [address] Vandana Jacobson Hematocrit (Bld) [Volume fraction] 33.3 % Critically low 36.0-48.0 [facility] Comment on above: Performed By: #### U MICRO, UACSIND #### [facility] [address] [place] [address] Vandana Indira Hemoglobin (Bld) [Mass/Vol] 11.2 g/dL Critically low 12.0-16.0 [facility] Comment on above: Performed By: #### U MICRO UACSIND #### [facility] [address] [address] Vandana Indira IG # 0.07 10e3/ul Critically high 0.00-0.03 [facility] Comment on above: Performed By: #### U MICRO UACSIND #### [facility] [address] [address] Vandana Indira IG % 0.4 % Normal 0.0-0.5 [facility] Comment on above: Performed By: #### U MICRO UACSIND #### [facility] [address] [place] [address] Vandana Indira LYMPH # 1.9 103/ul Normal 1.2-3.8 [facility] Comment on above: Performed By: #### U MICRO UACSIND #### [facility] [address] [place] [address] Vandana Jacobson Lymphocytes/100 WBC (Bld) 11.4 % Critically low 20.5-60.0 [facility] Comment on above: Performed By: #### U MICRO UACSIND #### [facility] [address] [place] [address] Vandana Jacobson MANUAL DIFF REQ NO Normal [facility] Comment on above: Performed By: #### U MICRO UACSIND #### [facility] [address] [address] Vandana Indira MCH (RBC) [Entitic mass] 27.7 pg Normal 26.7-34.0 [facility] Comment on above: Performed By: #### U MICRO UACSIND #### [facility] [address] [address] Vandanadave Jacobson MCHC (RBC) [Mass/Vol] 33.6 g/dL Normal 29.9-35.2 [facility] Comment on above: Performed By: #### U MICRO, UACSIND #### [facility] [address] [id number] Vandana Jacobson MCV (RBC) [Entitic vol] 82.4 fL Normal 81.0-99.0 [facility] Comment on above: Performed By: #### U MICRO, UACSIND #### [facility] [address] [id number] Vandanadave Lien MONO # 1.0 103/ul Critically high 0.3-0.8 [facility] Comment on above: Performed By: #### U MICRO, UACSIND #### [facility] [address] [id number] Vandana Indira Monocytes/100 WBC (Bld) 6.3 % Normal 1.7-12.0 [facility] Comment on above: Performed By: #### U MICRO, UACSIND #### [facility] [address] [place] [address] Vandana Indira NEUT # 13.4 103/ul Critically high 1.4-6.5 [facility] Comment on above: Performed By: #### U MICRO, UACSIND #### [facility] [address] [id number] Vandana Indira Neutrophils/100 WBC (Bld) 81.8 % Critically high 43.0-75.0 [facility] Comment on above: Performed By: #### U MICRO, UACSIND #### [facility] [address] [id number] Vandanadave Jacobson Platelet mean volume (Bld) [Entitic vol] 10.3 fL Normal 9.5-13.5 [facility] Comment on above: Performed By: #### U MICRO, UACSIND #### [facility] [address] [id number] Vandana Indira PLT 202 103/ul Normal 150-450 [facility] Comment on above: Performed By: #### U MICRO, UACSIND #### [facility] [address] [id number] Vandana Indira RBC 4.04 106/ul Critically low 4.20-5.40 [facility] Comment on above: Performed By: #### U MICRO, UACSIND #### [facility] [address] [place] [address] Vandana Jacobson WBC 16.4 103/ul Critically high 4.0-11.0 [facility] Comment on above: Performed By: #### U MICRO, UACSIND #### [facility] [address] [place] [address] Vandana Jacobson ASYMPTOMATIC COVID-19 ANTIGE Non 10-01-2020 EUA Statement SEE BELOW Normal [facility] Comment on above: Result Comment: This test [...] sooner. Performed By: #### C VDAGA #### [facility] [address] [place], [place] [id number] Vandana Jacobson SARS-CoV-2 (COVID-19) RNA RAMA+probe Ql (Unsp spec) Negative Normal NEGATIVE [facility] Comment on above: Result Comment: Nega tive results are presumptive. They do not preclude infection and should not be used as the sole basis for treatment decisions. Additional confirmatory testing by a molecular method should be considered. Performed By: #### C VDAGA #### [facility] [address] [place], [place] [id number] Vandana Jacobson CBC AUTO DIFFon 10-01-2020 BASO # 0.0 103/ul Normal 0.0-0.1 [facility] Comment on above: Performed By: #### D RUGRPD #### [facility] [address] [place], [place] [address] Vandana Indira Basophils/100 WBC (Bld) 0.1 % Critically low 0.2-2.0 [facility] Comment on above: Performed By: #### D JESID #### [facility] [address] [place], [place] [address] Vandana Indira EO # 0.0 103/ul Normal 0.0-0.7 [facility] Comment on above: Performed By: #### D JUDI #### [facility] [address] [place], [place] [address] Vandana Indira Eosinophils/100 WBC (Bld) 0.1 % Critically low 0.9-7.0 [facility] Comment on above: Performed By: #### D JUDI #### [facility] [address] [place] [address] Vandana Indira Erythrocyte distribution width (RBC) [Ratio] 15.8 % Critically high 11.0-15.0 [facility] Comment on above: Performed By: #### D JUDI #### [facility] [address] [place] [address] Vandana Indira Hematocrit (Bld) [Volume fraction] 40.2 % Normal 36.0-48.0 [facility] Comment on above: Performed By: #### D JUDI #### [facility] [address] [place], [place] [address] Vandana Indira Hemoglobin (Bld) [Mass/Vol] 13.4 g/dL Normal 12.0-16.0 [facility] Comment on above: Performed By: #### D JUDI #### [facility] [address] [place] [address] Vandana Indira IG # 0.04 10e3/ul Critically high 0.00-0.03 [facility] Comment on above: Performed By: #### D JUDI #### [facility] [address] [place] [address] Vandana Indira IG % 0.4 % Normal 0.0-0.5 [facility] Comment on above: Performed By: #### D JUDI #### [facility] [address] [id number] Vandana Indira LYMPH # 1.5 103/ul Normal 1.2-3.8 [facility] Comment on above: Performed By: #### D JESID #### [facility] [address] [place], [place] [address] Vandanadave Jacobson Lymphocytes/100 WBC (Bld) 14.7 % Critically low 20.5-60.0 [facility] Comment on above: Performed By: #### D JESID #### [facility] [address] [place], [place] [address] Vandana Jacobson MANUAL DIFF REQ NO Normal [facility] Comment on above: Performed By: #### D JUDI #### [facility] [address] [place], [place] [address] Vandana Indira MCH (RBC) [Entitic mass] 27.3 pg Normal 26.7-34.0 [facility] Comment on above: Performed By: #### D JUDI #### [facility] [address] [place] [address] Vandanadave Jacobson MCHC (RBC) [Mass/Vol] 33.3 g/dL Normal 29.9-35.2 [facility] Comment on above: Performed By: #### D JUDI #### [facility] [address] [place] [address] Vandanadave Jacobson MCV (RBC) [Entitic vol] 82.0 fL Normal 81.0-99.0 [facility] Comment on above: Performed By: #### D JUDI #### [facility] [address] [place], [place] [address] Vandana Indira MONO # 0.5 103/ul Normal 0.3-0.8 [facility] Comment on above: Performed By: #### D JESID #### [facility] [address] [place], [place] [address] Vandana Indira Monocytes/100 WBC (Bld) 5.2 % Normal 1.7-12.0 [facility] Comment on above: Performed By: #### D JUDI #### [facility] [address] [place], [place] [address] Vandana Jacobson NEUT # 8.1 103/ul Critically high 1.4-6.5 [facility] Comment on above: Performed By: #### D RUGRPD #### [facility] [address] [place], [place] [address] Vandana Jacobson Neutrophils/100 WBC (Bld) 79.5 % Critically high 43.0-75.0 [facility] Comment on above: Performed By: #### D RUGRPD #### [facility] [address] [place], [place] [address] Vandana Jacobson Platelet mean volume (Bld) [Entitic vol] 10.6 fL Normal 9.5-13.5 [facility] Comment on above: Performed By: #### D JESID #### [facility] [address] [place], [place] [address] Vandanadave Lien PLT 256 103/ul Normal 150-450 [facility] Comment on above: Performed By: #### D ACTHRYNRPD #### [facility] [address] [place] [address] Vandana Indira RBC 4.90 106/ul Normal 4.20-5.40 [facility] Comment on above: Performed By: #### D CATHRYNRPD #### [facility] [address] [place], [place] [address] Vandana Jacobson WBC 10.2 103/ul Normal 4.0-11.0 [facility] Comment on above: Performed By: #### D JESID #### [facility] [address] [place], [place] [address] Vandana Jacobson DRUG SCREEN RAPID (URINE)on 10-01-2020 AMP Negative Normal NEGATIVE [facility] Comment on above: Performed By: #### D JESID #### [facility] [address] [place], [place] [address] Vandana Indira BAR Negative Normal NEGATIVE [facility] Comment on above: Performed By: #### D JUDI #### [facility] [address] [place], [place] [address] Vandana Indira BUP Negative Normal NEGATIVE [facility] Comment on above: Performed By: #### D RUGRPD #### [facility] [address] [place] [address] Vandana Indira BZO Negative Normal NEGATIVE [facility] Comment on above: Performed By: #### D RUGRPD #### [facility] [address] [place] [address] Vandana Indira ROLANDA Negative Normal NEGATIVE [facility] Comment on above: Performed By: #### D RUGRPD #### [facility] [address] [place] [address] Vadnana Indira CUT-OFFS SEE BELOW Normal [facility] Comment on above: Result Comment: AMP (Amphetamine): 500ng/mL, BAR (Barbituates): 200 ng/mL, BZO (Benzodiazepines): 150 ng/mL, BUP (Buprenorphine): 10 ng/mL, ROLANDA (Cocaine): 150 ng/mL, mAMP (Methamphetamine): 500 ng/mL, MTD (Methadone): 200 ng/mL, OPI (Opiates): 100 ng/mL, OXY (Oxycodone): 100 ng/mL, PCP (Phencyclidine): 25 ng/mL, PPX (Propoxyphene): 300 ng/mL, THC (Cannabinoids): 50 ng/mL, TCA (Trycyclic Antidepressants): 300 ng/mL Performed By: #### D RUGRPD #### [facility] [address] [place] [address] Vandana Indira DRUG CUT HEADER DRUG CLASS TEST SYSTEM CUT-OFF CONCENTRATIONS ARE FOLLOWS: Normal [facility] Comment on above: Performed By: #### D RUGRPD #### [facility] [address] [place] [address] Vandana Indira mAMP Negative Normal NEGATIVE [facility] Comment on above: Performed By: #### D RUGRPD #### [facility] [address] [place] [address] Vandana Indira MTD Negative Normal NEGATIVE [facility] Comment on above: Performed By: #### D RUGRPD #### [facility] [address] [place] [address] Vandana Indira OPI Negative Normal NEGATIVE [facility] Comment on above: Performed By: #### D RUGRPD #### [facility] [address], [place] [address] Vandana Indira OXY Negative Normal NEGATIVE [facility] Comment on above: Performed By: #### D RUGRPD #### [facility] [address], [place] [address] Vandana Indira PCP Negative Normal NEGATIVE [facility] Comment on above: Performed By: #### D RUGRPD #### [facility] [address] [address] Vandana Indira PPX Negative Normal NEGATIVE [facility] Comment on above: Performed By: #### D RUGRPD #### [facility] [address] [address] Vandana Indira TCA Negative Normal NEGATIVE [facility] Comment on above: Performed By: #### D RUGRPD #### [facility] [address] [place], [place] [address] Vandana Indira THC Negative Normal NEGATIVE [facility] Comment on above: Performed By: #### D RUGRPD #### [facility] [address], [place] [address] Vandana Indira TYPE AND SCREENon 10-01-2020 TYPE AND SCREEN Negative Normal [facility] Comment on above: Performed By: #### D RUGRPD #### [facility] [address] [place] [address] Vandana Indira US PREG GROWTHon 09-12-2020 US [...] EFW: 6 lbs. 13 oz., 58% FL/AC: [id number] FL/BPD: 0.994232 HC/AC: 0.920953 GESTATIONAL AGE: Age by EDC: 36 weeks 6 days YUE by EDC: 10/04/2020 Age by US: 37 weeks 0 days YUE by US: 10/03/2020 IMPRESSION: Normal interval growth Electronically authenticated by: KECIA LEI Date: 2020-09-12 13:13 Normal [facility] HEMOGLOBINOPATHY FRACTIONATI ON CASCADEon 09-11-2020 HGB A 97.4 % Normal 96.4-98.8 [facility] Comment on above: Performed By: #### U MICRO, UACSIND #### [facility] [address], [place] [address] Vandana Indira HGB A2 2.6 % Normal 1.8-3.2 [facility] Comment on above: Performed By: #### U MICRO, UACSIND #### [facility] [address] [place] [address] Vandana Indira HGB F 0.0 % Normal 0.0-2.0 [facility] Comment on above: Performed By: #### U MICRO, UACSIND #### [facility] [address], [place] [address] Vandana Indira HGB S 0.0 % Normal 0.0 [facility] Comment on above: Performed By: #### U MICRO, UACSIND #### [facility] [address], [place] [address] Vandana Indira Interpretation: Comment Normal [facility] Comment on above: Result Comment: Norm al hemoglobin present; no hemoglobin variant or thalassemia observed. Performed By: #### U MICRO, UACSIND #### [facility] [address], [place] [address] Vandana Indira CBC AUTO DIFFon 09-10-2020 BASO # 0.0 103/ul Normal 0.0-0.1 [facility] Comment on above: Performed By: #### C BC #### [facility] [address], [place] [address] Vandana Indira Basophils/100 WBC (Bld) 0.1 % Critically low 0.2-2.0 [facility] Comment on above: Performed By: #### C BC #### [facility] [address] [address] Vandana Indira EO # 0.0 103/ul Normal 0.0-0.7 [facility] Comment on above: Performed By: #### C BC #### [facility] [address] [address] Vandana Indira Eosinophils/100 WBC (Bld) 0.4 % Critically low 0.9-7.0 [facility] Comment on above: Performed By: #### C BC #### [facility] [address] [address] Vandana Indira Erythrocyte distribution width (RBC) [Ratio] 16.0 % Critically high 11.0-15.0 [facility] Comment on above: Performed By: #### C BC #### [facility] [address] [place], [place] [address] Vandana Indira Hematocrit (Bld) [Volume fraction] 36.5 % Normal 36.0-48.0 [facility] Comment on above: Performed By: #### C BC #### [facility] [address] [address] Vandana Indira Hemoglobin (Bld) [Mass/Vol] 12.2 g/dL Normal 12.0-16.0 [facility] Comment on above: Performed By: #### C BC #### [facility] [address] [address] Vandana Indira IG # 0.07 10e3/ul Critically high 0.00-0.03 [facility] Comment on above: Performed By: #### C BC #### [facility] [address] [address] Vandana Indira IG % 0.9 % Critically high 0.0-0.5 [facility] Comment on above: Performed By: #### C BC #### [facility] [address] [address] Vandana Indira LYMPH # 1.9 103/ul Normal 1.2-3.8 [facility] Comment on above: Performed By: #### C BC #### [facility] [address] [place] [address] Vandana Indira Lymphocytes/100 WBC (Bld) 23.7 % Normal 20.5-60.0 [facility] Comment on above: Performed By: #### C BC #### [facility] [address] [place], [place] [address] Vandana Indira MANUAL DIFF REQ NO Normal [facility] Comment on above: Performed By: #### C BC #### [facility] [address] [place], [place] [address] Vandana Indira MCH (RBC) [Entitic mass] 27.4 pg Normal 26.7-34.0 [facility] Comment on above: Performed By: #### C BC #### [facility] [address] [place] [address] Vandana Indira MCHC (RBC) [Mass/Vol] 33.4 g/dL Normal 29.9-35.2 [facility] Comment on above: Performed By: #### C BC #### [facility] [address] [place], [place] [address] Vandana Indira MCV (RBC) [Entitic vol] 82.0 fL Normal 81.0-99.0 [facility] Comment on above: Performed By: #### C BC #### [facility] [address] [place] [address] Vandana Indira MONO # 0.7 103/ul Normal 0.3-0.8 [facility] Comment on above: Performed By: #### C BC #### [facility] [address] [place], [place] [address] Vandana Indira Monocytes/100 WBC (Bld) 8.8 % Normal 1.7-12.0 [facility] Comment on above: Performed By: #### C BC #### [facility] [address] [place], [place] [address] Vandana Indira NEUT # 5.3 103/ul Normal 1.4-6.5 [facility] Comment on above: Performed By: #### C BC #### [facility] [address] [place] [address] Vandana Jacobson Neutrophils/100 WBC (Bld) 66.1 % Normal 43.0-75.0 [facility] Comment on above: Performed By: #### C BC #### [facility] [address] [place], [place] [address] Vandana Jacobson Platelet mean volume (Bld) [Entitic vol] 11.6 fL Normal 9.5-13.5 [facility] Comment on above: Performed By: #### C BC #### [facility] [address] [place] [address] Vandana Jacobson PLT 221 103/ul Normal 150-450 [facility] Comment on above: Performed By: #### C BC #### [facility] [address] [place] [address] Vandana Jacobson RBC 4.45 106/ul Normal 4.20-5.40 [facility] Comment on above: Performed By: #### C BC #### [facility] [address] [place] [address] Vandana Jacobson WBC 8.1 103/ul Normal 4.0-11.0 [facility] Comment on above: Performed By: #### C BC #### [facility] [address] [place], [place] [address] Vandana Jacobson VAGINITIS/VAGINOSIS DNA PROB Miller 09-08-2020 Antonino species Negative Normal Negative [facility] Comment on above: Performed By: #### V AGINT #### [facility] [address] [place] [address] Vandana Jacobson Gardnerella vaginalis Negative Normal Negative [facility] Comment on above: Performed By: #### V AGINT #### [facility] [address] [place], [place] [address] Vandana Jacobson Trichomonas vaginalis Negative Normal Negative [facility] Comment on above: Performed By: #### V AGINT #### [facility] [address] [place], [place] [address] Vandana Jacobson CHLAMYDIA/GONOCOCCUS RAMA (SW AB/URINE/PAPon 09-07-2020 Chlamydia trachomatis, RAMA Negative Normal Negative [facility] Comment on above: Performed By: #### D RUGRPD #### [facility] [address] [place] [address] Vandanadave Jacobson Neisseria gonorrhoeae, RAMA Negative Normal Negative [facility] Comment on above: Performed By: #### D RUGRPD #### [facility] [address] [place] [address] Vandana Jacobson GROUP B STREP CULTUREon S. agalactiae Ag Ql (Unsp spec) Culture Observations: NEGATIVE FOR GROUP B STREPTOCOCCUS. Normal [facility] Comment on above: Performed By: #### D RUGRPD #### [facility] [address] [place] [address] Vandana Jacobson CULTURE URINEon 08-31-2020 CULTURE URINE Culture Observations: LIGHT GROWTH OF MIXED GENITAL TEDDY. NO POTENTIAL PATHOGENS SEEN. Normal [facility] Comment on above: Performed By: #### D RUGRPD #### [facility] [address] [place] [address] Vandana Indira UA (CLEAN/CATCH) CADDY/MICRO I F IND.on 08-31-2020 Bilirubin Ql (U) Negative Normal NEGATIVE [facility] Comment on above: Performed By: #### U MICRO, UACSIND #### [facility] [address] [place] [address] Vandana Indira Clarity (U) SL CLOUDY Abnormal CLEAR [facility] Comment on above: Performed By: #### U MICRO, UACSIND #### [facility] [address] [place] [address] Vandana Indira Color (U) LT. YELLOW Normal YELLOW [facility] Comment on above: Performed By: #### U MICRO, UACSIND #### [facility] [address] [place] [address] Vandana Indira Glucose Ql (U) Negative Normal NEGATIVE [facility] Comment on above: Performed By: #### U MICRO, UACSIND #### [facility] [address] [place] [address] Vandana Indira Hemoglobin Ql (U) Negative Normal NEGATIVE [facility] Comment on above: Performed By: #### U MICRO, UACSIND #### [facility] [address] [address] Vandana Indira Ketones Ql (U) 15 mg/dl Abnormal NEGATIVE [facility] Comment on above: Performed By: #### U MICRO, UACSIND #### [facility] [address] [place] [address] Vandana Indira LEUKOCYTES SMALL Abnormal NEGATIVE [facility] Comment on above: Performed By: #### U MICRO, UACSIND #### [facility] [address] [place] [address] Vandana Indira Nitrite Ql (U) Negative Normal NEGATIVE [facility] Comment on above: Performed By: #### U MICRO, UACSIND #### [facility] [address] [place] [address] Vandana Indira pH (U) 7.0 [pH] Normal 5-9 [facility] Comment on above: Performed By: #### U MICRO, UACSIND #### [facility] [address] [place] [address] Vandana Indira SPEC GRAVITY 1.015 Normal 1.005-<=1.025 [facility] Comment on above: Performed By: #### U MICRO, UACSIND #### [facility] [address] [place] [address] Vandana Indira UA PROTEIN Negative Normal NEGATIVE/ TRACE [facility] Comment on above: Performed By: #### U MICRO, UACSIND #### [facility] [address] [place] [address] Vandana Indira UR MICRO IND INDICATED Normal [facility] Comment on above: Performed By: #### U MICRO, UACSIND #### [facility] [address] [place] [address] Vandana Indira Urobilinogen Qn (U) 0.2 {Richard'U}/dL Normal 0.2 - 1. 0 [facility] Comment on above: Performed By: #### U MICRO, UACSIND #### [facility] [address] [place], [place] [address] Vandana Indira URINE MICROSCOPIC ONLYon BACTERIA SMALL Abnormal NONE SEEN [facility] Comment on above: Performed By: #### U MICRO, UACSIND #### [facility] [address] [address] Vandana Indira Bacteria identified Cx Nom (U) INDICATED Normal [facility] Comment on above: Performed By: #### U MICRO, UACSIND #### [facility] [address] [place] [address] Vandana Indira CAST NONE SEEN Normal NONE SEEN [facility] Comment on above: Performed By: #### U MICRO, UACSIND #### [facility] [address] [place] [address] Vandana Indira Crystals LM Nom (Urine sed) NONE SEEN Normal NONE SEEN [facility] Comment on above: Performed By: #### U MICRO, UACSIND #### [facility] [address] [place] [address] Vandana Indira Epithelial cells LM Ql (Urine sed) MODERATE Abnormal NONE SEEN /RARE [facility] Comment on above: Performed By: #### U MICRO, UACSIND #### [facility] [address] [place] [address] Vandana Indira MUCOUS NONE SEEN Normal NONE SEEN [facility] Comment on above: Performed By: #### U MICRO, UACSIND #### [facility] [address] [place] [address] Vandana Indira RBC NONE SEEN Abnormal 0-2 [facility] Comment on above: Performed By: #### U MICRO, UACSIND #### [facility] [address] [place] [address] Vandana Indira WBC NONE SEEN Normal NONE SEEN [facility] Comment on above: Performed By: #### U MICRO, UACSIND #### [facility] [address] [place], [place] [id number] Vandana Indira CULTURE URINEon 08-01-2020 CULTURE URINE Culture Observations: LIGHT GROWTH OF MIXED GENITAL TEDDY. NO POTENTIAL PATHOGENS SEEN. Normal [facility] Comment on above: Performed By: #### U RCX #### [facility] [address] [address] Vandana Indira UA RANDOM W/MICROSCOPICon BACTERIA TRACE Abnormal NONE SEEN [facility] Comment on above: Performed By: #### U AMIC #### [facility] [address] [place], [place] [id number] Vandana Indira Bilirubin Ql (U) Negative Normal NEGATIVE [facility] Comment on above: Performed By: #### U AMIC #### [facility] [address] [id number] Vandana Indira CAST NONE SEEN Normal NONE SEEN [facility] Comment on above: Performed By: #### U AMIC #### [facility] [address] [place] [address] Vandana Indira Clarity (U) CLEAR Normal CLEAR [facility] Comment on above: Performed By: #### U AMIC #### [facility] [address] [place], [place] [id number] Vandana Indira Color (U) LT. YELLOW Normal YELLOW [facility] Comment on above: Performed By: #### U AMIC #### [facility] [address] [place] [address] Vandana Indira Crystals LM Nom (Urine sed) NONE SEEN Normal NONE SEEN [facility] Comment on above: Performed By: #### U AMIC #### [facility] [address] [place], [place] [id number] Vandana Indira Epithelial cells LM Ql (Urine sed) FEW Abnormal NONE SEEN /RARE [facility] Comment on above: Performed By: #### U AMIC #### [facility] [address] [place] [address] Vandana Indira Glucose Ql (U) Negative Normal NEGATIVE [facility] Comment on above: Performed By: #### U AMIC #### [facility] [address] [place], [place] [id number] Vandana Indira Hemoglobin Ql (U) Negative Normal NEGATIVE [facility] Comment on above: Performed By: #### U AMIC #### [facility] [address] [place], [place] [id number] Vandana Indira Ketones Ql (U) Negative Normal NEGATIVE [facility] Comment on above: Performed By: #### U AMIC #### [facility] [address] [place] [address] Vandana Indira LEUKOCYTES Negative Normal NEGATIVE [facility] Comment on above: Performed By: #### U AMIC #### [facility] [address] [place], [place] [id number] Vandana Indira MUCOUS NONE SEEN Normal NONE SEEN [facility] Comment on above: Performed By: #### U AMIC #### [facility] [address] [place] [address] Vandana Indira Nitrite Ql (U) Negative Normal NEGATIVE [facility] Comment on above: Performed By: #### U AMIC #### [facility] [address] [place] [address] Vandana Indira pH (U) 7.5 [pH] Normal 5-9 [facility] Comment on above: Performed By: #### U AMIC #### [facility] [address] [place] [address] Vandana Indira RBC 0-2 Normal 0-2 [facility] Comment on above: Performed By: #### U AMIC #### [facility] [address] [place] [address] Vandana Indira SPEC GRAVITY 1.015 Normal 1.005-<=1.025 [facility] Comment on above: Performed By: #### U AMIC #### [facility] [address] [place] [address] Vandana Indira UA PROTEIN Negative Normal NEGATIVE/ TRACE [facility] Comment on above: Performed By: #### U AMIC #### [facility] [address] [place] [address] Vandana Indira Urobilinogen Qn (U) 0.2 {Richard'U}/dL Normal 0.2 - 1. 0 [facility] Comment on above: Performed By: #### U AMIC #### [facility] [address] [place] [address] Vandana Indira WBC 0-2 Abnormal NONE SEEN [facility] Comment on above: Performed By: #### U AMIC #### [facility] [address] [place], [place] [id number] Vandana Indira CBC AUTO DIFFon 12-17-2019 BASO # 0.0 103/ul Normal 0.0-0.1 [facility] Comment on above: Performed By: #### C BC #### [facility] [address] [place], [place] [address] Vandana Indira Basophils/100 WBC (Bld) 0.1 % Critically low 0.2-2.0 [facility] Comment on above: Performed By: #### C BC #### [facility] [address] [place], [place] [address] Vandana Indira EO # 0.1 103/ul Normal 0.0-0.7 [facility] Comment on above: Performed By: #### C BC #### [facility] [address] [place] [address] Vandana Indira Eosinophils/100 WBC (Bld) 0.9 % Normal 0.9-7.0 [facility] Comment on above: Performed By: #### C BC #### [facility] [address] [place] [address] Vandana Indira Erythrocyte distribution width (RBC) [Ratio] 14.3 % Normal 11.0-15.0 [facility] Comment on above: Performed By: #### C BC #### [facility] [address] [place], [place] [id number] Vandana Indira Hematocrit (Bld) [Volume fraction] 40.5 % Normal 36.0-48.0 [facility] Comment on above: Performed By: #### C BC #### [facility] [address] [place] [address] Vandana Indira Hemoglobin (Bld) [Mass/Vol] 13.2 g/dL Normal 12.0-16.0 [facility] Comment on above: Performed By: #### C BC #### [facility] [address] [place] [address] Vandana Indira IG # 0.01 10e3/ul Normal 0.00-0.03 [facility] Comment on above: Performed By: #### C BC #### [facility] [address] [id number] Vandana Indira IG % 0.1 % Normal 0.0-0.5 [facility] Comment on above: Performed By: #### C BC #### [facility] [address] [place], [place] [address] Vandana Indira LYMPH # 2.0 103/ul Normal 1.2-3.8 [facility] Comment on above: Performed By: #### C BC #### [facility] [address] [place], [place] [address] Vandana Jacobson Lymphocytes/100 WBC (Bld) 27.9 % Normal 20.5-60.0 [facility] Comment on above: Performed By: #### C BC #### [facility] [address] [place] [address] Vadnana Jacobson MANUAL DIFF REQ NO Normal [facility] Comment on above: Performed By: #### C BC #### [facility] [address] [place] [address] Vandanadave Jacobson MCH (RBC) [Entitic mass] 25.7 pg Critically low 26.7-34.0 [facility] Comment on above: Performed By: #### C BC #### [facility] [address] [place] [address] Vandana Jacobson MCHC (RBC) [Mass/Vol] 32.6 g/dL Normal 29.9-35.2 [facility] Comment on above: Performed By: #### C BC #### [facility] [address] [place] [address] Vandanadave Jacobson MCV (RBC) [Entitic vol] 78.9 fL Critically low 81.0-99.0 [facility] Comment on above: Performed By: #### C BC #### [facility] [address] [place] [address] Vandana Indira MONO # 0.5 103/ul Normal 0.3-0.8 [facility] Comment on above: Performed By: #### C BC #### [facility] [address] [place] [address] Vandana Jacobson Monocytes/100 WBC (Bld) 7.0 % Normal 1.7-12.0 [facility] Comment on above: Performed By: #### C BC #### [facility] [address] [id number] Vandana Jacobson NEUT # 4.5 103/ul Normal 1.4-6.5 [facility] Comment on above: Performed By: #### C BC #### [facility] [address] [address] Vandana Jacobson Neutrophils/100 WBC (Bld) 64.0 % Normal 43.0-75.0 [facility] Comment on above: Performed By: #### C BC #### [facility] [address] [place] [address] Vandana Jacobson Platelet mean volume (Bld) [Entitic vol] 8.9 fL Critically low 9.5-13.5 [facility] Comment on above: Performed By: #### C BC #### [facility] [address] [place] [address] Vandana Lien PLT 345 103/ul Normal 150-450 [facility] Comment on above: Performed By: #### C BC #### [facility] [address] [place] [address] Vandana Jacobson RBC 5.13 106/ul Normal 4.20-5.40 [facility] Comment on above: Performed By: #### C BC #### [facility] [address] [place] [address] Vandanadave Jacobson WBC 7.1 103/ul Normal 4.0-11.0 [facility] Comment on above: Performed By: #### C BC #### [facility] [address] [id number] Vandana Jacobson FERRITINon 12-17-2019 Ferritin [Mass/Vol] 27.0 ng/mL Normal 6.2-137.0 [facility] Comment on above: Performed By: #### D RUGRPD #### [facility] [address] [place], [place] [address] Vandanadave Jacobson IRONon 12-17-2019 Iron [Mass/Vol] 35.0 ug/dL Critically low 37.0-170.0 [facility] Comment on above: Performed By: #### D JUDI #### [facility] [address] [place], [place] [address] Vandanadave Jacobson PROF 14(COMP METB)on 020 Albumin [Mass/Vol] 3.7 g/dL Normal 3.5-5.0 [facility] Comment on above: Performed By: #### C MP #### [facility] [address] [place], [place] [address] Vandana Indira Albumin/Globulin [Mass ratio] 0.9 {ratio} Normal [facility] Comment on above: Performed By: #### C MP #### [facility] [address] [place], [place] [address] Vandana Indira ALP [Catalytic activity/Vol] 82 U/L Normal 38-126 [facility] Comment on above: Performed By: #### C MP #### [facility] [address] [place], [place] [address] Vandana Indira ALT [Catalytic activity/Vol] 21 U/L Normal 9-52 [facility] Comment on above: Performed By: #### C MP #### [facility] [address] [place], [place] [address] Vandana Indira Anion gap [Moles/Vol] 12.5 mmol/L Normal [facility] Comment on above: Performed By: #### C MP #### [facility] [address] [place], [place] [address] Vandana Indira AST [Catalytic activity/Vol] 15 U/L Normal 14-36 [facility] Comment on above: Performed By: #### C MP #### [facility] [address] [place], [place] [address] Vandana Indira Bilirubin [Mass/Vol] 0.3 mg/dL Normal 0.2-1.3 [facility] Comment on above: Performed By: #### C MP #### [facility] [address] [place], [place] [address] Vandana Indira Calcium [Mass/Vol] 9.5 mg/dL Normal 8.4-10.2 [facility] Comment on above: Performed By: #### C MP #### [facility] [address] [place] [address] Vandana Indira Chloride [Moles/Vol] 104 mmol/L Normal 98-107 [facility] Comment on above: Performed By: #### C MP #### [facility] [address] [place] [address] Vandana Indira CO2 [Moles/Vol] 28.4 mmol/L Normal 22.0-30.0 [facility] Comment on above: Performed By: #### C MP #### [facility] [address] [place] [address] Vandana Indira Creatinine [Mass/Vol] 0.69 mg/dL Normal 0.52-1.04 [facility] Comment on above: Performed By: #### C MP #### [facility] [address] [place] [address] Vandana Indira EGFR-AF BRITISH >60 Normal >=60 [facility] Comment on above: Performed By: #### C MP #### [facility] [address] [place] [address] Vnadana Indira EGFR-NON AF BRITISH >60 Normal >=60 [facility] Comment on above: Performed By: #### C MP #### [facility] [address] [place] [address] Vandana Indira Globulin (S) [Mass/Vol] 4.1 g/dL Normal [facility] Comment on above: Performed By: #### C MP #### [facility] [address] [place] [address] Vandana Indira Glucose [Mass/Vol] 94 mg/dL Normal 74-106 [facility] Comment on above: Performed By: #### C MP #### [facility] [address] [place] [address] Vandana Indira Potassium [Moles/Vol] 3.9 mmol/L Normal 3.4-5.0 [facility] Comment on above: Performed By: #### C MP #### [facility] [address] [place], [place] [address] Vandana Indira Protein [Mass/Vol] 7.8 g/dL Normal 6.1-8.2 [facility] Comment on above: Performed By: #### C MP #### [facility] [address] [id number] Vandana Indira Sodium [Moles/Vol] 141 mmol/L Normal 137-145 [facility] Comment on above: Performed By: #### C MP #### [facility] [address] [id number] Vandana Indira Urea nitrogen [Mass/Vol] 16.0 mg/dL Normal 7.0-17.0 [facility] Comment on above: Performed By: #### C MP #### [facility] [address] [id number] Vandana Indira Urea nitrogen/Creatinine [Mass ratio] 23.2 mg/mg Normal [facility] Comment on above: Performed By: #### C MP #### [facility] [address] [id number] Vandanadave Lien PROTIMEon 12-17-2019 INR Coag (PPP) [Relative time] 0.97 {INR} Normal [facility] Comment on above: Performed By: #### D RUGRPD #### [facility] [address] [id number] Vnadana Indira INR GUIDELINES SEE BELOW Normal [facility] Comment on above: Result Comment: ABHIJIT RED INR: 2.0 - 3.0 CONDITIONS NOT LISTED BELOW 2.5 - 3.5 FOR PROSTHETIC HEART VALVE REPLACEMENT 2.5 - 3.5 RECURRENT THROMBOSIS Performed By: #### D RUGRPD #### [facility] [address] [id number] Vandana Indira PT Coag (PPP) [Time] 10.3 s Normal 9.0-11.6 [facility] Comment on above: Performed By: #### D RUGRPD #### [facility] [address] [id number] Vandana Indira PT NORMAL PLEASE NOTE: NORMAL RANGE CHANGE 11-24-2013 DUE TO REAGENT LOT CHANGE Normal [facility] Comment on above: Performed By: #### D RUGRPD #### [facility] [address] [place], [place] [address] Vandana Jacobson PTTon 12-17-2019 aPTT Coag (Bld) [Time] 30.7 s Normal 22.3-36.2 [facility] Comment on above: Performed By: #### D RUGRPD #### [facility] [address] [place], [place] [address] Vandana Jacobson PTT NORMAL PLEASE NOTE: NORMAL RANGE CHANGE 01-31-2015 DUE TO REAGENT LOT CHANGE Normal [facility] Comment on above: Performed By: #### D RUGRPD #### [facility] [address] [place], [place] [address] Vandana Jacobson Vital Signs Date Time Vital Sign Value Performing Clinician Facility 10-25-2024 13:34-0400 Body mass index (BMI) [Ratio] 35.55 kg/m2 Sarah NGUYEN Work Phone: [facility] 10-25-2024 13:34-0400 Body weight 79.83 kg Sarah NGUYEN Work Phone: [facility] 10-25-2024 13:34-0400 Diastolic blood pressure 70 mm[Hg] Sarah NGUYEN Work Phone: [facility] 10-25-2024 13:34-0400 Systolic blood pressure 100 mm[Hg] Sarah NGUYEN Work Phone: [facility] 10-17-2024 09:35-0400 Body mass index (BMI) [Ratio] 35.35 kg/m2 Newton Raul DO Work Phone: [facility] 10-17-2024 09:35-0400 Body weight 79.38 kg Newton Raul DO Work Phone: [facility] 10-17-2024 09:35-0400 Diastolic blood pressure 72 mm[Hg] Newton Raul DO Work Phone: [facility] 10-17-2024 09:35-0400 Systolic blood pressure 120 mm[Hg] Newton Raul DO Work Phone: [facility] 10-10-2024 10:50-0400 Body mass index (BMI) [Ratio] 34.74 kg/m2 Sarah Kern PA Work Phone: [facility] 10-10-2024 10:50-0400 Body weight 78.02 kg Sarah Kern PA Work Phone: [facility] 10-10-2024 10:50-0400 Diastolic blood pressure 68 mm[Hg] Sarah Kern PA Work Phone: [facility] 10-10-2024 10:50-0400 Systolic blood pressure 114 mm[Hg] Sarah Kern PA Work Phone: [facility] 09-26-2024 14:58-0400 Body mass index (BMI) [Ratio] 34.29 kg/m2 Newton Raul DO Work Phone: [facility] 09-26-2024 14:58-0400 Body weight 77 kg Newton Raul DO Work Phone: [facility] 09-26-2024 14:58-0400 Diastolic blood pressure 74 mm[Hg] Newton Raul DO Work Phone: [facility] 09-26-2024 14:58-0400 Systolic blood pressure 108 mm[Hg] Newton Raul DO Work Phone: [facility] 09-14-2024 15:47-0400 Body mass index (BMI) [Ratio] 33.93 kg/m2 Newton Raul DO Work Phone: [facility] 09-14-2024 15:47-0400 Body weight 76.2 kg Newton Raul DO Work Phone: [facility] 09-14-2024 15:47-0400 Diastolic blood pressure 74 mm[Hg] Newton Raul DO Work Phone: [facility] 09-14-2024 15:47-0400 Systolic blood pressure 110 mm[Hg] Newton Raul DO Work Phone: [facility] 09-01-2024 14:27-0400 Body mass index (BMI) [Ratio] 33.98 kg/m2 Sarah Kern PA Work Phone: [facility] 09-01-2024 14:27-0400 Body weight 76.32 kg Sarah [place] PA Work Phone: [facility] 09-01-2024 14:27-0400 Diastolic blood pressure 70 mm[Hg] Sarah Kern PA Work Phone: [facility] 09-01-2024 14:27-0400 Systolic blood pressure 108 mm[Hg] Sarah Kern PA Work Phone: [facility] 08-11-2024 11:06-0400 Body mass index (BMI) [Ratio] 33.53 kg/m2 Newton Raul DO Work Phone: [facility] 08-11-2024 11:06-0400 Body weight 75.3 kg Newton Raul DO Work Phone: [facility] 08-11-2024 11:06-0400 Diastolic blood pressure 70 mm[Hg] Newton Raul DO Work Phone: [facility] 08-11-2024 11:06-0400 Systolic blood pressure 118 mm[Hg] Newton Raul DO Work Phone: [facility] 07-20-2024 09:34-0400 Body mass index (BMI) [Ratio] 32.52 kg/m2 Yris Castellanos BOTTOMING MACHINE OPERATOR Work Phone: [facility] 07-20-2024 09:34-0400 Body weight 73.03 kg Yris Jasmin BOTTOMING MACHINE OPERATOR Work Phone: [facility] 07-20-2024 09:34-0400 Diastolic blood pressure 72 mm[Hg] Yris Jasmin BOTTOMING MACHINE OPERATOR Work Phone: [facility] 07-20-2024 09:34-0400 Systolic blood pressure 118 mm[Hg] Yris Jasmin BOTTOMING MACHINE OPERATOR Work Phone: [facility] 06-06-2024 11:33-0400 Body mass index (BMI) [Ratio] 31.67 kg/m2 Sarah Isamar PA Work Phone: [facility] 06-06-2024 11:33-0400 Body weight 71.12 kg Sarah [place] PA Work Phone: [facility] 06-06-2024 11:33-0400 Diastolic blood pressure 70 mm[Hg] Sarah [place] PA Work Phone: [facility] 06-06-2024 11:33-0400 Systolic blood pressure 120 mm[Hg] Sarah Isamar PA Work Phone: [facility] 05-09-2024 10:21-0500 Body mass index (BMI) [Ratio] 31.99 kg/m2 Newton Raul DO Work Phone: [facility] 05-09-2024 10:21-0500 Body weight 71.85 kg Newton Raul DO Work Phone: [facility] 05-09-2024 10:21-0500 Diastolic blood pressure 76 mm[Hg] Newton Raul DO Work Phone: [facility] 05-09-2024 10:21-0500 Systolic blood pressure 122 mm[Hg] Newton Raul DO Work Phone: [facility] 04-07-2024 13:43-0500 Body mass index (BMI) [Ratio] 32.52 kg/m2 Nom Nurse [facility] 04-07-2024 13:43-0500 Body weight 73.03 kg [facility] Nurse [facility] 04-07-2024 13:43-0500 Diastolic blood pressure 72 mm[Hg] [facility] Nurse [facility] 04-07-2024 13:43-0500 Systolic blood pressure 118 mm[Hg] Nom Nurse [facility] 01-06-2024 10:50-0400 Body height 149.9 cm Sarah Isamar PA Work Phone: [facility] [facility] 01-06-2024 10:50-0400 Body mass index (BMI) [Ratio] 32.47 kg/m2 Sarah Sh[place] PA Work Phone: [facility] 01-06-2024 10:50-0400 Body weight 72.92 kg Sarah NGUYEN Work Phone: [facility] 01-06-2024 10:50-0400 Diastolic blood pressure 78 mm[Hg] Sarah NGUYEN Work Phone: [facility] 01-06-2024 10:50-0400 Systolic blood pressure 118 mm[Hg] Sarah Isamar NGUYEN Work Phone: [facility] 04-30-2023 10:23-0500 Diastolic blood pressure 84 mm[Hg] PHYSICIAN NO [facility] [place] 04-30-2023 10:23-0500 Heart rate 67 /min PHYSICIAN NO [facility] 04-30-2023 10:23-0500 Respiratory rate 18 /min PHYSICIAN NO [facility] 04-30-2023 10:23-0500 SaO2% (BldA) [Mass fraction] 99 % PHYSICIAN NO [facility] [place] 04-30-2023 10:23-0500 Systolic blood pressure 130 mm[Hg] PHYSICIAN NO [facility] [place] 04-30-2023 08:53-0500 Body temperature 98.3 [degF] PHYSICIAN NO [facility] 04-30-2023 08:12-0500 Inhaled oxygen flow rate 8 L/min PHYSICIAN NO [facility] [place] 04-30-2023 07:44-0500 Body height 152.4 cm PHYSICIAN NO [facility] 04-30-2023 07:44-0500 Body mass index (BMI) [Ratio] 28.7 kg/m2 PHYSICIAN NO [facility] [place] 04-30-2023 07:44-0500 Body weight 66.67 kg PHYSICIAN NO [facility] 04-24-2023 11:55-0500 Diastolic blood pressure 86 mm[Hg] PHYSICIAN NO [facility] [place] 04-24-2023 11:55-0500 Heart rate 65 /min PHYSICIAN NO [facility] 04-24-2023 11:55-0500 Respiratory rate 16 /min PHYSICIAN NO [facility] 04-24-2023 11:55-0500 SaO2% (BldA) [Mass fraction] 100 % PHYSICIAN NO [facility] [place] 04-24-2023 11:55-0500 Systolic blood pressure 119 mm[Hg] PHYSICIAN NO [facility] [place] 04-24-2023 11:07-0500 Body temperature 98 [degF] PHYSICIAN NO [facility] 04-24-2023 10:42-0500 Inhaled oxygen flow rate 8 L/min PHYSICIAN NO [facility] [place] 04-24-2023 08:52-0500 Body height 152.4 cm PHYSICIAN NO [facility] 04-24-2023 08:52-0500 Body mass index (BMI) [Ratio] 29 kg/m2 PHYSICIAN NO [facility] [place] 04-24-2023 08:52-0500 Body weight 67.58 kg PHYSICIAN NO [facility] 04-20-2023 08:56-0500 Body mass index (BMI) [Ratio] 30.09 kg/m2 Dawn Huitron MD Work Phone: [facility] 04-20-2023 08:56-0500 Body weight 67.59 kg Dawn Huitron MD Work Phone: [facility] 04-20-2023 08:56-0500 Diastolic blood pressure 66 mm[Hg] Dawn Huitron MD Work Phone: [facility] 04-20-2023 08:56-0500 Systolic blood pressure 110 mm[Hg] Dawn Huitron MD Work Phone: [facility] Healthcare Encounters Encounter Date Encounter Type Care Provider Facility Start: 10-25-2024 End: 10-25-2024 Bamboo flowsheet Sarah NGUYEN Work Phone: [facility] Start: 10-25-2024 End: 10-25-2024 Bamboo flowsheet Sarah NGUYEN Work Phone: [facility] Start: 10-25-2024 End: 10-25-2024 flow sheet Sarah NGUYEN Work Phone: [facility] Comment on above: 36 weeks gestation o f ([facility]); Third trimester ([facility]) Start: 10-17-2024 End: 10-17-2024 Bamboo flowsheet Newton Raul DO Work Phone: [facility] Start: 10-17-2024 End: 10-17-2024 Bamboo flowsheet Newton Raul DO Work Phone: [facility] Start: 10-17-2024 End: 10-17-2024 flow sheet Newton Raul DO Work Phone: [facility] Comment on above: Third trimester preg ayanna ([facility]); 35 weeks gestation of ([facility]) Start: 10-17-2024 End: 10-17-2024 ambulatory NEWTON RUAL Not Available Start: 10-10-2024 End: 10-10-2024 Bamboo flowsheet Sarah NGUYEN Work Phone: [facility] Start: 10-10-2024 End: 10-10-2024 Bamboo flowsheet Sarah NGUYEN Work Phone: [facility] Start: 10-10-2024 End: 10-10-2024 flow sheet Sarah NGUYEN Work Phone: [facility] Comment on above: Third trimester preg ayanna ([facility]); 34 weeks gestation of ([facility]); Urinary tract infection without hematuria, site unspecified Start: 10-10-2024 End: 10-10-2024 ambulatory SARAH KERN Not Available Start: 10-09-2024 End: 10-12-2024 Clinisync Result Encounter Generic External Data Provider [facility] External Department Unsolicited Start: 10-09-2024 End: 10-12-2024 Clinisync Result Encounter Generic External Data Provider [facility] External Department Unsolicited Start: 09-26-2024 End: 09-26-2024 flow sheet Newton Raul DO Work Phone: [facility] Comment on above: Third trimester preg ayanna ([facility]); 32 weeks gestation of ([facility]) Start: 09-26-2024 End: 09-26-2024 ambulatory ENWTON RAUL Not Available Start: 09-26-2024 End: 09-26-2024 Bamboo flowsheet Newton Raul DO Work Phone: [facility] Start: 09-26-2024 End: 09-26-2024 Bamboo flowsheet Newton Raul DO Work Phone: [facility] Start: 09-14-2024 End: 09-14-2024 flow sheet Newton Raul DO Work Phone: [facility] Comment on above: Third trimester preg ayanna ([facility]); 30 weeks gestation of ([facility]) Start: 09-14-2024 End: 09-14-2024 ambulatory NEWTON RAUL Not Available Start: 09-03-2024 End: 09-03-2024 Clinisync Result Encounter Generic External Data Provider [facility] External Department Unsolicited Start: 09-03-2024 End: 09-03-2024 Clinisync Result Encounter Generic External Data Provider [facility] External Department Unsolicited Start: 09-01-2024 End: 09-01-2024 flow sheet Sarah NGUYEN Work Phone: [facility] Comment on above: Third trimester preg ayanna ([facility]); 28 weeks gestation of ([facility]); size inconsistent with dates ([facility]); Nonintractable headache, unspecified chronicity pattern, unspecified headache [...] 07-20-2024 End: 07-20-2024 Bamboo flowsheet Yris Castellanos BOTTOMING MACHINE OPERATOR Work Phone: [facility] Start: 07-20-2024 End: 07-20-2024 Bamboo flowsheet Yris Castellanos BOTTOMING MACHINE OPERATOR Work Phone: [facility] Start: 07-20-2024 End: 07-20-2024 flow sheet Yris Jasmin BOTTOMING MACHINE OPERATOR Work Phone: [facility] Comment on [...] 06-06-2024 End: 06-06-2024 Patient encounter procedure Sarah NUGYEN Work Phone: [facility] Start: 06-06-2024 End: 06-06-2024 Periodic preventive [...] flow sheet Newton Raul DO Work Phone: [facility] Comment on above: First [...] 01-06-2024 Bamboo flowsheet Sarah NGUYEN Work Phone: [facility] Start: 01-06-2024 End: 01-06-2024 Bamboo flowsheet Sarah NGUYEN Work Phone: [facility] Start: 01-06-2024 End: 01-06-2024 Postop [...] Start: 11-13-2023 End: 11-13-2023 ambulatory PHYSICIAN NO [facility] Work Phone: Start: 11-13-2023 End: 11-13-2023 Departed Referred PHYSICIAN NO [facility] Work Phone: Start: 11-12-2023 End: 11-12-2023 Clinisync Result Encounter Newton Raul DO Work Phone: [facility] Unsolicited Start: 11-12-2023 End: 11-12-2023 Clinisync Result Encounter Newton Raul DO Work Phone: [facility] Unsolicited Start: 04-29-2023 End: 04-30-2023 Patient encounter procedure PHYSICIAN NO [facility] Start: 04-29-2023 End: 04-30-2023 ambulatory PHYSICIAN NO [facility] Work Phone: Start: 04-24-2023 End: 04-24-2023 Admission to same day surgery center PHYSICIAN NO [facility] [place] Start: 04-24-2023 End: 04-24-2023 ambulatory PHYSICIAN [facility] Work Phone: Start: 04-20-2023 End: 04-20-2023 [...] BURK Facility:H1 Start: 09-12-2020 End: 09-13-2020 ambulatory PUMP INSTALLATION AND SERVICER ALINA AICHHOLZ Facility:[facility]1 Start: 09-10-2020 End: 09-11-2020 ambulatory KOFI CURRIE Facility:[facility] Start: 09-06-2020 End: 09-06-2020 ambulatory PU[employer] INSTALLATION AND SERVICER ALINA AICHHOLZ Facility:[facility]1 Start: 08-31-2020 End: 08-31-2020 ambulatory PUMP INSTALLATION AND SERVICER ALINA AICHHOLZ Facility:H1 Start: 08-01-2020 End: 08-01-2020 ambulatory PUMP INSTALLATION AND SERVICER ALINA AICHHOLZ Facility:[facility]1 Start: 12-17-2019 End: 12-18-2019 ambulatory PUMP INSTALLATION AND SERVICER ALINA AICHHOLZ Facility:[facility]1 Procedures Date Procedure Procedure Detail Performing Clinician Start: 10-25-2024 Urnls dip stick/tabl et rgnt non-auto w/o micrscp Sarah NGUYEN Work Phone: Start: 10-10-2024 Urnls dip stick/tabl et rgnt non-auto w/o micrscp Sarah NGUYEN Work Phone: Start: 10-09-2024 Bacteria identified in Urine by Culture Generic External Data Provider Start: 09-26-2024 Urnls dip stick/tabl et rgnt non-auto w/o micrscp Newton Carter DO Work Phone: Start: 09-14-2024 Urnls dip stick/tabl et rgnt [...] 11-12-2023 ALL CBC WITH AUTO DIFF Newton Ralu DO Work Phone: Start: 04-30-2023 Dilation and curetta ge of uterus PHYSICIAN NO FAMILY Start: 04-30-2023 Pelvic echography PHYSI RADHA NO FAMILY Start: 04-30-2023 Transvaginal echography PHYSICIAN NO FAMILY Start: 04-29-2023 Antibody screen PHYSICI AN NO FAMILY Comment on above: Result Comment: PERF ORMED BY: [facility] [address] [place] [address] PATHOLOGIST SCAFFOLD BUILDER CHUY PALOMO M.D. Start: 04-24-2023 Dilation and curetta ge of uterus PHYSICIAN NO FAMILY Start: 10-01-2020 Delivery of Products of Conception, External Approach TERENCE SCHMITZ Start: 10-01-2020 Repair Vulva, Hand Straightener al Approach TERENCE SCHMITZ Plan of Treatment Date Care Activity Detail Author Start: 11-07-2024 Influenza [facility] Start: 11-02-2024 End: 11-02-2024 Patient encounter procedure 11/02/2024 3:20 PM EDT Routine JODEE RODRIGUEZ [address] [place] [phone] Newton Carter, DO [address] [place] [address] JODEE RODRIGUEZ Start: 10-25-2024 End: 10-25-2025 CULTURE, GROUP B STREP WITH SUSCEPTIBLITY CULTURE, GROUP B STREP WITH SUSCEPTIBLITY Lab Routine 36 weeks gestation of ([facility]) Third trimester ([facility]) Expected: 10/25/2024, Expires: 10/25/2025 [facility] Work Phone: Comment on above: Expected: 10/25/2024 , Expires: 10/25/2025 Start: 10-25-2024 End: 10-25-2024 Patient encounter procedure 10/25/2024 1:00 PM EDT Routine [facility] [address] [place] [phone] Sarah Kern PA [address] [facility] [place], [place] [id number] [facility] Start: 10-17-2024 End: 10-17-2024 Patient encounter procedure [facility] Comment on above: Arrived Start: 10-10-2024 End: 10-10-2024 Patient encounter procedure [facility] Comment on above: Arrived Start: 09-26-2024 End: 09-26-2024 Patient encounter procedure [facility] Comment on above: Arrived Start: 09-14-2024 End: 09-14-2024 Patient encounter procedure 09/14/2024 3:30 PM EDT Routine [facility] [address] [place] [phone] Newton Carter DO [address] [place] [address] [facility] Start: 09-14-2024 End: 09-14-2024 Professional / ancillary services management 09/14/2024 3:00 PM EDT Ancillary Procedure [facility] [address] [facility] [place] [place] [phone] [facility] Start: 09-01-2024 End: 09-01-2024 Patient encounter procedure [facility] Comment on above: Third trimester preg ayanna ([facility]); 28 weeks gestation of ([facility]) Start: 09-01-2024 End: 01-01-2025 US for US OB follow up transabdominal approach Imaging Routine Nonintractable headache, unspecified chronicity pattern, unspecified headache type Expected: 09/01/2024, Expires: 01/01/2025 [facility] Work Phone: Comment on above: Expected: 09/01/2024 , Expires: 01/01/2025 Start: 08-11-2024 End: 08-11-2025 CBC panel - Blood by Automated count CBC Lab Routine Diabetes mellitus screening Expected: 08/11/2024 (Approximate), Expires: 08/11/2025 [facility] Work Phone: Comment on above: Expected: [...] for cervical length Expected: 07/20/2024, Expires: 10/20/2024 [facility] Work Phone: Comment on above: Expected: 07/20/2024 , Expires: 10/20/2024 Start: 07-20-2024 End: 07-20-2024 Patient encounter procedure 07/20/2024 9:30 AM EDT Routine [facility] [address] [place] [phone] Yris Castellanos, MARISSA [address] [place] [phone] Arrived [facility] Comment on above: Arrived Start: 07-11-2024 End: 07-11-2024 Patient encounter procedure 07/11/2024 11:00 AM EDT Office Visit [facility] [address] [place] [phone] Sarah Kern PA [address] [place], [place] [phone] [facility] Start: 07-04-2024 End: 07-04-2024 Patient encounter procedure 07/04/2024 11:10 AM EDT Routine [facility] [address] [place] [phone] Newton Carter DO [address] [place] [address] [facility] Start: 07-04-2024 End: 07-04-2024 Professional / ancillary services management 07/04/2024 10:00 AM EDT Ancillary Procedure [facility] [address] [place] [phone] [facility] Start: 06-20-2024 End: 06-20-2024 Patient encounter procedure 06/20/2024 2:20 PM EDT Office Visit [facility] [address] [place] [address] Alina Schmitz NP [address] [place] [address] [facility] Start: 06-06-2024 End: 06-06-2025 [...] gestational age Expected: 04/07/2024 (Approximate), Expires: 04/07/2025 [facility] Comment on above: Expected: 04/07/2024 (Approximate), Expires: 04/07/2025 Start: 04-07-2024 End: 04-07-2025 Blood type and Indirect antibody screen panel - Blood Type and screen Lab Routine Missed menses , unspecified gestational age Expected: 04/07/2024 (Approximate), Expires: 04/07/2025 [facility] Work Phone: Comment on above: Expected: 04/07/2024 (Approximate), Expires: 04/07/2025 Start: 04-07-2024 End: 04-07-2025 Drugs of abuse panel - Urine by Screen method Rapid drug screen, urine Lab Routine , unspecified gestational age Encounter for supervision of normal first in first trimester Expected: 04/07/2024 (Approximate), Expires: 04/07/2025 [facility] Comment on above: Expected: 04/07/2024 (Approximate), Expires: 04/07/2025 Start: 01-06-2024 End: 01-06-2024 Patient encounter procedure 01/06/2024 10:40 AM EDT Office Visit [facility] [address] [place] [address] Sarah Kern PA [address] [place] [address] Arrived [facility] Comment on above: Arrived Start: 11-13-2023 End: 11-13-2023 Patient encounter procedure 11/13/2023 9:30 AM EDT Procedure Visit [facility] Newton Carter, DO [address] [place] [address] [facility] Start: 11-08-2023 Influenza vaccination Influenza Vacc ine (#1) [facility] Start: 04-30-2023 [facility] Start: 04-24-2023 [facility] Start: 04-24-2023 End: 04-24-2023 [facility] Start: 04-20-2023 End: 04-20-2024 hCG, quantitative [facility] Work Phone: Comment on above: Ordered: 04/20/2023 Expected: 04/20/2023 (Approximate), Expires: 04/20/2024 Start: 04-13-2023 End: 04-13-2023 Patient encounter procedure 04/13/2023 9:45 AM EST Office Visit [facility] [address] [place] [address] Dawn Huitron MD [address] [place] [address] [facility] Start: 04-13-2023 End: 04-13-2023 Professional / ancillary services management 04/13/2023 9:30 AM EST Ancillary Procedure [facility] [address] [place] [address] [facility] Bacteria identified in Urine by Culture Urine culture Microbiology Routine Missed menses Ordered: 04/07/2024 [facility] Comment on above: Ordered: 04/07/2024 Bacteria identified in Urine by Culture Urine culture Microbiology Routine 34 weeks gestation of ([facility]) Urinary tract infection without hematuria, site unspecified Ordered: 10/10/2024 [facility] Work Phone: Comment on above: Ordered: 10/10/2024 Bacteria identified in Urine by Culture URINE CULTURE, ROUTINE Lab Routine 10/09/2024 4:42 PM EDT [facility] Basophils [#/volume] in Blood by Automated [facility] Basophils/100 leukocytes in Blood by Automated [facility] CBC W Auto Different ial panel - Blood CBC and differential Lab Routine Missed menses , unspecified gestational age Ordered: 04/07/2024 [facility] Comment on above: Ordered: 04/07/2024 CHLAMYDIA TRACHOMATI S (GENITO/STI) CHLAMYDIA TRACHOMATIS (GENITO/STI) Lab Routine Exposure to STD Ordered: 06/06/2024 [facility] Comment on above: Ordered: 06/06/2024 Cytology Cervical or vaginal smear or scraping study Pap Smear Pathology and Cytology Routine Well woman exam with routine gynecological exam Ordered: 06/06/2024 [facility] Comment on above: Ordered: 06/06/2024 Eosinophils/100 leukocytes in Blood by Automated [facility] Erythrocyte distribution width [Ratio] by Automated [facility] Erythrocytes [#/volu me] in Blood [facility] Hematocrit [Volume Fraction] of Blood [facility] Hemoglobin [Mass/volume] in Blood [facility] Hemoglobin A1c/Hemoglobin.total in Blood Hemoglobin A1c Lab Routine Missed menses , unspecified gestational age Ordered: 04/07/2024 [facility] Comment on above: Ordered: 04/07/2024 Hepatitis B virus surface Ag [Presence] in Serum or Plasma by Immunoassay Hepatitis B surface antigen Lab Routine Missed menses , unspecified gestational age Ordered: 04/07/2024 [facility] Comment on above: Ordered: 04/07/2024 Hepatitis C virus Ab [Presence] in Serum or Plasma by Immunoassay Hepatitis C antibody Lab Routine Missed menses , unspecified gestational age Ordered: 04/07/2024 [facility] Comment on above: Ordered: 04/07/2024 HIV-1/HIV-2 antigen/antibody combination immunoassay HIV-1 and HIV-2 antibodies Lab Routine Missed menses , unspecified gestational age Ordered: 04/07/2024 [facility] Comment on above: Ordered: 04/07/2024 Leukocytes [#/volume ] corrected for nucleated erythrocytes in Blood by Automated [facility] Leukocytes [#/volume ] in Blood [facility] Lymphocytes [#/volum e] in Blood by Automated count [facility] Lymphocytes/100 leukocytes in Blood by Automated count [facility] MCH [Entitic mass] b y Automated count [facility] MCHC [Mass/volume] b y Automated count [facility] MCV [Entitic volume] by Automated count [facility] Measurement of gluco se 1 hour after glucose challenge for glucose tolerance test GTT, 1 hour Lab Routine Insulin resistance complicating Ordered: 05/09/2024 [facility] Work Phone: Comment on above: Ordered: 05/09/2024 Monocytes [#/volume] in Blood by Automated [facility] Monocytes/100 leukocytes in Blood by Automated [facility] MYCOPLASMA/UREAPLASM A PANEL MYCOPLASMA/UREAPLASMA PANEL Lab Routine Vaginal discharge Ordered: 04/20/2023 [facility] Comment on above: Ordered: 04/20/2023 Neisseria gonorrhoea e DNA [Presence] in Unspecified specimen by RAMA with probe detection Neisseria gonorrhea DNA probe, direct Lab Routine Exposure to STD Ordered: 06/06/2024 [facility] Comment on above: Ordered: 06/06/2024 Neutrophils [#/volum e] in Blood by Automated count [facility] Neutrophils/100 leukocytes in Blood by Automated count [facility] Nucleated erythrocyt es [Presence] in Blood by Automated count [facility] Patient Education [facility] Work Phone: Patient referral [facility] Work Phone: Platelet mean volume [Entitic volume] in Blood by Automated count [facility] Platelets [#/volume] in Blood [facility] Reagin Ab [Presence] in Serum by RPR RPR Lab Routine Missed menses , unspecified gestational age Ordered: 04/07/2024 [facility] Comment on above: Ordered: 04/07/2024 Rubella antibody, IgG Rubella an tibody, IgG Lab Routine Missed menses , unspecified gestational age Ordered: 04/07/2024 [facility] Comment on above: Ordered: 04/07/2024 SURESWAB(R) ADVANCED VAGINITIS PLUS, TMA SURESWAB(R) ADVANCED VAGINITIS PLUS, TMA Pathology and Cytology Routine Vaginal discharge Ordered: 06/06/2024 [facility] Work Phone: Comment on above: Ordered: 06/06/2024 Payers Date Payer Category Payer Self-pay 2023 [facility] BCBS Memb er Subscriber Plan / Payer (Effective 2023-Present) Name: Sarah Arce Relation to Subscriber: Spouse Name: RAMSES ARCE Date of : 1996 (Home) Address: [address] [place] [address] Payer ID: Not on file Type: Not on file Address: [address] [place] [id number] 2023 Unknown BCBS BCBS xxxxxx [id number] 2023-Present [phone] [id number] [place] [address] [id number] 2023 Unknown [id number] 1998 Unknown [id number] 2.16.840.1.173030.3.579.2. 593 1998 Unknown [id number] 2.16.840.1.814478.3.579.2. 593 1998 Unknown [id number] 2.16840.1.060892.3.579.2. 593 1998 Unknown [id number] 2..840.1.997501.3.579.2. 593 1998 Unknown [id number] 2.16.840.1.187006.3.579.2. 593 1998 Unknown [id number] 2.16.840.1.727866.3.579.2. 593 1998 Unknown [id number] 2.16.840.1.898855.3.579.2. 593 1998 Unknown [id number] 2.16.840.1.580172.3.579.2. 593 1998 Unknown [id number] 2.16.840.1.729626.3.579.2. 593 1998 Unknown [id number] 2.16.840.1.852967.3.579.2. 125 1998 Unknown [id number] 2.16.840.1.175218.3.579.2. 1258 1998 Unknown [id number] 2.16.840.1.905640.3.579.2. 9 1998 Unknown [id number] 2.16.840.1.744167.3.579.2. 125 1998 Unknown [id number] 2.16.840.1.888835.3.579.2. 1258 1998 Unknown [id number] 2.16.840.1.898017.3.579.2. 1259 1998 Unknown [id number] 2.16.840.1.644665.3.579.2. 1258 1998 Unknown [id number] 2.16.840.1.407353.3.579.2. 125 1998 Unknown [id number] 2.16.840.1.853153.3.579.2. 1258 1998 Unknown [id number] 2.16.840.1.229188.3.579.2. 9 1998 Unknown [id number] 2.16.840.1.784145.3.579.2. 1258 1998 Unknown [id number] 2.16.840.1.168286.3.579.2. 1259 1998 Unknown [id number] 2.16.840.1.690520.3.579.2. 1259 1959 Unknown [id number] 1959 Unknown [id number] Unknown [id number] 2.16.840.1.215145.3.579.2. 531 Unknown [id number] 2.16.840.1.303208.3.579.2. 531 Unknown [id number] 2.16.840.1.190619.3.579.2. 531 Social History Date Type Detail Facility Start: 08-13-2022 End: 04-30-2023 Tobacco smoking status NHIS Never smoked tobacco [facility] Start: 08-13-2022 Tobacco use and exposure Smokeless tobacco non-user [facility] Start: 04-07-2023 End: 10-17-2024 Alcohol intake Ex-drinker (finding) [facility] Start: 08-13-2022 End: 04-13-2023 History of Social function [facility] Start: 08-13-2022 End: 04-13-2023 Tobacco use panel [facility] Start: 08-13-2022 Alcohol Comment none with [facility] Start: 1998 Sex Assigned At Not on file [facility] The thought of fitoi ng myself has occurred to me Never [facility] Start: 1998 Sex Assigned At Female F [facility] How often to you hav e [...] Facility 04-29-2023 Functional status Patient at Baseline [facility] Work Phone: Mental Status Date Assessment Result Facility 04-29-2023 Cognitive function Cognitive Sta tus Patient at Baseline [facility] Work Phone: Clinical Notes 04-20-2023 to 10-25-2024 PATRICK Cowart - 10/25/2024 1:00 PM Uzma Castellanos NP - 10/17/2024 9:30 AM PATRICK Mitchell - 10/10/2024 10:50 AM Uzma Castellanos NP - 09/26/2024 2:50 PM EDT Note Date & Type Note Facility 10-25-2024 History of Presen t illness Narrative Reason [...] Exam Constitutional: Appearance: Normal appearance. She is well-developed and normal weight. Genitourinary: Vulva normal. HENT: Head: Normocephalic. Cardiovascular: Rate and Rhythm: Normal rate and regular rhythm. Pulses: Normal pulses. Pulmonary: Effort: Pulmonary effort is normal. Breath sounds: Normal breath sounds. Abdominal: General: Bowel sounds are normal. There is no distension. Palpations: Abdomen is soft. Tenderness: There is no abdominal tenderness. There is no guarding or rebound. Musculoskeletal: General: No swelling. Normal range of motion. Right lower leg: No edema. Left lower leg: No edema. Neurological: General: No focal deficit present. Mental Status: She is alert and oriented to person, place, and time. Skin: General: Skin is warm and dry. Psychiatric: Mood and Affect: Mood normal. Behavior: Behavior normal. Thought Content: Thought content normal. Judgment: Judgment normal. Vitals and nursing note reviewed. Exam conducted with a painter present. Vitals: Estimated body mass index is 35.55 kg/m as calculated from the following: Height as of 24: 4' 11 . Weight as of this encounter: 176 lb. BP: 100/70 Patient's last menstrual period was 01/30/2024. ASSESSMENT & PLAN ICD-10-CM 1. 36 weeks gestation of ([facility]) Z3A.36 CULTURE, GROUP B STREP WITH SUSCEPTIBLITY POCT urinalysis dipstick manually resulted 2. Third trimester ([facility]) Z34.93 CULTURE, GROUP B STREP WITH SUSCEPTIBLITY POCT urinalysis dipstick manually resulted Patient is doing well but has complaints of being tired and having maternal discomfort due to . Patient verbalized frequent movement and was instructed to perform kick counts three times per day. labor precautions were given, LARC consent was signed/declined, and GBS was obtained. Orders Placed This Encounter Procedures CULTURE, GROUP B STREP WITH SUSCEPTIBLITY POCT urinalysis dipstick manually resulted Follow Up: Patient is to return to office in 1 week for routine OB appointment Documented by Smita Gomez LPN on behalf of: PATRICK Cowart documented in this encounter [facility] 10-17-2024 History of Presen t illness Narrative Reason for Appointment: Patient ID: Sarah Arce is a 24 y.o. female who presents for Routine Visit Patient presents today for 2 Week Post Op Follow Up appointment. MEDICATIONS Current Outpatient Medications Medication Instructions [...] nursing note reviewed. Exam conducted with a painter present. Vitals: Estimated body mass index is 35.35 kg/m as calculated from the following: Height as of 01/06/24: 4' 11 . Weight as of this encounter: 175 lb. BP: 120/72 Patient's last menstrual period was 01/30/2024. ASSESSMENT & PLAN ICD-10-CM 1. Third trimester ([facility]) Z34.93 CANCELED: POCT urinalysis dipstick manually resulted 2. 35 weeks gestation of ([facility]) Z3A.35 Return OB: Patient presents today for a routine obstetrics appointment. Patient is currently 35w0d . Patient states she is doing well but has complaints of being tired due to current . Patient has verbalizes frequent movement. labor precautions was discussed/given and patient was instructed to perform kick counts three times a day. No orders of the defined types were placed in this encounter. Follow Up: Patient is to return to office in 1 week for routine OB appointment. Documented by Yris Castellanos NP on behalf of: Newton Carter DO documented in this encounter [facility] 10-10-2024 History of Presen t illness Narrative Reason [...] reviewed. Vitals: Estimated body mass index is 34.74 kg/m as calculated from the following: Height as of 01/06/24: 4' 11 . Weight as of this encounter: 172 lb. BP: 114/68 Patient's last menstrual period was 01/30/2024. ASSESSMENT & PLAN ICD-10-CM 1. Third trimester ([facility]) Z34.93 POCT urinalysis dipstick manually resulted 2. 34 weeks gestation of ([facility]) Z3A.34 Urine culture 3. Urinary tract infection without hematuria, site unspecified N39.0 Urine culture Return OB: Patient presents today for a routine obstetrics appointment. Patient is currently 34w0d . Patient states she is doing well but has complaints of being tired due to current . Patient states she was at the ER/[facility]BC over the weekend. Pt was having cramping and was concerned since the cramping was coming every 10 minutes. Pt was seen and was seen home diagnosed w/an UT and Microbid was sent home w/patient. Pt states she is doing much better today. Sarah Kern has patient's urine sent out for cx's at today's visit. I Patient has verbalizes frequent movement. labor precautions was discussed/given and patient was instructed to perform kick counts three times a day. Orders Placed This Encounter Procedures Urine culture POCT urinalysis dipstick manually resulted Follow Up: Patient is to return to office in 2 week for routine OB appointment. Documented by Cayla Mayorga MA on behalf of: PATRICK Cowart documented in this encounter [facility] 09-26-2024 History of Presen t illness Narrative Reason [...] nursing note reviewed. Exam conducted with a painter present. Vitals: Estimated body mass index is 34.29 kg/m as calculated from the following: Height as of 01/06/24: 4' 11 . Weight as of this encounter: 169 lb 12 oz. BP: 108/74 Patient's last menstrual period was 01/30/2024. ASSESSMENT & PLAN ICD-10-CM 1. Third trimester ([facility]) Z34.93 POCT urinalysis dipstick manually resulted 2. 32 weeks gestation of ([facility]) Z3A.32 Return OB: Patient presents today for a routine obstetrics appointment. Patient is currently 32w0d . Patient states she is doing well but has complaints of being tired due to current . Patient has verbalizes frequent movement. labor precautions was discussed/given and patient was instructed to perform kick counts three times a day. Orders Placed This Encounter Procedures POCT urinalysis dipstick manually resulted Follow Up: Patient is to return to office in 2 week for routine OB appointment. Patient with some complaints of sciatica. We discussed stretching exercise and belly band with shoulder straps. If no improvement our office can refer to PT. Documented by Yris Castellanos NP on behalf of: Newton Carter DO documented in this encounter [facility] 09-14-2024 History of Presen t illness Narrative [...] nursing note reviewed. Exam conducted with a painter present. Vitals: Estimated body mass index is 33.93 kg/m as calculated from the following: Height as of 01/06/24: 4' 11 . Weight as of this encounter: 168 lb. BP: 110/74 Patient's last menstrual period was 01/30/2024. ASSESSMENT & PLAN ICD-10-CM 1. Third trimester ([facility]) Z34.93 POCT urinalysis dipstick manually resulted 2. 30 weeks gestation of ([facility]) Z3A.30 POCT urinalysis dipstick manually resulted Return [...] Newton Carter DO documented in this encounter [facility] 09-01-2024 History of Presen t illness Narrative [...] ASSESSMENT & PLAN ICD-10-CM 1. Third trimester ([facility]) Z34.93 POCT urinalysis dipstick manually resulted 2. 28 weeks gestation of ([facility]) Z3A.28 3. size inconsistent with dates ([facility]) O26.849 magnesium oxide (Mag-Ox) 400 MG tablet [...] of: PATRICK Cowart documented in this encounter [facility] 08-11-2024 History of Presen t illness [...] Newton Carter DO documented in this encounter [facility] 07-20-2024 History of Presen [...] nursing note reviewed. Exam conducted with a painter present. Vitals: Estimated body mass index is 32.52 kg/m as calculated from the following: Height as of 24: 4' 11 . Weight as of this [...] Yris Castellanos NP documented in this encounter [facility] 06-06-2024 History of Presen [...] nursing note reviewed. Exam conducted with a painter present. Vitals: Estimated body mass index is [...] by Rachael Heard LPN on behalf of: PARTICK Cowart documented in this encounter [facility] 05-09-2024 History of Presen [...] nursing note reviewed. Exam conducted with a painter present. Vitals: Estimated body mass index is 31.99 kg/m as calculated from the following: Height as of 24: 4' 11 . Weight as of this [...] or undercooked meat, and stay away from [facility]. Patient has been consulted regarding any further do's and don'ts of . Patient voiced understanding and all questions and concerns were answered. Patient is currently taking Metformin and will have an Early 1 hour Gtt drawn at 16 weeks gestation. Patient has not yet obtained intake labs and was given printouts of all labs. Patient also given [facility] order to have drawn with early 1hour gtt at 16 weeks. Orders Placed This Encounter Procedures GTT, 1 hour Alpha fetoprotein, maternal POCT urinalysis dipstick manually resulted Follow Up: Patient is to return in 4 weeks for routine OB appointment. Documented by Smita Gomez LPN on behalf of: Newton Carter DO documented in this encounter [facility] 04-07-2024 History of Presen t illness [...] or undercooked meat, and stay away from [facility]. Patient has also been advised to [...] Cayla Mayorga MA documented in this encounter [facility] 01-06-2024 History of Presen [...] after having a D&C performed at [facility] with Dr. Carter. Pathology results was [...] of: PATRICK Cowart documented in this encounter [facility] 04-30-2023 History and physical note Note Date/Time April 29, 2023 10:09pm [facility] [address] [place] [address] [employer] History & Physical Signed Patient: Sarah Arce MR#: [id number] : 2000 Acct:[id number] Age/Sex: 23 / F Adm Date: 4 Loc: Room: [address] [place] [address] Type: REG CLI Attending Dr: Dawn Huitron MD Copies to: NO FAMILY PHYSICIAN Dawn Huitron MD-[facility]~ Date of Service: 04/29/2023 GENERATING STATION MECHANIC - HPI History of Present Illness Chief [...] noted below or in HPI [facility] Medical History (Updated 04/29/23 @ [...] 1,000 mls @ 125 mls/hr IV .Q8H [facility] Stop: 04/28/24 16:59 Last Admin: 04/29/23 17:50 Dose: 125 mls/hr Cefazolin Sodium (Ancef) 2 gm in 50 mls @ 100 mls/hr IV Q8H [facility] Last Admin: 04/29/23 17:51 Dose: 100 mls/hr Oxytocin 40 unit/ Lactated (Ringer's) 504 mls @ 150 mls/hr IV .Q3H22M ONE; Protocol Stop: 04/30/23 02:21 Misoprostol (Misoprostol 200 Mcg Tablet) 800 mcg VAGINAL Q4H [facility] Stop: 04/30/23 02:31 GENERATING STATION MECHANIC - Exam Physical Exam Vital signs: Temp [...] Routine Psychiatric Exam Psychiatric: Present normal affect GENERATING STATION MECHANIC - Results Laboratory Results - Last 48 hrs. 04/29/23 20:27: Blood Type Recheck A Positive 04/29/23 17:45: HCG, Quant 3230.00 04/29/23 17:31: Corrected WBC 13.6 H, Uncorrected WBC Count 13.6 H, RBC 4.93, Hgb 13.3, Hct 39.8, MCV 80.8, MCH 27.0, MCHC 33.5, RDW 13.9, Plt Count 369, MPV 7.0, Neut % (Auto) 77.6, Lymph % (Auto) 17.0, [place] % (Auto) 4.0, Eos % (Auto) 1.1, Baso % (Auto) 0.3, Nucleat RBC Rel Count 0.2, Neut # (Auto) 10.6 H, Lymph #(Auto) 2.3, [place] # (Auto) 0.5, Eos # (Auto) 0.2, Baso # (Auto) 0.0, Blood Type APositive, Antibody Screen Negative Diagnostic Imaging Comments: 2.1 cm uterine complex with vascularization, essentially unchanged from yesterday GENERATING STATION MECHANIC - A/P (1) Vaginal bleeding: Plan Failed Cytotec evacuation of uterine tissue Suction D&C D&C Documented By: CHUCK Astorga 04/29/23 22 06 Signed By: <Electronically signed by CHUCK Huitron> 04/30/23 0702 [facility] Work Phone: 1(275) 716-334102-12-2024 History of Present illness Narrative* Dawn Huitron [...] this encounter [facility] note[facility] assessment information available[facility] Work Phone: Evaluation note* Diagnosis Onset Date Resolution Status Vaginal bleeding acute [facility] Work Phone: Evaluation note* Diagnosis [...] of ([facility]) documented [facility] this [facility]* Diagnosis Third trimester ([facility]) state, incidental 32 weeks gestation of ([facility]) documented [facility] this [facility]* Diagnosis Third trimester ([facility]) state, incidental 34 weeks gestation of ([facility]) Urinary tract infection without hematuria, site unspecified documented in this encounter [facility]* Diagnosis Third trimester ([facility]) state, incidental 35 weeks gestation of ([facility]) documented [facility] this [facility]* Diagnosis 36 weeks gestation of ([facility]) Third trimester ([facility]) state, incidental [facility] Discharge instructions Additional Instructions SPECIAL INSTRUCTIONS Call for heavy bleeding FOLLOW UP Antony [facility] Work Phone: Summary Purpose Family History [...] and content) DATE CREATED AUTHOR 10/08/2020 [facility] DATE CREATED AUTHOR AUTHOR'S ORGANIZ ATION 11/23/2023 [facility] DATE CREATED AUTHOR AUTHOR'S ORGANIZ ATION 10/18/2024 [facility] EPIC Reason for Visit (unrecogniz ed section and content) Reason Comments Care Reason Comments Post-op Visit Reason Comments Amenorrhea Reason Comments Routine Visit Care Teams (unrecognized sec tion and content) Senior Report Developer Relationship Specialty Start Date End Date Unallocated, Jodee Provider [address] [place] [address] PCP - General Family Medicine 04/13/23 Team [...] November 13, 2023 End: November 13, 2023 Senior Report Developer Relationship Specialty Start Date End Date Unallocated, Jodee Silverio MD [address] [place] [address] PCP - General Family Medicine 04/13/23 Senior Report Developer Relationship Specialty Start Date End Date Unallocated, Jodee Silverio MD [address] [place], [place] [address] [address] PCP - General Family Medicine 04/13/23 Senior Report Developer Relationship Specialty Start Date End Date Unallocated, Jodee Silverio MD [facility] [place] [address] PCP - General Family Medicine 04/13/23 Senior Report Developer Relationship Specialty Start Date End Date Unallocated, Jodee Silverio MD [facility] [place] [address] PCP - General Family Medicine 04/13/23 Senior Report Developer Relationship Specialty Start Date End Date Unallocated, Jodee Silverio MD [address] [place] [address] PCP - General Family Medicine 04/13/23 Senior Report Developer Relationship Specialty Start Date End Date Angel Seay MD [address] [place] [address] PCP - General Family Medicine 01/26/24 Alina Schmitz NP [address] [place] [address] Nurse Practitioner Family Medicine 01/26/24 Senior Report Developer Relationship Specialty Start Date End Date Angel Seay MD [address] [place] [address] PCP - General Family Medicine 01/26/24 Alina Schmitz NP [address] [place] [address] Nurse Practitioner Family Medicine 01/26/24 Senior Report Developer Relationship Specialty Start Date End Date Angel Seay MD [address] [place] [address] PCP - General Family Medicine 01/26/24 Alina Schmitz NP [address] [place] [address] Nurse Practitioner Family Medicine 01/26/24 Senior Report Developer Relationship Specialty Start Date End Date Angel Seay MD [address] [place] [address] PCP - General Family Medicine 01/26/24 Alina Schmitz NP [address] [place] [address] Nurse Practitioner Family Medicine 01/26/24 Senior Report Developer Relationship Specialty Start Date End Date Angel Seay MD [address] [place] [address] PCP - General Family Medicine 01/26/24 Alina Schmitz NP [address] [place] [address] Nurse Practitioner Family Medicine 01/26/24 Senior Report Developer Relationship Specialty Start Date End Date Angel Seay MD [address] [place] [phone] PCP - General Family Medicine 01/26/24 Alina Schmitz NP [address] [place] [address] Nurse Practitioner Family Medicine 01/26/24 Senior Report Developer Relationship Specialty Start Date End Date Angel Seay MD [address] [place] [address] PCP - General Family Medicine 01/26/24 Alina Schmitz NP [address] [place] [address] Nurse Practitioner Family Medicine 01/26/24 Senior Report Developer Relationship Specialty Start Date End Date Angel Seay MD [address] [place] [address] PCP - General Family Medicine 01/26/24 Alina Schmitz NP [address] [place] [address] Nurse Practitioner Family Medicine 01/26/24 Senior Report Developer Relationship Specialty Start Date End Date Angel Seay MD [address] [place] [address] PCP - General Family Medicine 01/26/24 Alina Schmitz NP [address] [place] [address] Nurse Practitioner Family Medicine 01/26/24 Senior Report Developer Relationship Specialty Start Date End Date Angel Seay MD [address] [place] [address] PCP - General Family Medicine 01/26/24 Alina Schmitz NP [address] [place] [address] Nurse Practitioner Family Medicine 01/26/24 Senior Report Developer Relationship Specialty Start Date End Date Angel Seay MD [address] [place] [address] PCP - General Family Medicine 01/26/24 Alina Schmitz NP [address] [place] [address] Nurse Practitioner Family Medicine 01/26/24 Senior Report Developer Relationship Specialty Start Date End Date Angel Seay MD [address] [place] [address] PCP - General Family Medicine 01/26/24 Alina Schmitz NP [address] [place] [address] Nurse Practitioner Family Medicine 01/26/24 Senior Report Developer Relationship Specialty Start Date End Date Angel Seay MD [address] [place] [address] PCP - General Family Medicine 01/26/24 Alina Schmitz NP [address] [place] [address] Nurse Practitioner Family Medicine 01/26/24 Senior Report Developer Relationship Specialty Start Date End Date Angel Seay MD [address] [place] [address] PCP - General Family Medicine 01/26/24 Alina Schmitz NP [address] [place] [address] Nurse Practitioner Family Medicine 01/26/24 Goals (unrecognized [...] BE BASED ON THE PRIMARY CLINICAL RECORDS. [facility] [employer] provides no warranty or guarantee of the accuracy or completeness of information in this document.
== END 2024-10-25 19:02 | disposition home or self-care (01) ==
LOC: LAB 19:01
PROVIDERS: PCP Nurse Practitioner; Visit Provider Physician Assistant
DX: Z34.93 Encounter for supervision of normal pregnancy, unspecified, third trimester (principal); Z3A.36 36 weeks gestation of pregnancy
CPT/HCPCS: 87081

== ENCOUNTER 2024-11-13 08:14 | Inpatient (IN) | payer BC, SELFPAY ==
[2024-11-13] VITALS (19 sets, daily range): BP systolic 107–144; BP diastolic 54–85; PULSE 65–114; TEMP 36.1–37
--- OUTSIDE RECORDS SUMMARY | 2024-11-13 08:20 | XMS_ITS | CCD ---
Author Organization [facility] CliniSydc Care Team Providers Care Senior Environmental Technician Name Role Phone AICHHOLZ, ROOTER OPERATOR ALINA Primary Care Unavailable KOFI CURRIE Consulting Unavailable KOFI CURRIE Admitting Unavailable KOFI CURRIE Attending Unavailable AICHHOLZ, ROOTER OPERATOR ALINA Primary Care Unavailable QUIQUE, DR KECIA Devi Consulting Unavailable KOFI CURRIE Attending Unavailable KOFI CURRIE Admitting Unavailable KOFI CURRIE Consulting Unavailable KOFI CURRIE Attending Unavailable [facility] DR MADRID Referring Unavailable AICHHOLZ, ROOTER OPERATOR ALINA Primary Care Unavailable KOFI CURRIE Consulting Unavailable KOFI CURRIE Admitting Unavailable KARASIK, DR STRONG Attending Unavailable AICHHOLZ, ROOTER OPERATOR ALINA Primary Care Unavailable KARASIK, DR STRONG Consulting Unavailable KARASIK, DR STRONG Admitting Unavailable KARASIK, DR STRONG Procedure Practitioner Unava ilable KOFI CURRIE Consulting Unavailable KOFI CURRIE Attending Unavailable AICHHOLZ, ROOTER OPERATOR ALINA Primary Care Unavailable KOFI CURRIE Admitting Unavailable AICHHOLZ, ROOTER OPERATOR ALINA Primary Care Unavailable KARASIK, DR STRONG Consulting Unavailable KARASIK, DR STRONG Admitting Unavailable KARASIK, DR STRONG Attending Unavailable KOFI CURRIE Consulting Unavailable KOFI CURRIE Attending Unavailable AICHHOLZ, ROOTER OPERATOR ALINA Primary Care Unavailable KOFI CURRIE Admitting Unavailable AICHHOLZ, ROOTER OPERATOR ALINA Primary Care Unavailable KOFI CURRIE Consulting Unavailable KOFI CURRIE Admitting Unavailable KOFI CURRIE Attending Unavailable AICHHOLZ, ROOTER OPERATOR ALINA Admitting Unavailable AICHHOLZ, ROOTER OPERATOR ALINA Attending Unavailable AICHHOLZ, ROOTER OPERATOR ALINA Consulting Unavailable AICHHOLZ, ROOTER OPERATOR ALINA Primary Care Unavailable Unavailable Primary Care Provider Unavailabl e Unallocated, Noms Provider Primary Care Provider MD Dawn Huitron Attending Provider [phone] NO FAMILY, PHYSICIAN Primary Care Provider Unava ilable NO FAMILY, PHYSICIAN Primary Care Provider Unava ilable DO Newton Carter Attending Provider [phone] NO FAMILY, PHYSICIAN Primary Care Unavailable Dawn Huitron P Admitting Unavailable Dawn Huitron Attending Unavailable NO FAMILY, PHYSICIAN Primary Care Unavailable Huitron, Philipola P Admitting Unavailable Dawn Huitron P Attending Unavailable Raul, Newton Admitting Unavailable Raul, Newton Attending Unavailable NO FAMILY, PHYSICIAN Primary Care Unavailable Unallocated MD, Noms Provider Primary Care Provi kristopher Unallocated MD, Noms Provider Primary Care Provi kristopher Dawood MASSEY, Angel Primary Care Provider Nadir WOODEN BOAT BUILDER, Alina Unavailable Nadir WOODEN BOAT BUILDER, Alina Unavailable Dawood MASSEY, Angel Primary Care Provider Nadir WOODEN BOAT BUILDER, Alian Unavailable RAUL, NEWTON Attending Unavailable ISAMAR, SARAH Attending Unavailable YRIS CASTELLANOS Attending Unavailable RAUL, NEWTON Attending Unavailable ISAMAR, SARAH Attending Unavailable ISAMAR, SARAH Referring Unavailable RAUL, NEWTON Attending Unavailable RAUL, NEWTON Attending Unavailable ISAMAR, SARAH Attending Unavailable RAUL, NEWTON Attending Unavailable ISAMAR, SARAH Attending Unavailable RAUL, NEWTON Attending Unavailable ISAMAR, SARAH Attending Unavailable ISAMAR, SARAH Attending Unavailable Medications [...] 1:00am magnesium oxide 400 mg oral tablet (20 sources) Start: 09-01-2024 End: 03-30-2025 take 1 tablet by mouth once daily magnesium oxide (Mag-Ox) 400 MG tablet Indications: size inconsistent with dates ([facility]) , Nonintractable headache, unspecified chronicity pattern, unspecified [...] supervision of normal first in first trimester ([facility]) Chew 1 tablet Daily 30 tablet 11 04/07/2024 Active Start: 04-07-2024 MV & Min w/FA-DHA ( Gummies) 0.18-25 MG chewable tablet Indications: Encounter for supervision of normal first in first trimester Chew 1 tablet Daily 30 tablet 11 04/07/2024 Active Completed/Discontinued Medications Medication Drug Class(es) Dates Sig (Normalized) Sig (Original) 27- MG tablet (3 sources) End: 04-20-2023 take [...] [36 weeks gestation of ] 10-25-2024 Episodic Residual codes; unclassified (2 sources) Gestation period, 37 weeks; Translations: [37 weeks gestation of ] 11-02-2024 Episodic Residual codes; unclassified (2 sources) Gestation period, 38 weeks; Translations: [38 weeks gestation of ] 11-09-2024 Episodic Unclassified (1 source) CONTACT W/AND (SUSP) [...] Range Facility Urinalysis macro (dipstick) panel (U)on 11-09-2024 Bilirubin, UA Negative Negative - 4(70) +++ mg/dL [facility] Blood, UA Negative Negative - 50 Sherman/mcL [facility] Clarity, UA Clear [facility] Color, UA Yellow [facility] Glucose, UA Negative Negative - 1999(110) ++++ mg/dL [facility] Interpretation and review of laboratory results Abnormal [facility] Ketones, UA Negative Negative - 160(16) ++++ mg/dL [facility] Leukocytes, UA Positive Negative - 500+++ Jackie/mcL [facility] Nitrite, UA Negative Negative - Positive [facility] pH, UA 6 5 - 9 [facility] Protein, UA Negative Negative - 1999(20) ++++ mg/dL [facility] Spec Grav, UA 1.015 1 - 1.03 [facility] Urobilinogen, UA 1.0 0.2 - 12 mg/dL [facility] Urinalysis macro (dipstick) panel (U)on 11-02-2024 Bilirubin, UA Negative Negative - 4(70) +++ mg/dL [facility] Blood, UA Negative Negative - 50 Sherman/mcL [facility] Clarity, UA Clear [facility] Color, UA Yellow [facility] Glucose, UA Negative Negative - 2000(110) ++++ mg/dL [facility] Interpretation and review of laboratory results Abnormal [facility] Ketones, UA Negative Negative - 160(16) ++++ mg/dL [facility] Leukocytes, UA Positive Negative - 500+++ Jackie/mcL [facility] Comment on above: 2+ Nitrite, UA Negative Negative - Positive [facility] pH, UA 6 5 - 9 [facility] Protein, UA Positive Negative - 2000(20) ++++ mg/dL [facility] Comment on above: Trace Spec Grav, UA 1.02 1 - 1.03 [facility] Urobilinogen, UA 0.2 0.2 - 12 mg/dL [facility] GP B CULTURE+RFLXon STREP GP B CULTURE+RFLX Strep Gp B Culture+Rflx [facility] Healthcare STREP GP B CULTURE+RFLX Negative [facility] STREP GP B CULTURE+RFLX Centers for Disease Control and Prevention (CDC) and [facility] STREP GP B CULTURE+RFLX [employer] [facility] Healthcare STREP GP B CULTURE+RFLX (ACOG) guidelines for prevention of group B [facility] Healthcare STREP GP B CULTURE+RFLX streptococcal (GBS) disease specify co-collection of [facility] Healthcare STREP GP B CULTURE+RFLX a vaginal and rectal swab specimen to maximize [facility] STREP GP B CULTURE+RFLX sensitivity of GBS detection. Per the CDC and ACOG, [facility] STREP GP B CULTURE+RFLX swabbing both the lower vagina and rectum [facility] STREP GP B CULTURE+RFLX substantially increases the yield of detection [facility] STREP GP B CULTURE+RFLX compared with sampling the vagina alone. [facility] STREP GP B CULTURE+RFLX Penicillin G, ampicillin, or cefazolin are indicated [facility] STREP GP B CULTURE+RFLX for intrapartum prophylaxis of GBS [facility] STREP GP B CULTURE+RFLX colonization. Reflex susceptibility testing should be [facility] STREP GP B CULTURE+RFLX performed prior to use of clindamycin only on GBS [facility] STREP GP B CULTURE+RFLX isolates from penicillin-allergic women who are [facility] STREP GP B CULTURE+RFLX considered a high risk for anaphylaxis. Treatment with [facility] STREP GP B CULTURE+RFLX vancomycin without additional testing is warranted if [facility] STREP GP B CULTURE+RFLX resistance to clindamycin is noted. [facility] STREP GP B CULTURE+RFLX Performed at: [facility] STREP GP B CULTURE+RFLX [address] [place], [place] [id number] [facility] STREP GP B CULTURE+RFLX Skein Washer: Chago Ovalle PhD, Phone: [phone] [facility] Urinalysis macro (dipstick) panel (U)on 10-25-2024 Bilirubin, UA Negative Negative - 4(70) +++ mg/dL [facility] Blood, UA Negative Negative - 50 Sherman/mcL [facility] Clarity, UA Clear [facility] Color, UA Yellow [facility] Glucose, UA Negative Negative - 1999(110) ++++ mg/dL [facility] Interpretation and review of laboratory results Abnormal [facility] Ketones, UA Negative Negative - 160(16) ++++ mg/dL [facility] Leukocytes, UA 1+ Negative - 500+++ Jackie/mcL [facility] Nitrite, UA Negative Negative - Positive [facility] pH, UA 6.5 5 - 9 [facility] Protein, UA Negative Negative - 1999(20) ++++ mg/dL [facility] Spec Grav, UA 1.005 1 - 1.03 [facility] Urobilinogen, UA 2.0 0.2 - 12 mg/dL [facility] Urinalysis macro (dipstick) panel (U)on 10-10-2024 Bilirubin, UA Negative Negative - 4(70) +++ mg/dL [facility] Blood, UA Negative Negative - 50 Sherman/mcL [facility] Clarity, UA Clear [facility] Color, UA Yellow [facility] Glucose, UA Negative Negative - 1999(110) ++++ mg/dL [facility] Interpretation and review of laboratory results Abnormal [facility] Ketones, UA Negative Negative - 160(16) ++++ mg/dL [facility] Leukocytes, UA 3+ Negative - 500+++ Jackie/mcL [facility] Healthcare Comment on above: 500 Nitrite, UA Negative Negative - Positive [facility] pH, UA 6 5 - 9 [facility] Protein, UA Negative Negative - 1999(20) ++++ mg/dL [facility] Spec Grav, UA 1.025 1 - 1.03 [facility] Urobilinogen, UA 1.0 0.2 - 12 mg/dL [facility] Urinalysis macro (dipstick) panel (U)on 07-21-2025 Bilirubin, UA Negative Negative - 4(70) +++ mg/dL [facility] Blood, UA Negative Negative - 50 Sherman/mcL [facility] Clarity, UA Clear [facility] Color, UA Yellow [facility] Glucose, UA Negative Negative - 2000(110) ++++ mg/dL [facility] Interpretation and review of laboratory results Abnormal [facility] Ketones, UA Negative Negative - 160(16) ++++ mg/dL [facility] Leukocytes, UA Negative Negative - 500+++ Jackie/mcL [facility] Nitrite, UA Negative Negative - Positive [facility] pH, UA 6.5 5 - 9 [facility] Protein, UA Trace Negative - 2000(20) ++++ mg/dL [facility] Spec Grav, UA 1.015 1 - 1.03 [facility] Urobilinogen, UA 0.2 0.2 - 12 mg/dL [facility] US OB FOLLOW UP TRANSABDOMIN AL APPROACHon [...] UA Negative Negative - 4(70) +++ mg/dL [facility] Blood, UA Negative Negative - 50 Sherman/mcL [facility] Clarity, UA Clear [facility] Color, UA Yellow [facility] Glucose, UA Negative Negative - 1999(110) ++++ mg/dL [facility] Interpretation and review of laboratory results Normal [facility] Ketones, UA Positive Negative - 160(16) ++++ mg/dL [facility] Leukocytes, UA Negative Negative - 500+++ Jackie/mcL [facility] Nitrite, UA Negative Negative - Positive [facility] pH, UA 6 5 - 9 [facility] Protein, UA Positive Negative - 1999(20) ++++ mg/dL [facility] Spec Grav, UA 1.02 1 - 1.03 [facility] Urobilinogen, UA 1.0 0.2 - 12 mg/dL [facility] GLUCOSE TOLERANCE 3 HOURon 0 09-03-2024 GLUCOSE TOLERANCE 3 HOUR High mg/dL [facility] Comment on above: GLU FAST 96H (<95) C ol: 09/03/24 0723 GLU 1HR 160 (<180) Col: 09/03/24 0845 GLU 2HR 109 (<155) Col: 09/03/24 0943 GLU 3HR 113 (<140) Col: 09/03/24 1045 Interpretation and review of laboratory results Abnormal [facility] Urinalysis macro (dipstick) panel (U)on 09-01-2024 Bilirubin, UA Negative Negative - 4(70) +++ mg/dL [facility] Blood, UA Negative Negative - 50 Sherman/mcL [facility] Clarity, UA Clear [facility] Color, UA Yellow [facility] Glucose, UA Negative Negative - 1999(110) ++++ mg/dL [facility] Interpretation and review of laboratory results Abnormal [facility] Ketones, UA Negative Negative - 160(16) ++++ mg/dL [facility] Leukocytes, UA Positive Negative - 500+++ Jackie/mcL [facility] Comment on above: small Nitrite, UA Negative Negative - Positive [facility] pH, UA 7 5 - 9 [facility] Protein, UA Negative Negative - 1999(20) ++++ mg/dL [facility] Spec Grav, UA 1.02 1 - 1.03 [facility] Urobilinogen, UA 0.2 0.2 - 12 mg/dL [facility] GLUCOSE 1 HOURon 08-25-2024 Glucose [Mass/Vol] 139 mg/dL High NINF - 13 0 mg/dL [facility] Interpretation and review of laboratory results Abnormal [facility] Urinalysis macro (dipstick) panel (U)on 08-11-2024 Bilirubin, UA Negative Negative - 4(70) +++ mg/dL [facility] Blood, UA Negative Negative - 50 Sherman/mcL [facility] Clarity, UA Clear [facility] Color, UA Yellow [facility] Glucose, UA Negative Negative - 1999(110) ++++ mg/dL [facility] Interpretation and review of laboratory results Normal [facility] Ketones, UA Negative Negative - 160(16) ++++ mg/dL [facility] Leukocytes, UA Positive Negative - 500+++ Jackie/mcL [facility] Comment on above: SMALL Nitrite, UA Negative Negative - Positive [facility] pH, UA 7 5 - 9 [facility] Protein, UA Negative Negative - 1999(20) ++++ mg/dL [facility] Spec Grav, UA 1.02 1 - 1.03 [facility] Urobilinogen, UA 0.2 0.2 - 12 mg/dL [facility] US OB CERVICAL LENGTHon 07-08 [place] [address] Ultrasound Report Signed Patient: SARAH ARCE MR#: [id number] : 2000 Acct:[id number] Age/Sex: 24 / F ADM Date: 08/02/24 Loc: US Attending Dr: Yris Castellanos Ordering Physician: Yris Castellanos Date of Service: 08/02/24 Procedure(s): US OB cervical length Accession Number(s): [id number] cc: Alina Schmitz WOODEN BOAT BUILDER; Yris Castellanos [address] [address] Patient Name: SARAH ARCE MRN: [facility]:[id number] date: 2000 Sex: F Assigned Patient Location: US Current Patient Location: US Accession/Order Number: [id number] Exam Date: 08/02/2024 18:52 Report Date: 08/02/2024 [...] Daniels M.D. 08/02/2024 6:58 PM Dictation Location: [place] [address] Electronically authenticated by: [id number] Y Date: 08/02/2024 18:58 Dictated By: Roel Daniels M.D. Signed By: 08/02/24 190 DD/ 57 TD/TT: Physical Testing Supervisor: [facility] Radiology, Radiologist, MD - 08/02/2024 [place] [address] Ultrasound Report Signed Patient: SARAH ARCE MR#: [id number] : 2000 Acct:[id number] Age/Sex: 24 / F ADM Date: 08/02/24 Loc: US Attending Dr: Yris Castellanos Ordering Physician: Yris Castellanos Date of Service: 08/02/24 Procedure(s): US OB cervical length Accession Number(s): [id number] cc: Alina Schmitz WOODEN BOAT BUILDER; Yris Castellanos [place] [address] Patient Name: SARAH ARCE MRN: [id number] date: 2000 Sex: F Assigned Patient Location: US Current Patient Location: US Accession/Order Number: [id number] Exam Date: 08/02/2024 18:52 Report Date: 08/02/2024 [...] Daniels M.D. 08/02/2024 6:58 PM Dictation Location: [place] [address] Electronically authenticated by: [id number] Y Date: 08/02/2024 18:58 Dictated By: Roel Daniels M.D. Signed By: 08/02/241899 DD/ 57 TD/TT: Physical Testing Supervisor: [facility] Radiology Study observation (narrative) [facility] US OB CERVICAL LENGTHOrdered By: Radiologist Radiology on 08-02-2024 [facility] Work Phone: Urinalysis macro (dipstick) panel (U)on 07-20-2024 Bilirubin, UA Negative Negative - 4(70) +++ mg/dL [facility] Blood, UA Negative Negative - 50 Sherman/mcL [facility] Clarity, UA Clear [facility] Color, UA Yellow [facility] Glucose, UA Negative Negative - 1999(110) ++++ mg/dL [facility] Interpretation and review of laboratory results Normal [facility] Ketones, UA Negative Negative - 160(16) ++++ mg/dL [facility] Leukocytes, UA Positive Negative - 500+++ Jackie/mcL [facility] Comment on above: small Nitrite, UA Negative Negative - Positive [facility] pH, UA 7 5 - 9 [facility] Protein, UA Positive Negative - 1999(20) ++++ mg/dL [facility] Comment on above: 30 Spec Grav, UA 1.025 1 - 1.03 [facility] Urobilinogen, UA 0.2 0.2 - 12 mg/dL [facility] No Panel InformationOrdered By: Radiologist Radiology on 07-06-2024 [facility] Work Phone: No Panel Informationon 07-06 Radiology Study observation (narrative) [facility] US OB ANATOMYon 07-06-[address] [address] Ultrasound Report Signed Patient: SARAH ARCE MR#: [id number] : 2000 Acct:[id number] Age/Sex: 24 / F ADM Date: 07/05/24 Loc: US Attending Dr: Sarah Kern Ordering Physician: Sarah Kern Date of Service: 07/05/24 Procedure(s): US OB anatomy Accession Number(s): [id number] cc: Alina Schmitz WOODEN BOAT BUILDER; Sarah Kern [place] [id number] Patient Name: SARAH ARCE MRN: [id number] date: 2000 Sex: F Assigned Patient Location: US Current Patient Location: Accession/Order Number: [id number] Exam Date: 07/06/2024 08:58 Report Date: 07/06/2024 [...] Jr., D.O. 07/06/2024 9:06 AM Dictation Location: [place] [address] Electronically authenticated by: [id number] Y Date: 07/06/2024 09:06 Dictated By: Pedro Luis Jack M.D. Signed By: 07/06/24908 DD/ 5 TD/TT: Physical Testing Supervisor: [facility] Radiology, Radiologist, - 07/06/2024 [place] [address] Ultrasound Report Signed Patient: SARAH ARCE MR#: [id number] : 2000 Acct:[id number] Age/Sex: 24 / F ADM Date: 07/05/24 Loc: US Attending Dr: Sarah Kern Ordering Physician: Sarah Kern Date of Service: 07/05/24 Procedure(s): US OB anatomy Accession Number(s): [id number] cc: Alina Schmitz NP; Sarah Kern [place] [id number] Patient Name: SARAH ARCE MRN: [facility]:[id number] date: 2000 Sex: F Assigned Patient Location: US Current Patient Location: Accession/Order Number: [id number] Exam Date: 07/06/2024 08:58 Report Date: 07/06/2024 [...] Jr., D.O. 07/06/2024 9:06 AM Dictation Location: [facility] Electronically authenticated by: [id number] Y Date: 07/06/2024 09:06 Dictated By: Pedro Luis Jack M.D. Signed By: 07/06/24908 DD/ 5 TD/TT: Physical Testing Supervisor: [facility] US OB CERVICAL LENGTHon 06-[address] [address] Ultrasound Report Signed Patient: SARAH ARCE MR#: [id number] : 2000 Acct:[id number] Age/Sex: 24 / F ADM Date: 07/05/24 Loc: US Attending Dr: Sarah Kern Ordering Physician: Sarah Kern Date of Service: 07/05/24 Procedure(s): US OB cervical length Accession Number(s): [id number] cc: Alina Schmitz NP; Sarah Kern [place] [phone] Patient Name: SARAH ARCE MRN: [facility]:[id number] date: 2000 Sex: F Assigned Patient Location: Current Patient Location: Accession/Order Number: [id number] Exam Date: 07/06/2024 08:58 Report Date: 07/06/2024 [...] Jr., D.O. 07/06/2024 9:06 AM Dictation Location: [place] [address] Electronically authenticated by: [id number] Y Date: 07/06/2024 09:06 Dictated By: Pedro Luis Jack M.D. Signed By: 07/06/24908 DD/ 5 TD/TT: Physical Testing Supervisor: [facility] Radiology, Radiologist, - 07/06/[address] [address] Ultrasound Report Signed Patient: SARAH ARCE MR#: [id number] : 2000 Acct:[id number] Age/Sex: 24 / F ADM Date: 07/05/24 Loc: Attending Dr: Sarah Kern Ordering Physician: Sarah Kern Date of Service: 07/05/24 Procedure(s): US OB cervical length Accession Number(s): [id number] cc: Alina Schmitz NP; Sarah Kern [place] [phone] Patient Name: SARAH ARCE MRN: [facility]:[id number] date: 2000 Sex: F Assigned Patient Location: Current Patient Location: Accession/Order Number: [id number] Exam Date: 07/06/2024 08:58 Report Date: 07/06/2024 [...] cm evidence of funneling. Impression dictated by: Perdo Luis Jack Jr., D.O. 07/06/2024 9:06 AM Dictation Location: [facility] Electronically authenticated by: [id number] Y Date: 07/06/2024 09:06 Dictated By: Pedro Luis Jack M.D. Signed By: 07/06/24908 DD/ 5 TD/TT: Physical Testing Supervisor: RASHEEDA Soriano HPV,AGE GDLNon AGE GDLN ACOG TESTING Note . [facility] Comment on above: TESTS RESULT FLAG UN [facility] REF RANGE LAB Clinician Provided Cytology Information Source.............Cervix Other.............. No. of containers..01 ThinPrep Vial Age Algo ACOG Shila... FLAG LEGEND: L-Low Normal,H-High Normal,LL-Alert Low,HH-Alert High <-Panic Low,>-Panic High,A-Abnormal,AA-Critical Abnormal Performed at: 01 =G [facility] [address] Sarai Durant MD, IGP, RFX APTIMA HPV ASCU Note . [facility] Comment on above: TESTS RESULT FLAG UN ITS REF RANGE LAB DIAGNOSIS: 02 NEGATIVE FOR INTRAEPITHELIAL LESION OR MALIGNANCY. 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 Specimen adequacy: 02 Satisfactory for evaluation. No endocervical component is identified. An endocervical component is not commonly seen in the patient. Performed by: 03 My Kraus, Housing Manager ([facility]) QC reviewed by: 02 Debbie Pagan, Housing Manager ([facility]) . 02 Note: Note 02 [...] <-Panic Low,>-Panic High,A-Abnormal,AA-Critical Abnormal Performed at: [address] [place] [address] Sarai Durant MD, 03 REEVES [facility] [address] [address] Marito Torres PhD, Performed at: =G - [facility] [address] [id number] Skein Washer: Sarai Durant MD, Phone: [phone] Performed at: - [facility] [id number] Skein Washer: Sarai Durant MD, Phone: [phone] SPATULA-ALONE CERVIX [facility] GLUCOSE 1 HOURon 06-07-2024 Glucose [Mass/Vol] 108 mg/dL NINF - 13 0 mg/dL [facility] RECURRENT VAGINITIS (HTRX)on 06-07-2024 ATOPOBIUM VAGINAE 0 [facility] ATOPOBIUM VAGINAE Not detected [facility] BVAB 2,3 (BACTERIAL VAGINOSIS ASSOCIATED BACTERIA 2, 3); MOBILUNCUS SPP 0 [facility] [facility] BVAB 2,3 (BACTERIAL VAGINOSIS ASSOCIATED BACTERIA 2, 3); MOBILUNCUS SPP Not detected [facility] ANTONINO ALBICANS, PARAPSILOSIS, TROPICALIS 0 [facility] ANTONINO ALBICANS, PARAPSILOSIS, TROPICALIS Not detected [facility] ANTONINO GLABRATA 0 [facility] ANTONINO GLABRATA Not detected [facility] ANTONINO KRUSEI 0 [facility] ANTONINO KRUSEI Not detected [facility] CHLAMYDIA TRACHOMATIS 0 [facility] CHLAMYDIA TRACHOMATIS Not detected [facility] GARDNERELLA VAGINALIS 0 [facility] GARDNERELLA VAGINALIS Not detected [facility] MEGASPHAERA (TYPES 1, 2) 0 [facility] MEGASPHAERA (TYPES 1, 2) Not detected [facility] MYCOPLASMA GENITALIUM 0 [facility] MYCOPLASMA GENITALIUM Not detected [facility] NEISSERIA GONORRHOEAE 0 [facility] NEISSERIA GONORRHOEAE Not detected [facility] TRICHOMONAS VAGINALIS 0 [facility] TRICHOMONAS VAGINALIS Not detected N [facility] Urinalysis macro (dipstick) panel (U)on 06-06-2024 Bilirubin, UA Positive Negative - 4(70) +++ mg/dL [facility] Comment on above: small Blood, UA Negative Negative - 50 Sherman/mcL [facility] Clarity, UA Clear [facility] Color, UA Hanna [facility] Glucose, UA Negative Negative - 1999(110) ++++ mg/dL [facility] Interpretation and review of laboratory results Abnormal [facility] Ketones, UA Positive Negative - 160(16) ++++ mg/dL [facility] Comment on above: 160 Leukocytes, UA Negative Negative - 500+++ Jackie/mcL [facility] Nitrite, UA Negative Negative - Positive [facility] pH, UA 5.5 5 - 9 [facility] Protein, UA Positive Negative - 1999(20) ++++ mg/dL [facility] Comment on above: 100 Spec Grav, UA 1.03 1 - 1.03 [facility] Urobilinogen, UA 0.2 0.2 - 12 mg/dL [facility] MLR HEMOGLOBIN A1Con 025 Glucose [Mass/Vol] 105 mg/dL [facility] HbA1c (Bld) [Mass fraction] 5.3 % 4.5 - 6.2 % [facility] Comment on above: ADA RECOMMENDED LIMI T 4.0 - 6.0 ADA THERAPEUTIC TARGET < 7.0 ACTION SUGGESTED > 7.0 [facility] Urinalysis macro (dipstick) panel (U)on 05-09-2024 Bilirubin, UA Positive Negative - 4(70) +++ mg/dL [facility] Comment on above: small Blood, UA Negative Negative - 50 Sherman/mcL [facility] Clarity, UA Clear [facility] Color, UA Yellow [facility] Glucose, UA Negative Negative - 2000(110) ++++ mg/dL [facility] Interpretation and review of laboratory results Abnormal [facility] Ketones, UA Positive Negative - 160(16) ++++ mg/dL [facility] Comment on above: trace Leukocytes, UA Positive Negative - 500+++ Jackie/mcL [facility] Comment on above: small Nitrite, UA Negative Negative - Positive [facility] pH, UA 6.5 5 - 9 [facility] Protein, UA Positive Negative - 2000(20) ++++ mg/dL [facility] Comment on above: 100mg/dL Spec Grav, UA 1.025 1 - 1.03 [facility] Urobilinogen, UA 1.0 0.2 - 12 mg/dL [facility] HCG ( test) Ql (U)o n 04-07-2024 Interpretation and review of laboratory results Abnormal [facility] Preg Test, Ur Positive Negative [facility] US OB TRANSVAGINALon 025 OB TRANSVAGINAL TITLE [...] report is generated using voice recognition reporting (MynewMD). On occasion [employer] erroneously drops words from the report or [...] UA Negative Negative - 4(70) +++ mg/dL [facility] Blood, UA Positive Negative - 50 Sherman/mcL [facility] Comment on above: trace Clarity, UA Clear [facility] Color, UA Yellow [facility] Glucose, UA Negative Negative - 1999(110) ++++ mg/dL [facility] Interpretation and review of laboratory results Abnormal [facility] Ketones, UA Positive Negative - 160(16) ++++ mg/dL [facility] Comment on above: trace Leukocytes, UA Trace Negative - 500+++ Jackie/mcL [facility] Nitrite, UA Negative Negative - Positive [facility] pH, UA 5.5 5 - 9 [facility] Protein, UA Trace Negative - 2000(20) ++++ mg/dL [facility] Spec Grav, UA 1.03 1 - 1.03 [facility] Urobilinogen, UA 0.2 0.2 - 12 mg/dL [facility] TBH PREG QUANT HCGon 024 HCG QUANTITATIVE 5 mIU/mL [facility] Comment on above: 5-50 0.2-1 WEEK 50-500 1-2 WEEKS 100-5,000 2-3 WEEKS 500-10,000 3-4 WEEKS 1,000-50,000 4-5 WEEKS 10,000-100,000 5-6 WEEKS 15,000-200,000 6-8 WEEKS 10,000-100,000 2-[facility] QUANT HCGon 024 HCG QUANTITATIVE 16 mIU/mL [facility] Comment on above: 5-50 0.2-1 WEEK 50-500 1-2 WEEKS 100-5,000 2-3 WEEKS 500-10,000 3-4 WEEKS 1,000-50,000 4-5 WEEKS 10,000-100,000 5-6 WEEKS 15,000-200,000 6-8 WEEKS 10,000-100,000 2-3 [facility] PREG QUANT HCGon 024 HCG QUANTITATIVE 70 mIU/mL [facility] Comment on above: 5-50 0.2-1 WEEK 50-500 1-2 WEEKS 100-5,000 2-3 WEEKS 500-10,000 3-4 WEEKS 1,000-50,000 4-5 WEEKS 10,000-100,000 5-6 WEEKS 15,000-200,000 6-8 WEEKS 10,000-100,000 2-[address] [facility] ALL CBC WITH AUTO DIFFon BASOPHILS ABSOLUTE AUTO 0.0 [facility] Basophils/100 WBC (Bld) 0.2 % 0.2 - 2.0 % [facility] Eosinophils/100 WBC (Bld) 0.7 % Low 0.9 - 7.0 % [facility] Erythrocyte distribution width (RBC) [Ratio] 13.3 % 11.0 - 15.0 % [facility] Hematocrit (Bld) [Volume fraction] 37.9 % 36.0 - 48.0 % [facility] Hemoglobin (Bld) [Mass/Vol] 13.0 g/dL 12.0 - 16.0 g/dL [facility] IMMATURE GRANULOCYTES ABS AUTO 0.03 [facility] Immature granulocytes/100 WBC (Bld) 0.3 % 0.0 - 0.5 % [facility] Interpretation and review of laboratory results Abnormal [facility] LYMPHOCYTES ABSOLUTE AUTO 1.7 [facility] Lymphocytes/100 WBC (Bld) 14.9 % Low 20.5 - 60.0 % [facility] MCH (RBC) [Entitic mass] 27.6 pg 26.7 - 34.0 pg [facility] MCHC (RBC) [Mass/Vol] 34.3 g/dL 29.9 - 35.2 g/dL [facility] MCV (RBC) [Entitic vol] 80.5 fL Low 81.0 - 99.0 fL [facility] MONOCYTES ABSOLUTE AUTO 0.6 [facility] Monocytes/100 WBC (Bld) 5.6 % 1.7 - 12.0 % [facility] NEUTROPHILS ABSOLUTE AUTO 8.7 High [facility] Neutrophils/100 WBC (Bld) 78.3 % High 43.0 - 75.0 % [facility] Platelet mean volume (Bld) [Entitic vol] 9.1 fL Low 9.5 - 13.5 fL [facility] TBH EO # 0.1 [facility] TB PLT 297 [facility] RBC 4.71 [facility] WBC 11.1 High [facility] Leif 11-13-2023 L Specimen: [id number] Received: 11/16/23 Status: RUBINA Sharpe Num: [id number] Spec Type: Surgical Subm Dr: Newton Carter Tissues: A Products of Conception - Spontaneous or Missed (POC MOLAR Procedures: HE/3, Gross/Micro L4 Age/ Patient Sex Location Account Attending Physician Sarah Arce 23/F [id number] Newton Carter SPEC NUM: [id number] RECD: 11/16/23 STATUS: JONYMary SHARPE NUM: [id number] MARY: 11/13/[address]: Newton Carter ENTERED: 11/16/[address]: Myriam,Lab SPEC TYPE: Surgical DEPT: TOBY WOOD ENTERED BY: [id number] RECV BY: [id number] ORDERED: HE/3, Gross/Micro L4 ORDERED: HE/3, Gross/Micro [...] the complete mole Clinical Information Molar Specimen: [id number] Received: 11/16/23 Status: RUBINA Sharpe Num: [id number] Spec Type: Surgical Subm Dr: Newton Carter Tissues: A Products of Conception - Spontaneous or Missed (POC MOLAR Procedures: HE/3, Gross/Micro L4 Patient: Sarah Arce [id number] (Continued) Specimen: [id number] Received: 11/16/23 (Continued) Signed (signature on file) Antonia Camarena MD 11/21/23 1057 Specimen: [id number] Received: 11/16/23 Status: RUBINA Sharpe Num: [id number] Spec Type: Surgical Subm Dr: Newton Carter Tissues: A Products of Conception - Spontaneous or Missed (POC MOLAR Procedures: , Gross/Micro L4 Patient: ClaudeSarah [id number] (Continued) Specimen: [id number] Received: 11/16/23 (Continued) Gross Description The specimen was received in formalin with the patient's name and products of conception and consists of multiple jasmine-pink hemorrhagic soft tissue fragments measuring 12.0 x 11.0 x 1.5 cm in aggregate. Multiple cystic structures are identified ranging in size from 0.1 to 0.5 cm. The cysts are filled with a clear fluid. Sonography Technician sections of the cystic structures are submitted in cassettes A1-A3 DM Microscopic Description Microscopic examinations are performed supporting the above interpretation CPT Codes 55920 Specimen: [id number] Received: 11/16/23 Status: RUBINA Sharpe Num: [id number] Spec Type: Surgical Subm Dr: Newton Carter Tissues: A Products of Conception - Spontaneous or Missed (POC MOLAR Procedures: RYAN/Michael Beltrán/Lisa L4 Patient: Sarah Arce [id number] (Continued) Signed (signature on file) Antonia Camarena MD 11/21/23 1059 [facility] ALL CBC WITH AUTO DIFFon BASOPHILS ABSOLUTE AUTO 0.0 [facility] Basophils/100 WBC (Bld) 0.2 % 0.2 - 2.0 % [facility] Eosinophils/100 WBC (Bld) 1.3 % 0.9 - 7.0 % [facility] Erythrocyte distribution width (RBC) [Ratio] 13.3 % 11.0 - 15.0 % [facility] Hematocrit (Bld) [Volume fraction] 37.4 % 36.0 - 48.0 % [facility] Hemoglobin (Bld) [Mass/Vol] 12.6 g/dL 12.0 - 16.0 g/dL [facility] IMMATURE GRANULOCYTES ABS AUTO 0.02 [facility] Immature granulocytes/100 WBC (Bld) 0.2 % 0.0 - 0.5 % [facility] Interpretation and review of laboratory results Abnormal [facility] LYMPHOCYTES ABSOLUTE AUTO 1.4 [facility] Lymphocytes/100 WBC (Bld) 12.1 % Low 20.5 - 60.0 % [facility] MCH (RBC) [Entitic mass] 27.0 pg 26.7 - 34.0 pg [facility] MCHC (RBC) [Mass/Vol] 33.7 g/dL 29.9 - 35.2 g/dL [facility] MCV (RBC) [Entitic vol] 80.1 fL Low 81.0 - 99.0 fL [facility] MONOCYTES ABSOLUTE AUTO 0.7 [facility] Monocytes/100 WBC (Bld) 6.4 % 1.7 - 12.0 % [facility] NEUTROPHILS ABSOLUTE AUTO 9.2 High [facility] Neutrophils/100 WBC (Bld) 79.8 % High 43.0 - 75.0 % [facility] Platelet mean volume (Bld) [Entitic vol] 9.1 fL Low 9.5 - 13.5 fL [facility] TB EO # 0.2 [facility] TB PLT 284 [facility] RBC 4.67 [facility] TB WBC 11.5 High [facility] Automated basophil %Ordered By: CHUCK Huitron on 04-30-2023 Basophils/100 WBC (Bld) 0.7 % Normal . [facility] Comment on above: Performed By: #### C BC, HCGQNT #### [facility] [address] [place] [address] Automated basophil countOrde red By: CHUCK Huitron on 04-30-2023 Basophils (Bld) [#/Vol] 0.1 10*3/uL Normal 0.0-0.2 [facility] Comment on above: Result Comment: PERF ORMED BY: [place] [address] PATHOLOGIST BIBLE READER CHUY PALOMO M.D. Performed By: #### C BC, HCGQNT #### [address] Automated blood monocyte cou ntOrdered By: CHUCK Huitron on 04-30-2023 Monocytes (Bld) [#/Vol] 0.5 10*3/uL Normal 0.0-0.8 [facility] Comment on above: Performed By: #### C BC, HCGQNT #### [address] Automated eosinophil %Ordere d By: CHUCK Huitron on 04-30-2023 Eosinophils/100 WBC (Bld) 1.3 % Normal . [facility] Comment on above: Performed By: #### C BC, HCGQNT #### [address] Automated eosinophil countOr dered By: CHUCK Huitron on 04-30-2023 Eosinophils (Bld) [#/Vol] 0.1 10*3/uL Normal 0.0-0.45 [facility] Comment on above: Performed By: #### C BC, HCGQNT #### [address] Automated monocyte %Ordered By: CHUCK Huitron on 04-30-2023 Monocytes/100 WBC (Bld) 6.3 % Normal . [facility] Comment on above: Performed By: #### C BC, HCGQNT #### [address] Automated neutrophil %Ordere d By: CHUCK Huitron on 04-30-2023 Neutrophils/100 WBC (Bld) 63.0 % Normal . [facility] Comment on above: Performed By: #### C BC, HCGQNT #### [facility] [address] [place] [address] Choriogonadotropin.beta subu nit [Units/volume] in Serum or PlasmaOrdered By: SHANNON Huitron on 04-30-2023 HCG.beta subunit Qn 2358.00 m[IU]/mL [facility] Comment on above: Approximate Approxim ate hCG Gestational Age Range (mIU/ml) (weeks)0.2-1 5-50 1-2 50-500 2-3 100-5,000 3-4 500-10,000 4-5 1,000-50,000 5-6 10,000-100,000 6-8 15,000-200,000 8-12 10,000-100,000 Complete Blood Count Auto Di ffon 04-30-2023 Mean Corpuscular HGB Conc 34.7 g/dL Normal 32.0-35.0 [facility] Comment on above: Performed By: #### C BC, HCGQNT #### [facility] [address] [place] [address] NRBC% 0.1 /100{WBC} Normal 0-0.5 [facility] Comment on above: Performed By: #### C BC, HCGQNT #### [facility] [address] [place] [address] Erythrocyte distribution wid th [Ratio] by Automated countOrdered By: CHUCK Huitron on 04-30-2023 Erythrocyte distribution width (RBC) [Ratio] 14.1 % Normal 11.9-15.3 [facility] Comment on above: Performed By: #### C BC, HCGQNT #### [facility] [address] [place] [address] [place] Erythrocytes [#/volume] in B lood by Automated countOrdered By: CHUCK Huitron on 04-30-2023 RBC (Bld) [#/Vol] 4.40 10*6/uL Normal 3.60-5.[address] [facility] Comment on above: Performed By: #### C BC, HCGQNT #### [address] HCG,Quantitativeon HCG,Quantitative 2358.00 m[iU]/mL Normal Th e [facility] Comment on above: Result Comment: Appr oximate Approximate hCG Gestational Age Range (mIU/ml) (weeks) 0.2-1 5-50 1-2 50-500 2-3 100-5,000 3-4 500-10,000 4-5 1,000-50,000 5-6 10,000-100,000 6-8 15,000-200,000 8-12 10,000-100,000 PERFORMED BY: [place] [address] PATHOLOGIST BIBLE READER CHUY PALOMO M.D. Performed By: #### C BC, HCGQNT #### [address] Hematocrit [Volume Fraction] of Blood by Automated countOrdered By: CHUCK Huitron on 04-30-2023 Hematocrit (Bld) [Volume fraction] 35.3 % Normal 34.0-46.4 [facility] Comment on above: Performed By: #### C BC, HCGQNT #### [address] Hemoglobin [Mass/volume] in BloodOrdered By: CHUCK Huitron on 04-30-2023 Hemoglobin (Bld) [Mass/Vol] 12.2 g/dL Normal 11.8-15.4 [facility] Comment on above: Performed By: #### C BC, HCGQNT #### [address] Leif 04-30-2023 L Specimen: [id number] Received: 04/30/23 Status: RUBINA Dell Num: [id number] Spec Type: Surgical Subm Dr: CHUCK Astorga Tissues: A Products of Conception - Spontaneous or Missed (PRODUCTS OF CONCEPT Procedures: HE/3, Gross/Micro L4 Age/ Patient Sex Location Account Attending Physician Sarah Arce 23/F N3 [id number] CHUCK Astorga SPEC NUM: [id number] RECD: 04/30/23 STATUS: RUBINA SHARPE NUM: [id number] MARY: 04/30/23- SUBM DR: CHUCK Astorga ENTERED: 04/30/23 [facility] DR: SPEC TYPE: Surgical DEPT: S [...] is tentatively identified. tissue is not identified. Sonography Technician sections focused on potential villi. Sonography Technician sections are submitted in three cassettes labeled A1-A3. CPT Codes 11878 Specimen: [id number] Received: 04/30/23 Status: RUBINA Mcelroynahun Num: [id number] Spec Type: Surgical Subm Dr: CHUCK Astorga Tissues: A Products of Conception - Spontaneous or Missed (PRODUCTS OF CONCEPT Procedures: HE/3, Gross/Micro L4 Patient: Sarah Arce [id number] (Continued) Signed (signature on file) Tavia Abad MD 05/05/23 2315 Normal [facility] Leukocytes [#/volume] correc bridget for nucleated erythrocytes in Blood by Automated counOrdered By: CHUCK Huitron on 04-30-2023 WBC corrected for nucl RBC Auto (Bld) [#/Vol] 8.4 10*3/uL 3.8-11.6 [facility] Leukocytes [#/volume] in Blo od by Automated countOrdered By: CHUCK Huitron on 04-30-2023 WBC (Bld) [#/Vol] 8.4 10*3/uL Normal 3.8-11.6 [facility] Comment on above: Performed By: #### C SINDI, HCGQNT #### [facility] [address] Lymphocytes [#/volume] in Bl ood by Automated countOrdered By: CHUCK Huitron on 04-30-2023 Lymphocytes (Bld) [#/Vol] 2.4 10*3/uL Normal 1.00-4.8 [facility] Comment on above: Performed By: #### C SINDI, HCGQNT #### [facility] [address] [place] [address] Lymphocytes/100 leukocytes i n Blood by Automated countOrdered By: CHUCK Huitron on 04-30-2023 Lymphocytes/100 WBC (Bld) 28.7 % Normal . [facility] Comment on above: Performed By: #### C BC, HCGQNT #### [address] MCH [Entitic mass] by Automa bridget countOrdered By: CHUCK Huitron on 04-30-2023 MCH (RBC) [Entitic mass] 27.8 pg Normal 24.7-34.3 [facility] Comment on above: Performed By: #### C BC, HCGQNT #### [address] MCHC Auto (RBC) [Mass/Vol]Or dered By: CHUCK Huitron on 04-30-2023 MCHC (RBC) [Mass/Vol] 34.7 g/dL 32.0-35.0 [facility] MCV [Entitic volume] by Auto mated countOrdered By: CHUCK Huitron on 04-30-2023 MCV (RBC) [Entitic vol] 80.2 fL Normal 80-100 [facility] Comment on above: Performed By: #### C BC, HCGQNT #### [address] Neutrophils [#/volume] in Bl ood by Automated countOrdered By: CHUCK Huitron on 04-30-2023 Neutrophils (Bld) [#/Vol] 5.3 10*3/uL Normal 1.8-7.7 [facility] Comment on above: Performed By: #### C BC, HCGQNT #### [address] Nucleated erythrocytes [Pres ence] in Blood by Automated countOrdered By: CHUCK Huitron on 04-30-2023 Nucleated RBC Auto Ql (Bld) 0.1 /100{WBC} 0-0.5 [facility] Platelet mean volume [Entiti c volume] in Blood by Automated countOrdered By: SHANNON Huitron on 04-30-2023 Platelet mean volume (Bld) [Entitic vol] 6.7 fL Normal 6.3-10.7 [facility] Comment on above: Performed By: #### C BC, HCGQNT #### [facility] [address] [place] [address] Platelets [#/volume] in Bloo d by Automated countOrdered By: CHUCK Huitron on 04-30-2023 Platelets (Bld) [#/Vol] 317 10*3/uL Normal 150-450 [facility] Comment on above: Performed By: #### C BC, HCGQNT #### [facility] [address] [place] [address] US transvaginalon 04-30-2023 US transvaginal [facility] [place] [address] [place] [address] Ultrasound Report Signed Patient: Sarah Arce MR#: [id number] : 2000 Acct:[id number] Age/Sex: 23 / F ADM Date: 04/29/23 Loc: Room: [address] [place] [address] Type: REG CLI Attending Dr: Dawn Huitron MD Ordering Provider: CHUCK Astorga Date of Service: 04/30/23 US/US pelvic complete: D and C scheduled ([id number]) US/US transvaginal: PRODUCTS OF CONCEPTION WITH PRIOR [...] Usama Peña M.D.04/30/2023 9:37 AM Dictation Location: [place] [address] Tech: Anca Horn Transcribed By: GISSEL 04/30/2337 Dictated By: Usama Peña DO 04/30/2333 Signed By: 04/30/2337 Normal [facility] ABO/Rh Retypeon 04-29-2023 ABO/RH Recheck Result Positive Normal [facility] Comment on above: Result Comment: PERF ORMED BY: [place] [address] PATHOLOGIST BIBLE READER CHUY PALOMO M.D. Complete Blood Count Auto Di ffon 04-29-2023 Basophils (Bld) [#/Vol] 0.0 10*3/uL Normal 0.0-0.2 [facility] Comment on above: Result Comment: PERF ORMED BY: [place] [address] PATHOLOGIST BIBLE READER CHUY PALOMO M.D. Performed By: #### H CGQNT, CBC #### [place] [address] [place] Basophils/100 WBC (Bld) 0.3 % Normal . [facility] Comment on above: Performed By: #### H CGQNT, CBC #### [place] [address] [place] Eosinophils (Bld) [#/Vol] 0.2 10*3/uL Normal 0.0-0.45 [facility] Comment on above: Performed By: #### H CGQNT, CBC #### [place] [address] [place] Eosinophils/100 WBC (Bld) 1.1 % Normal . [facility] Comment on above: Performed By: #### H CGQNT, CBC #### [place] [address] [place] Erythrocyte distribution width (RBC) [Ratio] 13.9 % Normal 11.9-15.3 [facility] Comment on above: Performed By: #### H CGQNT, CBC #### [address] Hematocrit (Bld) [Volume fraction] 39.8 % Normal 34.0-46.4 [facility] Comment on above: Performed By: #### H CGQNT, CBC #### [address] Hemoglobin (Bld) [Mass/Vol] 13.3 g/dL Normal 11.8-15.4 [facility] Comment on above: Performed By: #### H CGQNT, CBC #### [address] Lymphocytes (Bld) [#/Vol] 2.3 10*3/uL Normal 1.00-4.8 [facility] Comment on above: Performed By: #### H CGQNT, CBC #### [address] Lymphocytes/100 WBC (Bld) 17.0 % Normal . [facility] Comment on above: Performed By: #### H CGQNT, CBC #### [address] MCH (RBC) [Entitic mass] 27.0 pg Normal 24.7-34.3 [facility] Comment on above: Performed By: #### H CGQNT, CBC #### [address] MCV (RBC) [Entitic vol] 80.8 fL Normal 80-100 [facility] Comment on above: Performed By: #### H CGQNT, CBC #### [address] Mean Corpuscular HGB Conc 33.5 g/dL Normal 32.0-35.0 [facility] Comment on above: Performed By: #### H CGQNT, CBC #### [address] Monocytes (Bld) [#/Vol] 0.5 10*3/uL Normal 0.0-0.8 [facility] Comment on above: Performed By: #### H CGQNT, CBC #### [facility] [address] [place] [address] [place] Monocytes/100 WBC (Bld) 4.0 % Normal . [facility] Comment on above: Performed By: #### H CGQNT, CBC #### [facility] [address] [place] [address] [place] Neutrophils (Bld) [#/Vol] 10.6 10*3/uL High 1.8-7.7 [facility] Comment on above: Performed By: #### H CGQNT, CBC #### [facility] [address] [place] [address] [place] Neutrophils/100 WBC (Bld) 77.6 % Normal . [facility] Comment on above: Performed By: #### H CGQNT, CBC #### [facility] [address] [place] [address] [place] NRBC% 0.2 /100{WBC} Normal 0-0.5 [facility] Comment on above: Performed By: #### H CGQNT, CBC #### [facility] [address] [place] [address] [place] Platelet mean volume (Bld) [Entitic vol] 7.0 fL Normal 6.3-10.7 [facility] Comment on above: Performed By: #### H CGQNT, CBC #### [facility] [address] [place] [address] [place] Platelets (Bld) [#/Vol] 369 10*3/uL Normal 150-450 [facility] [facility] Comment on above: Performed By: #### H CGQNT, CBC #### [facility] [address] [place] [address] [place] RBC (Bld) [#/Vol] 4.93 10*6/uL Normal 3.60-5.00 The [facility] Comment on above: Performed By: #### H CGQNT, CBC #### [facility] [address] [place] [address] [place] WBC (Bld) [#/Vol] 13.6 10*3/uL High 3.8-11.6 [facility] Comment on above: Performed By: #### H CGQNT, CBC #### [facility] [address] [place] [id number] [place] HCG,Quantitativeon 4 HCG,Quantitative 3230.00 m[iU]/mL Normal Th e [facility] Comment on above: Result Comment: Appr oximate Approximate hCG Gestational Age Range (mIU/ml) (weeks) 0.2-1 5-50 1-2 50-500 2-3 100-5,000 3-4 500-10,000 4-5 1,000-50,000 5-6 10,000-100,000 6-8 15,000-200,000 8-12 10,000-100,000 PERFORMED BY: [place] [address] PATHOLOGIST BIBLE READER CHUY PALOMO M.D. Performed By: #### H CGQNT, CBC #### [address] Type and Screenon 04-29-2023 ABO and Rh group Nom (Bld) Blood group A Rh(D) positive Normal The [facility] Leif 04-24-2023 L Specimen: [id number] Received: 04/24/23 Status: RUBINA Sharpe Num: [id number] Spec Type: Surgical Subm Dr: CHUCK Astorga Tissues: A Products of Conception - Spontaneous or Missed (POC) Procedures: HE/3, Gross/Micro L4 Age/ Patient Sex Location Account Attending Physician Sarah Arce 23/F [place] [id number] CHUCK Astorga SPEC NUM: [id number] RECD: 04/24/23 STATUS: RUBINA SHARPE NUM: [id number] MARY: 04/24/23 DR: CHUCK Astorga ENTERED: 04/24/23 [facility] DR: SPEC TYPE: Surgical DEPT: S ENTERED BY: [id number] RECV BY: [id number] ORDERED: HE/3, Gross/Micro L4 ORDERED: HE/3, Gross/Micro [...] foot length of 0.7 cm from heel-to-toe. Sonography Technician sections are submitted in 3 cassettes as follows: A1-A2 - Villous tissue A3 - tissue CPT Codes 67103 Specimen: [id number] Received: 04/24/23 Status: RUBINA Dell Num: [id number] Spec Type: Surgical Subm Dr: Dawn Huitron MD-NOMWaldemar Tissues: A Products of Conception - Spontaneous or Missed (POC) Procedures: RYAN/Jerel, Gross/Micro L4 Patient: Sarah Arce [id number] (Continued) Signed (signature on file) Tavia Abad MD 04/28/23 2321 Normal [facility] CBC AUTO DIFFon 10-02-2020 BASO # 0.0 103/ul Normal 0.0-0.1 The [facility] Comment on above: Performed By: #### U MICRO, UACSIND #### [facility] [address] [place] [address] Vandanadave Jacobson Basophils/100 WBC (Bld) 0.1 % Critically low 0.2-2.0 The [facility] Comment on above: Performed By: #### U MICRO, UACSIND #### [facility] [address] [place] [address] Vandana Jacobson EO # 0.0 103/ul Normal 0.0-0.7 The [facility] Comment on above: Performed By: #### U MICRO, UACSIND #### [facility] [address] [place] [address] Vandana Jacobson Eosinophils/100 WBC (Bld) 0.0 % Critically low 0.9-7.0 [facility] Comment on above: Performed By: #### U MICRO, UACSIND #### [facility] [address] [place] [address] Vandana Jacobson Erythrocyte distribution width (RBC) [Ratio] 15.9 % Critically high 11.0-15.0 The [facility] Comment on above: Performed By: #### U MICRO, UACSIND #### [facility] [address] [place] [address] Vandanadave Jacobson Hematocrit (Bld) [Volume fraction] 33.3 % Critically low 36.0-48.0 [facility] Comment on above: Performed By: #### U MICRO, UACSIND #### [facility] [address] [id number] Vandana Indira Hemoglobin (Bld) [Mass/Vol] 11.2 g/dL Critically low 12.0-16.0 The [facility] Comment on above: Performed By: #### U MICRO, UACSIND #### [facility] [address] [place] [address] Vandana Indira IG # 0.07 10e3/ul Critically high 0.00-0.03 The [facility] Comment on above: Performed By: #### U MICRO, UACSIND #### [facility] [address] [place] [address] Vandana Indira IG % 0.4 % Normal 0.0-0.5 The [facility] Comment on above: Performed By: #### U MICRO, UACSIND #### [facility] [address] [place] [address] Vandana Indira LYMPH # 1.9 103/ul Normal 1.2-3.8 The [facility] Comment on above: Performed By: #### U MICRO, UACSIND #### [facility] [address] [address] Vandana Indira Lymphocytes/100 WBC (Bld) 11.4 % Critically low 20.5-60.0 [facility] Comment on above: Performed By: #### U MICRO, UACSIND #### [facility] [address] [place] [address] Vandana Indira MANUAL DIFF REQ NO Normal The [facility] Comment on above: Performed By: #### U MICRO, UACSIND #### [facility] [address] [id number] Vandana Indira MCH (RBC) [Entitic mass] 27.7 pg Normal 26.7-34.0 The [facility] Comment on above: Performed By: #### U MICRO, UACSIND #### [facility] [address] [address] Vandana Indira MCHC (RBC) [Mass/Vol] 33.6 g/dL Normal 29.9-35.2 The [facility] Comment on above: Performed By: #### U MICRO, UACSIND #### [facility] [address] [place], [place] [address] Vandana Jacobson MCV (RBC) [Entitic vol] 82.4 fL Normal 81.0-99.0 The [facility] Comment on above: Performed By: #### U MICRO, UACSIND #### [facility] [address] [id number] Vandana Indira MONO # 1.0 103/ul Critically high 0.3-0.8 The [facility] Comment on above: Performed By: #### U MICRO, UACSIND #### [facility] [address] [id number] Vandana Indira Monocytes/100 WBC (Bld) 6.3 % Normal 1.7-12.0 The [facility] Comment on above: Performed By: #### U MICRO, UACSIND #### [facility] [address] [place], [place] [address] Vandana Indira NEUT # 13.4 103/ul Critically high 1.4-6.5 The [facility] Comment on above: Performed By: #### U MICRO, UACSIND #### [facility] [address] [place], [place] [address] Vandana Indira Neutrophils/100 WBC (Bld) 81.8 % Critically high 43.0-75.0 The [facility] Comment on above: Performed By: #### U MICRO, UACSIND #### [facility] [address] [id number] Vandanadave Lien Platelet mean volume (Bld) [Entitic vol] 10.3 fL Normal 9.5-13.5 The [facility] Comment on above: Performed By: #### U MICRO, UACSIND #### [facility] [address] [place], [place] [address] Vandana Indira PLT 202 103/ul Normal 150-450 The [facility] Comment on above: Performed By: #### U MICRO, UACSIND #### [facility] [address] [id number] Vandana Indira RBC 4.04 106/ul Critically low 4.20-5.40 The [facility] Comment on above: Performed By: #### U MICRO, UACSIND #### [facility] [address] [place], [place] [address] Vandana Jacobson WBC 16.4 103/ul Critically high 4.0-11.0 [facility] Comment on above: Performed By: #### U MICRO, UACSIND #### [facility] [address] [place], [place] [address] Vandana Jacobson ASYMPTOMATIC COVID-19 ANTIGE Non 10-01-2020 EUA Statement SEE BELOW Normal The [facility] Comment on above: Result Comment: This [...] sooner. Performed By: #### C VDAGA #### [facility] [address] [place] [address] Vandana Jacobson SARS-CoV-2 (COVID-19) RNA RAMA+probe Ql (Unsp spec) Negative Normal NEGATIVE The [facility] Comment on above: Result Comment: Nega tive results are presumptive. They do not preclude infection and should not be used as the sole basis for treatment decisions. Additional confirmatory testing by a molecular method should be considered. Performed By: #### C VDAGA #### [facility] [address] [place], [place] [id number] Vandana Jacobson CBC AUTO DIFFon 10-01-2020 BASO # 0.0 103/ul Normal 0.0-0.1 [facility] Comment on above: Performed By: #### D RUGRPD #### [facility] [address] [id number] Vandana Indira Basophils/100 WBC (Bld) 0.1 % Critically low 0.2-2.0 The [facility] Comment on above: Performed By: #### D RUGRPD #### [facility] [address] [place], [place] [address] Vandana Indira EO # 0.0 103/ul Normal 0.0-0.7 The [facility] Comment on above: Performed By: #### D RUGRPD #### [facility] [address] [place], [place] [address] Vandana Indira Eosinophils/100 WBC (Bld) 0.1 % Critically low 0.9-7.0 The [facility] Comment on above: Performed By: #### D JESID #### [facility] [address] [place], [place] [address] Vandana Indira Erythrocyte distribution width (RBC) [Ratio] 15.8 % Critically high 11.0-15.0 The [facility] Comment on above: Performed By: #### D RUGRPD #### [facility] [address] [place], [place] [address] Vandana Indira Hematocrit (Bld) [Volume fraction] 40.2 % Normal 36.0-48.0 [facility] Comment on above: Performed By: #### D JESID #### [facility] [address] [place], [place] [address] Vandana Indira Hemoglobin (Bld) [Mass/Vol] 13.4 g/dL Normal 12.0-16.0 [facility] Comment on above: Performed By: #### D RUGRPD #### [facility] [address] [place], [place] [address] Vandana Indira IG # 0.04 10e3/ul Critically high 0.00-0.03 The [facility] Comment on above: Performed By: #### D JESID #### [facility] [address] [place], [place] [address] Vandana Indira IG % 0.4 % Normal 0.0-0.5 [facility] Comment on above: Performed By: #### D JUDI #### [facility] [address] [place], [place] [address] Vandana Indira LYMPH # 1.5 103/ul Normal 1.2-3.8 [facility] Comment on above: Performed By: #### D JESID #### [facility] [address] [place], [place] [address] Vandana Indira Lymphocytes/100 WBC (Bld) 14.7 % Critically low 20.5-60.0 [facility] Comment on above: Performed By: #### D JESID #### [facility] [address] [place], [place] [address] Vandana Indira MANUAL DIFF REQ NO Normal The [facility] Comment on above: Performed By: #### D JUDI #### [facility] [address] [id number] Vandana Indira MCH (RBC) [Entitic mass] 27.3 pg Normal 26.7-34.0 [facility] Comment on above: Performed By: #### D JUDI #### [facility] [address] [place], [place] [address] Vandana Indira MCHC (RBC) [Mass/Vol] 33.3 g/dL Normal 29.9-35.2 [facility] Comment on above: Performed By: #### D JUDI #### [facility] [address] [place], [place] [address] Vandana Indira MCV (RBC) [Entitic vol] 82.0 fL Normal 81.0-99.0 [facility] Comment on above: Performed By: #### D JESID #### [facility] [address] [place], [place] [address] Vandana Indira MONO # 0.5 103/ul Normal 0.3-0.8 [facility] Comment on above: Performed By: #### D JUDI #### [facility] [address] [id number] Vandana Indira Monocytes/100 WBC (Bld) 5.2 % Normal 1.7-12.0 [facility] Comment on above: Performed By: #### D RUGRPD #### [facility] [address] [place], [place] [address] Vandana Indira NEUT # 8.1 103/ul Critically high 1.4-6.5 The [facility] Comment on above: Performed By: #### D RUGRPD #### [facility] [address] [place], [place] [address] Vandana Indira Neutrophils/100 WBC (Bld) 79.5 % Critically high 43.0-75.0 [facility] Comment on above: Performed By: #### D RUGRPD #### [facility] [address] [place], [place] [address] Vandana Indira Platelet mean volume (Bld) [Entitic vol] 10.6 fL Normal 9.5-13.5 [facility] Comment on above: Performed By: #### D RUGRPD #### [facility] [address] [place] [address] Vandana Indira PLT 256 103/ul Normal 150-450 [facility] Comment on above: Performed By: #### D RUGRPD #### [facility] [address] [place], [place] [address] Vandana Indira RBC 4.90 106/ul Normal 4.20-5.40 [facility] Comment on above: Performed By: #### D RUGRPD #### [facility] [address] [place] [address] Vandana Indira WBC 10.2 103/ul Normal 4.0-11.0 [facility] Comment on above: Performed By: #### D RUGRPD #### [facility] [address] [place], [place] [address] Vandana Indira DRUG SCREEN RAPID (URINE)on 10-01-2020 AMP Negative Normal NEGATIVE [facility] Comment on above: Performed By: #### D RUGRPD #### [facility] [address] [place], [place] [address] Vandana Indira BAR Negative Normal NEGATIVE [facility] Comment on above: Performed By: #### D RUGRPD #### [facility] [address] [place], [place] [address] Vandana Indira BUP Negative Normal NEGATIVE [facility] Comment on above: Performed By: #### D RUGRPD #### [facility] [address] [place] [address] Vandana Indira BZO Negative Normal NEGATIVE [facility] Comment on above: Performed By: #### D RUGRPD #### [facility] [address] [place] [address] Vandana Indira ROLANDA Negative Normal NEGATIVE [facility] Comment on above: Performed By: #### D RUGRPD #### [facility] [address] [place] [address] Vandana Indira CUT-OFFS SEE BELOW Normal [facility] Comment on above: Result Comment: AMP [...] ng/mL Performed By: #### D RUGRPD #### [facility] [address] [place] [address] Vandana Indira DRUG CUT HEADER DRUG CLASS TEST SYSTEM CUT-OFF CONCENTRATIONS ARE FOLLOWS: Normal [facility] Comment on above: Performed By: #### D RUGRPD #### [facility] [address] [place] [address] Vandana Indira mAMP Negative Normal NEGATIVE [facility] Comment on above: Performed By: #### D RUGRPD #### [facility] [address] [place] [address] Vandana Indira MTD Negative Normal NEGATIVE [facility] Comment on above: Performed By: #### D RUGRPD #### [facility] [address] [place] [address] Vandana Indira OPI Negative Normal NEGATIVE [facility] Comment on above: Performed By: #### D RUGRPD #### [facility] [address] [place] [address] Vandana Indira OXY Negative Normal NEGATIVE [facility] Comment on above: Performed By: #### D RUGRPD #### [facility] [address] [address] Vandana Indira PCP Negative Normal NEGATIVE [facility] Comment on above: Performed By: #### D RUGRPD #### [facility] [address] [address] Vandana Indira PPX Negative Normal NEGATIVE [facility] Comment on above: Performed By: #### D RUGRPD #### [facility] [address] [address] Vandana Idnira TCA Negative Normal NEGATIVE [facility] Comment on above: Performed By: #### D RUGRPD #### [facility] [address] [place] [address] Vandana Indira THC Negative Normal NEGATIVE [facility] Comment on above: Performed By: #### D RUGRPD #### [facility] [address] [address] Vandana Indira TYPE AND SCREENon 10-01-2020 TYPE AND SCREEN Negative Normal [facility] Comment on above: Performed By: #### D RUGRPD #### [facility] [address] [place], [place] [address] Vandana Indira US PREG GROWTHon 09-12-2020 US [...] EFW: 6 lbs. 13 oz., 58% FL/AC: 0.833139 FL/BPD: 0.491585 HC/AC: 0.071770 GESTATIONAL AGE: Age by EDC: 36 weeks 6 days YUE by EDC: 10/04/2020 Age by US: 37 weeks 0 days YUE by US: 10/03/2020 IMPRESSION: Normal interval growth Electronically authenticated by: KECIA LEI Date: 2020-09-12 13:13 Normal [facility] HEMOGLOBINOPATHY FRACTIONATI ON CASCADEon 09-11-2020 HGB A 97.4 % Normal 96.4-98.8 [facility] Comment on above: Performed By: #### U MICRO, UACSIND #### [facility] [address] [address] Vandana Indira HGB A2 2.6 % Normal 1.8-3.2 [facility] Comment on above: Performed By: #### U MICRO, UACSIND #### [facility] [address] [id number] Vandana Jacobson HGB F 0.0 % Normal 0.0-2.0 [facility] Comment on above: Performed By: #### U MICRO, UACSIND #### [facility] [address] [id number] Vandana Jacobson HGB S 0.0 % Normal 0.0 [facility] Comment on above: Performed By: #### U MICRO, UACSIND #### [facility] [address] [id number] Vandana Indira Interpretation: Comment Normal [facility] Comment on above: Result Comment: Norm al hemoglobin present; no hemoglobin variant or thalassemia observed. Performed By: #### U MICRO, UACSIND #### [facility] [address] [id number] Vandana Indira CBC AUTO DIFFon 09-10-2020 BASO # 0.0 103/ul Normal 0.0-0.1 [facility] Comment on above: Performed By: #### C BC #### [facility] [address] [id number] Vandana Indira Basophils/100 WBC (Bld) 0.1 % Critically low 0.2-2.0 [facility] Comment on above: Performed By: #### C BC #### [facility] [address] [place], [place] [address] Vandana Indira EO # 0.0 103/ul Normal 0.0-0.7 [facility] Comment on above: Performed By: #### C BC #### [facility] [address] [place], [place] [address] Vadnana Indira Eosinophils/100 WBC (Bld) 0.4 % Critically low 0.9-7.0 [facility] Comment on above: Performed By: #### C BC #### [facility] [address] [place] [address] Vandana Indira Erythrocyte distribution width (RBC) [Ratio] 16.0 % Critically high 11.0-15.0 [facility] Comment on above: Performed By: #### C BC #### [facility] [address] [place] [address] Vandana Indira Hematocrit (Bld) [Volume fraction] 36.5 % Normal 36.0-48.0 [facility] Comment on above: Performed By: #### C BC #### [facility] [address] [place] [address] Vandana Indira Hemoglobin (Bld) [Mass/Vol] 12.2 g/dL Normal 12.0-16.0 [facility] Comment on above: Performed By: #### C BC #### [facility] [address] [place] [address] Vandana Indira IG # 0.07 10e3/ul Critically high 0.00-0.03 [facility] Comment on above: Performed By: #### C BC #### [facility] [address] [place], [place] [address] Vandana Indira IG % 0.9 % Critically high 0.0-0.5 [facility] Comment on above: Performed By: #### C BC #### [facility] [address] [place], [place] [address] Vandana Indira LYMPH # 1.9 103/ul Normal 1.2-3.8 [facility] Comment on above: Performed By: #### C BC #### [facility] [address] [place], [place] [address] Vandana Indira Lymphocytes/100 WBC (Bld) 23.7 % Normal 20.5-60.0 [facility] Comment on above: Performed By: #### C BC #### [facility] [address] [place], [place] [address] Vandana Indira MANUAL DIFF REQ NO Normal [facility] Comment on above: Performed By: #### C BC #### [facility] [address] [place], [place] [address] Vandana Indira MCH (RBC) [Entitic mass] 27.4 pg Normal 26.7-34.0 [facility] Comment on above: Performed By: #### C BC #### [facility] [address] [place], [place] [address] Vandana Indira MCHC (RBC) [Mass/Vol] 33.4 g/dL Normal 29.9-35.2 [facility] Comment on above: Performed By: #### C BC #### [facility] [address] [place], [place] [address] Vandana Indira MCV (RBC) [Entitic vol] 82.0 fL Normal 81.0-99.0 [facility] Comment on above: Performed By: #### C BC #### [facility] [address] [place], [place] [address] Vandnaa Indira MONO # 0.7 103/ul Normal 0.3-0.8 [facility] Comment on above: Performed By: #### C BC #### [facility] [address] [place], [place] [address] Vandana Indira Monocytes/100 WBC (Bld) 8.8 % Normal 1.7-12.0 [facility] Comment on above: Performed By: #### C BC #### [facility] [address] [place], [place] [address] Vandana Indira NEUT # 5.3 103/ul Normal 1.4-6.5 [facility] Comment on above: Performed By: #### C BC #### [facility] [address] [place], [place] [address] Vandana Jacobson Neutrophils/100 WBC (Bld) 66.1 % Normal 43.0-75.0 [facility] Comment on above: Performed By: #### C BC #### [facility] [address] [place], [place] [address] Vandanadave Jacobson Platelet mean volume (Bld) [Entitic vol] 11.6 fL Normal 9.5-13.5 [facility] Comment on above: Performed By: #### C BC #### [facility] [address] [place], [place] [address] Vandana Indira PLT 221 103/ul Normal 150-450 [facility] Comment on above: Performed By: #### C BC #### [facility] [address] [place] [address] Vandana Indira RBC 4.45 106/ul Normal 4.20-5.40 [facility] Comment on above: Performed By: #### C BC #### [facility] [address] [place] [address] Vandana Indira WBC 8.1 103/ul Normal 4.0-11.0 [facility] Comment on above: Performed By: #### C BC #### [facility] [address] [place], [place] [address] Vandana Jacobson VAGINITIS/VAGINOSIS DNA PROB Miller 09-08-2020 Antonino species Negative Normal Negative [facility] Comment on above: Performed By: #### V AGINT #### [facility] [address] [place], [place] [address] Vandana Indira Gardnerella vaginalis Negative Normal Negative [facility] Comment on above: Performed By: #### V AGINT #### [facility] [address] [place], [place] [address] Vandana Indira Trichomonas vaginalis Negative Normal Negative [facility] Comment on above: Performed By: #### V AGINT #### [facility] [address] [place], [place] [address] Vandanadave Jacobson CHLAMYDIA/GONOCOCCUS RAMA (SW AB/URINE/PAPon 09-07-2020 Chlamydia trachomatis, RAMA Negative Normal Negative [facility] Comment on above: Performed By: #### D RUGRPD #### [facility] [address] [place] [address] Vandana Indira Neisseria gonorrhoeae, RAMA Negative Normal Negative [facility] Comment on above: Performed By: #### D RUGRPD #### [facility] [address] [place] [address] Vandana Indira GROUP B STREP CULTUREon 07- S. agalactiae Ag Ql (Unsp spec) Culture Observations: NEGATIVE FOR GROUP B STREPTOCOCCUS. Normal [facility] Comment on above: Performed By: #### D RUGRPD #### [facility] [address] [place] [address] Vandana Indira CULTURE URINEon 08-31-2020 CULTURE URINE Culture Observations: LIGHT GROWTH OF MIXED GENITAL TEDDY. NO POTENTIAL PATHOGENS SEEN. Normal [facility] Comment on above: Performed By: #### D RUGRPD #### [facility] [address] [place] [address] Vandana Indira UA (CLEAN/CATCH) DIRECTOR OF TRAUMA/MICRO I F IND.on 08-31-2020 Bilirubin Ql (U) Negative Normal NEGATIVE [facility] Comment on above: Performed By: #### U MICRO, UACSIND #### [facility] [address] [place] [address] Vandana Indira Clarity (U) SL CLOUDY Abnormal CLEAR [facility] Comment on above: Performed By: #### U MICRO, UACSIND #### [facility] [address] [place] [address] Vandana Indira Color (U) LT. YELLOW Normal YELLOW [facility] Comment on above: Performed By: #### U MICRO, UACSIND #### [facility] [address] [place] [address] Vandana Indira Glucose Ql (U) Negative Normal NEGATIVE [facility] Comment on above: Performed By: #### U MICRO, UACSIND #### [facility] [address] [place] [address] Vandana Indira Hemoglobin Ql (U) Negative Normal NEGATIVE [facility] Comment on above: Performed By: #### U MICRO, UACSIND #### [facility] [address] [address] Vandana Indira Ketones Ql (U) 15 mg/dl Abnormal NEGATIVE [facility] Comment on above: Performed By: #### U MICRO, UACSIND #### [facility] [address] [place] [address] Vandana Indira LEUKOCYTES SMALL Abnormal NEGATIVE [facility] Comment on above: Performed By: #### U MICRO, UACSIND #### [facility] [address] [place] [address] Vandana Indira Nitrite Ql (U) Negative Normal NEGATIVE [facility] Comment on above: Performed By: #### U MICRO, UACSIND #### [facility] [address] [place] [address] Vandana Indira pH (U) 7.0 [pH] Normal 5-9 [facility] Comment on above: Performed By: #### U MICRO, UACSIND #### [facility] [address] [place] [address] Vandana Indira SPEC GRAVITY 1.015 Normal 1.005-<=1.025 [facility] Comment on above: Performed By: #### U MICRO, UACSIND #### [facility] [address] [place] [address] Vandana Indira UA PROTEIN Negative Normal NEGATIVE/ TRACE [facility] Comment on above: Performed By: #### U MICRO, UACSIND #### [facility] [address] [place] [address] Vandana Indira UR MICRO IND INDICATED Normal [facility] Comment on above: Performed By: #### U MICRO, UACSIND #### [facility] [address] [place] [address] Vandana Indira Urobilinogen Qn (U) 0.2 {Richard'U}/dL Normal 0.2 - 1. 0 [facility] Comment on above: Performed By: #### U MICRO, UACSIND #### [facility] [address] [place] [address] Vandana Indira URINE MICROSCOPIC ONLYon BACTERIA SMALL Abnormal NONE SEEN [facility] Comment on above: Performed By: #### U MICRO, UACSIND #### [facility] [address] [place] [address] Vandana Indira Bacteria identified Cx Nom (U) INDICATED Normal [facility] Comment on above: Performed By: #### U MICRO, UACSIND #### [facility] [address] [place] [address] Vandana Indira CAST NONE SEEN Normal NONE SEEN [facility] Comment on above: Performed By: #### U MICRO, UACSIND #### [facility] [address] [place] [address] Vandana Indira Crystals LM Nom (Urine sed) NONE SEEN Normal NONE SEEN [facility] Comment on above: Performed By: #### U MICRO, UACSIND #### [facility] [address] [place] [address] Vandana Indira Epithelial cells LM Ql (Urine sed) MODERATE Abnormal NONE SEEN /RARE [facility] Comment on above: Performed By: #### U MICRO, UACSIND #### [facility] [address] [place] [address] Vandana Indira MUCOUS NONE SEEN Normal NONE SEEN [facility] Comment on above: Performed By: #### U MICRO, UACSIND #### [facility] [address] [place] [address] Vandana Indira RBC NONE SEEN Abnormal 0-2 [facility] Comment on above: Performed By: #### U MICRO, UACSIND #### [facility] [address] [place] [address] Vandana Indira WBC NONE SEEN Normal NONE SEEN [facility] Comment on above: Performed By: #### U MICRO, UACSIND #### [facility] [address] [place] [address] Vandana Indira CULTURE URINEon 08-01-2020 CULTURE URINE Culture Observations: LIGHT GROWTH OF MIXED GENITAL TEDDY. NO POTENTIAL PATHOGENS SEEN. Normal [facility] Comment on above: Performed By: #### U RCX #### [facility] [address] [id number] Vandana Indira UA RANDOM W/MICROSCOPICon BACTERIA TRACE Abnormal NONE SEEN [facility] Comment on above: Performed By: #### U AMIC #### [facility] [address] [address] Vandana Indira Bilirubin Ql (U) Negative Normal NEGATIVE [facility] Comment on above: Performed By: #### U AMIC #### [facility] [address] [id number] Vandana Indira CAST NONE SEEN Normal NONE SEEN [facility] Comment on above: Performed By: #### U AMIC #### [facility] [address] [address] Vandana Indira Clarity (U) CLEAR Normal CLEAR [facility] Comment on above: Performed By: #### U AMIC #### [facility] [address] [place] [address] Vandana Indira Color (U) LT. YELLOW Normal YELLOW [facility] Comment on above: Performed By: #### U AMIC #### [facility] [address] [address] Vandana Indira Crystals LM Nom (Urine sed) NONE SEEN Normal NONE SEEN [facility] Comment on above: Performed By: #### U AMIC #### [facility] [address] [place], [place] [id number] Vandana Indira Epithelial cells LM Ql (Urine sed) FEW Abnormal NONE SEEN /RARE [facility] Comment on above: Performed By: #### U AMIC #### [facility] [address] [address] Vandana Indira Glucose Ql (U) Negative Normal NEGATIVE [facility] Comment on above: Performed By: #### U AMIC #### [facility] [address] [place], [place] [id number] Vandana Indira Hemoglobin Ql (U) Negative Normal NEGATIVE [facility] Comment on above: Performed By: #### U AMIC #### [facility] [address] [place] [address] Vandana Indira Ketones Ql (U) Negative Normal NEGATIVE [facility] Comment on above: Performed By: #### U AMIC #### [facility] [address] [place] [address] Vandana Indira LEUKOCYTES Negative Normal NEGATIVE [facility] Comment on above: Performed By: #### U AMIC #### [facility] [address] [id number] Vandana Indira MUCOUS NONE SEEN Normal NONE SEEN [facility] Comment on above: Performed By: #### U AMIC #### [facility] [address] [address] Vandana Indira Nitrite Ql (U) Negative Normal NEGATIVE [facility] Comment on above: Performed By: #### U AMIC #### [facility] [address] [place] [address] Vandana Indira pH (U) 7.5 [pH] Normal 5-9 [facility] Comment on above: Performed By: #### U AMIC #### [facility] [address] [place] [address] Vandana Indira RBC 0-2 Normal 0-2 [facility] Comment on above: Performed By: #### U AMIC #### [facility] [address] [place] [address] Vandana Indira SPEC GRAVITY 1.015 Normal 1.005-<=1.025 [facility] Comment on above: Performed By: #### U AMIC #### [facility] [address] [address] Vandana Indira UA PROTEIN Negative Normal NEGATIVE/ TRACE [facility] Comment on above: Performed By: #### U AMIC #### [facility] [address] [id number] Vandana Indira Urobilinogen Qn (U) 0.2 {Richard'U}/dL Normal 0.2 - 1. 0 [facility] Comment on above: Performed By: #### U AMIC #### [facility] [address] [place], [place] [id number] Vandana Indira WBC 0-2 Abnormal NONE SEEN [facility] Comment on above: Performed By: #### U AMIC #### [facility] [address] [id number] Vandana Indira CBC AUTO DIFFon 12-17-2019 BASO # 0.0 103/ul Normal 0.0-0.1 [facility] Comment on above: Performed By: #### C BC #### [facility] [address] [id number] Vandana Indira Basophils/100 WBC (Bld) 0.1 % Critically low 0.2-2.0 [facility] Comment on above: Performed By: #### C BC #### [facility] [address] [id number] Vandana Indira EO # 0.1 103/ul Normal 0.0-0.7 [facility] Comment on above: Performed By: #### C BC #### [facility] [address] [address] Vandana Indira Eosinophils/100 WBC (Bld) 0.9 % Normal 0.9-7.0 [facility] Comment on above: Performed By: #### C BC #### [facility] [address] [place], [place] [id number] Vandana Indira Erythrocyte distribution width (RBC) [Ratio] 14.3 % Normal 11.0-15.0 [facility] Comment on above: Performed By: #### C BC #### [facility] [address] [place], [place] [id number] Vandana Indira Hematocrit (Bld) [Volume fraction] 40.5 % Normal 36.0-48.0 [facility] Comment on above: Performed By: #### C BC #### [facility] [address] [id number] Vandana Indira Hemoglobin (Bld) [Mass/Vol] 13.2 g/dL Normal 12.0-16.0 [facility] Comment on above: Performed By: #### C BC #### [facility] [address] [id number] Vandana Indira IG # 0.01 10e3/ul Normal 0.00-0.03 [facility] Comment on above: Performed By: #### C BC #### [facility] [address] [id number] Vandana Indira IG % 0.1 % Normal 0.0-0.5 [facility] Comment on above: Performed By: #### C BC #### [facility] [address] [place], [place] [id number] Vandana Indira LYMPH # 2.0 103/ul Normal 1.2-3.8 [facility] Comment on above: Performed By: #### C BC #### [facility] [address] [place] [address] Vandana Jacobson Lymphocytes/100 WBC (Bld) 27.9 % Normal 20.5-60.0 [facility] Comment on above: Performed By: #### C BC #### [facility] [address] [place] [address] Vandana Jacobson MANUAL DIFF REQ NO Normal [facility] Comment on above: Performed By: #### C BC #### [facility] [address] [place], [place] [id number] Vandana Indira MCH (RBC) [Entitic mass] 25.7 pg Critically low 26.7-34.0 [facility] Comment on above: Performed By: #### C BC #### [facility] [address] [place], [place] [id number] Vandanadave Jacobson MCHC (RBC) [Mass/Vol] 32.6 g/dL Normal 29.9-35.2 [facility] Comment on above: Performed By: #### C BC #### [facility] [address] [place], [place] [id number] Vandana Indira MCV (RBC) [Entitic vol] 78.9 fL Critically low 81.0-99.0 [facility] Comment on above: Performed By: #### C BC #### [facility] [address] [place], [place] [address] Vandana Indira MONO # 0.5 103/ul Normal 0.3-0.8 [facility] Comment on above: Performed By: #### C BC #### [facility] [address] [id number] Vandanadave Lien Monocytes/100 WBC (Bld) 7.0 % Normal 1.7-12.0 [facility] Comment on above: Performed By: #### C BC #### [facility] [address] [id number] Vandanadave Lien NEUT # 4.5 103/ul Normal 1.4-6.5 [facility] Comment on above: Performed By: #### C BC #### [facility] [address] [place], [place] [address] Vandana Jacobson Neutrophils/100 WBC (Bld) 64.0 % Normal 43.0-75.0 [facility] Comment on above: Performed By: #### C BC #### [facility] [address] [place], [place] [address] Vandana Jacobson Platelet mean volume (Bld) [Entitic vol] 8.9 fL Critically low 9.5-13.5 [facility] Comment on above: Performed By: #### C BC #### [facility] [address] [place], [place] [address] Vandana Indira PLT 345 103/ul Normal 150-450 [facility] Comment on above: Performed By: #### C BC #### [facility] [address] [place], [place] [address] Vandanadave Lien RBC 5.13 106/ul Normal 4.20-5.40 [facility] Comment on above: Performed By: #### C BC #### [facility] [address] [place], [place] [address] Vandana Indira WBC 7.1 103/ul Normal 4.0-11.0 [facility] Comment on above: Performed By: #### C BC #### [facility] [address] [place], [place] [address] Vandana Jacobson FERRITINon 12-17-2019 Ferritin [Mass/Vol] 27.0 ng/mL Normal 6.2-137.0 [facility] Comment on above: Performed By: #### D RUGRPD #### [facility] [address] [place], [place] [address] Vandanadave Jacobson IRONon 12-17-2019 Iron [Mass/Vol] 35.0 ug/dL Critically low 37.0-170.0 [facility] Comment on above: Performed By: #### D JUDI #### [facility] [address] [place] [address] Vandana Jacobson PROF 14(COMP METB)on 020 Albumin [Mass/Vol] 3.7 g/dL Normal 3.5-5.0 [facility] Comment on above: Performed By: #### C MP #### [facility] [address] [place], [place] [address] Vandana Indira Albumin/Globulin [Mass ratio] 0.9 {ratio} Normal [facility] Comment on above: Performed By: #### C MP #### [facility] [address] [place] [address] Vandana Indira ALP [Catalytic activity/Vol] 82 U/L Normal 38-126 [facility] Comment on above: Performed By: #### C MP #### [facility] [address] [address] Vandana Indira ALT [Catalytic activity/Vol] 21 U/L Normal 9-52 [facility] Comment on above: Performed By: #### C MP #### [facility] [address] [place], [place] [id number] Vandana Indira Anion gap [Moles/Vol] 12.5 mmol/L Normal [facility] Comment on above: Performed By: #### C MP #### [facility] [address] [place] [address] Vandana Indira AST [Catalytic activity/Vol] 15 U/L Normal 14-36 [facility] Comment on above: Performed By: #### C MP #### [facility] [address] [place], [place] [address] Vandana Indira Bilirubin [Mass/Vol] 0.3 mg/dL Normal 0.2-1.3 [facility] Comment on above: Performed By: #### C MP #### [facility] [address] [place], [place] [address] Vandana Indira Calcium [Mass/Vol] 9.5 mg/dL Normal 8.4-10.2 [facility] Comment on above: Performed By: #### C MP #### [facility] [address] [place] [address] Vandana Indira Chloride [Moles/Vol] 104 mmol/L Normal 98-107 [facility] Comment on above: Performed By: #### C MP #### [facility] [address] [place] [address] Vandana Idnira CO2 [Moles/Vol] 28.4 mmol/L Normal 22.0-30.0 [facility] Comment on above: Performed By: #### C MP #### [facility] [address] [place] [address] Vandana Indira Creatinine [Mass/Vol] 0.69 mg/dL Normal 0.52-1.04 [facility] Comment on above: Performed By: #### C MP #### [facility] [address] [place] [address] Vandana Indira EGFR-AF NEW ZEALANDER >60 Normal >=60 [facility] Comment on above: Performed By: #### C MP #### [facility] [address] [place] [address] Vandana Indira EGFR-NON AF NEW ZEALANDER >60 Normal >=60 [facility] Comment on above: Performed By: #### C MP #### [facility] [address] [place] [address] Vandana Indira Globulin (S) [Mass/Vol] 4.1 g/dL Normal [facility] Comment on above: Performed By: #### C MP #### [facility] [address] [place] [address] Vandana Indira Glucose [Mass/Vol] 94 mg/dL Normal 74-106 [facility] Comment on above: Performed By: #### C MP #### [facility] [address] [place] [address] Vandana Indira Potassium [Moles/Vol] 3.9 mmol/L Normal 3.4-5.0 [facility] Comment on above: Performed By: #### C MP #### [facility] [address] [place], [place] [address] Vandana Indira Protein [Mass/Vol] 7.8 g/dL Normal 6.1-8.2 [facility] Comment on above: Performed By: #### C MP #### [facility] [address] [id number] Vandana Indira Sodium [Moles/Vol] 141 mmol/L Normal 137-145 [facility] Comment on above: Performed By: #### C MP #### [facility] [address] [id number] Vandana Indira Urea nitrogen [Mass/Vol] 16.0 mg/dL Normal 7.0-17.0 [facility] Comment on above: Performed By: #### C MP #### [facility] [address] [place] [address] Vandana Indira Urea nitrogen/Creatinine [Mass ratio] 23.2 mg/mg Normal [facility] Comment on above: Performed By: #### C MP #### [facility] [address] [place], [place] [address] Vandana Indira PROTIMEon 12-17-2019 INR Coag (PPP) [Relative time] 0.97 {INR} Normal [facility] Comment on above: Performed By: #### D RUGRPD #### [facility] [address] [place], [place] [address] Vandana Indira INR GUIDELINES SEE BELOW Normal [facility] Comment on above: Result Comment: ABHIJIT RED INR: 2.0 - 3.0 CONDITIONS NOT LISTED BELOW 2.5 - 3.5 FOR PROSTHETIC HEART VALVE REPLACEMENT 2.5 - 3.5 RECURRENT THROMBOSIS Performed By: #### D RUGRPD #### [facility] [address] [place], [place] [id number] Vandana Indira PT Coag (PPP) [Time] 10.3 s Normal 9.0-11.6 [facility] Comment on above: Performed By: #### D RUGRPD #### [facility] [address] [place], [place] [address] Vandana Indira PT NORMAL PLEASE NOTE: NORMAL RANGE CHANGE 9-18-2014 DUE TO REAGENT LOT CHANGE Normal [facility] Comment on above: Performed By: #### D RUGRPD #### [facility] [address] [place], [place] [address] Vandana Jacobson PTTon 12-17-2019 aPTT Coag (Bld) [Time] 30.7 s Normal 22.3-36.2 Th e [facility] Comment on above: Performed By: #### D RUGRPD #### [facility] [address] [place], [place] [address] Vandana Jacobson PTT NORMAL PLEASE NOTE: NORMAL RANGE CHANGE 01-31-2015 DUE TO REAGENT LOT CHANGE Normal [facility] Comment on above: Performed By: #### D RUGRPD #### [facility] [address] [place], [place] [address] Vandana Jacobson Vital Signs Date Time Vital Sign Value Performing Clinician Facility 11-09-2024 15:22-0400 Body mass index (BMI) [Ratio] 36.64 kg/m2 Sarah NGUYEN Work Phone: [facility] 11-09-2024 15:22-0400 Body weight 82.28 kg Sarah NGUYEN Work Phone: [facility] 11-09-2024 15:22-0400 Diastolic blood pressure 68 mm[Hg] Sarah NGUYEN Work Phone: [facility] 11-09-2024 15:22-0400 Systolic blood pressure 108 mm[Hg] Sarah NGUYEN Work Phone: [facility] 11-02-2024 15:34-0400 Body mass index (BMI) [Ratio] 35.95 kg/m2 Newton Raul DO Work Phone: [facility] 11-02-2024 15:34-0400 Body weight 80.74 kg Newton Raul DO Work Phone: [facility] 11-02-2024 15:34-0400 Diastolic blood pressure 72 mm[Hg] Newton Raul DO Work Phone: [facility] 11-02-2024 15:34-0400 Systolic blood pressure 110 mm[Hg] Newton Raul DO Work Phone: [facility] 10-25-2024 13:34-0400 Body mass index (BMI) [Ratio] 35.55 kg/m2 Sarah Isamar PA Work Phone: [facility] 10-25-2024 13:34-0400 Body weight 79.83 kg Sarah [place] PA Work Phone: [facility] 10-25-2024 13:34-0400 Diastolic blood pressure 70 mm[Hg] Sarah Isamar PA Work Phone: [facility] 10-25-2024 13:34-0400 Systolic blood pressure 100 mm[Hg] Sarah Isamar PA Work Phone: [facility] 10-17-2024 09:35-0400 Body mass index (BMI) [Ratio] 35.35 kg/m2 Newton Raul DO Work Phone: [facility] 10-17-2024 09:35-0400 Body weight 79.38 kg Newton Raul DO Work Phone: [facility] 10-17-2024 09:35-0400 Diastolic blood pressure 72 mm[Hg] Newton Raul DO Work Phone: [facility] 10-17-2024 09:35-0400 Systolic blood pressure 120 mm[Hg] Newton Raul DO Work Phone: [facility] 10-10-2024 10:50-0400 Body mass index (BMI) [Ratio] 34.74 kg/m2 Sarah Isamar PA Work Phone: [facility] 10-10-2024 10:50-0400 Body weight 78.02 kg Sarah Isamar PA Work Phone: [facility] 10-10-2024 10:50-0400 Diastolic blood pressure 68 mm[Hg] Sarah Isamar PA Work Phone: [facility] 10-10-2024 10:50-0400 Systolic blood pressure 114 mm[Hg] Sarah Isamar PA Work Phone: [facility] 09-26-2024 14:58-0400 Body mass index (BMI) [Ratio] 34.29 kg/m2 Newton Raul DO Work Phone: [facility] 09-26-2024 14:58-0400 Body weight 77 kg Newton Raul DO Work Phone: [facility] 09-26-2024 14:58-0400 Diastolic blood pressure 74 mm[Hg] Newton Raul DO Work Phone: [facility] 09-26-2024 14:58-0400 Systolic blood pressure 108 mm[Hg] Newton Raul DO Work Phone: [facility] 09-14-2024 15:47-0400 Body mass index (BMI) [Ratio] 33.93 kg/m2 Newton Raul DO Work Phone: [facility] 09-14-2024 15:47-0400 Body weight 76.2 kg Newton Raul DO Work Phone: [facility] 09-14-2024 15:47-0400 Diastolic blood pressure 74 mm[Hg] Newton Raul DO Work Phone: [facility] 09-14-2024 15:47-0400 Systolic blood pressure 110 mm[Hg] Newtno Raul DO Work Phone: [facility] 09-01-2024 14:27-0400 Body mass index (BMI) [Ratio] 33.98 kg/m2 Sarah NGUYEN Work Phone: [facility] 09-01-2024 14:27-0400 Body weight 76.32 kg Sarah NGUYEN Work Phone: [facility] 09-01-2024 14:27-0400 Diastolic blood pressure 70 mm[Hg] Sarah NGUYEN Work Phone: [facility] 09-01-2024 14:27-0400 Systolic blood pressure 108 mm[Hg] Sarah NGUYEN Work Phone: [facility] 08-11-2024 11:06-0400 Body mass index (BMI) [Ratio] 33.53 kg/m2 Newton Raul DO Work Phone: [facility] 08-11-2024 11:06-0400 Body weight 75.3 kg Newton Raul DO Work Phone: [facility] 08-11-2024 11:06-0400 Diastolic blood pressure 70 mm[Hg] Newton Raul DO Work Phone: [facility] 08-11-2024 11:06-0400 Systolic blood pressure 118 mm[Hg] Newton Raul DO Work Phone: [facility] 07-20-2024 09:34-0400 Body mass index (BMI) [Ratio] 32.52 kg/m2 Yris Castellanos [employer] Work Phone: [facility] 07-20-2024 09:34-0400 Body weight 73.03 kg Yris Castellanos [employer] Work Phone: [facility] 07-20-2024 09:34-0400 Diastolic blood pressure 72 mm[Hg] Yris Jasmin [employer] Work Phone: [facility] 07-20-2024 09:34-0400 Systolic blood pressure 118 mm[Hg] Yris Jasmin [employer] Work Phone: [facility] 06-06-2024 11:33-0400 Body mass index (BMI) [Ratio] 31.67 kg/m2 Sarah NGUYEN Work Phone: [facility] 06-06-2024 11:33-0400 Body weight 71.12 kg Sarah NGUYEN Work Phone: [facility] 06-06-2024 11:33-0400 Diastolic blood pressure 70 mm[Hg] Sarah NGUYEN Work Phone: [facility] 06-06-2024 11:33-0400 Systolic blood pressure 120 mm[Hg] Sarah NGUYEN Work Phone: [facility] 05-09-2024 10:21-0500 Body mass index (BMI) [Ratio] 31.99 kg/m2 Newton Raul DO Work Phone: [facility] 05-09-2024 10:21-0500 Body weight 71.85 kg Newton Raul DO Work Phone: [facility] 05-09-2024 10:21-0500 Diastolic blood pressure 76 mm[Hg] Newton Raul DO Work Phone: [facility] 05-09-2024 10:21-0500 Systolic blood pressure 122 mm[Hg] Newton Raul DO Work Phone: [facility] 04-07-2024 13:43-0500 Body mass index (BMI) [Ratio] 32.52 kg/m2 [facility] 04-07-2024 13:43-0500 Body weight 73.03 kg Nom Nurse [facility] 04-07-2024 13:43-0500 Diastolic blood pressure 72 mm[Hg] [facility] Nurse [facility] 04-07-2024 13:43-0500 Systolic blood pressure 118 mm[Hg] [facility] 01-06-2024 10:50-0400 Body height 149.9 cm Sarah Kern PA Work Phone: [facility] 01-06-2024 10:50-0400 Body mass index (BMI) [Ratio] 32.47 kg/m2 Sarah Isamar PA Work Phone: [facility] 01-06-2024 10:50-0400 Body weight 72.92 kg Sarah Isamar PA Work Phone: [facility] 01-06-2024 10:50-0400 Diastolic blood pressure 78 mm[Hg] Sarah [place] PA Work Phone: [facility] 01-06-2024 10:50-0400 Systolic blood pressure 118 mm[Hg] Sarah Kern PA Work Phone: [facility] 04-30-2023 10:23-0500 Diastolic blood pressure 84 mm[Hg] PHYSICIAN NO [facility] 04-30-2023 10:23-0500 Heart rate 67 /min PHYSICIAN NO [facility] 04-30-2023 10:23-0500 Respiratory rate 18 /min PHYSICIAN NO [facility] 04-30-2023 10:23-0500 SaO2% (BldA) [Mass fraction] 99 % PHYSICIAN NO [facility] 04-30-2023 10:23-0500 Systolic blood pressure 130 mm[Hg] PHYSICIAN NO [facility] 04-30-2023 08:53-0500 Body temperature 98.3 [degF] PHYSICIAN NO [facility] 04-30-2023 08:12-0500 Inhaled oxygen flow rate 8 L/min PHYSICIAN NO [facility] 04-30-2023 07:44-0500 Body height 152.4 cm PHYSICIAN NO [facility] 04-30-2023 07:44-0500 Body mass index (BMI) [Ratio] 28.7 kg/m2 PHYSICIAN NO [facility] 04-30-2023 07:44-0500 Body weight 66.67 kg PHYSICIAN NO [facility] 04-24-2023 11:55-0500 Diastolic blood pressure 86 mm[Hg] PHYSICIAN NO [facility] 04-24-2023 11:55-0500 Heart rate 65 /min PHYSICIAN NO [facility] 04-24-2023 11:55-0500 Respiratory rate 16 /min PHYSICIAN NO [facility] 04-24-2023 11:55-0500 SaO2% (BldA) [Mass fraction] 100 % PHYSICIAN NO [facility] 04-24-2023 11:55-0500 Systolic blood pressure 119 mm[Hg] PHYSICIAN NO [facility] 04-24-2023 11:07-0500 Body temperature 98 [degF] PHYSICIAN NO [facility] 04-24-2023 10:42-0500 Inhaled oxygen flow rate 8 L/min PHYSICIAN NO [facility] 04-24-2023 08:52-0500 Body height 152.4 cm PHYSICIAN NO [facility] 04-24-2023 08:52-0500 Body mass index (BMI) [Ratio] 29 kg/m2 PHYSICIAN NO [facility] 04-24-2023 08:52-0500 Body weight 67.58 kg PHYSICIAN NO [facility] 04-20-2023 08:56-0500 Body mass index (BMI) [Ratio] 30.09 kg/m2 Dawn Huitron MD Work Phone: [facility] 04-20-2023 08:56-0500 Body weight 67.59 kg Dawn Huitron MD Work Phone: [facility] 04-20-2023 08:56-0500 Diastolic blood pressure 66 mm[Hg] Dawn Huitron MD Work Phone: [facility] 04-20-2023 08:56-0500 Systolic blood pressure 110 mm[Hg] Dawn Huitron MD Work Phone: [facility] Healthcare Encounters Encounter Date Encounter Type Care Provider Facility Start: 11-09-2024 End: 11-09-2024 flow sheet Sarah NGUYEN Work Phone: [facility] Comment on above: Third trimester preg ayanna ([facility]); 38 weeks gestation of ([facility]) Start: 11-09-2024 End: 11-09-2024 ambulatory SARAH KERN Not Available Start: 11-09-2024 End: 11-09-2024 Bamboo flowsheet Sarah NGUYEN Work Phone: [facility] Start: 11-09-2024 End: 11-09-2024 Bamboo flowsheet Sarah NGUYEN Work Phone: [facility] Start: 11-02-2024 End: 11-02-2024 flow sheet Newton Raul DO Work Phone: [facility] Comment on above: Third trimester preg ayanna ([facility]); 37 weeks gestation of ([facility]) Start: 11-02-2024 End: 11-02-2024 ambulatory NEWTON RAUL Not Available Start: 11-02-2024 End: 11-02-2024 Bamboo flowsheet Newton Raul DO Work Phone: [facility] Start: 11-02-2024 End: 11-02-2024 Bamboo flowsheet Newton Raul DO Work Phone: [facility] Start: 10-25-2024 End: 10-25-2024 Bamboo flowsheet Sarah NGUYEN Work Phone: [facility] Start: 10-25-2024 End: 10-31-2024 Bamboo flowsheet Sarah NGUYEN Work Phone: [facility] Start: 10-25-2024 End: 10-31-2024 Clinisync Result Encounter Generic External Data Provider [facility] External Department Unsolicited Start: 10-25-2024 End: 10-25-2024 ambulatory SARAH KERN Not Available Start: 10-25-2024 End: 10-25-2024 flow sheet Sarah NGUYEN Work Phone: [facility] Comment on above: 36 weeks gestation o f ([facility]); Third trimester ([facility]) Start: 10-17-2024 End: 10-17-2024 Bamboo flowsheet Newton Raul DO Work Phone: [facility] Start: 10-17-2024 End: 10-17-2024 Bamboo flowsheet Newton Raul DO Work Phone: [facility] Start: 10-17-2024 End: 10-17-2024 flow sheet Newton Raul DO Work Phone: [facility] Comment on above: Third trimester preg ayanna ([facility]); 35 weeks gestation of ([facility]) Start: 10-17-2024 End: 10-17-2024 ambulatory NEWTON RAUL Not Available Start: 10-10-2024 End: 10-10-2024 Bamboo flowsheet Sarah NGUYEN Work Phone: [facility] Start: 10-10-2024 End: 10-10-2024 Bamboo flowsheet Sarah NGUYEN Work Phone: [facility] Start: 10-10-2024 End: 10-10-2024 flow sheet Sarah NGUYEN Work Phone: [facility] Comment on above: Third trimester preg ayanna ([facility]); 34 weeks gestation of ([facility]); Urinary tract infection without hematuria, site unspecified Start: 10-10-2024 End: 10-10-2024 ambulatory SARAH KERN Not Available Start: 10-09-2024 End: 10-12-2024 Clinisync Result Encounter Generic External Data Provider [facility] External Department Unsolicited Start: 10-09-2024 End: 10-12-2024 Clinisync Result Encounter Generic External Data Provider [facility] External Department Unsolicited Start: 09-26-2024 End: 09-26-2024 flow sheet Newton Raul DO Work Phone: [facility] Comment on above: Third trimester preg ayanna ([facility]); 32 weeks gestation of ([facility]) Start: 09-26-2024 End: 09-26-2024 ambulatory NEWTON RAUL Not Available Start: 09-26-2024 End: 09-26-2024 Bamboo flowsheet Newton Raul DO Work Phone: [facility] Start: 09-26-2024 End: 09-26-2024 Bamboo flowsheet Newton Raul DO Work Phone: [facility] Start: 09-14-2024 End: 09-14-2024 flow sheet Newton Raul DO Work Phone: [facility] Comment on above: Third trimester preg ayanna ([facility]); 30 weeks gestation of ([facility]) Start: 09-14-2024 End: 09-14-2024 ambulatory NEWTON RAUL Not Available Start: 09-03-2024 End: 09-03-2024 Clinisync Result Encounter Generic External Data Provider [facility] External Department Unsolicited Start: 09-03-2024 End: 09-03-2024 Clinisync Result Encounter Generic External Data Provider [facility] External Department Unsolicited Start: 09-01-2024 End: 09-01-2024 flow sheet Sarah NGUYEN Work Phone: [facility] Comment on above: Third trimester preg ayanna ([facility]); 28 weeks gestation of ([facility]); size inconsistent with dates ([facility]); Nonintractable headache, unspecified chronicity pattern, unspecified headache [...] 07-20-2024 End: 07-20-2024 Bamboo flowsheet Yris Jasmin [employer] Work Phone: [facility] Start: 07-20-2024 End: 07-20-2024 Bamboo flowsheet Yris Jasmin [employer] Work Phone: [facility] Start: 07-20-2024 End: 07-20-2024 flow sheet Yris Jasmin [employer] Work Phone: [facility] Comment on [...] External Result Encounter Sarah NGUYEN Work Phone: [facility] External Department Unsolicited Start: 06-06-2024 End: 06-06-2024 Patient encounter procedure Sarah NGUYEN Work Phone: [facility] Healthcare Start: 06-06-2024 End: 06-06-2024 Periodic preventive med est patient 18-39 yrs Sarah NGUYEN Work Phone: [facility] Comment on above: 16 weeks gestation o f ; Second trimester ; Screening, , for anatomic survey; Exposure to STD; Vaginal discharge; Well woman exam with routine gynecological exam Start: 06-06-2024 End: 06-06-2024 ambulatory SARAH KERN Not Available Start: 05-09-2024 End: 05-09-2024 Bamboo flowsheet Newton Raul DO Work Phone: [facility] Start: 05-09-2024 End: 05-09-2024 Bamboo flowsheet Newton Raul DO Work Phone: [facility] Start: 05-09-2024 End: 05-09-2024 Clinisync Result Encounter Newton Raul DO Work Phone: [facility] External Department Unsolicited Start: 05-09-2024 End: 05-09-2024 flow sheet Newton Raul DO Work Phone: [facility] Comment on above: First trimester preg ayanna; 12 weeks gestation of ; Insulin resistance complicating Start: 05-09-2024 End: 05-09-2024 ambulatory NEWTON RAUL Not Available Start: 04-07-2024 End: 04-07-2024 Office outpatient visit 5 minutes [facility] Raul Nurse [facility] Comment on above: GA: 7w3d Start: 04-07-2024 End: 04-07-2024 ambulatory NEWTON RAUL Not Available Start: 01-06-2024 End: 01-06-2024 Bamboo flowsheet Sarah NGUYEN Work Phone: [facility] Start: 01-06-2024 End: 01-06-2024 Bamboo [...] Unsolicited Start: 11-13-2023 End: 11-13-2023 ambulatory PHYSICIAN [facility] Work Phone: Start: 11-13-2023 End: 11-13-2023 Departed Referred PHYSICIAN NO [facility] Work Phone: Start: 11-12-2023 End: 11-12-2023 Clinisync Result Encounter Newton Severinoo DO Work Phone: [facility] External Department Unsolicited Start: 11-12-2023 End: 11-12-2023 Clinisync Result Encounter Newton Raul DO Work Phone: [facility] External Department Unsolicited Start: 04-29-2023 End: 04-30-2023 Patient encounter procedure PHYSICIAN NO [facility] [place] [address] Medical - O/P Start: 04-29-2023 End: 04-30-2023 ambulatory PHYSICIAN NO [facility] Work Phone: Start: 04-24-2023 End: 04-24-2023 Admission to same day surgery center PHYSICIAN NO [facility] [place] Start: 04-24-2023 End: 04-24-2023 ambulatory PHYSICIAN NO [facility] Work Phone: Start: 04-20-2023 End: [...] ambulatory KOFI CURRIE Facility:[facility] Start: 09-06-2020 End: 07-01-2021 ambulatory TERENCE SCHMITZ Facility:[facility] Start: 08-31-2020 End: 08-31-2020 ambulatory TERENCE SCHMITZ Facility:[facility] Start: 08-01-2020 End: 08-01-2020 ambulatory TERENCE SCHMITZ Facility:[facility] Start: 12-17-2019 End: 12-18-2019 ambulatory TERENCE SCHMITZ Facility:[facility] Procedures Date Procedure Procedure Detail Performing Clinician Start: 11-09-2024 Urnls dip stick/tabl et rgnt non-auto w/o micrscp Sarah NGUYEN Work Phone: Start: 11-02-2024 Urnls dip stick/tabl et rgnt non-auto w/o micrscp Newton Raul DO Work Phone: Start: 10-25-2024 STREP GP B CULTURE+RFLX Generic External Data Provider Start: 10-25-2024 Urnls dip stick/tabl et rgnt non-auto w/o micrscp Sarah NGUYEN Work Phone: Start: 10-10-2024 Urnls dip stick/tabl et rgnt non-auto w/o micrscp Sarah NGUYEN Work Phone: Start: 10-09-2024 Bacteria identified in Urine by Culture Generic External Data Provider Start: 09-26-2024 Urnls dip stick/tabl et rgnt non-auto w/o micrscp Newton Raul DO Work Phone: Start: 09-14-2024 Urnls dip [...] 11-12-2023 ALL CBC WITH AUTO DIFF Newton Carter DO Work Phone: Start: 04-30-2023 Dilation and curetta ge of uterus PHYSICIAN NO FAMILY Start: 04-30-2023 Pelvic echography PHYSI RADHA NO FAMILY Start: 04-30-2023 Transvaginal echography PHYSICIAN NO FAMILY Start: 04-29-2023 Antibody screen PHYSICI AN NO FAMILY Comment on above: Result Comment: PERF ORMED BY: [facility] [address] [place] [address] PATHOLOGIST BIBLE READER CHUY PALOMO M.D. Start: 04-24-2023 Dilation and curetta ge of uterus PHYSICIAN NO FAMILY Start: 10-01-2020 Delivery of Products of Conception, External Approach ROOTER OPERATOR ALINA NADIR Start: 10-01-2020 Repair Vulva, Skidder Lever Operator al Approach ROOTER OPERATOR ALINA SCHMITZ Plan of Treatment Date Care Activity Detail Author Start: 11-15-2024 End: 11-15-2024 Patient encounter procedure 11/15/2024 9:00 AM EDT Routine [facility] [address] [place] [phone] Newton Carter DO [address] [place] [address] [facility] Start: 11-09-2024 End: 11-09-2024 Patient encounter procedure [facility] Comment on above: Arrived Start: 11-07-2024 Influenza vaccination [facility] Start: 11-02-2024 End: 11-02-2024 Patient encounter procedure [facility] Comment on above: Arrived Start: 10-25-2024 End: 10-25-2025 CULTURE, GROUP B STREP WITH SUSCEPTIBLITY CULTURE, GROUP B STREP WITH SUSCEPTIBLITY Lab Routine 36 weeks gestation of ([facility]) Third trimester ([facility]) Expected: 10/25/2024, Expires: 10/25/2025 [facility] Work Phone: Comment on above: Expected: 10/25/2024 , Expires: 10/25/2025 Start: 10-25-2024 End: 10-25-2024 Patient encounter procedure 10/25/2024 1:00 PM EDT Routine [facility] [address] [place] [phone] Sarah Kern PA [address] [place], [place] [id number] [facility] Start: 10-17-2024 End: 10-17-2024 Patient encounter procedure [facility] Comment on above: Arrived Start: 10-10-2024 End: 10-10-2024 Patient encounter procedure [facility] Comment on above: Arrived Start: 09-26-2024 End: 09-26-2024 Patient encounter procedure [facility] Comment on above: Arrived Start: 09-14-2024 End: 09-14-2024 Patient encounter procedure 09/14/2024 3:30 PM EDT Routine [facility] [address] [place] [phone] Newton Carter DO [address] [place] [address] [facility] Start: 09-14-2024 End: 09-14-2024 Professional / ancillary services management 09/14/2024 3:00 PM EDT Ancillary Procedure [facility] [address] [place] [phone] [facility] Start: 09-01-2024 End: 09-01-2024 Patient encounter procedure [facility] Comment on above: Third trimester preg ayanna ([facility]); 28 weeks gestation of ([facility]) Start: 09-01-2024 End: 01-01-2025 US for US [...] mellitus screening Expected: 08/11/2024 (Approximate), Expires: 08/11/2025 [facility] Healthcare Comment on above: Expected: 08/11/2024 (Approximate), Expires: 08/11/2025 Start: 08-11-2024 End: 08-11-2024 Patient encounter procedure [facility] Comment on above: Arrived Start: 07-20-2024 End: 10-20-2024 US Pelvis transvaginal US OB transvaginal Imaging Routine Encounter for screening for cervical length Expected: 07/20/2024, Expires: 10/20/2024 [facility] Work Phone: Comment on above: Expected: 07/20/2024 , Expires: 10/20/2024 Start: 07-20-2024 End: 07-20-2024 Patient encounter procedure 07/20/2024 9:30 AM EDT Routine [facility] [address] [place] [address] Yris Castellanos, [employer] [address] [place] [address] Arrived [facility] Comment on above: Arrived Start: 07-11-2024 End: 07-11-2024 Patient encounter procedure 07/11/2024 11:00 AM EDT Office Visit [facility] [address] [place] [phone] Sarah Kern PA [address] [place] [address] [facility] Start: 07-04-2024 End: 07-04-2024 Patient encounter procedure 07/04/2024 11:10 AM EDT Routine [facility] [address] [place] [phone] Newton Carter DO [address] [place] [address] [facility] Start: 07-04-2024 End: 07-04-2024 Professional / ancillary services management 07/04/2024 10:00 AM EDT Ancillary Procedure [facility] [address] [place] [phone] [facility] Start: 06-20-2024 End: 06-20-2024 Patient encounter procedure 06/20/2024 2:20 PM EDT Office Visit [facility] [address] [place] [address] Alina Schmitz NP [address] [place] [address] [facility] Start: 06-06-2024 End: 06-06-2025 [...] resistance complicating Expected: 05/09/2024 (Approximate), Expires: 08/09/2024 [facility] Healthcare Comment on above: Expected: 05/09/2024 (Approximate), Expires: 08/09/2024 Start: 05-09-2024 End: 05-09-2024 Patient encounter procedure [facility] Comment on above: Arrived Start: 04-07-2024 End: 04-07-2025 ABO/Rh ABO/Rh Lab Routine Missed menses , unspecified gestational age Expected: 04/07/2024 (Approximate), Expires: 04/07/2025 [facility] Comment on above: Expected: 04/07/2024 (Approximate), Expires: 04/07/2025 Start: 04-07-2024 End: 04-07-2025 Blood type and Indirect antibody screen panel - Blood Type and screen Lab Routine Missed menses , unspecified gestational age Expected: 04/07/2024 (Approximate), Expires: 04/07/2025 [facility] Work Phone: Comment on above: Expected: 04/07/2024 (Approximate), Expires: 04/07/2025 Start: 04-07-2024 End: 04-07-2025 Drugs of abuse panel - Urine by Screen method Rapid drug screen, urine Lab Routine , unspecified gestational age Encounter for supervision of normal first in first trimester Expected: 04/07/2024 (Approximate), Expires: 04/07/2025 [facility] Healthcare Comment on above: Expected: 04/07/2024 (Approximate), Expires: 04/07/2025 Start: 01-06-2024 End: 01-06-2024 Patient encounter procedure 01/06/2024 10:40 AM EDT Office Visit [facility] [address] [place] [phone] Sarah Kern PA [address] [place] [place] [address] Arrived [facility] Comment on above: Arrived Start: 11-13-2023 End: 11-13-2023 Patient encounter procedure 11/13/2023 9:30 AM EDT Procedure Visit [facility] Newton Cao DO [address] [place] [address] [place] [address] [facility] Start: 11-08-2023 Influenza vaccination Influenza Vacc ine (#1) [facility] Start: 04-30-2023 [facility] Start: 04-24-2023 [facility] Start: 04-24-2023 End: 04-24-2023 [facility] Start: 04-20-2023 End: 04-20-2024 hCG, quantitative [facility] Work Phone: Comment on above: Ordered: 04/20/2023 Expected: 04/20/2023 (Approximate), Expires: 04/20/2024 Start: 04-13-2023 End: 04-13-2023 Patient encounter procedure 04/13/2023 9:45 AM EST Office Visit [facility] [address] [place] [address] Dawn Huitron MD [address] [place] [address] [facility] Start: 04-13-2023 End: 04-13-2023 Professional / ancillary services management 04/13/2023 9:30 AM EST Ancillary Procedure [facility] [address] [place] [phone] [facility] Bacteria identified in Urine by Culture Urine culture Microbiology Routine Missed menses Ordered: 04/07/2024 [facility] Healthcare Comment on above: Ordered: 04/07/2024 Bacteria identified in Urine by Culture Urine culture Microbiology Routine 34 weeks gestation of ([facility]) Urinary tract infection without hematuria, site unspecified Ordered: 10/10/2024 [facility] Work Phone: Comment on above: Ordered: 10/10/2024 Bacteria identified in Urine by Culture URINE CULTURE, ROUTINE Lab Routine 10/09/2024 4:42 PM EDT [facility] Basophils [#/volume] in Blood by Automated count [facility] Basophils/100 leukocytes in Blood by Automated count [facility] CBC W Auto Different ial panel - Blood CBC and differential Lab Routine Missed menses , unspecified gestational age Ordered: 04/07/2024 [facility] Comment on above: Ordered: 04/07/2024 CHLAMYDIA TRACHOMATI S (GENITO/STI) CHLAMYDIA TRACHOMATIS (GENITO/STI) Lab Routine Exposure to STD Ordered: 06/06/2024 [facility] Comment on above: Ordered: 06/06/2024 Cytology Cervical or vaginal smear or scraping study Pap Smear Pathology and Cytology Routine Well woman exam with routine gynecological exam Ordered: 06/06/2024 [facility] Comment on above: Ordered: 06/06/2024 Eosinophils/100 leukocytes in Blood by Automated count [facility] Erythrocyte distribution width [Ratio] by Automated [facility] Erythrocytes [#/volu me] in Blood [facility] Hematocrit [Volume Fraction] of Blood [facility] Hemoglobin [Mass/volume] in Blood [facility] Hemoglobin A1c/Hemoglobin.total in Blood Hemoglobin A1c Lab Routine Missed menses , unspecified gestational age Ordered: 04/07/2024 [facility] Comment on above: Ordered: 04/07/2024 Hepatitis B virus surface Ag [Presence] in Serum or Plasma by Immunoassay Hepatitis B surface antigen Lab Routine Missed menses , unspecified gestational age Ordered: 04/07/2024 [facility] Comment on above: Ordered: 04/07/2024 Hepatitis C virus Ab [Presence] in Serum or Plasma by Immunoassay Hepatitis C antibody Lab Routine Missed menses , unspecified gestational age Ordered: 04/07/2024 [facility] Comment on above: Ordered: 04/07/2024 HIV-1/HIV-2 antigen/antibody combination immunoassay HIV-1 and HIV-2 antibodies Lab Routine Missed menses , unspecified gestational age Ordered: 04/07/2024 [facility] [facility] Comment on above: Ordered: 04/07/2024 Leukocytes [#/volume ] corrected for nucleated erythrocytes in Blood by Automated coun [facility] Leukocytes [#/volume ] in Blood [facility] Lymphocytes [#/volum e] in Blood by Automated count [facility] Lymphocytes/100 leukocytes in Blood by Automated count [facility] MCH [Entitic mass] b y Automated count [facility] MCHC [Mass/volume] b y Automated count [facility] MCV [Entitic volume] by Automated count [facility] Measurement of gluco se 1 hour after glucose challenge for glucose tolerance test GTT, 1 hour Lab Routine Insulin resistance complicating Ordered: 05/09/2024 [facility] [employer] Work Phone: Comment on above: Ordered: 05/09/2024 Monocytes [#/volume] in Blood by Automated count [facility] Monocytes/100 leukocytes in Blood by Automated count [facility] MYCOPLASMA/UREAPLASM A PANEL MYCOPLASMA/UREAPLASMA PANEL Lab Routine Vaginal discharge Ordered: 04/20/2023 [facility] Comment on above: Ordered: 04/20/2023 Neisseria gonorrhoea e DNA [Presence] in Unspecified specimen by RAMA with probe detection Neisseria gonorrhea DNA probe, direct Lab Routine Exposure to STD Ordered: 06/06/2024 [facility] Comment on above: Ordered: 06/06/2024 Neutrophils [#/volum e] in Blood by Automated count [facility] Neutrophils/100 leukocytes in Blood by Automated count [facility] Nucleated erythrocyt es [Presence] in Blood by Automated count [facility] Patient Education [facility] Work Phone: Patient referral [facility] Work Phone: Platelet mean volume [Entitic volume] in Blood by Automated count [facility] Platelets [#/volume] in Blood [facility] Reagin Ab [Presence] in Serum by RPR RPR Lab Routine Missed menses , unspecified gestational age Ordered: 04/07/2024 [facility] Comment on above: Ordered: 04/07/2024 Rubella antibody, IgG Rubella an tibody, IgG Lab Routine Missed menses , unspecified gestational age Ordered: 04/07/2024 [facility] Comment on above: Ordered: 04/07/2024 SURESWAB(R) ADVANCED VAGINITIS PLUS, TMA SURESWAB(R) ADVANCED VAGINITIS PLUS, TMA Pathology and Cytology Routine Vaginal discharge Ordered: 06/06/2024 [facility] Work Phone: Comment on above: Ordered: 06/06/2024 Payers Date Payer Category Payer Self-pay 2023 [employer] BCBS [id number] 2023 Unknown BCBS BCBS xxxxxx [id number] 2023-Present [phone] [address] [place] [address] [id number] 2023 Unknown [id number] 1998 Unknown [id number] 2.16840.1.311334.3.579.2. 593 1998 Unknown [id number] 2.16.840.1.293309.3.579.2. 593 1998 Unknown [id number] 2.16.840.1.728118.3.579.2. 593 1998 Unknown [id number] 2.16840.1.803220.3.579.2. 593 1998 Unknown [id number] 2.16840.1.159844.3.579.2. 593 1998 Unknown [id number] 2.16.840.1.092963.3.579.2. 593 1998 Unknown [id number] 2.16840.1.891774.3.579.2. 593 1998 Unknown [id number] 2.16.840.1.584811.3.579.2. 593 1998 Unknown [id number] 2.16.840.1.435203.3.579.2. 593 1998 Unknown [id number] 2.16.840.1.598218.3.579.2. 1259 1998 Unknown [id number] 2.16.840.1.251884.3.579.2. 1259 1998 Unknown [id number] 2.16.840.1.136861.3.579.2. 1258 1998 Unknown [id number] 2.16.840.1.027150.3.579.2. 125 1998 Unknown [id number] 2.16.840.1.577062.3.579.2. 1258 1998 Unknown [id number] 2.16.840.1.632105.3.579.2. 125 1998 Unknown [id number] 2.16.840.1.254959.3.579.2. 1258 1998 Unknown [id number] 2.16.840.1.546244.3.579.2. 125 1998 Unknown [id number] 2.16.840.1.708936.3.579.2. 1258 1998 Unknown [id number] 2.16.840.1.273331.3.579.2. 125 1998 Unknown [id number] 2.16.840.1.048368.3.579.2. 1258 1998 Unknown [id number] 2.16.840.1.769464.3.579.2. 1258 1998 Unknown [id number] 2.16.840.1.311359.3.579.2. 1258 1998 Unknown [id number] 2.16.840.1.157504.3.579.2. 1259 1998 Unknown [id number] 2.16.840.1.521718.3.579.2. 1259 1998 Unknown [id number] 2.16.840.1.484971.3.579.2. 1259 1959 Unknown [id number] 1959 Unknown [id number] Unknown [id number] 2.16.840.1.894935.3.579.2. 531 Unknown [id number] 2.16.840.1.406303.3.579.2. 531 Unknown [id number] 2.16.840.1.155077.3.579.2. 531 Social History Date Type Detail Facility [...] [facility] The thought of fitoi ng myself has occurred to me Never [facility] Start: 2000 Sex Assigned At Female F [facility] How often to you hav [...] Facility 04-29-2023 Functional status Patient at Baseline [facility] Work Phone: Mental Status Date Assessment Result Facility 04-29-2023 Cognitive function Cognitive Sta tus Patient at Baseline [facility] Work Phone: Clinical Notes 04-20-2023 to 11-09-2024 Sarah AtlantaPATRICK kern - 11/09/2024 3:00 PM Keiko Carter DO - 11/02/2024 3:20 PM PATRICK Mitchell - 10/25/2024 1:00 PM EDTYris Castellanos NP - 10/17/2024 9:30 AM PATRICK Mitchell - 10/10/2024 10:50 AM EDT Note Date & Type Note Facility 11-09-2024 History of Presen t illness Narrative Reason [...] appearance. She is well-developed and normal weight. HENT: Head: Normocephalic. Cardiovascular: Rate [...] nursing note reviewed. Exam conducted with a real time trader present. Vitals: Estimated body mass index is 36.64 kg/m as calculated from the following: Height as of 01/06/24: 4' 11 . Weight as of this encounter: 181 lb 6.4 oz. BP: 108/68 Patient's last menstrual period was 01/30/2024. ASSESSMENT & PLAN ICD-10-CM 1. Third trimester ([facility]) Z34.93 POCT urinalysis dipstick manually resulted 2. 38 weeks gestation of ([facility]) Z3A.38 POCT urinalysis dipstick manually resulted Return OB: Patient presents today for a routine obstetrics appointment. Patient is currently 38w2d . Patient states she is doing well [...] week for routine OB appointment. Documented by Rachael Heard LPN on behalf of: PATRICK Cowart documented in this encounter [facility] 11-02-2024 History of Presen t illness Narrative Reason [...] nursing note reviewed. Exam conducted with a real time trader present. Vitals: Estimated body mass index is 35.95 kg/m as calculated from the following: Height as of 01/06/24: 4' 11 . Weight as of this encounter: 178 lb. BP: 110/72 Patient's last menstrual period was 01/30/2024. ASSESSMENT & PLAN ICD-10-CM 1. Third trimester ([facility]) Z34.93 POCT urinalysis dipstick manually resulted 2. 37 weeks gestation of ([facility]) Z3A.37 Return OB: Patient presents today for a routine obstetrics appointment. Patient is currently 37w2d . Patient states she is doing well [...] Newton Carter DO documented in this encounter [facility] 10-25-2024 History of Presen t illness Narrative [...] nursing note reviewed. Exam conducted with a real time trader present. Vitals: Estimated body mass index is 35.55 kg/m as calculated from the following: Height as of 01/06/24: 4' 11 . Weight as of this encounter: 176 lb. BP: 100/70 Patient's last menstrual period was 01/30/2024. ASSESSMENT & PLAN ICD-10-CM 1. 36 weeks gestation of ([facility]) Z3A.36 CULTURE, GROUP B STREP WITH SUSCEPTIBLITY POCT urinalysis dipstick manually resulted 2. Third trimester ([facility]) Z34.93 CULTURE, GROUP B STREP WITH SUSCEPTIBLITY [...] of: PATRICK Cowart documented in this encounter [facility] 10-17-2024 History of Presen t [...] nursing note reviewed. Exam conducted with a real time trader present. Vitals: Estimated body mass index is 35.35 kg/m as calculated from the following: Height as of 24: 4' 11 . Weight as of this encounter: 175 lb. BP: 120/72 Patient's last menstrual period was 01/30/2024. ASSESSMENT & PLAN ICD-10-CM 1. Third trimester ([facility]) Z34.93 CANCELED: POCT urinalysis dipstick manually resulted 2. 35 weeks gestation of ([facility]) Z3A.35 Return OB: Patient presents today for [...] Newton Carter DO documented in this encounter [facility] 10-10-2024 History of Presen t [...] ASSESSMENT & PLAN ICD-10-CM 1. Third trimester ([facility]) Z34.93 POCT urinalysis dipstick manually resulted 2. 34 weeks gestation of ([facility]) Z3A.34 Urine culture 3. Urinary tract infection [...] of: PATRICK Cowart documented in this encounter [facility] 09-26-2024 History of Presen t [...] nursing note reviewed. Exam conducted with a real time trader present. Vitals: Estimated body mass index is 34.29 kg/m as calculated from the following: Height as of 01/06/24: 4' 11 . Weight as of this encounter: 169 lb 12 oz. BP: 108/74 Patient's last menstrual period was 01/30/2024. ASSESSMENT & PLAN ICD-10-CM 1. Third trimester ([facility]) Z34.93 POCT urinalysis dipstick manually resulted 2. 32 weeks gestation of ([facility]) Z3A.32 Return OB: Patient presents [...] Newton Carter DO documented in this encounter [facility] 09-14-2024 History of Presen t [...] nursing note reviewed. Exam conducted with a real time trader present. Vitals: Estimated body mass index is 33.93 kg/m as calculated from the following: Height as of 01/06/24: 4' 11 . Weight as of this encounter: 168 lb. BP: 110/74 Patient's last menstrual period was 01/30/2024. ASSESSMENT & PLAN ICD-10-CM 1. Third trimester ([facility]) Z34.93 POCT urinalysis dipstick manually resulted 2. 30 weeks gestation of ([facility]) Z3A.30 POCT urinalysis dipstick manually resulted Return [...] Newton Carter DO documented in this encounter [facility] 09-01-2024 History of Presen t [...] ASSESSMENT & PLAN ICD-10-CM 1. Third trimester ([facility]) Z34.93 POCT urinalysis dipstick manually resulted 2. 28 weeks gestation of ([facility]) Z3A.28 3. size inconsistent with dates ([facility]) O26.849 magnesium oxide (Mag-Ox) 400 MG tablet [...] of: PATRICK Cowart documented in this encounter [facility] 08-11-2024 History of Presen t [...] Newton Carter DO documented in this encounter [facility] 07-20-2024 History of Presen t [...] nursing note reviewed. Exam conducted with a real time trader present. Vitals: Estimated body mass index is [...] Yris Castellanos NP documented in this encounter [facility] 06-06-2024 History of Presen t [...] nursing note reviewed. Exam conducted with a real time trader present. Vitals: Estimated body mass index is [...] of: PATRICK Cowart documented in this encounter [facility] 05-09-2024 History of Presen t [...] nursing note reviewed. Exam conducted with a real time trader present. Vitals: Estimated body mass index is [...] or undercooked meat, and stay away from [facility]. Patient has been consulted regarding any [...] Newton Carter DO documented in this encounter [facility] 04-07-2024 History of Presen t [...] or undercooked meat, and stay away from [facility]. Patient has also been advised to [...] Cayla Mayorga MA documented in this encounter [facility] 01-06-2024 History of Presen t [...] after having a D&C performed at [facility] with Dr. Carter. 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 History of Present Illness Chief [...] negative unless noted below or in HPI [facility] Medical History (Updated 04/29/23 @ 22:08 by [...] mls @ 125 mls/hr IV .Q8H [facility] Stop: 04/28/24 16:59 Last Admin: 04/29/23 17:50 Dose: 125 mls/hr Cefazolin Sodium (Ancef) 2 gm in 50 mls @ 100 mls/hr IV Q8H [facility] Last Admin: 04/29/23 17:51 Dose: 100 mls/hr Oxytocin 40 unit/ Lactated (Ringer's) 504 mls @ 150 mls/hr IV .Q3H22M ONE; Protocol Stop: 04/30/23 02:21 Misoprostol (Misoprostol 200 Mcg Tablet) 800 mcg VAGINAL Q4H [facility] Stop: 04/30/23 02:31 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 04/29/23 20:27: Blood Type Recheck A Positive 04/29/23 17:45: HCG, Quant 3230.00 04/29/23 17:31: Corrected WBC 13.6 H, Uncorrected WBC Count 13.6 H, RBC 4.93, Hgb 13.3, Hct 39.8, MCV 80.8, MCH 27.0, MCHC 33.5, RDW 13.9, Plt Count 369, MPV 7.0, Neut % (Auto) 77.6, Lymph % (Auto) 17.0, Kleberg % (Auto) 4.0, Eos % (Auto) 1.1, Baso % (Auto) 0.3, Nucleat RBC Rel Count 0.2, Neut # (Auto) 10.6 H, Lymph #(Auto) 2.3, Kleberg # (Auto) 0.5, Eos # (Auto) 0.2, Baso # (Auto) 0.0, Blood Type APositive, Antibody Screen Negative Diagnostic Imaging Comments: 2.1 cm uterine complex with vascularization, essentially unchanged from yesterday [employer] SERVICER HELPER - A/P (1) Vaginal bleeding: Plan Failed Cytotec evacuation of uterine tissue Suction D&C D&C Documented By: CHUCK Astorga 04/29/2328 08 Signed By: <Electronically signed by CHUCK Huitron> 04/30/23 0702 [facility] Work Phone: [phone]) 800-785702-12-2024 History of Present illness Narrative* Dawn Huitron [...] [facility] Work Phone: Evaluation note* Diagnosis Onset Date Resolution Status Vaginal bleeding acute [facility] Work Phone: Evaluation note* Diagnosis Encounter [...] state, incidental [facility] Diagnosis Third trimester ([facility]) state, incidental 37 weeks gestation of ([facility]) [facility] Diagnosis Third trimester ([facility]) state, incidental 38 weeks gestation of ([facility]) [facility] Additional Instructions SPECIAL INSTRUCTIONS Call for heavy bleeding FOLLOW UP Thursday [facility] Work Phone: Summary Purpose Family History [...] content) DATE CREATED AUTHOR 10/08/2020 [facility] pital DATE CREATED AUTHOR AUTHOR'S ORGANIZ ATION 11/23/2023 [facility] DATE CREATED AUTHOR AUTHOR'S ORGANIZ ATION 11/11/2024 [facility] Special[facility] EPIC Reason for Visit (unrecogniz ed section and content) Reason Comments Care Reason Comments Post-op Visit Reason Comments Amenorrhea Reason Comments Routine Visit Care Teams (unrecognized sec tion and content) Senior Environmental Technician Relationship Specialty Start Date End Date Unallocated, Jodee Provider [facility] [place] [address] PCP - General Family Medicine 04/13/23 Team [...] 13, 2023 End: November 13, 2023 Senior Environmental Technician Relationship Specialty Start Date End Date Unallocated, Jodee Silverio MD [facility] [place] [address] [place] [address] PCP - General Family Medicine 04/13/23 Senior Environmental Technician Relationship Specialty Start Date End Date Unallocated, Jodee Silverio [place] [address] PCP - General Family Medicine 04/13/23 Senior Environmental Technician Relationship Specialty Start Date End Date Unallocated, Jodee Silverio MD [facility] [place] [address] PCP - General Family Medicine 04/13/23 Senior Environmental Technician Relationship Specialty Start Date End Date Unallocated, Jodee Silverio [place] [address] PCP - General Family Medicine 04/13/23 Senior Environmental Technician Relationship Specialty Start Date End Date Unallocated, Jodee Silverio [place] [address] PCP - General Family Medicine 04/13/23 Senior Environmental Technician Relationship Specialty Start Date End Date Angel Seay MD [address] [place] [address] PCP - General Family Medicine 01/26/24 Alina Schmitz NP [address] [place] [address] Nurse Practitioner Family Medicine 01/26/24 Senior Environmental Technician Relationship Specialty Start Date End Date Angel Seay MD [address] [place] [address] PCP - General Family Medicine 01/26/24 Alina Schmitz NP [address] [place] [address] Nurse Practitioner Family Medicine 01/26/24 Senior Environmental Technician Relationship Specialty Start Date End Date Angel Seay MD [address] [place] [address] PCP - General Family Medicine 01/26/24 Alina Schmitz NP [address] [place] [address] Nurse Practitioner Family Medicine 01/26/24 Senior Environmental Technician Relationship Specialty Start Date End Date Angel Seay MD [address] [place] [address] PCP - General Family Medicine 01/26/24 Alina Schmitz NP [address] [place] [address] Nurse Practitioner Family Medicine 01/26/24 Senior Environmental Technician Relationship Specialty Start Date End Date Angel Seay MD [address] [place] [address] PCP - General Family Medicine 01/26/24 Alina Schmitz NP [address] [place] [address] Nurse Practitioner Family Medicine 01/26/24 Senior Environmental Technician Relationship Specialty Start Date End Date Angel Seay MD [address] [place] [address] PCP - General Family Medicine 01/26/24 Alina Schmitz NP [address] [place] [address] Nurse Practitioner Family Medicine 01/26/24 Senior Environmental Technician Relationship Specialty Start Date End Date Angel Seay MD [address] [place] [address] PCP - General Family Medicine 01/26/24 Alina Schmitz NP [address] [place] [address] Nurse Practitioner Family Medicine 01/26/24 Senior Environmental Technician Relationship Specialty Start Date End Date Angel Seay MD [address] [place] [address] PCP - General Family Medicine 01/26/24 Alina Schmitz NP [address] [place] [address] Nurse Practitioner Family Medicine 01/26/24 Senior Environmental Technician Relationship Specialty Start Date End Date Angel Seay MD [address] [place] [address] PCP - General Family Medicine 01/26/24 Alina Schmitz NP [address] [place] [address] Nurse Practitioner Family Medicine 01/26/24 Senior Environmental Technician Relationship Specialty Start Date End Date Angel Seay MD [address] [place] [address] PCP - General Family Medicine 01/26/24 Alina Schmitz NP [address] [place] [address] Nurse Practitioner Family Medicine 01/26/24 Senior Environmental Technician Relationship Specialty Start Date End Date Angel Seay MD [address] [place] [address] PCP - General Family Medicine 01/26/24 Alina Schmitz NP [address] [place] [address] Nurse Practitioner Family Medicine 01/26/24 Senior Environmental Technician Relationship Specialty Start Date End Date Angel Seay MD [address] [place] [address] PCP - General Family Medicine 01/26/24 Alina Schmitz NP [address] [place] [address] Nurse Practitioner Family Medicine 01/26/24 Senior Environmental Technician Relationship Specialty Start Date End Date Angel Seay MD [address] [place] [address] PCP - General Family Medicine 01/26/24 Alina Schmitz NP [address] [place] [address] Nurse Practitioner Family Medicine 01/26/24 Senior Environmental Technician Relationship Specialty Start Date End Date Angel Seay MD [address] [place] [address] PCP - General Family Medicine 01/26/24 Alina Schmitz NP [address] [place] [address] Nurse Practitioner Family Medicine 01/26/24 Senior Environmental Technician Relationship Specialty Start Date End Date Angel Seay MD [address] [place] [address] PCP - General Family Medicine 01/26/24 Alina Schmitz NP [address] [place] [address] Nurse Practitioner Family Medicine 01/26/24 Senior Environmental Technician Relationship Specialty Start Date End Date Angel Seay MD PCP - General Family Medicine 01/26/24 Alina Schmitz NP Nurse Practitioner Family Medicine 01/26/24 Senior Environmental Technician Relationship Specialty Start Date End Date Angel Seay MD PCP - General Family Medicine 01/26/24 Alina Schmitz NP Nurse Practitioner Family Medicine 01/26/24 Goals (unrecognized [...] BE BASED ON THE PRIMARY CLINICAL RECORDS. [employer] [facility] provides no warranty or guarantee of the accuracy or completeness of information in this document.
[2024-11-13 08:52] LABS: Glucose Urine UA NEGATIVE (NEGATIVE)
[2024-11-13 09:01] LABS: Hematocrit 33.2 % (36.0-48.0); Hemoglobin 10.6 g/dL (12.0-16.0); Mean Corpuscular HGB Conc 31.9 g/dL (29.9-35.2); Mean Corpuscular Hemoglobin 22.7 pg (26.7-34.0); Mean Corpuscular Volume 71.1 fL (81.0-99.0); Platelet Count 269 10^3/uL (150-450); Red Blood Count 4.67 10^6/uL (4.20-5.40); White Blood Count 10.6 10^3/uL (4.0-11.0)
[2024-11-13 09:11] LABS: Cannabinoid Screen Urine NEGATIVE (NEGATIVE); Methamphetamines Screen Urine NEGATIVE (NEGATIVE); Tricyclic Antidepressant Urine NEGATIVE (NEGATIVE)
[2024-11-13] MEDS: 0.9 % SODIUM CHLORIDE 1,000 ML 125 ML IV (09:23)
[2024-11-13] MEDS: LIDOCAINE HCL 1% 200 MG/20 ML MDV INJ (10:58)
[2024-11-13] MEDS: OXYTOCIN/0.9 % SODIUM CHLORIDE 20 UNITS/1,000 ML PLAST..BAG 125 UNIT IV (10:58)
--- NOTE | 2024-11-13 11:02 | PM.OBHP ---
OB - H&P: HPI History of Present Illness Chief complaint: BACK/PELVIC PAIN : 5 Para: 1 Gestational age based on last menstrual period: 38 weeks and 6 days Narrative: Patient presents with complaint of contractions that started earlier this morning. She denies rupture membranes or vaginal bleeding. History of Present Dating criteria: LMP confirmed by 1st trimester US care: good care Ultrasounds: normal 1st trimester US and normal mid trimester US Labs Blood type: A (+) positive Rubella: immune RPR/VDLR: nonreactive GBS status: negative HBsAG: negative Review of Systems ROS Status of ROS: 10 or more systems reviewed and unremarkable except as noted in history and below [facility] Medical History (Updated 11/13/24 @ 11:11 by Jose Warren MD) Upper respiratory infection (11/10/23) ?J06.9 - Acute upper respiratory infection, unspecified (ICD-10) Anemia ?D64.9 - Anemia, unspecified (ICD-10) Migraine ?G43.909 - Migraine, unspecified, not intractable, without status migrainosus (ICD-10) Molar ?O02.0 - Blighted ovum and nonhydatidiform mole (ICD-10) Surgical History History of dilation and curettage ?Z98.890 - Other specified postprocedural states (ICD-10) Family History Other Cancer Family history of diabetes mellitus Family history of hypertension Social History Within the past year, how often did you have a drink containing alcohol: never Score interpretation: A score less than 3 is consistent with normal alcohol consumption. Smoking status: Never smoker Non-prescribed substance use: denies use Highest level of school completed/degree received: high school graduate Meds Home Medications and Allergies Home Medications ?Medication ?Instructions ?Recorded ?Confirmed ?Type doxycycline hyclate 100 mg capsule 100 mg PO BID 7 days #14 caps 11/13/23 Rx ibuprofen 800 mg tablet 800 mg PO Q8H PRN pain 14 days #40 11/13/23 Rx tabs Allergies Allergy/AdvReac Type Severity Reaction Status Date / Time No Known Drug Allergies Allergy Verified 11/12/23 08:22 Exam Constitutional Vital Signs, click to edit/add: Last Vital Signs Temp 97.5 F L 11/13/24 10:53 Pulse 101 H 11/13/24 10:48 BP 125/58 11/13/24 10:48 Documenting provider has reviewed patient's vital signs: yes Common normals: no apparent distress, average body habitus, oriented x3, no limitations, healthy appearing, alert and well nourished General appearance: cooperative, well kempt and well developed Orientation/consciousness: Yes awake, Yes oriented to person, Yes oriented to place and Yes oriented to time HENMT Common normals: normocephalic, head/scalp atraumatic and hearing grossly normal bilaterally Respiratory Common normals: normal respiratory effort Effort & inspection: able to speak in complete sentences Cardio Common normals: regular rate and regular rhythm GI Inspection: normal to inspection Palpation: other (Gravid uterus with fundal height 36 cm with contractions every 3 minutes) Back & Pelvis Pelvis: other ( cervix was completely effaced 8 cm dilated membranes bulging -1 station ve) Extremity Common normals: normal to inspection, no calf tenderness and no pedal edema Results Labs Labs: Short CBC 11/13/24 Range/Units 08:45 WBC 10.6 (4.0-11.0) 10^3/uL Hgb 10.6 L (12.0-16.0) g/dL Hct 33.2 L (36.0-48.0) % Plt Count 269 (150-450) 10^3/uL Urine 11/13/24 Range/Units 08:35 Urine Color Lt. yellow (YELLOW) Urine Clarity Clear (CLEAR) Urine pH 7.5 (5.0-9.0) Ur Specific [place] 1.025 (1.005-1.025) Urine Protein Negative (NEG/TRACE) mg/dL Urine Glucose (UA) Negative (NEGATIVE) mg/dL OB - A/P Assessment and Plan (1) Anemia: Assessment and Plan: Intrauterine at 38 weeks and 6 days in active labor. Will admit patient and monitor through her labor progress with expectation of normal vaginal delivery. Qualifiers: Anemia type: iron deficiency Iron deficiency anemia type: other iron deficiency Qualified Code(s): D50.8 - Other iron deficiency anemias Plan Intrauterine at 38 weeks and 6 days in active labor. Will admit patient and monitor through labor progress in anticipation of vaginal delivery.
--- NOTE | 2024-11-13 11:12 | PM.OBPRCVD ---
Procedure Procedure: Normal spontaneous vaginal delivery Intrapartal events: None Delivery augmentation: rupture of membranes Delivery monitor: external FHT and external uterine Route of delivery: L&D Laceration Description: perineal - 2nd degree Delivery repair: Chromic Estimated blood loss (mL): 250 Anesthesia type: Local Disposition: floor Complications: None Narrative: Patient progressed to completely effaced over completely dilated and and proceeded to deliver spontaneously vaginally a female in the left occiput anterior position. Infant was placed on the mother's chest and after a minute the cord was clamped and cut. Next she was examined there was noted to be a second-degree perineal tear that was repaired using 2-0 chromic. 1% Xylocaine was used for local anesthesia. Following this placenta was delivered spontaneously intact. On examination afterwards there were no other tears or lacerations. The patient tolerated the delivery well. Delivery date: 11/13/24 Gender: female presentation: vertex Placental delivery description: Spontaneous cord description: 3 Vessels and Nuchal Cord heart rate - 1 minute: 100 bpm or Greater respiratory effort - 1 minute: Spontaneous/Strong Cry muscle tone - 1 minute: Active Movement reflex response - 1 minute: Prompt Response color - 1 minute: Pallor or Cyanosis total score - 1 minute: 8 heart rate - 5 minute: 100 bpm or Greater respiratory effort - 5 minute: Spontaneous/Strong Cry muscle tone - 5 minute: Active Movement reflex response - 5 minute: Prompt Response color - 5 minute: Bluish Hands or Feet total score - 5 minute: 9
[2024-11-13] MEDS: BENZOCAINE/MENTHOL 85 GRAM SPRAY BOTTLE 1 APPLIC TOPICAL (12:14)
[2024-11-13] MEDS: GLYCERIN/WITCH HAZEL PADS 1 PAD TOPICAL (12:14)
[2024-11-13] MEDS: IBUPROFEN 600 MG TABLET PO ×2 (12:15→19:43)
[2024-11-14] MEDS: IBUPROFEN 600 MG TABLET PO ×3 (00:02→16:32)
[2024-11-14] MEDS: GLYCERIN/WITCH HAZEL PADS 1 PAD TOPICAL (02:00)
[2024-11-14 06:12] LABS: Hematocrit 27.0 % (36.0-48.0); Hemoglobin 8.3 g/dL (12.0-16.0); Immature Granulocytes Abs Auto 0.07 10^3/uL (0.00-0.03); Immature Granulocytes Pct Auto 0.6 % (0.0-0.5); Lymphocytes Absolute Auto 2.7 10^3/uL (1.2-3.8); Mean Corpuscular HGB Conc 30.7 g/dL (29.9-35.2); Mean Corpuscular Hemoglobin 22.3 pg (26.7-34.0); Mean Corpuscular Volume 72.4 fL (81.0-99.0); Platelet Count 264 10^3/uL (150-450); Red Blood Count 3.73 10^6/uL (4.20-5.40); White Blood Count 12.5 10^3/uL (4.0-11.0)
[2024-11-14 10:00] VITALS: TEMP 37.2
[2024-11-14] MEDS: DOCUSATE SODIUM 100 MG CAPSULE PO (10:23)
[2024-11-14 10:25] VITALS: BP 122/74; PULSE 105; TEMP 36.3
--- NOTE | 2024-11-14 12:04 | P.OBPN_ITS ---
OB - PN: Subj Subjective Patient comments: no complaints and pain well controlled [place] status: doing well Exam Constitutional Vital Signs, click to edit/add: Last Vital Signs Temp 97.3 F L 11/14/24 10:25 Pulse 105 H 11/14/24 10:25 Resp 16 11/13/24 23:40 BP 122/74 11/14/24 10:25 O2 Del Method Room Air 11/13/24 23:40 Documenting provider has reviewed patient's vital signs: yes Common normals: no apparent distress Respiratory Common normals: normal respiratory effort and clear to auscultation bilaterally Cardio Common normals: regular rate and regular rhythm GI Common normals: Normal to inspection, nondistended, normoactive bowel sounds present Extremity Common normals: no clubbing, cyanosis or edema and no calf tenderness Results Labs Labs: Short CBC 11/14/24 Range/Units 05:55 WBC 12.5 H (4.0-11.0) 10^3/uL Hgb 8.3 L (12.0-16.0) g/dL Hct 27.0 L (36.0-48.0) % Plt Count 264 (150-450) 10^3/uL OB - PN: A/P Assessment and Plan (1) Anemia: Qualifiers: Anemia type: iron deficiency Iron deficiency anemia type: other iron deficiency Qualified Code(s): D50.8 - Other iron deficiency anemias Plan - Vaginal Delivery day: 1 Plan: routine care, discharge home and follow up 6 weeks Time Spent with Patient Time: Total time spent is greater than 50% in coordination of care (as documented) at patient's floor/unit and/or counseling patient: Total time spent with greater than 50% in coordination of care (as documented) at patient's floor/unit and/or counseling patient: less than 15 minutes
== END 2024-11-14 17:30 | disposition home or self-care (01) | DRG 807 ==
PROVIDERS: Admitting Provider Family Medicine Addiction Medicine; PCP Nurse Practitioner; Visit Provider Family Medicine Addiction Medicine
DX: O99.02 Anemia complicating childbirth (principal); Z37.0 Single live birth; D50.8 Other iron deficiency anemias; O70.1 Second degree perineal laceration during delivery; O69.81X0 Labor and delivery complicated by cord around neck, without compression, not applicable or unspecified; Z3A.38 38 weeks gestation of pregnancy
CPT/HCPCS: 36415; 59025; 59050; 80307; 81003; 85025; 85027; 86850; 86900; 86901; J2300